=== PATIENT | male | born 1960 | race Caucasian/White ===

== ENCOUNTER 2020-10-10 08:02 | Outpatient (RCR) | payer SELFPAY | END 2020-10-10 23:59 | disposition home or self-care (01) | LOC: ANHAUDIO 08:02 | PROVIDERS: PCP Physician Assistant; Visit Provider Physician Assistant | DX: Z46.1 Encounter for fitting and adjustment of hearing aid (principal) | CPT/HCPCS: 92592 ==

== ENCOUNTER 2021-03-02 11:01 | Observation (INO) | payer MEDICARE, SELFPAY ==
--- NOTE | ~2021-03-02 | XR_ITS ---
EXAMINATION: XR chest 2V EXAM DATE: 03/02/2021 11:53 INDICATION: Chronic cough, hiccups. Torso pain. TECHNIQUE: Frontal and lateral projections of the chest obtained and reviewed. Comparison is made to prior examination from 11/29/2017. FINDINGS: Subsegmental airspace disease in the right midlung zone, right lower lung zone, segmental i n the left lower lobe most likely multifocal pneumonia. A followup chest x-ray in 3-4 weeks, and to r esolution, should be obtained to exclude possibility of underlying cancer. There is some chronic hy perinflation. No pneumothorax or pleural effusion. Cardiomediastinal silhouette is normal. There are no osseous abnormalities identified. IMPRESSION: Bilateral airspace disease most likely multifocal pneumonia. Follow-up in 2-4 weeks to ex clude cancer. If patient does not have pneumonia clinically then consider CT chest at this time. Reviewed, dictated and finalized at location A. IMPRESSION: Bilateral airspace disease most likely multifocal pneumonia. Follow -up in 2-4 weeks to exclude cancer. If patient does not have pneumonia clinical ly then consider CT chest at this time.
--- NOTE | ~2021-03-02 | XR_ITS ---
MODIFIED ESOPHAGRAM HISTORY: Ammonia. Evaluate for aspiration. TECHNIQUE: Modified barium esophagram was performed by speech pathologist under radiologist fluorosco pic guidance. This was recorded on tape. The exam was reviewed on 03/03/2021 10:26 CDT. The DAP for this procedure was 0.6-7 Gycm2. Fluoroscopy time is 0.9 minutes. FINDINGS: Lateral projection of the cervical spine demonstrates normal alignment. There is normal s wallowing function without evidence for aspiration or penetration.. IMPRESSION: 1: Normal swallowing function without aspiration or penetration. 2: Please refer to speech pathologist report for additional detail. Reviewed, dictated and finalized at location A.
--- NOTE | ~2021-03-02 | CT_ITS ---
EXAMINATION: CT abdomen pelvis w con EXAM DATE: 03/02/2021 12:24 INDICATION: Diverticulitis. TECHNIQUE: Spiral CT of the abdomen and pelvis was performed following intravenous injection of 100 m L Omnipaque 350. Axial, coronal and sagittal images of the abdomen and pelvis were reviewed. The do se-length product (DLP) for this examination was 220.06 mGy-cm. The exposure was tailored according to patient size (auto mA exposure control), and iterative reconstruction (ASIR) was used as additiona l dose reduction technique. There is no prior study for comparison. FINDINGS: Subsegmental airspace disease in the right middle lobe, lingula, right lower lobe and more segmental airspace disease in the left lower lobe, with smaller regions in other left lower lobe segm ents. Appearance most consistent with multifocal pneumonia. Cryptogenic organizing pneumonia or other chronic process also possible. Small liver cysts and splenic granulomas. The liver, spleen, adrenal glands and pancreas are otherwi se unremarkable. Gallbladder is unremarkable. No biliary obstruction. Portal and splenic veins are patent. Kidneys enhance symmetrically. There is no hydronephrosis. Bilateral renal cysts up to 2.5 cm on the right. The prostate is unremarkable. The bladder is unremarkable. There is no retroperi toneal or pelvic lymphadenopathy. There is mild scattered arteriosclerotic disease. The appendix is normal. There is mild sigmoid colonic diverticulosis. There is no adjacent inflammat ory change to suggest diverticulitis. The stomach and small bowel are unremarkable. There is expect ed amount of colonic stool. No free intraperitoneal gas. The heart is normal in size. There are no pericardial or pleural effusions. Bilateral hip chronic avascular necrosis, but with intact fem oral head contours. IMPRESSION: 1. Mild sigmoid diverticulosis. No acute findings. 2. Multifocal regions of confluent basilar airspace disease, probably pneumonia. Cryptogenic organiz ing pneumonia or other chronic process not excludable. Correlate with CT chest exam which has been or dered. Reviewed, dictated and finalized at location A. IMPRESSION: 1. Mild sigmoid diverticulosis. No acute findings. 2. Multifocal regions of confluent basilar airspace disease, probably pneumoni a. Cryptogenic organizing pneumonia or other chronic process not excludable. Co rrelate with CT chest exam which has been ordered.
--- NOTE | ~2021-03-02 | CT_ITS ---
EXAMINATION: CT diagnostic chest wo con EXAM DATE: 03/02/2021 13:02 INDICATION: Abnormal chest x-ray. TECHNIQUE: Spiral CT of the chest without contrast. Axial, coronal and sagittal images of the chest were reviewed. Coronal maximum intensity pixel images of chest reviewed. The dose-length product ( DLP) for this examination was 173.00 mGy-cm. The exposure was tailored according to patient size (au to mA exposure control), and iterative reconstruction (ASIR) was used as additional dose reduction te chnique. Comparison is made to prior examination from 06/19/2019. FINDINGS: Interval development of multifocal airspace disease in the right upper lobe anteriorly, ri ght middle lobe, right lower lobe, lingula and left lower lobe appearance most consistent with multif ocal pneumonia. Moderate hyperinflation and emphysema. There are no pleural or pericardial effusions . Tracheobronchial tree is patent. There is no mediastinal, hilar or axillary lymphadenopathy. There is no pneumothorax. Heart normal in size. There is mild to moderate coronary arterial calci fication, arterial sclerosis. Upper abdomen is unremarkable. There is moderate thoracic spondylosi s without osteoblastic or osteolytic lesions identified. IMPRESSION: 1. Multifocal airspace disease most likely pneumonia. Cryptogenic organized pneumonia or other chron ic process not excludable. Consider treatment, follow-up chest x-ray in 2-4 weeks. 2. Moderate emphysema and hyperinflation. Reviewed, dictated and finalized at location A. IMPRESSION: 1. Multifocal airspace disease most likely pneumonia. Cryptogenic organized pn eumonia or other chronic process not excludable. Consider treatment, follow-up chest x-ray in 2-4 weeks. 2. Moderate emphysema and hyperinflation.
[2021-03-02 11:17] VITALS: BP 113/65; PULSE 89; RESP 20; TEMP 37.2; O2SAT 97
[2021-03-02 11:59] LABS: Basophils Absolute Auto 0.1 K/mm3 (0.0-0.1); Basophils Percent Auto 0.5 % (0.2-1.2); Eosinophils Absolute Auto 0.3 K/mm3 (0-0.3); Eosinophils Percent Auto 2.4 % (0-4.4); Hematocrit 35.3 % (42.0-52.0); Hemoglobin 11.5 g/dL (14.0-18.0); Immature Granulocyte Absolute 0.06 K/mm3 (0.00-0.031); Immature Granulocyte Percent A 0.4 % (0-0.5); Lymphocytes Absolute Auto 1.67 K/mm3 (0.9-3.2); Mean Corpuscular HGB Conc 32.6 g/dl (32-36); Mean Corpuscular Volume 85.9 fl (80-100); Mean Platelet Volume 10.3 fl (7.4-10.4); Monocytes Percent Auto 7.2 % (2.6-8.5); Neutrophils Absolute Auto 10.8 K/mm3 (1.3-6.7); Neutrophils Percent Auto 77.5 % (45.5-73.1); Platelet Count Result 383 k/mm3 (150-375); Red Blood Count 4.11 M/mm3 (4.6-6.20); White Blood Count 13.9 K/mm3 (4.5-10.0)
[2021-03-02] MEDS: PROMETHAZINE HCL 25 MG/ML AMPUL 12.5 MG IV PUSH (12:01)
[2021-03-02] MEDS: FAMOTIDINE 20 MG/2 ML VIAL IV PUSH ×2 (12:01→20:05)
[2021-03-02] MEDS: SODIUM CHLORIDE 0.9% IV 1,000 ML 999 ML IV CONT (12:02)
[2021-03-02 12:06] LABS: Alanine Aminotransferase 13 U/L (4-50); Albumin Level 3.6 g/dL (3.5-5.1); Alkaline Phosphatase 54 U/L (38-126); Anion Gap 8 mmol/L (8-16); Aspartate Amino Transferase 20 U/L (17-59); Bilirubin,Total 0.2 mg/dL (0.2-1.3); Blood Urea Nitrogen 9 mg/dL (9-20); Calcium 9.5 mg/dL (8.4-10.2); Carbon Dioxide 25 mmol/L (22-30); Chloride 104 mmol/L (98-107); Estimated CRCL calculation 70 ml/min; Estimated Glomerular Filt Rate > 60; Glucose 103 mg/dL (75-110); Lipase 74 U/L (23-300); Potassium 4.2 mmol/L (3.4-5.0); Sodium 137 mmol/L (137-145)
[2021-03-02] MEDS: chlorproMAZINE HCL 25 MG TABLET PO (12:28)
[2021-03-02 12:47] LABS: Add Urine Microscopic? NO; Appearance Urine Clear (Clear); Bilirubin Urine Negative (Negative); Blood Urine Negative (Negative); Color Urine Straw (Yellow); Glucose Urine UA Negative (Negative); Ketones Urine Negative (Negative); Leukocyte Esterase Ur Negative LEU/UL (Negative); Nitrate Urine Negative (Negative); Protein Urine Negative (Negative); Specific Grav Ur 1.012 (1.001-1.035); Urobilinogen Urine Negative mg/dL (<2.0)
--- NOTE | 2021-03-02 14:06 | ED.GENADULT ---
HPI - General Adult General Chief complaint: Nausea/Vomiting/Diarrhea Stated complaint: hiccups Time Seen by Provider: 03/02/21 11:22 Source: patient, family and RN notes reviewed Mode of arrival: ambulatory Limitations: no limitations History of Present Illness HPI narrative: Patient is a 60-year-old male who presents with cough and nausea and vomiting over the last 5 days roughly patient with history of tobacco abuse notes that he is having trouble keeping any p.o. intake down patient notes aching of the abdomen and chest from coughing and vomiting patient on arrival does not appear distressed patient denies sick contacts patient notes that he has been vaccinated for Covid Related Data Home Medications Medication Instructions Recorded Confirmed budesonide-formoterol [Symbicort] INHALATION 03/02/21 hydrochlorothiazide 03/02/21 03/02/21 losartan 03/02/21 montelukast mg 03/02/21 omeprazole 03/02/21 pravastatin 03/02/21 Allergies Allergy/AdvReac Type Severity Reaction Status Date / Time No Known Allergies Allergy Verified 03/02/21 11:23 Review of Systems Review of Systems: All systems reviewed & are unremarkable except as noted in HPI and below PMFSH Past Medical History Medical History (Updated 03/02/21 @ 14:12 by Hair Negron PA-C) COPD (chronic obstructive pulmonary disease) Hyperlipidemia Hypertension Social History Social History (Updated 03/02/21 @ 14:10 by Hair Negron PA-C) Smoking status: Current every day smoker Gender identity (if verbalized by the patient): Male Exam Narrative: Exam Narrative: GENERAL: Well-appearing, well-nourished, and in no acute distress. HEAD: Normocephalic, atraumatic. EYES: PERRLA and EOMI. ENT: Nares clear, no rhinorrhea or epistaxis. Mucous membranes moist. Oropharynx without tonsillar hypertrophy exudate or other lesions. NECK: Supple. No adenopathy or masses. CHEST: Clear to auscultation. No respiratory distress. No wheezes rales or rhonchi HEART: Regular rate and rhythm. No murmur heard. Normal peripheral pulses. ABDOMEN: Soft, generalized tenderness of the abdomen, nondistended, normal active bowel sounds. EXTREMITIES: Normal range of motion. No edema. SKIN: Warm, dry, no rash. NEURO: No focal deficits. Alert and oriented x3. Cranial nerves II through XII grossly intact PSYCH: Normal mood and affect. Course Course Emergency Course: Patient in the room at this time aware of case findings treatment plan and diagnosis will be brought into the hospital for pneumonia has CT imaging of the chest and abdomen patient's inability to tolerate p.o. intake coupled with his pneumonia will be placed in hospital. Patient agrees with this plan hemodynamically stable Consultations Consultation #1: Discussed case with the hospitalist who is agreed to accept the patient Date: 03/02/21 Time: 14:11 Vital Signs Vital signs: Vital Signs Temperature 98.9 F 03/02/21 11:17 Pulse Rate 89 03/02/21 11:17 Respiratory Rate 20 03/02/21 11:17 Blood Pressure 113/65 03/02/21 11:17 Pulse Oximetry 97 03/02/21 11:17 Temperature 98.9 F 03/02/21 11:17 Pulse Rate 89 03/02/21 11:17 Respiratory Rate 20 03/02/21 11:17 Blood Pressure 113/65 03/02/21 11:17 Pulse Oximetry 97 03/02/21 11:17 Medical Decision Making MDM Narrative Medical decision making narrative: Patient with pneumonia nausea vomiting and will be brought into the hospital for this patient agrees with this plan hemodynamically stable Vital Signs Vital Signs: Vital Signs Temperature 98.9 F 03/02/21 11:17 Pulse Rate 89 03/02/21 11:17 Respiratory Rate 20 03/02/21 11:17 Blood Pressure 113/65 03/02/21 11:17 Pulse Oximetry 97 03/02/21 11:17 Temperature 98.9 F 03/02/21 11:17 Pulse Rate 89 03/02/21 11:17 Respiratory Rate 20 03/02/21 11:17 Blood Pressure 113/65 03/02/21 11:17 Pulse Oximetry 97 03/02/21 11:17 Lab Data Result d
[2021-03-02 14:33] VITALS: BP 132/68; PULSE 78; RESP 18; O2SAT 99
[2021-03-02 16:00] VITALS: BP 113/56; PULSE 69; RESP 16; TEMP 35.7; O2SAT 91; BMI 21.3
[2021-03-02 16:05] VITALS: BMI 21.3
--- NOTE | 2021-03-02 16:08 | PC.NURSE ---
This patient, Mark Hines, was admitted to Medical Room 257-01. Patient/family oriented to hospital policies and general routines including ID bracelet, bed and alarms, visiting hours, pain management, procedures, bathroom and other care routines, personal items, smoking policy, room service/diet, and visiting hours. Information on how to activate the Rapid Response Team has been discussed. Patient/Family are encouraged to report perceived risks to care and to ask questions if they do not understand what they are told or what they should do.
[2021-03-02 19:50] VITALS: PULSE 77; RESP 24; O2SAT 95
[2021-03-02] MEDS: IPRATROPIUM BR 0.02% INH SOLN 0.5 MG/2.5 ML VIAL INHALATION (19:50)
[2021-03-02] MEDS: ALBUTEROL SULFATE NEB 2.5 MG/0.5 ML INH 5 MG INHALATION (19:50)
[2021-03-02 19:59] VITALS: PULSE 73; RESP 20
[2021-03-02 20:00] VITALS: BP 128/50; PULSE 73; RESP 16; TEMP 36.6; O2SAT 99
[2021-03-02] MEDS: LACTATED RINGERS 1,000 ML 75 ML IV CONT (20:05)
--- NOTE | 2021-03-02 22:45 | PM.IMHP ---
H&P: HPI History of Present Illness Date/Time: 03/02/21 22:45 Chief Complaint: Nausea and vomiting. Narrative: This is a 60-year-old male smoker with COPD, hypertension, hyperlipidemia, and glaucoma who presented the emergency department earlier today via private vehicle from home for evaluation of nausea and vomiting over the last 1.5 weeks. He goes on to report issues with belching and hiccuping for nearly a year and tells me that is not unusual for him to vomit when he is belching or having a hiccupping fit. He has seen multiple specialists to include ENT, GI, and pulmonology to no avail. In any regard, his symptoms seem to have been worse over the past 1.5 weeks, to the point where he is now having discomfort in his ?torso? which he thinks is due to the vomiting and hiccuping. He has also had a dry cough. There were no acute abdominal or pelvic findings noted on CT however there were multifocal regions of airspace disease noted in the lungs. A subsequent chest CT showed multifocal pneumonia and he is being admitted in this setting. He denies symptoms of GERD and indigestion. He denies dysphagia and does not believe he has had any episodes of aspiration. He completed his COVID vaccination series a little over a month ago. No sinus congestion, rhinorrhea, otalgia, or odynophagia. He denies chest pain and pleuritic pain. He denies sick contacts and recent travel. No fever, chills, or sweats. Since receiving antiemetics he has been able to hold and dinner and is feeling pretty good at this time. Review of Systems Review of Systems: Narrative: Twelve systems were reviewed with pertinent positives and negatives as per HPI. 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 He has glaucoma in the left eye and is legally blind due to that. Seems to be somewhat hard of hearing. He is not having any significant shortness of breath. No chest pain or pleuritic pain. No palpitations. He denies diarrhea. Except as documented, all other systems were reviewed and are negative. [facility] Past Medical History Medical History (Updated 03/02/21 @ 23:55 by Shalonda Sebastian PA-C) Chronic obstructive pulmonary disease Glaucoma Legally blind. Hyperlipidemia Hypertension Surgical History Surgical History (Updated 03/02/21 @ 23:55 by Shalonda Sebastian PA-C) History of enucleation of eye Right, secondary to recurrent infection. Family History Family History Grandparent Acute myocardial infarction Mother Acute myocardial infarction Father Acute myocardial infarction Social History Social History (Updated 03/02/21 @ 23:56 by Shalonda Sebastian PA-C) Social History: Surrogate decision maker: Svitlana Hines, . Code status: Full code. Smoking packs per day: 0.5 Smoking cigarettes per day: 10.0 Years smoked: 40 Smoking pack-years: 20.00 Smoking status: Current every day smoker Tobacco type: cigarettes Alcohol intake: current Drinks per week: 4 Substance use: never Substance use type: does not use Additional living arrangements comments: The patient lives with his in [place]. 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 Gender identity (if verbalized by the patient): Male Spiritual care concerns: No Meds Home Medications and Allergies Home Medications Medication Instructions Recorded Confirmed Type albuterol sulfate 1 puff INHALATION PRN PRN 03/02/21 03/02/21 History budesonide-formoterol [Symbicort] 1 puff INHALATION BID 03/02/21 03/02/21 History hydrochlorothiazide 12.5 mg PO DAILY 03/02/21 03/02/21 History levobunolol 1 drp LEFT EYE BID 03/02/21 03/02/21 History losartan 50 mg PO DAILY 03/02/21 03/02/21 History montelukast 10 mg PO DAILY 03/02/21 03/02/21 History pravastatin 80 mg PO DAILY 03/02/21 03/02/21 History jose
[2021-03-03] VITALS (16 sets, daily range): BP systolic 114–139; BP diastolic 45–65; PULSE 72–90; RESP 16–20; TEMP 36.1–37.4; O2SAT 97–100; BMI 21.3
[2021-03-03] MEDS: IPRATROPIUM BR 0.02% INH SOLN 0.5 MG/2.5 ML VIAL INHALATION ×4 (01:39→20:28)
[2021-03-03] MEDS: ALBUTEROL SULFATE NEB 2.5 MG/0.5 ML INH 5 MG INHALATION ×4 (01:39→20:28)
[2021-03-03 05:48] LABS: Basophils Absolute Auto 0.1 K/mm3 (0.0-0.1); Basophils Percent Auto 0.6 % (0.2-1.2); Eosinophils Absolute Auto 0.4 K/mm3 (0-0.3); Eosinophils Percent Auto 2.8 % (0-4.4); Hematocrit 33.3 % (42.0-52.0); Hemoglobin 10.6 g/dL (14.0-18.0); Immature Granulocyte Absolute 0.06 K/mm3 (0.00-0.031); Immature Granulocyte Percent A 0.5 % (0-0.5); Lymphocytes Absolute Auto 1.59 K/mm3 (0.9-3.2); Lymphocytes Percent Auto 12.1 % (18.3-44.2); Mean Corpuscular HGB Conc 31.8 g/dl (32-36); Mean Corpuscular Hemoglobin 27.3 pg (26-34); Mean Corpuscular Volume 85.8 fl (80-100); Mean Platelet Volume 10.1 fl (7.4-10.4); Monocytes Absolute Auto 0.6 K/mm3 (0.1-0.6); Monocytes Percent Auto 4.3 % (2.6-8.5); Neutrophils Absolute Auto 10.5 K/mm3 (1.3-6.7); Neutrophils Percent Auto 79.7 % (45.5-73.1); Platelet Count Result 345 k/mm3 (150-375); Red Blood Count 3.88 M/mm3 (4.6-6.20); White Blood Count 13.2 K/mm3 (4.5-10.0)
[2021-03-03 06:00] LABS: Anion Gap 9 mmol/L (8-16); Blood Urea Nitrogen 9 mg/dL (9-20); CRP 7.6 mg/dL (<1.0); Calcium 9.5 mg/dL (8.4-10.2); Carbon Dioxide 28 mmol/L (22-30); Chloride 103 mmol/L (98-107); Estimated CRCL calculation 70 ml/min; Estimated Glomerular Filt Rate > 60; Glucose 105 mg/dL (75-110); Potassium 4.3 mmol/L (3.4-5.0); Sodium 140 mmol/L (137-145)
[2021-03-03 06:14] LABS: Iron 14 ug/dL (49-181)
[2021-03-03 06:24] LABS: Percent Iron Saturation 8 % (20-50)
[2021-03-03 06:31] LABS: Procalcitonin 0.1 ng/mL
[2021-03-03 07:05] LABS: Vitamin B12 > 1000.0 pg/mL (239-931)
[2021-03-03] MEDS: PRAVASTATIN SODIUM 20 MG TABLET 80 MG PO (08:10)
[2021-03-03] MEDS: hydroCHLOROthiazide 12.5 MG CAPSULE PO (08:11)
[2021-03-03] MEDS: MONTELUKAST SODIUM 10 MG TABLET PO (08:11)
[2021-03-03] MEDS: guaiFENesin 12 HR 600 MG TABCR PO ×2 (08:11→20:47)
[2021-03-03] MEDS: LOSARTAN POTASSIUM 50 MG TABLET PO (08:11)
[2021-03-03] MEDS: ENOXAPARIN 40 MG/0.4 ML SYRINGE SUB-Q (08:12)
[2021-03-03] MEDS: TIMOLOL MALEATE 0.5% OP SOLN 5 ML BOTTLE 1 DROP LEFT EYE ×2 (08:12→20:47)
--- NOTE | 2021-03-03 10:01 | PCSTNOTE ---
Please refer to the Modified Barium Swallow Evaluation in the EMR.
[2021-03-03] MEDS: IRON SUCROSE COMPLEX 100 MG in SODIUM CHLORIDE 0.9% IV 50 ML 220 MG IVPB (10:17)
--- NOTE | 2021-03-03 10:54 | PM.IMPN ---
Progress Note: A&P Assessment and Plan (1) Multifocal pneumonia: Code(s): J18.9 - Pneumonia, unspecified organism Status: Acute Assessment and Plan: He was found to have evidence of multifocal pneumonia on CT of the abdomen/pelvis and subsequent chest CT confirms such. He has mild leukocytosis. He is afebrile. He is maintaining adequate oxygenation on room air. He has been started on azithromycin and ceftriaxone per antibiotic stewardship recommendations. Mucinex and Cornet ordered to help mobilize secretions. Attempt sputum for culture. Urinary Legionella and pneumococcal antigens pending Given frequent belching/hiccups, swallow study was ordered to assess for aspiration. MBS with normal swallow function and no evidence for aspiration. (2) Normocytic anemia: Code(s): D64.9 - Anemia, unspecified Status: Acute Assessment and Plan: Iron panel reviewed and appears consistent with anemia of chronic disease. Vital signs are stable and there is no evidence of blood loss. Monitor H&H closely and transfuse as needed to stable hemoglobin Given severely decreased iron saturation, will administer IV Venofer (3) Chronic obstructive pulmonary disease: Code(s): J44.9 - Chronic obstructive pulmonary disease, unspecified Status: Acute Assessment and Plan: Faint wheezing noted by initial provider but not evident on my exam today. He has no supplemental O2 requirements. Continue scheduled nebulized breathing treatments Holding off on systemic steroids at this time given overall improvement Continue home symbicort, montelukast, and prn albuterol (4) Hypertension: Code(s): I10 - Essential (primary) hypertension Status: Chronic Assessment and Plan: Blood pressures reviewed and have been well controlled. Last BP 115/59. Continue losartan and hydrochlorothiazide Subjective Date/time seen: 03/03/21 10:54 Interval history: Date of service: 03/03/2020 Mark Hines is a 60-year-old male with a history of COPD, hyperlipidemia, and hypertension who is seen in follow-up for pneumonia. He is feeling fairly well today and overall seems to be improving. He denies shortness of breath, cough, wheezing, orthopnea, PND, or chest pain. He continues to complain of hiccuping. He was able to eat his breakfast this morning without difficulty. He did not have nausea or vomiting. He does note some soreness in his chest and abdomen that he believes is from vomiting, and notes that this is improving. He denies urinary symptoms. Last bowel movement was 2-3 days ago. Denies diarrhea. He has been able to get up and ambulate to the bathroom without difficulty and denies dizziness or lightheadedness. Review of Systems Review of Systems: All systems reviewed & are unremarkable except as noted in HPI and below Exam Narrative: Exam Narrative: Mr. Hines is a well-nourished 60-year-old male who is sitting in a chair by the bedside. He appears comfortable and is in NARD. Neuro: awake, alert and oriented x4, speech clear, no focal neuro deficits noted HEENMT: normocephalic, atraumatic, right eye surgically removed, left eye is cloudy, moist oral mucosa Neck: supple, no lymphadenopathy Respiratory: diminished breath sounds bilaterally without obvious wheezes, crackles, or rhonchi, nonlabored breathing Cardio: regular rate, regular rhythm with S1-S2 Abdomen: nondistended, normoactive bowel sounds, soft, nontender to palpation Extremities: no edema, erythema, or tenderness to palpation, DP pulses 2+ bilaterally Skin: no rashes or lesions, warm and dry Psych: pleasant and cooperative, appropriate mood and affect, judgment and insight intact Objective Data Vital Signs Vital Signs: Vital Signs - 24 hr 03/02/21 11:17 03/02/21 14:33 03/02/21 16:00 Temperature 98.9 F 96.2 F L Pulse Rate 89 78 69 Respiratory Rate 20 18 16 Blood Pressure 113/65 132/
[2021-03-03 17:02] LABS: CRP 13.1 mg/dL (<1.0)
[2021-03-03] MEDS: BRINZOLAMIDE 1% OPHTH SUSP 10 ML 1 DROP LEFT EYE (20:47)
--- NOTE | 2021-03-03 20:49 | PC.NURSE ---
Dexamethesone eye drop not available
[2021-03-04] VITALS (15 sets, daily range): BP systolic 103–123; BP diastolic 55–81; PULSE 68–94; RESP 16–20; TEMP 35.9–37.3; O2SAT 94–100
[2021-03-04] MEDS: ALBUTEROL SULFATE NEB 2.5 MG/0.5 ML INH 5 MG INHALATION ×4 (01:59→20:15)
[2021-03-04] MEDS: IPRATROPIUM BR 0.02% INH SOLN 0.5 MG/2.5 ML VIAL INHALATION ×4 (02:00→20:15)
[2021-03-04 05:45] LABS: Hematocrit 34.3 % (42.0-52.0); Hemoglobin 11.3 g/dL (14.0-18.0); Mean Corpuscular HGB Conc 32.9 g/dl (32-36); Mean Corpuscular Hemoglobin 27.8 pg (26-34); Mean Corpuscular Volume 84.5 fl (80-100); Mean Platelet Volume 9.9 fl (7.4-10.4); Platelet Count Result 366 k/mm3 (150-375); Red Blood Count 4.06 M/mm3 (4.6-6.20); Red Cell Distribution Width 13.7 % (11.5-14.5); White Blood Count 8.8 K/mm3 (4.5-10.0)
[2021-03-04 05:56] LABS: Anion Gap 8 mmol/L (8-16); Blood Urea Nitrogen 10 mg/dL (9-20); Calcium 9.8 mg/dL (8.4-10.2); Carbon Dioxide 31 mmol/L (22-30); Chloride 102 mmol/L (98-107); Estimated CRCL calculation 63 ml/min; Estimated Glomerular Filt Rate > 60; Glucose 105 mg/dL (75-110); Potassium 5.1 mmol/L (3.4-5.0); Sodium 141 mmol/L (137-145)
[2021-03-04] MEDS: TIMOLOL MALEATE 0.5% OP SOLN 5 ML BOTTLE 1 DROP LEFT EYE ×2 (08:37→20:45)
[2021-03-04] MEDS: MONTELUKAST SODIUM 10 MG TABLET PO (08:38)
[2021-03-04] MEDS: hydroCHLOROthiazide 12.5 MG CAPSULE PO (08:38)
[2021-03-04] MEDS: PRAVASTATIN SODIUM 20 MG TABLET 80 MG PO (08:38)
[2021-03-04] MEDS: LOSARTAN POTASSIUM 50 MG TABLET PO (08:38)
[2021-03-04] MEDS: guaiFENesin 12 HR 600 MG TABCR PO ×2 (08:38→20:45)
[2021-03-04] MEDS: ENOXAPARIN 40 MG/0.4 ML SYRINGE SUB-Q (08:39)
[2021-03-04] MEDS: BRINZOLAMIDE 1% OPHTH SUSP 10 ML 1 DROP LEFT EYE ×2 (08:44→20:45)
--- NOTE | 2021-03-04 15:04 | PM.IMPN ---
Progress Note: A&P Assessment and Plan (1) Multifocal pneumonia: Code(s): J18.9 - Pneumonia, unspecified organism Status: Acute Assessment and Plan: He was found to have evidence of multifocal pneumonia on CT of the abdomen/pelvis and subsequent chest CT confirms such. He has mild leukocytosis. He is afebrile. He is maintaining adequate oxygenation on room air. He has been started on azithromycin and ceftriaxone per antibiotic stewardship recommendations. Mucinex and Cornet ordered to help mobilize secretions. Attempt sputum for culture. Urinary Legionella and pneumococcal antigens pending WBC is trending down Trend labs will possibly transition to orals and send home tomorrow Given frequent belching/hiccups, swallow study was ordered to assess for aspiration. MBS with normal swallow function and no evidence for aspiration. (2) Normocytic anemia: Code(s): D64.9 - Anemia, unspecified Status: Acute Assessment and Plan: Iron panel reviewed and appears consistent with anemia of chronic disease. Vital signs are stable and there is no evidence of blood loss. Monitor H&H closely and transfuse as needed to stable hemoglobin Given severely decreased iron saturation, will administer IV Venofer H/H stable will trend Lab in the am (3) Chronic obstructive pulmonary disease: Code(s): J44.9 - Chronic obstructive pulmonary disease, unspecified Status: Acute Assessment and Plan: Faint wheezing noted by initial provider but not evident on my exam today. He has no supplemental O2 requirements. Continue scheduled nebulized breathing treatments Holding off on systemic steroids at this time given overall improvement Continue home symbicort, montelukast, and prn albuterol (4) Hypertension: Code(s): I10 - Essential (primary) hypertension Status: Chronic Assessment and Plan: Blood pressures reviewed and have been well controlled. Last BP 115/59. Continue losartan and hydrochlorothiazide (5) Hiccup: Code(s): R06.6 - Hiccough Status: Acute Assessment and Plan: Patient stated that he has had these hiccups since Apr work him up for cardiac ischemia Troponins ordered and pending Subjective Date/time seen: 03/04/21 14:35 Mark Hines is a 60-year-old male with a history of COPD, hyperlipidemia, and hypertension who is seen in follow-up for pneumonia. Patient still complains of having hiccups which he stair intermittent coming go. He also stated that he has been eating okay any did have a good bowel movement this morning. He does have a could dry cough. He also stated that before coming in here he also was having chest pain and he was afraid EKG to have nausea vomiting. Patient denies shortness of breath, nausea vomiting, abdominal pain, fevers chills, lightheadedness, dizziness, poor appetite, weakness, fatigue. Patient is very concerned about the hiccups. He has seen many providers over the last few months about these hiccups with no success. Patient denies knowing to have rhythm changes. Patient also denies palpitations. I am going to work up this patient for cardiac reasons just to be sure that this is not underlying for his hiccups. Review of Systems Review of Systems: All systems reviewed & are unremarkable except as noted in HPI and below Exam Const: General: cooperative, healthy appearing, comfortable, no acute distress, well developed, alert and awake Nutritional Appearance: well nourished Orientation/consciousness: patient oriented x3 Limitations: no limitations HENMT: Head: normal to inspection Ears: hearing grossly normal bilaterally General nose exam: Normal external nose present Mouth: Yes Normal oral and palatal mucosa present, Yes lip normal and Yes tongue normal Teeth and gingiva: abnormal tooth and associated gingiva and poor dentition Eyes: General: appearance lele
[2021-03-04 16:32] LABS: Troponin I < 0.012 ng/mL (0.000-0.034)
[2021-03-04 18:43] LABS: Troponin I < 0.012 ng/mL (0.000-0.034)
[2021-03-04 23:19] LABS: Troponin I < 0.012 ng/mL (0.000-0.034)
[2021-03-05] VITALS (11 sets, daily range): BP systolic 92–109; BP diastolic 47–57; PULSE 68–97; RESP 16–24; TEMP 35.6–36.8; O2SAT 97–99
[2021-03-05] MEDS: ALBUTEROL SULFATE NEB 2.5 MG/0.5 ML INH 5 MG INHALATION ×3 (02:02→14:43)
[2021-03-05] MEDS: IPRATROPIUM BR 0.02% INH SOLN 0.5 MG/2.5 ML VIAL INHALATION ×3 (02:02→14:43)
[2021-03-05 05:35] LABS: Basophils Absolute Auto 0.1 K/mm3 (0.0-0.1); Basophils Percent Auto 0.7 % (0.2-1.2); Eosinophils Absolute Auto 0.8 K/mm3 (0-0.3); Hemoglobin 11.5 g/dL (14.0-18.0); Immature Granulocyte Absolute 0.04 K/mm3 (0.00-0.031); Immature Granulocyte Percent A 0.4 % (0-0.5); Lymphocytes Percent Auto 21.7 % (18.3-44.2); Mean Corpuscular HGB Conc 31.9 g/dl (32-36); Mean Corpuscular Hemoglobin 27.4 pg (26-34); Mean Corpuscular Volume 85.7 fl (80-100); Mean Platelet Volume 9.9 fl (7.4-10.4); Monocytes Absolute Auto 0.5 K/mm3 (0.1-0.6); Monocytes Percent Auto 5.2 % (2.6-8.5); Neutrophils Absolute Auto 6.2 K/mm3 (1.3-6.7); Platelet Count Result 379 k/mm3 (150-375); Red Cell Distribution Width 13.7 % (11.5-14.5); White Blood Count 9.7 K/mm3 (4.5-10.0)
[2021-03-05 05:57] LABS: Alanine Aminotransferase 18 U/L (4-50); Albumin Level 3.7 g/dL (3.5-5.1); Alkaline Phosphatase 52 U/L (38-126); Anion Gap 10 mmol/L (8-16); Aspartate Amino Transferase 29 U/L (17-59); Bilirubin,Total 0.2 mg/dL (0.2-1.3); Blood Urea Nitrogen 13 mg/dL (9-20); Carbon Dioxide 29 mmol/L (22-30); Chloride 100 mmol/L (98-107); Estimated CRCL calculation 70 ml/min; Estimated Glomerular Filt Rate > 60; Glucose 103 mg/dL (75-110); Magnesium 2.2 mg/dL (1.6-2.3); Potassium 4.4 mmol/L (3.4-5.0); Sodium 139 mmol/L (137-145)
[2021-03-05] MEDS: hydroCHLOROthiazide 12.5 MG CAPSULE PO (08:20)
[2021-03-05] MEDS: guaiFENesin 12 HR 600 MG TABCR PO (08:20)
[2021-03-05] MEDS: ENOXAPARIN 40 MG/0.4 ML SYRINGE SUB-Q (08:21)
[2021-03-05] MEDS: LOSARTAN POTASSIUM 50 MG TABLET PO (08:21)
[2021-03-05] MEDS: PRAVASTATIN SODIUM 20 MG TABLET 80 MG PO (08:21)
[2021-03-05] MEDS: MONTELUKAST SODIUM 10 MG TABLET PO (08:21)
[2021-03-05] MEDS: TIMOLOL MALEATE 0.5% OP SOLN 5 ML BOTTLE 1 DROP LEFT EYE (08:22)
[2021-03-05] MEDS: BRINZOLAMIDE 1% OPHTH SUSP 10 ML 1 DROP LEFT EYE (08:22)
--- NOTE | 2021-03-05 15:12 | PM.DS ---
DS: Admitting Diagnosis Admitting Diagnosis Admitting Diagnosis: Pneumonia DS: Discharge Diagnosis Discharge Diagnosis (1) Multifocal pneumonia: Code(s): J18.9 - Pneumonia, unspecified organism Status: Acute Assessment and Plan: He was found to have evidence of multifocal pneumonia on CT of the abdomen/pelvis and subsequent chest CT confirms such. He has mild leukocytosis. He is afebrile. He is maintaining adequate oxygenation on room air. He has been started on azithromycin and ceftriaxone per antibiotic stewardship recommendations. Mucinex and Cornet ordered to help mobilize secretions. Attempt sputum for culture. Urinary Legionella and pneumococcal antigens pending WBC is trending down Trend labs will possibly transition to orals and send home tomorrow Given frequent belching/hiccups, swallow study was ordered to assess for aspiration. MBS with normal swallow function and no evidence for aspiration. Amoxicillin and azithromycin at home PO (2) Normocytic anemia: Code(s): D64.9 - Anemia, unspecified Status: Acute Assessment and Plan: Iron panel reviewed and appears consistent with anemia of chronic disease. Vital signs are stable and there is no evidence of blood loss. Monitor H&H closely and transfuse as needed to stable hemoglobin Given severely decreased iron saturation, will administer IV Venofer H/H stable will trend Lab in the am (3) Chronic obstructive pulmonary disease: Code(s): J44.9 - Chronic obstructive pulmonary disease, unspecified Status: Acute Assessment and Plan: Faint wheezing noted by initial provider but not evident on my exam today. He has no supplemental O2 requirements. Continue scheduled nebulized breathing treatments Holding off on systemic steroids at this time given overall improvement Continue home symbicort, montelukast, and prn albuterol (4) Hypertension: Code(s): I10 - Essential (primary) hypertension Status: Chronic Assessment and Plan: Blood pressures reviewed and have been well controlled. Last BP 115/59. Continue losartan and hydrochlorothiazide (5) Hiccup: Code(s): R06.6 - Hiccough Status: Acute Assessment and Plan: Patient stated that he has had these hiccups since Apr work him up for cardiac ischemia Troponins ordered and pending DS: Summary Hospital Course Hospital Course: Mark Hines is a 60-year-old male with a history of COPD, hyperlipidemia, and hypertension who is seen in follow-up for pneumonia. This patient was treated with IV antibiotics since admission. He has also been getting better and has not had as much diarrhea. He does follow with pulmonary and primary. He has been worried about the hiccups since admission and stated that they are chronic. The patient had negative trops and did not have any chest pain or palpitations that would indicate he is having a cardiac episode. Patient will need to follow up with pulmonology and primary. Will recommend a GI doctor as well to maybe help with the hiccups. Patient denies shortness of breath, nausea vomiting, abdominal pain, fevers chills, lightheadedness, dizziness, poor appetite, weakness, fatigue. Time spent discussing smoking cessation with patient: 3 to 10 minutes Status at Discharge Functional status at discharge: independent ambulation Overall status at discharge: patient is back to baseline Time Spent with Patient Time attestation: Total time spent providing and/or coordinating discharge services: Documentation, result review, lab testing, diagnostic review and care planning Time spent: Greater than 30 minutes Exam Const: General: cooperative, healthy appearing, comfortable, no acute distress, well developed, alert and awake Nutritional Appearance: well nourished Orientation/consciousness: patient oriented x3 Limitations: no limitations HENMT: Head: normal
[2021-03-05 23:36] LABS: Pneumococcal Antigen Urine Not Detected (Not Detected)
[2021-03-06 05:39] LABS: Legionella pneumophila Ag Ur Not Detected (Not Detected)
== END 2021-03-05 16:40 | disposition home or self-care (01) ==
LOC: ANHED 14:12 → ANH2MED 14:49
PROVIDERS: Emergency Medicine Emergency Medical Services; Nurse Practitioner; Physician Assistant; Admitting Provider Internal Medicine; Emergency Provider Emergency Medicine; PCP Physician Assistant; Visit Provider Internal Medicine
DX: J44.0 Chronic obstructive pulmonary disease with (acute) lower respiratory infection (principal); J18.9 Pneumonia, unspecified organism; I10 Essential (primary) hypertension; D64.9 Anemia, unspecified; E78.5 Hyperlipidemia, unspecified; H54.8 Legal blindness, as defined in USA; H40.9 Unspecified glaucoma; R06.6 Hiccough; F17.210 Nicotine dependence, cigarettes, uncomplicated; Z90.01 Acquired absence of eye; Z79.51 Long term (current) use of inhaled steroids
CPT/HCPCS: 36415; 71046; 71250; 74177; 80048; 80053; 81003; 82607; 82728; 82746; 83540; 83550; 83690; 83735; 84145; 84443; 84484; 85025; 85027; 86140; 87449; 87899; 92611; 94640; 94667; 94668; 96365; 96366; 96367; 96372; 96375; 99285; A9270; G0378; J0131; J0456; J0696; J1650; J1756; J2550; J7030; J7120; Q9967

== ENCOUNTER 2021-03-29 14:58 | Observation (INO) | payer MEDICARE, SELFPAY ==
[2021-03-29] VITALS (10 sets, daily range): BP systolic 96–155; BP diastolic 60–84; PULSE 65–85; RESP 12–98; TEMP 36.1–36.8; O2SAT 97–100; BMI 21.0
--- NOTE | ~2021-03-29 | XR_ITS ---
XR chest 1V portable 03/29/2021 16:27 Indication: Nausea and vomiting. Dyspnea. Procedure: AP portable chest Comparison: 03/02/2021 Findings: There is bilateral infiltrates of the mid and lower lung zones. Heart size normal. No pleur al effusion or pneumothorax. No acute osseous abnormality. Impression: 1: Bilateral infiltrates of the mid and lower lung zones which may represent pneumonia or edema. Reviewed, dictated and finalized at location A. Impression: 1: Bilateral infiltrates of the mid and lower lung zones which may represent pn eumonia or edema.
--- NOTE | ~2021-03-29 | CT_ITS ---
EXAMINATION:CT chest high resolution wo co DATE: 03/31/2021 03:08 INDICATION: Abnormal chest radiograph. TECHNIQUE: Computed tomography (CT) of the chest was performed without intravenous contrast. Automate d exposure control and iterative reconstruction technique were employed. The dose-length product (DLP ) was 146.70 mGy-cm. COMPARISON: Chest CT 03/02/2021, chest single view 03/29/2021 FINDINGS: There are calcified pleural plaques on the left. Calcified left lung nodules and calcified left hilar and mediastinal lymph nodes are consistent with old granulomatous disease. There are patch y airspace opacities and centrilobular nodules and tree-in-bud opacities involving all lobes with a l ower lung predominance. There is a trace left pleural effusion. The heart size is normal. There are c oronary artery calcifications. No pericardial effusion. There is a small sliding hiatal hernia. Calci fications in the spleen are consistent with old granulomatous disease. There is kyphosis of thoracic spine. There is mild chronic anterior wedging of multiple vertebral bodies. There are bridging endpla te osteophytes at multiple levels in the spine, consistent with diffuse idiopathic skeletal hyperosto sis (DISH). There is severe cervical spondylosis. IMPRESSION: 1. Multifocal pneumonia with a lower lung predominance with some areas of improvement and some areas of worsening when compared 03/02/2021. Reviewed, dictated and finalized at location A. IMPRESSION: 1. Multifocal pneumonia with a lower lung predominance with some areas of impro vement and some areas of worsening when compared 03/02/2021.
[2021-03-29 15:33] LABS: Basophils Percent Auto 0.4 % (0.2-1.2); Eosinophils Absolute Auto 0.2 K/mm3 (0-0.3); Hematocrit 33.8 % (42.0-52.0); Hemoglobin 11.4 g/dL (14.0-18.0); Immature Granulocyte Absolute 0.03 K/mm3 (0.00-0.031); Immature Granulocyte Percent A 0.3 % (0-0.5); Lymphocytes Absolute Auto 2.06 K/mm3 (0.9-3.2); Lymphocytes Percent Auto 19.6 % (18.3-44.2); Mean Corpuscular HGB Conc 33.7 g/dl (32-36); Mean Corpuscular Hemoglobin 27.7 pg (26-34); Mean Corpuscular Volume 82.2 fl (80-100); Mean Platelet Volume 10.1 fl (7.4-10.4); Monocytes Absolute Auto 0.4 K/mm3 (0.1-0.6); Monocytes Percent Auto 3.9 % (2.6-8.5); Neutrophils Absolute Auto 7.8 K/mm3 (1.3-6.7); Neutrophils Percent Auto 73.8 % (45.5-73.1); Platelet Count Result 199 k/mm3 (150-375); Red Blood Count 4.11 M/mm3 (4.6-6.20); Red Cell Distribution Width 14.6 % (11.5-14.5); White Blood Count 10.5 K/mm3 (4.5-10.0)
[2021-03-29] MEDS: SODIUM CHLORIDE 0.9% IV 1,000 ML 999 ML IV CONT (15:34)
[2021-03-29] MEDS: ONDANSETRON INJ 4 MG/2 ML VIAL IV PUSH (15:34)
[2021-03-29 15:50] LABS: Alanine Aminotransferase 13 U/L (4-50); Alkaline Phosphatase 64 U/L (38-126); Anion Gap 9 mmol/L (8-16); Aspartate Amino Transferase 24 U/L (17-59); Bilirubin,Total 0.7 mg/dL (0.2-1.3); Blood Urea Nitrogen 6 mg/dL (9-20); Calcium 8.6 mg/dL (8.4-10.2); Carbon Dioxide 23 mmol/L (22-30); Chloride 83 mmol/L (98-107); Estimated CRCL calculation 98 ml/min; Estimated Glomerular Filt Rate > 60; Glucose 99 mg/dL (75-110); Lipase 64 U/L (23-300); Potassium 3.9 mmol/L (3.4-5.0); Sodium 115 mmol/L (137-145)
--- NOTE | 2021-03-29 17:31 | ED.NAVMDI ---
HPI - Nausea/Vomiting/Diarrhea General Chief complaint: Nausea/Vomiting/Diarrhea Stated complaint: abdominal pain with vomiting. Hiccups for a year Time Seen by Provider: 03/29/21 15:06 History of Present Illness HPI Narrative: Patient is a 60-year-old male who presents ER with abdominal pain as well as vomiting and intractable hiccups. Recently admitted to the hospital for pneumonia. Patient reports normal bowel movements and passage of gas. Reports today he has developed significant upper abdominal pain related to his hiccups vomiting. No fevers or chills or sweats. No chest pain or chest pressure. He has found no alleviating factors. Patient has attempted drinking water P daily to quell his hiccups. Related Data Home Medications Medication Instructions Recorded Confirmed albuterol sulfate 1 puff INHALATION PRN PRN 03/02/21 03/29/21 budesonide-formoterol [Symbicort] 1 puff INHALATION BID 03/02/21 03/29/21 hydrochlorothiazide 12.5 mg PO DAILY 03/02/21 03/29/21 losartan 50 mg PO DAILY 03/02/21 03/29/21 montelukast 10 mg PO DAILY 03/02/21 03/29/21 pravastatin 80 mg PO DAILY 03/02/21 03/29/21 timolol maleate 1 drp LEFT EYE TID 03/02/21 03/29/21 brinzolamide [Azopt] 1 drp LEFT EYE TID 03/03/21 03/29/21 dexamethasone 1 drp EACH EYE Q12H 03/03/21 03/29/21 cholecalciferol (vitamin D3) 25 mcg PO DAILY 03/29/21 03/29/21 [Vitamin D3] cyanocobalamin (vitamin B-12) 100 mcg PO DAILY 03/29/21 03/29/21 [Senior Vitamin B-12] Allergies Allergy/AdvReac Type Severity Reaction Status Date / Time No Known Allergies Allergy Verified 03/02/21 17:19 Review of Systems Review of Systems: All systems reviewed & are unremarkable except as noted in HPI and below Constitutional: Constitutional: Denies chills, Denies fever(s) and Denies weakness ENT: Denies nasal congestion and Denies sore throat Cardiovascular: Cardiovascular: Denies chest pain and Denies radiating jaw, neck or arm pain Respiratory: Respiratory: Denies cough and Denies dyspnea Gastrointestinal: Gastrointestinal: Reports abdominal pain, Denies bloating, Denies constipation, Denies diarrhea, Reports nausea and Reports vomiting Genitourinary: Genitourinary: Denies hematuria, Denies dysuria and Reports urinary frequency PMFSH Past Medical History Medical History (Updated 03/29/21 @ 23:05 by Nelson Barrientos MD) Anemia of chronic disease Chronic obstructive pulmonary disease Glaucoma Legally blind. Hyperlipidemia Hypertension Tobacco abuse Surgical History Surgical History History of enucleation of eye Right, secondary to recurrent infection. Family History Family History Grandparent Acute myocardial infarction Mother Acute myocardial infarction Father Acute myocardial infarction Sibling Cancer Social History Social History Social History: Surrogate decision maker: Svitlana Hines, . Code status: Full code. Smoking packs per day: 1 Smoking cigarettes per day: 20.0 Years smoked: 40 Smoking pack-years: 40.00 Smoking status: Former smoker Tobacco type: cigarettes Alcohol intake: current Drinks per week: 2 Substance use: never Substance use type: does not use Additional living arrangements comments: The patient lives with his in [place]. 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 Gender identity (if verbalized by the patient): Male Spiritual care concerns: No Exam Narrative: Exam Narrative: GENERAL: Well-appearing, well-nourished, and in no acute distress. HEAD: Normocephalic, atraumatic. ENT: Mucous membranes moist. CHEST: Clear to auscultation. No respiratory distress. HEART: Regular rate and rhythm. Normal peripheral pulses. ABDOMEN: Soft, mild epigastric tend
--- NOTE | 2021-03-29 18:00 | PM.IMHP ---
H&P: HPI History of Present Illness Date/Time: 03/29/21 18:00 Chief Complaint: Nausea and vomiting. Narrative: This is a 60-year-old male smoker with COPD, hypertension, hyperlipidemia, and glaucoma who presented the emergency department earlier today via private vehicle from home for evaluation of nausea and vomiting. He is known to myself and the hospitalist service with a recent admission on 03/02/2021 in which he was treated for multifocal pneumonia. During that stay he mentioned having nearly constant hiccups since April 2020 for which he has been evaluated by multiple specialists and in fact has an upcoming endoscopy. He has not been able to find anything that has helped with his hiccups although drinking water sometimes helps, and the last several days or more he has been drinking an estimated 2 to 3 gallons of water a day. For about the same length of time he has been having quite a bit of nausea and reports several episodes of emesis. Today he began having some discomfort in his abdomen, likely due to the retching, and thus he came in for evaluation. His sodium level was 115 (139 on discharge 03/05/2021) and he is being admitted in this setting. He takes hydrochlorothiazide at home but has not had any recent change in medication dosing and he has not taken more than what is prescribed. He denies any significant alcohol use. He has not had a headache, confusion, or seizure activity. Review of Systems Review of Systems: Narrative: Twelve systems were reviewed with pertinent positives and negatives as per HPI. No fever, chills, or sweats. He denies chest pain and shortness breath. He has had some weight loss. No blood in the stool. except as documented, all other systems were reviewed and are negative. [facility] Past Medical History Medical History (Updated 03/29/21 @ 22:19 by Shalonda Sebastian PA-C) Anemia of chronic disease Chronic obstructive pulmonary disease Glaucoma Legally blind. Hyperlipidemia Hypertension Tobacco abuse Surgical History Surgical History History of enucleation of eye Right, secondary to recurrent infection. Family History Family History Grandparent Acute myocardial infarction Mother Acute myocardial infarction Father Acute myocardial infarction Sibling Cancer Social History Social History Social History: Surrogate decision maker: Svitlana Hines, . Code status: Full code. Smoking packs per day: 1 Smoking cigarettes per day: 20.0 Years smoked: 40 Smoking pack-years: 40.00 Smoking status: Former smoker Tobacco type: cigarettes Alcohol intake: current Drinks per week: 2 Substance use: never Substance use type: does not use Additional living arrangements comments: The patient lives with his in [place]. 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 Gender identity (if verbalized by the patient): Male Spiritual care concerns: No Meds Home Medications and Allergies Home Medications Medication Instructions Recorded Confirmed Type albuterol sulfate 1 puff INHALATION PRN PRN 03/02/21 03/29/21 History budesonide-formoterol [Symbicort] 1 puff INHALATION BID 03/02/21 03/29/21 History hydrochlorothiazide 12.5 mg PO DAILY 03/02/21 03/29/21 History losartan 50 mg PO DAILY 03/02/21 03/29/21 History montelukast 10 mg PO DAILY 03/02/21 03/29/21 History pravastatin 80 mg PO DAILY 03/02/21 03/29/21 History timolol maleate 1 drp LEFT EYE TID 03/02/21 03/29/21 History brinzolamide [Azopt] 1 drp LEFT EYE TID 03/03/21 03/29/21 History dexamethasone 1 drp EACH EYE Q12H 03/03/21 03/29/21 History cholecalciferol (vitamin D3) 25 mcg PO DAILY 03/29/21 03/29/21 History [Vitamin D3] cyanocobalamin (vitamin B-12) 100 mcg PO DAILY 03/29/21 07
[2021-03-29] MEDS: SODIUM CHLORIDE 0.9% IV 1,000 ML 125 ML IV CONT (18:41)
--- NOTE | 2021-03-29 19:22 | PC.NURSE ---
this rn called pharmacy to get bob for pt.
[2021-03-29] MEDS: chlorproMAZINE HCL 25 MG TABLET PO (19:30)
--- NOTE | 2021-03-29 21:41 | ADMGEN ---
This patient, Mark Hines, was admitted to IMU Room 207-01. Patient/family oriented to hospital policies and general routines including ID bracelet, bed and alarms, visiting hours, pain management, procedures, bathroom and other care routines, personal items, smoking policy, room service/diet, and visiting hours. Information on how to activate the Rapid Response Team has been discussed. Patient/Family are encouraged to report perceived risks to care and to ask questions if they do not understand what they are told or what they should do.
[2021-03-29 23:24] LABS: Anion Gap 10 mmol/L (8-16); Blood Urea Nitrogen 5 mg/dL (9-20); Carbon Dioxide 25 mmol/L (22-30); Chloride 99 mmol/L (98-107); Estimated CRCL calculation 87 ml/min; Estimated Glomerular Filt Rate > 60; Glucose 102 mg/dL (75-110); Potassium 4.1 mmol/L (3.4-5.0); Sodium 134 mmol/L (137-145)
[2021-03-29 23:32] LABS: NT Pro B Type Natriuretic Pept 431 pg/mL (5-100)
[2021-03-30] VITALS (9 sets, daily range): BP systolic 101–137; BP diastolic 55–80; PULSE 49–89; RESP 18; TEMP 36.4–37.2; O2SAT 96–98
[2021-03-30 00:16] LABS: Creatinine Urine 7.6 mg/dL
[2021-03-30] MEDS: SODIUM CHLORIDE 0.9% IV 1,000 ML 125 ML IV CONT (02:50)
--- NOTE | 2021-03-30 03:03 | PC.NURSE ---
Patient is blind and significantly [place]. He was encouraged to use the urinal at bedside for safety reasons but insists on walking to the bathroom to use the urinal. Patient has been using the call light to communicate restroom needs. Patient is alert and oriented x3.
[2021-03-30 05:16] LABS: Hematocrit 34.9 % (42.0-52.0); Hemoglobin 11.6 g/dL (14.0-18.0); Mean Corpuscular HGB Conc 33.2 g/dl (32-36); Mean Corpuscular Hemoglobin 28.2 pg (26-34); Mean Corpuscular Volume 84.9 fl (80-100); Mean Platelet Volume 10.8 fl (7.4-10.4); Platelet Count Result 198 k/mm3 (150-375); Red Blood Count 4.11 M/mm3 (4.6-6.20); Red Cell Distribution Width 14.9 % (11.5-14.5); White Blood Count 6.9 K/mm3 (4.5-10.0)
[2021-03-30 05:38] LABS: Anion Gap 9 mmol/L (8-16); Blood Urea Nitrogen 5 mg/dL (9-20); Carbon Dioxide 24 mmol/L (22-30); Chloride 104 mmol/L (98-107); Estimated CRCL calculation 84 ml/min; Estimated Glomerular Filt Rate > 60; Glucose 88 mg/dL (75-110); Magnesium 2.1 mg/dL (1.6-2.3); Potassium 4.2 mmol/L (3.4-5.0); Sodium 137 mmol/L (137-145)
[2021-03-30] MEDS: LOSARTAN POTASSIUM 50 MG TABLET PO (09:05)
[2021-03-30] MEDS: CHOLECALCIFEROL 1,000 UNITS TABLET 1000 UNITS PO (09:05)
[2021-03-30] MEDS: TIMOLOL MALEATE 0.5% OP SOLN 5 ML BOTTLE 1 DROP LEFT EYE ×3 (09:05→17:43)
[2021-03-30] MEDS: BRINZOLAMIDE 1% OPHTH SUSP 10 ML 1 DROP LEFT EYE ×3 (09:05→17:43)
[2021-03-30] MEDS: MONTELUKAST SODIUM 10 MG TABLET PO (09:06)
[2021-03-30] MEDS: PRAVASTATIN SODIUM 20 MG TABLET 80 MG PO (09:06)
--- NOTE | 2021-03-30 10:33 | PM.IMPN ---
Progress Note: A&P Assessment and Plan (1) Hyponatremia: Code(s): E87.1 - Hypo-osmolality and hyponatremia Status: Acute Assessment and Plan: acute and resolved Likely due to polydipsia (2) Abnormal chest xray: Code(s): R93.89 - Abnormal findings on diagnostic imaging of other specified body structures Status: Acute Assessment and Plan: CT chest pending (3) Chronic hiccups: Code(s): R06.6 - Hiccough Status: Acute Assessment and Plan: recent negative CT abdomen pelvis reason multifocal pneumonia chest x-ray still abnormal consider interstitial lung disease CT chest pending Consider upper GI pathology (neoplasm?) trial of scheduled prochlorperazine GI consultation (4) Anemia of chronic disease: Code(s): D63.8 - Anemia in other chronic diseases classified elsewhere Status: Acute (5) Hypertension: Code(s): I10 - Essential (primary) hypertension Status: Chronic (6) Hyperlipidemia: Code(s): E78.5 - Hyperlipidemia, unspecified Status: Chronic (7) Glaucoma: Code(s): H40.9 - Unspecified glaucoma Status: Acute (8) Chronic obstructive pulmonary disease: Code(s): J44.9 - Chronic obstructive pulmonary disease, unspecified Status: Acute (9) Tobacco abuse: Code(s): Z72.0 - Tobacco use Status: Acute Subjective Date/time seen: 03/30/21 10:33 Interval history: 03/29 admitted with n/v, weakness, hyponatremia. Had been drinking a few gallons of water per day to help his hiccups. 03/30: Still with hiccups. Mild abd discomfort with hiccups. No gi or gu changes otherwise. No cp or sob. No edema. No abnl bleeding. +WEIGHT LOSS ABOUT 20 POUNDS IN THE PAST YEAR. Quit smoking during previous hospital admission for pneumonia. Review of Systems Review of Systems: All systems reviewed & are unremarkable except as noted in HPI and below Exam Narrative: Exam Narrative: General: Chronically ill-appearing male sitting up in bed in no distress. Intermittent hiccups during exam HEENT: Bilateral hearing aids. Status post right eye enucleation. Left cornea is cloudy with irregular pupil. Left conjunctiva mildly injected. Sclerae anicteric. Oral mucosa moist. Oropharynx clear. Neck: Supple. No JVD. Respiratory: Lung sounds are a bit diminished at the bases but are otherwise clear. Cardiovascular: Regular rate and rhythm with S1-S2. Gastrointestinal: Abdomen is soft and nondistended with positive bowel sounds. He is slightly tender to palpation in the periumbilical to RUQ region. No voluntary guarding or rebound tenderness. Skin: Warm, dry, and juarez. Extremities: No cyanosis, clubbing, or edema. Radial and pedal pulses intact. Neurological: Alert. Cranial nerves 3-12 are grossly intact. No gross focal deficits to casual conversation. Psychiatric: Pleasant and cooperative with normal mood and affect. Objective Data Vital Signs Vital Signs: Vital Signs - 24 hr 03/29/21 14:59 03/29/21 16:24 03/29/21 17:45 Temperature 97.0 F L Pulse Rate 67 65 66 Respiratory Rate 18 98 H 17 Blood Pressure 155/84 H 143/73 H 142/68 H Pulse Oximetry 100 98 98 03/29/21 18:46 03/29/21 19:24 03/29/21 20:52 Temperature Pulse Rate 67 69 85 Respiratory Rate 12 20 19 Blood Pressure 147/72 H 129/80 96/81 L Pulse Oximetry 99 98 97 03/29/21 21:05 03/29/21 21:20 03/29/21 22:00 Temperature 98.2 F 98.2 F Pulse Rate 70 84 84 Respiratory Rate 18 18 Blood Pressure 109/64 127/60 127/60 Pulse Oximetry 99 97 97 03/29/21 22:02 03/30/21 00:00 03/30/21 02:00 Temperature 98.5 F Pulse Rate 77 80 66 Respiratory Rate 18 Blood Pressure 130/80 Pulse Oximetry 96 03/30/21 04:00 03/30/21 06:00 03/30/21 08:00 Temperature 98.1 F 97.6 F Pulse Rate 77 71 75 Respiratory Rate 18 18 Blood Pressure 101/61 137/63 Pulse Oximetry 97 96 03/30/21 08:33 Temperature Pulse Rate Respiratory Rat
[2021-03-30] MEDS: SODIUM CHLORIDE 0.9% IV 1,000 ML 70 ML IV CONT (12:34)
[2021-03-30] MEDS: PROCHLORPERAZINE MALEATE 5 MG TABLET 10 MG PO ×3 (12:56→20:56)
--- NOTE | 2021-03-30 20:58 | WPDGICN ---
Assessment and Plan Additional Plan GI Consultation Dr. Lloyd 30 Mar 2021 This is a60 year old male patient with a history of COPD, HTN, HLD, Glaucoma, recent pneumonia, AOCD and right eye enucleation who now presents for evaluation of nausea, vomiting and hiccups. Patient is seen at the request of the Hospitalist service to evaluate for same. The patient?s primary care provider is TRAVIS Berger. Primary GI is Dr. Mitchell. Patient states for the past year he has had episodic nausea and vomiting associated with severe hiccups. This usually is post-prandial. It can be associated with belching. Eating bread and drinking water can sometimes help. He has had a somewhat poor appetite and a 30-40 lb weight loss over the past year. Meds including acid blockers and muscle relaxants have not helped. He has seen Dr. Stokes (ENT) without success. He sucks a bit of hard candy but is not a fast eater or gum chewer. He has nausea without vomiting. Patient recently was seen in Dr. Mitchell' office. He denies abdominal pain, trouble swallowing, bloating, early satiety, heartburn, diarrhea or constipation, rectal bleeding or melena. Patient denies fever, jaundice, scleral icterus, dark urine, light stool, itching, hot or cold intolerance, chest pain, shortness of breath at rest, hematuria, dysuria, new cough or visual changes, easy bruising, tingling of the skin, bone pain or tremors. No history of endocarditis, rheumatic fever, dental prophylaxis, heart valve surgery, bleeding disorder or joint replacement. NKDA. Medications: see list. No aspirin/NSAIDS/anticoagulants. Social history: smoker, occasional alcohol. Family history: negative for GI malignancy. Last colonoscopy was greater than 10 years ago. Physical exam: No lower extremity edema, jaundice, spider angioma, palmar erythema. Skull is normocephalic atraumatic. Sclera are non-icteric. Oropharynx is clear. Neck is supple without thyromegaly. Lungs are clear. Heart is rate and rhythm regular. S1 and S2 normal. Normal active bowel sounds. Non-tender, non-rigid, non-distended without hepatosplenomegaly or masses. No guarding. Rectal is deferred. Neuro is conscious and alert ?3. Labs: 03-30-2021: Hct 35. WBC 7. MCV 85. Cr 0.7. Mg 2.1 03-29-2021: LFT's normal. TSH 2.2 03-03-2021 B12 > 1,000; folate 9. Fe 14, tibc 183, %sat 8, ferritin 300 Imagin03-03-2021 Mod barium swallow normal. 03-02-2021 CT A/P with contrast Sigmoid colon tic. Abnormal lungs. Assessment and plan: A. N/V/Hiccups - Unclear cause; consider SIBO, Lactose intolerance, motility issue - PPI BID - Consider Xifaxan, Reglan, Dairy free diet - Thorazine started - Endoscopy per primary GI B. Abnormal imaging-digestive - Diverticulosis - Observe C. Mild anemia: AOCD. Thank you very much for allowing me to share in the care of your patient. Further recommendations per [facility]. Sandeep Lloyd M.D. (c) [phone] GI Consult Note Consult date/time: 03/30/21 20:59 HPI: Mark Hines is a 60 year old male [facility] Past Medical History Medical History (Updated 03/29/21 @ 23:05 by Nelson Barrientos MD) Anemia of chronic disease Chronic obstructive pulmonary disease Glaucoma Legally blind. Hyperlipidemia Hypertension Tobacco abuse Surgical History Surgical History History of enucleation of eye Right, secondary to recurrent infection. Family History Family History Grandparent Acute myocardial infarction Mother Acute myocardial infarction Father Acute myocardial infarction Sibling Cancer Social History Social History Social History: Surrogate decision maker: Svitlana Hines, . Code status: Full code. Smoking packs per day: 1 Smoking cigarettes per day: 20.0 Years smoked: 40 Smoking
[2021-03-31] VITALS (13 sets, daily range): BP systolic 83–169; BP diastolic 38–126; PULSE 68–82; RESP 15–22; TEMP 36.3–37; O2SAT 95–100; BMI 21.7
[2021-03-31] MEDS: SODIUM CHLORIDE 0.9% IV 1,000 ML 70 ML IV CONT ×2 (02:04→21:19)
[2021-03-31 04:35] LABS: Sodium Urine Random 220 meq/L
[2021-03-31 05:13] LABS: Hematocrit 33.8 % (42.0-52.0); Immature Reticulocyte Fraction 7.4 % (3.0-15.9); Mean Corpuscular HGB Conc 32.5 g/dl (32-36); Mean Corpuscular Hemoglobin 27.8 pg (26-34); Mean Corpuscular Volume 85.4 fl (80-100); Mean Platelet Volume 10.5 fl (7.4-10.4); Platelet Count Result 212 k/mm3 (150-375); Red Blood Count 3.96 M/mm3 (4.6-6.20); Red Cell Distribution Width 15.6 % (11.5-14.5); Reticulocyte Hemoglobin Conten 30.3 pg (28.2-35.7); Reticulocyte Percent 0.96 % (0.7-4.3); Reticulocytes Absolute 0.04 B/L (32.2-175.7); White Blood Count 11.5 K/mm3 (4.5-10.0)
[2021-03-31 05:23] LABS: Anion Gap 9 mmol/L (8-16); Blood Urea Nitrogen 7 mg/dL (9-20); Calcium 9.4 mg/dL (8.4-10.2); Carbon Dioxide 25 mmol/L (22-30); Chloride 103 mmol/L (98-107); Estimated CRCL calculation 79 ml/min; Estimated Glomerular Filt Rate > 60; Glucose 104 mg/dL (75-110); Potassium 4.2 mmol/L (3.4-5.0); Sodium 137 mmol/L (137-145)
[2021-03-31 05:38] LABS: Iron < 10 ug/dL (49-181)
[2021-03-31 06:31] LABS: Folic Acid 13.7 ng/mL (2.76->20); Vitamin B12 > 1000.0 pg/mL (239-931)
[2021-03-31] MEDS: PRAVASTATIN SODIUM 20 MG TABLET 80 MG PO (08:35)
[2021-03-31] MEDS: BRINZOLAMIDE 1% OPHTH SUSP 10 ML 1 DROP LEFT EYE ×2 (08:35→17:03)
[2021-03-31] MEDS: TIMOLOL MALEATE 0.5% OP SOLN 5 ML BOTTLE 1 DROP LEFT EYE ×2 (08:35→17:04)
[2021-03-31] MEDS: LOSARTAN POTASSIUM 50 MG TABLET PO (08:36)
[2021-03-31] MEDS: CHOLECALCIFEROL 1,000 UNITS TABLET 1000 UNITS PO (08:36)
[2021-03-31] MEDS: MONTELUKAST SODIUM 10 MG TABLET PO (08:36)
[2021-03-31] MEDS: CYANOCOBALAMIN 1,000 MCG TABLET 2000 MCG PO (08:36)
[2021-03-31] MEDS: PROCHLORPERAZINE MALEATE 5 MG TABLET 10 MG PO ×3 (08:37→20:39)
[2021-03-31 10:11] LABS: Percent Iron Saturation < 5 % (20-50)
[2021-03-31] MEDS: LACTATED RINGERS 1,000 ML 150 ML IV CONT (12:21)
--- NOTE | 2021-03-31 13:10 | WPDANESEPPF ---
Anes - Initial Pre Proc Eval Procedure: Operation Date: 03/31/21 13:15 Proposed Procedures p Esophagogastroduodenoscopy - Jame Mitchell MD Date/Time: 03/31/21 13:10 Surgeon: Estuardo Trevino MD Pre Op Diagnosis: Hyponatremia, Hiccups Patient Data Age: 60 Gender: M Height: 1.73 m Weight: 64.7 kg Last Vital Signs Temp 37.0 C 03/31/21 11:54 Pulse 71 03/31/21 11:54 Resp 15 03/31/21 11:54 BP 122/56 L 03/31/21 11:54 Pulse Ox 96 03/31/21 11:54 Allergies Allergy/AdvReac Type Severity Reaction Status Date / Time No Known Allergies Allergy Verified 03/31/21 12:17 Home Medications Medication Instructions Recorded Confirmed Type albuterol sulfate 1 puff INHALATION PRN PRN 03/02/21 03/29/21 History budesonide-formoterol [Symbicort] 1 puff INHALATION BID 03/02/21 03/29/21 History hydrochlorothiazide 12.5 mg PO DAILY 03/02/21 03/29/21 History losartan 50 mg PO DAILY 03/02/21 03/29/21 History montelukast 10 mg PO DAILY 03/02/21 03/29/21 History pravastatin 80 mg PO DAILY 03/02/21 03/29/21 History timolol maleate 1 drp LEFT EYE TID 03/02/21 03/29/21 History brinzolamide [Azopt] 1 drp LEFT EYE TID 03/03/21 03/29/21 History dexamethasone 1 drp EACH EYE Q12H 03/03/21 03/29/21 History cholecalciferol (vitamin D3) 25 mcg PO DAILY 03/29/21 03/29/21 History [Vitamin D3] cyanocobalamin (vitamin B-12) 2,000 mcg PO DAILY 03/29/21 03/30/21 History [Senior Vitamin B-12] Laboratory Tests 03/31/21 03/31/21 03/31/21 03:42 04:38 04:38 WBC 11.5 K/mm3 H K/mm3 (4.5-10.0) RBC 3.96 M/mm3 L M/mm3 (4.6-6.20) Hgb 11.0 g/dL L g/dL (14.0-18.0) Hct 33.8 % L % (42.0-52.0) MCV 85.4 fl fl (80-100) MCH 27.8 pg pg (26-34) MCHC 32.5 g/dl g/dl (32-36) RDW 15.6 % H % (11.5-14.5) Plt Count 212 k/mm3 k/mm3 (150-375) MPV 10.5 fl H fl (7.4-10.4) Absolute Retic 0.04 B/L L B/L (32.2-175.7) Percent Retic 0.96 % % (0.7-4.3) Immature Retic Fraction 7.4 % % (3.0-15.9) Retic Hgb Content 30.3 pg pg (28.2-35.7) Sodium Potassium Chloride Carbon Dioxide Anion Gap BUN Creatinine Estim Creat Clear Calc Estimated GFR Glucose Calcium Iron < 10 ug/dL L ug/dL (49-181) TIBC 209 ug/dL L ug/dL (265-497) % Saturation < 5 % L % (20-50) Vitamin B12 Folate Ur Random Sodium 220 meq/L meq/L 03/31/21 04:38 WBC RBC Hgb Hct MCV MCH MCHC RDW Plt Count MPV Absolute Retic Percent Retic Immature Retic Fraction Retic Hgb Content Sodium 137 mmol/L mmol/L (137-145) Potassium 4.2 mmol/L mmol/L (3.4-5.0) Chloride 103 mmol/L mmol/L (98-107) Carbon Dioxide 25 mmol/L mmol/L (22-30) Anion Gap 9 mmol/L mmol/L (8-16) BUN 7 mg/dL L mg/dL (9-20) Creatinine 0.80 mg/dL mg/dL (0.7-1.3) Estim Creat Clear Calc 79 ml/min ml/min Estimated GFR > 60 (59 - ) Glucose 104 mg/dL mg/dL (75-110) Calcium 9.4 mg/dL mg/dL (8.4-10.2) Iron TIBC % Saturation Vitamin B12 > 1000.0 pg/mL H pg/mL (239-931) Folate 13.7 ng/mL ng/mL (2.76->20) Ur Random Sodium Patient hx anesthesia problems: none Family hx anesthesia problems: none PMFSH Past Medical History Medical History (Updated 03/29/21 @ 23:05 by Nelson Barrientos MD) Anemia of chronic disease Chronic obstructive pulmonary disease Glaucoma Legally blind. Hyperlipidemia Hypertension Tobacco abuse Surgical History Surgical History History of enucleation of eye Right, secondary to r
--- NOTE | 2021-03-31 14:28 | PM.IMPN ---
Progress Note: A&P Assessment and Plan (1) Multifocal pneumonia: Code(s): J18.9 - Pneumonia, unspecified organism Status: Acute Assessment and Plan: Patient was recently treated for pneumonia last month but had abnormal chest x-ray on presentation HRCT 03/31 IMPRESSION: 1. Multifocal pneumonia with a lower lung predominance with some areas of improvement and some areas of worsening when compared 03/02/2021. He is afebrile and has a normal WBC. he denies any fevers chills or rigors and also has pretty mild dry cough. this could be resolving pneumonia and will need to be followed up as an outpatient which I discussed with patient (2) Hyponatremia: Code(s): E87.1 - Hypo-osmolality and hyponatremia Status: Acute Assessment and Plan: ? error on initial measurement as the next measure approximately 7 hours later was close to normal range if true, could be from polydipsia on presentation it seemed to have corrected too fast but sodium has normalized now and has been in normal range for last 3 days hence I do not think any intervention is needed or warranted at this time DC hydrochlorothiazide (3) Chronic hiccups: Code(s): R06.6 - Hiccough Status: Acute Assessment and Plan: recent negative CT abdomen pelvis patient had EGD today which showed gastritis and esophagitis PPI b.i.d. and carfate on prochlorperazine. at this time he denies any hiccups but will see how he does with food (4) Anemia of chronic disease: Code(s): D63.8 - Anemia in other chronic diseases classified elsewhere Status: Acute (5) Hypertension: Code(s): I10 - Essential (primary) hypertension Status: Chronic Assessment and Plan: on p.o. losartan (6) Hyperlipidemia: Code(s): E78.5 - Hyperlipidemia, unspecified Status: Chronic Assessment and Plan: pravastatin (7) Glaucoma: Code(s): H40.9 - Unspecified glaucoma Status: Acute Assessment and Plan: continue home eyedrops (8) Chronic obstructive pulmonary disease: Code(s): J44.9 - Chronic obstructive pulmonary disease, unspecified Status: Acute Assessment and Plan: p.r.n. bronchodilator (9) Tobacco abuse: Code(s): Z72.0 - Tobacco use Status: Acute Assessment and Plan: consult to quit (10) Gastritis: Code(s): K29.70 - Gastritis, unspecified, without bleeding Status: Acute Assessment and Plan: patient had EGD today which showed gastritis and esophagitis PPI b.i.d. and carfate Additional Plan SCD Subjective Date/time seen: 03/31/21 14:28 Patient underwent EGD this morning the and at this time denies any complaints. Denies any nausea vomiting or hiccups today. No chest pain shortness of breath or fever. Review system was positive for dry cough which is chronic and also unable to see from right eye and poor vision in the left eye. Other systems were reviewed and were negative Interval history: 03/29 admitted with n/v, weakness, hyponatremia. Had been drinking a few gallons of water per day to help his hiccups. Review of Systems Review of Systems: All systems reviewed & are unremarkable except as noted in HPI and below Exam Narrative: Exam Narrative: General: Chronically ill-appearing male sitting up in bed in no distress. Intermittent hiccups during exam HEENT: Bilateral hearing aids. Status post right eye enucleation. Left cornea is cloudy with irregular pupil. Left conjunctiva mildly injected. Sclerae anicteric. Oral mucosa moist. Oropharynx clear. Neck: Supple. No JVD. Respiratory: Lung sounds are a bit diminished at the bases but are otherwise clear. Cardiovascular: Regular rate and rhythm with S1-S2. Gastrointestinal: Abdomen is soft and nondistended with positive bowel sounds. He is slightly tender to palpation in the periumbilical to RUQ region. No voluntary guarding or rebound tende
[2021-03-31] MEDS: SUCRALFATE SUSP 100 MG/ML 10 ML UDC 1000 MG PO ×2 (17:10→20:39)
--- NOTE | 2021-03-31 19:21 | PC.NURSE ---
This patient, Mark Hines, was transferred to [[id number] ] on 03/31/21 at 1730. Personal belongings sent with patient. Report given to Christine. Appropriate documentation sent with patient.
[2021-03-31] MEDS: PANTOPRAZOLE 40 MG TABLET PO (20:39)
[2021-04-01 06:00] VITALS: BP 116/75; PULSE 78; RESP 16; TEMP 35.9; O2SAT 97
[2021-04-01 06:08] LABS: Hematocrit 31.8 % (42.0-52.0); Hemoglobin 10.3 g/dL (14.0-18.0); Mean Corpuscular HGB Conc 32.4 g/dl (32-36); Mean Corpuscular Hemoglobin 27.8 pg (26-34); Mean Corpuscular Volume 85.7 fl (80-100); Mean Platelet Volume 10.2 fl (7.4-10.4); Platelet Count Result 203 k/mm3 (150-375); Red Blood Count 3.71 M/mm3 (4.6-6.20); Red Cell Distribution Width 15.6 % (11.5-14.5); White Blood Count 11.3 K/mm3 (4.5-10.0)
[2021-04-01 06:23] LABS: Anion Gap 7 mmol/L (8-16); Blood Urea Nitrogen 5 mg/dL (9-20); Calcium 8.9 mg/dL (8.4-10.2); Carbon Dioxide 26 mmol/L (22-30); Chloride 104 mmol/L (98-107); Estimated CRCL calculation 86 ml/min; Estimated Glomerular Filt Rate > 60; Glucose 107 mg/dL (75-110); Potassium 3.8 mmol/L (3.4-5.0); Sodium 137 mmol/L (137-145)
[2021-04-01] MEDS: SUCRALFATE SUSP 100 MG/ML 10 ML UDC 1000 MG PO ×3 (06:32→16:21)
[2021-04-01] MEDS: PRAVASTATIN SODIUM 20 MG TABLET 80 MG PO (08:01)
[2021-04-01] MEDS: CYANOCOBALAMIN 1,000 MCG TABLET 2000 MCG PO (08:02)
[2021-04-01] MEDS: PROCHLORPERAZINE MALEATE 5 MG TABLET 10 MG PO ×3 (08:02→16:22)
[2021-04-01] MEDS: PANTOPRAZOLE 40 MG TABLET PO (08:03)
[2021-04-01] MEDS: CHOLECALCIFEROL 1,000 UNITS TABLET 1000 UNITS PO (08:03)
[2021-04-01] MEDS: LOSARTAN POTASSIUM 50 MG TABLET PO (08:03)
[2021-04-01] MEDS: MONTELUKAST SODIUM 10 MG TABLET PO (08:03)
[2021-04-01] MEDS: BRINZOLAMIDE 1% OPHTH SUSP 10 ML 1 DROP LEFT EYE ×3 (08:09→16:22)
[2021-04-01] MEDS: TIMOLOL MALEATE 0.5% OP SOLN 5 ML BOTTLE 1 DROP LEFT EYE ×3 (08:09→16:21)
--- NOTE | 2021-04-01 08:21 | WPDANESPN ---
Anes - Prog Note Post-Op Date/Time: 04/01/21 08:21 Cardiovascular status: normal Respiratory status: normal Airway patency: baseline Mental status: baseline Post-Op hydration status: normal Vital Signs: Last Vital Signs Temp 35.9 C L 04/01/21 06:00 Pulse 78 04/01/21 06:00 Resp 16 04/01/21 06:00 BP 116/75 04/01/21 06:00 Pulse Ox 97 04/01/21 06:00 Pain Score (VAS): 0 I/O: Intake & Output 03/31/21 04/01/21 04/01/21 23:59 07:59 15:59 Intake Total 1000 340 Output Total 300 Balance 700 340 Laboratory Tests 04/01/21 05:53 04/01/21 05:53 03/31/21 04/01/21 04/01/21 04:38 05:53 05:53 WBC 11.3 H RBC 3.71 L Hgb 10.3 L Hct 31.8 L MCV 85.7 MCH 27.8 MCHC 32.4 RDW 15.6 H Plt Count 203 MPV 10.2 Sodium 137 Potassium 3.8 Chloride 104 Carbon Dioxide 26 Anion Gap 7 L BUN 5 L Creatinine 0.70 Estim Creat Clear Calc 86 Estimated GFR > 60 Glucose 107 Calcium 8.9 % Saturation < 5 L Post-procedural complaints: none Patient Feedback: Patient satisfied with anesthetic care.
[2021-04-01 10:13] LABS: IFOB Positive Control Positive; Immunochemical Fecal Occult Bl Negative (N)
[2021-04-01] MEDS: SODIUM CHLORIDE 0.9% IV 1,000 ML 70 ML IV CONT (12:01)
--- NOTE | 2021-04-01 15:38 | PM.DS ---
DS: Admitting Diagnosis Admitting Diagnosis Admitting Diagnosis: hyponatremia, nausea/vomiting DS: Discharge Diagnosis Discharge Diagnosis (1) Gastritis: Code(s): K29.70 - Gastritis, unspecified, without bleeding Status: Acute Assessment and Plan: Date of Admission 03/29/21 Date of Discharge 04/01/21 Mr. Hines is an 60yo M with history of chronic anemia, hyperlipidemia, COPD, and glaucoma who presented to the ED for evaluation of abdominal pain with nausea and vomiting. He has been having nearly constant hiccups since April 2020 for which he has been evaluated by multiple specialists. He reported sometimes drinking water helped and described he had been drinking 2 to 3 gallons of water per day. His sodium level was 115 and was admitted to the hospitalist service in this setting however repeat lab demonstrated sodium in the 130s thus this initial value may have been misreported. In any event, he was evaluated by GI and underwent EGD 03/31/[address] Staley, demonstrating erosive esophagitis and moderate gastritis without acute bleeding. He was started on protonix twice daily and carafate ACHS. Treated with supportive care to include antiemetics. Recommend follow up with GI in 3 months to repeat EGD and assess for healing. He was feeling better, nausea/vomiting resolved at present and he was hemodynamically stable for discharge 04/01/21 with instructions to follow up with PCP and with Dr Staley. He was recently treated for pneumonia last month. Chest XR and high resolution CT demonstrated multifocal pneumonia. He denies fevers/chills/worsening symptoms just a mild dry cough. Imaging findings may represent resolving pneumonia and he is not felt to need antibiotics at this time. Educated to follow up with PCP for any developing symptoms. (2) Hyponatremia: Code(s): E87.1 - Hypo-osmolality and hyponatremia Status: Acute Assessment and Plan: Initial sodium level 115 (139 on day of discharge 1 month ago); repeat lab later that shift was in 134 and this initial value appeared erroneous. If value was accurate it may have been related to excess free water consumption. On presentation it seemed to have corrected too fast but sodium level is normalized at this time at 137 x 3 days and no further intervention is needed at this time. HCTZ discontinued. (3) Multifocal pneumonia: Code(s): J18.9 - Pneumonia, unspecified organism Status: Acute Assessment and Plan: Imaging demonstrated what is felt to be resolving pneumonia. No respiratory distress. Recently treated for pneumonia. (4) Chronic hiccups: Code(s): R06.6 - Hiccough Status: Chronic Assessment and Plan: Undergone workup but multiple specialists. May be related to esophagitis/gastritis findings. PPI and carafate may help. (5) Anemia of chronic disease: Code(s): D63.8 - Anemia in other chronic diseases classified elsewhere Status: Chronic Assessment and Plan: H&H low but stable. No evidence of acute bleeding. Continue his B12 supplement. (6) Hyperlipidemia: Code(s): E78.5 - Hyperlipidemia, unspecified Status: Chronic Assessment and Plan: Continue home statin therapy. (7) Chronic obstructive pulmonary disease: Code(s): J44.9 - Chronic obstructive pulmonary disease, unspecified Status: Chronic Assessment and Plan: No acute issues. (8) Glaucoma: Code(s): H40.9 - Unspecified glaucoma Status: Chronic Assessment and Plan: Continue home eye drops. DS: Summary Hospital Course Hospital Course: See abo
--- NOTE | 2021-04-01 15:47 | WPDGIPROGNO ---
Progress Note: A&P Assessment and Plan (1) Erosive esophagitis: Code(s): K22.10 - Ulcer of esophagus without bleeding Status: Acute Assessment and Plan: mod-severe erosive esophagitis can explain symptoms he can go home with ppi twice daily egd in 3 months to assess healing of esophagitis (2) Nausea: Code(s): R11.0 - Nausea Status: Acute Assessment and Plan: better (3) Hiccups: Code(s): R06.6 - Hiccough Status: Acute (4) Acute hyponatremia: Code(s): E87.1 - Hypo-osmolality and hyponatremia Status: Acute Assessment and Plan: improving (5) Anemia of chronic disease: Code(s): D63.8 - Anemia in other chronic diseases classified elsewhere Status: Acute Assessment and Plan: stable (6) Glaucoma: Code(s): H40.9 - Unspecified glaucoma Status: Acute Subjective Date/time seen: 04/01/21 15:47 Interval history: egd showed erosive esophagitis, tolerating diet Review of Systems Review of Systems: All systems reviewed & are unremarkable except as noted in HPI and below Exam Const: General: comfortable and no acute distress HENMT: General nose exam: Normal nares present Eyes: Other: legally blind Neck: Neck: no JVD Resp: Auscultation: clear to auscultation bilaterally Cardio: Rate: regular rate Rhythm: regular rhythm GI: Inspection: non-distended GI Palp: Yes Soft to palpation Skin: General skin exam: normal color Neuro: General: gait normal Speech: normal speech Extrem: General: normal to inspection Psych: Mental Status: mental status grossly normal Objective Data Vital Signs Vital Signs: Vital Signs - 24 hr 03/31/21 17:46 03/31/21 19:38 03/31/21 19:53 Temperature 98.5 F 97.8 F Pulse Rate 77 68 82 Respiratory Rate 20 20 18 Blood Pressure 124/48 L 122/82 Pulse Oximetry 99 95 98 04/01/21 06:00 Temperature 96.7 F L Pulse Rate 78 Respiratory Rate 16 Blood Pressure 116/75 Pulse Oximetry 97 Intake/Output Intake/Output: Intake & Output 03/29/21 03/30/21 03/31/21 04/01/21 23:59 23:59 23:59 23:59 Intake Total 1000 2880 2200 1580 Output Total 1600 2325 1100 Balance -815 986 3432 1580 Meds/Results Medications: Active Medications Generic Name Dose Route Start Last Admin Trade Name Freq PRN Reason Stop Dose Admin Albuterol 1 puff 03/30/21 03:11 Albuterol Sulfate (*Sp) Aerosol 1 Puff INHALATION Q4H PRN Shortness Of Breath Brinzolamide 1 drop 03/30/21 09:00 04/01/21 12:48 Brinzolamide 1% Ophth Susp 10 Ml LEFT EYE 1 drop TID PASHA Administration Budesonide/Formoterol Fumarate 1 puff 03/30/21 08:00 04/01/21 08:00 Budesonide/Form 80-4.5 Mcg (*Sp) INHALATION 1 puff Q12HRT PASHA Administration Cyanocobalamin 2,000 mcg 03/31/21 09:00 04/01/21 08:02 Cyanocobalamin 1,000 Mcg Tablet PO 04/29/21 09:01 2,000 mcg DAILY PASHA Administration Dexamethasone 1 drop 03/30/21 09:00 04/01/21 08:00 Dexamethasone 0.1% Ophth Soln 5 Ml Btl EACH EYE 1 drop Q12HR PASHA Administration Sodium Chloride 1,000 mls @ 70 mls/hr 03/29/21 17:50 04/01/21 12:01 Normal Saline Iv IV CONT 70 mls/hr .[id number] PASHA Administration Losartan Potassium 50 mg 03/30/21 09:00 04/01/21 08:03 Losartan Potassium 50 Mg Tablet PO 50 mg DAILY PASHA Administration Montelukast Sodium 10 mg 03/30/21 09:00 04/01/21 08:03 Montelukast Sodium 10 Mg Tablet PO 10 mg DAILY PASHA Administration Morphine Sulfate 4 mg 03/29/21 17:46 Morphine Sulfate (*Crx) 4 Mg/Ml Inj IV PUSH Q2H PRN Pain Rated 7-10 Pantoprazole Sodium 40 mg 03/31/21 21:00 04/01/21 08:03 Pantoprazole 40 Mg Tablet PO 40 mg Q12HR PASHA Administration Pravastatin Sodium 80 mg 03/30/21 09:00 04/01/21 08:01 Pravastatin Sodium 20 Mg Tablet PO 80 mg DAILY PASHA Administration Prochlorperazine Maleate 10 mg 03/30/21 13:00 04/01/21 12:50 Prochlorperazine
[2021-04-01 23:45] LABS: Osmolality, Urine <50 mOsm/kg (50-1200)
== END 2021-04-01 18:45 | disposition home or self-care (01) ==
LOC: ANHED 17:54 → ANHIMU 20:13 → ANH3MED 03-31 17:13
PROVIDERS: Internal Medicine Gastroenterology; Physician Assistant; Admitting Provider Internal Medicine; Emergency Provider Emergency Medicine; PCP Physician Assistant; Visit Provider Internal Medicine
PROC: 0DJ08ZZ Inspection of Upper Intestinal Tract, Via Natural or Artificial Opening Endoscopic (ICD-10-PCS; CPT 43235; principal; 2021-03-31 13:15)
DX: K29.50 Unspecified chronic gastritis without bleeding (principal); E87.1 Hypo-osmolality and hyponatremia; J18.9 Pneumonia, unspecified organism; K22.10 Ulcer of esophagus without bleeding; K21.00 Gastro-esophageal reflux disease with esophagitis, without bleeding; R11.2 Nausea with vomiting, unspecified; R06.6 Hiccough; J44.9 Chronic obstructive pulmonary disease, unspecified; I10 Essential (primary) hypertension; E78.5 Hyperlipidemia, unspecified; H40.9 Unspecified glaucoma; D63.8 Anemia in other chronic diseases classified elsewhere; Z87.891 Personal history of nicotine dependence; Z79.51 Long term (current) use of inhaled steroids
CPT/HCPCS: 43239; 36415; 71045; 71250; 80048; 80053; 82274; 82570; 82607; 82746; 83540; 83550; 83690; 83735; 83880; 83930; 83935; 84300; 84443; 85025; 85027; 85046; 88305; 94640; 96361; 96374; 99285; A9270; G0378; J2405; J2704; J7030; J7120

== ENCOUNTER 2021-04-27 16:46 | Inpatient (IN) | payer MEDICARE, SELFPAY ==
--- NOTE | ~2021-04-27 | CT_ITS ---
EXAMINATION:CT diagnostic chest w con DATE: 05/01/2021 12:18 INDICATION: Pneumonia. Chronic obstructive pulmonary disease. TECHNIQUE: Computed tomography (CT) of the chest was performed with 75 mL Omnipaque 350 intravenous c ontrast. Automated exposure control and iterative reconstruction technique were employed. The dose-le ngth product (DLP) was 200.59 mGy-cm. COMPARISON: Chest CT 03/31/2021 FINDINGS: There are mild airspace and groundglass opacities in anterior segment right upper lobe. The re are groundglass opacities and tree-in-bud opacities in the right middle lobe and lingula. There ar e centrilobular nodules, tree-in-bud opacities, and airspace and groundglass opacities in the lower l obes with a basilar predominance. A calcified left lung nodule and calcified left hilar lymph nodes a re consistent with old granulomatous disease. There is a small left pleural effusion. The heart size is normal. There are coronary artery calcifications. No pericardial effusion. Calcifications in the s pleen are consistent with old granulomatous disease. There is a 10 mm cyst in left kidney. There is c ortical thinning of the kidneys. There is kyphosis of thoracic spine with mild chronic anterior wedgi ng of multiple vertebral bodies. There are bridging endplate osteophytes at multiple levels in the sp ine, consistent with diffuse idiopathic skeletal hyperostosis (DISH). IMPRESSION: 1. Multifocal pneumonia with a lower lung predominance with mild interval improvement. 2. Stable small left pleural effusion. Reviewed, dictated and finalized at location A. IMPRESSION: 1. Multifocal pneumonia with a lower lung predominance with mild interval impro vement. 2. Stable small left pleural effusion.
--- NOTE | ~2021-04-27 | XR_ITS ---
EXAMINATION: XR chest 1V portable DATE: 04/27/2021 20:23 INDICATION: Dizziness. TECHNIQUE: A single frontal view of the chest was obtained. COMPARISON: Chest single view 03/29/2021, chest CT 03/31/2021 FINDINGS: There are airspace opacities in the lower lung zones. No pleural effusion or pneumothorax. The heart size is normal. IMPRESSION: 1. Airspace opacities in the lower lung zones with worsening on the right, consistent with atelectasi s/scarring versus pneumonia. Reviewed, dictated and finalized at location A. IMPRESSION: 1. Airspace opacities in the lower lung zones with worsening on the right, cons istent with atelectasis/scarring versus pneumonia.
[2021-04-27 17:17] VITALS: BP 158/72; PULSE 80; RESP 16; TEMP 37.7; O2SAT 97
[2021-04-27 17:37] LABS: Basophils Percent Auto 0.3 % (0.2-1.2); Eosinophils Percent Auto 0.1 % (0-4.4); Hematocrit 34.4 % (42.0-52.0); Hemoglobin 11.8 g/dL (14.0-18.0); Immature Granulocyte Absolute 0.03 K/mm3 (0.00-0.031); Immature Granulocyte Percent A 0.3 % (0-0.5); Lymphocytes Absolute Auto 0.64 K/mm3 (0.9-3.2); Lymphocytes Percent Auto 6.2 % (18.3-44.2); Mean Corpuscular HGB Conc 34.3 g/dl (32-36); Mean Corpuscular Volume 81.5 fl (80-100); Mean Platelet Volume 10.5 fl (7.4-10.4); Monocytes Absolute Auto 0.8 K/mm3 (0.1-0.6); Monocytes Percent Auto 7.9 % (2.6-8.5); Neutrophils Absolute Auto 8.8 K/mm3 (1.3-6.7); Neutrophils Percent Auto 85.2 % (45.5-73.1); Platelet Count Result 194 k/mm3 (150-375); Red Blood Count 4.22 M/mm3 (4.6-6.20); Red Cell Distribution Width 15.4 % (11.5-14.5); White Blood Count 10.3 K/mm3 (4.5-10.0)
[2021-04-27 17:50] LABS: Alanine Aminotransferase 14 U/L (4-50); Albumin Level 4.4 g/dL (3.5-5.1); Alkaline Phosphatase 66 U/L (38-126); Anion Gap 10 mmol/L (8-16); Aspartate Amino Transferase 25 U/L (17-59); Bilirubin,Total 0.8 mg/dL (0.2-1.3); Blood Urea Nitrogen 8 mg/dL (9-20); Calcium 9.2 mg/dL (8.4-10.2); Carbon Dioxide 23 mmol/L (22-30); Chloride 88 mmol/L (98-107); Estimated CRCL calculation 70 ml/min; Estimated Glomerular Filt Rate > 60; Glucose 103 mg/dL (65-110); Lipase 46 U/L (23-300); Potassium 4.4 mmol/L (3.4-5.0); Sodium 121 mmol/L (137-145)
[2021-04-27 18:05] LABS: Add Urine Microscopic? YES; Appearance Urine Clear (Clear); Bilirubin Urine Negative (Negative); Blood Urine 1+ (Negative); Color Urine Colorless (Yellow); Glucose Urine UA Negative (Negative); Ketones Urine Trace mg/dL (Negative); Leukocyte Esterase Ur Negative LEU/UL (Negative); Nitrate Urine Negative (Negative); Protein Urine Negative (Negative); Urobilinogen Urine Negative mg/dL (<2.0)
[2021-04-27 18:09] LABS: Specific Grav Ur 1.003 (1.001-1.035)
[2021-04-27 19:52] VITALS: BP 158/75; PULSE 70; RESP 17; O2SAT 100
--- NOTE | 2021-04-27 20:01 | ED.NAVMDI ---
HPI - Nausea/Vomiting/Diarrhea General Chief complaint: Nausea/Vomiting/Diarrhea Stated complaint: hiccups for 1 week, cough Time Seen by Provider: 04/27/21 20:01 History of Present Illness HPI Narrative: 60 yo male w/ h/o htn, glaucoma, PUD presents to the ED for nausea, vomiting, weakness, hiccups. He has had nausea and vomitign for the past several days. This is combined with near constant hiccups. He has become increasingly weak. He was recently seen here for the same symptoms and found to have pneumonia. He was treated and symptoms did improve. Related Data Home Medications Medication Instructions Recorded Confirmed albuterol sulfate 1 puff INHALATION PRN PRN 03/02/21 04/27/21 budesonide-formoterol [Symbicort] 1 puff INHALATION BID 03/02/21 04/27/21 losartan 50 mg PO DAILY 03/02/21 04/27/21 montelukast 10 mg PO DAILY 03/02/21 04/27/21 pravastatin 80 mg PO DAILY 03/02/21 04/27/21 timolol maleate 1 drp LEFT EYE TID 03/02/21 04/27/21 cholecalciferol (vitamin D3) 25 mcg PO DAILY 03/29/21 04/27/21 [Vitamin D3] cyanocobalamin (vitamin B-12) 2,000 mcg PO DAILY 03/29/21 04/27/21 hydrochlorothiazide 12.5 mg PO DAILY 04/27/21 04/27/21 Allergies Allergy/AdvReac Type Severity Reaction Status Date / Time No Known Allergies Allergy Verified 03/31/21 12:17 Review of Systems Review of Systems: All systems reviewed & are unremarkable except as noted in HPI and below Constitutional: Constitutional: Reports fever(s) Eyes: Eyes: Reports no additional eye complaints Cardiovascular: Cardiovascular: Denies chest pain Respiratory: Respiratory: Reports cough and Reports dyspnea Gastrointestinal: Gastrointestinal: Reports abdominal pain, Reports nausea and Reports vomiting Genitourinary: Genitourinary: Reports no additional male genitourinary complaints Neurologic: Reports system reviewed and no additional complaints, except as documented PMFSH Past Medical History Medical History Anemia of chronic disease Chronic obstructive pulmonary disease Erosive esophagitis Glaucoma Legally blind. Hyperlipidemia Hypertension Nausea Tobacco abuse Surgical History Surgical History History of enucleation of eye Right, secondary to recurrent infection. Family History Family History Grandparent Acute myocardial infarction Mother Acute myocardial infarction Father Acute myocardial infarction Sibling Cancer Social History Social History Social History: Surrogate decision maker: Svitlana Hines, . Code status: Full code. Smoking packs per day: 1 Smoking cigarettes per day: 20.0 Years smoked: 30 Smoking pack-years: 30.00 Smoking status: Current every day smoker Tobacco type: cigarettes Alcohol intake: current Drinks per week: 1 Substance use: never Substance use type: does not use Additional living arrangements comments: The patient lives with his in [place]. 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 Gender identity (if verbalized by the patient): Male Spiritual care concerns: No Exam Const: General: alert and ill appearing HENMT: Head: normal to inspection Eyes: Other: severe visual impairment Chest: Chest palpation & inspection: normal inspection of the chest Resp: Effort & Inspection: normal respiratory effort Auscultation: crackles and wheezes Cardio: Rate: regular rate Rhythm: regular rhythm GI: GI Palp: Yes Soft to palpation and Yes Tenderness to palpation present (GI) (epigastrium) Skin: General skin exam: normal color Neuro: General: patient oriented x3 and moves all extremities Extrem: General: normal to inspection Course Vital Signs Vital signs: Vital Signs
[2021-04-27] MEDS: SODIUM CHLORIDE 0.9% IV 1,000 ML 999 ML IV CONT (20:35)
[2021-04-27] MEDS: PROCHLORPERAZINE EDISYLATE 10 MG/2 ML VIAL IV PUSH (20:35)
[2021-04-27 20:57] VITALS: BP 148/72; PULSE 73; RESP 18; O2SAT 98
--- NOTE | 2021-04-27 21:27 | PC.NURSE ---
pt still complaining of nausea at this time. notified.
[2021-04-27] MEDS: ONDANSETRON INJ 4 MG/2 ML VIAL IV PUSH (21:39)
[2021-04-27 22:00] VITALS: BP 113/54; PULSE 77; RESP 18; O2SAT 95
[2021-04-27 22:40] VITALS: BP 130/74; PULSE 70; RESP 16; O2SAT 99
[2021-04-27 22:50] VITALS: BP 122/64; PULSE 80; RESP 18; TEMP 37.4; O2SAT 96
[2021-04-27 22:53] VITALS: BMI 20.2
--- NOTE | 2021-04-27 23:20 | ADMGEN ---
This patient, Mark Hines, was admitted to [facility] Surg Room 310-01. Patient/family oriented to hospital policies and general routines including ID bracelet, bed and alarms, visiting hours, pain management, procedures, bathroom and other care routines, personal items, smoking policy, room service/diet, and visiting hours. Information on how to activate the Rapid Response Team has been discussed. Patient/Family are encouraged to report perceived risks to care and to ask questions if they do not understand what they are told or what they should do.
--- NOTE | 2021-04-27 23:22 | PM.IMHP ---
H&P: HPI History of Present Illness Date/Time: 04/27/21 23:22 Chief Complaint: Hiccups Narrative: This is a 60-year-old male with past medical history significant for tobacco dependence, chronic he coughs with workup in the past just recently in our hospital which was pretty much unrevealing. Patient had been sent home on PPI, and he actually had a swallow eval as well which showed no aspiration. Patient comes back now with intractable hiccups, weight loss, nausea and vomiting at times ,chills, cough but no sputum production, no chest pain, no leg swelling, no PND no orthopnea. Preliminary workup was significant for worsening in lung infiltrates. BMP was significant for sodium of 121 chloride of 88. Review of Systems Review of Systems: He coughs, nausea vomiting, weight loss, chills. Constitutional: Constitutional: Reports chills, Denies fatigue, Denies fever(s) and Reports weight loss Eyes: Eyes: Denies change in vision ENT: Denies dysphagia, Denies nasal congestion, Denies nasal discharge, Denies nasal obstruction and Denies odynophagia Cardiovascular: Cardiovascular: Denies irregular heart rhythm, Denies claudication, Denies radiating jaw, neck or arm pain, Denies palpitations, Denies dyspnea, Denies dyspnea on exertion and Denies orthopnea Respiratory: Respiratory: Reports cough and Denies dyspnea Gastrointestinal: Gastrointestinal: Reports nausea and Reports vomiting Genitourinary: Genitourinary: Denies dysuria Musculoskeletal: Musculoskeletal: Reports no additional musculoskeletal complaints Integumentary/Breasts: Skin/Breast: Reports system reviewed and no additional complaints, except as docu Neurologic: Reports system reviewed and no additional complaints, except as documented, Denies focal weakness and Denies Sensory deficit (Neuro) Psychiatric: Psychiatric: Reports no additional psychiatric complaints Endocrine: Endocrine: Reports no additional endocrine complaints Hematologic/Lymphatic: Hematologic/Lymphatic: Reports no additional hematologic/lymphatic complaints Allergic/Immunologic: Allergic/Immunologic: Reports no additional allergic/immunologic complaints [facility] Past Medical History Medical History Anemia of chronic disease Chronic obstructive pulmonary disease Erosive esophagitis Glaucoma Legally blind. Hyperlipidemia Hypertension Nausea Tobacco abuse Surgical History Surgical History History of enucleation of eye Right, secondary to recurrent infection. Family History Family History Grandparent Acute myocardial infarction Mother Acute myocardial infarction Father Acute myocardial infarction Sibling Cancer Social History Social History Social History: Surrogate decision maker: Svitlana Hines, . Code status: Full code. Smoking packs per day: 1 Smoking cigarettes per day: 20.0 Years smoked: 30 Smoking pack-years: 30.00 Smoking status: Current every day smoker Tobacco type: cigarettes Alcohol intake: current Drinks per week: 1 Substance use: never Substance use type: does not use Additional living arrangements comments: The patient lives with his in [place]. 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 Gender identity (if verbalized by the patient): Male Spiritual care concerns: No Meds Home Medications and Allergies Home Medications Medication Instructions Recorded Confirmed Type albuterol sulfate 1 puff INHALATION PRN PRN 03/02/21 04/27/21 History budesonide-formoterol [Symbicort] 1 puff INHALATION BID 03/02/21 04/27/21 History losartan 50 mg PO DAILY 03/02/21 04/27/21 History montelukast 10 mg PO DAILY 03/02/21 04/27/21 History pravastatin 80 mg
[2021-04-27] MEDS: SODIUM CHLORIDE 0.9% IV 1,000 ML 75 ML IV CONT (23:46)
[2021-04-28] VITALS (16 sets, daily range): BP systolic 100–129; BP diastolic 51–54; PULSE 68–97; RESP 16–20; TEMP 36.5–38.4; O2SAT 96–100
[2021-04-28] MEDS: METOCLOPRAMIDE HCL INJ 10 MG/2 ML VIAL IV PUSH ×5 (01:49→23:03)
[2021-04-28] MEDS: IPRATROPIUM BR 0.02% INH SOLN 0.5 MG/2.5 ML VIAL INHALATION ×4 (02:14→23:44)
[2021-04-28] MEDS: ALBUTEROL SULFATE NEB 2.5 MG/0.5 ML INH 5 MG INHALATION ×4 (02:14→23:44)
[2021-04-28] MEDS: BACLOFEN 10 MG TABLET PO ×3 (05:56→21:05)
[2021-04-28] MEDS: SUCRALFATE SUSP 100 MG/ML 10 ML UDC 1000 MG PO ×4 (05:57→21:05)
[2021-04-28] MEDS: MONTELUKAST SODIUM 10 MG TABLET PO (08:10)
[2021-04-28] MEDS: PANTOPRAZOLE 40 MG TABLET PO ×2 (08:10→17:06)
[2021-04-28] MEDS: LOSARTAN POTASSIUM 50 MG TABLET PO (08:10)
[2021-04-28] MEDS: CYANOCOBALAMIN 1,000 MCG TABLET 2000 MCG PO (08:10)
[2021-04-28] MEDS: TIMOLOL MALEATE 0.5% OP SOLN 5 ML BOTTLE 1 DROP LEFT EYE ×3 (08:10→17:06)
[2021-04-28] MEDS: chlorproMAZINE HCL 25 MG TABLET PO ×4 (08:10→21:05)
[2021-04-28] MEDS: CHOLECALCIFEROL 1,000 UNITS TABLET 1000 UNITS PO (08:10)
[2021-04-28] MEDS: ENOXAPARIN 40 MG/0.4 ML SYRINGE SUB-Q (09:54)
--- NOTE | 2021-04-28 14:58 | PM.IMPN ---
Progress Note: A&P Assessment and Plan (1) Multifocal pneumonia: Code(s): J18.9 - Pneumonia, unspecified organism Status: Acute Assessment and Plan: 04/28/21 14:58Patient is a 60-year-old male with history of peptic ulcer disease, hypertension and glaucoma presented emergency department with complaint of nausea or vomiting generalized weak and persistent hiccups, patient was recently seen in the hospital and was treated for pneumonia and his hiccups had improved, emergency depart patient had a chest X shows airspace opacity in the lower lung zone with worsening on the right consistent with atelectasis/scarring versus pneumonia. patient is being treated with Rocephin azithromycin, there is also concern the patient may have COVID being tested an isolated, will continue to monitor and further recommendation to follow. (2) Acute hyponatremia: Code(s): E87.1 - Hypo-osmolality and hyponatremia Status: Acute Assessment and Plan: most likely secondary dehydration poor p.o. intake will gently hydrate the patient and monitor. (3) Chronic hiccups: Code(s): R06.6 - Hiccough Status: Chronic Assessment and Plan: etiology uncertain, on last presentation after treated for pneumonia patient's symptoms resolved, will continue to monitor (4) Nausea and vomiting: Code(s): R11.2 - Nausea with vomiting, unspecified Status: Acute Assessment and Plan: if symptoms persist will consult GI for further recommendation (5) Weight loss: Code(s): R63.4 - Abnormal weight loss Status: Acute Assessment and Plan: most likely secondary to nausea or vomiting and poor p.o. intake will consult dietitian for further recommendation (6) Tobacco abuse: Code(s): Z72.0 - Tobacco use Status: Acute Assessment and Plan: patient is encouraged to stop smoking (7) Chronic obstructive pulmonary disease: Code(s): J44.9 - Chronic obstructive pulmonary disease, unspecified Status: Chronic Assessment and Plan: will continue home regimen Subjective Date/time seen: 04/28/21 14:58Patient is a 60-year-old male with history of peptic ulcer disease, hypertension and glaucoma presented emergency department with complaint of nausea or vomiting generalized weak and persistent hiccups, patient was recently seen in the hospital and was treated for pneumonia and his hiccups had improved, emergency depart patient had a chest X shows airspace opacity in the lower lung zone with worsening on the right consistent with atelectasis/scarring versus pneumonia. patient is being treated with Rocephin azithromycin, there is also concern the patient may have COVID being tested an isolated, will continue to monitor and further recommendation to follow. Review of Systems Review of Systems: All systems reviewed & are unremarkable except as noted in HPI and below Exam Narrative: patient appears chronically ill Patient is comfortable, NAD HEENT: eyes are clear and none icteric LUNGS:Normal respiratory effort ABD: not distended Lower extremities: no edema SKIN: nonjaundiced Neuro: grossly intact normal speech. Objective Data Vital Signs Vital Signs: Vital Signs - 24 hr 04/27/21 17:17 04/27/21 19:52 04/27/21 20:57 Temperature 99.8 F H Pulse Rate 80 70 73 Respiratory Rate 16 17 18 Blood Pressure 158/72 H 158/75 H 148/72 H Pulse Oximetry 97 100 98 04/27/21 22:00 04/27/21 22:40 04/27/21 22:50 Temperature 99.4 F Pulse Rate 77 70 80 Respiratory Rate 18 16 18 Blood Pressure 113/54 L 130/74 122/64 Pulse Oximetry 95 99 96 04/28/21 00:00 04/28/21 02:16 04/28/21 02:26 Temperature Pulse Rate 76 88 93 Respiratory Rate 18 20 Blood Pressure Pulse Oximetry 04/28/21 03:41 04/28/21 03:44 04/28/21 04:00 Temperature 101.2 F H 101.0 F H Pulse Rate 97 85 Respiratory Rate 18 Blood Pressure 108/54 L Pulse Oximetry 96 04/28/21
[2021-04-28 17:31] LABS: SARS-CoV-2 RNA PCR Negative
[2021-04-28] MEDS: SODIUM CHLORIDE 0.9% IV 1,000 ML 75 ML IV CONT (21:05)
--- NOTE | 2021-04-28 23:44 | PCRCNOTE ---
Window of time for administration has passed. See next scheduled administration.
[2021-04-29] VITALS (18 sets, daily range): BP systolic 113–142; BP diastolic 60–71; PULSE 62–96; RESP 18–20; TEMP 35.9–36.9; O2SAT 91–99
[2021-04-29] MEDS: IPRATROPIUM BR 0.02% INH SOLN 0.5 MG/2.5 ML VIAL INHALATION ×4 (02:03→20:16)
[2021-04-29] MEDS: ALBUTEROL SULFATE NEB 2.5 MG/0.5 ML INH 5 MG INHALATION ×4 (02:03→20:16)
[2021-04-29] MEDS: SUCRALFATE SUSP 100 MG/ML 10 ML UDC 1000 MG PO ×4 (05:39→21:14)
[2021-04-29] MEDS: BACLOFEN 10 MG TABLET PO ×3 (05:39→21:14)
[2021-04-29 06:27] LABS: Hemoglobin 11.8 g/dL (14.0-18.0); Mean Corpuscular HGB Conc 31.9 g/dl (32-36); Mean Corpuscular Hemoglobin 27.8 pg (26-34); Mean Corpuscular Volume 87.1 fl (80-100); Mean Platelet Volume 11.7 fl (7.4-10.4); Platelet Count Result 163 k/mm3 (150-375); Red Blood Count 4.25 M/mm3 (4.6-6.20); Red Cell Distribution Width 16.6 % (11.5-14.5); White Blood Count 7.6 K/mm3 (4.5-10.0)
[2021-04-29 06:49] LABS: Alanine Aminotransferase 10 U/L (4-50); Albumin Level 3.4 g/dL (3.5-5.1); Alkaline Phosphatase 56 U/L (38-126); Anion Gap 6 mmol/L (8-16); Aspartate Amino Transferase 18 U/L (17-59); Bilirubin,Total 0.2 mg/dL (0.2-1.3); Blood Urea Nitrogen 14 mg/dL (9-20); CRP 8.7 mg/dL (<1.0); Calcium 9.3 mg/dL (8.4-10.2); Carbon Dioxide 26 mmol/L (22-30); Chloride 105 mmol/L (98-107); Estimated CRCL calculation 55 ml/min; Estimated Glomerular Filt Rate > 60; Glucose 88 mg/dL (65-110); Potassium 4.7 mmol/L (3.4-5.0); Sodium 137 mmol/L (137-145)
[2021-04-29] MEDS: LOSARTAN POTASSIUM 50 MG TABLET PO (08:36)
[2021-04-29] MEDS: CHOLECALCIFEROL 1,000 UNITS TABLET 1000 UNITS PO (08:36)
[2021-04-29] MEDS: chlorproMAZINE HCL 25 MG TABLET PO ×4 (08:36→21:14)
[2021-04-29] MEDS: TIMOLOL MALEATE 0.5% OP SOLN 5 ML BOTTLE 1 DROP LEFT EYE ×3 (08:37→17:16)
[2021-04-29] MEDS: MONTELUKAST SODIUM 10 MG TABLET PO (08:37)
[2021-04-29] MEDS: CYANOCOBALAMIN 1,000 MCG TABLET 2000 MCG PO (08:37)
[2021-04-29] MEDS: PANTOPRAZOLE 40 MG TABLET PO ×2 (08:37→17:16)
[2021-04-29] MEDS: SODIUM CHLORIDE 0.9% IV 1,000 ML 75 ML IV CONT (12:02)
--- NOTE | 2021-04-29 12:50 | PM.IMPN ---
Progress Note: A&P Assessment and Plan (1) Multifocal pneumonia: Code(s): J18.9 - Pneumonia, unspecified organism Status: Acute Assessment and Plan: Started on Zithromax and Rocephin Blood culture 1/2 positive for Gram-positive bacilli likely contamination will await the identification Supportive care Review of his other chest x-rays reveal pneumonia started since March 10 which is still yet to resolve. Repeat CT chest on 03/31/2021 reveals improvement however still persistent opacities in multifocal areas of the lungs. Chest x-ray this admission reveals similar opacities no CT scan has been done this admission. I believe repeat CT chest in short interval would be advisable of his opacities and/or follow-up with Pulmonary as an outpatient basis for continued evaluation With his chronic hiccups a swallow study has been performed on 03/03/21 which showed normal swallowing function without aspiration or penetration (2) Acute hyponatremia: Code(s): E87.1 - Hypo-osmolality and hyponatremia Status: Acute Assessment and Plan: Likely secondary to GI losses NS 0.9 normal saline Repeat sodium level back to normal reported to be drinking excess amount of water at home and he has not had similar episode with severe hyponatremia with rapid correction with fluid restriction when he gets to the hospital (3) Chronic hiccups: Code(s): R06.6 - Hiccough Status: Chronic Assessment and Plan: Patient with extensive workup in our hospital Started metoclopramide Started baclofen PPI Continue promethazine Recent EGD with gastritis and esophagitis on PPI and kappa (4) Nausea and vomiting: Code(s): R11.2 - Nausea with vomiting, unspecified Status: Acute Assessment and Plan: Supportive care (5) Weight loss: Code(s): R63.4 - Abnormal weight loss Status: Acute Assessment and Plan: Likely secondary to above (6) Tobacco abuse: Code(s): Z72.0 - Tobacco use Status: Acute Assessment and Plan: Nicotine patch as needed (7) Chronic obstructive pulmonary disease: Code(s): J44.9 - Chronic obstructive pulmonary disease, unspecified Status: Chronic Assessment and Plan: Continue breathing treatments Continue home meds Subjective Date/time seen: 04/29/21 12:50 Interval history: Feeling better. No more headache up since yesterday afternoon. He has chronic hiccups for several years. Has seen GI ENT and follows with them regularly. He has cough slimy expectoration. Was found to have pneumonia COVID negative. No fever or chills reported Review of Systems Review of Systems: All systems reviewed & are unremarkable except as noted in HPI and below Exam Narrative: GENERAL: The patient is well developed, not in acute distress HEENT: Nonicteric sclerae, PERRLA, EOMI. Oropharynx clear. Moist mucous membranes. Conjunctivae appear well perfused. CHEST: Chest wall is nontender. HEART: Regular rate and rhythm without murmur, rubs, or gallops LUNGS: Coarse breath sounds bilaterally no wheezes no respiratory distress ABDOMEN: Soft, positive bowel sounds, non-tender, no organomegaly. SKIN: No rash, no excessive bruising, petechiae, or purpura. NEUROLOGIC: Cranial nerves II-XII intact, alert and oriented x 3, no gross motor deficits EXTREMITIES: no edema, cyanosis or clubbing Objective Data Vital Signs Vital Signs: Vital Signs - 24 hr 04/28/21 14:36 04/28/21 14:42 04/28/21 16:00 Temperature 98.1 F Pulse Rate 92 90 73 Respiratory Rate 18 18 20 Blood Pressure 129/51 L Pulse Oximetry 97 04/28/21 20:00 04/28/21 22:00 04/29/21 00:00 Temperature 99.2 F Pulse Rate 92 74 64 Respiratory Rate 16 Blood Pressure 102/53 L Pulse Oximetry 96 04/29/21 02:03 04/29/21 02:14 04/29/21 04:00 Temperature Pulse Rate 90 90 62 Respiratory Rate 18 18 Blood Pressure Pulse Oximetry 04/29/21 06:00 04/29/21 08:42 08
[2021-04-30] VITALS (15 sets, daily range): BP systolic 120–157; BP diastolic 42–78; PULSE 67–82; RESP 16–20; TEMP 36.3–36.4; O2SAT 97–98
[2021-04-30] MEDS: ALBUTEROL SULFATE NEB 2.5 MG/0.5 ML INH 5 MG INHALATION ×4 (02:23→20:35)
[2021-04-30] MEDS: IPRATROPIUM BR 0.02% INH SOLN 0.5 MG/2.5 ML VIAL INHALATION ×4 (02:24→20:35)
[2021-04-30] MEDS: SODIUM CHLORIDE 0.9% IV 1,000 ML 75 ML IV CONT ×2 (02:41→17:38)
[2021-04-30] MEDS: SUCRALFATE SUSP 100 MG/ML 10 ML UDC 1000 MG PO ×4 (06:06→21:13)
[2021-04-30] MEDS: BACLOFEN 10 MG TABLET PO ×3 (06:06→21:13)
[2021-04-30 06:34] LABS: Hematocrit 33.6 % (42.0-52.0); Hemoglobin 10.9 g/dL (14.0-18.0); Mean Corpuscular HGB Conc 32.4 g/dl (32-36); Mean Corpuscular Hemoglobin 27.2 pg (26-34); Mean Corpuscular Volume 83.8 fl (80-100); Mean Platelet Volume 11.4 fl (7.4-10.4); Platelet Count Result 176 k/mm3 (150-375); Red Blood Count 4.01 M/mm3 (4.6-6.20); Red Cell Distribution Width 16.3 % (11.5-14.5); White Blood Count 7.1 K/mm3 (4.5-10.0)
[2021-04-30 07:23] LABS: Alanine Aminotransferase 10 U/L (4-50); Albumin Level 3.4 g/dL (3.5-5.1); Alkaline Phosphatase 55 U/L (38-126); Anion Gap 10 mmol/L (8-16); Aspartate Amino Transferase 16 U/L (17-59); Bilirubin,Total 0.3 mg/dL (0.2-1.3); Blood Urea Nitrogen 7 mg/dL (9-20); CRP 12.9 mg/dL (<1.0); Calcium 9.1 mg/dL (8.4-10.2); Carbon Dioxide 21 mmol/L (22-30); Chloride 105 mmol/L (98-107); Estimated CRCL calculation 83 ml/min; Estimated Glomerular Filt Rate > 60; Glucose 100 mg/dL (65-110); Potassium 3.9 mmol/L (3.4-5.0); Sodium 136 mmol/L (137-145)
[2021-04-30] MEDS: MONTELUKAST SODIUM 10 MG TABLET PO (08:09)
[2021-04-30] MEDS: CHOLECALCIFEROL 1,000 UNITS TABLET 1000 UNITS PO (08:09)
[2021-04-30] MEDS: PANTOPRAZOLE 40 MG TABLET PO ×2 (08:09→17:39)
[2021-04-30] MEDS: CYANOCOBALAMIN 1,000 MCG TABLET 2000 MCG PO (08:09)
[2021-04-30] MEDS: chlorproMAZINE HCL 25 MG TABLET PO ×4 (08:09→21:13)
[2021-04-30] MEDS: LOSARTAN POTASSIUM 50 MG TABLET PO (08:09)
[2021-04-30] MEDS: TIMOLOL MALEATE 0.5% OP SOLN 5 ML BOTTLE 1 DROP LEFT EYE ×2 (12:29→17:38)
--- NOTE | 2021-04-30 13:30 | PM.IMPN ---
Progress Note: A&P Assessment and Plan (1) Multifocal pneumonia: Code(s): J18.9 - Pneumonia, unspecified organism Status: Acute Assessment and Plan: Started on Zithromax and Rocephin Blood culture 1/2 positive for Gram-positive bacilli likely contamination will await the identification Supportive care Review of his other chest x-rays reveal pneumonia started since March 10 which is still yet to resolve. Repeat CT chest on 03/31/2021 reveals improvement however still persistent opacities in multifocal areas of the lungs. Chest x-ray this admission reveals similar opacities no CT scan has been done this admission. I believe repeat CT chest in short interval would be advisable of his opacities and/or follow-up with Pulmonary as an outpatient basis for continued evaluation With his chronic hiccups a swallow study has been performed on 03/03/21 which showed normal swallowing function without aspiration or penetration cont abx therapy (2) Acute hyponatremia: Code(s): E87.1 - Hypo-osmolality and hyponatremia Status: Acute Assessment and Plan: Likely secondary to GI losses NS 0.9 normal saline Repeat sodium level back to normal reported to be drinking excess amount of water at home and he has not had similar episode with severe hyponatremia with rapid correction with fluid restriction when he gets to the hospital improved (3) Chronic hiccups: Code(s): R06.6 - Hiccough Status: Chronic Assessment and Plan: Patient with extensive workup in our hospital Started metoclopramide Started baclofen PPI Continue promethazine Recent EGD with gastritis and esophagitis on PPI and kappa normal swallowing fxn Thorazine PRN (4) Nausea and vomiting: Code(s): R11.2 - Nausea with vomiting, unspecified Status: Acute Assessment and Plan: Supportive care (5) Weight loss: Code(s): R63.4 - Abnormal weight loss Status: Acute Assessment and Plan: Likely secondary to above (6) Tobacco abuse: Code(s): Z72.0 - Tobacco use Status: Acute Assessment and Plan: Nicotine patch as needed (7) Chronic obstructive pulmonary disease: Code(s): J44.9 - Chronic obstructive pulmonary disease, unspecified Status: Chronic Assessment and Plan: Continue breathing treatments Continue home meds Subjective Date/time seen: 04/30/21 13:30 pt feeling better, chart reviewed was just admitted for similar complaints. Exam Narrative: GENERAL: well developed, not in acute distress HEENT: Nonicteric sclerae, blind, Oropharynx clear. Moist mucous membranes. Conjunctivae appear well perfused. CHEST: Chest wall is nontender. HEART: Regular rate and rhythm LUNGS: Coarse breath sounds bilaterally no wheezes no respiratory distress ABDOMEN: Soft, positive bowel sounds, non-tender, no organomegaly. SKIN: No rash, no excessive bruising, petechiae, or purpura. NEUROLOGIC: Cranial nerves II-XII intact, alert and oriented x 3, no gross motor deficits EXTREMITIES: no edema, cyanosis or clubbing Objective Data Vital Signs Vital Signs: Vital Signs - 24 hr 04/29/21 14:00 04/29/21 14:17 04/29/21 14:32 Temperature 96.7 F L Pulse Rate 73 75 78 Respiratory Rate 18 20 20 Blood Pressure 117/71 Pulse Oximetry 98 04/29/21 16:00 04/29/21 20:00 04/29/21 20:17 Temperature Pulse Rate 96 84 70 Respiratory Rate 20 Blood Pressure Pulse Oximetry 04/29/21 20:21 04/29/21 20:25 04/29/21 22:00 Temperature 98.4 F Pulse Rate 74 81 Respiratory Rate 20 18 Blood Pressure 142/60 H Pulse Oximetry 92 99 04/30/21 00:00 04/30/21 02:24 04/30/21 02:35 Temperature Pulse Rate 71 75 77 Respiratory Rate Blood Pressure Pulse Oximetry 04/30/21 04:00 04/30/21 06:00 04/30/21 08:00 Temperature 97.4 F L Pulse Rate 74 80 Respiratory Rate 18 Blood Pressure 157/78 H Pulse Oximetry 98 98 04/30/21 08:32 08
--- NOTE | 2021-04-30 14:00 | PC.NURSE ---
Missed call from patient's . Call returned and left message at [phone]
[2021-05-01] VITALS (14 sets, daily range): BP systolic 132–154; BP diastolic 64–76; PULSE 56–75; RESP 16–20; TEMP 36.7–36.9; O2SAT 96–100
[2021-05-01] MEDS: ALBUTEROL SULFATE NEB 2.5 MG/0.5 ML INH 5 MG INHALATION ×4 (01:55→21:07)
[2021-05-01] MEDS: IPRATROPIUM BR 0.02% INH SOLN 0.5 MG/2.5 ML VIAL INHALATION ×4 (01:56→21:07)
[2021-05-01] MEDS: SUCRALFATE SUSP 100 MG/ML 10 ML UDC 1000 MG PO ×4 (05:13→21:00)
[2021-05-01] MEDS: BACLOFEN 10 MG TABLET PO ×3 (05:13→20:59)
[2021-05-01 07:21] LABS: Hematocrit 35.2 % (42.0-52.0); Hemoglobin 11.2 g/dL (14.0-18.0); Mean Corpuscular HGB Conc 31.8 g/dl (32-36); Mean Corpuscular Hemoglobin 27.6 pg (26-34); Mean Corpuscular Volume 86.7 fl (80-100); Mean Platelet Volume 11.4 fl (7.4-10.4); Platelet Count Result 188 k/mm3 (150-375); Red Blood Count 4.06 M/mm3 (4.6-6.20); Red Cell Distribution Width 16.5 % (11.5-14.5); White Blood Count 6.3 K/mm3 (4.5-10.0)
[2021-05-01 07:40] LABS: Alanine Aminotransferase 11 U/L (4-50); Albumin Level 3.4 g/dL (3.5-5.1); Alkaline Phosphatase 56 U/L (38-126); Anion Gap 10 mmol/L (8-16); Aspartate Amino Transferase 18 U/L (17-59); Bilirubin,Total 0.3 mg/dL (0.2-1.3); Blood Urea Nitrogen 7 mg/dL (9-20); CRP 7.5 mg/dL (<1.0); Calcium 9.5 mg/dL (8.4-10.2); Carbon Dioxide 22 mmol/L (22-30); Chloride 106 mmol/L (98-107); Estimated CRCL calculation 83 ml/min; Estimated Glomerular Filt Rate > 60; Glucose 98 mg/dL (65-110); Potassium 4.1 mmol/L (3.4-5.0); Sodium 138 mmol/L (137-145)
[2021-05-01] MEDS: TIMOLOL MALEATE 0.5% OP SOLN 5 ML BOTTLE 1 DROP LEFT EYE ×3 (09:04→16:51)
[2021-05-01] MEDS: LOSARTAN POTASSIUM 50 MG TABLET PO (09:04)
[2021-05-01] MEDS: chlorproMAZINE HCL 25 MG TABLET PO ×4 (09:04→20:59)
[2021-05-01] MEDS: CYANOCOBALAMIN 1,000 MCG TABLET 2000 MCG PO (09:04)
[2021-05-01] MEDS: CHOLECALCIFEROL 1,000 UNITS TABLET 1000 UNITS PO (09:04)
[2021-05-01] MEDS: MONTELUKAST SODIUM 10 MG TABLET PO (09:04)
[2021-05-01] MEDS: PANTOPRAZOLE 40 MG TABLET PO ×2 (09:04→16:50)
--- NOTE | 2021-05-01 11:52 | PM.IMPN ---
Progress Note: A&P Assessment and Plan (1) Multifocal pneumonia: Code(s): J18.9 - Pneumonia, unspecified organism Status: Acute Assessment and Plan: Started on Zithromax and Rocephin Blood culture 1/2 positive for Gram-positive bacilli likely contamination will await the identification Supportive care Review of his other chest x-rays reveal pneumonia started since March 10 which is still yet to resolve. Repeat CT chest on 03/31/2021 reveals improvement however still persistent opacities in multifocal areas of the lungs. Chest x-ray this admission reveals similar opacities no CT scan has been done this admission. I believe repeat CT chest in short interval would be advisable of his opacities and/or follow-up with Pulmonary as an outpatient basis for continued evaluation With his chronic hiccups a swallow study has been performed on 03/03/21 which showed normal swallowing function without aspiration or penetration cont abx therapy 05/01/2021 CT imaging still shows ongoing multifocal pneumonia that does not appear to have improved since imaging performed on 03/31/2021. Consult to pulmonology requested. (2) Acute hyponatremia: Code(s): E87.1 - Hypo-osmolality and hyponatremia Status: Acute Assessment and Plan: Likely secondary to GI losses NS 0.9 normal saline Repeat sodium level back to normal reported to be drinking excess amount of water at home and he has not had similar episode with severe hyponatremia with rapid correction with fluid restriction when he gets to the hospital improved (3) Chronic hiccups: Code(s): R06.6 - Hiccough Status: Chronic Assessment and Plan: Patient with extensive workup in our hospital Started metoclopramide Started baclofen PPI Continue promethazine Recent EGD with gastritis and esophagitis on PPI and kappa normal swallowing fxn Thorazine PRN (4) Nausea and vomiting: Code(s): R11.2 - Nausea with vomiting, unspecified Status: Acute Assessment and Plan: Supportive care (5) Weight loss: Code(s): R63.4 - Abnormal weight loss Status: Acute Assessment and Plan: Likely secondary to above (6) Tobacco abuse: Code(s): Z72.0 - Tobacco use Status: Acute Assessment and Plan: Nicotine patch as needed (7) Chronic obstructive pulmonary disease: Code(s): J44.9 - Chronic obstructive pulmonary disease, unspecified Status: Chronic Assessment and Plan: Continue breathing treatments Continue home meds Subjective Date/time seen: 05/01/21 11:52 patient doing very well comfortable on room air denies any complaints of feeling unwell. Per review of medical record prior CT imaging showed multifocal pneumonia and short-term follow-up was recommended. Plan was to order the CT and review results prior to discharge today, however, upon review of imaging findings specialty consult requested. Exam Narrative: GENERAL: well developed, not in acute distress HEENT: Nonicteric sclerae, blind, Oropharynx clear. Moist mucous membranes. Conjunctivae appear well perfused. CHEST: Chest wall is nontender. HEART: Regular rate and rhythm LUNGS: Coarse breath sounds bilaterally no wheezes no respiratory distress on room air SKIN: No rash, no excessive bruising, petechiae, or purpura. NEUROLOGIC: Cranial nerves II-XII intact, alert and oriented x 3, no gross motor deficits EXTREMITIES: no edema, cyanosis or clubbing Objective Data Vital Signs Vital Signs: Vital Signs - 24 hr 04/30/21 16:00 04/30/21 20:35 04/30/21 20:48 Temperature Pulse Rate 67 72 75 Respiratory Rate 18 18 Blood Pressure Pulse Oximetry 04/30/21 22:00 05/01/21 01:55 05/01/21 02:04 Temperature 97.3 F L Pulse Rate 72 73 60 Respiratory Rate 20 18 18 Blood Pressure 120/42 L Pulse Oximetry 97 05/01/21 06:00 05/01/21 09:33 05/01/21 09:41 Temperature 98.5 F Pulse Rate 72 66 75 Respirator
--- NOTE | 2021-05-01 16:05 | PM.CNPUL ---
Assessment and Plan Assessment and plan (1) Multifocal pneumonia: Code(s): J18.9 - Pneumonia, unspecified organism Status: Acute Assessment and Plan: recurrent pneumonia; February, March and Apr 2021, now improved; infiltrates since February 2021; initially had RML and LLL infiltrates, worsened in March, now improved. These are migratory. He had had a swallow evaluation that is normal March 03. He has no swallowing complaints. This does not appear to be consistent with aspiration. He is on azithromycin and ceftriaxone in patient. He was on Augmentin 875 mg bid x 5 days March 05 after first pneumonia. This appears to be pneumonia, however he could have a noninfectious etiology such as cryptogenic organizing pneumonia or pulmonary vasculitis or he has not had serologic testing. He is improved compared to admission, on room air, has not had hiccups for days, and is not as short of breath. his sodium is normal, was 121 8/8, now 138. WBC normal now 8.1 ( 11.5) If he continues to have infiltrates, Dr Banks can decide if he wants to perform a bronchoscopy to make a definitive diagnosis. There is no echo in our system, and he has not submitted sputum specimens as he has not had sputum production. Has COPD and smokes, just stopped recently. Should follow up after discharge in 1-2 weeks with his outdoor education teacher. Dr Tasia Banks [address], [address] [place]; [address] please send discharge summary to him. (2) Asthma-COPD overlap syndrome: Code(s): J44.9 - Chronic obstructive pulmonary disease, unspecified Status: Acute Assessment and Plan: Treated by Dr Banks, uses Symbicort, albuterol,, and has a nebulizer wit h2 medications per patient, as well as 2 pills for his breathing, Singulair. He can go home on his usual COPD Rx with an increase in his Symbicort dose to 160/4.5 (now on 80/4.5) TWO puffs BID, albuterol inhaler, doxycycline 100 mg x 7 days for recurrent pneumonia/COPD. (3) Tobacco abuse: Code(s): Z72.0 - Tobacco use Status: Acute Assessment and Plan: Just quit at most 2 weeks ago, 40 years of tobacco History of Present Illness History of Present Illness Consult date: 05/02/21 Requesting physician: Mechelle Rojas MD Reason for consult: pneumonia Chief complaint: Pneumonia, Hyponatremia, Hiccups Narrative: Followed by outdoor education teacher Dr Tasia Banks, [facility], [address], [place]; [address]; please send discharge summary to him. NEW: Mark Hines is a 60 year old man with asthma/COPD who was admitted 04/27/21 with recurrent pneumonia with coughing, intractable hiccups which he has had a for a year, none for the last several days. This is his 3rd pneumonia in as many months, now with scant infiltrate in both bases posteriorly. He uses Symbicort and albuterol p.r.n. Says he has a nebulizer at home, has 2 medications that he uses in it. Home medicine list does not show nebulized medications. He was improving and close to discharge when he had a repeat chest CT showing basilar infiltrates, and discharge was held. He is comfortable on room air, not coughing now, no hiccups for a few days, and is not as short of breath. Mar 02- First episode of pneumonia documented was during admission for N/V, and chronic hiccups with multifocal pneumonia, anemia; sodium was normal in February. - readmitted with N/V and hiccups Na+ 115, Nausea/vomiting, endoscopy = grade III esophagitis and moderate gastritis, normal swallow evaluation, home on PPI. Apr 27 today; readmitted with coughing without sputum, intractable hiccups, weight loss, nausea and vomiting at times,chills, CT chest = worsening in lung infiltrates posterior bases on chest CT Na + 121 & chloride of 88. He is imp
[2021-05-01] MEDS: SODIUM CHLORIDE 0.9% IV 1,000 ML 75 ML IV CONT (21:06)
[2021-05-02] VITALS (11 sets, daily range): BP systolic 141–168; BP diastolic 68–91; PULSE 58–75; RESP 12–18; TEMP 36.5–36.7; O2SAT 96–97
[2021-05-02] MEDS: IPRATROPIUM BR 0.02% INH SOLN 0.5 MG/2.5 ML VIAL INHALATION ×3 (03:02→14:09)
[2021-05-02] MEDS: ALBUTEROL SULFATE NEB 2.5 MG/0.5 ML INH 5 MG INHALATION ×3 (03:02→14:09)
[2021-05-02] MEDS: SUCRALFATE SUSP 100 MG/ML 10 ML UDC 1000 MG PO ×2 (05:44→11:56)
[2021-05-02] MEDS: BACLOFEN 10 MG TABLET PO ×2 (05:44→14:57)
[2021-05-02 06:38] LABS: Hematocrit 33.9 % (42.0-52.0); Hemoglobin 11.3 g/dL (14.0-18.0); Mean Corpuscular HGB Conc 33.3 g/dl (32-36); Mean Corpuscular Hemoglobin 27.8 pg (26-34); Mean Corpuscular Volume 83.3 fl (80-100); Mean Platelet Volume 10.9 fl (7.4-10.4); Platelet Count Result 214 k/mm3 (150-375); Red Blood Count 4.07 M/mm3 (4.6-6.20); Red Cell Distribution Width 15.9 % (11.5-14.5); White Blood Count 8.1 K/mm3 (4.5-10.0)
[2021-05-02 09:43] LABS: Alanine Aminotransferase 12 U/L (4-50); Albumin Level 3.4 g/dL (3.5-5.1); Alkaline Phosphatase 61 U/L (38-126); Anion Gap 8 mmol/L (8-16); Aspartate Amino Transferase 17 U/L (17-59); Bilirubin,Total 0.3 mg/dL (0.2-1.3); Blood Urea Nitrogen 9 mg/dL (9-20); CRP 4.6 mg/dL (<1.0); Calcium 9.6 mg/dL (8.4-10.2); Carbon Dioxide 24 mmol/L (22-30); Chloride 106 mmol/L (98-107); Estimated CRCL calculation 83 ml/min; Estimated Glomerular Filt Rate > 60; Glucose 90 mg/dL (65-110); Potassium 4.2 mmol/L (3.4-5.0); Sodium 138 mmol/L (137-145)
[2021-05-02] MEDS: TIMOLOL MALEATE 0.5% OP SOLN 5 ML BOTTLE 1 DROP LEFT EYE ×2 (09:56→14:57)
[2021-05-02] MEDS: chlorproMAZINE HCL 25 MG TABLET PO ×2 (09:57→14:57)
[2021-05-02] MEDS: PANTOPRAZOLE 40 MG TABLET PO (09:57)
[2021-05-02] MEDS: MONTELUKAST SODIUM 10 MG TABLET PO (09:57)
[2021-05-02] MEDS: CYANOCOBALAMIN 1,000 MCG TABLET 2000 MCG PO (09:57)
[2021-05-02] MEDS: CHOLECALCIFEROL 1,000 UNITS TABLET 1000 UNITS PO (09:57)
[2021-05-02] MEDS: LOSARTAN POTASSIUM 50 MG TABLET PO (09:57)
[2021-05-02] MEDS: SODIUM CHLORIDE 0.9% IV 1,000 ML 75 ML IV CONT (11:55)
--- NOTE | 2021-05-02 16:36 | PM.DS ---
DS: Admitting Diagnosis Admitting Diagnosis (1) Multifocal pneumonia: Code(s): J18.9 - Pneumonia, unspecified organism Status: Acute Assessment and Plan: Started on Zithromax and Rocephin Await blood culture Supportive care (2) Acute hyponatremia: Code(s): E87.1 - Hypo-osmolality and hyponatremia Status: Acute Assessment and Plan: Likely secondary to GI losses NS 0.9 normal saline Repeat BMP in the morning (3) Chronic hiccups: Code(s): R06.6 - Hiccough Status: Chronic Assessment and Plan: Patient with extensive workup in our hospital Started metoclopramide Started baclofen PPI Continue promethazine (4) Nausea and vomiting: Code(s): R11.2 - Nausea with vomiting, unspecified Status: Acute Assessment and Plan: Supportive care (5) Weight loss: Code(s): R63.4 - Abnormal weight loss Status: Acute Assessment and Plan: Likely secondary to above (6) Tobacco abuse: Code(s): Z72.0 - Tobacco use Status: Acute Assessment and Plan: Nicotine patch as needed (7) Chronic obstructive pulmonary disease: Code(s): J44.9 - Chronic obstructive pulmonary disease, unspecified Status: Chronic Assessment and Plan: Continue breathing treatments Continue home meds DS: Discharge Diagnosis Discharge Diagnosis (1) Normocytic anemia: Code(s): D64.9 - Anemia, unspecified Status: Acute (2) Hyponatremia: Code(s): E87.1 - Hypo-osmolality and hyponatremia Status: Acute (3) Chronic hiccups: Code(s): R06.6 - Hiccough Status: Chronic (4) Asthma-COPD overlap syndrome: Code(s): J44.9 - Chronic obstructive pulmonary disease, unspecified Status: Acute (5) Weight loss: Code(s): R63.4 - Abnormal weight loss Status: Acute (6) Nausea and vomiting: Code(s): R11.2 - Nausea with vomiting, unspecified Status: Acute (7) Nausea: Code(s): R11.0 - Nausea Status: Acute (8) Gastritis: Code(s): K29.70 - Gastritis, unspecified, without bleeding Status: Acute (9) Erosive esophagitis: Code(s): K22.10 - Ulcer of esophagus without bleeding Status: Acute (10) Acute hyponatremia: Code(s): E87.1 - Hypo-osmolality and hyponatremia Status: Acute (11) Hiccups: Code(s): R06.6 - Hiccough Status: Acute (12) Anemia of chronic disease: Code(s): D63.8 - Anemia in other chronic diseases classified elsewhere Status: Chronic (13) Abnormal chest xray: Code(s): R93.89 - Abnormal findings on diagnostic imaging of other specified body structures Status: Acute (14) Multifocal pneumonia: Code(s): J18.9 - Pneumonia, unspecified organism Status: Acute (15) Hiccup: Code(s): R06.6 - Hiccough Status: Acute (16) Tobacco abuse: Code(s): Z72.0 - Tobacco use Status: Acute (17) Glaucoma: Code(s): H40.9 - Unspecified glaucoma Status: Chronic (18) Hypertension: Code(s): I10 - Essential (primary) hypertension Status: Chronic (19) Hyperlipidemia: Code(s): E78.5 - Hyperlipidemia, unspecified Status: Chronic (20) Chronic obstructive pulmonary disease: Code(s): J44.9 - Chronic obstructive pulmonary disease, unspecified Status: Chronic DS: Summary Hospital Course Reason for hospitalization: intractable hiccups and hyponatremia Hospital Course: 60-year-old male admitted to the hospital with multiple complaints including intractable hiccups, weight loss, nausea, nonproductive cough who was subsequently found to have worsening lung infiltrate on imaging and a sodium of 121. He was treated with IV antibiotics for his pneumonia and Pulmonary was consulted when follow up imaging failed to show improvement. Pulm note initially had RML and LLL infiltrates, worsened in March, now improved. These are migratory. He h
== END 2021-05-02 18:05 | disposition home or self-care (01) | DRG 194 ==
LOC: ANHED 20:07 → ANH3MEDSUR 04-28 06:45
PROVIDERS: Emergency Medicine; Family Medicine; Admitting Provider Internal Medicine; Emergency Provider Emergency Medicine; PCP Physician Assistant; Visit Provider Hospitalist
DX: J18.9 Pneumonia, unspecified organism (principal); E87.1 Hypo-osmolality and hyponatremia; J44.0 Chronic obstructive pulmonary disease with (acute) lower respiratory infection; K22.10 Ulcer of esophagus without bleeding; Z20.822 Contact with and (suspected) exposure to COVID-19; R06.6 Hiccough; D63.8 Anemia in other chronic diseases classified elsewhere; K29.70 Gastritis, unspecified, without bleeding; I10 Essential (primary) hypertension; R63.4 Abnormal weight loss; H40.9 Unspecified glaucoma; E78.5 Hyperlipidemia, unspecified; H54.8 Legal blindness, as defined in USA; Z87.891 Personal history of nicotine dependence; Z87.11 Personal history of peptic ulcer disease
CPT/HCPCS: 36415; 71045; 71260; 80053; 81001; 83690; 85025; 85027; 86140; 87040; 94640; 96361; 96365; 96366; 96367; 96372; 96375; 96376; 99285; A9270; C9803; G0378; J0131; J0456; J0696; J0780; J1650; J2405; J2765; J7030; Q9967; U0003; U0005

== ENCOUNTER 2021-07-14 02:47 | Day surgery (SDC) | payer MEDICARE, SELFPAY ==
[2021-06-25 13:47] VITALS: BMI 21.3
[2021-07-14 06:49] VITALS: BP 137/112; PULSE 79; RESP 18; TEMP 36.1; O2SAT 100; BMI 20.7
[2021-07-14] MEDS: LACTATED RINGERS 1,000 ML 150 ML IV CONT (06:52)
--- NOTE | 2021-07-14 07:34 | PM.HPGS ---
History of Present Illness History of Present Illness Consent: Risks, benefits, and alternatives have been discussed and questions answered. Patient agrees to proceed with procedure. Chief complaint: esophagitis, neoplasm screening Narrative: Mark Hines is a 60 year old male with erosive esophagitis now on ppi, less burping. Never had colonoscopy. Review of Systems Constitutional: Constitutional: Denies headache(s) and Denies weakness Eyes: Eyes: Denies blurry vision ENT: Reports Normal hearing present, Denies headache(s) and Denies neck pain Cardiovascular: Cardiovascular: Denies chest pain and Denies dyspnea Respiratory: Respiratory: Denies dyspnea Gastrointestinal: Gastrointestinal: Reports no additional gastrointestinal complaints Genitourinary: Genitourinary: Denies dysuria Musculoskeletal: Musculoskeletal: Denies neck pain Integumentary/Breasts: Skin/Breast: Denies dry skin Neurologic: Reports Normal hearing present, Denies headache(s) and Denies weakness Psychiatric: Psychiatric: Denies anxiety Endocrine: Endocrine: Denies change in body appearance Hematologic/Lymphatic: Hematologic/Lymphatic: Denies easy bleeding Allergic/Immunologic: Allergic/Immunologic: Denies urticaria PMFSH Past Medical History Medical History (Updated 05/15/21 @ 09:51 by Jame Mitchell MD) Anemia of chronic disease Chronic hiccups Chronic obstructive pulmonary disease Colon cancer screening Erosive esophagitis Glaucoma Legally blind. Hyperlipidemia Hypertension Hyponatremia Nausea Normocytic anemia Tobacco abuse Surgical History Surgical History History of enucleation of eye Right, secondary to recurrent infection. Family History Family History Grandparent Acute myocardial infarction Mother Acute myocardial infarction Father Acute myocardial infarction Sibling Cancer Social History Social History Social History: Surrogate decision maker: Svitlana Hines, . Code status: Full code. Smoking packs per day: 1 Smoking cigarettes per day: 20.0 Years smoked: 30 Smoking pack-years: 30.00 Smoking status: Current every day smoker Tobacco type: cigarettes Alcohol intake: current Drinks per week: 1 Substance use: never Substance use type: does not use Living arrangements: with family Additional living arrangements comments: The patient lives with his in [place]. 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 Gender identity (if verbalized by the patient): Male Spiritual care concerns: No Meds Home Medications and Allergies Home Medications Medication Instructions Recorded Confirmed Type albuterol sulfate 1 puff INHALATION PRN PRN 03/02/21 04/27/21 History losartan 50 mg PO DAILY 03/02/21 04/27/21 History montelukast 10 mg PO DAILY 03/02/21 04/27/21 History pravastatin 80 mg PO DAILY 03/02/21 04/27/21 History timolol maleate 1 drp LEFT EYE TID 03/02/21 04/27/21 History cholecalciferol (vitamin D3) 25 mcg PO DAILY 03/29/21 04/27/21 History [Vitamin D3] cyanocobalamin (vitamin B-12) 2,000 mcg PO DAILY 03/29/21 04/27/21 History prochlorperazine maleate 10 mg PO Q6H PRN #30 tablet 04/01/21 04/27/21 Rx [Compazine] sucralfate 1,000 mg PO ACHS 14 Days #560 ml 04/01/21 04/27/21 Rx hydrochlorothiazide 12.5 mg PO DAILY 04/27/21 04/27/21 History albuterol sulfate 1 inh INHALATION QID PRN #8.5 g 05/02/21 Rx budesonide-formoterol [Symbicort] 2 puff INHALATION Q12H #10.2 g 05/02/21 Rx chlorpromazine 25 mg PO QID PRN #20 tablet 05/02/21 Rx doxycycline hyclate 100 mg PO DAILY #14 cap 05/02/21 Rx pantoprazole 40 mg tablet,delayed 40 mg PO BID 30 Days #60 tablet 05/15/21 05/15/21 Rx release Allergies Allergy/AdvRe
[2021-07-14 07:59] VITALS: BP 108/65; PULSE 63; RESP 22; O2SAT 100
[2021-07-14 08:09] VITALS: BP 127/76; PULSE 62; RESP 20; O2SAT 100
[2021-07-14 08:19] VITALS: BP 143/101; PULSE 61; RESP 25; O2SAT 100
== END 2021-07-14 08:35 | disposition home or self-care (01) ==
PROVIDERS: PCP Physician Assistant; Visit Provider Internal Medicine Gastroenterology
PROC: 0DJ08ZZ Inspection of Upper Intestinal Tract, Via Natural or Artificial Opening Endoscopic (ICD-10-PCS; CPT 43235; principal; 2021-07-14 07:30)
DX: Z12.11 Encounter for screening for malignant neoplasm of colon (principal); D12.5 Benign neoplasm of sigmoid colon; K64.8 Other hemorrhoids; R14.2 Eructation; K20.90 Esophagitis, unspecified without bleeding; Z87.19 Personal history of other diseases of the digestive system; D64.9 Anemia, unspecified; J44.9 Chronic obstructive pulmonary disease, unspecified; E78.5 Hyperlipidemia, unspecified; I10 Essential (primary) hypertension; E87.1 Hypo-osmolality and hyponatremia; F17.210 Nicotine dependence, cigarettes, uncomplicated; Z79.51 Long term (current) use of inhaled steroids
CPT/HCPCS: 45385; 43239; 88305; 88313; J2704; J7120

== ENCOUNTER 2021-07-21 13:41 | Emergency (ER) | payer MEDICARE, SELFPAY ==
[2021-07-21] VITALS (32 sets, daily range): BP systolic 115–168; BP diastolic 62–146; PULSE 73–111; RESP 16–44; O2SAT 98–100
--- NOTE | ~2021-07-21 | XR_ITS ---
EXAMINATION: XR chest 1V portable EXAM DATE: 07/21/2021 15:00 INDICATION: Cough, emesis, hiccups, dehydration, COPD, hypertension. TECHNIQUE: Portable AP frontal chest x-ray was obtained. Comparison is made to prior examination from 04/27/2021. FINDINGS: Scattered basilar opacities with improvement, likely chronic atelectasis or scarring. No co nfluent consolidation, pneumothorax or pleural effusion suspected. Cardiomediastinal silhouette is no rmal. There are no osseous abnormalities identified. IMPRESSION: Some linear basilar atelectasis or scarring. Reviewed, dictated and finalized at location A.
--- NOTE | ~2021-07-21 | CT_ITS ---
EXAMINATION: CTA chest PE protocol DATE: 07/21/2021 18:05 INDICATION: Cough, hiccups. Elevated d-dimer. TECHNIQUE: Computed tomography angiography (CTA) of the chest was performed with 100 mL Omnipaque-350 intravenous contrast timed to evaluate the pulmonary arteries. Coronal maximum intensity projection 3D-reconstructions were created by the technologist. Automated exposure control and iterative reconst ruction technique were employed. Exam dose: 328.50 mGy-cm total exam DLP. COMPARISON: None. FINDINGS: There is considerable respiratory motion rendering the examination virtually nondiagnostic except for exclusion of main left or right pulmonary artery emboli or saddle embolus. Normal heart size. No pericardial or pleural effusion. No thoracic aortic aneurysm or dissection is detected. No hilar or mediastinal mass lesion or lymphadenopathy is detected. Mild discoid atelectasis or scarring in the lower lobes. No pulmonary consolidation. Small sliding hiatal hernia. There is some calcification of the posterior lower left pleura, with adjacent left lower lobe pulmona ry calcified granuloma. There are calcified splenic granulomas. Findings are likely due to old granul omatous disease. Severe degenerative disc disease in the lower cervical spine. Diffuse idiopathic skeletal hyperostosi s of the thoracic spine. No suspicious osteolytic or osteoblastic lesions are noted. IMPRESSION: Limited examination for pulmonary embolism due to prominent respiratory motion. No obvio us central pulmonary embolus. Reviewed, dictated and finalized at [facility]. Reviewed, dictated and finalized at location A. IMPRESSION: Limited examination for pulmonary embolism due to prominent respir atory motion. No obvious central pulmonary embolus.
--- NOTE | ~2021-07-21 | CT_ITS ---
EXAMINATION: CT abdomen pelvis w con INDICATION: Nausea and vomiting, abdominal pain TECHNIQUE: Computed tomographic images of the abdomen and pelvis were obtained after the administrati on of 100 cc of Omnipaque 350 intravenous contrast. The dose-length product (DLP) was 286.55 mGy-cm. Automated exposure control and iterative reconstruction technique were employed. COMPARISON: 03/02/2021 FINDINGS: Minimal dependent atelectasis is present in the lung bases. The heart size is normal. There is a small sliding hiatal hernia. Cysts of the liver measure up to 9 mm in the right hepatic lobe. R espiratory motion artifact limits evaluation of the upper abdomen. Punctate calcifications in an othe rwise normal spleen likely represent healed granulomatous disease. The pancreas and adrenal glands ar e normal. The gallbladder is contracted. Cysts of the kidneys measure up to 2.6 cm in the right kidne y lower pole. No pathologically enlarged abdominal or pelvic lymph nodes are identified. There is hebert cified atherosclerosis of the aorta and many of the other arteries. The appendix is normal. There is no free intraperitoneal gas or evidence of bowel obstruction. There is moderate lumbar spondylosis. IMPRESSION: 1. No CT correlate for the patient's symptoms. Reviewed, dictated and finalized at location B.
--- NOTE | 2021-07-21 14:26 | ED.GENADULT ---
HPI - General Adult General Chief complaint: Unspecified Stated complaint: Hiccups Time Seen by Provider: 07/21/21 14:23 Source: patient Mode of arrival: ambulatory Limitations: no limitations History of Present Illness HPI narrative: Patient is a 60-year-old male with a history of COPD, hypertension acid reflux, glaucoma with legal blindness, presenting for evaluation of hiccups. Patient states that he has been hiccuping over the past 4 days. Patient states that he has a history of this, for which she has seen Dr. Staley, is prescribed pantoprazole for which she has been compliant with this week. Patient states hiccups initially began on last Wednesday, resolved Wednesday and Wednesday,then have recurred today. Patient also reports he is nauseated, numerous episodes of nonbloody, nonbilious emesis today. Patient states he has been seen at this hospital for similar symptoms, had to be admitted for dehydration. Patient reports rhinorrhea, cough, congestion. He denies chest pain or shortness of breath. He reports mild upper abdominal pain. He denies dysuria or hematuria. Related Data Home Medications Medication Instructions Recorded Confirmed albuterol sulfate 1 puff INHALATION PRN PRN 03/02/21 04/27/21 losartan 50 mg PO DAILY 03/02/21 04/27/21 montelukast 10 mg PO DAILY 03/02/21 04/27/21 pravastatin 80 mg PO DAILY 03/02/21 04/27/21 timolol maleate 1 drp LEFT EYE TID 03/02/21 04/27/21 cholecalciferol (vitamin D3) 25 mcg PO DAILY 03/29/21 04/27/21 [Vitamin D3] cyanocobalamin (vitamin B-12) 2,000 mcg PO DAILY 03/29/21 04/27/21 hydrochlorothiazide 12.5 mg PO DAILY 04/27/21 04/27/21 Allergies Allergy/AdvReac Type Severity Reaction Status Date / Time No Known Allergies Allergy Verified 07/21/21 14:46 Review of Systems Review of Systems: CONSTITUTIONAL: Denies fever, chills, or sweats. EYES: Patient is legally blind ENT: Reports rhinorrhea and congestion CARDIOVASCULAR: Denies chest pain, palpitations, or edema. RESPIRATORY: Reports cough without shortness of breath, reports hiccups GASTROINTESTINAL: Reports abdominal pain, nausea, vomiting, denies diarrhea GENITOURINARY: Denies dysuria or hematuria. SKIN: Denies rash or itching. MUSCULOSKELETAL: Denies back pain, joint pain, or myalgia. NEUROLOGIC: Denies headache, numbness, or weakness. [facility]LY [facility] Past Medical History Medical History Anemia of chronic disease Chronic hiccups Chronic obstructive pulmonary disease Colon cancer screening Erosive esophagitis Glaucoma Legally blind. Hyperlipidemia Hypertension Hyponatremia Nausea Normocytic anemia Tobacco abuse Surgical History Surgical History History of enucleation of eye Right, secondary to recurrent infection. Family History Family History Grandparent Acute myocardial infarction Mother Acute myocardial infarction Father Acute myocardial infarction Sibling Cancer Social History Social History Social History: Surrogate decision maker: Svitlana Hines, . Code status: Full code. Smoking packs per day: 1 Smoking cigarettes per day: 20.0 Years smoked: 30 Smoking pack-years: 30.00 Smoking status: Current every day smoker Tobacco type: cigarettes Alcohol intake: current Drinks per week: 1 Substance use: never Substance use type: does not use Additional living arrangements comments: The patient lives with his in [place]. 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 Gender identity (if verbalized by the patient): Male Spiritual care concerns: No Exam Narrative: GENERAL: Awake, alert, conversant HEAD: Normocephalic, atraumatic. EYES: Clear, bilaterally, legally blind ENT: Nares clear, no
[2021-07-21] MEDS: LORazepam INJ (*CRX) 2 MG/ML VIAL 0.5 MG IV PUSH (14:59)
[2021-07-21] MEDS: SODIUM CHLORIDE 0.9% IV 1,000 ML 999 ML IV CONT (14:59)
[2021-07-21] MEDS: ONDANSETRON INJ 4 MG/2 ML VIAL IV PUSH (14:59)
[2021-07-21 15:21] LABS: Basophils Absolute Auto 0.1 K/mm3 (0.0-0.1); Basophils Percent Auto 0.4 % (0.2-1.2); Eosinophils Absolute Auto 0.2 K/mm3 (0-0.3); Eosinophils Percent Auto 1.4 % (0-4.4); Hematocrit 35.1 % (42.0-52.0); Hemoglobin 11.9 g/dL (14.0-18.0); Immature Granulocyte Absolute 0.04 K/mm3 (0.00-0.031); Immature Granulocyte Percent A 0.3 % (0-0.5); Lymphocytes Absolute Auto 1.49 K/mm3 (0.9-3.2); Lymphocytes Percent Auto 12.6 % (18.3-44.2); Mean Corpuscular HGB Conc 33.9 g/dl (32-36); Mean Corpuscular Hemoglobin 28.8 pg (26-34); Mean Platelet Volume 10.5 fl (7.4-10.4); Monocytes Absolute Auto 0.9 K/mm3 (0.1-0.6); Monocytes Percent Auto 7.6 % (2.6-8.5); Neutrophils Absolute Auto 9.2 K/mm3 (1.3-6.7); Neutrophils Percent Auto 77.7 % (45.5-73.1); Platelet Count Result 278 k/mm3 (150-375); Red Blood Count 4.13 M/mm3 (4.6-6.20); Red Cell Distribution Width 14.5 % (11.5-14.5); White Blood Count 11.8 K/mm3 (4.5-10.0)
[2021-07-21 15:23] LABS: Add Urine Microscopic? NO; Appearance Urine Clear (Clear); Bilirubin Urine Negative (Negative); Blood Urine Negative (Negative); Color Urine Colorless (Yellow); Glucose Urine UA Negative (Negative); Ketones Urine Negative (Negative); Leukocyte Esterase Ur Negative LEU/UL (Negative); Nitrate Urine Negative (Negative); Protein Urine Negative (Negative); Urobilinogen Urine Negative mg/dL (<2.0)
[2021-07-21 15:27] LABS: Specific Grav Ur 1.002 (1.001-1.035)
[2021-07-21 15:51] LABS: Alanine Aminotransferase 18 U/L (4-50); Albumin Level 3.7 g/dL (3.5-5.1); Alkaline Phosphatase 77 U/L (38-126); Anion Gap 12 mmol/L (8-16); Aspartate Amino Transferase 22 U/L (17-59); Bilirubin,Total 0.4 mg/dL (0.2-1.3); Blood Urea Nitrogen 6 mg/dL (9-20); Calcium 9.5 mg/dL (8.4-10.2); Carbon Dioxide 24 mmol/L (22-30); Chloride 101 mmol/L (98-107); Estimated CRCL calculation 101 ml/min; Estimated Glomerular Filt Rate > 60; Glucose 107 mg/dL (65-110); Lipase 116 U/L (23-300); Potassium 4.3 mmol/L (3.4-5.0); Sodium 137 mmol/L (137-145)
[2021-07-21 17:34] LABS: D Dimer 1.82 ug/mL (<0.48)
[2021-07-21] MEDS: diphenhydrAMINE HCl INJ 50 MG/ML VIAL 25 MG IV PUSH (17:47)
[2021-07-21] MEDS: chlorproMAZINE HCL 25 MG TABLET PO (17:47)
--- NOTE | 2021-07-31 09:01 | PC.NURSE ---
late entry from 07/21/21 1559 ns 1 liter bolus infused
== END 2021-07-21 18:43 | disposition home or self-care (01) ==
PROVIDERS: Emergency Provider Emergency Medicine; PCP Physician Assistant
DX: R06.6 Hiccough (principal); J44.9 Chronic obstructive pulmonary disease, unspecified; I10 Essential (primary) hypertension; E78.5 Hyperlipidemia, unspecified; F17.210 Nicotine dependence, cigarettes, uncomplicated; Z87.19 Personal history of other diseases of the digestive system
CPT/HCPCS: 36415; 71045; 71275; 74177; 80053; 81003; 83690; 85025; 85380; 96361; 96374; 96375; 99284; A9270; J1200; J2060; J2405; J7030; Q9967

== ENCOUNTER 2021-10-31 14:15 | Emergency (ER) | payer MEDICARE, SELFPAY ==
[2021-10-31 14:18] VITALS: BP 158/89; PULSE 80; RESP 18; TEMP 37.1; O2SAT 100
--- NOTE | 2021-10-31 15:42 | ED.GENADULT ---
HPI - General Adult General Chief complaint: Unspecified Stated complaint: hiccups Time Seen by Provider: 10/31/21 14:30 Source: patient and RN notes reviewed Limitations: no limitations History of Present Illness HPI narrative: Patient 61 years old white male presents with hiccups for the last 21-month. Patient ran out of chlorpromazine 2 days ago. Patient was seen by Dr. Staley for the same symptoms and had upper and lower endoscopy without significant finding. Patient believes that his hiccups is getting worse lately. Patient denies any fever, chills, nausea, vomiting, diarrhea, abdominal pain Related Data Home Medications Medication Instructions Recorded Confirmed albuterol sulfate 1 puff INHALATION PRN PRN 03/02/21 04/27/21 losartan 50 mg PO DAILY 03/02/21 04/27/21 montelukast 10 mg PO DAILY 03/02/21 04/27/21 pravastatin 80 mg PO DAILY 03/02/21 04/27/21 timolol maleate 1 drp LEFT EYE TID 03/02/21 04/27/21 cholecalciferol (vitamin D3) 25 mcg PO DAILY 03/29/21 04/27/21 [Vitamin D3] cyanocobalamin (vitamin B-12) 2,000 mcg PO DAILY 03/29/21 04/27/21 hydrochlorothiazide 12.5 mg PO DAILY 04/27/21 04/27/21 Allergies Allergy/AdvReac Type Severity Reaction Status Date / Time No Known Allergies Allergy Verified 07/21/21 14:46 Review of Systems Review of Systems: General appearance: Well-developed, well-nourished Skin: Normal color Head: Normocephalic, nontraumatic Eyes: Clear conjunctiva ENT: Oropharynx normal, ears normal, nose normal Neck: Supple, nontender Chest and respiratory: Airway patent, no respiratory distress, no accessory muscle use Heart: Regular rate/rhythm Abdomen: Soft, nontender, no organomegaly, quiet bowel sounds Vascular: Normal peripheral pulses, normal capillary refill. 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 Hyperlipidemia Hypertension Hyponatremia Nausea Normocytic anemia Tobacco abuse Surgical History Surgical History History of enucleation of eye Right, secondary to recurrent infection. Family History Family History Grandparent Acute myocardial infarction Mother Acute myocardial infarction Father Acute myocardial infarction Sibling Cancer Social History Social History Social History: Surrogate decision maker: Svitlana Hines, . Code status: Full code. Smoking packs per day: 1 Smoking cigarettes per day: 20.0 Years smoked: 30 Smoking pack-years: 30.00 Smoking status: Current every day smoker Tobacco type: cigarettes Alcohol intake: current Drinks per week: 1 Substance use: never Substance use type: does not use Additional living arrangements comments: The patient lives with his in [place]. 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 Gender identity (if verbalized by the patient): Male Spiritual care concerns: No Exam Narrative: General appearance: Well-developed, well-nourished Skin: Normal color Head: Normocephalic, nontraumatic Eyes: Clear conjunctiva ENT: Oropharynx normal, ears normal, nose normal Neck: Supple, nontender Chest and respiratory: Airway patent, no respiratory distres
[2021-10-31] MEDS: METOCLOPRAMIDE HCL 10 MG TABLET PO (15:47)
[2021-10-31 17:59] VITALS: BP 146/78; PULSE 78; RESP 16; TEMP 36.9; O2SAT 100
== END 2021-10-31 18:02 | disposition home or self-care (01) ==
PROVIDERS: Emergency Provider Emergency Medicine; PCP Physician Assistant
DX: R06.6 Hiccough (principal); D63.8 Anemia in other chronic diseases classified elsewhere; J44.9 Chronic obstructive pulmonary disease, unspecified; K22.10 Ulcer of esophagus without bleeding; H40.9 Unspecified glaucoma; H54.8 Legal blindness, as defined in USA; E78.5 Hyperlipidemia, unspecified; I10 Essential (primary) hypertension; F17.210 Nicotine dependence, cigarettes, uncomplicated
CPT/HCPCS: 99283; A9270

== ENCOUNTER 2024-06-28 12:10 | Inpatient (IN) | payer MEDICARE, SELFPAY ==
[2024-06-28] VITALS (20 sets, daily range): BP systolic 116–173; BP diastolic 55–89; PULSE 63–76; RESP 12–22; TEMP 36.4–37; O2SAT 96–98
--- NOTE | ~2024-06-28 | XR_ITS ---
Clinical Indication: Dizzy PA and lateral views of the chest: Comparison: 07/21/2021 Findings: The lungs are clear, without evidence of focal consolidation or pleural effusion. Cardiome diastinal silhouette is within normal limits. Bones and soft tissues are unremarkable. Impression: Normal chest. Reviewed, dictated and finalized at location . Impression: Normal chest.
--- NOTE | 2024-06-28 12:14 | ECG_ITS ---
Test Date: 2024-06-28 12:19:22 Measurements Intervals [place] Rate: 72 P: 57 ID: [id number] QRS: 45 QRSD: 90 T: 50 QT: 379 QTc: 416 Interpretive Statements SINUS RHYTHM NORMAL ELECTROCARDIOGRAM No previous ECG available for comparison Electronically Signed On 06-29-2024 07:48:09 CDT by Herman Al M.D.
[2024-06-28 12:35] LABS: Basophils Percent Auto 0.5 % (0.2-1.2); Eosinophils Absolute Auto 0.1 K/mm3 (0-0.3); Eosinophils Percent Auto 1.5 % (0-4.4); Hematocrit 35.1 % (42.0-52.0); Hemoglobin 11.7 g/dL (14.0-18.0); Immature Granulocyte Absolute 0.02 K/mm3 (0.00-0.031); Immature Granulocyte Percent A 0.3 % (0-0.5); Lymphocytes Absolute Auto 1.67 K/mm3 (0.9-3.2); Lymphocytes Percent Auto 22.6 % (18.3-44.2); Mean Corpuscular HGB Conc 33.3 g/dl (32-36); Mean Corpuscular Hemoglobin 28.8 pg (26-34); Mean Corpuscular Volume 86.5 fl (80-100); Mean Platelet Volume 11.1 fl (7.4-10.4); Monocytes Absolute Auto 0.5 K/mm3 (0.1-0.6); Monocytes Percent Auto 6.2 % (2.6-8.5); Neutrophils Absolute Auto 5.1 K/mm3 (1.3-6.7); Neutrophils Percent Auto 68.9 % (45.5-73.1); Platelet Count Result 220 k/mm3 (150-375); Red Blood Count 4.06 M/mm3 (4.6-6.20); Red Cell Distribution Width 13.1 % (11.5-14.5); White Blood Count 7.4 K/mm3 (4.5-10.0)
[2024-06-28 12:44] LABS: Alanine Aminotransferase 10 U/L (6-50); Albumin Level 4.4 g/dL (3.5-5.1); Alkaline Phosphatase 53 U/L (38-126); Anion Gap 10 mmol/L (4-12); Aspartate Amino Transferase 20 U/L (17-59); Bilirubin,Total 0.6 mg/dL (0.2-1.3); Blood Urea Nitrogen 8 mg/dL (9-20); Calcium 9.2 mg/dL (8.4-10.2); Carbon Dioxide 24 mmol/L (22-30); Chloride 88 mmol/L (98-107); Estimated CRCL calculation 88 ml/min; Estimated Glomerular Filt Rate > 60; Glucose 108 mg/dL (65-110); Potassium 4.4 mmol/L (3.4-5.0); Sodium 122 mmol/L (137-145)
--- NOTE | 2024-06-28 14:21 | ED_ITS ---
HPI - Recheck/Abnormal Lab/Rx General Chief Complaint: Recheck/Abnormal Lab/Rx Stated Complaint: low sodium Time Seen by Provider: 06/28/24 13:24 Source: patient Mode of arrival: ambulatory Limitations: no limitations History of Present Illness HPI narrative: This is a 63-year-old male, with history of COPD, hypertension and previous episodes of hyponatremia, who presents emergency department at the [facility] primary care doctor for hyponatremia. The patient states he has chronic hiccups which she has seen GI in the past. He drinks water for these. He states he drank 3 gal of water yesterday. He complains of generalized tonic headache, lightheadedness, some nausea and persistent hiccups. He has no other complaints at this time Related Data Home Medications Medication Instructions Recorded Confirmed losartan 50 mg tablet 50 mg PO DAILY 03/02/21 06/28/24 montelukast 10 mg tablet 10 mg PO DAILY 03/02/21 06/28/24 pravastatin 80 mg tablet 80 mg PO DAILY 03/02/21 06/28/24 timolol maleate 0.5 % once daily 1 drp LEFT EYE TID 03/02/21 06/28/24 eye drops cholecalciferol (vitamin D3) 25 25 mcg PO DAILY 03/29/21 06/28/24 mcg (1,000 unit) capsule (Vitamin D3) cyanocobalamin (vitamin B-12) 100 2,000 mcg PO DAILY 03/29/21 06/28/24 mcg tablet hydrochlorothiazide 12.5 mg capsule 12.5 mg PO DAILY 04/27/21 06/28/24 Allergies Allergy/AdvReac Type Severity Reaction Status Date / Time No Known Allergies Allergy Verified 06/28/24 15:55 Review of Systems Review of Systems: All systems reviewed & are unremarkable except as noted in HPI and below PMFSH Past Medical History Medical History (Updated 06/28/24 @ 20:06 by Shalonda Sebastian PA-C) Adenomatous colon polyp Anemia of chronic disease Chronic hiccups Chronic obstructive pulmonary disease Erosive esophagitis Glaucoma Legally blind. Hyperlipidemia Hypertension Hyponatremia Normocytic anemia Tobacco abuse Surgical History Surgical History History of enucleation of eye Right, secondary to recurrent infection. Family History Family History Grandparent Acute myocardial infarction Mother Acute myocardial infarction Father Acute myocardial infarction Sibling Cancer Social History Social History (Updated 06/28/24 @ 20:06 by Shalonda Sebastian PA-C) Social History: Surrogate decision maker: Svitlana Hines, . Code status: Full code. Smoking packs per day: 1 Smoking cigarettes per day: 20.0 Years smoked: 30 Smoking pack-years: 30.00 Smoking status: Former smoker Tobacco type: cigarettes Alcohol intake: current Drinks per week: 1 Substance use: never Substance use type: does not use Do You Feel Safe in your Home?: Yes Lack of Transportation: No Lack of Food: Never True Current Housing: I Have Housing Concerned About Future Housing: No Difficulty Paying Gas/Electric Bills: No Difficulty Paying for Meds: No Currently Unemployed: No Education: Don't Know Difficulty w/ Childcare or Family Care: No Living arrangements: with family Additional living arrangements comments: The patient lives with his in [place]. 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 Spiritual care concerns: No Exam Narrative: GENERAL: Well-developed, well-nourished, and in no acute distress. HEAD: Normocephalic, atraumatic. EYES: Right eye enucleated. Left EOMI ENT: Nares clear, no rhinorrhea or epistaxis. Mucous membranes moist. Oropharynx without tonsillar hypertrophy exudate or other lesions. NECK: Supple. No adenopathy or masses. No carotid bruits or JVD CHEST: Clear to auscultation. No respiratory distress. No wheezes rales or rhonchi HEART: Regular rate and rhythm. No murmur heard. Normal peripheral pulses. ABDOMEN: Soft, nontender, nondistended, normal active bowel sounds. EXTREMITIES: Normal range of motion. No edema. SKIN: Warm, dry, no rash. NEURO: Alert and oriented x3. Blind, otherwise no focal deficit. Moving all 4 limbs spontaneously PSYCH: Normal mood and affect. Course Course Emergency Course: 14:14 - CBC demonstrates chronic anemia with hemoglobin 11.7 but is otherwise unremarkable. Chemistries demonstrate hyponatremia with sodium of 122 but is otherwise unremarkable. Chest x-ray unremarkable, EKG not concerning for ischemia or arrhythmia. I suspect the patient's symptoms are due to symptomatic hyponatremia. I discussed the patient with hospitalist, RAMIREZ Sebastian who accepts admission. The patient is comfortable with the plan. Vital Signs Vital signs: Vital Signs Temperature 98 F 06/28/24 12:12 Pulse Rate 74 06/28/24 12:12 Respiratory Rate 18 06/28/24 12:12 Blood Pressure 173/78 H 06/28/24 12:12 Pulse Oximetry 97 06/28/24 12:12 Temperature 97.6 F 06/28/24 21:26 Pulse Rate 76 06/28/24 21:26 Respiratory Rate 20 06/28/24 21:26 Blood Pressure 116/55 L 06/28/24 21:26 Pulse Oximetry 96 06/28/24 21:26 Oxygen Delivery Room Air 06/28/24 20:00 MDM - Recheck/Abnormal Lab/Rx MDM Narrative Medical decision making narrative: Plan: Labs, EKG, imaging, reassess Differential Diagnosis Differential diagnosis: Likely other (Hyponatremia, hiccups, metabolic abnormality, arrhythmia, other) Lab Data 06/28/24 12:26 06/28/24 19:23 Labs: Lab Results 06/28/24 Range/Units 12:26 WBC 7.4 (4.5-10.0) K/mm3 RBC 4.06 L (4.6-6.20) M/mm3 Hgb 11.7 L (14.0-18.0) g/dL Hct 35.1 L (42.0-52.0) % MCV 86.5 (80-100) fl MCH 28.8 (26-34) pg MCHC 33.3 (32-36) g/dl RDW 13.1 (11.5-14.5) % Plt Count 220 (150-375) k/mm3 MPV 11.1 H (7.4-10.4) fl Immature Gran % (Auto) 0.3 (0-0.5) % Neut % (Auto) 68.9 (45.5-73.1) % Lymph % (Auto) 22.6 (18.3-44.2) % [place] % (Auto) 6.2 (2.6-8.5) % Eos % (Auto) 1.5 (0-4.4) % Baso % (Auto) 0.5 (0.2-1.2) % Lymph # (Auto) 1.67 (0.9-3.2) K/mm3 [place] # (Auto) 0.5 (0.1-0.6) K/mm3 Eos # (Auto) 0.1 (0-0.3) K/mm3 Baso # (Auto) 0.0 (0.0-0.1) K/mm3 Abs Immat Gran (auto) 0.02 (0.00-0.031) K/mm3 Absolute Neuts (auto) 5.1 (1.3-6.7) K/mm3 Absolute Nucleated RBC 0.000 (0.0-0.012) K/mm3 Nucleated RBC % 0.0 (0.0-0.2) % Sodium 122 L (137-145) mmol/L Potassium 4.4 (3.4-5.0) mmol/L Chloride 88 L (98-107) mmol/L Carbon Dioxide 24 (22-30) mmol/L Anion Gap 10 (4-12) mmol/L BUN 8 L (9-20) mg/dL Creatinine 0.70 (0.7-1.3) mg/dL Estim Creat Clear Calc 88 ml/min Estimated GFR > 60 (59 - ) Glucose 108 (65-110) mg/dL Calcium 9.2 (8.4-10.2) mg/dL Total Bilirubin 0.6 (0.2-1.3) mg/dL AST 20 (17-59) U/L ALT 10 (6-50) U/L Alkaline Phosphatase 53 (38-126) U/L Total Protein 8.0 (6.3-8.2) g/dL Albumin 4.4 (3.5-5.1) g/dL ECG Data EKG #1: Attestation: I personally reviewed and interpreted this ECG as follows: ECG completion date: 06/28/24 ECG completion time: 12:19 Prior ECG tracings: not available for review Interpretation: Sinus rhythm, rate 72, normal axis, no ST segment elevations or T-wave inversions concerning for ischemia, normal intervals with QTC of 416. Discharge Plan Discharge Clinical Impression: Acute hyponatremia, Nausea Acute headache Qualifiers: Headache type: unspecified Intractability: not intractable Qualified Code(s): R51.9 - Headache, unspecified Patient Disposition: Still a Patient Condition: Stable Time of Disposition: 14:14
[2024-06-28] MEDS: ACETAMINOPHEN 500 MG TABLET 1000 MG PO (15:09)
--- NOTE | 2024-06-28 15:35 | P.HP_ITS ---
H&P: HPI History of Present Illness Date/Time: 06/28/24 15:35 Chief Complaint: Low sodium. Narrative: This is a pleasant 63-year-old male with chronic obstructive pulmonary disease, hypertension, hyperlipidemia, chronic hiccups, and glaucoma who presented to the emergency department at the direction of his doctor after he was found to have low sodium on labs. The patient provides the following history. He has had intermittent issues with hiccups over the years and has had incessant hiccups for a couple of weeks. He drank 3 gallons of water yesterday and started to feel lightheaded, dizzy, and nauseated last night. Labs drawn today showed that his sodium was quite low and he was directed to the ED. He denies syncope, near syncope, confusion, loss of appetite, vomiting, diarrhea, dysuria, and muscle weakness. In the ED: Vitals have been stable since arrival. Labs were significant for sodium of 122, chloride 96, BUN 8, creatinine 0.80. No interventions were undertaken in the ED. He is being admitted in this setting for close monitoring. Review of Systems Review of Systems: 12 systems were reviewed and are negativ e except for as per HPI. [facility] Past Medical History Medical History (Updated 06/28/24 @ 20:06 by Shalonda Sebastian PA-C) Adenomatous colon polyp Anemia of chronic disease Chronic hiccups Chronic obstructive pulmonary disease Erosive esophagitis Glaucoma Legally blind. Hyperlipidemia Hypertension Hyponatremia Normocytic anemia Tobacco abuse Surgical History Surgical History History of enucleation of eye Right, secondary to recurrent infection. Family History Family History Grandparent Acute myocardial infarction Mother Acute myocardial infarction Father Acute myocardial infarction Sibling Cancer Social History Social History (Updated 06/28/24 @ 20:06 by Shalonda Sebastian PA-C) Social History: Surrogate decision maker: Svitlana Hines, . Code status: Full code. Smoking packs per day: 1 Smoking cigarettes per day: 20.0 Years smoked: 30 Smoking pack-years: 30.00 Smoking status: Former smoker Tobacco type: cigarettes Alcohol intake: current Drinks per week: 1 Substance use: never Substance use type: does not use Do You Feel Safe in your Home?: Yes Lack of Transportation: No Lack of Food: Never True Current Housing: I Have Housing Concerned About Future Housing: No Difficulty Paying Gas/Electric Bills: No Difficulty Paying for Meds: No Currently Unemployed: No Education: Don't Know Difficulty w/ Childcare or Family Care: No Living arrangements: with family Additional living arrangements comments: The patient lives with his in [place]. 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 Spiritual care concerns: No Meds Home Medications and Allergies Home Medications Medication Instructions Recorded Confirmed Type losartan 50 mg tablet 50 mg PO DAILY 03/02/21 06/28/24 History montelukast 10 mg tablet 10 mg PO DAILY 03/02/21 06/28/24 History pravastatin 80 mg tablet 80 mg PO DAILY 03/02/21 06/28/24 History timolol maleate 0.5 % once daily 1 drp LEFT EYE TID 03/02/21 06/28/24 History eye drops cholecalciferol (vitamin D3) 25 25 mcg PO DAILY 03/29/21 06/28/24 History mcg (1,000 unit) capsule (Vitamin D3) cyanocobalamin (vitamin B-12) 100 2,000 mcg PO DAILY 03/29/21 06/28/24 History mcg tablet prochlorperazine maleate 10 mg 10 mg PO Q6H PRN nausea and 04/01/21 06/28/24 Rx tablet (Compazine) vomiting #30 tabs sucralfate 100 mg/mL oral 1,000 mg (10 mL) PO ACHS 14 days 04/01/21 06/28/24 Rx suspension #560 mL hydrochlorothiazide 12.5 mg capsule 12.5 mg PO DAILY 04/27/21 06/28/24 History albuterol sulfate 90 mcg/actuation 1 inh inhalation QID PRN shortness 05/02/21 06/28/24 Rx aerosol inhaler of breath or wheezing #8.5 grams budesonide-formoterol HFA 160 2 puff inhalation Q12H #10.2 grams 05/02/21 06/28/24 Rx mcg-4.5 mcg/actuation aerosol inhaler (Symbicort) chlorpromazine 25 mg tablet 25 mg PO QID PRN Hiccups #20 tabs 05/02/21 06/28/24 Rx pantoprazole 40 mg tablet,delayed 40 mg PO BID 30 days #60 tabs 05/15/21 06/28/24 Rx release prochlorperazine maleate 5 mg 5 mg PO Q8H PRN nausea and 07/21/21 06/28/24 Rx tablet vomiting 5 days #20 tabs Allergies Allergy/AdvReac Type Severity Reaction Status Date / Time No Known Allergies Allergy Verified 06/28/24 15:55 Vital Signs Vital Signs - 24 hr 06/28/24 12:12 06/28/24 13:35 Temperature 98 F Pulse Rate 74 65 Respiratory Rate 18 20 Blood Pressure 173/78 H 169/89 H Pulse Oximetry 97 98 Exam Narrative: General: Nontoxic-appearing male sitting up in bed in no distress. Weight: 70 kg. BMI: 24.2. HEENT: Bilateral hearing aids. Status post right eye enucleation. Left cornea is cloudy with irregular pupil. Oral mucosa moist. Neck: Supple. Respiratory: Lung sounds are a bit diminished at the bases but are otherwise clear. Cardiovascular: Regular rate and rhythm with S1-S2. Gastrointestinal: Abdomen is soft, nontender, and nondistended with positive bowel sounds. Skin: Warm and dry. Extremities: No cyanosis, clubbing, or edema. Radial and pedal pulses intact. Neurological: Alert. Cranial nerves 2-12 are grossly intact. No gross focal deficits to casual conversation. Psychiatric: Pleasant and cooperative with normal mood and affect. H&P: Results Labs Labs: Short CBC 06/28/24 Range/Units 12:26 WBC 7.4 (4.5-10.0) K/mm3 Hgb 11.7 L (14.0-18.0) g/dL Hct 35.1 L (42.0-52.0) % Plt Count 220 (150-375) k/mm3 BMP 06/28/24 12:26 Sodium 122 L Potassium 4.4 Chloride 88 L Carbon Dioxide 24 BUN 8 L Creatinine 0.70 Glucose 108 Calcium 9.2 Liver Function 06/28/24 Range/Units 12:26 Total Bilirubin 0.6 (0.2-1.3) mg/dL AST 20 (17-59) U/L ALT 10 (6-50) U/L Alkaline Phosphatase 53 (38-126) U/L Albumin 4.4 (3.5-5.1) g/dL Assessment and Plan Assessment and plan (1) Acute hyponatremia: Code(s): E87.1 - Hypo-osmolality and hyponatremia Status: Acute (2) Chronic hiccups: Code(s): R06.6 - Hiccough Status: Chronic (3) Hypertension: Code(s): I10 - Essential (primary) hypertension Status: Chronic Plan The patient presented to the emergency department for evaluation after he was found have a low sodium on labs today. Labs, imaging, EKG, and all reports were personally reviewed. He drank 3 gallons of water yesterday for his hiccups and this likely cause a precipitous drop in sodium. This should correct with fluid restriction. Repeat BMP this evening to ensure it is correcting appropriately. We did discuss that drinking too much water in a short period of time could cause hyponatremia. Thorazine p.r.n. ordered for the hiccups. Vital signs were reviewed and they are stable. Hold hydrochlorothiazide. The rest of his medications will be reviewed and resumed as appropriate. Findings and treatment plan were discussed with the patient. Questions were solicited and answered to satisfaction. The patient's medical management will be taken over by the hospitalist team in a.m. Quality VTE Prophylaxis VTE prophylaxis: mechanical ordered If No VTE Prophylaxis Answer both mechanical and pharmacologic: Reason no pharmacologic proph: low risk/not indicated Hospitalist MIPS Advance Care Plan I have confirmed that the patient's Advanced Care Plan is present, code status is documented, or surrogate decision maker is listed in patient medical record.: Yes Medication Reconciliation I have utilized all available resources to obtain, update and review the patients current medications (includes all prescriptions, OTC, herbals, ca nnabis, and nutritional supplements).: Yes
--- NOTE | 2024-06-28 15:55 | ADMGEN ---
This patient, Mark Hines, was admitted to [facility] Surg Room 312-01. Patient/family oriented to hospital policies and general routines including ID bracelet, bed and alarms, visiting hours, pain management, procedures, bathroom and other care routines, personal items, smoking policy, room service/diet, and visiting hours. Information on how to activate the Rapid Response Team has been discussed. Patient/Family are encouraged to report perceived risks to care and to ask questions if they do not understand what they are told or what they should do.
[2024-06-28] MEDS: PANTOPRAZOLE 40 MG TABLET PO (19:20)
[2024-06-28] MEDS: TIMOLOL MALEATE 0.5% OP SOLN 5 ML BOTTLE 1 DROP LEFT EYE (19:20)
[2024-06-28] MEDS: chlorproMAZINE HCL 25 MG TABLET PO (19:21)
[2024-06-28 19:45] LABS: Anion Gap 7 mmol/L (4-12); Blood Urea Nitrogen 8 mg/dL (9-20); Calcium 9.4 mg/dL (8.4-10.2); Carbon Dioxide 28 mmol/L (22-30); Chloride 96 mmol/L (98-107); Estimated CRCL calculation 78 ml/min; Estimated Glomerular Filt Rate > 60; Glucose 128 mg/dL (65-110); Potassium 4.4 mmol/L (3.4-5.0); Sodium 131 mmol/L (137-145)
[2024-06-28] MEDS: SUCRALFATE SUSP 100 MG/ML 10 ML UDC 1000 MG PO (20:54)
[2024-06-29] VITALS (7 sets, daily range): BP systolic 116–139; BP diastolic 59–68; PULSE 64–88; RESP 20; TEMP 36.1–36.6; O2SAT 96–98
[2024-06-29] MEDS: chlorproMAZINE HCL 25 MG TABLET PO (00:53)
[2024-06-29] MEDS: SUCRALFATE SUSP 100 MG/ML 10 ML UDC 1000 MG PO (05:19)
[2024-06-29 06:58] LABS: Basophils Absolute Auto 0.1 K/mm3 (0.0-0.1); Basophils Percent Auto 0.7 % (0.2-1.2); Eosinophils Absolute Auto 0.1 K/mm3 (0-0.3); Eosinophils Percent Auto 1.4 % (0-4.4); Immature Granulocyte Absolute 0.02 K/mm3 (0.00-0.031); Immature Granulocyte Percent A 0.3 % (0-0.5); Lymphocytes Absolute Auto 1.22 K/mm3 (0.9-3.2); Lymphocytes Percent Auto 16.7 % (18.3-44.2); Mean Corpuscular HGB Conc 32.4 g/dl (32-36); Mean Corpuscular Hemoglobin 28.8 pg (26-34); Mean Corpuscular Volume 88.7 fl (80-100); Mean Platelet Volume 11.6 fl (7.4-10.4); Monocytes Absolute Auto 0.5 K/mm3 (0.1-0.6); Monocytes Percent Auto 6.6 % (2.6-8.5); Neutrophils Absolute Auto 5.4 K/mm3 (1.3-6.7); Neutrophils Percent Auto 74.3 % (45.5-73.1); Platelet Count Result 194 k/mm3 (150-375); Red Blood Count 4.17 M/mm3 (4.6-6.20); Red Cell Distribution Width 13.4 % (11.5-14.5); White Blood Count 7.3 K/mm3 (4.5-10.0)
[2024-06-29 07:06] LABS: Anion Gap 9 mmol/L (4-12); Blood Urea Nitrogen 8 mg/dL (9-20); Calcium 9.4 mg/dL (8.4-10.2); Carbon Dioxide 26 mmol/L (22-30); Chloride 101 mmol/L (98-107); Estimated CRCL calculation 88 ml/min; Estimated Glomerular Filt Rate > 60; Glucose 103 mg/dL (65-110); Potassium 4.3 mmol/L (3.4-5.0); Sodium 136 mmol/L (137-145)
[2024-06-29] MEDS: FLUTICASONE/SALMETEROL 115-21 MCG INHALER 1 PUFF 2 PUFF INHALATION (07:51)
[2024-06-29] MEDS: LOSARTAN POTASSIUM 50 MG TABLET PO (09:43)
[2024-06-29] MEDS: MONTELUKAST SODIUM 10 MG TABLET PO (09:43)
[2024-06-29] MEDS: PANTOPRAZOLE 40 MG TABLET PO (09:43)
[2024-06-29] MEDS: CYANOCOBALAMIN 1,000 MCG TABLET 2000 MCG PO (09:44)
[2024-06-29] MEDS: PRAVASTATIN SODIUM 20 MG TABLET 80 MG PO (09:44)
[2024-06-29] MEDS: CHOLECALCIFEROL 1,000 UNITS TABLET 1000 UNITS PO (09:44)
[2024-06-29] MEDS: TIMOLOL MALEATE 0.5% OP SOLN 5 ML BOTTLE 1 DROP LEFT EYE (09:44)
--- NOTE | 2024-06-29 10:29 | PM.IMPN ---
Progress Note: A&P Assessment and Plan (1) Acute hyponatremia: Code(s): E87.1 - Hypo-osmolality and hyponatremia Status: Acute (2) Chronic hiccups: Code(s): R06.6 - Hiccough Status: Chronic (3) Hypertension: Code(s): I10 - Essential (primary) hypertension Status: Chronic Plan The patient presented to the emergency department for evaluation after he was found have a low sodium on labs today. Labs, imaging, EKG, and all reports were personally reviewed. He drank 3 gallons of water yesterday for his hiccups and this likely cause a precipitous drop in sodium. This should correct with fluid restriction. Repeat BMP this evening to ensure it is correcting appropriately. We did discuss that drinking too much water in a short period of time could cause hyponatremia. Thorazine p.r.n. ordered for the hiccups. Vital signs were reviewed and they are stable. Hold hydrochlorothiazide. The rest of his medications will be reviewed and resumed as appropriate. Findings and treatment plan were discussed with the patient. Questions were solicited and answered to satisfaction. The patient's medical management will be taken over by the hospitalist team in a.m. Time Spent With Patient Time with patient: Greater than 35 minutes Subjective Date/time seen: 06/29/24 10:29 Interval history: Narrative retrieved from H/P: This is a pleasant 63-year-old male with chronic obstructive pulmonary disease, hypertension, hyperlipidemia, chronic hiccups, and glaucoma who presented to the emergency department at the direction of his doctor after he was found to have low sodium on labs. The patient provides the following history. He has had intermittent issues with hiccups over the years and has had incessant hiccups for a couple of weeks. He drank 3 gallons of water yesterday and started to feel lightheaded, dizzy, and nauseated last night. Labs drawn today showed that his sodium was quite low and he was directed to the ED. He denies syncope, near syncope, confusion, loss of appetite, vomiting, diarrhea, dysuria, and muscle weakness. In the ED: Vitals have been stable since arrival. Labs were significant for sodium of 122, chloride 96, BUN 8, creatinine 0.80. No interventions were undertaken in the ED. He is being admitted in this setting for close monitoring. 06/29- pt is seen and exmained Review of Systems Review of Systems: 12 systems were reviewed and are negative except for as per HPI. Exam Narrative: General: Nontoxic-appearing male sitting up in bed in no distress. Weight: 70 kg. BMI: 24.2. HEENT: Bilateral hearing aids. Status post right eye enucleation. Left cornea is cloudy with irregular pupil. Oral mucosa moist. Neck: Supple. Respiratory: Lung sounds are a bit diminished at the bases but are otherwise clear. Cardiovascular: Regular rate and rhythm with S1-S2. Gastrointestinal: Abdomen is soft, nontender, and nondistended with positive bowel sounds. Skin: Warm and dry. Extremities: No cyanosis, clubbing, or edema. Radial and pedal pulses intact. Neurological: Alert. Cranial nerves 2-12 are grossly intact. No gross focal deficits to casual conversation. Psychiatric: Pleasant and cooperative with normal mood and affect. Objective Data Vital Signs Vital Signs: Vital Signs - 24 hr 06/28/24 12:12 06/28/24 13:35 06/28/24 13:30 Temperature 98 F Pulse Rate 74 65 71 Respiratory Rate 18 20 16 Blood Pressure 173/78 H 169/89 H Pulse Oximetry 97 98 98 Oxygen Delivery 06/28/24 13:31 06/28/24 13:56 06/28/24 14:00 Temperature Pulse Rate 67 Respiratory Rate 12 Blood Pressure 169/89 H Pulse Oximetry 98 97 96 Oxygen Delivery 06/28/24 14:01 06/28/24 14:22 06/28/24 14:30 Temperature Pulse Rate Respiratory Rate Blood Pressure 162/80 H Pulse Oximetry 97 98 97 Oxygen Delivery 06/28/24 14:31 06/28/24 14:45 06/28/24 14:46 Temperature Pulse Rate Respiratory Rate Blood Pressure 164/76 H 155/75 H Pulse Oximetry 98 98 98 Oxygen Delivery 06/28/24 15:00 06/28/24 15:01 06/28/24 15:27 Temperature Pulse Rate 68 Respiratory Rate 19 Blood Pressure 172/79 H Pulse Oximetry 96 97 98 Oxygen Delivery 06/28/24 15:30 06/28/24 12:14 06/28/24 18:52 Temperature 98.6 F Pulse Rate 68 63 Respiratory Rate 22 H 18 Blood Pressure 157/74 H Pulse Oximetry 96 98 Oxygen Delivery Room Air 06/28/24 19:39 06/28/24 21:26 06/28/24 20:00 Temperature 97.6 F Pulse Rate 76 Respiratory Rate 20 Blood Pressure 118/60 116/55 L Pulse Oximetry 96 Oxygen Delivery Room Air 06/28/24 20:00 06/29/24 00:00 06/29/24 04:00 Temperature Pulse Rate 69 64 64 Respiratory Rate Blood Pressure Pulse Oximetry Oxygen Delivery 06/29/24 05:42 06/29/24 07:55 Temperature 97.8 F Pulse Rate 67 Respiratory Rate 20 Blood Pressure 116/59 L Pulse Oximetry 97 96 Oxygen Delivery Room Air Intake/Output Intake/Output: Intake & Output 06/26/24 06/27/24 06/28/24 06/29/24 23:59 23:59 23:59 23:59 Intake Total 0 240 Output Total 700 Balance -700 240 Meds/Results Medications: Active Medications Generic Name Dose Route Start Last Admin Trade Name Freq PRN Reason Stop Dose Admin Acetaminophen 650 mg 06/28/24 20:11 Acetaminophen 325 Mg Tablet PO Q6H PRN Mild Pain (1-3) or Fever Albuterol 1 puff 06/28/24 18:11 Albuterol Sulfate (*Sp) Aerosol 1 Puff INHALATION QID PRN shortness of breath or wheezing Chlorpromazine HCl 25 mg 06/28/24 18:11 06/29/24 00:53 Chlorpromazine Hcl 25 Mg Tablet PO 25 mg QID PRN Administration Hiccups Cyanocobalamin 2,000 mcg 06/29/24 09:00 06/29/24 09:44 Cyanocobalamin 1,000 Mcg Tablet PO 2,000 mcg DAILY PASHA Administration Losartan Potassium 50 mg 06/29/24 09:00 06/29/24 09:43 Losartan Potassium 50 Mg Tablet PO 50 mg DAILY PASHA Administration Montelukast Sodium 10 mg 06/29/24 09:00 06/29/24 09:43 Montelukast Sodium 10 Mg Tablet PO 10 mg DAILY PASHA Administration Pantoprazole Sodium 40 mg 06/28/24 18:35 06/29/24 09:43 Pantoprazole 40 Mg Tablet PO 40 mg BID PASHA Administration Pravastatin Sodium 80 mg 06/29/24 09:00 06/29/24 09:44 Pravastatin Sodium 20 Mg Tablet PO 80 mg DAILY PASHA Administration Fluticasone/Salmeterol 2 puff 06/28/24 20:00 06/29/24 07:51 Fluticasone/Salmeterol 115-21 Mcg Inhaler 1 Puff INHALATION 2 puff Q12HRT PASHA Administration Sucralfate 1,000 mg 06/28/24 21:00 06/29/24 05:19 Sucralfate Susp 100 Mg/Ml 10 Ml Udc PO 1,000 mg ACHS PASHA Administration Timolol Maleate 1 drop 06/28/24 18:35 06/29/24 09:44 Timolol Maleate 0.5% Op Soln 5 Ml Bottle LEFT EYE 1 drop TID PASHA Administration Vitamin D 1,000 units 06/29/24 09:00 06/29/24 09:44 Cholecalciferol 1,000 Units Tablet PO 1,000 units DAILY PASHA Administration Radiology Results: ITS Impressions Chest X-Ray 06/28/24 13:22 Impression: Normal chest. Labs Labs: Laboratory Results - last 24 hr 06/28/24 06/28/24 06/29/24 12:26 19:23 06:38 WBC 7.4 7.3 RBC 4.06 L 4.17 L Hgb 11.7 L 12.0 L Hct 35.1 L 37.0 L MCV 86.5 88.7 MCH 28.8 28.8 MCHC 33.3 32.4 RDW 13.1 13.4 Plt Count 220 194 MPV 11.1 H 11.6 H Immature Gran % (Auto) 0.3 0.3 Neut % (Auto) 68.9 74.3 H Lymph % (Auto) 22.6 16.7 L [place] % (Auto) 6.2 6.6 Eos % (Auto) 1.5 1.4 Baso % (Auto) 0.5 0.7 Lymph # (Auto) 1.67 1.22 [place] # (Auto) 0.5 0.5 Eos # (Auto) 0.1 0.1 Baso # (Auto) 0.0 0.1 Abs Immat Gran (auto) 0.02 0.02 Absolute Neuts (auto) 5.1 5.4 Absolute Nucleated RBC 0.000 0.000 Nucleated RBC % 0.0 0.0 Sodium 122 L 131 L 136 L Potassium 4.4 4.4 4.3 Chloride 88 L 96 L 101 Carbon Dioxide 24 28 26 Anion Gap 10 7 9 BUN 8 L 8 L 8 L Creatinine 0.70 0.80 0.70 Estim Creat Clear Calc 88 78 88 Estimated GFR > 60 > 60 > 60 Glucose 108 128 H 103 Calcium 9.2 9.4 9.4 Total Bilirubin 0.6 AST 20 ALT 10 Alkaline Phosphatase 53 Total Protein 8.0 Albumin 4.4 Quality VTE Prophylaxis VTE prophylaxis: mechanical ordered
--- NOTE | 2024-06-29 12:30 | PM.DS ---
DS: Admitting Diagnosis Discharge Date 06/29 Admitting Diagnosis hyponatremia DS: Discharge Diagnosis Discharge Diagnosis (1) Acute hyponatremia: Code(s): E87.1 - Hypo-osmolality and hyponatremia Status: Acute (2) Chronic hiccups: Code(s): R06.6 - Hiccough Status: Chronic (3) Hypertension: Code(s): I10 - Essential (primary) hypertension Status: Chronic Plan The patient presented to the emergency department for evaluation after he was found have a low sodium on labs today. Labs, imaging, EKG, and all reports were personally reviewed. He drank 3 gallons of water yesterday for his hiccups and this likely cause a precipitous drop in sodium. This should correct with fluid restriction. Repeat BMP this evening to ensure it is correcting appropriately. We did discuss that drinking too much water in a short period of time could cause hyponatremia. Thorazine p.r.n. ordered for the hiccups. Vital signs were reviewed and they are stable. Hold hydrochlorothiazide. DS: Summary Hospital Course Hospital Course: 63-year-old male with chronic obstructive pulmonary disease, hypertension, hyperlipidemia, chronic hiccups, and glaucoma who presented to the emergency department at the direction of his doctor after he was found to have low sodium on labs. He has had issues with hiccups over the last 4 years and has had incessant hiccups for a couple of weeks. He drank 3 gallons of water yesterday and started to feel lightheaded, dizzy, and nauseated last night. He was seen per GI here with Dr Clarke- had upper and GI- with nothing found. He is supposed to have a f/u with another GI at [facility] for further workup. Na improved on am labs- and we discussed not to drink so much water to avoid this in the future. He was stable to be discharged with a close f/u. Status at Discharge Functional status at discharge: independent ambulation Overall status at discharge: patient is back to baseline Time Spent with Patient Time attestation: Total time spent providing and/or coordinating discharge services: Time spent: Greater than 30 minutes Exam Narrative: General: Nontoxic-appearing male sitting up in bed in no distress. Weight: 70 kg. BMI: 24.2. HEENT: Bilateral hearing aids. Status post right eye enucleation. Left cornea is cloudy with irregular pupil. Oral mucosa moist. Neck: Supple. Respiratory: Lung sounds are a bit diminished at the bases but are otherwise clear. Cardiovascular: Regular rate and rhythm with S1-S2. Gastrointestinal: Abdomen is soft, nontender, and nondistended with positive bowel sounds. Skin: Warm and dry. Extremities: No cyanosis, clubbing, or edema. Radial and pedal pulses intact. Neurological: Alert. Cranial nerves 2-12 are grossly intact. No gross focal deficits to casual conversation. Psychiatric: Pleasant and cooperative with normal mood and affect. Const: General: comfortable DS: Data Data Completed and Pending Labs on day of discharge: Labs from last 24 hours 06/29/24 06/28/24 06/28/24 06:38 19:23 12:26 WBC 7.3 7.4 RBC 4.17 L 4.06 L Hgb 12.0 L 11.7 L Hct 37.0 L 35.1 L MCV 88.7 86.5 MCH 28.8 28.8 MCHC 32.4 33.3 RDW 13.4 13.1 Plt Count 194 220 MPV 11.6 H 11.1 H Immature Gran % (Auto) 0.3 0.3 Neut % (Auto) 74.3 H 68.9 Lymph % (Auto) 16.7 L 22.6 [place] % (Auto) 6.6 6.2 Eos % (Auto) 1.4 1.5 Baso % (Auto) 0.7 0.5 Lymph # (Auto) 1.22 1.67 [place] # (Auto) 0.5 0.5 Eos # (Auto) 0.1 0.1 Baso # (Auto) 0.1 0.0 Abs Immat Gran (auto) 0.02 0.02 Absolute Neuts (auto) 5.4 5.1 Absolute Nucleated RBC 0.000 0.000 Nucleated RBC % 0.0 0.0 Sodium 136 L 131 L 122 L Potassium 4.3 4.4 4.4 Chloride 101 96 L 88 L Carbon Dioxide 26 28 24 Anion Gap 9 7 10 BUN 8 L 8 L 8 L Creatinine 0.70 0.80 0.70 Estim Creat Clear Calc 88 78 88 Estimated GFR > 60 > 60 > 60 Glucose 103 128 H 108 Calcium 9.4 9.4 9.2 Total Bilirubin 0.6 AST 20 ALT 10 Alkaline Phosphatase 53 Total Protein 8.0 Albumin 4.4 Discharge Plan Discharge Discharging Clinician: Maria D Ortiz Patient Disposition: Home, Self-Care Activity: may shower Diet: as tolerated and regular Patient Instructions: Antibiotic Form Stand Alone Forms: General Discharge Information Follow-up/Referrals: Celine,TRAVIS Lawler [Primary Care Provider] - Discharge Medications: Continued pantoprazole 40 mg tablet,delayed release (DR/EC) 40 mg PO BID 30 Days Qty: 60 5RF losartan 50 mg tablet 50 mg PO DAILY pravastatin 80 mg tablet 80 mg PO DAILY chlorpromazine 25 mg Tablet 25 mg PO QID PRN (Reason: Hiccups) Qty: 20 0RF budesonide-formoterol [Symbicort] 160-4.5 mcg/actuation HFA aerosol inhaler 2 puff inhalation Q12H Qty: 10.2 2RF albuterol sulfate 90 mcg/actuation HFA aerosol inhaler 1 inh inhalation QID PRN (Reason: shortness of breath or wheezing) Qty: 8.5 0RF dorzolamide-timolol 22.3-6.8 mg/mL drops 1 drp LEFT EYE TID cyanocobalamin (vitamin B-12) 100 mcg Tablet 2,000 mcg PO DAILY cholecalciferol (vitamin D3) [Vitamin D3] 25 mcg (1,000 unit) Capsule 25 mcg PO DAILY sucralfate 100 mg/mL Suspension 1,000 mg PO ACHS 14 Days Qty: 560 0RF prochlorperazine maleate [Compazine] 10 mg tablet 10 mg PO Q6H PRN (Reason: nausea and vomiting) Qty: 30 0RF prochlorperazine maleate 5 mg tablet 5 mg PO Q8H PRN (Reason: nausea and vomiting) 5 Days Qty: 20 0RF Held hydrochlorothiazide 12.5 mg capsule 12.5 mg PO DAILY Hold Instructions: Resume on 07/27/24. hold until sodium is repeated and instructed to restart it with PCP No Action montelukast 10 mg tablet 10 mg PO DAILY Date of admission: 06/28/24 15:59 Primary Care Provider: CelineNuris Admitting Provider: Jeremías Lee Attending physician on admission: Jeremías Lee Condition: Stable Quality VTE Prophylaxis VTE prophylaxis: mechanical ordered Hospitalist MIPS Heart Failure (Exclusion) Patient has history of Heart Transplant or Left Ventricular Assistive Device?: No IF YES, STOP HERE Heart Failure (Qualifier) Patient has current or prior documentation of LVEF less than or equal to 40%, or mod/servere depressed LVSF?: No IF NO, STOP HERE
== END 2024-06-29 18:35 | disposition home or self-care (01) | DRG 641 ==
LOC: ANHED 15:24 → ANH3MEDSUR 15:27
PROVIDERS: Emergency Medicine; Physician Assistant; Admitting Provider Internal Medicine; Emergency Provider Preventive Medicine Aerospace Medicine; PCP Physician Assistant; Visit Provider Nurse Practitioner
DX: E87.1 Hypo-osmolality and hyponatremia (principal); J44.9 Chronic obstructive pulmonary disease, unspecified; I10 Essential (primary) hypertension; R06.6 Hiccough; E78.5 Hyperlipidemia, unspecified; D63.8 Anemia in other chronic diseases classified elsewhere; H40.9 Unspecified glaucoma; H54.8 Legal blindness, as defined in USA; Z86.0101 Personal history of adenomatous and serrated colon polyps; Z87.891 Personal history of nicotine dependence; Z90.01 Acquired absence of eye
CPT/HCPCS: 36415; 71046; 80048; 80053; 85025; 93005; 94640; 99285; A9270; G0378

== ENCOUNTER 2024-07-02 07:08 | Emergency (ER) | payer MEDICARE, SELFPAY ==
--- NOTE | ~2024-07-02 | XR_ITS ---
EXAMINATION: XR chest 1V portable DATE: 07/02/2024 09:21 INDICATION: Chronic hiccups. Hyponatremia. TECHNIQUE: A single frontal view of the chest was obtained. COMPARISON: Chest 2 views 06/28/2024 FINDINGS: There is mild atelectasis in left lower lung zone. No pleural effusion or pneumothorax. The heart size is normal. IMPRESSION: 1. Mild atelectasis in left lower lung zone. Reviewed, dictated and finalized at location A.
[2024-07-02 07:27] VITALS: BP 157/75; PULSE 72; RESP 16; TEMP 36.8; O2SAT 99
[2024-07-02 07:37] VITALS: RESP 17; O2SAT 97
[2024-07-02 07:51] LABS: Add Urine Microscopic? NO; Appearance Urine Clear (Clear); Bilirubin Urine Negative (Negative); Blood Urine Negative (Negative); Color Urine Yellow (Yellow); Glucose Urine UA Negative (Negative); Ketones Urine Negative (Negative); Leukocyte Esterase Ur Negative LEU/UL (Negative); Nitrate Urine Negative (Negative); Protein Urine Negative (Negative); Specific Grav Ur 1.002 (1.001-1.035); Urobilinogen Urine 0.2 mg/dL (<2.0)
[2024-07-02 07:54] LABS: Basophils Percent Auto 0.2 % (0.2-1.2); Eosinophils Absolute Auto 0.1 K/mm3 (0-0.3); Eosinophils Percent Auto 0.6 % (0-4.4); Hematocrit 34.3 % (42.0-52.0); Hemoglobin 12.5 g/dL (14.0-18.0); Immature Granulocyte Absolute 0.05 K/mm3 (0.00-0.031); Immature Granulocyte Percent A 0.4 % (0-0.5); Lymphocytes Absolute Auto 1.01 K/mm3 (0.9-3.2); Lymphocytes Percent Auto 8.3 % (18.3-44.2); Mean Corpuscular HGB Conc 36.4 g/dl (32-36); Mean Corpuscular Hemoglobin 30.3 pg (26-34); Mean Corpuscular Volume 83.3 fl (80-100); Mean Platelet Volume 11.1 fl (7.4-10.4); Monocytes Absolute Auto 0.4 K/mm3 (0.1-0.6); Monocytes Percent Auto 3.4 % (2.6-8.5); Neutrophils Absolute Auto 10.6 K/mm3 (1.3-6.7); Neutrophils Percent Auto 87.1 % (45.5-73.1); Platelet Count Result 255 k/mm3 (150-375); Red Blood Count 4.12 M/mm3 (4.6-6.20); Red Cell Distribution Width 12.6 % (11.5-14.5); White Blood Count 12.2 K/mm3 (4.5-10.0)
--- NOTE | 2024-07-02 07:57 | ED.GENADULT ---
HPI - General Adult General Chief complaint: Recheck/Abnormal Lab/Rx Stated complaint: CHENEY, lightheaded Time Seen by Provider: 07/02/24 07:36 History of Present Illness HPI narrative: 63-year-old male presents emergency department for evaluation for headaches and suspected hyponatremia. Patient does have chronic hyponatremia due to chronic hiccups. Patient states he does drink a lot of water every day. Patient does take salt tabs as well. Patient was just admitted overnight approximately a week ago for hyponatremia. Patient states that he does have some baseline dyskinesia from the medications for his hiccups. Patient's primary complaint is lightheadedness and headache. Related Data Home Medications Medication Instructions Recorded Confirmed losartan 50 mg tablet 50 mg PO DAILY 03/02/21 06/28/24 montelukast 10 mg tablet 10 mg PO DAILY 03/02/21 06/28/24 pravastatin 80 mg tablet 80 mg PO DAILY 03/02/21 06/28/24 cholecalciferol (vitamin D3) 25 25 mcg PO DAILY 03/29/21 06/28/24 mcg (1,000 unit) capsule (Vitamin D3) cyanocobalamin (vitamin B-12) 100 2,000 mcg PO DAILY 03/29/21 06/28/24 mcg tablet hydrochlorothiazide 12.5 mg capsule 12.5 mg PO DAILY 04/27/21 06/28/24 dorzolamide 22.3 mg-timolol 6.8 1 drp LEFT EYE TID 06/29/24 06/29/24 mg/mL eye drops Allergies Allergy/AdvReac Type Severity Reaction Status Date / Time No Known Allergies Allergy Verified 07/02/24 07:33 Review of Systems Review of Systems: All systems reviewed & are unremarkable except as noted in HPI and below PMFSH Past Medical History Medical History (Updated 07/02/24 @ 10:30 by Cas Leon MD) Adenomatous colon polyp Anemia of chronic disease Chronic hiccups Chronic obstructive pulmonary disease Erosive esophagitis Glaucoma Legally blind. Hyperlipidemia Hypertension Hyponatremia Normocytic anemia Tobacco abuse Surgical History Surgical History History of enucleation of eye Right, secondary to recurrent infection. Family History Family History Grandparent Acute myocardial infarction Mother Acute myocardial infarction Father Acute myocardial infarction Sibling Cancer Social History Social History (Updated 06/28/24 @ 20:06 by Shalonda Sebastian PA-C) Social History: Surrogate decision maker: Svitlana Hines, . Code status: Full code. Smoking packs per day: 1 Smoking cigarettes per day: 20.0 Years smoked: 30 Smoking pack-years: 30.00 Smoking status: Former smoker Tobacco type: cigarettes Alcohol intake: current Drinks per week: 1 Substance use: never Substance use type: does not use Do You Feel Safe in your Home?: Yes Lack of Transportation: No Lack of Food: Never True Current Housing: I Have Housing Concerned About Future Housing: No Difficulty Paying Gas/Electric Bills: No Difficulty Paying for Meds: No Currently Unemployed: No Education: Don't Know Difficulty w/ Childcare or Family Care: No Living arrangements: with family Additional living arrangements comments: The patient lives with his in [place]. 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 Spiritual care concerns: No Exam Narrative: APPEARANCE: Well appearing, no pain, no distress, well-nourished. HEAD: normocephalic, atraumatic. EYES: Patient is blind NOSE: Normal no drainage EARS:TMS clear with good light reflex. THROAT: Pharynx clear, no exudate. NECK: Supple. No adenopathy, no masses. RESPIRATORY: Airway patent, respirations nonlabored. Clear to auscultation bilaterally, no rales, rhonchi, wheezing. CARDIOVASCULAR: Regular rate and rhythm without murmurs rubs or gallops. ABDOMINAL: Soft, nontender, nondistended, normal bowel sounds MUSCULOSKELETAL: Moves all extremities. Strength/ROM intact, No edema, No calf
[2024-07-02 08:00] LABS: Alanine Aminotransferase 11 U/L (6-50); Albumin Level 4.5 g/dL (3.5-5.1); Alkaline Phosphatase 63 U/L (38-126); Anion Gap 12 mmol/L (4-12); Aspartate Amino Transferase 22 U/L (17-59); Bilirubin,Total 0.8 mg/dL (0.2-1.3); Blood Urea Nitrogen 3 mg/dL (9-20); Calcium 9.4 mg/dL (8.4-10.2); Carbon Dioxide 24 mmol/L (22-30); Chloride 85 mmol/L (98-107); Estimated CRCL calculation 101 ml/min; Estimated Glomerular Filt Rate > 60; Glucose 130 mg/dL (65-110); Lipase 63 U/L (23-300); Sodium 121 mmol/L (137-145)
[2024-07-02] MEDS: SODIUM CHLORIDE 0.9% IV 1,000 ML 999 ML IV CONT (08:58)
[2024-07-02] MEDS: KETOROLAC 15 MG/ML VIAL (*BKC) IV PUSH (08:58)
[2024-07-02 09:01] VITALS: BP 138/86; PULSE 65; RESP 20; O2SAT 100
[2024-07-02 10:23] VITALS: BP 160/70; PULSE 70; RESP 17; O2SAT 98
[2024-07-02 10:38] VITALS: BP 144/72; PULSE 70; RESP 20; TEMP 36.6; O2SAT 98
== END 2024-07-02 10:40 | disposition home or self-care (01) ==
PROVIDERS: Emergency Provider Emergency Medicine; PCP Physician Assistant
DX: E87.1 Hypo-osmolality and hyponatremia (principal); I10 Essential (primary) hypertension; E78.5 Hyperlipidemia, unspecified; J44.9 Chronic obstructive pulmonary disease, unspecified; H40.9 Unspecified glaucoma; H54.8 Legal blindness, as defined in USA; D63.8 Anemia in other chronic diseases classified elsewhere; Z86.0101 Personal history of adenomatous and serrated colon polyps; Z87.891 Personal history of nicotine dependence; Z79.899 Other long term (current) drug therapy
CPT/HCPCS: 36415; 71045; 80053; 81003; 83690; 85025; 96361; 96374; 99284; J1885; J7030

== ENCOUNTER 2024-09-08 16:29 | Emergency (ER) | payer MEDICARE, SELFPAY ==
[2024-09-08 16:32] VITALS: BP 136/75; PULSE 77; RESP 18; TEMP 36.4; O2SAT 99
[2024-09-08] MEDS: SODIUM CHLORIDE 0.9% IV 1,000 ML 999 ML IV CONT (18:14)
[2024-09-08 18:26] LABS: Basophils Absolute Auto 0.1 K/mm3 (0.0-0.1); Basophils Percent Auto 0.3 % (0.2-1.2); Eosinophils Absolute Auto 0.2 K/mm3 (0-0.3); Eosinophils Percent Auto 1.6 % (0-4.4); Hematocrit 32.8 % (42.0-52.0); Hemoglobin 11.3 g/dL (14.0-18.0); Immature Granulocyte Absolute 0.04 K/mm3 (0.00-0.031); Immature Granulocyte Percent A 0.3 % (0-0.5); Lymphocytes Absolute Auto 0.91 K/mm3 (0.9-3.2); Lymphocytes Percent Auto 5.9 % (18.3-44.2); Mean Corpuscular HGB Conc 34.5 g/dl (32-36); Mean Corpuscular Hemoglobin 29.4 pg (26-34); Mean Corpuscular Volume 85.2 fl (80-100); Mean Platelet Volume 11.7 fl (7.4-10.4); Monocytes Absolute Auto 0.7 K/mm3 (0.1-0.6); Monocytes Percent Auto 4.8 % (2.6-8.5); Neutrophils Absolute Auto 13.4 K/mm3 (1.3-6.7); Neutrophils Percent Auto 87.1 % (45.5-73.1); Platelet Count Result 197 k/mm3 (150-375); Red Blood Count 3.85 M/mm3 (4.6-6.20); Red Cell Distribution Width 12.7 % (11.5-14.5); White Blood Count 15.4 K/mm3 (4.5-10.0)
[2024-09-08 18:39] LABS: Alanine Aminotransferase 8 U/L (6-50); Albumin Level 4.1 g/dL (3.5-5.1); Alkaline Phosphatase 72 U/L (38-126); Anion Gap 7 mmol/L (4-12); Aspartate Amino Transferase 18 U/L (17-59); Bilirubin,Total 0.7 mg/dL (0.2-1.3); Blood Urea Nitrogen 6 mg/dL (9-20); Calcium 9.2 mg/dL (8.4-10.2); Carbon Dioxide 23 mmol/L (22-30); Chloride 94 mmol/L (98-107); Estimated CRCL calculation 105 ml/min; Estimated Glomerular Filt Rate > 60; Glucose 107 mg/dL (65-110); Potassium 4.2 mmol/L (3.4-5.0); Sodium 124 mmol/L (137-145)
[2024-09-08] MEDS: ACETAMINOPHEN 325 MG TABLET 650 MG PO (19:10)
--- NOTE | 2024-09-08 19:37 | ED.GENADULT ---
HPI - General Adult General Chief complaint: Recheck/Abnormal Lab/Rx Stated complaint: low sodium Time Seen by Provider: 09/08/24 17:49 History of Present Illness HPI narrative: 63-year-old male present to the emergency department for evaluation for suspected hyponatremia. Patient does have a history of low sodium. Patient does have a history of chronic hiccups for which he has had multiple follow-ups floor. Patient states in order to treat his chronic hiccups that he does drink water and patient does admit that sometimes he goes over port and drinks too much water. Related Data Home Medications ?Medication ?Instructions ?Recorded ?Confirmed ?Last Taken ?Type losartan 50 mg tablet 50 mg PO DAILY 03/02/21 06/28/24 07/13/21 History montelukast 10 mg tablet 10 mg PO DAILY 03/02/21 06/28/24 07/13/21 History pravastatin 80 mg tablet 80 mg PO DAILY 03/02/21 06/28/24 07/13/21 History cholecalciferol (vitamin D3) 25 25 mcg PO DAILY 03/29/21 06/28/24 07/13/21 History mcg (1,000 unit) capsule (Vitamin D3) cyanocobalamin (vitamin B-12) 100 2,000 mcg PO DAILY 03/29/21 06/28/24 07/13/21 History mcg tablet hydrochlorothiazide 12.5 mg capsule 12.5 mg PO DAILY 04/27/21 06/28/24 07/13/21 History dorzolamide 22.3 mg-timolol 6.8 1 drp LEFT EYE TID 06/29/24 06/29/24 06/28/24 History mg/mL eye drops Allergies Allergy/AdvReac Type Severity Reaction Status Date / Time No Known Allergies Allergy Verified 09/08/24 16:30 Review of Systems Review of Systems: All systems reviewed & are unremarkable except as noted in HPI and below PMFSH Past Medical History Medical History (Updated 09/09/24 @ 00:01 by Emerson Clark) Adenomatous colon polyp Erosive esophagitis Anemia of chronic disease Chronic hiccups Hyponatremia Tobacco abuse Normocytic anemia Glaucoma Legally blind. Chronic obstructive pulmonary disease Hyperlipidemia Hypertension Surgical History Surgical History History of enucleation of eye Right, secondary to recurrent infection. Family History Family History Grandparent Acute myocardial infarction Mother Acute myocardial infarction Father Acute myocardial infarction Sibling Cancer Social History Social History (Updated 06/28/24 @ 20:06 by Shalonda Sebastian PA-C) Social History: Surrogate decision maker: Svitlana Hines, . Code status: Full code. Smoking packs per day: 1 Smoking cigarettes per day: 20.0 Years smoked: 30 Smoking pack-years: 30.00 Smoking status: Former smoker Tobacco type: cigarettes Alcohol intake: current Drinks per week: 1 Substance use: never Substance use type: does not use Do You Feel Safe in your Home?: Yes Lack of Transportation: No Lack of Food: Never True Current Housing: I Have Housing Concerned About Future Housing: No Difficulty Paying Gas/Electric Bills: No Difficulty Paying for Meds: No Currently Unemployed: No Education: Don't Know Difficulty w/ Childcare or Family Care: No Living arrangements: with family Additional living arrangements comments: The patient lives with his in [place]. 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 Spiritual care concerns: No Exam Narrative: APPEARANCE: Uncomfortable appearing from hiccups HEAD: normocephalic, atraumatic. EYES: PERRLA/EOMI, conjunctivae clear. NOSE: Normal no drainage EARS:TMS clear with good light reflex. THROAT: Pharynx clear, no exudate. NECK: Supple. No adenopathy, no masses. RESPIRATORY: Airway patent, respirations nonlabored. Clear to auscultation bilaterally, no rales, rhonchi, wheezing. CARDIOVASCULAR: Regular rate and rhythm without murmurs rubs or gallops. ABDOMINAL: Soft, nontender, nondistended, normal bowel sounds MUSCULOSKELETAL: Moves all extremities. Strength/ROM intact, No edema, No calf tenderness. NEURO: Alert. Cranial nerves II through XII intact. Grossly intact SKIN: Warm, dry. Normal Color Course Vital Signs Vital signs: Vital Signs Temperature 97.6 F 09/08/24 16:32 Pulse Rate 77 09/08/24 16:32 Respiratory Rate 18 09/08/24 16:32 Blood Pressure 136/75 09/08/24 16:32 Pulse Oximetry 99 09/08/24 16:32 Oxygen Delivery Room Air 09/08/24 16:32 Temperature 97.6 F 09/08/24 16:32 Pulse Rate 83 09/08/24 20:14 Respiratory Rate 16 09/08/24 20:14 Blood Pressure 142/62 H 09/08/24 20:14 Pulse Oximetry 97 09/08/24 20:14 Oxygen Delivery Room Air 09/08/24 16:32 Medical Decision Making [facility] Narrative Medical decision making narrative: 61-year-old male presents to the emergency department for evaluation for suspected hyponatremia. Patient is afebrile but does have a white count of 15.4. Patient does have a sodium of 124. Patient has had sodiums 115. Patient is producing a lot of urine. Patient was treated with a L of IV fluids id patient. Patient was also treated with Tylenol to help with headache. Patient was offered admission but preferred to be discharged home. Differential Diagnosis Differential Diagnosis: Hyponatremia, hypokalemia, excess free fluid, headache Vital Signs Vital Signs: Vital Signs Temperature 97.6 F 09/08/24 16:32 Pulse Rate 77 09/08/24 16:32 Respiratory Rate 18 09/08/24 16:32 Blood Pressure 136/75 09/08/24 16:32 Pulse Oximetry 99 09/08/24 16:32 Oxygen Delivery Room Air 09/08/24 16:32 Temperature 97.6 F 09/08/24 16:32 Pulse Rate 83 09/08/24 20:14 Respiratory Rate 16 09/08/24 20:14 Blood Pressure 142/62 H 09/08/24 20:14 Pulse Oximetry 97 09/08/24 20:14 Oxygen Delivery Room Air 09/08/24 16:32 Lab Data 09/08/24 18:16 09/08/24 18:16 Labs: Lab Results 09/08/24 Range/Units 18:16 WBC 15.4 H (4.5-10.0) K/mm3 RBC 3.85 L (4.6-6.20) M/mm3 Hgb 11.3 L (14.0-18.0) g/dL Hct 32.8 L (42.0-52.0) % MCV 85.2 (80-100) fl MCH 29.4 (26-34) pg MCHC 34.5 (32-36) g/dl RDW 12.7 (11.5-14.5) % Plt Count 197 (150-375) k/mm3 MPV 11.7 H (7.4-10.4) fl Immature Gran % (Auto) 0.3 (0-0.5) % Neut % (Auto) 87.1 H (45.5-73.1) % Lymph % (Auto) 5.9 L (18.3-44.2) % [place] % (Auto) 4.8 (2.6-8.5) % Eos % (Auto) 1.6 (0-4.4) % Baso % (Auto) 0.3 (0.2-1.2) % Lymph # (Auto) 0.91 (0.9-3.2) K/mm3 [place] # (Auto) 0.7 H (0.1-0.6) K/mm3 Eos # (Auto) 0.2 (0-0.3) K/mm3 Baso # (Auto) 0.1 (0.0-0.1) K/mm3 Abs Immat Gran (auto) 0.04 H (0.00-0.031) K/mm3 Absolute Neuts (auto) 13.4 H (1.3-6.7) K/mm3 Absolute Nucleated RBC 0.000 (0.0-0.012) K/mm3 Nucleated RBC % 0.0 (0.0-0.2) % Sodium 124 L (137-145) mmol/L Potassium 4.2 (3.4-5.0) mmol/L Chloride 94 L (98-107) mmol/L Carbon Dioxide 23 (22-30) mmol/L Anion Gap 7 (4-12) mmol/L BUN 6 L (9-20) mg/dL Creatinine 0.60 L (0.7-1.3) mg/dL Estim Creat Clear Calc 105 ml/min Estimated GFR > 60 (59 - ) Glucose 107 (65-110) mg/dL Calcium 9.2 (8.4-10.2) mg/dL Total Bilirubin 0.7 (0.2-1.3) mg/dL AST 18 (17-59) U/L ALT 8 (6-50) U/L Alkaline Phosphatase 72 (38-126) U/L Total Protein 7.0 (6.3-8.2) g/dL Albumin 4.1 (3.5-5.1) g/dL Discharge Plan Discharge Clinical Impression: Chronic hyponatremia Patient Disposition: Home, Self-Care Condition: Stable Instructions: Antibiotic Form, Hyponatremia (ED) Additional Instructions: Drink less water. Continue to have close follow-up with your physicians. If you have any worsening symptoms then please call or return to the emergency department. Patient Language: Bruneian Prescriptions: No Action pantoprazole 40 mg tablet,delayed release (DR/EC) 40 mg PO BID 30 Days Qty: 60 5RF losartan 50 mg tablet 50 mg PO DAILY pravastatin 80 mg tablet 80 mg PO DAILY montelukast 10 mg tablet 10 mg PO DAILY hydrochlorothiazide 12.5 mg capsule 12.5 mg PO DAILY chlorpromazine 25 mg Tablet 25 mg PO QID PRN (Reason: Hiccups) Qty: 20 0RF budesonide-formoterol [Symbicort] 160-4.5 mcg/actuation HFA aerosol inhaler 2 puff inhalation Q12H Qty: 10.2 2RF albuterol sulfate 90 mcg/actuation HFA aerosol inhaler 1 inh inhalation QID PRN (Reason: shortness of breath or wheezing) Qty: 8.5 0RF dorzolamide-timolol 22.3-6.8 mg/mL drops 1 drp LEFT EYE TID cyanocobalamin (vitamin B-12) 100 mcg Tablet 2,000 mcg PO DAILY cholecalciferol (vitamin D3) [Vitamin D3] 25 mcg (1,000 unit) Capsule 25 mcg PO DAILY sucralfate 100 mg/mL Suspension 1,000 mg PO ACHS 14 Days Qty: 560 0RF prochlorperazine maleate [Compazine] 10 mg tablet 10 mg PO Q6H PRN (Reason: nausea and vomiting) Qty: 30 0RF prochlorperazine maleate 5 mg tablet 5 mg PO Q8H PRN (Reason: nausea and vomiting) 5 Days Qty: 20 0RF Follow-up/Referrals: Celine,TRAVIS Lawler [Primary Care Provider] -
[2024-09-08 19:55] VITALS: BP 144/65; PULSE 80; RESP 16; O2SAT 98
[2024-09-08] MEDS: FUROSEMIDE INJ 40 MG/4 ML VIAL IV PUSH (20:13)
[2024-09-08 20:14] VITALS: BP 142/62; PULSE 83; RESP 16; O2SAT 97
--- NOTE | 2024-09-08 20:15 | PC.NURSE ---
pt given 20mg, 2ml, of furosemide at 2013 per EDP, Dr. Painting verbal order
== END 2024-09-08 20:28 | disposition home or self-care (01) ==
PROVIDERS: Emergency Provider Emergency Medicine; PCP Physician Assistant
DX: E87.1 Hypo-osmolality and hyponatremia (principal); E78.5 Hyperlipidemia, unspecified; I10 Essential (primary) hypertension; J44.9 Chronic obstructive pulmonary disease, unspecified; D63.8 Anemia in other chronic diseases classified elsewhere; R06.6 Hiccough; H40.9 Unspecified glaucoma; H54.8 Legal blindness, as defined in USA; Z86.0101 Personal history of adenomatous and serrated colon polyps; Z87.891 Personal history of nicotine dependence; Z79.899 Other long term (current) drug therapy
CPT/HCPCS: 36415; 80053; 85025; 96361; 96374; 99284; A9270; J1940; J7030

== ENCOUNTER 2024-12-21 14:53 | Emergency (ER) | payer MEDICARE, SELFPAY ==
[2024-12-21] VITALS (7 sets, daily range): BP systolic 145–167; BP diastolic 67–89; PULSE 63–74; RESP 18–25; TEMP 36.6–36.9; O2SAT 98–99
--- OUTSIDE RECORDS SUMMARY | 2024-12-21 15:18 | XMS_ITS | Clinical Summary ---
Author Organization [facility] [address] [facility] Address [address] [place] [address] Care Team Providers Care Rubber Goods Inspector Name Role Phone Nuris Begrer Primary Care Provider [phone] Jonatan Stokes MD Unavailable [phone] Irma Bajwa MD Unavailable [phone] Allergies Active Allergy Reactions Criticality Noted Date Comments Chlorpromazine Other (See comments) Low 12/02/2023 Neurology consult during his 12/02/2023 hospitalization states the facial twitching is NOT consistent with Tardive Dyskinesia so ok to use Thorazine prn for the chronic intractable hiccups Medications albuterol HFA (PROVENTIL HFA,VENTOLIN HFA,PROAIR HFA) 90 mcg/actuation inhalerIndicati ons:Chronic obstructive pulmonary disease, unspecified COPD type (HCC),Uncomplic ated asthma, unspecified asthma severity, unspecified whether persistent Inhale 2 puffs every 6 (six) hours as needed for wheezing or shortness of breath 1 each 6 11/20/19 23 Active cyanocobalamin (Vitamin B-12) 100 mcg tablet Take 1 tablet (100 mcg total) by mouth daily Active dorzolamide-jose oloL (COSOPT) 22.3-6.8 mg/mL ophthalmic solution INSTILL 1 DROP IN LEFT EYE THREE TIMES DAILY Active neomycin-polymy merlene-dexAMETHaso ne (MAXITROL) 3.5mg/mL-10,000 unit/mL-0.1 % ophthalmic suspension SHAKE LIQUID AND INSTILL 1 DROP IN RIGHT EYE TWICE DAILY NEEDED 07/01/20 23 Active cholecalciferol (VITAMIN D-3) 25 mcg (1,000 unit) tablet Take 1 tablet (1,000 Units total) by mouth daily 11/24/19 24 Active aspirin 81 mg enteric coated tablet Take 1 tablet (81 mg total) by mouth daily 06/20/20 24 025 Active tobramycin-dexA METHasone (TOBRADEX) ophthalmic solution INSTILL 1 DROP LEFT EYE EVERY NIGHT AT BEDTIME 06/10/20 24 Active prednisoLONE acetate (PRED FORTE) 1 % ophthalmic suspension 04/24/20 24 Active polymyxin B-trimethoprim (POLYTRIM) ophthalmic solution INSTILL 1 DROP IN LEFT EYE FOUR TIMES DAILY 04/26/20 24 Active montelukast (SINGULAIR) 10 mg tabletIndicatio ns:Uncomplicate d asthma, unspecified asthma severity, unspecified whether persistent TAKE 1 TABLET(10 MG) BY MOUTH EVERY NIGHT 90 tablet 2 07/17/20 24 Active losartan (COZAAR) 50 mg tablet TAKE 1 TABLET(50 MG) BY MOUTH DAILY 90 tablet 1 07/17/20 24 Active budesonide-form oteroL (SYMBICORT) 80-4.5 mcg/actuation inhalerIndicati ons:Mild persistent asthma without complication,Ch ronic obstructive pulmonary disease, unspecified COPD type (HCC) INHALE 2 PUFFS BY MOUTH TWICE DAILY. RINSE MOUTH WITH WATER AFTER USE. DO NOT SWALLOW 30.6 g 1 09/18/20 24 Active gabapentin (NEURONTIN) 300 mg capsuleIndicati ons:Chronic hiccups TAKE 1 CAPSULE(300 MG) BY MOUTH THREE TIMES DAILY 300 capsule 09/23/19 25 Active pravastatin (PRAVACHOL) 80 mg tablet Take 1 tablet (80 mg total) by mouth daily 90 tablet 1 11/20/19 25 Active metoclopramide (REGLAN) 10 mg tablet Take 1 tablet (10 mg total) by mouth 4 (four) times a day 120 tablet 2 11/20/19 25 Active sodium chloride 1 gram tablet Take 1 tablet (1 g total) by mouth 3 (three) times a day 90 tablet 3 11/20/19 25 Active baclofen (LIORESAL) 10 mg tabletIndicatio ns:Low back pain, unspecified back pain laterality, unspecified chronicity, unspecified whether sciatica present TAKE 1 TABLET(10 MG) BY MOUTH TWICE DAILY 60 tablet 1 12/05/[address] (PROTONIX) 40 mg EC tablet Take 1 tablet (40 mg total) by mouth daily 90 tablet 2 12/08/19 25 Active baclofen (LIORESAL) 10 mg tabletIndicatio ns:Low back pain, unspecified back pain laterality, unspecified chronicity, unspecified whether sciatica present Take 1 tablet (10 mg total) by mouth 2 (two) times a day 60 tablet 1 09/07/20 [address] (PROTONIX) 40 mg EC tabletIndicatio ns:Treatment of Non-Bleeding Gastric Disorder Take 1 tablet (40 mg total) by mouth 2 (two) times a day Take twice a month ( for hiccup treatment) then stop or continue daily after one month 60 tablet 2 11/20/[address] (PROTONIX) 40 mg EC tablet TAKE 1 TABLET BY MOUTH TWICE DAILY. TAKE TWICE A MONTH(FOR HICCUP TREATMENT) THEN STOP OR CONTINUE DAILY AFTER 1 MONTH 200 tablet 1 12/08/19 25 025 Discontinued Active Problems Patient Care Coordination No te Formatting of this note migh t be different from the original. CAD for BIC Problem Noted Date Diagnosed Date Annual physical exam 11/19/2024 Assessment & Plan (11/19/2024 11:45 PM CARPENTER LABOR SUPERVISOR): Encouraged healthy lifestyle, good nutrition and exercise. Encouraged Calcium and Vitamin D and weight bearing exercise for bone health. Reviewed immunizations Reviewed age appropirate screenings. BMI 23.0-23.9, adult 06/20/2024 Assessment & Plan (10/30/2024 8:57 AM CARPENTER LABOR SUPERVISOR): Weight/BMI is in healthy range. Continue healthy lifestyle to maintain. Assessment & Plan (06/20/2024 7:44 AM CDT): Weight/BMI is in healthy range. Continue healthy lifestyle to maintain. Vitamin D deficiency 11/24/2023 Assessment & Plan (11/19/2024 11:45 PM CARPENTER LABOR SUPERVISOR): Supplement Assessment & Plan (05/20/2024 7:36 PM CDT): Supplement Fatigue 12/12/2022 Assessment & Plan (05/20/2024 7:37 PM CDT): Probably multifactorial. Check labs and followup to re-evaluate Assessment & Plan (11/24/2023 10:35 AM CARPENTER LABOR SUPERVISOR): Probably multifactorial. Check labs and followup to re-evaluate Assessment & Plan (12/12/2022 9:43 PM CDT): Probably multifactorial. Check labs and followup to re-evaluate Coronary artery calcification 07/09/2022 History of staph pneumonia 05/09/2022 Assessment & Plan (05/09/2022 8:21 PM CDT): Patient is feeling much better. Complete the Augmentin course. Continue with his albuterol Symbicort Mucinex and Singulair. Recommend repeat chest x-ray in 3-4 weeks. If his symptoms worsen he is to follow back up in the office immediately. Chronic hiccups 01/16/2022 Assessment & Plan (11/19/2024 11:44 PM CARPENTER LABOR SUPERVISOR): Chronic hiccups for 5+ years Has been evaluated by GI, ENT, Neuro and to the ER multiple times. Has been on Thorazine (ER give it to him for a short course) and Zofran and on/off PPI. Most recently doing Reglan, pantoprazole, baclofen and gabapentin Will have times where they hiccups are better controlled then reoccurs and can't get control -- Usually related to low sodium levels/excessive water intake where he will then go to the ER. ER recommended referral to [facility] but patient states he can't go to a specialist that far away Continue sodium supplementation, gabapentin and Reglan as needed Assessment & Plan (06/20/2024 8:25 AM CDT): Patient has chronic history of hiccups with exacerbations. Was recently in ER for exacerbation. He has been seen by multiple specialists and has trialed multiple medications. Plan to continue baclofen, gabapentin, metoclopramide, PPI, salt tablets. Assessment & Plan (05/20/2024 7:36 PM CDT): Patient has had chronic hiccups for 5 years. Has been evaluated by GI ENT neuro as well as multiple ER visits. He is currently on gabapentin Zofran alternating with Reglan and baclofen for the hiccups. Stressed importance of monitoring his water intake as he will often drink so much water trying to care of the hiccups that he becomes hypo natremia requiring an ER visit. Patient states he is feeling good today and has had less hiccups in the last few weeks Assessment & Plan (11/24/2023 10:34 AM CARPENTER LABOR SUPERVISOR): Patient has persistent chronic hiccups that come and go. He has seen multiple specialists including ENT Neurology and GI. Truly never have found something that prevents the hiccups. He will experience exacerbation increase his fluids become hyponatremic and end up in the ER. Thorazine as usually what he discharges on and it will help short-term. He states currently he is using 1 Thorazine at bedtime until they run out. He does appear to have little bit of tardive dyskinesia around his facial muscles so discussed this and advised I would be hesitant to provide long-term. Offered referral to anywhere he would like to go but he states it is in possible for him to see a specialist across the country at this point. Will continue to monitor Assessment & Plan (08/15/2023 5:01 PM CARPENTER LABOR SUPERVISOR): Chronic hiccups for years. Has tried multiple interventions along with multiple workups from specialists including Neurology pulmonology and GI. Continue current regimen. Stressed importance of limiting water intake when he has the hiccups spells as this has been leading to hyponatremia requiring hospitalization. Assessment & Plan (08/11/2023 8:45 AM CARPENTER LABOR SUPERVISOR): Patient with chronic hiccups. Have had difficulty controlling these have tried multiple medication regimens and has had multiple evaluations with Neurology, ENT, GI. He always resorts back to drinking more fluids which creates the hyponatremia. Again reviewed this pathophysiology and encouraged the not over drink fluids when the hiccups are occurring. He continues to take sodium tablets 3 times a day and still ends up hyponatremic. Will go ahead and recheck a CMP for levels. He is currently on regimen of Neurontin 200 mg in the a.m. mid day and 400 at night. Pantoprazole was increased to 40 mg b.i.d. and was started on Reglan 10 mg q.i.d.. Seems to have a little bit of movement of his head so will keep a close eye to see if this exacerbates as concern for tardive dyskinesia. Assessment & Plan (04/08/2023 8:49 PM CDT): Patient has had persistent chronic hiccups with multiple hospitalizations. He is now getting to where he is drinking so much water he is developing hyponatremia. Reviewed with him the fluid restrictions at about 1200 mL a day. He was sent home on salt tablets and he is taking those t.i.d.. He is due to repeat a CBC with diff and a BMP so these orders were provided to him. Found a device called hiccups away. Provided him with information. Advised physician created this for chronic hiccups and although I am unsure of the cost or how to order it this may be information he can look up to see if it could be helpful. Assessment & Plan (12/12/2022 9:45 PM CDT): Patient with chronic hiccups. Seems to be responding to the baclofen. Continue. Monitor sodium levels. Assessment & Plan (08/15/2022 6:45 PM CARPENTER LABOR SUPERVISOR): Patient has consulted with most multiple specialists and continues to follow-up for ER visits hiccups get out of control. Currently on gabapentin 100 t.i.d.. Wants to increase to 300 t.i.d.. New prescription written. Also use baclofen. Assessment & Plan (05/09/2022 8:19 PM CDT): Patient is currently on Haldol. He is to follow instructions from the neurologist in the hospital. Follow-up with Neurology as instructed. He confirmed he is not taking Thorazine. I will refill his gabapentin so he can take 200 mg in the morning to 100 in the middle of the day and 300 at night by utilizing 100 mg tablets. He verbalized understanding this was also provided with a written handout to take home. Assessment & Plan (01/21/2022 12:00 PM CDT): Patient is tolerating the Thorazine 25 mg t.i.d.. He thinks it is helping and denies any tremors or sedation affects. Will monitor and continue with refills. Hyponatremia 05/17/2021 Assessment & Plan (06/20/2024 8:25 AM CDT): Sodium was 125 during recent ER visit. Will plan to repeat CMP to re-check sodium levels. Continue sodium chloride tablets 1000 mg TID. Assessment & Plan (05/20/2024 7:37 PM CDT): Most recent labs have been stable. He has a hyponatremia related to excessive water use when he has the hiccups. Assessment & Plan (08/15/2023 5:02 PM CARPENTER LABOR SUPERVISOR): Chronic hiccups for years. Has tried multiple interventions along with multiple workups from specialists including Neurology pulmonology and GI. Continue current regimen. Stressed importance of limiting water intake when he has the hiccups spells as this has been leading to hyponatremia requiring hospitalization. Assessment & Plan (08/11/2023 8:46 AM CARPENTER LABOR SUPERVISOR): Hyponatremia secondary to water intake with chronic hiccups. Patient with chronic hiccups. Have had difficulty controlling these have tried multiple medication regimens and has had multiple evaluations with Neurology, ENT, GI. He always resorts back to drinking more fluids which creates the hyponatremia. Again reviewed this pathophysiology and encouraged the not over drink fluids when the hiccups are occurring. He continues to take sodium tablets 3 times a day and still ends up hyponatremic. Will go ahead and recheck a CMP for levels. He is currently on regimen of Neurontin 200 mg in the a.m. mid day and 400 at night. Pantoprazole was increased to 40 mg b.i.d. and was started on Reglan 10 mg q.i.d.. Seems to have a little bit of movement of his head so will keep a close eye to see if this exacerbates as concern for tardive dyskinesia. Assessment & Plan (12/12/2022 9:44 PM CDT): Monitor labs Assessment & Plan (05/17/2021 11:42 PM CDT): Low in hospital. Recheck labs. Gastroesophageal reflux disease with esophagitis 07/14/2019 Assessment & Plan (11/19/2024 11:44 PM CARPENTER LABOR SUPERVISOR): Continue PPI p.r.n. Assessment & Plan (05/20/2024 7:35 PM CDT): Continue pantoprazole p.r.n. Assessment & Plan (11/24/2023 10:33 AM CARPENTER LABOR SUPERVISOR): Continue pantoprazole p.r.n. Assessment & Plan (04/08/2023 8:48 PM CDT): Continue PPI p.r.n. Assessment & Plan (12/12/2022 9:43 PM CDT): Insert PPI Assessment & Plan (08/15/2022 6:45 PM CARPENTER LABOR SUPERVISOR): Continue PPI prn Assessment & Plan (02/09/2021 8:17 PM CDT): Continue PPI Assessment & Plan (07/29/2020 7:33 AM CARPENTER LABOR SUPERVISOR): Continue PPI Assessment & Plan (03/27/2020 8:01 AM CDT): Dr. Stokes changed him from omeprazole to Pantoprazole for the hiccups. Pt hasn't noted any difference in GERD sxs (still well controlled) or hiccups. Assessment & Plan (09/26/2019 7:38 AM CARPENTER LABOR SUPERVISOR): Continue PPI Assessment & Plan (07/14/2019 8:46 AM CDT): Discussed GERD at length including anatomy, behavioral changes (raise HOB, meal timings), dietary changes and medication options. Reviewed risks, benefits alternatives, side effects and proper use. Followup if sxs worsen or has hematochezia or hematemeis. Start PPI Chronic obstructive pulmonary disease 06/26/2019 Overview (06/26/2019): Noted on 06/2019 LDCT Assessment & Plan (11/19/2024 11:44 PM CARPENTER LABOR SUPERVISOR): Patient with allergies and COPD. Continue Singulair albuterol and Symbicort. Follows with Dr. Valdes. Assessment & Plan (05/20/2024 7:35 PM CDT): Continue per Dr. Valdes. Continue with his Symbicort and albuterol inhalers. Low-dose CT will be scheduled for June 16, 2024. Assessment & Plan (11/24/2023 10:33 AM CARPENTER LABOR SUPERVISOR): COPD. Continue per Dr. Hammond his animal taxonomist Continue Symbicort Singulair and albuterol p.r.n. Assessment & Plan (04/08/2023 8:48 PM CDT): Encouraged smoking cessation. Continue per Dr. Hammond pulmonology. He is on albuterol Symbicort and Singulair Assessment & Plan (12/12/2022 9:43 PM CDT): Stop smoking. Continue per Pulmonary. Continue Symbicort Singulair and albuterol. Continue monitoring low-dose CTs as instructed Assessment & Plan (08/15/2022 6:44 PM CARPENTER LABOR SUPERVISOR): Stop smoking. Continue current plan per Pulmonary Assessment & Plan (08/01/2021 9:34 PM CARPENTER LABOR SUPERVISOR): Continue per Pulmonary Dr. Valdes Assessment & Plan (02/09/2021 8:15 PM CDT): Stop smoking. Continue per Dr. Valdes Assessment & Plan (07/29/2020 7:32 AM CARPENTER LABOR SUPERVISOR): Continue per Pulm Assessment & Plan (03/27/2020 8:00 AM CDT): Stop smoking. He declines starting inhalers or referral to Pulmonary Assessment & Plan (09/26/2019 10:27 PM CARPENTER LABOR SUPERVISOR): This is a significant, separately identifiable problem that was evaluated and managed on the same day as the wellness exam STOP smoking. Continue to monitor as pt isn't interested in inhalers at this point. If notes increased SOB will start Symbicort or Bevespi Lung nodule < 6cm on CT 06/26/2019 Overview (11/24/2020): ----06/2019 LDCT Several 2-3mm nodules, probable benign LungRads 2 --- repeat 06/2020 ----08/02/2020 Repeat 6 months (due 01/2021) Assessment & Plan (02/09/2021 8:16 PM CDT): Low-dose CT is due in January. Will defer to Dr. Valdes to order. If not done by the time he comes back then I will order Assessment & Plan (07/29/2020 7:33 AM CARPENTER LABOR SUPERVISOR): Needs to repeat ---Dr. Valdes has already ordered Assessment & Plan (03/27/2020 8:00 AM CDT): 06/2019 LDCT Several 2-3mm nodules, probable benign LungRADs 2 --- repeat 06/2020 Assessment & Plan (09/26/2019 10:26 PM CARPENTER LABOR SUPERVISOR): 06/2019 LDCT Several 2-3mm nodules, probable benign LungRADs 2 --- repeat 06/2020 Hyperplastic rectal polyp 05/20/2019 Overview (05/20/2019): Colonoscopy 01/29/2012 at [facility]--->2021 Assessment & Plan (05/28/2019 7:33 PM CDT): Recvd colonoscopy and due to repeat in 2021 Hiatal hernia 05/20/2019 Mixed hyperlipidemia 05/20/2019 Assessment & Plan (11/19/2024 11:45 PM CARPENTER LABOR SUPERVISOR): Encouraged patient to follow low fat/low chol diet like the Mediterranean diet. Increase good fats in the diet. Increase exercise. Monitor labs as needed. Continue pravastatin 80 Assessment & Plan (05/20/2024 7:36 PM CDT): Encouraged patient to follow low fat/low chol diet like the Mediterranean diet. Increase good fats in the diet. Increase exercise. Monitor labs as needed. Continue pravastatin 80 Assessment & Plan (11/24/2023 10:34 AM CARPENTER LABOR SUPERVISOR): Encouraged patient to follow low fat/low chol diet like the Mediterranean diet. Increase good fats in the diet. Increase exercise. Monitor labs as needed. Continue pravastatin 80 Assessment & Plan (08/15/2023 5:03 PM CARPENTER LABOR SUPERVISOR): Encouraged patient to follow low fat/low chol diet like the Mediterranean diet. Increase good fats in the diet. Increase exercise. Monitor labs as needed. Continue pravastatin and Zetia Assessment & Plan (04/08/2023 8:47 PM CDT): Encouraged patient to follow low fat/low chol diet like the Mediterranean diet. Increase good fats in the diet. Increase exercise. Monitor labs as needed. Continue pravastatin Zetia Assessment & Plan (12/12/2022 9:42 PM CDT): Encouraged patient to follow low fat/low chol diet like the Mediterranean diet. Increase good fats in the diet. Increase exercise. Monitor labs as needed. Continue pravastatin and Zetia Assessment & Plan (05/09/2022 8:18 PM CDT): Encouraged patient to follow low fat/low chol diet like the Mediterranean diet. Increase good fats in the diet. Increase exercise. Monitor labs as needed. Continue statin Assessment & Plan (01/21/2022 12:00 PM CDT): Encouraged patient to follow low fat/low chol diet like the Mediterranean diet. Increase good fats in the diet. Increase exercise. Monitor labs as needed. Continue pravastatin and Zetia Assessment & Plan (08/01/2021 9:33 PM CARPENTER LABOR SUPERVISOR): Encouraged patient to follow fat/low chol diet like the Mediterranean diet. Increase good fats in the diet. Increase exercise. Monitor labs as needed. Continue pravastatin 80 Assessment & Plan (02/09/2021 8:17 PM CDT): Encouraged patient to follow fat/low chol diet like the Mediterranean diet. Increase good fats in the diet. Increase exercise. Monitor labs as needed. Continue statin Assessment & Plan (07/29/2020 7:34 AM CARPENTER LABOR SUPERVISOR): Encouraged patient to follow fat/low chol diet like the Mediterranean diet. Increase good fats in the diet. Increase exercise. Monitor labs as needed. Assessment & Plan (03/27/2020 8:02 AM CDT): Encouraged patient to continue low fat/low chol diet. Continue exercise. Increase good fats in the diet. Monitor labs as needed. Stable with zetia and pravastatin Assessment & Plan (09/26/2019 7:39 AM CARPENTER LABOR SUPERVISOR): Encouraged patient to continue low fat/low chol diet. Continue exercise. Increase good fats in the diet. Monitor labs as needed. Assessment & Plan (05/28/2019 7:33 PM CDT): Encouraged patient to continue low fat/low chol diet. Continue exercise. Increase good fats in the diet. Monitor labs as needed. Continue the Zetia and pravastatin. Acquired absence of eye 05/20/2019 Overview (05/20/2019): Right Assessment & Plan (03/27/2020 7:59 AM CDT): Continue per Ophthmalogy Assessment & Plan (05/28/2019 7:29 PM CDT): No change Other specified glaucoma 05/20/2019 Legally blind 05/20/2019 Assessment & Plan (05/20/2024 7:35 PM CDT): No change Assessment & Plan (08/15/2023 5:03 PM CARPENTER LABOR SUPERVISOR): Patient is legally blind. Continue with Ophthalmology Assessment & Plan (04/08/2023 8:47 PM CDT): No change Assessment & Plan (03/27/2020 8:02 AM CDT): No change Assessment & Plan (09/26/2019 7:39 AM CARPENTER LABOR SUPERVISOR): No change Assessment & Plan (05/28/2019 7:35 PM CDT): No change Cigarette smoker 05/20/2019 Assessment & Plan (08/11/2023 8:45 AM CARPENTER LABOR SUPERVISOR): Encouraged smoking cessation. Discussed 3 minutes. Reviewed options for assistance with cessation. Reviewed retirement sequela associated with smoking. Pt declines assistance at this time but may contact the office at anytime for further help as they desire. Assessment & Plan (04/08/2023 8:47 PM CDT): Encouraged smoking cessation. Discussed 3 minutes. Reviewed options for assistance with cessation. Reviewed retirement sequela associated with smoking. Pt declines assistance at this time but may contact the office at anytime for further help as they desire. Low-dose CT will be due in May. It is already scheduled Assessment & Plan (12/12/2022 9:42 PM CDT): Encouraged smoking cessation. Discussed 3 minutes. Reviewed options for assistance with cessation. Reviewed meterman sequela associated with smoking. Pt declines assistance at this time but may contact the office at anytime for further help as they desire. Assessment & Plan (08/15/2022 6:44 PM CARPENTER LABOR SUPERVISOR): Encouraged smoking cessation. Discussed 3 minutes. Reviewed options for assistance with cessation. Reviewed retirement sequela associated with smoking. Pt declines assistance at this time but may contact the office at anytime for further help as they desire. Assessment & Plan (05/09/2022 8:19 PM CDT): Encouraged smoking cessation. Discussed 3 minutes. Reviewed options for assistance with cessation. Reviewed meterman sequela associated with smoking. Pt declines assistance at this time but may contact the office at anytime for further help as they desire. Assessment & Plan (08/01/2021 9:33 PM CARPENTER LABOR SUPERVISOR): Encouraged smoking cessation. Discussed 3 minutes. Reviewed options for assistance with cessation. Reviewed meterman sequela associated with smoking. Pt declines assistance at this time but may contact the office at anytime for further help as they desire. Assessment & Plan (05/17/2021 11:41 PM CDT): Encouraged smoking cessation. Discussed 3 minutes. Reviewed options for assistance with cessation. Reviewed meterman sequela associated with smoking. Pt declines assistance at this time but may contact the office at anytime for further help as they desire. Assessment & Plan (03/12/2021 12:31 PM CDT): Encouraged smoking cessation. Discussed 3 minutes. Reviewed options for assistance with cessation. Reviewed meterman sequela associated with smoking. He is slowing down. Offered assistance. May call if decides he wants help Assessment & Plan (07/29/2020 7:34 AM CARPENTER LABOR SUPERVISOR): Encouraged smoking cessation. Discussed 3 minutes. Reviewed options for assistance with cessation. Reviewed retirement sequela associated with smoking. Pt declines assistance at this time but may contact the office at anytime for further help as they desire. Assessment & Plan (03/27/2020 8:02 AM CDT): Encouraged smoking cessation. Discussed 3 minutes. Reviewed options for assistance with cessation. Reviewed meterman sequela associated with smoking. Pt declines assistance at this time but may contact the office at anytime for further help as they desire. Assessment & Plan (09/26/2019 7:39 AM CARPENTER LABOR SUPERVISOR): Encouraged smoking cessation. Discussed 3 minutes. Reviewed options for assistance with cessation. Reviewed retirement sequela associated with smoking. Pt declines assistance at this time but may contact the office at anytime for further help as they desire. Assessment & Plan (07/14/2019 7:05 PM CDT): Encouraged smoking cessation. Discussed 3 minutes. Reviewed options for assistance with cessation. Reviewed retirement sequela associated with smoking. Pt declines assistance at this time but may contact the office at anytime for further help as they desire. Assessment & Plan (05/28/2019 7:41 PM CDT): Encouraged smoking cessation. Discussed approx 3 minutes. Discussed with patient Lung Cancer screening options with the patient. Encouraged LowDose CT Patient is between 55 - 77 yo. Is a current smoker Has a 40+year x 1/2-1ppd Is currently without any signs or symptoms of lung cancer. Is willing to consider curative lung surgery if needed. [id number] Pre-diabetes 05/20/2019 Assessment & Plan (11/19/2024 11:45 PM CARPENTER LABOR SUPERVISOR): Pre-diabetes/hyperglycemia is a precursor to Dm. Stressed importance of working on diet (decrease your simple sugars and one carbohydrate with each meal) and increase you exercise to achieve weight loss and this will help prevent you from progressing to diabetes. Assessment & Plan (05/20/2024 7:36 PM CDT): Pre-diabetes/hyperglycemia is a precursor to Dm. Stressed importance of working on diet (decrease your simple sugars and one carbohydrate with each meal) and increase you exercise to achieve weight loss and this will help prevent you from progressing to diabetes. Assessment & Plan (11/24/2023 10:34 AM CARPENTER LABOR SUPERVISOR): Pre-diabetes/hyperglycemia is a precursor to Dm. Stressed importance of working on diet (decrease your simple sugars and one carbohydrate with each meal) and increase you exercise to achieve weight loss and this will help prevent you from progressing to diabetes. Assessment & Plan (08/15/2023 5:03 PM CARPENTER LABOR SUPERVISOR): Pre-diabetes/hyperglycemia is a precursor to Dm. Stressed importance of working on diet (decrease your simple sugars and one carbohydrate with each meal) and increase you exercise to achieve weight loss and this will help prevent you from progressing to diabetes. Assessment & Plan (04/08/2023 8:47 PM CDT): Pre-diabetes/hyperglycemia is a precursor to Dm. Stressed importance of working on diet (decrease your simple sugars and one carbohydrate with each meal) and increase you exercise to achieve weight loss and this will help prevent you from progressing to diabetes. Assessment & Plan (12/12/2022 9:42 PM CDT): Pre-diabetes/hyperglycemia is a precursor to Dm. Stressed importance of working on diet (decrease your simple sugars and one carbohydrate with each meal) and increase you exercise to achieve weight loss and this will help prevent you from progressing to diabetes. Assessment & Plan (01/21/2022 11:59 AM CDT): Pre-diabetes/hyperglycemia is a precursor to Dm. Stressed importance of working on diet (decrease your simple sugars and one carbohydrate with each meal) and increase you exercise to achieve weight loss and this will help prevent you from progressing to diabetes. Assessment & Plan (08/01/2021 9:33 PM CARPENTER LABOR SUPERVISOR): Pre-diabetes/hyperglycemia is a precursor to Dm. Stressed importance of working on diet (decrease your simple sugars and one carbohydrate with each meal) and increase you exercise to achieve weight loss and this will help prevent you from progressing to diabetes. Assessment & Plan (02/09/2021 8:17 PM CDT): Pre-diabetes/hyperglycemia is a precursor to Dm. Stressed importance of working on diet (decrease your simple sugars and one carbohydrate with each meal) and increase you exercise to achieve weight loss and this will help prevent you from progressing to diabetes. Assessment & Plan (07/29/2020 7:34 AM CARPENTER LABOR SUPERVISOR): Pre-diabetes is a precursor to Dm. Stressed importance of working on diet (decrease your simple sugars and one carbohydrate with each meal) and increase you exercise to achieve weight loss and this will help prevent you from progressing to diabetes. Assessment & Plan (03/27/2020 8:02 AM CDT): Pre-diabetes is a precursor to Dm. Stressed importance of working on diet (decrease your simple sugars and one carbohydrate with each meal) and increase you exercise to achieve weight loss and this will help prevent you from progressing to diabetes. Due for labs Assessment & Plan (09/26/2019 10:27 PM CARPENTER LABOR SUPERVISOR): This is a significant, separately identifiable problem that was evaluated and managed on the same day as the wellness exam Pre-diabetes is a precursor to Dm. Stressed importance of working on diet (decrease your simple sugars and one carbohydrate with each meal) and increase you exercise to achieve weight loss and this will help prevent you from progressing to diabetes. Assessment & Plan (05/28/2019 7:35 PM CDT): Pre-diabetes is a precursor to Dm. Stressed importance of working on diet (decrease your simple sugars and one carbohydrate with each meal) and increase you exercise to achieve weight loss and this will help prevent you from progressing to diabetes. 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 However largely intact size 5 Pruett visual field with generalized decreased retinal sensitivity suggest still good vision potential persists left eye. Tyrel Velez MD 07/31/2016 9:46 AM Normocytic normochromic anemia Resolved Problems Problem Noted Date Diagnosed Date Resolved Date Need for influenza vaccination 06/20/2024 11/19/2024 Assessment & Plan (07/01/2024 6:49 PM CDT): Flu vaccine updated in the office today Medicare annual wellness visit, subsequent 05/20/2024 11/19/2024 Assessment & Plan (05/20/2024 7:37 PM CDT): Encouraged healthy lifestyle, good nutrition and exercise. Encouraged Calcium and Vitamin D and weight bearing exercise for bone health. Reviewed immunizations. Reviewed age appropirate screenings. Medicare Wellness Documentation is completed within the chart Annual physical exam 11/24/2023 Assessment & Plan (11/24/2023 10:35 AM CARPENTER LABOR SUPERVISOR): Encouraged healthy lifestyle, good nutrition and exercise. Encouraged Calcium and Vitamin D and weight bearing exercise for bone health. Reviewed immunizations Reviewed age appropirate screenings. Need for influenza vaccination 08/15/2023 11/24/2023 Assessment & Plan (08/15/2023 5:04 PM CARPENTER LABOR SUPERVISOR): Flu vaccine updated in the office today BMI 22.0-22.9, adult 07/22/2023 Assessment & Plan (08/11/2023 8:12 AM CARPENTER LABOR SUPERVISOR): Weight/BMI is in healthy range. Continue healthy lifestyle to maintain. Assessment & Plan (07/22/2023 8:14 AM CDT): Weight/BMI is in healthy range. Continue healthy lifestyle to maintain. Medicare annual wellness visit, subsequent 04/08/2023 08/15/2023 Assessment & Plan (04/08/2023 8:49 PM CDT): Encouraged healthy lifestyle, good nutrition and exercise. Encouraged Calcium and Vitamin D and weight bearing exercise for bone health. Reviewed immunizations. Reviewed age appropirate screenings. Medicare Wellness Documentation is completed within the chart BMI 23.0-23.9, adult 04/05/2023 023 Assessment & Plan (04/05/2023 9:14 AM CDT): Weight/BMI is in healthy range. Continue healthy lifestyle to maintain. Acute gastroenteritis 02/28/20232023 Annual physical exam 12/12/2022 023 Assessment & Plan (12/12/2022 9:43 PM CDT): Encouraged healthy lifestyle, good nutrition and exercise. Encouraged Calcium and Vitamin D and weight bearing exercise for bone health. Reviewed immunizations Reviewed age appropirate screenings. Prostate cancer screening 12/12/2022 Assessment & Plan (12/12/2022 9:43 PM CDT): Check labs BMI 24.0-24.9, adult 12/01/2022 023 Assessment & Plan (12/01/2022 10:04 AM CDT): Weight/BMI is in healthy range. Continue healthy lifestyle. Need for immunization against influenza 08/15/2022 04/03/2023 Assessment & Plan (08/15/2022 6:45 PM CARPENTER [employer]OR SUPERVISOR): Flu updated in the office today BMI 24.0-24.9, adult 07/23/2022 023 Assessment & Plan (12/01/2022 3:36 PM CDT): Discussed the patient's BMI. The BMI is above average. BMI management plan is completed. BMI Follow-up includes: nutrition counseling, exercise counseling and education provided. Assessment & Plan (07/23/2022 10:32 AM CDT): Weight/BMI is in healthy range. Continue healthy lifestyle to maintain. Body mass index (BMI) of 23.0-23.9 in adult 05/09/2022 07/23/2022 Assessment & Plan (05/09/2022 8:22 PM CDT): Weight/BMI is in healthy range. Continue healthy lifestyle to maintain. Other chest pain 05/02/2022 11/14/2022 Assessment & Plan (05/09/2022 8:21 PM CDT): Patient encouraged to do cardiac workup with possible stress test outpatient. Was referred to an outside information systems security manager. Encouraged to consider seeing a [facility] of cardiologists so all of his providers are in the same system. He is in agreement. Referral made to Dr. Eduardo as he has multiple risk factors. BMI 23.0-23.9, adult 01/21/2022 Assessment & Plan (01/21/2022 11:10 AM CDT): Weight/BMI is in healthy range. Continue healthy lifestyle to maintain. BMI 21.0-21.9, adult 08/01/2021 Assessment & Plan (08/01/2021 7:28 AM CARPENTER LABOR SUPERVISOR): Weight/BMI is in healthy range. Continue healthy lifestyle to maintain. Medicare annual wellness visit, subsequent 08/01/2021 08/15/2022 Assessment & Plan (08/01/2021 9:34 PM CARPENTER LABOR SUPERVISOR): Encouraged healthy lifestyle, good nutrition and exercise. Encouraged Calcium and Vitamin D and weight bearing exercise for bone health. Reviewed immunizations. Reviewed age appropirate screenings. Medicare Wellness Documentation is completed within the chart Fatigue 05/17/2021 05/02/2022 Assessment & Plan (08/01/2021 9:34 PM CARPENTER LABOR SUPERVISOR): Probably multifactorial. Check labs and followup to re-evaluate BMI 21.0-21.9, adult 05/08/2021 Assessment & Plan (05/08/2021 7:58 AM CDT): Weight/BMI is in healthy range. Continue healthy lifestyle to maintain. Pneumonia due to infectious organism 03/12/2021 03/12/2021 Assessment & Plan (03/12/2021 12:30 PM CDT): Improving. Complete the Augmentin Continue Symbicort and prn albuterol Recheck CXR in 2 weeks for resolution. Has followu with pulmonary CAP (community acquired pneumonia) 03/12/2021 08/15/2022 Assessment & Plan (05/17/2021 11:40 PM CDT): Multiple episodes of pneumonia in the last few months. Complete Doxy Continue symbicort and albuterol Stop smoking. Keep followup with Dr. Black on 05/20. Assessment & Plan (03/12/2021 12:32 PM CDT): Complete Augmentin. Continue with Symbicort and p.r.n. albuterol. Recheck chest x-ray in about 2 weeks. He is to follow-up if he has increased symptoms or difficulty breathing. He has follow-up already scheduled with Pulmonary. Stop smoking BMI 21.0-21.9, adult 01/21/2021 024 Assessment & Plan (11/24/2023 10:34 AM CARPENTER LABOR SUPERVISOR): Weight/BMI is in healthy range. Continue healthy lifestyle to maintain. Assessment & Plan (03/12/2021 11:03 AM CDT): Weight/BMI is in healthy range. Continue healthy lifestyle to maintain. Assessment & Plan (01/21/2021 8:04 AM CDT): Weight/BMI is in healthy range. Continue healthy lifestyle to maintain. Annual physical exam 11/24/2020 021 Assessment & Plan (02/09/2021 8:17 PM CDT): Encouraged healthy lifestyle, good nutrition and exercise. Encouraged Calcium and Vitamin D and weight bearing exercise for bone health. Reviewed immunizations Reviewed age appropirate screenings. Other fatigue 07/29/2020 05/02/2022 Assessment & Plan (07/29/2020 7:34 AM CARPENTER LABOR SUPERVISOR): Probably multifactorial. Check labs and followup to re-evaluate Need for immunization against influenza 07/29/2020 11/24/2020 Assessment & Plan (07/29/2020 7:34 AM CARPENTER LABOR SUPERVISOR): Updated in office today BMI 22.0-22.9, adult 03/27/2020 024 Assessment & Plan (05/20/2024 7:37 PM CDT): Weight/BMI is in healthy range. Continue healthy lifestyle to maintain. Assessment & Plan (07/29/2020 7:34 AM CARPENTER LABOR SUPERVISOR): Weight/BMI is in healthy range. Continue healthy lifestyle to maintain. Assessment & Plan (03/27/2020 8:02 AM CDT): Weight/BMI is in healthy range. Continue healthy lifestyle to maintain. Medicare annual wellness visit, subsequent 03/27/2020 07/29/2020 Assessment & Plan (03/27/2020 8:02 AM CDT): Encouraged healthy lifestyle, good nutrition and exercise. Encouraged Calcium and Vitamin D and weight bearing exercise for bone health. Reviewed immunizations. Reviewed age appropirate screenings. Medicare Wellness Documentation is completed within the chart BMI 24.0-24.9, adult 09/26/2019 020 Assessment & Plan (09/26/2019 7:39 AM CARPENTER LABOR SUPERVISOR): Weight/BMI is in healthy range. Continue healthy lifestyle to maintain. Annual physical exam 09/26/2019 020 Assessment & Plan (09/26/2019 7:40 AM CARPENTER LABOR SUPERVISOR): Encouraged healthy lifestyle, good nutrition and exercise. Encouraged Calcium and Vitamin D and weight bearing exercise for bone health. Reviewed immunizations Reviewed age appropirate screenings. Influenza vaccine refused 09/26/2019 Assessment & Plan (09/26/2019 7:40 AM CARPENTER LABOR SUPERVISOR): Encouraged vaccine. Reviewed risks/ benefits. Patient refuses and accepts risks. Esophagitis determined by endoscopy 05/20/2019 05/02/2022 Gastritis 05/20/2019 05/02/2022 Essential (primary) hypertension 05/20/2019 05/20/2024 Assessment & Plan (11/24/2023 10:34 AM CARPENTER LABOR SUPERVISOR): Bp is stable/in acceptable range for any co-morbidities. Encouraged to limit sodium intake and exercise for weight control. Continue losartan 50 Assessment & Plan (08/15/2023 5:04 PM CARPENTER LABOR SUPERVISOR): Bp is stable/in acceptable range for any co-morbidities. Encouraged to limit sodium intake and exercise for weight control. Continue per Dr. Curtis Assessment & Plan (08/11/2023 8:45 AM CARPENTER LABOR SUPERVISOR): Bp is stable/in acceptable range for any co-morbidities. Encouraged to limit sodium intake and exercise for weight control. His machine was calibrated in his reading correctly. Readings are perfect. Continue losartan 50 Assessment & Plan (04/08/2023 8:47 PM CDT): Bp is stable/in acceptable range for any co-morbidities. Encouraged to limit sodium intake and exercise for weight control. Continue losartan Assessment & Plan (12/12/2022 9:42 PM CDT): Bp is stable/in acceptable range for any co-morbidities. Encouraged to limit sodium intake and exercise for weight control. Continue losartan Assessment & Plan (08/15/2022 6:44 PM CARPENTER LABOR SUPERVISOR): Bp is stable/in acceptable range for any co-morbidities. Encouraged to limit sodium intake and exercise for weight control. Assessment & Plan (05/09/2022 8:18 PM CDT): Bp is stable/in acceptable range for any co-morbidities. Encouraged to limit sodium intake and exercise for weight control. Assessment & Plan (01/21/2022 11:59 AM CDT): Bp is stable/in acceptable range for any co-morbidities. Encouraged to limit sodium intake and exercise for weight control. Continue losartan 50 Assessment & Plan (08/01/2021 9:33 PM CARPENTER LABOR SUPERVISOR): Bp is stable/in acceptable range for any co-morbidities. Encouraged to limit sodium intake and exercise for weight control. Continue losartan 50 Assessment & Plan (05/17/2021 11:39 PM CDT): Bp is stable/in acceptable range for any co-morbidities. Encouraged to limit sodium intake and exercise for weight control. Continue losartan Assessment & Plan (03/12/2021 12:28 PM CDT): Bp is stable/in acceptable range for any co-morbidities. Encouraged to limit sodium intake and exercise for weight control. Continue losartan and HCTZ Assessment & Plan (02/09/2021 8:16 PM CDT): Bp is stable/in acceptable range for any co-morbidities. Encouraged to limit sodium intake and exercise for weight control. Continue Losartan/HCTZ Assessment & Plan (07/29/2020 7:33 AM CARPENTER LABOR SUPERVISOR): Bp is stable/in acceptable range for any co-morbidities. Encouraged to limit sodium intake and exercise for weight control. Losartan and HCTZ Assessment & Plan (03/27/2020 8:00 AM CDT): Bp is stable/in acceptable range for any co-morbidities. Encouraged to limit sodium intake and exercise for weight control. Continue losartan/HCTZ Assessment & Plan (09/26/2019 7:38 AM CARPENTER LABOR SUPERVISOR): Bp is stable/in acceptable range for any co-morbidities. Encouraged to limit sodium intake and exercise for weight control. Assessment & Plan (07/14/2019 7:05 PM CDT): Bp is stable/in acceptable range for any co-morbidities. Encouraged to limit sodium intake and exercise for weight control. Assessment & Plan (05/28/2019 7:33 PM CDT): Bp is stable/in acceptable range for any co-morbidities. Encouraged to limit sodium intake and exercise for weight control. Stable with the Losartan and HCTZ Hiccups 05/20/2019 01/21/2022 Assessment & Plan (08/01/2021 9:34 PM CARPENTER LABOR SUPERVISOR): Persistent hiccups. Has consulted with multiple providers and been to the ER. States the ER started him on a new medication but he is unsure of the name. Encouraged him to call the office so we can get his listing updated. Assessment & Plan (05/17/2021 11:41 PM CDT): Was started on chlorpromazine in the ER. Continue with GI, Dr. Staley. Assessment & Plan (03/12/2021 12:28 PM CDT): Has had extensive workup with Neuro, ENT and now back to GI. Await recommendations. Assessment & Plan (02/09/2021 8:16 PM CDT): Persistent hiccups. Continue per Dr. Stokes. He is still on omeprazole Assessment & Plan (07/29/2020 7:32 AM CARPENTER LABOR SUPERVISOR): Continue per ENT/Pulm. He is responding to BID omeprazole. Will monitor Assessment & Plan (03/27/2020 7:59 AM CDT): Dr. Stokes started him on Pantoprazole. He hasn't noted much difference. Needs to followup to complete workup. Encouraged patient to call and make appointment. Assessment & Plan (09/26/2019 10:26 PM CARPENTER LABOR SUPERVISOR): This is a significant, separately identifiable problem that was evaluated and managed on the same day as the wellness exam Less frequent than in the past. Continue the PPI and monitor Rx sent to pharmacy. Assessment & Plan (08/24/2019 9:04 AM CARPENTER LABOR SUPERVISOR): Improving with the PPI. Continue PPI and monitor Assessment & Plan (07/14/2019 7:06 PM CDT): Has had hiccups on and off since he was a teen Unsure of trigger all these years. Currently ? Reflux cause---Seems like there is a connection with solid food. Will start PPI. If no change, will consider referral to GI. Had acutely used Flexeril in the past but isn't working now. May also consider gabapentin if persists. Has just had labs and LDCT with benign findings to repeat as screening in 06/2020 Assessment & Plan (05/28/2019 7:32 PM CDT): Stable with flexeril for control of the hiccups. Influenza vaccine refused 05/20/2019 Overview (05/20/2019): 2018 Assessment & Plan (08/24/2019 9:04 AM CARPENTER LABOR SUPERVISOR): Encouraged vaccine. Reviewed risks/ benefits. Patient refuses and accepts risks. Assessment & Plan (07/14/2019 7:05 PM CDT): Encouraged vaccine. Reviewed risks/ benefits. Patient refuses and accepts risks. Assessment & Plan (05/28/2019 7:34 PM CDT): Encouraged again Hypovolemia dehydration 030 02/2024 Leukocytosis 11/24/2023 Hypercholesteremia 3 Assessment & Plan (04/08/2023 8:47 PM CDT): Encouraged patient to follow low fat/low chol diet like the Mediterranean diet. Increase good fats in the diet. Increase exercise. Monitor labs as needed. Continue pravastatin and Zetia Gastroesophageal reflux dise ase without esophagitis 04/03/2023 Encounters Date Type Department Care Team Description 12/06/2024 9:30 AM CDT Office Visit [facility] Pulmonology [address] [place] [phone] Tasia Hoffman MD Chronic obstructive pulmonary disease, unspecified COPD type (HCC) (Primary Dx); Mild persistent asthma without complication; Non-seasonal allergic rhinitis due to other allergic trigger; Nicotine dependence, cigarettes, in remission 10/30/2024 9:00 AM CARPENTER LABOR SUPERVISOR Office Visit [facility] Family Medicine [address] [place] [phone] Nuris Berger PA Annual physical exam (Primary Dx); Vitamin D deficiency; Mixed hyperlipidemia; Pre-diabetes; Chronic obstructive pulmonary disease, unspecified COPD type (HCC); Gastroesophageal reflux disease with esophagitis without hemorrhage; Chronic hiccups; BMI 23.0-23.9, adult 10/03/2024 8:56 AM CARPENTER LABOR SUPERVISOR - 10/03/2024 11:59 PM CARPENTER LABOR SUPERVISOR [facility] [address] [place] [address] Pulmonary nodules Discharge Disposition: Discharge to home or self care from Last 3 Months Immunizations Immunization Administration Dates Next Due Influenza, Quadrivalent, Spl it, Preservative Free, Intramuscular 07/22/2023,07/23/2022,08/01/2021,07/29 Influenza, Trivalent, Preser vative Free, Intramuscular 06/20/2024 Influenza, Unspecified 09/20/2024(Deferr ed: Patient Refused),10/21/2021(Deferred: Patient Refused),08/24/2019(Deferred: Patient Refused),07/14/2019(Deferred: Patient Refused),07/14/2019(Deferred: Patient Refused) Pfizer SARS-CoV-2 Monovalent Vaccination (12+ Yrs) PURPLE 02/09/2021,01/05/2021 Surgical History Surgery Date Site/Laterality Comments CATARACT EXTRACTION ENUCLEATION EYE SURGERY COLONOSCOPY ESOPHAGOGASTRODUODENOSCOPY Medical History Medical History Date Comments Hypertension Hyperlipidemia Glaucoma GERD (gastroesophageal reflux disease) Emphysema of lung (HCC) Family History Medical History Relation Name Comments Blindness Father Heart attack Father PR Heart disease Father No Known Problems Mother Relation Name Status Comments Father Mother Social History Tobacco Use Types Packs/Day Years Used Date Smoking Tobacco: Former Cigarettes 0.8 40 0 09/1981 - 09/2021 Smokeless Tobacco: Never Tobacco Cessation:Counseling Given: Not Answered Alcohol Use Standard Drinks/Week Comments Yes 0 (1 standard drink = 0.6 oz pur e alcohol) social [facility] Utilities Answer Date Recorded In the past 12 months has th e [email or web address], gas, oil, or water [employer] threatened to shut off services in your home? No 12/03/2023 Social Connection and Isolat ion Panel [NHANES] Answer Date Recorded In a typical week, how many times do you talk on the phone with family, friends, or neighbors? More than three times a week 12/03/2023 How often do you get togethe r with friends or relatives? More than three times a week 12/03/2023 How often do you attend chur ch or christianity services? Patient declined 12/03/2023 Do you belong to any clubs o r organizations such as judaism groups, unions, fraternal or athletic groups, or school groups? Patient declined 12/03/2023 How often do you attend meet ings of the clubs or organizations you belong to? Patient declined 12/03/2023 Are you , , di vorced, , never , or living with a partner? 12/03/2023 AUDIT-C Answer Date Recorded Q1: How often do you have a drink containing alc ohol? 2-3 times a week 10/30/2024 Q2: How many drinks containi ng alcohol do you have on a typical day when you are drinking? 3 or 4 10/30/2024 Q3: How often do you have si x or more drinks on one occasion? Never 10/30/2024 Overall Financial Resource Strain (CARDIA) Answe r Date Recorded How hard is it for you to pa y for the very basics like food, housing, medical care, and heating? Not hard at all 12/03/2023 PHQ-2 Answer Date Recorded PHQ-2 Total Score (If total score is 3 or more points, staff should administer the PHQ-9) 0 10/30/2024 Hunger Vital Sign Answer Date Recorded Within the past 12 months, y ou worried that your food would run out before you got the money to buy more. Never true 12/03/19 24 Within the past 12 months, t he food you bought just didn't last and you didn't have money to get more. Never true 12/03/2023 PRAPARE - Transportation Answer Date Re corded In the past 12 months, has l ack of transportation kept you from medical appointments or from getting medications? No 11/18 In the past 12 months, has l ack of transportation kept you from meetings, work, or from getting things needed for daily living? No 12/03/2023 Housing Stability Vital Sign Answer Omar e Recorded In the last 12 months, was t here a time when you were not able to pay the mortgage or rent on time? No 12/03/2023 In the last 12 months, how many places have you lived? 1 12/03/2023 In the last 12 months, was t here a time when you did not have a steady place to sleep or slept in a longterm (including now)? No 12/03/2023 Personal Safety Answer Date Recorded Have you ever been in or are you currently in a harmful physical or emotional relationship or is someone making you feel afraid or unsafe? 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 Gender Identity Not on file Sexual Orientation Not on file Occupation Industry Job Start Date Job End Date Disabled Not on file Not on file Not on file Obstetrics History Last Filed Vital Signs Vital Sign Reading Time Taken Comments Blood Pressure 138/75 12/06/2024 9:32 AM CDT Pulse 65 12/06/2024 9:32 AM CDT Temperature 37 C (98.6 F) 12/06/2024 9:32 AM CDT Respiratory Rate 18 12/06/2024 9:32 AM CDT Oxygen Saturation 96% 12/06/2024 9:32 AM CDT Inhaled Oxygen Concentration - - Weight 73.5 kg (162 lb) 12/06/2024 9:32 AM CDT Height 172.7 cm (5' 8 ) 12/06/2024 9:32 AM CDT Body Mass Index 24.63 12/06/2024 9:32 AM CDT Plan of Treatment Health Maintenance Due Date Last Done Comments DTaP/Tdap/Td Vaccine (1 - Tdap) 1972 Hepatitis B Screening 1979 Pneumococcal vaccine <65 (1 of 2 - PCV) 1980 Zoster Vaccine (1 of 2) 2011 Covid-19 Vaccine (3 - 2023-2 5 season) 2024 02/09/2021, 01/05/2021 Prostate Cancer Screening-PSA 12/16/2024 12/16/2022, 10/19/2018 Lung Cancer Screening 10/04/2025 10/03/2024 , 06/16/2024, 06/14/2023, Additional history exists Depression Screening 10/30/2025 10/30/2024, 06/20/2024, 05/09/2024, Additional history exists Regular Well Visit/Exam 18-64 10/30/2025, 05/09/2024, 11/24/2023, Additional history exists Colon Cancer Screening-Colonoscopy 07/14/2026 07/14/2021, 01/29/2012 Colon Cancer Screening-CT Colonography Discontinued 07/14/2021, 01/29/2012 Colon Cancer Screening-DNA Stool Discontinued 07/14/20, 01/29/2012 Colon Cancer Screening-FIT Discontinued 07/14/2021, Colon Cancer Screening-Sigmoidoscopy Discontinued 07/14/2021, 01/29/2012 Hepatitis C Screening Completed 05/03/2022 Influenza Vaccine Completed 06/20/2024, , 07/23/2022, Additional history exists Procedures Procedure Name Priority Date/Time Associated Diagnosis Comments TSH Routine 10/03/2024 10:42 AM CARPENTER LABOR SUPERVISOR Fatigue, unspecified type LIPID PANEL Routine 10/03/2024 10:42 AM CARPENTER LABOR SUPERVISOR Mixed hyperlipidemia HEMOGLOBIN A1C Routine 10/03/2024 10:42 AM CARPENTER LABOR SUPERVISOR Pre-diabetes COMPREHENSIVE METABOLIC PANEL Routine 10/03/2024 10:42 AM CARPENTER LABOR SUPERVISOR Hyponatremia CBC WITH AUTO DIFFERENTIAL Routine 10/03/2024 10:42 AM CARPENTER LABOR SUPERVISOR Fatigue, unspecified type CT CHEST WO CONTRAST F/U LUNG SCREEN PROTOCOL Schedule Routine, Read Routine (OP Routine) 10/03/2024 9:25 AM CARPENTER LABOR SUPERVISOR Pulmonary nodules PSA SCREEN Routine 12/16/2022 12:39 PM CDT Prostate cancer screening HEPATITIS PANEL, ACUTE Routine 05/03/2022 5:40 AM CDT HM COLONOSCOPY Routine 07/14/2021 from Last 3 Months or Most Recently Relevant to Health Maintenance Results * (ABNORMAL) CBC with auto differential (10/03/2024 10:42 AM CARPENTER LABOR SUPERVISOR) WBC 7.4 3.8 - 10.8 Thousand/u L [facility] RBC, POC 4.13(L) 4.20 - 5.80 Million/uL [facility] Hgb 12.0(L) 13.2 - 17.1 g/dL [facility] Hct 38.4(L) 38.5 - 50.0 % [facility] MCV 93.0 80.0 - 100.0 fL [facility] MCH 29.1 27.0 - 33.0 pg [facility] MCHC 31.3(L) 32.0 - 36.0 g/dL [facility] Comment: For adults, a slight decrease in the calculated MCHC value (in the range of 30 to 32 g/dL) is most likely not clinically significant; however, it should be interpreted with caution in correlation with other red cell parameters and the patient's clinical condition. Rdw 12.7 11.0 - 15.0 % [facility] Platelets 235 140 - 400 Thousand/u L [facility] MPV 12.3 7.5 - 12.5 fL [facility] Neutrophils, abs 5,069 1,500 - 7,800 cells/uL [facility] Lymphocytes, abs 1,561 850 - 3,900 cells/uL [facility] Monocyte abs 370 200 - 950 cells/uL [facility] Eosinophils, abs 340 15 - 500 cells/uL [facility] Basophils, abs 59 0 - 200 cells/uL [facility] Neutrophils 68.5 % [facility] Lymphocyte pct 21.1 % [facility] Monocytes 5.0 % [facility] Eosinophils 4.6 % [facility] Basophils 0.8 % [facility] Blood 10/03/2024 10:4 2 AM CARPENTER LABOR SUPERVISOR 10/03/2024 10:49 AM CARPENTER LABOR SUPERVISOR Narrative [facility] - 10/03/2024 11:53 PM CARPENTER LABOR SUPERVISOR FASTING:YES FASTING: YES Result Jessica ROBLES LAB BLOOD ORDERABLES Final Result Performing Organization Address [facility] de Phone Number [facility] [address] [place] [address] * TSH (10/03/2024 10:42 AM CARPENTER LABOR SUPERVISOR) Pathologist [facility] [place] TSH 1.29 0.40 - 4.50 mIU/L [facility] Blood 10/03/2024 10:4 2 AM CARPENTER LABOR SUPERVISOR 10/03/2024 10:49 AM CARPENTER LABOR SUPERVISOR Narrative [facility] - 10/03/2024 11:53 PM CARPENTER LABOR SUPERVISOR FASTING:YES FASTING: YES Result Jessica ROBLES LAB BLOOD ORDERABLES Final Result Performing Organization Address [facility] Phone Number [facility] [address] [place] [address] * (ABNORMAL) Hemoglobin A1c (10/03/2024 10:42 AM CARPENTER LABOR SUPERVISOR) Pathologist [facility] [place] Hgb A1C 5.7(H) <5.7 % of total Hgb [facility] Comment: For someone without known diabetes, a hemoglobin A1c value between 5.7% and 6.4% is consistent with prediabetes and should be confirmed with a follow-up test. For someone with known diabetes, a value <7% indicates that their diabetes is well controlled. A1c targets should be individualized based on duration of diabetes, age, comorbid conditions, and other considerations. This assay result is consistent with an increased risk of diabetes. Currently, no consensus exists regarding use of hemoglobin A1c for diagnosis of diabetes for children. Blood 10/03/2024 10:4 2 AM CARPENTER LABOR SUPERVISOR 10/03/2024 10:49 AM CARPENTER LABOR SUPERVISOR Narrative [facility] - 10/03/2024 11:53 PM CARPENTER LABOR SUPERVISOR FASTING:YES FASTING: YES Result Jessica ROBLES LAB BLOOD ORDERABLES Final Result Performing Organization Address [facility]/ZIP Co de Phone Number DMITRI [facility] [address] [place] [address] * Lipid panel (10/03/2024 10:42 AM CARPENTER LABOR SUPERVISOR) Pathologist [facility] [place] Cholesterol 152 <200 mg/dL [facility] HDL 52 > OR = 40 mg/dL [facility] Triglycerides 72 <150 mg/dL [facility] LDL 84 mg/dL (calc) [facility] Comment: Reference range: <100 Desirable range <100 mg/dL for primary prevention; <70 mg/dL for patients with CHD or diabetic patients with > or = 2 CHD risk factors. LDL-C is now calculated using the Jacob calculation, which is a validated novel method providing better accuracy than the Friedewald equation in the estimation of LDL-C. Adal BERRIOS et al. NICOLE. 2013;310(19): 9909-0054 (http://education.Abcam/faq/SIV920) Chol/HDL ratio 2.9 <5.0 (calc) D[facility]ri [facility] Non-HDL, (LDL+VLDL) 100 <130 mg/dL (calc) [facility] Comment: For patients with diabetes plus 1 major ASCVD risk factor, treating to a non-HDL-C goal of <100 mg/dL (LDL-C of <70 mg/dL) is considered a therapeutic option. Blood 10/03/2024 10:4 2 AM CARPENTER LABOR SUPERVISOR 10/03/2024 10:49 AM CARPENTER LABOR SUPERVISOR Narrative [facility] - 10/03/2024 11:53 PM CARPENTER LABOR SUPERVISOR FASTING:YES FASTING: YES Nuris ROBLES LAB BLOOD ORDERABLES Final Result Performing Organization Address City/[facility]/ZIP Co de Phone Number DMITRI [facility] [facility] [address] [place] [address] * (ABNORMAL) Comprehensive metabolic panel (10/03/2024 10:42 AM CARPENTER LABOR SUPERVISOR) Pathologist [facility] [place] Glucose 84 65 - 99 mg/dL [facility] [employer] [facility] Comment: Fasting reference interval BUN 12 7 - 25 mg/dL Dmitri [facility] [employer] [facility] Creatinine 0.94 0.70 - 1.35 mg/dL Dmitri [facility] eGFR 92 > OR = 60 mL/min/1.7 3m2 D[facility]ri [facility] BUN/creat ratio SEE NOTE: 6 - 22 (calc) Dmitri [facility] Comment: Not Reported: BUN and Creatinine are within reference range. Sodium 140 135 - 146 mmol/L [facility] Potassium, pl 5.0 3.5 - 5.3 mmol/L [facility] Chloride 103 98 - 110 mmol/L [facility] CO2 30 20 - 32 mmol/L [facility] Calcium 9.8 8.6 - 10.3 mg/dL [facility]ri [facility] Protein, sr 6.6 6.1 - 8.1 g/dL [facility]ri [facility] Albumin 4.2 3.6 - 5.1 g/dL [facility] GLOBULIN 2.4 1.9 - 3.7 g/dL (calc) Dmitri [facility] Alb/glob ratio 1.8 1.0 - 2.5 (calc) [facility] Bilirubin, total 0.4 0.2 - 1.2 mg/dL [facility] Alk phos 53 35 - 144 U/L [facility] AST 8(L) 10 - 35 U/L D[facility]ri [facility] ALT (SGPT) 6(L) 9 - 46 U/L [facility]ri [facility] Blood 10/03/2024 10:4 2 AM CARPENTER LABOR SUPERVISOR 10/03/2024 10:49 AM CARPENTER LABOR SUPERVISOR Narrative [facility] - 10/03/2024 11:53 PM CARPENTER LABOR SUPERVISOR FASTING:YES FASTING: YES us Nuris ROBLES LAB BLOOD ORDERABLES Final Result DM[facility]ano[facility] [address] [place] [address] * CT Chest WO Contrast F/U Lung Screen Protocol (10/03/2024 9:25 AM CARPENTER LABOR SUPERVISOR) Anatomical Region Laterality Modality Chest N/A Computed Tomogra phy 10/03/2024 7:11 PM CARPENTER LABOR SUPERVISOR Narrative 10/03/2024 7:17 PM CARPENTER LABOR SUPERVISOR EXAM DESCRIPTION: CT CHEST WO CONTRAST F/U LUNG SCREEN PROTOCOL REASON FOR STUDY: Screening CT of the chest in a former smoker with a 20 pack year smoking history. Additional history: None. TECHNIQUE: Low dose CT scan of the chest was performed without intravenous contrast using helical scanning technique. The exam extends from the lung apices through the lung bases. Automatic exposure control was used as a dose optimization technique. NOTE: This study was performed for the specific purposes of lung cancer screening and is not an alternative to diagnostic chest CT. RADIATION DOSE: CT dose index volume (CTDIvol) = 1.48 mGy COMPARISON: 06/16/2024 FINDINGS: SMOKING RELATED LUNG DISEASE: Mild centrilobular emphysema. LUNG NODULES: On image 64, there is a stable 3 mm noncalcified nodule in the right upper lobe. Previously identified nodules within the left lung 06/16/2024 are no longer visualized. CORONARY ARTERY CALCIFICATION: Present OTHER: Stable focal fibrosis and pleural-based calcification within the left lower lobe. Small hiatal hernia. IMPRESSION: Stable 3 mm noncalcified nodule right upper lobe compared with 06/16/2024. No new pulmonary nodules identified. Mild centrilobular emphysema. Coronary artery CALCIFICATION. Small hiatal hernia. Lung-RADS category 2: Benign appearance or behavior. Recommendation: Low dose Screening CT of chest in 12 months. THIS IS AN ELECTRONICALLY VERIFIED FINAL REPORT 10/03/2024 7:17 PM - Electronically signed by Estuardo Ortiz M.D. KT T: Report ID: [id number] Reading Location: [place] [address] us Tasia Hoffman MD IM CT PROCEDURES Final Resul t * PSA screen (12/16/2022 12:39 PM CDT) PSA-Total 0.97 <=5.40 ng/mL [facility] Comment: Interpretive Data AGE SEX REFERENCE INTERVAL 0 minutes-150 years Female None 0 minutes-49 years Male None 50-59 years Male 0-3.90 60-69 years Male 0-5.40 70-79 years Male 0-6.20 80-150 years Male 0-6.20 The Deniz PSA Total assay procedure was used. Results from different manufacturers or methods may not be comparable. Serial testing should be performed using the same method. Current interpretive data last revised 22. Blood 12/16/2022 12:3 9 PM CDT 12/16/2022 12:46 PM CDT Nuris ROBLES LAB BLOOD ORDERABLES Final Result Performing Organization Address [facility]/ZIP Co de Phone Number [address] [place] [address] * Hepatitis panel, acute (05/03/2022 5:40 AM CDT) Hep A IgM Nonreactive Nonreactive [facility] Comment: Interpretive Data: If Hep A IgM Ab is reported as Equivocal, a new sample should be drawn in two weeks for testing. Current interpretive data was last revised on 19. Hep B core IgM Nonreactive Nonreactive [facility] Comment: Interpretive Data If HepB Core IgM Ab is reported as Equivocal, a new sample should be drawn in two weeks for testing. Current interpretive data was last revised on 19. Hep C Ab Nonreactive Nonreactive [facility] Comment: Interpretive Data Nonreactive: Antibodies to HCV not detected. Does NOT exclude the possibility of recent exposure to HCV. Equivocal: Equivocal for HCV antibodies. Supplemental molecular testing will be automatically performed to determine infection status in accordance with current CDC screening recommendations. Reactive: Positive for HCV antibodies. This may represent current or past HCV infection. Supplemental molecular testing will be automatically performed to determine current infection status in accordance with current CDC screening recommendations. Interpretive data was last revised on 2019. HepBsAg Nonreactive Nonreactive [facility] Blood 05/03/2022 5:40 AM CDT 05/03/2022 6:36 AM CDT Pamela Gongora DO LAB MICROBIOLOGY - GENERAL OR DERABLES Final Result Performing Organization Address City/[facility]/ZIP Co de Phone Number [address] [place] [address] * (ABNORMAL) HM COLONOSCOPY (07/14/2021) Jame Mg MD HEALTH MAINTENANCE Edited Result - Final from Last 3 Months or Most Recently Relevant to Health Maintenance Insurance AET MEDICARE GOLD Advance Directives For more information, please contact: [phone] * Full Code (Latest Code Status on File) Date Activated Date Inactivated Comments 12/02/2023 10:06 PM 12/03/2023 10:40 PM * Full Code Date Activated Date Inactivated Comments 08/01/2023 2:34 AM 08/02/2023 8:21 PM * Full Code Date Activated Date Inactivated Comments 02/28/2023 2:09 PM 03/01/2023 10:23 PM * Full Code Date Activated Date Inactivated Comments 02/28/2023 11:36 AM 02/28/2023 2:09 PM * Full Code Date Activated Date Inactivated Comments 11/14/2022 10:34 PM 11/16/2022 9:56 PM Care Teams Rubber Goods Inspector Relationship Specialty Start Date End Date Nuris Berger PA [address] [facility] [address] [place] [address] PCP - General Internal Medicine 12/28/18 Jonatan Stokes MD [address] [place] [address] Consulting Physician Otolaryngology 03/27/20 Irma Bajwa MD [address] [place] [address] Consulting Physician Neurology 05/07/22
--- OUTSIDE RECORDS SUMMARY | 2024-12-21 15:18 | XMS_ITS | Clinical Summary ---
Author Organization [facility] Address [facility] [place] [address] Care Team Providers Care Flaker Tender Name Role Phone Nuris Berger Primary Care Provider [phone] Allergies No known active allergies Medications albuterol sulfate HFA 108 (90 Base) MCG/ACT inhaler Inhale 2 puffs into the lungs. 1 Active brimonidine (ALPHAGAN P) 0.1 % Solution Alphagan P 0.1 % eye drops Active brinzolamide 1 % ophthalmic suspension 1 % 2 (two) times daily. Active budesonide-form oterol 160-4.5 MCG/ACT inhaler Inhale 2 puffs into the lungs 2 (two) times daily. Active chlorproMAZINE 25 MG tablet TAKE 1 TABLET BY MOUTH FOUR TIMES DAILY NEEDED FOR HICCUPS 1 Active vitamin D3, cholecalciferol , 25 MCG (1000 UT) capsule 1,000 Units daily. Active Cyanocobalamin 100 MCG Tab Take 1 tablet by mouth daily. Active dexamethasone 0.1 % ophthalmic solution 1 Active dorzolamide 2 % ophthalmic solution dorzolamide 2 % eye drops Active ezetimibe (ZETIA) 10 MG tablet Zetia 10 mg tablet TAKE 1 TABLET BY MOUTH DAILY 1 Active doxycycline hyclate 100 MG capsule Take 100 mg by mouth daily. 1 Active fluticasone propionate 50 MCG/ACT nasal spray fluticasone propionate 50 mcg/actuation nasal spray,suspension Active hydroCHLOROthia zide 12.5 MG capsule 1 Active latanoprost 0.005 % ophthalmic solution latanoprost 0.005 % eye drops Active losartan 50 MG tablet Take 50 mg by mouth daily. 1 Active pantoprazole EC 40 MG tablet Take 40 mg by mouth 2 (two) times daily. 1 Active pravastatin 80 MG tablet pravastatin 80 mg tablet TAKE 1 TABLET BY MOUTH DAILY WITH SUPPER 1 Active timolol 0.5 % (DAILY) ophthalmic solution 1 Active cetirizine 10 MG tablet Take 10 mg by mouth daily. 1 Active montelukast 10 MG tablet 1 Active Immunizations Name Administration Dates Next Due Influenza (Generic) 07/29/2020 Influenza Adult (Generic) 08/01/2021,07/29/2020 Social History Tobacco Use Types Packs/Day Years Used Date Smoking Tobacco: Every Day Smokeless Tobacco: Never Tobacco Cessation:Ready to Q uit: No; Counseling Given: Yes Sex and Gender Information Value Date Recorded Sex Assigned at Not on file Legal Sex Male 8:10 PM CDT Gender Identity Not on file Sexual Orientation Not on file Last Filed Vital Signs Vital Sign Reading Time Taken Comments Blood Pressure 120/62 09/04/2021 8:52 AM HEEL SLICKER Pulse 82 09/04/2021 8:52 AM HEEL SLICKER Temperature 36.3 C (97.4 F) 09/04/2021 8:52 AM HEEL SLICKER Respiratory Rate 16 09/04/2021 8:52 AM HEEL SLICKER Oxygen Saturation 97% 09/04/2021 8:52 AM HEEL SLICKER Inhaled Oxygen Concentration - - Weight 64.4 kg (142 lb) 09/04/2021 8:52 AM HEEL SLICKER Height 172.7 cm (5' 8 ) 09/04/2021 8:52 AM HEEL SLICKER Body Mass Index 21.59 09/04/2021 8:52 AM HEEL SLICKER Plan of Treatment Health Maintenance Due Date Last Done Comments Colorectal Cancer Screening Colonoscopy (10 Years) 1961 Annual Physical 1964 Pneumococcal Vaccine: Pediatrics (0 to 5 Years) and At-Risk Patients (6 to 64 Years) (1 of 2 - PCV) 1967 Hepatitis C 1979 DTaP, Tdap and Td Vaccines ( 1 - Tdap) 1980 Zoster Vaccines (1 of 2) 2011 COVID-19 Vaccine (3 - 2023-2 5 season) 2024 02/09/2021, 01/05/2021 Influenza Adult (#1) 2024 08/01/2021, 07/29/2020, 07/29/2020 RSV Immunization or 60+ Years (1 - 1-dose 75+ series) 2036 Meningococcal B Vaccine Aged Out No l onger eligible based on patient's age to complete this topic Meningococcal Vaccine Aged Out No con brittni eligible based on patient's age to complete this topic RSV Immunizations Under 20 Months Aged Out No longer eligible b ased on patient's age to complete this topic Insurance [employer] Care Teams Flaker Tender Relationship Specialty Start Date End Date Nuris Berger PA [address] [place] [address] PCP - General PHYSICIAN NAIL ARTIST 06/09/21
--- OUTSIDE RECORDS SUMMARY | 2024-12-21 15:18 | XMS_ITS | Referral Summary ---
Author Organization [facility] [address] [facility] Address [address] [place] [address] Care Team Providers Care Loan Closer Name Role Phone Nuris Berger Primary Care Provider [phone] Jonatan Stokes MD Unavailable [phone] Irma Bajwa MD Unavailable [phone] Encounters Date Type Department Care Team Description 12/06/2024 9:30 AM CDT Office Visit [facility] Pulmonology [address] [place] [address] Tasia Hoffman MD Chronic obstructive pulmonary disease, unspecified COPD type (HCC) (Primary Dx); Mild persistent asthma without complication; Non-seasonal allergic rhinitis due to other allergic trigger; Nicotine dependence, cigarettes, in remission 10/30/2024 9:00 AM DIRECTOR EHS Office Visit [facility] Family Medicine [address] [place] [address] Nuris Berger PA Annual physical exam (Primary Dx); Vitamin D deficiency; Mixed hyperlipidemia; Pre-diabetes; Chronic obstructive pulmonary disease, unspecified COPD type (HCC); Gastroesophageal reflux disease with esophagitis without hemorrhage; Chronic hiccups; BMI 23.0-23.9, adult 10/03/2024 8:56 AM DIRECTOR EHS - 10/03/2024 11:59 PM DIRECTOR EHS Hospital Encounter [facility] [address] [place] [address] Pulmonary nodules Discharge Disposition: Discharge to home or self care from Last 3 Months Allergies Active Allergy Reactions Criticality Noted Date [...] 11/19/2024 Assessment & Plan (11/19/2024 11:45 PM DIRECTOR EHS): Encouraged healthy lifestyle, good nutrition and exercise. Encouraged Calcium and Vitamin D and weight bearing exercise for bone health. Reviewed immunizations Reviewed age appropirate screenings. BMI 23.0-23.9, adult 06/20/2024 Assessment & Plan (10/30/2024 8:57 AM DIRECTOR EHS): Weight/BMI is in healthy range. Continue healthy lifestyle to maintain. Assessment & Plan (06/20/2024 7:44 AM CDT): Weight/BMI is in healthy range. Continue healthy lifestyle to maintain. Vitamin D deficiency 11/24/2023 Assessment & Plan (11/19/2024 11:45 PM DIRECTOR EHS): Supplement Assessment & Plan (05/20/2024 7:36 PM CDT): Supplement Fatigue 12/12/2022 Assessment & Plan (05/20/2024 7:37 PM CDT): Probably multifactorial. Check labs and followup to re-evaluate Assessment & Plan (11/24/2023 10:35 AM DIRECTOR EHS): Probably multifactorial. Check labs and followup to [...] 01/16/2022 Assessment & Plan (11/19/2024 11:44 PM DIRECTOR EHS): Chronic hiccups for 5+ years Has been [...] to the ER. ER recommended referral to [facility] but patient states he can't go to [...] weeks Assessment & Plan (11/24/2023 10:34 AM DIRECTOR EHS): Patient has persistent chronic hiccups that come [...] monitor Assessment & Plan (08/15/2023 5:01 PM DIRECTOR EHS): Chronic hiccups for years. Has tried multiple interventions along with multiple workups from specialists including Neurology pulmonology and GI. Continue current regimen. Stressed importance of limiting water intake when he has the hiccups spells as this has been leading to hyponatremia requiring hospitalization. Assessment & Plan (08/11/2023 8:45 AM DIRECTOR EHS): Patient with chronic hiccups. Have had difficulty [...] levels. Assessment & Plan (08/15/2022 6:45 PM DIRECTOR EHS): Patient has consulted with most multiple specialists [...] hiccups. Assessment & Plan (08/15/2023 5:02 PM DIRECTOR EHS): Chronic hiccups for years. Has tried multiple interventions along with multiple workups from specialists including Neurology pulmonology and GI. Continue current regimen. Stressed importance of limiting water intake when he has the hiccups spells as this has been leading to hyponatremia requiring hospitalization. Assessment & Plan (08/11/2023 8:46 AM DIRECTOR EHS): Hyponatremia secondary to water intake with chronic [...] 07/14/2019 Assessment & Plan (11/19/2024 11:44 PM DIRECTOR EHS): Continue PPI p.r.n. Assessment & Plan (05/20/2024 7:35 PM CDT): Continue pantoprazole p.r.n. Assessment & Plan (11/24/2023 10:33 AM DIRECTOR EHS): Continue pantoprazole p.r.n. Assessment & Plan (04/08/2023 8:48 PM CDT): Continue PPI p.r.n. Assessment & Plan (12/12/2022 9:43 PM CDT): Insert PPI Assessment & Plan (08/15/2022 6:45 PM DIRECTOR EHS): Continue PPI prn Assessment & Plan (02/09/2021 8:17 PM CDT): Continue PPI Assessment & Plan (07/29/2020 7:33 AM DIRECTOR EHS): Continue PPI Assessment & Plan (03/27/2020 8:01 AM CDT): Dr. Stokes changed him from omeprazole to Pantoprazole for the hiccups. Pt hasn't noted any difference in GERD sxs (still well controlled) or hiccups. Assessment & Plan (09/26/2019 7:38 AM DIRECTOR EHS): Continue PPI Assessment & Plan (07/14/2019 8:46 AM CDT): Discussed GERD at length including anatomy, behavioral changes (raise HOB, meal timings), dietary changes and medication options. Reviewed risks, benefits alternatives, side effects and proper use. Followup if sxs worsen or has hematochezia or hematemeis. Start PPI Chronic obstructive pulmonary disease 06/26/2019 Overview (06/26/2019): Noted on 06/2019 LDCT Assessment & Plan (11/19/2024 11:44 PM DIRECTOR EHS): Patient with allergies and COPD. Continue Singulair albuterol and Symbicort. Follows with Dr. Valdes. Assessment & Plan (05/20/2024 7:35 PM CDT): Continue per Dr. Valdes. Continue with his Symbicort and albuterol inhalers. Low-dose CT will be scheduled for June 16, 2024. Assessment & Plan (11/24/2023 10:33 AM DIRECTOR EHS): COPD. Continue per Dr. Hammond his environmental project manager Continue Symbicort Singulair and albuterol p.r.n. Assessment & Plan (04/08/2023 8:48 PM CDT): Encouraged smoking cessation. Continue per Dr. Hammond pulmonology. He is on albuterol Symbicort and Singulair Assessment & Plan (12/12/2022 9:43 PM CDT): Stop smoking. Continue per Pulmonary. Continue Symbicort Singulair and albuterol. Continue monitoring low-dose CTs as instructed Assessment & Plan (08/15/2022 6:44 PM DIRECTOR EHS): Stop smoking. Continue current plan per Pulmonary Assessment & Plan (08/01/2021 9:34 PM DIRECTOR EHS): Continue per Pulmonary Dr. Valdes Assessment & Plan (02/09/2021 8:15 PM CDT): Stop smoking. Continue per Dr. Valdes Assessment & Plan (07/29/2020 7:32 AM DIRECTOR EHS): Continue per Pulm Assessment & Plan (03/27/2020 8:00 AM CDT): Stop smoking. He declines starting inhalers or referral to Pulmonary Assessment & Plan (09/26/2019 10:27 PM DIRECTOR EHS): This is a significant, separately identifiable problem [...] order Assessment & Plan (07/29/2020 7:33 AM DIRECTOR EHS): Needs to repeat ---Dr. Valdes has already ordered Assessment & Plan (03/27/2020 8:00 AM CDT): 06/2019 LDCT Several 2-3mm nodules, probable benign LungRADs 2 --- repeat 06/2020 Assessment & Plan (09/26/2019 10:26 PM DIRECTOR EHS): 06/2019 LDCT Several 2-3mm nodules, probable benign LungRADs 2 --- repeat 06/2020 Hyperplastic rectal polyp 05/20/2019 Overview (05/20/2019): Colonoscopy 01/29/2012 at [facility]--->2021 Assessment & Plan (05/28/2019 7:33 PM CDT): Recvd colonoscopy and due to repeat in 2021 Hiatal hernia 05/20/2019 Mixed hyperlipidemia 05/20/2019 Assessment & Plan (11/19/2024 11:45 PM DIRECTOR EHS): Encouraged patient to follow low fat/low chol [...] 80 Assessment & Plan (11/24/2023 10:34 AM DIRECTOR EHS): Encouraged patient to follow low fat/low chol diet like the Mediterranean diet. Increase good fats in the diet. Increase exercise. Monitor labs as needed. Continue pravastatin 80 Assessment & Plan (08/15/2023 5:03 PM DIRECTOR EHS): Encouraged patient to follow low fat/low chol [...] Zetia Assessment & Plan (08/01/2021 9:33 PM DIRECTOR EHS): Encouraged patient to follow fat/low chol diet [...] statin Assessment & Plan (07/29/2020 7:34 AM DIRECTOR EHS): Encouraged patient to follow fat/low chol diet like the Mediterranean diet. Increase good fats in the diet. Increase exercise. Monitor labs as needed. Assessment & Plan (03/27/2020 8:02 AM CDT): Encouraged patient to continue low fat/low chol diet. Continue exercise. Increase good fats in the diet. Monitor labs as needed. Stable with zetia and pravastatin Assessment & Plan (09/26/2019 7:39 AM DIRECTOR EHS): Encouraged patient to continue low fat/low chol [...] change Assessment & Plan (08/15/2023 5:03 PM DIRECTOR EHS): Patient is legally blind. Continue with Ophthalmology Assessment & Plan (04/08/2023 8:47 PM CDT): No change Assessment & Plan (03/27/2020 8:02 AM CDT): No change Assessment & Plan (09/26/2019 7:39 AM DIRECTOR EHS): No change Assessment & Plan (05/28/2019 7:35 PM CDT): No change Cigarette smoker 05/20/2019 Assessment & Plan (08/11/2023 8:45 AM DIRECTOR EHS): Encouraged smoking cessation. Discussed 3 minutes. Reviewed options for assistance with cessation. Reviewed half-way sequela associated with smoking. Pt declines assistance at this time but may contact the office at anytime for further help as they desire. Assessment & Plan (04/08/2023 8:47 PM CDT): Encouraged smoking cessation. Discussed 3 minutes. Reviewed options for assistance with cessation. Reviewed half-way sequela associated with smoking. Pt declines assistance at this time but may contact the office at anytime for further help as they desire. Low-dose CT will be due in May. It is already scheduled Assessment & Plan (12/12/2022 9:42 PM CDT): Encouraged smoking cessation. Discussed 3 minutes. Reviewed options for assistance with cessation. Reviewed manager multicultural sequela associated with smoking. Pt declines assistance at this time but may contact the office at anytime for further help as they desire. Assessment & Plan (08/15/2022 6:44 PM DIRECTOR EHS): Encouraged smoking cessation. Discussed 3 minutes. Reviewed options for assistance with cessation. Reviewed manager multicultural sequela associated with smoking. Pt declines assistance at this time but may contact the office at anytime for further help as they desire. Assessment & Plan (05/09/2022 8:19 PM CDT): Encouraged smoking cessation. Discussed 3 minutes. Reviewed options for assistance with cessation. Reviewed half-way sequela associated with smoking. Pt declines assistance at this time but may contact the office at anytime for further help as they desire. Assessment & Plan (08/01/2021 9:33 PM DIRECTOR EHS): Encouraged smoking cessation. Discussed 3 minutes. Reviewed options for assistance with cessation. Reviewed half-way sequela associated with smoking. Pt declines assistance at this time but may contact the office at anytime for further help as they desire. Assessment & Plan (05/17/2021 11:41 PM CDT): Encouraged smoking cessation. Discussed 3 minutes. Reviewed options for assistance with cessation. Reviewed manager multicultural sequela associated with smoking. Pt declines assistance at this time but may contact the office at anytime for further help as they desire. Assessment & Plan (03/12/2021 12:31 PM CDT): Encouraged smoking cessation. Discussed 3 minutes. Reviewed options for assistance with cessation. Reviewed manager multicultural sequela associated with smoking. He is slowing down. Offered assistance. May call if decides he wants help Assessment & Plan (07/29/2020 7:34 AM DIRECTOR EHS): Encouraged smoking cessation. Discussed 3 minutes. Reviewed options for assistance with cessation. Reviewed half-way sequela associated with smoking. Pt declines assistance at this time but may contact the office at anytime for further help as they desire. Assessment & Plan (03/27/2020 8:02 AM CDT): Encouraged smoking cessation. Discussed 3 minutes. Reviewed options for assistance with cessation. Reviewed manager multicultural sequela associated with smoking. Pt declines assistance at this time but may contact the office at anytime for further help as they desire. Assessment & Plan (09/26/2019 7:39 AM DIRECTOR EHS): Encouraged smoking cessation. Discussed 3 minutes. Reviewed options for assistance with cessation. Reviewed half-way sequela associated with smoking. Pt declines assistance at this time but may contact the office at anytime for further help as they desire. Assessment & Plan (07/14/2019 7:05 PM CDT): Encouraged smoking cessation. Discussed 3 minutes. Reviewed options for assistance with cessation. Reviewed manager multicultural sequela associated with smoking. Pt declines assistance [...] 05/20/2019 Assessment & Plan (11/19/2024 11:45 PM DIRECTOR EHS): Pre-diabetes/hyperglycemia is a precursor to Dm. Stressed [...] diabetes. Assessment & Plan (11/24/2023 10:34 AM DIRECTOR EHS): Pre-diabetes/hyperglycemia is a precursor to Dm. Stressed importance of working on diet (decrease your simple sugars and one carbohydrate with each meal) and increase you exercise to achieve weight loss and this will help prevent you from progressing to diabetes. Assessment & Plan (08/15/2023 5:03 PM DIRECTOR EHS): Pre-diabetes/hyperglycemia is a precursor to Dm. Stressed [...] diabetes. Assessment & Plan (08/01/2021 9:33 PM DIRECTOR EHS): Pre-diabetes/hyperglycemia is a precursor to Dm. Stressed [...] diabetes. Assessment & Plan (07/29/2020 7:34 AM DIRECTOR EHS): Pre-diabetes is a precursor to Dm. Stressed [...] labs Assessment & Plan (09/26/2019 10:27 PM DIRECTOR EHS): This is a significant, separately identifiable problem [...] and keratoprosthesis ultimately resulting in endophthalmitis. Tyrel Velez MD 07/31/2016 9:45 AM 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 [...] within the chart Annual physical exam 11/24/2023 024 Assessment & Plan (11/24/2023 10:35 AM DIRECTOR EHS): Encouraged healthy lifestyle, good nutrition and exercise. Encouraged Calcium and Vitamin D and weight bearing exercise for bone health. Reviewed immunizations Reviewed age appropirate screenings. Need for influenza vaccination 08/15/2023 11/24/2023 Assessment & Plan (08/15/2023 5:04 PM DIRECTOR EHS): Flu vaccine updated in the office today BMI 22.0-22.9, adult 07/22/2023 024 Assessment & Plan (08/11/2023 8:12 AM DIRECTOR EHS): Weight/BMI is in healthy range. Continue healthy [...] 04/03/2023 Assessment & Plan (08/15/2022 6:45 PM DIRECTOR EHS): Flu updated in the office today BMI [...] test outpatient. Was referred to an outside operation supervisor. Encouraged to consider seeing a [facility] Medical group of cardiologists so all of his providers are in the same system. He is in agreement. Referral made to Dr. Eduardo as he has multiple risk factors. BMI 23.0-23.9, adult 01/21/2022 022 Assessment & Plan (01/21/2022 11:10 AM CDT): Weight/BMI is in healthy range. Continue healthy lifestyle to maintain. BMI 21.0-21.9, adult 08/01/2021 022 Assessment & Plan (08/01/2021 7:28 AM DIRECTOR EHS): Weight/BMI is in healthy range. Continue healthy lifestyle to maintain. Medicare annual wellness visit, subsequent 08/01/2021 08/15/2022 Assessment & Plan (08/01/2021 9:34 PM DIRECTOR EHS): Encouraged healthy lifestyle, good nutrition and exercise. Encouraged Calcium and Vitamin D and weight bearing exercise for bone health. Reviewed immunizations. Reviewed age appropirate screenings. Medicare Wellness Documentation is completed within the chart Fatigue 05/17/2021 05/02/2022 Assessment & Plan (08/01/2021 9:34 PM DIRECTOR EHS): Probably multifactorial. Check labs and followup to re-evaluate BMI 21.0-21.9, adult 05/08/2021 021 Assessment & Plan (05/08/2021 7:58 AM CDT): [...] 024 Assessment & Plan (11/24/2023 10:34 AM DIRECTOR EHS): Weight/BMI is in healthy range. Continue healthy [...] 05/02/2022 Assessment & Plan (07/29/2020 7:34 AM DIRECTOR EHS): Probably multifactorial. Check labs and followup to re-evaluate Need for immunization against influenza 07/29/2020 11/24/2020 Assessment & Plan (07/29/2020 7:34 AM DIRECTOR EHS): Updated in office today BMI 22.0-22.9, adult 03/27/2020 024 Assessment & Plan (05/20/2024 7:37 PM CDT): Weight/BMI is in healthy range. Continue healthy lifestyle to maintain. Assessment & Plan (07/29/2020 7:34 AM DIRECTOR EHS): Weight/BMI is in healthy range. Continue healthy [...] 020 Assessment & Plan (09/26/2019 7:39 AM DIRECTOR EHS): Weight/BMI is in healthy range. Continue healthy lifestyle to maintain. Annual physical exam 09/26/2019 020 Assessment & Plan (09/26/2019 7:40 AM DIRECTOR EHS): Encouraged healthy lifestyle, good nutrition and exercise. Encouraged Calcium and Vitamin D and weight bearing exercise for bone health. Reviewed immunizations Reviewed age appropirate screenings. Influenza vaccine refused 09/26/2019 Assessment & Plan (09/26/2019 7:40 AM DIRECTOR EHS): Encouraged vaccine. Reviewed risks/ benefits. Patient refuses and accepts risks. Esophagitis determined by endoscopy 05/20/2019 05/02/2022 Gastritis 05/20/2019 05/02/2022 Essential (primary) hypertension 05/20/2019 05/20/2024 Assessment & Plan (11/24/2023 10:34 AM DIRECTOR EHS): Bp is stable/in acceptable range for any co-morbidities. Encouraged to limit sodium intake and exercise for weight control. Continue losartan 50 Assessment & Plan (08/15/2023 5:04 PM DIRECTOR EHS): Bp is stable/in acceptable range for any co-morbidities. Encouraged to limit sodium intake and exercise for weight control. Continue per Dr. Curtis Assessment & Plan (08/11/2023 8:45 AM DIRECTOR EHS): Bp is stable/in acceptable range for any [...] losartan Assessment & Plan (08/15/2022 6:44 PM DIRECTOR EHS): Bp is stable/in acceptable range for any [...] 50 Assessment & Plan (08/01/2021 9:33 PM DIRECTOR EHS): Bp is stable/in acceptable range for any [...] Losartan/HCTZ Assessment & Plan (07/29/2020 7:33 AM DIRECTOR EHS): Bp is stable/in acceptable range for any co-morbidities. Encouraged to limit sodium intake and exercise for weight control. Losartan and HCTZ Assessment & Plan (03/27/2020 8:00 AM CDT): Bp is stable/in acceptable range for any co-morbidities. Encouraged to limit sodium intake and exercise for weight control. Continue losartan/HCTZ Assessment & Plan (09/26/2019 7:38 AM DIRECTOR EHS): Bp is stable/in acceptable range for any [...] 01/21/2022 Assessment & Plan (08/01/2021 9:34 PM DIRECTOR EHS): Persistent hiccups. Has consulted with multiple providers [...] omeprazole Assessment & Plan (07/29/2020 7:32 AM DIRECTOR EHS): Continue per ENT/Pulm. He is responding to BID omeprazole. Will monitor Assessment & Plan (03/27/2020 7:59 AM CDT): Dr. Stokes started him on Pantoprazole. He hasn't noted much difference. Needs to followup to complete workup. Encouraged patient to call and make appointment. Assessment & Plan (09/26/2019 10:26 PM DIRECTOR EHS): This is a significant, separately identifiable problem that was evaluated and managed on the same day as the wellness exam Less frequent than in the past. Continue the PPI and monitor Rx sent to pharmacy. Assessment & Plan (08/24/2019 9:04 AM DIRECTOR EHS): Improving with the PPI. Continue PPI and [...] 2018 Assessment & Plan (08/24/2019 9:04 AM DIRECTOR EHS): Encouraged vaccine. Reviewed risks/ benefits. Patient refuses and accepts risks. Assessment & Plan (07/14/2019 7:05 PM CDT): Encouraged vaccine. Reviewed risks/ benefits. Patient refuses and accepts risks. Assessment & Plan (05/28/2019 7:34 PM CDT): Encouraged again Hypovolemia dehydration 02/2024 Leukocytosis 11/24/2023 Hypercholesteremia Assessment & Plan (04/08/2023 8:47 PM CDT): Encouraged patient to follow low fat/low chol diet like the Mediterranean diet. Increase good fats in the diet. Increase exercise. Monitor labs as needed. Continue pravastatin and Zetia Gastroesophageal reflux dise ase without esophagitis 04/03/2023 Immunizations Immunization Administration Dates Next Due Influenza, Quadrivalent, Spl it, Preservative Free, Intramuscular 07/22/2023,07/23/2022,08/01/2021,07/29 Influenza, Trivalent, Preser vative Free, Intramuscular 06/20/2024 Influenza, Unspecified 09/20/2024(Deferr ed: Patient Refused),10/21/2021(Deferred: Patient Refused),08/24/2019(Deferred: Patient Refused),07/14/2019(Deferred: Patient Refused),07/14/2019(Deferred: Patient Refused) Pfizer SARS-CoV-2 Monovalent Vaccination (12+ Yrs) PURPLE 02/09/2021,01/05/2021 Social History Tobacco Use Types Packs/Day Years Used Date Smoking Tobacco: Former Cigarettes 0.8 40 0 09/1981 - 09/2021 Smokeless Tobacco: Never Tobacco Cessation:Counseling Given: Not Answered Alcohol Use Standard Drinks/Week Comments Yes 0 (1 standard drink = 0.6 oz pur e alcohol) social Friendemic Utilities Answer Date Recorded In the past 12 months has [employer], gas, oil, or water [employer] threatened to shut off services in your [...] often do you attend chur ch or hinduism services? Patient declined 12/03/2023 Do you belong to any clubs o r organizations such as congregation groups, unions, fraternal or athletic groups, or [...] place to sleep or slept in a long-term (including now)? No 12/03/2023 Personal Safety Answer Date Recorded Have you ever been in or are you currently in a harmful physical or emotional relationship or is someone making you feel afraid or unsafe? Denies 08/01/2024 Sex and Gender Information Value Date Recorded Sex Assigned at Not on file Legal Sex Male 12:22 AM DIRECTOR EHS Gender Identity Not on file Sexual Orientation Not on file Occupation Industry Job Start Date Job End Date Disabled Not on file Not on file Not on file Last Filed Vital Signs [...] 12/06/2024 9:32 AM CDT Plan of Treatment Not on file Procedures Procedure Name Priority Date/Time Associated Diagnosis Comments TSH Routine 10/03/2024 10:42 AM DIRECTOR EHS Fatigue, unspecified type LIPID PANEL Routine 10/03/2024 10:42 AM DIRECTOR EHS Mixed hyperlipidemia HEMOGLOBIN A1C Routine 10/03/2024 10:42 AM DIRECTOR EHS Pre-diabetes COMPREHENSIVE METABOLIC PANEL Routine 10/03/2024 10:42 AM DIRECTOR EHS Hyponatremia CBC WITH AUTO DIFFERENTIAL Routine 10/03/2024 10:42 AM DIRECTOR EHS Fatigue, unspecified type CT CHEST WO CONTRAST F/U LUNG SCREEN PROTOCOL Schedule Routine, Read Routine (OP Routine) 10/03/2024 9:25 AM DIRECTOR EHS Pulmonary nodules PSA SCREEN Routine 12/16/2022 12:39 PM CDT Prostate cancer screening HEPATITIS PANEL, ACUTE Routine 05/03/2022 5:40 AM CDT HM COLONOSCOPY Routine 07/14/2021 from Last 3 Months or Most Recently Relevant to Health Maintenance Results * (ABNORMAL) CBC with auto differential (10/03/2024 10:42 AM DIRECTOR EHS) Pathologist [facility] WBC 7.4 3.8 - 10.8 Thousand/u L [facility] RBC, POC 4.13(L) 4.20 - 5.80 Million/uL [facility] Hgb 12.0(L) 13.2 - 17.1 g/dL [facility] Hct 38.4(L) 38.5 - 50.0 % [facility] MCV 93.0 80.0 - 100.0 fL [facility] MCH 29.1 27.0 - 33.0 pg [facility] MCHC 31.3(L) 32.0 - 36.0 g/dL [facility] [...] [facility] Lymphocyte pct 21.1 % [facility] Monocytes 5.0 % [facility] Eosinophils 4.6 % [facility] Basophils 0.8 % [facility] Blood 10/03/2024 10:4 2 AM DIRECTOR EHS 10/03/2024 10:49 AM DIRECTOR EHS Narrative [facility] - 10/03/2024 11:53 PM DIRECTOR EHS FASTING:YES FASTING: YES Nuris ROBLES LAB BLOOD ORDERABLES Final Result Performing Organization Address [facility] Co de Phone Number [facility] [address] [place] [address] * TSH (10/03/2024 10:42 AM DIRECTOR EHS) [facility] TSH 1.29 0.40 - 4.50 mIU/L [facility] Blood 10/03/2024 10:4 2 AM DIRECTOR EHS 10/03/2024 10:49 AM DIRECTOR EHS Narrative [facility] - 10/03/2024 11:53 PM DIRECTOR EHS FASTING:YES FASTING: YES Nuris ROBLES LAB BLOOD ORDERABLES Final Result Performing Organization Address [facility] de Phone Number [facility] [address] [place] [address] * (ABNORMAL) Hemoglobin A1c (10/03/2024 10:42 AM DIRECTOR EHS) Pathologist [facility] Hgb A1C 5.7(H) <5.7 % of total Hgb [facility] Comment: For someone without known diabetes, a [...] for children. Blood 10/03/2024 10:4 2 AM DIRECTOR EHS 10/03/2024 10:49 AM DIRECTOR EHS Narrative QUEST - 10/03/2024 11:53 PM DIRECTOR EHS FASTING:YES FASTING: YES Nuris ROBLES LAB BLOOD ORDERABLES Final Result Performing Organization Address [facility]/ZIP Co de Phone Number GoLive! [facility] [address] [place] [address] * Lipid panel (10/03/2024 10:42 AM DIRECTOR EHS) [facility] Cholesterol 152 <200 mg/dL [employer] [facility] HDL 52 > OR = 40 mg/dL [facility] Triglycerides 72 <150 mg/dL [facility] LDL 84 mg/dL (calc) [facility] Comment: Reference range: <100 Desirable range <100 mg/dL for primary prevention; <70 mg/dL for patients with CHD or diabetic patients with > or = 2 CHD risk factors. LDL-C is now calculated using the Jacob calculation, which is a validated novel method providing better accuracy than the Friedewald equation in the estimation of LDL-C. Adal SS et al. NICOLE. 2013;310(19): 2790-3846 (http://education.Ambarella/faq/QKN449) Chol/HDL ratio 2.9 <5.0 (calc) [facility] Non-HDL, (LDL+VLDL) 100 <130 mg/dL (calc) [facility] Comment: For patients with diabetes plus 1 major ASCVD risk factor, treating to a non-HDL-C goal of <100 mg/dL (LDL-C of <70 mg/dL) is considered a therapeutic option. Blood 10/03/2024 10:4 2 AM DIRECTOR EHS 10/03/2024 10:49 AM DIRECTOR EHS Narrative QUEST - 10/03/2024 11:53 PM DIRECTOR EHS FASTING:YES FASTING: YES Nuris ROBLES LAB BLOOD ORDERABLES Final Result Performing Organization Address [facility] Co de Phone Number [employer] LabsCit[facility] [address] [place] [address] * (ABNORMAL) Comprehensive metabolic panel (10/03/2024 10:42 AM DIRECTOR EHS) Pathologist [facility] Glucose 84 65 - 99 mg/dL Dmitri Solorzano-Porsche Gross Comment: Fasting reference interval BUN 12 7 - 25 mg/dL [facility] Gross Creatinine 0.94 0.70 - 1.35 mg/dL Dmitri Solorzano-[facility] Gross eGFR 92 > OR = 60 mL/min/1.7 3m2 Dmitri Solorzano-Porsche Gross BUN/creat ratio SEE NOTE: 6 - 22 (calc) Dmitri Solorzano-[facility] Gross Comment: Not Reported: BUN and Creatinine are within reference range. Sodium 140 135 - 146 mmol/L Dmitri Solorzano[facility] Potassium, pl 5.0 3.5 - 5.3 mmol/L Dmitri Solorzano-[facility] Chloride 103 98 - 110 mmol/L Dmitri Solorzano-Porsche Gross CO2 30 20 - 32 mmol/L Dmitri Solor[facility]ano-[facility] Calcium 9.8 8.6 - 10.3 mg/dL Dmitri Floored-Porsche Gross Protein, sr 6.6 6.1 - 8.1 g/dL Dmitri Solorzano-Porsche Gross Albumin 4.2 3.6 - 5.1 g/dL Dmitri Solorzano-Porsche Gross GLOBULIN 2.4 1.9 - 3.7 g/dL (calc) Dmitri Solorzano-Porsche Gross Alb/glob ratio 1.8 1.0 - 2.5 (calc) Dmitri Solorzano-Porsche Gross Bilirubin, total 0.4 0.2 - 1.2 mg/dL Dmitri Floored-Porsche Gross Alk phos 53 35 - 144 U/L Dmitri Floored-Porsche Gross AST 8(L) 10 - 35 U/L Dmitri Floored-Porsche Gross ALT (SGPT) 6(L) 9 - 46 U/L Dmitri Floored-Porsche Gross Blood 10/03/2024 10:4 2 AM DIRECTOR EHS 10/03/2024 10:49 AM DIRECTOR EHS Narrative QUEST - 10/03/2024 11:53 PM DIRECTOR EHS FASTING:YES FASTING: YES us Nuris ROBLES LAB BLOOD ORDERABLES Final Result [facility] FlooredSaint [facility] [address] [place] [address] * CT Chest WO Contrast F/U Lung Screen Protocol (10/03/2024 9:25 AM DIRECTOR EHS) Anatomical Region Laterality Modality Chest N/A Computed Tomogra phy 10/03/2024 7:11 PM DIRECTOR EHS Narrative 10/03/2024 7:17 PM DIRECTOR EHS EXAM DESCRIPTION: CT CHEST WO CONTRAST F/U [...] Estuardo Ortiz M.D. KT T: Report ID: [id number] Reading Location: [id number] us Tasia Hoffman MD IMG CT PROCEDURES Final Resul t * PSA [...] 9 PM CDT 12/16/2022 12:46 PM CDT us Nuris ROBLES LAB BLOOD ORDERABLES Final Result [facility] [address] [facility] Department [place] [address] * Hepatitis panel, acute (05/03/2022 5:40 AM CDT) Hep A IgM Nonreactive Nonreactive [facility] Comment: Interpretive Data: If Hep A IgM Ab is reported as Equivocal, a new sample should be drawn in two weeks for testing. Current interpretive data was last revised on 19. Hep B core IgM Nonreactive Nonreactive [facility] Comment: Interpretive Data If HepB Core IgM Ab is reported as Equivocal, a new sample should be drawn in two weeks for testing. Current interpretive data was last revised on 19. Hep C Ab Nonreactive Nonreactive [facility] Comment: Interpretive Data Nonreactive: Antibodies to HCV [...] last revised on 2019. HepBsAg Nonreactive Nonreactive [facility] Blood 05/03/2022 5:40 AM CDT 05/03/2022 6:36 AM CDT Pamela Gongora DO LAB MICROBIOLOGY - GENERAL OR DERABLES Final Result [facility] [address] [facility] Department [place] [address] * (ABNORMAL) HM COLONOSCOPY (07/14/2021) Jame Mg MD HEALTH MAINTENANCE Edited Result - Final from Last 3 Months or Most Recently Relevant to Health Maintenance Insurance T MEDICARE [facility] TNA MEDICARE GOLD [employer] MEDICARE GOLD Advance Directives For more information, please contact: [phone] * Full Code (Latest Code Status on [...] 10:34 PM 11/16/2022 9:56 PM Care Teams Loan Closer Relationship Specialty Start Date End Date Nuris Berger PA [address] [facility] [address] [place] [address] PCP - General Internal Medicine 12/28/18 Jonatan Stokes MD [address] [place] [address] Consulting Physician Otolaryngology 03/27/20 Irma Bajwa MD [address] [place] [address] Consulting Physician Neurology 05/07/22
--- OUTSIDE RECORDS SUMMARY | 2024-12-21 15:18 | XMS_ITS | Encounter Summary ---
Author Organization [facility] Healthcare Address [address] [place] [address] Care Team Providers Care Diesel Automotive Technician Name Role Phone Nuris Berger Primary Care Provider [phone] Jonatan Stokes MD Unavailable [phone] Irma Bajwa MD Unavailable [phone] Encounter Details Date Type Department Care Team (Late st Contact Info) Description 06/28/2024 Orders Only [facility] Health Information Management [address] [place] [address] Scanning, Provider Social History Tobacco Use Types Packs/Day Years Used Date Smoking Tobacco: Former Cigarettes 0.8 40 0 09/1981 - 09/2021 Smokeless Tobacco: Never Alcohol Use Standard Drinks/Week Comments Yes 0 (1 standard drink = 0.6 oz pur e alcohol) social [facility] Utilities Answer Date Recorded In the past 12 months has [employer] gas, oil, or water [employer] threatened to shut off services in your [...] week 12/03/2023 How often do you attend [facility] or nondenominational services? Patient declined 12/03/2023 Do you belong to any clubs o r organizations such as restoration groups, unions, fraternal or athletic groups, or school groups? Patient declined 12/03/2023 How often do you attend meet ings of the clubs or organizations you belong to? Patient declined 12/03/2023 Are you , , di vorced, , never , or living with a partner? 12/03/2023 AUDIT-C Answer Date Recorded Q1: How often do you have a drink containing alc ohol? 2-4 times a month 05/09/2024 Q2: How many drinks containi ng alcohol do you have on a typical day when you are drinking? 1 or 2 05/09/2024 Q3: How often do you have si x or more drinks on one occasion? Never 05/09/2024 Overall Financial Resource Strain (CARDIA) Answe r Date Recorded How hard is it for you to pa y for the very basics like food, housing, medical care, and heating? Not hard at all 12/03/2023 PHQ-2 Answer Date Recorded PHQ-2 Total Score (If total score is 3 or more points, staff should administer the PHQ-9) 0 06/20/2024 Hunger Vital Sign Answer Date Recorded Within [...] place to sleep or slept in a care home (including now)? No 12/03/2023 Personal Safety Answer Date Recorded Have you ever been in or are you currently in a harmful physical or emotional relationship or is someone making you feel afraid or unsafe? 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 Gender Identity Not on file Sexual Orientation Not on file Occupation Industry Job Start Date Job End Date Disabled Not on file Not on file Not on file documented as of this encounter Plan of Treatment Not on file documented as of this encounter Procedures Procedure Name Priority Date/Time Associated Diagnosis Comments SCAN - RADIOLOGY/IMAGING 06/28/2024 documented in this encounter Results * SCAN - RADIOLOGY/IMAGING (06/28/2024) Anatomical Region Laterality Modality Other us Provider Scanning Final Result documented in this encounter Visit Diagnoses Not on filedocumented in this encounter Care Teams Diesel Automotive Technician Relationship Specialty Start Date End Date Nuris Berger PA [address] [place] [address] PCP - General Internal Medicine 12/28/18 Jonatan Stokes MD [address] [place] [address] Consulting Physician Otolaryngology 03/27/20 Irma Bajwa MD [address] [place] [address] [place] [address] Consulting Physician Neurology 05/07/22 documented as of this encounter
--- OUTSIDE RECORDS SUMMARY | 2024-12-21 15:18 | XMS_ITS | Clinical Summary ---
Author Organization [facility] Address [address] [place] [address] Care Team Providers Care Salvage Machine Operator Name Role Phone Nuris Berger PA-C Primary Care Provider [phone] Source Comments [facility],non-owned Affiliates and Associated Physician Practices is amultiple site organization consisting of ambulatory clinics and hospital sitesin [place], [place]. This disclosure is being madepursuant to the Care Everywhere program and may not contain all information available regarding this patient. Last updated 18.[facility] Allergies Active Allergy Reactions Criticality Noted Date Comments Chlorpromazine Other Low 12/02/2023 Neurology consult during his 12/02/2023 hospitalization states the facial twitching is NOT consistent with Tardive Dyskinesia so ok to use Thorazine prn for the chronic intractable hiccups Medications * Be aware that medications may not be up to date on this document. Alwaysverify current medications with the patient. Medication Sig Dispensed Refills Start Date End Date Status cetirizine (ZYRTEC) 10 MG tablet Take 10 mg by mouth daily. 03/27/2021 Active albuterol HFA (PROVENTIL; VENTOLIN; PROAIR) 108 (90 Base) MCG/ACT inhaler Inhale 2 puffs into the lungs. 10/03/2020 Active budesonide-formot kenn (SYMBICORT) 160-4.5 MCG/ACT inhaler Inhale 2 puffs into the lungs 2 (two) times daily. Active vitamin D3 (CHOLECALCIFEROL) (25 MCG) 1000 UNIT capsule 1,000 Units daily. Active montelukast (SINGULAIR) 10 MG tablet 02/20/2022 Active pravastatin (PRAVACHOL) 80 MG tablet 01/30/2022 Active Aspirin Low Dose 81 MG tablet Take 1 (one) tablet by mouth once daily 05/31/2022 Active baclofen (Lioresal) 10 MG tablet 02/12/2023 Active cyanocobalamin 100 MCG tablet Take 1 (one) tablet by mouth once daily Active gabapentin (Neurontin) 300 MG capsule 08/03/2022 Active losartan (Cozaar) 100 MG tablet 01/17/2023 Active ondansetron (Zofran) 8 MG tablet 03/01/2023 Active sodium chloride 1 GM tablet Take 1 (one) tablet by mouth 3 times daily with meals 03/01/2023 Active Symbicort 80-4.5 MCG/ACT inhaler INHALE 2 PUFFS BY MOUTH TWICE DAILY. RINSE MOUTH WITH WATER AFTER USE. DO NOT SWALLOW 04/16/2023 Active hydroCHLOROthiazi de (Microzide) 12.5 MG capsule Take 1 (one) capsule by mouth once daily Active acetaZOLAMIDE (Diamox) 250 MG tablet Take 1 (one) tablet by mouth 4 times daily 20 tablet 06/17/2023 Active ergocalciferol (Drisdol) 1.25 MG (89762 UT) capsule Take 1 (one) capsule by mouth 08/02/2023 Active losartan (Cozaar) 50 MG tablet 07/22/2023 Active metoclopramide (Reglan) 10 MG tablet 08/02/2023 Active pantoprazole EC (Protonix) 40 MG tablet Take 1 (one) tablet by mouth 2 times daily 08/02/2023 Active chlorproMAZINE (Thorazine) 25 MG tablet 11/08/2023 Active ondansetron, disintegrating, (Zofran ODT) 4 MG tablet Take 1 (one) tablet by mouth 3 times daily as needed 11/04/2023 Active prednisoLONE acetate (Pred Forte) 1 % ophthalmic suspension Instill 1 (one) drop into left eye 3 times daily 15 mL 11 01/18/2024 Active tobramycin-dexAME THasone (Tobradex) 0.3-0.1 % ophthalmic suspension Instill 1 (one) drop into left eye at bedtime 10 mL 11 01/24/2024 Active dorzolamide-timol ol (Cosopt) 2-0.5 % ophthalmic solution Instill 1 (one) drop into left eye 3 times daily 10 mL 11 07/21/2024 Active trimethoprim-poly myxin B (Polytrim) 42582-6.1 UNIT/ML-% ophthalmic solution Instill 1 (one) drop into left eye once daily 10 mL 11 09/18/2024 Active latanoprost (Xalatan) 0.005 % ophthalmic solution 12/01/2024 Discontinued (Clinical Decision) prednisoLONE acetate (Pred Forte) 1 % ophthalmic suspension Instill 1 (one) drop into left eye every 2 hours 08/27/2023 12/01/2024 Discontinued (Clinical Decision) tobramycin-dexAME THasone (TobraDex) 0.3-0.1 % ophthalmic ointment Instill into left eye at bedtime 08/27/2023 12/01/2024 Discontinued (Clinical Decision) neomycin-polymyxi n-dexameth (Maxitrol) ophthalmic suspension Instill 1 (one) drop into right eye as directed Shake liquid and instill 1 drop in right eye twice daily as needed 5 mL 01/24/2024 12/01/2024 Discontinued (Clinical Decision) Active Problems Problem Noted Date Diagnosed Date Hyponatremia 05/17/2021 Overview (10/08/2021): Last Assessment & Plan: Low in hospital. Recheck labs. Fatigue 07/29/2020 Overview (10/08/2021): Last Assessment & Plan: Probably multifactorial. Check labs and followup to re-evaluate Last Assessment & Plan: Probably multifactorial. Check labs and followup to re-evaluate BMI 21.0-21.9, adult 03/27/2020 Overview (10/08/2021): Last Assessment & Plan: Weight/BMI is in healthy range. Continue healthy lifestyle to maintain. Last Assessment & Plan: Weight/BMI is in healthy range. Continue healthy lifestyle to maintain. Gastroesophageal reflux disease with esophagitis 07/14/2019 Overview (12/24/2020): Last Assessment & Plan: Continue PPI Lung nodule < 6cm on CT 06/26/2019 Overview (12/24/2020): ----06/2019 LDCT Several 2-3mm nodules, probable benign LungRads 2 --- repeat 06/2020 ----08/02/2020 Repeat 6 months (due 01/2021) Last Assessment & Plan: Needs to repeat ---Dr. 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 Discussed 3 minutes. Reviewed options for assistance with cessation. Reviewed retirement sequela associated with smoking. Pt declines assistance at this time but may contact the office at anytime for further help as they desire. Essential hypertension 05/20/2019 Overview (12/24/2020): Last Assessment & Plan: Bp is stable/in acceptable range for any co-morbidities. Encouraged to limit sodium intake and exercise for weight control. Losartan and HCTZ Hiccups 05/20/2019 Overview (12/24/2020): Last Assessment & Plan: Continue per ENT/Pulm. He is responding to BID omeprazole. Will monitor Hyperplastic rectal polyp 05/20/2019 Overview (12/24/2020): Colonoscopy 01/29/2012 at [facility]--->2021 Last Assessment & Plan: Recvd colonoscopy and due to repeat in 2021 Legally blind 05/20/2019 Overview (12/24/2020): Last Assessment & Plan: No change Mixed hyperlipidemia 05/20/2019 Overview (12/24/2020): Last Assessment & Plan: Encouraged patient to follow fat/low chol diet like the Mediterranean diet. Increase good fats in the diet. Increase exercise. Monitor labs as needed. Pre-diabetes 05/20/2019 Overview (12/24/2020): Last Assessment & Plan: Pre-diabetes is a precursor to Dm. Stressed importance of working on diet (decrease your simple sugars and one carbohydrate with each meal) and increase you exercise to achieve weight loss and this will help prevent you from progressing to diabetes. 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 However largely intact size 5 Pruett visual field with generalized decreased retinal sensitivity suggest still good vision potential persists left eye. 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 Corneal abrasion 02/03/2012 Aniridia 12/11/2011 Cornea replaced by transplant 12/11/2011 Lens replaced by other means 12/11/2011 Encounters Date Type Department Care Team Description 12/13/2024 9:15 AM CDT Office Visit [facility] - Ophthalmology [address] [place] [phone] Louis Hansen MD H/O cornea transplant (Primary Dx); Pseudophakia 12/13/2024 Travel 12/01/2024 8:30 AM CDT Clinical Support [facility] - Ophthalmology [address] [place] [phone] Tyrel Velez MD 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 (Primary Dx) 12/01/2024 8:25 AM CDT Clinical Support [facility] - Ophthalmology [address] [place] [phone] Tyrel Velez MD 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 (Primary Dx) 12/01/2024 8:20 AM CDT Office Visit [facility] - Ophthalmology [address] [place] [phone] Tyrel Veelz MD 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 (F LUZONE; FLULAVAL; FLUARIX; AFLURIA QUADRIVALENT; 6MO+), 0.5 ML (IIV4) 07/22/2023,07/23/2022 Family History Medical History Relation Name Comments Glaucoma Brother Glaucoma Mother Relation Name Status Comments Brother Mother Social History Tobacco Use Types Packs/Day Years Used Date Smoking Tobacco: Former Cigarettes 0.5 40 0 02/1982 - 02/2022 Smokeless Tobacco: Former Tobacco Cessation:Counseling Given: Not Answered Alcohol Use Standard Drinks/Week Comments Yes 0 (1 standard drink = 0.6 oz pur e alcohol) 1-2 beers a week AUDIT-C Answer Date Recorded Q1: How often do you have a drink containing alcohol? Never 06/16/2023 Q2: How many drinks containi ng alcohol do you have on a typical day when you are drinking? Patient does not drink Frequency of Binge Drinking Not on file 05/22 Sex and Gender Information Value Date Recorded Sex Assigned at Not on file Gender Identity Not on file Sexual Orientation Not on file Last Filed Vital Signs Vital Sign Reading Time Taken Comments Blood Pressure 128/70 08/26/2023 12:43 PM HOLLOW HANDLE BENCH WORKER Pulse 65 08/26/2023 12:43 PM HOLLOW HANDLE BENCH WORKER Temperature 35.9 C (96.7 F) 08/26/2023 12:34 PM HOLLOW HANDLE BENCH WORKER Respiratory Rate 14 08/26/2023 12:43 PM HOLLOW HANDLE BENCH WORKER Oxygen Saturation 98% 08/26/2023 12:34 PM HOLLOW HANDLE BENCH WORKER Inhaled Oxygen Concentration - - Weight 64.9 kg (143 lb) 08/26/2023 9:01 AM HOLLOW HANDLE BENCH WORKER Height 172.7 cm (5' 8 ) 08/26/2023 9:01 AM HOLLOW HANDLE BENCH WORKER Body Mass Index 21.74 08/26/2023 9:01 AM HOLLOW HANDLE BENCH WORKER Plan of Treatment Upcoming Encounters Date Type Department Care Team (Late st Contact Info) Description 04/18/2025 9:15 AM CDT Office Visit [facility] - Ophthalmology [address] [place] [phone] Louis Hansen MD [address] [facility] [place] [phone] 08/07/2025 8:40 AM HOLLOW HANDLE BENCH WORKER Office Visit [facility] - Ophthalmology [address] [place] [phone] Tyrel Velez MD [address] [place] [phone] Health Maintenance Due Date Last Done Comments COLOGUARD (AGES 45-75) - COLON CA SCREENING 1961 COLON MONITORING 1961 COLONOSCOPY - COLON CA SCREENING 1961 CT COLONOGRAPHY - COLON CA SCREENING 1961 Colorectal Cancer Screening 1961 FIT - COLON CA SCREENING 1961 FLEX SIG - COLON CA SCREENING 1961 HIV SCREENING 1976 DTAP/TDAP/TD VACCINES (1 - Tdap) 1980 PNEUMOCOCCAL VACCINE 50+ (1 of 2 - PCV) 1980 ZOSTER VACCINE (1 of 2) 2011 Respiratory Syncytial Virus (RSV) Vaccine Pt: or over 60 yrs (1 - Risk 60-74 years 1-dose series) 2021 COVID-19 VACCINE (3 - season) 2024 02/09/2021, 01/05/2021 DEPRESSION SCREENING 09/20/2024 MEDICARE AWV CALENDAR YEAR 2024 LUNG CANCER SCREENING 06/16/2025 06/16/2024 , 06/14/2023, 08/02/2020 HEPATITIS C SCREENING Completed 05/03/2022 INFLUENZA VACCINE Completed 06/20/2024, , 07/23/2022, Additional history exists HEPATITIS B VACCINE Aged Out No longe r eligible based on patient's age to complete this topic HIB VACCINE Aged Out No longer eligi ble based on patient's age to complete this topic HPV VACCINE Aged Out No longer eligi ble based on patient's age to complete this topic MENINGOCOCCAL (Group B) VACCINE SHARED DECISION-MAKING Aged Out No longer eligible based on patient's age to complete this topic MENINGOCOCCAL GROUPS A/C/Y/W VACCINE Aged Out No longer eligible based on patient's age to complete this topic Medical Devices Implanted Type Area Pond Worker Device Identifier Shelf Expiration Date Model / Serial / Lot Drain Glcm Thk.9mm Blnt Tpr med Flxb - [id number] Implanted:Qty: 1 on 05/04/2018 by Tyrel Velez MD at [facility] Left: Eye [employer] 03/15/2020 7 / [id number] / [id number] Graft Tissue Ttplst Sclr .8x.5cm Lopro - [id number] Implanted:Qty: 1 on 05/04/2018 by Tyrel Velez MD at [facility] Left: Eye [employer] 01/17/2023 [id number] / [id number] / [id number] Impl Opth 250sq Mm Brvldt Magaly 1 Qdrnt - [id number] Implanted:Qty: 1 on 06/16/2023 by Tyrel Velez MD at [facility] Left: Eye [employer] 01/09/2024 [id number] / [id number] / Graft Tissue Ttpl Ioptch Sclr .8x.5cm - [id number] Implanted:Qty: 1 on 06/16/2023 by Tyrel Velez MD at [facility] Left: Eye [employer] 09/19/2027 [id number] / [id number] / Graft Tissue Ttpl Ioptch Sclr .8x.5cm - [id number] Implanted:Qty: 1 on 06/16/2023 by Tyrel Velez MD at [facility] Left: Eye [employer] 09/19/2027 [id number] / [id number] / J Luis Cornea - [id number] Implanted:Qty: 1 on 08/26/2023 by Louis Hansen MD at [facility] Left: Eye Mid Radha Transplant 09/05/2023 [id number] / [id number] / [id number] Description:Product Numb:[id number] EXP:09-05-2023 DIN:[id number] Advance Directives * Full Code (Latest Code Status on File) Date Activated Date Inactivated Comments 05/04/2018 11:35 AM 05/04/2018 1:21 PM * Full Code Date Activated Date Inactivated Comments 05/04/2018 7:43 AM 05/04/2018 11:35 AM Care Teams Salvage Machine Operator Relationship Specialty Start Date End Date Nuris Berger PA-C PCP - General 02/13/20
[2024-12-21 15:21] LABS: Basophils Percent Auto 0.4 % (0.2-1.2); Eosinophils Absolute Auto 0.2 K/mm3 (0-0.3); Eosinophils Percent Auto 2.1 % (0-4.4); Hematocrit 35.2 % (42.0-52.0); Immature Granulocyte Absolute 0.03 K/mm3 (0.00-0.031); Immature Granulocyte Percent A 0.3 % (0-0.5); Lymphocytes Absolute Auto 1.78 K/mm3 (0.9-3.2); Lymphocytes Percent Auto 19.8 % (18.3-44.2); Mean Corpuscular HGB Conc 34.1 g/dl (32-36); Mean Corpuscular Hemoglobin 28.8 pg (26-34); Mean Corpuscular Volume 84.4 fl (80-100); Mean Platelet Volume 11.5 fl (7.4-10.4); Monocytes Absolute Auto 0.5 K/mm3 (0.1-0.6); Neutrophils Absolute Auto 6.4 K/mm3 (1.3-6.7); Neutrophils Percent Auto 71.4 % (45.5-73.1); Platelet Count Result 236 k/mm3 (150-375); Red Blood Count 4.17 M/mm3 (4.6-6.20)
[2024-12-21 15:26] LABS: Add Urine Microscopic? NO; Appearance Urine Clear (Clear); Bilirubin Urine Negative (Negative); Blood Urine Negative (Negative); Color Urine Yellow (Yellow); Glucose Urine UA Negative (Negative); Ketones Urine Negative (Negative); Leukocyte Esterase Ur Negative LEU/UL (Negative); Nitrate Urine Negative (Negative); Protein Urine Negative (Negative); Specific Grav Ur 1.002 (1.001-1.035); Urobilinogen Urine 0.2 mg/dL (<2.0)
[2024-12-21 15:32] LABS: Alanine Aminotransferase 11 U/L (6-50); Albumin Level 4.4 g/dL (3.5-5.1); Alkaline Phosphatase 68 U/L (38-126); Anion Gap 11 mmol/L (4-12); Aspartate Amino Transferase 20 U/L (17-59); Bilirubin,Total 0.4 mg/dL (0.2-1.3); Blood Urea Nitrogen 8 mg/dL (9-20); Calcium 9.2 mg/dL (8.4-10.2); Carbon Dioxide 23 mmol/L (22-30); Chloride 88 mmol/L (98-107); Estimated CRCL calculation 84 ml/min; Estimated Glomerular Filt Rate > 60; Glucose 103 mg/dL (65-110); Lipase 131 U/L (23-300); Potassium 4.3 mmol/L (3.4-5.0); Sodium 122 mmol/L (137-145)
--- OUTSIDE RECORDS SUMMARY | 2024-12-21 16:56 | XMS_ITS | Encounter Summary ---
Author Organization [facility] Healthcare Address [address] [place] [address] Care Team Providers Care Dye Feeder Name Role Phone Nuris Berger Primary Care Provider [phone] Jonatan Stokes MD Unavailable [phone] Irma Bajwa MD Unavailable [phone] Encounter Details Date Type Department Care Team (Late st Contact Info) Description 06/28/2024 Orders Only [facility] Health Information Management [address] [place] [address] Scanning, Provider Social History Tobacco Use Types Packs/Day Years Used Date Smoking Tobacco: Former Cigarettes 0.8 40 0 09/1981 - 09/2021 Smokeless Tobacco: Never Alcohol Use Standard Drinks/Week Comments Yes 0 (1 standard drink = 0.6 oz pur e alcohol) social [facility] Utilities Answer Date Recorded In the past 12 months has g4interactive, gas, oil, or water latakoo threatened to shut off services in your [...] week 12/03/2023 How often do you attend [facility] or church services? Patient declined 12/03/2023 Do you belong to any clubs o r organizations such as mormon groups, unions, fraternal or athletic groups, or [...] place to sleep or slept in a usp (including now)? No 12/03/2023 Personal Safety Answer Date Recorded Have you ever been in or are you currently in a harmful physical or emotional relationship or is someone making you feel afraid or unsafe? 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
--- OUTSIDE RECORDS SUMMARY | 2024-12-21 16:57 | XMS_ITS | Clinical Summary ---
Author Organization [facility] Address [facility] [place] [address] Care Team Providers Care Top Lift Compresser Name Role Phone Nuris Berger Primary Care Provider Allergies No known active allergies Medications albuterol [...] Comments Blood Pressure 120/62 09/04/2021 8:52 AM TEST DEVELOPMENT ENGINEER Pulse 82 09/04/2021 8:52 AM TEST DEVELOPMENT ENGINEER Temperature 36.3 C (97.4 F) 09/04/2021 8:52 AM TEST DEVELOPMENT ENGINEER Respiratory Rate 16 09/04/2021 8:52 AM TEST DEVELOPMENT ENGINEER Oxygen Saturation 97% 09/04/2021 8:52 AM TEST DEVELOPMENT ENGINEER Inhaled Oxygen Concentration - - Weight 64.4 kg (142 lb) 09/04/2021 8:52 AM TEST DEVELOPMENT ENGINEER Height 172.7 cm (5' 8 ) 09/04/2021 8:52 AM TEST DEVELOPMENT ENGINEER Body Mass Index 21.59 09/04/2021 8:52 AM TEST DEVELOPMENT ENGINEER Plan of Treatment Health Maintenance Due Date [...] complete this topic Insurance [employer] Care Teams Top Lift Compresser Relationship Specialty Start Date End Date Nuris Berger PA [address] [place] [address] PCP - General PHYSICIAN CALL MANAGER 06/09/21
--- OUTSIDE RECORDS SUMMARY | 2024-12-21 16:57 | XMS_ITS | Clinical Summary ---
Author Organization [facility] Address [address] [place] [address] Care Team Providers Care Puff Iron Operator Name Role Phone Nuris Berger PA-C Primary Care Provider [phone] Source Comments [facility],non-owned Affiliates and Associated Physician Practices is amultiple site organization consisting of ambulatory clinics and hospital sitesin [place], [place], [place] and [place]. This disclosure is being madepursuant to the Care Everywhere program and may not contain all information available regarding this patient. Last updated 18.[facility] Allergies Active Allergy Reactions Criticality Noted Date [...] tablet 06/17/2023 Active ergocalciferol (Drisdol) 1.25 MG (90170 UT) capsule Take 1 (one) capsule by [...] 11 07/21/2024 Active trimethoprim-poly myxin B (Polytrim) 61087-8.1 UNIT/ML-% ophthalmic solution Instill 1 (one) drop [...] Reviewed options for assistance with cessation. Reviewed longterm sequela associated with smoking. Pt declines assistance [...] polyp 05/20/2019 Overview (12/24/2020): Colonoscopy 01/29/2012 at [facility]--->2021 Last Assessment & Plan: Recvd colonoscopy [...] Description 12/13/2024 9:15 AM CDT Office [facility] - Ophthalmology [address] [place] [phone] Louis Hansen MD H/O cornea transplant (Primary Dx); Pseudophakia 12/13/2024 Travel 12/01/2024 8:30 AM CDT Clinical Support [facility] - Ophthalmology [address] [place] [phone] Tyrel Velez MD 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 (Primary Dx) 12/01/2024 8:25 AM CDT Clinical Support [facility] - Ophthalmology [address] [place] [phone] Tyrel Velez MD 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 (Primary Dx) 12/01/2024 8:20 AM CDT Office Visit [facility] - Ophthalmology [address] [place] [phone] Tyrel Velez MD 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 (Primary Dx); H/O cornea transplant; Central corneal opacity, left 12/01/2024 8:15 AM CDT Clinical Support [facility] - Ophthalmology [address] [place] [phone] Tyrel Velez MD 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 (Primary [...] Comments Blood Pressure 128/70 08/26/2023 12:43 PM PANTS BUSHELER Pulse 65 08/26/2023 12:43 PM PANTS BUSHELER Temperature 35.9 C (96.7 F) 08/26/2023 12:34 PM PANTS BUSHELER Respiratory Rate 14 08/26/2023 12:43 PM PANTS BUSHELER Oxygen Saturation 98% 08/26/2023 12:34 PM PANTS BUSHELER Inhaled Oxygen Concentration - - Weight 64.9 kg (143 lb) 08/26/2023 9:01 AM PANTS BUSHELER Height 172.7 cm (5' 8 ) 08/26/2023 9:01 AM PANTS BUSHELER Body Mass Index 21.74 08/26/2023 9:01 AM PANTS BUSHELER Plan of Treatment Upcoming Encounters Date Type Department Care Team (Late st Contact Info) Description 04/18/2025 9:15 AM CDT Office Visit [facility] - Ophthalmology [address] [place] [phone] Louis Hansen MD [address] [facility] [place] [phone] 08/07/2025 8:40 AM PANTS BUSHELER Office Visit [facility] - Ophthalmology [address] [place] [phone] Tyrel Velez MD [address] [place] [phone] Health Maintenance Due Date Last Done Comments [...] this topic Medical Devices Implanted Type Area Cloth Layer Device Identifier Shelf Expiration Date Model / Serial / Lot Drain Glcm Thk.9mm Blnt Tpr med Flxb - [id number] Implanted:Qty: 1 on 05/04/2018 by Tyrel Velez MD at [facility] Left: Eye [employer] 03/15/2020 7 / [id number] / [id number] Graft Tissue Ttplst Sclr .8x.5cm Lopro - [id number] Implanted:Qty: 1 on 05/04/2018 by Tyrel Velez MD at [facility] Left: Eye [employer] 01/17/2023 [id number] / [id number] / [id number] Impl Opth 250sq Mm Brvldt Magaly 1 Qdrnt - [id number] Implanted:Qty: 1 on 06/16/2023 by Tyrel Velez MD at [facility] Left: Eye [employer] 01/09/2024 [id number] / [id number] / Graft Tissue Ttpl Ioptch Sclr .8x.5cm - [id number] Implanted:Qty: 1 on 06/16/2023 by Tyrel Velez MD at [facility] Left: Eye [employer] 09/19/2027 [id number] / [id number] / Graft Tissue Ttpl Ioptch Sclr .8x.5cm - [id number] Implanted:Qty: 1 on 06/16/2023 by Tyrel Velez MD at [facility] Left: Eye [employer] 09/19/2027 [id number] / [id number] / J Luis Cornea - [id number] Implanted:Qty: 1 on 08/26/2023 by Louis Hansen MD at [facility] Left: Eye Mid [employer]ha Transplant 09/05/2023 [id number] / 00 / [id number] Description:Product Numb:[id number] EXP:09-05-2023 DIN:[id number] Advance Directives * Full Code (Latest Code Status on File) Date Activated Date Inactivated Comments 05/04/2018 11:35 AM 05/04/2018 1:21 PM * Full Code Date Activated Date Inactivated Comments 05/04/2018 7:43 AM 05/04/2018 11:35 AM Care Teams Puff Iron Operator Relationship Specialty Start Date End Date Nuris Berger PA-C PCP - General 02/13/20
--- OUTSIDE RECORDS SUMMARY | 2024-12-21 16:57 | XMS_ITS | Clinical Summary ---
Author Organization [facility] [address] [facility] Address [address] [place] [address] Care Team Providers Care Bottling Line Attendant Name Role Phone Nuris Berger Primary Care Provider [phone] Jonatan Stokes MD Unavailable [phone] Irma Bajwa MD Unavailable [phone] Allergies Active Allergy Reactions Criticality Noted Date [...] 11/19/2024 Assessment & Plan (11/19/2024 11:45 PM CHEMICAL PUMPER): Encouraged healthy lifestyle, good nutrition and exercise. Encouraged Calcium and Vitamin D and weight bearing exercise for bone health. Reviewed immunizations Reviewed age appropirate screenings. BMI 23.0-23.9, adult 06/20/2024 Assessment & Plan (10/30/2024 8:57 AM CHEMICAL PUMPER): Weight/BMI is in healthy range. Continue healthy lifestyle to maintain. Assessment & Plan (06/20/2024 7:44 AM CDT): Weight/BMI is in healthy range. Continue healthy lifestyle to maintain. Vitamin D deficiency 11/24/2023 Assessment & Plan (11/19/2024 11:45 PM CHEMICAL PUMPER): Supplement Assessment & Plan (05/20/2024 7:36 PM CDT): Supplement Fatigue 12/12/2022 Assessment & Plan (05/20/2024 7:37 PM CDT): Probably multifactorial. Check labs and followup to re-evaluate Assessment & Plan (11/24/2023 10:35 AM CHEMICAL PUMPER): Probably multifactorial. Check labs and followup to [...] 01/16/2022 Assessment & Plan (11/19/2024 11:44 PM CHEMICAL PUMPER): Chronic hiccups for 5+ years Has been [...] to the ER. ER recommended referral to [facility] but patient states he can't go to [...] weeks Assessment & Plan (11/24/2023 10:34 AM CHEMICAL PUMPER): Patient has persistent chronic hiccups that come [...] monitor Assessment & Plan (08/15/2023 5:01 PM CHEMICAL PUMPER): Chronic hiccups for years. Has tried multiple interventions along with multiple workups from specialists including Neurology pulmonology and GI. Continue current regimen. Stressed importance of limiting water intake when he has the hiccups spells as this has been leading to hyponatremia requiring hospitalization. Assessment & Plan (08/11/2023 8:45 AM CHEMICAL PUMPER): Patient with chronic hiccups. Have had difficulty [...] levels. Assessment & Plan (08/15/2022 6:45 PM CHEMICAL PUMPER): Patient has consulted with most multiple specialists [...] hiccups. Assessment & Plan (08/15/2023 5:02 PM CHEMICAL PUMPER): Chronic hiccups for years. Has tried multiple interventions along with multiple workups from specialists including Neurology pulmonology and GI. Continue current regimen. Stressed importance of limiting water intake when he has the hiccups spells as this has been leading to hyponatremia requiring hospitalization. Assessment & Plan (08/11/2023 8:46 AM CHEMICAL PUMPER): Hyponatremia secondary to water intake with chronic [...] 07/14/2019 Assessment & Plan (11/19/2024 11:44 PM CHEMICAL PUMPER): Continue PPI p.r.n. Assessment & Plan (05/20/2024 7:35 PM CDT): Continue pantoprazole p.r.n. Assessment & Plan (11/24/2023 10:33 AM CHEMICAL PUMPER): Continue pantoprazole p.r.n. Assessment & Plan (04/08/2023 8:48 PM CDT): Continue PPI p.r.n. Assessment & Plan (12/12/2022 9:43 PM CDT): Insert PPI Assessment & Plan (08/15/2022 6:45 PM CHEMICAL PUMPER): Continue PPI prn Assessment & Plan (02/09/2021 8:17 PM CDT): Continue PPI Assessment & Plan (07/29/2020 7:33 AM CHEMICAL PUMPER): Continue PPI Assessment & Plan (03/27/2020 8:01 AM CDT): Dr. Stokes changed him from omeprazole to Pantoprazole for the hiccups. Pt hasn't noted any difference in GERD sxs (still well controlled) or hiccups. Assessment & Plan (09/26/2019 7:38 AM CHEMICAL PUMPER): Continue PPI Assessment & Plan (07/14/2019 8:46 AM CDT): Discussed GERD at length including anatomy, behavioral changes (raise HOB, meal timings), dietary changes and medication options. Reviewed risks, benefits alternatives, side effects and proper use. Followup if sxs worsen or has hematochezia or hematemeis. Start PPI Chronic obstructive pulmonary disease 06/26/2019 Overview (06/26/2019): Noted on 06/2019 LDCT Assessment & Plan (11/19/2024 11:44 PM CHEMICAL PUMPER): Patient with allergies and COPD. Continue Singulair albuterol and Symbicort. Follows with Dr. Valdes. Assessment & Plan (05/20/2024 7:35 PM CDT): Continue per Dr. Valdes. Continue with his Symbicort and albuterol inhalers. Low-dose CT will be scheduled for June 16, 2024. Assessment & Plan (11/24/2023 10:33 AM CHEMICAL PUMPER): COPD. 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 Assessment & Plan (04/08/2023 8:48 PM CDT): Encouraged smoking cessation. Continue per Dr. Hammond pulmonology. He is on albuterol Symbicort and Singulair Assessment & Plan (12/12/2022 9:43 PM CDT): Stop smoking. Continue per Pulmonary. Continue Symbicort Singulair and albuterol. Continue monitoring low-dose CTs as instructed Assessment & Plan (08/15/2022 6:44 PM CHEMICAL PUMPER): Stop smoking. Continue current plan per Pulmonary Assessment & Plan (08/01/2021 9:34 PM CHEMICAL PUMPER): Continue per Pulmonary Dr. Valdes Assessment & Plan (02/09/2021 8:15 PM CDT): Stop smoking. Continue per Dr. Valdes Assessment & Plan (07/29/2020 7:32 AM CHEMICAL PUMPER): Continue per Pulm Assessment & Plan (03/27/2020 8:00 AM CDT): Stop smoking. He declines starting inhalers or referral to Pulmonary Assessment & Plan (09/26/2019 10:27 PM CHEMICAL PUMPER): This is a significant, separately identifiable problem [...] order Assessment & Plan (07/29/2020 7:33 AM CHEMICAL PUMPER): Needs to repeat ---Dr. Valdes has already ordered Assessment & Plan (03/27/2020 8:00 AM CDT): 06/2019 LDCT Several 2-3mm nodules, probable benign LungRADs 2 --- repeat 06/2020 Assessment & Plan (09/26/2019 10:26 PM CHEMICAL PUMPER): 06/2019 LDCT Several 2-3mm nodules, probable benign LungRADs 2 --- repeat 06/2020 Hyperplastic rectal polyp 05/20/2019 Overview (05/20/2019): Colonoscopy 01/29/2012 at [facility]--->2021 Assessment & Plan (05/28/2019 7:33 PM CDT): Recvd colonoscopy and due to repeat in 2021 Hiatal hernia 05/20/2019 Mixed hyperlipidemia 05/20/2019 Assessment & Plan (11/19/2024 11:45 PM CHEMICAL PUMPER): Encouraged patient to follow low fat/low chol [...] 80 Assessment & Plan (11/24/2023 10:34 AM CHEMICAL PUMPER): Encouraged patient to follow low fat/low chol diet like the Mediterranean diet. Increase good fats in the diet. Increase exercise. Monitor labs as needed. Continue pravastatin 80 Assessment & Plan (08/15/2023 5:03 PM CHEMICAL PUMPER): Encouraged patient to follow low fat/low chol [...] Zetia Assessment & Plan (08/01/2021 9:33 PM CHEMICAL PUMPER): Encouraged patient to follow fat/low chol diet [...] statin Assessment & Plan (07/29/2020 7:34 AM CHEMICAL PUMPER): Encouraged patient to follow fat/low chol diet like the Mediterranean diet. Increase good fats in the diet. Increase exercise. Monitor labs as needed. Assessment & Plan (03/27/2020 8:02 AM CDT): Encouraged patient to continue low fat/low chol diet. Continue exercise. Increase good fats in the diet. Monitor labs as needed. Stable with zetia and pravastatin Assessment & Plan (09/26/2019 7:39 AM CHEMICAL PUMPER): Encouraged patient to continue low fat/low chol [...] change Assessment & Plan (08/15/2023 5:03 PM CHEMICAL PUMPER): Patient is legally blind. Continue with Ophthalmology Assessment & Plan (04/08/2023 8:47 PM CDT): No change Assessment & Plan (03/27/2020 8:02 AM CDT): No change Assessment & Plan (09/26/2019 7:39 AM CHEMICAL PUMPER): No change Assessment & Plan (05/28/2019 7:35 PM CDT): No change Cigarette smoker 05/20/2019 Assessment & Plan (08/11/2023 8:45 AM CHEMICAL PUMPER): Encouraged smoking cessation. Discussed 3 minutes. Reviewed options for assistance with cessation. Reviewed assisted sequela associated with smoking. Pt declines assistance at this time but may contact the office at anytime for further help as they desire. Assessment & Plan (04/08/2023 8:47 PM CDT): Encouraged smoking cessation. Discussed 3 minutes. Reviewed options for assistance with cessation. Reviewed assisted sequela associated with smoking. Pt declines assistance at this time but may contact the office at anytime for further help as they desire. Low-dose CT will be due in May. It is already scheduled Assessment & Plan (12/12/2022 9:42 PM CDT): Encouraged smoking cessation. Discussed 3 minutes. Reviewed options for assistance with cessation. Reviewed termite control servicer sequela associated with smoking. Pt declines assistance at this time but may contact the office at anytime for further help as they desire. Assessment & Plan (08/15/2022 6:44 PM CHEMICAL PUMPER): Encouraged smoking cessation. Discussed 3 minutes. Reviewed options for assistance with cessation. Reviewed assisted sequela associated with smoking. Pt declines assistance at this time but may contact the office at anytime for further help as they desire. Assessment & Plan (05/09/2022 8:19 PM CDT): Encouraged smoking cessation. Discussed 3 minutes. Reviewed options for assistance with cessation. Reviewed termite control servicer sequela associated with smoking. Pt declines assistance at this time but may contact the office at anytime for further help as they desire. Assessment & Plan (08/01/2021 9:33 PM CHEMICAL PUMPER): Encouraged smoking cessation. Discussed 3 minutes. Reviewed options for assistance with cessation. Reviewed termite control servicer sequela associated with smoking. Pt declines assistance at this time but may contact the office at anytime for further help as they desire. Assessment & Plan (05/17/2021 11:41 PM CDT): Encouraged smoking cessation. Discussed 3 minutes. Reviewed options for assistance with cessation. Reviewed termite control servicer sequela associated with smoking. Pt declines assistance at this time but may contact the office at anytime for further help as they desire. Assessment & Plan (03/12/2021 12:31 PM CDT): Encouraged smoking cessation. Discussed 3 minutes. Reviewed options for assistance with cessation. Reviewed termite control servicer sequela associated with smoking. He is slowing down. Offered assistance. May call if decides he wants help Assessment & Plan (07/29/2020 7:34 AM CHEMICAL PUMPER): Encouraged smoking cessation. Discussed 3 minutes. Reviewed options for assistance with cessation. Reviewed assisted sequela associated with smoking. Pt declines assistance at this time but may contact the office at anytime for further help as they desire. Assessment & Plan (03/27/2020 8:02 AM CDT): Encouraged smoking cessation. Discussed 3 minutes. Reviewed options for assistance with cessation. Reviewed termite control servicer sequela associated with smoking. Pt declines assistance at this time but may contact the office at anytime for further help as they desire. Assessment & Plan (09/26/2019 7:39 AM CHEMICAL PUMPER): Encouraged smoking cessation. Discussed 3 minutes. Reviewed options for assistance with cessation. Reviewed assisted sequela associated with smoking. Pt declines assistance at this time but may contact the office at anytime for further help as they desire. Assessment & Plan (07/14/2019 7:05 PM CDT): Encouraged smoking cessation. Discussed 3 minutes. Reviewed options for assistance with cessation. Reviewed assisted sequela associated with smoking. Pt declines assistance [...] 05/20/2019 Assessment & Plan (11/19/2024 11:45 PM CHEMICAL PUMPER): Pre-diabetes/hyperglycemia is a precursor to Dm. Stressed [...] diabetes. Assessment & Plan (11/24/2023 10:34 AM CHEMICAL PUMPER): Pre-diabetes/hyperglycemia is a precursor to Dm. Stressed importance of working on diet (decrease your simple sugars and one carbohydrate with each meal) and increase you exercise to achieve weight loss and this will help prevent you from progressing to diabetes. Assessment & Plan (08/15/2023 5:03 PM CHEMICAL PUMPER): Pre-diabetes/hyperglycemia is a precursor to Dm. Stressed [...] diabetes. Assessment & Plan (08/01/2021 9:33 PM CHEMICAL PUMPER): Pre-diabetes/hyperglycemia is a precursor to Dm. Stressed [...] diabetes. Assessment & Plan (07/29/2020 7:34 AM CHEMICAL PUMPER): Pre-diabetes is a precursor to Dm. Stressed [...] labs Assessment & Plan (09/26/2019 10:27 PM CHEMICAL PUMPER): This is a significant, separately identifiable problem [...] 11/24/2023 Assessment & Plan (11/24/2023 10:35 AM CHEMICAL PUMPER): Encouraged healthy lifestyle, good nutrition and exercise. Encouraged Calcium and Vitamin D and weight bearing exercise for bone health. Reviewed immunizations Reviewed age appropirate screenings. Need for influenza vaccination 08/15/2023 11/24/2023 Assessment & Plan (08/15/2023 5:04 PM CHEMICAL PUMPER): Flu vaccine updated in the office today BMI 22.0-22.9, adult 07/22/2023 Assessment & Plan (08/11/2023 8:12 AM CHEMICAL PUMPER): Weight/BMI is in healthy range. Continue healthy [...] 04/03/2023 Assessment & Plan (08/15/2022 6:45 PM CHEMICAL PUMPER): Flu updated in the office today BMI [...] test outpatient. Was referred to an outside certified orthotist. Encouraged to consider seeing a [facility] group of cardiologists so all of his providers are in the same system. He is in agreement. Referral made to Dr. Eduardo as he has multiple risk factors. BMI 23.0-23.9, adult 01/21/2022 Assessment & Plan (01/21/2022 11:10 AM CDT): Weight/BMI is in healthy range. Continue healthy lifestyle to maintain. BMI 21.0-21.9, adult 08/01/2021 Assessment & Plan (08/01/2021 7:28 AM CHEMICAL PUMPER): Weight/BMI is in healthy range. Continue healthy lifestyle to maintain. Medicare annual wellness visit, subsequent 08/01/2021 08/15/2022 Assessment & Plan (08/01/2021 9:34 PM CHEMICAL PUMPER): Encouraged healthy lifestyle, good nutrition and exercise. Encouraged Calcium and Vitamin D and weight bearing exercise for bone health. Reviewed immunizations. Reviewed age appropirate screenings. Medicare Wellness Documentation is completed within the chart Fatigue 05/17/2021 05/02/2022 Assessment & Plan (08/01/2021 9:34 PM CHEMICAL PUMPER): Probably multifactorial. Check labs and followup to [...] 024 Assessment & Plan (11/24/2023 10:34 AM CHEMICAL PUMPER): Weight/BMI is in healthy range. Continue healthy [...] 05/02/2022 Assessment & Plan (07/29/2020 7:34 AM CHEMICAL PUMPER): Probably multifactorial. Check labs and followup to re-evaluate Need for immunization against influenza 07/29/2020 11/24/2020 Assessment & Plan (07/29/2020 7:34 AM CHEMICAL PUMPER): Updated in office today BMI 22.0-22.9, adult 03/27/2020 024 Assessment & Plan (05/20/2024 7:37 PM CDT): Weight/BMI is in healthy range. Continue healthy lifestyle to maintain. Assessment & Plan (07/29/2020 7:34 AM CHEMICAL PUMPER): Weight/BMI is in healthy range. Continue healthy [...] 020 Assessment & Plan (09/26/2019 7:39 AM CHEMICAL PUMPER): Weight/BMI is in healthy range. Continue healthy lifestyle to maintain. Annual physical exam 09/26/2019 020 Assessment & Plan (09/26/2019 7:40 AM CHEMICAL PUMPER): Encouraged healthy lifestyle, good nutrition and exercise. Encouraged Calcium and Vitamin D and weight bearing exercise for bone health. Reviewed immunizations Reviewed age appropirate screenings. Influenza vaccine refused 09/26/2019 Assessment & Plan (09/26/2019 7:40 AM CHEMICAL PUMPER): Encouraged vaccine. Reviewed risks/ benefits. Patient refuses and accepts risks. Esophagitis determined by endoscopy 05/20/2019 05/02/2022 Gastritis 05/20/2019 05/02/2022 Essential (primary) hypertension 05/20/2019 05/20/2024 Assessment & Plan (11/24/2023 10:34 AM CHEMICAL PUMPER): Bp is stable/in acceptable range for any co-morbidities. Encouraged to limit sodium intake and exercise for weight control. Continue losartan 50 Assessment & Plan (08/15/2023 5:04 PM CHEMICAL PUMPER): Bp is stable/in acceptable range for any co-morbidities. Encouraged to limit sodium intake and exercise for weight control. Continue per Dr. Curtis Assessment & Plan (08/11/2023 8:45 AM CHEMICAL PUMPER): Bp is stable/in acceptable range for any [...] losartan Assessment & Plan (08/15/2022 6:44 PM CHEMICAL PUMPER): Bp is stable/in acceptable range for any [...] 50 Assessment & Plan (08/01/2021 9:33 PM CHEMICAL PUMPER): Bp is stable/in acceptable range for any [...] Losartan/HCTZ Assessment & Plan (07/29/2020 7:33 AM CHEMICAL PUMPER): Bp is stable/in acceptable range for any co-morbidities. Encouraged to limit sodium intake and exercise for weight control. Losartan and HCTZ Assessment & Plan (03/27/2020 8:00 AM CDT): Bp is stable/in acceptable range for any co-morbidities. Encouraged to limit sodium intake and exercise for weight control. Continue losartan/HCTZ Assessment & Plan (09/26/2019 7:38 AM CHEMICAL PUMPER): Bp is stable/in acceptable range for any [...] 01/21/2022 Assessment & Plan (08/01/2021 9:34 PM CHEMICAL PUMPER): Persistent hiccups. Has consulted with multiple providers [...] omeprazole Assessment & Plan (07/29/2020 7:32 AM CHEMICAL PUMPER): Continue per ENT/Pulm. He is responding to BID omeprazole. Will monitor Assessment & Plan (03/27/2020 7:59 AM CDT): Dr. Stokes started him on Pantoprazole. He hasn't noted much difference. Needs to followup to complete workup. Encouraged patient to call and make appointment. Assessment & Plan (09/26/2019 10:26 PM CHEMICAL PUMPER): This is a significant, separately identifiable problem that was evaluated and managed on the same day as the wellness exam Less frequent than in the past. Continue the PPI and monitor Rx sent to pharmacy. Assessment & Plan (08/24/2019 9:04 AM CHEMICAL PUMPER): Improving with the PPI. Continue PPI and [...] 2018 Assessment & Plan (08/24/2019 9:04 AM CHEMICAL PUMPER): Encouraged vaccine. Reviewed risks/ benefits. Patient refuses [...] Description 12/06/2024 9:30 AM CDT Office Visit [facility] Pulmonology [address] [place] [phone] Tasia Hoffman MD Chronic obstructive pulmonary disease, unspecified COPD type (HCC) (Primary Dx); Mild persistent asthma without complication; Non-seasonal allergic rhinitis due to other allergic trigger; Nicotine dependence, cigarettes, in remission 10/30/2024 9:00 AM CHEMICAL PUMPER Office Visit [facility] Family Medicine [address] [place] [address] Nuris Berger PA Annual physical exam (Primary Dx); Vitamin D deficiency; Mixed hyperlipidemia; Pre-diabetes; Chronic obstructive pulmonary disease, unspecified COPD type (HCC); Gastroesophageal reflux disease with esophagitis without hemorrhage; Chronic hiccups; BMI 23.0-23.9, adult 10/03/2024 8:56 AM CHEMICAL PUMPER - 10/03/2024 11:59 PM CHEMICAL PUMPER [facility] [place] [address] [place] [address] Pulmonary nodules Discharge Disposition: Discharge to home [...] Name Comments Blindness Father Heart attack Father [place] Heart disease Father No Known Problems Mother Relation Name Status Comments Father Mother Social History Tobacco Use Types Packs/Day Years Used Date Smoking Tobacco: Former Cigarettes 0.8 40 0 09/1981 - 09/2021 Smokeless Tobacco: Never Tobacco Cessation:Counseling Given: Not Answered Alcohol Use Standard Drinks/Week Comments Yes 0 (1 standard drink = 0.6 oz pur e alcohol) social [facility] Utilities Answer Date Recorded In the past 12 months has th e [employer], gas, oil, or water [employer] threatened to shut off services in your [...] often do you attend chur ch or jewish services? Patient declined 12/03/2023 Do you belong to any clubs o r organizations such as taoism groups, unions, fraternal or athletic groups, or [...] place to sleep or slept in a detention (including now)? No 12/03/2023 Personal Safety Answer Date Recorded Have you ever been in or are you currently in a harmful physical or emotional relationship or is someone making you feel afraid or unsafe? Denies 08/01/2024 Sex and Gender Information Value Date Recorded Sex Assigned at Not on file Legal Sex Male 12:22 AM CHEMICAL PUMPER Gender Identity Not on file Sexual Orientation [...] Diagnosis Comments TSH Routine 10/03/2024 10:42 AM CHEMICAL PUMPER Fatigue, unspecified type LIPID PANEL Routine 10/03/2024 10:42 AM CHEMICAL PUMPER Mixed hyperlipidemia HEMOGLOBIN A1C Routine 10/03/2024 10:42 AM CHEMICAL PUMPER Pre-diabetes COMPREHENSIVE METABOLIC PANEL Routine 10/03/2024 10:42 AM CHEMICAL PUMPER Hyponatremia CBC WITH AUTO DIFFERENTIAL Routine 10/03/2024 10:42 AM CHEMICAL PUMPER Fatigue, unspecified type CT CHEST WO CONTRAST F/U LUNG SCREEN PROTOCOL Schedule Routine, Read Routine (OP Routine) 10/03/2024 9:25 AM CHEMICAL PUMPER Pulmonary nodules PSA SCREEN Routine 12/16/2022 12:39 PM CDT Prostate cancer screening HEPATITIS PANEL, ACUTE Routine 05/03/2022 5:40 AM CDT HM COLONOSCOPY Routine 07/14/2021 from Last 3 Months or Most Recently Relevant to Health Maintenance Results * (ABNORMAL) CBC with auto differential (10/03/2024 10:42 AM CHEMICAL PUMPER) WBC 7.4 3.8 - 10.8 Thousand/u L [...] t Renato Blood 10/03/2024 10:4 2 AM CHEMICAL PUMPER 10/03/2024 10:49 AM CHEMICAL PUMPER Narrative [facility] - 10/03/2024 11:53 PM CHEMICAL PUMPER FASTING:YES FASTING: YES Result Jessica ROBLES LAB BLOOD ORDERABLES Final Result Performing Organization Address [facility] de Phone Number [facility] [address] [place] [address] * TSH (10/03/2024 10:42 AM CHEMICAL PUMPER) Pathologist [facility] TSH 1.29 0.40 - 4.50 mIU/L [facility] Blood 10/03/2024 10:4 2 AM CHEMICAL PUMPER 10/03/2024 10:49 AM CHEMICAL PUMPER Narrative [facility] - 10/03/2024 11:53 PM CHEMICAL PUMPER FASTING:YES FASTING: YES Result Jessica ROBLES LAB BLOOD ORDERABLES Final Result Performing Organization Address [facility] Phone Number [facility] [address] [place] [address] * (ABNORMAL) Hemoglobin A1c (10/03/2024 10:42 AM CHEMICAL PUMPER) Pathologist [facility] Hgb A1C 5.7(H) <5.7 % of total Hgb [facility] Comment: For someone without known [...] for children. Blood 10/03/2024 10:4 2 AM CHEMICAL PUMPER 10/03/2024 10:49 AM CHEMICAL PUMPER Narrative [facility] - 10/03/2024 11:53 PM CHEMICAL PUMPER FASTING:YES FASTING: YES Result Jessica ROBLES LAB BLOOD ORDERABLES Final Result Performing Organization Address [facility]/ZIP Co de Phone Number DMITRI Age [address] LearningSt [place] [address] [place] [address] * Lipid panel (10/03/2024 10:42 AM CHEMICAL PUMPER) Pathologist [facility] Cholesterol 152 <200 mg/dL Dmitri [employer] AGPorsche Gross HDL 52 > OR = 40 mg/dL Dmitri [employer] AGPorsche mary Gross Triglycerides 72 <150 mg/dL Age of LearningS mary [place] LDL 84 mg/dL (calc) Age of LearningPorsche hernandez Renato Comment: Reference range: <100 Desirable range <100 mg/dL for primary prevention; <70 mg/dL for patients with CHD or diabetic patients with > or = 2 CHD risk factors. LDL-C is now calculated using the Jacob calculation, which is a validated novel method providing better accuracy than the Friedewald equation in the estimation of LDL-C. Adal BERRIOS et al. NICOLE. 2013;310(19): 3923-3462 (http://education.Formarum/faq/THZ051) Chol/HDL ratio 2.9 <5.0 (calc) Dmitri [employer] AGPorsche mary Gross Non-HDL, (LDL+VLDL) 100 <130 mg/dL (calc) Age of LearningPorsche hernandez Renato Comment: For patients with diabetes plus 1 major ASCVD risk factor, treating to a non-HDL-C goal of <100 mg/dL (LDL-C of <70 mg/dL) is considered a therapeutic option. Blood 10/03/2024 10:4 2 AM CHEMICAL PUMPER 10/03/2024 10:49 AM CHEMICAL PUMPER Narrative [facility] - 10/03/2024 11:53 PM CHEMICAL PUMPER FASTING:YES FASTING: YES Nuris ROBLES LAB BLOOD ORDERABLES Final Result Performing Organization Address City/[facility]/ZIP Co de Phone Number DMITRI [address] [place] [address] [place] [id number] * (ABNORMAL) Comprehensive metabolic panel (10/03/2024 10:42 AM CHEMICAL PUMPER) Pathologist [facility] Glucose 84 65 - 99 mg/dL Dmitri [employer] mary Gross Comment: Fasting reference interval BUN 12 7 - 25 mg/dL Dmitri [employer] Creatinine 0.94 0.70 - 1.35 mg/dL Dmitri Solorzano-oPrsche Gross eGFR 92 > OR = 60 [...] phos 53 35 - 144 U/L Dmitri SolorzanoPorsceh Gross AST 8(L) 10 - 35 U/L Dmitri Solorzano-Porsche Gross ALT (SGPT) 6(L) 9 - 46 U/L Dmitri SolorzanoPorsche Gross Blood 10/03/2024 10:4 2 AM CHEMICAL PUMPER 10/03/2024 10:49 AM CHEMICAL PUMPER Narrative [facility] - 10/03/2024 11:53 PM CHEMICAL PUMPER FASTING:YES FASTING: YES us Nuris [facility] BLOOD ORDERABLES Final Result DMITRI SolorzanoSt Gross [address] [place] [address] * CT Chest WO Contrast F/U Lung Screen Protocol (10/03/2024 9:25 AM CHEMICAL PUMPER) Anatomical Region Laterality Modality Chest N/A Computed Tomogra phy 10/03/2024 7:11 PM CHEMICAL PUMPER Narrative 10/03/2024 7:17 PM CHEMICAL PUMPER EXAM DESCRIPTION: CT CHEST WO CONTRAST F/U [...] Estuardo Ortiz M.D. KT T: Report ID: [id number] Reading Location: [place] [address] us Tasia Hoffman MD IM CT PROCEDURES [...] BLOOD ORDERABLES Final Result Performing Organization Address [facility]/ZIP Co de Phone Number [address] [place] [address] * Hepatitis panel, acute (05/03/2022 5:40 AM CDT) Hep A IgM Nonreactive Nonreactive [facility] Comment: Interpretive Data: If Hep A IgM Ab is reported as Equivocal, a new sample should be drawn in two weeks for testing. Current interpretive data was last revised on 19. Hep B core IgM Nonreactive Nonreactive [facility] Comment: Interpretive Data If HepB Core IgM Ab is reported as Equivocal, a new sample should be drawn in two weeks for testing. Current interpretive data was last revised on 19. Hep C Ab Nonreactive Nonreactive [facility] Comment: Interpretive Data Nonreactive: Antibodies [...] last revised on 2019. HepBsAg Nonreactive Nonreactive [facility] Blood 05/03/2022 5:40 AM CDT 05/03/2022 6:36 AM CDT Pamela Gongora DO LAB MICROBIOLOGY - GENERAL OR DERABLES Final Result Performing Organization Address City/[facility]/ZIP Co de Phone Number [address] [place] [address] * (ABNORMAL) HM COLONOSCOPY (07/14/2021) Jame Mg MD HEALTH MAINTENANCE Edited Result - Final from Last 3 Months or Most Recently Relevant to Health Maintenance Insurance AET MEDICARE GOLD Advance Directives For more information, please contact: [phone] * Full Code (Latest Code Status on [...] 10:34 PM 11/16/2022 9:56 PM Care Teams Bottling Line Attendant Relationship Specialty Start Date End Date Nuris Berger PA [address] [facility] [address] [place] [address] PCP - General Internal Medicine 12/28/18 Jonatan Stokes MD [address] [place] [address] Consulting Physician Otolaryngology 03/27/20 Irma Bajwa MD [address] [place] [address] Consulting Physician Neurology 05/07/22
--- OUTSIDE RECORDS SUMMARY | 2024-12-21 16:57 | XMS_ITS | Referral Summary ---
Author Organization [facility] [place] [address] [facility] Address [address] [place] [address] Care Team Providers Care Painter Spray Name Role Phone Nuris Berger Primary Care Provider [phone] Jonatan Stokes MD Unavailable [phone] Irma Bajwa MD Unavailable [phone] Encounters Date Type Department Care Team Description 12/06/2024 9:30 AM CDT Office Visit [facility] Pulmonology [address] [place] [address] Tasia Hoffman MD Chronic obstructive pulmonary disease, unspecified COPD type (HCC) (Primary Dx); Mild persistent asthma without complication; Non-seasonal allergic rhinitis due to other allergic trigger; Nicotine dependence, cigarettes, in remission 10/30/2024 9:00 AM GOVERNMENT AFFAIRS DIRECTOR Office Visit [facility] Family Medicine [address] [place] [address] Nuris Berger PA Annual physical exam (Primary Dx); Vitamin D deficiency; Mixed hyperlipidemia; Pre-diabetes; Chronic obstructive pulmonary disease, unspecified COPD type (HCC); Gastroesophageal reflux disease with esophagitis without hemorrhage; Chronic hiccups; BMI 23.0-23.9, adult 10/03/2024 8:56 AM GOVERNMENT AFFAIRS DIRECTOR - 10/03/2024 11:59 PM GOVERNMENT AFFAIRS DIRECTOR Hospital Encounter [facility] [address] [place] [address] Pulmonary nodules Discharge Disposition: Discharge to home [...] 11/19/2024 Assessment & Plan (11/19/2024 11:45 PM GOVERNMENT AFFAIRS DIRECTOR): Encouraged healthy lifestyle, good nutrition and exercise. Encouraged Calcium and Vitamin D and weight bearing exercise for bone health. Reviewed immunizations Reviewed age appropirate screenings. BMI 23.0-23.9, adult 06/20/2024 Assessment & Plan (10/30/2024 8:57 AM GOVERNMENT AFFAIRS DIRECTOR): Weight/BMI is in healthy range. Continue healthy lifestyle to maintain. Assessment & Plan (06/20/2024 7:44 AM CDT): Weight/BMI is in healthy range. Continue healthy lifestyle to maintain. Vitamin D deficiency 11/24/2023 Assessment & Plan (11/19/2024 11:45 PM GOVERNMENT AFFAIRS DIRECTOR): Supplement Assessment & Plan (05/20/2024 7:36 PM CDT): Supplement Fatigue 12/12/2022 Assessment & Plan (05/20/2024 7:37 PM CDT): Probably multifactorial. Check labs and followup to re-evaluate Assessment & Plan (11/24/2023 10:35 AM GOVERNMENT AFFAIRS DIRECTOR): Probably multifactorial. Check labs and followup to [...] 01/16/2022 Assessment & Plan (11/19/2024 11:44 PM GOVERNMENT AFFAIRS DIRECTOR): Chronic hiccups for 5+ years Has been [...] to the ER. ER recommended referral to [facility] but patient states he can't go to [...] weeks Assessment & Plan (11/24/2023 10:34 AM GOVERNMENT AFFAIRS DIRECTOR): Patient has persistent chronic hiccups that come [...] monitor Assessment & Plan (08/15/2023 5:01 PM GOVERNMENT AFFAIRS DIRECTOR): Chronic hiccups for years. Has tried multiple interventions along with multiple workups from specialists including Neurology pulmonology and GI. Continue current regimen. Stressed importance of limiting water intake when he has the hiccups spells as this has been leading to hyponatremia requiring hospitalization. Assessment & Plan (08/11/2023 8:45 AM GOVERNMENT AFFAIRS DIRECTOR): Patient with chronic hiccups. Have had difficulty [...] levels. Assessment & Plan (08/15/2022 6:45 PM GOVERNMENT AFFAIRS DIRECTOR): Patient has consulted with most multiple specialists [...] hiccups. Assessment & Plan (08/15/2023 5:02 PM GOVERNMENT AFFAIRS DIRECTOR): Chronic hiccups for years. Has tried multiple interventions along with multiple workups from specialists including Neurology pulmonology and GI. Continue current regimen. Stressed importance of limiting water intake when he has the hiccups spells as this has been leading to hyponatremia requiring hospitalization. Assessment & Plan (08/11/2023 8:46 AM GOVERNMENT AFFAIRS DIRECTOR): Hyponatremia secondary to water intake with chronic [...] 07/14/2019 Assessment & Plan (11/19/2024 11:44 PM GOVERNMENT AFFAIRS DIRECTOR): Continue PPI p.r.n. Assessment & Plan (05/20/2024 7:35 PM CDT): Continue pantoprazole p.r.n. Assessment & Plan (11/24/2023 10:33 AM GOVERNMENT AFFAIRS DIRECTOR): Continue pantoprazole p.r.n. Assessment & Plan (04/08/2023 8:48 PM CDT): Continue PPI p.r.n. Assessment & Plan (12/12/2022 9:43 PM CDT): Insert PPI Assessment & Plan (08/15/2022 6:45 PM GOVERNMENT AFFAIRS DIRECTOR): Continue PPI prn Assessment & Plan (02/09/2021 8:17 PM CDT): Continue PPI Assessment & Plan (07/29/2020 7:33 AM GOVERNMENT AFFAIRS DIRECTOR): Continue PPI Assessment & Plan (03/27/2020 8:01 AM CDT): Dr. Stokes changed him from omeprazole to Pantoprazole for the hiccups. Pt hasn't noted any difference in GERD sxs (still well controlled) or hiccups. Assessment & Plan (09/26/2019 7:38 AM GOVERNMENT AFFAIRS DIRECTOR): Continue PPI Assessment & Plan (07/14/2019 8:46 AM CDT): Discussed GERD at length including anatomy, behavioral changes (raise HOB, meal timings), dietary changes and medication options. Reviewed risks, benefits alternatives, side effects and proper use. Followup if sxs worsen or has hematochezia or hematemeis. Start PPI Chronic obstructive pulmonary disease 06/26/2019 Overview (06/26/2019): Noted on 06/2019 LDCT Assessment & Plan (11/19/2024 11:44 PM GOVERNMENT AFFAIRS DIRECTOR): Patient with allergies and COPD. Continue Singulair albuterol and Symbicort. Follows with Dr. Valdes. Assessment & Plan (05/20/2024 7:35 PM CDT): Continue per Dr. Valdes. Continue with his Symbicort and albuterol inhalers. Low-dose CT will be scheduled for June 16, 2024. Assessment & Plan (11/24/2023 10:33 AM GOVERNMENT AFFAIRS DIRECTOR): COPD. Continue per Dr. Hammond his office assistance Continue Symbicort Singulair and albuterol p.r.n. Assessment & Plan (04/08/2023 8:48 PM CDT): Encouraged smoking cessation. Continue per Dr. Hammond pulmonology. He is on albuterol Symbicort and Singulair Assessment & Plan (12/12/2022 9:43 PM CDT): Stop smoking. Continue per Pulmonary. Continue Symbicort Singulair and albuterol. Continue monitoring low-dose CTs as instructed Assessment & Plan (08/15/2022 6:44 PM GOVERNMENT AFFAIRS DIRECTOR): Stop smoking. Continue current plan per Pulmonary Assessment & Plan (08/01/2021 9:34 PM GOVERNMENT AFFAIRS DIRECTOR): Continue per Pulmonary Dr. Valdes Assessment & Plan (02/09/2021 8:15 PM CDT): Stop smoking. Continue per Dr. Valdes Assessment & Plan (07/29/2020 7:32 AM GOVERNMENT AFFAIRS DIRECTOR): Continue per Pulm Assessment & Plan (03/27/2020 8:00 AM CDT): Stop smoking. He declines starting inhalers or referral to Pulmonary Assessment & Plan (09/26/2019 10:27 PM GOVERNMENT AFFAIRS DIRECTOR): This is a significant, separately identifiable problem [...] order Assessment & Plan (07/29/2020 7:33 AM GOVERNMENT AFFAIRS DIRECTOR): Needs to repeat ---Dr. Valdes has already ordered Assessment & Plan (03/27/2020 8:00 AM CDT): 06/2019 LDCT Several 2-3mm nodules, probable benign LungRADs 2 --- repeat 06/2020 Assessment & Plan (09/26/2019 10:26 PM GOVERNMENT AFFAIRS DIRECTOR): 06/2019 LDCT Several 2-3mm nodules, probable benign LungRADs 2 --- repeat 06/2020 Hyperplastic rectal polyp 05/20/2019 Overview (05/20/2019): Colonoscopy 01/29/2012 at [facility]--->2021 Assessment & Plan (05/28/2019 7:33 PM CDT): Recvd colonoscopy and due to repeat in 2021 Hiatal hernia 05/20/2019 Mixed hyperlipidemia 05/20/2019 Assessment & Plan (11/19/2024 11:45 PM GOVERNMENT AFFAIRS DIRECTOR): Encouraged patient to follow low fat/low chol [...] 80 Assessment & Plan (11/24/2023 10:34 AM GOVERNMENT AFFAIRS DIRECTOR): Encouraged patient to follow low fat/low chol diet like the Mediterranean diet. Increase good fats in the diet. Increase exercise. Monitor labs as needed. Continue pravastatin 80 Assessment & Plan (08/15/2023 5:03 PM GOVERNMENT AFFAIRS DIRECTOR): Encouraged patient to follow low fat/low chol [...] Zetia Assessment & Plan (08/01/2021 9:33 PM GOVERNMENT AFFAIRS DIRECTOR): Encouraged patient to follow fat/low chol diet [...] statin Assessment & Plan (07/29/2020 7:34 AM GOVERNMENT AFFAIRS DIRECTOR): Encouraged patient to follow fat/low chol diet like the Mediterranean diet. Increase good fats in the diet. Increase exercise. Monitor labs as needed. Assessment & Plan (03/27/2020 8:02 AM CDT): Encouraged patient to continue low fat/low chol diet. Continue exercise. Increase good fats in the diet. Monitor labs as needed. Stable with zetia and pravastatin Assessment & Plan (09/26/2019 7:39 AM GOVERNMENT AFFAIRS DIRECTOR): Encouraged patient to continue low fat/low chol [...] change Assessment & Plan (08/15/2023 5:03 PM GOVERNMENT AFFAIRS DIRECTOR): Patient is legally blind. Continue with Ophthalmology Assessment & Plan (04/08/2023 8:47 PM CDT): No change Assessment & Plan (03/27/2020 8:02 AM CDT): No change Assessment & Plan (09/26/2019 7:39 AM GOVERNMENT AFFAIRS DIRECTOR): No change Assessment & Plan (05/28/2019 7:35 PM CDT): No change Cigarette smoker 05/20/2019 Assessment & Plan (08/11/2023 8:45 AM GOVERNMENT AFFAIRS DIRECTOR): Encouraged smoking cessation. Discussed 3 minutes. Reviewed options for assistance with cessation. Reviewed detention sequela associated with smoking. Pt declines assistance at this time but may contact the office at anytime for further help as they desire. Assessment & Plan (04/08/2023 8:47 PM CDT): Encouraged smoking cessation. Discussed 3 minutes. Reviewed options for assistance with cessation. Reviewed detention sequela associated with smoking. Pt declines assistance at this time but may contact the office at anytime for further help as they desire. Low-dose CT will be due in May. It is already scheduled Assessment & Plan (12/12/2022 9:42 PM CDT): Encouraged smoking cessation. Discussed 3 minutes. Reviewed options for assistance with cessation. Reviewed rat exterminator sequela associated with smoking. Pt declines assistance at this time but may contact the office at anytime for further help as they desire. Assessment & Plan (08/15/2022 6:44 PM GOVERNMENT AFFAIRS DIRECTOR): Encouraged smoking cessation. Discussed 3 minutes. Reviewed options for assistance with cessation. Reviewed rat exterminator sequela associated with smoking. Pt declines assistance at this time but may contact the office at anytime for further help as they desire. Assessment & Plan (05/09/2022 8:19 PM CDT): Encouraged smoking cessation. Discussed 3 minutes. Reviewed options for assistance with cessation. Reviewed detention sequela associated with smoking. Pt declines assistance at this time but may contact the office at anytime for further help as they desire. Assessment & Plan (08/01/2021 9:33 PM GOVERNMENT AFFAIRS DIRECTOR): Encouraged smoking cessation. Discussed 3 minutes. Reviewed options for assistance with cessation. Reviewed detention sequela associated with smoking. Pt declines assistance at this time but may contact the office at anytime for further help as they desire. Assessment & Plan (05/17/2021 11:41 PM CDT): Encouraged smoking cessation. Discussed 3 minutes. Reviewed options for assistance with cessation. Reviewed rat exterminator sequela associated with smoking. Pt declines assistance at this time but may contact the office at anytime for further help as they desire. Assessment & Plan (03/12/2021 12:31 PM CDT): Encouraged smoking cessation. Discussed 3 minutes. Reviewed options for assistance with cessation. Reviewed rat exterminator sequela associated with smoking. He is slowing down. Offered assistance. May call if decides he wants help Assessment & Plan (07/29/2020 7:34 AM GOVERNMENT AFFAIRS DIRECTOR): Encouraged smoking cessation. Discussed 3 minutes. Reviewed options for assistance with cessation. Reviewed detention sequela associated with smoking. Pt declines assistance at this time but may contact the office at anytime for further help as they desire. Assessment & Plan (03/27/2020 8:02 AM CDT): Encouraged smoking cessation. Discussed 3 minutes. Reviewed options for assistance with cessation. Reviewed rat exterminator sequela associated with smoking. Pt declines assistance at this time but may contact the office at anytime for further help as they desire. Assessment & Plan (09/26/2019 7:39 AM GOVERNMENT AFFAIRS DIRECTOR): Encouraged smoking cessation. Discussed 3 minutes. Reviewed options for assistance with cessation. Reviewed detention sequela associated with smoking. Pt declines assistance at this time but may contact the office at anytime for further help as they desire. Assessment & Plan (07/14/2019 7:05 PM CDT): Encouraged smoking cessation. Discussed 3 minutes. Reviewed options for assistance with cessation. Reviewed rat exterminator sequela associated with smoking. Pt declines assistance [...] 05/20/2019 Assessment & Plan (11/19/2024 11:45 PM GOVERNMENT AFFAIRS DIRECTOR): Pre-diabetes/hyperglycemia is a precursor to Dm. Stressed [...] diabetes. Assessment & Plan (11/24/2023 10:34 AM GOVERNMENT AFFAIRS DIRECTOR): Pre-diabetes/hyperglycemia is a precursor to Dm. Stressed importance of working on diet (decrease your simple sugars and one carbohydrate with each meal) and increase you exercise to achieve weight loss and this will help prevent you from progressing to diabetes. Assessment & Plan (08/15/2023 5:03 PM GOVERNMENT AFFAIRS DIRECTOR): Pre-diabetes/hyperglycemia is a precursor to Dm. Stressed [...] diabetes. Assessment & Plan (08/01/2021 9:33 PM GOVERNMENT AFFAIRS DIRECTOR): Pre-diabetes/hyperglycemia is a precursor to Dm. Stressed [...] diabetes. Assessment & Plan (07/29/2020 7:34 AM GOVERNMENT AFFAIRS DIRECTOR): Pre-diabetes is a precursor to Dm. Stressed [...] labs Assessment & Plan (09/26/2019 10:27 PM GOVERNMENT AFFAIRS DIRECTOR): This is a significant, separately identifiable problem [...] 024 Assessment & Plan (11/24/2023 10:35 AM GOVERNMENT AFFAIRS DIRECTOR): Encouraged healthy lifestyle, good nutrition and exercise. Encouraged Calcium and Vitamin D and weight bearing exercise for bone health. Reviewed immunizations Reviewed age appropirate screenings. Need for influenza vaccination 08/15/2023 11/24/2023 Assessment & Plan (08/15/2023 5:04 PM GOVERNMENT AFFAIRS DIRECTOR): Flu vaccine updated in the office today BMI 22.0-22.9, adult 07/22/2023 024 Assessment & Plan (08/11/2023 8:12 AM GOVERNMENT AFFAIRS DIRECTOR): Weight/BMI is in healthy range. Continue healthy [...] 04/03/2023 Assessment & Plan (08/15/2022 6:45 PM GOVERNMENT AFFAIRS DIRECTOR): Flu updated in the office today BMI [...] test outpatient. Was referred to an outside library serials assistant. Encouraged to consider seeing a [facility] group of cardiologists so all of his providers are in the same system. He is in agreement. Referral made to Dr. Eduardo as he has multiple risk factors. BMI 23.0-23.9, adult 01/21/2022 022 Assessment & Plan (01/21/2022 11:10 AM CDT): Weight/BMI is in healthy range. Continue healthy lifestyle to maintain. BMI 21.0-21.9, adult 08/01/2021 022 Assessment & Plan (08/01/2021 7:28 AM GOVERNMENT AFFAIRS DIRECTOR): Weight/BMI is in healthy range. Continue healthy lifestyle to maintain. Medicare annual wellness visit, subsequent 08/01/2021 08/15/2022 Assessment & Plan (08/01/2021 9:34 PM GOVERNMENT AFFAIRS DIRECTOR): Encouraged healthy lifestyle, good nutrition and exercise. Encouraged Calcium and Vitamin D and weight bearing exercise for bone health. Reviewed immunizations. Reviewed age appropirate screenings. Medicare Wellness Documentation is completed within the chart Fatigue 05/17/2021 05/02/2022 Assessment & Plan (08/01/2021 9:34 PM GOVERNMENT AFFAIRS DIRECTOR): Probably multifactorial. Check labs and followup to [...] 024 Assessment & Plan (11/24/2023 10:34 AM GOVERNMENT AFFAIRS DIRECTOR): Weight/BMI is in healthy range. Continue healthy [...] 05/02/2022 Assessment & Plan (07/29/2020 7:34 AM GOVERNMENT AFFAIRS DIRECTOR): Probably multifactorial. Check labs and followup to re-evaluate Need for immunization against influenza 07/29/2020 11/24/2020 Assessment & Plan (07/29/2020 7:34 AM GOVERNMENT AFFAIRS DIRECTOR): Updated in office today BMI 22.0-22.9, adult 03/27/2020 024 Assessment & Plan (05/20/2024 7:37 PM CDT): Weight/BMI is in healthy range. Continue healthy lifestyle to maintain. Assessment & Plan (07/29/2020 7:34 AM GOVERNMENT AFFAIRS DIRECTOR): Weight/BMI is in healthy range. Continue healthy [...] 020 Assessment & Plan (09/26/2019 7:39 AM GOVERNMENT AFFAIRS DIRECTOR): Weight/BMI is in healthy range. Continue healthy lifestyle to maintain. Annual physical exam 09/26/2019 020 Assessment & Plan (09/26/2019 7:40 AM GOVERNMENT AFFAIRS DIRECTOR): Encouraged healthy lifestyle, good nutrition and exercise. Encouraged Calcium and Vitamin D and weight bearing exercise for bone health. Reviewed immunizations Reviewed age appropirate screenings. Influenza vaccine refused 09/26/2019 Assessment & Plan (09/26/2019 7:40 AM GOVERNMENT AFFAIRS DIRECTOR): Encouraged vaccine. Reviewed risks/ benefits. Patient refuses and accepts risks. Esophagitis determined by endoscopy 05/20/2019 05/02/2022 Gastritis 05/20/2019 05/02/2022 Essential (primary) hypertension 05/20/2019 05/20/2024 Assessment & Plan (11/24/2023 10:34 AM GOVERNMENT AFFAIRS DIRECTOR): Bp is stable/in acceptable range for any co-morbidities. Encouraged to limit sodium intake and exercise for weight control. Continue losartan 50 Assessment & Plan (08/15/2023 5:04 PM GOVERNMENT AFFAIRS DIRECTOR): Bp is stable/in acceptable range for any co-morbidities. Encouraged to limit sodium intake and exercise for weight control. Continue per Dr. Curtis Assessment & Plan (08/11/2023 8:45 AM GOVERNMENT AFFAIRS DIRECTOR): Bp is stable/in acceptable range for any [...] losartan Assessment & Plan (08/15/2022 6:44 PM GOVERNMENT AFFAIRS DIRECTOR): Bp is stable/in acceptable range for any [...] 50 Assessment & Plan (08/01/2021 9:33 PM GOVERNMENT AFFAIRS DIRECTOR): Bp is stable/in acceptable range for any [...] Losartan/HCTZ Assessment & Plan (07/29/2020 7:33 AM GOVERNMENT AFFAIRS DIRECTOR): Bp is stable/in acceptable range for any co-morbidities. Encouraged to limit sodium intake and exercise for weight control. Losartan and HCTZ Assessment & Plan (03/27/2020 8:00 AM CDT): Bp is stable/in acceptable range for any co-morbidities. Encouraged to limit sodium intake and exercise for weight control. Continue losartan/HCTZ Assessment & Plan (09/26/2019 7:38 AM GOVERNMENT AFFAIRS DIRECTOR): Bp is stable/in acceptable range for any [...] 01/21/2022 Assessment & Plan (08/01/2021 9:34 PM GOVERNMENT AFFAIRS DIRECTOR): Persistent hiccups. Has consulted with multiple providers [...] omeprazole Assessment & Plan (07/29/2020 7:32 AM GOVERNMENT AFFAIRS DIRECTOR): Continue per ENT/Pulm. He is responding to BID omeprazole. Will monitor Assessment & Plan (03/27/2020 7:59 AM CDT): Dr. Stokes started him on Pantoprazole. He hasn't noted much difference. Needs to followup to complete workup. Encouraged patient to call and make appointment. Assessment & Plan (09/26/2019 10:26 PM GOVERNMENT AFFAIRS DIRECTOR): This is a significant, separately identifiable problem that was evaluated and managed on the same day as the wellness exam Less frequent than in the past. Continue the PPI and monitor Rx sent to pharmacy. Assessment & Plan (08/24/2019 9:04 AM GOVERNMENT AFFAIRS DIRECTOR): Improving with the PPI. Continue PPI and [...] 2018 Assessment & Plan (08/24/2019 9:04 AM GOVERNMENT AFFAIRS DIRECTOR): Encouraged vaccine. Reviewed risks/ benefits. Patient refuses [...] = 0.6 oz pur e alcohol) social [employer] Utilities Answer Date Recorded In the past 12 months has [employer], gas, oil, or water [employer] threatened to shut off services in your [...] often do you attend chur ch or samaritan services? Patient declined 12/03/2023 Do you belong to any clubs o r organizations such as protestant groups, unions, fraternal or athletic groups, or [...] place to sleep or slept in a group home (including now)? No 12/03/2023 Personal Safety Answer Date Recorded Have you ever been in or are you currently in a harmful physical or emotional relationship or is someone making you feel afraid or unsafe? Denies 08/01/2024 Sex and Gender Information Value Date Recorded Sex Assigned at Not on file Legal Sex Male 12:22 AM GOVERNMENT AFFAIRS DIRECTOR Gender Identity Not on file Sexual Orientation [...] Diagnosis Comments TSH Routine 10/03/2024 10:42 AM GOVERNMENT AFFAIRS DIRECTOR Fatigue, unspecified type LIPID PANEL Routine 10/03/2024 10:42 AM GOVERNMENT AFFAIRS DIRECTOR Mixed hyperlipidemia HEMOGLOBIN A1C Routine 10/03/2024 10:42 AM GOVERNMENT AFFAIRS DIRECTOR Pre-diabetes COMPREHENSIVE METABOLIC PANEL Routine 10/03/2024 10:42 AM GOVERNMENT AFFAIRS DIRECTOR Hyponatremia CBC WITH AUTO DIFFERENTIAL Routine 10/03/2024 10:42 AM GOVERNMENT AFFAIRS DIRECTOR Fatigue, unspecified type CT CHEST WO CONTRAST F/U LUNG SCREEN PROTOCOL Schedule Routine, Read Routine (OP Routine) 10/03/2024 9:25 AM GOVERNMENT AFFAIRS DIRECTOR Pulmonary nodules PSA SCREEN Routine 12/16/2022 12:39 PM CDT Prostate cancer screening HEPATITIS PANEL, ACUTE Routine 05/03/2022 5:40 AM CDT HM COLONOSCOPY Routine 07/14/2021 from Last 3 Months or Most Recently Relevant to Health Maintenance Results * (ABNORMAL) CBC with auto differential (10/03/2024 10:42 AM GOVERNMENT AFFAIRS DIRECTOR) Pathologist [facility] WBC 7.4 3.8 - 10.8 Thousand/u L [...] mary Gross Blood 10/03/2024 10:4 2 AM GOVERNMENT AFFAIRS DIRECTOR 10/03/2024 10:49 AM GOVERNMENT AFFAIRS DIRECTOR Narrative [facility] - 10/03/2024 11:53 PM GOVERNMENT AFFAIRS DIRECTOR FASTING:YES FASTING: YES Nuris ROBLES LAB BLOOD ORDERABLES Final Result Performing Organization Address [facility] [[email or web address]] Co de Phone Number DMITRI SolorzanoNor-Lea General HospitalEricka [address] [place] [address] * TSH (10/03/2024 10:42 AM GOVERNMENT AFFAIRS DIRECTOR) [facility] TSH 1.29 0.40 - 4.50 mIU/L StudyBlueNor-Lea [facility] HospitalEricka Blood 10/03/2024 10:4 2 AM GOVERNMENT AFFAIRS DIRECTOR 10/03/2024 10:49 AM GOVERNMENT AFFAIRS DIRECTOR Narrative [facility] - 10/03/2024 11:53 PM GOVERNMENT AFFAIRS DIRECTOR FASTING:YES FASTING: YES Nuris ROBLES LAB BLOOD ORDERABLES Final Result Performing Organization Address [facility] de Phone Number DMITRI SolorzanoRe[facility] [address] [place] [address] * (ABNORMAL) Hemoglobin A1c (10/03/2024 10:42 AM GOVERNMENT AFFAIRS DIRECTOR) Pathologist [facility] Hgb A1C 5.7(H) <5.7 % of total [...] for children. Blood 10/03/2024 10:4 2 AM GOVERNMENT AFFAIRS DIRECTOR 10/03/2024 10:49 AM GOVERNMENT AFFAIRS DIRECTOR Narrative [facility] - 10/03/2024 11:53 PM GOVERNMENT AFFAIRS DIRECTOR FASTING:YES FASTING: YES Nuris ROBLES LAB BLOOD ORDERABLES Final Result Performing Organization Address [facility]/ZIP Co de Phone Number [facility] [address] [place] [address] * Lipid panel (10/03/2024 10:42 AM GOVERNMENT AFFAIRS DIRECTOR) [facility] Cholesterol 152 <200 mg/dL [facility] [facility] HDL 52 > OR = 40 mg/dL [facility] mary Gross Triglycerides 72 <150 mg/dL [facility] mary Gross LDL 84 mg/dL (calc) [facility] mary Gross Comment: Reference range: <100 Desirable range <100 mg/dL for primary prevention; <70 mg/dL for patients with CHD or diabetic patients with > or = 2 CHD risk factors. LDL-C is now calculated using the Jacob calculation, which is a validated novel method providing better accuracy than the Friedewald equation in the estimation of LDL-C. Adal SS et al. NICOLE. 2013;310(19): 0169-4889 (http://education.Flare Code/faq/KIN435) Chol/HDL ratio 2.9 <5.0 (calc) [facility] mary Gross Non-HDL, (LDL+VLDL) 100 <130 mg/dL (calc) [facility] mary Gross Comment: For patients with diabetes plus 1 major ASCVD risk factor, treating to a non-HDL-C goal of <100 mg/dL (LDL-C of <70 mg/dL) is considered a therapeutic option. Blood 10/03/2024 10:4 2 AM GOVERNMENT AFFAIRS DIRECTOR 10/03/2024 10:49 AM GOVERNMENT AFFAIRS DIRECTOR Narrative QUEST - 10/03/2024 11:53 PM GOVERNMENT AFFAIRS DIRECTOR FASTING:YES FASTING: YES Nuris ROBLES LAB BLOOD ORDERABLES Final Result Performing Organization Address [facility] [[email or web address]] Co de Phone Number [facility] [address] [place] [address] * (ABNORMAL) Comprehensive metabolic panel (10/03/2024 10:42 AM GOVERNMENT AFFAIRS DIRECTOR) Pathologist [facility] Glucose 84 65 - 99 mg/dL Dmitri [...] Calcium 9.8 8.6 - 10.3 mg/dL Dmitri [employer] [facility] Protein, sr 6.6 6.1 - 8.1 g/dL Dmitri Solorzano[employer] Gross Albumin 4.2 3.6 - 5.1 g/dL Dmitri [employer] GLOBULIN 2.4 1.9 - 3.7 g/dL (calc) Dmitri [employer] Alb/glob ratio 1.8 1.0 - 2.5 (calc) Dmitri [employer] Bilirubin, total 0.4 0.2 - 1.2 mg/dL Dmitri [employer] Alk phos 53 35 - 144 U/L Dmitri [employer] AST 8(L) 10 - 35 U/L Dmitri [employer] ALT (SGPT) 6(L) 9 - 46 U/L Dmitri [employer] Blood 10/03/2024 10:4 2 AM GOVERNMENT AFFAIRS DIRECTOR 10/03/2024 10:49 AM GOVERNMENT AFFAIRS DIRECTOR Narrative QUEST - 10/03/2024 11:53 PM GOVERNMENT AFFAIRS DIRECTOR FASTING:YES FASTING: YES us Nuris ROBLES LAB BLOOD ORDERABLES Final Result [facility] Dmitri [facility] [address] [place] [address] * CT Chest WO Contrast F/U Lung Screen Protocol (10/03/2024 9:25 AM GOVERNMENT AFFAIRS DIRECTOR) Anatomical Region Laterality Modality Chest N/A Computed Tomogra phy 10/03/2024 7:11 PM GOVERNMENT AFFAIRS DIRECTOR Narrative 10/03/2024 7:17 PM GOVERNMENT AFFAIRS DIRECTOR EXAM DESCRIPTION: CT CHEST WO CONTRAST F/U [...] Estuardo Ortiz M.D. KT T: Report ID: [id number] Reading Location: [id number] us Tasia Hoffman MD IMG CT PROCEDURES [...] Nuris ROBLES LAB BLOOD ORDERABLES Final Result [facility] [address] [facility] Department [place] [address] * Hepatitis panel, acute (05/03/2022 5:40 AM CDT) Hep A IgM Nonreactive Nonreactive [facility] Comment: Interpretive Data: If Hep A IgM Ab is reported as Equivocal, a new sample should be drawn in two weeks for testing. Current interpretive data was last revised on 19. Hep B core IgM Nonreactive Nonreactive [facility] Comment: Interpretive Data If HepB Core IgM Ab is reported as Equivocal, a new sample should be drawn in two weeks for testing. Current interpretive data was last revised on 19. Hep C Ab Nonreactive Nonreactive [facility] Comment: Interpretive Data Nonreactive: Antibodies to HCV [...] last revised on 2019. HepBsAg Nonreactive Nonreactive [facility] Blood 05/03/2022 5:40 AM CDT 05/03/2022 6:36 AM CDT Pamela Gongora DO LAB MICROBIOLOGY - GENERAL OR DERABLES Final Result [facility] [address] [facility] Department [place] [address] * (ABNORMAL) HM COLONOSCOPY (07/14/2021) Jame Mg MD HEALTH MAINTENANCE Edited Result - Final from Last 3 Months or Most Recently Relevant to Health Maintenance Insurance T MEDICARE [facility] TNA MEDICARE GOLD AETNA MEDICARE GOLD Advance Directives For more information, please contact: [phone] * Full Code (Latest Code Status on [...] 10:34 PM 11/16/2022 9:56 PM Care Teams Painter Spray Relationship Specialty Start Date End Date Nuris Berger PA [address] [facility] [address] [place] [address] PCP - General Internal Medicine 12/28/18 Jonatan Stokes MD [address] [place] [address] Consulting Physician Otolaryngology 03/27/20 Irma Bajwa MD [address] [facility] [address] Consulting Physician Neurology 05/07/22
[2024-12-21] MEDS: diphenhydrAMINE HCl INJ 50 MG/ML VIAL 25 MG IV PUSH (17:25)
[2024-12-21] MEDS: METOCLOPRAMIDE HCL INJ 10 MG/2 ML VIAL IV PUSH (17:25)
[2024-12-21] MEDS: SODIUM CHLORIDE 0.9% IV 1,000 ML 999 ML IV CONT (17:25)
--- NOTE | 2024-12-21 19:20 | ED.NAVMDI ---
HPI - Nausea/Vomiting/Diarrhea General Chief complaint: Recheck/Abnormal Lab/Rx Stated complaint: Headache, dizzy, vomiting, sodium down Time Seen by Provider: 12/21/24 16:11 History of Present Illness HPI Narrative: Patient is a 64-year-old male who presents ER with multiple issues, with main is hiccups. He has chronic issues with hiccups and these restarted recently. He had gone a full week without them. When they start he has a hard time stopping them and will drink water. He reports he is not have antinausea medicine but have been taking baclofen. No fevers chills or sweats. Does have some vomiting due to the cups. Can not keep his sodium pills down. Mild headache. Related Data Home Medications ?Medication ?Instructions ?Recorded ?Confirmed ?Last Taken ?Type losartan 50 mg tablet 50 mg PO DAILY 03/02/21 06/28/24 07/13/21 History montelukast 10 mg tablet 10 mg PO DAILY 03/02/21 06/28/24 07/13/21 History pravastatin 80 mg tablet 80 mg PO DAILY 03/02/21 06/28/24 07/13/21 History cholecalciferol (vitamin D3) 25 25 mcg PO DAILY 03/29/21 06/28/24 07/13/21 History mcg (1,000 unit) capsule (Vitamin D3) cyanocobalamin (vitamin B-12) 100 2,000 mcg PO DAILY 03/29/21 06/28/24 07/13/21 History mcg tablet hydrochlorothiazide 12.5 mg capsule 12.5 mg PO DAILY 04/27/21 06/28/24 07/13/21 History dorzolamide 22.3 mg-timolol 6.8 1 drp LEFT EYE TID 06/29/24 06/29/24 06/28/24 History mg/mL eye drops Allergies Allergy/AdvReac Type Severity Reaction Status Date / Time No Known Allergies Allergy Verified 12/21/24 14:54 Review of Systems Review of Systems: All systems reviewed & are unremarkable except as noted in HPI and below Constitutional: Constitutional: Reports no additional constitutional complaints ENT: Reports system reviewed and no additional complaints, except as documented Cardiovascular: Cardiovascular: Reports no additional cardiovascular complaints Respiratory: Respiratory: Reports no additional respiratory complaints Gastrointestinal: Gastrointestinal: Reports no additional gastrointestinal complaints [facility] Past Medical History Medical History (Updated 12/21/24 @ 19:23 by Nelson Barrientos MD) Adenomatous colon polyp Erosive esophagitis Anemia of chronic disease Chronic hiccups Hyponatremia Tobacco abuse Normocytic anemia Glaucoma Legally blind. Chronic obstructive pulmonary disease Hyperlipidemia Hypertension Surgical History Surgical History History of enucleation of eye Right, secondary to recurrent infection. Family History Family History Grandparent Acute myocardial infarction Mother Acute myocardial infarction Father Acute myocardial infarction Sibling Cancer Social History Social History (Updated 06/28/24 @ 20:06 by Shalonda Sebastian PA-C) Social History: Surrogate decision maker: Svitlana Hines, . Code status: Full code. Smoking packs per day: 1 Smoking cigarettes per day: 20.0 Years smoked: 30 Smoking pack-years: 30.00 Smoking status: Former smoker Tobacco type: cigarettes Alcohol intake: current Drinks per week: 1 Substance use: never Substance use type: does not use Do You Feel Safe in your Home?: Yes Lack of Transportation: No Lack of Food: Never True Current Housing: I Have Housing Concerned About Future Housing: No Difficulty Paying Gas/Electric Bills: No Difficulty Paying for Meds: No Currently Unemployed: No Education: Don't Know Difficulty w/ Childcare or Family Care: No Living arrangements: with family Additional living arrangements comments: The patient lives with his in [place]. 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 Spiritual care concerns: No Exam Narrative: GENERAL: Chronically ill-appearing, well-nourished, and in no acute distress. HEAD: Normocephalic, atraumatic. ENT: Mucous membranes moist. CHEST: Clear to auscultation. No respiratory distress. HEART: Regular rate and rhythm. Normal peripheral pulses. ABDOMEN: Soft, nontender, nondistended. EXTREMITIES: Normal range of motion. No edema. SKIN: Warm, dry, no rash. NEURO: Alert and oriented x3. PSYCH: Normal mood and affect. Course Course Emergency Course: Feels improved after receiving metoclopramide and Benadryl as well as 1 L IV fluid. He is urinating quite dilute urine from his excess water intake at home. Specific gravity is 1.002. Vital Signs Vital signs: Vital Signs Temperature 97.9 F 12/21/24 14:56 Pulse Rate 66 12/21/24 14:56 Respiratory Rate 18 12/21/24 14:56 Blood Pressure 167/70 H 12/21/24 14:56 Pulse Oximetry 98 12/21/24 14:56 Oxygen Delivery Room Air 12/21/24 14:56 Temperature 98.5 F 12/21/24 19:08 Pulse Rate 74 12/21/24 19:14 Respiratory Rate 20 12/21/24 19:08 Blood Pressure 146/68 H 12/21/24 19:14 Pulse Oximetry 99 12/21/24 19:08 Oxygen Delivery Room Air 12/21/24 14:56 MDM - Nausea/Vomiting/Diarrhea Lab Data 12/21/24 15:07 12/21/24 15:07 Labs: Lab Results 12/21/24 Range/Units 15:07 WBC 9.0 (4.5-10.0) K/mm3 RBC 4.17 L (4.6-6.20) M/mm3 Hgb 12.0 L (14.0-18.0) g/dL Hct 35.2 L (42.0-52.0) % MCV 84.4 (80-100) fl MCH 28.8 (26-34) pg MCHC 34.1 (32-36) g/dl RDW 13.0 (11.5-14.5) % Plt Count 236 (150-375) k/mm3 MPV 11.5 H (7.4-10.4) fl Immature Gran % (Auto) 0.3 (0-0.5) % Neut % (Auto) 71.4 (45.5-73.1) % Lymph % (Auto) 19.8 (18.3-44.2) % [place] % (Auto) 6.0 (2.6-8.5) % Eos % (Auto) 2.1 (0-4.4) % Baso % (Auto) 0.4 (0.2-1.2) % Lymph # (Auto) 1.78 (0.9-3.2) K/mm3 [place] # (Auto) 0.5 (0.1-0.6) K/mm3 Eos # (Auto) 0.2 (0-0.3) K/mm3 Baso # (Auto) 0.0 (0.0-0.1) K/mm3 Abs Immat Gran (auto) 0.03 (0.00-0.031) K/mm3 Absolute Neuts (auto) 6.4 (1.3-6.7) K/mm3 Absolute Nucleated RBC 0.000 (0.0-0.012) K/mm3 Nucleated RBC % 0.0 (0.0-0.2) % Sodium 122 L (137-145) mmol/L Potassium 4.3 (3.4-5.0) mmol/L Chloride 88 L (98-107) mmol/L Carbon Dioxide 23 (22-30) mmol/L Anion Gap 11 (4-12) mmol/L BUN 8 L (9-20) mg/dL Creatinine 0.75 (0.7-1.3) mg/dL Estim Creat Clear Calc 84 ml/min Estimated GFR > 60 (59 - ) Glucose 103 (65-110) mg/dL Calcium 9.2 (8.4-10.2) mg/dL Total Bilirubin 0.4 (0.2-1.3) mg/dL AST 20 (17-59) U/L ALT 11 (6-50) U/L Alkaline Phosphatase 68 (38-126) U/L Total Protein 8.0 (6.3-8.2) g/dL Albumin 4.4 (3.5-5.1) g/dL Lipase 131 (23-300) U/L Urine Color Yellow (Yellow) Urine Appearance Clear (Clear) Urine pH 7.0 (5.0-9.0) Ur Specific [place] 1.002 (1.001-1.035) Urine Protein Negative (Negative) mg/dL Urine Glucose (UA) Negative (Negative) mg/dL Urine Ketones Negative (Negative) mg/dL Ur Blood (Man) Negative (Negative) Urine Nitrate Negative (Negative) Urine Bilirubin Negative (Negative) Urine Urobilinogen 0.2 (<2.0) mg/dL Leukocyte Esterase Rfl Negative (Negative) BENTLEY/UL Discharge Plan Discharge Clinical Impression: Dilutional hyponatremia, Chronic hiccups Patient Disposition: Home, Self-Care Condition: Stable Instructions: Hyponatremia (ED), Hiccups (ED) Additional Instructions: Your having bad hip cups you may try swelling a spoonful of honey. If you are going to drink water you should alternate with an electrolyte solution so you do not deplete your sodium. Talk to your physician about prescribing metoclopramide is that was medication might help to in the ER. Patient Language: Indian Prescriptions: New metoclopramide HCl 10 mg tablet 10 mg PO Q6H PRN (Reason: nausea and vomiting) Qty: 10 0RF No Action pantoprazole 40 mg tablet,delayed release (DR/EC) 40 mg PO BID 30 Days Qty: 60 5RF losartan 50 mg tablet 50 mg PO DAILY pravastatin 80 mg tablet 80 mg PO DAILY montelukast 10 mg tablet 10 mg PO DAILY hydrochlorothiazide 12.5 mg capsule 12.5 mg PO DAILY chlorpromazine 25 mg Tablet 25 mg PO QID PRN (Reason: Hiccups) Qty: 20 0RF budesonide-formoterol [Symbicort] 160-4.5 mcg/actuation HFA aerosol inhaler 2 puff inhalation Q12H Qty: 10.2 2RF albuterol sulfate 90 mcg/actuation HFA aerosol inhaler 1 inh inhalation QID PRN (Reason: shortness of breath or wheezing) Qty: 8.5 0RF dorzolamide-timolol 22.3-6.8 mg/mL drops 1 drp LEFT EYE TID cyanocobalamin (vitamin B-12) 100 mcg Tablet 2,000 mcg PO DAILY cholecalciferol (vitamin D3) [Vitamin D3] 25 mcg (1,000 unit) Capsule 25 mcg PO DAILY sucralfate 100 mg/mL Suspension 1,000 mg PO ACHS 14 Days Qty: 560 0RF prochlorperazine maleate [Compazine] 10 mg tablet 10 mg PO Q6H PRN (Reason: nausea and vomiting) Qty: 30 0RF prochlorperazine maleate 5 mg tablet 5 mg PO Q8H PRN (Reason: nausea and vomiting) 5 Days Qty: 20 0RF Follow-up/Referrals: Celine,TRAVIS Lawler [Primary Care Provider] - 1 Week
== END 2024-12-21 19:36 | disposition home or self-care (01) ==
PROVIDERS: Emergency Provider Emergency Medicine; PCP Physician Assistant
DX: E87.1 Hypo-osmolality and hyponatremia (principal); R06.6 Hiccough; I10 Essential (primary) hypertension; E78.5 Hyperlipidemia, unspecified; Z87.891 Personal history of nicotine dependence
CPT/HCPCS: 36415; 80053; 81003; 83690; 85025; 96361; 96374; 96375; 99284; J1200; J2765; J7030

== ENCOUNTER 2024-12-26 06:16 | Inpatient (IN) | payer MEDICARE, SELFPAY ==
[2024-12-26] VITALS (15 sets, daily range): BP systolic 136–168; BP diastolic 55–82; PULSE 60–92; RESP 20–28; TEMP 36.9–37.2; O2SAT 95–98; BMI 24.9
--- NOTE | ~2024-12-26 | US_ITS ---
Limited ABDOMINAL ULTRASOUND (Doppler ultrasound interrogation techniques used as needed for this exa m.) Ordering provider: Luzma Duckworth MD History: . based on abnormal CT imaging . Comparison: None. FINDINGS: PANCREAS: Normal echotexture and size of the partially visualized portion. PORTAL VEIN: Hepatopedal flow demonstrated. LIVER: Normal size and echotexture. No focal hepatic lesions or perihepatic fluid collections are willy ntified. Multiple cystic areas with the largest measuring 0.9 x 0.9 x 0.7 cm. BILIARY DUCTS: No intra or extrahepatic biliary dilation. Common bile duct measures 3.6 mm in diamete r which is normal for patient's age. GALLBLADDER: Hypoechoic area in the fundus of the gallbladder anterior wall measuring 1 x 1.1 x 1.1 c m. No pericholecystic fluid. Wall thickness is 1.6 mm. Negative sonographic Herrera's sign. IVC: Patent FREE FLUID: None visualized within the upper abdomen. IMPRESSION: Multiple small cysts in the liver. Gallbladder polyp versus a mass versus a noncalcified stone. Reviewed, dictated and finalized at location A.
--- NOTE | ~2024-12-26 | CT_ITS ---
EXAMINATION: CT chest abdomen pelvis w con DATE: 12/26/2024 07:53 INDICATION: Occipital and leukocytosis. Hyponatremia. Chest pain. TECHNIQUE: Computed tomography (CT) of the chest, abdomen, and pelvis was performed with 100 mL Omnip aque-350 intravenous contrast. Automated exposure control and iterative reconstruction technique were employed. The dose-length product was 446.21 mGy-cm. COMPARISON: 07/21/2021 FINDINGS: CHEST CT: Chronic calcified pleural plaques at the posterior left lower lobe. Trace left pleural effusion. New patchy airspace opacities in the left lower lobe and lingula suspicious for pneumonia. Calcified left lower lobe nodule consistent with old granulomatous disease. Right lung is clear. No pulmonary edema , pneumothorax or right-sided pleural effusion. Heart size is normal. Atherosclerotic coronary artery calcific location. No pericardial effusion. Small sliding type hiatal hernia. Small amount of fluid in the distal esophagus with mild esophageal wall thickening which can be seen with esophagitis secon amanda to reflux. Moderate thoracic spondylosis with chronic mild anterior wedging of multiple mid and lower thoracic vertebral bodies and with bridging osteophytes at multiple levels consistent with diff use idiopathic skeletal hyperostosis (DISH). ABDOMEN/PELVIS CT: A few subcentimeter hepatic cysts. Is 1.2 cm soft tissue density at the nondependent fundus of the ot herwise normal-appearing gallbladder. Multiple splenic calcific lesions consistent with old granuloma tous disease. Pancreas and bilateral adrenal glands are normal. Bilateral renal cysts the largest on the right measuring 3.2 cm there are few scattered colonic diverticula without adjacent inflammatory stranding to suggest diverticulitis. Small bowel and appendix are normal. Bladder is distended but ot herwise unremarkable. No free intraperitoneal gas or fluid. No pathologically enlarged abdominal or p elvic lymphadenopathy. Severe disc height loss at L5-S1 with mild to moderate spondylosis and more ce phalad lumbar spine. There are multiple Schmorl's nodes in the lumbar and lower thoracic spine. Osteo necrosis at the bilateral femoral heads. IMPRESSION: 1. New mild patchy airspace opacity left lower lobe and lingula suspicious for pneumonia. 2. Small sliding-type hiatal hernia with fluid and mild wall thickening in the distal esophagus sugge stive of mild reflux esophagitis. 3. 1.2 cm soft tissue density at the fundus of the gallbladder which could represent a gallbladder po lyp, malignancy, sludge or gallstone. Would recommend right upper quadrant ultrasound for further pollo luation. 4. 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 Reviewed, dictated and finalized at location A. IMPRESSION: 1. New mild patchy airspace opacity left lower lobe and lingula suspicious for pneumonia. 2. Small sliding-type hiatal hernia with fluid and mild wall thickening in the distal esophagus suggestive of mild reflux esophagitis. 3. 1.2 cm soft tissue density at the fundus of the gallbladder which could repr esent a gallbladder polyp, malignancy, sludge or gallstone. Would recommend rig ht upper quadrant ultrasound for further evaluation. 4. 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
--- NOTE | ~2024-12-26 | XR_ITS ---
EXAMINATION: XR chest 1V DATE: 12/26/2024 08:02 INDICATION: Chest pain after TECHNIQUE: frontal view of the chest was obtained. COMPARISON: Chest radiograph dated 07/02/2024 FINDINGS: Mild patchy airspace opacity left lower lung zone suspicious for pneumonia. No pleural effusion or pn eumothorax. Cardiomediastinal silhouette is normal. IMPRESSION: 1. Opacity left lower lung zone suspicious for pneumonia. Reviewed, dictated and finalized at location A.
--- OUTSIDE RECORDS SUMMARY | 2024-12-26 06:18 | XMS_ITS | Encounter Summary ---
Author Organization [facility] Healthcare Address [address] [place] [address] Care Team Providers Care Black And White Printer Operator Name Role Phone Nuris Berger Primary Care Provider [phone] Jonatan Stokes MD Unavailable [phone] Irma Bajwa MD Unavailable [phone] Encounter Details Date Type Department Care Team (Late st Contact Info) Description 06/28/2024 Orders Only [facility] Health Information Management [address] [place] [address] Scanning, Provider Social History Tobacco Use Types Packs/Day Years Used Date Smoking Tobacco: Former Cigarettes 0.8 40 0 09/1981 - 09/2021 Smokeless Tobacco: Never Alcohol Use Standard Drinks/Week Comments Yes 0 (1 standard drink = 0.6 oz pur e alcohol) social [facility] Utilities Answer Date Recorded In the past 12 months has [employer], gas, oil, or water [employer] threatened to shut off services in your [...] week 12/03/2023 How often do you attend [facility] or christianity services? Patient declined 12/03/2023 Do you belong to any clubs o r organizations such as samaritan groups, unions, fraternal or athletic groups, or [...] place to sleep or slept in a fdc (including now)? No 12/03/2023 Personal Safety Answer Date Recorded Have you ever been in or are you currently in a harmful physical or emotional relationship or is someone making you feel afraid or unsafe? 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
--- OUTSIDE RECORDS SUMMARY | 2024-12-26 06:18 | XMS_ITS | Clinical Summary ---
Author Organization [facility] Address [facility] [place] [address] Care Team Providers Care Geospatial Technician Name Role Phone Nuris Berger Primary Care Provider [phone] Allergies No known active allergies Medications albuterol [...] Comments Blood Pressure 120/62 09/04/2021 8:52 AM MA[employer] Pulse 82 09/04/2021 8:52 AM [employer] Temperature 36.3 C (97.4 F) 09/04/2021 8:52 AM [employer] Respiratory Rate 16 09/04/2021 8:52 AM [employer] [place] Oxygen Saturation 97% 09/04/2021 8:52 AM [employer] Inhaled Oxygen Concentration - - Weight 64.4 kg (142 lb) 09/04/2021 8:52 AM [employer] Height 172.7 cm (5' 8 ) 09/04/2021 8:52 AM [employer] [place] Body Mass Index 21.59 09/04/2021 8:52 AM [employer] [place] Plan of Treatment Health Maintenance Due Date [...] - 2023-2 5 season) 2024 02/09/2021, 01/05/2021 RSV Immunization or 60+ Years (1 - [...] complete this topic Insurance AETNA Care Teams Geospatial Technician Relationship Specialty Start Date End Date Nuris Berger PA [address] [place] [address] PCP - General PHYSICIAN MILL BEAM FITTER 06/09/21
--- OUTSIDE RECORDS SUMMARY | 2024-12-26 06:18 | XMS_ITS | Clinical Summary ---
Author Organization [facility] Address [address] [place] [address] Care Team Providers Care Fuel Operator Name Role Phone Nuris Berger PA-C Primary Care Provider [phone] Source Comments [facility],non-owned Affiliates and Associated Physician Practices is amultiple site organization consisting of ambulatory clinics and hospital sitesin [place], [place], [place] and [place]. This disclosure is being madepursuant to the Care Everywhere program and may not contain all information available regarding this patient. Last updated 18.[facility] Allergies Active Allergy Reactions Criticality Noted Date [...] tablet 06/17/2023 Active ergocalciferol (Drisdol) 1.25 MG (13125 UT) capsule Take 1 (one) capsule by [...] 11 07/21/2024 Active trimethoprim-poly myxin B (Polytrim) 23635-9.1 UNIT/ML-% ophthalmic solution Instill 1 (one) drop [...] Reviewed options for assistance with cessation. Reviewed skilled nursing sequela associated with smoking. Pt declines assistance [...] polyp 05/20/2019 Overview (12/24/2020): Colonoscopy 01/29/2012 at [facility]--->2021 Last Assessment & Plan: Recvd colonoscopy [...] Description 12/13/2024 9:15 AM CDT [facility] [address] [place] [phone] Louis Hansen MD H/O cornea transplant (Primary Dx); Pseudophakia 12/13/2024 Travel 12/01/2024 8:30 AM CDT Clinical Support [facility] - Ophthalmology [address] [place] [phone] Tyrel Velez MD 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 (Primary Dx) 12/01/2024 8:25 AM CDT Clinical Support [facility] - Ophthalmology [address] [place] [phone] Tyrel Velez MD 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 (Primary Dx) 12/01/2024 8:20 AM CDT Office Visit [facility] - Ophthalmology [address] [place] [phone] Tyrel Velez MD 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 (Primary Dx); H/O cornea transplant; Central corneal opacity, left 12/01/2024 8:15 AM CDT Clinical Support [facility] - Ophthalmology [address] [place] [phone] Tyrel Velez MD 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 (Primary [...] Comments Blood Pressure 128/70 08/26/2023 12:43 PM ELECTRON BEAM PHOTO MASK TECHNICIAN Pulse 65 08/26/2023 12:43 PM ELECTRON BEAM PHOTO MASK TECHNICIAN Temperature 35.9 C (96.7 F) 08/26/2023 12:34 PM ELECTRON BEAM PHOTO MASK TECHNICIAN Respiratory Rate 14 08/26/2023 12:43 PM ELECTRON BEAM PHOTO MASK TECHNICIAN Oxygen Saturation 98% 08/26/2023 12:34 PM ELECTRON BEAM PHOTO MASK TECHNICIAN Inhaled Oxygen Concentration - - Weight 64.9 kg (143 lb) 08/26/2023 9:01 AM ELECTRON BEAM PHOTO MASK TECHNICIAN Height 172.7 cm (5' 8 ) 08/26/2023 9:01 AM ELECTRON BEAM PHOTO MASK TECHNICIAN Body Mass Index 21.74 08/26/2023 9:01 AM ELECTRON BEAM PHOTO MASK TECHNICIAN Plan of Treatment Upcoming Encounters Date Type Department Care Team (Late st Contact Info) Description 04/18/2025 9:15 AM CDT Office Visit [facility] - Ophthalmology [address] [place] [phone] Louis Hansen MD [address] [facility] [place] [phone] 08/07/2025 8:40 AM ELECTRON BEAM PHOTO MASK TECHNICIAN Office Visit [facility] - Ophthalmology [address] [place] [phone] Tyrel Velez MD [address] [place] [phone] Health Maintenance Due Date Last Done Comments [...] this topic Medical Devices Implanted Type Area Dry Plasterer Helper Device Identifier Shelf Expiration Date Model / Serial / Lot Drain Glcm Thk.9mm Blnt Tpr med Flxb - [id number] Implanted:Qty: 1 on 05/04/2018 by Tyrel Velez MD at [facility] Left: Eye [employer] 03/15/2020 7 / [id number] / [id number] Graft Tissue Ttplst Sclr .8x.5cm Lopro - [id number] Implanted:Qty: 1 on 05/04/2018 by Tyrel Velez MD at [facility] Left: Eye [employer] 01/17/2023 [id number] / [id number] / [id number] Impl Opth 250sq Mm Brvldt Magaly 1 Qdrnt - [id number] Implanted:Qty: 1 on 06/16/2023 by Tyrel Velez MD at [facility] Left: Eye [employer] 01/09/2024 [id number] / [id number] / Graft Tissue Ttpl Ioptch Sclr .8x.5cm - [id number] Implanted:Qty: 1 on 06/16/2023 by Tyrel Velez MD at [facility] Left: Eye [employer] 09/19/2027 [id number] / [id number] / Graft Tissue Ttpl Ioptch Sclr .8x.5cm - [id number] Implanted:Qty: 1 on 06/16/2023 by Tyrel Velez MD at [facility] Left: Eye [employer] 09/19/2027 [id number] / [id number] / J Luis Cornea - [id number] Implanted:Qty: 1 on 08/26/2023 by Louis Hansen MD at [facility] Left: Eye [employer] [facility] 09/05/2023 [id number] / [id number] / [id number] Description:Product Numb:[id number] EXP:09-05-2023 DIN:[id number] Advance Directives * Full Code (Latest Code Status on File) Date Activated Date Inactivated Comments 05/04/2018 11:35 AM 05/04/2018 1:21 PM * Full Code Date Activated Date Inactivated Comments 05/04/2018 7:43 AM 05/04/2018 11:35 AM Care Teams Fuel Operator Relationship Specialty Start Date End Date Nuris Berger PA-C PCP - General 02/13/20
--- OUTSIDE RECORDS SUMMARY | 2024-12-26 06:18 | XMS_ITS | Clinical Summary ---
Author Organization [facility] [address] [facility] Address [address] [place] [address] Care Team Providers Care Pipe Fitter Welding Name Role Phone Nuris Berger Primary Care Provider [phone] Jonatan Stokes MD Unavailable Irma Bajwa MD Unavailable [phone] Allergies Active Allergy Reactions Criticality Noted Date [...] 11/19/2024 Assessment & Plan (11/19/2024 11:45 PM PRIVATE EQUITY ANALYST): Encouraged healthy lifestyle, good nutrition and exercise. Encouraged Calcium and Vitamin D and weight bearing exercise for bone health. Reviewed immunizations Reviewed age appropirate screenings. BMI 23.0-23.9, adult 06/20/2024 Assessment & Plan (10/30/2024 8:57 AM PRIVATE EQUITY ANALYST): Weight/BMI is in healthy range. Continue healthy lifestyle to maintain. Assessment & Plan (06/20/2024 7:44 AM CDT): Weight/BMI is in healthy range. Continue healthy lifestyle to maintain. Vitamin D deficiency 11/24/2023 Assessment & Plan (11/19/2024 11:45 PM PRIVATE EQUITY ANALYST): Supplement Assessment & Plan (05/20/2024 7:36 PM CDT): Supplement Fatigue 12/12/2022 Assessment & Plan (05/20/2024 7:37 PM CDT): Probably multifactorial. Check labs and followup to re-evaluate Assessment & Plan (11/24/2023 10:35 AM PRIVATE EQUITY ANALYST): Probably multifactorial. Check labs and followup to [...] 01/16/2022 Assessment & Plan (11/19/2024 11:44 PM PRIVATE EQUITY ANALYST): Chronic hiccups for 5+ years Has been [...] to the ER. ER recommended referral to [facility] but patient states he can't go to [...] weeks Assessment & Plan (11/24/2023 10:34 AM PRIVATE EQUITY ANALYST): Patient has persistent chronic hiccups that come [...] monitor Assessment & Plan (08/15/2023 5:01 PM PRIVATE EQUITY ANALYST): Chronic hiccups for years. Has tried multiple interventions along with multiple workups from specialists including Neurology pulmonology and GI. Continue current regimen. Stressed importance of limiting water intake when he has the hiccups spells as this has been leading to hyponatremia requiring hospitalization. Assessment & Plan (08/11/2023 8:45 AM PRIVATE EQUITY ANALYST): Patient with chronic hiccups. Have had difficulty [...] levels. Assessment & Plan (08/15/2022 6:45 PM PRIVATE EQUITY ANALYST): Patient has consulted with most multiple specialists [...] hiccups. Assessment & Plan (08/15/2023 5:02 PM PRIVATE EQUITY ANALYST): Chronic hiccups for years. Has tried multiple interventions along with multiple workups from specialists including Neurology pulmonology and GI. Continue current regimen. Stressed importance of limiting water intake when he has the hiccups spells as this has been leading to hyponatremia requiring hospitalization. Assessment & Plan (08/11/2023 8:46 AM PRIVATE EQUITY ANALYST): Hyponatremia secondary to water intake with chronic [...] 07/14/2019 Assessment & Plan (11/19/2024 11:44 PM PRIVATE EQUITY ANALYST): Continue PPI p.r.n. Assessment & Plan (05/20/2024 7:35 PM CDT): Continue pantoprazole p.r.n. Assessment & Plan (11/24/2023 10:33 AM PRIVATE EQUITY ANALYST): Continue pantoprazole p.r.n. Assessment & Plan (04/08/2023 8:48 PM CDT): Continue PPI p.r.n. Assessment & Plan (12/12/2022 9:43 PM CDT): Insert PPI Assessment & Plan (08/15/2022 6:45 PM PRIVATE EQUITY ANALYST): Continue PPI prn Assessment & Plan (02/09/2021 8:17 PM CDT): Continue PPI Assessment & Plan (07/29/2020 7:33 AM PRIVATE EQUITY ANALYST): Continue PPI Assessment & Plan (03/27/2020 8:01 AM CDT): Dr. Stokes changed him from omeprazole to Pantoprazole for the hiccups. Pt hasn't noted any difference in GERD sxs (still well controlled) or hiccups. Assessment & Plan (09/26/2019 7:38 AM PRIVATE EQUITY ANALYST): Continue PPI Assessment & Plan (07/14/2019 8:46 AM CDT): Discussed GERD at length including anatomy, behavioral changes (raise HOB, meal timings), dietary changes and medication options. Reviewed risks, benefits alternatives, side effects and proper use. Followup if sxs worsen or has hematochezia or hematemeis. Start PPI Chronic obstructive pulmonary disease 06/26/2019 Overview (06/26/2019): Noted on 06/2019 LDCT Assessment & Plan (11/19/2024 11:44 PM PRIVATE EQUITY ANALYST): Patient with allergies and COPD. Continue Singulair albuterol and Symbicort. Follows with Dr. Valdes. Assessment & Plan (05/20/2024 7:35 PM CDT): Continue per Dr. Valdes. Continue with his Symbicort and albuterol inhalers. Low-dose CT will be scheduled for June 16, 2024. Assessment & Plan (11/24/2023 10:33 AM PRIVATE EQUITY ANALYST): COPD. Continue per Dr. Hammond his housekeeping manager Continue Symbicort Singulair and albuterol p.r.n. Assessment & Plan (04/08/2023 8:48 PM CDT): Encouraged smoking cessation. Continue per Dr. Hammond pulmonology. He is on albuterol Symbicort and Singulair Assessment & Plan (12/12/2022 9:43 PM CDT): Stop smoking. Continue per Pulmonary. Continue Symbicort Singulair and albuterol. Continue monitoring low-dose CTs as instructed Assessment & Plan (08/15/2022 6:44 PM PRIVATE EQUITY ANALYST): Stop smoking. Continue current plan per Pulmonary Assessment & Plan (08/01/2021 9:34 PM PRIVATE EQUITY ANALYST): Continue per Pulmonary Dr. Valdes Assessment & Plan (02/09/2021 8:15 PM CDT): Stop smoking. Continue per Dr. Valdes Assessment & Plan (07/29/2020 7:32 AM PRIVATE EQUITY ANALYST): Continue per Pulm Assessment & Plan (03/27/2020 8:00 AM CDT): Stop smoking. He declines starting inhalers or referral to Pulmonary Assessment & Plan (09/26/2019 10:27 PM PRIVATE EQUITY ANALYST): This is a significant, separately identifiable problem [...] order Assessment & Plan (07/29/2020 7:33 AM PRIVATE EQUITY ANALYST): Needs to repeat ---Dr. Valdes has already ordered Assessment & Plan (03/27/2020 8:00 AM CDT): 06/2019 LDCT Several 2-3mm nodules, probable benign LungRADs 2 --- repeat 06/2020 Assessment & Plan (09/26/2019 10:26 PM PRIVATE EQUITY ANALYST): 06/2019 LDCT Several 2-3mm nodules, probable benign LungRADs 2 --- repeat 06/2020 Hyperplastic rectal polyp 05/20/2019 Overview (05/20/2019): Colonoscopy 01/29/2012 at [facility]--->2021 Assessment & Plan (05/28/2019 7:33 PM CDT): Recvd colonoscopy and due to repeat in 2021 Hiatal hernia 05/20/2019 Mixed hyperlipidemia 05/20/2019 Assessment & Plan (11/19/2024 11:45 PM PRIVATE EQUITY ANALYST): Encouraged patient to follow low fat/low chol [...] 80 Assessment & Plan (11/24/2023 10:34 AM PRIVATE EQUITY ANALYST): Encouraged patient to follow low fat/low chol diet like the Mediterranean diet. Increase good fats in the diet. Increase exercise. Monitor labs as needed. Continue pravastatin 80 Assessment & Plan (08/15/2023 5:03 PM PRIVATE EQUITY ANALYST): Encouraged patient to follow low fat/low chol [...] Zetia Assessment & Plan (08/01/2021 9:33 PM PRIVATE EQUITY ANALYST): Encouraged patient to follow fat/low chol diet [...] statin Assessment & Plan (07/29/2020 7:34 AM PRIVATE EQUITY ANALYST): Encouraged patient to follow fat/low chol diet like the Mediterranean diet. Increase good fats in the diet. Increase exercise. Monitor labs as needed. Assessment & Plan (03/27/2020 8:02 AM CDT): Encouraged patient to continue low fat/low chol diet. Continue exercise. Increase good fats in the diet. Monitor labs as needed. Stable with zetia and pravastatin Assessment & Plan (09/26/2019 7:39 AM PRIVATE EQUITY ANALYST): Encouraged patient to continue low fat/low chol [...] change Assessment & Plan (08/15/2023 5:03 PM PRIVATE EQUITY ANALYST): Patient is legally blind. Continue with Ophthalmology Assessment & Plan (04/08/2023 8:47 PM CDT): No change Assessment & Plan (03/27/2020 8:02 AM CDT): No change Assessment & Plan (09/26/2019 7:39 AM PRIVATE EQUITY ANALYST): No change Assessment & Plan (05/28/2019 7:35 PM CDT): No change Cigarette smoker 05/20/2019 Assessment & Plan (08/11/2023 8:45 AM PRIVATE EQUITY ANALYST): Encouraged smoking cessation. Discussed 3 minutes. Reviewed [...] Reviewed options for assistance with cessation. Reviewed terminal superintendent sequela associated with smoking. Pt declines assistance at this time but may contact the office at anytime for further help as they desire. Assessment & Plan (08/15/2022 6:44 PM PRIVATE EQUITY ANALYST): Encouraged smoking cessation. Discussed 3 minutes. Reviewed options for assistance with cessation. Reviewed assisted sequela associated with smoking. Pt declines assistance at this time but may contact the office at anytime for further help as they desire. Assessment & Plan (05/09/2022 8:19 PM CDT): Encouraged smoking cessation. Discussed 3 minutes. Reviewed options for assistance with cessation. Reviewed terminal superintendent sequela associated with smoking. Pt declines assistance at this time but may contact the office at anytime for further help as they desire. Assessment & Plan (08/01/2021 9:33 PM PRIVATE EQUITY ANALYST): Encouraged smoking cessation. Discussed 3 minutes. Reviewed options for assistance with cessation. Reviewed terminal superintendent sequela associated with smoking. Pt declines assistance at this time but may contact the office at anytime for further help as they desire. Assessment & Plan (05/17/2021 11:41 PM CDT): Encouraged smoking cessation. Discussed 3 minutes. Reviewed options for assistance with cessation. Reviewed terminal superintendent sequela associated with smoking. Pt declines assistance at this time but may contact the office at anytime for further help as they desire. Assessment & Plan (03/12/2021 12:31 PM CDT): Encouraged smoking cessation. Discussed 3 minutes. Reviewed options for assistance with cessation. Reviewed terminal superintendent sequela associated with smoking. He is slowing down. Offered assistance. May call if decides he wants help Assessment & Plan (07/29/2020 7:34 AM PRIVATE EQUITY ANALYST): Encouraged smoking cessation. Discussed 3 minutes. Reviewed options for assistance with cessation. Reviewed assisted sequela associated with smoking. Pt declines assistance at this time but may contact the office at anytime for further help as they desire. Assessment & Plan (03/27/2020 8:02 AM CDT): Encouraged smoking cessation. Discussed 3 minutes. Reviewed options for assistance with cessation. Reviewed terminal superintendent sequela associated with smoking. Pt declines assistance at this time but may contact the office at anytime for further help as they desire. Assessment & Plan (09/26/2019 7:39 AM PRIVATE EQUITY ANALYST): Encouraged smoking cessation. Discussed 3 minutes. Reviewed [...] 05/20/2019 Assessment & Plan (11/19/2024 11:45 PM PRIVATE EQUITY ANALYST): Pre-diabetes/hyperglycemia is a precursor to Dm. Stressed [...] diabetes. Assessment & Plan (11/24/2023 10:34 AM PRIVATE EQUITY ANALYST): Pre-diabetes/hyperglycemia is a precursor to Dm. Stressed importance of working on diet (decrease your simple sugars and one carbohydrate with each meal) and increase you exercise to achieve weight loss and this will help prevent you from progressing to diabetes. Assessment & Plan (08/15/2023 5:03 PM PRIVATE EQUITY ANALYST): Pre-diabetes/hyperglycemia is a precursor to Dm. Stressed [...] diabetes. Assessment & Plan (08/01/2021 9:33 PM PRIVATE EQUITY ANALYST): Pre-diabetes/hyperglycemia is a precursor to Dm. Stressed [...] diabetes. Assessment & Plan (07/29/2020 7:34 AM PRIVATE EQUITY ANALYST): Pre-diabetes is a precursor to Dm. Stressed [...] labs Assessment & Plan (09/26/2019 10:27 PM PRIVATE EQUITY ANALYST): This is a significant, separately identifiable problem [...] 11/24/2023 Assessment & Plan (11/24/2023 10:35 AM PRIVATE EQUITY ANALYST): Encouraged healthy lifestyle, good nutrition and exercise. Encouraged Calcium and Vitamin D and weight bearing exercise for bone health. Reviewed immunizations Reviewed age appropirate screenings. Need for influenza vaccination 08/15/2023 11/24/2023 Assessment & Plan (08/15/2023 5:04 PM PRIVATE EQUITY ANALYST): Flu vaccine updated in the office today BMI 22.0-22.9, adult 07/22/2023 Assessment & Plan (08/11/2023 8:12 AM PRIVATE EQUITY ANALYST): Weight/BMI is in healthy range. Continue healthy [...] 04/03/2023 Assessment & Plan (08/15/2022 6:45 PM PRIVATE EQUITY ANALYST): Flu updated in the office today BMI [...] test outpatient. Was referred to an outside hearing care practitioner. Encouraged to consider seeing a [facility] of cardiologists so all of his providers are in the same system. He is in agreement. Referral made to Dr. Eduardo as he has multiple risk factors. BMI 23.0-23.9, adult 01/21/2022 Assessment & Plan (01/21/2022 11:10 AM CDT): Weight/BMI is in healthy range. Continue healthy lifestyle to maintain. BMI 21.0-21.9, adult 08/01/2021 Assessment & Plan (08/01/2021 7:28 AM PRIVATE EQUITY ANALYST): Weight/BMI is in healthy range. Continue healthy lifestyle to maintain. Medicare annual wellness visit, subsequent 08/01/2021 08/15/2022 Assessment & Plan (08/01/2021 9:34 PM PRIVATE EQUITY ANALYST): Encouraged healthy lifestyle, good nutrition and exercise. Encouraged Calcium and Vitamin D and weight bearing exercise for bone health. Reviewed immunizations. Reviewed age appropirate screenings. Medicare Wellness Documentation is completed within the chart Fatigue 05/17/2021 05/02/2022 Assessment & Plan (08/01/2021 9:34 PM PRIVATE EQUITY ANALYST): Probably multifactorial. Check labs and followup to [...] 024 Assessment & Plan (11/24/2023 10:34 AM PRIVATE EQUITY ANALYST): Weight/BMI is in healthy range. Continue healthy [...] 05/02/2022 Assessment & Plan (07/29/2020 7:34 AM PRIVATE EQUITY ANALYST): Probably multifactorial. Check labs and followup to re-evaluate Need for immunization against influenza 07/29/2020 11/24/2020 Assessment & Plan (07/29/2020 7:34 AM PRIVATE EQUITY ANALYST): Updated in office today BMI 22.0-22.9, adult 03/27/2020 024 Assessment & Plan (05/20/2024 7:37 PM CDT): Weight/BMI is in healthy range. Continue healthy lifestyle to maintain. Assessment & Plan (07/29/2020 7:34 AM PRIVATE EQUITY ANALYST): Weight/BMI is in healthy range. Continue healthy [...] 020 Assessment & Plan (09/26/2019 7:39 AM PRIVATE EQUITY ANALYST): Weight/BMI is in healthy range. Continue healthy lifestyle to maintain. Annual physical exam 09/26/2019 020 Assessment & Plan (09/26/2019 7:40 AM PRIVATE EQUITY ANALYST): Encouraged healthy lifestyle, good nutrition and exercise. Encouraged Calcium and Vitamin D and weight bearing exercise for bone health. Reviewed immunizations Reviewed age appropirate screenings. Influenza vaccine refused 09/26/2019 Assessment & Plan (09/26/2019 7:40 AM PRIVATE EQUITY ANALYST): Encouraged vaccine. Reviewed risks/ benefits. Patient refuses and accepts risks. Esophagitis determined by endoscopy 05/20/2019 05/02/2022 Gastritis 05/20/2019 05/02/2022 Essential (primary) hypertension 05/20/2019 05/20/2024 Assessment & Plan (11/24/2023 10:34 AM PRIVATE EQUITY ANALYST): Bp is stable/in acceptable range for any co-morbidities. Encouraged to limit sodium intake and exercise for weight control. Continue losartan 50 Assessment & Plan (08/15/2023 5:04 PM PRIVATE EQUITY ANALYST): Bp is stable/in acceptable range for any co-morbidities. Encouraged to limit sodium intake and exercise for weight control. Continue per Dr. Curtis Assessment & Plan (08/11/2023 8:45 AM PRIVATE EQUITY ANALYST): Bp is stable/in acceptable range for any [...] losartan Assessment & Plan (08/15/2022 6:44 PM PRIVATE EQUITY ANALYST): Bp is stable/in acceptable range for any [...] 50 Assessment & Plan (08/01/2021 9:33 PM PRIVATE EQUITY ANALYST): Bp is stable/in acceptable range for any [...] Losartan/HCTZ Assessment & Plan (07/29/2020 7:33 AM PRIVATE EQUITY ANALYST): Bp is stable/in acceptable range for any co-morbidities. Encouraged to limit sodium intake and exercise for weight control. Losartan and HCTZ Assessment & Plan (03/27/2020 8:00 AM CDT): Bp is stable/in acceptable range for any co-morbidities. Encouraged to limit sodium intake and exercise for weight control. Continue losartan/HCTZ Assessment & Plan (09/26/2019 7:38 AM PRIVATE EQUITY ANALYST): Bp is stable/in acceptable range for any [...] 01/21/2022 Assessment & Plan (08/01/2021 9:34 PM PRIVATE EQUITY ANALYST): Persistent hiccups. Has consulted with multiple providers [...] omeprazole Assessment & Plan (07/29/2020 7:32 AM PRIVATE EQUITY ANALYST): Continue per ENT/Pulm. He is responding to BID omeprazole. Will monitor Assessment & Plan (03/27/2020 7:59 AM CDT): Dr. Stokes started him on Pantoprazole. He hasn't noted much difference. Needs to followup to complete workup. Encouraged patient to call and make appointment. Assessment & Plan (09/26/2019 10:26 PM PRIVATE EQUITY ANALYST): This is a significant, separately identifiable problem that was evaluated and managed on the same day as the wellness exam Less frequent than in the past. Continue the PPI and monitor Rx sent to pharmacy. Assessment & Plan (08/24/2019 9:04 AM PRIVATE EQUITY ANALYST): Improving with the PPI. Continue PPI and [...] 2018 Assessment & Plan (08/24/2019 9:04 AM PRIVATE EQUITY ANALYST): Encouraged vaccine. Reviewed risks/ benefits. Patient refuses [...] Description 12/06/2024 9:30 AM CDT Office Visit [facility] Pulmonology [address] [place] [phone] Tasia Hoffman MD Chronic obstructive pulmonary disease, unspecified COPD type (HCC) (Primary Dx); Mild persistent asthma without complication; Non-seasonal allergic rhinitis due to other allergic trigger; Nicotine dependence, cigarettes, in remission 10/30/2024 9:00 AM PRIVATE EQUITY ANALYST Office Visit [facility] Family Medicine [address] [place] [address] Nuris Berger PA Annual physical exam (Primary Dx); Vitamin D deficiency; Mixed hyperlipidemia; Pre-diabetes; Chronic obstructive pulmonary disease, unspecified COPD type (HCC); Gastroesophageal reflux disease with esophagitis without hemorrhage; Chronic hiccups; BMI 23.0-23.9, adult 10/03/2024 8:56 AM PRIVATE EQUITY ANALYST - 10/03/2024 11:59 PM PRIVATE EQUITY ANALYST [facility] [place] [address] [place] [address] Pulmonary nodules Discharge Disposition: Discharge to home [...] Name Comments Blindness Father Heart attack Father [place] Heart disease Father No Known Problems Mother Relation Name Status Comments Father Mother Social History Tobacco Use Types Packs/Day Years Used Date Smoking Tobacco: Former Cigarettes 0.8 40 0 09/1981 - 09/2021 Smokeless Tobacco: Never Tobacco Cessation:Counseling Given: Not Answered Alcohol Use Standard Drinks/Week Comments Yes 0 (1 standard drink = 0.6 oz pur e alcohol) social [facility] Utilities Answer Date Recorded In the past 12 months has th e Recovr, gas, oil, or water Message Missile threatened to shut off services in your [...] often do you attend chur ch or voodoo services? Patient declined 12/03/2023 Do you belong to any clubs o r organizations such as lutheran groups, unions, fraternal or athletic groups, or [...] place to sleep or slept in a halfway (including now)? No 12/03/2023 Personal Safety Answer Date Recorded Have you ever been in or are you currently in a harmful physical or emotional relationship or is someone making you feel afraid or unsafe? Denies 08/01/2024 Sex and Gender Information Value Date Recorded Sex Assigned at Not on file Legal Sex Male 12:22 AM PRIVATE EQUITY ANALYST Gender Identity Not on file Sexual Orientation [...] Diagnosis Comments TSH Routine 10/03/2024 10:42 AM PRIVATE EQUITY ANALYST Fatigue, unspecified type LIPID PANEL Routine 10/03/2024 10:42 AM PRIVATE EQUITY ANALYST Mixed hyperlipidemia HEMOGLOBIN A1C Routine 10/03/2024 10:42 AM PRIVATE EQUITY ANALYST Pre-diabetes COMPREHENSIVE METABOLIC PANEL Routine 10/03/2024 10:42 AM PRIVATE EQUITY ANALYST Hyponatremia CBC WITH AUTO DIFFERENTIAL Routine 10/03/2024 10:42 AM PRIVATE EQUITY ANALYST Fatigue, unspecified type CT CHEST WO CONTRAST F/U LUNG SCREEN PROTOCOL Schedule Routine, Read Routine (OP Routine) 10/03/2024 9:25 AM PRIVATE EQUITY ANALYST Pulmonary nodules PSA SCREEN Routine 12/16/2022 12:39 PM CDT Prostate cancer screening HEPATITIS PANEL, ACUTE Routine 05/03/2022 5:40 AM CDT HM COLONOSCOPY Routine 07/14/2021 from Last 3 Months or Most Recently Relevant to Health Maintenance Results * (ABNORMAL) CBC with auto differential (10/03/2024 10:42 AM PRIVATE EQUITY ANALYST) WBC 7.4 3.8 - 10.8 Thousand/u L [...] t Renato Blood 10/03/2024 10:4 2 AM PRIVATE EQUITY ANALYST 10/03/2024 10:49 AM PRIVATE EQUITY ANALYST Narrative [facility] - 10/03/2024 11:53 PM PRIVATE EQUITY ANALYST FASTING:YES FASTING: YES Result Jessica ROBLES LAB BLOOD ORDERABLES Final Result Performing Organization Address [facility] de Phone Number [facility] [address] [place] [address] * TSH (10/03/2024 10:42 AM PRIVATE EQUITY ANALYST) Pathologist [facility] TSH 1.29 0.40 - 4.50 mIU/L [facility] Blood 10/03/2024 10:4 2 AM PRIVATE EQUITY ANALYST 10/03/2024 10:49 AM PRIVATE EQUITY ANALYST Narrative [facility] - 10/03/2024 11:53 PM PRIVATE EQUITY ANALYST FASTING:YES FASTING: YES Result Jessica ROBLES LAB BLOOD ORDERABLES Final Result Performing Organization Address [facility] Phone Number [facility] [address] [place] [address] * (ABNORMAL) Hemoglobin A1c (10/03/2024 10:42 AM PRIVATE EQUITY ANALYST) Pathologist [facility] Hgb A1C 5.7(H) <5.7 % of total Hgb [facility] Comment: For someone without known diabetes, a [...] for children. Blood 10/03/2024 10:4 2 AM PRIVATE EQUITY ANALYST 10/03/2024 10:49 AM PRIVATE EQUITY ANALYST Narrative [facility] - 10/03/2024 11:53 PM PRIVATE EQUITY ANALYST FASTING:YES FASTING: YES Result Jessica ROBLES LAB BLOOD ORDERABLES Final Result Performing Organization Address [facility]/ZIP Co de Phone Number DMITRI [facility] [address] [place] [address] * Lipid panel (10/03/2024 10:42 AM PRIVATE EQUITY ANALYST) Pathologist [facility] Cholesterol 152 <200 mg/dL Dmitri [facility] HDL 52 > OR = 40 mg/dL Dmitri [employer] [facility] Triglycerides 72 <150 mg/dL [facility] LDL 84 mg/dL (calc) [facility] hernandez Renato Comment: Reference range: <100 Desirable range <100 mg/dL for primary prevention; <70 mg/dL for patients with CHD or diabetic patients with > or = 2 CHD risk factors. LDL-C is now calculated using the Jacob calculation, which is a validated novel method providing better accuracy than the Friedewald equation in the estimation of LDL-C. Adal BERRIOS et al. NICOLE. 2013;310(19): 9571-9438 (http://education.[employer]/faq/PUX282) Chol/HDL ratio 2.9 <5.0 (calc) Dmitri [facility] Non-HDL, (LDL+VLDL) 100 <130 mg/dL (calc) [employer] hern[facility] Renato Comment: For patients with diabetes plus 1 major ASCVD risk factor, treating to a non-HDL-C goal of <100 mg/dL (LDL-C of <70 mg/dL) is considered a therapeutic option. Blood 10/03/2024 10:4 2 AM PRIVATE EQUITY ANALYST 10/03/2024 10:49 AM PRIVATE EQUITY ANALYST Narrative [facility] - 10/03/2024 11:53 PM PRIVATE EQUITY ANALYST FASTING:YES FASTING: YES Nuris ROBLES LAB BLOOD ORDERABLES Final Result Performing Organization Address City/[facility]/ZIP Co de Phone Number DM[facility]RI [facility] [address] [place] [address] * (ABNORMAL) Comprehensive metabolic panel (10/03/2024 10:42 AM PRIVATE EQUITY ANALYST) Pathologist [facility] Glucose 84 65 - 99 mg/dL Dmitri [employer] [facility] Comment: Fasting reference interval BUN 12 7 - 25 mg/dL Dmitri [employer] [facility] Creatinine 0.94 0.70 - 1.35 [...] [facility] Blood 10/03/2024 10:4 2 AM PRIVATE EQUITY ANALYST 10/03/2024 10:49 AM PRIVATE EQUITY ANALYST Narrative [facility] - 10/03/2024 11:53 PM PRIVATE EQUITY ANALYST FASTING:YES FASTING: YES us Nuris [facility] BLOOD ORDERABLES Final Result [address] [place] [address] * CT Chest WO Contrast F/U Lung Screen Protocol (10/03/2024 9:25 AM PRIVATE EQUITY ANALYST) Anatomical Region Laterality Modality Chest N/A Computed Tomogra phy 10/03/2024 7:11 PM PRIVATE EQUITY ANALYST Narrative 10/03/2024 7:17 PM PRIVATE EQUITY ANALYST EXAM DESCRIPTION: CT CHEST WO CONTRAST F/U [...] Estuardo Ortiz M.D. KT T: Report ID: [id number] Reading Location: [place] [id number] us Tasia Hoffman MD IM CT PROCEDURES [...] BLOOD ORDERABLES Final Result Performing Organization Address [facility]/ZIP Co de Phone Number [address] [place] [address] * Hepatitis panel, acute (05/03/2022 5:40 AM CDT) Hep A IgM Nonreactive Nonreactive [facility] Comment: Interpretive Data: If Hep A IgM Ab is reported as Equivocal, a new sample should be drawn in two weeks for testing. Current interpretive data was last revised on 19. Hep B core IgM Nonreactive Nonreactive [facility] Comment: Interpretive Data If HepB Core IgM Ab is reported as Equivocal, a new sample should be drawn in two weeks for testing. Current interpretive data was last revised on 19. Hep C Ab Nonreactive Nonreactive [facility] Comment: Interpretive Data Nonreactive: Antibodies to HCV [...] last revised on 2019. HepBsAg Nonreactive Nonreactive [facility] Blood 05/03/2022 5:40 AM CDT 05/03/2022 6:36 AM CDT Pamela Gongora DO LAB MICROBIOLOGY - GENERAL OR DERABLES Final Result Performing Organization Address City/[facility]/ZIP Co de Phone Number [address] [place] [address] * (ABNORMAL) HM COLONOSCOPY (07/14/2021) Jame Mg MD HEALTH MAINTENANCE Edited Result - Final from Last 3 Months or Most Recently Relevant to Health Maintenance Insurance AET MEDICARE GOLD Advance Directives For more information, please contact: [phone] * Full Code (Latest Code Status on [...] 10:34 PM 11/16/2022 9:56 PM 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 [place] [place] [address] [place] [address] PCP - General Internal Medicine 12/28/18 Jonatan Stokes MD [address] [place] [address] Consulting Physician Otolaryngology 03/27/20 Irma Bajwa MD [address] [place] [address] Consulting Physician Neurology 05/07/22
--- OUTSIDE RECORDS SUMMARY | 2024-12-26 06:18 | XMS_ITS | Referral Summary ---
Author Organization [facility] [place] [address] [facility] Address [address] [place] [address] Care Team Providers Care Toll Gate Keeper Name Role Phone Nuris Berger Primary Care Provider [phone] Jonatan Stokes MD Unavailable [phone] Irma Bajwa MD Unavailable [phone] Encounters Date Type Department Care Team Description 12/06/2024 9:30 AM CDT Office Visit [facility] [address] [facility] [address] [place] [address] Tasia Hoffman MD Chronic obstructive pulmonary disease, unspecified COPD type (HCC) (Primary Dx); Mild persistent asthma without complication; Non-seasonal allergic rhinitis due to other allergic trigger; Nicotine dependence, cigarettes, in remission 10/30/2024 9:00 AM HOME THEATER SPECIALIST Office Visit [facility] [address] [place] [address] Nuris Berger PA Annual physical exam (Primary Dx); Vitamin D deficiency; Mixed hyperlipidemia; Pre-diabetes; Chronic obstructive pulmonary disease, unspecified COPD type (HCC); Gastroesophageal reflux disease with esophagitis without hemorrhage; Chronic hiccups; BMI 23.0-23.9, adult 10/03/2024 8:56 AM HOME THEATER SPECIALIST - 10/03/2024 11:59 PM HOME THEATER SPECIALIST Hospital Encounter [facility] [address] [place] [address] Pulmonary nodules Discharge Disposition: Discharge to home [...] 11/19/2024 Assessment & Plan (11/19/2024 11:45 PM HOME THEATER SPECIALIST): Encouraged healthy lifestyle, good nutrition and exercise. Encouraged Calcium and Vitamin D and weight bearing exercise for bone health. Reviewed immunizations Reviewed age appropirate screenings. BMI 23.0-23.9, adult 06/20/2024 Assessment & Plan (10/30/2024 8:57 AM HOME THEATER SPECIALIST): Weight/BMI is in healthy range. Continue healthy lifestyle to maintain. Assessment & Plan (06/20/2024 7:44 AM CDT): Weight/BMI is in healthy range. Continue healthy lifestyle to maintain. Vitamin D deficiency 11/24/2023 Assessment & Plan (11/19/2024 11:45 PM HOME THEATER SPECIALIST): Supplement Assessment & Plan (05/20/2024 7:36 PM CDT): Supplement Fatigue 12/12/2022 Assessment & Plan (05/20/2024 7:37 PM CDT): Probably multifactorial. Check labs and followup to re-evaluate Assessment & Plan (11/24/2023 10:35 AM HOME THEATER SPECIALIST): Probably multifactorial. Check labs and followup to [...] 01/16/2022 Assessment & Plan (11/19/2024 11:44 PM HOME THEATER SPECIALIST): Chronic hiccups for 5+ years Has been [...] to the ER. ER recommended referral to [facility] but patient states he can't go to [...] weeks Assessment & Plan (11/24/2023 10:34 AM HOME THEATER SPECIALIST): Patient has persistent chronic hiccups that come [...] monitor Assessment & Plan (08/15/2023 5:01 PM HOME THEATER SPECIALIST): Chronic hiccups for years. Has tried multiple interventions along with multiple workups from specialists including Neurology pulmonology and GI. Continue current regimen. Stressed importance of limiting water intake when he has the hiccups spells as this has been leading to hyponatremia requiring hospitalization. Assessment & Plan (08/11/2023 8:45 AM HOME THEATER SPECIALIST): Patient with chronic hiccups. Have had difficulty [...] levels. Assessment & Plan (08/15/2022 6:45 PM HOME THEATER SPECIALIST): Patient has consulted with most multiple specialists [...] hiccups. Assessment & Plan (08/15/2023 5:02 PM HOME THEATER SPECIALIST): Chronic hiccups for years. Has tried multiple interventions along with multiple workups from specialists including Neurology pulmonology and GI. Continue current regimen. Stressed importance of limiting water intake when he has the hiccups spells as this has been leading to hyponatremia requiring hospitalization. Assessment & Plan (08/11/2023 8:46 AM HOME THEATER SPECIALIST): Hyponatremia secondary to water intake with chronic [...] 07/14/2019 Assessment & Plan (11/19/2024 11:44 PM HOME THEATER SPECIALIST): Continue PPI p.r.n. Assessment & Plan (05/20/2024 7:35 PM CDT): Continue pantoprazole p.r.n. Assessment & Plan (11/24/2023 10:33 AM HOME THEATER SPECIALIST): Continue pantoprazole p.r.n. Assessment & Plan (04/08/2023 8:48 PM CDT): Continue PPI p.r.n. Assessment & Plan (12/12/2022 9:43 PM CDT): Insert PPI Assessment & Plan (08/15/2022 6:45 PM HOME THEATER SPECIALIST): Continue PPI prn Assessment & Plan (02/09/2021 8:17 PM CDT): Continue PPI Assessment & Plan (07/29/2020 7:33 AM HOME THEATER SPECIALIST): Continue PPI Assessment & Plan (03/27/2020 8:01 AM CDT): Dr. Stokes changed him from omeprazole to Pantoprazole for the hiccups. Pt hasn't noted any difference in GERD sxs (still well controlled) or hiccups. Assessment & Plan (09/26/2019 7:38 AM HOME THEATER SPECIALIST): Continue PPI Assessment & Plan (07/14/2019 8:46 AM CDT): Discussed GERD at length including anatomy, behavioral changes (raise HOB, meal timings), dietary changes and medication options. Reviewed risks, benefits alternatives, side effects and proper use. Followup if sxs worsen or has hematochezia or hematemeis. Start PPI Chronic obstructive pulmonary disease 06/26/2019 Overview (06/26/2019): Noted on 06/2019 LDCT Assessment & Plan (11/19/2024 11:44 PM HOME THEATER SPECIALIST): Patient with allergies and COPD. Continue Singulair albuterol and Symbicort. Follows with Dr. Valdes. Assessment & Plan (05/20/2024 7:35 PM CDT): Continue per Dr. Valdes. Continue with his Symbicort and albuterol inhalers. Low-dose CT will be scheduled for June 16, 2024. Assessment & Plan (11/24/2023 10:33 AM HOME THEATER SPECIALIST): COPD. Continue per Dr. Hammond his prevention rn Continue Symbicort Singulair and albuterol p.r.n. Assessment & Plan (04/08/2023 8:48 PM CDT): Encouraged smoking cessation. Continue per Dr. Hammond pulmonology. He is on albuterol Symbicort and Singulair Assessment & Plan (12/12/2022 9:43 PM CDT): Stop smoking. Continue per Pulmonary. Continue Symbicort Singulair and albuterol. Continue monitoring low-dose CTs as instructed Assessment & Plan (08/15/2022 6:44 PM HOME THEATER SPECIALIST): Stop smoking. Continue current plan per Pulmonary Assessment & Plan (08/01/2021 9:34 PM HOME THEATER SPECIALIST): Continue per Pulmonary Dr. Valdes Assessment & Plan (02/09/2021 8:15 PM CDT): Stop smoking. Continue per Dr. Valdes Assessment & Plan (07/29/2020 7:32 AM HOME THEATER SPECIALIST): Continue per Pulm Assessment & Plan (03/27/2020 8:00 AM CDT): Stop smoking. He declines starting inhalers or referral to Pulmonary Assessment & Plan (09/26/2019 10:27 PM HOME THEATER SPECIALIST): This is a significant, separately identifiable problem [...] order Assessment & Plan (07/29/2020 7:33 AM HOME THEATER SPECIALIST): Needs to repeat ---Dr. Valdes has already ordered Assessment & Plan (03/27/2020 8:00 AM CDT): 06/2019 LDCT Several 2-3mm nodules, probable benign LungRADs 2 --- repeat 06/2020 Assessment & Plan (09/26/2019 10:26 PM HOME THEATER SPECIALIST): 06/2019 LDCT Several 2-3mm nodules, probable benign LungRADs 2 --- repeat 06/2020 Hyperplastic rectal polyp 05/20/2019 Overview (05/20/2019): Colonoscopy 01/29/2012 at [facility]--->2021 Assessment & Plan (05/28/2019 7:33 PM CDT): Recvd colonoscopy and due to repeat in 2021 Hiatal hernia 05/20/2019 Mixed hyperlipidemia 05/20/2019 Assessment & Plan (11/19/2024 11:45 PM HOME THEATER SPECIALIST): Encouraged patient to follow low fat/low chol [...] 80 Assessment & Plan (11/24/2023 10:34 AM HOME THEATER SPECIALIST): Encouraged patient to follow low fat/low chol diet like the Mediterranean diet. Increase good fats in the diet. Increase exercise. Monitor labs as needed. Continue pravastatin 80 Assessment & Plan (08/15/2023 5:03 PM HOME THEATER SPECIALIST): Encouraged patient to follow low fat/low chol [...] Zetia Assessment & Plan (08/01/2021 9:33 PM HOME THEATER SPECIALIST): Encouraged patient to follow fat/low chol diet [...] statin Assessment & Plan (07/29/2020 7:34 AM HOME THEATER SPECIALIST): Encouraged patient to follow fat/low chol diet like the Mediterranean diet. Increase good fats in the diet. Increase exercise. Monitor labs as needed. Assessment & Plan (03/27/2020 8:02 AM CDT): Encouraged patient to continue low fat/low chol diet. Continue exercise. Increase good fats in the diet. Monitor labs as needed. Stable with zetia and pravastatin Assessment & Plan (09/26/2019 7:39 AM HOME THEATER SPECIALIST): Encouraged patient to continue low fat/low chol [...] change Assessment & Plan (08/15/2023 5:03 PM HOME THEATER SPECIALIST): Patient is legally blind. Continue with Ophthalmology Assessment & Plan (04/08/2023 8:47 PM CDT): No change Assessment & Plan (03/27/2020 8:02 AM CDT): No change Assessment & Plan (09/26/2019 7:39 AM HOME THEATER SPECIALIST): No change Assessment & Plan (05/28/2019 7:35 PM CDT): No change Cigarette smoker 05/20/2019 Assessment & Plan (08/11/2023 8:45 AM HOME THEATER SPECIALIST): Encouraged smoking cessation. Discussed 3 minutes. Reviewed options for assistance with cessation. Reviewed fpc sequela associated with smoking. Pt declines assistance at this time but may contact the office at anytime for further help as they desire. Assessment & Plan (04/08/2023 8:47 PM CDT): Encouraged smoking cessation. Discussed 3 minutes. Reviewed options for assistance with cessation. Reviewed fpc sequela associated with smoking. Pt declines assistance at this time but may contact the office at anytime for further help as they desire. Low-dose CT will be due in May. It is already scheduled Assessment & Plan (12/12/2022 9:42 PM CDT): Encouraged smoking cessation. Discussed 3 minutes. Reviewed options for assistance with cessation. Reviewed termite technician sequela associated with smoking. Pt declines assistance at this time but may contact the office at anytime for further help as they desire. Assessment & Plan (08/15/2022 6:44 PM HOME THEATER SPECIALIST): Encouraged smoking cessation. Discussed 3 minutes. Reviewed options for assistance with cessation. Reviewed termite technician sequela associated with smoking. Pt declines assistance at this time but may contact the office at anytime for further help as they desire. Assessment & Plan (05/09/2022 8:19 PM CDT): Encouraged smoking cessation. Discussed 3 minutes. Reviewed options for assistance with cessation. Reviewed fpc sequela associated with smoking. Pt declines assistance at this time but may contact the office at anytime for further help as they desire. Assessment & Plan (08/01/2021 9:33 PM HOME THEATER SPECIALIST): Encouraged smoking cessation. Discussed 3 minutes. Reviewed options for assistance with cessation. Reviewed fpc sequela associated with smoking. Pt declines assistance at this time but may contact the office at anytime for further help as they desire. Assessment & Plan (05/17/2021 11:41 PM CDT): Encouraged smoking cessation. Discussed 3 minutes. Reviewed options for assistance with cessation. Reviewed termite technician sequela associated with smoking. Pt declines assistance at this time but may contact the office at anytime for further help as they desire. Assessment & Plan (03/12/2021 12:31 PM CDT): Encouraged smoking cessation. Discussed 3 minutes. Reviewed options for assistance with cessation. Reviewed termite technician sequela associated with smoking. He is slowing down. Offered assistance. May call if decides he wants help Assessment & Plan (07/29/2020 7:34 AM HOME THEATER SPECIALIST): Encouraged smoking cessation. Discussed 3 minutes. Reviewed options for assistance with cessation. Reviewed fpc sequela associated with smoking. Pt declines assistance at this time but may contact the office at anytime for further help as they desire. Assessment & Plan (03/27/2020 8:02 AM CDT): Encouraged smoking cessation. Discussed 3 minutes. Reviewed options for assistance with cessation. Reviewed termite technician sequela associated with smoking. Pt declines assistance at this time but may contact the office at anytime for further help as they desire. Assessment & Plan (09/26/2019 7:39 AM HOME THEATER SPECIALIST): Encouraged smoking cessation. Discussed 3 minutes. Reviewed options for assistance with cessation. Reviewed fpc sequela associated with smoking. Pt declines assistance at this time but may contact the office at anytime for further help as they desire. Assessment & Plan (07/14/2019 7:05 PM CDT): Encouraged smoking cessation. Discussed 3 minutes. Reviewed options for assistance with cessation. Reviewed termite technician sequela associated with smoking. Pt declines assistance [...] 05/20/2019 Assessment & Plan (11/19/2024 11:45 PM HOME THEATER SPECIALIST): Pre-diabetes/hyperglycemia is a precursor to Dm. Stressed [...] diabetes. Assessment & Plan (11/24/2023 10:34 AM HOME THEATER SPECIALIST): Pre-diabetes/hyperglycemia is a precursor to Dm. Stressed importance of working on diet (decrease your simple sugars and one carbohydrate with each meal) and increase you exercise to achieve weight loss and this will help prevent you from progressing to diabetes. Assessment & Plan (08/15/2023 5:03 PM HOME THEATER SPECIALIST): Pre-diabetes/hyperglycemia is a precursor to Dm. Stressed [...] diabetes. Assessment & Plan (08/01/2021 9:33 PM HOME THEATER SPECIALIST): Pre-diabetes/hyperglycemia is a precursor to Dm. Stressed [...] diabetes. Assessment & Plan (07/29/2020 7:34 AM HOME THEATER SPECIALIST): Pre-diabetes is a precursor to Dm. Stressed [...] labs Assessment & Plan (09/26/2019 10:27 PM HOME THEATER SPECIALIST): This is a significant, separately identifiable problem [...] 024 Assessment & Plan (11/24/2023 10:35 AM HOME THEATER SPECIALIST): Encouraged healthy lifestyle, good nutrition and exercise. Encouraged Calcium and Vitamin D and weight bearing exercise for bone health. Reviewed immunizations Reviewed age appropirate screenings. Need for influenza vaccination 08/15/2023 11/24/2023 Assessment & Plan (08/15/2023 5:04 PM HOME THEATER SPECIALIST): Flu vaccine updated in the office today BMI 22.0-22.9, adult 07/22/2023 024 Assessment & Plan (08/11/2023 8:12 AM HOME THEATER SPECIALIST): Weight/BMI is in healthy range. Continue healthy [...] 04/03/2023 Assessment & Plan (08/15/2022 6:45 PM HOME THEATER SPECIALIST): Flu updated in the office today BMI [...] test outpatient. Was referred to an outside dj instructor. Encouraged to consider seeing a [facility] group of cardiologists so all of his providers are in the same system. He is in agreement. Referral made to Dr. Eduardo as he has multiple risk factors. BMI 23.0-23.9, adult 01/21/2022 022 Assessment & Plan (01/21/2022 11:10 AM CDT): Weight/BMI is in healthy range. Continue healthy lifestyle to maintain. BMI 21.0-21.9, adult 08/01/2021 022 Assessment & Plan (08/01/2021 7:28 AM HOME THEATER SPECIALIST): Weight/BMI is in healthy range. Continue healthy lifestyle to maintain. Medicare annual wellness visit, subsequent 08/01/2021 08/15/2022 Assessment & Plan (08/01/2021 9:34 PM HOME THEATER SPECIALIST): Encouraged healthy lifestyle, good nutrition and exercise. Encouraged Calcium and Vitamin D and weight bearing exercise for bone health. Reviewed immunizations. Reviewed age appropirate screenings. Medicare Wellness Documentation is completed within the chart Fatigue 05/17/2021 05/02/2022 Assessment & Plan (08/01/2021 9:34 PM HOME THEATER SPECIALIST): Probably multifactorial. Check labs and followup to [...] 024 Assessment & Plan (11/24/2023 10:34 AM HOME THEATER SPECIALIST): Weight/BMI is in healthy range. Continue healthy [...] 05/02/2022 Assessment & Plan (07/29/2020 7:34 AM HOME THEATER SPECIALIST): Probably multifactorial. Check labs and followup to re-evaluate Need for immunization against influenza 07/29/2020 11/24/2020 Assessment & Plan (07/29/2020 7:34 AM HOME THEATER SPECIALIST): Updated in office today BMI 22.0-22.9, adult 03/27/2020 024 Assessment & Plan (05/20/2024 7:37 PM CDT): Weight/BMI is in healthy range. Continue healthy lifestyle to maintain. Assessment & Plan (07/29/2020 7:34 AM HOME THEATER SPECIALIST): Weight/BMI is in healthy range. Continue healthy [...] 020 Assessment & Plan (09/26/2019 7:39 AM HOME THEATER SPECIALIST): Weight/BMI is in healthy range. Continue healthy lifestyle to maintain. Annual physical exam 09/26/2019 020 Assessment & Plan (09/26/2019 7:40 AM HOME THEATER SPECIALIST): Encouraged healthy lifestyle, good nutrition and exercise. Encouraged Calcium and Vitamin D and weight bearing exercise for bone health. Reviewed immunizations Reviewed age appropirate screenings. Influenza vaccine refused 09/26/2019 Assessment & Plan (09/26/2019 7:40 AM HOME THEATER SPECIALIST): Encouraged vaccine. Reviewed risks/ benefits. Patient refuses and accepts risks. Esophagitis determined by endoscopy 05/20/2019 05/02/2022 Gastritis 05/20/2019 05/02/2022 Essential (primary) hypertension 05/20/2019 05/20/2024 Assessment & Plan (11/24/2023 10:34 AM HOME THEATER SPECIALIST): Bp is stable/in acceptable range for any co-morbidities. Encouraged to limit sodium intake and exercise for weight control. Continue losartan 50 Assessment & Plan (08/15/2023 5:04 PM HOME THEATER SPECIALIST): Bp is stable/in acceptable range for any co-morbidities. Encouraged to limit sodium intake and exercise for weight control. Continue per Dr. Curtis Assessment & Plan (08/11/2023 8:45 AM HOME THEATER SPECIALIST): Bp is stable/in acceptable range for any [...] losartan Assessment & Plan (08/15/2022 6:44 PM HOME THEATER SPECIALIST): Bp is stable/in acceptable range for any [...] 50 Assessment & Plan (08/01/2021 9:33 PM HOME THEATER SPECIALIST): Bp is stable/in acceptable range for any [...] Losartan/HCTZ Assessment & Plan (07/29/2020 7:33 AM HOME THEATER SPECIALIST): Bp is stable/in acceptable range for any co-morbidities. Encouraged to limit sodium intake and exercise for weight control. Losartan and HCTZ Assessment & Plan (03/27/2020 8:00 AM CDT): Bp is stable/in acceptable range for any co-morbidities. Encouraged to limit sodium intake and exercise for weight control. Continue losartan/HCTZ Assessment & Plan (09/26/2019 7:38 AM HOME THEATER SPECIALIST): Bp is stable/in acceptable range for any [...] 01/21/2022 Assessment & Plan (08/01/2021 9:34 PM HOME THEATER SPECIALIST): Persistent hiccups. Has consulted with multiple providers [...] omeprazole Assessment & Plan (07/29/2020 7:32 AM HOME THEATER SPECIALIST): Continue per ENT/Pulm. He is responding to BID omeprazole. Will monitor Assessment & Plan (03/27/2020 7:59 AM CDT): Dr. Stokes started him on Pantoprazole. He hasn't noted much difference. Needs to followup to complete workup. Encouraged patient to call and make appointment. Assessment & Plan (09/26/2019 10:26 PM HOME THEATER SPECIALIST): This is a significant, separately identifiable problem that was evaluated and managed on the same day as the wellness exam Less frequent than in the past. Continue the PPI and monitor Rx sent to pharmacy. Assessment & Plan (08/24/2019 9:04 AM HOME THEATER SPECIALIST): Improving with the PPI. Continue PPI and [...] 2018 Assessment & Plan (08/24/2019 9:04 AM HOME THEATER SPECIALIST): Encouraged vaccine. Reviewed risks/ benefits. Patient refuses [...] = 0.6 oz pur e alcohol) social [employer] Util[employer] Answer Date Recorded In the past 12 months has [email or web address], gas, oil, or water [employer] threatened to shut off services in your [...] often do you attend chur ch or rastafari services? Patient declined 12/03/2023 Do you belong to any clubs o r organizations such as buddhism groups, unions, fraternal or athletic groups, or [...] place to sleep or slept in a chcf (including now)? No 12/03/2023 Personal Safety Answer Date Recorded Have you ever been in or are you currently in a harmful physical or emotional relationship or is someone making you feel afraid or unsafe? Denies 08/01/2024 Sex and Gender Information Value Date Recorded Sex Assigned at Not on file Legal Sex Male 12:22 AM HOME THEATER SPECIALIST Gender Identity Not on file Sexual Orientation [...] Diagnosis Comments TSH Routine 10/03/2024 10:42 AM HOME THEATER SPECIALIST Fatigue, unspecified type LIPID PANEL Routine 10/03/2024 10:42 AM HOME THEATER SPECIALIST Mixed hyperlipidemia HEMOGLOBIN A1C Routine 10/03/2024 10:42 AM HOME THEATER SPECIALIST Pre-diabetes COMPREHENSIVE METABOLIC PANEL Routine 10/03/2024 10:42 AM HOME THEATER SPECIALIST Hyponatremia CBC WITH AUTO DIFFERENTIAL Routine 10/03/2024 10:42 AM HOME THEATER SPECIALIST Fatigue, unspecified type CT CHEST WO CONTRAST F/U LUNG SCREEN PROTOCOL Schedule Routine, Read Routine (OP Routine) 10/03/2024 9:25 AM HOME THEATER SPECIALIST Pulmonary nodules PSA SCREEN Routine 12/16/2022 12:39 PM CDT Prostate cancer screening HEPATITIS PANEL, ACUTE Routine 05/03/2022 5:40 AM CDT HM COLONOSCOPY Routine 07/14/2021 from Last 3 Months or Most Recently Relevant to Health Maintenance Results * (ABNORMAL) CBC with auto differential (10/03/2024 10:42 AM HOME THEATER SPECIALIST) Pathologist [facility] WBC 7.4 3.8 - 10.8 Thousand/u L [...] mary Gross Blood 10/03/2024 10:4 2 AM HOME THEATER SPECIALIST 10/03/2024 10:49 AM HOME THEATER SPECIALIST Narrative [facility] - 10/03/2024 11:53 PM HOME THEATER SPECIALIST FASTING:YES FASTING: YES Nuris ROBLES LAB BLOOD ORDERABLES Final Result Performing Organization Address [facility] Co de Phone Number DMITRI SolorzanoDr. Dan C. Trigg Memorial HospitalEricka [address] [place] [address] * TSH (10/03/2024 10:42 AM HOME THEATER SPECIALIST) [facility] TSH 1.29 0.40 - 4.50 mIU/L Josey Ellis Commercial Real Estate InvestmentsDr. Dan C. Trigg Memorial HospitalEricka Blood 10/03/2024 10:4 2 AM HOME THEATER SPECIALIST 10/03/2024 10:49 AM HOME THEATER SPECIALIST Narrative [facility] - 10/03/2024 11:53 PM HOME THEATER SPECIALIST FASTING:YES FASTING: YES Nuris ROBLES LAB BLOOD ORDERABLES Final Result Performing Organization Address [facility] de Phone Number DMITRI SolorzanoResearch [facility] [address] [place] [address] * (ABNORMAL) Hemoglobin A1c (10/03/2024 10:42 AM HOME THEATER SPECIALIST) Pathologist [facility] Hgb A1C 5.7(H) <5.7 % of total [...] for children. Blood 10/03/2024 10:4 2 AM HOME THEATER SPECIALIST 10/03/2024 10:49 AM HOME THEATER SPECIALIST Narrative [facility] - 10/03/2024 11:53 PM HOME THEATER SPECIALIST FASTING:YES FASTING: YES Nuris ROBLES LAB BLOOD ORDERABLES Final Result Performing Organization Address [facility]/ZIP Co de Phone Number [employer] Enc[employer] TechnologiesResearch [facility] [address] [place] [address] * Lipid panel (10/03/2024 10:42 AM HOME THEATER SPECIALIST) [facility] Cholesterol 152 <200 mg/dL [employer] Renato HDL 52 > OR = 40 mg/dL [employer] mary Gross Triglycerides 72 <150 mg/dL [employer] mary Gross LDL 84 mg/dL (calc) [employer] mary Gross Comment: Reference range: <100 Desirable range <100 mg/dL for primary prevention; <70 mg/dL for patients with CHD or diabetic patients with > or = 2 CHD risk factors. LDL-C is now calculated using the Jacob calculation, which is a validated novel method providing better accuracy than the Friedewald equation in the estimation of LDL-C. Adal SS et al. NICOLE. 2013;310(19): 3572-0888 (http://education.RegBinder/faq/QYK108) Chol/HDL ratio 2.9 <5.0 (calc) [employer] mary Gross Non-HDL, (LDL+VLDL) 100 <130 mg/dL (calc) [employer] mary Gross Comment: For patients with diabetes plus 1 major ASCVD risk factor, treating to a non-HDL-C goal of <100 mg/dL (LDL-C of <70 mg/dL) is considered a therapeutic option. Blood 10/03/2024 10:4 2 AM HOME THEATER SPECIALIST 10/03/2024 10:49 AM HOME THEATER SPECIALIST Narrative [facility] - 10/03/2024 11:53 PM HOME THEATER SPECIALIST FASTING:YES FASTING: YES Nuris ROBLES LAB BLOOD ORDERABLES Final Result Performing Organization Address [facility] Co de Phone Number [facility] [address] [place] [address] * (ABNORMAL) Comprehensive metabolic panel (10/03/2024 10:42 AM HOME THEATER SPECIALIST) Pathologist [facility] Glucose 84 65 - 99 mg/dL Dmitri [...] Calcium 9.8 8.6 - 10.3 mg/dL Dmitri [employer] Protein, sr 6.6 6.1 - 8.1 g/dL Dmitri [employer] Albumin 4.2 3.6 - 5.1 g/dL Dmitri [employer] GLOBULIN 2.4 1.9 - 3.7 g/dL (calc) Dmitri [employer] Alb/glob ratio 1.8 1.0 - 2.5 (calc) Dmitri [employer] Bilirubin, total 0.4 0.2 - 1.2 mg/dL Dmitri [employer] Alk phos 53 35 - 144 U/L Dmitri [employer] AST 8(L) 10 - 35 U/L Dmitri [employer] ALT (SGPT) 6(L) 9 - 46 U/L Dmitri [employer] Blood 10/03/2024 10:4 2 AM HOME THEATER SPECIALIST 10/03/2024 10:49 AM HOME THEATER SPECIALIST Narrative [facility] - 10/03/2024 11:53 PM HOME THEATER SPECIALIST FASTING:YES FASTING: YES us Nuris ROBLES LAB BLOOD ORDERABLES Final Result [facility]mitri [facility] [address] [place] [address] * CT Chest WO Contrast F/U Lung Screen Protocol (10/03/2024 9:25 AM HOME THEATER SPECIALIST) Anatomical Region Laterality Modality Chest N/A Computed Tomogra phy 10/03/2024 7:11 PM HOME THEATER SPECIALIST Narrative 10/03/2024 7:17 PM HOME THEATER SPECIALIST EXAM DESCRIPTION: CT CHEST WO CONTRAST F/U [...] Estuardo Ortiz M.D. KT T: Report ID: [id number] Reading Location: [id number] us Tasia Hoffman MD IMG CT PROCEDURES [...] Nuris ROBLES LAB BLOOD ORDERABLES Final Result [facility] [address] [facility] [place] [address] * Hepatitis panel, acute (05/03/2022 5:40 AM CDT) Hep A IgM Nonreactive Nonreactive [facility] Comment: Interpretive Data: If Hep A IgM Ab is reported as Equivocal, a new sample should be drawn in two weeks for testing. Current interpretive data was last revised on 19. Hep B core IgM Nonreactive Nonreactive [facility] Comment: Interpretive Data If HepB Core IgM Ab is reported as Equivocal, a new sample should be drawn in two weeks for testing. Current interpretive data was last revised on 19. Hep C Ab Nonreactive Nonreactive [facility] Comment: Interpretive Data Nonreactive: Antibodies to [...] last revised on 2019. HepBsAg Nonreactive Nonreactive [facility] Blood 05/03/2022 5:40 AM CDT 05/03/2022 6:36 AM CDT Pamela Gongora DO LAB MICROBIOLOGY - GENERAL OR DERABLES Final Result [facility] [address] [facility] Department [place] [address] * (ABNORMAL) HM COLONOSCOPY (07/14/2021) Jame Mg MD HEALTH MAINTENANCE Edited Result - Final from Last 3 Months or Most Recently Relevant to Health Maintenance Insurance T MEDICARE [facility] TNA MEDICARE GOLD AETNA MEDICARE GOLD Advance Directives For more information, please contact: [phone] * Full Code (Latest Code Status on [...] 10:34 PM 11/16/2022 9:56 PM Care Teams Toll Gate Keeper Relationship Specialty Start Date End Date Nuris Berger PA [address] [facility] [address] [place] [address] PCP - General Internal Medicine 12/28/18 Jonatan Stokes MD [address] [place] [address] Consulting Physician Otolaryngology 03/27/20 Irma Bajwa MD [address] [place] [address] Consulting Physician Neurology 05/07/22
--- NOTE | 2024-12-26 06:22 | ECG_ITS ---
Test Date: 2024-12-26 06:32:08 Measurements Intervals [place] Rate: 70 P: 28 TN: 146 QRS: 13 QRSD: 93 T: 17 QT: 382 QTc: 414 Interpretive Statements SINUS RHYTHM MINIMAL Q WAVES- HIGH LAT/LAT LEADS BASELINE ARTIFACT- I, II, III, AVR, AVL, AVF, V1-V6 BORDERLINE ECG Compared to ECG 06/28/2024 12:19:22 No significant changes Electronically Signed On 12-26-2024 06:33:34 CDT by Mika Lopez D.O.
--- NOTE | 2024-12-26 06:30 | PC.NURSE ---
Pt Svitlana in contacts, asked to be notified when the decision is made on if pt is going to be discharged or admitted.
[2024-12-26 06:45] LABS: Hematocrit 33.6 % (42.0-52.0); Hemoglobin 11.6 g/dL (14.0-18.0); Mean Corpuscular HGB Conc 34.5 g/dl (32-36); Mean Corpuscular Hemoglobin 29.1 pg (26-34); Mean Corpuscular Volume 84.4 fl (80-100); Mean Platelet Volume 11.1 fl (7.4-10.4); Platelet Count Result 246 k/mm3 (150-375); Red Blood Count 3.98 M/mm3 (4.6-6.20); Red Cell Distribution Width 12.7 % (11.5-14.5); White Blood Count 15.3 K/mm3 (4.5-10.0)
[2024-12-26 06:56] LABS: Alanine Aminotransferase 13 U/L (6-50); Albumin Level 4.3 g/dL (3.5-5.1); Alkaline Phosphatase 65 U/L (38-126); Anion Gap 11 mmol/L (4-12); Aspartate Amino Transferase 23 U/L (17-59); Bilirubin,Total 0.5 mg/dL (0.2-1.3); Calcium 8.9 mg/dL (8.4-10.2); Carbon Dioxide 24 mmol/L (22-30); Chloride 84 mmol/L (98-107); Estimated Glomerular Filt Rate > 60; Glucose 118 mg/dL (65-110); Sodium 119 mmol/L (137-145)
--- NOTE | 2024-12-26 07:02 | ED_ITS ---
HPI - Recheck/Abnormal Lab/Rx General Chief Complaint: Recheck/Abnormal Lab/Rx Stated Complaint: low sodium Time Seen by Provider: 12/26/24 07:01 Source: patient Mode of arrival: ambulatory Limitations: other (blind/partial blindness) History of Present Illness HPI narrative: Patient presents with concern for hyponatremia. He states he has been feeling lightheaded and feels like he might pass out. He was seen for the same on and prescribed sodium chloride tablets. He states he has been taking them and ran out yesterday. He has not slept in 2 days. Patient states he has had hiccups for the past 4 years but denies being on Thorazine. His hiccups are causing him to have chest pain. Denies any abdominal pain. 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 Denies any seizures. He does not know what medications he takes but he does not think he is on any thiazide medications. He states he has been drinking Gatorade in orange juice and only a little water. Has not appreciated any edema. Related Data Home Medications ?Medication ?Instructions ?Recorded ?Confirmed ?Last Taken ?Type losartan 50 mg tablet 50 mg PO DAILY 03/02/21 12/26/24 12/25/24 08:00 History 50 mg montelukast 10 mg tablet 10 mg PO DAILY 03/02/21 12/26/24 12/25/24 08:00 History 10 mg pravastatin 80 mg tablet 80 mg PO DAILY 03/02/21 12/26/24 12/25/24 08:00 History cholecalciferol (vitamin D3) 25 25 mcg PO DAILY 03/29/21 12/26/24 12/25/24 08:00 History mcg (1,000 unit) capsule (Vitamin 25 mcg D3) cyanocobalamin (vitamin B-12) 100 2,000 mcg PO DAILY 03/29/21 12/26/24 12/25/24 08:00 History mcg tablet 2,000 mcg dorzolamide 22.3 mg-timolol 6.8 1 drp LEFT EYE TID 06/29/24 12/26/24 12/26/24 08:00 History mg/mL eye drops 1 drp budesonide-formoterol HFA 80 2 puff inhalation Q12H 12/26/24 12/26/24 12/26/24 08:00 History mcg-4.5 mcg/actuation aerosol 2 puff inhaler gabapentin 300 mg capsule 300 mg PO DAILY 12/26/24 12/26/24 12/25/24 08:00 History 300 mg prednisolone acetate 1 % eye 1 drp LEFT EYE TID 12/26/24 12/26/24 12/26/24 08:00 History drops,suspension 1 drp sodium chloride 1,000 mg soluble 1,000 mg PO TID 12/26/24 12/26/24 12/25/24 20:00 History tablet 1,000 mg Allergies Allergy/AdvReac Type Severity Reaction Status Date / Time No Known Allergies Allergy Verified 12/21/24 14:54 [facility] Past Medical History Medical History Adenomatous colon polyp Erosive esophagitis Anemia of chronic disease Chronic hiccups Hyponatremia Tobacco abuse Normocytic anemia Glaucoma Legally blind. Chronic obstructive pulmonary disease Hyperlipidemia Hypertension Surgical History Surgical History History of enucleation of eye Right, secondary to recurrent infection. Family History Family History Grandparent Acute myocardial infarction Mother Acute myocardial infarction Skin cancer Father Acute myocardial infarction Sibling Cancer Social History Social History Social History: Surrogate decision maker: Svitlana Hines, . Code status: Full code. Smoking packs per day: 1 Smoking cigarettes per day: 20.0 Years smoked: 30 Smoking pack-years: 30.00 Smoking status: Former smoker Tobacco type: cigarettes Smoking end date: 11/03/20 Alcohol intake: current Drinks per week: 3 Substance use: never Substance use type: does not use Do You Feel Safe in your Home?: Yes Lack of Transportation: No Lack of Food: Never True Current Housing: I Have Housing Concerned About Future Housing: No Difficulty Paying Gas/Electric Bills: No Difficulty Paying for Meds: No Currently Unemployed: No Education: High School Diploma/GED Difficulty w/ Childcare or Family Care: No Living arrangements: with family Additional living arrangements comments: The patient lives with his in [place]. 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 Spiritual care concerns: No Exam 2 Narrative: GENERAL: Well-nourished, and in no acute distress. Hiccuping throughout exam HEAD: Normocephalic, atraumatic. EYES: Enucleation of the right eye. Left eye cloudy. ENT: Nares clear, no rhinorrhea or epistaxis. Tacky mucous membranes NECK: Supple. CHEST: Speaking in full sentences. No respiratory distress. HEART: Regular rate and rhythm. . ABDOMEN: Soft, nondistended. EXTREMITIES: Normal range of motion. No bilateral lower extremity edema. SKIN: Warm, dry, no rash. NEURO: No focal deficits. Alert and oriented x3. PSYCH: Normal mood and affect. Course Vital Signs Vital signs: Vital Signs Pulse Rate 71 12/26/24 06:31 Respiratory Rate 22 H 12/26/24 06:31 Blood Pressure 158/74 H 12/26/24 06:31 Pulse Oximetry 97 12/26/24 06:31 Temperature 98.5 F 12/27/24 03:55 Pulse Rate 67 12/27/24 08:17 Respiratory Rate 20 12/27/24 08:17 Blood Pressure 147/61 H 12/27/24 03:55 Pulse Oximetry 95 12/27/24 08:16 Oxygen Delivery Room Air 12/27/24 08:16 MDM - Recheck/Abnormal Lab/Rx MDM Narrative Medical decision making narrative: In the emergency department he is afebrile with vital signs notable for hypertension and mild tachypnea. Patient has hyponatremia with sodium level of 119. Patient has a history of chronic hyponatremia ranging from 122-136 over the past 6 months. When seen earlier for this issue in the week, he was 122. Differential Diagnosis of Hypotonic Hyponatremia (by Volume Status) Hypovolemic: Renal Causes - Thiazide diuretic use, Na-wasting nephropathy (RTA, CKD), Osmotic diuresis (glucose, urea), Aldosterone deficiency Extra-renal Causes - GI loss, 3rd space loss, Sam, Pancreatitis, Peritonitis Hypervolemic: Urinary Na >20 - Renal failure Urinary Na <20 - Nephrotic syndrome, Cirrhosis, CHF Euvolemic: SIADH (urine sodium is greater than 20-40 mEq/L), Pain/stress/nausea, Psychogenic polydipsia; Hypothyroidism; Drugs such as NSAIDs, sulfonylurea, bupropion; H20 intoxication; Glucocorticoid deficiency Pseudohyponatremia: Hyperglycemia; Displaced sodium in lab specimen; Hyperlipidemia; Hyperproteinemia Of note, Patient states he has had hiccups for the past 4 years but denies being on Thorazine that he knows of which otherwise could have been a contributor to his hyponatremia.. Urinalysis unremarkable. Urine electrolytes and creatinine ordered. He has leukocytosis and normocytic anemia. The anemia stable from previous but the leukocytosis of greater than 15 is new compared to his WBC of 9 earlier in the week. Will order CT chest abd pelvis. Informed by lab the urine is too dilute to run all of the urine labs. It is possible patient might be drinking more water than initially conveys given the degree of dilution. BNP is borderline elevated for the reference range of the assay for patient's age. Chest x-ray concerning for pneumonia. Ceftriaxone and azithromycin ordered. Patient discussed with on-call hospitalist. Will admit. RUQ US ordered due to findings on CT. Lab Data Attestation: I reviewed the patient's lab results. Lab results narrative: Normal renal function 12/27/24 05:13 12/27/24 05:13 Labs: Lab Results 12/26/24 12/26/24 12/26/24 Range/Units 06:38 06:38 06:38 WBC 15.3 H (4.5-10.0) K/mm3 RBC 3.98 L (4.6-6.20) M/mm3 Hgb 11.6 L (14.0-18.0) g/dL Hct 33.6 L (42.0-52.0) % MCV 84.4 (80-100) fl MCH 29.1 (26-34) pg MCHC 34.5 (32-36) g/dl RDW 12.7 (11.5-14.5) % Plt Count 246 (150-375) k/mm3 MPV 11.1 H (7.4-10.4) fl Immature Gran % (Auto) Not Reportable Neut % (Auto) Not Reportable Lymph % (Auto) Not Reportable [place] % (Auto) Not Reportable Eos % (Auto) Not Reportable Baso % (Auto) Not Reportable Lymph # (Auto) Not Reportable [place] # (Auto) Not Reportable Eos # (Auto) Not Reportable Baso # (Auto) Not Reportable Abs Immat Gran (auto) Not Reportable Absolute Neuts (auto) Not Reportable Absolute Nucleated RBC Not Reportable Neutrophils % (Manual) 77 H (46-73) % Band Neutrophils % Not Reportable Lymphocytes % (Manual) 8 L (18-44) % Monocytes % (Manual) 14 H (3-9) % Basophils % (Manual) 1 (0-1) % Nucleated RBC % Not Reportable Abs Lymphs (Manual) 1.22 (1.1-4.5) K/mm3 Abs Monocytes (Manual) 2.14 H (0.1-0.90) K/mm3 Abs Basophils (Manual) 0.15 H (0.0-0.1) K/mm3 Platelet Estimate Adequate (Adequate) Schistocytes None seen PT 13.4 (11.1-14.7) Seconds INR 1.0 APTT 31.6 (22.3-36.8) Seconds Sodium 119 L* (137-145) mmol/L Potassium 4.0 (3.4-5.0) mmol/L Chloride 84 L (98-107) mmol/L Carbon Dioxide 24 (22-30) mmol/L Anion Gap 11 (4-12) mmol/L BUN < 2 L (9-20) mg/dL Creatinine 0.60 L (0.7-1.3) mg/dL Estim Creat Clear Calc Not Reportable Estimated GFR > 60 (59 - ) Glucose 118 H (65-110) mg/dL Serum Osmolality Uric Acid 2.7 L (3.5-8.5) mg/dL Calcium 8.9 (8.4-10.2) mg/dL Phosphorus Cancelled 3.0 Magnesium Cancelled 1.6 Total Bilirubin 0.5 (0.2-1.3) mg/dL AST 23 (17-59) U/L ALT 13 (6-50) U/L Alkaline Phosphatase 65 (38-126) U/L Troponin I < 0.012 (0.000-0.034) ng/mL NT-Pro-B Natriuret Pep 861 H (19.9-100) pg/mL Total Protein 7.0 (6.3-8.2) g/dL Albumin 4.3 (3.5-5.1) g/dL Saxqf-5-Faulxdehj Fhfts-6-Hndpyeime Aiuk-3-Hmpgwbyi Nysm-5-Kbntkrcm Gamma Globulins Abnorm Protein Band 1 PEP Interpretation Triglycerides 44 (<150) mg/dL Cholesterol 132 (0-200) mg/dL LDL Cholesterol Direct 47 mg/dL HDL Direct 60 mg/dL Lipase 87 (23-300) U/L TSH (Reflex) 2.160 (0.465-4.68) uIU/mL Random Cortisol 24.00 ug/dL Urine Color Yellow (Yellow) Urine Appearance Clear (Clear) Urine pH 6.5 (5.0-9.0) Ur Specific [place] 1.002 (1.001-1.035) Urine Protein Negative (Negative) mg/dL Urine Glucose (UA) Negative (Negative) mg/dL Urine Ketones Negative (Negative) mg/dL Ur Blood (Man) Negative (Negative) Urine Nitrate Negative (Negative) Urine Bilirubin Negative (Negative) Urine Urobilinogen 0.2 (<2.0) mg/dL Leukocyte Esterase Rfl Negative (Negative) BENTLEY/UL Urine Osmolality U Random Total Protein mg/dL Ur Random Sodium Ur Random Urea MG/DL Urine Total Volume mL Urine Creatinine mg/dL Protein/Creat Ratio 2 (0-0.20) mg/mg [place]/Lambda Ratio Free [place] Light Chains Free Lambda Light Chain Influenza A (RT-PCR) (Negative) Influenza B (RT-PCR) (Negative) Ur L.pneumophila Ag RSV (RT-PCR) (Negative) SARS-CoV-2 RNA (RT-PCR) (Negative) Urine Pneumococcal Ag 12/26/24 12/26/24 12/26/24 Range/Units 07:14 07:39 08:08 WBC (4.5-10.0) K/mm3 RBC (4.6-6.20) M/mm3 Hgb (14.0-18.0) g/dL Hct (42.0-52.0) % MCV (80-100) fl MCH (26-34) pg MCHC (32-36) g/dl RDW (11.5-14.5) % Plt Count (150-375) k/mm3 MPV (7.4-10.4) fl Immature Gran % (Auto) Neut % (Auto) Lymph % (Auto) [place] % (Auto) Eos % (Auto) Baso % (Auto) Lymph # (Auto) [place] # (Auto) Eos # (Auto) Baso # (Auto) Abs Immat Gran (auto) Absolute Neuts (auto) Absolute Nucleated RBC Neutrophils % (Manual) (46-73) % Band Neutrophils % Lymphocytes % (Manual) (18-44) % Monocytes % (Manual) (3-9) % Basophils % (Manual) (0-1) % Nucleated RBC % Abs Lymphs (Manual) (1.1-4.5) K/mm3 Abs Monocytes (Manual) (0.1-0.90) K/mm3 Abs Basophils (Manual) (0.0-0.1) K/mm3 Platelet Estimate (Adequate) Schistocytes PT (11.1-14.7) Seconds INR APTT (22.3-36.8) Seconds Sodium (137-145) mmol/L Potassium (3.4-5.0) mmol/L Chloride (98-107) mmol/L Carbon Dioxide (22-30) mmol/L Anion Gap (4-12) mmol/L BUN (9-20) mg/dL Creatinine (0.7-1.3) mg/dL Estim Creat Clear Calc Estimated GFR (59 - ) Glucose (65-110) mg/dL Serum Osmolality Uric Acid (3.5-8.5) mg/dL Calcium (8.4-10.2) mg/dL Phosphorus Magnesium Total Bilirubin (0.2-1.3) mg/dL AST (17-59) U/L ALT (6-50) U/L Alkaline Phosphatase (38-126) U/L Troponin I (0.000-0.034) ng/mL NT-Pro-B Natriuret Pep (19.9-100) pg/mL Total Protein (6.3-8.2) g/dL Albumin (3.5-5.1) g/dL Jwody-7-Wpscmamly Maiou-7-Ecohrgvzj Lveu-1-Wlwxsltn Cveb-1-Swtloeuh Gamma Globulins Abnorm Protein Band 1 PEP Interpretation Triglycerides (<150) mg/dL Cholesterol (0-200) mg/dL LDL Cholesterol Direct mg/dL HDL Direct mg/dL Lipase (23-300) U/L TSH (Reflex) (0.465-4.68) uIU/mL Random Cortisol ug/dL Urine Color (Yellow) Urine Appearance (Clear) Urine pH (5.0-9.0) Ur Specific [place] (1.001-1.035) Urine Protein (Negative) mg/dL Urine Glucose (UA) (Negative) mg/dL Urine Ketones (Negative) mg/dL Ur Blood (Man) (Negative) Urine Nitrate (Negative) Urine Bilirubin (Negative) Urine Urobilinogen (<2.0) mg/dL Leukocyte Esterase Rfl (Negative) BENTLEY/UL Urine Osmolality Pending U Random Total Protein mg/dL Ur Random Sodium TNP Ur Random Urea MG/DL Urine Total Volume mL Urine Creatinine < 3.2 mg/dL Protein/Creat Ratio 2 (0-0.20) mg/mg [place]/Lambda Ratio Free [place] Light Chains Free Lambda Light Chain Influenza A (RT-PCR) Negative (Negative) Influenza B (RT-PCR) Negative (Negative) Ur L.pneumophila Ag RSV (RT-PCR) Negative (Negative) SARS-CoV-2 RNA (RT-PCR) Negative (Negative) Urine Pneumococcal Ag 12/26/24 12/26/24 12/26/24 Range/Units 10:01 10:15 10:15 WBC (4.5-10.0) K/mm3 RBC (4.6-6.20) M/mm3 Hgb (14.0-18.0) g/dL Hct (42.0-52.0) % MCV (80-100) fl MCH (26-34) pg MCHC (32-36) g/dl RDW (11.5-14.5) % Plt Count (150-375) k/mm3 MPV (7.4-10.4) fl Immature Gran % (Auto) Neut % (Auto) Lymph % (Auto) [place] % (Auto) Eos % (Auto) Baso % (Auto) Lymph # (Auto) [place] # (Auto) Eos # (Auto) Baso # (Auto) Abs Immat Gran (auto) Absolute Neuts (auto) Absolute Nucleated RBC Neutrophils % (Manual) (46-73) % Band Neutrophils % Lymphocytes % (Manual) (18-44) % Monocytes % (Manual) (3-9) % Basophils % (Manual) (0-1) % Nucleated RBC % Abs Lymphs (Manual) (1.1-4.5) K/mm3 Abs Monocytes (Manual) (0.1-0.90) K/mm3 Abs Basophils (Manual) (0.0-0.1) K/mm3 Platelet Estimate (Adequate) Schistocytes PT (11.1-14.7) Seconds INR APTT (22.3-36.8) Seconds Sodium 127 L (137-145) mmol/L Potassium (3.4-5.0) mmol/L Chloride (98-107) mmol/L Carbon Dioxide (22-30) mmol/L Anion Gap (4-12) mmol/L BUN (9-20) mg/dL Creatinine (0.7-1.3) mg/dL Estim Creat Clear Calc Estimated GFR (59 - ) Glucose (65-110) mg/dL Serum Osmolality Pending Uric Acid (3.5-8.5) mg/dL Calcium (8.4-10.2) mg/dL Phosphorus Magnesium Total Bilirubin (0.2-1.3) mg/dL AST (17-59) U/L ALT (6-50) U/L Alkaline Phosphatase (38-126) U/L Troponin I (0.000-0.034) ng/mL NT-Pro-B Natriuret Pep (19.9-100) pg/mL Total Protein 6.7 (6.3-8.2) g/dL Albumin Pending (3.5-5.1) g/dL Exgty-4-Ylpsmhlps Pending Jrhoe-9-Fbdwvwacj Pending Yqgq-2-Fbltqdyq Pending Mpqf-2-Ysbhcdln Pending Gamma Globulins Pending Abnorm Protein Band 1 Pending PEP Interpretation Pending Triglycerides (<150) mg/dL Cholesterol (0-200) mg/dL LDL Cholesterol Direct mg/dL HDL Direct mg/dL Lipase (23-300) U/L TSH (Reflex) (0.465-4.68) uIU/mL Random Cortisol ug/dL Urine Color (Yellow) Urine Appearance (Clear) Urine pH (5.0-9.0) Ur Specific [place] (1.001-1.035) Urine Protein (Negative) mg/dL Urine Glucose (UA) (Negative) mg/dL Urine Ketones (Negative) mg/dL Ur Blood (Man) (Negative) Urine Nitrate (Negative) Urine Bilirubin (Negative) Urine Urobilinogen (<2.0) mg/dL Leukocyte Esterase Rfl (Negative) BENTLEY/UL Urine Osmolality U Random Total Protein 15 15 mg/dL Ur Random Sodium Ur Random Urea < 67 MG/DL Urine Total Volume 180 mL Urine Creatinine 6.4 mg/dL Protein/Creat Ratio 2 2.34 H (0-0.20) mg/mg [place]/Lambda Ratio Pending Free [place] Light Chains Pending Free Lambda Light Chain Pending Influenza A (RT-PCR) (Negative) Influenza B (RT-PCR) (Negative) Ur L.pneumophila Ag Pending RSV (RT-PCR) (Negative) SARS-CoV-2 RNA (RT-PCR) (Negative) Urine Pneumococcal Ag Pending Imaging Data Radiologist's impression: Impressions Chest X-Ray 12/26/24 08:04 IMPRESSION: 1. Opacity left lower lung zone suspicious for pneumonia. Chest/Abdomen/Pelvis CT 12/26/24 08:05 IMPRESSION: 1. New mild patchy airspace opacity left lower lobe and lingula suspicious for pneumonia. 2. Small sliding-type hiatal hernia with fluid and mild wall thickening in the distal esophagus suggestive of mild reflux esophagitis. 3. 1.2 cm soft tissue density at the fundus of the gallbladder which could represent a gallbladder polyp, malignancy, sludge or gallstone. Would recommend right upper quadrant ultrasound for further evaluation. 4. 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 ECG Data EKG #1: Attestation: I personally reviewed and interpreted this ECG as follows: ECG completion date: 12/26/24 ECG completion time: 06:32 Interpretation: Normal sinus rhythm at a rate of 70 beats per minute. DE interval 146. QRS 93. QT/QTC 382/414. Bili progression across the precordial leads. No T-wave inversions. Questionable U waves in II, V3. Discharge Plan Discharge Clinical Impression: Hyponatremia, Chest pain, Chronic hiccups, Left lower lobe pneumonia, Hiatal hernia, Esophagitis, Other osteonecrosis, left femur, Other osteonecrosis, right femur Patient Disposition: Still a Patient Condition: Stable
[2024-12-26 07:03] LABS: Blood Urea Nitrogen < 2 mg/dL (9-20)
[2024-12-26 07:05] LABS: Add Urine Microscopic? NO; Appearance Urine Clear (Clear); Bilirubin Urine Negative (Negative); Blood Urine Negative (Negative); Color Urine Yellow (Yellow); Glucose Urine UA Negative (Negative); Ketones Urine Negative (Negative); Leukocyte Esterase Ur Negative LEU/UL (Negative); Nitrate Urine Negative (Negative); Protein Urine Negative (Negative); Specific Grav Ur 1.002 (1.001-1.035); Urobilinogen Urine 0.2 mg/dL (<2.0); pH Urine 6.5 (5.0-9.0)
[2024-12-26 07:09] LABS: Prothrombin Time 13.4 Seconds (11.1-14.7)
[2024-12-26 07:10] LABS: Partial Thromboplastin Time 31.6 Seconds (22.3-36.8)
--- OUTSIDE RECORDS SUMMARY | 2024-12-26 07:32 | XMS_ITS | Clinical Summary ---
Author Organization [facility] [address] [facility] Address [address] [place] [address] Care Team Providers Care Car Restorer Name Role Phone Nuris Berger Primary Care Provider [phone] Jonatan Stokes MD Unavailable [phone] Irma Bajwa MD Unavailable Allergies Active Allergy Reactions Criticality Noted Date [...] 11/19/2024 Assessment & Plan (11/19/2024 11:45 PM POULTRY FARM SUPERVISOR): Encouraged healthy lifestyle, good nutrition and exercise. Encouraged Calcium and Vitamin D and weight bearing exercise for bone health. Reviewed immunizations Reviewed age appropirate screenings. BMI 23.0-23.9, adult 06/20/2024 Assessment & Plan (10/30/2024 8:57 AM POULTRY FARM SUPERVISOR): Weight/BMI is in healthy range. Continue healthy lifestyle to maintain. Assessment & Plan (06/20/2024 7:44 AM CDT): Weight/BMI is in healthy range. Continue healthy lifestyle to maintain. Vitamin D deficiency 11/24/2023 Assessment & Plan (11/19/2024 11:45 PM POULTRY FARM SUPERVISOR): Supplement Assessment & Plan (05/20/2024 7:36 PM CDT): Supplement Fatigue 12/12/2022 Assessment & Plan (05/20/2024 7:37 PM CDT): Probably multifactorial. Check labs and followup to re-evaluate Assessment & Plan (11/24/2023 10:35 AM POULTRY FARM SUPERVISOR): Probably multifactorial. Check labs and followup [...] 01/16/2022 Assessment & Plan (11/19/2024 11:44 PM POULTRY FARM SUPERVISOR): Chronic hiccups for 5+ years Has [...] to the ER. ER recommended referral to [facility] but patient states he can't go to [...] weeks Assessment & Plan (11/24/2023 10:34 AM POULTRY FARM SUPERVISOR): Patient has persistent chronic hiccups that [...] monitor Assessment & Plan (08/15/2023 5:01 PM POULTRY FARM SUPERVISOR): Chronic hiccups for years. Has tried multiple interventions along with multiple workups from specialists including Neurology pulmonology and GI. Continue current regimen. Stressed importance of limiting water intake when he has the hiccups spells as this has been leading to hyponatremia requiring hospitalization. Assessment & Plan (08/11/2023 8:45 AM POULTRY FARM SUPERVISOR): Patient with chronic hiccups. Have had [...] levels. Assessment & Plan (08/15/2022 6:45 PM POULTRY FARM SUPERVISOR): Patient has consulted with most multiple [...] hiccups. Assessment & Plan (08/15/2023 5:02 PM POULTRY FARM SUPERVISOR): Chronic hiccups for years. Has tried multiple interventions along with multiple workups from specialists including Neurology pulmonology and GI. Continue current regimen. Stressed importance of limiting water intake when he has the hiccups spells as this has been leading to hyponatremia requiring hospitalization. Assessment & Plan (08/11/2023 8:46 AM POULTRY FARM SUPERVISOR): Hyponatremia secondary to water intake with [...] 07/14/2019 Assessment & Plan (11/19/2024 11:44 PM POULTRY FARM SUPERVISOR): Continue PPI p.r.n. Assessment & Plan (05/20/2024 7:35 PM CDT): Continue pantoprazole p.r.n. Assessment & Plan (11/24/2023 10:33 AM POULTRY FARM SUPERVISOR): Continue pantoprazole p.r.n. Assessment & Plan (04/08/2023 8:48 PM CDT): Continue PPI p.r.n. Assessment & Plan (12/12/2022 9:43 PM CDT): Insert PPI Assessment & Plan (08/15/2022 6:45 PM POULTRY FARM SUPERVISOR): Continue PPI prn Assessment & Plan (02/09/2021 8:17 PM CDT): Continue PPI Assessment & Plan (07/29/2020 7:33 AM POULTRY FARM SUPERVISOR): Continue PPI Assessment & Plan (03/27/2020 8:01 AM CDT): Dr. Stokes changed him from omeprazole to Pantoprazole for the hiccups. Pt hasn't noted any difference in GERD sxs (still well controlled) or hiccups. Assessment & Plan (09/26/2019 7:38 AM POULTRY FARM SUPERVISOR): Continue PPI Assessment & Plan (07/14/2019 [...] LDCT Assessment & Plan (11/19/2024 11:44 PM POULTRY FARM SUPERVISOR): Patient with allergies and COPD. Continue Singulair albuterol and Symbicort. Follows with Dr. Valdes. Assessment & Plan (05/20/2024 7:35 PM CDT): Continue per Dr. Valdes. Continue with his Symbicort and albuterol inhalers. Low-dose CT will be scheduled for June 16, 2024. Assessment & Plan (11/24/2023 10:33 AM POULTRY FARM SUPERVISOR): COPD. Continue per Dr. Hammond his alteration tailor Continue Symbicort Singulair and albuterol p.r.n. Assessment & Plan (04/08/2023 8:48 PM CDT): Encouraged smoking cessation. Continue per Dr. Hammond pulmonology. He is on albuterol Symbicort and Singulair Assessment & Plan (12/12/2022 9:43 PM CDT): Stop smoking. Continue per Pulmonary. Continue Symbicort Singulair and albuterol. Continue monitoring low-dose CTs as instructed Assessment & Plan (08/15/2022 6:44 PM POULTRY FARM SUPERVISOR): Stop smoking. Continue current plan per Pulmonary Assessment & Plan (08/01/2021 9:34 PM POULTRY FARM SUPERVISOR): Continue per Pulmonary Dr. Valdes Assessment & Plan (02/09/2021 8:15 PM CDT): Stop smoking. Continue per Dr. Valdes Assessment & Plan (07/29/2020 7:32 AM POULTRY FARM SUPERVISOR): Continue per Pulm Assessment & Plan (03/27/2020 8:00 AM CDT): Stop smoking. He declines starting inhalers or referral to Pulmonary Assessment & Plan (09/26/2019 10:27 PM POULTRY FARM SUPERVISOR): This is a significant, separately identifiable [...] order Assessment & Plan (07/29/2020 7:33 AM POULTRY FARM SUPERVISOR): Needs to repeat ---Dr. Valdes has already ordered Assessment & Plan (03/27/2020 8:00 AM CDT): 06/2019 LDCT Several 2-3mm nodules, probable benign LungRADs 2 --- repeat 06/2020 Assessment & Plan (09/26/2019 10:26 PM POULTRY FARM SUPERVISOR): 06/2019 LDCT Several 2-3mm nodules, probable benign LungRADs 2 --- repeat 06/2020 Hyperplastic rectal polyp 05/20/2019 Overview (05/20/2019): Colonoscopy 01/29/2012 at [facility]--->2021 Assessment & Plan (05/28/2019 7:33 PM CDT): Recvd colonoscopy and due to repeat in 2021 Hiatal hernia 05/20/2019 Mixed hyperlipidemia 05/20/2019 Assessment & Plan (11/19/2024 11:45 PM POULTRY FARM SUPERVISOR): Encouraged patient to follow low fat/low [...] 80 Assessment & Plan (11/24/2023 10:34 AM POULTRY FARM SUPERVISOR): Encouraged patient to follow low fat/low chol diet like the Mediterranean diet. Increase good fats in the diet. Increase exercise. Monitor labs as needed. Continue pravastatin 80 Assessment & Plan (08/15/2023 5:03 PM POULTRY FARM SUPERVISOR): Encouraged patient to follow low fat/low [...] Zetia Assessment & Plan (08/01/2021 9:33 PM POULTRY FARM SUPERVISOR): Encouraged patient to follow fat/low chol [...] statin Assessment & Plan (07/29/2020 7:34 AM POULTRY FARM SUPERVISOR): Encouraged patient to follow fat/low chol diet like the Mediterranean diet. Increase good fats in the diet. Increase exercise. Monitor labs as needed. Assessment & Plan (03/27/2020 8:02 AM CDT): Encouraged patient to continue low fat/low chol diet. Continue exercise. Increase good fats in the diet. Monitor labs as needed. Stable with zetia and pravastatin Assessment & Plan (09/26/2019 7:39 AM POULTRY FARM SUPERVISOR): Encouraged patient to continue low fat/low [...] change Assessment & Plan (08/15/2023 5:03 PM POULTRY FARM SUPERVISOR): Patient is legally blind. Continue with Ophthalmology Assessment & Plan (04/08/2023 8:47 PM CDT): No change Assessment & Plan (03/27/2020 8:02 AM CDT): No change Assessment & Plan (09/26/2019 7:39 AM POULTRY FARM SUPERVISOR): No change Assessment & Plan (05/28/2019 7:35 PM CDT): No change Cigarette smoker 05/20/2019 Assessment & Plan (08/11/2023 8:45 AM POULTRY FARM SUPERVISOR): Encouraged smoking cessation. Discussed 3 minutes. Reviewed options for assistance with cessation. Reviewed long-term sequela associated with smoking. Pt declines assistance at this time but may contact the office at anytime for further help as they desire. Assessment & Plan (04/08/2023 8:47 PM CDT): Encouraged smoking cessation. Discussed 3 minutes. Reviewed options for assistance with cessation. Reviewed long-term sequela associated with smoking. Pt declines assistance at this time but may contact the office at anytime for further help as they desire. Low-dose CT will be due in May. It is already scheduled Assessment & Plan (12/12/2022 9:42 PM CDT): Encouraged smoking cessation. Discussed 3 minutes. Reviewed options for assistance with cessation. Reviewed tank terminal gauger sequela associated with smoking. Pt declines assistance at this time but may contact the office at anytime for further help as they desire. Assessment & Plan (08/15/2022 6:44 PM POULTRY FARM SUPERVISOR): Encouraged smoking cessation. Discussed 3 minutes. Reviewed options for assistance with cessation. Reviewed long-term sequela associated with smoking. Pt declines assistance at this time but may contact the office at anytime for further help as they desire. Assessment & Plan (05/09/2022 8:19 PM CDT): Encouraged smoking cessation. Discussed 3 minutes. Reviewed options for assistance with cessation. Reviewed tank terminal gauger sequela associated with smoking. Pt declines assistance at this time but may contact the office at anytime for further help as they desire. Assessment & Plan (08/01/2021 9:33 PM POULTRY FARM SUPERVISOR): Encouraged smoking cessation. Discussed 3 minutes. Reviewed options for assistance with cessation. Reviewed tank terminal gauger sequela associated with smoking. Pt declines assistance at this time but may contact the office at anytime for further help as they desire. Assessment & Plan (05/17/2021 11:41 PM CDT): Encouraged smoking cessation. Discussed 3 minutes. Reviewed options for assistance with cessation. Reviewed tank terminal gauger sequela associated with smoking. Pt declines assistance at this time but may contact the office at anytime for further help as they desire. Assessment & Plan (03/12/2021 12:31 PM CDT): Encouraged smoking cessation. Discussed 3 minutes. Reviewed options for assistance with cessation. Reviewed tank terminal gauger sequela associated with smoking. He is slowing down. Offered assistance. May call if decides he wants help Assessment & Plan (07/29/2020 7:34 AM POULTRY FARM SUPERVISOR): Encouraged smoking cessation. Discussed 3 minutes. Reviewed options for assistance with cessation. Reviewed long-term sequela associated with smoking. Pt declines assistance at this time but may contact the office at anytime for further help as they desire. Assessment & Plan (03/27/2020 8:02 AM CDT): Encouraged smoking cessation. Discussed 3 minutes. Reviewed options for assistance with cessation. Reviewed tank terminal gauger sequela associated with smoking. Pt declines assistance at this time but may contact the office at anytime for further help as they desire. Assessment & Plan (09/26/2019 7:39 AM POULTRY FARM SUPERVISOR): Encouraged smoking cessation. Discussed 3 minutes. Reviewed options for assistance with cessation. Reviewed long-term sequela associated with smoking. Pt declines assistance at this time but may contact the office at anytime for further help as they desire. Assessment & Plan (07/14/2019 7:05 PM CDT): Encouraged smoking cessation. Discussed 3 minutes. Reviewed options for assistance with cessation. Reviewed long-term sequela associated with smoking. Pt declines assistance [...] 05/20/2019 Assessment & Plan (11/19/2024 11:45 PM POULTRY FARM SUPERVISOR): Pre-diabetes/hyperglycemia is a precursor to Dm. [...] diabetes. Assessment & Plan (11/24/2023 10:34 AM POULTRY FARM SUPERVISOR): Pre-diabetes/hyperglycemia is a precursor to Dm. Stressed importance of working on diet (decrease your simple sugars and one carbohydrate with each meal) and increase you exercise to achieve weight loss and this will help prevent you from progressing to diabetes. Assessment & Plan (08/15/2023 5:03 PM POULTRY FARM SUPERVISOR): Pre-diabetes/hyperglycemia is a precursor to Dm. [...] diabetes. Assessment & Plan (08/01/2021 9:33 PM POULTRY FARM SUPERVISOR): Pre-diabetes/hyperglycemia is a precursor to Dm. [...] diabetes. Assessment & Plan (07/29/2020 7:34 AM POULTRY FARM SUPERVISOR): Pre-diabetes is a precursor to Dm. [...] labs Assessment & Plan (09/26/2019 10:27 PM POULTRY FARM SUPERVISOR): This is a significant, separately identifiable [...] 11/24/2023 Assessment & Plan (11/24/2023 10:35 AM POULTRY FARM SUPERVISOR): Encouraged healthy lifestyle, good nutrition and exercise. Encouraged Calcium and Vitamin D and weight bearing exercise for bone health. Reviewed immunizations Reviewed age appropirate screenings. Need for influenza vaccination 08/15/2023 11/24/2023 Assessment & Plan (08/15/2023 5:04 PM POULTRY FARM SUPERVISOR): Flu vaccine updated in the office today BMI 22.0-22.9, adult 07/22/2023 Assessment & Plan (08/11/2023 8:12 AM POULTRY FARM SUPERVISOR): Weight/BMI is in healthy range. Continue [...] 04/03/2023 Assessment & Plan (08/15/2022 6:45 PM POULTRY FARM SUPERVISOR): Flu updated in the office today [...] test outpatient. Was referred to an outside supervisor laboratory animal facility. Encouraged to consider seeing a [facility] group of cardiologists so all of his providers are in the same system. He is in agreement. Referral made to Dr. Eduardo as he has multiple risk factors. BMI 23.0-23.9, adult 01/21/2022 Assessment & Plan (01/21/2022 11:10 AM CDT): Weight/BMI is in healthy range. Continue healthy lifestyle to maintain. BMI 21.0-21.9, adult 08/01/2021 Assessment & Plan (08/01/2021 7:28 AM POULTRY FARM SUPERVISOR): Weight/BMI is in healthy range. Continue healthy lifestyle to maintain. Medicare annual wellness visit, subsequent 08/01/2021 08/15/2022 Assessment & Plan (08/01/2021 9:34 PM POULTRY FARM SUPERVISOR): Encouraged healthy lifestyle, good nutrition and exercise. Encouraged Calcium and Vitamin D and weight bearing exercise for bone health. Reviewed immunizations. Reviewed age appropirate screenings. Medicare Wellness Documentation is completed within the chart Fatigue 05/17/2021 05/02/2022 Assessment & Plan (08/01/2021 9:34 PM POULTRY FARM SUPERVISOR): Probably multifactorial. Check labs and followup [...] 024 Assessment & Plan (11/24/2023 10:34 AM POULTRY FARM SUPERVISOR): Weight/BMI is in healthy range. Continue [...] 05/02/2022 Assessment & Plan (07/29/2020 7:34 AM POULTRY FARM SUPERVISOR): Probably multifactorial. Check labs and followup to re-evaluate Need for immunization against influenza 07/29/2020 11/24/2020 Assessment & Plan (07/29/2020 7:34 AM POULTRY FARM SUPERVISOR): Updated in office today BMI 22.0-22.9, adult 03/27/2020 024 Assessment & Plan (05/20/2024 7:37 PM CDT): Weight/BMI is in healthy range. Continue healthy lifestyle to maintain. Assessment & Plan (07/29/2020 7:34 AM POULTRY FARM SUPERVISOR): Weight/BMI is in healthy range. Continue [...] 020 Assessment & Plan (09/26/2019 7:39 AM POULTRY FARM SUPERVISOR): Weight/BMI is in healthy range. Continue healthy lifestyle to maintain. Annual physical exam 09/26/2019 020 Assessment & Plan (09/26/2019 7:40 AM POULTRY FARM SUPERVISOR): Encouraged healthy lifestyle, good nutrition and exercise. Encouraged Calcium and Vitamin D and weight bearing exercise for bone health. Reviewed immunizations Reviewed age appropirate screenings. Influenza vaccine refused 09/26/2019 Assessment & Plan (09/26/2019 7:40 AM POULTRY FARM SUPERVISOR): Encouraged vaccine. Reviewed risks/ benefits. Patient refuses and accepts risks. Esophagitis determined by endoscopy 05/20/2019 05/02/2022 Gastritis 05/20/2019 05/02/2022 Essential (primary) hypertension 05/20/2019 05/20/2024 Assessment & Plan (11/24/2023 10:34 AM POULTRY FARM SUPERVISOR): Bp is stable/in acceptable range for any co-morbidities. Encouraged to limit sodium intake and exercise for weight control. Continue losartan 50 Assessment & Plan (08/15/2023 5:04 PM POULTRY FARM SUPERVISOR): Bp is stable/in acceptable range for any co-morbidities. Encouraged to limit sodium intake and exercise for weight control. Continue per Dr. Curtis Assessment & Plan (08/11/2023 8:45 AM POULTRY FARM SUPERVISOR): Bp is stable/in acceptable range for [...] losartan Assessment & Plan (08/15/2022 6:44 PM POULTRY FARM SUPERVISOR): Bp is stable/in acceptable range for [...] 50 Assessment & Plan (08/01/2021 9:33 PM POULTRY FARM SUPERVISOR): Bp is stable/in acceptable range for [...] Losartan/HCTZ Assessment & Plan (07/29/2020 7:33 AM POULTRY FARM SUPERVISOR): Bp is stable/in acceptable range for any co-morbidities. Encouraged to limit sodium intake and exercise for weight control. Losartan and HCTZ Assessment & Plan (03/27/2020 8:00 AM CDT): Bp is stable/in acceptable range for any co-morbidities. Encouraged to limit sodium intake and exercise for weight control. Continue losartan/HCTZ Assessment & Plan (09/26/2019 7:38 AM POULTRY FARM SUPERVISOR): Bp is stable/in acceptable range for [...] 01/21/2022 Assessment & Plan (08/01/2021 9:34 PM POULTRY FARM SUPERVISOR): Persistent hiccups. Has consulted with multiple [...] omeprazole Assessment & Plan (07/29/2020 7:32 AM POULTRY FARM SUPERVISOR): Continue per ENT/Pulm. He is responding to BID omeprazole. Will monitor Assessment & Plan (03/27/2020 7:59 AM CDT): Dr. Stokes started him on Pantoprazole. He hasn't noted much difference. Needs to followup to complete workup. Encouraged patient to call and make appointment. Assessment & Plan (09/26/2019 10:26 PM POULTRY FARM SUPERVISOR): This is a significant, separately identifiable problem that was evaluated and managed on the same day as the wellness exam Less frequent than in the past. Continue the PPI and monitor Rx sent to pharmacy. Assessment & Plan (08/24/2019 9:04 AM POULTRY FARM SUPERVISOR): Improving with the PPI. Continue PPI [...] 2018 Assessment & Plan (08/24/2019 9:04 AM POULTRY FARM SUPERVISOR): Encouraged vaccine. Reviewed risks/ benefits. Patient refuses and accepts risks. Assessment & Plan (07/14/2019 7:05 PM CDT): Encouraged vaccine. Reviewed risks/ benefits. Patient refuses and accepts risks. Assessment & Plan (05/28/2019 7:34 PM CDT): Encouraged again Hypovolemia dehydration 03/0 02/2024 Leukocytosis 11/24/2023 Hypercholesteremia 3 Assessment & Plan (04/08/2023 8:47 PM CDT): Encouraged patient to follow low fat/low chol diet like the Mediterranean diet. Increase good fats in the diet. Increase exercise. Monitor labs as needed. Continue pravastatin and Zetia Gastroesophageal reflux dise ase without esophagitis 04/03/2023 Encounters Date Type Department Care Team Description 12/26/2024 Telephone [facility] [address] [place] [address] Nuris Berger PA 12/06/2024 9:30 AM CDT Office Visit [facility] [address] [place] [address] Tasia Hoffman MD Chronic obstructive pulmonary disease, unspecified COPD type (HCC) (Primary Dx); Mild persistent asthma without complication; Non-seasonal allergic rhinitis due to other allergic trigger; Nicotine dependence, cigarettes, in remission 10/30/2024 9:00 AM POULTRY FARM SUPERVISOR Office Visit [facility] [address] [place] [address] Nuris Berger PA Annual physical exam (Primary Dx); Vitamin D deficiency; Mixed hyperlipidemia; Pre-diabetes; Chronic obstructive pulmonary disease, unspecified COPD type (HCC); Gastroesophageal reflux disease with esophagitis without hemorrhage; Chronic hiccups; BMI 23.0-23.9, adult 10/03/2024 8:56 AM POULTRY FARM SUPERVISOR - 10/03/2024 11:59 PM POULTRY FARM SUPERVISOR Hospital Encounter [facility] [address] [place] [address] Pulmonary nodules Discharge Disposition: Discharge to home [...] Name Comments Blindness Father Heart attack Father DC Heart disease Father No Known Problems Mother Relation Name Status Comments Father Mother Social History Tobacco Use Types Packs/Day Years Used Date Smoking Tobacco: Former Cigarettes 0.8 40 0 09/1981 - 09/2021 Smokeless Tobacco: Never Tobacco Cessation:Counseling Given: Not Answered Alcohol Use Standard Drinks/Week Comments Yes 0 (1 standard drink = 0.6 oz pur e alcohol) social C Utilities Answer Date Recorded In the past 12 months has th e electric, gas, oil, or water company threatened to shut off services in your [...] often do you attend chur ch or restorationist services? Patient declined 12/03/2023 Do you belong [...] place to sleep or slept in a mcfp (including now)? No 12/03/2023 Personal Safety Answer Date Recorded Have you ever been in or are you currently in a harmful physical or emotional relationship or is someone making you feel afraid or unsafe? Denies 08/01/2024 Sex and Gender Information Value Date Recorded Sex Assigned at Not on file Legal Sex Male 12:22 AM POULTRY FARM SUPERVISOR Gender Identity Not on file Sexual [...] (1 of 2) 2011 Covid-19 Vaccine (3 2023-2 5 season) 2024 02/09/2021, 01/05/2021 Prostate [...] Diagnosis Comments TSH Routine 10/03/2024 10:42 AM POULTRY FARM SUPERVISOR Fatigue, unspecified type LIPID PANEL Routine 10/03/2024 10:42 AM POULTRY FARM SUPERVISOR Mixed hyperlipidemia HEMOGLOBIN A1C Routine 10/03/2024 10:42 AM POULTRY FARM SUPERVISOR Pre-diabetes COMPREHENSIVE METABOLIC PANEL Routine 10/03/2024 10:42 AM POULTRY FARM SUPERVISOR Hyponatremia CBC WITH AUTO DIFFERENTIAL Routine 10/03/2024 10:42 AM POULTRY FARM SUPERVISOR Fatigue, unspecified type CT CHEST WO CONTRAST F/U LUNG SCREEN PROTOCOL Schedule Routine, Read Routine (OP Routine) 10/03/2024 9:25 AM POULTRY FARM SUPERVISOR Pulmonary nodules PSA SCREEN Routine 12/16/2022 12:39 PM CDT Prostate cancer screening HEPATITIS PANEL, ACUTE Routine 05/03/2022 5:40 AM CDT HM COLONOSCOPY Routine 07/14/2021 from Last 3 Months or Most Recently Relevant to Health Maintenance Results * (ABNORMAL) CBC with auto differential (10/03/2024 10:42 AM POULTRY FARM SUPERVISOR) Pathologist [facility] WBC 7.4 3.8 - 10.8 [...] t [facility] Eosinophils 4.6 % [facility] Basophils 0.8 % [facility] Blood 10/03/2024 10:4 2 AM POULTRY FARM SUPERVISOR 10/03/2024 10:49 AM POULTRY FARM SUPERVISOR Narrative [facility] - 10/03/2024 11:53 PM POULTRY FARM SUPERVISOR FASTING:YES FASTING: YES Nuris ROBLES LAB BLOOD ORDERABLES Final Result Performing Organization Address [facility] Co de Phone Number [facility] [address] [place] [address] * TSH (10/03/2024 10:42 AM POULTRY FARM SUPERVISOR) Pathologist [facility] TSH 1.29 0.40 - 4.50 mIU/L Dmitri Gorss Blood 10/03/2024 10:4 2 AM POULTRY FARM SUPERVISOR 10/03/2024 10:49 AM POULTRY FARM SUPERVISOR Narrative [facility] - 10/03/2024 11:53 PM POULTRY FARM SUPERVISOR FASTING:YES FASTING: YES Nuris ROBLES LAB BLOOD ORDERABLES Final Result Performing Organization Address [facility] de Phone Number [facility] [address] [place] [address] * (ABNORMAL) Hemoglobin A1c (10/03/2024 10:42 AM POULTRY FARM SUPERVISOR) Hgb A1C 5.7(H) <5.7 % of total Hgb [facility]ri [facility] Comment: For someone without known diabetes, [...] for children. Blood 10/03/2024 10:4 2 AM POULTRY FARM SUPERVISOR 10/03/2024 10:49 AM POULTRY FARM SUPERVISOR Narrative [facility] - 10/03/2024 11:53 PM POULTRY FARM SUPERVISOR FASTING:YES FASTING: YES Nuris ROBLES LAB BLOOD ORDERABLES Final Result Performing Organization Address [facility] Co de Phone Number [facility] [address] [place] [address] * Lipid panel (10/03/2024 10:42 AM POULTRY FARM SUPERVISOR) [facility] Cholesterol 152 <200 mg/dL [facility] HDL 52 > OR = 40 mg/dL [facility] Triglycerides 72 <150 mg/dL [facility] LDL 84 mg/dL (calc) [facility] Comment: Reference range: <100 Desirable range <100 mg/dL for primary prevention; <70 mg/dL for patients with CHD or diabetic patients with > or = 2 CHD risk factors. LDL-C is now calculated using the Jacob calculation, which is a validated novel method providing better accuracy than the Friedewald equation in the estimation of LDL-C. Adal BERRIOS et al. NICOLE. 2013;310(19): 7547-7704 (http://education.HDB Newco/faq/DAL413) Chol/HDL ratio 2.9 <5.0 (calc) LetsmakeP[facility] Gross Non-HDL, (LDL+VLDL) 100 <130 mg/dL (calc) LetsmakeS mary Gross Comment: For patients with diabetes plus 1 major ASCVD risk factor, treating to a non-HDL-C goal of <100 mg/dL (LDL-C of <70 mg/dL) is considered a therapeutic option. 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 Sodium 140 135 - 146 mmol/L Dmitri SolorzanoPorsche Gross Potassium, pl 5.0 3.5 - 5.3 mmol/L Dmitri SolorzanoPorsche Gross Chloride 103 98 - 110 mmol/L Dmitri Solorzano-Porsche Gross CO2 30 20 - 32 mmol/L Dmitri Solorzano-Porsche Gross Calcium 9.8 8.6 - 10.3 mg/dL Dmitri Gross Protein, sr 6.6 6.1 - 8.1 g/dL Dmitri SolorzanoPorsche Gross Albumin 4.2 3.6 - 5.1 g/dL Dmitri SolorzanoPorsche Gross GLOBULIN 2.4 1.9 - 3.7 g/dL (calc) Dmitri Gross Alb/glob ratio 1.8 1.0 - 2.5 (calc) Dmitri Gross Bilirubin, total 0.4 0.2 - 1.2 mg/dL Dmitri SolorzanoPorsche Gross Alk phos 53 35 - 144 U/L Dmitri SolorzanoPorsche Gross AST 8(L) 10 - 35 U/L Dmitri SolorzanoAntuitPorsche Gross ALT (SGPT) 6(L) 9 - 46 U/L Dmitri SolorzanoPorsche Gross Blood 10/03/2024 10:4 2 AM POULTRY FARM SUPERVISOR 10/03/2024 10:49 AM POULTRY FARM SUPERVISOR Narrative QUEST - 10/03/2024 11:53 PM POULTRY FARM SUPERVISOR FASTING:YES FASTING: YES us Nuris ROBLES LAB BLOOD ORDERABLES Final Result DMITRI SolorzanoSt Gross [address] [place] [address] * CT Chest WO Contrast F/U Lung Screen Protocol (10/03/2024 9:25 AM POULTRY FARM SUPERVISOR) Anatomical Region Laterality Modality Chest N/A Computed Tomogra phy 10/03/2024 7:11 PM POULTRY FARM SUPERVISOR Narrative 10/03/2024 7:17 PM POULTRY FARM SUPERVISOR EXAM DESCRIPTION: CT CHEST WO CONTRAST [...] Estuardo Ortiz M.D. KT T: Report ID: [id number] Reading Location: [place] [address] us Tasia Hoffman MD [facility] [place] CT PROCEDURES Final Resul t * PSA [...] Nuris ROBLES LAB BLOOD ORDERABLES Final Result [facility] [address] [facility] [place] [address] * Hepatitis panel, acute (05/03/2022 5:40 AM CDT) Hep A IgM Nonreactive Nonreactive [facility] Comment: Interpretive Data: If Hep A IgM Ab is reported as Equivocal, a new sample should be drawn in two weeks for testing. Current interpretive data was last revised on 19. Hep B core IgM Nonreactive Nonreactive [facility] Comment: Interpretive Data If HepB Core IgM Ab is reported as Equivocal, a new sample should be drawn in two weeks for testing. Current interpretive data was last revised on 19. Hep C Ab Nonreactive Nonreactive [facility] Comment: Interpretive Data Nonreactive: Antibodies to [...] revised on 2019. HepBsAg Nonreactive Nonreactive [facility] Blood 05/03/2022 5:40 AM CDT 05/03/2022 6:36 AM CDT Pamela Gongora DO LAB MICROBIOLOGY - GENERAL OR DERABLES Final Result [facility] [address] [facility] Department of Laboratories [place], [place] [id number] * (ABNORMAL) HM COLONOSCOPY (07/14/2021) Jame Mg MD HEALTH MAINTENANCE Edited Result - Final from Last 3 Months or Most Recently Relevant to Health Maintenance Insurance T MEDICARE [facility] AET[employer] MEDICARE GOLD Advance Directives For more information, please contact: [phone] * Full Code (Latest Code Status on [...] 10:34 PM 11/16/2022 9:56 PM Care Teams Car Restorer Relationship Specialty Start Date End Date Nuris Berger PA [address] [place] [address] PCP - General Internal Medicine 12/28/18 Jonatan Stokes MD [address] [place] [address] Consulting Physician Otolaryngology 03/27/20 Irma Bajwa MD [address] [place] [address] Consulting Physician Neurology 05/07/22
--- OUTSIDE RECORDS SUMMARY | 2024-12-26 07:32 | XMS_ITS | Encounter Summary ---
Author Organization [facility] Healthcare Address [address] [place] [address] Care Team Providers Care Chief Guard Name Role Phone Nuris Berger Primary Care Provider [phone] Jonatan Stokes MD Unavailable [phone] Irma Bajwa MD Unavailable [phone] Encounter Details Date Type Department Care Team (Late st Contact Info) Description 12/26/2024 Telephone [facility] Family Medicine [address] [place] [address] Nuris Berger PA [address] [place] [address] Social History Tobacco Use Types Packs/Day Years Used Date Smoking Tobacco: Former Cigarettes 0.8 40 0 09/1981 - 09/2021 Smokeless Tobacco: Never Alcohol Use Standard Drinks/Week Comments Yes 0 (1 standard drink = 0.6 oz pur e alcohol) social C Utilities Answer Date Recorded In the past 12 months has [employer], gas, oil, or water company threatened [...] often do you attend chur ch or judaism services? Patient declined 12/03/2023 Do you belong [...] place to sleep or slept in a custodial (including now)? No 12/03/2023 Personal Safety Answer Date Recorded Have you ever been in or are you currently in a harmful physical or emotional relationship or is someone making you feel afraid or unsafe? 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 Gender Identity Not on file Sexual Orientation Not on file Occupation Industry Job Start Date Job End Date Disabled Not on file Not on file Not on file documented as of this encounter Miscellaneous Notes * Telephone Encounter - Janet Etienne - 12/26/2024 7:09 AM CDT Pt was seen at [facility] on 12/21/24 for: Hiccups and hyponatremia Discharged with order for metoclopramide PRN for nausea See Attached Notes Staff will f/u with pt documented in this encounter Plan of Treatment Not on file documented as of this encounter Visit Diagnoses Not on filedocumented in this encounter Care Teams Chief Guard Relationship Specialty Start Date End Date Nuris Berger PA [address] [facility] [place] [address] PCP - General Internal Medicine 12/28/18 Jonatan Stokes MD [address] [place] [address] Consulting Physician Otolaryngology 03/27/20 Irma Bajwa MD [address] [facility] [place] [address] Consulting Physician Neurology 05/07/22 documented as of this encounter
--- OUTSIDE RECORDS SUMMARY | 2024-12-26 07:32 | XMS_ITS | Encounter Summary ---
Author Organization [facility] Healthcare Address [address] [place] [address] Care Team Providers Care Director Revenue Name Role Phone Nuris Berger Primary Care Provider [phone] Jonatan Stokes MD Unavailable Irma Bajwa MD Unavailable [phone] Encounter Details Date Type Department Care Team (Late st Contact Info) Description 06/28/2024 Orders Only [facility] Health Information Management [address] [place] [address] Scanning, Provider Social History Tobacco Use Types Packs/Day Years Used Date Smoking Tobacco: Former Cigarettes 0.8 40 0 09/1981 - 09/2021 Smokeless Tobacco: Never Alcohol Use Standard Drinks/Week Comments Yes 0 (1 standard drink = 0.6 oz pur e alcohol) social [facility] Utilities Answer Date Recorded In the past 12 months has [employer], gas, oil, or water [employer] threatened to shut off services in your [...] week 12/03/2023 How often do you attend [facility] or bahai services? Patient declined 12/03/2023 Do you belong to any clubs o r organizations such as gnosticist groups, unions, fraternal or athletic groups, or [...] place to sleep or slept in a mcc (including now)? No 12/03/2023 Personal Safety Answer Date Recorded Have you ever been in or are you currently in a harmful physical or emotional relationship or is someone making you feel afraid or unsafe? 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
--- OUTSIDE RECORDS SUMMARY | 2024-12-26 07:33 | XMS_ITS | Referral Summary ---
Author Organization [facility] [address] [facility] Address [address] [place] [address] Care Team Providers Care [employer] Director Name Role Phone Nuris Berger Primary Care Provider [phone] Jonatan Stokes MD Unavailable [phone] Irma Bajwa MD Unavailable [phone] Encounters Date Type Department Care Team Description 12/26/[address] [place] [phone] Nuris Berger PA 12/06/2024 9:30 AM CDT Office Visit [facility] Pulmonology [address] [place] [phone] Tasia Hoffman MD Chronic obstructive pulmonary disease, unspecified COPD type (HCC) (Primary Dx); Mild persistent asthma without complication; Non-seasonal allergic rhinitis due to other allergic trigger; Nicotine dependence, cigarettes, in remission 10/30/2024 9:00 AM DRYING FRAME OPERATOR Office Visit [address] [place] [phone] Nuris Berger PA Annual physical exam (Primary Dx); Vitamin D deficiency; Mixed hyperlipidemia; Pre-diabetes; Chronic obstructive pulmonary disease, unspecified COPD type (HCC); Gastroesophageal reflux disease with esophagitis without hemorrhage; Chronic hiccups; BMI 23.0-23.9, adult 10/03/2024 8:56 AM DRYING FRAME OPERATOR - 10/03/2024 11:59 PM DRYING FRAME OPERATOR Hospital Encounter [facility] [address] [place] [address] Pulmonary nodules Discharge Disposition: Discharge to home [...] ronic obstructive pulmonary disease, unspecified COPD type ([facility]) INHALE 2 PUFFS BY MOUTH TWICE DAILY. [...] 11/19/2024 Assessment & Plan (11/19/2024 11:45 PM DRYING FRAME OPERATOR): Encouraged healthy lifestyle, good nutrition and exercise. Encouraged Calcium and Vitamin D and weight bearing exercise for bone health. Reviewed immunizations Reviewed age appropirate screenings. BMI 23.0-23.9, adult 06/20/2024 Assessment & Plan (10/30/2024 8:57 AM DRYING FRAME OPERATOR): Weight/BMI is in healthy range. Continue healthy lifestyle to maintain. Assessment & Plan (06/20/2024 7:44 AM CDT): Weight/BMI is in healthy range. Continue healthy lifestyle to maintain. Vitamin D deficiency 11/24/2023 Assessment & Plan (11/19/2024 11:45 PM DRYING FRAME OPERATOR): Supplement Assessment & Plan (05/20/2024 7:36 PM CDT): Supplement Fatigue 12/12/2022 Assessment & Plan (05/20/2024 7:37 PM CDT): Probably multifactorial. Check labs and followup to re-evaluate Assessment & Plan (11/24/2023 10:35 AM DRYING FRAME OPERATOR): Probably multifactorial. Check labs and followup to [...] 01/16/2022 Assessment & Plan (11/19/2024 11:44 PM DRYING FRAME OPERATOR): Chronic hiccups for 5+ years Has been [...] to the ER. ER recommended referral to [facility] but patient states he can't go to [...] weeks Assessment & Plan (11/24/2023 10:34 AM DRYING FRAME OPERATOR): Patient has persistent chronic hiccups that come [...] monitor Assessment & Plan (08/15/2023 5:01 PM DRYING FRAME OPERATOR): Chronic hiccups for years. Has tried multiple interventions along with multiple workups from specialists including Neurology pulmonology and GI. Continue current regimen. Stressed importance of limiting water intake when he has the hiccups spells as this has been leading to hyponatremia requiring hospitalization. Assessment & Plan (08/11/2023 8:45 AM DRYING FRAME OPERATOR): Patient with chronic hiccups. Have had difficulty [...] levels. Assessment & Plan (08/15/2022 6:45 PM DRYING FRAME OPERATOR): Patient has consulted with most multiple specialists [...] hiccups. Assessment & Plan (08/15/2023 5:02 PM DRYING FRAME OPERATOR): Chronic hiccups for years. Has tried multiple interventions along with multiple workups from specialists including Neurology pulmonology and GI. Continue current regimen. Stressed importance of limiting water intake when he has the hiccups spells as this has been leading to hyponatremia requiring hospitalization. Assessment & Plan (08/11/2023 8:46 AM DRYING FRAME OPERATOR): Hyponatremia secondary to water intake with chronic [...] 07/14/2019 Assessment & Plan (11/19/2024 11:44 PM DRYING FRAME OPERATOR): Continue PPI p.r.n. Assessment & Plan (05/20/2024 7:35 PM CDT): Continue pantoprazole p.r.n. Assessment & Plan (11/24/2023 10:33 AM DRYING FRAME OPERATOR): Continue pantoprazole p.r.n. Assessment & Plan (04/08/2023 8:48 PM CDT): Continue PPI p.r.n. Assessment & Plan (12/12/2022 9:43 PM CDT): Insert PPI Assessment & Plan (08/15/2022 6:45 PM DRYING FRAME OPERATOR): Continue PPI prn Assessment & Plan (02/09/2021 8:17 PM CDT): Continue PPI Assessment & Plan (07/29/2020 7:33 AM DRYING FRAME OPERATOR): Continue PPI Assessment & Plan (03/27/2020 8:01 AM CDT): Dr. Stokes changed him from omeprazole to Pantoprazole for the hiccups. Pt hasn't noted any difference in GERD sxs (still well controlled) or hiccups. Assessment & Plan (09/26/2019 7:38 AM DRYING FRAME OPERATOR): Continue PPI Assessment & Plan (07/14/2019 8:46 AM CDT): Discussed GERD at length including anatomy, behavioral changes (raise HOB, meal timings), dietary changes and medication options. Reviewed risks, benefits alternatives, side effects and proper use. Followup if sxs worsen or has hematochezia or hematemeis. Start PPI Chronic obstructive pulmonary disease 06/26/2019 Overview (06/26/2019): Noted on 06/2019 LDCT Assessment & Plan (11/19/2024 11:44 PM DRYING FRAME OPERATOR): Patient with allergies and COPD. Continue Singulair albuterol and Symbicort. Follows with Dr. Valdes. Assessment & Plan (05/20/2024 7:35 PM CDT): Continue per Dr. Valdes. Continue with his Symbicort and albuterol inhalers. Low-dose CT will be scheduled for June 16, 2024. Assessment & Plan (11/24/2023 10:33 AM DRYING FRAME OPERATOR): COPD. Continue per Dr. Hammond his court liaison Continue Symbicort Singulair and albuterol p.r.n. Assessment & Plan (04/08/2023 8:48 PM CDT): Encouraged smoking cessation. Continue per Dr. Hammond pulmonology. He is on albuterol Symbicort and Singulair Assessment & Plan (12/12/2022 9:43 PM CDT): Stop smoking. Continue per Pulmonary. Continue Symbicort Singulair and albuterol. Continue monitoring low-dose CTs as instructed Assessment & Plan (08/15/2022 6:44 PM DRYING FRAME OPERATOR): Stop smoking. Continue current plan per Pulmonary Assessment & Plan (08/01/2021 9:34 PM DRYING FRAME OPERATOR): Continue per Pulmonary Dr. Valdes Assessment & Plan (02/09/2021 8:15 PM CDT): Stop smoking. Continue per Dr. Valdes Assessment & Plan (07/29/2020 7:32 AM DRYING FRAME OPERATOR): Continue per Pulm Assessment & Plan (03/27/2020 8:00 AM CDT): Stop smoking. He declines starting inhalers or referral to Pulmonary Assessment & Plan (09/26/2019 10:27 PM DRYING FRAME OPERATOR): This is a significant, separately identifiable problem [...] order Assessment & Plan (07/29/2020 7:33 AM DRYING FRAME OPERATOR): Needs to repeat ---Dr. Valdes has already ordered Assessment & Plan (03/27/2020 8:00 AM CDT): 06/2019 LDCT Several 2-3mm nodules, probable benign LungRADs 2 --- repeat 06/2020 Assessment & Plan (09/26/2019 10:26 PM DRYING FRAME OPERATOR): 06/2019 LDCT Several 2-3mm nodules, probable benign LungRADs 2 --- repeat 06/2020 Hyperplastic rectal polyp 05/20/2019 Overview (05/20/2019): Colonoscopy 01/29/2012 at [facility]--->2021 Assessment & Plan (05/28/2019 7:33 PM CDT): Recvd colonoscopy and due to repeat in 2021 Hiatal hernia 05/20/2019 Mixed hyperlipidemia 05/20/2019 Assessment & Plan (11/19/2024 11:45 PM DRYING FRAME OPERATOR): Encouraged patient to follow low fat/low chol [...] 80 Assessment & Plan (11/24/2023 10:34 AM DRYING FRAME OPERATOR): Encouraged patient to follow low fat/low chol diet like the Mediterranean diet. Increase good fats in the diet. Increase exercise. Monitor labs as needed. Continue pravastatin 80 Assessment & Plan (08/15/2023 5:03 PM DRYING FRAME OPERATOR): Encouraged patient to follow low fat/low chol [...] Zetia Assessment & Plan (08/01/2021 9:33 PM DRYING FRAME OPERATOR): Encouraged patient to follow fat/low chol diet [...] statin Assessment & Plan (07/29/2020 7:34 AM DRYING FRAME OPERATOR): Encouraged patient to follow fat/low chol diet like the Mediterranean diet. Increase good fats in the diet. Increase exercise. Monitor labs as needed. Assessment & Plan (03/27/2020 8:02 AM CDT): Encouraged patient to continue low fat/low chol diet. Continue exercise. Increase good fats in the diet. Monitor labs as needed. Stable with zetia and pravastatin Assessment & Plan (09/26/2019 7:39 AM DRYING FRAME OPERATOR): Encouraged patient to continue low fat/low chol [...] change Assessment & Plan (08/15/2023 5:03 PM DRYING FRAME OPERATOR): Patient is legally blind. Continue with Ophthalmology Assessment & Plan (04/08/2023 8:47 PM CDT): No change Assessment & Plan (03/27/2020 8:02 AM CDT): No change Assessment & Plan (09/26/2019 7:39 AM DRYING FRAME OPERATOR): No change Assessment & Plan (05/28/2019 7:35 PM CDT): No change Cigarette smoker 05/20/2019 Assessment & Plan (08/11/2023 8:45 AM DRYING FRAME OPERATOR): Encouraged smoking cessation. Discussed 3 minutes. Reviewed options for assistance with cessation. Reviewed usp sequela associated with smoking. Pt declines assistance at this time but may contact the office at anytime for further help as they desire. Assessment & Plan (04/08/2023 8:47 PM CDT): Encouraged smoking cessation. Discussed 3 minutes. Reviewed options for assistance with cessation. Reviewed usp sequela associated with smoking. Pt declines assistance at this time but may contact the office at anytime for further help as they desire. Low-dose CT will be due in May. It is already scheduled Assessment & Plan (12/12/2022 9:42 PM CDT): Encouraged smoking cessation. Discussed 3 minutes. Reviewed options for assistance with cessation. Reviewed usp sequela associated with smoking. Pt declines assistance at this time but may contact the office at anytime for further help as they desire. Assessment & Plan (08/15/2022 6:44 PM DRYING FRAME OPERATOR): Encouraged smoking cessation. Discussed 3 minutes. Reviewed options for assistance with cessation. Reviewed usp sequela associated with smoking. Pt declines assistance at this time but may contact the office at anytime for further help as they desire. Assessment & Plan (05/09/2022 8:19 PM CDT): Encouraged smoking cessation. Discussed 3 minutes. Reviewed options for assistance with cessation. Reviewed usp sequela associated with smoking. Pt declines assistance at this time but may contact the office at anytime for further help as they desire. Assessment & Plan (08/01/2021 9:33 PM DRYING FRAME OPERATOR): Encouraged smoking cessation. Discussed 3 minutes. Reviewed options for assistance with cessation. Reviewed usp sequela associated with smoking. Pt declines assistance at this time but may contact the office at anytime for further help as they desire. Assessment & Plan (05/17/2021 11:41 PM CDT): Encouraged smoking cessation. Discussed 3 minutes. Reviewed options for assistance with cessation. Reviewed ad terminal makeup operator sequela associated with smoking. Pt declines assistance at this time but may contact the office at anytime for further help as they desire. Assessment & Plan (03/12/2021 12:31 PM CDT): Encouraged smoking cessation. Discussed 3 minutes. Reviewed options for assistance with cessation. Reviewed ad terminal makeup operator sequela associated with smoking. He is slowing down. Offered assistance. May call if decides he wants help Assessment & Plan (07/29/2020 7:34 AM DRYING FRAME OPERATOR): Encouraged smoking cessation. Discussed 3 minutes. Reviewed options for assistance with cessation. Reviewed ad terminal makeup operator sequela associated with smoking. Pt declines assistance at this time but may contact the office at anytime for further help as they desire. Assessment & Plan (03/27/2020 8:02 AM CDT): Encouraged smoking cessation. Discussed 3 minutes. Reviewed options for assistance with cessation. Reviewed usp sequela associated with smoking. Pt declines assistance at this time but may contact the office at anytime for further help as they desire. Assessment & Plan (09/26/2019 7:39 AM DRYING FRAME OPERATOR): Encouraged smoking cessation. Discussed 3 minutes. Reviewed options for assistance with cessation. Reviewed ad terminal makeup operator sequela associated with smoking. Pt declines assistance at this time but may contact the office at anytime for further help as they desire. Assessment & Plan (07/14/2019 7:05 PM CDT): Encouraged smoking cessation. Discussed 3 minutes. Reviewed options for assistance with cessation. Reviewed ad terminal makeup operator sequela associated with smoking. Pt declines assistance [...] 05/20/2019 Assessment & Plan (11/19/2024 11:45 PM DRYING FRAME OPERATOR): Pre-diabetes/hyperglycemia is a precursor to Dm. Stressed [...] diabetes. Assessment & Plan (11/24/2023 10:34 AM DRYING FRAME OPERATOR): Pre-diabetes/hyperglycemia is a precursor to Dm. Stressed importance of working on diet (decrease your simple sugars and one carbohydrate with each meal) and increase you exercise to achieve weight loss and this will help prevent you from progressing to diabetes. Assessment & Plan (08/15/2023 5:03 PM DRYING FRAME OPERATOR): Pre-diabetes/hyperglycemia is a precursor to Dm. Stressed [...] diabetes. Assessment & Plan (08/01/2021 9:33 PM DRYING FRAME OPERATOR): Pre-diabetes/hyperglycemia is a precursor to Dm. Stressed [...] diabetes. Assessment & Plan (07/29/2020 7:34 AM DRYING FRAME OPERATOR): Pre-diabetes is a precursor to Dm. Stressed [...] labs Assessment & Plan (09/26/2019 10:27 PM DRYING FRAME OPERATOR): This is a significant, separately identifiable problem [...] 024 Assessment & Plan (11/24/2023 10:35 AM DRYING FRAME OPERATOR): Encouraged healthy lifestyle, good nutrition and exercise. Encouraged Calcium and Vitamin D and weight bearing exercise for bone health. Reviewed immunizations Reviewed age appropirate screenings. Need for influenza vaccination 08/15/2023 11/24/2023 Assessment & Plan (08/15/2023 5:04 PM DRYING FRAME OPERATOR): Flu vaccine updated in the office today BMI 22.0-22.9, adult 07/22/2023 024 Assessment & Plan (08/11/2023 8:12 AM DRYING FRAME OPERATOR): Weight/BMI is in healthy range. Continue healthy [...] 04/03/2023 Assessment & Plan (08/15/2022 6:45 PM DRYING FRAME OPERATOR): Flu updated in the office today BMI [...] test outpatient. Was referred to an outside credit processor. Encouraged to consider seeing a [facility] group of cardiologists so all of his providers are in the same system. He is in agreement. Referral made to Dr. Eduardo as he has multiple risk factors. BMI 23.0-23.9, adult 01/21/2022 Assessment & Plan (01/21/2022 11:10 AM CDT): Weight/BMI is in healthy range. Continue healthy lifestyle to maintain. BMI 21.0-21.9, adult 08/01/2021 Assessment & Plan (08/01/2021 7:28 AM DRYING FRAME OPERATOR): Weight/BMI is in healthy range. Continue healthy lifestyle to maintain. Medicare annual wellness visit, subsequent 08/01/2021 08/15/2022 Assessment & Plan (08/01/2021 9:34 PM DRYING FRAME OPERATOR): Encouraged healthy lifestyle, good nutrition and exercise. Encouraged Calcium and Vitamin D and weight bearing exercise for bone health. Reviewed immunizations. Reviewed age appropirate screenings. Medicare Wellness Documentation is completed within the chart Fatigue 05/17/2021 05/02/2022 Assessment & Plan (08/01/2021 9:34 PM DRYING FRAME OPERATOR): Probably multifactorial. Check labs and followup to [...] 024 Assessment & Plan (11/24/2023 10:34 AM DRYING FRAME OPERATOR): Weight/BMI is in healthy range. Continue healthy [...] 05/02/2022 Assessment & Plan (07/29/2020 7:34 AM DRYING FRAME OPERATOR): Probably multifactorial. Check labs and followup to re-evaluate Need for immunization against influenza 07/29/2020 11/24/2020 Assessment & Plan (07/29/2020 7:34 AM DRYING FRAME OPERATOR): Updated in office today BMI 22.0-22.9, adult 03/27/2020 024 Assessment & Plan (05/20/2024 7:37 PM CDT): Weight/BMI is in healthy range. Continue healthy lifestyle to maintain. Assessment & Plan (07/29/2020 7:34 AM DRYING FRAME OPERATOR): Weight/BMI is in healthy range. Continue healthy [...] 020 Assessment & Plan (09/26/2019 7:39 AM DRYING FRAME OPERATOR): Weight/BMI is in healthy range. Continue healthy lifestyle to maintain. Annual physical exam 09/26/2019 020 Assessment & Plan (09/26/2019 7:40 AM DRYING FRAME OPERATOR): Encouraged healthy lifestyle, good nutrition and exercise. Encouraged Calcium and Vitamin D and weight bearing exercise for bone health. Reviewed immunizations Reviewed age appropirate screenings. Influenza vaccine refused 09/26/2019 Assessment & Plan (09/26/2019 7:40 AM DRYING FRAME OPERATOR): Encouraged vaccine. Reviewed risks/ benefits. Patient refuses and accepts risks. Esophagitis determined by endoscopy 05/20/2019 05/02/2022 Gastritis 05/20/2019 05/02/2022 Essential (primary) hypertension 05/20/2019 05/20/2024 Assessment & Plan (11/24/2023 10:34 AM DRYING FRAME OPERATOR): Bp is stable/in acceptable range for any co-morbidities. Encouraged to limit sodium intake and exercise for weight control. Continue losartan 50 Assessment & Plan (08/15/2023 5:04 PM DRYING FRAME OPERATOR): Bp is stable/in acceptable range for any co-morbidities. Encouraged to limit sodium intake and exercise for weight control. Continue per Dr. Curtis Assessment & Plan (08/11/2023 8:45 AM DRYING FRAME OPERATOR): Bp is stable/in acceptable range for any [...] losartan Assessment & Plan (08/15/2022 6:44 PM DRYING FRAME OPERATOR): Bp is stable/in acceptable range for any [...] 50 Assessment & Plan (08/01/2021 9:33 PM DRYING FRAME OPERATOR): Bp is stable/in acceptable range for any [...] Losartan/HCTZ Assessment & Plan (07/29/2020 7:33 AM DRYING FRAME OPERATOR): Bp is stable/in acceptable range for any co-morbidities. Encouraged to limit sodium intake and exercise for weight control. Losartan and HCTZ Assessment & Plan (03/27/2020 8:00 AM CDT): Bp is stable/in acceptable range for any co-morbidities. Encouraged to limit sodium intake and exercise for weight control. Continue losartan/HCTZ Assessment & Plan (09/26/2019 7:38 AM DRYING FRAME OPERATOR): Bp is stable/in acceptable range for any [...] 01/21/2022 Assessment & Plan (08/01/2021 9:34 PM DRYING FRAME OPERATOR): Persistent hiccups. Has consulted with multiple providers and been to the ER. States the ER started him on a new medication but he is unsure of the name. Encouraged him to call the office so we can get his listing updated. Assessment & Plan (05/17/2021 11:41 PM CDT): Was started on chlorpromazine in the ER. Continue with GID[facility]. Staley. Assessment & Plan (03/12/2021 12:28 PM CDT): Has had extensive workup with Neuro, ENT and now back to GI. Await recommendations. Assessment & Plan (02/09/2021 8:16 PM CDT): Persistent hiccups. Continue per Dr. Stokes. He is still on omeprazole Assessment & Plan (07/29/2020 7:32 AM DRYING FRAME OPERATOR): Continue per ENT/Pulm. He is responding to BID omeprazole. Will monitor Assessment & Plan (03/27/2020 7:59 AM CDT): Dr. Stokes started him on Pantoprazole. He hasn't noted much difference. Needs to followup to complete workup. Encouraged patient to call and make appointment. Assessment & Plan (09/26/2019 10:26 PM DRYING FRAME OPERATOR): This is a significant, separately identifiable problem that was evaluated and managed on the same day as the wellness exam Less frequent than in the past. Continue the PPI and monitor Rx sent to pharmacy. Assessment & Plan (08/24/2019 9:04 AM DRYING FRAME OPERATOR): Improving with the PPI. Continue PPI and [...] 2018 Assessment & Plan (08/24/2019 9:04 AM DRYING FRAME OPERATOR): Encouraged vaccine. Reviewed risks/ benefits. Patient refuses [...] = 0.6 oz pur e alcohol) social [employer] Utilities Answer Date Recorded In the past 12 months has [employer], gas, oil, or water [employer] threatened to shut off services in your [...] often do you attend chur ch or advent services? Patient declined 12/03/2023 Do you belong to any clubs o r organizations such as jain groups, unions, fraternal or athletic groups, or [...] No 12/03/2023 Housing Stability Vital Sign Answer Oamr e Recorded In the last 12 months, [...] place to sleep or slept in a assisted (including now)? No 12/03/2023 Personal Safety Answer Date Recorded Have you ever been in or are you currently in a harmful physical or emotional relationship or is someone making you feel afraid or unsafe? Denies 08/01/2024 Sex and Gender Information Value Date Recorded Sex Assigned at Not on file Legal Sex Male 12:22 AM DRYING FRAME OPERATOR Gender Identity Not on file Sexual Orientation [...] Diagnosis Comments TSH Routine 10/03/2024 10:42 AM DRYING FRAME OPERATOR Fatigue, unspecified type LIPID PANEL Routine 10/03/2024 10:42 AM DRYING FRAME OPERATOR Mixed hyperlipidemia HEMOGLOBIN A1C Routine 10/03/2024 10:42 AM DRYING FRAME OPERATOR Pre-diabetes COMPREHENSIVE METABOLIC PANEL Routine 10/03/2024 10:42 AM DRYING FRAME OPERATOR Hyponatremia CBC WITH AUTO DIFFERENTIAL Routine 10/03/2024 10:42 AM DRYING FRAME OPERATOR Fatigue, unspecified type CT CHEST WO CONTRAST F/U LUNG SCREEN PROTOCOL Schedule Routine, Read Routine (OP Routine) 10/03/2024 9:25 AM DRYING FRAME OPERATOR Pulmonary nodules PSA SCREEN Routine 12/16/2022 12:39 PM CDT Prostate cancer screening HEPATITIS PANEL, ACUTE Routine 05/03/2022 5:40 AM CDT HM COLONOSCOPY Routine 07/14/2021 from Last 3 Months or Most Recently Relevant to Health Maintenance Results * (ABNORMAL) CBC with auto differential (10/03/2024 10:42 AM DRYING FRAME OPERATOR) WBC 7.4 3.8 - 10.8 Thousand/u L [...] 32.0 - 36.0 g/dL [facility] Comment: For adults, a slight decrease in [...] abs 340 15 - 500 cells/uL [facility] Basophils, abs 59 0 - 200 cells/uL [facility] Neutrophils 68.5 % [facility] Lymphocyte pct 21.1 % [facility] Monocytes 5.0 % [facility] Eosinophils 4.6 % [facility] Basophils 0.8 % [facility] Blood 10/03/2024 10:4 2 AM DRYING FRAME OPERATOR 10/03/2024 10:49 AM DRYING FRAME OPERATOR Narrative [facility] - 10/03/2024 11:53 PM DRYING FRAME OPERATOR FASTING:YES FASTING: YES Nuris ROBLES LAB BLOOD ORDERABLES Final Result Performing Organization Address City/[facility] Co de Phone Number [facility] [address] [place] [address] * TSH (10/03/2024 10:42 AM DRYING FRAME OPERATOR) Pathologist [facility] TSH 1.29 0.40 - 4.50 mIU/L [facility] Blood 10/03/2024 10:4 2 AM DRYING FRAME OPERATOR 10/03/2024 10:49 AM DRYING FRAME OPERATOR Narrative [facility] - 10/03/2024 11:53 PM DRYING FRAME OPERATOR FASTING:YES FASTING: YES Nuris ROBLES LAB BLOOD ORDERABLES Final Result Performing Organization Address [facility] Co de Phone Number [facility] [address] [place] [address] * (ABNORMAL) Hemoglobin A1c (10/03/2024 10:42 AM DRYING FRAME OPERATOR) Hgb A1C 5.7(H) <5.7 % of total Hgb [facility] Comment: For someone without known diabetes, [...] for children. Blood 10/03/2024 10:4 2 AM DRYING FRAME OPERATOR 10/03/2024 10:49 AM DRYING FRAME OPERATOR Narrative [facility] - 10/03/2024 11:53 PM DRYING FRAME OPERATOR FASTING:YES FASTING: YES us Nuris ROBLES LAB BLOOD ORDERABLES Final Result [facility] [address] [place] [address] * Lipid panel (10/03/2024 10:42 AM DRYING FRAME OPERATOR) [facility] Cholesterol 152 <200 mg/dL [facility] HDL 52 > OR = 40 mg/dL [facility] Triglycerides 72 <150 mg/dL [facility] LDL 84 mg/dL (calc) [facility] Comment: Reference range: <100 Desirable range <100 mg/dL for primary prevention; <70 mg/dL for patients with CHD or diabetic patients with > or = 2 CHD risk factors. LDL-C is now calculated using the Adal-Christian calculation, which is a validated novel method providing better accuracy than the Friedewald equation in the estimation of LDL-C. Adal SS et al. NICOLE. 2013;310(19): 1679-8978 (http://education.CDP/faq/XDG595) Chol/HDL ratio 2.9 <5.0 (calc) [facility] mary Gross Non-HDL, (LDL+VLDL) 100 <130 mg/dL (calc) [facility] mary Gross Comment: For patients with diabetes plus 1 major ASCVD risk factor, treating to a non-HDL-C goal of <100 mg/dL (LDL-C of <70 mg/dL) is considered a therapeutic option. Blood 10/03/2024 10:4 2 AM DRYING FRAME OPERATOR 10/03/2024 10:49 AM DRYING FRAME OPERATOR Narrative QUEST - 10/03/2024 11:53 PM DRYING FRAME OPERATOR FASTING:YES FASTING: YES us Nuris ROBLES LAB BLOOD ORDERABLES Final Result DMITRI Gross [address] [place] [address] * (ABNORMAL) Comprehensive metabolic panel (10/03/2024 10:42 AM DRYING FRAME OPERATOR) Pathologist [facility] Glucose 84 65 - 99 mg/dL D[facility]ri [place] [facility] Gross Comment: Fasting reference interval BUN 12 7 - 25 mg/dL Dmitri Gross Creatinine 0.94 0.70 - 1.35 mg/dL Dmitri Solorzano-Porsche Gross eGFR 92 > OR = 60 mL/min/1.7 3m2 Dmitri [facility]Porsche Gross BUN/creat ratio SEE NOTE: 6 - 22 (calc) Dmitri [facility] Gross Comment: Not Reported: BUN and Creatinine are within reference range. Sodium 140 135 - 146 mmol/L Dmitri [facility] Gross Potassium, pl 5.0 3.5 - 5.3 mmol/L Dmitri [facility] Gross Chloride 103 98 - 110 mmol/L Dmitri [facility]S mary Gross CO2 30 20 - 32 mmol/L Dmitri Solorzano-S mary Gross Calcium 9.8 8.6 - 10.3 mg/dL Dmitri [facility] Gross Protein, sr 6.6 6.1 - 8.1 g/dL Dmitri Solorzano-Porsche Gross Albumin 4.2 3.6 - 5.1 g/dL Dmitri Solorzano-S mary Gross GLOBULIN 2.4 1.9 - 3.7 g/dL (calc) Dmitri [facility] mary Gross Alb/glob ratio 1.8 1.0 - 2.5 (calc) Dmitri [facility] mary Gross Bilirubin, total 0.4 0.2 - 1.2 mg/dL Dmitri [facility] mary Gross Alk phos 53 35 - 144 U/L [facility] mary Gross AST 8(L) 10 - 35 U/L Dmitri [facility]Porsche Gross ALT (SGPT) 6(L) 9 - 46 U/L [facility] Gross Blood 10/03/2024 10:4 2 AM DRYING FRAME OPERATOR 10/03/2024 10:49 AM DRYING FRAME OPERATOR Narrative QUEST - 10/03/2024 11:53 PM DRYING FRAME OPERATOR FASTING:YES FASTING: YES Nuris ROBLES LAB BLOOD ORDERABLES Final Result [facility] [address] [place] [address] * CT Chest WO Contrast F/U Lung Screen Protocol (10/03/2024 9:25 AM DRYING FRAME OPERATOR) Anatomical Region Laterality Modality Chest N/A Computed Tomogra phy 10/03/2024 7:11 PM DRYING FRAME OPERATOR Narrative 10/03/2024 7:17 PM DRYING FRAME OPERATOR EXAM DESCRIPTION: CT CHEST WO CONTRAST F/U [...] Estuardo Ortiz M.D. KT T: Report ID: [id number] Reading Location: [place] [address] Tasia Hoffman MD IMG CT PROCEDURES Final [...] BLOOD ORDERABLES Final Result Performing Organization Address City/State/[facility] Co de Phone Number ANABELA [address] [facility] Department [place] [address] * Hepatitis panel, acute (05/03/2022 5:40 AM CDT) Pathologist [facility] Hep A IgM Nonreactive Nonreactive ANABELA Comment: Interpretive Data: If Hep A IgM Ab is reported as Equivocal, a new sample should be drawn in two weeks for testing. Current interpretive data was last revised on 19. Hep B core IgM Nonreactive Nonreactive ANABELA Comment: Interpretive Data If HepB Core IgM Ab is reported as Equivocal, a new sample should be drawn in two weeks for testing. Current interpretive data was last revised on 19. Hep C Ab Nonreactive Nonreactive ANABELA Comment: Interpretive Data Nonreactive: Antibodies to HCV [...] last revised on 2019. HepBsAg Nonreactive Nonreactive ANABELA SOLIS Blood 05/03/2022 5:40 AM CDT 05/03/2022 6:36 AM CDT Pamela Gongora DO LAB MICROBIOLOGY - GENERAL OR DERABLES Final Result ANABELA SOLIS [address] [facility] Department [place] [address] * (ABNORMAL) COLONOSCOPY (07/14/2021) Jame Mg MD HEALTH MAINTENANCE Edited Result - Final from Last 3 Months or Most Recently Relevant to Health Maintenance Insurance AET MEDICARE GOLD AETNA MEDICARE [employer] AET MEDICARE GOLD Advance Directives For more information, please contact: [phone] * Full Code (Latest Code Status on [...] 10:34 PM 11/16/2022 9:56 PM Care Teams High School Band Director Relationship Specialty Start Date End Date Nuris Berger PA [address] [address] PCP - General Internal Medicine 12/28/18 Jonatan Stokes MD [address] [place] [address] Consulting Physician Otolaryngology 03/27/20 Irma Bajwa MD [address] [place] [address] Consulting Physician Neurology 05/07/22
--- OUTSIDE RECORDS SUMMARY | 2024-12-26 07:33 | XMS_ITS | Clinical Summary ---
Author Organization [facility] Address [address] [address] Care Team Providers Care Auction Clerk Name Role Phone Nuris Berger PA-C Primary Care Provider [phone] [facility],non-owned Affiliates and Associated Physician Practices is amultiple site organization consisting of ambulatory clinics and hospital sitesin [place], [place], [place] and [place]. This disclosure is being madepursuant to the Care Everywhere program and may not contain all information available regarding this patient. Last updated 18.[facility] [employer] Allergies Active Allergy Reactions Criticality Noted Date [...] tablet 06/17/2023 Active ergocalciferol (Drisdol) 1.25 MG (23251 UT) capsule Take 1 (one) capsule by [...] 11 07/21/2024 Active trimethoprim-poly myxin B (Polytrim) 77059-3.1 UNIT/ML-% ophthalmic solution Instill 1 (one) drop [...] Reviewed options for assistance with cessation. Reviewed penitentiary sequela associated with smoking. Pt declines assistance [...] polyp 05/20/2019 Overview (12/24/2020): Colonoscopy 01/29/[address] [facility]--->2021 Last Assessment & Plan: Recvd colonoscopy and [...] Description 12/13/2024 9:15 AM CDT Office [facility] Ophthalmology [address] [place] [phone] Louis Hansen MD H/O cornea transplant (Primary Dx); Pseudophakia 12/13/2024 Travel 12/01/2024 8:30 AM CDT Clinical Support [facility] - Ophthalmology [address] [place] [phone] Tyrel Velez MD 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 (Primary Dx) 12/01/2024 8:25 AM CDT Clinical Support [facility] - Ophthalmology [address] [place] [phone] Tyrel Velez MD 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 (Primary Dx) 12/01/2024 8:20 AM CDT Office Visit [facility] - Ophthalmology [address] [place] [phone] Tyrel Velez MD 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 (Primary Dx); H/O cornea transplant; Central corneal opacity, left 12/01/2024 8:15 AM CDT Clinical Support [facility] - Ophthalmology [address] [place] [phone] Tyrel Velez MD 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 (Primary [...] Comments Blood Pressure 128/70 08/26/2023 12:43 PM CORPORATE TRAVEL CONSULTANT Pulse 65 08/26/2023 12:43 PM CORPORATE TRAVEL CONSULTANT Temperature 35.9 C (96.7 F) 08/26/2023 12:34 PM CORPORATE TRAVEL CONSULTANT Respiratory Rate 14 08/26/2023 12:43 PM CORPORATE TRAVEL CONSULTANT Oxygen Saturation 98% 08/26/2023 12:34 PM CORPORATE TRAVEL CONSULTANT Inhaled Oxygen Concentration - - Weight 64.9 kg (143 lb) 08/26/2023 9:01 AM CORPORATE TRAVEL CONSULTANT Height 172.7 cm (5' 8 ) 08/26/2023 9:01 AM CORPORATE TRAVEL CONSULTANT Body Mass Index 21.74 08/26/2023 9:01 AM CORPORATE TRAVEL CONSULTANT Plan of Treatment Upcoming Encounters Date Type Department Care Team (Late st Contact Info) Description 04/18/2025 9:15 AM CDT Office Visit [facility] - Ophthalmology [address] [place] [phone] Louis Hansen MD [address] [facility] DEPT [place] [phone] 08/07/2025 8:40 AM CORPORATE TRAVEL CONSULTANT Office Visit [facility] - Ophthalmology [address] [place] [phone] Tyrel Velez MD [address] [place] [phone] Health Maintenance Due Date Last Done Comments [...] this topic Medical Devices Implanted Type Area Director Of Revenue Cycle Management Device Identifier Shelf Expiration Date Model / Serial / Lot Drain Glcm Thk.9mm Blnt Tpr med Flxb - [id number] Implanted:Qty: 1 on 05/04/2018 by Tyrel Velez MD at [facility] Left: Eye [employer] 03/15/2020 7 / [id number] / [id number] Graft Tissue Ttplst Sclr .8x.5cm Lopro - [id number] Implanted:Qty: 1 on 05/04/2018 by Tyrel Velez MD at [facility] Left: Eye [employer] 01/17/2023 [id number] / [id number] / [id number] Impl Opth 250sq Mm Brvldt Magaly 1 Qdrnt - [id number] Implanted:Qty: 1 on 06/16/2023 by Tyrel Velez MD at [facility] Left: Eye [employer] 01/09/2024 [id number] / [id number] / Graft Tissue Ttpl Ioptch Sclr .8x.5cm - [id number] Implanted:Qty: 1 on 06/16/2023 by Tyrel Velez MD at [facility] Left: Eye [employer] 09/19/2027 [id number] / [id number] / Graft Tissue Ttpl Ioptch Sclr .8x.5cm - [id number] Implanted:Qty: 1 on 06/16/2023 by Tyrel Velez MD at [facility] Left: Eye [employer] 09/19/2027 [id number] / [id number] / J Luis Cornea - [id number] Implanted:Qty: 1 on 08/26/2023 by Louis Hansen MD at [facility] Left: Eye [employer] 09/05/2023 [id number] / [id number] / [id number] Description:Product Numb:[id number] EXP:09-05-2023 DIN:[id number] Advance Directives * Full Code (Latest Code Status on File) Date Activated Date Inactivated Comments 05/04/2018 11:35 AM 05/04/2018 1:21 PM * Full Code Date Activated Date Inactivated Comments 05/04/2018 7:43 AM 05/04/2018 11:35 AM Care Teams Auction Clerk Relationship Specialty Start Date End Date Nuris Berger PA-C PCP - General 02/13/20
--- OUTSIDE RECORDS SUMMARY | 2024-12-26 07:33 | XMS_ITS | Clinical Summary ---
Author Organization [facility] Address Replaced by [facility] [place] [address] Care Team Providers Care Stone Unloader Name Role Phone Nuris Berger Primary Care Provider [phone] Allergies No known active allergies Medications albuterol [...] Comments Blood Pressure 120/62 09/04/2021 8:52 AM PSYCHOLOGY INSTRUCTOR Pulse 82 09/04/2021 8:52 AM PSYCHOLOGY INSTRUCTOR Temperature 36.3 C (97.4 F) 09/04/2021 8:52 AM PSYCHOLOGY INSTRUCTOR Respiratory Rate 16 09/04/2021 8:52 AM PSYCHOLOGY INSTRUCTOR Oxygen Saturation 97% 09/04/2021 8:52 AM PSYCHOLOGY INSTRUCTOR Inhaled Oxygen Concentration - - Weight 64.4 kg (142 lb) 09/04/2021 8:52 AM PSYCHOLOGY INSTRUCTOR Height 172.7 cm (5' 8 ) 09/04/2021 8:52 AM PSYCHOLOGY INSTRUCTOR Body Mass Index 21.59 09/04/2021 8:52 AM PSYCHOLOGY INSTRUCTOR Plan of Treatment Health Maintenance Due Date [...] complete this topic Insurance AETNA Care Teams Stone Unloader Relationship Specialty Start Date End Date Nuris Berger PA [address] [place] [address] PCP - General PHYSICIAN SWEEP PRESS OPERATOR 06/09/21
[2024-12-26 07:34] LABS: Basophils Absolute Manual 0.15 K/mm3 (0.0-0.1); Basophils Percent Manual 1 % (0-1); Lymphocytes Absolute Manual 1.22 K/mm3 (1.1-4.5); Lymphocytes Percent Manual 8 % (18-44); Monocytes Absolute Manual 2.14 K/mm3 (0.1-0.90); Monocytes Percent Manual 14 % (3-9); Neutrophils Percent Manual 77 % (46-73); Platelet Estimate Adequate (Adequate); Schistocytes None Seen
[2024-12-26 07:43] LABS: Cholesterol 132 mg/dL (0-200); HDL Direct 60 mg/dL; Lipase 87 U/L (23-300); Magnesium 1.6 mg/dL (1.6-2.3); Triglycerides 44 mg/dL (<150)
[2024-12-26 07:54] LABS: LDL Cholesterol Direct 47 mg/dL
[2024-12-26 07:55] LABS: Troponin I < 0.012 ng/mL (0.000-0.034)
[2024-12-26 08:00] LABS: NT Pro B Type Natriuretic Pept 861 pg/mL (19.9-100); Uric Acid 2.7 mg/dL (3.5-8.5)
[2024-12-26] MEDS: AZITHROMYCIN 250 MG TABLET 500 MG PO (08:17)
[2024-12-26 08:29] LABS: Influenza A QL RT-PCR Negative (Negative); Influenza B QL RT-PCR Negative (Negative); RSV RNA, RT-PCR Negative (Negative); SARS-CoV-2 RNA PCR Negative (Negative)
--- NOTE | 2024-12-26 09:41 | PC.NURSE ---
Patient received from Er. Telemetry applied. Admission completed.
[2024-12-26 09:55] LABS: Creatinine Urine < 3.2 mg/dL
[2024-12-26 10:18] LABS: Sodium 127 mmol/L (137-145)
[2024-12-26 10:59] LABS: Creatinine Urine 6.4 mg/dL; Total Protein Urine Random 15 mg/dL; Ur Ttl Prot Creatinine Ratio 2.34 mg/mg (0-0.20)
[2024-12-26 11:05] LABS: Total Protein Urine Random 15 mg/dL
[2024-12-26 11:54] LABS: Total Volume Urine, Random 180 mL
[2024-12-26 11:55] LABS: Urea Random Urine < 67 MG/DL
--- NOTE | 2024-12-26 12:30 | P.HP_ITS ---
H&P: HPI History of Present Illness Date/Time: 12/26/24 12:30 Chief Complaint: Concerns for low sodium. Narrative: This is a pleasant 64-year-old male with chronic obstructive pulmonary disease, hypertension, hyperlipidemia, chronic hiccups, and glaucoma who presented to the emergency department with concerns for low sodium. The patient has had issues with intermittent hyponatremia over the years and it has been more chronic over the last 6 months with sodiums ranging from 122 to 131. He takes sodium chloride tablets 3 times a day which are prescribed by his primary care provider. His chronic hiccups have been worse over the past week and are now pretty constant. Last night he admits to did consuming a large amount of fluid to try to help his hiccups and he estimates that he drank ?a good couple of gallons of water? in addition to two large bottles of Gatorade and 10 cans of orange soda. Not long thereafter he began to feel weak, lightheaded, and dizzy and he came in for evaluation. Later on in the evening he developed nausea and reports having numerous episodes of emesis and he did not sleep well at all last night. He has been coughing a bit since that time though it is not productive. He denies syncope, headache, confusion, shortness of breath, chest pain, abdominal pain, hematemesis, diarrhea, dysuria, and edema. Apparently he complained of some chest discomfort in the ED but denied that to me. In the ED: Vital signs were stable on arrival with blood pressures being a bit high. Labs were significant for WBC count of 15.3, hemoglobin 11.6, sodium 119, chloride 84, BUN less than 2, creatinine 0.60, proBNP a 61. Urine specimen was dilute and the lab was unable to run a urine sodium CT of the chest, abdomen, and pelvis showed mild patchy airspace opacity in the left lower lobe and lingula suspicious for pneumonia, small sliding type hiatal hernia with fluid in mild wall thickening in the distal esophagus, and 1.2 cm soft tissue density at the fundus of the gallbladder. Abdominal ultrasound showed multiple small cysts in the liver and the gallbladder polyp versus mass versus noncalcified stone measuring 1 x 1.1 x 1.1 cm. He is being admitted in this setting for close monitoring and nephrology consultation given the hyponatremia. Review of Systems Review of Systems: 12 systems were reviewed and are negativ e except for as per HPI. [facility] Past Medical History Medical History Adenomatous colon polyp Erosive esophagitis Anemia of chronic disease Chronic hiccups Hyponatremia Tobacco abuse Normocytic anemia Glaucoma Legally blind. Chronic obstructive pulmonary disease Hyperlipidemia Hypertension Surgical History Surgical History History of enucleation of eye Right, secondary to recurrent infection. Family History Family History Grandparent Acute myocardial infarction Mother Acute myocardial infarction Skin cancer Father Acute myocardial infarction Sibling Cancer Social History Social History Social History: Surrogate decision maker: Svitlana Hines, . Code status: Full code. Smoking packs per day: 1 Smoking cigarettes per day: 20.0 Years smoked: 30 Smoking pack-years: 30.00 Smoking status: Former smoker Tobacco type: cigarettes Smoking end date: 11/03/20 Alcohol intake: current Drinks per week: 3 Substance use: never Substance use type: does not use Do You Feel Safe in your Home?: Yes Lack of Transportation: No Lack of Food: Never True Current Housing: I Have Housing Concerned About Future Housing: No Difficulty Paying Gas/Electric Bills: No Difficulty Paying for Meds: No Currently Unemployed: No Education: High School Diploma/GED Difficulty w/ Childcare or Family Care: No Living arrangements: with family Additional living arrangements comments: The patient lives with his in [place]. 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 Spiritual care concerns: No Meds Home Medications and Allergies Home Medications ?Medication ?Instructions ?Recorded ?Confirmed ?Type losartan 50 mg tablet 50 mg PO DAILY 03/02/21 12/26/24 History montelukast 10 mg tablet 10 mg PO DAILY 03/02/21 12/26/24 History pravastatin 80 mg tablet 80 mg PO DAILY 03/02/21 12/26/24 History cholecalciferol (vitamin D3) 25 25 mcg PO DAILY 03/29/21 12/26/24 History mcg (1,000 unit) capsule (Vitamin D3) cyanocobalamin (vitamin B-12) 100 2,000 mcg PO DAILY 03/29/21 12/26/24 History mcg tablet albuterol sulfate 90 mcg/actuation 1 inh inhalation QID PRN shortness 05/02/21 12/26/24 Rx aerosol inhaler of breath or wheezing #8.5 grams pantoprazole 40 mg tablet,delayed 40 mg PO BID 30 days #60 tabs 05/15/21 12/26/24 Rx release dorzolamide 22.3 mg-timolol 6.8 1 drp LEFT EYE TID 06/29/24 12/26/24 History mg/mL eye drops metoclopramide HCl 10 mg tablet 10 mg PO Q6H PRN nausea and 12/21/24 12/26/24 Rx vomiting #10 tabs budesonide-formoterol HFA 80 2 puff inhalation Q12H 12/26/24 12/26/24 History mcg-4.5 mcg/actuation aerosol inhaler gabapentin 300 mg capsule 300 mg PO DAILY 12/26/24 12/26/24 History prednisolone acetate 1 % eye 1 drp LEFT EYE TID 12/26/24 12/26/24 History drops,suspension sodium chloride 1,000 mg soluble 1,000 mg PO TID 12/26/24 12/26/24 History tablet Allergies Allergy/AdvReac Type Severity Reaction Status Date / Time No Known Allergies Allergy Verified 12/21/24 14:54 Vital Signs Vital Signs - 24 hr 12/26/24 06:31 12/26/24 06:47 12/26/24 07:15 Temperature Pulse Rate 71 74 67 Respiratory Rate 22 H 22 H 28 H Blood Pressure 158/74 H 167/82 H Pulse Oximetry 97 97 97 Oxygen Delivery 12/26/24 07:17 12/26/24 08:23 12/26/24 09:15 Temperature 99 F 98.6 F Pulse Rate 72 71 60 Respiratory Rate 22 H 25 H 20 Blood Pressure 168/79 H 158/69 H 154/70 H Pulse Oximetry 98 97 97 Oxygen Delivery 12/26/24 09:31 12/26/24 10:00 12/26/24 11:57 Temperature 98.6 F Pulse Rate 67 67 Respiratory Rate 22 H Blood Pressure 150/61 H Pulse Oximetry 97 98 Oxygen Delivery Room Air Exam Narrative: General: Nontoxic-appearing male sitting up in bed in no distress. Weight: 74.4 kg. BMI: 24.9. HEENT: Bilateral hearing aids. Status post right eye enucleation. Left cornea is cloudy with irregular pupil. Oral mucosa moist. Neck: Supple. Respiratory: Lung sounds are coarse on the left. Cardiovascular: Regular rate and rhythm with S1-S2. Gastrointestinal: Abdomen is soft, nontender, and nondistended with positive bowel sounds. Skin: Warm and dry. Extremities: No cyanosis, clubbing, or edema. Radial and pedal pulses intact. Neurological: Alert and oriented. Cranial nerves 2-12 are grossly intact. No gross focal deficits to casual conversation. Psychiatric: Pleasant and cooperative with normal mood and affect. H&P: Results Labs Labs: Short CBC 12/26/24 Range/Units 06:38 WBC 15.3 H (4.5-10.0) K/mm3 Hgb 11.6 L (14.0-18.0) g/dL Hct 33.6 L (42.0-52.0) % Plt Count 246 (150-375) k/mm3 BMP 12/26/24 12/26/24 06:38 10:01 Sodium 119 L* 127 L Potassium 4.0 Chloride 84 L Carbon Dioxide 24 BUN < 2 L Creatinine 0.60 L Glucose 118 H Calcium 8.9 Cardiac Enzymes 12/26/24 Range/Units 06:38 Troponin I < 0.012 (0.000-0.034) ng/mL Liver Function 12/26/24 Range/Units 06:38 Total Bilirubin 0.5 (0.2-1.3) mg/dL AST 23 (17-59) U/L ALT 13 (6-50) U/L Alkaline Phosphatase 65 (38-126) U/L Albumin 4.3 (3.5-5.1) g/dL Urine 12/26/24 Range/Units 06:38 Urine Color Yellow (Yellow) Urine Appearance Clear (Clear) Urine pH 6.5 (5.0-9.0) Ur Specific [place] 1.002 (1.001-1.035) Urine Protein Negative (Negative) mg/dL Urine Glucose (UA) Negative (Negative) mg/dL Impressions Chest X-Ray 12/26/24 08:04 IMPRESSION: 1. Opacity left lower lung zone suspicious for pneumonia. Chest/Abdomen/Pelvis CT 12/26/24 08:05 IMPRESSION: 1. New mild patchy airspace opacity left lower lobe and lingula suspicious for pneumonia. 2. Small sliding-type hiatal hernia with fluid and mild wall thickening in the distal esophagus suggestive of mild reflux esophagitis. 3. 1.2 cm soft tissue density at the fundus of the gallbladder which could represent a gallbladder polyp, malignancy, sludge or gallstone. Would recommend right upper quadrant ultrasound for further evaluation. 4. 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 Abdomen Ultrasound 12/26/24 09:13 IMPRESSION: Multiple small cysts in the liver. Gallbladder polyp versus a mass versus a noncalcified stone. Assessment and Plan Assessment and plan (1) Hyponatremia: Code(s): E87.1 - Hypo-osmolality and hyponatremia Status: Acute (2) Pneumonia: Code(s): J18.9 - Pneumonia, unspecified organism Status: Acute (3) Gallbladder polyp: Code(s): K82.4 - Cholesterolosis of gallbladder Status: Acute (4) Chronic hiccups: Code(s): R06.6 - Hiccough Status: Chronic (5) Chronic obstructive pulmonary disease: Code(s): J44.9 - Chronic obstructive pulmonary disease, unspecified Status: Chronic (6) Hypertension: Code(s): I10 - Essential (primary) hypertension Status: Chronic Plan The patient presented to the emergency department for evaluation of lightheadedness and dizziness after consuming a large amount of fluid last evening in an attempt to control his hiccups as detailed in HPI. Labs, imaging, EKG, and all reports were personally reviewed. Over the last 6 months he has had chronic hyponatremia for which he is prescribed sodium chloride tablets. He seems to understand that consuming status large amounts of fluid can cause his sodium to lower and it does not sound as though he is always forthcoming with the amount he consumes. Last night he tells me he drink at least 2 gal of water, 10 cans of orange soda, and two large Gatorades. This volume certainly could have acutely dropped his sodium though it was only 3 points lower this morning that was compared to labs drawn a couple of days ago. He did not receive any IV fluids in the ED and a repeat sodium less than 4 hours later was 127. The question is whether the initial sodium level was truly accurate or may have been erroneous however the rest of his labs and electrolytes looks normal. He has put out a lot of very dilute urine since arrival though I am not sure his body could have corrected that quickly. In any event, nephrology has been consulted for their opinion and recommendations as his case is complicated. Blood pressures have been running a bit high and will be monitored. He will need to follow-up closely as an outpatient regarding the gallbladder polyp as it is 1 cm if not a bit bigger and may very well need to come out. No acute issues with regards to COPD. Imaging shows findings of left lower lobe pneumonia and he has been started on azithromycin and ceftriaxone. His home medications will be reviewed and resumed as appropriate. Findings and treatment plan were discussed with the patient. Questions were solicited and answered to satisfaction. The patient's medical management will be taken over by the hospitalist team in a.m. Quality VTE Prophylaxis VTE prophylaxis: pharmacologic ordered Hospitalist [facility] Advance Care Plan I have confirmed that the patient's Advanced Care Plan is present, code status is documented, or surrogate decision maker is listed in patient medical record.: Yes Medication Reconciliation I have utilized all available resources to obtain, update and review the patients current medications (includes all prescriptions, OTC, herbals, cannabis, and nutritional supplements).: Yes
--- NOTE | 2024-12-26 14:30 | P.CONNP_ITS ---
Assessment and Plan Assessment and plan (1) Hyponatremia: Code(s): E87.1 - Hypo-osmolality and hyponatremia Status: Acute Assessment and Plan: * noted history that dates back ~ 4 years ago * sodium levels on previous ER visits noted * suspect admission sodium was lab error * without any specific intervention, sodium improved to 127mmol/L in less than 4 hours * subsequent sodium at 2:00PM is 128mmol/L * however, history does suggest significant free water consumption prior to ER presentation coupled with dilute urine findings * was on salt tablets as an outpatient * reportedly on thorazine and HCTZ on admission which maybe a contributing factor * his possible pneumonia may also partly to blame * at this point, would hold off on any intervention at this time * probably okay to resume his outpatient salt tablets I will continue to follow the patient with you while he remains hospitalized and make further recommendations as deemed necessary. Thank you for allowing me to participate in the care of this patient. L History of Present Illness Reason for Consult Consult date: 12/26/24 Reason for consult: hyponatremia Chief Complaint Chief complaint: Acute on Chronic Hyponatremia History of Present Illness Narrative: The patient is a 64-year-old male with a past medical history as outlined below who presented to [facility] Emergency Room earlier today due to concerns of a low sodium level. The patient has had issues and problems with hyponatremia over last 4 years but apparently has worsened in the last few months as evidence by his ER visits here at [facility] with low sodium levels. His sodium seems to be fluctuating where from 122-131 in that time frame. Given this issue, his primary care physician prescribed him salt tablets to take 3 times a day. The issue of his low sodium level has been complicated by his chronic issue with hiccups that have been going on for last week and an effort to combat this issue, he admits to drinking large quantities of water, Gatorade, and orange soda in an effort to try and subside this symptom. He noted more recently that he feels a bit more weak and lightheaded in association with dizziness which eventually led to his presentation particularly given his ongoing issues and problems with low sodium level as previously diagnosed. He gave no other history with regard to headaches, confusion, shortness of breath, chest pain, abdominal pain, diarrhea, dysuria, or swelling /edema. Workup and evaluation emergency room demonstrated the patient be hemodynamically stable although his blood pressure was a bit elevated. Routine blood test demonstrated a CBC with white cell count of 15.3, hemoglobin 11.6, and a normal platelet count and his chemistry was significant for sodium of 119, chloride of 84, normal renal function, and a proBNP of 61. His urinalysis was significant for a very dilute sample which was difficult to get urine electrolytes from due to this finding. A CT scan of his chest abdomen pelvis was done given the concern that his low sodium level might represent some underlying malignancy but was only telemarketing representative of a mild patchy airspace opacity in the left lower lobe and lingula suspicious for pneumonia along with a small sliding type hiatal hernia and a 1.2 cm soft tissue density at the fundus of the gallbladder. Subsequent right upper quadrant ultrasound demonstrated multiple small cysts in the liver and gallbladder as well. Given his significant hyponatremia and the concern for possible pneumonia, he was admitted to the hospital for further evaluation therapy. Since admission, his repeat sodium level less than 4 hours after the initial blood draw in the ER has increased to 127 millimoles per L and a subsequent sodium level 4 hours later at 2:00 p.m. of showed a sodium level 128 millimoles per L. it is suspected that his initial sodium level of 119 millimoles per L was probably a lab error or a spurious finding. Renal consultation was requested due to his acute on chronic hyponatremia. From my discussion with the patient, he was told about his low sodium level approximately 4 years ago during a previous hospitalization. He cannot tell me specifically how low his sodium level was or what they thought because of his low sodium was at that time. However he reports that he thinks it was his hiccups that led to his low sodium level but cannot clarify or explain much more than that. As already mentioned, he has had issues with low sodium level over the last 6 months from review of his ER visit here to [facility] and was recently initiated on salt tablets by his primary care physician due to the chronicity of this issue. His significant free water intake to 24 hours prior to his presentation to the ER likely explains or as a contributing factor his to her lead to his low sodium level and likely explains a very dilute urine sample although evidence today would argue that his sodium level of 119 on admission was probably incorrect given the rapid improvement in his sodium level and less than 4 hours without any specific or direct interventions. Currently, at the time my evaluation, he appears to be in no acute distress. Review of Systems 2 Review of Systems: As per HPI. [facility] Past Medical History Medical History Adenomatous colon polyp Erosive esophagitis Anemia of chronic disease Chronic hiccups Hyponatremia Tobacco abuse Normocytic anemia Glaucoma Legally blind. Chronic obstructive pulmonary disease Hyperlipidemia Hypertension Surgical History Surgical History History of enucleation of eye Right, secondary to recurrent infection. Family History Family History Grandparent Acute myocardial infarction Mother Acute myocardial infarction Skin cancer Father Acute myocardial infarction Sibling Cancer Social History Social History Social History: Surrogate decision maker: Svitlana Hines, . Code status: Full code. Smoking packs per day: 1 Smoking cigarettes per day: 20.0 Years smoked: 30 Smoking pack-years: 30.00 Smoking status: Former smoker Tobacco type: cigarettes Smoking end date: 11/03/20 Alcohol intake: current Drinks per week: 3 Substance use: never Substance use type: does not use Do You Feel Safe in your Home?: Yes Lack of Transportation: No Lack of Food: Never True Current Housing: I Have Housing Concerned About Future Housing: No Difficulty Paying Gas/Electric Bills: No Difficulty Paying for Meds: No Currently Unemployed: No Education: High School Diploma/GED Difficulty w/ Childcare or Family Care: No Living arrangements: with family Additional living arrangements comments: The patient lives with his in [place]. 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 Spiritual care concerns: No Meds Home Medications and Allergies Home Medications ?Medication ?Instructions ?Recorded ?Confirmed ?Type losartan 50 mg tablet 50 mg PO DAILY 03/02/21 12/26/24 History montelukast 10 mg tablet 10 mg PO DAILY 03/02/21 12/26/24 History pravastatin 80 mg tablet 80 mg PO DAILY 03/02/21 12/26/24 History cholecalciferol (vitamin D3) 25 25 mcg PO DAILY 03/29/21 12/26/24 History mcg (1,000 unit) capsule (Vitamin D3) cyanocobalamin (vitamin B-12) 100 2,000 mcg PO DAILY 03/29/21 12/26/24 History mcg tablet albuterol sulfate 90 mcg/actuation 1 inh inhalation QID PRN shortness 05/02/21 12/26/24 Rx aerosol inhaler of breath or wheezing #8.5 grams dorzolamide 22.3 mg-timolol 6.8 1 drp LEFT EYE TID 06/29/24 12/26/24 History mg/mL eye drops budesonide-formoterol HFA 80 2 puff inhalation Q12H 12/26/24 12/26/24 History mcg-4.5 mcg/actuation aerosol inhaler gabapentin 300 mg capsule 300 mg PO DAILY 12/26/24 12/26/24 History prednisolone acetate 1 % eye 1 drp LEFT EYE TID 12/26/24 12/26/24 History drops,suspension sodium chloride 1,000 mg soluble 1,000 mg PO TID 12/26/24 12/26/24 History tablet amoxicillin 875 mg-potassium 1 tablet PO Q12H #8 tabs 12/27/24 Rx clavulanate 125 mg tablet azithromycin 250 mg tablet 250 mg PO DAILY #4 tabs 12/27/24 Rx (Zithromax) chlorpromazine 25 mg tablet 25 mg PO Q6H PRN Hiccups #30 tabs 12/27/24 Rx metoclopramide HCl 10 mg tablet 10 mg PO Q6H PRN nausea and 12/27/24 Rx vomiting #30 tabs pantoprazole 40 mg tablet,delayed 40 mg PO BID 30 days #60 tabs 12/27/24 Rx release Allergies Allergy/AdvReac Type Severity Reaction Status Date / Time No Known Allergies Allergy Verified 12/21/24 14:54 Vital Signs Vital Signs Temp Pulse Resp BP Pulse Ox O2 Del Method 12/26/24 14:00 76 12/26/24 12:00 71 12/26/24 11:57 98.6 F 67 22 H 150/61 H 98 12/26/24 10:00 67 12/26/24 09:31 97 Room Air 12/26/24 09:15 98.6 F 60 20 154/70 H 97 12/26/24 08:23 71 25 H 158/69 H 97 12/26/24 07:17 99 F 72 22 H 168/79 H 98 12/26/24 07:15 67 28 H 97 12/26/24 06:47 74 22 H 167/82 H 97 12/26/24 06:31 71 22 H 158/74 H 97 Exam 2 Narrative: GENERAL APPEARANCE: well developed well nourished male in no acute distress HEENT: normocephalic, atraumatic, noted right eye enucleation with cloudy left cornea; nares patient NECK: no lymphadenopathy, thyromegaly, or JVD MOUTH: normal lips, teeth, and gums CARDIOVASCULAR: RRR, normal S1 and S2, no rub detected RESPIRATORY: coarse breath sounds - L>R ABDOMEN: soft, nontender, nondistended, positive bowel sounds present EXTREMITIES: no evidence of cyanosis, clubbing, or edema NEUROLOGICAL: alert and oriented x 3; CN II - XII intact bilaterally; no focal deficits noted Results Lab Results 12/27/24 05:13 12/27/24 05:13 Lab results: Most recent lab results Calcium 8.9 mg/dL (8.4-10.2) 12/26/24 06:38 Phosphorus 3.0 mg/dL (2.5-4.5) 12/26/24 06:38 Phosphorus Cancelled 12/26/24 06:38 Magnesium 1.6 mg/dL (1.6-2.3) 12/26/24 06:38 Magnesium Cancelled 12/26/24 06:38 Urine Creatinine 6.4 mg/dL 12/26/24 10:15
[2024-12-26 14:44] LABS: Sodium 128 mmol/L (137-145)
--- NOTE | 2024-12-26 21:15 | PC.NURSE ---
This patient, Mark Hines, was transferred to [ 300] on 12/26/24 at 2115. Personal belongings sent with patient. Report given to [ Cassi SHEN]. Appropriate documentation sent with patient.
[2024-12-27 03:55] VITALS: BP 147/61; PULSE 81; RESP 20; TEMP 36.9; O2SAT 96
[2024-12-27 06:53] LABS: Basophils Percent Auto 0.2 % (0.2-1.2); Eosinophils Percent Auto 0.3 % (0-4.4); Hematocrit 36.4 % (42.0-52.0); Immature Granulocyte Absolute 0.06 K/mm3 (0.00-0.031); Immature Granulocyte Percent A 0.5 % (0-0.5); Lymphocytes Absolute Auto 0.94 K/mm3 (0.9-3.2); Lymphocytes Percent Auto 8.1 % (18.3-44.2); Mean Corpuscular Volume 87.9 fl (80-100); Mean Platelet Volume 11.9 fl (7.4-10.4); Monocytes Absolute Auto 0.6 K/mm3 (0.1-0.6); Monocytes Percent Auto 4.7 % (2.6-8.5); Neutrophils Percent Auto 86.2 % (45.5-73.1); Platelet Count Result 252 k/mm3 (150-375); Red Blood Count 4.14 M/mm3 (4.6-6.20); Red Cell Distribution Width 13.4 % (11.5-14.5); White Blood Count 11.6 K/mm3 (4.5-10.0)
[2024-12-27 06:58] LABS: Albumin Level 4.1 g/dL (3.5-5.1); Anion Gap 10 mmol/L (4-12); Blood Urea Nitrogen 7 mg/dL (9-20); Calcium 9.3 mg/dL (8.4-10.2); Carbon Dioxide 27 mmol/L (22-30); Chloride 96 mmol/L (98-107); Estimated CRCL calculation 86 ml/min; Estimated Glomerular Filt Rate > 60; Glucose 116 mg/dL (65-110); Phosphorus 3.5 mg/dL (2.5-4.5); Potassium 4.1 mmol/L (3.4-5.0); Sodium 133 mmol/L (137-145)
[2024-12-27] MEDS: MONTELUKAST SODIUM 10 MG TABLET PO (08:05)
[2024-12-27] MEDS: GABAPENTIN 300 MG CAPSULE PO (08:05)
[2024-12-27] MEDS: LOSARTAN POTASSIUM 50 MG TABLET PO (08:05)
[2024-12-27] MEDS: CYANOCOBALAMIN 1,000 MCG TABLET 2000 MCG PO (08:05)
[2024-12-27] MEDS: CHOLECALCIFEROL 1,000 UNITS TABLET 1000 UNITS PO (08:05)
[2024-12-27] MEDS: AZITHROMYCIN 250 MG TABLET PO (08:05)
[2024-12-27] MEDS: SODIUM CHLORIDE 1 GM TABLET PO ×3 (08:06→17:23)
[2024-12-27] MEDS: PRAVASTATIN SODIUM 20 MG TABLET 80 MG PO (08:06)
[2024-12-27] MEDS: PANTOPRAZOLE 40 MG TABLET PO (08:06)
[2024-12-27] MEDS: ENOXAPARIN 40 MG/0.4 ML SYRINGE SUB-Q (08:06)
[2024-12-27] MEDS: FLUTICASONE/SALMETEROL 45-21 MCG INHALER 1 PUFF 2 PUFF INHALATION (08:14)
[2024-12-27 08:16] VITALS: O2SAT 95
[2024-12-27 08:17] VITALS: PULSE 67; RESP 20
[2024-12-27] MEDS: DORZOLAMIDE/TIMOLOL OPHTH SOL 10 ML BOTTLE 1 DROP LEFT EYE ×2 (08:42→12:10)
[2024-12-27] MEDS: prednisoLONE ACETATE 1% OPHTH 5 ML 1 DROP LEFT EYE ×2 (08:42→12:10)
[2024-12-27 08:52] LABS: Protein, Total 6.7 g/dL (6.1-8.1)
[2024-12-27] MEDS: chlorproMAZINE HCL 25 MG TABLET PO (10:57)
[2024-12-27] MEDS: HALOPERIDOL 1 MG TABLET 2 MG PO (12:21)
[2024-12-27 14:00] VITALS: BP 105/62; PULSE 85; RESP 20; TEMP 36.9; O2SAT 97
[2024-12-27 15:04] LABS: Kappa\\Lambda Light Chains 1.09 (0.26-1.65); Lambda Light Chain 31.7 mg/L (5.7-26.3)
--- NOTE | 2024-12-27 15:10 | P.DS_ITS ---
DS: Admitting Diagnosis Discharge Date 12/27/2024 Admitting Diagnosis Hyponatremia/intractable hiccups DS: Discharge Diagnosis Discharge Diagnosis (1) Hyponatremia: Code(s): E87.1 - Hypo-osmolality and hyponatremia Status: Acute (2) Pneumonia: Code(s): J18.9 - Pneumonia, unspecified organism Status: Acute (3) Gallbladder polyp: Code(s): K82.4 - Cholesterolosis of gallbladder Status: Acute (4) Chronic hiccups: Code(s): R06.6 - Hiccough Status: Chronic (5) Chronic obstructive pulmonary disease: Code(s): J44.9 - Chronic obstructive pulmonary disease, unspecified Status: Chronic (6) Hypertension: Code(s): I10 - Essential (primary) hypertension Status: Chronic DS: Summary Hospital Course Reason for hospitalization: Hyponatremia/intractable hiccups Hospital Course: In the ED: Vital signs were stable on arrival with blood pressures being a bit high. Labs were significant for WBC count of 15.3, hemoglobin 11.6, sodium 119, chloride 84, BUN less than 2, creatinine 0.60, proBNP a 61. Urine specimen was dilute and the lab was unable to run a urine sodium CT of the chest, abdomen, and pelvis showed mild patchy airspace opacity in the left lower lobe and lingula suspicious for pneumonia, small sliding type hiatal hernia with fluid in mild wall thickening in the distal esophagus, and 1.2 cm soft tissue density at the fundus of the gallbladder. Abdominal ultrasound showed multiple small cysts in the liver and the gallbladder polyp versus mass versus noncalcified stone measuring 1 x 1.1 x 1.1 cm. He is being admitted in this setting for close monitoring and nephrology consultation given the hyponatremia. Admission: Patient was a pleasant 64-year-old male with chronic obstructive pulmonary disease, hypertension, hyperlipidemia, chronic hiccups, and glaucoma who presented to the emergency department with concerns for low sodium. The patient has had issues with intermittent hyponatremia over the years and it has been more chronic over the last 6 months with sodiums ranging from 122 to 131. He takes sodium chloride tablets 3 times a day which are prescribed by his primary care provider. His chronic hiccups have been worse over the past week and are now pretty constant. Last night he admits to did consuming a large amount of fluid to try to help his hiccups and he estimates that he drank ?a good couple o f gallons of water? in addition to two large bottles of Gatorade and 10 cans of orange soda. Not long thereafter he began to feel weak, lightheaded, and dizzy and he came in for evaluation. Later on in the evening he developed nausea and reports having numerous episodes of emesis and he did not sleep well at all last night. He has been coughing a bit since that time though it is not productive. He denies syncope, headache, confusion, shortness of breath, chest pain, abdominal pain, hematemesis, diarrhea, dysuria, and edema. Hospital Course: Patient with history hyponatremia resumed his sodium tablets placed on fluid restriction with overall improvement to his hyponatremia to 133 will also seen by Nephrology. Patient continued chronic hiccups which he attributes to his severe consumption oral hydration likely leading to his hyponatremia. Patient had not been taking his Thorazine outpatient resumed and provided prescription at discharge has okay if 1 dose Haldol with improvement to his hiccups. Patient status IV ceftriaxone for possible pneumonia he remained on room air no need for supplemental oxygen afebrile and return 11.6. A temp of discharge patient was seen reported in no acute distress and no new complaints he was discharged back home on oral antibiotic coverage for CAP. Also refilled his Thorazine and recommended follow-up with GI outpatient he also need continued serial studies for close monitoring of small cysts in the liver and the gallbladder polyp versus mass versus noncalcified stone measuring 1 x 1.1 x 1.1 cm. Patient acknowledged agreed discharge plan was discharged to home. Status at Discharge Functional status at discharge: independent ambulation Overall status at discharge: patient is progressing back to baseline Time Spent with Patient Time attestation: Total time spent providing and/or coordinating discharge services: Time spent: Greater than 30 minutes DS: Data Data Completed and Pending Labs on day of discharge: Labs from last 24 hours 12/27/24 12/26/24 12/26/24 05:13 10:15 10:01 WBC 11.6 H RBC 4.14 L Hgb 12.0 L Hct 36.4 L MCV 87.9 MCH 29.0 MCHC 33.0 RDW 13.4 Plt Count 252 MPV 11.9 H Immature Gran % (Auto) 0.5 Neut % (Auto) 86.2 H Lymph % (Auto) 8.1 L [place] % (Auto) 4.7 Eos % (Auto) 0.3 Baso % (Auto) 0.2 Lymph # (Auto) 0.94 [place] # (Auto) 0.6 Eos # (Auto) 0.0 Baso # (Auto) 0.0 Abs Immat Gran (auto) 0.06 H Absolute Neuts (auto) 10.0 H Absolute Nucleated RBC 0.000 Nucleated RBC % 0.0 Sodium 133 L Potassium 4.1 Chloride 96 L Carbon Dioxide 27 Anion Gap 10 BUN 7 L D Creatinine 0.74 Estim Creat Clear Calc 86 Estimated GFR > 60 Glucose 116 H Serum Osmolality 271 L Calcium 9.3 Phosphorus 3.5 Total Protein 6.7 Albumin 4.1 [place]/Lambda Ratio 1.09 Free [place] Light Chains 34.6 H Free Lambda Light Chain 31.7 H Ur L.pneumophila Ag Pending Mycoplasma pneumon IgM Pending Urine Pneumococcal Ag Pending Discharge Plan Discharge Attending physician on discharge: Jeremías Lee Consulting providers: Marla Lopez; Mika Lopez; Shalonda Sebastian; David Claros; Ishaan Flowers Discharging Clinician: Barb Eaton Anticipated Discharge Date/Time: 12/27/24 14:59 Patient Disposition: Home Activity: may shower and as tolerated Diet: low fat Discharge Instructions: Hyponatremia * Resume taking your sodium bicarb tablets as prescribed * Recommend fluid restriction 2000ML of fluids per day * Follow-up with primary care for close monitoring of sodium levels outpatient Intractable hiccups * I have prescribed Thorazine take up to 4 times daily as needed Pneumonia * Prescribed oral antibiotic please take as prescribed An Abdominal ultrasound showed multiple small cysts in the liver and the gallbladder polyp versus mass versus noncalcified stone measuring 1 x 1.1 x 1.1 cm. Please have primary continue to follow-up outpatient with serial imaging. How can you care for yourself at home? ? Keep track of any new symptoms or changes in your symptoms. ? Rest until you feel better. ? Be safe with medicines. Take your medicines exactly as prescribed. Call your doctor if you think you are having a problem with your medicine. ? Do not drive after taking a prescription pain medicine. ? Ensure to follow-up with primary care physician as indicated and provide updated medication list provided to you at discharge. When should you call for help? Call 911 anytime you think you may need emergency care. For example, call if: ? You passed out (lost consciousness). Call your doctor now or seek immediate medical care if: ? You have new symptoms like fever, difficulty breathing, Chest pain, vomiting, or rash. ? You have new or different pain. ? You are confused and are having trouble thinking clearly. ? Your symptoms are getting worse. Watch closely for changes in your health, and be sure to contact your doctor if: ? You do not get better as expected. Patient Instructions: Antibiotic Form, Hyponatremia (DC), Hiccups (DC), Community Acquired Pneumonia (DC) Patient Language: Thai Stand Alone Forms: General Discharge Information Follow-up/Referrals: Celine,TRAVIS Lawler [Primary Care Provider] - 2 Weeks Discharge Medications: New azithromycin [Zithromax] 250 mg Tablet 250 mg PO DAILY Qty: 4 0RF chlorpromazine 25 mg Tablet 25 mg PO Q6H PRN (Reason: Hiccups) Qty: 30 0RF amoxicillin-pot clavulanate 875-125 mg tablet 1 tablet PO Q12H Qty: 8 0RF Continued losartan 50 mg tablet 50 mg PO DAILY pravastatin 80 mg tablet 80 mg PO DAILY montelukast 10 mg tablet 10 mg PO DAILY albuterol sulfate 90 mcg/actuation HFA aerosol inhaler 1 inh inhalation QID PRN (Reason: shortness of breath or wheezing) Qty: 8.5 0RF dorzolamide-timolol 22.3-6.8 mg/mL drops 1 drp LEFT EYE TID gabapentin 300 mg capsule 300 mg PO DAILY sodium chloride 1,000 mg tablet,soluble 1,000 mg PO TID prednisolone acetate 1 % drops,suspension 1 drp LEFT EYE TID budesonide-formoterol 80-4.5 mcg/actuation HFA aerosol inhaler 2 puff INHALATION Q12H pantoprazole 40 mg tablet,delayed release (DR/EC) 40 mg PO BID 30 Days Qty: 60 5RF metoclopramide HCl 10 mg tablet 10 mg PO Q6H PRN (Reason: nausea and vomiting) Qty: 30 0RF cyanocobalamin (vitamin B-12) 100 mcg Tablet 2,000 mcg PO DAILY cholecalciferol (vitamin D3) [Vitamin D3] 25 mcg (1,000 unit) Capsule 25 mcg PO DAILY Date of admission: 12/26/24 13:28 Primary Care Provider: Celine,Nuris Admitting Provider: Jaxon Vega Attending physician on admission: Barb Eaton Condition: Stable Quality VTE Prophylaxis VTE prophylaxis: pharmacologic ordered -Patient's previous records reviewed on admission -ER notes reviewed in detail on admission -discussed all findings and current treatment plan with patient/Family/POA -Consultations reviewed for recommendations -Patient's disposition for safe discharge discussed with window caser Dictation performed by [employer] direct speech recognition software, therefore machine fitter variants and typographical errors may occur. Hospitalist MIPS Heart Failure (Exclusion) Patient has history of Heart Transplant or Left Ventricular Assistive Device?: No IF YES, STOP HERE Heart Failure (Qualifier) Patient has current or prior documentation of LVEF less than or equal to 40%, or mod/servere depressed LVSF?: No IF NO, STOP HERE
[2024-12-27 21:04] LABS: Albumin 3.6 g/dL (3.8-4.8); Alpha 1 Globulin 0.4 g/dL (0.2-0.3); Alpha 2 Globulin 1.1 g/dL (0.5-0.9); Beta 1 Globulin 0.4 g/dL (0.4-0.6); Gamma Globulin 0.8 g/dL (0.8-1.7)
[2024-12-28 10:03] LABS: Osmolality, Urine <50 mOsm/kg (50-1200)
[2024-12-29 15:02] LABS: Pneumococcal Antigen Urine NOT DETECTED
[2024-12-29 16:39] LABS: Mycoplasma IgM Antibody Titer 437 U/mL
[2024-12-29 19:29] LABS: Legionella pneumophila Ag Ur NOT DETECTED
== END 2024-12-27 17:30 | disposition home or self-care (01) | DRG 194 ==
LOC: ANHED 08:25 → ANHIMU 08:47 → ANH3MEDSUR 21:08
PROVIDERS: Internal Medicine Nephrology; Physician Assistant; Preventive Medicine Aerospace Medicine; Admitting Provider General Practice; Emergency Provider Student in an Organized Health Care Education/Training Program; PCP Physician Assistant; Visit Provider Nurse Practitioner Family
DX: J18.9 Pneumonia, unspecified organism (principal); E87.1 Hypo-osmolality and hyponatremia; J44.0 Chronic obstructive pulmonary disease with (acute) lower respiratory infection; E78.5 Hyperlipidemia, unspecified; H40.9 Unspecified glaucoma; I10 Essential (primary) hypertension; K44.9 Diaphragmatic hernia without obstruction or gangrene; K82.4 Cholesterolosis of gallbladder; R06.6 Hiccough; Z87.891 Personal history of nicotine dependence; Z20.822 Contact with and (suspected) exposure to COVID-19
CPT/HCPCS: 36415; 71045; 71260; 74177; 76705; 80053; 80061; 80069; 81003; 81050; 82533; 82570; 83690; 83735; 83880; 83883; 83930; 83935; 84100; 84155; 84156; 84165; 84295; 84300; 84443; 84484; 84540; 84550; 85025; 85610; 85730; 86738; 87449; 87637; 87899; 93005; 94640; 96365; 96375; 99285; A9270; G0378; J0696; J1650; Q9967

== ENCOUNTER 2025-01-10 18:20 | Observation (INO) | payer MEDICARE, SELFPAY ==
[2025-01-10] VITALS (7 sets, daily range): BP systolic 144–176; BP diastolic 61–79; PULSE 83–92; RESP 19–20; TEMP 36.6–36.8; O2SAT 96–99; BMI 23.8
--- OUTSIDE RECORDS SUMMARY | 2025-01-10 18:22 | XMS_ITS | Clinical Summary ---
Author Organization [facility] Address [facility] [place] [address] Care Team Providers Care Traffic Control Operator Name Role Phone Nuris Berger Primary Care Provider [phone] Allergies No known active allergies Medications albuterol [...] montelukast 10 MG tablet 1 Active Immunizations Immunization Administration Dates Next Due Influenza (Generic) 07/29/2020 [...] Comments Blood Pressure 120/62 09/04/2021 8:52 AM HISTOLOGY TECHNICIAN Pulse 82 09/04/2021 8:52 AM HISTOLOGY TECHNICIAN Temperature 36.3 C (97.4 F) 09/04/2021 8:52 AM HISTOLOGY TECHNICIAN Respiratory Rate 16 09/04/2021 8:52 AM HISTOLOGY TECHNICIAN Oxygen Saturation 97% 09/04/2021 8:52 AM HISTOLOGY TECHNICIAN Inhaled Oxygen Concentration - - Weight 64.4 kg (142 lb) 09/04/2021 8:52 AM HISTOLOGY TECHNICIAN Height 172.7 cm (5' 8 ) 09/04/2021 8:52 AM HISTOLOGY TECHNICIAN Body Mass Index 21.59 09/04/2021 8:52 AM HISTOLOGY TECHNICIAN Plan of Treatment Health Maintenance Due Date Last Done Comments Colorectal Cancer Screening Colonoscopy (10 Years) 1961 Annual Physical 1964 Hepatitis C 1979 DTaP, Tdap and Td Vaccines ( 1 - Tdap) 1980 Pneumococcal Vaccine: 50+ Years (1 of 2 - PCV) 1980 Zoster Vaccines (1 of 2) 2011 [...] complete this topic Insurance AETNA Care Teams Traffic Control Operator Relationship Specialty Start Date End Date Nuris Berger PA [address] [place], [place] [id number] PCP - General PHYSICIAN SUPERVISOR [employer] 06/09/21
--- OUTSIDE RECORDS SUMMARY | 2025-01-10 18:22 | XMS_ITS | Clinical Summary ---
Author Organization [facility] [employer] Address [address] [place] [address] Care Team Providers Care Window Shade Installer Name Role Phone Nuris Berger PA-C Primary Care Provider [phone] Source Comments [facility] [employer],non-owned Affiliates and Associated Physician Practices is amultiple site organization consisting of ambulatory clinics and hospital sitesin [place], [place], [place] and [place]. This disclosure is being madepursuant to the Care Everywhere program and may not contain all information available regarding this patient. Last updated 18.[facility] [employer] Allergies Active Allergy Reactions Criticality Noted Date Comments Chlorpromazine Other Low 12/02/2023 Neurology consult during his 12/02/2023 hospitalization states the facial twitching is NOT consistent with Tardive Dyskinesia so ok to use Thorazine prn for the chronic intractable hiccups Medications * Be aware that medications may not be up to date on this document. Alwaysverify current medications with the patient. cetirizine (ZYRTEC) 10 MG tablet Take 10 mg by mouth daily. 03/27/2021 Active albuterol HFA (PROVENTIL; VENTOLIN; PROAIR) 108 (90 Base) MCG/ACT inhaler Inhale 2 puffs into the lungs. 10/03/2020 Active budesonide-form oterol (SYMBICORT) 160-4.5 MCG/ACT inhaler Inhale 2 puffs into the lungs 2 (two) times daily. Active vitamin D3 (CHOLECALCIFERO L) (25 MCG) 1000 UNIT capsule 1,000 Units [...] AFTER USE. DO NOT SWALLOW 04/16/2023 Active hydroCHLOROthia zide (Microzide) 12.5 MG capsule Take 1 (one) capsule by mouth once daily Active acetaZOLAMIDE (Diamox) 250 MG tablet Take 1 (one) tablet by mouth 4 times daily 20 tablet 06/17/2023 Active ergocalciferol (Drisdol) 1.25 MG (63871 UT) capsule Take 1 (one) capsule by [...] times daily 15 mL 11 01/18/2024 Active tobramycin-dexA METHasone (Tobradex) 0.3-0.1 % ophthalmic suspension Instill 1 (one) drop into left eye at bedtime 10 mL 11 01/24/2024 Active dorzolamide-jose olol (Cosopt) 2-0.5 % ophthalmic solution Instill 1 (one) drop into left eye 3 times daily 10 mL 11 07/21/2024 Active trimethoprim-po lymyxin B (Polytrim) 62814-6.1 UNIT/ML-% ophthalmic solution Instill 1 (one) drop into left eye once daily 10 mL 11 09/18/2024 Active Active Problems Problem Noted Date Diagnosed Date [...] Reviewed options for assistance with cessation. Reviewed silk brusher sequela associated with smoking. Pt declines assistance [...] polyp 05/20/2019 Overview (12/24/2020): Colonoscopy 01/29/2012 at [facility]--->2021 Last Assessment & Plan: Recvd [...] Description 12/13/2024 9:15 AM CDT Office Visit [facility] - Ophthalmology [address] [place] [phone] Louis Hansen MD H/O cornea transplant (Primary Dx); Pseudophakia 12/13/2024 Travel 12/01/2024 8:30 AM CDT Clinical Support [facility] - Ophthalmology [address] [place] [phone] Tyrel Velez MD 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 (Primary Dx) 12/01/2024 8:25 AM CDT Clinical Support [facility] - Ophthalmology [address] [place] [phone] Tyrel Velez MD 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 (Primary Dx) 12/01/2024 8:20 AM CDT Office Visit [facility] - Ophthalmology [address] [place] [phone] Tyrel Velez MD 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 (Primary Dx); H/O cornea transplant; Central corneal opacity, left 12/01/2024 8:15 AM CDT Clinical Support [facility] - Ophthalmology [address] [place] [phone] Tyrel Velez MD 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 (Primary Dx) 12/01/2024 Travel from Last 3 Months Immunizations Immunization Administration Dates Next Due ChoozOn (d.b.a. Blue Kangaroo) primary monoval ent 12+ yr 0.3mL Purple [...] at Not on file Legal Sex Male 5:54 PM CDT Gender Identity Not on file Sexual Orientation Not on file Last Filed Vital Signs Vital Sign Reading Time Taken Comments Blood Pressure 128/70 08/26/2023 12:43 PM WOOD MACHINIST Pulse 65 08/26/2023 12:43 PM WOOD MACHINIST Temperature 35.9 C (96.7 F) 08/26/2023 12:34 PM WOOD MACHINIST Respiratory Rate 14 08/26/2023 12:43 PM WOOD MACHINIST Oxygen Saturation 98% 08/26/2023 12:34 PM WOOD MACHINIST Inhaled Oxygen Concentration - - Weight 64.9 kg (143 lb) 08/26/2023 9:01 AM WOOD MACHINIST Height 172.7 cm (5' 8 ) 08/26/2023 9:01 AM WOOD MACHINIST Body Mass Index 21.74 08/26/2023 9:01 AM WOOD MACHINIST Plan of Treatment Upcoming Encounters Date Type Department Care Team (Late st Contact Info) Description 04/18/2025 9:15 AM CDT Office Visit [facility] - Ophthalmology [address] [place] [phone] Louis Hansen MD [address] [place] [address] [place] [phone] 08/07/2025 8:40 AM WOOD MACHINIST Office Visit [facility] - Ophthalmology [address] [place] [phone] Tyrel Velez MD [address] [place] [phone] Health Maintenance Due Date Last Done Comments [...] 1-dose series) 2021 COVID-19 VACCINE (3 - 2023- season) 2024 02/09/2021, 01/05/2021 DEPRESSION SCREENING 09/20/2024 [...] this topic Medical Devices Implanted Type Area Manifest/Order Organizer Print Orders Device Identifier Shelf Expiration Date Model / Serial / Lot Drain Glcm Thk.9mm Blnt Tpr [facility] Flxb - [id number] Implanted:Qty: 1 on 05/04/2018 by Tyrel Velez MD at [facility] Left: Eye [facility] 03/15/2020 7 / [id number] / [id number] Graft Tissue Ttplst Sclr .8x.5cm Lopro - [id number] Implanted:Qty: 1 on 05/04/2018 by Tyrel Velez MD at [facility] Left: Eye [employer] 01/17/2023 [id number] / [id number] / [id number] Impl Opth 250sq Mm Brvldt Magaly 1 Qdrnt - [id number] Implanted:Qty: 1 on 06/16/2023 by Tyrel Velez MD at [facility] Left: Eye [employer] 01/09/2024 [id number] / [id number] / Graft Tissue Ttpl Ioptch Sclr .8x.5cm - [id number] Implanted:Qty: 1 on 06/16/2023 by Tyrel Velez MD at [facility] Left: Eye [employer] 09/19/2027 [id number] / [id number] / Graft Tissue Ttpl Ioptch Sclr .8x.5cm - [id number] Implanted:Qty: 1 on 06/16/2023 by Tyrel Velez MD at [facility] Left: Eye [employer] 09/19/2027 [id number] / [id number] / J Luis Cornea - [id number] Implanted:Qty: 1 on 08/26/2023 by Louis Hansen MD at [facility] Left: Eye [employer] [facility] 09/05/2023 [id number] / [id number] / [id number] Description:Product Numb:[id number] EXP:09-05-2023 DIN:[id number] Insurance AETNA MEDICARE ADV AETNA Advance Directives * Full Code (Latest Code Status on File) Date Activated Date Inactivated Comments 05/04/2018 11:35 AM 05/04/2018 1:21 PM * Full Code Date Activated Date Inactivated Comments 05/04/2018 7:43 AM 05/04/2018 11:35 AM Care Teams Window Shade Installer Relationship Specialty Start Date End Date Nuris Berger PA-C PCP - General 02/13/20
--- OUTSIDE RECORDS SUMMARY | 2025-01-10 18:22 | XMS_ITS | Encounter Summary ---
Author Organization [facility] Healthcare Address [address] [place] [address] Care Team Providers Care Music Cataloguer Name Role Phone Nuris Berger Primary Care Provider [phone] Jonatan Stokes MD Unavailable [phone] Irma Bajwa MD Unavailable [phone] Encounter Details Date Type Department Care Team (Late st Contact Info) Description 06/28/2024 Orders Only [facility] Information Management [address] [place] [address] Scanning, Provider Social History Tobacco Use Types Packs/Day Years Used Date Smoking Tobacco: Former Cigarettes 0.8 40 0 09/1981 - 09/2021 Smokeless Tobacco: Never Alcohol Use Standard Drinks/Week Comments Yes 0 (1 standard drink = 0.6 oz pur e alcohol) social [facility] Utilities Answer Date Recorded In the past 12 months has [employer], gas, oil, or water [employer] threatened to shut off services in [...] week 12/03/2023 How often do you attend [facility] or worship services? Patient declined 12/03/2023 Do you belong to any clubs o r organizations such as islam groups, unions, fraternal or athletic groups, or [...] place to sleep or slept in a residential (including now)? No 12/03/2023 Personal Safety Answer Date Recorded Have you ever been in or are you currently in a harmful physical or emotional relationship or is someone making you feel afraid or unsafe? Denies 01/17/2024 Sex and Gender Information Value Date Recorded Sex Assigned at Not on file Legal Sex Male 12:22 AM SALES ORDER PROCESSOR Gender Identity Not on file Sexual Orientation [...] on filedocumented in this encounter Care Teams Music Cataloguer Relationship Specialty Start Date End Date Nuris Berger PA [address] [place] [address] PCP - General Internal Medicine 12/28/18 Jonatan Stokes MD [address] [place] [address] Consulting Physician Otolaryngology 03/27/20 Irma Bajwa MD [address] [place] [address] [place] [address] Consulting Physician Neurology 05/07/22 documented as of this encounter
--- OUTSIDE RECORDS SUMMARY | 2025-01-10 18:22 | XMS_ITS | Referral Summary ---
Author Organization [facility] [address] [facility] Address [address] [place] [address] Care Team Providers Care Check Embosser Name Role Phone Nuris Berger Primary Care Provider [phone] Jonatan Stokes MD Unavailable [phone] Irma Bajwa MD Unavailable [phone] Encounters Date Type Department Care Team Description 12/29/2024 DEBBIE IP Outreach [facility] Accountable Care Organization [address] [place] [id number] Anahi Phipps MA 12/27/[address] [place] [phone] Nuris Berger PA 12/26/[address] [place] [phone] Nuris Berger PA 12/06/2024 9:30 AM CDT Office Visit [facility] Pulmonology [address] [place] [address] [place] [phone] Tasia Hoffman MD Chronic obstructive pulmonary disease, unspecified COPD type (HCC) (Primary Dx); Mild persistent asthma without complication; Non-seasonal allergic rhinitis due to other allergic trigger; Nicotine dependence, cigarettes, in remission 10/30/2024 9:00 AM FACILITY EXAMINER Office Visit [facility] [address] [facility] [address] [place] [address] Nuris Berger PA Annual physical exam (Primary Dx); Vitamin D deficiency; Mixed hyperlipidemia; Pre-diabetes; Chronic obstructive pulmonary disease, unspecified COPD type (HCC); Gastroesophageal reflux disease with esophagitis without hemorrhage; Chronic hiccups; BMI 23.0-23.9, adult from Last 3 Months Allergies Active Allergy Reactions Criticality Noted Date Comments Chlorpromazine Other (See comments) Low 12/02/2023 Neurology consult during his 12/02/2023 hospitalization states the facial twitching is NOT consistent with Tardive Dyskinesia so ok to use Thorazine prn for the chronic intractable hiccups Medications albuterol HFA (PROVENTIL HFA,VENTOLIN HFA,PROAIR HFA) 90 mcg/actuation inhalerIndicatio ns:Chronic obstructive pulmonary disease, unspecified COPD type (HCC),Uncomplica johnny asthma, unspecified asthma severity, unspecified whether persistent Inhale 2 puffs every 6 (six) hours as needed for wheezing or shortness of breath 1 each 6 3 Active cyanocobalamin (Vitamin B-12) 100 mcg tablet Take 1 tablet (100 mcg total) by mouth daily Active dorzolamide-jamey loL (COSOPT) 22.3-6.8 mg/mL ophthalmic solution INSTILL 1 DROP IN LEFT EYE THREE TIMES DAILY Active neomycin-polymyx in-dexAMETHasone (MAXITROL) 3.5mg/mL-10,000 unit/mL-0.1 % ophthalmic suspension SHAKE LIQUID AND INSTILL 1 DROP IN RIGHT EYE TWICE DAILY NEEDED 3 Active cholecalciferol (VITAMIN D-3) 25 mcg (1,000 unit) tablet Take 1 tablet (1,000 Units total) by mouth daily 4 Active aspirin 81 mg enteric coated tablet Take 1 tablet (81 mg total) by mouth daily 4 06/20/20 25 Active tobramycin-dexAM ETHasone (TOBRADEX) ophthalmic solution INSTILL 1 DROP LEFT EYE EVERY NIGHT AT BEDTIME 4 Active prednisoLONE acetate (PRED FORTE) 1 % ophthalmic suspension 4 Active polymyxin B-trimethoprim (POLYTRIM) ophthalmic solution INSTILL 1 DROP IN LEFT EYE FOUR TIMES DAILY 4 Active montelukast (SINGULAIR) 10 mg tabletIndication s:Uncomplicated asthma, unspecified asthma severity, unspecified whether persistent TAKE 1 TABLET(10 MG) BY MOUTH EVERY NIGHT 90 tablet 2 4 Active losartan (COZAAR) 50 mg tablet TAKE 1 TABLET(50 MG) BY MOUTH DAILY 90 tablet 1 4 Active budesonide-formo teroL (SYMBICORT) 80-4.5 mcg/actuation inhalerIndicatio ns:Mild persistent asthma without complication,Chr onic obstructive pulmonary disease, unspecified COPD type (HCC) INHALE 2 PUFFS BY MOUTH TWICE DAILY. RINSE MOUTH WITH WATER AFTER USE. DO NOT SWALLOW 30.6 g 1 4 Active gabapentin (NEURONTIN) 300 mg capsuleIndicatio ns:Chronic hiccups TAKE 1 CAPSULE(300 MG) BY MOUTH THREE TIMES DAILY 300 capsule 5 Active pravastatin (PRAVACHOL) 80 mg tablet Take 1 tablet (80 mg total) by mouth daily 90 tablet 1 5 Active metoclopramide (REGLAN) 10 mg tablet Take 1 tablet (10 mg total) by mouth 4 (four) times a day 120 tablet 2 5 Active sodium chloride 1 gram tablet Take 1 tablet (1 g total) by mouth 3 (three) times a day 90 tablet 3 5 Active baclofen (LIORESAL) 10 mg tabletIndication s:Low back pain, unspecified back pain laterality, unspecified chronicity, unspecified whether sciatica present TAKE 1 TABLET(10 MG) BY MOUTH TWICE DAILY 60 tablet [address] (PROTONIX) 40 mg EC tablet Take 1 tablet (40 mg total) by mouth daily 90 tablet 2 5 Active Active Problems Patient Care Coordination No te Formatting of this note migh t be different from the original. CAD for BIC Problem Noted Date Diagnosed Date Annual physical exam 11/19/2024 Assessment & Plan (11/19/2024 11:45 PM FACILITY EXAMINER): Encouraged healthy lifestyle, good nutrition and exercise. Encouraged Calcium and Vitamin D and weight bearing exercise for bone health. Reviewed immunizations Reviewed age appropirate screenings. BMI 23.0-23.9, adult 06/20/2024 Assessment & Plan (10/30/2024 8:57 AM FACILITY EXAMINER): Weight/BMI is in healthy range. Continue healthy lifestyle to maintain. Assessment & Plan (06/20/2024 7:44 AM CDT): Weight/BMI is in healthy range. Continue healthy lifestyle to maintain. Vitamin D deficiency 11/24/2023 Assessment & Plan (11/19/2024 11:45 PM FACILITY EXAMINER): Supplement Assessment & Plan (05/20/2024 7:36 PM CDT): Supplement Fatigue 12/12/2022 Assessment & Plan (05/20/2024 7:37 PM CDT): Probably multifactorial. Check labs and followup to re-evaluate Assessment & Plan (11/24/2023 10:35 AM FACILITY EXAMINER): Probably multifactorial. Check labs and followup to [...] 01/16/2022 Assessment & Plan (11/19/2024 11:44 PM FACILITY EXAMINER): Chronic hiccups for 5+ years Has been [...] to the ER. ER recommended referral to [facility] but patient states he can't go to [...] weeks Assessment & Plan (11/24/2023 10:34 AM FACILITY EXAMINER): Patient has persistent chronic hiccups that come [...] monitor Assessment & Plan (08/15/2023 5:01 PM FACILITY EXAMINER): Chronic hiccups for years. Has tried multiple interventions along with multiple workups from specialists including Neurology pulmonology and GI. Continue current regimen. Stressed importance of limiting water intake when he has the hiccups spells as this has been leading to hyponatremia requiring hospitalization. Assessment & Plan (08/11/2023 8:45 AM FACILITY EXAMINER): Patient with chronic hiccups. Have had difficulty [...] levels. Assessment & Plan (08/15/2022 6:45 PM FACILITY EXAMINER): Patient has consulted with most multiple specialists [...] hiccups. Assessment & Plan (08/15/2023 5:02 PM FACILITY EXAMINER): Chronic hiccups for years. Has tried multiple interventions along with multiple workups from specialists including Neurology pulmonology and GI. Continue current regimen. Stressed importance of limiting water intake when he has the hiccups spells as this has been leading to hyponatremia requiring hospitalization. Assessment & Plan (08/11/2023 8:46 AM FACILITY EXAMINER): Hyponatremia secondary to water intake with chronic [...] 07/14/2019 Assessment & Plan (11/19/2024 11:44 PM FACILITY EXAMINER): Continue PPI p.r.n. Assessment & Plan (05/20/2024 7:35 PM CDT): Continue pantoprazole p.r.n. Assessment & Plan (11/24/2023 10:33 AM FACILITY EXAMINER): Continue pantoprazole p.r.n. Assessment & Plan (04/08/2023 8:48 PM CDT): Continue PPI p.r.n. Assessment & Plan (12/12/2022 9:43 PM CDT): Insert PPI Assessment & Plan (08/15/2022 6:45 PM FACILITY EXAMINER): Continue PPI prn Assessment & Plan (02/09/2021 8:17 PM CDT): Continue PPI Assessment & Plan (07/29/2020 7:33 AM FACILITY EXAMINER): Continue PPI Assessment & Plan (03/27/2020 8:01 AM CDT): Dr. Stokes changed him from omeprazole to Pantoprazole for the hiccups. Pt hasn't noted any difference in GERD sxs (still well controlled) or hiccups. Assessment & Plan (09/26/2019 7:38 AM FACILITY EXAMINER): Continue PPI Assessment & Plan (07/14/2019 8:46 AM CDT): Discussed GERD at length including anatomy, behavioral changes (raise HOB, meal timings), dietary changes and medication options. Reviewed risks, benefits alternatives, side effects and proper use. Followup if sxs worsen or has hematochezia or hematemeis. Start PPI Chronic obstructive pulmonary disease 06/26/2019 Overview (06/26/2019): Noted on 06/2019 LDCT Assessment & Plan (11/19/2024 11:44 PM FACILITY EXAMINER): Patient with allergies and COPD. Continue Singulair albuterol and Symbicort. Follows with Dr. Valdes. Assessment & Plan (05/20/2024 7:35 PM CDT): Continue per Dr. Valdes. Continue with his Symbicort and albuterol inhalers. Low-dose CT will be scheduled for June 16, 2024. Assessment & Plan (11/24/2023 10:33 AM FACILITY EXAMINER): COPD. Continue per Dr. Hammond his telecommunications operator Continue Symbicort Singulair and albuterol p.r.n. Assessment & Plan (04/08/2023 8:48 PM CDT): Encouraged smoking cessation. Continue per Dr. Hammond pulmonology. He is on albuterol Symbicort and Singulair Assessment & Plan (12/12/2022 9:43 PM CDT): Stop smoking. Continue per Pulmonary. Continue Symbicort Singulair and albuterol. Continue monitoring low-dose CTs as instructed Assessment & Plan (08/15/2022 6:44 PM FACILITY EXAMINER): Stop smoking. Continue current plan per Pulmonary Assessment & Plan (08/01/2021 9:34 PM FACILITY EXAMINER): Continue per Pulmonary Dr. Valdes Assessment & Plan (02/09/2021 8:15 PM CDT): Stop smoking. Continue per Dr. Valdes Assessment & Plan (07/29/2020 7:32 AM FACILITY EXAMINER): Continue per Pulm Assessment & Plan (03/27/2020 8:00 AM CDT): Stop smoking. He declines starting inhalers or referral to Pulmonary Assessment & Plan (09/26/2019 10:27 PM FACILITY EXAMINER): This is a significant, separately identifiable problem [...] order Assessment & Plan (07/29/2020 7:33 AM FACILITY EXAMINER): Needs to repeat ---Dr. Valdes has already ordered Assessment & Plan (03/27/2020 8:00 AM CDT): 06/2019 LDCT Several 2-3mm nodules, probable benign LungRADs 2 --- repeat 06/2020 Assessment & Plan (09/26/2019 10:26 PM FACILITY EXAMINER): 06/2019 LDCT Several 2-3mm nodules, probable benign LungRADs 2 --- repeat 06/2020 Hyperplastic rectal polyp 05/20/2019 Overview (05/20/2019): Colonoscopy 01/29/2012 at [facility]--->2021 Assessment & Plan (05/28/2019 7:33 PM CDT): Recvd colonoscopy and due to repeat in 2021 Hiatal hernia 05/20/2019 Mixed hyperlipidemia 05/20/2019 Assessment & Plan (11/19/2024 11:45 PM FACILITY EXAMINER): Encouraged patient to follow low fat/low chol [...] 80 Assessment & Plan (11/24/2023 10:34 AM FACILITY EXAMINER): Encouraged patient to follow low fat/low chol diet like the Mediterranean diet. Increase good fats in the diet. Increase exercise. Monitor labs as needed. Continue pravastatin 80 Assessment & Plan (08/15/2023 5:03 PM FACILITY EXAMINER): Encouraged patient to follow low fat/low chol [...] Zetia Assessment & Plan (08/01/2021 9:33 PM FACILITY EXAMINER): Encouraged patient to follow fat/low chol diet [...] statin Assessment & Plan (07/29/2020 7:34 AM FACILITY EXAMINER): Encouraged patient to follow fat/low chol diet like the Mediterranean diet. Increase good fats in the diet. Increase exercise. Monitor labs as needed. Assessment & Plan (03/27/2020 8:02 AM CDT): Encouraged patient to continue low fat/low chol diet. Continue exercise. Increase good fats in the diet. Monitor labs as needed. Stable with zetia and pravastatin Assessment & Plan (09/26/2019 7:39 AM FACILITY EXAMINER): Encouraged patient to continue low fat/low chol [...] change Assessment & Plan (08/15/2023 5:03 PM FACILITY EXAMINER): Patient is legally blind. Continue with Ophthalmology Assessment & Plan (04/08/2023 8:47 PM CDT): No change Assessment & Plan (03/27/2020 8:02 AM CDT): No change Assessment & Plan (09/26/2019 7:39 AM FACILITY EXAMINER): No change Assessment & Plan (05/28/2019 7:35 PM CDT): No change Cigarette smoker 05/20/2019 Assessment & Plan (08/11/2023 8:45 AM FACILITY EXAMINER): Encouraged smoking cessation. Discussed 3 minutes. Reviewed options for assistance with cessation. Reviewed long term care pharmacist sequela associated with smoking. Pt declines assistance at this time but may contact the office at anytime for further help as they desire. Assessment & Plan (04/08/2023 8:47 PM CDT): Encouraged smoking cessation. Discussed 3 minutes. Reviewed options for assistance with cessation. Reviewed long term care pharmacist sequela associated with smoking. Pt declines assistance at this time but may contact the office at anytime for further help as they desire. Low-dose CT will be due in May. It is already scheduled Assessment & Plan (12/12/2022 9:42 PM CDT): Encouraged smoking cessation. Discussed 3 minutes. Reviewed options for assistance with cessation. Reviewed long term care pharmacist sequela associated with smoking. Pt declines assistance at this time but may contact the office at anytime for further help as they desire. Assessment & Plan (08/15/2022 6:44 PM FACILITY EXAMINER): Encouraged smoking cessation. Discussed 3 minutes. Reviewed options for assistance with cessation. Reviewed chcf sequela associated with smoking. Pt declines assistance at this time but may contact the office at anytime for further help as they desire. Assessment & Plan (05/09/2022 8:19 PM CDT): Encouraged smoking cessation. Discussed 3 minutes. Reviewed options for assistance with cessation. Reviewed long term care pharmacist sequela associated with smoking. Pt declines assistance at this time but may contact the office at anytime for further help as they desire. Assessment & Plan (08/01/2021 9:33 PM FACILITY EXAMINER): Encouraged smoking cessation. Discussed 3 minutes. Reviewed options for assistance with cessation. Reviewed long term care pharmacist sequela associated with smoking. Pt declines assistance at this time but may contact the office at anytime for further help as they desire. Assessment & Plan (05/17/2021 11:41 PM CDT): Encouraged smoking cessation. Discussed 3 minutes. Reviewed options for assistance with cessation. Reviewed long term care pharmacist sequela associated with smoking. Pt declines assistance at this time but may contact the office at anytime for further help as they desire. Assessment & Plan (03/12/2021 12:31 PM CDT): Encouraged smoking cessation. Discussed 3 minutes. Reviewed options for assistance with cessation. Reviewed chcf sequela associated with smoking. He is slowing down. Offered assistance. May call if decides he wants help Assessment & Plan (07/29/2020 7:34 AM FACILITY EXAMINER): Encouraged smoking cessation. Discussed 3 minutes. Reviewed options for assistance with cessation. Reviewed long term care pharmacist sequela associated with smoking. Pt declines assistance at this time but may contact the office at anytime for further help as they desire. Assessment & Plan (03/27/2020 8:02 AM CDT): Encouraged smoking cessation. Discussed 3 minutes. Reviewed options for assistance with cessation. Reviewed long term care pharmacist sequela associated with smoking. Pt declines assistance at this time but may contact the office at anytime for further help as they desire. Assessment & Plan (09/26/2019 7:39 AM FACILITY EXAMINER): Encouraged smoking cessation. Discussed 3 minutes. Reviewed options for assistance with cessation. Reviewed chcf sequela associated with smoking. Pt declines assistance at this time but may contact the office at anytime for further help as they desire. Assessment & Plan (07/14/2019 7:05 PM CDT): Encouraged smoking cessation. Discussed 3 minutes. Reviewed options for assistance with cessation. Reviewed long term care pharmacist sequela associated with smoking. Pt declines assistance [...] 05/20/2019 Assessment & Plan (11/19/2024 11:45 PM FACILITY EXAMINER): Pre-diabetes/hyperglycemia is a precursor to Dm. Stressed [...] diabetes. Assessment & Plan (11/24/2023 10:34 AM FACILITY EXAMINER): Pre-diabetes/hyperglycemia is a precursor to Dm. Stressed importance of working on diet (decrease your simple sugars and one carbohydrate with each meal) and increase you exercise to achieve weight loss and this will help prevent you from progressing to diabetes. Assessment & Plan (08/15/2023 5:03 PM FACILITY EXAMINER): Pre-diabetes/hyperglycemia is a precursor to Dm. Stressed [...] diabetes. Assessment & Plan (08/01/2021 9:33 PM FACILITY EXAMINER): Pre-diabetes/hyperglycemia is a precursor to Dm. Stressed [...] diabetes. Assessment & Plan (07/29/2020 7:34 AM FACILITY EXAMINER): Pre-diabetes is a precursor to Dm. Stressed [...] labs Assessment & Plan (09/26/2019 10:27 PM FACILITY EXAMINER): This is a significant, separately identifiable problem [...] 11/24/2023 Assessment & Plan (11/24/2023 10:35 AM FACILITY EXAMINER): Encouraged healthy lifestyle, good nutrition and exercise. Encouraged Calcium and Vitamin D and weight bearing exercise for bone health. Reviewed immunizations Reviewed age appropirate screenings. Need for influenza vaccination 08/15/2023 11/24/2023 Assessment & Plan (08/15/2023 5:04 PM FACILITY EXAMINER): Flu vaccine updated in the office today BMI 22.0-22.9, adult 07/22/2023 Assessment & Plan (08/11/2023 8:12 AM FACILITY EXAMINER): Weight/BMI is in healthy range. Continue healthy [...] 04/03/2023 Assessment & Plan (08/15/2022 6:45 PM FACILITY EXAMINER): Flu updated in the office today BMI [...] test outpatient. Was referred to an outside seismograph shooter. Encouraged to consider seeing a [facility] Medical group of cardiologists so all of his providers are in the same system. He is in agreement. Referral made to Dr. Eduardo as he has multiple risk factors. BMI 23.0-23.9, adult 01/21/2022 022 Assessment & Plan (01/21/2022 11:10 AM CDT): Weight/BMI is in healthy range. Continue healthy lifestyle to maintain. BMI 21.0-21.9, adult 08/01/2021 022 Assessment & Plan (08/01/2021 7:28 AM FACILITY EXAMINER): Weight/BMI is in healthy range. Continue healthy lifestyle to maintain. Medicare annual wellness visit, subsequent 08/01/2021 08/15/2022 Assessment & Plan (08/01/2021 9:34 PM FACILITY EXAMINER): Encouraged healthy lifestyle, good nutrition and exercise. Encouraged Calcium and Vitamin D and weight bearing exercise for bone health. Reviewed immunizations. Reviewed age appropirate screenings. Medicare Wellness Documentation is completed within the chart Fatigue 05/17/2021 05/02/2022 Assessment & Plan (08/01/2021 9:34 PM FACILITY EXAMINER): Probably multifactorial. Check labs and followup to [...] 024 Assessment & Plan (11/24/2023 10:34 AM FACILITY EXAMINER): Weight/BMI is in healthy range. Continue healthy [...] 05/02/2022 Assessment & Plan (07/29/2020 7:34 AM FACILITY EXAMINER): Probably multifactorial. Check labs and followup to re-evaluate Need for immunization against influenza 07/29/2020 11/24/2020 Assessment & Plan (07/29/2020 7:34 AM FACILITY EXAMINER): Updated in office today BMI 22.0-22.9, adult 03/27/2020 024 Assessment & Plan (05/20/2024 7:37 PM CDT): Weight/BMI is in healthy range. Continue healthy lifestyle to maintain. Assessment & Plan (07/29/2020 7:34 AM FACILITY EXAMINER): Weight/BMI is in healthy range. Continue healthy [...] 020 Assessment & Plan (09/26/2019 7:39 AM FACILITY EXAMINER): Weight/BMI is in healthy range. Continue healthy lifestyle to maintain. Annual physical exam 09/26/2019 020 Assessment & Plan (09/26/2019 7:40 AM FACILITY EXAMINER): Encouraged healthy lifestyle, good nutrition and exercise. Encouraged Calcium and Vitamin D and weight bearing exercise for bone health. Reviewed immunizations Reviewed age appropirate screenings. Influenza vaccine refused 09/26/2019 Assessment & Plan (09/26/2019 7:40 AM FACILITY EXAMINER): Encouraged vaccine. Reviewed risks/ benefits. Patient refuses and accepts risks. Esophagitis determined by endoscopy 05/20/2019 05/02/2022 Gastritis 05/20/2019 05/02/2022 Essential (primary) hypertension 05/20/2019 05/20/2024 Assessment & Plan (11/24/2023 10:34 AM FACILITY EXAMINER): Bp is stable/in acceptable range for any co-morbidities. Encouraged to limit sodium intake and exercise for weight control. Continue losartan 50 Assessment & Plan (08/15/2023 5:04 PM FACILITY EXAMINER): Bp is stable/in acceptable range for any co-morbidities. Encouraged to limit sodium intake and exercise for weight control. Continue per Dr. Curtis Assessment & Plan (08/11/2023 8:45 AM FACILITY EXAMINER): Bp is stable/in acceptable range for any [...] losartan Assessment & Plan (08/15/2022 6:44 PM FACILITY EXAMINER): Bp is stable/in acceptable range for any [...] 50 Assessment & Plan (08/01/2021 9:33 PM FACILITY EXAMINER): Bp is stable/in acceptable range for any [...] Losartan/HCTZ Assessment & Plan (07/29/2020 7:33 AM FACILITY EXAMINER): Bp is stable/in acceptable range for any co-morbidities. Encouraged to limit sodium intake and exercise for weight control. Losartan and HCTZ Assessment & Plan (03/27/2020 8:00 AM CDT): Bp is stable/in acceptable range for any co-morbidities. Encouraged to limit sodium intake and exercise for weight control. Continue losartan/HCTZ Assessment & Plan (09/26/2019 7:38 AM FACILITY EXAMINER): Bp is stable/in acceptable range for any [...] 01/21/2022 Assessment & Plan (08/01/2021 9:34 PM FACILITY EXAMINER): Persistent hiccups. Has consulted with multiple providers [...] omeprazole Assessment & Plan (07/29/2020 7:32 AM FACILITY EXAMINER): Continue per ENT/Pulm. He is responding to BID omeprazole. Will monitor Assessment & Plan (03/27/2020 7:59 AM CDT): Dr. Stokes started him on Pantoprazole. He hasn't noted much difference. Needs to followup to complete workup. Encouraged patient to call and make appointment. Assessment & Plan (09/26/2019 10:26 PM FACILITY EXAMINER): This is a significant, separately identifiable problem that was evaluated and managed on the same day as the wellness exam Less frequent than in the past. Continue the PPI and monitor Rx sent to pharmacy. Assessment & Plan (08/24/2019 9:04 AM FACILITY EXAMINER): Improving with the PPI. Continue PPI and [...] 2018 Assessment & Plan (08/24/2019 9:04 AM FACILITY EXAMINER): Encouraged vaccine. Reviewed risks/ benefits. Patient refuses [...] = 0.6 oz pur e alcohol) social [employer] Answer Date Recorded In the past 12 months has [employer], [employer], oil, or water [employer] threatened to shut off services in your [...] often do you attend chur ch or oriental orthodox services? Patient declined 12/03/2023 Do you belong to any clubs o r organizations such as presybeterian groups, unions, fraternal or athletic groups, or [...] place to sleep or slept in a long term (including now)? No 12/03/2023 Personal Safety Answer Date Recorded Have you ever been in or are you currently in a harmful physical or emotional relationship or is someone making you feel afraid or unsafe? Denies 08/01/2024 Sex and Gender Information Value Date Recorded Sex Assigned at Not on file Legal Sex Male 12:22 AM FACILITY EXAMINER Gender Identity Not on file Sexual Orientation [...] Procedure Name Priority Date/Time Associated Diagnosis Comments CT CHEST WO CONTRAST F/U LUNG SCREEN PROTOCOL Schedule Routine, Read Routine (OP Routine) 10/03/2024 9:25 AM FACILITY EXAMINER Pulmonary nodules PSA SCREEN Routine 12/16/2022 12:39 PM CDT Prostate cancer screening HEPATITIS PANEL, ACUTE Routine 05/03/2022 5:40 AM CDT HM COLONOSCOPY Routine 07/14/2021 from Last 3 Months or Most Recently Relevant to Health Maintenance Results * CT Chest WO Contrast F/U Lung Screen Protocol (10/03/2024 9:25 AM FACILITY EXAMINER) Anatomical Region Laterality Modality Chest N/A Computed Tomogra phy 10/03/2024 7:11 PM FACILITY EXAMINER Narrative 10/03/2024 7:17 PM FACILITY EXAMINER EXAM DESCRIPTION: CT CHEST WO CONTRAST F/U [...] Estuardo Ortiz M.D. KT T: Report ID: [id number] Reading Location: [place] [address] us Tasia Hoffman MD IMG CT PROCEDURES [...] Nuris ROBLES LAB BLOOD ORDERABLES Final Result [facility] [address] [facility] Department [place] [address] * Hepatitis panel, acute (05/03/2022 5:40 AM CDT) Hep [facility] IgM Nonreactive [facility] Comment: Interpretive Data: If Hep A IgM Ab is reported as Equivocal, a new sample should be drawn in two weeks for testing. Current interpretive data was last revised on 19. Hep B core IgM Nonreactive Nonreactive [facility] Comment: Interpretive Data If HepB Core IgM Ab is reported as Equivocal, a new sample should be drawn in two weeks for testing. Current interpretive data was last revised on 19. Hep C Ab Nonreactive Nonreactive [facility] Comment: Interpretive Data Nonreactive: Antibodies to [...] last revised on 2019. HepBsAg Nonreactive Nonreactive [facility] Blood 05/03/2022 5:40 AM CDT 05/03/2022 6:36 AM CDT Pamela Gongora DO LAB MICROBIOLOGY - GENERAL OR DERABLES Final Result Performing Organization Address [facility]/State/ZIP Co de Phone Number [facility] [address] [facility] [place] [address] * (ABNORMAL) COLONOSCOPY (07/14/2021) Jame Mg MD HEALTH MAINTENANCE Edited Result - Final from Last 3 Months or Most Recently Relevant to Health Maintenance Insurance AET MEDICARE GOLD AET MEDICARE [facility] AETNA MEDICARE [facility] Advance Directives For more information, please contact: [phone] * Full Code (Latest Code Status on [...] 10:34 PM 11/16/2022 9:56 PM Care Teams Check Embosser Relationship Specialty Start Date End Date Nuris Berger PA [address] [facility] [address] [place] [address] PCP - General Internal Medicine 12/28/18 Jonatan Stokes MD [address] [place] [address] Consulting Physician Otolaryngology 03/27/20 Irma Bajwa MD [address] [facility] [place] [address] Consulting Physician Neurology 05/07/22
--- OUTSIDE RECORDS SUMMARY | 2025-01-10 18:22 | XMS_ITS | Clinical Summary ---
Author Organization [facility] [place] [address] [facility] Address [address] [place] [address] Care Team Providers Care Application Specialist Name Role Phone Nuris Berger Primary Care Provider [phone] Jonatan Stokes MD Unavailable [phone] Irma Bajwa MD Unavailable [phone] Allergies Active Allergy Reactions Criticality Noted Date [...] 11/19/2024 Assessment & Plan (11/19/2024 11:45 PM DOCUMENT REVIEW ATTORNEY): Encouraged healthy lifestyle, good nutrition and exercise. Encouraged Calcium and Vitamin D and weight bearing exercise for bone health. Reviewed immunizations Reviewed age appropirate screenings. BMI 23.0-23.9, adult 06/20/2024 Assessment & Plan (10/30/2024 8:57 AM DOCUMENT REVIEW ATTORNEY): Weight/BMI is in healthy range. Continue healthy lifestyle to maintain. Assessment & Plan (06/20/2024 7:44 AM CDT): Weight/BMI is in healthy range. Continue healthy lifestyle to maintain. Vitamin D deficiency 11/24/2023 Assessment & Plan (11/19/2024 11:45 PM DOCUMENT REVIEW ATTORNEY): Supplement Assessment & Plan (05/20/2024 7:36 PM CDT): Supplement Fatigue 12/12/2022 Assessment & Plan (05/20/2024 7:37 PM CDT): Probably multifactorial. Check labs and followup to re-evaluate Assessment & Plan (11/24/2023 10:35 AM DOCUMENT REVIEW ATTORNEY): Probably multifactorial. Check labs and followup to [...] 01/16/2022 Assessment & Plan (11/19/2024 11:44 PM DOCUMENT REVIEW ATTORNEY): Chronic hiccups for 5+ years Has been [...] to the ER. ER recommended referral to [facility] but patient states he can't go to [...] weeks Assessment & Plan (11/24/2023 10:34 AM DOCUMENT REVIEW ATTORNEY): Patient has persistent chronic hiccups that come [...] monitor Assessment & Plan (08/15/2023 5:01 PM DOCUMENT REVIEW ATTORNEY): Chronic hiccups for years. Has tried multiple interventions along with multiple workups from specialists including Neurology pulmonology and GI. Continue current regimen. Stressed importance of limiting water intake when he has the hiccups spells as this has been leading to hyponatremia requiring hospitalization. Assessment & Plan (08/11/2023 8:45 AM DOCUMENT REVIEW ATTORNEY): Patient with chronic hiccups. Have had difficulty [...] levels. Assessment & Plan (08/15/2022 6:45 PM DOCUMENT REVIEW ATTORNEY): Patient has consulted with most multiple specialists [...] hiccups. Assessment & Plan (08/15/2023 5:02 PM DOCUMENT REVIEW ATTORNEY): Chronic hiccups for years. Has tried multiple interventions along with multiple workups from specialists including Neurology pulmonology and GI. Continue current regimen. Stressed importance of limiting water intake when he has the hiccups spells as this has been leading to hyponatremia requiring hospitalization. Assessment & Plan (08/11/2023 8:46 AM DOCUMENT REVIEW ATTORNEY): Hyponatremia secondary to water intake with chronic [...] 07/14/2019 Assessment & Plan (11/19/2024 11:44 PM DOCUMENT REVIEW ATTORNEY): Continue PPI p.r.n. Assessment & Plan (05/20/2024 7:35 PM CDT): Continue pantoprazole p.r.n. Assessment & Plan (11/24/2023 10:33 AM DOCUMENT REVIEW ATTORNEY): Continue pantoprazole p.r.n. Assessment & Plan (04/08/2023 8:48 PM CDT): Continue PPI p.r.n. Assessment & Plan (12/12/2022 9:43 PM CDT): Insert PPI Assessment & Plan (08/15/2022 6:45 PM DOCUMENT REVIEW ATTORNEY): Continue PPI prn Assessment & Plan (02/09/2021 8:17 PM CDT): Continue PPI Assessment & Plan (07/29/2020 7:33 AM DOCUMENT REVIEW ATTORNEY): Continue PPI Assessment & Plan (03/27/2020 8:01 AM CDT): Dr. Stokes changed him from omeprazole to Pantoprazole for the hiccups. Pt hasn't noted any difference in GERD sxs (still well controlled) or hiccups. Assessment & Plan (09/26/2019 7:38 AM DOCUMENT REVIEW ATTORNEY): Continue PPI Assessment & Plan (07/14/2019 8:46 AM CDT): Discussed GERD at length including anatomy, behavioral changes (raise HOB, meal timings), dietary changes and medication options. Reviewed risks, benefits alternatives, side effects and proper use. Followup if sxs worsen or has hematochezia or hematemeis. Start PPI Chronic obstructive pulmonary disease 06/26/2019 Overview (06/26/2019): Noted on 06/2019 LDCT Assessment & Plan (11/19/2024 11:44 PM DOCUMENT REVIEW ATTORNEY): Patient with allergies and COPD. Continue Singulair albuterol and Symbicort. Follows with Dr. Valdes. Assessment & Plan (05/20/2024 7:35 PM CDT): Continue per Dr. Valdes. Continue with his Symbicort and albuterol inhalers. Low-dose CT will be scheduled for June 16, 2024. Assessment & Plan (11/24/2023 10:33 AM DOCUMENT REVIEW ATTORNEY): COPD. Continue per Dr. Hammond his rn chronic Continue Symbicort Singulair and albuterol p.r.n. Assessment & Plan (04/08/2023 8:48 PM CDT): Encouraged smoking cessation. Continue per Dr. Hammond pulmonology. He is on albuterol Symbicort and Singulair Assessment & Plan (12/12/2022 9:43 PM CDT): Stop smoking. Continue per Pulmonary. Continue Symbicort Singulair and albuterol. Continue monitoring low-dose CTs as instructed Assessment & Plan (08/15/2022 6:44 PM DOCUMENT REVIEW ATTORNEY): Stop smoking. Continue current plan per Pulmonary Assessment & Plan (08/01/2021 9:34 PM DOCUMENT REVIEW ATTORNEY): Continue per Pulmonary Dr. Valdes Assessment & Plan (02/09/2021 8:15 PM CDT): Stop smoking. Continue per Dr. Valdes Assessment & Plan (07/29/2020 7:32 AM DOCUMENT REVIEW ATTORNEY): Continue per Pulm Assessment & Plan (03/27/2020 8:00 AM CDT): Stop smoking. He declines starting inhalers or referral to Pulmonary Assessment & Plan (09/26/2019 10:27 PM DOCUMENT REVIEW ATTORNEY): This is a significant, separately identifiable problem [...] order Assessment & Plan (07/29/2020 7:33 AM DOCUMENT REVIEW ATTORNEY): Needs to repeat ---Dr. Valdes has already ordered Assessment & Plan (03/27/2020 8:00 AM CDT): 06/2019 LDCT Several 2-3mm nodules, probable benign LungRADs 2 --- repeat 06/2020 Assessment & Plan (09/26/2019 10:26 PM DOCUMENT REVIEW ATTORNEY): 06/2019 LDCT Several 2-3mm nodules, probable benign LungRADs 2 --- repeat 06/2020 Hyperplastic rectal polyp 05/20/2019 Overview (05/20/2019): Colonoscopy 01/29/2012 at [facility]--->2021 Assessment & Plan (05/28/2019 7:33 PM CDT): Recvd colonoscopy and due to repeat in 2021 Hiatal hernia 05/20/2019 Mixed hyperlipidemia 05/20/2019 Assessment & Plan (11/19/2024 11:45 PM DOCUMENT REVIEW ATTORNEY): Encouraged patient to follow low fat/low chol [...] 80 Assessment & Plan (11/24/2023 10:34 AM DOCUMENT REVIEW ATTORNEY): Encouraged patient to follow low fat/low chol diet like the Mediterranean diet. Increase good fats in the diet. Increase exercise. Monitor labs as needed. Continue pravastatin 80 Assessment & Plan (08/15/2023 5:03 PM DOCUMENT REVIEW ATTORNEY): Encouraged patient to follow low fat/low chol [...] Zetia Assessment & Plan (08/01/2021 9:33 PM DOCUMENT REVIEW ATTORNEY): Encouraged patient to follow fat/low chol diet [...] statin Assessment & Plan (07/29/2020 7:34 AM DOCUMENT REVIEW ATTORNEY): Encouraged patient to follow fat/low chol diet like the Mediterranean diet. Increase good fats in the diet. Increase exercise. Monitor labs as needed. Assessment & Plan (03/27/2020 8:02 AM CDT): Encouraged patient to continue low fat/low chol diet. Continue exercise. Increase good fats in the diet. Monitor labs as needed. Stable with zetia and pravastatin Assessment & Plan (09/26/2019 7:39 AM DOCUMENT REVIEW ATTORNEY): Encouraged patient to continue low fat/low chol [...] change Assessment & Plan (08/15/2023 5:03 PM DOCUMENT REVIEW ATTORNEY): Patient is legally blind. Continue with Ophthalmology Assessment & Plan (04/08/2023 8:47 PM CDT): No change Assessment & Plan (03/27/2020 8:02 AM CDT): No change Assessment & Plan (09/26/2019 7:39 AM DOCUMENT REVIEW ATTORNEY): No change Assessment & Plan (05/28/2019 7:35 PM CDT): No change Cigarette smoker 05/20/2019 Assessment & Plan (08/11/2023 8:45 AM DOCUMENT REVIEW ATTORNEY): Encouraged smoking cessation. Discussed 3 minutes. Reviewed options for assistance with cessation. Reviewed group home sequela associated with smoking. Pt declines assistance at this time but may contact the office at anytime for further help as they desire. Assessment & Plan (04/08/2023 8:47 PM CDT): Encouraged smoking cessation. Discussed 3 minutes. Reviewed options for assistance with cessation. Reviewed director long term care sequela associated with smoking. Pt declines assistance at this time but may contact the office at anytime for further help as they desire. Low-dose CT will be due in May. It is already scheduled Assessment & Plan (12/12/2022 9:42 PM CDT): Encouraged smoking cessation. Discussed 3 minutes. Reviewed options for assistance with cessation. Reviewed group home sequela associated with smoking. Pt declines assistance at this time but may contact the office at anytime for further help as they desire. Assessment & Plan (08/15/2022 6:44 PM DOCUMENT REVIEW ATTORNEY): Encouraged smoking cessation. Discussed 3 minutes. Reviewed options for assistance with cessation. Reviewed director long term care sequela associated with smoking. Pt declines assistance at this time but may contact the office at anytime for further help as they desire. Assessment & Plan (05/09/2022 8:19 PM CDT): Encouraged smoking cessation. Discussed 3 minutes. Reviewed options for assistance with cessation. Reviewed group home sequela associated with smoking. Pt declines assistance at this time but may contact the office at anytime for further help as they desire. Assessment & Plan (08/01/2021 9:33 PM DOCUMENT REVIEW ATTORNEY): Encouraged smoking cessation. Discussed 3 minutes. Reviewed options for assistance with cessation. Reviewed group home sequela associated with smoking. Pt declines assistance at this time but may contact the office at anytime for further help as they desire. Assessment & Plan (05/17/2021 11:41 PM CDT): Encouraged smoking cessation. Discussed 3 minutes. Reviewed options for assistance with cessation. Reviewed group home sequela associated with smoking. Pt declines assistance at this time but may contact the office at anytime for further help as they desire. Assessment & Plan (03/12/2021 12:31 PM CDT): Encouraged smoking cessation. Discussed 3 minutes. Reviewed options for assistance with cessation. Reviewed group home sequela associated with smoking. He is slowing down. Offered assistance. May call if decides he wants help Assessment & Plan (07/29/2020 7:34 AM DOCUMENT REVIEW ATTORNEY): Encouraged smoking cessation. Discussed 3 minutes. Reviewed options for assistance with cessation. Reviewed director long term care sequela associated with smoking. Pt declines assistance at this time but may contact the office at anytime for further help as they desire. Assessment & Plan (03/27/2020 8:02 AM CDT): Encouraged smoking cessation. Discussed 3 minutes. Reviewed options for assistance with cessation. Reviewed director long term care sequela associated with smoking. Pt declines assistance at this time but may contact the office at anytime for further help as they desire. Assessment & Plan (09/26/2019 7:39 AM DOCUMENT REVIEW ATTORNEY): Encouraged smoking cessation. Discussed 3 minutes. Reviewed options for assistance with cessation. Reviewed group home sequela associated with smoking. Pt declines assistance at this time but may contact the office at anytime for further help as they desire. Assessment & Plan (07/14/2019 7:05 PM CDT): Encouraged smoking cessation. Discussed 3 minutes. Reviewed options for assistance with cessation. Reviewed group home sequela associated with smoking. Pt declines assistance [...] 05/20/2019 Assessment & Plan (11/19/2024 11:45 PM DOCUMENT REVIEW ATTORNEY): Pre-diabetes/hyperglycemia is a precursor to Dm. Stressed [...] diabetes. Assessment & Plan (11/24/2023 10:34 AM DOCUMENT REVIEW ATTORNEY): Pre-diabetes/hyperglycemia is a precursor to Dm. Stressed importance of working on diet (decrease your simple sugars and one carbohydrate with each meal) and increase you exercise to achieve weight loss and this will help prevent you from progressing to diabetes. Assessment & Plan (08/15/2023 5:03 PM DOCUMENT REVIEW ATTORNEY): Pre-diabetes/hyperglycemia is a precursor to Dm. Stressed [...] diabetes. Assessment & Plan (08/01/2021 9:33 PM DOCUMENT REVIEW ATTORNEY): Pre-diabetes/hyperglycemia is a precursor to Dm. Stressed [...] diabetes. Assessment & Plan (07/29/2020 7:34 AM DOCUMENT REVIEW ATTORNEY): Pre-diabetes is a precursor to Dm. Stressed [...] labs Assessment & Plan (09/26/2019 10:27 PM DOCUMENT REVIEW ATTORNEY): This is a significant, separately identifiable problem [...] 024 Assessment & Plan (11/24/2023 10:35 AM DOCUMENT REVIEW ATTORNEY): Encouraged healthy lifestyle, good nutrition and exercise. Encouraged Calcium and Vitamin D and weight bearing exercise for bone health. Reviewed immunizations Reviewed age appropirate screenings. Need for influenza vaccination 08/15/2023 11/24/2023 Assessment & Plan (08/15/2023 5:04 PM DOCUMENT REVIEW ATTORNEY): Flu vaccine updated in the office today BMI 22.0-22.9, adult 07/22/2023 024 Assessment & Plan (08/11/2023 8:12 AM DOCUMENT REVIEW ATTORNEY): Weight/BMI is in healthy range. Continue healthy [...] 04/03/2023 Assessment & Plan (08/15/2022 6:45 PM DOCUMENT REVIEW ATTORNEY): Flu updated in the office today BMI [...] test outpatient. Was referred to an outside lead case manager. Encouraged to consider seeing a [facility] Medical group of cardiologists so all of his providers are in the same system. He is in agreement. Referral made to Dr. Eduardo as he has multiple risk factors. BMI 23.0-23.9, adult 01/21/2022 022 Assessment & Plan (01/21/2022 11:10 AM CDT): Weight/BMI is in healthy range. Continue healthy lifestyle to maintain. BMI 21.0-21.9, adult 08/01/2021 022 Assessment & Plan (08/01/2021 7:28 AM DOCUMENT REVIEW ATTORNEY): Weight/BMI is in healthy range. Continue healthy lifestyle to maintain. Medicare annual wellness visit, subsequent 08/01/2021 08/15/2022 Assessment & Plan (08/01/2021 9:34 PM DOCUMENT REVIEW ATTORNEY): Encouraged healthy lifestyle, good nutrition and exercise. Encouraged Calcium and Vitamin D and weight bearing exercise for bone health. Reviewed immunizations. Reviewed age appropirate screenings. Medicare Wellness Documentation is completed within the chart Fatigue 05/17/2021 05/02/2022 Assessment & Plan (08/01/2021 9:34 PM DOCUMENT REVIEW ATTORNEY): Probably multifactorial. Check labs and followup to [...] Pulmonary. Stop smoking BMI 21.0-21.9, adult 01/21/2021 Assessment & Plan (11/24/2023 10:34 AM DOCUMENT REVIEW ATTORNEY): Weight/BMI is in healthy range. Continue healthy lifestyle to maintain. Assessment & Plan (03/12/2021 11:03 AM CDT): Weight/BMI is in healthy range. Continue healthy lifestyle to maintain. Assessment & Plan (01/21/2021 8:04 AM CDT): Weight/BMI is in healthy range. Continue healthy lifestyle to maintain. Annual physical exam 11/24/2020 Assessment & Plan (02/09/2021 8:17 PM CDT): Encouraged healthy lifestyle, good nutrition and exercise. Encouraged Calcium and Vitamin D and weight bearing exercise for bone health. Reviewed immunizations Reviewed age appropirate screenings. Other fatigue 07/29/2020 05/02/2022 Assessment & Plan (07/29/2020 7:34 AM DOCUMENT REVIEW ATTORNEY): Probably multifactorial. Check labs and followup to re-evaluate Need for immunization against influenza 07/29/2020 11/24/2020 Assessment & Plan (07/29/2020 7:34 AM DOCUMENT REVIEW ATTORNEY): Updated in office today BMI 22.0-22.9, adult 03/27/2020 024 Assessment & Plan (05/20/2024 7:37 PM CDT): Weight/BMI is in healthy range. Continue healthy lifestyle to maintain. Assessment & Plan (07/29/2020 7:34 AM DOCUMENT REVIEW ATTORNEY): Weight/BMI is in healthy range. Continue healthy [...] 020 Assessment & Plan (09/26/2019 7:39 AM DOCUMENT REVIEW ATTORNEY): Weight/BMI is in healthy range. Continue healthy lifestyle to maintain. Annual physical exam 09/26/2019 020 Assessment & Plan (09/26/2019 7:40 AM DOCUMENT REVIEW ATTORNEY): Encouraged healthy lifestyle, good nutrition and exercise. Encouraged Calcium and Vitamin D and weight bearing exercise for bone health. Reviewed immunizations Reviewed age appropirate screenings. Influenza vaccine refused 09/26/2019 Assessment & Plan (09/26/2019 7:40 AM DOCUMENT REVIEW ATTORNEY): Encouraged vaccine. Reviewed risks/ benefits. Patient refuses and accepts risks. Esophagitis determined by endoscopy 05/20/2019 05/02/2022 Gastritis 05/20/2019 05/02/2022 Essential (primary) hypertension 05/20/2019 05/20/2024 Assessment & Plan (11/24/2023 10:34 AM DOCUMENT REVIEW ATTORNEY): Bp is stable/in acceptable range for any co-morbidities. Encouraged to limit sodium intake and exercise for weight control. Continue losartan 50 Assessment & Plan (08/15/2023 5:04 PM DOCUMENT REVIEW ATTORNEY): Bp is stable/in acceptable range for any co-morbidities. Encouraged to limit sodium intake and exercise for weight control. Continue per Dr. Curtis Assessment & Plan (08/11/2023 8:45 AM DOCUMENT REVIEW ATTORNEY): Bp is stable/in acceptable range for any [...] losartan Assessment & Plan (08/15/2022 6:44 PM DOCUMENT REVIEW ATTORNEY): Bp is stable/in acceptable range for any [...] 50 Assessment & Plan (08/01/2021 9:33 PM DOCUMENT REVIEW ATTORNEY): Bp is stable/in acceptable range for any [...] Losartan/HCTZ Assessment & Plan (07/29/2020 7:33 AM DOCUMENT REVIEW ATTORNEY): Bp is stable/in acceptable range for any co-morbidities. Encouraged to limit sodium intake and exercise for weight control. Losartan and HCTZ Assessment & Plan (03/27/2020 8:00 AM CDT): Bp is stable/in acceptable range for any co-morbidities. Encouraged to limit sodium intake and exercise for weight control. Continue losartan/HCTZ Assessment & Plan (09/26/2019 7:38 AM DOCUMENT REVIEW ATTORNEY): Bp is stable/in acceptable range for any [...] 01/21/2022 Assessment & Plan (08/01/2021 9:34 PM DOCUMENT REVIEW ATTORNEY): Persistent hiccups. Has consulted with multiple providers and been to the ER. States the ER started him on a new medication but he is unsure of the name. Encouraged him to call the office so we can get his listing updated. Assessment & Plan (05/17/2021 11:41 PM CDT): Was started on chlorpromazine in the ER. Continue with [facility]MK[facility], Dr. Staley. Assessment & Plan (03/12/2021 12:28 PM CDT): Has had extensive workup with Neuro, ENT and now back to GI. Await recommendations. Assessment & Plan (02/09/2021 8:16 PM CDT): Persistent hiccups. Continue per Dr. Stokes. He is still on omeprazole Assessment & Plan (07/29/2020 7:32 AM DOCUMENT REVIEW ATTORNEY): Continue per ENT/Pulm. He is responding to BID omeprazole. Will monitor Assessment & Plan (03/27/2020 7:59 AM CDT): Dr. Stokes started him on Pantoprazole. He hasn't noted much difference. Needs to followup to complete workup. Encouraged patient to call and make appointment. Assessment & Plan (09/26/2019 10:26 PM DOCUMENT REVIEW ATTORNEY): This is a significant, separately identifiable problem that was evaluated and managed on the same day as the wellness exam Less frequent than in the past. Continue the PPI and monitor Rx sent to pharmacy. Assessment & Plan (08/24/2019 9:04 AM DOCUMENT REVIEW ATTORNEY): Improving with the PPI. Continue PPI and [...] 2018 Assessment & Plan (08/24/2019 9:04 AM DOCUMENT REVIEW ATTORNEY): Encouraged vaccine. Reviewed risks/ benefits. Patient refuses [...] Care Team Description 12/29/2024 DEBBIE IP Outreach [facility] Accountable Care Organization [address] [place] [id number] Anahi Phipps [place] 12/27/[address] [place] [phone] Nuris Berger PA 12/26/[address] [place] [phone] Nuris Berger PA 12/06/2024 9:30 AM CDT Office Visit [facility] Pulmon[facility] [address] [facility] [address] [place] [phone] Tasia Hoffman MD Chronic obstructive pulmonary disease, unspecified COPD type (HCC) (Primary Dx); Mild persistent asthma without complication; Non-seasonal allergic rhinitis due to other allergic trigger; Nicotine dependence, cigarettes, in remission 10/30/2024 9:00 AM DOCUMENT REVIEW ATTORNEY Office Visit [facility] [address] [place] [address] [address] [place] [address] Nuris Berger PA Annual physical exam (Primary Dx); Vitamin D deficiency; Mixed hyperlipidemia; Pre-diabetes; Chronic obstructive pulmonary disease, unspecified COPD type (HCC); Gastroesophageal reflux disease with esophagitis without hemorrhage; Chronic hiccups; BMI 23.0-23.9, adult from Last 3 Months Immunizations Immunization Administration [...] Name Comments Blindness Father Heart attack Father [place] Heart disease Father No Known Problems Mother Relation Name Status Comments Father Mother Social History Tobacco Use Types Packs/Day Years Used Date Smoking Tobacco: Former Cigarettes 0.8 40 0 09/1981 - 09/2021 Smokeless Tobacco: Never Tobacco Cessation:Counseling Given: Not Answered Alcohol Use Standard Drinks/Week Comments Yes 0 (1 standard drink = 0.6 oz pur e alcohol) social Personal Utilities Answer Date Recorded In the past 12 months has [employer], oil, or water [employer] threatened to shut off services in your [...] week 12/03/2023 How often do you attend [facility] or [employer] services? Patient declined 12/03/2023 Do you belong to any clubs o r organizations such as temple groups, unions, fraternal or athletic groups, or [...] place to sleep or slept in a [place] [facility] [place] (including now)? No 12/03/2023 Personal Safety Answer Date Recorded Have you ever been in or are you currently in a harmful physical or emotional relationship or is someone making you feel afraid or unsafe? Denies 08/01/2024 Sex and Gender Information Value Date Recorded Sex Assigned at Not on file Legal Sex Male 12:22 AM DOCUMENT REVIEW ATTORNEY Gender Identity Not on file Sexual Orientation [...] 07/14/2021, 01/29/2012 Colon Cancer Screening-DNA Stool Discontinued 07/14/20 21, 01/29/2012 Colon Cancer Screening-FIT Discontinued 07/14/2021, Colon Cancer Screening-Sigmoidoscopy Discontinued 07/14/2021, 01/29/2012 Hepatitis C Screening Completed 05/03/2022 Influenza Vaccine Completed 06/20/2024, , 07/23/2022, Additional history exists Procedures Procedure Name Priority Date/Time Associated Diagnosis Comments CT CHEST WO CONTRAST F/U LUNG SCREEN PROTOCOL Schedule Routine, Read Routine (OP Routine) 10/03/2024 9:25 AM DOCUMENT REVIEW ATTORNEY Pulmonary nodules PSA SCREEN Routine 12/16/2022 12:39 PM CDT Prostate cancer screening HEPATITIS PANEL, ACUTE Routine 05/03/2022 5:40 AM CDT HM COLONOSCOPY Routine 07/14/2021 from Last 3 Months or Most Recently Relevant to Health Maintenance Results * CT Chest WO Contrast F/U Lung Screen Protocol (10/03/2024 9:25 AM DOCUMENT REVIEW ATTORNEY) Anatomical Region Laterality Modality Chest N/A Computed Tomogra phy 10/03/2024 7:11 PM DOCUMENT REVIEW ATTORNEY Narrative 10/03/2024 7:17 PM DOCUMENT REVIEW ATTORNEY EXAM DESCRIPTION: CT CHEST WO CONTRAST F/U [...] Estuardo Ortiz M.D. KT T: Report ID: [id number] Reading Location: [id number] Tasia Hoffman MD IMG CT PROCEDURES Final [...] ROBLES LAB BLOOD ORDERABLES Final Result [facility] [address] [facility] Department [place] [address] * Hepatitis panel, acute (05/03/2022 5:40 AM CDT) Hep A IgM Nonreactive Nonreactive ANABELA SOLIS Comment: Interpretive Data: If Hep A IgM [...] revised on 2019. HepBsAg Nonreactive Nonreactive ANABELA Blood 05/03/2022 5:40 AM CDT 05/03/2022 6:36 AM CDT Pamela Gongora DO LAB MICROBIOLOGY - GENERAL OR DERABLES Final Result [facility] [address] [facility] Department [place] [address] * (ABNORMAL) HM COLONOSCOPY (07/14/2021) Jame Mg MD HEALTH MAINTENANCE Edited Result - Final from Last 3 Months or Most Recently Relevant to Health Maintenance Insurance A[employer] MEDICARE GOLD AETNA MEDICARE GOLD AETNA MEDICARE GOLD Advance Directives For more information, please contact: [phone] * Full Code (Latest Code Status on [...] 10:34 PM 11/16/2022 9:56 PM Care Teams Application Specialist Relationship Specialty Start Date End Date Nuris Berger PA [address] [place] [address] PCP - General Internal Medicine 12/28/18 Jonatan Stokes MD [address] [place] [address] Consulting Physician Otolaryngology 03/27/20 Irma Bajwa MD [address] [place] [address] Consulting Physician Neurology 05/07/22
--- OUTSIDE RECORDS SUMMARY | 2025-01-10 19:45 | XMS_ITS | Encounter Summary ---
Author Organization [facility] Healthcare Address [address] [place] [address] Care Team Providers Care Jacquard Twine Polisher Operator Name Role Phone Nuris Berger Primary Care Provider [phone] Jonatan Stokes MD Unavailable [phone] Irma Bajwa MD Unavailable [phone] Encounter Details Date Type Department Care Team (Late st Contact Info) Description 06/28/2024 Orders Only [facility] [place] [facility] Information Management [address] [place] [address] Scanning, Provider Social History Tobacco Use Types Packs/Day Years Used Date Smoking Tobacco: Former Cigarettes 0.8 40 0 09/1981 - 09/2021 Smokeless Tobacco: Never Alcohol Use Standard Drinks/Week Comments Yes 0 (1 standard drink = 0.6 oz pur e alcohol) social [facility] Utilities Answer Date Recorded In the past 12 months has [employer], gas, oil, or water [employer] threatened to shut off services in your [...] week 12/03/2023 How often do you attend [facility] or restorationist services? Patient declined 12/03/2023 Do you belong to any clubs o r organizations such as buddhist groups, unions, fraternal or athletic groups, or [...] place to sleep or slept in a alf (including now)? No 12/03/2023 Personal Safety Answer Date Recorded Have you ever been in or are you currently in a harmful physical or emotional relationship or is someone making you feel afraid or unsafe? 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
--- OUTSIDE RECORDS SUMMARY | 2025-01-10 19:46 | XMS_ITS | Clinical Summary ---
Author Organization [facility] [address] [facility] Address [address] [place] [address] Care Team Providers Care Electronic Development Technician Name Role Phone Nuris Berger Primary Care Provider [phone] Jonatan Stokes MD Unavailable [phone] Irma Bajwa MD Unavailable [phone] Allergies Active Allergy Reactions Criticality Noted Date [...] 11/19/2024 Assessment & Plan (11/19/2024 11:45 PM FISHER TERRAPIN): Encouraged healthy lifestyle, good nutrition and exercise. Encouraged Calcium and Vitamin D and weight bearing exercise for bone health. Reviewed immunizations Reviewed age appropirate screenings. BMI 23.0-23.9, adult 06/20/2024 Assessment & Plan (10/30/2024 8:57 AM FISHER TERRAPIN): Weight/BMI is in healthy range. Continue healthy lifestyle to maintain. Assessment & Plan (06/20/2024 7:44 AM CDT): Weight/BMI is in healthy range. Continue healthy lifestyle to maintain. Vitamin D deficiency 11/24/2023 Assessment & Plan (11/19/2024 11:45 PM FISHER TERRAPIN): Supplement Assessment & Plan (05/20/2024 7:36 PM CDT): Supplement Fatigue 12/12/2022 Assessment & Plan (05/20/2024 7:37 PM CDT): Probably multifactorial. Check labs and followup to re-evaluate Assessment & Plan (11/24/2023 10:35 AM FISHER TERRAPIN): Probably multifactorial. Check labs and followup to [...] 01/16/2022 Assessment & Plan (11/19/2024 11:44 PM FISHER TERRAPIN): Chronic hiccups for 5+ years Has been [...] to the ER. ER recommended referral to [facility] but patient states he can't go to [...] weeks Assessment & Plan (11/24/2023 10:34 AM FISHER TERRAPIN): Patient has persistent chronic hiccups that come [...] monitor Assessment & Plan (08/15/2023 5:01 PM FISHER TERRAPIN): Chronic hiccups for years. Has tried multiple interventions along with multiple workups from specialists including Neurology pulmonology and GI. Continue current regimen. Stressed importance of limiting water intake when he has the hiccups spells as this has been leading to hyponatremia requiring hospitalization. Assessment & Plan (08/11/2023 8:45 AM FISHER TERRAPIN): Patient with chronic hiccups. Have had difficulty [...] levels. Assessment & Plan (08/15/2022 6:45 PM FISHER TERRAPIN): Patient has consulted with most multiple specialists [...] hiccups. Assessment & Plan (08/15/2023 5:02 PM FISHER TERRAPIN): Chronic hiccups for years. Has tried multiple interventions along with multiple workups from specialists including Neurology pulmonology and GI. Continue current regimen. Stressed importance of limiting water intake when he has the hiccups spells as this has been leading to hyponatremia requiring hospitalization. Assessment & Plan (08/11/2023 8:46 AM FISHER TERRAPIN): Hyponatremia secondary to water intake with chronic [...] 07/14/2019 Assessment & Plan (11/19/2024 11:44 PM FISHER TERRAPIN): Continue PPI p.r.n. Assessment & Plan (05/20/2024 7:35 PM CDT): Continue pantoprazole p.r.n. Assessment & Plan (11/24/2023 10:33 AM FISHER TERRAPIN): Continue pantoprazole p.r.n. Assessment & Plan (04/08/2023 8:48 PM CDT): Continue PPI p.r.n. Assessment & Plan (12/12/2022 9:43 PM CDT): Insert PPI Assessment & Plan (08/15/2022 6:45 PM FISHER TERRAPIN): Continue PPI prn Assessment & Plan (02/09/2021 8:17 PM CDT): Continue PPI Assessment & Plan (07/29/2020 7:33 AM FISHER TERRAPIN): Continue PPI Assessment & Plan (03/27/2020 8:01 AM CDT): Dr. Stokes changed him from omeprazole to Pantoprazole for the hiccups. Pt hasn't noted any difference in GERD sxs (still well controlled) or hiccups. Assessment & Plan (09/26/2019 7:38 AM FISHER TERRAPIN): Continue PPI Assessment & Plan (07/14/2019 8:46 AM CDT): Discussed GERD at length including anatomy, behavioral changes (raise HOB, meal timings), dietary changes and medication options. Reviewed risks, benefits alternatives, side effects and proper use. Followup if sxs worsen or has hematochezia or hematemeis. Start PPI Chronic obstructive pulmonary disease 06/26/2019 Overview (06/26/2019): Noted on 06/2019 LDCT Assessment & Plan (11/19/2024 11:44 PM FISHER TERRAPIN): Patient with allergies and COPD. Continue Singulair albuterol and Symbicort. Follows with Dr. Valdes. Assessment & Plan (05/20/2024 7:35 PM CDT): Continue per Dr. Valdes. Continue with his Symbicort and albuterol inhalers. Low-dose CT will be scheduled for June 16, 2024. Assessment & Plan (11/24/2023 10:33 AM FISHER TERRAPIN): COPD. Continue per Dr. Hammond his chief cruiser Continue Symbicort Singulair and albuterol p.r.n. Assessment & Plan (04/08/2023 8:48 PM CDT): Encouraged smoking cessation. Continue per Dr. Hammond pulmonology. He is on albuterol Symbicort and Singulair Assessment & Plan (12/12/2022 9:43 PM CDT): Stop smoking. Continue per Pulmonary. Continue Symbicort Singulair and albuterol. Continue monitoring low-dose CTs as instructed Assessment & Plan (08/15/2022 6:44 PM FISHER TERRAPIN): Stop smoking. Continue current plan per Pulmonary Assessment & Plan (08/01/2021 9:34 PM FISHER TERRAPIN): Continue per Pulmonary Dr. Valdes Assessment & Plan (02/09/2021 8:15 PM CDT): Stop smoking. Continue per Dr. Valdes Assessment & Plan (07/29/2020 7:32 AM FISHER TERRAPIN): Continue per Pulm Assessment & Plan (03/27/2020 8:00 AM CDT): Stop smoking. He declines starting inhalers or referral to Pulmonary Assessment & Plan (09/26/2019 10:27 PM FISHER TERRAPIN): This is a significant, separately identifiable problem [...] order Assessment & Plan (07/29/2020 7:33 AM FISHER TERRAPIN): Needs to repeat ---Dr. Valdes has already ordered Assessment & Plan (03/27/2020 8:00 AM CDT): 06/2019 LDCT Several 2-3mm nodules, probable benign LungRADs 2 --- repeat 06/2020 Assessment & Plan (09/26/2019 10:26 PM FISHER TERRAPIN): 06/2019 LDCT Several 2-3mm nodules, probable benign LungRADs 2 --- repeat 06/2020 Hyperplastic rectal polyp 05/20/2019 Overview (05/20/2019): Colonoscopy 01/29/2012 at [facility]--->2021 Assessment & Plan (05/28/2019 7:33 PM CDT): Recvd colonoscopy and due to repeat in 2021 Hiatal hernia 05/20/2019 Mixed hyperlipidemia 05/20/2019 Assessment & Plan (11/19/2024 11:45 PM FISHER TERRAPIN): Encouraged patient to follow low fat/low chol [...] 80 Assessment & Plan (11/24/2023 10:34 AM FISHER TERRAPIN): Encouraged patient to follow low fat/low chol diet like the Mediterranean diet. Increase good fats in the diet. Increase exercise. Monitor labs as needed. Continue pravastatin 80 Assessment & Plan (08/15/2023 5:03 PM FISHER TERRAPIN): Encouraged patient to follow low fat/low chol [...] Zetia Assessment & Plan (08/01/2021 9:33 PM FISHER TERRAPIN): Encouraged patient to follow fat/low chol diet [...] statin Assessment & Plan (07/29/2020 7:34 AM FISHER TERRAPIN): Encouraged patient to follow fat/low chol diet like the Mediterranean diet. Increase good fats in the diet. Increase exercise. Monitor labs as needed. Assessment & Plan (03/27/2020 8:02 AM CDT): Encouraged patient to continue low fat/low chol diet. Continue exercise. Increase good fats in the diet. Monitor labs as needed. Stable with zetia and pravastatin Assessment & Plan (09/26/2019 7:39 AM FISHER TERRAPIN): Encouraged patient to continue low fat/low chol [...] change Assessment & Plan (08/15/2023 5:03 PM FISHER TERRAPIN): Patient is legally blind. Continue with Ophthalmology Assessment & Plan (04/08/2023 8:47 PM CDT): No change Assessment & Plan (03/27/2020 8:02 AM CDT): No change Assessment & Plan (09/26/2019 7:39 AM FISHER TERRAPIN): No change Assessment & Plan (05/28/2019 7:35 PM CDT): No change Cigarette smoker 05/20/2019 Assessment & Plan (08/11/2023 8:45 AM FISHER TERRAPIN): Encouraged smoking cessation. Discussed 3 minutes. Reviewed options for assistance with cessation. Reviewed mcfp sequela associated with smoking. Pt declines assistance at this time but may contact the office at anytime for further help as they desire. Assessment & Plan (04/08/2023 8:47 PM CDT): Encouraged smoking cessation. Discussed 3 minutes. Reviewed options for assistance with cessation. Reviewed parts counterman sequela associated with smoking. Pt declines assistance at this time but may contact the office at anytime for further help as they desire. Low-dose CT will be due in May. It is already scheduled Assessment & Plan (12/12/2022 9:42 PM CDT): Encouraged smoking cessation. Discussed 3 minutes. Reviewed options for assistance with cessation. Reviewed mcfp sequela associated with smoking. Pt declines assistance at this time but may contact the office at anytime for further help as they desire. Assessment & Plan (08/15/2022 6:44 PM FISHER TERRAPIN): Encouraged smoking cessation. Discussed 3 minutes. Reviewed options for assistance with cessation. Reviewed parts counterman sequela associated with smoking. Pt declines assistance at this time but may contact the office at anytime for further help as they desire. Assessment & Plan (05/09/2022 8:19 PM CDT): Encouraged smoking cessation. Discussed 3 minutes. Reviewed options for assistance with cessation. Reviewed mcfp sequela associated with smoking. Pt declines assistance at this time but may contact the office at anytime for further help as they desire. Assessment & Plan (08/01/2021 9:33 PM FISHER TERRAPIN): Encouraged smoking cessation. Discussed 3 minutes. Reviewed options for assistance with cessation. Reviewed mcfp sequela associated with smoking. Pt declines assistance at this time but may contact the office at anytime for further help as they desire. Assessment & Plan (05/17/2021 11:41 PM CDT): Encouraged smoking cessation. Discussed 3 minutes. Reviewed options for assistance with cessation. Reviewed mcfp sequela associated with smoking. Pt declines assistance at this time but may contact the office at anytime for further help as they desire. Assessment & Plan (03/12/2021 12:31 PM CDT): Encouraged smoking cessation. Discussed 3 minutes. Reviewed options for assistance with cessation. Reviewed mcfp sequela associated with smoking. He is slowing down. Offered assistance. May call if decides he wants help Assessment & Plan (07/29/2020 7:34 AM FISHER TERRAPIN): Encouraged smoking cessation. Discussed 3 minutes. Reviewed options for assistance with cessation. Reviewed parts counterman sequela associated with smoking. Pt declines assistance at this time but may contact the office at anytime for further help as they desire. Assessment & Plan (03/27/2020 8:02 AM CDT): Encouraged smoking cessation. Discussed 3 minutes. Reviewed options for assistance with cessation. Reviewed parts counterman sequela associated with smoking. Pt declines assistance at this time but may contact the office at anytime for further help as they desire. Assessment & Plan (09/26/2019 7:39 AM FISHER TERRAPIN): Encouraged smoking cessation. Discussed 3 minutes. Reviewed options for assistance with cessation. Reviewed mcfp sequela associated with smoking. Pt declines assistance at this time but may contact the office at anytime for further help as they desire. Assessment & Plan (07/14/2019 7:05 PM CDT): Encouraged smoking cessation. Discussed 3 minutes. Reviewed options for assistance with cessation. Reviewed mcfp sequela associated with smoking. Pt declines assistance [...] 05/20/2019 Assessment & Plan (11/19/2024 11:45 PM FISHER TERRAPIN): Pre-diabetes/hyperglycemia is a precursor to Dm. Stressed [...] diabetes. Assessment & Plan (11/24/2023 10:34 AM FISHER TERRAPIN): Pre-diabetes/hyperglycemia is a precursor to Dm. Stressed importance of working on diet (decrease your simple sugars and one carbohydrate with each meal) and increase you exercise to achieve weight loss and this will help prevent you from progressing to diabetes. Assessment & Plan (08/15/2023 5:03 PM FISHER TERRAPIN): Pre-diabetes/hyperglycemia is a precursor to Dm. Stressed [...] diabetes. Assessment & Plan (08/01/2021 9:33 PM FISHER TERRAPIN): Pre-diabetes/hyperglycemia is a precursor to Dm. Stressed [...] diabetes. Assessment & Plan (07/29/2020 7:34 AM FISHER TERRAPIN): Pre-diabetes is a precursor to Dm. Stressed [...] labs Assessment & Plan (09/26/2019 10:27 PM FISHER TERRAPIN): This is a significant, separately identifiable problem [...] 024 Assessment & Plan (11/24/2023 10:35 AM FISHER TERRAPIN): Encouraged healthy lifestyle, good nutrition and exercise. Encouraged Calcium and Vitamin D and weight bearing exercise for bone health. Reviewed immunizations Reviewed age appropirate screenings. Need for influenza vaccination 08/15/2023 11/24/2023 Assessment & Plan (08/15/2023 5:04 PM FISHER TERRAPIN): Flu vaccine updated in the office today BMI 22.0-22.9, adult 07/22/2023 024 Assessment & Plan (08/11/2023 8:12 AM FISHER TERRAPIN): Weight/BMI is in healthy range. Continue healthy [...] 04/03/2023 Assessment & Plan (08/15/2022 6:45 PM FISHER TERRAPIN): Flu updated in the office today BMI [...] test outpatient. Was referred to an outside marina porter. Encouraged to consider seeing a [facility] Medical group of cardiologists so [...] 022 Assessment & Plan (08/01/2021 7:28 AM FISHER TERRAPIN): Weight/BMI is in healthy range. Continue healthy lifestyle to maintain. Medicare annual wellness visit, subsequent 08/01/2021 08/15/2022 Assessment & Plan (08/01/2021 9:34 PM FISHER TERRAPIN): Encouraged healthy lifestyle, good nutrition and exercise. Encouraged Calcium and Vitamin D and weight bearing exercise for bone health. Reviewed immunizations. Reviewed age appropirate screenings. Medicare Wellness Documentation is completed within the chart Fatigue 05/17/2021 05/02/2022 Assessment & Plan (08/01/2021 9:34 PM FISHER TERRAPIN): Probably multifactorial. Check labs and followup to [...] 01/21/2021 Assessment & Plan (11/24/2023 10:34 AM FISHER TERRAPIN): Weight/BMI is in healthy range. Continue healthy [...] 05/02/2022 Assessment & Plan (07/29/2020 7:34 AM FISHER TERRAPIN): Probably multifactorial. Check labs and followup to re-evaluate Need for immunization against influenza 07/29/2020 11/24/2020 Assessment & Plan (07/29/2020 7:34 AM FISHER TERRAPIN): Updated in office today BMI 22.0-22.9, adult 03/27/2020 024 Assessment & Plan (05/20/2024 7:37 PM CDT): Weight/BMI is in healthy range. Continue healthy lifestyle to maintain. Assessment & Plan (07/29/2020 7:34 AM FISHER TERRAPIN): Weight/BMI is in healthy range. Continue healthy [...] 020 Assessment & Plan (09/26/2019 7:39 AM FISHER TERRAPIN): Weight/BMI is in healthy range. Continue healthy lifestyle to maintain. Annual physical exam 09/26/2019 020 Assessment & Plan (09/26/2019 7:40 AM FISHER TERRAPIN): Encouraged healthy lifestyle, good nutrition and exercise. Encouraged Calcium and Vitamin D and weight bearing exercise for bone health. Reviewed immunizations Reviewed age appropirate screenings. Influenza vaccine refused 09/26/2019 Assessment & Plan (09/26/2019 7:40 AM FISHER TERRAPIN): Encouraged vaccine. Reviewed risks/ benefits. Patient refuses and accepts risks. Esophagitis determined by endoscopy 05/20/2019 05/02/2022 Gastritis 05/20/2019 05/02/2022 Essential (primary) hypertension 05/20/2019 05/20/2024 Assessment & Plan (11/24/2023 10:34 AM FISHER TERRAPIN): Bp is stable/in acceptable range for any co-morbidities. Encouraged to limit sodium intake and exercise for weight control. Continue losartan 50 Assessment & Plan (08/15/2023 5:04 PM FISHER TERRAPIN): Bp is stable/in acceptable range for any co-morbidities. Encouraged to limit sodium intake and exercise for weight control. Continue per Dr. Curtis Assessment & Plan (08/11/2023 8:45 AM FISHER TERRAPIN): Bp is stable/in acceptable range for any [...] losartan Assessment & Plan (08/15/2022 6:44 PM FISHER TERRAPIN): Bp is stable/in acceptable range for any [...] 50 Assessment & Plan (08/01/2021 9:33 PM FISHER TERRAPIN): Bp is stable/in acceptable range for any [...] Losartan/HCTZ Assessment & Plan (07/29/2020 7:33 AM FISHER TERRAPIN): Bp is stable/in acceptable range for any co-morbidities. Encouraged to limit sodium intake and exercise for weight control. Losartan and HCTZ Assessment & Plan (03/27/2020 8:00 AM CDT): Bp is stable/in acceptable range for any co-morbidities. Encouraged to limit sodium intake and exercise for weight control. Continue losartan/HCTZ Assessment & Plan (09/26/2019 7:38 AM FISHER TERRAPIN): Bp is stable/in acceptable range for any [...] 01/21/2022 Assessment & Plan (08/01/2021 9:34 PM FISHER TERRAPIN): Persistent hiccups. Has consulted with multiple providers [...] omeprazole Assessment & Plan (07/29/2020 7:32 AM FISHER TERRAPIN): Continue per ENT/Pulm. He is responding to BID omeprazole. Will monitor Assessment & Plan (03/27/2020 7:59 AM CDT): Dr. Stokes started him on Pantoprazole. He hasn't noted much difference. Needs to followup to complete workup. Encouraged patient to call and make appointment. Assessment & Plan (09/26/2019 10:26 PM FISHER TERRAPIN): This is a significant, separately identifiable problem that was evaluated and managed on the same day as the wellness exam Less frequent than in the past. Continue the PPI and monitor Rx sent to pharmacy. Assessment & Plan (08/24/2019 9:04 AM FISHER TERRAPIN): Improving with the PPI. Continue PPI and [...] 2018 Assessment & Plan (08/24/2019 9:04 AM FISHER TERRAPIN): Encouraged vaccine. Reviewed risks/ benefits. Patient refuses [...] Care Team Description 12/29/2024 DEBBIE IP Outreach [facility] Accountable Care Organization [address] [place] [address] [place] 12/27/[address] [place] [phone] Nuris Berger PA 12/26/[address] [place] [phone] Nuris Berger PA 12/06/2024 9:30 AM CDT Office Visit [facility] Pulmonology [address] [facility] [address] [place] [phone] Tasia Hoffman MD Chronic obstructive pulmonary disease, unspecified COPD type (HCC) (Primary Dx); Mild persistent asthma without complication; Non-seasonal allergic rhinitis due to other allergic trigger; Nicotine dependence, cigarettes, in remission 10/30/2024 9:00 AM FISHER TERRAPIN Office Visit [facility] [address] [place] [address] [address] [place] [address] Nuris Berger PA Annual physical [...] Name Comments Blindness Father Heart attack Father [place] Heart disease Father No Known Problems Mother Relation Name Status Comments Father Mother Social History Tobacco Use Types Packs/Day Years Used Date Smoking Tobacco: Former Cigarettes 0.8 40 0 09/1981 - 09/2021 Smokeless Tobacco: Never Tobacco Cessation:Counseling Given: Not Answered Alcohol Use Standard Drinks/Week Comments Yes 0 (1 standard drink = 0.6 oz pur e alcohol) social [employer] Utilities Answer Date Recorded In the past 12 months has [employer], oil, or water [employer] threatened to shut off services in your [...] week 12/03/2023 How often do you attend [facility] or episcopalian services? Patient declined 12/03/2023 Do you belong to any clubs o r organizations such as bahai groups, unions, fraternal or athletic groups, or [...] on file Legal Sex Male 12:22 AM FISHER TERRAPIN Gender Identity Not on file Sexual Orientation [...] Read Routine (OP Routine) 10/03/2024 9:25 AM FISHER TERRAPIN Pulmonary nodules PSA SCREEN Routine 12/16/2022 12:39 PM CDT Prostate cancer screening HEPATITIS PANEL, ACUTE Routine 05/03/2022 5:40 AM CDT HM COLONOSCOPY Routine 07/14/2021 from Last 3 Months or Most Recently Relevant to Health Maintenance Results * CT Chest WO Contrast F/U Lung Screen Protocol (10/03/2024 9:25 AM FISHER TERRAPIN) Anatomical Region Laterality Modality Chest N/A Computed Tomogra phy 10/03/2024 7:11 PM FISHER TERRAPIN Narrative 10/03/2024 7:17 PM FISHER TERRAPIN EXAM DESCRIPTION: CT CHEST WO CONTRAST F/U [...] Estuardo Ortiz M.D. KT T: Report ID: [id number] Reading Location: [id number] Tasia Hoffman MD IMG CT PROCEDURES Final [...] LAB BLOOD ORDERABLES Final Result ANABELA SOLIS [address] [facility] Department [place] [address] * Hepatitis panel, acute (05/03/2022 [...] - GENERAL OR DERABLES Final Result ANABELA [address] [facility] Department [place] [address] * (ABNORMAL) HM COLONOSCOPY (07/14/2021) Jame Mg MD HEALTH MAINTENANCE Edited Result - Final from Last 3 Months or Most Recently Relevant to Health Maintenance Insurance [employer] MEDICARE GOLD AETNA MEDICARE GOLD AETNA MEDICARE GOLD Advance Directives For more information, please contact: [phone] * Full Code (Latest Code Status on [...] 10:34 PM 11/16/2022 9:56 PM Care Teams Electronic Development Technician Relationship Specialty Start Date End Date Nuris Berger PA [address] [place] [address] PCP - General Internal Medicine 12/28/18 Jonatan Stokes MD [address] [place] [address] Consulting Physician Otolaryngology 03/27/20 Irma Bajwa MD [address] [facility] [place] [address] Consulting Physician Neurology 05/07/22
--- OUTSIDE RECORDS SUMMARY | 2025-01-10 19:46 | XMS_ITS | Clinical Summary ---
Author Organization [facility] Address [address] [place] [address] Care Team Providers Care Shipper Name Role Phone Nuris Berger PA-C Primary Care Provider [phone] Source Comments [facility],non-owned Affiliates and Associated Physician Practices is amultiple site organization consisting of ambulatory clinics and hospital sitesin [place], [place], [place] and [place]. This disclosure is being madepursuant to the Care Everywhere program and may not contain all information available regarding this patient. Last updated 18.[facility] Allergies Active Allergy Reactions Criticality Noted Date [...] tablet 06/17/2023 Active ergocalciferol (Drisdol) 1.25 MG (61534 UT) capsule Take 1 (one) capsule by [...] 11 07/21/2024 Active trimethoprim-po lymyxin B (Polytrim) 73819-9.1 UNIT/ML-% ophthalmic solution Instill 1 (one) drop [...] Reviewed options for assistance with cessation. Reviewed joint terminal attack controller sequela associated with smoking. Pt declines assistance [...] polyp 05/20/2019 Overview (12/24/2020): Colonoscopy 01/29/2012 at [facility]--->2021 Last Assessment & Plan: Recvd [...] Description 12/13/2024 9:15 AM CDT Office Visit [facility] - Ophthalmology [address] [place] [phone] Louis Hansen MD H/O cornea transplant (Primary Dx); Pseudophakia 12/13/2024 Travel 12/01/2024 8:30 AM CDT Clinical Support [facility] - Ophthalmology [address] [place] [phone] Tyrel Velez MD 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 (Primary Dx) 12/01/2024 8:25 AM CDT Clinical Support [facility] - Ophthalmology [address] [place] [phone] Tyrel Velez MD 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 (Primary Dx) 12/01/2024 8:20 AM CDT Office Visit [facility] - Ophthalmology [address] [place] [phone] Tyrel Velez MD 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 (Primary Dx); H/O cornea transplant; Central corneal opacity, left 12/01/2024 8:15 AM CDT Clinical Support [facility] - Ophthalmology [address] [place] [phone] Tyrel Velez MD 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 (Primary Dx) 12/01/2024 Travel from Last 3 Months Immunizations Immunization Administration Dates Next Due MedDay primary monoval ent 12+ yr 0.3mL Purple [...] Comments Blood Pressure 128/70 08/26/2023 12:43 PM BIOINFORMATICS ENGINEER Pulse 65 08/26/2023 12:43 PM BIOINFORMATICS ENGINEER Temperature 35.9 C (96.7 F) 08/26/2023 12:34 PM BIOINFORMATICS ENGINEER Respiratory Rate 14 08/26/2023 12:43 PM BIOINFORMATICS ENGINEER Oxygen Saturation 98% 08/26/2023 12:34 PM BIOINFORMATICS ENGINEER Inhaled Oxygen Concentration - - Weight 64.9 kg (143 lb) 08/26/2023 9:01 AM BIOINFORMATICS ENGINEER Height 172.7 cm (5' 8 ) 08/26/2023 9:01 AM BIOINFORMATICS ENGINEER Body Mass Index 21.74 08/26/2023 9:01 AM BIOINFORMATICS ENGINEER Plan of Treatment Upcoming Encounters Date Type Department Care Team (Late st Contact Info) Description 04/18/2025 9:15 AM CDT Office Visit [facility] - Ophthalmology [address] [place] [phone] Louis Hansen MD [address] [place] [address] [place] [phone] 08/07/2025 8:40 AM BIOINFORMATICS ENGINEER Office Visit [facility] - Ophthalmology [address] [place] [phone] Tyrel Velez MD [address] [place] [phone] Health Maintenance Due Date Last Done Comments [...] this topic Medical Devices Implanted Type Area Guitar Repairer Device Identifier Shelf Expiration Date Model / Serial / Lot Drain Glcm Thk.9mm Blnt Tpr [facility] Flxb - [id number] Implanted:Qty: 1 on 05/04/2018 by Tyrel Velez MD at [facility] Left: Eye [facility] [place] 03/15/2020 7 / [id number] / [id number] Graft Tissue Ttplst Sclr .8x.5cm Lopro - [id number] Implanted:Qty: 1 on 05/04/2018 by Tyrel Velez MD at [facility] Left: Eye [employer] 01/17/2023 [id number] / [id number] / [id number] Impl Opth 250sq Mm Brvldt Magaly 1 Qdrnt - [id number] Implanted:Qty: 1 on 06/16/2023 by Tyrel Velez MD at [facility] Left: Eye [employer] 01/09/2024 [id number] / [id number] / Graft Tissue Ttpl Ioptch Sclr .8x.5cm - [id number] Implanted:Qty: 1 on 06/16/2023 by Tyrel Velez MD at [facility] Left: Eye [employer] 09/19/2027 [id number] / [id number] / Graft Tissue Ttpl Ioptch Sclr .8x.5cm - [id number] Implanted:Qty: 1 on 06/16/2023 by Tyrel Velez MD at [facility] Left: Eye [employer] 09/19/2027 [id number] / [id number] / J Luis Cornea - [id number] Implanted:Qty: 1 on 08/26/2023 by Louis Hansen MD at [facility] Left: Eye [employer] [facility] 09/05/2023 [id number] / [id number] / [id number] Description:Product Numb:[id number] EXP:09-05-2023 DIN:[id number] Insurance [employer] MEDICARE ADV A[employer] Advance Directives * Full Code (Latest Code Status on File) Date Activated Date Inactivated Comments 05/04/2018 11:35 AM 05/04/2018 1:21 PM * Full Code Date Activated Date Inactivated Comments 05/04/2018 7:43 AM 05/04/2018 11:35 AM Care Teams Shipper Relationship Specialty Start Date End Date Nuris Berger PA-C PCP - General 02/13/20
--- OUTSIDE RECORDS SUMMARY | 2025-01-10 19:46 | XMS_ITS | Referral Summary ---
Author Organization [facility] [facility] Address [address] [place] [address] Care Team Providers Care Leather Piece Inspector Name Role Phone Nuris Berger Primary Care Provider [phone] Jonatan Stokes MD Unavailable [phone] Irma Bajwa MD Unavailable [phone] Encounters Date Type Department Care Team Description 12/29/[address] [facility] Accountable Care Organization [address] [place] [address] Anahi Phipps MA 12/27/[address] [place] [phone] Nuris Berger PA 12/26/[address] [place] [phone] Nuris Berger PA 12/06/2024 9:30 AM CDT Office Visit [facility] Pulmonology [address] [place] [address] [place] [phone] Tasia Hoffman MD Chronic obstructive pulmonary disease, unspecified COPD type (HCC) (Primary Dx); Mild persistent asthma without complication; Non-seasonal allergic rhinitis due to other allergic trigger; Nicotine dependence, cigarettes, in remission 10/30/2024 9:00 AM FIELD CONTACT TECHNICIAN Office Visit [facility] Family Medicine [address] [facility] [address] [place] [address] Nuris Berger PA Annual physical [...] 11/19/2024 Assessment & Plan (11/19/2024 11:45 PM FIELD CONTACT TECHNICIAN): Encouraged healthy lifestyle, good nutrition and exercise. Encouraged Calcium and Vitamin D and weight bearing exercise for bone health. Reviewed immunizations Reviewed age appropirate screenings. BMI 23.0-23.9, adult 06/20/2024 Assessment & Plan (10/30/2024 8:57 AM FIELD CONTACT TECHNICIAN): Weight/BMI is in healthy range. Continue healthy lifestyle to maintain. Assessment & Plan (06/20/2024 7:44 AM CDT): Weight/BMI is in healthy range. Continue healthy lifestyle to maintain. Vitamin D deficiency 11/24/2023 Assessment & Plan (11/19/2024 11:45 PM FIELD CONTACT TECHNICIAN): Supplement Assessment & Plan (05/20/2024 7:36 PM CDT): Supplement Fatigue 12/12/2022 Assessment & Plan (05/20/2024 7:37 PM CDT): Probably multifactorial. Check labs and followup to re-evaluate Assessment & Plan (11/24/2023 10:35 AM FIELD CONTACT TECHNICIAN): Probably multifactorial. Check labs and followup to [...] 01/16/2022 Assessment & Plan (11/19/2024 11:44 PM FIELD CONTACT TECHNICIAN): Chronic hiccups for 5+ years Has been [...] to the ER. ER recommended referral to [facility] but patient states he can't go to [...] weeks Assessment & Plan (11/24/2023 10:34 AM FIELD CONTACT TECHNICIAN): Patient has persistent chronic hiccups that come [...] monitor Assessment & Plan (08/15/2023 5:01 PM FIELD CONTACT TECHNICIAN): Chronic hiccups for years. Has tried multiple interventions along with multiple workups from specialists including Neurology pulmonology and GI. Continue current regimen. Stressed importance of limiting water intake when he has the hiccups spells as this has been leading to hyponatremia requiring hospitalization. Assessment & Plan (08/11/2023 8:45 AM FIELD CONTACT TECHNICIAN): Patient with chronic hiccups. Have had difficulty [...] levels. Assessment & Plan (08/15/2022 6:45 PM FIELD CONTACT TECHNICIAN): Patient has consulted with most multiple specialists [...] hiccups. Assessment & Plan (08/15/2023 5:02 PM FIELD CONTACT TECHNICIAN): Chronic hiccups for years. Has tried multiple interventions along with multiple workups from specialists including Neurology pulmonology and GI. Continue current regimen. Stressed importance of limiting water intake when he has the hiccups spells as this has been leading to hyponatremia requiring hospitalization. Assessment & Plan (08/11/2023 8:46 AM FIELD CONTACT TECHNICIAN): Hyponatremia secondary to water intake with chronic [...] 07/14/2019 Assessment & Plan (11/19/2024 11:44 PM FIELD CONTACT TECHNICIAN): Continue PPI p.r.n. Assessment & Plan (05/20/2024 7:35 PM CDT): Continue pantoprazole p.r.n. Assessment & Plan (11/24/2023 10:33 AM FIELD CONTACT TECHNICIAN): Continue pantoprazole p.r.n. Assessment & Plan (04/08/2023 8:48 PM CDT): Continue PPI p.r.n. Assessment & Plan (12/12/2022 9:43 PM CDT): Insert PPI Assessment & Plan (08/15/2022 6:45 PM FIELD CONTACT TECHNICIAN): Continue PPI prn Assessment & Plan (02/09/2021 8:17 PM CDT): Continue PPI Assessment & Plan (07/29/2020 7:33 AM FIELD CONTACT TECHNICIAN): Continue PPI Assessment & Plan (03/27/2020 8:01 AM CDT): Dr. Stokes changed him from omeprazole to Pantoprazole for the hiccups. Pt hasn't noted any difference in GERD sxs (still well controlled) or hiccups. Assessment & Plan (09/26/2019 7:38 AM FIELD CONTACT TECHNICIAN): Continue PPI Assessment & Plan (07/14/2019 8:46 AM CDT): Discussed GERD at length including anatomy, behavioral changes (raise HOB, meal timings), dietary changes and medication options. Reviewed risks, benefits alternatives, side effects and proper use. Followup if sxs worsen or has hematochezia or hematemeis. Start PPI Chronic obstructive pulmonary disease 06/26/2019 Overview (06/26/2019): Noted on 06/2019 LDCT Assessment & Plan (11/19/2024 11:44 PM FIELD CONTACT TECHNICIAN): Patient with allergies and COPD. Continue Singulair albuterol and Symbicort. Follows with Dr. Valdes. Assessment & Plan (05/20/2024 7:35 PM CDT): Continue per Dr. Valdes. Continue with his Symbicort and albuterol inhalers. Low-dose CT will be scheduled for June 16, 2024. Assessment & Plan (11/24/2023 10:33 AM FIELD CONTACT TECHNICIAN): COPD. Continue per Dr. Hammond his value analysis coordinator Continue Symbicort Singulair and albuterol p.r.n. Assessment & Plan (04/08/2023 8:48 PM CDT): Encouraged smoking cessation. Continue per Dr. Hammond pulmonology. He is on albuterol Symbicort and Singulair Assessment & Plan (12/12/2022 9:43 PM CDT): Stop smoking. Continue per Pulmonary. Continue Symbicort Singulair and albuterol. Continue monitoring low-dose CTs as instructed Assessment & Plan (08/15/2022 6:44 PM FIELD CONTACT TECHNICIAN): Stop smoking. Continue current plan per Pulmonary Assessment & Plan (08/01/2021 9:34 PM FIELD CONTACT TECHNICIAN): Continue per Pulmonary Dr. Valdes Assessment & Plan (02/09/2021 8:15 PM CDT): Stop smoking. Continue per Dr. Valdes Assessment & Plan (07/29/2020 7:32 AM FIELD CONTACT TECHNICIAN): Continue per Pulm Assessment & Plan (03/27/2020 8:00 AM CDT): Stop smoking. He declines starting inhalers or referral to Pulmonary Assessment & Plan (09/26/2019 10:27 PM FIELD CONTACT TECHNICIAN): This is a significant, separately identifiable problem [...] order Assessment & Plan (07/29/2020 7:33 AM FIELD CONTACT TECHNICIAN): Needs to repeat ---Dr. Valdes has already ordered Assessment & Plan (03/27/2020 8:00 AM CDT): 06/2019 LDCT Several 2-3mm nodules, probable benign LungRADs 2 --- repeat 06/2020 Assessment & Plan (09/26/2019 10:26 PM FIELD CONTACT TECHNICIAN): 06/2019 LDCT Several 2-3mm nodules, probable benign LungRADs 2 --- repeat 06/2020 Hyperplastic rectal polyp 05/20/2019 Overview (05/20/2019): Colonoscopy 01/29/2012 at [facility]--->2021 Assessment & Plan (05/28/2019 7:33 PM CDT): Recvd colonoscopy and due to repeat in 2021 Hiatal hernia 05/20/2019 Mixed hyperlipidemia 05/20/2019 Assessment & Plan (11/19/2024 11:45 PM FIELD CONTACT TECHNICIAN): Encouraged patient to follow low fat/low chol [...] 80 Assessment & Plan (11/24/2023 10:34 AM FIELD CONTACT TECHNICIAN): Encouraged patient to follow low fat/low chol diet like the Mediterranean diet. Increase good fats in the diet. Increase exercise. Monitor labs as needed. Continue pravastatin 80 Assessment & Plan (08/15/2023 5:03 PM FIELD CONTACT TECHNICIAN): Encouraged patient to follow low fat/low chol [...] Zetia Assessment & Plan (08/01/2021 9:33 PM FIELD CONTACT TECHNICIAN): Encouraged patient to follow fat/low chol diet [...] statin Assessment & Plan (07/29/2020 7:34 AM FIELD CONTACT TECHNICIAN): Encouraged patient to follow fat/low chol diet like the Mediterranean diet. Increase good fats in the diet. Increase exercise. Monitor labs as needed. Assessment & Plan (03/27/2020 8:02 AM CDT): Encouraged patient to continue low fat/low chol diet. Continue exercise. Increase good fats in the diet. Monitor labs as needed. Stable with zetia and pravastatin Assessment & Plan (09/26/2019 7:39 AM FIELD CONTACT TECHNICIAN): Encouraged patient to continue low fat/low chol [...] change Assessment & Plan (08/15/2023 5:03 PM FIELD CONTACT TECHNICIAN): Patient is legally blind. Continue with Ophthalmology Assessment & Plan (04/08/2023 8:47 PM CDT): No change Assessment & Plan (03/27/2020 8:02 AM CDT): No change Assessment & Plan (09/26/2019 7:39 AM FIELD CONTACT TECHNICIAN): No change Assessment & Plan (05/28/2019 7:35 PM CDT): No change Cigarette smoker 05/20/2019 Assessment & Plan (08/11/2023 8:45 AM FIELD CONTACT TECHNICIAN): Encouraged smoking cessation. Discussed 3 minutes. Reviewed options for assistance with cessation. Reviewed long winder tender sequela associated with smoking. Pt declines assistance at this time but may contact the office at anytime for further help as they desire. Assessment & Plan (04/08/2023 8:47 PM CDT): Encouraged smoking cessation. Discussed 3 minutes. Reviewed options for assistance with cessation. Reviewed long winder tender sequela associated with smoking. Pt declines assistance at this time but may contact the office at anytime for further help as they desire. Low-dose CT will be due in May. It is already scheduled Assessment & Plan (12/12/2022 9:42 PM CDT): Encouraged smoking cessation. Discussed 3 minutes. Reviewed options for assistance with cessation. Reviewed long winder tender sequela associated with smoking. Pt declines assistance at this time but may contact the office at anytime for further help as they desire. Assessment & Plan (08/15/2022 6:44 PM FIELD CONTACT TECHNICIAN): Encouraged smoking cessation. Discussed 3 minutes. Reviewed options for assistance with cessation. Reviewed retirement sequela associated with smoking. Pt declines assistance at this time but may contact the office at anytime for further help as they desire. Assessment & Plan (05/09/2022 8:19 PM CDT): Encouraged smoking cessation. Discussed 3 minutes. Reviewed options for assistance with cessation. Reviewed long winder tender sequela associated with smoking. Pt declines assistance at this time but may contact the office at anytime for further help as they desire. Assessment & Plan (08/01/2021 9:33 PM FIELD CONTACT TECHNICIAN): Encouraged smoking cessation. Discussed 3 minutes. Reviewed options for assistance with cessation. Reviewed long winder tender sequela associated with smoking. Pt declines assistance at this time but may contact the office at anytime for further help as they desire. Assessment & Plan (05/17/2021 11:41 PM CDT): Encouraged smoking cessation. Discussed 3 minutes. Reviewed options for assistance with cessation. Reviewed long winder tender sequela associated with smoking. Pt declines assistance at this time but may contact the office at anytime for further help as they desire. Assessment & Plan (03/12/2021 12:31 PM CDT): Encouraged smoking cessation. Discussed 3 minutes. Reviewed options for assistance with cessation. Reviewed retirement sequela associated with smoking. He is slowing down. Offered assistance. May call if decides he wants help Assessment & Plan (07/29/2020 7:34 AM FIELD CONTACT TECHNICIAN): Encouraged smoking cessation. Discussed 3 minutes. Reviewed options for assistance with cessation. Reviewed long winder tender sequela associated with smoking. Pt declines assistance at this time but may contact the office at anytime for further help as they desire. Assessment & Plan (03/27/2020 8:02 AM CDT): Encouraged smoking cessation. Discussed 3 minutes. Reviewed options for assistance with cessation. Reviewed long winder tender sequela associated with smoking. Pt declines assistance at this time but may contact the office at anytime for further help as they desire. Assessment & Plan (09/26/2019 7:39 AM FIELD CONTACT TECHNICIAN): Encouraged smoking cessation. Discussed 3 minutes. Reviewed options for assistance with cessation. Reviewed retirement sequela associated with smoking. Pt declines assistance at this time but may contact the office at anytime for further help as they desire. Assessment & Plan (07/14/2019 7:05 PM CDT): Encouraged smoking cessation. Discussed 3 minutes. Reviewed options for assistance with cessation. Reviewed long winder tender sequela associated with smoking. Pt declines assistance [...] 05/20/2019 Assessment & Plan (11/19/2024 11:45 PM FIELD CONTACT TECHNICIAN): Pre-diabetes/hyperglycemia is a precursor to Dm. Stressed [...] diabetes. Assessment & Plan (11/24/2023 10:34 AM FIELD CONTACT TECHNICIAN): Pre-diabetes/hyperglycemia is a precursor to Dm. Stressed importance of working on diet (decrease your simple sugars and one carbohydrate with each meal) and increase you exercise to achieve weight loss and this will help prevent you from progressing to diabetes. Assessment & Plan (08/15/2023 5:03 PM FIELD CONTACT TECHNICIAN): Pre-diabetes/hyperglycemia is a precursor to Dm. Stressed [...] diabetes. Assessment & Plan (08/01/2021 9:33 PM FIELD CONTACT TECHNICIAN): Pre-diabetes/hyperglycemia is a precursor to Dm. Stressed [...] diabetes. Assessment & Plan (07/29/2020 7:34 AM FIELD CONTACT TECHNICIAN): Pre-diabetes is a precursor to Dm. Stressed [...] labs Assessment & Plan (09/26/2019 10:27 PM FIELD CONTACT TECHNICIAN): This is a significant, separately identifiable problem [...] 11/24/2023 Assessment & Plan (11/24/2023 10:35 AM FIELD CONTACT TECHNICIAN): Encouraged healthy lifestyle, good nutrition and exercise. Encouraged Calcium and Vitamin D and weight bearing exercise for bone health. Reviewed immunizations Reviewed age appropirate screenings. Need for influenza vaccination 08/15/2023 11/24/2023 Assessment & Plan (08/15/2023 5:04 PM FIELD CONTACT TECHNICIAN): Flu vaccine updated in the office today BMI 22.0-22.9, adult 07/22/2023 Assessment & Plan (08/11/2023 8:12 AM FIELD CONTACT TECHNICIAN): Weight/BMI is in healthy range. Continue healthy [...] 04/03/2023 Assessment & Plan (08/15/2022 6:45 PM FIELD CONTACT TECHNICIAN): Flu updated in the office today BMI [...] test outpatient. Was referred to an outside fire technician. Encouraged to consider seeing a [facility] Medical group of cardiologists so all of his providers are in the same system. He is in agreement. Referral made to Dr. Eduardo as he has multiple risk factors. BMI 23.0-23.9, adult 01/21/2022 022 Assessment & Plan (01/21/2022 11:10 AM CDT): Weight/BMI is in healthy range. Continue healthy lifestyle to maintain. BMI 21.0-21.9, adult 08/01/2021 022 Assessment & Plan (08/01/2021 7:28 AM FIELD CONTACT TECHNICIAN): Weight/BMI is in healthy range. Continue healthy lifestyle to maintain. Medicare annual wellness visit, subsequent 08/01/2021 08/15/2022 Assessment & Plan (08/01/2021 9:34 PM FIELD CONTACT TECHNICIAN): Encouraged healthy lifestyle, good nutrition and exercise. Encouraged Calcium and Vitamin D and weight bearing exercise for bone health. Reviewed immunizations. Reviewed age appropirate screenings. Medicare Wellness Documentation is completed within the chart Fatigue 05/17/2021 05/02/2022 Assessment & Plan (08/01/2021 9:34 PM FIELD CONTACT TECHNICIAN): Probably multifactorial. Check labs and followup to [...] 024 Assessment & Plan (11/24/2023 10:34 AM FIELD CONTACT TECHNICIAN): Weight/BMI is in healthy range. Continue healthy [...] 05/02/2022 Assessment & Plan (07/29/2020 7:34 AM FIELD CONTACT TECHNICIAN): Probably multifactorial. Check labs and followup to re-evaluate Need for immunization against influenza 07/29/2020 11/24/2020 Assessment & Plan (07/29/2020 7:34 AM FIELD CONTACT TECHNICIAN): Updated in office today BMI 22.0-22.9, adult 03/27/2020 024 Assessment & Plan (05/20/2024 7:37 PM CDT): Weight/BMI is in healthy range. Continue healthy lifestyle to maintain. Assessment & Plan (07/29/2020 7:34 AM FIELD CONTACT TECHNICIAN): Weight/BMI is in healthy range. Continue healthy [...] 020 Assessment & Plan (09/26/2019 7:39 AM FIELD CONTACT TECHNICIAN): Weight/BMI is in healthy range. Continue healthy lifestyle to maintain. Annual physical exam 09/26/2019 020 Assessment & Plan (09/26/2019 7:40 AM FIELD CONTACT TECHNICIAN): Encouraged healthy lifestyle, good nutrition and exercise. Encouraged Calcium and Vitamin D and weight bearing exercise for bone health. Reviewed immunizations Reviewed age appropirate screenings. Influenza vaccine refused 09/26/2019 Assessment & Plan (09/26/2019 7:40 AM FIELD CONTACT TECHNICIAN): Encouraged vaccine. Reviewed risks/ benefits. Patient refuses and accepts risks. Esophagitis determined by endoscopy 05/20/2019 05/02/2022 Gastritis 05/20/2019 05/02/2022 Essential (primary) hypertension 05/20/2019 05/20/2024 Assessment & Plan (11/24/2023 10:34 AM FIELD CONTACT TECHNICIAN): Bp is stable/in acceptable range for any co-morbidities. Encouraged to limit sodium intake and exercise for weight control. Continue losartan 50 Assessment & Plan (08/15/2023 5:04 PM FIELD CONTACT TECHNICIAN): Bp is stable/in acceptable range for any co-morbidities. Encouraged to limit sodium intake and exercise for weight control. Continue per Dr. Curtis Assessment & Plan (08/11/2023 8:45 AM FIELD CONTACT TECHNICIAN): Bp is stable/in acceptable range for any [...] losartan Assessment & Plan (08/15/2022 6:44 PM FIELD CONTACT TECHNICIAN): Bp is stable/in acceptable range for any [...] 50 Assessment & Plan (08/01/2021 9:33 PM FIELD CONTACT TECHNICIAN): Bp is stable/in acceptable range for any [...] Losartan/HCTZ Assessment & Plan (07/29/2020 7:33 AM FIELD CONTACT TECHNICIAN): Bp is stable/in acceptable range for any co-morbidities. Encouraged to limit sodium intake and exercise for weight control. Losartan and HCTZ Assessment & Plan (03/27/2020 8:00 AM CDT): Bp is stable/in acceptable range for any co-morbidities. Encouraged to limit sodium intake and exercise for weight control. Continue losartan/HCTZ Assessment & Plan (09/26/2019 7:38 AM FIELD CONTACT TECHNICIAN): Bp is stable/in acceptable range for any [...] 01/21/2022 Assessment & Plan (08/01/2021 9:34 PM FIELD CONTACT TECHNICIAN): Persistent hiccups. Has consulted with multiple providers [...] omeprazole Assessment & Plan (07/29/2020 7:32 AM FIELD CONTACT TECHNICIAN): Continue per ENT/Pulm. He is responding to BID omeprazole. Will monitor Assessment & Plan (03/27/2020 7:59 AM CDT): Dr. Stokes started him on Pantoprazole. He hasn't noted much difference. Needs to followup to complete workup. Encouraged patient to call and make appointment. Assessment & Plan (09/26/2019 10:26 PM FIELD CONTACT TECHNICIAN): This is a significant, separately identifiable problem that was evaluated and managed on the same day as the wellness exam Less frequent than in the past. Continue the PPI and monitor Rx sent to pharmacy. Assessment & Plan (08/24/2019 9:04 AM FIELD CONTACT TECHNICIAN): Improving with the PPI. Continue PPI and [...] 2018 Assessment & Plan (08/24/2019 9:04 AM FIELD CONTACT TECHNICIAN): Encouraged vaccine. Reviewed risks/ benefits. Patient refuses [...] = 0.6 oz pur e alcohol) social [employer] Answer Date Recorded In the past 12 months has [employer], [employer], oil, or water [employer] threatened to shut off services in your [...] often do you attend chur ch or roman catholic services? Patient declined 12/03/2023 Do you belong to any clubs o r organizations such as yarsanism groups, unions, fraternal or athletic groups, or [...] place to sleep or slept in a senior care (including now)? No 12/03/2023 Personal Safety Answer Date Recorded Have you ever been in or are you currently in a harmful physical or emotional relationship or is someone making you feel afraid or unsafe? Denies 08/01/2024 Sex and Gender Information Value Date Recorded Sex Assigned at Not on file Legal Sex Male 12:22 AM FIELD CONTACT TECHNICIAN Gender Identity Not on file Sexual Orientation [...] Read Routine (OP Routine) 10/03/2024 9:25 AM FIELD CONTACT TECHNICIAN Pulmonary nodules PSA SCREEN Routine 12/16/2022 12:39 PM CDT Prostate cancer screening HEPATITIS PANEL, ACUTE Routine 05/03/2022 5:40 AM CDT HM COLONOSCOPY Routine 07/14/2021 from Last 3 Months or Most Recently Relevant to Health Maintenance Results * CT Chest WO Contrast F/U Lung Screen Protocol (10/03/2024 9:25 AM FIELD CONTACT TECHNICIAN) Anatomical Region Laterality Modality Chest N/A Computed Tomogra phy 10/03/2024 7:11 PM FIELD CONTACT TECHNICIAN Narrative 10/03/2024 7:17 PM FIELD CONTACT TECHNICIAN EXAM DESCRIPTION: CT CHEST WO CONTRAST F/U [...] Estuardo Ortiz M.D. KT T: Report ID: [id number] Reading Location: [place] [address] us Tasia Hoffman MD IMG CT PROCEDURES [...] LAB BLOOD ORDERABLES Final Result [facility] [address] [facility] Department [place] [address] * Hepatitis panel, acute (05/03/2022 5:40 AM CDT) Hep A IgM Nonreactive Nonreactive [facility] Comment: Interpretive Data: If Hep A IgM Ab is reported as Equivocal, a new sample should be drawn in two weeks for testing. Current interpretive data was last revised on 19. Hep B core IgM Nonreactive Nonreactive [facility] Comment: Interpretive Data If HepB Core IgM Ab is reported as Equivocal, a new sample should be drawn in two weeks for testing. Current interpretive data was last revised on 19. Hep C Ab Nonreactive Nonreactive [facility] Comment: Interpretive Data Nonreactive: Antibodies to HCV [...] last revised on 2019. HepBsAg Nonreactive Nonreactive [facility] Blood 05/03/2022 5:40 AM CDT 05/03/2022 6:36 AM CDT Pamela Gongora DO LAB MICROBIOLOGY - GENERAL OR DERABLES Final Result Performing Organization Address [facility]/State/ZIP Co de Phone Number [facility] [address] [facility] [place] [address] * (ABNORMAL) COLONOSCOPY (07/14/2021) Jame Mg MD HEALTH MAINTENANCE Edited Result - Final from Last 3 Months or Most Recently Relevant to Health Maintenance Insurance AET MEDICARE [employer]OLD AET MEDICARE [facility] AETNA MEDICARE [facility] Advance Directives For more information, please contact: [phone] * Full Code (Latest Code Status on [...] 10:34 PM 11/16/2022 9:56 PM Care Teams Leather Piece Inspector Relationship Specialty Start Date End Date Nuris Berger PA [address] [facility] [address] [place] [address] PCP - General Internal Medicine 12/28/18 Jonatan Stokes MD [address] [place] [address] Consulting Physician Otolaryngology 03/27/20 Irma Bajwa MD [address] [place] [address] Consulting Physician Neurology 05/07/22
--- OUTSIDE RECORDS SUMMARY | 2025-01-10 19:46 | XMS_ITS | Clinical Summary ---
Author Organization [facility] Address [facility] [place] [address] Care Team Providers Care Curriculum And Instruction Specialist Name Role Phone Nuris Berger Primary Care Provider [phone] Allergies No known active allergies Medications albuterol [...] Comments Blood Pressure 120/62 09/04/2021 8:52 AM CHILD AND ADOLESCENT PSYCHOLOGIST Pulse 82 09/04/2021 8:52 AM CHILD AND ADOLESCENT PSYCHOLOGIST Temperature 36.3 C (97.4 F) 09/04/2021 8:52 AM CHILD AND ADOLESCENT PSYCHOLOGIST Respiratory Rate 16 09/04/2021 8:52 AM CHILD AND ADOLESCENT PSYCHOLOGIST Oxygen Saturation 97% 09/04/2021 8:52 AM CHILD AND ADOLESCENT PSYCHOLOGIST Inhaled Oxygen Concentration - - Weight 64.4 kg (142 lb) 09/04/2021 8:52 AM CHILD AND ADOLESCENT PSYCHOLOGIST Height 172.7 cm (5' 8 ) 09/04/2021 8:52 AM CHILD AND ADOLESCENT PSYCHOLOGIST Body Mass Index 21.59 09/04/2021 8:52 AM CHILD AND ADOLESCENT PSYCHOLOGIST Plan of Treatment Health Maintenance Due Date [...] complete this topic Insurance [employer] Care Teams Curriculum And Instruction Specialist Relationship Specialty Start Date End Date Nuris Berger PA [address] [place], [place] [id number] PCP - General PHYSICIAN COMMISSIONED FIRE OFFICER 06/09/21
[2025-01-10 20:07] LABS: Basophils Percent Auto 0.4 % (0.2-1.2); Eosinophils Absolute Auto 0.2 K/mm3 (0-0.3); Eosinophils Percent Auto 1.8 % (0-4.4); Hematocrit 30.5 % (42.0-52.0); Hemoglobin 10.4 g/dL (14.0-18.0); Immature Granulocyte Absolute 0.03 K/mm3 (0.00-0.031); Immature Granulocyte Percent A 0.3 % (0-0.5); Lymphocytes Percent Auto 11.9 % (18.3-44.2); Mean Corpuscular HGB Conc 34.1 g/dl (32-36); Mean Corpuscular Hemoglobin 29.3 pg (26-34); Mean Corpuscular Volume 85.9 fl (80-100); Mean Platelet Volume 11.9 fl (7.4-10.4); Monocytes Absolute Auto 0.5 K/mm3 (0.1-0.6); Monocytes Percent Auto 4.2 % (2.6-8.5); Neutrophils Absolute Auto 8.9 K/mm3 (1.3-6.7); Neutrophils Percent Auto 81.4 % (45.5-73.1); Platelet Count Result 230 k/mm3 (150-375); Red Blood Count 3.55 M/mm3 (4.6-6.20); Red Cell Distribution Width 12.6 % (11.5-14.5); White Blood Count 10.9 K/mm3 (4.5-10.0)
[2025-01-10 20:08] LABS: Add Urine Microscopic? NO; Appearance Urine Clear (Clear); Bilirubin Urine Negative (Negative); Blood Urine Negative (Negative); Color Urine Yellow (Yellow); Glucose Urine UA Negative (Negative); Ketones Urine Negative (Negative); Leukocyte Esterase Ur Negative LEU/UL (Negative); Nitrate Urine Negative (Negative); Protein Urine Negative (Negative); Specific Grav Ur 1.002 (1.001-1.035); Urobilinogen Urine 0.2 mg/dL (<2.0)
[2025-01-10 20:21] LABS: Alanine Aminotransferase 12 U/L (6-50); Albumin Level 4.1 g/dL (3.5-5.1); Alkaline Phosphatase 62 U/L (38-126); Anion Gap 11 mmol/L (4-12); Aspartate Amino Transferase 20 U/L (17-59); Bilirubin,Total 0.7 mg/dL (0.2-1.3); Blood Urea Nitrogen 10 mg/dL (9-20); Calcium 8.9 mg/dL (8.4-10.2); Carbon Dioxide 22 mmol/L (22-30); Chloride 86 mmol/L (98-107); Estimated CRCL calculation 81 ml/min; Estimated Glomerular Filt Rate > 60; Glucose 96 mg/dL (65-110); Lipase 76 U/L (23-300); Potassium 4.1 mmol/L (3.4-5.0); Sodium 119 mmol/L (137-145)
--- NOTE | 2025-01-10 21:23 | ED.GENADULT ---
HPI - General Adult General Chief complaint: Nausea/Vomiting/Diarrhea Stated complaint: hiccups, N/V Time Seen by Provider: 01/10/25 19:11 History of Present Illness HPI narrative: This is a 64-year-old male with a history of chronic hiccups and hyponatremia presenting for lightheadedness. Patient was admitted to our hospital 2 weeks ago for hyponatremia and chronic hiccups. Hyponatremia was determined to be due to polydipsia as the patient will frequently drink several gal of water to try to stop his hiccups. His sodium was corrected and he was discharged on Thorazine. Patient said that his hiccups recurred and he drink at least a gal of water and he says at least that much soda. He did have an episode of nausea and vomiting earlier although he is denying current nausea and vomiting. He is currently complaining of lightheadedness. No headaches. No fevers chills chest pain breathing abdominal pain symptoms. He has been compliant with his Thorazine. He has not been compliant with his water restriction. Related Data Home Medications ?Medication ?Instructions ?Recorded ?Confirmed ?Last Taken ?Type losartan 50 mg tablet 50 mg PO DAILY 03/02/21 12/26/24 12/25/24 08:00 History 50 mg montelukast 10 mg tablet 10 mg PO DAILY 03/02/21 12/26/24 12/25/24 08:00 History 10 mg pravastatin 80 mg tablet 80 mg PO DAILY 03/02/21 12/26/24 12/25/24 08:00 History cholecalciferol (vitamin D3) 25 25 mcg PO DAILY 03/29/21 12/26/24 12/25/24 08:00 History mcg (1,000 unit) capsule (Vitamin 25 mcg D3) cyanocobalamin (vitamin B-12) 100 2,000 mcg PO DAILY 03/29/21 12/26/24 12/25/24 08:00 History mcg tablet 2,000 mcg dorzolamide 22.3 mg-timolol 6.8 1 drp LEFT EYE TID 06/29/24 12/26/24 12/26/24 08:00 History mg/mL eye drops 1 drp budesonide-formoterol HFA 80 2 puff inhalation Q12H 12/26/24 12/26/24 12/26/24 08:00 History mcg-4.5 mcg/actuation aerosol 2 puff inhaler gabapentin 300 mg capsule 300 mg PO DAILY 12/26/24 12/26/24 12/25/24 08:00 History 300 mg prednisolone acetate 1 % eye 1 drp LEFT EYE TID 12/26/24 12/26/24 12/26/24 08:00 History drops,suspension 1 drp sodium chloride 1,000 mg soluble 1,000 mg PO TID 12/26/24 12/26/24 12/25/24 20:00 History tablet 1,000 mg Allergies Allergy/AdvReac Type Severity Reaction Status Date / Time No Known Allergies Allergy Verified 01/10/25 18:20 [facility] Past Medical History Medical History Adenomatous colon polyp Erosive esophagitis Anemia of chronic disease Chronic hiccups Hyponatremia Tobacco abuse Normocytic anemia Glaucoma Legally blind. Chronic obstructive pulmonary disease Hyperlipidemia Hypertension Surgical History Surgical History History of enucleation of eye Right, secondary to recurrent infection. Family History Family History Grandparent Acute myocardial infarction Mother Acute myocardial infarction Skin cancer Father Acute myocardial infarction Sibling Cancer Social History Social History Social History: Surrogate decision maker: Svitlana Hines, . Code status: Full code. Smoking packs per day: 1 Smoking cigarettes per day: 20.0 Years smoked: 30 Smoking pack-years: 30.00 Smoking status: Former smoker Tobacco type: cigarettes Smoking end date: 11/03/20 Alcohol intake: current Drinks per week: 3 Substance use: never Substance use type: does not use Do You Feel Safe in your Home?: Yes Lack of Transportation: No Lack of Food: Never True Current Housing: I Have Housing Concerned About Future Housing: No Difficulty Paying Gas/Electric Bills: No Difficulty Paying for Meds: No Currently Unemployed: No Education: High School Diploma/GED Difficulty w/ Childcare or Family Care: No Living arrangements: with family Additional living arrangements comments: The patient lives with his in [place]. 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 Spiritual care concerns: No Exam Narrative: APPEARANCE: No apparent distress. Patient is sitting in bed with 3 full urinals next to the bed filled with clear urine. Head: atraumatic. EYES: Blind NOSE: Atraumatic NECK: Trachea midline RESPIRATORY: No increased rate of breathing CTAB CARDIOVASCULAR: RRR, no peripheral edema ABDOMINAL: Non-distended soft nontender MUSCULOSKELETAl: No obvious deformities NEURO: Alert. Moving 4/4 extremities SKIN:: Warm, dry. Normal color PSYCHIATRIC: Normal affect Course Vital Signs Vital signs: Vital Signs Pulse Rate 85 01/10/25 18:27 Respiratory Rate 20 01/10/25 18:27 Blood Pressure 176/79 H 01/10/25 18:27 Pulse Oximetry 97 01/10/25 18:27 Temperature 98.2 F 01/10/25 19:56 Pulse Rate 88 01/10/25 19:56 Respiratory Rate 19 01/10/25 19:56 Blood Pressure 153/66 H 01/10/25 19:56 Pulse Oximetry 97 01/10/25 19:56 Oxygen Delivery Room Air 01/10/25 18:30 Medical Decision Making MDM Narrative Medical decision making narrative: -Course: 64-year-old male history chronic hyponatremia/hiccus presenting for lightheadedness. Patient is hyponatremic at 119. He is euvolemic. This is likely due to his polydipsia. Symptoms are mild. He had an episode of nausea vomiting earlier although he is not acutely nauseous now. Unclear if that was due to the hyponatremia versus over distension of the stomach. Sodium deficit/goals were calculated was started on normal saline 115 cc/hour. Urine electrolytes have been ordered. Patient put on water restriction. Patient given Thorazine for hiccups. Patient be admitted hospital for hyponatremia. -DDX includes but is not limited to: Hypernatremia, polydipsia Vital Signs Vital Signs: Vital Signs Pulse Rate 85 01/10/25 18:27 Respiratory Rate 20 01/10/25 18:27 Blood Pressure 176/79 H 01/10/25 18:27 Pulse Oximetry 97 01/10/25 18:27 Temperature 98.2 F 01/10/25 19:56 Pulse Rate 88 01/10/25 19:56 Respiratory Rate 19 01/10/25 19:56 Blood Pressure 153/66 H 01/10/25 19:56 Pulse Oximetry 97 01/10/25 19:56 Oxygen Delivery Room Air 01/10/25 18:30 Lab Data 01/10/25 20:02 01/10/25 20:02 Labs: Lab Results 01/10/25 Range/Units 20:02 WBC 10.9 H (4.5-10.0) K/mm3 RBC 3.55 L (4.6-6.20) M/mm3 Hgb 10.4 L (14.0-18.0) g/dL Hct 30.5 L (42.0-52.0) % MCV 85.9 (80-100) fl MCH 29.3 (26-34) pg MCHC 34.1 (32-36) g/dl RDW 12.6 (11.5-14.5) % Plt Count 230 (150-375) k/mm3 MPV 11.9 H (7.4-10.4) fl Immature Gran % (Auto) 0.3 (0-0.5) % Neut % (Auto) 81.4 H (45.5-73.1) % Lymph % (Auto) 11.9 L (18.3-44.2) % Morton % (Auto) 4.2 (2.6-8.5) % Eos % (Auto) 1.8 (0-4.4) % Baso % (Auto) 0.4 (0.2-1.2) % Lymph # (Auto) 1.30 (0.9-3.2) K/mm3 Morton # (Auto) 0.5 (0.1-0.6) K/mm3 Eos # (Auto) 0.2 (0-0.3) K/mm3 Baso # (Auto) 0.0 (0.0-0.1) K/mm3 Abs Immat Gran (auto) 0.03 (0.00-0.031) K/mm3 Absolute Neuts (auto) 8.9 H (1.3-6.7) K/mm3 Absolute Nucleated RBC 0.000 (0.0-0.012) K/mm3 Nucleated RBC % 0.0 (0.0-0.2) % Sodium 119 L* (137-145) mmol/L Potassium 4.1 (3.4-5.0) mmol/L Chloride 86 L (98-107) mmol/L Carbon Dioxide 22 (22-30) mmol/L Anion Gap 11 (4-12) mmol/L BUN 10 (9-20) mg/dL Creatinine 0.78 (0.7-1.3) mg/dL Estim Creat Clear Calc 81 ml/min Estimated GFR > 60 (59 - ) Glucose 96 (65-110) mg/dL Calcium 8.9 (8.4-10.2) mg/dL Total Bilirubin 0.7 (0.2-1.3) mg/dL AST 20 (17-59) U/L ALT 12 (6-50) U/L Alkaline Phosphatase 62 (38-126) U/L Total Protein 7.0 (6.3-8.2) g/dL Albumin 4.1 (3.5-5.1) g/dL Lipase 76 (23-300) U/L Urine Color Yellow (Yellow) Urine Appearance Clear (Clear) Urine pH 7.0 (5.0-9.0) Ur Specific [place] 1.002 (1.001-1.035) Urine Protein Negative (Negative) mg/dL Urine Glucose (UA) Negative (Negative) mg/dL Urine Ketones Negative (Negative) mg/dL Ur Blood (Man) Negative (Negative) Urine Nitrate Negative (Negative) Urine Bilirubin Negative (Negative) Urine Urobilinogen 0.2 (<2.0) mg/dL Leukocyte Esterase Rfl Negative (Negative) BENTLEY/UL Discharge Plan Discharge Clinical Impression: Hyponatremia, Hiccup, Polydipsia Patient Disposition: Still a Patient Condition: Stable Patient Language: [place] Prescriptions: No Action losartan 50 mg tablet 50 mg PO DAILY pravastatin 80 mg tablet 80 mg PO DAILY montelukast 10 mg tablet 10 mg PO DAILY albuterol sulfate 90 mcg/actuation HFA aerosol inhaler 1 inh inhalation QID PRN (Reason: shortness of breath or wheezing) Qty: 8.5 0RF dorzolamide-timolol 22.3-6.8 mg/mL drops 1 drp LEFT EYE TID gabapentin 300 mg capsule 300 mg PO DAILY sodium chloride 1,000 mg tablet,soluble 1,000 mg PO TID prednisolone acetate 1 % drops,suspension 1 drp LEFT EYE TID budesonide-formoterol 80-4.5 mcg/actuation HFA aerosol inhaler 2 puff INHALATION Q12H azithromycin [Zithromax] 250 mg Tablet 250 mg PO DAILY Qty: 4 0RF chlorpromazine 25 mg Tablet 25 mg PO Q6H PRN (Reason: Hiccups) Qty: 30 0RF amoxicillin-pot clavulanate 875-125 mg tablet 1 tablet PO Q12H Qty: 8 0RF pantoprazole 40 mg tablet,delayed release (DR/EC) 40 mg PO BID 30 Days Qty: 60 5RF metoclopramide HCl 10 mg tablet 10 mg PO Q6H PRN (Reason: nausea and vomiting) Qty: 30 0RF cyanocobalamin (vitamin B-12) 100 mcg Tablet 2,000 mcg PO DAILY cholecalciferol (vitamin D3) [Vitamin D3] 25 mcg (1,000 unit) Capsule 25 mcg PO DAILY Follow-up/Referrals: Celine,TRAVIS Lawler [Primary Care Provider] -
[2025-01-10] MEDS: SODIUM CHLORIDE 0.9% IV 1,000 ML 116 ML IV CONT (22:17)
[2025-01-10] MEDS: chlorproMAZINE HCL INJ 50 MG/2 ML AMP 25 MG IM (22:21)
--- NOTE | 2025-01-10 22:38 | PM.IMHP ---
H&P: HPI History of Present Illness Date/Time: 01/10/25 22:38 Chief Complaint: Hiccups, dizziness Narrative: 64-year-old male with a history of chronic hiccups, chronic hyponatremia presenting with lightheadedness. Patient was recently admitted to [facility] 2 weeks prior for hyponatremia and chronic hiccups. 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 However after further questioning he reports it does not actually help. He was discharged on Thorazine but did not take it because he was afraid of the side effects. He had 1 episode of nausea and vomiting. Denies any abdominal pain, fever, chest pain, shortness of breath, syncope, headache, seizures, tremor. He has not been compliant with water restriction either. He lives with his . Sodium found to be 119 and on last admission was 133 on discharge at 12/27/2024. In the ER is given chlorpromazine 25 mg IM x1 and sodium chloride started at 116 cc/hour. Patient reported feeling better. Review of Systems Review of Systems: All systems reviewed & are unremarkable except as noted in HPI and below (HPI) [facility]LY [facility] Past Medical History Medical History Adenomatous colon polyp Erosive esophagitis Anemia of chronic disease Chronic hiccups Hyponatremia Tobacco abuse Normocytic anemia Glaucoma Legally blind. Chronic obstructive pulmonary disease Hyperlipidemia Hypertension Surgical History Surgical History History of enucleation of eye Right, secondary to recurrent infection. Family History Family History Grandparent Acute myocardial infarction Mother Acute myocardial infarction Skin cancer Father Acute myocardial infarction Sibling Cancer Social History Social History Social History: Surrogate decision maker: Svitlana Hines, . Code status: Full code. Smoking packs per day: 1 Smoking cigarettes per day: 20.0 Years smoked: 30 Smoking pack-years: 30.00 Smoking status: Former smoker Tobacco type: cigarettes Smoking end date: 11/03/20 Alcohol intake: current Drinks per week: 3 Substance use: never Substance use type: does not use Do You Feel Safe in your Home?: Yes Lack of Transportation: No Lack of Food: Never True Current Housing: I Have Housing Concerned About Future Housing: No Difficulty Paying Gas/Electric Bills: No Difficulty Paying for Meds: No Currently Unemployed: No Education: High School Diploma/GED Difficulty w/ Childcare or Family Care: No Living arrangements: with family Additional living arrangements comments: The patient lives with his in [place]. 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 Spiritual care concerns: No Meds Home Medications and Allergies Home Medications ?Medication ?Instructions ?Recorded ?Confirmed ?Type losartan 50 mg tablet 50 mg PO DAILY 03/02/21 12/26/24 History montelukast 10 mg tablet 10 mg PO DAILY 03/02/21 12/26/24 History pravastatin 80 mg tablet 80 mg PO DAILY 03/02/21 12/26/24 History cholecalciferol (vitamin D3) 25 25 mcg PO DAILY 03/29/21 12/26/24 History mcg (1,000 unit) capsule (Vitamin D3) cyanocobalamin (vitamin B-12) 100 2,000 mcg PO DAILY 03/29/21 12/26/24 History mcg tablet albuterol sulfate 90 mcg/actuation 1 inh inhalation QID PRN shortness 05/02/21 12/26/24 Rx aerosol inhaler of breath or wheezing #8.5 grams dorzolamide 22.3 mg-timolol 6.8 1 drp LEFT EYE TID 06/29/24 12/26/24 History mg/mL eye drops budesonide-formoterol HFA 80 2 puff inhalation Q12H 12/26/24 12/26/24 History mcg-4.5 mcg/actuation aerosol inhaler gabapentin 300 mg capsule 300 mg PO DAILY 12/26/24 12/26/24 History prednisolone acetate 1 % eye 1 drp LEFT EYE TID 12/26/24 12/26/24 History drops,suspension sodium chloride 1,000 mg soluble 1,000 mg PO TID 12/26/24 12/26/24 History tablet amoxicillin 875 mg-potassium 1 tablet PO Q12H #8 tabs 12/27/24 Rx clavulanate 125 mg tablet azithromycin 250 mg tablet 250 mg PO DAILY #4 tabs 12/27/24 Rx (Zithromax) chlorpromazine 25 mg tablet 25 mg PO Q6H PRN Hiccups #30 tabs 12/27/24 Rx metoclopramide HCl 10 mg tablet 10 mg PO Q6H PRN nausea and 12/27/24 Rx vomiting #30 tabs pantoprazole 40 mg tablet,delayed 40 mg PO BID 30 days #60 tabs 12/27/24 Rx release Allergies Allergy/AdvReac Type Severity Reaction Status Date / Time No Known Allergies Allergy Verified 01/10/25 18:20 Vital Signs Vital Signs - 24 hr 01/10/25 18:27 01/10/25 18:30 01/10/25 19:56 Temperature 98.2 F Pulse Rate 85 83 88 Respiratory Rate 20 20 19 Blood Pressure 176/79 H 170/79 H 153/66 H Pulse Oximetry 97 99 97 Oxygen Delivery Room Air 01/10/25 22:27 Temperature Pulse Rate 92 Respiratory Rate 20 Blood Pressure 146/68 H Pulse Oximetry 98 Oxygen Delivery Exam Const: General: comfortable and no acute distress Neck: Neck: supple Resp: Effort & Inspection: normal respiratory effort Auscultation: clear to auscultation bilaterally Cardio: Rate: regular rate Rhythm: regular rhythm GI: GI Palp: Yes Soft to palpation and No Tenderness to palpation present (GI) Extrem: General: no edema H&P: Results Labs Labs: Short CBC 01/10/25 Range/Units 20:02 WBC 10.9 H (4.5-10.0) K/mm3 Hgb 10.4 L (14.0-18.0) g/dL Hct 30.5 L (42.0-52.0) % Plt Count 230 (150-375) k/mm3 [facility] 01/10/25 20:02 Sodium 119 L* Potassium 4.1 Chloride 86 L Carbon Dioxide 22 BUN 10 Creatinine 0.78 Glucose 96 Calcium 8.9 Liver Function 01/10/25 Range/Units 20:02 Total Bilirubin 0.7 (0.2-1.3) mg/dL AST 20 (17-59) U/L ALT 12 (6-50) U/L Alkaline Phosphatase 62 (38-126) U/L Albumin 4.1 (3.5-5.1) g/dL Urine 01/10/25 Range/Units 20:02 Urine Color Yellow (Yellow) Urine Appearance Clear (Clear) Urine pH 7.0 (5.0-9.0) Ur Specific [place] 1.002 (1.001-1.035) Urine Protein Negative (Negative) mg/dL Urine Glucose (UA) Negative (Negative) mg/dL Assessment and Plan Assessment and plan (1) Hyponatremia: Code(s): E87.1 - Hypo-osmolality and hyponatremia Status: Acute (2) Polydipsia: Code(s): R63.1 - Polydipsia Status: Acute (3) Chronic hiccups: Code(s): R06.6 - Hiccough Status: Chronic Plan 64-year-old male with a history of chronic hiccups, chronic hyponatremia presenting with lightheadedness. Patient was recently admitted to [facility] 2 weeks prior for hyponatremia and chronic hiccups. 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 However after further questioning he reports it does not actually help. He was discharged on Thorazine but did not take it because he was afraid of the side effects. He had 1 episode of nausea and vomiting. Denies any abdominal pain, fever, chest pain, shortness of breath, syncope, headache, seizures, tremor. He has not been compliant with water restriction either. He lives with his . Sodium found to be 119 and on last admission was 133 on discharge at 12/27/2024. In the ER is given chlorpromazine 25 mg IM x1 and sodium chloride started at 116 cc/hour. Patient reported feeling better. ----- Continue normal saline. Check BMP at midnight and then q.4 hours thereafter. Educated about avoiding excessive water intake. ----- Full code. Fluid restriction 1 L per 24 hours Hospitalist MIPS Advance Care Plan I have confirmed that the patient's Advanced Care Plan is present, code status is documented, or surrogate decision maker is listed in patient medical record.: Yes Medication Reconciliation I have utilized all available resources to obtain, update and review the patients current medications (includes all prescriptions, OTC, herbals, cannabis, and nutritional supplements).: Yes
--- NOTE | 2025-01-10 22:55 | PC.NURSE ---
2nd urine specimen sent down per labs request with generic label.
[2025-01-11] VITALS (11 sets, daily range): BP systolic 112–136; BP diastolic 53–59; PULSE 63–94; RESP 20; TEMP 36.6–36.9; O2SAT 96–98
[2025-01-11 00:15] LABS: Anion Gap 12 mmol/L (4-12); Blood Urea Nitrogen 8 mg/dL (9-20); Calcium 9.3 mg/dL (8.4-10.2); Carbon Dioxide 22 mmol/L (22-30); Chloride 96 mmol/L (98-107); Estimated CRCL calculation 90 ml/min; Estimated Glomerular Filt Rate > 60; Glucose 108 mg/dL (65-110); Potassium 4.2 mmol/L (3.4-5.0); Sodium 130 mmol/L (137-145)
[2025-01-11] MEDS: DEXTROSE 5%/0.45% SOD CHL 1,000 ML 100 ML IV CONT (02:14)
[2025-01-11 05:13] LABS: Basophils Percent Auto 0.3 % (0.2-1.2); Eosinophils Absolute Auto 0.1 K/mm3 (0-0.3); Eosinophils Percent Auto 1.9 % (0-4.4); Hematocrit 33.3 % (42.0-52.0); Hemoglobin 11.1 g/dL (14.0-18.0); Immature Granulocyte Absolute 0.01 K/mm3 (0.00-0.031); Immature Granulocyte Percent A 0.2 % (0-0.5); Lymphocytes Absolute Auto 1.05 K/mm3 (0.9-3.2); Lymphocytes Percent Auto 17.7 % (18.3-44.2); Mean Corpuscular HGB Conc 33.3 g/dl (32-36); Mean Corpuscular Hemoglobin 28.6 pg (26-34); Mean Corpuscular Volume 85.8 fl (80-100); Mean Platelet Volume 11.1 fl (7.4-10.4); Monocytes Absolute Auto 0.3 K/mm3 (0.1-0.6); Monocytes Percent Auto 5.2 % (2.6-8.5); Neutrophils Absolute Auto 4.4 K/mm3 (1.3-6.7); Neutrophils Percent Auto 74.7 % (45.5-73.1); Platelet Count Result 200 k/mm3 (150-375); Red Blood Count 3.88 M/mm3 (4.6-6.20); White Blood Count 5.9 K/mm3 (4.5-10.0)
[2025-01-11 05:23] LABS: Alanine Aminotransferase 13 U/L (6-50); Albumin Level 4.1 g/dL (3.5-5.1); Alkaline Phosphatase 59 U/L (38-126); Anion Gap 9 mmol/L (4-12); Aspartate Amino Transferase 20 U/L (17-59); Bilirubin,Total 0.4 mg/dL (0.2-1.3); Blood Urea Nitrogen 8 mg/dL (9-20); Calcium 9.4 mg/dL (8.4-10.2); Carbon Dioxide 27 mmol/L (22-30); Chloride 100 mmol/L (98-107); Estimated CRCL calculation 72 ml/min; Estimated Glomerular Filt Rate > 60; Glucose 108 mg/dL (65-110); Magnesium 2.3 mg/dL (1.6-2.3); Potassium 4.4 mmol/L (3.4-5.0); Sodium 136 mmol/L (137-145)
[2025-01-11] MEDS: DEXTROSE 5% 1,000 ML 1,000 ML 150 ML IV CONT (05:52)
[2025-01-11] MEDS: FLUTICASONE/SALMETEROL 45-21 MCG INHALER 1 PUFF 2 PUFF INHALATION ×2 (07:40→20:31)
[2025-01-11] MEDS: GABAPENTIN 300 MG CAPSULE PO (08:59)
[2025-01-11] MEDS: LOSARTAN POTASSIUM 50 MG TABLET PO (08:59)
[2025-01-11] MEDS: CHOLECALCIFEROL 1,000 UNITS TABLET 1000 UNITS PO (08:59)
[2025-01-11] MEDS: MONTELUKAST SODIUM 10 MG TABLET PO (08:59)
[2025-01-11] MEDS: PRAVASTATIN SODIUM 20 MG TABLET 80 MG PO (08:59)
[2025-01-11] MEDS: PANTOPRAZOLE 40 MG TABLET PO ×2 (08:59→19:58)
[2025-01-11] MEDS: CYANOCOBALAMIN 1,000 MCG TABLET 2000 MCG PO (08:59)
[2025-01-11] MEDS: chlorproMAZINE HCL 25 MG TABLET PO ×2 (09:00→19:58)
[2025-01-11 09:20] LABS: Anion Gap 16 mmol/L (4-12); Blood Urea Nitrogen 8 mg/dL (9-20); Calcium 9.6 mg/dL (8.4-10.2); Carbon Dioxide 20 mmol/L (22-30); Chloride 101 mmol/L (98-107); Estimated CRCL calculation 86 ml/min; Estimated Glomerular Filt Rate > 60; Glucose 134 mg/dL (65-110); Potassium 4.7 mmol/L (3.4-5.0); Sodium 137 mmol/L (137-145)
--- NOTE | 2025-01-11 13:00 | P.DS_ITS ---
DS: Admitting Diagnosis Discharge Date Admitting Diagnosis Hyponatremia/intractable hiccups DS: Discharge Diagnosis Discharge Diagnosis (1) Hyponatremia: Code(s): E87.1 - Hypo-osmolality and hyponatremia Status: Acute (2) Gallbladder polyp: Code(s): K82.4 - Cholesterolosis of gallbladder Status: Acute (3) Chronic hiccups: Code(s): R06.6 - Hiccough Status: Chronic (4) Chronic obstructive pulmonary disease: Code(s): J44.9 - Chronic obstructive pulmonary disease, unspecified Status: Chronic (5) Hypertension: Code(s): I10 - Essential (primary) hypertension Status: Chronic Plan Disposition: Discharged to home DS: Summary Hospital Course Reason for hospitalization: Hyponatremia/intractable hiccups Hospital Course: Admission: Patient was a 64-year-old male with a history of chronic hiccups, chronic hyponatremia presenting with lightheadedness. Patient was recently admitted to [facility] 2 weeks prior for hyponatremia and chronic hiccups. 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 However after further questioning he reports it does not actually help. He was discharged on Thorazine but did not take it because he was afraid of the side effects. He had 1 episode of nausea and vomiting. Denies any abdominal pain, fever, chest pain, shortness of breath, syncope, headache, seizures, tremor. He has not been compliant with water restriction either. He reported he began to have mild dizziness when ambulating and thought his sodium was low again. Sodium found to be 119 and on last admission was 133 on discharge at 12/27/2024. In the ER is given chlorpromazine 25 mg IM x1 and sodium chloride started at 116 cc/hour. Patient reported feeling better. Hospital Course: Patient with history of chronic hyponatremia due to increased fluid intake in attempts to stop his hiccups. He was resumed on his sodium tablets placed on fluid restriction with overall improvement to his hyponatremia to 136. Patient continued chronic hiccups which he attributes to his severe consumption oral hydration likely leading to his hyponatremia. Patient had not been taking his Thorazine outpatient he received 2 doses of Thorazine inpatient with resolution of hiccups. I educated on medication compliance as well as the need for fluid restriction. He was alert and oriented and reported feeling back to his baseline. Patient acknowledged agreed discharge plan was discharged to home. Status at Discharge Functional status at discharge: independent ambulation Overall status at discharge: patient is progressing back to baseline Time Spent with Patient Time attestation: Total time spent providing and/or coordinating discharge services: Time spent: Greater than 30 minutes Exam Const: General: comfortable and no acute distress HENMT: Face/Nose/Sinus: Normal nares present Mouth: Yes moist mucous membranes Eyes: General: appearance normal, both eyes and all related structures Sclera: sclerae normal Pupils: Equal, round and reactive pupils present EOM: EOMs intact bilaterally Neck: Neck: supple and no JVD Resp: Effort & Inspection: normal respiratory effort Auscultation: clear to auscultation bilaterally Cardio: Rate: regular rate Rhythm: regular rhythm GI: GI Palp: Yes Soft to palpation Auscultation: normal bowel sounds Skin: General skin exam: normal color and no rashes or lesions noted Wounds: no wounds Neuro: General: gait normal Motor exam (neuro): 5/5 motor strength present throughout and Motor abnormalites present Sensory Exam: normal sensation Extrem: General: normal to inspection Psych: Mental Status: mental status grossly normal Affect: normal affect DS: Data Data Completed and Pending Labs on day of discharge: Labs from last 24 hours 01/11/25 01/11/25 01/10/25 08:58 04:49 23:53 WBC 5.9 RBC 3.88 L Hgb 11.1 L Hct 33.3 L MCV 85.8 MCH 28.6 MCHC 33.3 RDW 13.0 Plt Count 200 MPV 11.1 H Immature Gran % (Auto) 0.2 Neut % (Auto) 74.7 H Lymph % (Auto) 17.7 L Thurston % (Auto) 5.2 Eos % (Auto) 1.9 Baso % (Auto) 0.3 Lymph # (Auto) 1.05 Thurston # (Auto) 0.3 Eos # (Auto) 0.1 Baso # (Auto) 0.0 Abs Immat Gran (auto) 0.01 Absolute Neuts (auto) 4.4 Absolute Nucleated RBC 0.000 Nucleated RBC % 0.0 Sodium 137 136 L 130 L Potassium 4.7 4.4 4.2 Chloride 101 100 96 L Carbon Dioxide 20 L 27 22 Anion Gap 16 H 9 12 BUN 8 L 8 L 8 L Creatinine 0.74 0.89 0.70 Estim Creat Clear Calc 86 72 90 Estimated GFR > 60 > 60 > 60 Glucose 134 H 108 108 Calcium 9.6 9.4 9.3 Magnesium 2.3 Total Bilirubin 0.4 AST 20 ALT 13 Alkaline Phosphatase 59 Total Protein 7.0 Albumin 4.1 Lipase Urine Color Urine Appearance Urine pH Ur Specific Commerce Urine Protein Urine Glucose (UA) Urine Ketones Ur Blood (Man) Urine Nitrate Urine Bilirubin Urine Urobilinogen Leukocyte Esterase Rfl Urine Osmolality Ur Random Sodium Ur Random Urea Urine Creatinine 01/10/25 20:02 WBC 10.9 H RBC 3.55 L Hgb 10.4 L Hct 30.5 L MCV 85.9 MCH 29.3 MCHC 34.1 RDW 12.6 Plt Count 230 MPV 11.9 H Immature Gran % (Auto) 0.3 Neut % (Auto) 81.4 H Lymph % (Auto) 11.9 L Thurston % (Auto) 4.2 Eos % (Auto) 1.8 Baso % (Auto) 0.4 Lymph # (Auto) 1.30 Thurston # (Auto) 0.5 Eos # (Auto) 0.2 Baso # (Auto) 0.0 Abs Immat Gran (auto) 0.03 Absolute Neuts (auto) 8.9 H Absolute Nucleated RBC 0.000 Nucleated RBC % 0.0 Sodium 119 L* Potassium 4.1 Chloride 86 L Carbon Dioxide 22 Anion Gap 11 BUN 10 Creatinine 0.78 Estim Creat Clear Calc 81 Estimated GFR > 60 Glucose 96 Calcium 8.9 Magnesium Total Bilirubin 0.7 AST 20 ALT 12 Alkaline Phosphatase 62 Total Protein 7.0 Albumin 4.1 Lipase 76 Urine Color Yellow Urine Appearance Clear Urine pH 7.0 Ur Specific Commerce 1.002 Urine Protein Negative Urine Glucose (UA) Negative Urine Ketones Negative Ur Blood (Man) Negative Urine Nitrate Negative Urine Bilirubin Negative Urine Urobilinogen 0.2 Leukocyte Esterase Rfl Negative Urine Osmolality Pending Ur Random Sodium Pending Ur Random Urea Pending Urine Creatinine Pending Discharge Plan Discharge Attending physician on discharge: Ruma Priest Consulting providers: Barb Eaton Discharging Clinician: Barb Eaton Anticipated Discharge Date/Time: 01/11/25 12:56 Patient Disposition: Home Activity: may shower and as tolerated Diet: as tolerated and other - see discharge instructions Discharge Instructions: Hyponatremia * Resume taking your sodium bicarb tablets as prescribed * Recommend fluid restriction 2000ML of fluids per day * Follow-up with primary care for close monitoring of sodium levels outpatient Intractable hiccups * I have prescribed Thorazine take up to 4 times daily as needed How can you care for yourself at home? ? Keep track of any new symptoms or changes in your symptoms. ? Rest until you feel better. ? Be safe with medicines. Take your medicines exactly as prescribed. Call your doctor if you think you are having a problem with your medicine. ? Do not drive after taking a prescription pain medicine. ? Ensure to follow-up with primary care physician as indicated and provide updated medication list provided to you at discharge. When should you call for help? Call 911 anytime you think you may need emergency care. For example, call if: ? You passed out (lost consciousness). Call your doctor now or seek immediate medical care if: ? You have new symptoms like fever, difficulty breathing, Chest pain, vomiting, or rash. ? You have new or different pain. ? You are confused and are having trouble thinking clearly. ? Your symptoms are getting worse. Watch closely for changes in your health, and be sure to contact your doctor if: ? You do not get better as expected. Patient Instructions: Antibiotic Form, Hyponatremia (DC), Hiccups (DC) Patient Language: Vietnamese Stand Alone Forms: General Discharge Information Follow-up/Referrals: Celine,TRAVIS Lawler [Primary Care Provider] - Keep Reg. Scheduled Appt. Discharge Medications: Continued losartan 50 mg tablet 50 mg PO DAILY pravastatin 80 mg tablet 80 mg PO DAILY montelukast 10 mg tablet 10 mg PO DAILY albuterol sulfate 90 mcg/actuation HFA aerosol inhaler 1 inh inhalation QID PRN (Reason: shortness of breath or wheezing) Qty: 8.5 0RF dorzolamide-timolol 22.3-6.8 mg/mL drops 1 drp LEFT EYE TID gabapentin 300 mg capsule 300 mg PO DAILY prednisolone acetate 1 % drops,suspension 1 drp LEFT EYE TID budesonide-formoterol 80-4.5 mcg/actuation HFA aerosol inhaler 2 puff INHALATION Q12H pantoprazole 40 mg tablet,delayed release (DR/EC) 40 mg PO BID 30 Days Qty: 60 5RF metoclopramide HCl 10 mg tablet 10 mg PO Q6H PRN (Reason: nausea and vomiting) Qty: 30 0RF cyanocobalamin (vitamin B-12) 100 mcg Tablet 2,000 mcg PO DAILY cholecalciferol (vitamin D3) [Vitamin D3] 25 mcg (1,000 unit) Capsule 25 mcg PO DAILY chlorpromazine 25 mg Tablet 25 mg PO Q6H PRN (Reason: Hiccups) Qty: 30 0RF sodium chloride 1,000 mg tablet,soluble 1,000 mg PO TID Qty: 90 0RF Date of admission: 01/10/25 21:35 Primary Care Provider: CelineNuris Admitting Provider: Geno Ravi Attending physician on admission: Geno Ravi Condition: Stable Quality VTE Prophylaxis VTE prophylaxis: pharmacologic ordered -Patient's previous records reviewed on admission -ER notes reviewed in detail on admission -discussed all findings and current treatment plan with patient/Family/POA -Consultations reviewed for recommendations -Patient's disposition for safe discharge discussed with director of casework services Dictation performed by [employer] direct speech recognition software, therefore paper box cutter variants and typographical errors may occur. Hospitalist MIPS Heart Failure (Exclusion) Patient has history of Heart Transplant or Left Ventricular Assistive Device?: No IF YES, STOP HERE Heart Failure (Qualifier) Patient has current or prior documentation of LVEF less than or equal to 40%, or mod/servere depressed LVSF?: No IF NO, STOP HERE
--- NOTE | 2025-01-11 14:39 | PC.NURSE ---
Patient discharged, waiting for ride in room.
[2025-01-15 13:50] LABS: Osmolality, Urine 57 mOsm/kg (50-1200)
== END 2025-01-11 20:53 | disposition home or self-care (01) ==
LOC: ANHED 21:34 → ANHIMU 01-11 08:33
PROVIDERS: Admitting Provider General Practice; Emergency Provider Emergency Medicine; PCP Physician Assistant; Visit Provider Hospitalist
DX: E87.1 Hypo-osmolality and hyponatremia (principal); K82.4 Cholesterolosis of gallbladder; R06.6 Hiccough; J44.9 Chronic obstructive pulmonary disease, unspecified; I10 Essential (primary) hypertension; R63.1 Polydipsia; H40.9 Unspecified glaucoma; E78.5 Hyperlipidemia, unspecified; Z87.891 Personal history of nicotine dependence; Z91.198 Patient's noncompliance with other medical treatment and regimen for other reason; Z79.51 Long term (current) use of inhaled steroids; Z79.899 Other long term (current) drug therapy
CPT/HCPCS: 36415; 80048; 80053; 81003; 82570; 83690; 83735; 83935; 84300; 84540; 85025; 94640; 96360; 96361; 96372; 99285; A9270; G0378; J3230; J7030; J7070

== ENCOUNTER 2025-02-02 19:59 | Emergency (ER) | payer MEDICARE, SELFPAY ==
--- NOTE | ~2025-02-02 | XR_ITS ---
XR chest 2V Ordering provider: Shawn Mary MD History: 64 years Male with . dizziness . Comparison: December 26, 2024 FINDINGS: MEDIASTINUM: The cardiac silhouette is not enlarged. LUNGS: No infiltrates, effusions or pneumothorax. Slightly prominent markings in the left lower lobe. OTHER: No free air under the diaphragm. Degenerative changes of the spine. IMPRESSION: No acute cardiopulmonary pathology. Reviewed, dictated and finalized at location A.
--- OUTSIDE RECORDS SUMMARY | 2025-02-02 20:02 | XMS_ITS | Encounter Summary ---
Author Organization [facility] Healthcare Address [address] [place] [address] Care Team Providers Care Inspector Structural Bonding Name Role Phone Nuris Berger Primary Care Provider [phone] Jonatan Stokes MD Unavailable [phone] Irma Bajwa MD Unavailable [phone] Encounter Details Date Type Department Care Team (Late st Contact Info) Description 12/26/2024 Orders Only [facility] [place] [address] [place] [address] Scanning, Provider Social History Tobacco Use Types Packs/Day Years Used Date Smoking Tobacco: Former Cigarettes 0.8 40 0 09/1981 - 09/2021 Smokeless Tobacco: Never Alcohol Use Standard Drinks/Week Comments Yes 0 (1 standard drink = 0.6 oz pur e alcohol) social [facility] Utilities Answer Date Recorded In the past 12 months has [email or web address], gas, oil, or water [employer] threatened to shut off services in your [...] week 12/03/2023 How often do you attend [facility] or shinto services? Patient declined 12/03/2023 Do you belong to any clubs o r organizations such as orthodoxy groups, unions, fraternal or athletic groups, or [...] place to sleep or slept in a intermediate (including now)? No 12/03/2023 Personal Safety Answer Date Recorded Have you ever been in or are you currently in a harmful physical or emotional relationship or is someone making you feel afraid or unsafe? 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 Gender Identity Not on file Sexual Orientation Not on file Occupation Industry Job Start Date Job End Date Disabled Not on file Not on file Not on file documented as of this encounter Plan of Treatment Not on file documented as of this encounter Procedures Procedure Name Priority Date/Time Associated Diagnosis Comments SCAN - RADIOLOGY/IMAGING 12/26/2024 documented in this encounter Results * SCAN - RADIOLOGY/IMAGING (12/26/2024) Anatomical Region Laterality Modality Other us Provider Scanning Edited Result - Final documented in this encounter Visit Diagnoses Not on filedocumented in this encounter Care Teams Inspector Structural Bonding Relationship Specialty Start Date End Date Nuris Berger PA [address] [place] [address] PCP - General Internal Medicine 12/28/18 Jonatan Stokes MD [address] [place] [address] Consulting Physician Otolaryngology 03/27/20 Irma Bajwa MD [address] [facility] [place] [address] Consulting Physician Neurology 05/07/22 documented as of this encounter
--- OUTSIDE RECORDS SUMMARY | 2025-02-02 20:02 | XMS_ITS | Encounter Summary ---
Author Organization [facility] Healthcare Address [address] [place] [address] Care Team Providers Care Director Medicare Sales Name Role Phone Nuris Berger Primary Care Provider [phone] Jonatan Stokes MD Unavailable [phone] Irma Bajwa MD Unavailable [phone] Reason for Visit * Reason Onset Date Comments Medical Question/Miscellaneous 01/31/2025 Encounter Details Date Type Department Care Team (Late st Contact Info) Description 01/31/2025 Telephone [facility] Medical Group Family Medicine [address] [place] [address] Nuris Berger PA [address] [place] [address] Medical Question/Miscellaneous Social History Tobacco Use Types Packs/Day Years Used Date Smoking Tobacco: Former Cigarettes 0.8 40 0 09/1981 - 09/2021 Smokeless Tobacco: Never Alcohol Use Standard Drinks/Week Comments Yes 0 (1 standard drink = 0.6 oz pur e alcohol) social C Utilities Answer Date Recorded In the past 12 months has e electric, gas, oil, or water company [...] often do you attend chur ch or evangelical services? Patient declined 12/03/2023 Do you belong [...] containing alc ohol? 2-4 times a month 01/31/2025 Q2: How many drinks containi ng alcohol do you have on a typical day when you are drinking? 3 or 4 01/31/2025 Q3: How often do you have si x or more drinks on one occasion? Never 01/31/2025 Overall Financial Resource Strain (CARDIA) Answe r Date Recorded How hard is it for you to pa y for the very basics like food, housing, medical care, and heating? Not hard at all 12/03/2023 PHQ-2 Answer Date Recorded PHQ-2 Total Score (If total score is 3 or more points, staff should administer the PHQ-9) 0 01/31/2025 Hunger Vital Sign Answer Date Recorded Within [...] to sleep or slept in a senior living (including now)? No 12/03/2023 Personal Safety Answer Date Recorded Have you ever been in or are you currently in a harmful physical or emotional relationship or is someone making you feel afraid or unsafe? 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 2-4 times a month 01/31/2025 8:24 AM CDT Mali Fernandes M A Q2: How many drinks containing alcohol do you have on a typical day when you are drinking? 3 or 4 01/31/2025 8:24 AM CDT Mali Fernandes MA Q3: How often do you have six or more drinks on one occasion? Never 01/31/2025 8:24 AM CHAUT Mali Fernandes M A documented as of this encounter Miscellaneous Notes * Telephone Encounter - Temi Pink LPN - 01/31/2025 12:04 PM CDT Called pharmacy and they stated that the pt last picked up Metoclopramide on 01/22 with a total of 120 tabs. Pt cannot fill again until 02/14. Called and spoke to patient and and informed them of what pharmacy stated. Informed them that they could pay the dockery cost with goodrx and pay aroun $5 for 30 pills. asked what the medication would cost without [email or web address] coupon and I informed her Iwas unsure and to contact the pharmacy. voiced understanding. * Telephone Encounter - CarloZahra sosa - 01/31/2025 10:59 AM CDT Medication Question/Clarification Medication Name(s)/Dose: Metoclopramide What is the question or clarification needed? Pharmacy informed patient too soon to refill, but patient is out of medication. Patient states it was last processed on 12/27/24 If needed, Pharmacy(s) medication(s) should be sent to: [facility] [address] on file Additional Comments: none Does message need to be routed? Yes-Action Needed documented in this encounter Plan of Treatment Not on file documented as of this encounter Visit Diagnoses Not on filedocumented in this encounter Care Teams Director Medicare Sales Relationship Specialty Start Date End Date Nuris Berger PA [address] [address] PCP - General Internal Medicine 12/28/18 Jonatan Stokes MD [address] [place] [address] Consulting Physician Otolaryngology 03/27/20 Irma Bajwa MD [address] [facility] [place] [address] Consulting Physician Neurology 05/07/22 documented as of this encounter
--- OUTSIDE RECORDS SUMMARY | 2025-02-02 20:02 | XMS_ITS | Encounter Summary ---
Author Organization [facility] Healthcare Address [address] [place] [address] Care Team Providers Care Ct Scan Technologist Name Role Phone Nuris Berger Primary Care Provider [phone] Jonatan Stokes MD Unavailable [phone] Irma Bajwa MD Unavailable [phone] Encounter Details Date Type Department Care Team (Late st Contact Info) Description 06/28/2024 Orders Only [facility] [place] [facility] [place] [facility] [address] [place] [address] Scanning, Provider Social History Tobacco Use Types Packs/Day Years Used Date Smoking Tobacco: Former Cigarettes 0.8 40 0 09/1981 - 09/2021 Smokeless Tobacco: Never Alcohol Use Standard Drinks/Week Comments Yes 0 (1 standard drink = 0.6 oz pur e alcohol) social [facility] Utilities Answer Date Recorded In the past 12 months has [employer], gas, oil, or water [employer] threatened to shut off services in your [...] week 12/03/2023 How often do you attend [facility] or judaism services? 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
--- OUTSIDE RECORDS SUMMARY | 2025-02-02 20:02 | XMS_ITS | Encounter Summary ---
Author Organization [facility] Healthcare Address [address] [place] [address] Care Team Providers Care Aquatic Habitat Biologist Name Role Phone Nuris Berger Primary Care Provider [phone] Jonatan Stokes MD Unavailable [phone] Irma Bajwa MD Unavailable [phone] Reason for Visit * Reason Onset Date Comments Test Results 01/31/2025 Encounter Details Date Type Department Care Team (Late st Contact Info) Description 01/31/2025 Results Follow-Up [facility] Medical Group Family Medicine [address] [place] [address] Nuris Berger PA [address] [place] [address] Social History Tobacco Use Types Packs/Day Years Used Date Smoking Tobacco: Former Cigarettes 0.8 40 0 09/1981 - 09/2021 Smokeless Tobacco: Never Alcohol Use Standard Drinks/Week Comments Yes 0 (1 standard drink = 0.6 oz pur e alcohol) social C Utilities Answer Date Recorded In the past 12 months has [employer], gas, oil, or water company threatened to [...] often do you attend chur ch or latter day services? Patient declined 12/03/2023 Do you belong to any clubs o r organizations such as jehovah's witness groups, unions, fraternal or athletic groups, or [...] place to sleep or slept in a prison (including now)? No 12/03/2023 Personal Safety Answer Date Recorded Have you ever been in or are you currently in a harmful physical or emotional relationship or is someone making you feel afraid or unsafe? 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 Never 01/31/2025 8:24 AM CDT Mali Fernandes M A documented as of this encounter Miscellaneous Notes * Telephone Encounter - Rubin Quiroga - 02/01/2025 1:54 PM CDT Call Back Callerâ€™s Concern: Patient returned missed call regarding results. Advised per chart notes. Patient stated understanding and had no questions. Does message need to be routed? Yes-Action Needed documented in this encounter Plan of Treatment Not on file documented as of this encounter Visit Diagnoses Not on filedocumented in this encounter Care Teams Aquatic Habitat Biologist Relationship Specialty Start Date End Date Nuris Berger PA [address] [facility] [address] [place] [address] PCP - General Internal Medicine 12/28/18 Jonatan Stokes MD [address] [place] [address] Consulting Physician Otolaryngology 03/27/20 Irma Bajwa MD [address] [facility] [place] [address] Consulting Physician Neurology 05/07/22 documented as of this encounter
--- OUTSIDE RECORDS SUMMARY | 2025-02-02 20:02 | XMS_ITS | Clinical Summary ---
Author Organization [facility] [address] [facility] Address [address] [place] [address] Care Team Providers Care Senior Asset Manager Name Role Phone Nuris Berger Primary Care Provider [phone] Jonatan Stokes MD Unavailable Irma Bajwa MD Unavailable [phone] Allergies Active Allergy Reactions Criticality Noted Date [...] NIGHT 90 tablet 2 07/17/20 24 Active budesonide-form oteroL (SYMBICORT) 80-4.5 mcg/actuation inhalerIndicati ons:Mild persistent asthma without complication,Ch ronic obstructive pulmonary disease, unspecified COPD type ([facility]) INHALE 2 PUFFS BY MOUTH TWICE DAILY. RINSE MOUTH WITH WATER AFTER USE. DO NOT SWALLOW 30.6 g 1 09/18/20 24 Active pravastatin (PRAVACHOL) 80 mg tablet Take 1 tablet (80 mg total) by mouth daily 90 tablet 1 11/20/19 25 Active sodium chloride 1 gram [...] daily 90 tablet 2 12/08/19 25 Active gabapentin (NEURONTIN) 300 mg capsuleIndicati ons:Chronic hiccups TAKE 1 CAPSULE(300 MG) BY MOUTH THREE TIMES DAILY 300 capsule 01/23/20 25 Active losartan (COZAAR) 50 mg tablet TAKE 1 TABLET(50 MG) BY MOUTH DAILY 90 tablet 1 01/23/20 25 Active chlorproMAZINE (THORAZINE) 25 mg tablet Take 1 tablet (25 mg total) by mouth 4 (four) times a day as needed (hiccups) 30 tablet 02/01/20 25 Active metoclopramide (REGLAN) 10 mg tablet Take 1 tablet (10 mg total) by mouth 4 (four) times a day as needed (hiccups) 30 tablet 02/01/20 25 Active losartan (COZAAR) 50 mg tablet TAKE 1 TABLET(50 MG) BY MOUTH DAILY 90 tablet 1 07/17/20 24 025 Discontinued gabapentin (NEURONTIN) 300 mg capsuleIndicati ons:Chronic hiccups TAKE 1 CAPSULE(300 MG) BY MOUTH THREE TIMES DAILY 300 capsule 09/23/19 25 025 Discontinued metoclopramide (REGLAN) 10 mg tablet Take 1 tablet (10 mg total) by mouth 4 (four) times a day 120 tablet 2 11/20/19 25 025 Discontinued metoclopramide (REGLAN) 10 mg tablet TAKE 1 TABLET(10 MG) BY MOUTH FOUR TIMES DAILY 120 tablet 2 01/23/20 25 025 Discontinued(Re order) chlorproMAZINE (THORAZINE) 25 mg tablet TAKE 1 TABLET BY MOUTH EVERY 6 HOURS NEEDED FOR HICCUPS 01/13/20 25 025 Discontinued(Re order) Active Problems Patient Care Coordination No te Formatting of this note migh t be different from the original. CAD for BIC Problem Noted Date Diagnosed Date BMI 25.0-25.9,adult 01/31/2025 Assessment & Plan (01/31/2025 8:25 AM CDT): Weight/BMI is in healthy range. Continue healthy lifestyle to maintain. Annual physical exam 11/19/2024 Assessment & Plan (11/19/2024 11:45 PM DIRECTOR OF GRADUATE MEDICAL EDUCATION): Encouraged healthy lifestyle, good nutrition and exercise. Encouraged Calcium and Vitamin D and weight bearing exercise for bone health. Reviewed immunizations Reviewed age appropirate screenings. BMI 23.0-23.9, adult 06/20/2024 Assessment & Plan (10/30/2024 8:57 AM DIRECTOR OF GRADUATE MEDICAL EDUCATION): Weight/BMI is in healthy range. Continue healthy lifestyle to maintain. Assessment & Plan (06/20/2024 7:44 AM CDT): Weight/BMI is in healthy range. Continue healthy lifestyle to maintain. Vitamin D deficiency 11/24/2023 Assessment & Plan (11/19/2024 11:45 PM DIRECTOR OF GRADUATE MEDICAL EDUCATION): Supplement Assessment & Plan (05/20/2024 7:36 PM CDT): Supplement Fatigue 12/12/2022 Assessment & Plan (05/20/2024 7:37 PM CDT): Probably multifactorial. Check labs and followup to re-evaluate Assessment & Plan (11/24/2023 10:35 AM DIRECTOR OF GRADUATE MEDICAL EDUCATION): Probably multifactorial. Check labs and followup to [...] Assessment & Plan (11/19/2024 11:44 PM DIRECTOR OF GRADUATE MEDICAL EDUCATION): Chronic hiccups for 5+ years Has been [...] to the ER. ER recommended referral to [facility] but patient states he can't go to [...] Assessment & Plan (11/24/2023 10:34 AM DIRECTOR OF GRADUATE MEDICAL EDUCATION): Patient has persistent chronic hiccups that come [...] Assessment & Plan (08/15/2023 5:01 PM DIRECTOR OF GRADUATE MEDICAL EDUCATION): Chronic hiccups for years. Has tried multiple interventions along with multiple workups from specialists including Neurology pulmonology and GI. Continue current regimen. Stressed importance of limiting water intake when he has the hiccups spells as this has been leading to hyponatremia requiring hospitalization. Assessment & Plan (08/11/2023 8:45 AM DIRECTOR OF GRADUATE MEDICAL EDUCATION): Patient with chronic hiccups. Have had difficulty [...] Assessment & Plan (08/15/2022 6:45 PM DIRECTOR OF GRADUATE MEDICAL EDUCATION): Patient has consulted with most multiple specialists [...] Assessment & Plan (08/15/2023 5:02 PM DIRECTOR OF GRADUATE MEDICAL EDUCATION): Chronic hiccups for years. Has tried multiple interventions along with multiple workups from specialists including Neurology pulmonology and GI. Continue current regimen. Stressed importance of limiting water intake when he has the hiccups spells as this has been leading to hyponatremia requiring hospitalization. Assessment & Plan (08/11/2023 8:46 AM DIRECTOR OF GRADUATE MEDICAL EDUCATION): Hyponatremia secondary to water intake with chronic [...] Assessment & Plan (11/19/2024 11:44 PM DIRECTOR OF GRADUATE MEDICAL EDUCATION): Continue PPI p.r.n. Assessment & Plan (05/20/2024 7:35 PM CDT): Continue pantoprazole p.r.n. Assessment & Plan (11/24/2023 10:33 AM DIRECTOR OF GRADUATE MEDICAL EDUCATION): Continue pantoprazole p.r.n. Assessment & Plan (04/08/2023 8:48 PM CDT): Continue PPI p.r.n. Assessment & Plan (12/12/2022 9:43 PM CDT): Insert PPI Assessment & Plan (08/15/2022 6:45 PM DIRECTOR OF GRADUATE MEDICAL EDUCATION): Continue PPI prn Assessment & Plan (02/09/2021 8:17 PM CDT): Continue PPI Assessment & Plan (07/29/2020 7:33 AM DIRECTOR OF GRADUATE MEDICAL EDUCATION): Continue PPI Assessment & Plan (03/27/2020 8:01 AM CDT): Dr. Stokes changed him from omeprazole to Pantoprazole for the hiccups. Pt hasn't noted any difference in GERD sxs (still well controlled) or hiccups. Assessment & Plan (09/26/2019 7:38 AM DIRECTOR OF GRADUATE MEDICAL EDUCATION): Continue PPI Assessment & Plan (07/14/2019 8:46 [...] Assessment & Plan (11/19/2024 11:44 PM DIRECTOR OF GRADUATE MEDICAL EDUCATION): Patient with allergies and COPD. Continue Singulair albuterol and Symbicort. Follows with Dr. Valdes. Assessment & Plan (05/20/2024 7:35 PM CDT): Continue per Dr. Valdes. Continue with his Symbicort and albuterol inhalers. Low-dose CT will be scheduled for June 16, 2024. Assessment & Plan (11/24/2023 10:33 AM DIRECTOR OF GRADUATE MEDICAL EDUCATION): COPD. Continue per Dr. Hammond his senior technical recruiter Continue Symbicort Singulair and albuterol p.r.n. Assessment & Plan (04/08/2023 8:48 PM CDT): Encouraged smoking cessation. Continue per Dr. Hammond pulmonology. He is on albuterol Symbicort and Singulair Assessment & Plan (12/12/2022 9:43 PM CDT): Stop smoking. Continue per Pulmonary. Continue Symbicort Singulair and albuterol. Continue monitoring low-dose CTs as instructed Assessment & Plan (08/15/2022 6:44 PM DIRECTOR OF GRADUATE MEDICAL EDUCATION): Stop smoking. Continue current plan per Pulmonary Assessment & Plan (08/01/2021 9:34 PM DIRECTOR OF GRADUATE MEDICAL EDUCATION): Continue per Pulmonary Dr. Valdes Assessment & Plan (02/09/2021 8:15 PM CDT): Stop smoking. Continue per Dr. Valdes Assessment & Plan (07/29/2020 7:32 AM DIRECTOR OF GRADUATE MEDICAL EDUCATION): Continue per Pulm Assessment & Plan (03/27/2020 8:00 AM CDT): Stop smoking. He declines starting inhalers or referral to Pulmonary Assessment & Plan (09/26/2019 10:27 PM DIRECTOR OF GRADUATE MEDICAL EDUCATION): This is a significant, separately identifiable problem [...] Assessment & Plan (07/29/2020 7:33 AM DIRECTOR OF GRADUATE MEDICAL EDUCATION): Needs to repeat ---Dr. Valdes has already ordered Assessment & Plan (03/27/2020 8:00 AM CDT): 06/2019 LDCT Several 2-3mm nodules, probable benign LungRADs 2 --- repeat 06/2020 Assessment & Plan (09/26/2019 10:26 PM DIRECTOR OF GRADUATE MEDICAL EDUCATION): 06/2019 LDCT Several 2-3mm nodules, probable benign LungRADs 2 --- repeat 06/2020 Hyperplastic rectal polyp 05/20/2019 Overview (05/20/2019): Colonoscopy 01/29/2012 at [facility]--->2021 Assessment & Plan (05/28/2019 7:33 PM CDT): Recvd colonoscopy and due to repeat in 2021 Hiatal hernia 05/20/2019 Mixed hyperlipidemia 05/20/2019 Assessment & Plan (11/19/2024 11:45 PM DIRECTOR OF GRADUATE MEDICAL EDUCATION): Encouraged patient to follow low fat/low chol [...] Assessment & Plan (11/24/2023 10:34 AM DIRECTOR OF GRADUATE MEDICAL EDUCATION): Encouraged patient to follow low fat/low chol diet like the Mediterranean diet. Increase good fats in the diet. Increase exercise. Monitor labs as needed. Continue pravastatin 80 Assessment & Plan (08/15/2023 5:03 PM DIRECTOR OF GRADUATE MEDICAL EDUCATION): Encouraged patient to follow low fat/low chol [...] Assessment & Plan (08/01/2021 9:33 PM DIRECTOR OF GRADUATE MEDICAL EDUCATION): Encouraged patient to follow fat/low chol diet [...] Assessment & Plan (07/29/2020 7:34 AM DIRECTOR OF GRADUATE MEDICAL EDUCATION): Encouraged patient to follow fat/low chol diet like the Mediterranean diet. Increase good fats in the diet. Increase exercise. Monitor labs as needed. Assessment & Plan (03/27/2020 8:02 AM CDT): Encouraged patient to continue low fat/low chol diet. Continue exercise. Increase good fats in the diet. Monitor labs as needed. Stable with zetia and pravastatin Assessment & Plan (09/26/2019 7:39 AM DIRECTOR OF GRADUATE MEDICAL EDUCATION): Encouraged patient to continue low fat/low chol [...] Assessment & Plan (08/15/2023 5:03 PM DIRECTOR OF GRADUATE MEDICAL EDUCATION): Patient is legally blind. Continue with Ophthalmology Assessment & Plan (04/08/2023 8:47 PM CDT): No change Assessment & Plan (03/27/2020 8:02 AM CDT): No change Assessment & Plan (09/26/2019 7:39 AM DIRECTOR OF GRADUATE MEDICAL EDUCATION): No change Assessment & Plan (05/28/2019 7:35 PM CDT): No change Cigarette smoker 05/20/2019 Assessment & Plan (08/11/2023 8:45 AM DIRECTOR OF GRADUATE MEDICAL EDUCATION): Encouraged smoking cessation. Discussed 3 minutes. Reviewed [...] Reviewed options for assistance with cessation. Reviewed termination clerk sequela associated with smoking. Pt declines assistance at this time but may contact the office at anytime for further help as they desire. Assessment & Plan (08/15/2022 6:44 PM DIRECTOR OF GRADUATE MEDICAL EDUCATION): Encouraged smoking cessation. Discussed 3 minutes. Reviewed options for assistance with cessation. Reviewed skilled nursing sequela associated with smoking. Pt declines assistance at this time but may contact the office at anytime for further help as they desire. Assessment & Plan (05/09/2022 8:19 PM CDT): Encouraged smoking cessation. Discussed 3 minutes. Reviewed options for assistance with cessation. Reviewed termination clerk sequela associated with smoking. Pt declines assistance at this time but may contact the office at anytime for further help as they desire. Assessment & Plan (08/01/2021 9:33 PM DIRECTOR OF GRADUATE MEDICAL EDUCATION): Encouraged smoking cessation. Discussed 3 minutes. Reviewed options for assistance with cessation. Reviewed skilled nursing sequela associated with smoking. Pt declines assistance at this time but may contact the office at anytime for further help as they desire. Assessment & Plan (05/17/2021 11:41 PM CDT): Encouraged smoking cessation. Discussed 3 minutes. Reviewed options for assistance with cessation. Reviewed termination clerk sequela associated with smoking. Pt declines assistance at this time but may contact the office at anytime for further help as they desire. Assessment & Plan (03/12/2021 12:31 PM CDT): Encouraged smoking cessation. Discussed 3 minutes. Reviewed options for assistance with cessation. Reviewed skilled nursing sequela associated with smoking. He is slowing down. Offered assistance. May call if decides he wants help Assessment & Plan (07/29/2020 7:34 AM DIRECTOR OF GRADUATE MEDICAL EDUCATION): Encouraged smoking cessation. Discussed 3 minutes. Reviewed options for assistance with cessation. Reviewed termination clerk sequela associated with smoking. Pt declines assistance at this time but may contact the office at anytime for further help as they desire. Assessment & Plan (03/27/2020 8:02 AM CDT): Encouraged smoking cessation. Discussed 3 minutes. Reviewed options for assistance with cessation. Reviewed termination clerk sequela associated with smoking. Pt declines assistance at this time but may contact the office at anytime for further help as they desire. Assessment & Plan (09/26/2019 7:39 AM DIRECTOR OF GRADUATE MEDICAL EDUCATION): Encouraged smoking cessation. Discussed 3 minutes. Reviewed [...] Assessment & Plan (11/19/2024 11:45 PM DIRECTOR OF GRADUATE MEDICAL EDUCATION): Pre-diabetes/hyperglycemia is a precursor to Dm. Stressed [...] Assessment & Plan (11/24/2023 10:34 AM DIRECTOR OF GRADUATE MEDICAL EDUCATION): Pre-diabetes/hyperglycemia is a precursor to Dm. Stressed importance of working on diet (decrease your simple sugars and one carbohydrate with each meal) and increase you exercise to achieve weight loss and this will help prevent you from progressing to diabetes. Assessment & Plan (08/15/2023 5:03 PM DIRECTOR OF GRADUATE MEDICAL EDUCATION): Pre-diabetes/hyperglycemia is a precursor to Dm. Stressed [...] Assessment & Plan (08/01/2021 9:33 PM DIRECTOR OF GRADUATE MEDICAL EDUCATION): Pre-diabetes/hyperglycemia is a precursor to Dm. Stressed [...] Assessment & Plan (07/29/2020 7:34 AM DIRECTOR OF GRADUATE MEDICAL EDUCATION): Pre-diabetes is a precursor to Dm. Stressed [...] Assessment & Plan (09/26/2019 10:27 PM DIRECTOR OF GRADUATE MEDICAL EDUCATION): This is a significant, separately identifiable problem [...] 11/24/2023 Assessment & Plan (11/24/2023 10:35 AM DIRECTOR OF GRADUATE MEDICAL EDUCATION): Encouraged healthy lifestyle, good nutrition and exercise. Encouraged Calcium and Vitamin D and weight bearing exercise for bone health. Reviewed immunizations Reviewed age appropirate screenings. Need for influenza vaccination 08/15/2023 11/24/2023 Assessment & Plan (08/15/2023 5:04 PM DIRECTOR OF GRADUATE MEDICAL EDUCATION): Flu vaccine updated in the office today BMI 22.0-22.9, adult 07/22/2023 024 Assessment & Plan (08/11/2023 8:12 AM DIRECTOR OF GRADUATE MEDICAL EDUCATION): Weight/BMI is in healthy range. Continue healthy [...] Assessment & Plan (08/15/2022 6:45 PM DIRECTOR OF GRADUATE MEDICAL EDUCATION): Flu updated in the office today BMI [...] test outpatient. Was referred to an outside jailkeeper. Encouraged to consider seeing a [facility] Medical group of cardiologists so all of his providers are in the same system. He is in agreement. Referral made to Dr. Eduardo as he has multiple risk factors. BMI 23.0-23.9, adult 01/21/2022 Assessment & Plan (01/21/2022 11:10 AM CDT): Weight/BMI is in healthy range. Continue healthy lifestyle to maintain. BMI 21.0-21.9, adult 08/01/2021 022 Assessment & Plan (08/01/2021 7:28 AM DIRECTOR OF GRADUATE MEDICAL EDUCATION): Weight/BMI is in healthy range. Continue healthy lifestyle to maintain. Medicare annual wellness visit, subsequent 08/01/2021 08/15/2022 Assessment & Plan (08/01/2021 9:34 PM DIRECTOR OF GRADUATE MEDICAL EDUCATION): Encouraged healthy lifestyle, good nutrition and exercise. Encouraged Calcium and Vitamin D and weight bearing exercise for bone health. Reviewed immunizations. Reviewed age appropirate screenings. Medicare Wellness Documentation is completed within the chart Fatigue 05/17/2021 05/02/2022 Assessment & Plan (08/01/2021 9:34 PM DIRECTOR OF GRADUATE MEDICAL EDUCATION): Probably multifactorial. Check labs and followup to re-evaluate BMI 21.0-21.9, adult 05/08/2021 021 Assessment & Plan (05/08/2021 7:58 AM CDT): Weight/BMI is in healthy range. Continue healthy lifestyle to maintain. Pneumonia due to infectious orga [id number]|2025-02-02 20:02:00|2025-02-02 20:01:00|XMS_ITS|SOURAV ONEAL|External Medical Summaries|[id number]|" Referral Summary Created on: February 02, 2025 Mark Hines Justo : 1960 Sex: Male Author Organization [facility] [address] [facility] Address [address] [place] [id number] Care Team Providers Care Senior Asset Manager Name Role Phone Nuris Berger Primary Care Provider [phone] Jonatan Stokes MD Unavailable [phone] Irma Bajwa MD Unavailable [phone] Encounters Date Type Department Care Team Description 01/31/2025 Results Follow-Up [facility] Family Medicine [address] [place] [address] [address] [place] [address] Nuris Berger PA 01/31/[address] [place] [address] Nuris Berger PA Medical Question/Miscellane ous 01/31/2025 8:30 AM CDT Office Visit [address] [place] [address] Nuris Berger PA BMI 25.0-25.9,adult (Primary Dx); Hyponatremia 12/29/2024 DEBBIE IP Outreach [facility] Accountable Care Organization [address] [place] [address] Anahi Phipps MA 12/27/[address] [place] [phone] Nuris Berger PA 12/26/2024 Orders Only [facility] Health Information Management [address] [place] [id number] Scanning, Provider 12/26/[address] [place] [phone] Nuris Berger PA 12/21/2024 Orders Only [facility] Health Information Management [address] [place] [phone] Scanning, Provider 12/06/2024 9:30 AM CDT Office Visit [facility] Pulmonology [address] [place] [phone] Tasia Hoffman MD Chronic obstructive pulmonary disease, unspecified COPD type (HCC) (Primary Dx); Mild persistent asthma without complication; Non-seasonal allergic rhinitis due to other allergic trigger; Nicotine dependence, cigarettes, in remission from Last 3 Months Allergies Active Allergy [...] NIGHT 90 tablet 2 07/17/20 24 Active budesonide-form oteroL (SYMBICORT) 80-4.5 mcg/actuation inhalerIndicati ons:Mild persistent asthma without complication,Ch ronic obstructive pulmonary disease, unspecified COPD type (HCC) INHALE 2 PUFFS BY MOUTH TWICE DAILY. RINSE MOUTH WITH WATER AFTER USE. DO NOT SWALLOW 30.6 g 1 09/18/20 24 Active pravastatin (PRAVACHOL) 80 mg tablet Take 1 tablet (80 mg total) by mouth daily 90 tablet 1 11/20/19 25 Active sodium chloride 1 gram [...] daily 90 tablet 2 12/08/19 25 Active gabapentin (NEURONTIN) 300 mg capsuleIndicati ons:Chronic hiccups TAKE 1 CAPSULE(300 MG) BY MOUTH THREE TIMES DAILY 300 capsule 01/23/20 25 Active losartan (COZAAR) 50 mg tablet TAKE 1 TABLET(50 MG) BY MOUTH DAILY 90 tablet 1 01/23/20 25 Active chlorproMAZINE (THORAZINE) 25 mg tablet Take 1 tablet (25 mg total) by mouth 4 (four) times a day as needed (hiccups) 30 tablet 02/01/20 25 Active metoclopramide (REGLAN) 10 mg tablet Take 1 tablet (10 mg total) by mouth 4 (four) times a day as needed (hiccups) 30 tablet 02/01/20 25 Active losartan (COZAAR) 50 mg tablet TAKE 1 TABLET(50 MG) BY MOUTH DAILY 90 tablet 1 07/17/20 24 025 Discontinued gabapentin (NEURONTIN) 300 mg capsuleIndicati ons:Chronic hiccups TAKE 1 CAPSULE(300 MG) BY MOUTH THREE TIMES DAILY 300 capsule 09/23/19 25 025 Discontinued metoclopramide (REGLAN) 10 mg tablet Take 1 tablet (10 mg total) by mouth 4 (four) times a day 120 tablet 2 11/20/19 25 025 Discontinued metoclopramide (REGLAN) 10 mg tablet TAKE 1 TABLET(10 MG) BY MOUTH FOUR TIMES DAILY 120 tablet 2 01/23/20 25 025 Discontinued(Re order) chlorproMAZINE (THORAZINE) 25 mg tablet TAKE 1 TABLET BY MOUTH EVERY 6 HOURS NEEDED FOR HICCUPS 04/ 025 Discontinued(Re order) Active Problems Patient Care Coordination No te Formatting of this note migh t be different from the original. CAD for BIC Problem Noted Date Diagnosed Date BMI 25.0-25.9,adult 01/31/2025 Assessment & Plan (01/31/2025 8:25 AM CDT): Weight/BMI is in healthy range. Continue healthy lifestyle to maintain. Annual physical exam 11/19/2024 Assessment & Plan (11/19/2024 11:45 PM DIRECTOR OF GRADUATE MEDICAL EDUCATION): Encouraged healthy lifestyle, good nutrition and exercise. Encouraged Calcium and Vitamin D and weight bearing exercise for bone health. Reviewed immunizations Reviewed age appropirate screenings. BMI 23.0-23.9, adult 06/20/2024 Assessment & Plan (10/30/2024 8:57 AM DIRECTOR OF GRADUATE MEDICAL EDUCATION): Weight/BMI is in healthy range. Continue healthy lifestyle to maintain. Assessment & Plan (06/20/2024 7:44 AM CDT): Weight/BMI is in healthy range. Continue healthy lifestyle to maintain. Vitamin D deficiency 11/24/2023 Assessment & Plan (11/19/2024 11:45 PM DIRECTOR OF GRADUATE MEDICAL EDUCATION): Supplement Assessment & Plan (05/20/2024 7:36 PM CDT): Supplement Fatigue 12/12/2022 Assessment & Plan (05/20/2024 7:37 PM CDT): Probably multifactorial. Check labs and followup to re-evaluate Assessment & Plan (11/24/2023 10:35 AM DIRECTOR OF GRADUATE MEDICAL EDUCATION): Probably multifactorial. Check labs and followup to [...] Assessment & Plan (11/19/2024 11:44 PM DIRECTOR OF GRADUATE MEDICAL EDUCATION): Chronic hiccups for 5+ years Has been [...] to the ER. ER recommended referral to [facility] but patient states he can't go to [...] Assessment & Plan (11/24/2023 10:34 AM DIRECTOR OF GRADUATE MEDICAL EDUCATION): Patient has persistent chronic hiccups that come [...] Assessment & Plan (08/15/2023 5:01 PM DIRECTOR OF GRADUATE MEDICAL EDUCATION): Chronic hiccups for years. Has tried multiple interventions along with multiple workups from specialists including Neurology pulmonology and GI. Continue current regimen. Stressed importance of limiting water intake when he has the hiccups spells as this has been leading to hyponatremia requiring hospitalization. Assessment & Plan (08/11/2023 8:45 AM DIRECTOR OF GRADUATE MEDICAL EDUCATION): Patient with chronic hiccups. Have had difficulty [...] Assessment & Plan (08/15/2022 6:45 PM DIRECTOR OF GRADUATE MEDICAL EDUCATION): Patient has consulted with most multiple specialists [...] Assessment & Plan (08/15/2023 5:02 PM DIRECTOR OF GRADUATE MEDICAL EDUCATION): Chronic hiccups for years. Has tried multiple interventions along with multiple workups from specialists including Neurology pulmonology and GI. Continue current regimen. Stressed importance of limiting water intake when he has the hiccups spells as this has been leading to hyponatremia requiring hospitalization. Assessment & Plan (08/11/2023 8:46 AM DIRECTOR OF GRADUATE MEDICAL EDUCATION): Hyponatremia secondary to water intake with chronic [...] Assessment & Plan (11/19/2024 11:44 PM DIRECTOR OF GRADUATE MEDICAL EDUCATION): Continue PPI p.r.n. Assessment & Plan (05/20/2024 7:35 PM CDT): Continue pantoprazole p.r.n. Assessment & Plan (11/24/2023 10:33 AM DIRECTOR OF GRADUATE MEDICAL EDUCATION): Continue pantoprazole p.r.n. Assessment & Plan (04/08/2023 8:48 PM CDT): Continue PPI p.r.n. Assessment & Plan (12/12/2022 9:43 PM CDT): Insert PPI Assessment & Plan (08/15/2022 6:45 PM DIRECTOR OF GRADUATE MEDICAL EDUCATION): Continue PPI prn Assessment & Plan (02/09/2021 8:17 PM CDT): Continue PPI Assessment & Plan (07/29/2020 7:33 AM DIRECTOR OF GRADUATE MEDICAL EDUCATION): Continue PPI Assessment & Plan (03/27/2020 8:01 AM CDT): Dr. Stokes changed him from omeprazole to Pantoprazole for the hiccups. Pt hasn't noted any difference in GERD sxs (still well controlled) or hiccups. Assessment & Plan (09/26/2019 7:38 AM DIRECTOR OF GRADUATE MEDICAL EDUCATION): Continue PPI Assessment & Plan (07/14/2019 8:46 [...] Assessment & Plan (11/19/2024 11:44 PM DIRECTOR OF GRADUATE MEDICAL EDUCATION): Patient with allergies and COPD. Continue Singulair albuterol and Symbicort. Follows with Dr. Valdes. Assessment & Plan (05/20/2024 7:35 PM CDT): Continue per Dr. Valdes. Continue with his Symbicort and albuterol inhalers. Low-dose CT will be scheduled for June 16, 2024. Assessment & Plan (11/24/2023 10:33 AM DIRECTOR OF GRADUATE MEDICAL EDUCATION): COPD. Continue per Dr. Hammond his senior technical recruiter Continue Symbicort Singulair and albuterol p.r.n. Assessment & Plan (04/08/2023 8:48 PM CDT): Encouraged smoking cessation. Continue per Dr. Hammond pulmonology. He is on albuterol Symbicort and Singulair Assessment & Plan (12/12/2022 9:43 PM CDT): Stop smoking. Continue per Pulmonary. Continue Symbicort Singulair and albuterol. Continue monitoring low-dose CTs as instructed Assessment & Plan (08/15/2022 6:44 PM DIRECTOR OF GRADUATE MEDICAL EDUCATION): Stop smoking. Continue current plan per Pulmonary Assessment & Plan (08/01/2021 9:34 PM DIRECTOR OF GRADUATE MEDICAL EDUCATION): Continue per Pulmonary Dr. Valdes Assessment & Plan (02/09/2021 8:15 PM CDT): Stop smoking. Continue per Dr. Valdes Assessment & Plan (07/29/2020 7:32 AM DIRECTOR OF GRADUATE MEDICAL EDUCATION): Continue per Pulm Assessment & Plan (03/27/2020 8:00 AM CDT): Stop smoking. He declines starting inhalers or referral to Pulmonary Assessment & Plan (09/26/2019 10:27 PM DIRECTOR OF GRADUATE MEDICAL EDUCATION): This is a significant, separately identifiable problem [...] Assessment & Plan (07/29/2020 7:33 AM DIRECTOR OF GRADUATE MEDICAL EDUCATION): Needs to repeat ---Dr. Valdes has already ordered Assessment & Plan (03/27/2020 8:00 AM CDT): 06/2019 LDCT Several 2-3mm nodules, probable benign LungRADs 2 --- repeat 06/2020 Assessment & Plan (09/26/2019 10:26 PM DIRECTOR OF GRADUATE MEDICAL EDUCATION): 06/2019 LDCT Several 2-3mm nodules, probable benign LungRADs 2 --- repeat 06/2020 Hyperplastic rectal polyp 05/20/2019 Overview (05/20/2019): Colonoscopy 01/29/2012 at [facility]--->2021 Assessment & Plan (05/28/2019 7:33 PM CDT): Recvd colonoscopy and due to repeat in 2021 Hiatal hernia 05/20/2019 Mixed hyperlipidemia 05/20/2019 Assessment & Plan (11/19/2024 11:45 PM DIRECTOR OF GRADUATE MEDICAL EDUCATION): Encouraged patient to follow low fat/low chol [...] Assessment & Plan (11/24/2023 10:34 AM DIRECTOR OF GRADUATE MEDICAL EDUCATION): Encouraged patient to follow low fat/low chol diet like the Mediterranean diet. Increase good fats in the diet. Increase exercise. Monitor labs as needed. Continue pravastatin 80 Assessment & Plan (08/15/2023 5:03 PM DIRECTOR OF GRADUATE MEDICAL EDUCATION): Encouraged patient to follow low fat/low chol [...] Assessment & Plan (08/01/2021 9:33 PM DIRECTOR OF GRADUATE MEDICAL EDUCATION): Encouraged patient to follow fat/low chol diet [...] Assessment & Plan (07/29/2020 7:34 AM DIRECTOR OF GRADUATE MEDICAL EDUCATION): Encouraged patient to follow fat/low chol diet like the Mediterranean diet. Increase good fats in the diet. Increase exercise. Monitor labs as needed. Assessment & Plan (03/27/2020 8:02 AM CDT): Encouraged patient to continue low fat/low chol diet. Continue exercise. Increase good fats in the diet. Monitor labs as needed. Stable with zetia and pravastatin Assessment & Plan (09/26/2019 7:39 AM DIRECTOR OF GRADUATE MEDICAL EDUCATION): Encouraged patient to continue low fat/low chol [...] Assessment & Plan (08/15/2023 5:03 PM DIRECTOR OF GRADUATE MEDICAL EDUCATION): Patient is legally blind. Continue with Ophthalmology Assessment & Plan (04/08/2023 8:47 PM CDT): No change Assessment & Plan (03/27/2020 8:02 AM CDT): No change Assessment & Plan (09/26/2019 7:39 AM DIRECTOR OF GRADUATE MEDICAL EDUCATION): No change Assessment & Plan (05/28/2019 7:35 PM CDT): No change Cigarette smoker 05/20/2019 Assessment & Plan (08/11/2023 8:45 AM DIRECTOR OF GRADUATE MEDICAL EDUCATION): Encouraged smoking cessation. Discussed 3 minutes. Reviewed options for assistance with cessation. Reviewed skilled nursing sequela associated with smoking. Pt declines assistance at this time but may contact the office at anytime for further help as they desire. Assessment & Plan (04/08/2023 8:47 PM CDT): Encouraged smoking cessation. Discussed 3 minutes. Reviewed options for assistance with cessation. Reviewed termination clerk sequela associated with smoking. Pt declines assistance at this time but may contact the office at anytime for further help as they desire. Low-dose CT will be due in May. It is already scheduled Assessment & Plan (12/12/2022 9:42 PM CDT): Encouraged smoking cessation. Discussed 3 minutes. Reviewed options for assistance with cessation. Reviewed termination clerk sequela associated with smoking. Pt declines assistance at this time but may contact the office at anytime for further help as they desire. Assessment & Plan (08/15/2022 6:44 PM DIRECTOR OF GRADUATE MEDICAL EDUCATION): Encouraged smoking cessation. Discussed 3 minutes. Reviewed options for assistance with cessation. Reviewed skilled nursing sequela associated with smoking. Pt declines assistance at this time but may contact the office at anytime for further help as they desire. Assessment & Plan (05/09/2022 8:19 PM CDT): Encouraged smoking cessation. Discussed 3 minutes. Reviewed options for assistance with cessation. Reviewed termination clerk sequela associated with smoking. Pt declines assistance at this time but may contact the office at anytime for further help as they desire. Assessment & Plan (08/01/2021 9:33 PM DIRECTOR OF GRADUATE MEDICAL EDUCATION): Encouraged smoking cessation. Discussed 3 minutes. Reviewed options for assistance with cessation. Reviewed termination clerk sequela associated with smoking. Pt declines assistance at this time but may contact the office at anytime for further help as they desire. Assessment & Plan (05/17/2021 11:41 PM CDT): Encouraged smoking cessation. Discussed 3 minutes. Reviewed options for assistance with cessation. Reviewed termination clerk sequela associated with smoking. Pt declines assistance at this time but may contact the office at anytime for further help as they desire. Assessment & Plan (03/12/2021 12:31 PM CDT): Encouraged smoking cessation. Discussed 3 minutes. Reviewed options for assistance with cessation. Reviewed skilled nursing sequela associated with smoking. He is slowing down. Offered assistance. May call if decides he wants help Assessment & Plan (07/29/2020 7:34 AM DIRECTOR OF GRADUATE MEDICAL EDUCATION): Encouraged smoking cessation. Discussed 3 minutes. Reviewed options for assistance with cessation. Reviewed skilled nursing sequela associated with smoking. Pt declines assistance at this time but may contact the office at anytime for further help as they desire. Assessment & Plan (03/27/2020 8:02 AM CDT): Encouraged smoking cessation. Discussed 3 minutes. Reviewed options for assistance with cessation. Reviewed termination clerk sequela associated with smoking. Pt declines assistance at this time but may contact the office at anytime for further help as they desire. Assessment & Plan (09/26/2019 7:39 AM DIRECTOR OF GRADUATE MEDICAL EDUCATION): Encouraged smoking cessation. Discussed 3 minutes. Reviewed options for assistance with cessation. Reviewed termination clerk sequela associated with smoking. Pt declines assistance [...] Assessment & Plan (11/19/2024 11:45 PM DIRECTOR OF GRADUATE MEDICAL EDUCATION): Pre-diabetes/hyperglycemia is a precursor to Dm. Stressed [...] Assessment & Plan (11/24/2023 10:34 AM DIRECTOR OF GRADUATE MEDICAL EDUCATION): Pre-diabetes/hyperglycemia is a precursor to Dm. Stressed importance of working on diet (decrease your simple sugars and one carbohydrate with each meal) and increase you exercise to achieve weight loss and this will help prevent you from progressing to diabetes. Assessment & Plan (08/15/2023 5:03 PM DIRECTOR OF GRADUATE MEDICAL EDUCATION): Pre-diabetes/hyperglycemia is a precursor to Dm. Stressed [...] Assessment & Plan (08/01/2021 9:33 PM DIRECTOR OF GRADUATE MEDICAL EDUCATION): Pre-diabetes/hyperglycemia is a precursor to Dm. Stressed [...] Assessment & Plan (07/29/2020 7:34 AM DIRECTOR OF GRADUATE MEDICAL EDUCATION): Pre-diabetes is a precursor to Dm. Stressed [...] Assessment & Plan (09/26/2019 10:27 PM DIRECTOR OF GRADUATE MEDICAL EDUCATION): This is a significant, separately identifiable problem [...] Assessment & Plan (11/24/2023 10:35 AM DIRECTOR OF GRADUATE MEDICAL EDUCATION): Encouraged healthy lifestyle, good nutrition and exercise. Encouraged Calcium and Vitamin D and weight bearing exercise for bone health. Reviewed immunizations Reviewed age appropirate screenings. Need for influenza vaccination 08/15/2023 11/24/2023 Assessment & Plan (08/15/2023 5:04 PM DIRECTOR OF GRADUATE MEDICAL EDUCATION): Flu vaccine updated in the office today BMI 22.0-22.9, adult 07/22/2023 024 Assessment & Plan (08/11/2023 8:12 AM DIRECTOR OF GRADUATE MEDICAL EDUCATION): Weight/BMI is in healthy range. Continue healthy [...] Assessment & Plan (08/15/2022 6:45 PM DIRECTOR OF GRADUATE MEDICAL EDUCATION): Flu updated in the office today BMI 24.0-24.9, adult 07/23/2022 023 Assessment & Plan (0
--- OUTSIDE RECORDS SUMMARY | 2025-02-02 20:02 | XMS_ITS | Encounter Summary ---
Author Organization [facility] Healthcare Address [address] [place] [address] Care Team Providers Care Corporate Paralegal Name Role Phone Nuris Berger Primary Care Provider [phone] Jonatan Stokes MD Unavailable [phone] Irma Bajwa MD Unavailable [phone] Encounter Details Date Type Department Care Team (Late st Contact Info) Description 12/21/2024 Orders Only [facility] [place] [address] [place] [address] Scanning, Provider Social History Tobacco Use Types Packs/Day Years Used Date Smoking Tobacco: Former Cigarettes 0.8 40 0 09/1981 - 09/2021 Smokeless Tobacco: Never Alcohol Use Standard Drinks/Week Comments Yes 0 (1 standard drink = 0.6 oz pur e alcohol) social [facility] Utilities Answer Date Recorded In the past 12 months has [employer], gas, oil, or water [employer] threatened to shut off services in your [...] do you attend [facility] or baptism services? 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 Gender Identity Not on file Sexual Orientation Not on file Occupation Industry Job Start Date Job End Date Disabled Not on file Not on file Not on file documented as of this encounter Plan of Treatment Not on file documented as of this encounter Procedures Procedure Name Priority Date/Time Associated Diagnosis Comments SCAN - LABS 12/21/2024 documented in this encounter Results * SCAN - LABS (12/21/2024) us Provider Scanning Final Result documented in this encounter Visit Diagnoses Not on filedocumented in this encounter Care Teams Corporate Paralegal Relationship Specialty Start Date End Date Nuris Berger PA [address] [place] [address] PCP - General Internal Medicine 12/28/18 Jonatan Stokes MD [address] [place] [address] Consulting Physician Otolaryngology 03/27/20 Irma Bajwa MD [facility] [place] [address] Consulting Physician Neurology 05/07/22 documented as of this encounter
--- OUTSIDE RECORDS SUMMARY | 2025-02-02 20:02 | XMS_ITS | Clinical Summary ---
Author Organization [facility] Address [address] [place] [address] Care Team Providers Care Plate Mounter Name Role Phone Nuris Berger PA-C Primary Care Provider [phone] Source Comments [facility],non-owned Affiliates and Associated Physician Practices is amultiple site organization consisting of ambulatory clinics and hospital sitesin [place], [place], [place] and [place]. This disclosure is being madepursuant to the Care Everywhere program and may not contain all information available regarding this patient. Last updated 18.[facility] Allergies Active Allergy Reactions Criticality Noted Date [...] tablet 06/17/2023 Active ergocalciferol (Drisdol) 1.25 MG (13659 UT) capsule Take 1 (one) capsule by [...] 11 07/21/2024 Active trimethoprim-po lymyxin B (Polytrim) 04762-7.1 UNIT/ML-% ophthalmic solution Instill 1 (one) drop [...] Reviewed options for assistance with cessation. Reviewed nursing home sequela associated with smoking. Pt declines [...] polyp 05/20/2019 Overview (12/24/2020): Colonoscopy 01/29/2012 at [facility]--->2021 Last Assessment & Plan: Recvd colonoscopy and [...] Description 12/13/2024 9:15 AM CDT Office Visit [facility] - Ophthalmology [address] [place] [phone] Louis Hansen MD H/O cornea transplant (Primary Dx); Pseudophakia 12/13/2024 Travel 12/01/2024 8:30 AM CDT Clinical Support [facility] - Ophthalmology [address] [place] [phone] Tyrel Velez MD 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 (Primary Dx) 12/01/2024 8:25 AM CDT Clinical Support [facility] - Ophthalmology [address] [place] [phone] Tyrel Velez MD 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 (Primary Dx) 12/01/2024 8:20 AM CDT Office Visit [facility] - Ophthalmology [address] [place] [phone] Tyrel Velez MD 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 (Primary Dx); H/O cornea transplant; Central corneal opacity, left 12/01/2024 8:15 AM CDT Clinical Support [facility] - Ophthalmology [address] [place] [phone] Tyrel Velez MD 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 (Primary Dx) 12/01/2024 Travel from Last 3 Months Immunizations Immunization Administration Dates Next Due SnapSense primary monoval ent 12+ yr 0.3mL Purple [...] Comments Blood Pressure 128/70 08/26/2023 12:43 PM SOFTWARE ENGINEER BACKEND Pulse 65 08/26/2023 12:43 PM SOFTWARE ENGINEER BACKEND Temperature 35.9 C (96.7 F) 08/26/2023 12:34 PM SOFTWARE ENGINEER BACKEND Respiratory Rate 14 08/26/2023 12:43 PM SOFTWARE ENGINEER BACKEND Oxygen Saturation 98% 08/26/2023 12:34 PM SOFTWARE ENGINEER BACKEND Inhaled Oxygen Concentration - - Weight 64.9 kg (143 lb) 08/26/2023 9:01 AM SOFTWARE ENGINEER BACKEND Height 172.7 cm (5' 8 ) 08/26/2023 9:01 AM SOFTWARE ENGINEER BACKEND Body Mass Index 21.74 08/26/2023 9:01 AM SOFTWARE ENGINEER BACKEND Plan of Treatment Upcoming Encounters Date Type Department Care Team (Late st Contact Info) Description 04/18/2025 9:15 AM CDT Office Visit [facility] - Ophthalmology [address] [place] [phone] Louis Hansen MD [address] [place] [address] [place] [phone] 08/07/2025 8:40 AM SOFTWARE ENGINEER BACKEND Office Visit [facility] - Ophthalmology [address] [place] [phone] Tyrel Velez MD [address] [place] [phone] Health Maintenance Due Date Last Done Comments [...] this topic Medical Devices Implanted Type Area Audio Visual Secretary Device Identifier Shelf Expiration Date Model / Serial / Lot Drain Glcm Thk.9mm Blnt Tpr [facility] Flxb - [id number] Implanted:Qty: 1 on 05/04/2018 by Tyrel Velez MD at [facility] Left: Eye [facility] [place] 03/15/2020 7 / [id number] / [id number] Graft Tissue Ttplst Sclr .8x.5cm Lopro - [id number] Implanted:Qty: 1 on 05/04/2018 by Tyrel Velez MD at [facility] Left: Eye [employer] 01/17/2023 [id number] / [id number] / [id number] Impl Opth 250sq Mm Brvldt Magaly 1 Qdrnt - [id number] Implanted:Qty: 1 on 06/16/2023 by Tyrel Velez MD at [facility] Left: Eye [employer] 01/09/2024 [id number] / [id number] / Graft Tissue Ttpl Ioptch Sclr .8x.5cm - [id number] Implanted:Qty: 1 on 06/16/2023 by Tyrel Velez MD at [facility] Left: Eye [employer] 09/19/2027 [id number] / [id number] / Graft Tissue Ttpl Ioptch Sclr .8x.5cm - [id number] Implanted:Qty: 1 on 06/16/2023 by Tyrel Velez MD at [facility] Left: Eye [employer] 09/19/2027 [id number] / [id number] / J Luis Cornea - [id number] Implanted:Qty: 1 on 08/26/2023 by Louis Hansen MD at [facility] Left: Eye [employer] [facility] 09/05/2023 [id number] / [id number] / [id number] Description:Product Numb:[id number] EXP:09-05-2023 DIN:[id number] Insurance AETNA MEDICARE ADV AETNA Advance Directives * Full Code (Latest Code Status on File) Date Activated Date Inactivated Comments 05/04/2018 11:35 AM 05/04/2018 1:21 PM * Full Code Date Activated Date Inactivated Comments 05/04/2018 7:43 AM 05/04/2018 11:35 AM Care Teams Plate Mounter Relationship Specialty Start Date End Date Nuris Berger PA-C PCP - General 02/13/20
--- OUTSIDE RECORDS SUMMARY | 2025-02-02 20:02 | XMS_ITS | Clinical Summary ---
Author Organization [facility] Address [facility] [place] [address] Care Team Providers Care Alcoholic Counselor Name Role Phone Nuris Berger Primary Care Provider [phone] Allergies No known active allergies Medications albuterol [...] Comments Blood Pressure 120/62 09/04/2021 8:52 AM TEACHER EARLY CHILDHOOD DEVELOPMENT Pulse 82 09/04/2021 8:52 AM TEACHER EARLY CHILDHOOD DEVELOPMENT Temperature 36.3 C (97.4 F) 09/04/2021 8:52 AM TEACHER EARLY CHILDHOOD DEVELOPMENT Respiratory Rate 16 09/04/2021 8:52 AM TEACHER EARLY CHILDHOOD DEVELOPMENT Oxygen Saturation 97% 09/04/2021 8:52 AM TEACHER EARLY CHILDHOOD DEVELOPMENT Inhaled Oxygen Concentration - - Weight 64.4 kg (142 lb) 09/04/2021 8:52 AM TEACHER EARLY CHILDHOOD DEVELOPMENT Height 172.7 cm (5' 8 ) 09/04/2021 8:52 AM TEACHER EARLY CHILDHOOD DEVELOPMENT Body Mass Index 21.59 09/04/2021 8:52 AM TEACHER EARLY CHILDHOOD DEVELOPMENT Plan of Treatment Health Maintenance Due Date [...] complete this topic Insurance AETNA Care Teams Alcoholic Counselor Relationship Specialty Start Date End Date Nuris Berger PA [address] [place], [place] [id number] PCP - General PHYSICIAN CITY TREASURER 06/09/21
[2025-02-02 20:14] VITALS: BP 148/67; PULSE 87; RESP 20; TEMP 37.1; O2SAT 100
[2025-02-02 20:17] VITALS: BP 144/71; PULSE 93
--- NOTE | 2025-02-02 20:17 | ECG_ITS ---
Test Date: 2025-02-02 22:58:10 Measurements Intervals [place] Rate: 75 P: 37 AL: 133 QRS: 42 QRSD: 84 T: 51 QT: 383 QTc: 429 Interpretive Statements SINUS RHYTHM NORMAL ECG Compared to ECG 12/26/2024 06:32:08 No significant changes Electronically Signed On 02-03-2025 08:08:54 CDT by Farshad Giang M.D.
[2025-02-02 22:42] VITALS: BP 122/62; PULSE 81; RESP 18; TEMP 36.7; O2SAT 98
[2025-02-02 23:17] LABS: Basophils Absolute Auto 0.1 K/mm3 (0.0-0.1); Basophils Percent Auto 0.4 % (0.2-1.2); Eosinophils Absolute Auto 0.2 K/mm3 (0-0.3); Hematocrit 34.1 % (42.0-52.0); Hemoglobin 11.1 g/dL (14.0-18.0); Immature Granulocyte Absolute 0.06 K/mm3 (0.00-0.031); Immature Granulocyte Percent A 0.4 % (0-0.5); Lymphocytes Absolute Auto 0.58 K/mm3 (0.9-3.2); Lymphocytes Percent Auto 3.7 % (18.3-44.2); Mean Corpuscular HGB Conc 32.6 g/dl (32-36); Mean Corpuscular Hemoglobin 28.8 pg (26-34); Mean Corpuscular Volume 88.3 fl (80-100); Monocytes Absolute Auto 0.4 K/mm3 (0.1-0.6); Monocytes Percent Auto 2.4 % (2.6-8.5); Neutrophils Absolute Auto 14.5 K/mm3 (1.3-6.7); Neutrophils Percent Auto 92.1 % (45.5-73.1); Platelet Count Result 199 k/mm3 (150-375); Red Blood Count 3.86 M/mm3 (4.6-6.20); Red Cell Distribution Width 13.6 % (11.5-14.5); White Blood Count 15.7 K/mm3 (4.5-10.0)
[2025-02-02 23:32] LABS: Alanine Aminotransferase 13 U/L (6-50); Albumin Level 4.1 g/dL (3.5-5.1); Alkaline Phosphatase 54 U/L (38-126); Anion Gap 11 mmol/L (4-12); Aspartate Amino Transferase 22 U/L (17-59); Bilirubin,Total 0.5 mg/dL (0.2-1.3); Blood Urea Nitrogen 12 mg/dL (9-20); Calcium 9.4 mg/dL (8.4-10.2); Carbon Dioxide 22 mmol/L (22-30); Chloride 93 mmol/L (98-107); Estimated CRCL calculation 84 ml/min; Estimated Glomerular Filt Rate > 60; Glucose 130 mg/dL (65-110); Potassium 4.1 mmol/L (3.4-5.0); Sodium 126 mmol/L (137-145)
[2025-02-03 02:39] VITALS: BP 145/75; PULSE 84
[2025-02-03 02:42] VITALS: BP 146/63; PULSE 80
[2025-02-03 02:56] VITALS: BP 144/71; PULSE 84; RESP 20; O2SAT 99
[2025-02-03 03:14] LABS: Anion Gap 9 mmol/L (4-12); Blood Urea Nitrogen 11 mg/dL (9-20); Calcium 9.6 mg/dL (8.4-10.2); Carbon Dioxide 26 mmol/L (22-30); Chloride 94 mmol/L (98-107); Estimated CRCL calculation 81 ml/min; Estimated Glomerular Filt Rate > 60; Glucose 131 mg/dL (65-110); Potassium 4.9 mmol/L (3.4-5.0); Sodium 129 mmol/L (137-145)
[2025-02-03 03:15] LABS: Add Urine Microscopic? NO; Appearance Urine Clear (Clear); Bilirubin Urine Negative (Negative); Blood Urine Negative (Negative); Color Urine Yellow (Yellow); Glucose Urine UA Negative (Negative); Ketones Urine Negative (Negative); Leukocyte Esterase Ur Negative LEU/UL (Negative); Nitrate Urine Negative (Negative); Protein Urine Negative (Negative); Specific Grav Ur 1.004 (1.001-1.035); Urobilinogen Urine 0.2 mg/dL (<2.0); pH Urine 6.5 (5.0-9.0)
--- OUTSIDE RECORDS SUMMARY | 2025-02-03 03:23 | XMS_ITS | Encounter Summary ---
Author Organization [facility] Healthcare Address [address] [place] [address] Care Team Providers Care Barn Hand Name Role Phone Nuris Berger Primary Care Provider [phone] Jonatan Stokes MD Unavailable [phone] Irma Bajwa MD Unavailable [phone] Encounter Details Date Type Department Care Team (Late st Contact Info) Description 12/26/2024 Orders Only [facility] Health Information Management [address] [place] [address] Scanning, Provider Social History Tobacco Use Types Packs/Day Years Used Date Smoking Tobacco: Former Cigarettes 0.8 40 0 09/1981 - 09/2021 Smokeless Tobacco: Never Alcohol Use Standard Drinks/Week Comments Yes 0 (1 standard drink = 0.6 oz pur e alcohol) social [facility] Utilities Answer Date Recorded In the past 12 months has [employer], gas, oil, or water [employer] threatened to shut off services in your [...] week 12/03/2023 How often do you attend [facility] or religion services? 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
--- OUTSIDE RECORDS SUMMARY | 2025-02-03 03:23 | XMS_ITS | Clinical Summary ---
Author Organization [facility] Address [facility] [place] [address] Care Team Providers Care Calibration Engineer Name Role Phone Nuris Berger Primary Care Provider [phone] Allergies No known active allergies Medications albuterol [...] Comments Blood Pressure 120/62 09/04/2021 8:52 AM LIABILITY CLAIMS EXAMINER Pulse 82 09/04/2021 8:52 AM LIABILITY CLAIMS EXAMINER Temperature 36.3 C (97.4 F) 09/04/2021 8:52 AM LIABILITY CLAIMS EXAMINER Respiratory Rate 16 09/04/2021 8:52 AM LIABILITY CLAIMS EXAMINER Oxygen Saturation 97% 09/04/2021 8:52 AM LIABILITY CLAIMS EXAMINER Inhaled Oxygen Concentration - - Weight 64.4 kg (142 lb) 09/04/2021 8:52 AM LIABILITY CLAIMS EXAMINER Height 172.7 cm (5' 8 ) 09/04/2021 8:52 AM LIABILITY CLAIMS EXAMINER Body Mass Index 21.59 09/04/2021 8:52 AM LIABILITY CLAIMS EXAMINER Plan of Treatment Health Maintenance Due Date [...] complete this topic Insurance AETNA Care Teams Calibration Engineer Relationship Specialty Start Date End Date Nuris Berger PA [address] [place], [place] [phone] PCP - General PHYSICIAN FLATWORK WASHER 06/09/21
--- OUTSIDE RECORDS SUMMARY | 2025-02-03 03:23 | XMS_ITS | Encounter Summary ---
Author Organization [facility] Healthcare Address [address] [place] [address] Care Team Providers Care Terrazzo Finisher Name Role Phone Nuris Berger Primary Care Provider [phone] Jonatan Stokes MD Unavailable [phone] Irma Bajwa MD Unavailable [phone] Reason for Visit * Reason Onset Date Comments Test Results 01/31/2025 Encounter Details Date Type Department Care Team (Late st Contact Info) Description 01/31/2025 Results Follow-Up [facility] Family Medicine [address] [place] [address] Nuirs Berger PA [address] [place] [address] Social History Tobacco Use Types Packs/Day Years Used Date Smoking Tobacco: Former Cigarettes 0.8 40 0 09/1981 - 09/2021 Smokeless Tobacco: Never Alcohol Use Standard Drinks/Week Comments Yes 0 (1 standard drink = 0.6 oz pur e alcohol) social C Utilities Answer Date Recorded In the past 12 months has [employer], gas, oil, or water company threatened to [...] often do you attend chur ch or yazidism services? 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
--- OUTSIDE RECORDS SUMMARY | 2025-02-03 03:23 | XMS_ITS | Encounter Summary ---
Author Organization [facility] Address [address] [place] [address] Care Team Providers Care Bartender Helper Name Role Phone Nuris Berger Primary Care Provider [phone] Jonatan Stokes MD Unavailable [phone] Irma Bajwa MD Unavailable [phone] Encounter Details Date Type Department Care Team (Late st Contact Info) Description 12/21/2024 Orders Only [facility] [place] Health Information Management [address] [place] [address] Scanning, Provider Social History Tobacco Use Types Packs/Day Years Used Date Smoking Tobacco: Former Cigarettes 0.8 40 0 09/1981 - 09/2021 Smokeless Tobacco: Never Alcohol Use Standard Drinks/Week Comments Yes 0 (1 standard drink = 0.6 oz pur e alcohol) social [facility] Utilities Answer Date Recorded In the past 12 months has [employer], gas, oil, or water [employer] threatened to shut off services in your [...] 12/03/2023 How often do you attend [facility] or anabaptist services? 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
--- OUTSIDE RECORDS SUMMARY | 2025-02-03 03:23 | XMS_ITS | Clinical Summary ---
Author Organization [facility] [address] [facility] Address [address] [place] [address] Care Team Providers Care Car Racer Name Role Phone Nuris Berger Primary Care Provider [phone] Jonatan Stokes MD Unavailable Irma Bajwa MD Unavailable [phone] Allergies Active Allergy Reactions Criticality Noted Date [...] pulmonary disease, unspecified COPD type ([facility]) INHALE 2 PUFFS BY MOUTH TWICE [...] 11/19/2024 Assessment & Plan (11/19/2024 11:45 PM SUPERVISOR WORD PROCESSING): Encouraged healthy lifestyle, good nutrition and exercise. Encouraged Calcium and Vitamin D and weight bearing exercise for bone health. Reviewed immunizations Reviewed age appropirate screenings. BMI 23.0-23.9, adult 06/20/2024 Assessment & Plan (10/30/2024 8:57 AM SUPERVISOR WORD PROCESSING): Weight/BMI is in healthy range. Continue healthy lifestyle to maintain. Assessment & Plan (06/20/2024 7:44 AM CDT): Weight/BMI is in healthy range. Continue healthy lifestyle to maintain. Vitamin D deficiency 11/24/2023 Assessment & Plan (11/19/2024 11:45 PM SUPERVISOR WORD PROCESSING): Supplement Assessment & Plan (05/20/2024 7:36 PM CDT): Supplement Fatigue 12/12/2022 Assessment & Plan (05/20/2024 7:37 PM CDT): Probably multifactorial. Check labs and followup to re-evaluate Assessment & Plan (11/24/2023 10:35 AM SUPERVISOR WORD PROCESSING): Probably multifactorial. Check labs and followup to [...] 01/16/2022 Assessment & Plan (11/19/2024 11:44 PM SUPERVISOR WORD PROCESSING): Chronic hiccups for 5+ years Has been [...] to the ER. ER recommended referral to [facility] but patient states he can't go to [...] weeks Assessment & Plan (11/24/2023 10:34 AM SUPERVISOR WORD PROCESSING): Patient has persistent chronic hiccups that come [...] monitor Assessment & Plan (08/15/2023 5:01 PM SUPERVISOR WORD PROCESSING): Chronic hiccups for years. Has tried multiple interventions along with multiple workups from specialists including Neurology pulmonology and GI. Continue current regimen. Stressed importance of limiting water intake when he has the hiccups spells as this has been leading to hyponatremia requiring hospitalization. Assessment & Plan (08/11/2023 8:45 AM SUPERVISOR WORD PROCESSING): Patient with chronic hiccups. Have had difficulty [...] levels. Assessment & Plan (08/15/2022 6:45 PM SUPERVISOR WORD PROCESSING): Patient has consulted with most multiple specialists [...] hiccups. Assessment & Plan (08/15/2023 5:02 PM SUPERVISOR WORD PROCESSING): Chronic hiccups for years. Has tried multiple interventions along with multiple workups from specialists including Neurology pulmonology and GI. Continue current regimen. Stressed importance of limiting water intake when he has the hiccups spells as this has been leading to hyponatremia requiring hospitalization. Assessment & Plan (08/11/2023 8:46 AM SUPERVISOR WORD PROCESSING): Hyponatremia secondary to water intake with chronic [...] 07/14/2019 Assessment & Plan (11/19/2024 11:44 PM SUPERVISOR WORD PROCESSING): Continue PPI p.r.n. Assessment & Plan (05/20/2024 7:35 PM CDT): Continue pantoprazole p.r.n. Assessment & Plan (11/24/2023 10:33 AM SUPERVISOR WORD PROCESSING): Continue pantoprazole p.r.n. Assessment & Plan (04/08/2023 8:48 PM CDT): Continue PPI p.r.n. Assessment & Plan (12/12/2022 9:43 PM CDT): Insert PPI Assessment & Plan (08/15/2022 6:45 PM SUPERVISOR WORD PROCESSING): Continue PPI prn Assessment & Plan (02/09/2021 8:17 PM CDT): Continue PPI Assessment & Plan (07/29/2020 7:33 AM SUPERVISOR WORD PROCESSING): Continue PPI Assessment & Plan (03/27/2020 8:01 AM CDT): Dr. Stokes changed him from omeprazole to Pantoprazole for the hiccups. Pt hasn't noted any difference in GERD sxs (still well controlled) or hiccups. Assessment & Plan (09/26/2019 7:38 AM SUPERVISOR WORD PROCESSING): Continue PPI Assessment & Plan (07/14/2019 8:46 AM CDT): Discussed GERD at length including anatomy, behavioral changes (raise HOB, meal timings), dietary changes and medication options. Reviewed risks, benefits alternatives, side effects and proper use. Followup if sxs worsen or has hematochezia or hematemeis. Start PPI Chronic obstructive pulmonary disease 06/26/2019 Overview (06/26/2019): Noted on 06/2019 LDCT Assessment & Plan (11/19/2024 11:44 PM SUPERVISOR WORD PROCESSING): Patient with allergies and COPD. Continue Singulair albuterol and Symbicort. Follows with Dr. Valdes. Assessment & Plan (05/20/2024 7:35 PM CDT): Continue per Dr. Valdes. Continue with his Symbicort and albuterol inhalers. Low-dose CT will be scheduled for June 16, 2024. Assessment & Plan (11/24/2023 10:33 AM SUPERVISOR WORD PROCESSING): COPD. Continue per Dr. Hammond his software test technician Continue Symbicort Singulair and albuterol p.r.n. Assessment & Plan (04/08/2023 8:48 PM CDT): Encouraged smoking cessation. Continue per Dr. Hammond pulmonology. He is on albuterol Symbicort and Singulair Assessment & Plan (12/12/2022 9:43 PM CDT): Stop smoking. Continue per Pulmonary. Continue Symbicort Singulair and albuterol. Continue monitoring low-dose CTs as instructed Assessment & Plan (08/15/2022 6:44 PM SUPERVISOR WORD PROCESSING): Stop smoking. Continue current plan per Pulmonary Assessment & Plan (08/01/2021 9:34 PM SUPERVISOR WORD PROCESSING): Continue per Pulmonary Dr. Valdes Assessment & Plan (02/09/2021 8:15 PM CDT): Stop smoking. Continue per Dr. Valdes Assessment & Plan (07/29/2020 7:32 AM SUPERVISOR WORD PROCESSING): Continue per Pulm Assessment & Plan (03/27/2020 8:00 AM CDT): Stop smoking. He declines starting inhalers or referral to Pulmonary Assessment & Plan (09/26/2019 10:27 PM SUPERVISOR WORD PROCESSING): This is a significant, separately identifiable problem [...] order Assessment & Plan (07/29/2020 7:33 AM SUPERVISOR WORD PROCESSING): Needs to repeat ---Dr. Valdes has already ordered Assessment & Plan (03/27/2020 8:00 AM CDT): 06/2019 LDCT Several 2-3mm nodules, probable benign LungRADs 2 --- repeat 06/2020 Assessment & Plan (09/26/2019 10:26 PM SUPERVISOR WORD PROCESSING): 06/2019 LDCT Several 2-3mm nodules, probable benign LungRADs 2 --- repeat 06/2020 Hyperplastic rectal polyp 05/20/2019 Overview (05/20/2019): Colonoscopy 01/29/2012 at [facility]--->2021 Assessment & Plan (05/28/2019 7:33 PM CDT): Recvd colonoscopy and due to repeat in 2021 Hiatal hernia 05/20/2019 Mixed hyperlipidemia 05/20/2019 Assessment & Plan (11/19/2024 11:45 PM SUPERVISOR WORD PROCESSING): Encouraged patient to follow low fat/low chol [...] 80 Assessment & Plan (11/24/2023 10:34 AM SUPERVISOR WORD PROCESSING): Encouraged patient to follow low fat/low chol diet like the Mediterranean diet. Increase good fats in the diet. Increase exercise. Monitor labs as needed. Continue pravastatin 80 Assessment & Plan (08/15/2023 5:03 PM SUPERVISOR WORD PROCESSING): Encouraged patient to follow low fat/low chol [...] Zetia Assessment & Plan (08/01/2021 9:33 PM SUPERVISOR WORD PROCESSING): Encouraged patient to follow fat/low chol diet [...] statin Assessment & Plan (07/29/2020 7:34 AM SUPERVISOR WORD PROCESSING): Encouraged patient to follow fat/low chol diet like the Mediterranean diet. Increase good fats in the diet. Increase exercise. Monitor labs as needed. Assessment & Plan (03/27/2020 8:02 AM CDT): Encouraged patient to continue low fat/low chol diet. Continue exercise. Increase good fats in the diet. Monitor labs as needed. Stable with zetia and pravastatin Assessment & Plan (09/26/2019 7:39 AM SUPERVISOR WORD PROCESSING): Encouraged patient to continue low fat/low chol [...] change Assessment & Plan (08/15/2023 5:03 PM SUPERVISOR WORD PROCESSING): Patient is legally blind. Continue with Ophthalmology Assessment & Plan (04/08/2023 8:47 PM CDT): No change Assessment & Plan (03/27/2020 8:02 AM CDT): No change Assessment & Plan (09/26/2019 7:39 AM SUPERVISOR WORD PROCESSING): No change Assessment & Plan (05/28/2019 7:35 PM CDT): No change Cigarette smoker 05/20/2019 Assessment & Plan (08/11/2023 8:45 AM SUPERVISOR WORD PROCESSING): Encouraged smoking cessation. Discussed 3 minutes. Reviewed [...] Reviewed options for assistance with cessation. Reviewed professional shopper sequela associated with smoking. Pt declines assistance at this time but may contact the office at anytime for further help as they desire. Assessment & Plan (08/15/2022 6:44 PM SUPERVISOR WORD PROCESSING): Encouraged smoking cessation. Discussed 3 minutes. Reviewed options for assistance with cessation. Reviewed detention sequela associated with smoking. Pt declines assistance at this time but may contact the office at anytime for further help as they desire. Assessment & Plan (05/09/2022 8:19 PM CDT): Encouraged smoking cessation. Discussed 3 minutes. Reviewed options for assistance with cessation. Reviewed professional shopper sequela associated with smoking. Pt declines assistance at this time but may contact the office at anytime for further help as they desire. Assessment & Plan (08/01/2021 9:33 PM SUPERVISOR WORD PROCESSING): Encouraged smoking cessation. Discussed 3 minutes. Reviewed options for assistance with cessation. Reviewed detention sequela associated with smoking. Pt declines assistance at this time but may contact the office at anytime for further help as they desire. Assessment & Plan (05/17/2021 11:41 PM CDT): Encouraged smoking cessation. Discussed 3 minutes. Reviewed options for assistance with cessation. Reviewed professional shopper sequela associated with smoking. Pt declines assistance at this time but may contact the office at anytime for further help as they desire. Assessment & Plan (03/12/2021 12:31 PM CDT): Encouraged smoking cessation. Discussed 3 minutes. Reviewed options for assistance with cessation. Reviewed detention sequela associated with smoking. He is slowing down. Offered assistance. May call if decides he wants help Assessment & Plan (07/29/2020 7:34 AM SUPERVISOR WORD PROCESSING): Encouraged smoking cessation. Discussed 3 minutes. Reviewed options for assistance with cessation. Reviewed professional shopper sequela associated with smoking. Pt declines assistance at this time but may contact the office at anytime for further help as they desire. Assessment & Plan (03/27/2020 8:02 AM CDT): Encouraged smoking cessation. Discussed 3 minutes. Reviewed options for assistance with cessation. Reviewed professional shopper sequela associated with smoking. Pt declines assistance at this time but may contact the office at anytime for further help as they desire. Assessment & Plan (09/26/2019 7:39 AM SUPERVISOR WORD PROCESSING): Encouraged smoking cessation. Discussed 3 minutes. Reviewed [...] 05/20/2019 Assessment & Plan (11/19/2024 11:45 PM SUPERVISOR WORD PROCESSING): Pre-diabetes/hyperglycemia is a precursor to Dm. Stressed [...] diabetes. Assessment & Plan (11/24/2023 10:34 AM SUPERVISOR WORD PROCESSING): Pre-diabetes/hyperglycemia is a precursor to Dm. Stressed importance of working on diet (decrease your simple sugars and one carbohydrate with each meal) and increase you exercise to achieve weight loss and this will help prevent you from progressing to diabetes. Assessment & Plan (08/15/2023 5:03 PM SUPERVISOR WORD PROCESSING): Pre-diabetes/hyperglycemia is a precursor to Dm. Stressed [...] diabetes. Assessment & Plan (08/01/2021 9:33 PM SUPERVISOR WORD PROCESSING): Pre-diabetes/hyperglycemia is a precursor to Dm. Stressed [...] diabetes. Assessment & Plan (07/29/2020 7:34 AM SUPERVISOR WORD PROCESSING): Pre-diabetes is a precursor to Dm. Stressed [...] labs Assessment & Plan (09/26/2019 10:27 PM SUPERVISOR WORD PROCESSING): This is a significant, separately identifiable problem [...] 11/24/2023 Assessment & Plan (11/24/2023 10:35 AM SUPERVISOR WORD PROCESSING): Encouraged healthy lifestyle, good nutrition and exercise. Encouraged Calcium and Vitamin D and weight bearing exercise for bone health. Reviewed immunizations Reviewed age appropirate screenings. Need for influenza vaccination 08/15/2023 11/24/2023 Assessment & Plan (08/15/2023 5:04 PM SUPERVISOR WORD PROCESSING): Flu vaccine updated in the office today BMI 22.0-22.9, adult 07/22/2023 024 Assessment & Plan (08/11/2023 8:12 AM SUPERVISOR WORD PROCESSING): Weight/BMI is in healthy range. Continue healthy [...] 04/03/2023 Assessment & Plan (08/15/2022 6:45 PM SUPERVISOR WORD PROCESSING): Flu updated in the office today BMI [...] test outpatient. Was referred to an outside under ground miner. Encouraged to consider seeing a [facility] Medical group of cardiologists so all of his providers are in the same system. He is in agreement. Referral made to Dr. Eduardo as he has multiple risk factors. BMI 23.0-23.9, adult 01/21/2022 Assessment & Plan (01/21/2022 11:10 AM CDT): Weight/BMI is in healthy range. Continue healthy lifestyle to maintain. BMI 21.0-21.9, adult 08/01/2021 022 Assessment & Plan (08/01/2021 7:28 AM SUPERVISOR WORD PROCESSING): Weight/BMI is in healthy range. Continue healthy lifestyle to maintain. Medicare annual wellness visit, subsequent 08/01/2021 08/15/2022 Assessment & Plan (08/01/2021 9:34 PM SUPERVISOR WORD PROCESSING): Encouraged healthy lifestyle, good nutrition and exercise. Encouraged Calcium and Vitamin D and weight bearing exercise for bone health. Reviewed immunizations. Reviewed age appropirate screenings. Medicare Wellness Documentation is completed within the chart Fatigue 05/17/2021 05/02/2022 Assessment & Plan (08/01/2021 9:34 PM SUPERVISOR WORD PROCESSING): Probably multifactorial. Check labs and followup to re-evaluate BMI 21.0-21.9, adult 05/08/2021 021 Assessment & Plan (05/08/2021 7:58 AM CDT): Weight/BMI is in healthy range. Continue healthy lifestyle to maintain. Pneumonia due to infectious orga [id number]|2025-02-03 03:23:00|2025-02-03 03:22:00|XMS_ITS|SOURAV ONEAL|External Medical Summaries|[id number]|" Referral Summary Created on: February 03, 2025 Mark Hines Justo : 1960 Sex: Male Author Organization [facility] [address] [facility] Address [address] [place] [id number] Care Team Providers Care Car Racer Name Role Phone Nuris Berger Primary Care Provider [phone] Jonatan Stokes MD Unavailable Irma Bajwa MD Unavailable [phone] Encounters Date Type Department Care Team Description 01/31/2025 Results Follow-Up [facility] Family Medicine [address] [place] [address] [address] [place] [address] Nuris Berger PA 01/31/[address] [place] [address] Nuris Berger PA Medical Question/Miscellane ous 01/31/2025 8:30 AM CDT Office Visit [address] [place] [address] Nuris Berger PA BMI 25.0-25.9,adult (Primary Dx); Hyponatremia 12/29/2024 DEBBIE IP Outreach [facility] Accountable Care Organization [address] [place] [address] Anahi Phipps MA 12/27/[address] [place] [phone] Nuris Berger PA 12/26/2024 Orders Only [facility] Health Information Management [address] [place] [address] Scanning, Provider 12/26/[address] [place] [phone] Nuris Berger PA 12/21/2024 Orders Only [facility] Information Management [address] [place] [address] Scanning, Provider 12/06/2024 9:30 AM CDT Office Visit [facility] Pulmonology [address] [facility] [address] [place] [phone] Tasia Hoffman MD Chronic obstructive pulmonary disease, [...] 11/19/2024 Assessment & Plan (11/19/2024 11:45 PM SUPERVISOR WORD PROCESSING): Encouraged healthy lifestyle, good nutrition and exercise. Encouraged Calcium and Vitamin D and weight bearing exercise for bone health. Reviewed immunizations Reviewed age appropirate screenings. BMI 23.0-23.9, adult 06/20/2024 Assessment & Plan (10/30/2024 8:57 AM SUPERVISOR WORD PROCESSING): Weight/BMI is in healthy range. Continue healthy lifestyle to maintain. Assessment & Plan (06/20/2024 7:44 AM CDT): Weight/BMI is in healthy range. Continue healthy lifestyle to maintain. Vitamin D deficiency 11/24/2023 Assessment & Plan (11/19/2024 11:45 PM SUPERVISOR WORD PROCESSING): Supplement Assessment & Plan (05/20/2024 7:36 PM CDT): Supplement Fatigue 12/12/2022 Assessment & Plan (05/20/2024 7:37 PM CDT): Probably multifactorial. Check labs and followup to re-evaluate Assessment & Plan (11/24/2023 10:35 AM SUPERVISOR WORD PROCESSING): Probably multifactorial. Check labs and followup to [...] 01/16/2022 Assessment & Plan (11/19/2024 11:44 PM SUPERVISOR WORD PROCESSING): Chronic hiccups for 5+ years Has been [...] to the ER. ER recommended referral to [facility] but patient states he can't go to [...] weeks Assessment & Plan (11/24/2023 10:34 AM SUPERVISOR WORD PROCESSING): Patient has persistent chronic hiccups that come [...] monitor Assessment & Plan (08/15/2023 5:01 PM SUPERVISOR WORD PROCESSING): Chronic hiccups for years. Has tried multiple interventions along with multiple workups from specialists including Neurology pulmonology and GI. Continue current regimen. Stressed importance of limiting water intake when he has the hiccups spells as this has been leading to hyponatremia requiring hospitalization. Assessment & Plan (08/11/2023 8:45 AM SUPERVISOR WORD PROCESSING): Patient with chronic hiccups. Have had difficulty [...] levels. Assessment & Plan (08/15/2022 6:45 PM SUPERVISOR WORD PROCESSING): Patient has consulted with most multiple specialists [...] hiccups. Assessment & Plan (08/15/2023 5:02 PM SUPERVISOR WORD PROCESSING): Chronic hiccups for years. Has tried multiple interventions along with multiple workups from specialists including Neurology pulmonology and GI. Continue current regimen. Stressed importance of limiting water intake when he has the hiccups spells as this has been leading to hyponatremia requiring hospitalization. Assessment & Plan (08/11/2023 8:46 AM SUPERVISOR WORD PROCESSING): Hyponatremia secondary to water intake with chronic [...] 07/14/2019 Assessment & Plan (11/19/2024 11:44 PM SUPERVISOR WORD PROCESSING): Continue PPI p.r.n. Assessment & Plan (05/20/2024 7:35 PM CDT): Continue pantoprazole p.r.n. Assessment & Plan (11/24/2023 10:33 AM SUPERVISOR WORD PROCESSING): Continue pantoprazole p.r.n. Assessment & Plan (04/08/2023 8:48 PM CDT): Continue PPI p.r.n. Assessment & Plan (12/12/2022 9:43 PM CDT): Insert PPI Assessment & Plan (08/15/2022 6:45 PM SUPERVISOR WORD PROCESSING): Continue PPI prn Assessment & Plan (02/09/2021 8:17 PM CDT): Continue PPI Assessment & Plan (07/29/2020 7:33 AM SUPERVISOR WORD PROCESSING): Continue PPI Assessment & Plan (03/27/2020 8:01 AM CDT): Dr. Stokes changed him from omeprazole to Pantoprazole for the hiccups. Pt hasn't noted any difference in GERD sxs (still well controlled) or hiccups. Assessment & Plan (09/26/2019 7:38 AM SUPERVISOR WORD PROCESSING): Continue PPI Assessment & Plan (07/14/2019 8:46 AM CDT): Discussed GERD at length including anatomy, behavioral changes (raise HOB, meal timings), dietary changes and medication options. Reviewed risks, benefits alternatives, side effects and proper use. Followup if sxs worsen or has hematochezia or hematemeis. Start PPI Chronic obstructive pulmonary disease 06/26/2019 Overview (06/26/2019): Noted on 06/2019 LDCT Assessment & Plan (11/19/2024 11:44 PM SUPERVISOR WORD PROCESSING): Patient with allergies and COPD. Continue Singulair albuterol and Symbicort. Follows with Dr. Valdes. Assessment & Plan (05/20/2024 7:35 PM CDT): Continue per Dr. Valdes. Continue with his Symbicort and albuterol inhalers. Low-dose CT will be scheduled for June 16, 2024. Assessment & Plan (11/24/2023 10:33 AM SUPERVISOR WORD PROCESSING): COPD. Continue per Dr. Hammond his software test technician Continue Symbicort Singulair and albuterol p.r.n. Assessment & Plan (04/08/2023 8:48 PM CDT): Encouraged smoking cessation. Continue per Dr. Hammond pulmonology. He is on albuterol Symbicort and Singulair Assessment & Plan (12/12/2022 9:43 PM CDT): Stop smoking. Continue per Pulmonary. Continue Symbicort Singulair and albuterol. Continue monitoring low-dose CTs as instructed Assessment & Plan (08/15/2022 6:44 PM SUPERVISOR WORD PROCESSING): Stop smoking. Continue current plan per Pulmonary Assessment & Plan (08/01/2021 9:34 PM SUPERVISOR WORD PROCESSING): Continue per Pulmonary Dr. Valdes Assessment & Plan (02/09/2021 8:15 PM CDT): Stop smoking. Continue per Dr. Valdes Assessment & Plan (07/29/2020 7:32 AM SUPERVISOR WORD PROCESSING): Continue per Pulm Assessment & Plan (03/27/2020 8:00 AM CDT): Stop smoking. He declines starting inhalers or referral to Pulmonary Assessment & Plan (09/26/2019 10:27 PM SUPERVISOR WORD PROCESSING): This is a significant, separately identifiable problem [...] order Assessment & Plan (07/29/2020 7:33 AM SUPERVISOR WORD PROCESSING): Needs to repeat ---Dr. Valdes has already ordered Assessment & Plan (03/27/2020 8:00 AM CDT): 06/2019 LDCT Several 2-3mm nodules, probable benign LungRADs 2 --- repeat 06/2020 Assessment & Plan (09/26/2019 10:26 PM SUPERVISOR WORD PROCESSING): 06/2019 LDCT Several 2-3mm nodules, probable benign LungRADs 2 --- repeat 06/2020 Hyperplastic rectal polyp 05/20/2019 Overview (05/20/2019): Colonoscopy 01/29/2012 at [facility]--->2021 Assessment & Plan (05/28/2019 7:33 PM CDT): Recvd colonoscopy and due to repeat in 2021 Hiatal hernia 05/20/2019 Mixed hyperlipidemia 05/20/2019 Assessment & Plan (11/19/2024 11:45 PM SUPERVISOR WORD PROCESSING): Encouraged patient to follow low fat/low chol [...] 80 Assessment & Plan (11/24/2023 10:34 AM SUPERVISOR WORD PROCESSING): Encouraged patient to follow low fat/low chol diet like the Mediterranean diet. Increase good fats in the diet. Increase exercise. Monitor labs as needed. Continue pravastatin 80 Assessment & Plan (08/15/2023 5:03 PM SUPERVISOR WORD PROCESSING): Encouraged patient to follow low fat/low chol [...] Zetia Assessment & Plan (08/01/2021 9:33 PM SUPERVISOR WORD PROCESSING): Encouraged patient to follow fat/low chol diet [...] statin Assessment & Plan (07/29/2020 7:34 AM SUPERVISOR WORD PROCESSING): Encouraged patient to follow fat/low chol diet like the Mediterranean diet. Increase good fats in the diet. Increase exercise. Monitor labs as needed. Assessment & Plan (03/27/2020 8:02 AM CDT): Encouraged patient to continue low fat/low chol diet. Continue exercise. Increase good fats in the diet. Monitor labs as needed. Stable with zetia and pravastatin Assessment & Plan (09/26/2019 7:39 AM SUPERVISOR WORD PROCESSING): Encouraged patient to continue low fat/low chol [...] change Assessment & Plan (08/15/2023 5:03 PM SUPERVISOR WORD PROCESSING): Patient is legally blind. Continue with Ophthalmology Assessment & Plan (04/08/2023 8:47 PM CDT): No change Assessment & Plan (03/27/2020 8:02 AM CDT): No change Assessment & Plan (09/26/2019 7:39 AM SUPERVISOR WORD PROCESSING): No change Assessment & Plan (05/28/2019 7:35 PM CDT): No change Cigarette smoker 05/20/2019 Assessment & Plan (08/11/2023 8:45 AM SUPERVISOR WORD PROCESSING): Encouraged smoking cessation. Discussed 3 minutes. Reviewed options for assistance with cessation. Reviewed detention sequela associated with smoking. Pt declines assistance at this time but may contact the office at anytime for further help as they desire. Assessment & Plan (04/08/2023 8:47 PM CDT): Encouraged smoking cessation. Discussed 3 minutes. Reviewed options for assistance with cessation. Reviewed professional shopper sequela associated with smoking. Pt declines assistance at this time but may contact the office at anytime for further help as they desire. Low-dose CT will be due in May. It is already scheduled Assessment & Plan (12/12/2022 9:42 PM CDT): Encouraged smoking cessation. Discussed 3 minutes. Reviewed options for assistance with cessation. Reviewed professional shopper sequela associated with smoking. Pt declines assistance at this time but may contact the office at anytime for further help as they desire. Assessment & Plan (08/15/2022 6:44 PM SUPERVISOR WORD PROCESSING): Encouraged smoking cessation. Discussed 3 minutes. Reviewed options for assistance with cessation. Reviewed detention sequela associated with smoking. Pt declines assistance at this time but may contact the office at anytime for further help as they desire. Assessment & Plan (05/09/2022 8:19 PM CDT): Encouraged smoking cessation. Discussed 3 minutes. Reviewed options for assistance with cessation. Reviewed professional shopper sequela associated with smoking. Pt declines assistance at this time but may contact the office at anytime for further help as they desire. Assessment & Plan (08/01/2021 9:33 PM SUPERVISOR WORD PROCESSING): Encouraged smoking cessation. Discussed 3 minutes. Reviewed options for assistance with cessation. Reviewed professional shopper sequela associated with smoking. Pt declines assistance at this time but may contact the office at anytime for further help as they desire. Assessment & Plan (05/17/2021 11:41 PM CDT): Encouraged smoking cessation. Discussed 3 minutes. Reviewed options for assistance with cessation. Reviewed professional shopper sequela associated with smoking. Pt declines assistance at this time but may contact the office at anytime for further help as they desire. Assessment & Plan (03/12/2021 12:31 PM CDT): Encouraged smoking cessation. Discussed 3 minutes. Reviewed options for assistance with cessation. Reviewed detention sequela associated with smoking. He is slowing down. Offered assistance. May call if decides he wants help Assessment & Plan (07/29/2020 7:34 AM SUPERVISOR WORD PROCESSING): Encouraged smoking cessation. Discussed 3 minutes. Reviewed options for assistance with cessation. Reviewed detention sequela associated with smoking. Pt declines assistance at this time but may contact the office at anytime for further help as they desire. Assessment & Plan (03/27/2020 8:02 AM CDT): Encouraged smoking cessation. Discussed 3 minutes. Reviewed options for assistance with cessation. Reviewed professional shopper sequela associated with smoking. Pt declines assistance at this time but may contact the office at anytime for further help as they desire. Assessment & Plan (09/26/2019 7:39 AM SUPERVISOR WORD PROCESSING): Encouraged smoking cessation. Discussed 3 minutes. Reviewed options for assistance with cessation. Reviewed professional shopper sequela associated with smoking. Pt declines assistance [...] 05/20/2019 Assessment & Plan (11/19/2024 11:45 PM SUPERVISOR WORD PROCESSING): Pre-diabetes/hyperglycemia is a precursor to Dm. Stressed [...] diabetes. Assessment & Plan (11/24/2023 10:34 AM SUPERVISOR WORD PROCESSING): Pre-diabetes/hyperglycemia is a precursor to Dm. Stressed importance of working on diet (decrease your simple sugars and one carbohydrate with each meal) and increase you exercise to achieve weight loss and this will help prevent you from progressing to diabetes. Assessment & Plan (08/15/2023 5:03 PM SUPERVISOR WORD PROCESSING): Pre-diabetes/hyperglycemia is a precursor to Dm. Stressed [...] diabetes. Assessment & Plan (08/01/2021 9:33 PM SUPERVISOR WORD PROCESSING): Pre-diabetes/hyperglycemia is a precursor to Dm. Stressed [...] diabetes. Assessment & Plan (07/29/2020 7:34 AM SUPERVISOR WORD PROCESSING): Pre-diabetes is a precursor to Dm. Stressed [...] labs Assessment & Plan (09/26/2019 10:27 PM SUPERVISOR WORD PROCESSING): This is a significant, separately identifiable problem [...] 024 Assessment & Plan (11/24/2023 10:35 AM SUPERVISOR WORD PROCESSING): Encouraged healthy lifestyle, good nutrition and exercise. Encouraged Calcium and Vitamin D and weight bearing exercise for bone health. Reviewed immunizations Reviewed age appropirate screenings. Need for influenza vaccination 08/15/2023 11/24/2023 Assessment & Plan (08/15/2023 5:04 PM SUPERVISOR WORD PROCESSING): Flu vaccine updated in the office today BMI 22.0-22.9, adult 07/22/2023 024 Assessment & Plan (08/11/2023 8:12 AM SUPERVISOR WORD PROCESSING): Weight/BMI is in healthy range. Continue healthy [...] 04/03/2023 Assessment & Plan (08/15/2022 6:45 PM SUPERVISOR WORD PROCESSING): Flu updated in the office today BMI 24.0-24.9, adult 07/23/2022 023 Assessment & Plan (0
--- OUTSIDE RECORDS SUMMARY | 2025-02-03 03:23 | XMS_ITS | Encounter Summary ---
Author Organization [facility] Healthcare Address [address] [place] [address] Care Team Providers Care Printer Helper Name Role Phone Nuris Berger Primary Care Provider [phone] Jonatan Stokes MD Unavailable [phone] Irma Bajwa MD Unavailable [phone] Reason for Visit * Reason Onset Date Comments Medical Question/Miscellaneous 01/31/2025 Encounter Details Date Type Department Care Team (Late st Contact Info) Description 01/31/2025 Telephone [facility] Family Medicine [address] [place] [address] Nuris Berger PA [address] [place] [address] Medical Question/Miscellaneous Social History Tobacco [...] often do you attend chur ch or religion services? Patient declined 12/03/2023 Do you belong to any clubs o r organizations such as sikh groups, unions, fraternal or athletic groups, or [...] place to sleep or slept in a half-way (including now)? No 12/03/2023 Personal Safety Answer Date Recorded Have you ever been in or are you currently in a harmful physical or emotional relationship or is someone making you feel afraid or unsafe? 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
--- OUTSIDE RECORDS SUMMARY | 2025-02-03 03:23 | XMS_ITS | Clinical Summary ---
Author Organization [facility] Address [address] [place] [address] Care Team Providers Care Electrical Control Assembler Name Role Phone Nuris Berger PA-C Primary Care Provider [phone] Source Comments [facility],non-owned Affiliates and Associated Physician Practices is amultiple site organization consisting of ambulatory clinics and hospital sitesin [place], [place], [place] and [place]. This disclosure is being madepursuant to the Care Everywhere program and may not contain all information available regarding this patient. Last updated 18.[facility] Allergies Active Allergy Reactions Criticality Noted Date [...] tablet 06/17/2023 Active ergocalciferol (Drisdol) 1.25 MG (78937 UT) capsule Take 1 (one) capsule by [...] 11 07/21/2024 Active trimethoprim-po lymyxin B (Polytrim) 44936-4.1 UNIT/ML-% ophthalmic solution Instill 1 (one) drop [...] Reviewed options for assistance with cessation. Reviewed custodial sequela associated with smoking. Pt declines assistance [...] polyp 05/20/2019 Overview (12/24/2020): Colonoscopy 01/29/2012 at [facility]--->2021 Last Assessment & Plan: Recvd [...] Description 12/13/2024 9:15 AM CDT Office Visit [facility] - Ophthalmology [address] [place] [phone] Louis Hansen MD H/O cornea transplant (Primary Dx); Pseudophakia 12/13/2024 Travel 12/01/2024 8:30 AM CDT Clinical Support [facility] - Ophthalmology [address] [place] [phone] Tyrel Velez MD 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 (Primary Dx) 12/01/2024 8:25 AM CDT Clinical Support [facility] - Ophthalmology [address] [place] [phone] Tyrel Velez MD 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 (Primary Dx) 12/01/2024 8:20 AM CDT Office Visit [facility] - Ophthalmology [address] [place] [phone] Tyrel Velez MD 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 (Primary Dx); H/O cornea transplant; Central corneal opacity, left 12/01/2024 8:15 AM CDT Clinical Support [facility] - Ophthalmology [address] [place] [phone] Tyrel Velez MD 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 (Primary Dx) 12/01/2024 Travel from Last 3 Months Immunizations Immunization Administration Dates Next Due [employer] primary monoval ent 12+ yr 0.3mL Purple [...] Comments Blood Pressure 128/70 08/26/2023 12:43 PM BODY PRESS OPERATOR Pulse 65 08/26/2023 12:43 PM BODY PRESS OPERATOR Temperature 35.9 C (96.7 F) 08/26/2023 12:34 PM BODY PRESS OPERATOR Respiratory Rate 14 08/26/2023 12:43 PM BODY PRESS OPERATOR Oxygen Saturation 98% 08/26/2023 12:34 PM BODY PRESS OPERATOR Inhaled Oxygen Concentration - - Weight 64.9 kg (143 lb) 08/26/2023 9:01 AM BODY PRESS OPERATOR Height 172.7 cm (5' 8 ) 08/26/2023 9:01 AM BODY PRESS OPERATOR Body Mass Index 21.74 08/26/2023 9:01 AM BODY PRESS OPERATOR Plan of Treatment Upcoming Encounters Date Type Department Care Team (Late st Contact Info) Description 04/18/2025 9:15 AM CDT Office Visit [facility] - Ophthalmology [address] [place] [phone] Louis Hansen MD [address] [place] [address] [place] [phone] 08/07/2025 8:40 AM BODY PRESS OPERATOR Office Visit [facility] - Ophthalmology [address] [place] [phone] Tyrel Velez MD [address] [place] [phone] Health Maintenance Due Date Last Done Comments [...] this topic Medical Devices Implanted Type Area Road Engineer Freight Device Identifier Shelf Expiration Date Model / Serial / Lot Drain Glcm Thk.9mm Blnt Tpr [facility] Flxb - [id number] Implanted:Qty: 1 on 05/04/2018 by Tyrel Velez MD at [facility] Left: Eye [facility] 03/15/2020 7 / [id number] / [id number] Graft Tissue Ttplst Sclr .8x.5cm Lopro - [id number] Implanted:Qty: 1 on 05/04/2018 by Tyrel Velez MD at [facility] Left: Eye [employer] 01/17/2023 [id number] / [id number] / [id number] Impl Opth 250sq Mm Brvldt Magaly 1 Qdrnt - [id number] Implanted:Qty: 1 on 06/16/2023 by Tyrel Velez MD at [facility] Left: Eye [employer] 01/09/2024 [id number] / [id number] / Graft Tissue Ttpl Ioptch Sclr .8x.5cm - [id number] Implanted:Qty: 1 on 06/16/2023 by Tyrel Velez MD at [facility] Left: Eye [employer] 09/19/2027 [id number] / [id number] / Graft Tissue Ttpl Ioptch Sclr .8x.5cm - [id number] Implanted:Qty: 1 on 06/16/2023 by Tyrel Velez MD at [facility] Left: Eye [employer] 09/19/2027 [id number] / [id number] / J Luis Cornea - [id number] Implanted:Qty: 1 on 08/26/2023 by Louis Hansen MD at [facility] Left: Eye [facility] 09/05/2023 [id number] / [id number] / [id number] Description:Product Numb:[id number] EXP:09-05-2023 DIN:[id number] Insurance AETNA MEDICARE ADV AETNA Advance Directives * Full Code (Latest Code Status on File) Date Activated Date Inactivated Comments 05/04/2018 11:35 AM 05/04/2018 1:21 PM * Full Code Date Activated Date Inactivated Comments 05/04/2018 7:43 AM 05/04/2018 11:35 AM Care Teams Electrical Control Assembler Relationship Specialty Start Date End Date Nuris Berger PA-C PCP - General 02/13/20
--- OUTSIDE RECORDS SUMMARY | 2025-02-03 03:23 | XMS_ITS | Encounter Summary ---
Author Organization [facility] Healthcare Address [address] [place] [address] Care Team Providers Care Clerk Entry Level Name Role Phone Nuris Berger Primary Care Provider [phone] Jonatan Stokes MD Unavailable [phone] Irma Bajwa MD Unavailable [phone] Encounter Details Date Type Department Care Team (Late st Contact Info) Description 06/28/2024 Orders Only [facility] Information Management [address] [place] [address] Scanning, Provider Social History Tobacco Use Types Packs/Day Years Used Date Smoking Tobacco: Former Cigarettes 0.8 40 0 09/1981 - 09/2021 Smokeless Tobacco: Never Alcohol Use Standard Drinks/Week Comments Yes 0 (1 standard drink = 0.6 oz pur e alcohol) social [facility] Utilities Answer Date Recorded In the past 12 months has [employer], gas, oil, or water [employer] threatened to shut off services in your [...] week 12/03/2023 How often do you attend [facility] or cheondoism services? 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
--- NOTE | 2025-02-03 04:01 | ED.RECABL ---
HPI - Recheck/Abnormal Lab/Rx General Chief Complaint: Dizziness Stated Complaint: Light headed, Nausea sodium way down Time Seen by Provider: 02/03/25 02:23 History of Present Illness HPI narrative: 64-year-old male with a history of chronic hiccups and chronic hyponatremia presenting to the emergency department for concerns of low sodium. Patient states that he frequently gets low sodium after drinking copious amounts of water. He states he drinks several gal of water a day in addition to soda pop. This happens to him frequently and he drinks daily. Patient is a well-known patient of this facility and has been admitted previously for hyponatremia and hiccups. Patient has chronic hiccups and takes Thorazine daily for this. He also takes baclofen as a supplemental medication. He has not been compliant with his water restriction diet. He frequently presents with low sodium after drinking copious amounts water. He has no neurological deficits or complaints at this time he is as baseline mentation and denies any nauseousness, vomiting, weakness. Related Data Home Medications Medication Instructions Recorded Confirmed Last Taken Type losartan 50 mg tablet 50 mg PO DAILY 03/02/21 01/10/25 01/10/25 08:00 History 50 mg montelukast 10 mg tablet 10 mg PO DAILY 03/02/21 01/11/25 01/10/25 08:00 History 10 mg pravastatin 80 mg tablet 80 mg PO DAILY 03/02/21 01/11/25 01/09/25 19:00 History 80 mg cholecalciferol (vitamin D3) 25 25 mcg PO DAILY 03/29/21 01/10/25 01/10/25 08:00 History mcg (1,000 unit) capsule (Vitamin 25 mcg D3) cyanocobalamin (vitamin B-12) 100 2,000 mcg PO DAILY 03/29/21 01/10/25 01/10/25 08:00 History mcg tablet 2,000 mcg dorzolamide 22.3 mg-timolol 6.8 1 drp LEFT EYE TID 06/29/24 01/10/25 01/10/25 12:00 History mg/mL eye drops 1 drp budesonide-formoterol HFA 80 2 puff inhalation Q12H 12/26/24 01/10/25 12/26/24 08:00 History mcg-4.5 mcg/actuation aerosol 2 puff inhaler gabapentin 300 mg capsule 300 mg PO DAILY 12/26/24 01/10/25 01/10/25 08:00 History 300 mg prednisolone acetate 1 % eye 1 drp LEFT EYE TID 12/26/24 01/11/25 01/10/25 12:00 History drops,suspension 1 drp Allergies Allergy/AdvReac Type Severity Reaction Status Date / Time No Known Allergies Allergy Verified 02/02/25 20:00 Review of Systems Review of Systems: As reviewed above [facility] Past Medical History Medical History Adenomatous colon polyp Erosive esophagitis Anemia of chronic disease Chronic hiccups Hyponatremia Tobacco abuse Normocytic anemia Glaucoma Legally blind. Chronic obstructive pulmonary disease Hyperlipidemia Hypertension Surgical History Surgical History History of enucleation of eye Right, secondary to recurrent infection. Family History Family History Grandparent Acute myocardial infarction Mother Acute myocardial infarction Skin cancer Father Acute myocardial infarction Sibling Cancer Social History Social History Social History: Surrogate decision maker: Svitlana Hines, . Code status: Full code. Smoking packs per day: 1 Smoking cigarettes per day: 20.0 Years smoked: 30 Smoking pack-years: 30.00 Smoking status: Former smoker Tobacco type: cigarettes Smoking end date: 11/03/20 Alcohol intake: current Drinks per week: 3 Substance use: never Substance use type: does not use Do You Feel Safe in your Home?: Yes Lack of Transportation: No Lack of Food: Never True Current Housing: I Have Housing Concerned About Future Housing: No Difficulty Paying Gas/Electric Bills: No Difficulty Paying for Meds: No Currently Unemployed: No Education: High School Diploma/GED Difficulty w/ Childcare or Family Care: No Living arrangements: with family Additional living arrangements comments: The patient lives with his in [place]. 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 Spiritual care concerns: No Exam Narrative: GENERAL: Hiccuping in bed but denies any complaints otherwise. HEAD: [Normocephalic, atraumatic.] EYES: Blind ENT: Nares clear, no rhinorrhea or epistaxis. Mucous membranes moist. NECK: Supple. CHEST: [Clear to auscultation. No respiratory distress.] HEART: [Regular rate and rhythm]. No murmur heard. [Normal peripheral pulses.] ABDOMEN: [Soft, nondistended], [nontender], [No rigidity or guarding] EXTREMITIES: Normal range of motion. [No edema.] SKIN: Warm, dry, no rash. NEURO: [No focal deficits]. Alert and oriented [x3.] PSYCH: [Normal mood and affect.] Course Vital Signs Vital signs: Vital Signs Temperature 37.1 C 02/02/25 20:14 Pulse Rate 87 02/02/25 20:14 Respiratory Rate 20 02/02/25 20:14 Blood Pressure 148/67 H 02/02/25 20:14 Pulse Oximetry 100 02/02/25 20:14 Oxygen Delivery Room Air 02/02/25 20:14 Temperature 36.7 C 02/02/25 22:42 Pulse Rate 85 02/03/25 04:25 Respiratory Rate 16 02/03/25 04:25 Blood Pressure 137/68 02/03/25 04:25 Pulse Oximetry 100 02/03/25 04:25 Oxygen Delivery Room Air 02/02/25 20:14 MDM - Recheck/Abnormal Lab/Rx MDM Narrative Medical decision making narrative: 64-year-old male with history of chronic hyponatremia from polydipsia. He has chronic hiccups and takes Thorazine for this as well as baclofen. He presents with concerns that his sodium is low. He has no symptoms at this time. He is hemodynamically stable and neurologically stable. He has no findings on examination. He is hiccuping chronically and this is not new for him. He has been to multiple specialists that are not able to solve this problem. He is on chronic Thorazine and baclofen. He is not compliant with his fluid restriction and states that he is drinking several gal of water daily. Patient was evaluated in triage and had laboratory studies drawn and has not had anything to eat or drink since then and brought back to room for evaluation. Patient's laboratory studies showed leukocytosis of 15.7 but no infectious symptoms. Hemoglobin 11.1 which is baseline. Normal platelet count. Patient's electrolytes show sodium 126 which is better than his previous low sodium levels but decreased from December. Normal creatinine and BUN. Normal glucose and LFTs. Urinalysis with no signs of infection. Chest x-ray shows no acute pathology. EKG shows sinus rhythm, normal rate rhythm and axis. Patient was on fluid restriction for several hours here in the emergency department and repeat BMP was drawn which shows improvement with a sodium 129. He has normal renal function at this time. Patient needs to comply with his water restriction and I discussed this with him and his family member thoroughly at bedside. There is nothing that needs to be done otherwise and he needs to get his sodium checked with his primary care provider on outpatient basis after compliant with a sodium. Patient was discussed with the hospitalist regarding his laboratory studies and agreeable that he does not require admission to the hospital and needs to comply with his regimen on outpatient basis. Patient discharged at this time with return precautions and follow-up instructions. Medical Records Attestation: I reviewed the patient's medical records. Lab Data Attestation: I reviewed the patient's lab results. 02/02/25 23:08 02/03/25 02:56 Labs: Lab Results 02/02/25 02/03/25 02/03/25 Range/Units 23:08 02:50 02:56 WBC 15.7 H (4.5-10.0) K/mm3 RBC 3.86 L (4.6-6.20) M/mm3 Hgb 11.1 L (14.0-18.0) g/dL Hct 34.1 L (42.0-52.0) % MCV 88.3 (80-100) fl MCH 28.8 (26-34) pg MCHC 32.6 (32-36) g/dl RDW 13.6 (11.5-14.5) % Plt Count 199 (150-375) k/mm3 MPV 11.0 H (7.4-10.4) fl Immature Gran % (Auto) 0.4 (0-0.5) % Neut % (Auto) 92.1 H (45.5-73.1) % Lymph % (Auto) 3.7 L (18.3-44.2) % [place] % (Auto) 2.4 L (2.6-8.5) % Eos % (Auto) 1.0 (0-4.4) % Baso % (Auto) 0.4 (0.2-1.2) % Lymph # (Auto) 0.58 L (0.9-3.2) K/mm3 [place] # (Auto) 0.4 (0.1-0.6) K/mm3 Eos # (Auto) 0.2 (0-0.3) K/mm3 Baso # (Auto) 0.1 (0.0-0.1) K/mm3 Abs Immat Gran (auto) 0.06 H (0.00-0.031) K/mm3 Absolute Neuts (auto) 14.5 H (1.3-6.7) K/mm3 Absolute Nucleated RBC 0.000 (0.0-0.012) K/mm3 Nucleated RBC % 0.0 (0.0-0.2) % Sodium 126 L 129 L (137-145) mmol/L Potassium 4.1 4.9 (3.4-5.0) mmol/L Chloride 93 L 94 L (98-107) mmol/L Carbon Dioxide 22 26 (22-30) mmol/L Anion Gap 11 9 (4-12) mmol/L BUN 12 11 (9-20) mg/dL Creatinine 0.75 0.78 (0.7-1.3) mg/dL Estim Creat Clear Calc 84 81 ml/min Estimated GFR > 60 > 60 (59 - ) Glucose 130 H 131 H (65-110) mg/dL Calcium 9.4 9.6 (8.4-10.2) mg/dL Total Bilirubin 0.5 (0.2-1.3) mg/dL AST 22 (17-59) U/L ALT 13 (6-50) U/L Alkaline Phosphatase 54 (38-126) U/L Total Protein 7.0 (6.3-8.2) g/dL Albumin 4.1 (3.5-5.1) g/dL Urine Color Yellow (Yellow) Urine Appearance Clear (Clear) Urine pH 6.5 (5.0-9.0) Ur Specific [place] 1.004 (1.001-1.035) Urine Protein Negative (Negative) mg/dL Urine Glucose (UA) Negative (Negative) mg/dL Urine Ketones Negative (Negative) mg/dL Ur Blood (Man) Negative (Negative) Urine Nitrate Negative (Negative) Urine Bilirubin Negative (Negative) Urine Urobilinogen 0.2 (<2.0) mg/dL Leukocyte Esterase Rfl Negative (Negative) BENTLEY/UL Imaging Data Attestation: I personally reviewed and interpreted this imaging study as follows: My impression: Impressions Chest X-Ray 02/02/25 22:01 IMPRESSION: No acute cardiopulmonary pathology. Discharge Plan Discharge Clinical Impression: Chronic hyponatremia, Chronic hiccups Patient Disposition: Home Condition: Stable Instructions: Antibiotic Form, Hyponatremia (ED), Fluid Restriction (DC) Additional Instructions: Your sodium is 129 which is improved from previous labs today after having fluid restriction in the ED. You are causing your own sodium to drop when you drink too much water and this is not going to help solve your hiccups and can only cause problems down the road. No emergent concerns today however. You need to restrict your fluid intake to no more than 2 L of fluid daily (0.5 gallons/day) and talk to your primary doctor for monitoring of your sodium levels outpatient. Continue taking your Thorazine and baclofen and get referrals to specialists from her primary care provider as we have no other options for your chronic intractable hiccups and your iatrogenic hyponatremia. Return with any emergent concerns otherwise. Patient Language: Kenyan Prescriptions: No Action losartan 50 mg tablet 50 mg PO DAILY pravastatin 80 mg tablet 80 mg PO DAILY montelukast 10 mg tablet 10 mg PO DAILY albuterol sulfate 90 mcg/actuation HFA aerosol inhaler 1 inh inhalation QID PRN (Reason: shortness of breath or wheezing) Qty: 8.5 0RF dorzolamide-timolol 22.3-6.8 mg/mL drops 1 drp LEFT EYE TID gabapentin 300 mg capsule 300 mg PO DAILY prednisolone acetate 1 % drops,suspension 1 drp LEFT EYE TID budesonide-formoterol 80-4.5 mcg/actuation HFA aerosol inhaler 2 puff INHALATION Q12H pantoprazole 40 mg tablet,delayed release (DR/EC) 40 mg PO BID 30 Days Qty: 60 5RF metoclopramide HCl 10 mg tablet 10 mg PO Q6H PRN (Reason: nausea and vomiting) Qty: 30 0RF cyanocobalamin (vitamin B-12) 100 mcg Tablet 2,000 mcg PO DAILY cholecalciferol (vitamin D3) [Vitamin D3] 25 mcg (1,000 unit) Capsule 25 mcg PO DAILY chlorpromazine 25 mg Tablet 25 mg PO Q6H PRN (Reason: Hiccups) Qty: 30 0RF sodium chloride 1,000 mg tablet,soluble 1,000 mg PO TID Qty: 90 0RF Follow-up/Referrals: Celine,TRAVIS Lawler [Primary Care Provider] - Time of Disposition: 04:08
[2025-02-03] MEDS: METOCLOPRAMIDE HCL INJ 10 MG/2 ML VIAL IV PUSH (04:05)
[2025-02-03 04:25] VITALS: BP 137/68; PULSE 85; RESP 16; O2SAT 100
== END 2025-02-03 04:25 | disposition home or self-care (01) ==
PROVIDERS: Emergency Provider Student in an Organized Health Care Education/Training Program; PCP Physician Assistant
DX: E87.1 Hypo-osmolality and hyponatremia (principal); R06.6 Hiccough; Z87.891 Personal history of nicotine dependence
CPT/HCPCS: 36415; 71046; 80048; 80053; 81003; 85025; 93005; 96374; 99284; J2765

== ENCOUNTER 2025-03-24 16:30 | Inpatient (IN) | payer MEDICARE, SELFPAY ==
--- NOTE | ~2025-03-24 | CT_ITS ---
EXAMINATION: CT brain wo con DATE: 03/24/2025 20:42 INDICATION: AMS, hyponatremia . TECHNIQUE: Computed tomography (CT) of the head was performed without intravenous contrast. The mA wa s adjusted according to patient size. Iterative reconstruction technique was employed. The dose-lengt h product was 681.00 mGy-cm. COMPARISON: None. FINDINGS: No acute intracranial hemorrhage or extra-axial fluid collection. No hydrocephalus, mass, or herniation. No acute ischemic infarct. Unremarkable dural venous sinus attenuation. No acute osseous abnormality. Left maxillary mucosal thickening, the remaining aerated spaces are clear. Post surgical change in the left orbit. Right globe prosthesis versus silicon injection. IMPRESSION: No acute intracranial process. Reviewed, dictated and finalized at location K.
--- NOTE | ~2025-03-24 | US_ITS ---
Limited ABDOMINAL ULTRASOUND (Doppler ultrasound interrogation techniques used as needed for this exa m.) Ordering provider: Lupis Ortiz APRN History: . Evaluate gallbladder mass noted on US in December . Comparison: December 26, 2024 FINDINGS: PANCREAS: Normal echotexture and size visualized portions. The tail is not well demonstrated. PORTAL VEIN: Hepatopedal flow demonstrated. LIVER: Cystic area is seen in the left lobe measuring 0.5 x 0.5 x 0.6.. Cystic area also seen in the right lobe with echogenic foci measuring 1.1 x 0.8 x 1 cm. Normal size and echotexture. No focal hepa tic lesions or perihepatic fluid collections are identified. BILIARY DUCTS: No intra or extrahepatic biliary dilation. Common bile duct measures 3 mm in diameter which is normal for patient's age. GALLBLADDER: Normal. Previously seen mass is not demonstrated in this study. No stones, sludge, gallb ladder wall thickening or pericholecystic fluid. Wall thicknesses 3 mm. Negative sonographic Herrera's sign. FREE FLUID: None visualized within the upper abdomen. IMPRESSION: Previously seen mass is not demonstrated on this study. Small cystic areas in the right and left lobe s of the liver. Otherwise, normal limited abdominal ultrasound. Reviewed, dictated and finalized at location A. IMPRESSION: Previously seen mass is not demonstrated on this study. Small cystic areas in t he right and left lobes of the liver. Otherwise, normal limited abdominal ultra sound.
--- NOTE | ~2025-03-24 | XR_ITS ---
CHEST RADIOGRAPH, PA AND LATERAL CLINICAL HISTORY: follow up plaques on prior imaging . COMPARISON: 02/02/2025 TECHNIQUE: PA and lateral views of the chest. FINDINGS Calcified lymph nodes within the mediastinum suggesting prior granulomatous disease, for which no fur ther follow-up is needed. The remainder of the cardiomediastinal silhouette is otherwise unremarkable. The lungs are clear. No plaques are detected on prior chest radiograph or on the current examination. The 2 mm calcifications that were detected on prior CT examination of the chest are beyond the resolu tion of plain radiographs. Irrespective of the resolution, punctate calcifications within the pleura are often the result of pre vious inflammation or injury for which no further follow-up is needed. IMPRESSION: No focal infiltrate or effusion. Reviewed, dictated and finalized at location A.
--- OUTSIDE RECORDS SUMMARY | 2025-03-24 16:32 | XMS_ITS | Clinical Summary ---
Author Organization [facility] Address [facility] [place] [address] Care Team Providers Care Tile Molder Name Role Phone Nuris Berger Primary Care Provider [phone] Allergies No known active allergies Medications albuterol [...] Comments Blood Pressure 120/62 09/04/2021 8:52 AM PAINT PREPPER Pulse 82 09/04/2021 8:52 AM PAINT PREPPER Temperature 36.3 C (97.4 F) 09/04/2021 8:52 AM PAINT PREPPER Respiratory Rate 16 09/04/2021 8:52 AM PAINT PREPPER Oxygen Saturation 97% 09/04/2021 8:52 AM PAINT PREPPER Inhaled Oxygen Concentration - - Weight 64.4 kg (142 lb) 09/04/2021 8:52 AM PAINT PREPPER Height 172.7 cm (5' 8) 09/04/2021 8:52 AM PAINT PREPPER Body Mass Index 21.59 09/04/2021 8:52 AM PAINT PREPPER Plan of Treatment Health Maintenance Due Date [...] complete this topic Insurance [employer] Care Teams Tile Molder Relationship Specialty Start Date End Date Nuris Berger PA [address] [place], [place] [phone] PCP - General PHYSICIAN METEOROLOGICAL TECHNICIAN 06/09/21
[2025-03-24 16:58] VITALS: BP 158/63; PULSE 78; RESP 18; TEMP 36.7; O2SAT 98
[2025-03-24 17:13] LABS: Hematocrit 29.3 % (42.0-52.0); Hemoglobin 10.1 g/dL (14.0-18.0); Immature Granulocyte Percent A 0.5 % (0-0.5); Lymphocytes Absolute Auto 1.13 K/mm3 (0.9-3.2); Mean Corpuscular HGB Conc 34.5 g/dl (32-36); Mean Corpuscular Hemoglobin 28.2 pg (26-34); Mean Corpuscular Volume 81.8 fl (80-100); Nucleated Red Blood Cells Absolute Auto 0.000 K/mm3 (0.0-0.012); Nucleated Red Blood Cells Perc 0.0 % (0.0-0.2); Platelet Count Result 239 k/mm3 (150-375); Red Blood Count 3.58 M/mm3 (4.6-6.20); White Blood Count 8.7 K/mm3 (4.5-10.0)
[2025-03-24 17:33] LABS: Alanine Aminotransferase 11 U/L (6-50); Albumin Level 4.2 g/dL (3.5-5.1); Alkaline Phosphatase 56 U/L (38-126); Anion Gap 12 mmol/L (4-12); Aspartate Amino Transferase 24 U/L (17-59); Bilirubin,Total 0.9 mg/dL (0.2-1.3); Blood Urea Nitrogen 7 mg/dL (9-20); Calcium 9.0 mg/dL (8.4-10.2); Carbon Dioxide 19 mmol/L (22-30); Chloride 83 mmol/L (98-107); Estimated CRCL calculation 78 ml/min; Estimated Glomerular Filt Rate > 60; Glucose 99 mg/dL (65-110); Lipase 75 U/L (23-300); Potassium 4.3 mmol/L (3.4-5.0); Sodium 114 mmol/L (137-145); Total Protein 7.2 g/dL (6.3-8.2)
[2025-03-24 18:35] VITALS: BP 159/68; PULSE 75; RESP 24; O2SAT 100
[2025-03-24 18:46] VITALS: BP 152/72; PULSE 75; RESP 22; O2SAT 99
[2025-03-24 19:38] VITALS: BP 152/72; O2SAT 97
[2025-03-24 19:43] LABS: Add Urine Microscopic? NO; Appearance Urine Clear (Clear); Glucose Urine UA Negative (Negative); Leukocyte Esterase Ur Negative LEU/UL (Negative); Nitrate Urine Negative (Negative); Specific Grav Ur 1.002 (1.001-1.035)
--- OUTSIDE RECORDS SUMMARY | 2025-03-24 19:50 | XMS_ITS | Clinical Summary ---
Author Organization [facility] Address [facility] [place] [address] Care Team Providers Care Gis Technician Name Role Phone Nuris Berger Primary Care Provider [phone] Allergies No known active allergies Medications albuterol [...] Comments Blood Pressure 120/62 09/04/2021 8:52 AM CHEMICAL APPLICATOR Pulse 82 09/04/2021 8:52 AM CHEMICAL APPLICATOR Temperature 36.3 C (97.4 F) 09/04/2021 8:52 AM CHEMICAL APPLICATOR Respiratory Rate 16 09/04/2021 8:52 AM CHEMICAL APPLICATOR Oxygen Saturation 97% 09/04/2021 8:52 AM CHEMICAL APPLICATOR Inhaled Oxygen Concentration - - Weight 64.4 kg (142 lb) 09/04/2021 8:52 AM CHEMICAL APPLICATOR Height 172.7 cm (5' 8) 09/04/2021 8:52 AM CHEMICAL APPLICATOR Body Mass Index 21.59 09/04/2021 8:52 AM CHEMICAL APPLICATOR Plan of Treatment Health Maintenance Due Date [...] complete this topic Insurance [employer] Care Teams Gis Technician Relationship Specialty Start Date End Date Nursi Berger PA [address] [place], [place] [phone] PCP - General PHYSICIAN LEAN MANUFACTURING ENGINEER 06/09/21
[2025-03-24 19:52] LABS: Anion Gap 11 mmol/L (4-12); Blood Urea Nitrogen 6 mg/dL (9-20); Calcium 9.2 mg/dL (8.4-10.2); Carbon Dioxide 21 mmol/L (22-30); Chloride 88 mmol/L (98-107); Estimated CRCL calculation 84 ml/min; Estimated Glomerular Filt Rate > 60; Glucose 94 mg/dL (65-110); Potassium 4.5 mmol/L (3.4-5.0); Sodium 120 mmol/L (137-145)
[2025-03-24 20:01] VITALS: BP 168/74; RESP 14; O2SAT 98
--- NOTE | 2025-03-24 20:08 | ED_ITS ---
HPI - Nausea/Vomiting/Diarrhea General Chief complaint: Nausea/Vomiting/Diarrhea Stated complaint: nauseated Time Seen by Provider: 03/24/25 19:05 History of Present Illness HPI Narrative: 64-year-old male with history of chronic hiccups and chronic hyponatremia secondary to polydipsia. Patient's stain C during several gal of water per day but he is supposed to be on a fluid restriction less than 0.5 gal per day. He states that he drinks the water copiously throughout the day to try and control sake ups but this does not work. He is seen frequently in this emergency department and been admitted before for hyponatremia secondary to polydipsia. Patient's family states that he has been more confused lately, nauseous, vomiting and having diarrhea as well as forgetting where he is. Worsening than previously. Patient takes Thorazine daily for hiccups without any relief of symptoms. Patient noncompliant with water restriction diet. No falls or injury reported by family member. Patient is awake and pleasant and hiccuping frequently. No present nauseousness or vomiting. Ambulatory with a steady gait without any ataxia. Related Data Home Medications ?Medication ?Instructions ?Recorded ?Confirmed ?Last Taken ?Type losartan 50 mg tablet 50 mg PO DAILY 03/02/21 03/25/25 01/10/25 08:00 History 50 mg montelukast 10 mg tablet 10 mg PO HS 03/02/21 03/25/25 01/10/25 08:00 History 10 mg pravastatin 80 mg tablet 80 mg PO DAILY 03/02/21 03/25/25 01/09/25 19:00 History 80 mg cholecalciferol (vitamin D3) 25 25 mcg PO DAILY 03/29/21 03/25/25 01/10/25 08:00 History mcg (1,000 unit) capsule (Vitamin 25 mcg D3) cyanocobalamin (vitamin B-12) 100 2,000 mcg PO DAILY 03/29/21 03/25/25 01/10/25 08:00 History mcg tablet 2,000 mcg dorzolamide 22.3 mg-timolol 6.8 1 drp LEFT EYE TID 06/29/24 03/25/25 01/10/25 12:00 History mg/mL eye drops 1 drp budesonide-formoterol HFA 80 2 puff inhalation Q12H 12/26/24 03/25/2525 08:00 History mcg-4.5 mcg/actuation aerosol 2 puff inhaler gabapentin 300 mg capsule 300 mg PO DAILY 12/26/24 03/25/25 01/10/25 08:00 History 300 mg aspirin 81 mg tablet,delayed 81 mg PO DAILY 03/25/25 03/25/25 Unknown History release (Adult Aspirin Regimen) ibuprofen 200 mg tablet (Advil) 600 mg PO BID 03/25/25 03/25/25 Unknown History Allergies Allergy/AdvReac Type Severity Reaction Status Date / Time No Known Allergies Allergy Verified 03/25/25 00:42 Review of Systems 2 Review of Systems: As reviewed above in [facility] Past Medical History Medical History Asthma-COPD overlap syndrome Adenomatous colon polyp Hiatal hernia Other osteonecrosis, left femur Other osteonecrosis, right femur Psychogenic polydipsia Erosive esophagitis Anemia of chronic disease Chronic hiccups Hyponatremia Tobacco abuse Normocytic anemia Glaucoma Legally blind. Hyperlipidemia Hypertension Surgical History Surgical History History of enucleation of eye Right, secondary to recurrent infection. Family History Family History Grandparent Acute myocardial infarction Mother Acute myocardial infarction Skin cancer Father Acute myocardial infarction Sibling Cancer Social History Social History (Updated 03/25/25 @ 02:44 by Esthela Juan DO) Social History: Surrogate decision maker: Svitlana Hines, . Code status: Full code. Smoking packs per day: 1 Smoking cigarettes per day: 20.0 Years smoked: 30 Smoking pack-years: 30.00 Smoking status: Former smoker Tobacco type: cigarettes Smoking end date: 04/01/21 Alcohol intake: current Drinks per week: 3 Substance use: never Substance use type: does not use Do You Feel Safe in your Home?: Yes Lack of Transportation: No Lack of Food: Never True Current Housing: I Have Housing Concerned About Future Housing: No Difficulty Paying Gas/Electric Bills: No Difficulty Paying for Meds: No Currently Unemployed: No Education: High School Diploma/GED Difficulty w/ Childcare or Family Care: No Living arrangements: with family Additional living arrangements comments: The patient lives with his of 43 years in [place]. He and his had 4 children 1 of which at . His remaining children are healthy. 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 Spiritual care concerns: Yes Exam 2 Narrative: GENERAL: Hiccuping constantly throughout the examination but not any acute distress, awake alert oriented HEAD: [Normocephalic, atraumatic.] EYES: Blind in both eyes ENT: Nares clear, no rhinorrhea or epistaxis. Mucous membranes moist. NECK: Supple. CHEST: [Clear to auscultation. No respiratory distress.] HEART: [Regular rate and rhythm]. No murmur heard. [Normal peripheral pulses.] ABDOMEN: [Soft, nondistended], [nontender], [No rigidity or guarding] EXTREMITIES: Normal range of motion. [No edema.] SKIN: Warm, dry, no rash. NEURO: [No focal deficits]. Alert and oriented [x3.] No ataxia in the arms or legs, no truncal ataxia PSYCH: [Normal mood and affect.] Course Vital Signs Vital signs: Vital Signs Temperature 36.7 C 03/24/25 16:58 Pulse Rate 78 03/24/25 16:58 Respiratory Rate 18 03/24/25 16:58 Blood Pressure 158/63 H 03/24/25 16:58 Pulse Oximetry 98 03/24/25 16:58 Oxygen Delivery Room Air 03/24/25 16:58 Temperature 36.7 C 03/25/25 00:37 Pulse Rate 72 03/25/25 00:37 Respiratory Rate 18 03/25/25 00:37 Blood Pressure 153/59 H 03/25/25 00:37 Pulse Oximetry 99 03/25/25 00:37 Oxygen Delivery Room Air 03/24/25 16:58 MDM - Nausea/Vomiting/Diarrhea MDM Narrative Medical decision making narrative: 64-year-old male with history of chronic hiccups and chronic hyponatremia secondary to polydipsia. Patient's stain C during several gal of water per day but he is supposed to be on a fluid restriction less than 0.5 gal per day. He states that he drinks the water copiously throughout the day to try and control sake ups but this does not work. He is seen frequently in this emergency department and been admitted before for hyponatremia secondary to polydipsia. Patient's family states that he has been more confused lately, nauseous, vomiting and having diarrhea as well as forgetting where he is. Worsening than previously. Patient takes Thorazine daily for hiccups without any relief of symptoms. Patient noncompliant with water restriction diet. No falls or injury reported by family member. Patient is awake and pleasant and hiccuping frequently. No present nauseousness. Ambulatory with a steady gait without any ataxia. Suspect patient's condition likely secondary to acute on chronic hyponatremia or other potential causes such as dehydration, electrolyte abnormalities otherwise, closed head injury or intracranial pathology less likely given lack of falls but patient has reported altered mental status makes him high risk. CT of the head was ordered, basic laboratory studies obtained. Placed on voice network administrator and EKG ordered. Patient had elevations in his sodium after fluid restriction here and repeat labs. He will be admitted to the hospital for continued evaluation of his sodiums with frequent q.[address] scans are unremarkable. Remaining laboratory studies show severe hyponatremia at 114, chloride of 83, normal creatinine, normal glucose, normal LFTs, normal albumin lipase. Urinalysis studies ordered and urine osmolality and electrolytes obtained. I discussed the case with Dr. Juan the hospitalist for admission to a telemetry monitored bed at this time. Patient was accepted to the hospital for frequent sodium checks and re-evaluations. He was placed on a 1.5 L fluid restriction. Admitted successfully at this time. Medical Records Attestation: I reviewed the patient's medical records. Lab Data Attestation: I reviewed the patient's lab results. 03/24/25 17:07 03/25/25 00:19 Labs: Lab Results 03/24/25 03/24/25 03/24/25 Range/Units 17:07 19:29 19:30 WBC 8.7 (4.5-10.0) K/mm3 RBC 3.58 L (4.6-6.20) M/mm3 Hgb 10.1 L (14.0-18.0) g/dL Hct 29.3 L (42.0-52.0) % MCV 81.8 (80-100) fl MCH 28.2 (26-34) pg MCHC 34.5 (32-36) g/dl RDW 13.4 (11.5-14.5) % Plt Count 239 (150-375) k/mm3 MPV 10.2 (7.4-10.4) fl Immature Gran % (Auto) 0.5 (0-0.5) % Neut % (Auto) 79.6 H (45.5-73.1) % Lymph % (Auto) 13.0 L (18.3-44.2) % [place] % (Auto) 6.0 (2.6-8.5) % Eos % (Auto) 0.6 (0-4.4) % Baso % (Auto) 0.3 (0.2-1.2) % Lymph # (Auto) 1.13 (0.9-3.2) K/mm3 [place] # (Auto) 0.5 (0.1-0.6) K/mm3 Eos # (Auto) 0.1 (0-0.3) K/mm3 Baso # (Auto) 0.0 (0.0-0.1) K/mm3 Abs Immat Gran (auto) 0.04 H (0.00-0.031) K/mm3 Absolute Neuts (auto) 6.9 H (1.3-6.7) K/mm3 Absolute Nucleated RBC 0.000 (0.0-0.012) K/mm3 Nucleated RBC % 0.0 (0.0-0.2) % Sodium 114 L* 120 L (137-145) mmol/L Potassium 4.3 4.5 (3.4-5.0) mmol/L Chloride 83 L 88 L (98-107) mmol/L Carbon Dioxide 19 L 21 L (22-30) mmol/L Anion Gap 12 11 (4-12) mmol/L BUN 7 L 6 L (9-20) mg/dL Creatinine 0.79 0.73 (0.7-1.3) mg/dL Estim Creat Clear Calc 78 84 ml/min Estimated GFR > 60 > 60 (59 - ) Glucose 99 94 (65-110) mg/dL Serum Osmolality Pending Calcium 9.0 9.2 (8.4-10.2) mg/dL Total Bilirubin 0.9 (0.2-1.3) mg/dL AST 24 (17-59) U/L ALT 11 (6-50) U/L Alkaline Phosphatase 56 (38-126) U/L Total Protein 7.2 (6.3-8.2) g/dL Albumin 4.2 (3.5-5.1) g/dL Lipase 75 (23-300) U/L Urine Color Yellow (Yellow) Urine Appearance Clear (Clear) Urine pH 7.0 (5.0-9.0) Ur Specific [place] 1.002 (1.001-1.035) Urine Protein Negative (Negative) mg/dL Urine Glucose (UA) Negative (Negative) mg/dL Urine Ketones Trace H (Negative) mg/dL Ur Blood (Man) Negative (Negative) Urine Nitrate Negative (Negative) Urine Bilirubin Negative (Negative) Urine Urobilinogen 0.2 (<2.0) mg/dL Leukocyte Esterase Rfl Negative (Negative) BENTLEY/UL Urine Osmolality Pending Ur Random Sodium < 5 meq/L Ur Random Potassium < 25.0 meq/L Urine Creatinine 6.9 mg/dL Imaging Data Attestation: I personally reviewed and interpreted this imaging study as follows: My impression: Impressions Head CT 03/24/25 20:53 IMPRESSION: No acute intracranial process. Critical Care Time Critical Care Time Critical Care Time: Yes Total Critical Care Time: 35 Discharge Plan Discharge Clinical Impression: Acute hyponatremia, Hypertension, Chronic hiccups, Psychogenic polydipsia Patient Disposition: Still a Patient Condition: Stable Time of Disposition: 05:48
[2025-03-24 21:00] VITALS: PULSE 77; RESP 19
--- NOTE | 2025-03-24 22:57 | P.HP_ITS ---
H&P: HPI History of Present Illness Date/Time: 03/25/25 01:30 Chief Complaint: Nausea, vomiting, more forgetful Narrative: 64-year-old male with a past medical history of psychogenic polydipsia with recurrent hyponatremia, COPD, essential hypertension, hyperlipidemia, chronic cups and blindness due to glaucoma who presented to the ER because the family was concerned the patient was more confused. Family reports the patient has been having nausea vomiting and loose stools. They noticed that he was becoming more forgetful. Patient's symptoms had acutely worsened today so they brought him in for evaluation. The patient routinely drinks several gal of water a day despite being told multiple times previously to drink less than half a gal a day. The ER provider had evaluated the patient multiple times in the past and reports the patient is actually at his baseline mentation. The patient had initial sodium in the ER of 114. 2 hours later without any acute intervention the patient's sodium was 120 on repeat labs. The patient has already had 1.1 L of urine output documented by ER nursing staff. Initial urinalysis demonstrated trace ketones and low urine specific gravity is 1.002. Patient's prior sodium levels during recent hospitalization was 129 with his baseline running between 122-129. He is post be on sodium chloride tablets 3 times a day. The patient reports that he was sodium was getting low because he was getting shaky at home. He reports that he feels like he is back at his baseline currently. He has not had anything date eat or drink since 15:00 on the . He reports resolution of his nausea. He is still having chronic it cups which he states is why he is been drinking so much water. He reports lower cystic up get the more he drinks water. He denies any diarrhea or abdominal pain. Patient was alert oriented x4 at the time my evaluation but he does have significant hearing loss which made history process difficult. Review of Systems 2 Review of Systems: 12 systems were reviewed with pertinent positives and negatives per HPI. Except as documented in the HPI, all other systems were reviewed and are negative. FOR[facility]LY [facility] Past Medical History Medical History Asthma-COPD overlap syndrome Adenomatous colon polyp Hiatal hernia Other osteonecrosis, left femur Other osteonecrosis, right femur Psychogenic polydipsia Erosive esophagitis Anemia of chronic disease Chronic hiccups Hyponatremia Tobacco abuse Normocytic anemia Glaucoma Legally blind. Hyperlipidemia Hypertension Surgical History Surgical History History of enucleation of eye Right, secondary to recurrent infection. Family History Family History Grandparent Acute myocardial infarction Mother Acute myocardial infarction Skin cancer Father Acute myocardial infarction Sibling Cancer Social History Social History (Updated 03/25/25 @ 02:44 by Esthela Juan DO) Social History: Surrogate decision maker: Svitlana Hines, . Code status: Full code. Smoking packs per day: 1 Smoking cigarettes per day: 20.0 Years smoked: 30 Smoking pack-years: 30.00 Smoking status: Former smoker Tobacco type: cigarettes Smoking end date: 04/01/21 Alcohol intake: current Drinks per week: 3 Substance use: never Substance use type: does not use Do You Feel Safe in your Home?: Yes Lack of Transportation: No Lack of Food: Never True Current Housing: I Have Housing Concerned About Future Housing: No Difficulty Paying Gas/Electric Bills: No Difficulty Paying for Meds: No Currently Unemployed: No Education: High School Diploma/GED Difficulty w/ Childcare or Family Care: No Living arrangements: with family Additional living arrangements comments: The patient lives with his of 43 years in [place]. He and his had 4 children 1 of which at . His remaining children are healthy. 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 Spiritual care concerns: Yes Meds Home Medications and Allergies Home Medications ?Medication ?Instructions ?Recorded ?Confirmed ?Type losartan 50 mg tablet 50 mg PO DAILY 03/02/21 03/25/25 History montelukast 10 mg tablet 10 mg PO HS 03/02/21 03/25/25 History pravastatin 80 mg tablet 80 mg PO DAILY 03/02/21 03/25/25 History cholecalciferol (vitamin D3) 25 25 mcg PO DAILY 03/29/21 03/25/25 History mcg (1,000 unit) capsule (Vitamin D3) cyanocobalamin (vitamin B-12) 100 2,000 mcg PO DAILY 03/29/21 03/25/25 History mcg tablet albuterol sulfate 90 mcg/actuation 1 inh inhalation QID PRN shortness 05/02/21 03/25/25 Rx aerosol inhaler of breath or wheezing #8.5 grams dorzolamide 22.3 mg-timolol 6.8 1 drp LEFT EYE TID 06/29/24 03/25/25 History mg/mL eye drops budesonide-formoterol HFA 80 2 puff inhalation Q12H 12/26/24 03/25/25 History mcg-4.5 mcg/actuation aerosol inhaler gabapentin 300 mg capsule 300 mg PO DAILY 12/26/24 03/25/25 History metoclopramide HCl 10 mg tablet 10 mg PO Q6H PRN nausea and 12/27/24 03/25/25 Rx vomiting #30 tabs pantoprazole 40 mg tablet,delayed 40 mg PO BID 30 days #60 tabs 12/27/24 03/25/25 Rx release chlorpromazine 25 mg tablet 25 mg PO Q6H PRN Hiccups #30 tabs 01/11/25 03/25/25 Rx sodium chloride 1,000 mg soluble 1,000 mg PO TID #90 tabs 01/11/25 03/25/25 Rx tablet aspirin 81 mg tablet,delayed 81 mg PO DAILY 03/25/25 03/25/25 History release (Adult Aspirin Regimen) ibuprofen 200 mg tablet (Advil) 600 mg PO BID 03/25/25 03/25/25 History Allergies Allergy/AdvReac Type Severity Reaction Status Date / Time No Known Allergies Allergy Verified 03/25/25 00:42 Vital Signs Vital Signs - 24 hr 03/24/25 16:58 03/24/25 18:35 03/24/25 18:46 Temperature 98.1 F Pulse Rate 78 75 75 Respiratory Rate 18 24 H 22 H Blood Pressure 158/63 H 159/68 H 152/72 H Pulse Oximetry 98 100 99 Oxygen Delivery Room Air 03/24/25 19:38 03/24/25 20:01 03/24/25 21:00 Temperature Pulse Rate 77 Respiratory Rate 14 19 Blood Pressure 152/72 H 168/74 H Pulse Oximetry 97 98 Oxygen Delivery Exam 2 Narrative: Weight 70 kg BMI 24.2 Const: Other: Thin body habitus, chronically ill-appearing, appears older than stated age HENMT: Other: * Mucous membranes are tacky, no oral pharyngeal erythema, several teeth are missing in upper and lower jaw but remaining dentition are fair Eyes: Other: He knew chelation of the right eye, chronic scarring of the left eye with chronic conjunctival erythema Neck: Other: No JVD, no lymphadenopathy Resp: Other: Decreased breath sounds bilaterally, no increased work of breathing Cardio: Other: Regular rate, regular rhythm, 2+ bilateral radial and pedal pulses GI: Other: Soft, nontender, nondistended, positive bowel sounds Skin: Other: No jaundice, no pallor Neuro: Other: Alert oriented x4, speech is clear, no facial asymmetry, chronic vision loss, at least moderate hearing loss, no acute localizing neurologic deficits noted during the course of conversation Extrem: Other: No clubbing, cyanosis or edema, moves all extremities equally Psych: Other: Pleasant and cooperative, fair judgment, poor insight H&P: Results Labs Labs: Laboratory Tests 03/24/25 17:07 03/24/25 19:29 03/24/25 03/24/25 03/24/25 17:07 19:29 19:30 WBC 8.7 RBC 3.58 L Hgb 10.1 L Hct 29.3 L MCV 81.8 MCH 28.2 MCHC 34.5 RDW 13.4 Plt Count 239 MPV 10.2 Immature Gran % (Auto) 0.5 Neut % (Auto) 79.6 H Lymph % (Auto) 13.0 L [place] % (Auto) 6.0 Eos % (Auto) 0.6 Baso % (Auto) 0.3 Lymph # (Auto) 1.13 [place] # (Auto) 0.5 Eos # (Auto) 0.1 Baso # (Auto) 0.0 Abs Immat Gran (auto) 0.04 H Absolute Neuts (auto) 6.9 H Absolute Nucleated RBC 0.000 Nucleated RBC % 0.0 Sodium 114 L* 120 L Potassium 4.3 4.5 Chloride 83 L 88 L Carbon Dioxide 19 L 21 L Anion Gap 12 11 BUN 7 L 6 L Creatinine 0.79 0.73 Estim Creat Clear Calc 78 84 Estimated GFR > 60 > 60 Glucose 99 94 Serum Osmolality Pending Calcium 9.0 9.2 Total Bilirubin 0.9 AST 24 ALT 11 Alkaline Phosphatase 56 Total Protein 7.2 Albumin 4.2 Lipase 75 Urine Color Yellow Urine Appearance Clear Urine pH 7.0 Ur Specific Vest[place] 1.002 Urine Protein Negative Urine Glucose (UA) Negative Urine Ketones Trace H Ur Blood (Man) Negative Urine Nitrate Negative Urine Bilirubin Negative Urine Urobilinogen 0.2 Leukocyte Esterase Rfl Negative Urine Osmolality Pending Ur Random Sodium < 5 Ur Random Potassium < 25.0 Urine Creatinine 6.[address] 03/24/25 20:53 IMPRESSION: No acute intracranial process. Assessment and Plan Assessment and plan (1) Psychogenic polydipsia: Code(s): R63.1 - Polydipsia; F54 - Psychological and behavioral factors associated with disorders or diseases classified elsewhere Status: Acute (2) Hyponatremia: Code(s): E87.1 - Hypo-osmolality and hyponatremia Status: Acute (3) Esophagitis: Code(s): K20.90 - Esophagitis, unspecified without bleeding Status: Acute (4) Hiatal hernia: Code(s): K44.9 - Diaphragmatic hernia without obstruction or gangrene Status: Acute (5) Nausea and vomiting: Qualifiers: Vomiting type: unspecified Qualified Code(s): R11.2 - Nausea with vomiting, unspecified Code(s): R11.2 - Nausea with vomiting, unspecified Status: Acute Plan Patient has recurrent acute on chronic hyponatremia due to psychogenic polydipsia. Patient was reportedly symptomatic on arrival to the ER but only after 2 hours of fluid restriction patient's mentation at the time of the ER providers evaluation was back to baseline. Patient's initial sodium was reportedly 114 although repeat level up to 120 after only 2 hours of fluid restriction seems extreme and I am wondering if the initial BMP was not lab error. Repeat electrolyte panels have been ordered for every 4 hours. The patient's 3rd BMP demonstrated marked elevation of his sodium from admission value of 114. He was up to 129. The patient had not had anything to eat or drink since 15:00 on the afternoon of the . Have liberalized the patient's fluid restriction for the short term and have ordered 1 L bolus D5 W. will repeat in 4 hours and re-evaluate. If sodium is not decreased to a more acceptable correction value for the patient's time frame we may need to institute DDAVP. Will hold the patient's home sodium tablets for the short term given his rapid correction of hyponatremia with fluid restriction. Given report of recent nausea vomiting will place patient on Protonix 40 mg q.12 hours given prior history of erosive esophagitis and hiatal hernia. Will continue patient's medications for chronic hiccups. Otherwise will resume patient's home medications as appropriate and monitor sodiums and neuro status closely. MEDICAL DECISION MAKING NARRATIVE -Spoke with the ED provider in detail regarding patient's evaluation, workup and management -Patient seen and examined at bedside -Collaborated with patient's nurse at the bedside in detail and addressed all concerns -Labs, electrolytes, radiology, investigations and test results reviewed -ED/Consult/Nursing/Ancilliary notes on the chart reviewed and appreciated -Spoke with patient/family at the bedside and all questions answered. Quality VTE Prophylaxis VTE prophylaxis: pharmacologic ordered (Lovenox 40 mg subQ daily.) Hospitalist [facility] Advance Care Plan I have confirmed that the patient's Advanced Care Plan is present, code status is documented, or surrogate decision maker is listed in patient medical record.: Yes Medication Reconciliation I have utilized all available resources to obtain, update and review the patients current medications (includes all prescriptions, OTC, herbals, cannabis, and nutritional supplements).: Yes
[2025-03-25] VITALS (10 sets, daily range): BP systolic 106–153; BP diastolic 48–96; PULSE 70–87; RESP 16–18; TEMP 36.5–36.8; O2SAT 91–100; BMI 25.2; BMI 24.1
--- NOTE | 2025-03-25 00:23 | ADMGEN ---
This patient, Mark Hines, was admitted to 2 Medical Room 242-01. Patient/family oriented to hospital policies and general routines including ID bracelet, bed and alarms, visiting hours, pain management, procedures, bathroom and other care routines, personal items, smoking policy, room service/diet, and visiting hours. Information on how to activate the Rapid Response Team has been discussed. Patient/Family are encouraged to report perceived risks to care and to ask questions if they do not understand what they are told or what they should do.
[2025-03-25 00:41] LABS: Anion Gap 13 mmol/L (4-12); Blood Urea Nitrogen 6 mg/dL (9-20); Calcium 9.6 mg/dL (8.4-10.2); Carbon Dioxide 21 mmol/L (22-30); Chloride 95 mmol/L (98-107); Estimated CRCL calculation 81 ml/min; Estimated Glomerular Filt Rate > 60; Glucose 95 mg/dL (65-110); Potassium 4.4 mmol/L (3.4-5.0); Sodium 129 mmol/L (137-145)
[2025-03-25] MEDS: DEXTROSE 5% 1,000 ML 1,000 ML 250 ML IV CONT (02:07)
[2025-03-25 06:16] LABS: Anion Gap 11 mmol/L (4-12); Blood Urea Nitrogen 6 mg/dL (9-20); Calcium 9.8 mg/dL (8.4-10.2); Carbon Dioxide 25 mmol/L (22-30); Chloride 96 mmol/L (98-107); Estimated CRCL calculation 74 ml/min; Estimated Glomerular Filt Rate > 60; Glucose 138 mg/dL (65-110); Potassium 4.7 mmol/L (3.4-5.0); Sodium 132 mmol/L (137-145)
[2025-03-25] MEDS: DORZOLAMIDE/TIMOLOL OPHTH SOL 10 ML BOTTLE 1 DROP LEFT EYE ×3 (06:27→21:00)
[2025-03-25] MEDS: DESMOPRESSIN ACETATE 4 MCG/ML AMP 2 MCG IV PUSH (07:30)
[2025-03-25] MEDS: ASPIRIN 81 MG ENTERIC TABLET PO (08:51)
[2025-03-25] MEDS: CYANOCOBALAMIN 1,000 MCG TABLET 2000 MCG PO (08:51)
[2025-03-25] MEDS: PANTOPRAZOLE 40 MG TABLET PO ×2 (08:51→20:58)
[2025-03-25] MEDS: GABAPENTIN 300 MG CAPSULE PO (08:51)
[2025-03-25] MEDS: PRAVASTATIN SODIUM 20 MG TABLET 80 MG PO (08:51)
[2025-03-25] MEDS: CHOLECALCIFEROL (VITAMIN D3) 25 MCG (1,000 UNITS) TABLET PO (08:52)
[2025-03-25] MEDS: LOSARTAN POTASSIUM 50 MG TABLET PO (08:52)
--- OUTSIDE RECORDS SUMMARY | 2025-03-25 08:59 | XMS_ITS | Clinical Summary ---
Author Organization [facility] Address On license of [facility] [place] [address] Care Team Providers Care Supervisor Assembly Room Name Role Phone Nuris Berger Primary Care Provider [phone] Allergies No known active allergies Medications albuterol [...] Comments Blood Pressure 120/62 09/04/2021 8:52 AM [employer] Pulse 82 09/04/2021 8:52 AM [employer] Temperature 36.3 C (97.4 F) 09/04/2021 8:52 AM [employer] Respiratory Rate 16 09/04/2021 8:52 AM [employer] Oxygen Saturation 97% 09/04/2021 8:52 AM [employer] Inhaled Oxygen Concentration - - Weight 64.4 kg (142 lb) 09/04/2021 8:52 AM [employer] Height 172.7 cm (5' 8) 09/04/2021 8:52 AM [employer] Body Mass Index 21.59 09/04/2021 8:52 AM [employer] Plan of Treatment Health Maintenance Due Date [...] complete this topic Insurance [employer] Care Teams Supervisor Assembly Room Relationship Specialty Start Date End Date Nuris Berger PA [address] [place], [place] [id number] PCP - General 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
[2025-03-25] MEDS: ENOXAPARIN 40 MG/0.4 ML SYRINGE SUB-Q (09:02)
[2025-03-25] MEDS: FLUTICASONE/SALMETEROL 45-21 MCG INHALER 1 PUFF 2 PUFF INHALATION ×2 (09:32→19:56)
--- NOTE | 2025-03-25 11:41 | P.CONNP_ITS ---
Assessment and Plan Assessment and plan (1) Hyponatremia: Code(s): E87.1 - Hypo-osmolality and hyponatremia Status: Acute Assessment and Plan: * acute on chronic * baseline sodum runs around 121 - 131mmol/L * noted history that dates back ~ 4 years ago * sodium levels on previous ER visits noted * suspect admission sodium was lab error * without any specific intervention, sodium improved to 120mmol/L in less than 2 hours * chronic hyponatremia due to: * excessive free water intake (primary reason) * intermittent thorazine use * underlying lung disease(?) * however, evidence of overcorrection is noted by his AM lab of 132mmol/L * will continue to use DDAVP and D5W IVFs * ease up on fluid restriction * goal of therapy is to try get his sodium level to 128mmol/L by 7:30pm today * continue to follow serial sodium levels... I will continue to follow the patient with you while he remains hospitalized and make further recommendations as deemed necessary. Thank you for allowing me to participate in the care of this patient. L History of Present Illness Reason for Consult Consult date: 03/26/25 Reason for consult: hyponatremia Chief Complaint Chief complaint: Acute on chronic hyponatremia History of Present Illness Narrative: The patient is a 64-year-old male with a past medical history as outlined below who presented to [facility] Emergency Room due to acute confusion. The patient's family was concerned as he seemed he has been getting more confused and forgetful for the past day or so and this seemed to acute worsen on the day of admission. His family also reported the patient has been having nausea, vomiting, and loose stools as well. Due to the acute worsening on his mental status And the fact that the symptoms sometime seem to correlate with his issues with worsening hyponatremia, his family brought him to the ER for further assessment.Upon further questioning, the patient admits to drinking several gal of water a day despite being told by multiple times by his physician as well as family that he should drink no more than half a gallon a day. Workup and evaluation emergency room demonstrated the patient be hemodynamically stable and in no acute distress. Routine blood tests were done which demonstrated normal renal function but with a sodium of 114 millimoles per L. Interestingly, 2 hours later without any specific intervention, his sodium level had increased to 120 millimoles per L with the assumption that the 114 laboratory value may have been an error. While he was in the ER, he had almost a L urine output as well. Despite the concerns of acute confusion by his family, by the time of his arrival to the ER, the patient states that he feels that he is at his baseline neurological status. He also states that his nausea and vomits seem to have resolved as well. He gave no other history with regard to diarrhea or abdominal pain. Given the issue of his hyponatremia, he was admitted to the hospital for further evaluation therapy. Since his admission to the hospital, his sodium is actually overcorrected and has required the use of IV DDAVP as well as D5W IV fluids in effort to prevent this from happening. In spite of his fluctuating sodium levels, his mental status remains relatively stable. Renal consultation was requested due to his acute on chronic hyponatremia. The patient is somewhat familiar to me as I have taking care of him before during a previous hospitalization at [facility] for this same issue. The patient was first told about his low sodium levels approximately 4 years ago during a previous hospitalization. He cannot tell me specifically how low his sodium level was or what they thought the cause of his low sodium was at that time. However he reports that he thinks it was his hiccups that led to his low sodium level but cannot clarify or explain much more than that. I first met the patient during his December 2024 admission with regard to his chronic hyponatremia. Interestingly, during that brief hospital stay, his sodiums level seem to auto correct at a reasonable pace without any specific interventions to speak of. He was subsequently discharged and continued on his outpatient sodium tablets with presumed stability in his sodium level following that hospital stay. He has had several other ER visits due to concerns of hyponatremia and his sodium level seems to always improved with just fluid restriction while he is in the ER in general. He is well-known to drink excessive amounts of free water secondary to thinking this helps alleviate his chronic hiccups. This is further complicated by fact that he uses thorazine at times an effort to try to control his hiccups which is well known to precipitate low sodium levels as well. As noted on this admission, his sodium level was 114 millimoles per L but then quickly improved to 120 millimoles per L in just 2 hours with the assumption that the value of 114 may have been incorrect. With just fluid restriction his sodium level then improved to 129 millimoles per L and then subsequently up to 132 millimoles per L by a.m. labs. He was subsequently instituted on D5W IV fluids and given DDAVP in effort to prevent over-correction and his free water fluid restriction was eased up on as well. Currently, at the time my evaluation, he appears to be in no acute distress. Review of Systems 2 Review of Systems: As per HPI. [facility] Past Medical History Medical History Asthma-COPD overlap syndrome Adenomatous colon polyp Hiatal hernia Other osteonecrosis, left femur Other osteonecrosis, right femur Psychogenic polydipsia Erosive esophagitis Anemia of chronic disease Chronic hiccups Hyponatremia Tobacco abuse Normocytic anemia Glaucoma Legally blind. Hyperlipidemia Hypertension Surgical History Surgical History History of enucleation of eye Right, secondary to recurrent infection. Family History Family History Grandparent Acute myocardial infarction Mother Acute myocardial infarction Skin cancer Father Acute myocardial infarction Sibling Cancer Social History Social History (Updated 03/25/25 @ 02:44 by Esthela Juan DO) Social History: Surrogate decision maker: Svitlana Hines, . Code status: Full code. Smoking packs per day: 1 Smoking cigarettes per day: 20.0 Years smoked: 30 Smoking pack-years: 30.00 Smoking status: Former smoker Tobacco type: cigarettes Smoking end date: 04/01/21 Alcohol intake: current Drinks per week: 3 Substance use: never Substance use type: does not use Do You Feel Safe in your Home?: Yes Lack of Transportation: No Lack of Food: Never True Current Housing: I Have Housing Concerned About Future Housing: No Difficulty Paying Gas/Electric Bills: No Difficulty Paying for Meds: No Currently Unemployed: No Education: High School Diploma/GED Difficulty w/ Childcare or Family Care: No Living arrangements: with family Additional living arrangements comments: The patient lives with his of 43 years in [place]. He and his had 4 children 1 of which at . His remaining children are healthy. 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 Spiritual care concerns: Yes Meds Home Medications and Allergies Home Medications ?Medication ?Instructions ?Recorded ?Confirmed ?Type losartan 50 mg tablet 50 mg PO DAILY 03/02/21 03/25/25 History montelukast 10 mg tablet 10 mg PO HS 03/02/21 03/25/25 History pravastatin 80 mg tablet 80 mg PO DAILY 03/02/21 03/25/25 History cholecalciferol (vitamin D3) 25 25 mcg PO DAILY 03/29/21 03/25/25 History mcg (1,000 unit) capsule (Vitamin D3) cyanocobalamin (vitamin B-12) 100 2,000 mcg PO DAILY 03/29/21 03/25/25 History mcg tablet albuterol sulfate 90 mcg/actuation 1 inh inhalation QID PRN shortness 05/02/21 03/25/25 Rx aerosol inhaler of breath or wheezing #8.5 grams dorzolamide 22.3 mg-timolol 6.8 1 drp LEFT EYE TID 06/29/24 03/25/25 History mg/mL eye drops budesonide-formoterol HFA 80 2 puff inhalation Q12H 12/26/24 03/25/25 History mcg-4.5 mcg/actuation aerosol inhaler gabapentin 300 mg capsule 300 mg PO DAILY 12/26/24 03/25/25 History metoclopramide HCl 10 mg tablet 10 mg PO Q6H PRN nausea and 12/27/24 03/25/25 Rx vomiting #30 tabs pantoprazole 40 mg tablet,delayed 40 mg PO BID 30 days #60 tabs 12/27/24 03/25/25 Rx release chlorpromazine 25 mg tablet 25 mg PO Q6H PRN Hiccups #30 tabs 01/11/25 03/25/25 Rx sodium chloride 1,000 mg soluble 1,000 mg PO TID #90 tabs 01/11/25 03/25/25 Rx tablet aspirin 81 mg tablet,delayed 81 mg PO DAILY 03/25/25 03/25/25 History release (Adult Aspirin Regimen) ibuprofen 200 mg tablet (Advil) 600 mg PO BID 03/25/25 03/25/25 History Allergies Allergy/AdvReac Type Severity Reaction Status Date / Time No Known Allergies Allergy Verified 03/25/25 00:42 Vital Signs Vital Signs Temp Pulse Resp BP Pulse Ox O2 Del Method 03/25/25 06:00 97.8 F 71 18 121/96 H 100 03/25/25 04:00 76 03/25/25 00:37 98.1 F 72 18 153/59 H 99 03/24/25 21:00 77 19 03/24/25 20:01 14 168/74 H 98 03/24/25 19:38 152/72 H 97 03/24/25 18:46 75 22 H 152/72 H 99 03/24/25 18:35 75 24 H 159/68 H 100 03/24/25 16:58 98.1 F 78 18 158/63 H 98 Room Air Exam 2 Narrative: GENERAL APPEARANCE: well developed well nourished male in no acute distress HEENT: normocephalic, atraumatic, noted right eye enucleation with cloudy left cornea; nares patient NECK: no lymphadenopathy, thyromegaly, or JVD MOUTH: normal lips, teeth, and gums CARDIOVASCULAR: RRR, normal S1 and S2, no rub detected RESPIRATORY: coarse breath sounds ABDOMEN: soft, nontender, nondistended, positive bowel sounds present EXTREMITIES: no evidence of cyanosis, clubbing, or edema NEUROLOGICAL: alert and oriented x 3; CN II - XII intact bilaterally; no focal deficits noted Results Lab Results 03/26/25 04:16 03/26/25 04:16 Lab results: Most recent lab results Calcium 9.8 mg/dL (8.4-10.2) 03/25/25 05:49 Urine Creatinine 6.9 mg/dL 03/24/25 19:30
--- NOTE | 2025-03-25 11:48 | P.PNIM_ITS ---
Progress Note: A&P Assessment and Plan (1) Psychogenic polydipsia: Code(s): R63.1 - Polydipsia; F54 - Psychological and behavioral factors associated with disorders or diseases classified elsewhere Status: Chronic Assessment and Plan: * Chronic in nature. * Psychogenic - drinks several gallons of water daily. * Continue fluid restriction of 2L as the increased water intake is the cause of his Hyponatremia. (2) Acute hyponatremia: Code(s): E87.1 - Hypo-osmolality and hyponatremia Status: Acute Assessment and Plan: * Sodium has increased from 114-->132. * Suspect initial Sodium level was not accurate. * Awaiting serum osmolality. * Awaiting Nephrology consult. * Continue to hold salt tab dosing pending Nephrology evaluation. * Trend sodium levels with daily labs. (3) Nausea and vomiting: Qualifiers: Vomiting type: unspecified Qualified Code(s): R11.2 - Nausea with vomiting, unspecified Code(s): R11.2 - Nausea with vomiting, unspecified Status: Resolved Assessment and Plan: * Pt is no longer vomiting and is tolerating a heart healthy diet. * No s/s of esophagitis that he has a hx of. (4) Chronic hiccups: Code(s): R06.6 - Hiccough Status: Chronic Assessment and Plan: * Continue Thorazine 25 mg po Q6 hrs prn for symptom control. Time Spent With Patient Time with patient: 15 - 25 minutes Subjective Date/time seen: 03/25/25 11:48 Interval history: This pt is examined at the bedside in interval assessment. He is comfortable without acute complaints and does not have any acute needs at this time. Sodium has increased to 132, which is concerning given the rate of increase from his presenting 114. We are awaiting consult recommendations by Nephrology. We are continuing to hold Sodium Tablets pending Dr. Lopez's recs. Review of Systems Review of Systems: All systems reviewed & are unremarkable except as noted in HPI and below Exam Narrative: GENERAL: well developed, not in acute distress HEENT: Nonicteric sclerae, blind, MMM, atraumatic and normocephalic. HEART: RRR, S1 and S2 present and no m,r,g,h, displacement of PMI. LUNGS: Diminished bases with prolonged expiratory phase. SKIN: pink, dry, without lesion and good turgor. 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 No focal deficits. EXTREMITIES: no edema, FROM of all extremities without deficit. Objective Data Vital Signs Vital Signs: Vital Signs - 24 hr 03/24/25 16:58 03/24/25 18:35 03/24/25 18:46 Temperature 98.1 F Pulse Rate 78 75 75 Respiratory Rate 18 24 H 22 H Blood Pressure 158/63 H 159/68 H 152/72 H Pulse Oximetry 98 100 99 Oxygen Delivery Room Air 03/24/25 19:38 03/24/25 20:01 03/24/25 21:00 Temperature Pulse Rate 77 Respiratory Rate 14 19 Blood Pressure 152/72 H 168/74 H Pulse Oximetry 97 98 Oxygen Delivery 03/25/25 00:37 03/25/25 04:00 03/25/25 06:00 Temperature 98.1 F 97.8 F Pulse Rate 72 76 71 Respiratory Rate 18 18 Blood Pressure 153/59 H 121/96 H Pulse Oximetry 99 100 Oxygen Delivery 03/25/25 08:50 Temperature Pulse Rate Respiratory Rate Blood Pressure Pulse Oximetry Oxygen Delivery Room Air Intake/Output Intake/Output: Intake & Output 03/22/25 03/23/25 03/24/25 03/25/25 23:59 23:59 23:59 23:59 Output Total 2400 Balance -2400 Meds/Results Medications: Active Medications Generic Name Dose Route Start Last Admin Trade Name Freq PRN Reason Stop Dose Admin Acetaminophen 650 mg 03/24/25 22:27 Acetaminophen 325 Mg Tablet PO Q4H PRN Mild Pain (1-3) or Fever Albuterol 1 puff 03/25/25 01:55 Albuterol Sulfate (*Sp) Aerosol 1 Puff INHALATION Q6HRT PRN shortness of breath or wheezing Aspirin 81 mg 03/25/25 09:00 03/25/25 08:51 Aspirin 81 Mg Enteric Tablet PO 81 mg DAILY PASHA Administration Chlorpromazine HCl 25 mg 03/25/25 01:55 03/25/25 06:27 Chlorpromazine Hcl 25 Mg Tablet PO 25 mg Q6H PRN Administration Hiccups Cyanocobalamin 2,000 mcg 03/25/25 09:00 03/25/25 08:51 Cyanocobalamin 1,000 Mcg Tablet PO 2,000 mcg QAM PASHA Administration Dorzolamide/Timolol 1 drop 03/25/25 06:00 03/25/25 06:27 Dorzolamide/Timolol Ophth Shannon 10 Ml Bottle LEFT EYE 1 drop Q8HR PASHA Administration Enoxaparin Sodium 40 mg 03/25/25 09:00 03/25/25 09:02 Enoxaparin 40 Mg/0.4 Ml Syringe SUB-Q 40 mg DAILY PASHA Administration Gabapentin 300 mg 03/25/25 09:00 03/25/25 08:51 Gabapentin 300 Mg Capsule PO 300 mg DAILY PASHA Administration Losartan Potassium 50 mg 03/25/25 09:00 03/25/25 08:52 Losartan Potassium 50 Mg Tablet PO 50 mg DAILY PASHA Administration Metoclopramide HCl 10 mg 03/25/25 01:55 Metoclopramide Hcl 10 Mg Tablet PO Q6H PRN nausea and vomiting Montelukast Sodium 10 mg 03/25/25 21:00 Montelukast Sodium 10 Mg Tablet PO HS [facility] Ondansetron HCl 4 mg 03/24/25 22:27 Ondansetron Inj 4 Mg/2 Ml Vial IV PUSH Q4H PRN Nausea Pantoprazole Sodium 40 mg 03/25/25 09:00 03/25/25 08:51 Pantoprazole 40 Mg Tablet PO 40 mg Q12HR PASHA Administration Pravastatin Sodium 80 mg 03/25/25 09:00 03/25/25 08:51 Pravastatin Sodium 20 Mg Tablet PO 80 mg DAILY PASHA Administration Fluticasone/Salmeterol 2 puff 03/25/25 08:00 03/25/25 09:32 Fluticasone/Salmeterol 45-21 Mcg Inhaler 1 Puff INHALATION 2 puff Q12HRT PASHA Administration Sodium Chloride 1 gm 03/25/25 09:00 Sodium Chloride 1 Gm Tablet PO TID PASHA Vitamin D 25 mcg 03/25/25 09:00 03/25/25 08:52 Cholecalciferol (Vitamin D3) 25 Mcg (1,000 Units) Tablet PO 25 mcg DAILY PASHA Administration Radiology Results: ITS Impressions Head CT 03/24/25 20:53 IMPRESSION: No acute intracranial process. Labs Labs: Laboratory Results - last 24 hr 03/24/25 03/24/25 03/24/25 17:07 19:29 19:30 WBC 8.7 RBC 3.58 L Hgb 10.1 L Hct 29.3 L MCV 81.8 MCH 28.2 MCHC 34.5 RDW 13.4 Plt Count 239 MPV 10.2 Immature Gran % (Auto) 0.5 Neut % (Auto) 79.6 H Lymph % (Auto) 13.0 L Allen % (Auto) 6.0 Eos % (Auto) 0.6 Baso % (Auto) 0.3 Lymph # (Auto) 1.13 Allen # (Auto) 0.5 Eos # (Auto) 0.1 Baso # (Auto) 0.0 Abs Immat Gran (auto) 0.04 H Absolute Neuts (auto) 6.9 H Absolute Nucleated RBC 0.000 Nucleated RBC % 0.0 Sodium 114 L* 120 L Potassium 4.3 4.5 Chloride 83 L 88 L Carbon Dioxide 19 L 21 L Anion Gap 12 11 BUN 7 L 6 L Creatinine 0.79 0.73 Estim Creat Clear Calc 78 84 Estimated GFR > 60 > 60 Glucose 99 94 Calcium 9.0 9.2 Total Bilirubin 0.9 AST 24 ALT 11 Alkaline Phosphatase 56 Total Protein 7.2 Albumin 4.2 Lipase 75 Urine Color Yellow Urine Appearance Clear Urine pH 7.0 Ur Specific [place] 1.002 Urine Protein Negative Urine Glucose (UA) Negative Urine Ketones Trace H Ur Blood (Man) Negative Urine Nitrate Negative Urine Bilirubin Negative Urine Urobilinogen 0.2 Leukocyte Esterase Rfl Negative Ur Random Sodium < 5 Ur Random Potassium < 25.0 Urine Creatinine 6.9 03/25/25 03/25/25 00:19 05:49 WBC RBC Hgb Hct MCV MCH MCHC RDW Plt Count MPV Immature Gran % (Auto) Neut % (Auto) Lymph % (Auto) [place] % (Auto) Eos % (Auto) Baso % (Auto) Lymph # (Auto) [place] # (Auto) Eos # (Auto) Baso # (Auto) Abs Immat Gran (auto) Absolute Neuts (auto) Absolute Nucleated RBC Nucleated RBC % Sodium 129 L 132 L Potassium 4.4 4.7 Chloride 95 L 96 L Carbon Dioxide 21 L 25 Anion Gap 13 H 11 BUN 6 L 6 L Creatinine 0.76 0.84 Estim Creat Clear Calc 81 74 Estimated GFR > 60 > 60 Glucose 95 138 H Calcium 9.6 9.8 Total Bilirubin AST ALT Alkaline Phosphatase Total Protein Albumin Lipase Urine Color Urine Appearance Urine pH Ur Specific [place] Urine Protein Urine Glucose (UA) Urine Ketones Ur Blood (Man) Urine Nitrate Urine Bilirubin Urine Urobilinogen Leukocyte Esterase Rfl Ur Random Sodium Ur Random Potassium Urine Creatinine Quality VTE Prophylaxis VTE prophylaxis: pharmacologic ordered
[2025-03-25 11:54] LABS: Anion Gap 10 mmol/L (4-12); Blood Urea Nitrogen 10 mg/dL (9-20); Calcium 9.8 mg/dL (8.4-10.2); Carbon Dioxide 25 mmol/L (22-30); Chloride 98 mmol/L (98-107); Estimated CRCL calculation 48 ml/min; Estimated Glomerular Filt Rate 55; Glucose 128 mg/dL (65-110); Potassium 4.5 mmol/L (3.4-5.0); Sodium 133 mmol/L (137-145)
[2025-03-25] MEDS: DEXTROSE 5% IN WATER 500 ML 250 ML IV CONT ×2 (13:05→17:22)
[2025-03-25] MEDS: DESMOPRESSIN ACETATE 4 MCG/ML AMP 1 MCG SUB-Q (13:20)
[2025-03-25 16:16] LABS: Hematocrit 34.9 % (42.0-52.0); Hemoglobin 11.5 g/dL (14.0-18.0); Immature Granulocyte Percent A 0.3 % (0-0.5); Lymphocytes Absolute Auto 1.11 K/mm3 (0.9-3.2); Mean Corpuscular HGB Conc 33.0 g/dl (32-36); Mean Corpuscular Hemoglobin 28.4 pg (26-34); Mean Corpuscular Volume 86.2 fl (80-100); Nucleated Red Blood Cells Absolute Auto 0.000 K/mm3 (0.0-0.012); Nucleated Red Blood Cells Perc 0.0 % (0.0-0.2); Platelet Count Result 264 k/mm3 (150-375); Red Blood Count 4.05 M/mm3 (4.6-6.20); White Blood Count 10.6 K/mm3 (4.5-10.0)
[2025-03-25 16:31] LABS: Anion Gap 10 mmol/L (4-12); Blood Urea Nitrogen 15 mg/dL (9-20); Calcium 9.8 mg/dL (8.4-10.2); Carbon Dioxide 24 mmol/L (22-30); Chloride 98 mmol/L (98-107); Estimated CRCL calculation 40 ml/min; Estimated Glomerular Filt Rate 45; Glucose 72 mg/dL (65-110); Potassium 4.7 mmol/L (3.4-5.0); Sodium 132 mmol/L (137-145)
[2025-03-25] MEDS: DESMOPRESSIN ACETATE 4 MCG/ML AMP 2 MCG SUB-Q (17:22)
[2025-03-25 20:38] LABS: Anion Gap 11 mmol/L (4-12); Blood Urea Nitrogen 17 mg/dL (9-20); Calcium 9.3 mg/dL (8.4-10.2); Carbon Dioxide 22 mmol/L (22-30); Chloride 94 mmol/L (98-107); Estimated CRCL calculation 51 ml/min; Estimated Glomerular Filt Rate 59; Glucose 121 mg/dL (65-110); Potassium 4.3 mmol/L (3.4-5.0); Sodium 127 mmol/L (137-145)
[2025-03-25] MEDS: MONTELUKAST SODIUM 10 MG TABLET PO (20:57)
[2025-03-26] VITALS (14 sets, daily range): BP systolic 94–141; BP diastolic 45–56; PULSE 62–75; RESP 16–18; TEMP 36.1–36.8; O2SAT 98–99
[2025-03-26] MEDS: DORZOLAMIDE/TIMOLOL OPHTH SOL 10 ML BOTTLE 1 DROP LEFT EYE ×3 (04:48→21:57)
[2025-03-26 04:54] LABS: Hematocrit 34.8 % (42.0-52.0); Hemoglobin 11.3 g/dL (14.0-18.0); Mean Corpuscular HGB Conc 32.5 g/dl (32-36); Mean Corpuscular Hemoglobin 28.0 pg (26-34); Mean Corpuscular Volume 86.4 fl (80-100); Platelet Count Result 265 k/mm3 (150-375); Red Blood Count 4.03 M/mm3 (4.6-6.20); White Blood Count 14.3 K/mm3 (4.5-10.0)
[2025-03-26 05:12] LABS: Alanine Aminotransferase 12 U/L (6-50); Albumin Level 4.2 g/dL (3.5-5.1); Alkaline Phosphatase 56 U/L (38-126); Anion Gap 12 mmol/L (4-12); Aspartate Amino Transferase 19 U/L (17-59); Bilirubin,Total 0.5 mg/dL (0.2-1.3); Blood Urea Nitrogen 14 mg/dL (9-20); Calcium 9.6 mg/dL (8.4-10.2); Carbon Dioxide 21 mmol/L (22-30); Chloride 94 mmol/L (98-107); Estimated CRCL calculation 64 ml/min; Estimated Glomerular Filt Rate > 60; Glucose 118 mg/dL (65-110); Potassium 4.3 mmol/L (3.4-5.0); Sodium 127 mmol/L (137-145); Total Protein 7.3 g/dL (6.3-8.2)
--- NOTE | 2025-03-26 07:14 | P.PNIM_ITS ---
Progress Note: A&P Assessment and Plan (1) Acute hyponatremia: Code(s): E87.1 - Hypo-osmolality and hyponatremia Status: Acute Assessment and Plan: * Sodium has increased from 114-->132>127. * Suspect initial Sodium level was not accurate. * Awaiting serum osmolality. * Nephrology consult. * Trend sodium levels with daily labs. * Strict I&O (2) Nausea and vomiting: Qualifiers: Vomiting type: unspecified Qualified Code(s): R11.2 - Nausea with vomiting, unspecified Code(s): R11.2 - Nausea with vomiting, unspecified Status: Resolved Assessment and Plan: * Pt is no longer vomiting and is tolerating a heart healthy diet. * No s/s of esophagitis that he has a hx of. 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 * Psychogenic - drinks several gallons of water daily. * Continue fluid restriction of 2L as the increased water intake is the cause of his Hyponatremia. (5) Chronic hiccups: Code(s): R06.6 - Hiccough Status: Chronic Assessment and Plan: * Continue Thorazine 25 mg po Q6 hrs prn for symptom control. Time Spent With Patient Time: 46 minutes Subjective Date/time seen: 03/26/25 07:14 Interval history: VSS. Sodium 132>127 but stable overnight. WBC elevated to 14.3 Intake 1720ml (720 po, 1L IV) No Recent N/V loose stools Review of Systems Review of Systems: 12 systems were reviewed with pertinent positives and negatives per HPI. Except as documented in the HPI, all other systems were reviewed and are negative. All systems reviewed & are unremarkable except as noted in HPI and below Exam Narrative: GENERAL: well developed, not in acute distress HEENT: Nonicteric sclerae, blind, MMM, atraumatic and normocephalic. HEART: RRR, S1 and S2 present and no m,r,g,h, displacement of PMI. LUNGS: Diminished bases with prolonged expiratory phase. SKIN: pink, dry, without lesion and good turgor. 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 No focal deficits. EXTREMITIES: no edema, FROM of all extremities without deficit. Objective Data Vital Signs Vital Signs: Vital Signs - 24 hr 03/25/25 08:00 03/25/25 08:50 03/25/25 12:00 Temperature Pulse Rate 79 87 Respiratory Rate Blood Pressure Pulse Oximetry Oxygen Delivery Room Air 03/25/25 14:00 03/25/25 16:00 03/25/25 19:56 Temperature 97.7 F Pulse Rate 76 71 70 Respiratory Rate 16 16 Blood Pressure 106/48 L Pulse Oximetry 97 Oxygen Delivery 03/25/25 20:00 03/25/25 22:00 03/26/25 00:00 Temperature 98.2 F Pulse Rate 73 71 69 Respiratory Rate 18 Blood Pressure 111/55 L Pulse Oximetry 91 Oxygen Delivery 03/26/25 04:00 03/26/25 06:00 Temperature 98.2 F Pulse Rate 75 74 Respiratory Rate 18 Blood Pressure 94/45 L Pulse Oximetry 98 Oxygen Delivery Intake/Output Intake/Output: Intake & Output 03/23/25 03/24/25 03/25/25 03/26/25 23:59 23:59 23:59 23:59 Intake Total 1720 Output Total 2400 Balance -2400 1720 Meds/Results Medications: Active Medications Generic Name Dose Route Start Last Admin Trade Name Freq PRN Reason Stop Dose Admin Acetaminophen 650 mg 03/24/25 22:27 Acetaminophen 325 Mg Tablet PO Q4H PRN Mild Pain (1-3) or Fever Albuterol 1 puff 03/25/25 01:55 Albuterol Sulfate (*Sp) Aerosol 1 Puff INHALATION Q6HRT PRN shortness of breath or wheezing Aspirin 81 mg 03/25/25 09:00 03/25/25 08:51 Aspirin 81 Mg Enteric Tablet PO 81 mg DAILY PASHA Administration Chlorpromazine HCl 25 mg 03/25/25 01:55 03/26/25 04:47 Chlorpromazine Hcl 25 Mg Tablet PO 25 mg Q6H PRN Administration Hiccups Cyanocobalamin 2,000 mcg 03/25/25 09:00 03/25/25 08:51 Cyanocobalamin 1,000 Mcg Tablet PO 2,000 mcg QAM PASHA Administration Dorzolamide/Timolol 1 drop 03/25/25 06:00 03/26/25 04:48 Dorzolamide/Timolol Ophth Shannon 10 Ml Bottle LEFT EYE 1 drop Q8HR PASHA Administration Enoxaparin Sodium 40 mg 03/25/25 09:00 03/25/25 09:02 Enoxaparin 40 Mg/0.4 Ml Syringe SUB-Q 40 mg DAILY PASHA Administration Gabapentin 300 mg 03/25/25 09:00 03/25/25 08:51 Gabapentin 300 Mg Capsule PO 300 mg DAILY PASHA Administration Losartan Potassium 50 mg 03/25/25 09:00 03/25/25 08:52 Losartan Potassium 50 Mg Tablet PO 50 mg DAILY PASHA Administration Metoclopramide HCl 10 mg 03/25/25 01:55 Metoclopramide Hcl 10 Mg Tablet PO Q6H PRN nausea and vomiting Montelukast Sodium 10 mg 03/25/25 21:00 03/25/25 20:57 Montelukast Sodium 10 Mg Tablet PO 10 mg HS PASHA Administration Ondansetron HCl 4 mg 03/24/25 22:27 Ondansetron Inj 4 Mg/2 Ml Vial IV PUSH Q4H PRN Nausea Pantoprazole Sodium 40 mg 03/25/25 09:00 03/25/25 20:58 Pantoprazole 40 Mg Tablet PO 40 mg Q12HR PASHA Administration Pravastatin Sodium 80 mg 03/25/25 09:00 03/25/25 08:51 Pravastatin Sodium 20 Mg Tablet PO 80 mg DAILY PASHA Administration Fluticasone/Salmeterol 2 puff 03/25/25 08:00 03/25/25 19:56 Fluticasone/Salmeterol 45-21 Mcg Inhaler 1 Puff INHALATION 2 puff Q12HRT PASHA Administration Sodium Chloride 1 gm 03/25/25 09:00 Sodium Chloride 1 Gm Tablet PO TID PASHA Vitamin D 25 mcg 03/25/25 09:00 03/25/25 08:52 Cholecalciferol (Vitamin D3) 25 Mcg (1,000 Units) Tablet PO 25 mcg DAILY PASHA Administration Radiology Results: ITS Impressions Head CT 03/24/25 20:53 IMPRESSION: No acute intracranial process. Labs Labs: Laboratory Results - last 24 hr 03/25/25 03/25/25 03/25/25 11:35 16:10 20:09 WBC 10.6 H RBC 4.05 L Hgb 11.5 L Hct 34.9 L MCV 86.2 D MCH 28.4 MCHC 33.0 RDW 14.5 Plt Count 264 MPV 10.6 H Immature Gran % (Auto) 0.3 Neut % (Auto) 79.9 H Lymph % (Auto) 10.5 L [place] % (Auto) 8.1 Eos % (Auto) 0.6 Baso % (Auto) 0.6 Lymph # (Auto) 1.11 [place] # (Auto) 0.9 H Eos # (Auto) 0.1 Baso # (Auto) 0.1 Abs Immat Gran (auto) 0.03 Absolute Neuts (auto) 8.5 H Absolute Nucleated RBC 0.000 Nucleated RBC % 0.0 Sodium 133 L 132 L 127 L Potassium 4.5 4.7 4.3 Chloride 98 98 94 L Carbon Dioxide 25 24 22 Anion Gap 10 10 11 BUN 10 15 D 17 Creatinine 1.32 H 1.58 H 1.24 Estim Creat Clear Calc 48 40 51 Estimated GFR 55 L 45 L 59 Glucose 128 H 72 121 H Calcium 9.8 9.8 9.3 Total Bilirubin AST ALT Alkaline Phosphatase Total Protein Albumin 03/26/25 04:16 WBC 14.3 H RBC 4.03 L Hgb 11.3 L Hct 34.8 L MCV 86.4 MCH 28.0 MCHC 32.5 RDW 14.4 Plt Count 265 MPV 11.2 H Immature Gran % (Auto) Neut % (Auto) Lymph % (Auto) [place] % (Auto) Eos % (Auto) Baso % (Auto) Lymph # (Auto) [place] # (Auto) Eos # (Auto) Baso # (Auto) Abs Immat Gran (auto) Absolute Neuts (auto) Absolute Nucleated RBC Nucleated RBC % Sodium 127 L Potassium 4.3 Chloride 94 L Carbon Dioxide 21 L Anion Gap 12 BUN 14 Creatinine 0.98 Estim Creat Clear Calc 64 Estimated GFR > 60 Glucose 118 H Calcium 9.6 Total Bilirubin 0.5 AST 19 ALT 12 Alkaline Phosphatase 56 Total Protein 7.3 Albumin 4.2 Quality VTE Prophylaxis VTE prophylaxis: pharmacologic ordered Hospitalist [facility] Advance Care Plan I have confirmed that the patient's Advanced Care Plan is present, code status is documented, or surrogate decision maker is listed in patient medical record.: Yes Medication Reconciliation I have utilized all available resources to obtain, update and review the patients current medications (includes all prescriptions, OTC, herbals, c annabis, and nutritional supplements).: Yes
[2025-03-26] MEDS: CHOLECALCIFEROL (VITAMIN D3) 25 MCG (1,000 UNITS) TABLET PO (08:40)
[2025-03-26] MEDS: ASPIRIN 81 MG ENTERIC TABLET PO (08:40)
[2025-03-26] MEDS: CYANOCOBALAMIN 1,000 MCG TABLET 2000 MCG PO (08:40)
[2025-03-26] MEDS: PANTOPRAZOLE 40 MG TABLET PO ×2 (08:41→20:37)
[2025-03-26] MEDS: PRAVASTATIN SODIUM 20 MG TABLET 80 MG PO (08:41)
[2025-03-26] MEDS: GABAPENTIN 300 MG CAPSULE PO (08:41)
[2025-03-26] MEDS: ENOXAPARIN 40 MG/0.4 ML SYRINGE SUB-Q (08:41)
[2025-03-26] MEDS: LOSARTAN POTASSIUM 50 MG TABLET PO (08:41)
[2025-03-26] MEDS: FLUTICASONE/SALMETEROL 45-21 MCG INHALER 1 PUFF 2 PUFF INHALATION ×2 (08:51→20:10)
--- NOTE | 2025-03-26 10:32 | P.PNNP_ITS ---
Progress Note: A&P Assessment and Plan (1) Hyponatremia: Code(s): E87.1 - Hypo-osmolality and hyponatremia Status: Acute Assessment and Plan: * resolving * acute on chronic * baseline sodium runs around 121 - 131mmol/L * noted history that dates back ~ 4 years ago * sodium levels on previous ER visits noted * suspect admission sodium (of 114) was lab error * without any specific intervention, sodium improved to 120mmol/L in less than 2 hours * chronic hyponatremia due to: * excessive free water intake (primary reason) * intermittent thorazine use * underlying lung disease(?) * evidence of overcorrection is noted on admission * this was stabilized with the use multiple dose of DDAVP and D5W IVFs along with easing up on his fluid restriction * goal of therapy was achieved yesterday * restart/resume fluid restriction Would be opposed to discharge later today if not tomorrow if his sodium level remains stable Will continue to follow. L Subjective Date/time seen: 03/26/25 10:32 Interval history: Follow-up for acute on chronic hyponatremia. Overcorrection of sodium prevented in the last 24 hours with a combination of DDAVP, liberation of fluid restriction, and D5W IVFs; however, despite the rapid rise in his sodium level, he was otherwise asymptomatic and without any acute complaints; no apparent distress noted at the time of my visit; anxious to go home. Exam 2 Narrative: General: WD/WN male in NAD Heart: normal S1 and S2; no rub Lungs: decreased at bases Abdomen: soft, nontender, nondistended, positive bowel sounds Extremities: no cyanosis or clubbing; no edema Skin: warm and dry Objective Data Vital Signs Vital Signs: Vital Signs Temp Pulse Resp BP Pulse Ox O2 Del Method FiO2 03/26/25 09:30 98 Room Air 21 03/26/25 08:45 Room Air 03/26/25 08:39 70 119/54 L 99 03/26/25 08:00 62 03/26/25 06:00 98.2 F 74 18 94/45 L 98 03/26/25 04:00 75 03/26/25 00:00 69 03/25/25 22:00 98.2 F 71 18 111/55 L 91 03/25/25 20:00 73 03/25/25 19:56 70 16 03/25/25 16:00 71 Intake/Output Intake/Output: Intake & Output 03/23/25 03/24/25 03/25/25 03/26/25 23:59 23:59 23:59 23:59 Intake Total 1720 360 Output Total 2400 Balance -2400 1720 360 Meds/Results Medications: Active Medications Generic Name Dose Route Start Last Admin Trade Name Freq PRN Reason Stop Dose Admin Acetaminophen 650 mg 03/24/25 22:27 Acetaminophen 325 Mg Tablet PO Q4H PRN Mild Pain (1-3) or Fever Albuterol 1 puff 03/25/25 01:55 Albuterol Sulfate (*Sp) Aerosol 1 Puff INHALATION Q6HRT PRN shortness of breath or wheezing Aspirin 81 mg 03/25/25 09:00 03/26/25 08:40 Aspirin 81 Mg Enteric Tablet PO 81 mg DAILY PASHA Administration Chlorpromazine HCl 25 mg 03/25/25 01:55 03/26/25 11:44 Chlorpromazine Hcl 25 Mg Tablet PO 25 mg Q6H PRN Administration Hiccups Cyanocobalamin 2,000 mcg 03/25/25 09:00 03/26/25 08:40 Cyanocobalamin 1,000 Mcg Tablet PO 2,000 mcg QAM PASHA Administration Dorzolamide/Timolol 1 drop 03/25/25 06:00 03/26/25 13:16 Dorzolamide/Timolol Ophth Shannon 10 Ml Bottle LEFT EYE 1 drop Q8HR PASHA Administration Enoxaparin Sodium 40 mg 03/25/25 09:00 03/26/25 08:41 Enoxaparin 40 Mg/0.4 Ml Syringe SUB-Q 40 mg DAILY PASHA Administration Gabapentin 300 mg 03/25/25 09:00 03/26/25 08:41 Gabapentin 300 Mg Capsule PO 300 mg DAILY PASHA Administration Losartan Potassium 50 mg 03/25/25 09:00 03/26/25 08:41 Losartan Potassium 50 Mg Tablet PO 50 mg DAILY PASHA Administration Metoclopramide HCl 10 mg 03/25/25 01:55 Metoclopramide Hcl 10 Mg Tablet PO Q6H PRN nausea and vomiting Montelukast Sodium 10 mg 03/25/25 21:00 03/25/25 20:57 Montelukast Sodium 10 Mg Tablet PO 10 mg HS PASHA Administration Ondansetron HCl 4 mg 03/24/25 22:27 Ondansetron Inj 4 Mg/2 Ml Vial IV PUSH Q4H PRN Nausea Pantoprazole Sodium 40 mg 03/25/25 09:00 03/26/25 08:41 Pantoprazole 40 Mg Tablet PO 40 mg Q12HR PASHA Administration Pravastatin Sodium 80 mg 03/25/25 09:00 03/26/25 08:41 Pravastatin Sodium 20 Mg Tablet PO 80 mg DAILY PASHA Administration Fluticasone/Salmeterol 2 puff 03/25/25 08:00 03/26/25 08:51 Fluticasone/Salmeterol 45-21 Mcg Inhaler 1 Puff INHALATION 2 puff Q12HRT PASHA Administration Sodium Chloride 1 gm 03/25/25 09:00 Sodium Chloride 1 Gm Tablet PO TID PASHA Vitamin D 25 mcg 03/25/25 09:00 03/26/25 08:40 Cholecalciferol (Vitamin D3) 25 Mcg (1,000 Units) Tablet PO 25 mcg DAILY PASHA Administration Radiology Results: ITS Impressions Head CT 03/24/25 20:53 IMPRESSION: No acute intracranial process. Labs Labs: Laboratory Tests 03/26/25 04:16 03/26/25 04:16 Calcium 9.6 Total Bilirubin 0.5 AST 19 ALT 12 Alkaline Phosphatase 56 Total Protein 7.3 Albumin 4.2
[2025-03-26] MEDS: MONTELUKAST SODIUM 10 MG TABLET PO (20:37)
[2025-03-27] VITALS (10 sets, daily range): BP systolic 98–130; BP diastolic 46–56; PULSE 64–81; RESP 16–20; TEMP 36.2–36.3; O2SAT 95–99
[2025-03-27 05:28] LABS: Hematocrit 32.5 % (42.0-52.0); Hemoglobin 10.7 g/dL (14.0-18.0); Immature Granulocyte Percent A 0.1 % (0-0.5); Lymphocytes Absolute Auto 1.28 K/mm3 (0.9-3.2); Mean Corpuscular HGB Conc 32.9 g/dl (32-36); Mean Corpuscular Hemoglobin 28.6 pg (26-34); Mean Corpuscular Volume 86.9 fl (80-100); Nucleated Red Blood Cells Absolute Auto 0.000 K/mm3 (0.0-0.012); Nucleated Red Blood Cells Perc 0.0 % (0.0-0.2); Platelet Count Result 211 k/mm3 (150-375); Red Blood Count 3.74 M/mm3 (4.6-6.20); White Blood Count 6.8 K/mm3 (4.5-10.0)
[2025-03-27] MEDS: DORZOLAMIDE/TIMOLOL OPHTH SOL 10 ML BOTTLE 1 DROP LEFT EYE ×3 (05:30→20:52)
[2025-03-27 05:43] LABS: Anion Gap 9 mmol/L (4-12); Blood Urea Nitrogen 12 mg/dL (9-20); Calcium 9.6 mg/dL (8.4-10.2); Carbon Dioxide 24 mmol/L (22-30); Chloride 96 mmol/L (98-107); Estimated CRCL calculation 74 ml/min; Estimated Glomerular Filt Rate > 60; Glucose 107 mg/dL (65-110); Potassium 4.1 mmol/L (3.4-5.0); Sodium 129 mmol/L (137-145)
--- NOTE | 2025-03-27 07:25 | P.PNIM_ITS ---
Progress Note: A&P Assessment and Plan (1) Acute hyponatremia: Code(s): E87.1 - Hypo-osmolality and hyponatremia Status: Acute Assessment and Plan: Chronically low. Head CT was normal. TSH previously normal. * Sodium has increased from 114-->132>127<129. * Suspect initial Sodium level was not accurate. * Awaiting serum osmolality. * Nephrology consulted, appreciate recommendations. * Trend sodium levels with daily labs. * Strict I&O (2) Nausea and vomiting: Qualifiers: Vomiting type: unspecified Qualified Code(s): R11.2 - Nausea with vomiting, unspecified Code(s): R11.2 - Nausea with vomiting, unspecified Status: Resolved Assessment and Plan: * Pt is no longer vomiting and is tolerating a heart healthy diet. * No s/s of esophagitis that he has a hx of. 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 * Psychogenic - drinks several gallons of water daily. * Continue fluid restriction of 2L as the increased water intake is the cause of his Hyponatremia. * Chest x-ray to follow up pneumonia and screen for small cell lung cancer with SIADH (5) Chronic hiccups: Code(s): R06.6 - Hiccough Status: Chronic Assessment and Plan: Unclear cause. Patient reports chronic for over a year. Diaphragmatic irritation vs central cause Previously AM cortisol and TSH normal Repeating Gallbladder US to rule out malignancy * Continue Thorazine 25 mg po Q6 hrs prn for symptom control. Time Spent With Patient Time: 56 minutes Subjective Date/time seen: 03/27/25 07:25 Interval history: VSS. Sodium 132>127<129 improving Intake 1720ml (720 po, 1L IV) WBC normalized Patient not aware of gallbladder mass seen previously. Reimaging Review of Systems Review of Systems: 12 systems were reviewed with pertinent positives and negatives per HPI. Except as documented in the HPI, all other systems were reviewed and are negative. All systems reviewed & are unremarkable except as noted in HPI and below Exam Narrative: GENERAL: well developed, not in acute distress HEENT: Nonicteric sclerae, blind, MMM, atraumatic and normocephalic. HEART: RRR, S1 and S2 present and no m,r,g,h, displacement of PMI. LUNGS: Diminished bases with prolonged expiratory phase. SKIN: pink, dry, without lesion and good turgor. NEUROLOGIC: Alert and oriented, blind, No focal weakness EXTREMITIES: no edema, FROM of all extremities without deficit. Objective Data Vital Signs Vital Signs: Vital Signs - 24 hr 03/26/25 08:00 03/26/25 08:39 03/26/25 08:45 Temperature Pulse Rate 62 70 Respiratory Rate Blood Pressure 119/54 L Pulse Oximetry 99 Oxygen Delivery Room Air Fraction of Inspired Oxygen 03/26/25 09:30 03/26/25 12:00 03/26/25 14:10 Temperature 97.0 F L Pulse Rate 68 66 Respiratory Rate 16 Blood Pressure 110/56 L Pulse Oximetry 98 99 Oxygen Delivery Room Air Fraction of Inspired Oxygen 21 03/26/25 16:00 03/26/25 19:53 03/26/25 20:00 Temperature 97.5 F L Pulse Rate 70 74 74 Respiratory Rate 16 Blood Pressure 141/53 H Pulse Oximetry 99 Oxygen Delivery Fraction of Inspired Oxygen 03/26/25 20:10 03/26/25 20:30 03/26/25 23:02 Temperature Pulse Rate 72 74 Respiratory Rate 16 16 Blood Pressure Pulse Oximetry 99 99 Oxygen Delivery Room Air Room Air Fraction of Inspired Oxygen 21 21 03/27/25 00:00 03/27/25 04:00 03/27/25 04:55 Temperature 97.1 F L Pulse Rate 74 64 68 Respiratory Rate 16 Blood Pressure 128/54 L Pulse Oximetry 98 Oxygen Delivery Fraction of Inspired Oxygen Intake/Output Intake/Output: Intake & Output 03/24/25 03/25/25 03/26/25 03/27/25 23:59 23:59 23:59 23:59 Intake Total 1720 840 Output Total 2400 1000 700 Balance -2400 1720 -160 -700 Meds/Results Medications: Active Medications Generic Name Dose Route Start Last Admin Trade Name Freq PRN Reason Stop Dose Admin Acetaminophen 650 mg 03/24/25 22:27 Acetaminophen 325 Mg Tablet PO Q4H PRN Mild Pain (1-3) or Fever Albuterol 1 puff 03/25/25 01:55 Albuterol Sulfate (*Sp) Aerosol 1 Puff INHALATION Q6HRT PRN shortness of breath or wheezing Aspirin 81 mg 03/25/25 09:00 03/26/25 08:40 Aspirin 81 Mg Enteric Tablet PO 81 mg DAILY PASHA Administration Chlorpromazine HCl 25 mg 03/25/25 01:55 03/27/25 00:31 Chlorpromazine Hcl 25 Mg Tablet PO 25 mg Q6H PRN Administration Hiccups Cyanocobalamin 2,000 mcg 03/25/25 09:00 03/26/25 08:40 Cyanocobalamin 1,000 Mcg Tablet PO 2,000 mcg QAM PASHA Administration Dorzolamide/Timolol 1 drop 03/25/25 06:00 03/27/25 05:30 Dorzolamide/Timolol Ophth Shannon 10 Ml Bottle LEFT EYE 1 drop Q8HR PASHA Administration Enoxaparin Sodium 40 mg 03/25/25 09:00 03/26/25 08:41 Enoxaparin 40 Mg/0.4 Ml Syringe SUB-Q 40 mg DAILY PASHA Administration Gabapentin 300 mg 03/25/25 09:00 03/26/25 08:41 Gabapentin 300 Mg Capsule PO 300 mg DAILY PASHA Administration Losartan Potassium 50 mg 03/25/25 09:00 03/26/25 08:41 Losartan Potassium 50 Mg Tablet PO 50 mg DAILY PASHA Administration Metoclopramide HCl 10 mg 03/25/25 01:55 Metoclopramide Hcl 10 Mg Tablet PO Q6H PRN nausea and vomiting Montelukast Sodium 10 mg 03/25/25 21:00 03/26/25 20:37 Montelukast Sodium 10 Mg Tablet PO 10 mg HS PASHA Administration Ondansetron HCl 4 mg 03/24/25 22:27 Ondansetron Inj 4 Mg/2 Ml Vial IV PUSH Q4H PRN Nausea Pantoprazole Sodium 40 mg 03/25/25 09:00 03/26/25 20:37 Pantoprazole 40 Mg Tablet PO 40 mg Q12HR PASHA Administration Pravastatin Sodium 80 mg 03/25/25 09:00 03/26/25 08:41 Pravastatin Sodium 20 Mg Tablet PO 80 mg DAILY PASHA Administration Fluticasone/Salmeterol 2 puff 03/25/25 08:00 03/26/25 20:10 Fluticasone/Salmeterol 45-21 Mcg Inhaler 1 Puff INHALATION 2 puff Q12HRT PASHA Administration Sodium Chloride 1 gm 03/25/25 09:00 Sodium Chloride 1 Gm Tablet PO TID PASHA Vitamin D 25 mcg 03/25/25 09:00 03/26/25 08:40 Cholecalciferol (Vitamin D3) 25 Mcg (1,000 Units) Tablet PO 25 mcg DAILY PASHA Administration Radiology Results: ITS Impressions Head CT 03/24/25 20:53 IMPRESSION: No acute intracranial process. Labs Labs: Laboratory Results - last 24 hr 03/27/25 04:33 WBC 6.8 RBC 3.74 L Hgb 10.7 L Hct 32.5 L MCV 86.9 MCH 28.6 MCHC 32.9 RDW 14.5 Plt Count 211 MPV 11.6 H Immature Gran % (Auto) 0.1 Neut % (Auto) 72.4 Lymph % (Auto) 18.8 Day % (Auto) 6.6 Eos % (Auto) 1.5 Baso % (Auto) 0.6 Lymph # (Auto) 1.28 Day # (Auto) 0.5 Eos # (Auto) 0.1 Baso # (Auto) 0.0 Abs Immat Gran (auto) 0.01 Absolute Neuts (auto) 4.9 Absolute Nucleated RBC 0.000 Nucleated RBC % 0.0 Sodium 129 L Potassium 4.1 Chloride 96 L Carbon Dioxide 24 Anion Gap 9 BUN 12 Creatinine 0.84 Estim Creat Clear Calc 74 Estimated GFR > 60 Glucose 107 Calcium 9.6 Quality VTE Prophylaxis VTE prophylaxis: pharmacologic ordered Hospitalist [facility] Advance Care Plan I have confirmed that the patient's Advanced Care Plan is present, code status is documented, or surrogate decision maker is listed in patient medical record.: Yes Medication Reconciliation I have utilized all available resources to obtain, update and review the patients current medications (includes all prescriptions, OTC, herbals, cannabis, and nutritional supplements).: Yes
[2025-03-27] MEDS: ASPIRIN 81 MG ENTERIC TABLET PO (08:45)
[2025-03-27] MEDS: CYANOCOBALAMIN 1,000 MCG TABLET 2000 MCG PO (08:45)
[2025-03-27] MEDS: LOSARTAN POTASSIUM 50 MG TABLET PO (08:46)
[2025-03-27] MEDS: PRAVASTATIN SODIUM 20 MG TABLET 80 MG PO (08:46)
[2025-03-27] MEDS: ENOXAPARIN 40 MG/0.4 ML SYRINGE SUB-Q (08:46)
[2025-03-27] MEDS: CHOLECALCIFEROL (VITAMIN D3) 25 MCG (1,000 UNITS) TABLET PO (08:46)
[2025-03-27] MEDS: GABAPENTIN 300 MG CAPSULE PO (08:46)
[2025-03-27] MEDS: PANTOPRAZOLE 40 MG TABLET PO ×2 (08:46→20:54)
[2025-03-27] MEDS: FLUTICASONE/SALMETEROL 45-21 MCG INHALER 1 PUFF 2 PUFF INHALATION ×2 (09:22→20:01)
--- NOTE | 2025-03-27 09:50 | P.PNNP_ITS ---
Progress Note: A&P Assessment and Plan (1) Hyponatremia: Code(s): E87.1 - Hypo-osmolality and hyponatremia Status: Acute Assessment and Plan: * resolving if not stabilizing * acute on chronic * baseline sodium runs around 121 - 131mmol/L * noted history that dates back ~ 4 years ago * sodium levels on previous ER visits noted * suspect admission sodium (of 114) was lab error * without any specific intervention, sodium improved to 120mmol/L in less than 2 hours * chronic hyponatremia due to: * excessive free water intake (primary reason) * intermittent thorazine use * underlying lung disease(?) * evidence of overcorrection is noted on admission * this was stabilized with the use multiple dose of DDAVP and D5W IVFs along with easing up on his fluid restriction * goal of therapy was achieved on 03/25 - 03/26 * on fluid restriction Would be opposed to discharge today if otherwise medically stable -- recommend ongoing fluid restriction of 1500cc/day but as evidenced by his history, I suspect he will not follow this after discharge. Will continue to follow. L Subjective Date/time seen: 03/27/25 09:50 Interval history: Follow-up for acute on chronic hyponatremia. Sodium level remains stable if not improve with current intervention of fluid restriction; no other acute issues or complaints voiced at this time; no events overnight or earlier this morning to report. Exam 2 Narrative: General: WD/WN male in NAD Heart: normal S1 and S2; no rub Lungs: decreased at bases Abdomen: soft, nontender, nondistended, positive bowel sounds Extremities: no cyanosis or clubbing; no edema Skin: warm and intact Objective Data Vital Signs Vital Signs: Vital Signs Temp Pulse Resp BP Pulse Ox O2 Del Method FiO2 03/27/25 08:00 Room Air 03/27/25 04:55 97.1 F L 68 16 128/54 L 98 03/27/25 04:00 64 03/27/25 00:00 74 03/26/25 23:02 99 Room Air 21 03/26/25 20:30 74 16 99 Room Air 21 03/26/25 20:10 72 16 03/26/25 20:00 74 03/26/25 19:53 97.5 F L 74 16 141/53 H 99 Intake/Output Intake/Output: Intake & Output 07/0503/25/25 03/26/25 03/27/25 23:59 23:59 23:59 23:59 Intake Total 1720 840 240 Output Total 2400 1000 700 Balance -2400 1720 160 -683 Meds/Results Medications: Active Medications Generic Name Dose Route Start Last Admin Trade Name Freq PRN Reason Stop Dose Admin Acetaminophen 650 mg 03/24/25 22:27 Acetaminophen 325 Mg Tablet PO Q4H PRN Mild Pain (1-3) or Fever Albuterol 1 puff 03/25/25 01:55 Albuterol Sulfate (*Sp) Aerosol 1 Puff INHALATION Q6HRT PRN shortness of breath or wheezing Aspirin 81 mg 03/25/25 09:00 03/27/25 08:45 Aspirin 81 Mg Enteric Tablet PO 81 mg DAILY PASHA Administration Chlorpromazine HCl 25 mg 03/25/25 01:55 03/27/25 10:22 Chlorpromazine Hcl 25 Mg Tablet PO 25 mg Q6H PRN Administration Hiccups Cyanocobalamin 2,000 mcg 03/25/25 09:00 03/27/25 08:45 Cyanocobalamin 1,000 Mcg Tablet PO 2,000 mcg QAM PASHA Administration Dorzolamide/Timolol 1 drop 03/25/25 06:00 03/27/25 13:25 Dorzolamide/Timolol Ophth Shannon 10 Ml Bottle LEFT EYE 1 drop Q8HR PASHA Administration Enoxaparin Sodium 40 mg 03/25/25 09:00 03/27/25 08:46 Enoxaparin 40 Mg/0.4 Ml Syringe SUB-Q 40 mg DAILY PASHA Administration Gabapentin 300 mg 03/25/25 09:00 03/27/25 08:46 Gabapentin 300 Mg Capsule PO 300 mg DAILY PASHA Administration Losartan Potassium 50 mg 03/25/25 09:00 03/27/25 08:46 Losartan Potassium 50 Mg Tablet PO 50 mg DAILY PASHA Administration Metoclopramide HCl 10 mg 03/25/25 01:55 Metoclopramide Hcl 10 Mg Tablet PO Q6H PRN nausea and vomiting Montelukast Sodium 10 mg 03/25/25 21:00 03/26/25 20:37 Montelukast Sodium 10 Mg Tablet PO 10 mg HS PASHA Administration Ondansetron HCl 4 mg 03/24/25 22:27 Ondansetron Inj 4 Mg/2 Ml Vial IV PUSH Q4H PRN Nausea Pantoprazole Sodium 40 mg 03/25/25 09:00 03/27/25 08:46 Pantoprazole 40 Mg Tablet PO 40 mg Q12HR PASHA Administration Pravastatin Sodium 80 mg 03/25/25 09:00 03/27/25 08:46 Pravastatin Sodium 20 Mg Tablet PO 80 mg DAILY PASHA Administration Fluticasone/Salmeterol 2 puff 03/25/25 08:00 03/27/25 09:22 Fluticasone/Salmeterol 45-21 Mcg Inhaler 1 Puff INHALATION 2 puff Q12HRT PASHA Administration Sodium Chloride 1 gm 03/25/25 09:00 Sodium Chloride 1 Gm Tablet PO TID PASHA Vitamin D 25 mcg 03/25/25 09:00 03/27/25 08:46 Cholecalciferol (Vitamin D3) 25 Mcg (1,000 Units) Tablet PO 25 mcg DAILY PASHA Administration Radiology Results: ITS Impressions Head CT 03/24/25 20:53 IMPRESSION: No acute intracranial process. Abdomen Ultrasound 03/27/25 15:01 IMPRESSION: Previously seen mass is not demonstrated on this study. Small cystic areas in the right and left lobes of the liver. Otherwise, normal limited abdominal ultrasound. Labs Labs: Laboratory Tests 03/27/25 04:33 03/27/25 04:33 Calcium 9.6
[2025-03-27 16:14] LABS: Osmolality, Urine. <50 mOsm/kg (50-1200)
[2025-03-27] MEDS: MONTELUKAST SODIUM 10 MG TABLET PO (20:54)
[2025-03-28] VITALS (8 sets, daily range): BP systolic 103–118; BP diastolic 57–58; PULSE 78–88; RESP 16–20; TEMP 36.5–36.9; O2SAT 96–99
[2025-03-28] MEDS: DORZOLAMIDE/TIMOLOL OPHTH SOL 10 ML BOTTLE 1 DROP LEFT EYE ×2 (06:51→12:53)
[2025-03-28 08:26] LABS: Hematocrit 33.0 % (42.0-52.0); Hemoglobin 10.8 g/dL (14.0-18.0); Immature Granulocyte Percent A 0.3 % (0-0.5); Lymphocytes Absolute Auto 1.10 K/mm3 (0.9-3.2); Mean Corpuscular HGB Conc 32.7 g/dl (32-36); Mean Corpuscular Hemoglobin 28.6 pg (26-34); Mean Corpuscular Volume 87.5 fl (80-100); Nucleated Red Blood Cells Absolute Auto 0.000 K/mm3 (0.0-0.012); Nucleated Red Blood Cells Perc 0.0 % (0.0-0.2); Platelet Count Result 250 k/mm3 (150-375); Red Blood Count 3.77 M/mm3 (4.6-6.20); White Blood Count 6.9 K/mm3 (4.5-10.0)
[2025-03-28] MEDS: FLUTICASONE/SALMETEROL 45-21 MCG INHALER 1 PUFF 2 PUFF INHALATION (08:28)
[2025-03-28 08:46] LABS: Alanine Aminotransferase 9 U/L (6-50); Albumin Level 3.8 g/dL (3.5-5.1); Alkaline Phosphatase 47 U/L (38-126); Anion Gap 10 mmol/L (4-12); Aspartate Amino Transferase 16 U/L (17-59); Bilirubin,Total 0.3 mg/dL (0.2-1.3); Blood Urea Nitrogen 16 mg/dL (9-20); Calcium 9.8 mg/dL (8.4-10.2); Carbon Dioxide 22 mmol/L (22-30); Chloride 103 mmol/L (98-107); Estimated CRCL calculation 53 ml/min; Estimated Glomerular Filt Rate > 60; Glucose 109 mg/dL (65-110); Potassium 4.6 mmol/L (3.4-5.0); Sodium 135 mmol/L (137-145); Total Protein 7.0 g/dL (6.3-8.2)
[2025-03-28] MEDS: ASPIRIN 81 MG ENTERIC TABLET PO (09:05)
[2025-03-28] MEDS: LOSARTAN POTASSIUM 50 MG TABLET PO (09:05)
[2025-03-28] MEDS: ENOXAPARIN 40 MG/0.4 ML SYRINGE SUB-Q (09:05)
[2025-03-28] MEDS: GABAPENTIN 300 MG CAPSULE PO (09:05)
[2025-03-28] MEDS: PANTOPRAZOLE 40 MG TABLET PO (09:05)
[2025-03-28] MEDS: CYANOCOBALAMIN 1,000 MCG TABLET 2000 MCG PO (09:05)
[2025-03-28] MEDS: CHOLECALCIFEROL (VITAMIN D3) 25 MCG (1,000 UNITS) TABLET PO (09:05)
[2025-03-28] MEDS: PRAVASTATIN SODIUM 20 MG TABLET 80 MG PO (09:05)
--- NOTE | 2025-03-28 16:06 | P.DS_ITS ---
DS: Admitting Diagnosis Discharge Date 03/28/2025 Admitting Diagnosis Acute hyponatremia DS: Discharge Diagnosis Discharge Diagnosis (1) Hyponatremia: Code(s): E87.1 - Hypo-osmolality and hyponatremia Status: Acute (2) Chronic hiccups: Code(s): R06.6 - Hiccough Status: Chronic DS: Summary Hospital Course Reason for hospitalization: The patient was admitted for evaluation and management of acute hyponatremia, nausea and vomiting, gastritis, psychogenic polydipsia, and chronic hiccups. Copied from [facility] 03/24: 64-year-old male with a past medical history of psychogenic polydipsia with recurrent hyponatremia, COPD, essential hypertension, hyperlipidemia, chronic cups and blindness due to glaucoma who presented to the ER because the family was concerned the patient was more confused. Family reports the patient has been having nausea vomiting and loose stools. They noticed that he was becoming more forgetful. Patient's symptoms had acutely worsened today so they brought him in for evaluation. The patient routinely drinks several gal of water a day despite being told multiple times previously to drink less than half a gal a day. The ER provider had evaluated the patient multiple times in the past and reports the patient is actually at his baseline mentation. The patient had initial sodium in the ER of 114. 2 hours later without any acute intervention the patient's sodium was 120 on repeat labs. The patient has already had 1.1 L of urine output documented by ER nursing staff. Initial urinalysis demonstrated trace ketones and low urine specific gravity is 1.002. Patient's prior sodium levels during recent hospitalization was 129 with his baseline running between 122-129. He is post be on sodium chloride tablets 3 times a day. The patient reports that he was sodium was getting low because he was getting shaky at home. He reports that he feels like he is back at his baseline currently. He has not had anything date eat or drink since 15:00 on the . He reports resolution of his nausea. He is still having chronic it cups which he states is why he is been drinking so much water. He reports lower cystic up get the more he drinks water. He denies any diarrhea or abdominal pain. Patient was alert oriented x4 at the time my evaluation but he does have significant hearing loss which made history process difficult. Hospital Course: During the hospital stay, the patient's vital signs remained stable. Sodium levels showed improvement with a fluid restriction. White blood cell count normalized. The patient was not previously aware of a gallbladder mass seen on imaging, so repeated an US to follow up Hyponatremia: The patient presented with low sodium levels, initially recorded at 114, which increased to 132, then fluctuated between 127 and [address] A head CT was performed and was normal. Previous thyroid-stimulating hormone levels were normal. The initial sodium level was suspected to be inaccurate. Serum osmolality results are pending. Nephrology was consulted, and their recommendations were appreciated. Sodium levels were trended with daily labs, and strict intake and output monitoring was implemented. Nausea and Vomiting: The patient experienced nausea and vomiting, which have since resolved. Tolerating a heart-healthy diet prior to discharge Gastritis: The patient has a history of erosive esophagitis and was treated for acute gastritis during the hospital stay. Psychogenic Polydipsia: The patient has a chronic condition characterized by excessive water intake, drinking several gallons daily. This behavior is contributing to the hyponatremia. A fluid restriction of 2 liters per day was continued. A chest X- ray was performed to follow up on pneumonia and to screen for small cell lung cancer with SIADH.Chronic Hiccups: The patient has been experiencing chronic hiccups for over a year. The cause remains unclear, with possibilities including diaphragmatic irritation or a central cause. Previous tests, including AM cortisol and TSH, were normal. A gallbladder ultrasound repeated to rule out malignancy. Thorazine 25 mg was prescribed as needed for symptom control. 03/27 Gallbladder US: Previously seen mass is not demonstrated on this study. Small cystic areas in the right and left lobes of the liver. Otherwise, normal limited abdominal ultrasound. Discharge Plan: The patient is discharged with instructions to continue the prescribed fluid restriction and medication regimen. Follow-up appointments with nephrology and gastroenterology are recommended to monitor and manage ongoing conditions. The patient should also follow up with imaging studies as scheduled. Status at Discharge Cognitive/behavioral status at discharge: A&Ox2 Time Spent with Patient Time attestation: Total time spent providing and/or coordinating discharge services:52 minutes Exam Narrative: GENERAL: well developed, not in acute distress HEENT: Nonicteric sclerae, blind, MMM, atraumatic and normocephalic. HEART: RRR, S1 and S2 present and no m,r,g,h, displacement of PMI. LUNGS: Diminished bases with prolonged expiratory phase. SKIN: pink, dry, without lesion and good turgor. NEUROLOGIC: Alert and oriented, blind, No focal weakness EXTREMITIES: no edema, FROM of all extremities without deficit. DS: Data Data Completed and Pending Labs on day of discharge: Labs from last 24 hours 03/28/25 03/24/25 08:12 19:30 WBC 6.9 RBC 3.77 L Hgb 10.8 L Hct 33.0 L MCV 87.5 MCH 28.6 MCHC 32.7 RDW 14.6 H Plt Count 250 MPV 11.0 H Immature Gran % (Auto) 0.3 Neut % (Auto) 75.8 H Lymph % (Auto) 16.0 L [place] % (Auto) 5.8 Eos % (Auto) 1.5 Baso % (Auto) 0.6 Lymph # (Auto) 1.10 [place] # (Auto) 0.4 Eos # (Auto) 0.1 Baso # (Auto) 0.0 Abs Immat Gran (auto) 0.02 Absolute Neuts (auto) 5.2 Absolute Nucleated RBC 0.000 Nucleated RBC % 0.0 Sodium 135 L Potassium 4.6 Chloride 103 Carbon Dioxide 22 Anion Gap 10 BUN 16 Creatinine 1.19 Estim Creat Clear Calc 53 Estimated GFR > 60 Glucose 109 Calcium 9.8 Total Bilirubin 0.3 AST 16 L ALT 9 Alkaline Phosphatase 47 Total Protein 7.0 Albumin 3.8 Urine Osmolality <50 L Discharge Plan Discharge Attending physician on discharge: Lupis Ortiz Consulting providers: Justine Acosta; Marla Lopez; Lupis Ortiz; Benitez Huerta; Kristie,Ishaan Hand; Tabitha Burden Discharging Clinician: Lupis Ortiz Anticipated Discharge Date/Time: 03/28/25 18:30 Patient Disposition: Home Activity: may shower Diet: heart healthy Discharge Instructions: Limit fluid intake to 1.5 Liters a day per nephrology recommendations Patient Instructions: Antibiotic Form Patient Language: Sinhala Stand Alone Forms: General Discharge Information Follow-up/Referrals: Jame Mitchell MD [Physician] - 2 Weeks (Follow up gallbladder mass) Discharge Medications: Continued losartan 50 mg tablet 50 mg PO DAILY pravastatin 80 mg tablet 80 mg PO DAILY montelukast 10 mg tablet 10 mg PO HS albuterol sulfate 90 mcg/actuation HFA aerosol inhaler 1 inh inhalation QID PRN (Reason: shortness of breath or wheezing) Qty: 8.5 0RF dorzolamide-timolol 22.3-6.8 mg/mL drops 1 drp LEFT EYE TID gabapentin 300 mg capsule 300 mg PO DAILY budesonide-formoterol 80-4.5 mcg/actuation HFA aerosol inhaler 2 puff INHALATION Q12H pantoprazole 40 mg tablet,delayed release (DR/EC) 40 mg PO BID 30 Days Qty: 60 5RF metoclopramide HCl 10 mg tablet 10 mg PO Q6H PRN (Reason: nausea and vomiting) Qty: 30 0RF cyanocobalamin (vitamin B-12) 100 mcg Tablet 2,000 mcg PO DAILY cholecalciferol (vitamin D3) [Vitamin D3] 25 mcg (1,000 unit) Capsule 25 mcg PO DAILY chlorpromazine 25 mg Tablet 25 mg PO Q6H PRN (Reason: Hiccups) Qty: 30 0RF aspirin [Adult Aspirin Regimen] 81 mg tablet,delayed release (DR/EC) 81 mg PO DAILY ibuprofen [Advil] 200 mg tablet 600 mg PO BID Discontinued sodium chloride 1,000 mg tablet,soluble 1,000 mg PO TID Qty: 90 0RF Other Ambulatory Orders: Basic Metabolic Panel (Routine) Timeframe: 1 Week Location: Determined by Patient Ordered By: Lupis Ortiz Date of admission: 03/26/25 10:03 Primary Care Provider: Celine,Nuris Admitting Provider: Esthela Juan Attending physician on admission: Lupis Ortiz Condition: Stable Quality VTE Prophylaxis VTE prophylaxis: pharmacologic ordered Hospitalist MIPS Heart Failure (Exclusion) Patient has history of Heart Transplant or Left Ventricular Assistive Device?: No IF YES, STOP HERE Heart Failure (Qualifier) Patient has current or prior documentation of LVEF less than or equal to 40%, or mod/servere depressed LVSF?: No IF NO, STOP HERE
== END 2025-03-28 16:44 | disposition home or self-care (01) | DRG 641 ==
LOC: ANHED 19:49 → ANH2MED 03-25 05:46
PROVIDERS: Emergency Medicine; Internal Medicine Nephrology; Nurse Practitioner Adult Health; Admitting Provider Internal Medicine; Emergency Provider Student in an Organized Health Care Education/Training Program; PCP Physician Assistant; Visit Provider Nurse Practitioner Acute Care
DX: E87.1 Hypo-osmolality and hyponatremia (principal); M87.852 Other osteonecrosis, left femur; M87.851 Other osteonecrosis, right femur; R63.1 Polydipsia; Z91.198 Patient's noncompliance with other medical treatment and regimen for other reason; F54 Psychological and behavioral factors associated with disorders or diseases classified elsewhere; R06.6 Hiccough; K20.90 Esophagitis, unspecified without bleeding; I10 Essential (primary) hypertension; E78.5 Hyperlipidemia, unspecified; K44.9 Diaphragmatic hernia without obstruction or gangrene; H40.9 Unspecified glaucoma; H54.8 Legal blindness, as defined in USA; D63.8 Anemia in other chronic diseases classified elsewhere; Z87.891 Personal history of nicotine dependence
CPT/HCPCS: 36415; 70450; 71046; 76705; 80048; 80053; 81003; 82570; 83690; 83930; 83935; 84133; 84300; 85025; 85027; 94640; 96365; 96366; 96372; 96375; 96376; 99285; A9270; G0378; J1650; J2597; J7060; J7070

== ENCOUNTER 2025-05-26 12:00 | Inpatient (IN) | payer MEDICARE, SELFPAY ==
--- NOTE | ~2025-05-26 | XR_ITS ---
Examination: XR chest 1V portable Clinical History: coughing on chicken Comparison: 3 days prior Technique: Portable AP Findings: Heart size normal. Improving but persistent left basilar interstitial markings. Lungs otherwise clear. No acute bony abnormality. IMPRESSION: 1. Improving but persistent left basilar atelectasis and/or pneumonitis. Reviewed, dictated and finalized at location R.
--- NOTE | ~2025-05-26 | XR_ITS ---
EXAMINATION: XR chest 2V DATE: 05/26/2025 14:35 INDICATION: Weakness and dizziness TECHNIQUE: frontal and lateral views of the chest were obtained. COMPARISON: Chest radiograph dated 03/27/2025 FINDINGS: Mild indistinct interstitial opacities in the left mid to lower lung zone. Right lung remains clear. No pleural effusion or pneumothorax. The cardiomediastinal silhouette is normal. Thoracic kyphosis with mild anterior wedging of a few mid and lower thoracic vertebral bodies. There are also bridging osteophytes at multiple levels consistent with diffuse idiopathic skeletal hyperostosis (DISH). IMPRESSION: 1. Mild increased initial pattern in the left mid to lower lung zone which could represent asymmetric mild pulmonary edema or pneumonia. Reviewed, dictated and finalized at location A. IMPRESSION: 1. Mild increased initial pattern in the left mid to lower lung zone which coul d represent asymmetric mild pulmonary edema or pneumonia.
--- OUTSIDE RECORDS SUMMARY | 2025-05-26 12:02 | XMS_ITS | Encounter Summary ---
Author Organization [facility] Healthcare Address [address] [place] [address] Care Team Providers Care Email Administrator Name Role Phone Nuris Berger Primary Care Provider [phone] Jonatan Stokes MD Unavailable [phone] Irma Bajwa MD Unavailable [phone] Ayla Dugan LPN Unavailable [phone] Encounter Details Date Type Department Care Team (Late st Contact Info) Description 12/21/2024 Orders Only [facility] Health Information Management [address] [place] [id number] Scanning, Provider Social History Tobacco Use Types Packs/Day Years Used Date Smoking Tobacco: Former Cigarettes 0.8 40 0 09/1981 - 09/2021 Smokeless Tobacco: Never Alcohol Use Standard Drinks/Week Comments Yes 0 (1 standard drink = 0.6 oz pur e alcohol) social [facility] Utilities Answer Date Recorded In the past 12 months has [employer] electric, gas, oil, or water company threatened to shut off services in your home? No 12/03/2023 Social Connection and Isolation Panel Answer Date Recorded In a typical week, how many times do you talk on the phone with family, friends, or neighbors? More than three times a week 12/03/2023 How often do you get togethe r with friends or relatives? More than three times a week 12/03/2023 How often do you attend [facility] or synagogue services? 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 Gender Identity Not on file Sexual [...] on filedocumented in this encounter Care Teams Email Administrator Relationship Specialty Start Date End Date Nuris Berger PA [address] [facility] [address] [place] [address] PCP - General Internal Medicine 12/28/18 Jonatan Stokes MD [address] [place] [address] Consulting Physician Otolaryngology 03/27/20 Irma Bajwa MD [address] [facility] [place] [address] Consulting Physician Neurology 05/07/22 Ayla Dugan, TREMAYNE [address] [place] [address] [address] [place] [address] [employer] 03/30/25 03/30/25 documented as of this encounter
--- OUTSIDE RECORDS SUMMARY | 2025-05-26 12:02 | XMS_ITS | Encounter Summary ---
Author Organization [facility] Healthcare Address [address] [place] [address] Care Team Providers Care Load Dispatcher Name Role Phone Nuris Berger Primary Care Provider [phone] Jonatan Stokes MD Unavailable [phone] Irma Bajwa MD Unavailable [phone] Ayla Dugan LPN Unavailable [phone] Encounter Details Date Type Department Care Team (Late st Contact Info) Description 06/28/2024 Orders Only [facility] Health Information Management [address] [place] [id number] Scanning, Provider Social History Tobacco Use Types Packs/Day Years Used Date Smoking Tobacco: Former Cigarettes 0.8 40 0 09/1981 - 09/2021 Smokeless Tobacco: Never Alcohol Use Standard Drinks/Week Comments Yes 0 (1 standard drink = 0.6 oz pur e alcohol) social [facility] Utilities Answer Date Recorded In the past 12 months has [employer] electric, gas, oil, or water company threatened [...] often do you attend [facility] or mosque services? 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 Gender Identity Not on file Sexual Orientation [...] on filedocumented in this encounter Care Teams Load Dispatcher Relationship Specialty Start Date End Date Nuris Berger PA [address] [facility] [address] [place] [address] PCP - General Internal Medicine 12/28/18 Jonatan Stokes MD [address] [place] [address] Consulting Physician Otolaryngology 03/27/20 Irma Bajwa MD [address] [facility] [place] [address] Consulting Physician Neurology 05/07/22 Ayla Dugan LPN [address] [place] [address] [address] [place] [address] Wound Care Rn 03/30/25 03/30/25 documented as of this encounter
--- OUTSIDE RECORDS SUMMARY | 2025-05-26 12:02 | XMS_ITS | Clinical Summary ---
Author Organization [facility] – [place] [address] [facility] Address [address] [place] [address] Care Team Providers Care Stylist Apprentice Name Role Phone Nuris Berger Primary Care Provider [phone] Jonatan Stokes MD Unavailable [phone] Irma Bajwa MD Unavailable [phone] Allergies Active Allergy Reactions Criticality Noted Date Comments Chlorpromazine Other (See comments) Low 12/02/2023 Neurology consult during his 12/02/2023 hospitalization states the facial twitching is NOT consistent with Tardive Dyskinesia so ok to use Thorazine prn for the chronic intractable hiccups Medications albuterol HFA (PROVENTIL HFA,VENTOLIN HFA,PROAIR HFA) 90 mcg/actuation inhalerIndicat ions:Chronic obstructive pulmonary disease, unspecified COPD type (HCC),Uncompli cated asthma, unspecified asthma severity, unspecified whether persistent Inhale 2 puffs every 6 (six) hours as needed for wheezing or shortness of breath 1 each 6 11/20/19 23 Active cyanocobalamin (Vitamin B-12) 100 mcg tablet Take 1 tablet (100 mcg total) by mouth daily Active dorzolamide-ti moloL (COSOPT) 22.3-6.8 mg/mL ophthalmic solution INSTILL 1 DROP IN LEFT EYE THREE TIMES DAILY Active neomycin-polym yxin-dexAMETHa sone (MAXITROL) 3.5mg/mL-10,00 0 unit/mL-0.1 % ophthalmic suspension SHAKE LIQUID AND INSTILL 1 DROP IN RIGHT EYE TWICE DAILY NEEDED 07/01/20 23 Active cholecalcifero l (VITAMIN D-3) 25 mcg (1,000 unit) tablet Take 1 tablet (1,000 Units total) by mouth daily 11/24/19 24 Active aspirin 81 mg enteric coated tablet Take 1 tablet (81 mg total) by mouth daily 06/20/20 24 025 Active tobramycin-dex AMETHasone (TOBRADEX) ophthalmic solution INSTILL 1 DROP LEFT EYE EVERY NIGHT AT BEDTIME 06/10/20 24 Active prednisoLONE acetate (PRED FORTE) 1 % ophthalmic suspension 04/24/20 24 Active polymyxin B-trimethoprim (POLYTRIM) ophthalmic solution INSTILL 1 DROP IN LEFT EYE FOUR TIMES DAILY 04/26/20 24 Active budesonide-for moteroL (SYMBICORT) 80-4.5 mcg/actuation inhalerIndicat ions:Mild persistent asthma without complication,C hronic obstructive pulmonary disease, unspecified COPD type (HCC) [...] day 90 tablet 3 11/20/19 25 Active Additional Information Patient not taking.Reported on 05/01/[address] (PROTONIX) 40 mg EC tablet Take 1 tablet (40 mg total) by mouth daily 90 tablet 2 12/08/19 25 Active losartan (COZAAR) 50 mg tablet TAKE 1 TABLET(50 MG) BY MOUTH DAILY 90 tablet 1 01/23/20 25 Active metoclopramide (REGLAN) 10 mg tablet Take 1 tablet (10 mg total) by mouth 4 (four) times a day as needed (hiccups) 30 tablet 02/01/20 25 Active baclofen (LIORESAL) 10 mg tabletIndicati ons:Low back pain, unspecified back pain laterality, unspecified chronicity, unspecified whether sciatica present TAKE 1 TABLET(10 MG) BY MOUTH TWICE DAILY 60 tablet 1 04/16/20 25 Active chlorproMAZINE (THORAZINE) 25 mg tablet Take 1 tablet (25 mg total) by mouth 4 (four) times a day 120 tablet 1 05/01/20 25 Active montelukast (SINGULAIR) 10 mg tabletIndicati ons:Uncomplica johnny asthma, unspecified asthma severity, unspecified whether persistent TAKE 1 TABLET(10 MG) BY MOUTH EVERY NIGHT 90 tablet 2 05/11/20 25 Active gabapentin (NEURONTIN) 300 mg capsuleIndicat ions:Chronic hiccups TAKE 1 CAPSULE(300 MG) BY MOUTH THREE TIMES DAILY 300 capsule 05/23/20 25 Active montelukast (SINGULAIR) 10 mg tabletIndicati ons:Uncomplica johnny asthma, unspecified asthma severity, unspecified whether persistent TAKE 1 TABLET(10 MG) BY MOUTH EVERY NIGHT 90 tablet 2 07/17/20 24 025 Discontinued gabapentin (NEURONTIN) 300 mg capsuleIndicat ions:Chronic hiccups TAKE 1 CAPSULE(300 MG) BY MOUTH THREE TIMES DAILY 300 capsule 01/23/20 25 025 Discontinued chlorproMAZINE (THORAZINE) 25 mg tablet TAKE 1 TABLET(25 MG) BY MOUTH FOUR TIMES DAILY NEEDED FOR HICCUPS 30 tablet 04/09/20 25 025 Discontinued(R eorder) Active Problems Patient Care Coordination No te Formatting of this note migh t be different from the original. CAD for BIC Problem Noted Date Diagnosed Date Primary hypertension 05/13/2025 Seasonal allergic rhinitis due to pollen 025 BMI 24.0-24.9, adult 05/01/2025 Assessment & Plan (05/01/2025 9:07 AM CDT): Weight/BMI is in healthy range. Continue healthy lifestyle to maintain. Vitamin D deficiency 11/24/2023 Assessment & Plan (11/19/2024 11:45 PM WILLOWER): Supplement Assessment & Plan (05/20/2024 7:36 PM CDT): Supplement Fatigue 12/12/2022 Assessment & Plan (05/20/2024 7:37 PM CDT): Probably multifactorial. Check labs and followup to re-evaluate Assessment & Plan (11/24/2023 10:35 AM WILLOWER): Probably multifactorial. Check labs and followup to [...] 01/16/2022 Assessment & Plan (11/19/2024 11:44 PM WILLOWER): Chronic hiccups for 5+ years Has been [...] to the ER. ER recommended referral to [facility] but patient states he can't go to [...] weeks Assessment & Plan (11/24/2023 10:34 AM WILLOWER): Patient has persistent chronic hiccups that come [...] monitor Assessment & Plan (08/15/2023 5:01 PM WILLOWER): Chronic hiccups for years. Has tried multiple interventions along with multiple workups from specialists including Neurology pulmonology and GI. Continue current regimen. Stressed importance of limiting water intake when he has the hiccups spells as this has been leading to hyponatremia requiring hospitalization. Assessment & Plan (08/11/2023 8:45 AM WILLOWER): Patient with chronic hiccups. Have had difficulty [...] levels. Assessment & Plan (08/15/2022 6:45 PM WILLOWER): Patient has consulted with most multiple specialists [...] hiccups. Assessment & Plan (08/15/2023 5:02 PM WILLOWER): Chronic hiccups for years. Has tried multiple interventions along with multiple workups from specialists including Neurology pulmonology and GI. Continue current regimen. Stressed importance of limiting water intake when he has the hiccups spells as this has been leading to hyponatremia requiring hospitalization. Assessment & Plan (08/11/2023 8:46 AM WILLOWER): Hyponatremia secondary to water intake with chronic [...] 07/14/2019 Assessment & Plan (11/19/2024 11:44 PM WILLOWER): Continue PPI p.r.n. Assessment & Plan (05/20/2024 7:35 PM CDT): Continue pantoprazole p.r.n. Assessment & Plan (11/24/2023 10:33 AM WILLOWER): Continue pantoprazole p.r.n. Assessment & Plan (04/08/2023 8:48 PM CDT): Continue PPI p.r.n. Assessment & Plan (12/12/2022 9:43 PM CDT): Insert PPI Assessment & Plan (08/15/2022 6:45 PM WILLOWER): Continue PPI prn Assessment & Plan (02/09/2021 8:17 PM CDT): Continue PPI Assessment & Plan (07/29/2020 7:33 AM WILLOWER): Continue PPI Assessment & Plan (03/27/2020 8:01 AM CDT): Dr. Stokes changed him from omeprazole to Pantoprazole for the hiccups. Pt hasn't noted any difference in GERD sxs (still well controlled) or hiccups. Assessment & Plan (09/26/2019 7:38 AM WILLOWER): Continue PPI Assessment & Plan (07/14/2019 8:46 AM CDT): Discussed GERD at length including anatomy, behavioral changes (raise HOB, meal timings), dietary changes and medication options. Reviewed risks, benefits alternatives, side effects and proper use. Followup if sxs worsen or has hematochezia or hematemeis. Start PPI Chronic obstructive pulmonary disease 06/26/2019 Overview (06/26/2019): Noted on 06/2019 LDCT Assessment & Plan (11/19/2024 11:44 PM WILLOWER): Patient with allergies and COPD. Continue Singulair albuterol and Symbicort. Follows with Dr. Valdes. Assessment & Plan (05/20/2024 7:35 PM CDT): Continue per Dr. Valdes. Continue with his Symbicort and albuterol inhalers. Low-dose CT will be scheduled for June 16, 2024. Assessment & Plan (11/24/2023 10:33 AM WILLOWER): COPD. Continue per Dr. Hammond his client evaluator Continue Symbicort Singulair and albuterol p.r.n. Assessment & Plan (04/08/2023 8:48 PM CDT): Encouraged smoking cessation. Continue per Dr. Hammond pulmonology. He is on albuterol Symbicort and Singulair Assessment & Plan (12/12/2022 9:43 PM CDT): Stop smoking. Continue per Pulmonary. Continue Symbicort Singulair and albuterol. Continue monitoring low-dose CTs as instructed Assessment & Plan (08/15/2022 6:44 PM WILLOWER): Stop smoking. Continue current plan per Pulmonary Assessment & Plan (08/01/2021 9:34 PM WILLOWER): Continue per Pulmonary Dr. Valdes Assessment & Plan (02/09/2021 8:15 PM CDT): Stop smoking. Continue per Dr. Valdes Assessment & Plan (07/29/2020 7:32 AM WILLOWER): Continue per Pulm Assessment & Plan (03/27/2020 8:00 AM CDT): Stop smoking. He declines starting inhalers or referral to Pulmonary Assessment & Plan (09/26/2019 10:27 PM WILLOWER): This is a significant, separately identifiable problem [...] order Assessment & Plan (07/29/2020 7:33 AM WILLOWER): Needs to repeat ---Dr. Valdes has already ordered Assessment & Plan (03/27/2020 8:00 AM CDT): 06/2019 LDCT Several 2-3mm nodules, probable benign LungRADs 2 --- repeat 06/2020 Assessment & Plan (09/26/2019 10:26 PM WILLOWER): 06/2019 LDCT Several 2-3mm nodules, probable benign LungRADs 2 --- repeat 06/2020 Hyperplastic rectal polyp 05/20/2019 Overview (05/20/2019): Colonoscopy 01/29/2012 at [facility]--->2021 Assessment & Plan (05/28/2019 7:33 PM CDT): Recvd colonoscopy and due to repeat in 2021 Hiatal hernia 05/20/2019 Mixed hyperlipidemia 05/20/2019 Assessment & Plan (11/19/2024 11:45 PM WILLOWER): Encouraged patient to follow low fat/low chol [...] 80 Assessment & Plan (11/24/2023 10:34 AM WILLOWER): Encouraged patient to follow low fat/low chol diet like the Mediterranean diet. Increase good fats in the diet. Increase exercise. Monitor labs as needed. Continue pravastatin 80 Assessment & Plan (08/15/2023 5:03 PM WILLOWER): Encouraged patient to follow low fat/low chol [...] Zetia Assessment & Plan (08/01/2021 9:33 PM WILLOWER): Encouraged patient to follow fat/low chol diet [...] statin Assessment & Plan (07/29/2020 7:34 AM WILLOWER): Encouraged patient to follow fat/low chol diet like the Mediterranean diet. Increase good fats in the diet. Increase exercise. Monitor labs as needed. Assessment & Plan (03/27/2020 8:02 AM CDT): Encouraged patient to continue low fat/low chol diet. Continue exercise. Increase good fats in the diet. Monitor labs as needed. Stable with zetia and pravastatin Assessment & Plan (09/26/2019 7:39 AM WILLOWER): Encouraged patient to continue low fat/low chol [...] change Assessment & Plan (08/15/2023 5:03 PM WILLOWER): Patient is legally blind. Continue with Ophthalmology Assessment & Plan (04/08/2023 8:47 PM CDT): No change Assessment & Plan (03/27/2020 8:02 AM CDT): No change Assessment & Plan (09/26/2019 7:39 AM WILLOWER): No change Assessment & Plan (05/28/2019 7:35 PM CDT): No change Cigarette smoker 05/20/2019 Assessment & Plan (08/11/2023 8:45 AM WILLOWER): Encouraged smoking cessation. Discussed 3 minutes. Reviewed options for assistance with cessation. Reviewed intermodal customer service sequela associated with smoking. Pt declines assistance at this time but may contact the office at anytime for further help as they desire. Assessment & Plan (04/08/2023 8:47 PM CDT): Encouraged smoking cessation. Discussed 3 minutes. Reviewed options for assistance with cessation. Reviewed intermodal customer service sequela associated with smoking. Pt declines assistance at this time but may contact the office at anytime for further help as they desire. Low-dose CT will be due in May. It is already scheduled Assessment & Plan (12/12/2022 9:42 PM CDT): Encouraged smoking cessation. Discussed 3 minutes. Reviewed options for assistance with cessation. Reviewed residential sequela associated with smoking. Pt declines assistance at this time but may contact the office at anytime for further help as they desire. Assessment & Plan (08/15/2022 6:44 PM WILLOWER): Encouraged smoking cessation. Discussed 3 minutes. Reviewed options for assistance with cessation. Reviewed residential sequela associated with smoking. Pt declines assistance at this time but may contact the office at anytime for further help as they desire. Assessment & Plan (05/09/2022 8:19 PM CDT): Encouraged smoking cessation. Discussed 3 minutes. Reviewed options for assistance with cessation. Reviewed residential sequela associated with smoking. Pt declines assistance at this time but may contact the office at anytime for further help as they desire. Assessment & Plan (08/01/2021 9:33 PM WILLOWER): Encouraged smoking cessation. Discussed 3 minutes. Reviewed options for assistance with cessation. Reviewed residential sequela associated with smoking. Pt declines assistance at this time but may contact the office at anytime for further help as they desire. Assessment & Plan (05/17/2021 11:41 PM CDT): Encouraged smoking cessation. Discussed 3 minutes. Reviewed options for assistance with cessation. Reviewed intermodal customer service sequela associated with smoking. Pt declines assistance at this time but may contact the office at anytime for further help as they desire. Assessment & Plan (03/12/2021 12:31 PM CDT): Encouraged smoking cessation. Discussed 3 minutes. Reviewed options for assistance with cessation. Reviewed intermodal customer service sequela associated with smoking. He is slowing down. Offered assistance. May call if decides he wants help Assessment & Plan (07/29/2020 7:34 AM WILLOWER): Encouraged smoking cessation. Discussed 3 minutes. Reviewed options for assistance with cessation. Reviewed residential sequela associated with smoking. Pt declines assistance at this time but may contact the office at anytime for further help as they desire. Assessment & Plan (03/27/2020 8:02 AM CDT): Encouraged smoking cessation. Discussed 3 minutes. Reviewed options for assistance with cessation. Reviewed intermodal customer service sequela associated with smoking. Pt declines assistance at this time but may contact the office at anytime for further help as they desire. Assessment & Plan (09/26/2019 7:39 AM WILLOWER): Encouraged smoking cessation. Discussed 3 minutes. Reviewed options for assistance with cessation. Reviewed intermodal customer service sequela associated with smoking. Pt declines assistance at this time but may contact the office at anytime for further help as they desire. Assessment & Plan (07/14/2019 7:05 PM CDT): Encouraged smoking cessation. Discussed 3 minutes. Reviewed options for assistance with cessation. Reviewed intermodal customer service sequela associated with smoking. Pt declines assistance [...] 05/20/2019 Assessment & Plan (11/19/2024 11:45 PM WILLOWER): Pre-diabetes/hyperglycemia is a precursor to Dm. Stressed [...] diabetes. Assessment & Plan (11/24/2023 10:34 AM WILLOWER): Pre-diabetes/hyperglycemia is a precursor to Dm. Stressed importance of working on diet (decrease your simple sugars and one carbohydrate with each meal) and increase you exercise to achieve weight loss and this will help prevent you from progressing to diabetes. Assessment & Plan (08/15/2023 5:03 PM WILLOWER): Pre-diabetes/hyperglycemia is a precursor to Dm. Stressed [...] diabetes. Assessment & Plan (08/01/2021 9:33 PM WILLOWER): Pre-diabetes/hyperglycemia is a precursor to Dm. Stressed [...] diabetes. Assessment & Plan (07/29/2020 7:34 AM WILLOWER): Pre-diabetes is a precursor to Dm. Stressed [...] labs Assessment & Plan (09/26/2019 10:27 PM WILLOWER): This is a significant, separately identifiable problem [...] Problem Noted Date Diagnosed Date Resolved Date BMI 25.0-25.9,adult 01/31/2025 05/01/20 25 Assessment & Plan (01/31/2025 8:25 AM CDT): Weight/BMI is in healthy range. Continue healthy lifestyle to maintain. Annual physical exam 11/19/2024 025 Assessment & Plan (11/19/2024 11:45 PM WILLOWER): Encouraged healthy lifestyle, good nutrition and exercise. Encouraged Calcium and Vitamin D and weight bearing exercise for bone health. Reviewed immunizations Reviewed age appropirate screenings. BMI 23.0-23.9, adult 06/20/2024 025 Assessment & Plan (10/30/2024 8:57 AM WILLOWER): Weight/BMI is in healthy range. Continue healthy lifestyle to maintain. Assessment & Plan (06/20/2024 7:44 AM CDT): Weight/BMI is in healthy range. Continue healthy lifestyle to maintain. Need for influenza vaccination 06/20/2024 11/19/2024 Assessment [...] 024 Assessment & Plan (11/24/2023 10:35 AM WILLOWER): Encouraged healthy lifestyle, good nutrition and exercise. Encouraged Calcium and Vitamin D and weight bearing exercise for bone health. Reviewed immunizations Reviewed age appropirate screenings. Need for influenza vaccination 08/15/2023 11/24/2023 Assessment & Plan (08/15/2023 5:04 PM WILLOWER): Flu vaccine updated in the office today BMI 22.0-22.9, adult 07/22/2023 024 Assessment & Plan (08/11/2023 8:12 AM WILLOWER): Weight/BMI is in healthy range. Continue healthy [...] 04/03/2023 Assessment & Plan (08/15/2022 6:45 PM WILLOWER): Flu updated in the office today BMI [...] test outpatient. Was referred to an outside building analyst/supervisor. Encouraged to consider seeing a [facility] group of cardiologists so all of his providers are in the same system. He is in agreement. Referral made to Dr. Eduardo as he has multiple risk factors. BMI 23.0-23.9, adult 01/21/2022 022 Assessment & Plan (01/21/2022 11:10 AM CDT): Weight/BMI is in healthy range. Continue healthy lifestyle to maintain. BMI 21.0-21.9, adult 08/01/2021 022 Assessment & Plan (08/01/2021 7:28 AM WILLOWER): Weight/BMI is in healthy range. Continue healthy lifestyle to maintain. Medicare annual wellness visit, subsequent 08/01/2021 08/15/2022 Assessment & Plan (08/01/2021 9:34 PM WILLOWER): Encouraged healthy lifestyle, good nutrition and exercise. Encouraged Calcium and Vitamin D and weight bearing exercise for bone health. Reviewed immunizations. Reviewed age appropirate screenings. Medicare Wellness Documentation is completed within the chart Fatigue 05/17/2021 05/02/2022 Assessment & Plan (08/01/2021 9:34 PM WILLOWER): Probably multifactorial. Check labs and followup to [...] 024 Assessment & Plan (11/24/2023 10:34 AM WILLOWER): Weight/BMI is in healthy range. Continue healthy [...] 05/02/2022 Assessment & Plan (07/29/2020 7:34 AM WILLOWER): Probably multifactorial. Check labs and followup to re-evaluate Need for immunization against influenza 07/29/2020 11/24/2020 Assessment & Plan (07/29/2020 7:34 AM WILLOWER): Updated in office today BMI 22.0-22.9, adult 03/27/2020 024 Assessment & Plan (05/20/2024 7:37 PM CDT): Weight/BMI is in healthy range. Continue healthy lifestyle to maintain. Assessment & Plan (07/29/2020 7:34 AM WILLOWER): Weight/BMI is in healthy range. Continue healthy [...] within the chart BMI 24.0-24.9, adult 09/26/2019 Assessment & Plan (09/26/2019 7:39 AM WILLOWER): Weight/BMI is in healthy range. Continue healthy lifestyle to maintain. Annual physical exam 09/26/2019 020 Assessment & Plan (09/26/2019 7:40 AM WILLOWER): Encouraged healthy lifestyle, good nutrition and exercise. Encouraged Calcium and Vitamin D and weight bearing exercise for bone health. Reviewed immunizations Reviewed age appropirate screenings. Influenza vaccine refused 09/26/2019 Assessment & Plan (09/26/2019 7:40 AM WILLOWER): Encouraged vaccine. Reviewed risks/ benefits. Patient refuses and accepts risks. Esophagitis determined by endoscopy 05/20/2019 05/02/2022 Gastritis 05/20/2019 05/02/2022 Essential (primary) hypertension 05/20/2019 05/20/2024 Assessment & Plan (11/24/2023 10:34 AM WILLOWER): Bp is stable/in acceptable range for any co-morbidities. Encouraged to limit sodium intake and exercise for weight control. Continue losartan 50 Assessment & Plan (08/15/2023 5:04 PM WILLOWER): Bp is stable/in acceptable range for any co-morbidities. Encouraged to limit sodium intake and exercise for weight control. Continue per Dr. Curtis Assessment & Plan (08/11/2023 8:45 AM WILLOWER): Bp is stable/in acceptable range for any [...] losartan Assessment & Plan (08/15/2022 6:44 PM WILLOWER): Bp is stable/in acceptable range for any [...] 50 Assessment & Plan (08/01/2021 9:33 PM WILLOWER): Bp is stable/in acceptable range for any [...] Losartan/HCTZ Assessment & Plan (07/29/2020 7:33 AM WILLOWER): Bp is stable/in acceptable range for any co-morbidities. Encouraged to limit sodium intake and exercise for weight control. Losartan and HCTZ Assessment & Plan (03/27/2020 8:00 AM CDT): Bp is stable/in acceptable range for any co-morbidities. Encouraged to limit sodium intake and exercise for weight control. Continue losartan/HCTZ Assessment & Plan (09/26/2019 7:38 AM WILLOWER): Bp is stable/in acceptable range for any [...] 01/21/2022 Assessment & Plan (08/01/2021 9:34 PM WILLOWER): Persistent hiccups. Has consulted with multiple providers [...] omeprazole Assessment & Plan (07/29/2020 7:32 AM WILLOWER): Continue per ENT/Pulm. He is responding to BID omeprazole. Will monitor Assessment & Plan (03/27/2020 7:59 AM CDT): Dr. Stokes started him on Pantoprazole. He hasn't noted much difference. Needs to followup to complete workup. Encouraged patient to call and make appointment. Assessment & Plan (09/26/2019 10:26 PM WILLOWER): This is a significant, separately identifiable problem that was evaluated and managed on the same day as the wellness exam Less frequent than in the past. Continue the PPI and monitor Rx sent to pharmacy. Assessment & Plan (08/24/2019 9:04 AM WILLOWER): Improving with the PPI. Continue PPI and [...] 2018 Assessment & Plan (08/24/2019 9:04 AM WILLOWER): Encouraged vaccine. Reviewed risks/ benefits. Patient refuses [...] Encounters Date Type Department Care Team Description 05/02/2025 Results Follow-Up [address] [phone] Nuris Berger PA Comprehensive metabolic panel, CBC with auto differential, TSH, Additional followed-up results: 2 05/01/2025 9:00 AM CDT Office Visit [address] [phone] Nuris Berger PA Medicare annual wellness visit, subsequent (Primary Dx); Chronic hiccups; Hyponatremia; Legally blind; Primary hypertension; Chronic obstructive pulmonary disease, unspecified COPD type (HCC); Seasonal allergic rhinitis due to pollen; Gastroesophageal reflux disease with esophagitis without hemorrhage; Mixed hyperlipidemia; Fatigue, unspecified type; Prostate cancer screening; BMI 24.0-24.9, adult 04/20/2025 Orders Only [facility] [address] [place] [phone] Britta Valdez NP 04/20/[address] [phone] Nuris Berger PA After Hours 03/30/2025 [facility] IP Outreach [facility] Accountable Care Organization [address] [place] [id number] Ayla Dugan LPN 03/26/2025 Orders Only [facility] – [place] [place] Health Information Management [address] [place] [id number] Scanning, Provider from Last 3 Months Immunizations Immunization Administration [...] GERD (gastroesophageal reflux disease) Emphysema of lung Family History Medical History Relation Name Comments Blindness Father Heart attack Father [place] Heart disease Father No Known Problems Mother Relation Name Status Comments Father Mother Social History Tobacco Use Types Packs/Day Years Used Date Smoking Tobacco: Former Cigarettes 0.8 40 0 09/1981 - 09/2021 Smokeless Tobacco: Never Tobacco Cessation:Counseling Given: Not Answered Alcohol Use Standard Drinks/Week Comments Yes 2 (1 standard drink = 0.6 oz pur e alcohol) social [employer] Utilities Answer Date Recorded In the past 12 months has [employer] electric, gas, oil, or water [employer] threatened to shut off services in your [...] 12/03/2023 How often do you attend chur or holiness services? Patient declined 12/03/2023 Do you belong to any clubs o r organizations such as congregational groups, unions, fraternal or athletic groups, or school groups? Patient declined 12/03/2023 How often do you attend meet ings of the clubs or organizations you belong to? Patient declined 12/03/2023 Are you , , di vorced, , never , or living with a partner? 12/03/2023 Overall Financial Resource Strain (CARDIA) Answe r Date Recorded How hard is it for you to pa y for the very basics like food, housing, medical care, and heating? Not hard at all 12/03/2023 PHQ-2 Answer Date Recorded PHQ-2 Total Score (If total score is 3 or more points, staff should administer the PHQ-9) 0 05/01/2025 Hunger Vital Sign Answer Date Recorded Within [...] place to sleep or slept in a skilled nursing (including now)? No 12/03/2023 AUDIT-C Answer Date Recorded Q1: How often do you have a drink containing alc ohol? 2-3 times a week 05/01/2025 Q2: How many drinks containi ng alcohol do you have on a typical day when you are drinking? 1 or 2 05/01/2025 Q3: How often do you have si x or more drinks on one occasion? Less than monthly 05/01/2025 Personal Safety Answer Date Recorded Have you ever been in or are you currently in a harmful physical or emotional relationship or is someone making you feel afraid or unsafe? Denies 08/01/2024 Sex and Gender Information Value Date Recorded Sex Assigned at Not on file Legal Sex Male 12:22 AM WILLOWER Gender Identity Not on file Sexual Orientation Not on file Occupation Industry Job Start Date Job End Date Disabled Not on file Not on file Not on file Obstetrics History Last Filed Vital Signs Vital Sign Reading Time Taken Comments Blood Pressure 124/62 05/01/2025 9:03 AM CDT Pulse 92 05/01/2025 9:03 AM CDT Temperature 37.3 C (99.2 F) 05/01/2025 9:03 AM CDT Respiratory Rate 18 12/06/2024 9:32 AM CDT Oxygen Saturation 96% 05/01/2025 9:03 AM CDT Inhaled Oxygen Concentration - - Weight 71.8 kg (158 lb 4.8 oz) 05/01/2025 9:03 A M CDT Height 172.7 cm (5' 8) 05/01/2025 9:03 AM CDT Body Mass Index 24.07 05/01/2025 9:03 AM CDT Plan of Treatment Health Maintenance Due Date Last Done Comments DTaP/Tdap/Td Vaccine (1 - Tdap) 1972 Hepatitis B Screening 1979 Pneumococcal vaccine <65 (1 of 2 - PCV) 1980 Zoster Vaccine (1 of 2) 2011 Covid-19 Vaccine (3 - 2024-2 6 season) 2025 02/09/2021, 01/05/2021 Influenza Vaccine (#1) 2025 , 07/22/2023, 07/23/2022, Additional history exists Lung Cancer Screening 10/04/2025 10/03/2024 , 06/16/2024, 06/14/2023, Additional history exists Depression Screening 05/01/2026 05/01/2025, 01/31/2025, 10/30/2024, Additional history exists Regular Well Visit/Exam 18-64 05/01/2026, 10/30/2024, 05/09/2024, Additional history exists Colon Cancer Screening-Colonoscopy 07/14/2026 07/14/2021, 01/29/2012 Prostate Cancer Screening-PSA 05/01/2027, 12/16/2022, 10/19/2018 Colon Cancer Screening-CT Colonography Discontinued 07/14/2021, 01/29/2012 Colon Cancer Screening-DNA Stool Discontinued 07/14/20 21, 01/29/2012 Colon Cancer Screening-FIT Discontinued 07/14/2021, Colon Cancer Screening-Sigmoidoscopy Discontinued 07/14/2021, 01/29/2012 Hepatitis C Screening Completed 05/03/2022 Procedures Procedure Name Priority Date/Time Associated Diagnosis Comments PSA SCREEN Routine 05/01/2025 10:18 AM CDT Prostate cancer screening VITAMIN B12 Routine 05/01/2025 10:18 AM CDT Fatigue, unspecified type TSH Routine 05/01/2025 10:18 AM CDT Fatigue, unspecified type CBC WITH AUTO DIFFERENTIAL Routine 05/01/2025 10:18 AM CDT Fatigue, unspecified type COMPREHENSIVE METABOLIC PANEL Routine 05/01/2025 10:18 AM CDT Hyponatremia SCAN - RADIOLOGY/IMAGING 03/26/2025 CT CHEST WO CONTRAST F/U LUNG SCREEN PROTOCOL Schedule Routine, Read Routine (OP Routine) 10/03/2024 9:25 AM WILLOWER Pulmonary nodules HEPATITIS PANEL, ACUTE Routine 05/03/2022 5:40 AM CDT HM COLONOSCOPY Routine 07/14/2021 from Last 3 Months or Most Recently Relevant to Health Maintenance Results * PSA screen (05/01/2025 10:18 AM CDT) PSA 1.33 < OR = 4.00 ng/mL [facility] Comment: The total PSA value from this assay system is standardized against the WHO standard. The test result will be approximately 20% lower when compared to the equimolar-standardized total PSA (Maged [place]). Comparison of serial PSA results should be interpreted with this fact in mind. This test was performed using the Siemens chemiluminescent method. Values obtained from different assay methods cannot be used interchangeably. PSA levels, regardless of value, should not be interpreted as absolute evidence of the presence or absence of disease. Blood 05/01/2025 10:1 8 AM CDT 05/01/2025 10:19 AM CDT Narrative [facility] - 05/02/2025 6:21 AM CDT FASTING:YES FASTING: YES Nuris ROBLES LAB BLOOD ORDERABLES Final Result [facility] [address] [address] * (ABNORMAL) CBC with auto differential (05/01/2025 10:18 AM CDT) Pathologist [facility] WBC 10.8 3.8 - 10.8 Thousand/u L [facility] RBC, POC 3.66(L) 4.20 - 5.80 Million/uL [facility] Hgb 10.6(L) 13.2 - 17.1 g/dL [facility] Hct 32.9(L) 38.5 - 50.0 % [facility] MCV 89.9 80.0 - 100.0 fL [facility] MCH 29.0 27.0 - 33.0 pg [facility] MCHC 32.2 32.0 - 36.0 g/dL [facility] Comment: For adults, a slight decrease in the calculated MCHC value (in the range of 30 to 32 g/dL) is most likely not clinically significant; however, it should be interpreted with caution in correlation with other red cell parameters and the patient's clinical condition. Rdw 13.5 11.0 - 15.0 % [facility] Platelets 296 140 - 400 Thousand/u L [facility] MPV 11.1 7.5 - 12.5 fL [facility] Neutrophils, abs 8,748(H) 1,500 - 7,800 cells/uL [facility] Lymphocytes, abs 1,264 850 - 3,900 cells/uL [facility] Monocyte abs 475 200 - 950 cells/uL [facility] Eosinophils, abs 270 15 - 500 cells/uL [facility] Basophils, abs 43 0 - 200 cells/uL [facility] Neutrophils 81 % [facility] Lymphocyte pct 11.7 % [facility] Monocytes 4.4 % [facility] Eosinophils 2.5 % [facility] Basophils 0.4 % [facility] Blood 05/01/2025 10:1 8 AM CDT 05/01/2025 10:19 AM CDT Narrative [facility] - 05/02/2025 6:21 AM CDT FASTING:YES FASTING: YES Nuris ROBLES LAB BLOOD ORDERABLES Final Result Performing Organization Address [facility]/ZIP Co de Phone Number [facility] [address] [place] [address] * TSH (05/01/2025 10:18 AM CDT) TSH 1.22 0.40 - 4.50 mIU/L [facility] Blood 05/01/2025 10:1 8 AM CDT 05/01/2025 10:19 AM CDT Narrative [facility] - 05/02/2025 6:21 AM CDT FASTING:YES FASTING: YES Nuris ROBLES LAB BLOOD ORDERABLES Final Result Performing Organization Address [facility] de Phone Number [facility] [address] [place] [address] * Vitamin B12 (05/01/2025 10:18 AM CDT) Vitamin B12 1,067 200 - 1,100 pg/mL [facility] Blood 05/01/2025 10:1 8 AM CDT 05/01/2025 10:19 AM CDT Narrative [facility] - 05/02/2025 6:21 AM CDT FASTING:YES FASTING: YES Nuris ROBLES LAB BLOOD ORDERABLES Final Result Performing Organization Address City/[facility] Co de Phone Number [facility] [address] [facility] [address] * (ABNORMAL) Comprehensive metabolic panel (05/01/2025 10:18 AM CDT) Pathologist [facility] Glucose 86 65 - 99 mg/dL Dmit[facility] SolorzanoAirw[facility] Solutions[facility] Comment: Fasting reference interval BUN 19 7 - 25 mg/dL [facility] Creatinine 0.80 0.70 - 1.35 mg/dL Dmitri [facility] eGFR 99 > OR = 60 mL/min/1.7 3m2 Dmitri Gross BUN/creat ratio SEE NOTE: 6 - 22 (calc) Dmitri Sol[facility] Comment: Not Reported: BUN and Creatinine are within reference range. Sodium 136 135 - 146 mmol/L Dmitri SolorzanoPorsche Gross Potassium, pl 5.1 3.5 - 5.3 mmol/L Dmitri Solor[facility]ano-[facility] Chloride 102 98 - 110 mmol/L Dmitri Solor[facility]ano-[facility] CO2 26 20 - 32 mmol/L Dmitri Sol[facility] Calcium 9.4 8.6 - 10.3 mg/dL Dmitri Sol[facility]ano-[facility] Protein, sr 6.8 6.1 - 8.1 g/dL Dmitri Solor[facility]ano-[facility] Albumin 3.9 3.6 - 5.1 g/dL Dmitri [facility] GLOBULIN 2.9 1.9 - 3.7 g/dL (calc) Dmitri [facility] Alb/glob ratio 1.3 1.0 - 2.5 (calc) Dmitri [facility] Bilirubin, total 0.2 0.2 - 1.2 mg/dL Dmitri Sol[facility] Alk phos 48 35 - 144 U/L Dmitri [facility] AST 9(L) 10 - 35 U/L Dmitri Solorzano-Porsche Gross ALT (SGPT) 7(L) 9 - 46 U/L Dmitri [employer] Blood 05/01/2025 10:1 8 AM CDT 05/01/2025 10:19 AM CDT Narrative [facility] - 05/02/2025 6:21 AM CDT FASTING:YES FASTING: YES us Nuris ROBLES LAB BLOOD ORDERABLES Final Result [facility]Advanced [facility] MexicoEricka [address] [place] [address] * SCAN - RADIOLOGY/IMAGING (03/26/2025) Anatomical Region Laterality Modality Other us Provider Scanning Edited Result - Final * CT Chest WO Contrast F/U Lung Screen Protocol (10/03/2024 9:25 AM WILLOWER) Anatomical Region Laterality Modality Chest N/A Computed Tomogra phy 10/03/2024 7:11 PM WILLOWER Narrative 10/03/2024 7:17 PM WILLOWER EXAM DESCRIPTION: CT CHEST WO CONTRAST F/U [...] Estuardo Ortiz M.D. KT T: Report ID: [id number] Reading Location: [place] [address] Tasia Hoffman MD IMG CT PROCEDURES Final Resul t * Hepatitis panel, acute (05/03/2022 5:40 AM CDT) Hep A IgM Nonreactive Nonreactive [facility] Comment: Interpretive Data: If Hep A IgM Ab is reported as Equivocal, a new sample should be drawn in two weeks for testing. Current interpretive data was last revised on 19. Hep B core IgM Nonreactive Nonreactive [facility] Comment: Interpretive Data If HepB Core IgM Ab is reported as Equivocal, a new sample should be drawn in two weeks for testing. Current interpretive data was last revised on 19. Hep C Ab Nonreactive Nonreactive [facility] Comment: Interpretive Data Nonreactive: Antibodies to [...] last revised on 2019. HepBsAg Nonreactive Nonreactive [facility] Blood 05/03/2022 5:40 AM CDT 05/03/2022 6:36 AM CDT Pamela Gongora DO LAB MICROBIOLOGY - GENERAL OR DERABLES Final Result Performing Organization Address [facility]/State/ZIP Co de Phone Number ANABELA [address] [facility] [place] [address] * (ABNORMAL) COLONOSCOPY (07/14/2021) Jame Mg MD HEALTH MAINTENANCE Edited Result - Final from Last 3 Months or Most Recently Relevant to Health Maintenance Insurance AETNA MEDICARE GOLD AETNA MEDICARE GOLD AETNA MEDICARE GOLD Advance Directives For more information, please contact: [phone] * Full Code (Latest Code Status on [...] 10:34 PM 11/16/2022 9:56 PM Care Teams Stylist Apprentice Relationship Specialty Start Date End Date Nuris Berger PA [address] [facility] [address] [place] [address] PCP - General Internal Medicine 12/28/18 Jonatan Stokes MD [address] [place] [address] Consulting Physician Otolaryngology 03/27/20 Irma Bajwa MD [address] [place] [address] Consulting Physician Neurology 05/07/22
--- OUTSIDE RECORDS SUMMARY | 2025-05-26 12:02 | XMS_ITS | Encounter Summary ---
Author Organization [facility] Healthcare Address [address] [place] [address] Care Team Providers Care Firepot Operator And Tender Name Role Phone Nuris Berger Primary Care Provider [phone] Jonatan Stokes MD Unavailable [phone] Irma Bajwa MD Unavailable [phone] Encounter Details Date Type Department Care Team (Latest Contact Info) Description 05/02/2025 Results Follow-Up [facility] Medical [facility] Family Medicine [address] [place] [address] Nuris Berger PA [address] [place] [address] Comprehensive metabolic panel, CBC with auto differential, TSH, Additional followed-up results: 2 Social History Tobacco Use Types Packs/Day Years Used Date Smoking Tobacco: Former Cigarettes 0.8 40 0 09/1981 - 09/2021 Smokeless Tobacco: Never Alcohol Use Standard Drinks/Week Comments Yes 2 (1 standard drink = 0.6 oz pur e alcohol) social [facility] Utilities Answer Date Recorded In the past 12 months has [employer] electric, gas, oil, or water company threatened [...] often do you attend chur ch or church services? Patient declined 12/03/2023 Do [...] health care facility (including now)? 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 [place] [address] PCP - General Internal Medicine 12/28/18 Jonatan Stokes MD [address] [place] [address] Consulting Physician Otolaryngology 03/27/20 Irma Bajwa MD [address] [facility] [place] [address] Consulting Physician Neurology 05/07/22 documented as of this encounter
--- OUTSIDE RECORDS SUMMARY | 2025-05-26 12:02 | XMS_ITS | Encounter Summary ---
Author Organization [facility] Healthcare Address [address] [place] [address] Care Team Providers Care Daycare Teacher Name Role Phone Nuris Berger Primary Care Provider [phone] Jonatan Stokes MD Unavailable [phone] Irma Bajwa MD Unavailable [phone] Ayla Dugan LPN Unavailable [phone] Encounter Details Date Type Department Care Team (Late st Contact Info) Description 12/26/2024 Orders Only [facility] Health Information Management [address] [place] [address] Scanning, Provider Social History Tobacco Use Types Packs/Day Years Used Date Smoking Tobacco: Former Cigarettes 0.8 40 0 09/1981 - 09/2021 Smokeless Tobacco: Never Alcohol Use Standard Drinks/Week Comments Yes 0 (1 standard drink = 0.6 oz pur e alcohol) social [facility] Utilities Answer Date Recorded In the past 12 months has [employer] electric, gas, oil, or water company threatened [...] week 12/03/2023 How often do you attend [facility] or baptism services? 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 Gender Identity Not on file Sexual Orientation [...] on filedocumented in this encounter Care Teams Daycare Teacher Relationship Specialty Start Date End Date Nuris Berger PA [address] [facility] [address] [place] [address] PCP - General Internal Medicine 12/28/18 Jonatan Stokes MD [address] [place] [address] Consulting Physician Otolaryngology 03/27/20 Irma Bajwa MD [address] [facility] [place] [address] Consulting Physician Neurology 05/07/22 Ayla Dugan LPN [address] [place] [address] Ram Press Operator 03/30/25 03/30/25 documented as of this encounter
--- OUTSIDE RECORDS SUMMARY | 2025-05-26 12:02 | XMS_ITS | Clinical Summary ---
Author Organization [facility] Address [address] [place] [address] Care Team Providers Care Exhibits Curator Name Role Phone Nuris Berger PA-C Primary Care Provider [phone] Source Comments [facility],non-owned Affiliates and Associated Physician Practices is amultiple site organization consisting of ambulatory clinics and hospital sitesin [place], [place], [place] and [place]. This disclosure is being madepursuant to the Care Everywhere program and may not contain all information available regarding this patient. Last updated 18.[facility] Allergies Active Allergy Reactions Criticality Noted Date [...] 10 mg by mouth daily. 1 Active albuterol HFA (PROVENTIL; VENTOLIN; PROAIR) 108 (90 Base) MCG/ACT inhaler Inhale 2 puffs into the lungs. 1 Active budesonide-form oterol (SYMBICORT) 160-4.5 MCG/ACT inhaler Inhale 2 puffs into the lungs 2 (two) times daily. Active vitamin D3 (CHOLECALCIFERO L) (25 MCG) 1000 UNIT capsule 1,000 Units daily. Active montelukast (SINGULAIR) 10 MG tablet 2 Active pravastatin (PRAVACHOL) 80 MG tablet 2 Active Aspirin Low Dose 81 MG tablet Take 1 (one) tablet by mouth once daily 2 Active baclofen (Lioresal) 10 MG tablet 3 Active cyanocobalamin 100 MCG tablet Take 1 (one) tablet by mouth once daily Active gabapentin (Neurontin) 300 MG capsule 2 Active losartan (Cozaar) 100 MG tablet 3 Active ondansetron (Zofran) 8 MG tablet 3 Active sodium chloride 1 GM tablet Take 1 (one) tablet by mouth 3 times daily with meals 3 Active Symbicort 80-4.5 MCG/ACT inhaler INHALE 2 PUFFS BY MOUTH TWICE DAILY. RINSE MOUTH WITH WATER AFTER USE. DO NOT SWALLOW 3 Active hydroCHLOROthia zide (Microzide) 12.5 MG capsule Take 1 (one) capsule by mouth once daily Active acetaZOLAMIDE (Diamox) 250 MG tablet Take 1 (one) tablet by mouth 4 times daily 20 tablet 3 Active ergocalciferol (Drisdol) 1.25 MG (30724 UT) capsule Take 1 (one) capsule by mouth 3 Active losartan (Cozaar) 50 MG tablet 3 Active metoclopramide (Reglan) 10 MG tablet 3 Active pantoprazole EC (Protonix) 40 MG tablet Take 1 (one) tablet by mouth 2 times daily 3 Active chlorproMAZINE (Thorazine) 25 MG tablet 4 Active ondansetron, disintegrating, (Zofran ODT) 4 MG tablet Take 1 (one) tablet by mouth 3 times daily as needed 4 Active dorzolamide-jose olol (Cosopt) 2-0.5 % ophthalmic solution Instill 1 (one) drop into left eye 3 times daily 10 mL 11 4 Active trimethoprim-po lymyxin B (Polytrim) 94146-0.1 UNIT/ML-% ophthalmic solution Instill 1 (one) drop into left eye once daily 10 mL 11 4 Active prednisoLONE acetate (Pred Forte) 1 % ophthalmic suspension Instill 1 (one) drop into left eye 3 times daily 15 mL 11 5 Active tobramycin-dexA METHasone (Tobradex) 0.3-0.1 % ophthalmic suspension Instill 1 (one) drop into left eye at bedtime 10 mL 11 5 Active tobramycin-dexA METHasone (Tobradex) 0.3-0.1 % ophthalmic suspension Instill 1 (one) drop into left eye at bedtime 10 mL 11 4 05/18/20 25 Discontinu ed(Reorder ) Active Problems Problem Noted Date Diagnosed Date [...] polyp 05/20/2019 Overview (12/24/2020): Colonoscopy 01/29/2012 at [facility]--->2021 Last Assessment & Plan: Recvd colonoscopy and [...] Encounters Date Type Department Care Team Description 05/18/2025 Refill [facility] - Ophthalmology [address] [place] [phone] Louis Hansen MD MEDICATION REFILL 04/18/2025 9:00 AM CDT Office Visit [facility] - Ophthalmology [address] [place] [phone] Louis Hansen MD H/O cornea transplant (Primary Dx); Aniridia 04/18/2025 Travel 04/03/2025 Refill [facility] - Ophthalmology [address] [place] [phone] Louis Hansen MD MEDICATION REFILL from Last 3 Months Immunizations Immunization Administration Dates Next Due Sentiment primary monoval ent 12+ yr 0.3mL Purple [...] Comments Blood Pressure 128/70 08/26/2023 12:43 PM ADMINISTRATIVE HEARING OFFICER Pulse 65 08/26/2023 12:43 PM ADMINISTRATIVE HEARING OFFICER Temperature 35.9 C (96.7 F) 08/26/2023 12:34 PM ADMINISTRATIVE HEARING OFFICER Respiratory Rate 14 08/26/2023 12:43 PM ADMINISTRATIVE HEARING OFFICER Oxygen Saturation 98% 08/26/2023 12:34 PM ADMINISTRATIVE HEARING OFFICER Inhaled Oxygen Concentration - - Weight 64.9 kg (143 lb) 08/26/2023 9:01 AM ADMINISTRATIVE HEARING OFFICER Height 172.7 cm (5' 8) 08/26/2023 9:01 AM ADMINISTRATIVE HEARING OFFICER Body Mass Index 21.74 08/26/2023 9:01 AM ADMINISTRATIVE HEARING OFFICER Plan of Treatment Upcoming Encounters Date Type Department Care Team (Late st Contact Info) Description 08/07/2025 8:40 AM ADMINISTRATIVE HEARING OFFICER [facility] [address] [place] [phone] Tyrel Velez MD [address] [place] [phone] 10/17/2025 9:00 AM ADMINISTRATIVE HEARING OFFICER [facility] [address] [place] [phone] Louis Hansen MD [address] [place] [address] [place] [phone] Health Maintenance Due Date Last Done Comments [...] - Risk 60-74 years 1-dose series) 2021 DEPRESSION SCREENING 09/20/2024 MEDICARE AWV CALENDAR YEAR 2024 COVID-19 VACCINE (3 - 2024- season) 2025 02/09/2021, 01/05/2021 INFLUENZA VACCINE (#1) 2025 , 07/22/2023, 07/23/2022, Additional history exists LUNG CANCER SCREENING 06/16/2025 06/16/2024 , 06/14/2023, 06/14/2023, Additional history exists HEPATITIS C SCREENING Completed 05/03/2022 HEPATITIS B VACCINE Aged Out No longe [...] this topic Medical Devices Implanted Type Area Campaign Assistant Device Identifier Shelf Expiration Date Model / Serial / Lot Drain Glcm Thk.9mm Blnt Tpr [facility] Flxb - [id number] Implanted:Qty: 1 on 05/04/2018 by Tyrel Velez MD at [facility] Left: Eye [employer] 03/15/2020 7 / [id number] / [id number] Graft Tissue Ttplst Sclr .8x.5cm Lopro - [id number] Implanted:Qty: 1 on 05/04/2018 by Tyrel Velez MD at [facility] Left: Eye [employer] 01/17/2023 [id number] / [id number] / [id number] Impl Opth 250sq Mm Brvldt Magaly 1 Qdrnt - [id number] Implanted:Qty: 1 on 06/16/2023 by Tyrel Velez MD at [facility] Left: Eye [employer] 01/09/2024 [id number] / [id number] / Graft Tissue Ttpl Ioptch Sclr .8x.5cm - [id number] Implanted:Qty: 1 on 06/16/2023 by Tyrel Velez MD at [facility] Left: Eye [employer] 09/19/2027 [id number] / [id number] / Graft Tissue Ttpl Ioptch Sclr .8x.5cm - [id number] Implanted:Qty: 1 on 06/16/2023 by Tyrel Velez MD at [facility] Left: Eye [employer] 09/19/2027 [id number] / [id number] / J Luis Cornea - [id number] Implanted:Qty: 1 on 08/26/2023 by Louis Hansen MD at [facility] Left: Eye [employer] 09/05/2023 [id number] / [id number] / [id number] Description:Product Numb:[id number] EXP:09-05-2023 DIN:[id number] Insurance AETNA MEDICARE ADV AETNA Advance Directives * Full Code (Latest Code Status on File) Date Activated Date Inactivated Comments 05/04/2018 11:35 AM 05/04/2018 1:21 PM * Full Code Date Activated Date Inactivated Comments 05/04/2018 7:43 AM 05/04/2018 11:35 AM Care Teams Exhibits Curator Relationship Specialty Start Date End Date Nuris Berger PA-C PCP - General 02/13/20
--- OUTSIDE RECORDS SUMMARY | 2025-05-26 12:02 | XMS_ITS | Encounter Summary ---
Author Organization [facility] Healthcare Address [address] [place] [address] Care Team Providers Care Salvager Name Role Phone Nuris Berger Primary Care Provider [phone] Jonatan Stokes MD Unavailable [phone] Irma Bajwa MD Unavailable [phone] Ayla Dugan LPN Unavailable [phone] Encounter Details Date Type Department Care Team (Late st Contact Info) Description 03/26/2025 Orders Only [facility] [place] [address] [place] [id number] Scanning, Provider Social History Tobacco Use Types Packs/Day Years Used Date Smoking Tobacco: Former Cigarettes 0.8 40 0 09/1981 - 09/2021 Smokeless Tobacco: Never Alcohol Use Standard Drinks/Week Comments Yes 0 (1 standard drink = 0.6 oz pur e alcohol) social [facility] Utilities Answer Date Recorded In the past 12 months has [employer] electric, gas, oil, or water company threatened [...] week 12/03/2023 How often do you attend [facility] or anabaptism services? Patient declined 12/03/2023 Do you belong to any clubs o r organizations such as shinto groups, unions, fraternal or athletic groups, or [...] a skilled nursing (including now)? No 12/03/2023 Personal Safety Answer Date Recorded Have you ever been in or are you currently in a harmful physical or emotional relationship or is someone making you feel afraid or unsafe? 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 Gender Identity Not on file Sexual Orientation Not on file Occupation Industry Job Start Date Job End Date Disabled Not on file Not on file Not on file documented as of this encounter Plan of Treatment Not on file documented as of this encounter Procedures Procedure Name Priority Date/Time Associated Diagnosis Comments SCAN - RADIOLOGY/IMAGING 03/26/2025 documented in this encounter Results * SCAN - RADIOLOGY/IMAGING (03/26/2025) Anatomical Region Laterality Modality Other us Provider Scanning Edited Result - Final documented in this encounter Visit Diagnoses Not on filedocumented in this encounter Care Teams Salvager Relationship Specialty Start Date End Date Nuris Berger PA [address] [facility] [address] [place] [address] PCP - General Internal Medicine 12/28/18 Jonatan Stokes MD [address] DEPT [place] [address] Consulting Physician Otolaryngology 03/27/20 Irma Bajwa MD [address] [facility] [place] [address] Consulting Physician Neurology 05/07/22 Ayla Dugan LPN [address] [place] [address] Welder Fitter Apprentice 03/30/25 03/30/25 documented as of this encounter
[2025-05-26 12:14] VITALS: BP 145/75; PULSE 90; RESP 16; TEMP 37.1; O2SAT 97
--- NOTE | 2025-05-26 14:07 | ECG_ITS ---
Test Date: 2025-05-26 14:12:[address] [place] Rate: 83 P: 37 RI: 144 QRS: 18 QRSD: 90 T: 36 QT: 372 QTc: 439 Interpretive Statements SINUS RHYTHM Compared to ECG 02/02/2025 22:58:10 No significant changes Electronically Signed On 05-27-2025 15:46:56 CDT by Heron Moreno M.D.
[2025-05-26 14:21] LABS: Hematocrit 27.5 % (42.0-52.0); Hemoglobin 9.5 g/dL (14.0-18.0); Immature Granulocyte Percent A 0.5 % (0-0.5); Lymphocytes Absolute Auto 1.06 K/mm3 (0.9-3.2); Mean Corpuscular HGB Conc 34.5 g/dl (32-36); Mean Corpuscular Hemoglobin 28.5 pg (26-34); Mean Corpuscular Volume 82.6 fl (80-100); Nucleated Red Blood Cells Absolute Auto 0.000 K/mm3 (0.0-0.012); Nucleated Red Blood Cells Perc 0.0 % (0.0-0.2); Platelet Count Result 214 k/mm3 (150-375); Red Blood Count 3.33 M/mm3 (4.6-6.20); White Blood Count 17.5 K/mm3 (4.5-10.0)
[2025-05-26 14:34] LABS: Alanine Aminotransferase 10 U/L (6-50); Albumin Level 4.0 g/dL (3.5-5.1); Alkaline Phosphatase 68 U/L (38-126); Anion Gap 10 mmol/L (4-12); Aspartate Amino Transferase 20 U/L (17-59); Bilirubin,Total 0.6 mg/dL (0.2-1.3); Blood Urea Nitrogen 6 mg/dL (9-20); Calcium 9.1 mg/dL (8.4-10.2); Carbon Dioxide 22 mmol/L (22-30); Chloride 84 mmol/L (98-107); Estimated CRCL calculation 84 ml/min; Estimated Glomerular Filt Rate > 60; Glucose 105 mg/dL (65-110); Potassium 4.2 mmol/L (3.4-5.0); Sodium 116 mmol/L (137-145); Total Protein 7.1 g/dL (6.3-8.2)
[2025-05-26 14:43] LABS: Add Urine Microscopic? YES; Appearance Urine Cloudy (Clear); Glucose Urine UA Negative (Negative); Leukocyte Esterase Ur Negative LEU/UL (Negative); Need Manual Microscopic Reviewed; Nitrate Urine Negative (Negative); Non Pathogenic Casts 0-2; Specific Grav Ur 1.002 (1.001-1.035)
--- NOTE | 2025-05-26 14:45 | ED.WEAKNESS ---
HPI - Weakness General Chief complaint: Weakness <Anna Guillen PA-C - Last Filed: 05/26/25 16:55> Stated complaint: nausea, weakness <Anna Guillen PA-C - Last Filed: 05/26/25 16:55> Time Seen by Provider: 05/26/25 14:07 <Anna Guillen PA-C - Last Filed: 05/26/25 16:55> Source: patient <GONZALO Meeks Last Filed: 05/26/25 16:55> Mode of arrival: ambulatory <Anna Guillen PA-C - Last Filed: 05/26/25 16:55> Limitations: no limitations <Anna Guillen PA-C - Last Filed: 05/26/25 16:55> History of Present Illness HPI Narrative: This is a 64-year-old male that presents to the emergency department for generalized weakness. Reports lightheadedness, headaches. Patient with history of chronic hiccups, he has been drinking a lot of water the last couple of days to try to get rid of them. No other localizing symptoms. <Anna Guillen PA-C - Last Filed: 05/26/25 16:55> Related Data Home medications: Home Medications ?Medication ?Instructions ?Recorded ?Confirmed ?Last Taken ?Type losartan 50 mg tablet 50 mg PO DAILY 03/02/21 05/26/25 01/10/25 08:00 History 50 mg montelukast 10 mg tablet 10 mg PO HS 03/02/21 05/26/25 01/10/25 08:00 History 10 mg pravastatin 80 mg tablet 80 mg PO DAILY 03/02/21 05/26/25 01/09/25 19:00 History 80 mg cholecalciferol (vitamin D3) 25 25 mcg PO DAILY 03/29/21 05/26/25 01/10/25 08:00 History mcg (1,000 unit) capsule (Vitamin 25 mcg D3) cyanocobalamin (vitamin B-12) 100 2,000 mcg PO DAILY 03/29/21 05/26/25 01/10/25 08:00 History mcg tablet 2,000 mcg dorzolamide 22.3 mg-timolol 6.8 1 drp LEFT EYE TID 06/29/24 05/26/25 01/10/25 12:00 History mg/mL eye drops 1 drp budesonide-formoterol HFA 80 2 puff inhalation Q12H 12/26/24 05/26/25 12/26/24 08:00 History mcg-4.5 mcg/actuation aerosol 2 puff inhaler gabapentin 300 mg capsule 300 mg PO DAILY 12/26/24 05/26/25 01/10/25 08:00 History 300 mg aspirin 81 mg tablet,delayed 81 mg PO DAILY 03/25/25 05/26/25 Unknown History release (Adult Aspirin Regimen) ibuprofen 200 mg tablet (Advil) 600 mg PO BID 03/25/25 05/26/25 Unknown History baclofen 5 mg tablet 5 mg PO BID 04/24/25 05/26/25 Unknown History <Anna Guillen PA-C - Last Filed: 05/26/25 16:55> Allergies/Adverse reactions: Allergies Allergy/AdvReac Type Severity Reaction Status Date / Time No Known Allergies Allergy Verified 05/26/25 16:14 <Anna Guillen PA-C - Last Filed: 05/26/25 16:55> Review of Systems Review of Systems: All systems reviewed & are unremarkable except as noted in HPI and below <Anna Guillen PA-C - Last Filed: 05/26/25 16:55> [facility] Past Medical History Medical History: Medical History Psychogenic polydipsia Other osteonecrosis, right femur Other osteonecrosis, left femur Hiatal hernia Adenomatous colon polyp Asthma-COPD overlap syndrome Erosive esophagitis Anemia of chronic disease Chronic hiccups Hyponatremia Tobacco abuse Normocytic anemia Glaucoma Legally blind. Hyperlipidemia Hypertension <Anna Guillen PA-C - Last Filed: 05/26/25 16:55> Surgical History Surgical History: Surgical History History of enucleation of eye Right, secondary to recurrent infection. <Anna Guillen PA-C - Last Filed: 05/26/25 16:55> Family History Family History: Family History Grandparent Acute myocardial infarction Mother Acute myocardial infarction Skin cancer Father Acute myocardial infarction Sibling Cancer <Anna Guillen PA-C - Last Filed: 05/26/25 16:55> Social History Social History: Social History Social History: Surrogate decision maker: Svitlana Hines, . Code status: Full code. Smoking packs per day: 1.5 Smoking cigarettes per day: 30.0 Years smoked: 50 Smoking pack-years: 75.00 Smoking status: Former smoker Tobacco type: cigarettes Smoking end date: 09/20/19 Alcohol intake: current Drinks per week: 3 Substance use: never Substance use type: does not use Do You Feel Safe in your Home?: Yes Lack of Transportation: No Lack of Food: Never True Current Housing: I Have Housing Concerned About Future Housing: No Difficulty Paying Gas/Electric Bills: No Difficulty Paying for Meds: No Currently Unemployed: No Education: Decline to Answer Difficulty w/ Childcare or Family Care: No Living arrangements: with family Additional living arrangements comments: The patient lives with his of 43 years in [place]. He and his had 4 children 1 of which at . His remaining children are healthy. 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 Spiritual care concerns: No <Anna Guillen PA-C - Last Filed: 05/26/25 16:55> Exam Narrative: GENERAL: Well-appearing, well-nourished, and in no acute distress. HEAD: Normocephalic, atraumatic. ENT: Nares clear, no rhinorrhea or epistaxis. Mucous membranes moist. Oropharynx without tonsillar hypertrophy exudate or other lesions. NECK: Supple. No adenopathy or masses. CHEST: Clear to auscultation. No respiratory distress. No wheezes rales or rhonchi HEART: Regular rate and rhythm. No murmur heard. Normal peripheral pulses. ABDOMEN: Soft, nontender, nondistended, normal active bowel sounds. EXTREMITIES: Normal range of motion. No edema. SKIN: Warm, dry, no rash. NEURO: No focal deficits. Alert and oriented x3. PSYCH: Normal mood and affect <Anna Guillen PA-C - Last Filed: 05/26/25 16:55> Course Course Emergency Course: patient updated on his workup and recommendation for admission <Anna Guillen PA-C - Last Filed: 05/26/25 16:55> FELT CEMENTER/PA Physician Supervision PA and I discussed this patient whom I am familiar with from previous ED visit for similar presentation. I was therefore available for consultation while patient was in the ED and aware he is being admitted but did not personally evaluate him. <Luzma Duckworth MD - Last Filed: 05/27/25 15:08> Consultations Consultation #1: Spoke with hospitalist about patient and workup who accepts admission <Anna Guillen PA-C - Last Filed: 05/26/25 16:55> Date: 05/26/25 <Anna Guillen PA-C - Last Filed: 05/26/25 16:55> Vital Signs Vital signs: Vital Signs Temperature 98.7 F 05/26/25 12:14 Pulse Rate 90 05/26/25 12:14 Respiratory Rate 16 05/26/25 12:14 Blood Pressure 145/75 H 05/26/25 12:14 Pulse Oximetry 97 05/26/25 12:14 Oxygen Delivery Room Air 05/26/25 12:14 Temperature 97.3 F L 05/27/25 12:00 Pulse Rate 77 05/27/25 12:00 Respiratory Rate 18 05/27/25 12:00 Blood Pressure 108/56 L 05/27/25 12:00 Pulse Oximetry 97 05/27/25 12:00 Oxygen Delivery Room Air 05/27/25 08:00 <Anna Guillen PA-C - Last Filed: 05/26/25 16:55> Vital Signs Temperature 98.7 F 05/26/25 12:14 Pulse Rate 90 05/26/25 12:14 Respiratory Rate 16 05/26/25 12:14 Blood Pressure 145/75 H 05/26/25 12:14 Pulse Oximetry 97 05/26/25 12:14 Oxygen Delivery Room Air 05/26/25 12:14 Temperature 97.3 F L 05/27/25 12:00 Pulse Rate 77 05/27/25 12:00 Respiratory Rate 18 05/27/25 12:00 Blood Pressure 108/56 L 05/27/25 12:00 Pulse Oximetry 97 05/27/25 12:00 Oxygen Delivery Room Air 05/27/25 08:00 <Luzma Duckworth MD - Last Filed: 05/27/25 15:08> MDM - Weakness MDM Narrative Medical decision making narrative: Patient presents the emergency department for generalized weakness, lightheadedness. He is afebrile and nontoxic appearing. His vitals are stable. CBC with leukocytosis to 17.5. Metabolic panel with hyponatremia with sodium of 116. This was repeated and was 123 without intervention. Patient reports his hiccups have been bad the last couple of days and he has been drinking a lot a water. Urine without evidence of infection. Chest x-ray showing possible pneumonia. Blood cultures obtained, patient started on IV antibiotics. Patient updated on his workup and recommendation for admission. Spoke with hospitalist about patient and workup who accepts admission <Anna Guillen PA-C - Last Filed: 05/26/25 16:55> Differential Diagnosis Differential diagnosis: Likely sepsis, dehydration and other (Electrolyte derangement, pneumonia) <Anna Guillen PA-C - Last Filed: 05/26/25 16:55> Lab Data Attestation: I reviewed the patient's lab results. <Anna Guillen PA-C - Last Filed: 05/26/25 16:55> Result diagrams: 05/26/25 14:14 05/27/25 12:50 <Anna Guillen PA-C - Last Filed: 05/26/25 16:55> Labs: Lab Results 05/26/25 05/26/25 05/27/25 Range/Units 14:14 16:15 04:52 WBC 17.5 H (4.5-10.0) K/mm3 RBC 3.33 L (4.6-6.20) M/mm3 Hgb 9.5 L (14.0-18.0) g/dL Hct 27.5 L (42.0-52.0) % MCV 82.6 (80-100) fl MCH 28.5 (26-34) pg MCHC 34.5 (32-36) g/dl RDW 14.0 (11.5-14.5) % Plt Count 214 (150-375) k/mm3 MPV 11.7 H (7.4-10.4) fl Immature Gran % (Auto) 0.5 (0-0.5) % Neut % (Auto) 90.6 H (45.5-73.1) % Lymph % (Auto) 6.0 L (18.3-44.2) % [place] % (Auto) 2.5 L (2.6-8.5) % Eos % (Auto) 0.2 (0-4.4) % Baso % (Auto) 0.2 (0.2-1.2) % Lymph # (Auto) 1.06 (0.9-3.2) K/mm3 [place] # (Auto) 0.4 (0.1-0.6) K/mm3 Eos # (Auto) 0.0 (0-0.3) K/mm3 Baso # (Auto) 0.0 (0.0-0.1) K/mm3 Abs Immat Gran (auto) 0.09 H (0.00-0.031) K/mm3 Absolute Neuts (auto) 15.9 H (1.3-6.7) K/mm3 Absolute Nucleated RBC 0.000 (0.0-0.012) K/mm3 Nucleated RBC % 0.0 (0.0-0.2) % Sodium 116 L* 123 L 133 L (137-145) mmol/L Potassium 4.2 4.3 (3.4-5.0) mmol/L Chloride 84 L 99 (98-107) mmol/L Carbon Dioxide 22 26 (22-30) mmol/L Anion Gap 10 8 (4-12) mmol/L BUN 6 L D 8 L (9-20) mg/dL Creatinine 0.73 0.95 (0.7-1.3) mg/dL Estim Creat Clear Calc 84 66 ml/min Estimated GFR > 60 > 60 (59 - ) Glucose 105 98 (65-110) mg/dL Calcium 9.1 9.7 (8.4-10.2) mg/dL Total Bilirubin 0.6 (0.2-1.3) mg/dL AST 20 (17-59) U/L ALT 10 (6-50) U/L Alkaline Phosphatase 68 (38-126) U/L Total Protein 7.1 (6.3-8.2) g/dL Albumin 4.0 (3.5-5.1) g/dL Urine Color Yellow (Yellow) Urine Appearance Cloudy H (Clear) Urine pH 7.0 (5.0-9.0) Ur Specific [place] 1.002 (1.001-1.035) Urine Protein Negative (Negative) mg/dL Urine Glucose (UA) Negative (Negative) mg/dL Urine Ketones Negative (Negative) mg/dL Ur Blood (Man) Negative (Negative) Urine Nitrate Negative (Negative) Urine Bilirubin Negative (Negative) Urine Urobilinogen 0.2 (<2.0) mg/dL Add Ur Microanalysis Reviewed Leukocyte Esterase Rfl Negative (Negative) BENTLEY/UL Urine RBC 0-2 (0-2) /hpf Urine WBC 0-5 (0-3) /hpf Ur Squamous Epith Cells None seen (Few) /hpf Urine Bacteria None seen /hpf Urine Casts 0-2 <Anna Guillen PA-C - Last Filed: 05/26/25 16:55> Lab Results 05/26/25 05/26/25 05/27/25 Range/Units 14:14 16:15 04:52 WBC 17.5 H (4.5-10.0) K/mm3 RBC 3.33 L (4.6-6.20) M/mm3 Hgb 9.5 L (14.0-18.0) g/dL Hct 27.5 L (42.0-52.0) % MCV 82.6 (80-100) fl MCH 28.5 (26-34) pg MCHC 34.5 (32-36) g/dl RDW 14.0 (11.5-14.5) % Plt Count 214 (150-375) k/mm3 MPV 11.7 H (7.4-10.4) fl Immature Gran % (Auto) 0.5 (0-0.5) % Neut % (Auto) 90.6 H (45.5-73.1) % Lymph % (Auto) 6.0 L (18.3-44.2) % [place] % (Auto) 2.5 L (2.6-8.5) % Eos % (Auto) 0.2 (0-4.4) % Baso % (Auto) 0.2 (0.2-1.2) % Lymph # (Auto) 1.06 (0.9-3.2) K/mm3 [place] # (Auto) 0.4 (0.1-0.6) K/mm3 Eos # (Auto) 0.0 (0-0.3) K/mm3 Baso # (Auto) 0.0 (0.0-0.1) K/mm3 Abs Immat Gran (auto) 0.09 H (0.00-0.031) K/mm3 Absolute Neuts (auto) 15.9 H (1.3-6.7) K/mm3 Absolute Nucleated RBC 0.000 (0.0-0.012) K/mm3 Nucleated RBC % 0.0 (0.0-0.2) % Sodium 116 L* 123 L 133 L (137-145) mmol/L Potassium 4.2 4.3 (3.4-5.0) mmol/L Chloride 84 L 99 (98-107) mmol/L Carbon Dioxide 22 26 (22-30) mmol/L Anion Gap 10 8 (4-12) mmol/L BUN 6 L D 8 L (9-20) mg/dL Creatinine 0.73 0.95 (0.7-1.3) mg/dL Estim Creat Clear Calc 84 66 ml/min Estimated GFR > 60 > 60 (59 - ) Glucose 105 98 (65-110) mg/dL Calcium 9.1 9.7 (8.4-10.2) mg/dL Total Bilirubin 0.6 (0.2-1.3) mg/dL AST 20 (17-59) U/L ALT 10 (6-50) U/L Alkaline Phosphatase 68 (38-126) U/L Total Protein 7.1 (6.3-8.2) g/dL Albumin 4.0 (3.5-5.1) g/dL Urine Color Yellow (Yellow) Urine Appearance Cloudy H (Clear) Urine pH 7.0 (5.0-9.0) Ur Specific [place] 1.002 (1.001-1.035) Urine Protein Negative (Negative) mg/dL Urine Glucose (UA) Negative (Negative) mg/dL Urine Ketones Negative (Negative) mg/dL Ur Blood (Man) Negative (Negative) Urine Nitrate Negative (Negative) Urine Bilirubin Negative (Negative) Urine Urobilinogen 0.2 (<2.0) mg/dL Add Ur Microanalysis Reviewed Leukocyte Esterase Rfl Negative (Negative) BENTLEY/UL Urine RBC 0-2 (0-2) /hpf Urine WBC 0-5 (0-3) /hpf Ur Squamous Epith Cells None seen (Few) /hpf Urine Bacteria None seen /hpf Urine Casts 0-2 <Luzma Duckworth MD - Last Filed: 05/27/25 15:08> Imaging Data Radiologist's impression: ITS Impressions Chest X-Ray 05/26/25 15:10 IMPRESSION: 1. Mild increased initial pattern in the left mid to lower lung zone which could represent asymmetric mild pulmonary edema or pneumonia. <Anna Guillen PA-C - Last Filed: 05/26/25 16:55> ECG Data EKG #1: ECG completion date: 05/26/25 <Anna Guillen PA-C - Last Filed: 05/26/25 16:55> EKG Interpretation: normal rate, sinus rhythm, no ST changes and normal QT <Anna Guillen PA-C - Last Filed: 05/26/25 16:55> Critical Care Time Critical Care Time Critical Care Time: No <Anna Guillen PA-C - Last Filed: 05/26/25 16:55> Discharge Plan Discharge Clinical Impression: Hyponatremia Pneumonia Qualifiers: Pneumonia type: due to unspecified organism Laterality: left Lung location: lower lobe of lung Qualified Code(s): J18.9 - Pneumonia, unspecified organism <Anna Guillen PA-C - Last Filed: 05/26/25 16:55> Patient Disposition: Still a Patient <Anna Guillen PA-C - Last Filed: 05/26/25 16:55> Condition: Stable <GONZALO Meeks Last Filed: 05/26/25 16:55>
[2025-05-26 16:13] VITALS: BP 160/80; PULSE 85; RESP 14; O2SAT 97
[2025-05-26] MEDS: cefTRIAXone 1 GM in SODIUM CHLORIDE 0.9% IV 50 ML 100 ML IVPB (16:14)
[2025-05-26 16:26] LABS: Sodium 123 mmol/L (137-145)
[2025-05-26] MEDS: AZITHROMYCIN IV 500 MG in SODIUM CHLORIDE 0.9% IV 250 ML IVPB (16:55)
[2025-05-26 17:50] VITALS: BMI 24.3
--- NOTE | 2025-05-26 18:03 | P.HP_ITS ---
H&P: HPI History of Present Illness Date/Time: 05/26/25 18:03 Chief Complaint: Weakness Narrative: 64-year-old male with chronic hiccups, hyponatremia, COPD hypertension lipidemia presents the hospital with weakness. Patient states that he chronically drinks a lot a water trying to get rid of his hiccups. Patient is hard of hearing and blind. Patient having continuous hiccups during assessment making it hard for him to talk. Patient denies fevers chills nausea or vomiting, shortness of breath. His only complaint is the hiccups. Lab work shows leukocytosis at 17.5, hemoglobin of 9.5, sodium of 116 with recheck being 123, chloride of 89, BUN of 6 UA is cloudy negative for infection. Chest x-ray shows mild increase initial pattern in the low of left middle lower lung which could be pulmonary edema or pneumonia. EKG shows sinus rhythm. Review of Systems Review of Systems: 12 systems were reviewed and are negativ e except for as per HPI. [facility]LY [facility] Past Medical History Medical History (Updated 05/26/25 @ 18:24 by Geraldine Hamm, SOCIAL STAFF WORKER) Adenomatous colon polyp Asthma-COPD overlap syndrome Hiatal hernia Other osteonecrosis, left femur Other osteonecrosis, right femur Psychogenic polydipsia Erosive esophagitis Anemia of chronic disease Chronic hiccups Hyponatremia Tobacco abuse Normocytic anemia Glaucoma Legally blind. Hyperlipidemia Hypertension Surgical History Surgical History History of enucleation of eye Right, secondary to recurrent infection. Family History Family History Grandparent Acute myocardial infarction Mother Acute myocardial infarction Skin cancer Father Acute myocardial infarction Sibling Cancer Social History Social History Social History: Surrogate decision maker: Svitlana Hines, . Code status: Full code. Smoking packs per day: 1.5 Smoking cigarettes per day: 30.0 Years smoked: 50 Smoking pack-years: 75.00 Smoking status: Former smoker Tobacco type: cigarettes Smoking end date: 09/20/19 Alcohol intake: current Drinks per week: 3 Substance use: never Substance use type: does not use Do You Feel Safe in your Home?: Yes Lack of Transportation: No Lack of Food: Never True Current Housing: I Have Housing Concerned About Future Housing: No Difficulty Paying Gas/Electric Bills: No Difficulty Paying for Meds: No Currently Unemployed: No Education: Decline to Answer Difficulty w/ Childcare or Family Care: No Living arrangements: with family Additional living arrangements comments: The patient lives with his of 43 years in [place]. He and his had 4 children 1 of which at . His remaining children are healthy. 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 Spiritual care concerns: No Meds Home Medications and Allergies Home Medications ?Medication ?Instructions ?Recorded ?Confirmed ?Type losartan 50 mg tablet 50 mg PO DAILY 03/02/2103/14 History montelukast 10 mg tablet 10 mg PO HS 03/02/21 5 History pravastatin 80 mg tablet 80 mg PO DAILY 03/02/2103/14 History cholecalciferol (vitamin D3) 25 25 mcg PO DAILY 05/26/25 History mcg (1,000 unit) capsule (Vitamin D3) cyanocobalamin (vitamin B-12) 100 2,000 mcg PO DAILY 0 03/29/21 05/26/25 History mcg tablet albuterol sulfate 90 mcg/actuation 1 inh inhalation QI D PRN shortness 05/02/21 05/26/25 Rx aerosol inhaler of breath or wheezing #8.5 g jason dorzolamide 22.3 mg-timolol 6.8 1 drp LEFT EYE TID 07/1305/26/25 History mg/mL eye drops budesonide-formoterol HFA 80 2 puff inhalation Q12H 05/26/25 History mcg-4.5 mcg/actuation aerosol inhaler gabapentin 300 mg capsule 300 mg PO DAILY 12/26/2403/14 History pantoprazole 40 mg tablet,delayed 40 mg PO BID 30 days #60 tabs 12/27/24 05/26/25 Rx release chlorpromazine 25 mg tablet 25 mg PO Q6H PRN Hiccups # 30 tabs 01/11/25 05/26/25 Rx aspirin 81 mg tablet,delayed 81 mg PO DAILY 03/25/25 0 05/26/25 History release (Adult Aspirin Regimen) ibuprofen 200 mg tablet (Advil) 600 mg PO BID 03/25/25 05/26/25 History baclofen 5 mg tablet 5 mg PO BID 04/24/25 5 History Allergies Allergy/AdvReac Type Severity Reaction Status Date / Time No Known Allergies Allergy Verified 05/26/25 16:14 Vital Signs Vital Signs - 24 hr 05/26/25 12:14 05/26/25 16:13 Temperature 98.7 F Pulse Rate 90 85 Respiratory Rate 16 14 Blood Pressure 145/75 H 160/80 H Pulse Oximetry 97 97 Oxygen Delivery Room Air Exam Narrative: General: Continuous hiccups, malnourished HEENT: normocephalic, atraumatic. Mucous membranes moist. Blind. Neck supple without JVD, lymphadenopathy, or bruit. Respiratory: Course Cardiovascular: Regular rate and rhythm, normal S1-S2 upon ascultation. No murmurs, rubs, or clicks. PMI is nondisplaced, capillary refill less than 3 second. Abdomen: Soft, round, no pulsatile masses, nondistended and nontender. No rebound, no guarding. No CVA tenderness, no hepatosplenomegaly. Bowel sounds present to all four quadrants. No high pitch or tinkling sounds, resonant to percussion. Extremities: No cyanosis, clubbing, or edema present. Pulses are palpable 2/2. Active ROM to all four extremities. Neuro: Alert and orientated x 4. Blind Cranial nerves 2-12 intact without focal deficit. Skin: Warm, dry, and intact, without rash, erythema, or lesion. Psych: pleasant, cooperative, normal speech, normal affect, no hallucinations, no dysarthia H&P: Results Labs Labs: Short CBC 05/26/25 Range/Units 14:14 WBC 17.5 H (4.5-10.0) K/mm3 Hgb 9.5 L (14.0-18.0) g/dL Hct 27.5 L (42.0-52.0) % Plt Count 214 (150-375) k/mm3 [facility] 05/26/25 05/26/25 14:14 16:15 Sodium 116 L* 123 L Potassium 4.2 Chloride 84 L Carbon Dioxide 22 BUN 6 L D Creatinine 0.73 Glucose 105 Calcium 9.1 Liver Function 05/26/25 Range/Units 14:14 Total Bilirubin 0.6 (0.2-1.3) mg/dL AST 20 (17-59) U/L ALT 10 (6-50) U/L Alkaline Phosphatase 68 (38-126) U/L Albumin 4.0 (3.5-5.1) g/dL Urine 05/26/25 Range/Units 14:14 Urine Color Yellow (Yellow) Urine Appearance Cloudy H (Clear) Urine pH 7.0 (5.0-9.0) Ur Specific Neville 1.002 (1.001-1.035) Urine Protein Negative (Negative) mg/dL Urine Glucose (UA) Negative (Negative) mg/dL Assessment and Plan Assessment and plan (1) Chronic hiccups: Code(s): R06.6 - Hiccough Status: Chronic Assessment and Plan: Increased baclofen Increased gabapentin Scheduled Thorazine (2) Psychogenic polydipsia: Code(s): R63.1 - Polydipsia; F54 - Psychological and behavioral factors associated with disorders or diseases classified elsewhere Status: Chronic Assessment and Plan: Patient drinks copious amounts of water could see states that helps with his hiccups Free water Fluid restriction 1500 mL Okay for Gatorade Consult nephrology (3) Acute hyponatremia: Code(s): E87.1 - Hypo-osmolality and hyponatremia Status: Acute Assessment and Plan: See plan above BMP in the morning (4) Pneumonia: Qualifiers: Laterality: left Lung location: lower lobe of lung Pneumonia type: due to unspecified organism Qualified Code(s): J18.9 - Pneumonia, unspecified organism Code(s): J18.9 - Pneumonia, unspecified organism Status: Acute Assessment and Plan: Chest x-ray shows left lower lobe edema or pneumonia Will start antibiotics due to leukocytosis IV Rocephin and azithromycin Azithromycin changed to doxy due to interaction with medications (5) Hypertension: Code(s): I10 - Essential (primary) hypertension Status: Chronic Assessment and Plan: Continue Cozaar (6) Hyperlipidemia: Code(s): E78.5 - Hyperlipidemia, unspecified Status: Chronic Assessment and Plan: Continue pravastatin (7) Weakness: Code(s): R53.1 - Weakness Status: Acute Assessment and Plan: Supplement shakes PT OT Quality VTE Prophylaxis VTE prophylaxis: mechanical ordered and pharmacologic ordered Hospitalist MIPS Advance Care Plan I have confirmed that the patient's Advanced Care Plan is present, code status is documented, or surrogate decision maker is listed in patient medical record.: Yes Medication Reconciliation I have utilized all available resources to obtain, update and review the patients current medications (includes all prescriptions, OTC, herbals, cannabis, and nutritional supplements).: Yes
--- NOTE | 2025-05-26 18:03 | ADMGEN ---
This patient, Mark Hines, was admitted to 3 [facility] Surg Room 303-01. Patient/family oriented to hospital policies and general routines including ID bracelet, bed and alarms, visiting hours, pain management, procedures, bathroom and other care routines, personal items, smoking policy, room service/diet, and visiting hours. Information on how to activate the Rapid Response Team has been discussed. Patient/Family are encouraged to report perceived risks to care and to ask questions if they do not understand what they are told or what they should do. Got report from Donya SHEN in the ED
[2025-05-26 20:00] VITALS: BP 155/62; PULSE 85; RESP 20; TEMP 36.5; O2SAT 99
[2025-05-26] MEDS: BACLOFEN 5 MG TABLET PO (21:37)
[2025-05-26 23:52] VITALS: BP 102/57; PULSE 91; RESP 16; TEMP 36.5; O2SAT 96
[2025-05-27 04:00] VITALS: BP 124/72; PULSE 89; RESP 16; TEMP 36.7; O2SAT 98
[2025-05-27] MEDS: BACLOFEN 5 MG TABLET PO ×3 (05:13→21:23)
[2025-05-27 05:38] LABS: Anion Gap 8 mmol/L (4-12); Blood Urea Nitrogen 8 mg/dL (9-20); Calcium 9.7 mg/dL (8.4-10.2); Carbon Dioxide 26 mmol/L (22-30); Chloride 99 mmol/L (98-107); Estimated CRCL calculation 66 ml/min; Estimated Glomerular Filt Rate > 60; Glucose 98 mg/dL (65-110); Potassium 4.3 mmol/L (3.4-5.0); Sodium 133 mmol/L (137-145)
[2025-05-27] MEDS: FLUTICASONE/SALMETEROL 45-21 MCG INHALER 1 PUFF 2 PUFF INHALATION ×2 (07:58→19:59)
--- NOTE | 2025-05-27 08:30 | PM.CNNEP ---
Assessment and Plan Assessment and plan (1) Hyponatremia: Code(s): E87.1 - Hypo-osmolality and hyponatremia Status: Acute Assessment and Plan: the patient has low sodium. He does drink some fluid when he is at home. By his history it does not sound like it is a whole lot of and even if it is up to 3 or 4L I would think his normal kidney function should be able to handle that. Test to look for issues that would decrease free water excretory ability have all been negative in the past. There is no history of cancer. No MANAGER ROOM disorders noted on CT brain or by exam no pulmonary issues except that he does have possible pneumonia but this has not been the case every time he has had hyponatremia. TSH and cortisol are okay. Serum protein electrophoresis is okay. He does not take narcotics, SSRIs, or diuretics. He is on pantoprazole which is the only thing I can see that might be an issue. Will change pantoprazole to Pepcid. The patient has overcorrected. I am going to give him DDAVP schedule and loosen his fluid restriction some. I will also give him some D5W he measure the sodium level soon after the D5W is in. (2) Pneumonia: Qualifiers: Laterality: left Lung location: lower lobe of lung Pneumonia type: due to unspecified organism Qualified Code(s): J18.9 - Pneumonia, unspecified organism Code(s): J18.9 - Pneumonia, unspecified organism Status: Acute Assessment and Plan: the patient is on antibiotics (3) Chronic hiccups: Code(s): R06.6 - Hiccough Status: Acute Assessment and Plan: the patient is getting chlorpromazine (4) Hyperlipidemia: Code(s): E78.5 - Hyperlipidemia, unspecified Status: Chronic Assessment and Plan: the patient is on pravastatin (5) Hypertension: Code(s): I10 - Essential (primary) hypertension Status: Chronic Assessment and Plan: blood pressure looks well controlled History of Present Illness Reason for Consult Consult date: 05/27/25 Chief Complaint Chief complaint: hyponatremia History of Present Illness Narrative: Mark is a very pleasant 64-year-old gentleman who has multiple problems including chronic singultus, asthma/COPD, anemia, tobacco use, hyperlipidemia, hypertension, glaucoma with legal blindness, and hyponatremia. The patient says that lately he has been having a flare of hiccups which he treats with drinking water. He has had low sodium in the past and so was told to drink about 3 of his hospital jars per day. He has been trying to stick to that but sometimes it is hard not to drink more. He began to develop weakness over the last few days and came into the hospital. Here his sodium was found to be very low. He was placed on a fluid restriction and labs were rechecked in the sodium level brad from 116-123 and now 133. He was in the hospital before and his sodium level did the same thing rising from 114-133. He received DDAVP plus D5W and the sodium dropped some. Evaluation in the past showed a very low urine osmolality and a calculated and measured serum osmolality which were fairly close considering how quickly sodiums were changing at the time. SPEP showed no M spike. TSH and cortisol were okay. CT brain was okay, and chest x-ray plus CT chest showed pneumonia at the time they were done. He denies use of narcotics, diuretics, antidepressants, but does take pantoprazole. Review of Systems Constitutional: Constitutional: Reports no additional constitutional complaints Eyes: Eyes: Reports no additional eye complaints ENT: Reports system reviewed and no additional complaints, except as documented Cardiovascular: Cardiovascular: Reports no additional cardiovascular complaints Respiratory: Respiratory: Reports no additional respiratory complaints Gastrointestinal: Gastrointestinal: Reports no additional gastrointestinal complaints Genitourinary: Genitourinary: Reports no additional male genitourinary complaints Musculoskeletal: Musculoskeletal: Reports no additional musculoskeletal complaints Integumentary/Breasts: Skin/Breast: Reports system reviewed and no additional complaints, except as docu Neurologic: Reports system reviewed and no additional complaints, except as documented Psychiatric: Psychiatric: Reports no additional psychiatric complaints Endocrine: Endocrine: Reports no additional endocrine complaints [facility] Past Medical History Medical History Psychogenic polydipsia Other osteonecrosis, right femur Other osteonecrosis, left femur Hiatal hernia Adenomatous colon polyp Asthma-COPD overlap syndrome Erosive esophagitis Anemia of chronic disease Chronic hiccups Hyponatremia Tobacco abuse Normocytic anemia Glaucoma Legally blind. Hyperlipidemia Hypertension Surgical History Surgical History History of enucleation of eye Right, secondary to recurrent infection. Family History Family History Grandparent Acute myocardial infarction Mother Acute myocardial infarction Skin cancer Father Acute myocardial infarction Sibling Cancer Social History Social History Social History: Surrogate decision maker: Svitlana Hines, . Code status: Full code. Smoking packs per day: 1.5 Smoking cigarettes per day: 30.0 Years smoked: 50 Smoking pack-years: 75.00 Smoking status: Former smoker Tobacco type: cigarettes Smoking end date: 09/20/19 Alcohol intake: current Drinks per week: 3 Substance use: never Substance use type: does not use Do You Feel Safe in your Home?: Yes Lack of Transportation: No Lack of Food: Never True Current Housing: I Have Housing Concerned About Future Housing: No Difficulty Paying Gas/Electric Bills: No Difficulty Paying for Meds: No Currently Unemployed: No Education: Decline to Answer Difficulty w/ Childcare or Family Care: No Living arrangements: with family Additional living arrangements comments: The patient lives with his of 43 years in [place]. He and his had 4 children 1 of which at . His remaining children are healthy. 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 Spiritual care concerns: No Meds Home Medications and Allergies Home Medications ?Medication ?Instructions ?Recorded ?Confirmed ?Type losartan 50 mg tablet 50 mg PO DAILY 03/02/21 05/26/25 History montelukast 10 mg tablet 10 mg PO HS 03/02/21 05/26/25 History pravastatin 80 mg tablet 80 mg PO DAILY 03/02/21 05/26/25 History cholecalciferol (vitamin D3) 25 25 mcg PO DAILY 03/29/21 05/26/25 History mcg (1,000 unit) capsule (Vitamin D3) cyanocobalamin (vitamin B-12) 100 2,000 mcg PO DAILY 03/29/21 05/26/25 History mcg tablet albuterol sulfate 90 mcg/actuation 1 inh inhalation QID PRN shortness 05/02/21 05/26/25 Rx aerosol inhaler of breath or wheezing #8.5 grams dorzolamide 22.3 mg-timolol 6.8 1 drp LEFT EYE TID 06/29/24 05/26/25 History mg/mL eye drops budesonide-formoterol HFA 80 2 puff inhalation Q12H 12/26/24 05/26/25 History mcg-4.5 mcg/actuation aerosol inhaler gabapentin 300 mg capsule 300 mg PO DAILY 12/26/24 05/26/25 History pantoprazole 40 mg tablet,delayed 40 mg PO BID 30 days #60 tabs 12/27/24 05/26/25 Rx release chlorpromazine 25 mg tablet 25 mg PO Q6H PRN Hiccups #30 tabs 01/11/25 05/26/25 Rx aspirin 81 mg tablet,delayed 81 mg PO DAILY 03/25/25 05/26/25 History release (Adult Aspirin Regimen) ibuprofen 200 mg tablet (Advil) 600 mg PO BID 03/25/25 05/26/25 History baclofen 5 mg tablet 5 mg PO BID 04/24/25 05/26/25 History Allergies Allergy/AdvReac Type Severity Reaction Status Date / Time No Known Allergies Allergy Verified 05/26/25 16:14 Vital Signs Vital Signs - 24 hr 05/26/25 12:14 05/26/25 16:13 05/26/25 18:21 Temperature 98.7 F Pulse Rate 90 85 Respiratory Rate 16 14 Blood Pressure 145/75 H 160/80 H Pulse Oximetry 97 97 Oxygen Delivery Room Air Room Air 05/26/25 20:00 05/26/25 20:00 05/26/25 23:52 Temperature 97.7 F 97.7 F Pulse Rate 85 91 Respiratory Rate 20 16 Blood Pressure 155/62 H 102/57 L Pulse Oximetry 99 96 Oxygen Delivery Room Air 05/27/25 04:00 Temperature 98.0 F Pulse Rate 89 Respiratory Rate 16 Blood Pressure 124/72 Pulse Oximetry 98 Oxygen Delivery Exam Narrative: Exam Narrative: Well developed well-nourished Male in no acute distress Skin is warm and dry without rash Head normocephalic atraumatic Eyes normal sclerae and conjunctivae Mouth normal lips teeth and gums Neck no nodes no thyromegaly no carotid bruits Axillae no nodes Back no CVA tenderness Lungs symmetric and clear to auscultation and percussion Heart regular rate and rhythm without rub or gallop Abdomen bowel sounds positive soft nontender, no HSM, masses, or bruits. Extremities no cyanosis, clubbing, or edema Pulses 2+ equal in radial arteries Psychological not anxious or depressed Neuro alert and oriented x3 motor 5/5 cranial nerves 2-12 intact reflexes 2+ and equal in the biceps and patellar tendons cerebellar normal rapid alternating movements Results Lab Results 05/26/25 14:14 05/27/25 04:52 Lab results: Most recent lab results Calcium 9.7 mg/dL (8.4-10.2) 05/27/25 04:52
[2025-05-27] MEDS: CHOLECALCIFEROL (VITAMIN D3) 25 MCG (1,000 UNITS) TABLET PO (08:58)
[2025-05-27] MEDS: LOSARTAN POTASSIUM 50 MG TABLET PO (08:58)
[2025-05-27] MEDS: PRAVASTATIN SODIUM 20 MG TABLET 80 MG PO (08:58)
[2025-05-27] MEDS: GABAPENTIN 300 MG CAPSULE PO ×3 (08:58→17:13)
[2025-05-27] MEDS: DOXYCYCLINE HYCLATE 100 MG TABLET PO ×2 (08:58→20:24)
[2025-05-27] MEDS: CYANOCOBALAMIN 1,000 MCG TABLET 2000 MCG PO (08:58)
[2025-05-27] MEDS: ASPIRIN 81 MG ENTERIC TABLET PO (08:58)
[2025-05-27] MEDS: FAMOTIDINE 20 MG TABLET PO ×2 (08:59→20:24)
[2025-05-27] MEDS: ENOXAPARIN 40 MG/0.4 ML SYRINGE SUB-Q (08:59)
[2025-05-27] MEDS: DEXTROSE 5% IN WATER 500 ML 210 ML IV CONT ×4 (09:00→21:53)
[2025-05-27] MEDS: DESMOPRESSIN ACETATE 4 MCG/ML AMP 2 MCG IV PUSH ×3 (09:05→20:35)
[2025-05-27] MEDS: ACETAMINOPHEN 325 MG TABLET 650 MG PO ×2 (09:31→18:07)
[2025-05-27 12:00] VITALS: BP 108/56; PULSE 77; RESP 18; TEMP 36.3; O2SAT 97
--- NOTE | 2025-05-27 12:08 | P.PNIM_ITS ---
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 - Psychological and behavioral factors associated with disorders or diseases classified elsewhere Status: Chronic Assessment and Plan: Patient drinks copious amounts of water could see states that helps with his hiccups on fluid restriction (3) Acute hyponatremia: Code(s): E87.1 - Hypo-osmolality and hyponatremia Status: Acute Assessment and Plan: Na 133 Now on Desmopressin and D5w per Nephrology Nephrology following,continue care plan per Nephrology (4) Pneumonia: Qualifiers: Laterality: left Lung location: lower lobe of lung Pneumonia type: due to unspecified organism Qualified Code(s): J18.9 - Pneumonia, unspecified organism Code(s): J18.9 - Pneumonia, unspecified organism Status: Acute Assessment and Plan: Chest x-ray shows left lower lobe edema or pneumonia Will start antibiotics due to leukocytosis IV Rocephin and azithromycin Monitor blood culture (5) Hypertension: Code(s): I10 - Essential (primary) hypertension Status: Chronic Assessment and Plan: Continue Cozaar (6) Hyperlipidemia: Code(s): E78.5 - Hyperlipidemia, unspecified Status: Chronic Assessment and Plan: Continue pravastatin (7) Weakness: Code(s): R53.1 - Weakness Status: Acute Assessment and Plan: Supplement shakes PT OT Plan DVT prophylaxis on Sq Lovenox Subjective Date/time seen: 05/27/25 12:08 Interval history: Comfortable at bedside noted headache and nausea has resolved Review of Systems Review of Systems: 12 systems were reviewed and are negativ e except for as per HPI. Exam Narrative: General: Continuous hiccups, malnourished HEENT: normocephalic, atraumatic. Mucous membranes moist. Blind. Neck supple without JVD, lymphadenopathy, or bruit. Respiratory: Course Cardiovascular: Regular rate and rhythm, normal S1-S2 upon ascultation. No murmurs, rubs, or clicks. PMI is nondisplaced, capillary refill less than 3 second. Abdomen: Soft, round, no pulsatile masses, nondistended and nontender. No rebound, no guarding. No CVA tenderness, no hepatosplenomegaly. Bowel sounds present to all four quadrants. No high pitch or tinkling sounds, resonant to percussion. Extremities: No cyanosis, clubbing, or edema present. Pulses are palpable 2/2. Active ROM to all four extremities. Neuro: Alert and orientated x 4. Blind Cranial nerves 2-12 intact without focal deficit. Skin: Warm, dry, and intact, without rash, erythema, or lesion. Psych: pleasant, cooperative, normal speech, normal affect, no hallucinations, no dysarthia Objective Data Vital Signs Vital Signs: Vital Signs - 24 hr 05/26/25 12:14 05/26/25 16:13 05/26/25 18:21 Temperature 98.7 F Pulse Rate 90 85 Respiratory Rate 16 14 Blood Pressure 145/75 H 160/80 H Pulse Oximetry 97 97 Oxygen Delivery Room Air Room Air 05/26/25 20:00 05/26/25 20:00 05/26/25 23:52 Temperature 97.7 F 97.7 F Pulse Rate 85 91 Respiratory Rate 20 16 Blood Pressure 155/62 H 102/57 L Pulse Oximetry 99 96 Oxygen Delivery Room Air 05/27/25 04:00 05/27/25 08:00 Temperature 98.0 F Pulse Rate 89 Respiratory Rate 16 Blood Pressure 124/72 Pulse Oximetry 98 Oxygen Delivery Room Air Intake/Output Intake/Output: Intake & Output 05/24/25 05/25/25 05/26/25 05/27/25 23:59 23:59 23:59 23:59 Intake Total 170 400 Balance 170 400 Meds/Results Medications: Active Medications Generic Name Dose Route Start Last Admin Trade Name Freq PRN Reason Stop Dose Admin Acetaminophen 650 mg 05/27/25 09:12 05/27/25 09:31 Acetaminophen 325 Mg Tablet PO 650 mg Q6H PRN Administration Mild Pain (1-3) or Fever Albuterol 1 puff 05/26/25 21:03 Albuterol Sulfate (*Sp) Aerosol 1 Puff INHALATION QIDRT PRN Shortness Of Breath Or Wheezing Aspirin 81 mg 05/27/25 09:00 05/27/25 08:58 Aspirin 81 Mg Enteric Tablet PO 81 mg DAILY PASHA Administration Baclofen 5 mg 05/26/25 22:00 05/27/25 05:13 Baclofen 5 Mg Tablet PO 5 mg Q8HR PASHA Administration Chlorpromazine HCl 25 mg 05/26/25 21:05 05/27/25 05:13 Chlorpromazine Hcl 25 Mg Tablet PO 25 mg Q6HR PASHA Administration Cyanocobalamin 2,000 mcg 05/27/25 09:00 05/27/25 08:58 Cyanocobalamin 1,000 Mcg Tablet PO 2,000 mcg DAILY PASHA Administration Desmopressin Acetate 2 mcg 05/27/25 09:00 05/27/25 09:05 Desmopressin Acetate 4 Mcg/Ml Amp IV PUSH 2 mcg Q6H PASHA Administration Dorzolamide/Timolol 1 drop 05/27/25 09:00 05/27/25 09:09 Dorzolamide/Timolol Ophth Shannon 10 Ml Bottle LEFT EYE Not Given TID PASHA Doxycycline Hyclate 100 mg 05/27/25 09:00 05/27/25 08:58 Doxycycline Hyclate 100 Mg Tablet PO 100 mg Q12HR PASHA Administration Enoxaparin Sodium 40 mg 05/27/25 09:00 05/27/25 08:59 Enoxaparin 40 Mg/0.4 Ml Syringe SUB-Q 40 mg DAILY PASHA Administration Famotidine 20 mg 05/27/25 09:00 05/27/25 08:59 Famotidine 20 Mg Tablet PO 20 mg Q12HR PASHA Administration Gabapentin 300 mg 05/27/25 09:00 05/27/25 08:58 Gabapentin 300 Mg Capsule PO 300 mg TID PASHA Administration Ceftriaxone Sodium 1 gm/ 50 mls @ 100 mls/hr 05/27/25 16:00 Sodium Chloride IVPB Q24H PASHA Losartan Potassium 50 mg 05/27/25 09:00 05/27/25 08:58 Losartan Potassium 50 Mg Tablet PO 50 mg DAILY PASHA Administration Montelukast Sodium 10 mg 05/27/25 21:00 Montelukast Sodium 10 Mg Tablet PO HS PASHA Pravastatin Sodium 80 mg 05/27/25 09:00 05/27/25 08:58 Pravastatin Sodium 20 Mg Tablet PO 80 mg DAILY PASHA Administration Fluticasone/Salmeterol 2 puff 05/27/25 08:00 05/27/25 07:58 Fluticasone/Salmeterol 45-21 Mcg Inhaler 1 Puff INHALATION 2 puff Q12HRT PASHA Administration Vitamin D 25 mcg 05/27/25 09:00 05/27/25 08:58 Cholecalciferol (Vitamin D3) 25 Mcg (1,000 Units) Tablet PO 25 mcg DAILY PASHA Administration Radiology Results: ITS Impressions Chest X-Ray 05/26/25 15:10 IMPRESSION: 1. Mild increased initial pattern in the left mid to lower lung zone which could represent asymmetric mild pulmonary edema or pneumonia. Labs Labs: Laboratory Results - last 24 hr 05/26/25 05/26/25 05/27/25 14:14 16:15 04:52 WBC 17.5 H RBC 3.33 L Hgb 9.5 L Hct 27.5 L MCV 82.6 MCH 28.5 MCHC 34.5 RDW 14.0 Plt Count 214 MPV 11.7 H Immature Gran % (Auto) 0.5 Neut % (Auto) 90.6 H Lymph % (Auto) 6.0 L [place] % (Auto) 2.5 L Eos % (Auto) 0.2 Baso % (Auto) 0.2 Lymph # (Auto) 1.06 [place] # (Auto) 0.4 Eos # (Auto) 0.0 Baso # (Auto) 0.0 Abs Immat Gran (auto) 0.09 H Absolute Neuts (auto) 15.9 H Absolute Nucleated RBC 0.000 Nucleated RBC % 0.0 Sodium 116 L* 123 L 133 L Potassium 4.2 4.3 Chloride 84 L 99 Carbon Dioxide 22 26 Anion Gap 10 8 BUN 6 L D 8 L Creatinine 0.73 0.95 Estim Creat Clear Calc 84 66 Estimated GFR > 60 > 60 Glucose 105 98 Calcium 9.1 9.7 Total Bilirubin 0.6 AST 20 ALT 10 Alkaline Phosphatase 68 Total Protein 7.1 Albumin 4.0 Urine Color Yellow Urine Appearance Cloudy H Urine pH 7.0 Ur Specific [place] 1.002 Urine Protein Negative Urine Glucose (UA) Negative Urine Ketones Negative Ur Blood (Man) Negative Urine Nitrate Negative Urine Bilirubin Negative Urine Urobilinogen 0.2 Add Ur Microanalysis Reviewed Leukocyte Esterase Rfl Negative Urine RBC 0-2 Urine WBC 0-5 Ur Squamous Epith Cells None seen Urine Bacteria None seen Urine Casts 0-2 Quality VTE Prophylaxis VTE prophylaxis: mechanical ordered and pharmacologic ordered
[2025-05-27 13:05] LABS: Sodium 132 mmol/L (137-145)
[2025-05-27 16:00] VITALS: BP 105/62; PULSE 75; RESP 18; TEMP 36.3; O2SAT 97
[2025-05-27 16:49] LABS: Sodium 130 mmol/L (137-145)
[2025-05-27] MEDS: cefTRIAXone 1 GM in SODIUM CHLORIDE 0.9% IV 50 ML 100 ML IVPB (17:16)
[2025-05-27 20:00] VITALS: PULSE 65; RESP 18; O2SAT 100
[2025-05-27] MEDS: MONTELUKAST SODIUM 10 MG TABLET PO (20:24)
[2025-05-27 20:26] VITALS: BP 142/50; PULSE 65; RESP 18; TEMP 36.2; O2SAT 100
[2025-05-27 20:59] LABS: Sodium 129 mmol/L (137-145)
[2025-05-28 00:34] LABS: Sodium 125 mmol/L (137-145)
[2025-05-28] MEDS: DEXTROSE 5% IN WATER 500 ML 210 ML IV CONT (00:46)
--- NOTE | 2025-05-28 00:51 | PC.NURSE ---
Called Dr. Montoya at 2129 with Na results of 129. New orders received for D5W then repeat Na, if Na still above 124 administer another 500 ml of D5W then recheck Na in AM.
[2025-05-28] MEDS: DESMOPRESSIN ACETATE 4 MCG/ML AMP 2 MCG IV PUSH ×4 (03:15→20:23)
[2025-05-28 05:02] VITALS: BP 134/52; PULSE 79; RESP 20; TEMP 36.6; O2SAT 100
[2025-05-28] MEDS: BACLOFEN 5 MG TABLET PO ×3 (05:18→20:22)
[2025-05-28 05:47] LABS: Hematocrit 26.0 % (42.0-52.0); Hemoglobin 8.6 g/dL (14.0-18.0); Immature Granulocyte Percent A 0.5 % (0-0.5); Lymphocytes Absolute Auto 0.80 K/mm3 (0.9-3.2); Mean Corpuscular HGB Conc 33.1 g/dl (32-36); Mean Corpuscular Hemoglobin 28.3 pg (26-34); Mean Corpuscular Volume 85.5 fl (80-100); Nucleated Red Blood Cells Absolute Auto 0.000 K/mm3 (0.0-0.012); Nucleated Red Blood Cells Perc 0.0 % (0.0-0.2); Platelet Count Result 172 k/mm3 (150-375); Red Blood Count 3.04 M/mm3 (4.6-6.20); White Blood Count 12.1 K/mm3 (4.5-10.0)
[2025-05-28 06:04] LABS: Alanine Aminotransferase 8 U/L (6-50); Albumin Level 3.4 g/dL (3.5-5.1); Alkaline Phosphatase 62 U/L (38-126); Anion Gap 8 mmol/L (4-12); Aspartate Amino Transferase 16 U/L (17-59); Bilirubin,Total 0.2 mg/dL (0.2-1.3); Blood Urea Nitrogen 11 mg/dL (9-20); Calcium 9.1 mg/dL (8.4-10.2); Carbon Dioxide 22 mmol/L (22-30); Chloride 95 mmol/L (98-107); Estimated CRCL calculation 74 ml/min; Estimated Glomerular Filt Rate > 60; Glucose 115 mg/dL (65-110); Magnesium 1.8 mg/dL (1.6-2.3); Potassium 3.8 mmol/L (3.4-5.0); Sodium 125 mmol/L (137-145); Total Protein 6.1 g/dL (6.3-8.2)
[2025-05-28 06:06] LABS: Iron 18 ug/dL (49-181)
[2025-05-28 06:15] LABS: Percent Iron Saturation 9 % (20-50)
[2025-05-28 06:47] LABS: Ferritin 248.00 ng/mL (11.1-264)
[2025-05-28] MEDS: FLUTICASONE/SALMETEROL 45-21 MCG INHALER 1 PUFF 2 PUFF INHALATION (07:17)
[2025-05-28] MEDS: CHOLECALCIFEROL (VITAMIN D3) 25 MCG (1,000 UNITS) TABLET PO (07:55)
[2025-05-28] MEDS: ASPIRIN 81 MG ENTERIC TABLET PO (07:55)
[2025-05-28] MEDS: ENOXAPARIN 40 MG/0.4 ML SYRINGE SUB-Q (07:56)
[2025-05-28] MEDS: PRAVASTATIN SODIUM 20 MG TABLET 80 MG PO (07:56)
[2025-05-28] MEDS: LOSARTAN POTASSIUM 50 MG TABLET PO (07:56)
[2025-05-28] MEDS: FAMOTIDINE 20 MG TABLET PO ×2 (07:56→20:22)
[2025-05-28] MEDS: CYANOCOBALAMIN 1,000 MCG TABLET 2000 MCG PO (07:56)
[2025-05-28] MEDS: GABAPENTIN 300 MG CAPSULE PO ×3 (07:56→17:28)
[2025-05-28] MEDS: DOXYCYCLINE HYCLATE 100 MG TABLET PO ×2 (07:56→20:22)
[2025-05-28] MEDS: ACETAMINOPHEN 325 MG TABLET 650 MG PO (07:57)
[2025-05-28] MEDS: DORZOLAMIDE/TIMOLOL OPHTH SOL 10 ML BOTTLE 1 DROP LEFT EYE ×3 (07:58→17:28)
[2025-05-28 08:00] VITALS: BP 130/58; PULSE 81; RESP 18; TEMP 36.6; O2SAT 100
[2025-05-28] MEDS: IRON SUCROSE COMPLEX 400 MG, IRON SUCROSE COMPLEX 100 MG in SODIUM CHLORIDE 0.9% IV 250 ML 78.57 MG IVPB (10:15)
--- NOTE | 2025-05-28 11:00 | P.PNNP_ITS ---
Progress Note: A&P Assessment and Plan (1) Hyponatremia: Code(s): E87.1 - Hypo-osmolality and hyponatremia Status: Acute Assessment and Plan: * resolving if not stabilizing * acute on chronic * baseline sodium runs around 121 - 131mmol/L * noted history that dates back ~ 4 years ago * sodium levels on previous ER visits noted * acute drop due to: * further increase in free water intake in an attempt to treat hiccups * pneumonia * chronic hyponatremia due to: * excessive free water intake (primary reason) * intermittent thorazine use * underlying lung disease(?) * evidence of overcorrection is noted on admission * this was stabilized with the use multiple dose of DDAVP and D5W IVFs along with easing up on his fluid restriction * on fluid restriction -- change to 2L/day * follow trend of repeat sodiums (2) Pneumonia: Qualifiers: Laterality: left Lung location: lower lobe of lung Pneumonia type: due to unspecified organism Qualified Code(s): J18.9 - Pneumonia, unspecified organism Code(s): J18.9 - Pneumonia, unspecified organism Status: Acute Assessment and Plan: * as suggested by admission CXR * no evidence of hypoxia * follow cultures * on antibiotics (3) Anemia: Code(s): D64.9 - Anemia, unspecified Status: Acute Assessment and Plan: * low H/H noted * anemia studies demonstrate iron deficiency * IV venofer while hospitalized * follow trend of H/H (4) Hypertension: Code(s): I10 - Essential (primary) hypertension Status: Chronic Assessment and Plan: * reasonable control * follow trend of hemodynamics (5) Chronic hiccups: Code(s): R06.6 - Hiccough Status: Chronic Assessment and Plan: * chronic issue * on scheduled thorazine as well as baclofen and gabapentin * continue supportive therapy (6) Weakness: Code(s): R53.1 - Weakness Status: Acute Assessment and Plan: * due to low sodium (?) and pneumonia * PT/OT as tolerated Will continue to follow. L Subjective Date/time seen: 05/28/25 11:00 Interval history: Follow-up for acute on chronic hyponatremia. Chart reviewed -- assuming care from Dr. Montoya; given D5W IVFs and DDAVP due to overcorrection yesterday with sodium back down to 125mmol/L by last check; no apparent distress noted at the time of my visit; no issues/events overnight or earlier this morning. Exam 2 Narrative: General: WD/WN male in NAD Heart: normal S1 and S2; no rub Lungs: clear anteriorly Abdomen: soft, nontender, nondistended, positive bowel sounds Extremities: no cyanosis or clubbing; no edema Skin: warm and dry Objective Data Vital Signs Vital Signs: Vital Signs Temp Pulse Resp BP Pulse Ox O2 Del Method 05/28/25 08:00 97.9 F 81 18 130/58 L 100 05/28/25 08:00 100 Room Air 05/28/25 05:02 97.9 F 79 20 134/52 L 100 05/27/25 20:26 97.1 F L 65 18 142/50 H 100 05/27/25 20:00 65 18 100 Room Air 05/27/25 16:00 97.3 F L 75 18 105/62 97 Intake/Output Intake/Output: Intake & Output 05/25/25 05/26/25 05/27/25 05/28/25 23:59 23:59 23:59 23:59 Intake Total 196 442 0137 Balance 931 963 4890 Meds/Results Medications: Active Medications Generic Name Dose Route Start Last Admin Trade Name Freq PRN Reason Stop Dose Admin Acetaminophen 650 mg 05/27/25 09:12 05/28/25 07:57 Acetaminophen 325 Mg Tablet PO 650 mg Q6H PRN Administration Mild Pain (1-3) or Fever Albuterol 1 puff 05/26/25 21:03 Albuterol Sulfate (*Sp) Aerosol 1 Puff INHALATION QIDRT PRN Shortness Of Breath Or Wheezing Aspirin 81 mg 05/27/25 09:00 05/28/25 07:55 Aspirin 81 Mg Enteric Tablet PO 81 mg DAILY PASHA Administration Baclofen 5 mg 05/26/25 22:00 05/28/25 13:50 Baclofen 5 Mg Tablet PO 5 mg Q8HR PASHA Administration Chlorpromazine HCl 25 mg 05/26/25 21:05 05/28/25 13:50 Chlorpromazine Hcl 25 Mg Tablet PO 25 mg Q6HR PASHA Administration Cyanocobalamin 2,000 mcg 05/27/25 09:00 05/28/25 07:56 Cyanocobalamin 1,000 Mcg Tablet PO 2,000 mcg DAILY PASHA Administration Desmopressin Acetate 2 mcg 05/27/25 09:00 05/28/25 09:20 Desmopressin Acetate 4 Mcg/Ml Amp IV PUSH 2 mcg Q6H PASHA Administration Dorzolamide/Timolol 1 drop 05/27/25 09:00 05/28/25 13:51 Dorzolamide/Timolol Ophth Shannon 10 Ml Bottle LEFT EYE 1 drop TID PASHA Administration Doxycycline Hyclate 100 mg 05/27/25 09:00 05/28/25 07:56 Doxycycline Hyclate 100 Mg Tablet PO 100 mg Q12HR PASHA Administration Enoxaparin Sodium 40 mg 05/27/25 09:00 05/28/25 07:56 Enoxaparin 40 Mg/0.4 Ml Syringe SUB-Q 40 mg DAILY PASHA Administration Famotidine 20 mg 05/27/25 09:00 05/28/25 07:56 Famotidine 20 Mg Tablet PO 20 mg Q12HR PASHA Administration Gabapentin 300 mg 05/27/25 09:00 05/28/25 13:50 Gabapentin 300 Mg Capsule PO 300 mg TID PASHA Administration Ceftriaxone Sodium 1 gm/ 50 mls @ 100 mls/hr 05/27/25 16:00 05/27/25 17:16 Sodium Chloride IVPB 100 mls/hr Q24H PASHA Administration Losartan Potassium 50 mg 05/27/25 09:00 05/28/25 07:56 Losartan Potassium 50 Mg Tablet PO 50 mg DAILY PASHA Administration Montelukast Sodium 10 mg 05/27/25 21:00 05/27/25 20:24 Montelukast Sodium 10 Mg Tablet PO 10 mg HS PASHA Administration Pravastatin Sodium 80 mg 05/27/25 09:00 05/28/25 07:56 Pravastatin Sodium 20 Mg Tablet PO 80 mg DAILY PASHA Administration Fluticasone/Salmeterol 2 puff 05/27/25 08:00 05/28/25 07:17 Fluticasone/Salmeterol 45-21 Mcg Inhaler 1 Puff INHALATION 2 puff Q12HRT PASHA Administration Vitamin D 25 mcg 05/27/25 09:00 05/28/25 07:55 Cholecalciferol (Vitamin D3) 25 Mcg (1,000 Units) Tablet PO 25 mcg DAILY PASHA Administration Radiology Results: ITS Impressions Chest X-Ray 05/26/25 15:10 IMPRESSION: 1. Mild increased initial pattern in the left mid to lower lung zone which could represent asymmetric mild pulmonary edema or pneumonia. Labs Labs: Laboratory Tests 05/28/25 05:17 05/28/25 05:17 Calcium 9.1 Magnesium 1.8 Iron 18 L TIBC 210 L % Saturation 9 L Ferritin 248.00 Total Bilirubin 0.2 AST 16 L ALT 8 Alkaline Phosphatase 62 Total Protein 6.1 L Albumin 3.4 L
[2025-05-28 12:00] VITALS: BP 123/65; PULSE 72; RESP 18; TEMP 36.6; O2SAT 100
--- NOTE | 2025-05-28 12:37 | P.PNIM_ITS ---
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 - Psychological and behavioral factors associated with disorders or diseases classified elsewhere Status: Chronic Assessment and Plan: Patient drinks copious amounts of water could see states that helps with his hiccups on fluid restriction (3) Acute hyponatremia: Code(s): E87.1 - Hypo-osmolality and hyponatremia Status: Acute Assessment and Plan: Na 125 Now on Desmopressin and D5w per Nephrology Nephrology following,continue care plan per Nephrology (4) Pneumonia: Qualifiers: Laterality: left Lung location: lower lobe of lung Pneumonia type: due to unspecified organism Qualified Code(s): J18.9 - Pneumonia, unspecified organism Code(s): J18.9 - Pneumonia, unspecified organism Status: Acute Assessment and Plan: Chest x-ray shows left lower lobe edema or pneumonia Will start antibiotics due to leukocytosis Continue IV Rocephin and azithromycin Monitor blood culture (5) Hypertension: Code(s): I10 - Essential (primary) hypertension Status: Chronic Assessment and Plan: Continue Cozaar (6) Hyperlipidemia: Code(s): E78.5 - Hyperlipidemia, unspecified Status: Chronic Assessment and Plan: Continue pravastatin (7) Weakness: Code(s): R53.1 - Weakness Status: Acute Assessment and Plan: Supplement shakes PT OT Plan Iron deficiency Anemia hb 8.6 with Isat 16 Venofer 500/1000mg monitor H and h DVT prophylaxis on Sq Lovenox Subjective Date/time seen: 05/28/25 12:37 Interval history: Comfortable at bedside Review of Systems Review of Systems: 12 systems were reviewed and are negativ e except for as per HPI. Exam Narrative: General: Continuous hiccups, malnourished HEENT: normocephalic, atraumatic. Mucous membranes moist. Blind. Neck supple without JVD, lymphadenopathy, or bruit. Respiratory: Course Cardiovascular: Regular rate and rhythm, normal S1-S2 upon ascultation. No murmurs, rubs, or clicks. PMI is nondisplaced, capillary refill less than 3 second. Abdomen: Soft, round, no pulsatile masses, nondistended and nontender. No rebound, no guarding. No CVA tenderness, no hepatosplenomegaly. Bowel sounds present to all four quadrants. No high pitch or tinkling sounds, resonant to percussion. Extremities: No cyanosis, clubbing, or edema present. Pulses are palpable 2/2. Active ROM to all four extremities. Neuro: Alert and orientated x 4. Blind Cranial nerves 2-12 intact without focal deficit. Skin: Warm, dry, and intact, without rash, erythema, or lesion. Psych: pleasant, cooperative, normal speech, normal affect, no hallucinations, no dysarthia Objective Data Vital Signs Vital Signs: Vital Signs - 24 hr 05/27/25 16:00 05/27/25 20:00 05/27/25 20:26 Temperature 97.3 F L 97.1 F L Pulse Rate 75 65 65 Respiratory Rate 18 18 18 Blood Pressure 105/62 142/50 H Pulse Oximetry 97 100 100 Oxygen Delivery Room Air 05/28/25 05:02 05/28/25 08:00 Temperature 97.9 F Pulse Rate 79 Respiratory Rate 20 Blood Pressure 134/52 L Pulse Oximetry 100 100 Oxygen Delivery Room Air Intake/Output Intake/Output: Intake & Output 05/25/25 05/26/25 05/27/25 05/28/25 23:59 23:59 23:59 23:59 Intake Total 947 823 6680 Balance 888 510 9336 Meds/Results Medications: Active Medications Generic Name Dose Route Start Last Admin Trade Name Freq PRN Reason Stop Dose Admin Acetaminophen 650 mg 05/27/25 09:12 05/28/25 07:57 Acetaminophen 325 Mg Tablet PO 650 mg Q6H PRN Administration Mild Pain (1-3) or Fever Albuterol 1 puff 05/26/25 21:03 Albuterol Sulfate (*Sp) Aerosol 1 Puff INHALATION QIDRT PRN Shortness Of Breath Or Wheezing Aspirin 81 mg 05/27/25 09:00 05/28/25 07:55 Aspirin 81 Mg Enteric Tablet PO 81 mg DAILY PASHA Administration Baclofen 5 mg 05/26/25 22:00 05/28/25 05:18 Baclofen 5 Mg Tablet PO 5 mg Q8HR PASHA Administration Chlorpromazine HCl 25 mg 05/26/25 21:05 05/28/25 05:18 Chlorpromazine Hcl 25 Mg Tablet PO 25 mg Q6HR PASHA Administration Cyanocobalamin 2,000 mcg 05/27/25 09:00 05/28/25 07:56 Cyanocobalamin 1,000 Mcg Tablet PO 2,000 mcg DAILY PASHA Administration Desmopressin Acetate 2 mcg 05/27/25 09:00 05/28/25 09:20 Desmopressin Acetate 4 Mcg/Ml Amp IV PUSH 2 mcg Q6H PASHA Administration Dorzolamide/Timolol 1 drop 05/27/25 09:00 05/28/25 07:58 Dorzolamide/Timolol Ophth [place] 10 Ml Bottle LEFT EYE 1 drop TID PASHA Administration Doxycycline Hyclate 100 mg 05/27/25 09:00 05/28/25 07:56 Doxycycline Hyclate 100 Mg Tablet PO 100 mg Q12HR PASHA Administration Enoxaparin Sodium 40 mg 05/27/25 09:00 05/28/25 07:56 Enoxaparin 40 Mg/0.4 Ml Syringe SUB-Q 40 mg DAILY PASHA Administration Famotidine 20 mg 05/27/25 09:00 05/28/25 07:56 Famotidine 20 Mg Tablet PO 20 mg Q12HR PASHA Administration Gabapentin 300 mg 05/27/25 09:00 05/28/25 07:56 Gabapentin 300 Mg Capsule PO 300 mg TID PASHA Administration Ceftriaxone Sodium 1 gm/ 50 mls @ 100 mls/hr 05/27/25 16:00 05/27/25 17:16 Sodium Chloride IVPB 100 mls/hr Q24H PASHA Administration Iron Sucrose 400 mg/ Iron 275 mls @ 78.571 mls/hr 05/28/25 10:00 05/28/25 10:15 Sucrose 100 mg/ Sodium IVPB 05/28/25 13:29 78.57 mls/hr Chloride ONCE ONE Administration Losartan Potassium 50 mg 05/27/25 09:00 05/28/25 07:56 Losartan Potassium 50 Mg Tablet PO 50 mg DAILY PASHA Administration Montelukast Sodium 10 mg 05/27/25 21:00 05/27/25 20:24 Montelukast Sodium 10 Mg Tablet PO 10 mg HS PASHA Administration Pravastatin Sodium 80 mg 05/27/25 09:00 05/28/25 07:56 Pravastatin Sodium 20 Mg Tablet PO 80 mg DAILY PASHA Administration Fluticasone/Salmeterol 2 puff 05/27/25 08:00 05/28/25 07:17 Fluticasone/Salmeterol 45-21 Mcg Inhaler 1 Puff INHALATION 2 puff Q12HRT PASHA Administration Vitamin D 25 mcg 05/27/25 09:00 05/28/25 07:55 Cholecalciferol (Vitamin D3) 25 Mcg (1,000 Units) Tablet PO 25 mcg DAILY PASHA Administration Radiology Results: ITS Impressions Chest X-Ray 05/26/25 15:10 IMPRESSION: 1. Mild increased initial pattern in the left mid to lower lung zone which could represent asymmetric mild pulmonary edema or pneumonia. Labs Labs: Laboratory Results - last 24 hr 05/27/25 05/27/25 05/27/25 12:50 16:36 20:43 WBC RBC Hgb Hct MCV MCH MCHC RDW Plt Count MPV Immature Gran % (Auto) Neut % (Auto) Lymph % (Auto) [place] % (Auto) Eos % (Auto) Baso % (Auto) Lymph # (Auto) [place] # (Auto) Eos # (Auto) Baso # (Auto) Abs Immat Gran (auto) Absolute Neuts (auto) Absolute Nucleated RBC Nucleated RBC % Sodium 132 L 130 L 129 L Potassium Chloride Carbon Dioxide Anion Gap BUN Creatinine Estim Creat Clear Calc Estimated GFR Glucose Calcium Magnesium Iron TIBC % Saturation Ferritin Total Bilirubin AST ALT Alkaline Phosphatase Total Protein Albumin 05/28/25 05/28/25 00:19 05:17 WBC 12.1 H RBC 3.04 L Hgb 8.6 L Hct 26.0 L MCV 85.5 MCH 28.3 MCHC 33.1 RDW 14.9 H Plt Count 172 MPV 11.4 H Immature Gran % (Auto) 0.5 Neut % (Auto) 84.4 H Lymph % (Auto) 6.6 L [place] % (Auto) 7.3 Eos % (Auto) 0.9 Baso % (Auto) 0.3 Lymph # (Auto) 0.80 L [place] # (Auto) 0.9 H Eos # (Auto) 0.1 Baso # (Auto) 0.0 Abs Immat Gran (auto) 0.06 H Absolute Neuts (auto) 10.2 H Absolute Nucleated RBC 0.000 Nucleated RBC % 0.0 Sodium 125 L 125 L Potassium 3.8 Chloride 95 L Carbon Dioxide 22 Anion Gap 8 BUN 11 Creatinine 0.83 Estim Creat Clear Calc 74 Estimated GFR > 60 Glucose 115 H Calcium 9.1 Magnesium 1.8 Iron 18 L TIBC 210 L % Saturation 9 L Ferritin 248.00 Total Bilirubin 0.2 AST 16 L ALT 8 Alkaline Phosphatase 62 Total Protein 6.1 L Albumin 3.4 L Quality VTE Prophylaxis VTE prophylaxis: mechanical ordered and pharmacologic ordered
[2025-05-28 14:59] LABS: Sodium 125 mmol/L (137-145)
[2025-05-28] MEDS: cefTRIAXone 1 GM in SODIUM CHLORIDE 0.9% IV 50 ML 100 ML IVPB (15:54)
[2025-05-28 16:00] VITALS: BP 119/59; PULSE 77; RESP 18; TEMP 36.6; O2SAT 99
[2025-05-28] MEDS: MONTELUKAST SODIUM 10 MG TABLET PO (20:22)
[2025-05-28 20:25] VITALS: BP 116/62; PULSE 69; RESP 16; TEMP 36.2; O2SAT 96
[2025-05-28 23:41] VITALS: BP 138/62; PULSE 73; RESP 18; TEMP 37.4; O2SAT 99
[2025-05-29] MEDS: DESMOPRESSIN ACETATE 4 MCG/ML AMP 2 MCG IV PUSH (04:15)
[2025-05-29 04:28] VITALS: BP 134/61; PULSE 86; RESP 16; TEMP 36.4; O2SAT 99
[2025-05-29] MEDS: BACLOFEN 5 MG TABLET PO ×3 (05:27→19:42)
[2025-05-29 06:06] LABS: Hematocrit 26.6 % (42.0-52.0); Hemoglobin 8.6 g/dL (14.0-18.0); Immature Granulocyte Percent A 0.7 % (0-0.5); Lymphocytes Absolute Auto 1.02 K/mm3 (0.9-3.2); Mean Corpuscular HGB Conc 32.3 g/dl (32-36); Mean Corpuscular Hemoglobin 28.2 pg (26-34); Mean Corpuscular Volume 87.2 fl (80-100); Nucleated Red Blood Cells Absolute Auto 0.000 K/mm3 (0.0-0.012); Nucleated Red Blood Cells Perc 0.0 % (0.0-0.2); Platelet Count Result 180 k/mm3 (150-375); Red Blood Count 3.05 M/mm3 (4.6-6.20); White Blood Count 9.2 K/mm3 (4.5-10.0)
[2025-05-29 06:26] LABS: Alanine Aminotransferase 9 U/L (6-50); Albumin Level 3.6 g/dL (3.5-5.1); Alkaline Phosphatase 53 U/L (38-126); Anion Gap 7 mmol/L (4-12); Aspartate Amino Transferase 21 U/L (17-59); Bilirubin,Total 0.5 mg/dL (0.2-1.3); Blood Urea Nitrogen 10 mg/dL (9-20); Calcium 9.2 mg/dL (8.4-10.2); Carbon Dioxide 24 mmol/L (22-30); Chloride 92 mmol/L (98-107); Estimated CRCL calculation 84 ml/min; Estimated Glomerular Filt Rate > 60; Glucose 98 mg/dL (65-110); Magnesium 1.6 mg/dL (1.6-2.3); Potassium 4.4 mmol/L (3.4-5.0); Sodium 123 mmol/L (137-145); Total Protein 6.5 g/dL (6.3-8.2)
[2025-05-29] MEDS: FLUTICASONE/SALMETEROL 45-21 MCG INHALER 1 PUFF 2 PUFF INHALATION ×2 (07:47→19:12)
[2025-05-29 08:00] VITALS: BP 118/77; PULSE 83; RESP 16; TEMP 36.6; O2SAT 99
[2025-05-29] MEDS: ASPIRIN 81 MG ENTERIC TABLET PO (08:04)
[2025-05-29] MEDS: CYANOCOBALAMIN 1,000 MCG TABLET 2000 MCG PO (08:04)
[2025-05-29] MEDS: GABAPENTIN 300 MG CAPSULE PO ×2 (08:04→13:51)
[2025-05-29] MEDS: LOSARTAN POTASSIUM 50 MG TABLET PO (08:04)
[2025-05-29] MEDS: CHOLECALCIFEROL (VITAMIN D3) 25 MCG (1,000 UNITS) TABLET PO (08:04)
[2025-05-29] MEDS: PRAVASTATIN SODIUM 20 MG TABLET 80 MG PO (08:04)
[2025-05-29] MEDS: FAMOTIDINE 20 MG TABLET PO ×2 (08:04→19:42)
[2025-05-29] MEDS: ENOXAPARIN 40 MG/0.4 ML SYRINGE SUB-Q (08:04)
[2025-05-29] MEDS: DOXYCYCLINE HYCLATE 100 MG TABLET PO ×2 (08:04→19:42)
[2025-05-29] MEDS: DORZOLAMIDE/TIMOLOL OPHTH SOL 10 ML BOTTLE 1 DROP LEFT EYE ×3 (08:05→17:38)
--- NOTE | 2025-05-29 10:50 | P.PNNP_ITS ---
Progress Note: A&P Assessment and Plan (1) Hyponatremia: Code(s): E87.1 - Hypo-osmolality and hyponatremia Status: Acute Assessment and Plan: * resolving if not stabilizing * acute on chronic * baseline sodium runs around 121 - 131mmol/L * noted history that dates back ~ 4 years ago * sodium levels on previous ER visits noted * acute drop due to: * further increase in free water intake in an attempt to treat hiccups * pneumonia * chronic hyponatremia due to: * excessive free water intake (primary reason) * intermittent thorazine use * underlying lung disease(?) * evidence of overcorrection is noted on admission * this was stabilized with the use several doses of DDAVP and D5W IVFs along with easing up on his fluid restriction * on fluid restriction * follow trend of repeat sodiums (2) Pneumonia: Qualifiers: Laterality: left Lung location: lower lobe of lung Pneumonia type: due to unspecified organism Qualified Code(s): J18.9 - Pneumonia, unspecified organism Code(s): J18.9 - Pneumonia, unspecified organism Status: Acute Assessment and Plan: * as suggested by admission CXR * no evidence of hypoxia * follow cultures * on antibiotics (3) Anemia: Code(s): D64.9 - Anemia, unspecified Status: Acute Assessment and Plan: * low H/H noted * anemia studies demonstrate iron deficiency * s/p IV venofer * follow trend of H/H (4) Hypertension: Code(s): I10 - Essential (primary) hypertension Status: Chronic Assessment and Plan: * reasonable control * follow trend of hemodynamics (5) Chronic hiccups: Code(s): R06.6 - Hiccough Status: Chronic Assessment and Plan: * chronic issue * on scheduled thorazine as well as baclofen and gabapentin * continue supportive therapy (6) Weakness: Code(s): R53.1 - Weakness Status: Acute Assessment and Plan: * due to low sodium (?) and pneumonia * PT/OT as tolerated Will continue to follow. L Subjective Date/time seen: 05/29/25 10:50 Interval history: Follow-up for acute on chronic hyponatremia. No apparent distress noted at this time; reported had choking spell with eating yesterday but this has not recurred; no other issues/events overnight or earlier this morning; sodium slowly improving at this time. Exam 2 Narrative: General: WD/WN male in NAD Heart: normal S1 and S2; no rub Lungs: clear anteriorly Abdomen: soft, nontender, nondistended, positive bowel sounds Extremities: no cyanosis or clubbing; no edema Skin: warm and dry Objective Data Vital Signs Vital Signs: Vital Signs Temp Pulse Resp BP Pulse Ox O2 Del Method 05/29/25 09:36 Room Air 05/29/25 08:00 97.8 F 83 16 118/77 99 05/29/25 08:00 99 Room Air 05/29/25 04:28 97.6 F 86 16 134/61 99 05/28/25 23:41 99.3 F 73 18 138/62 99 05/28/25 20:25 97.2 F L 69 16 116/62 96 05/28/25 20:23 Room Air 05/28/25 16:00 97.9 F 77 18 119/59 L 99 Intake/Output Intake/Output: Intake & Output 05/26/25 05/27/25 05/28/25 05/29/25 23:59 23:59 23:59 23:59 Intake Total 297 573 2595 910 Balance 079 270 2407 910 Meds/Results Medications: Active Medications Generic Name Dose Route Start Last Admin Trade Name Freq PRN Reason Stop Dose Admin Acetaminophen 650 mg 05/27/25 09:12 05/28/25 07:57 Acetaminophen 325 Mg Tablet PO 650 mg Q6H PRN Administration Mild Pain (1-3) or Fever Albuterol 1 puff 05/26/25 21:03 Albuterol Sulfate (*Sp) Aerosol 1 Puff INHALATION QIDRT PRN Shortness Of Breath Or Wheezing Aspirin 81 mg 05/27/25 09:00 05/29/25 08:04 Aspirin 81 Mg Enteric Tablet PO 81 mg DAILY PASHA Administration Baclofen 5 mg 05/26/25 22:00 05/29/25 13:51 Baclofen 5 Mg Tablet PO 5 mg Q8HR PASHA Administration Chlorpromazine HCl 25 mg 05/26/25 21:05 05/29/25 11:18 Chlorpromazine Hcl 25 Mg Tablet PO 25 mg Q6HR PASHA Administration Cyanocobalamin 2,000 mcg 05/27/25 09:00 05/29/25 08:04 Cyanocobalamin 1,000 Mcg Tablet PO 2,000 mcg DAILY PASHA Administration Dorzolamide/Timolol 1 drop 05/27/25 09:00 05/29/25 13:51 Dorzolamide/Timolol Ophth [place] 10 Ml Bottle LEFT EYE 1 drop TID PASHA Administration Doxycycline Hyclate 100 mg 05/27/25 09:00 05/29/25 08:04 Doxycycline Hyclate 100 Mg Tablet PO 100 mg Q12HR PASHA Administration Enoxaparin Sodium 40 mg 05/27/25 09:00 05/29/25 08:04 Enoxaparin 40 Mg/0.4 Ml Syringe SUB-Q 40 mg DAILY PASHA Administration Famotidine 20 mg 05/27/25 09:00 05/29/25 08:04 Famotidine 20 Mg Tablet PO 20 mg Q12HR PASHA Administration Gabapentin 300 mg 05/27/25 09:00 05/29/25 13:51 Gabapentin 300 Mg Capsule PO 300 mg TID PASHA Administration Ceftriaxone Sodium 1 gm/ 50 mls @ 100 mls/hr 05/27/25 16:00 05/28/25 15:54 Sodium Chloride IVPB 100 mls/hr Q24H PASHA Administration Losartan Potassium 50 mg 05/27/25 09:00 05/29/25 08:04 Losartan Potassium 50 Mg Tablet PO 50 mg DAILY PASHA Administration Montelukast Sodium 10 mg 05/27/25 21:00 05/28/25 20:22 Montelukast Sodium 10 Mg Tablet PO 10 mg HS PASHA Administration Pravastatin Sodium 80 mg 05/27/25 09:00 05/29/25 08:04 Pravastatin Sodium 20 Mg Tablet PO 80 mg DAILY PASHA Administration Fluticasone/Salmeterol 2 puff 05/27/25 08:00 05/29/25 07:47 Fluticasone/Salmeterol 45-21 Mcg Inhaler 1 Puff INHALATION 2 puff Q12HRT PASHA Administration Vitamin D 25 mcg 05/27/25 09:00 05/29/25 08:04 Cholecalciferol (Vitamin D3) 25 Mcg (1,000 Units) Tablet PO 25 mcg DAILY PASHA Administration Radiology Results: ITS Impressions Chest X-Ray 05/26/25 15:10 IMPRESSION: 1. Mild increased initial pattern in the left mid to lower lung zone which could represent asymmetric mild pulmonary edema or pneumonia. Labs Labs: Laboratory Tests 05/29/25 05:26 05/29/25 05:26 Calcium 9.2 Magnesium 1.6 Total Bilirubin 0.5 AST 21 ALT 9 Alkaline Phosphatase 53 Total Protein 6.5 Albumin 3.6 Microbiology 05/26/25 16:15 Blood Blood Culture - Preliminary 05/26/25 16:15 Blood Blood Culture - Preliminary
--- NOTE | 2025-05-29 11:11 | ECG_ITS ---
Test Date: 2025-05-29 13:20:40 Measurements Intervals [place] Rate: 79 P: 48 [place]: 145 QRS: 24 QRSD: 84 T: 41 QT: 357 QTc: 411 Interpretive Statements SINUS RHYTHM NORMAL LIMITS Compared to ECG 05/26/2025 14:12:44 No significant changes Electronically Signed On 05-30-2025 15:48:12 CDT by Herman Al M.D.
[2025-05-29 12:00] VITALS: BP 144/63; PULSE 73; RESP 16; TEMP 36.6; O2SAT 99
[2025-05-29] MEDS: cefTRIAXone 1 GM in SODIUM CHLORIDE 0.9% IV 50 ML 100 ML IVPB (15:41)
--- NOTE | 2025-05-29 16:45 | PM.IMPN ---
Progress Note: A&P Assessment and Plan (1) Hyponatremia: Code(s): E87.1 - Hypo-osmolality and hyponatremia Status: Acute (2) Chronic hiccups: Code(s): R06.6 - Hiccough Status: Chronic (3) Psychogenic polydipsia: Code(s): R63.1 - Polydipsia; F54 - Psychological and behavioral factors associated with disorders or diseases classified elsewhere Status: Chronic Plan Denies shortness of breath. Continue ceftriaxone and doxycycline. He is also on chlorpromazine. Repeat EKG QTC 411, acceptable. Monitor leukocytosis. Follow-up blood culture. Try capsaicin cream q.8 hours to see if any improvement of his hiccups. Baclofen and gabapentin were increased but no improvement in the hiccups. Sodium slightly downtrend. Repeat BMP, Nephrology to manage. Patient wishes to be full code. Fluid restriction. Enoxaparin 40 mg subQ q.day. PT/OT. Dietary supplements. Subjective Date/time seen: 05/29/25 16:45 Interval history: No major acute overnight events. Patient denies shortness of breath, pain. Endorses persistent hiccups. Review of Systems Review of Systems: All systems reviewed & are unremarkable except as noted in HPI and below (Subjective) Exam Const: General: comfortable and no acute distress HENMT: Mouth: Yes moist mucous membranes Eyes: Pupils: Equal, round and reactive pupils present Neck: Neck: supple Resp: Effort & Inspection: normal respiratory effort Auscultation: clear to auscultation bilaterally Cardio: Rate: regular rate Rhythm: regular rhythm GI: Inspection: non-distended GI Palp: Yes Soft to palpation Extrem: General: no edema Objective Data Vital Signs Vital Signs: Vital Signs - 24 hr 05/28/25 20:23 05/28/25 20:25 05/28/25 23:41 Temperature 97.2 F L 99.3 F Pulse Rate 69 73 Respiratory Rate 16 18 Blood Pressure 116/62 138/62 Pulse Oximetry 96 99 Oxygen Delivery Room Air 05/29/25 04:28 05/29/25 08:00 05/29/25 08:00 Temperature 97.6 F 97.8 F Pulse Rate 86 83 Respiratory Rate 16 16 Blood Pressure 134/61 118/77 Pulse Oximetry 99 99 99 Oxygen Delivery Room Air 05/29/25 09:36 05/29/25 12:00 Temperature 97.9 F Pulse Rate 73 Respiratory Rate 16 Blood Pressure 144/63 H Pulse Oximetry 99 Oxygen Delivery Room Air Intake/Output Intake/Output: Intake & Output 05/26/25 05/27/25 05/28/25 05/29/25 23:59 23:59 23:59 23:59 Intake Total 497 160 3998 910 Balance 550 794 6805 910 Meds/Results Medications: Active Medications Generic Name Dose Route Start Last Admin Trade Name Freq PRN Reason Stop Dose Admin Acetaminophen 650 mg 05/27/25 09:12 05/28/25 07:57 Acetaminophen 325 Mg Tablet PO 650 mg Q6H PRN Administration Mild Pain (1-3) or Fever Albuterol 1 puff 05/26/25 21:03 Albuterol Sulfate (*Sp) Aerosol 1 Puff INHALATION QIDRT PRN Shortness Of Breath Or Wheezing Aspirin 81 mg 05/27/25 09:00 05/29/25 08:04 Aspirin 81 Mg Enteric Tablet PO 81 mg DAILY PASHA Administration Baclofen 5 mg 05/26/25 22:00 05/29/25 13:51 Baclofen 5 Mg Tablet PO 5 mg Q8HR PASHA Administration Chlorpromazine HCl 25 mg 05/26/25 21:05 05/29/25 11:18 Chlorpromazine Hcl 25 Mg Tablet PO 25 mg Q6HR PASHA Administration Cyanocobalamin 2,000 mcg 05/27/25 09:00 05/29/25 08:04 Cyanocobalamin 1,000 Mcg Tablet PO 2,000 mcg DAILY PASHA Administration Dorzolamide/Timolol 1 drop 05/27/25 09:00 05/29/25 13:51 Dorzolamide/Timolol Ophth [place] 10 Ml Bottle LEFT EYE 1 drop TID PASHA Administration Doxycycline Hyclate 100 mg 05/27/25 09:00 05/29/25 08:04 Doxycycline Hyclate 100 Mg Tablet PO 100 mg Q12HR PASHA Administration Enoxaparin Sodium 40 mg 05/27/25 09:00 05/29/25 08:04 Enoxaparin 40 Mg/0.4 Ml Syringe SUB-Q 40 mg DAILY PASHA Administration Famotidine 20 mg 05/27/25 09:00 05/29/25 08:04 Famotidine 20 Mg Tablet PO 20 mg Q12HR PASHA Administration Gabapentin 300 mg 05/27/25 09:00 05/29/25 13:51 Gabapentin 300 Mg Capsule PO 300 mg TID PASHA Administration Ceftriaxone Sodium 1 gm/ 50 mls @ 100 mls/hr 05/27/25 16:00 05/29/25 15:41 Sodium Chloride IVPB 100 mls/hr Q24H PASHA Administration Losartan Potassium 50 mg 05/27/25 09:00 05/29/25 08:04 Losartan Potassium 50 Mg Tablet PO 50 mg DAILY PASHA Administration Montelukast Sodium 10 mg 05/27/25 21:00 05/28/25 20:22 Montelukast Sodium 10 Mg Tablet PO 10 mg HS PASHA Administration Pravastatin Sodium 80 mg 05/27/25 09:00 05/29/25 08:04 Pravastatin Sodium 20 Mg Tablet PO 80 mg DAILY PASHA Administration Fluticasone/Salmeterol 2 puff 05/27/25 08:00 05/29/25 07:47 Fluticasone/Salmeterol 45-21 Mcg Inhaler 1 Puff INHALATION 2 puff Q12HRT PASHA Administration Vitamin D 25 mcg 05/27/25 09:00 05/29/25 08:04 Cholecalciferol (Vitamin D3) 25 Mcg (1,000 Units) Tablet PO 25 mcg DAILY PASHA Administration Radiology Results: ITS Impressions Chest X-Ray 05/26/25 15:10 IMPRESSION: 1. Mild increased initial pattern in the left mid to lower lung zone which could represent asymmetric mild pulmonary edema or pneumonia. Labs Labs: Laboratory Results - last 24 hr 05/29/25 05:26 WBC 9.2 RBC 3.05 L Hgb 8.6 L Hct 26.6 L MCV 87.2 MCH 28.2 MCHC 32.3 RDW 14.9 H Plt Count 180 MPV 11.4 H Immature Gran % (Auto) 0.7 H Neut % (Auto) 81.0 H Lymph % (Auto) 11.1 L [place] % (Auto) 5.1 Eos % (Auto) 1.6 Baso % (Auto) 0.5 Lymph # (Auto) 1.02 [place] # (Auto) 0.5 Eos # (Auto) 0.2 Baso # (Auto) 0.1 Abs Immat Gran (auto) 0.06 H Absolute Neuts (auto) 7.5 H Absolute Nucleated RBC 0.000 Nucleated RBC % 0.0 Sodium 123 L Potassium 4.4 Chloride 92 L Carbon Dioxide 24 Anion Gap 7 BUN 10 Creatinine 0.73 Estim Creat Clear Calc 84 Estimated GFR > 60 Glucose 98 Calcium 9.2 Magnesium 1.6 Total Bilirubin 0.5 AST 21 ALT 9 Alkaline Phosphatase 53 Total Protein 6.5 Albumin 3.6
--- NOTE | 2025-05-29 17:48 | PC.NURSE ---
Patient started coughing while eating chicken then puked it up. Dr Ravi notified. Chest xray ordered
[2025-05-29] MEDS: metroNIDAZOLE 500 MG/ISO 100ML 500 MG/100 ML BAG 100 MG IVPB (18:09)
[2025-05-29 18:52] LABS: Anion Gap 9 mmol/L (4-12); Blood Urea Nitrogen 11 mg/dL (9-20); Calcium 9.5 mg/dL (8.4-10.2); Carbon Dioxide 23 mmol/L (22-30); Chloride 89 mmol/L (98-107); Estimated CRCL calculation 75 ml/min; Estimated Glomerular Filt Rate > 60; Glucose 117 mg/dL (65-110); Potassium 4.6 mmol/L (3.4-5.0); Sodium 121 mmol/L (137-145)
[2025-05-29 19:14] VITALS: PULSE 75; RESP 20
[2025-05-29] MEDS: MONTELUKAST SODIUM 10 MG TABLET PO (19:42)
[2025-05-29] MEDS: CAPSAICIN 0.025% CREAM 60 GM TUBE 1 APPLIC TOPICAL (19:43)
[2025-05-29 20:04] VITALS: BP 148/66; PULSE 69; RESP 16; TEMP 36.4; O2SAT 99
[2025-05-29] MEDS: SODIUM CHLORIDE 1 GM TABLET PO (22:58)
[2025-05-30] VITALS (9 sets, daily range): BP systolic 100–149; BP diastolic 54–90; PULSE 65–100; RESP 18–20; TEMP 36.4–37; O2SAT 91–100
[2025-05-30] MEDS: metroNIDAZOLE 500 MG/ISO 100ML 500 MG/100 ML BAG 100 MG IVPB ×3 (01:14→17:17)
[2025-05-30] MEDS: BACLOFEN 5 MG TABLET PO ×3 (06:15→21:00)
[2025-05-30] MEDS: CAPSAICIN 0.025% CREAM 60 GM TUBE 1 APPLIC TOPICAL ×3 (06:16→23:39)
[2025-05-30 06:53] LABS: Hematocrit 27.5 % (42.0-52.0); Hemoglobin 9.2 g/dL (14.0-18.0); Immature Granulocyte Percent A 0.3 % (0-0.5); Lymphocytes Absolute Auto 0.57 K/mm3 (0.9-3.2); Mean Corpuscular HGB Conc 33.5 g/dl (32-36); Mean Corpuscular Hemoglobin 28.2 pg (26-34); Mean Corpuscular Volume 84.4 fl (80-100); Nucleated Red Blood Cells Absolute Auto 0.000 K/mm3 (0.0-0.012); Nucleated Red Blood Cells Perc 0.0 % (0.0-0.2); Platelet Count Result 200 k/mm3 (150-375); Red Blood Count 3.26 M/mm3 (4.6-6.20); White Blood Count 11.4 K/mm3 (4.5-10.0)
[2025-05-30 07:08] LABS: Anion Gap 9 mmol/L (4-12); Blood Urea Nitrogen 9 mg/dL (9-20); Calcium 9.2 mg/dL (8.4-10.2); Carbon Dioxide 22 mmol/L (22-30); Chloride 93 mmol/L (98-107); Estimated CRCL calculation 89 ml/min; Estimated Glomerular Filt Rate > 60; Glucose 105 mg/dL (65-110); Potassium 4.1 mmol/L (3.4-5.0); Sodium 124 mmol/L (137-145)
[2025-05-30] MEDS: FLUTICASONE/SALMETEROL 45-21 MCG INHALER 1 PUFF 2 PUFF INHALATION ×2 (08:39→20:19)
[2025-05-30] MEDS: LOSARTAN POTASSIUM 50 MG TABLET PO (09:32)
[2025-05-30] MEDS: FAMOTIDINE 20 MG TABLET PO ×2 (09:32→20:59)
[2025-05-30] MEDS: DOXYCYCLINE HYCLATE 100 MG TABLET PO ×2 (09:32→20:59)
[2025-05-30] MEDS: CYANOCOBALAMIN 1,000 MCG TABLET 2000 MCG PO (09:33)
[2025-05-30] MEDS: ASPIRIN 81 MG ENTERIC TABLET PO (09:33)
[2025-05-30] MEDS: GABAPENTIN 300 MG CAPSULE PO ×3 (09:33→16:38)
[2025-05-30] MEDS: CHOLECALCIFEROL (VITAMIN D3) 25 MCG (1,000 UNITS) TABLET PO (09:33)
[2025-05-30] MEDS: PRAVASTATIN SODIUM 20 MG TABLET 80 MG PO (09:33)
[2025-05-30] MEDS: SODIUM CHLORIDE 1 GM TABLET PO (09:33)
[2025-05-30] MEDS: ENOXAPARIN 40 MG/0.4 ML SYRINGE SUB-Q (09:33)
[2025-05-30] MEDS: DORZOLAMIDE/TIMOLOL OPHTH SOL 10 ML BOTTLE 1 DROP LEFT EYE ×3 (09:41→16:38)
[2025-05-30] MEDS: ACETAMINOPHEN 325 MG TABLET 650 MG PO (11:19)
--- NOTE | 2025-05-30 12:28 | P.PNNP_ITS ---
Progress Note: A&P Assessment and Plan (1) Hyponatremia: Code(s): E87.1 - Hypo-osmolality and hyponatremia Status: Acute Assessment and Plan: * resolving if not stabilizing * acute on chronic * baseline sodium runs around 121 - 131mmol/L * noted history that dates back ~ 4 years ago * sodium levels on previous ER visits noted * acute drop due to: * further increase in free water intake in an attempt to treat hiccups * pneumonia * chronic hyponatremia due to: * excessive free water intake (primary reason) * intermittent thorazine use * underlying lung disease(?) * evidence of overcorrection is noted on admission * this was stabilized with the use several doses of DDAVP and D5W IVFs along with easing up on his fluid restriction * on fluid restriction -- will ease up to avoid further over-correction * follow trend of repeat sodiums (2) Pneumonia: Qualifiers: Laterality: left Lung location: lower lobe of lung Pneumonia type: due to unspecified organism Qualified Code(s): J18.9 - Pneumonia, unspecified organism Code(s): J18.9 - Pneumonia, unspecified organism Status: Acute Assessment and Plan: * as suggested by admission CXR * no evidence of hypoxia * follow cultures * on antibiotics (3) Anemia: Code(s): D64.9 - Anemia, unspecified Status: Acute Assessment and Plan: * low H/H noted * anemia studies demonstrate iron deficiency * s/p IV venofer * follow trend of H/H (4) Hypertension: Code(s): I10 - Essential (primary) hypertension Status: Chronic Assessment and Plan: * reasonable control * follow trend of hemodynamics (5) Chronic hiccups: Code(s): R06.6 - Hiccough Status: Chronic Assessment and Plan: * chronic issue * on scheduled thorazine as well as baclofen and gabapentin * continue supportive therapy (6) Weakness: Code(s): R53.1 - Weakness Status: Acute Assessment and Plan: * due to low sodium (?) and pneumonia * PT/OT as tolerated Not opposed to discharge from renal perspective is sodium remains stable and is otherwise medically stable. Will continue to follow. L Subjective Date/time seen: 05/30/25 12:28 Interval history: Follow-up for acute on chronic hyponatremia. No new issues or problems to report at this time; feels reasonably well and has no acute complaints; no apparent distress noted; no other issues/events overnight or earlier this morning; sodium continues to slowly improve with current interventions. Exam 2 Narrative: General: WD/WN male in NAD Heart: normal S1 and S2; no rub Lungs: clear anteriorly Abdomen: soft, nontender, nondistended, positive bowel sounds Extremities: no cyanosis or clubbing; no edema Skin: warm and intact Objective Data Vital Signs Vital Signs: Vital Signs Temp Pulse Resp BP Pulse Ox O2 Del Method 05/30/25 12:00 98.1 F 90 18 116/60 98 05/30/25 08:42 73 20 05/30/25 08:00 Room Air 05/30/25 08:00 98.1 F 88 18 128/64 99 05/30/25 05:10 98.6 F 90 18 122/90 91 05/30/25 00:43 97.5 F L 80 18 149/54 H 100 05/29/25 20:04 97.6 F 69 16 148/66 H 99 05/29/25 20:00 Room Air 05/29/25 19:14 75 20 Intake/Output Intake/Output: Intake & Output 05/27/25 05/28/25 05/29/25 05/30/25 23:59 23:59 23:59 23:59 Intake Total 930 2270 1300 850 Balance 930 2270 1300 850 Meds/Results Medications: Active Medications Generic Name Dose Route Start Last Admin Trade Name Freq PRN Reason Stop Dose Admin Acetaminophen 650 mg 05/27/25 09:12 05/30/25 11:19 Acetaminophen 325 Mg Tablet PO 650 mg Q6H PRN Administration Mild Pain (1-3) or Fever Albuterol 1 puff 05/26/25 21:03 Albuterol Sulfate (*Sp) Aerosol 1 Puff INHALATION QIDRT PRN Shortness Of Breath Or Wheezing Aspirin 81 mg 05/27/25 09:00 05/30/25 09:33 Aspirin 81 Mg Enteric Tablet PO 81 mg DAILY PASHA Administration Baclofen 5 mg 05/26/25 22:00 05/30/25 14:16 Baclofen 5 Mg Tablet PO 5 mg Q8HR PASHA Administration Capsaicin 1 applic 05/29/25 22:00 05/30/25 14:16 Capsaicin 0.025% Cream 60 Gm Tube TOPICAL 1 applic Q8HR PASHA Administration Chlorpromazine HCl 25 mg 05/26/25 21:05 05/30/25 17:17 Chlorpromazine Hcl 25 Mg Tablet PO 25 mg Q6HR PASHA Administration Cyanocobalamin 2,000 mcg 05/27/25 09:00 05/30/25 09:33 Cyanocobalamin 1,000 Mcg Tablet PO 2,000 mcg DAILY PASHA Administration Dorzolamide/Timolol 1 drop 05/27/25 09:00 05/30/25 16:38 Dorzolamide/Timolol Ophth [place] 10 Ml Bottle LEFT EYE 1 drop TID PASHA Administration Doxycycline Hyclate 100 mg 05/27/25 09:00 05/30/25 09:32 Doxycycline Hyclate 100 Mg Tablet PO 05/30/25 21:01 100 mg Q12HR PASHA Administration Enoxaparin Sodium 40 mg 05/27/25 09:00 05/30/25 09:33 Enoxaparin 40 Mg/0.4 Ml Syringe SUB-Q 40 mg DAILY PASHA Administration Famotidine 20 mg 05/27/25 09:00 05/30/25 09:32 Famotidine 20 Mg Tablet PO 20 mg Q12HR PASHA Administration Gabapentin 300 mg 05/27/25 09:00 05/30/25 16:38 Gabapentin 300 Mg Capsule PO 300 mg TID PASHA Administration Ceftriaxone Sodium 1 gm/ 50 mls @ 100 mls/hr 05/27/25 16:00 05/30/25 17:17 Sodium Chloride IVPB Infused Q24H PASHA Infusion Metronidazole 500 mg in 100 mls @ 100 mls/hr 05/29/25 18:00 05/30/25 17:17 Flagyl 500 Mg/Iso Soln 100 Ml IVPB 100 mls/hr Q8H PASHA Administration Losartan Potassium 50 mg 05/27/25 09:00 05/30/25 09:32 Losartan Potassium 50 Mg Tablet PO 50 mg DAILY PASHA Administration Montelukast Sodium 10 mg 05/27/25 21:00 05/29/25 19:42 Montelukast Sodium 10 Mg Tablet PO 10 mg HS PASHA Administration Pravastatin Sodium 80 mg 05/27/25 09:00 05/30/25 09:33 Pravastatin Sodium 20 Mg Tablet PO 80 mg DAILY PASHA Administration Fluticasone/Salmeterol 2 puff 05/27/25 08:00 05/30/25 08:39 Fluticasone/Salmeterol 45-21 Mcg Inhaler 1 Puff INHALATION 2 puff Q12HRT PASHA Administration Vitamin D 25 mcg 05/27/25 09:00 05/30/25 09:33 Cholecalciferol (Vitamin D3) 25 Mcg (1,000 Units) Tablet PO 25 mcg DAILY PASHA Administration Radiology Results: ITS Impressions Chest X-Ray 05/29/25 18:02 IMPRESSION: 1. Improving but persistent left basilar atelectasis and/or pneumonitis. Labs Labs: Laboratory Tests 05/30/25 06:09 05/30/25 12:21 05/29/25 05/30/25 18:34 06:09 Sodium 121 L 124 L Potassium 4.6 4.1 Chloride 89 L 93 L Carbon Dioxide 23 22 Anion Gap 9 9 BUN 11 9 Creatinine 0.82 0.68 L Estim Creat Clear Calc 75 89 Estimated GFR > 60 > 60 Glucose 117 H 105 Calcium 9.5 9.2 Microbiology 05/26/25 16:15 Blood Blood Culture - Preliminary 05/26/25 16:15 Blood Blood Culture - Preliminary
[2025-05-30 13:07] LABS: Sodium 129 mmol/L (137-145)
[2025-05-30] MEDS: cefTRIAXone 1 GM in SODIUM CHLORIDE 0.9% IV 50 ML 100 ML IVPB (16:38)
--- NOTE | 2025-05-30 17:07 | P.PNIM_ITS ---
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 Chest x-ray shortly after did not reveal abnormalities. Denies shortness of breath, cough, fever, chest pain. Continue ceftriaxone and doxycycline. Metronidazole has been added. Leukocytosis note today at 11.4 K WBC. Continue to trend, check procalcitonin as well. Follow-up blood culture. He is also on chlorpromazine. Repeat EKG QTC 411, acceptable. Started capsaicin cream q.8 hours on his epigastrium on 05/29/2025, since this may have helped his hiccups a little bit. Baclofen and gabapentin were increased this admission as well. Sodium stable. Continue to trend BMP. Nephrology following . Patient wishes to be full code. Fluid restriction. Enoxaparin 40 mg subQ q.day. PT/OT. Dietary supplements. Subjective Date/time seen: 05/30/25 17:07 Interval history: Yesterday evening the patient choked on his food. He was okay after, he reports he has not had any more choking, trouble swallowing, shortness of breath, cough, chest pain, fever. Review of Systems Review of Systems: All systems reviewed & are unremarkable except as noted in HPI and below (Subjective) Exam Const: General: comfortable and no acute distress HENMT: Mouth: Yes moist mucous membranes Eyes: Pupils: Equal, round and reactive pupils present Neck: Neck: supple Resp: Effort & Inspection: normal respiratory effort Auscultation: clear to auscultation bilaterally Cardio: Rate: regular rate Rhythm: regular rhythm GI: Inspection: non-distended GI Palp: Yes Soft to palpation Extrem: General: no edema Objective Data Vital Signs Vital Signs: Vital Signs - 24 hr 05/29/25 19:14 05/29/25 20:00 05/29/25 20:04 Temperature 97.6 F Pulse Rate 75 69 Respiratory Rate 20 16 Blood Pressure 148/66 H Pulse Oximetry 99 Oxygen Delivery Room Air 05/30/25 00:43 05/30/25 05:10 05/30/25 08:00 Temperature 97.5 F L 98.6 F 98.1 F Pulse Rate 80 90 88 Respiratory Rate 18 18 18 Blood Pressure 149/54 H 122/90 128/64 Pulse Oximetry 100 91 99 Oxygen Delivery 05/30/25 08:00 05/30/25 08:42 05/30/25 12:00 Temperature 98.1 F Pulse Rate 73 90 Respiratory Rate 20 18 Blood Pressure 116/60 Pulse Oximetry 98 Oxygen Delivery Room Air Intake/Output Intake/Output: Intake & Output 05/27/25 05/28/25 05/29/25 05/30/25 23:59 23:59 23:59 23:59 Intake Total 930 2270 1300 800 Balance 930 2270 1300 800 Meds/Results Medications: Active Medications Generic Name Dose Route Start Last Admin Trade Name Freq PRN Reason Stop Dose Admin Acetaminophen 650 mg 05/27/25 09:12 05/30/25 11:19 Acetaminophen 325 Mg Tablet PO 650 mg Q6H PRN Administration Mild Pain (1-3) or Fever Albuterol 1 puff 05/26/25 21:03 Albuterol Sulfate (*Sp) Aerosol 1 Puff INHALATION QIDRT PRN Shortness Of Breath Or Wheezing Aspirin 81 mg 05/27/25 09:00 05/30/25 09:33 Aspirin 81 Mg Enteric Tablet PO 81 mg DAILY PASHA Administration Baclofen 5 mg 05/26/25 22:00 05/30/25 14:16 Baclofen 5 Mg Tablet PO 5 mg Q8HR PASHA Administration Capsaicin 1 applic 05/29/25 22:00 05/30/25 14:16 Capsaicin 0.025% Cream 60 Gm Tube TOPICAL 1 applic Q8HR PASHA Administration Chlorpromazine HCl 25 mg 05/26/25 21:05 05/30/25 11:21 Chlorpromazine Hcl 25 Mg Tablet PO 25 mg Q6HR PASHA Administration Cyanocobalamin 2,000 mcg 05/27/25 09:00 05/30/25 09:33 Cyanocobalamin 1,000 Mcg Tablet PO 2,000 mcg DAILY PASHA Administration Dorzolamide/Timolol 1 drop 05/27/25 09:00 05/30/25 16:38 Dorzolamide/Timolol Ophth Shannon 10 Ml Bottle LEFT EYE 1 drop TID PASHA Administration Doxycycline Hyclate 100 mg 05/27/25 09:00 05/30/25 09:32 Doxycycline Hyclate 100 Mg Tablet PO 05/30/25 21:01 100 mg Q12HR PASHA Administration Enoxaparin Sodium 40 mg 05/27/25 09:00 05/30/25 09:33 Enoxaparin 40 Mg/0.4 Ml Syringe SUB-Q 40 mg DAILY PASHA Administration Famotidine 20 mg 05/27/25 09:00 05/30/25 09:32 Famotidine 20 Mg Tablet PO 20 mg Q12HR PASHA Administration Gabapentin 300 mg 05/27/25 09:00 05/30/25 16:38 Gabapentin 300 Mg Capsule PO 300 mg TID PASHA Administration Ceftriaxone Sodium 1 gm/ 50 mls @ 100 mls/hr 05/27/25 16:00 05/30/25 16:38 Sodium Chloride IVPB 100 mls/hr Q24H PASHA Administration Metronidazole 500 mg in 100 mls @ 100 mls/hr 05/29/25 18:00 05/30/25 10:35 Flagyl 500 Mg/Iso Soln 100 Ml IVPB Infused Q8H PASHA Infusion Losartan Potassium 50 mg 05/27/25 09:00 05/30/25 09:32 Losartan Potassium 50 Mg Tablet PO 50 mg DAILY PASHA Administration Montelukast Sodium 10 mg 05/27/25 21:00 05/29/25 19:42 Montelukast Sodium 10 Mg Tablet PO 10 mg HS PASHA Administration Pravastatin Sodium 80 mg 05/27/25 09:00 05/30/25 09:33 Pravastatin Sodium 20 Mg Tablet PO 80 mg DAILY PASHA Administration Fluticasone/Salmeterol 2 puff 05/27/25 08:00 05/30/25 08:39 Fluticasone/Salmeterol 45-21 Mcg Inhaler 1 Puff INHALATION 2 puff Q12HRT PASHA Administration Vitamin D 25 mcg 05/27/25 09:00 05/30/25 09:33 Cholecalciferol (Vitamin D3) 25 Mcg (1,000 Units) Tablet PO 25 mcg DAILY PASHA Administration Radiology Results: ITS Impressions Chest X-Ray 05/29/25 18:02 IMPRESSION: 1. Improving but persistent left basilar atelectasis and/or pneumonitis. Labs Labs: Laboratory Results - last 24 hr 05/29/25 05/30/25 05/30/25 18:34 06:09 12:41 WBC 11.4 H RBC 3.26 L Hgb 9.2 L Hct 27.5 L MCV 84.4 MCH 28.2 MCHC 33.5 RDW 14.5 Plt Count 200 MPV 11.2 H Immature Gran % (Auto) 0.3 Neut % (Auto) 88.9 H Lymph % (Auto) 5.0 L Bartholomew % (Auto) 4.4 Eos % (Auto) 1.1 Baso % (Auto) 0.3 Lymph # (Auto) 0.57 L Bartholomew # (Auto) 0.5 Eos # (Auto) 0.1 Baso # (Auto) 0.0 Abs Immat Gran (auto) 0.04 H Absolute Neuts (auto) 10.2 H Absolute Nucleated RBC 0.000 Nucleated RBC % 0.0 Sodium 121 L 124 L 129 L Potassium 4.6 4.1 Chloride 89 L 93 L Carbon Dioxide 23 22 Anion Gap 9 9 BUN 11 9 Creatinine 0.82 0.68 L Estim Creat Clear Calc 75 89 Estimated GFR > 60 > 60 Glucose 117 H 105 Calcium 9.5 9.2
[2025-05-30 20:43] LABS: Sodium 131 mmol/L (137-145)
[2025-05-30] MEDS: MONTELUKAST SODIUM 10 MG TABLET PO (20:59)
[2025-05-30] MEDS: DEXTROSE 5% IN WATER 500 ML 250 ML IV CONT (23:41)
[2025-05-31] VITALS: BP 107/60; PULSE 76; RESP 18; TEMP 36.7; O2SAT 98
[2025-05-31] MEDS: metroNIDAZOLE 500 MG/ISO 100ML 500 MG/100 ML BAG 100 MG IVPB ×2 (02:13→08:54)
[2025-05-31 04:00] VITALS: BP 102/54; PULSE 75; RESP 20; TEMP 36.6; O2SAT 97
[2025-05-31] MEDS: BACLOFEN 5 MG TABLET PO (05:17)
[2025-05-31] MEDS: CAPSAICIN 0.025% CREAM 60 GM TUBE 1 APPLIC TOPICAL (05:17)
[2025-05-31 06:16] LABS: Hematocrit 28.8 % (42.0-52.0); Hemoglobin 9.3 g/dL (14.0-18.0); Immature Granulocyte Percent A 0.5 % (0-0.5); Lymphocytes Absolute Auto 1.26 K/mm3 (0.9-3.2); Mean Corpuscular HGB Conc 32.3 g/dl (32-36); Mean Corpuscular Hemoglobin 28.2 pg (26-34); Mean Corpuscular Volume 87.3 fl (80-100); Nucleated Red Blood Cells Absolute Auto 0.000 K/mm3 (0.0-0.012); Nucleated Red Blood Cells Perc 0.0 % (0.0-0.2); Platelet Count Result 223 k/mm3 (150-375); Red Blood Count 3.30 M/mm3 (4.6-6.20); White Blood Count 7.9 K/mm3 (4.5-10.0)
[2025-05-31 06:41] LABS: Anion Gap 9 mmol/L (4-12); Blood Urea Nitrogen 20 mg/dL (9-20); Calcium 9.4 mg/dL (8.4-10.2); Carbon Dioxide 23 mmol/L (22-30); Chloride 98 mmol/L (98-107); Estimated CRCL calculation 53 ml/min; Estimated Glomerular Filt Rate > 60; Glucose 87 mg/dL (65-110); Magnesium 2.1 mg/dL (1.6-2.3); Potassium 4.2 mmol/L (3.4-5.0); Sodium 130 mmol/L (137-145)
[2025-05-31 06:53] LABS: Procalcitonin 0.1 ng/mL
[2025-05-31 07:32] VITALS: PULSE 75; RESP 18
[2025-05-31] MEDS: FLUTICASONE/SALMETEROL 45-21 MCG INHALER 1 PUFF 2 PUFF INHALATION (07:32)
[2025-05-31 07:35] VITALS: PULSE 65; RESP 18; O2SAT 90
[2025-05-31 08:00] VITALS: BP 116/54; PULSE 80; RESP 20; TEMP 36.7; O2SAT 95
[2025-05-31] MEDS: ENOXAPARIN 40 MG/0.4 ML SYRINGE SUB-Q (08:19)
[2025-05-31] MEDS: GABAPENTIN 300 MG CAPSULE PO ×2 (08:20→12:12)
[2025-05-31] MEDS: CYANOCOBALAMIN 1,000 MCG TABLET 2000 MCG PO (08:20)
[2025-05-31] MEDS: ASPIRIN 81 MG ENTERIC TABLET PO (08:20)
[2025-05-31] MEDS: LOSARTAN POTASSIUM 50 MG TABLET PO (08:20)
[2025-05-31] MEDS: FAMOTIDINE 20 MG TABLET PO (08:20)
[2025-05-31] MEDS: PRAVASTATIN SODIUM 20 MG TABLET 80 MG PO (08:20)
[2025-05-31] MEDS: CHOLECALCIFEROL (VITAMIN D3) 25 MCG (1,000 UNITS) TABLET PO (08:20)
[2025-05-31] MEDS: DORZOLAMIDE/TIMOLOL OPHTH SOL 10 ML BOTTLE 1 DROP LEFT EYE ×2 (08:20→12:13)
[2025-05-31] MEDS: ACETAMINOPHEN 325 MG TABLET 650 MG PO (08:54)
--- NOTE | 2025-05-31 09:33 | PM.DS ---
DS: Admitting Diagnosis Discharge Date 05/31/2025 Admitting Diagnosis Weakness DS: Discharge Diagnosis Discharge Diagnosis (1) Acute hyponatremia: Code(s): E87.1 - Hypo-osmolality and hyponatremia Status: Acute (2) Chronic hiccups: Code(s): R06.6 - Hiccough Status: Chronic (3) Weakness: Code(s): R53.1 - Weakness Status: Acute (4) Aspiration pneumonia: Code(s): J69.0 - Pneumonitis due to inhalation of food and vomit Status: Acute DS: Summary Hospital Course Hospital Course: 64-year-old male history of prior tobacco abuse, esophagitis, chronic hiccups, hyponatremia, hyperlipidemia, hypertension, psychogenic polydipsia presents to [facility] on 05/26/2025 with a complaint of weakness. He has been drinking a lot of water trying to get rid of his hiccups which he does chronically in his mental multiple times to take caution with that. He denied any other symptoms. He had leukocytosis. Sodium 116. Chest x-ray suggested pneumonia left side. He was seen by therapy and discharge, weakness improved. He was seen by Nephrology. He was given DDAVP and D5 water and fluid restriction which corrected his acute hyponatremia. Patient has been counseled about the excessive intake of water. He had pneumonia and he is being treated with ceftriaxone and azithromycin. On 05/29/2025 the patient had a choking episode in afterwards had a elevated white count. He will be discharged with metronidazole and Augmentin to complete a total of a 5 day course. Leukocytosis have resolved and he has no more coughing or shortness of breath. His chlorpromazine, baclofen, gabapentin were all increased to try to alleviate his hiccups. He was given capsaicin cream. He reports none of that helped. Will not discharged on increased dose due to futility. All of his questions and concerns were answered to satisfaction. The patient was full code during the admission. Advised follow with PCP. Time Spent with Patient Time attestation: Total time spent providing and/or coordinating discharge services: Time spent: Greater than 30 minutes Exam Const: General: comfortable and no acute distress HENMT: Mouth: Yes moist mucous membranes Neck: Neck: supple Resp: Effort & Inspection: normal respiratory effort Auscultation: clear to auscultation bilaterally Cardio: Rate: regular rate Rhythm: regular rhythm GI: Inspection: non-distended GI Palp: Yes Soft to palpation Neuro: Motor exam (neuro): 5/5 motor strength present throughout Extrem: General: no edema DS: Data Data Completed and Pending Labs on day of discharge: Labs from last 24 hours 05/31/25 05/30/25 05/30/25 05:09 20:18 12:41 WBC 7.9 RBC 3.30 L Hgb 9.3 L Hct 28.8 L MCV 87.3 MCH 28.2 MCHC 32.3 RDW 15.1 H Plt Count 223 MPV 11.4 H Immature Gran % (Auto) 0.5 Neut % (Auto) 74.2 H Lymph % (Auto) 15.9 L Glascock % (Auto) 6.8 Eos % (Auto) 2.1 Baso % (Auto) 0.5 Lymph # (Auto) 1.26 Glascock # (Auto) 0.5 Eos # (Auto) 0.2 Baso # (Auto) 0.0 Abs Immat Gran (auto) 0.04 H Absolute Neuts (auto) 5.9 Absolute Nucleated RBC 0.000 Nucleated RBC % 0.0 Sodium 130 L 131 L 129 L Potassium 4.2 Chloride 98 Carbon Dioxide 23 Anion Gap 9 BUN 20 D Creatinine 1.18 Estim Creat Clear Calc 53 Estimated GFR > 60 Glucose 87 Calcium 9.4 Magnesium 2.1 Procalcitonin 0.1 Preliminary micro results at discharge 05/26/25 16:15 Blood Culture - Preliminary Blood 05/26/25 16:15 Blood Culture - Preliminary Blood Discharge Plan Discharge Attending physician on discharge: Geno Ravi Consulting providers: Donald Montoya; Michael Wells Discharging Clinician: Geno Ravi Patient Disposition: Home Activity: january shower Diet: as tolerated Patient Instructions: Antibiotic Form Patient Language: Guyanese Stand Alone Forms: General Discharge Information Follow-up/Referrals: Celine,TRAVIS Lawler [Primary Care Provider, Unknown] Discharge Medications: Continued baclofen 5 mg tablet 5 mg PO BID losartan 50 mg tablet 50 mg PO DAILY pravastatin 80 mg tablet 80 mg PO DAILY montelukast 10 mg tablet 10 mg PO HS albuterol sulfate 90 mcg/actuation HFA aerosol inhaler 1 inh inhalation QID PRN (Reason: shortness of breath or wheezing) Qty: 8.5 0RF dorzolamide-timolol 22.3-6.8 mg/mL drops 1 drp LEFT EYE TID gabapentin 300 mg capsule 300 mg PO DAILY budesonide-formoterol 80-4.5 mcg/actuation HFA aerosol inhaler 2 puff INHALATION Q12H pantoprazole 40 mg tablet,delayed release (DR/EC) 40 mg PO BID 30 Days Qty: 60 5RF cyanocobalamin (vitamin B-12) 100 mcg Tablet 2,000 mcg PO DAILY cholecalciferol (vitamin D3) [Vitamin D3] 25 mcg (1,000 unit) Capsule 25 mcg PO DAILY chlorpromazine 25 mg Tablet 25 mg PO Q6H PRN (Reason: Hiccups) Qty: 30 0RF aspirin [Adult Aspirin Regimen] 81 mg tablet,delayed release (DR/EC) 81 mg PO DAILY Discontinued ibuprofen [Advil] 200 mg tablet 600 mg PO BID Date of admission: 05/27/25 09:17 Primary Care Provider: Celine,Nuris Admitting Provider: Michael Wells Attending physician on admission: Michael Wells Condition: Stable Hospitalist MIPS Heart Failure (Exclusion) Patient has history of Heart Transplant or Left Ventricular Assistive Device?: No IF YES, STOP HERE Heart Failure (Qualifier) Patient has current or prior documentation of LVEF less than or equal to 40%, or mod/servere depressed LVSF?: No IF NO, STOP HERE
== END 2025-05-31 14:10 | disposition home or self-care (01) | DRG 194 ==
LOC: ANHED 16:54 → ANH3MEDSUR 17:34
PROVIDERS: Emergency Medicine; Internal Medicine Nephrology; Admitting Provider Internal Medicine; Emergency Provider Physician Assistant; PCP Physician Assistant; Visit Provider General Practice
DX: J18.9 Pneumonia, unspecified organism (principal); E46 Unspecified protein-calorie malnutrition; E87.1 Hypo-osmolality and hyponatremia; M87.851 Other osteonecrosis, right femur; M87.852 Other osteonecrosis, left femur; R06.6 Hiccough; R63.1 Polydipsia; I10 Essential (primary) hypertension; F10.90 Alcohol use, unspecified, uncomplicated; W44.F3XA Food entering into or through a natural orifice, initial encounter; T17.920A Food in respiratory tract, part unspecified causing asphyxiation, initial encounter; J44.89 Other specified chronic obstructive pulmonary disease; E78.5 Hyperlipidemia, unspecified; H40.9 Unspecified glaucoma; D50.9 Iron deficiency anemia, unspecified; H54.8 Legal blindness, as defined in USA; Z68.24 Body mass index [BMI] 24.0-24.9, adult; Z86.0101 Personal history of adenomatous and serrated colon polyps; Z87.19 Personal history of other diseases of the digestive system; Z87.891 Personal history of nicotine dependence
CPT/HCPCS: 36415; 71045; 71046; 80048; 80053; 81001; 82728; 83540; 83550; 83735; 84145; 84295; 85025; 87040; 93005; 94640; 96365; 96366; 96367; 97161; 97165; 99285; A9270; G0378; J0456; J0696; J1650; J1756; J1836; J2597; J7050; J7060

== ENCOUNTER 2025-06-14 17:16 | Inpatient (IN) | payer MEDICARE, SELFPAY ==
--- NOTE | ~2025-06-14 | XR_ITS ---
XR chest 2V 06/14/2025 20:03 Indication: Weakness. Recent pneumonia. Procedure: AP and lateral views of the chest Comparison: 05/29/2025 Findings: Subtle left basilar infiltrates. Heart size normal. Right lung clear. No pleural effusion, edema or pneumothorax. Impression: 1: Persistent left basilar infiltrates which may represent atelectasis/scarring or atypical pneumonia. Reviewed, dictated and finalized at location O. Impression: 1: Persistent left basilar infiltrates which may represent atelectasis/scarring or atypical pneumonia.
[2025-06-14 17:42] VITALS: BP 139/58; PULSE 81; RESP 21; TEMP 36.8; O2SAT 97
--- OUTSIDE RECORDS SUMMARY | 2025-06-14 17:47 | XMS_ITS | Encounter Summary ---
Author Organization [facility] Healthcare Address [address] [place] [address] Care Team Providers Care Flame Annealing Machine Setter Name Role Phone Nuris Berger Primary Care Provider [phone] Jonatan Stokes MD Unavailable [phone] Irma Bajwa MD Unavailable [phone] Ayla Dugan LPN Unavailable [phone] Encounter Details Date Type Department Care Team (Late st Contact Info) Description 03/26/2025 Orders Only [facility] [place] Health Information Management [address] [place] [id number] Scanning, Provider Social History Tobacco Use Types Packs/Day Years Used Date Smoking Tobacco: Former Cigarettes 0.8 40 0 09/1981 - 09/2021 Smokeless Tobacco: Never Alcohol Use Standard Drinks/Week Comments Yes 0 (1 standard drink = 0.6 oz pur e alcohol) social [facility] Utilities Answer Date Recorded In the past 12 months has [employer] electric, gas, oil, or water company threatened [...] week 12/03/2023 How often do you attend [facility] or [facility] services? Patient declined 12/03/2023 Do you belong [...] on file Legal Sex Male 12:22 AM FAMILY PRACTICE DOCTOR Gender Identity Not on file Sexual Orientation [...] on filedocumented in this encounter Care Teams Flame Annealing Machine Setter Relationship Specialty Start Date End Date Nuris Berger PA [address] [facility] [address] [place] [address] PCP - General Internal Medicine 12/28/18 Jonatan Stokes MD [address] [place] [address] Consulting Physician Otolaryngology 03/27/20 Irma Bajwa MD [address] [facility] [place] [address] Consulting Physician Neurology 05/07/22 Ayla Dugan LPN [address] [place] [address] Ventilation Equipment Tender 03/30/25 03/30/25 documented as of this encounter
--- OUTSIDE RECORDS SUMMARY | 2025-06-14 17:47 | XMS_ITS | Clinical Summary ---
Author Organization [facility] Address [address] [place] [address] Care Team Providers Care Material Distributor Name Role Phone Nuris Berger PA-C Primary Care Provider [phone] Source Comments [facility],non-owned Affiliates and Associated Physician Practices is amultiple site organization consisting of ambulatory clinics and hospital sitesin [place], [place], [place] and [place]. This disclosure is being madepursuant to the Care Everywhere program and may not contain all information available regarding this patient. Last updated 18.[facility] Allergies Active Allergy Reactions Criticality Noted Date [...] tablet 3 Active ergocalciferol (Drisdol) 1.25 MG (60506 UT) capsule Take 1 (one) capsule by [...] 11 4 Active trimethoprim-po lymyxin B (Polytrim) 38565-7.1 UNIT/ML-% ophthalmic solution Instill 1 (one) drop [...] Reviewed options for assistance with cessation. Reviewed medical terminologist sequela associated with smoking. Pt declines assistance [...] polyp 05/20/2019 Overview (12/24/2020): [facility]--->2021 Last Assessment & Plan: Recvd colonoscopy and [...] 05/18/2025 Refill [facility] - Ophthalmology [address] [place] [phone] Louis Hansen MD MEDICATION REFILL 04/18/2025 9:00 AM CDT Office Visit [facility] - Ophthalmology [address] [place] [phone] Louis Hansen MD H/O cornea transplant (Primary Dx); Aniridia 04/18/2025 Travel 04/03/2025 Refill [facility] - Ophthalmology [address] [place] [phone] Louis Hansen MD MEDICATION REFILL from Last 3 Months Immunizations Immunization Administration Dates Next Due [place] primary monoval ent 12+ yr 0.3mL Purple [...] Comments Blood Pressure 128/70 08/26/2023 12:43 PM CORRESPONDENCE REVIEW CLERK Pulse 65 08/26/2023 12:43 PM CORRESPONDENCE REVIEW CLERK Temperature 35.9 C (96.7 F) 08/26/2023 12:34 PM CORRESPONDENCE REVIEW CLERK Respiratory Rate 14 08/26/2023 12:43 PM CORRESPONDENCE REVIEW CLERK Oxygen Saturation 98% 08/26/2023 12:34 PM CORRESPONDENCE REVIEW CLERK Inhaled Oxygen Concentration - - Weight 64.9 kg (143 lb) 08/26/2023 9:01 AM CORRESPONDENCE REVIEW CLERK Height 172.7 cm (5' 8) 08/26/2023 9:01 AM CORRESPONDENCE REVIEW CLERK Body Mass Index 21.74 08/26/2023 9:01 AM CORRESPONDENCE REVIEW CLERK Plan of Treatment Upcoming Encounters Date Type Department Care Team (Late st Contact Info) Description 08/07/2025 8:40 AM CORRESPONDENCE REVIEW CLERK [facility] [address] [place] [phone] Tyrel Velez MD [address] [place] [phone] 10/17/2025 9:00 AM CORRESPONDENCE REVIEW CLERK [facility] [address] [place] [phone] Louis Hansen MD [address] [place] [address] [place] [phone] Health Maintenance Due Date Last Done Comments [...] this topic Medical Devices Implanted Type Area Tailman Device Identifier Shelf Expiration Date Model / Serial / Lot Drain Glcm Thk.9mm Blnt Tpr [facility] Flxb - [id number] Implanted:Qty: 1 on 05/04/2018 by Tyrel Velez MD at [facility] Left: Eye [facility] 03/15/2020 7 / [id number] / [id number] Graft Tissue Ttplst Sclr .8x.5cm Lopro - [id number] Implanted:Qty: 1 on 05/04/2018 by Tyrel Velez MD at [facility] Left: Eye [employer] 01/17/2023 [id number] / [id number] / [id number] Impl Opth 250sq Mm Brvldt Magaly 1 Qdrnt - [id number] Implanted:Qty: 1 on 06/16/2023 by Tyrel Velez MD at [facility] Left: Eye [employer] 01/09/2024 [id number] / [id number] / Graft Tissue Ttpl Ioptch Sclr .8x.5cm - [id number] Implanted:Qty: 1 on 06/16/2023 by Tyrel Velez MD at [facility] Left: Eye [employer] 09/19/2027 [id number] / [id number] / Graft Tissue Ttpl Ioptch Sclr .8x.5cm - [id number] Implanted:Qty: 1 on 06/16/2023 by Tyrel Velez MD at [facility] Left: Eye [employer] 09/19/2027 [id number] / [id number] / J Luis Cornea - [id number] Implanted:Qty: 1 on 08/26/2023 by Louis Hansen MD at [facility] Left: Eye [employer] [facility] 09/05/2023 [id number] / [id number] / [id number] Description:Product Numb:[id number] EXP:09-05-2023 DIN:[id number] Insurance AETNA MEDICARE ADV AETNA Advance Directives * Full Code (Latest Code Status on File) Date Activated Date Inactivated Comments 05/04/2018 11:35 AM 05/04/2018 1:21 PM * Full Code Date Activated Date Inactivated Comments 05/04/2018 7:43 AM 05/04/2018 11:35 AM Care Teams Material Distributor Relationship Specialty Start Date End Date Nuris Berger PA-C PCP - General 02/13/20
--- OUTSIDE RECORDS SUMMARY | 2025-06-14 17:47 | XMS_ITS | Clinical Summary ---
Author Organization [facility] Address [facility] [place] [address] Care Team Providers Care Manager Resource Name Role Phone Nuris Berger Primary Care Provider [phone] Allergies No known active allergies Medications albuterol [...] Comments Blood Pressure 120/62 09/04/2021 8:52 AM CLAM DIGGER Pulse 82 09/04/2021 8:52 AM CLAM DIGGER Temperature 36.3 C (97.4 F) 09/04/2021 8:52 AM CLAM DIGGER Respiratory Rate 16 09/04/2021 8:52 AM CLAM DIGGER Oxygen Saturation 97% 09/04/2021 8:52 AM CLAM DIGGER Inhaled Oxygen Concentration - - Weight 64.4 kg (142 lb) 09/04/2021 8:52 AM CLAM DIGGER Height 172.7 cm (5' 8) 09/04/2021 8:52 AM CLAM DIGGER Body Mass Index 21.59 09/04/2021 8:52 AM CLAM DIGGER Plan of Treatment Health Maintenance Due Date Last Done Comments Colorectal Cancer Screening Colonoscopy (10 Years) 1961 Annual Physical 1964 Hepatitis C 1979 DTaP, Tdap and Td Vaccines ( 1 - Tdap) 1980 Pneumococcal Vaccine: 50+ Years (1 of 2 - PCV) 1980 Zoster Vaccines (1 of 2) 2011 COVID-19 Vaccine (3 - 2024-2 6 season) 2025 02/09/2021, 01/05/2021 RSV Immunization or 60+ Years [...] complete this topic Insurance AETNA Care Teams Manager Resource Relationship Specialty Start Date End Date Nuris Berger PA [address] [place], [place] [id number] PCP - General PHYSICIAN COMMERCIAL OR INSTITUTIONAL CLEANER 06/09/21
--- OUTSIDE RECORDS SUMMARY | 2025-06-14 17:47 | XMS_ITS | Data Portability ---
Author Organization JUSTIN TEJINDERKathy Hernandez Address [address] [place] [address] Assessment No assessment recorded. Plan of Treatment Reminders Order Date Submit Date Provider Last Modified By Organization Details Last Modified Time Details Appointments None recorded. Lab PSA, serum or plasma 2016 017 [facility], [address] [place] [address], [address], [place], [address], 7 11:13:39 vitamin D, 25-hydroxy , total, serum 2016 017 [facility], [address] [place] [address], [address], [place], [address], 7 11:13:41 lipid panel, serum 2016 017 [facility], [address] [place] [address], [address], [place], [address], 7 11:13:39 CMP, serum or plasma 2016 017 [facility], [address] [place] [address], [address], [place], [address], 7 11:13:38 CK (creatine kinase), total, serum 2016 017 [facility], [address] [place], [place] [address], [address], [place], [address], 7 11:13:41 HbA1c (hemoglobi n A1c), blood 2016 017 [facility], [address] [facility], [address], [place], [address], 7 11:13:40 Referral ophthalmol ogist referral - please contact patient to schedule kelechi hernandez, thank you 2016 017 [email or web address] Not available 11:35:22 Procedures None recorded. Surgeries None recorded. Imaging None recorded. Medication Orders nicotine 14 mg/24 hr daily transderma l patch 2016 017 [id number], [address] [facility], [place], [place], [id number], 7 10:19:15 losartan 100 mg tablet 2016 017 [facility] #89466, [address] [place], [place], [id number], 7 10:22:24 pravastati n 80 mg tablet 2016 017 [facility] #22794, [address] [place], [place], [id number], 7 10:21:48 Zetia 10 mg tablet 2016 017 [facility] #[id number], [address] [facility], [place], [place], [id number], 7 10:21:48 Patient TargetsNo targets recorded. Patient InstructionsNo instructions recorded. Reason for Referral Veterans' Coordinator Referral for Glaucoma please continue to treat glaucoma. thank you please contact patient to schedule appointment, thank you Referring Physician: Tereso Mathias, [facility] Medicine, Encounter Date: 02/24/2017 Results Created Date Observation Date Name Description Value Unit Range Abnormal Flag Note LastModifiedBy Organization Detail LastModifiedTime 12/04/19 17 12/04/2016 CMP, serum or plasm a glucose, serum 89 mg/dL 65-99 Not Available [facility] ([facility]) [address] [place], [address], 12/04/2016 11:13:38 12/04/19 17 12/04/2016 CMP, serum or plasm a BUN 14 mg/dL 6-24 Not Available [facility] ([facility]) [address] [facility] [place], [address], 12/04/2016 11:13:38 12/04/19 17 12/04/2016 CMP, serum or plasm a creatinine, serum 0.97 mg/dL 0.76-1 .27 Not Available [facility] ([facility]) [address] [facility] [place], [address], 12/04/2016 11:13:38 12/04/19 17 12/04/2016 CMP, serum or plasm a eGFR if nonafricn AM 88 mL/mi n/1.7 3 >59 Not Available [facility] ([facility]) [address] [place], [address], 12/04/2016 11:13:38 12/04/19 17 12/04/2016 CMP, serum or plasm a eGFR if africn AM 101 mL/mi n/1.7 3 >59 Not Available [facility] ([facility]) [address] [place], [address], 12/04/2016 11:13:38 12/04/19 17 12/04/2016 CMP, serum or plasm a BUN/creatini ne ratio 14 9-20 Not Available [facility] ([facility]) [address] [place], [address], 12/04/2016 11:13:38 12/04/19 17 12/04/2016 CMP, serum or plasm a sodium, serum 144 mmol/ L 134-14 4 Not Available [facility] ([facility]) [address] [place], [address], 12/04/2016 11:13:38 12/04/19 17 12/04/2016 CMP, serum or plasm a potassium, serum 4.7 mmol/ L 3.5-5. 2 Not Available [facility] ([facility]) [address] [place], [address], 12/04/2016 11:13:38 12/04/19 17 12/04/2016 CMP, serum or plasm a chloride, serum 103 mmol/ L 96-106 Not Available [facility] ([facility]) [address] [place], [address], 12/04/2016 11:13:38 12/04/19 17 12/04/2016 CMP, serum or plasm a carbon dioxide, total 24 mmol/ L 18-29 Not Available [facility] ([facility]) [address] [place], [address], 12/04/2016 11:13:38 12/04/19 17 12/04/2016 CMP, serum or plasm a calcium, serum 9.2 mg/dL 8.7-10 .2 Not Available [facility] ([facility]) [address] [place], [address], 12/04/2016 11:13:38 12/04/19 17 12/04/2016 CMP, serum or plasm a protein, total, serum 6.7 g/dL 6.0-8. 5 Not Available [facility] ([facility]) [address] [place], [address], 12/04/2016 11:13:38 12/04/19 17 12/04/2016 CMP, serum or plasm a albumin, serum 3.6 g/dL 3.5-5. 5 Not Available [facility] ([facility]) [address] [place], [address], 12/04/2016 11:13:38 12/04/19 17 12/04/2016 CMP, serum or plasm a globulin, total 3.1 g/dL 1.5-4. 5 Not Available [facility] ([facility]) [address] [place], [address], 12/04/2016 11:13:38 12/04/19 17 12/04/2016 CMP, serum or plasm a A/G ratio 1.2 1.2-2. 2 PLE ASE NOTE REFER ENCE INTER MANUEL DAMON E Not Available [facility] ([facility]) [address] [facility] [place], [address], 12/04/2016 11:13:38 12/04/19 17 12/04/2016 CMP, serum or plasm a bilirubin, total 0.3 mg/dL 0.0-1. 2 Not Available [facility] ([facility]) [address] [facility] [place], [address], 12/04/2016 11:13:38 12/04/19 17 12/04/2016 CMP, serum or plasm a alkaline phosphatase, S 53 IU/L 39-117 Not Available [facility] ([facility]) [address] [facility], [place], [address], 12/04/2016 11:13:38 12/04/19 17 12/04/2016 CMP, serum or plasm a AST (SGOT) 6 IU/L 0-40 Not Available [facility] ([facility]) [address] [facility], [place], [address], 12/04/2016 11:13:38 12/04/19 17 12/04/2016 CMP, serum or plasm a ALT (SGPT) 7 IU/L 0-44 Not Available [facility] ([facility]) [address] [facility] [place], [address], 12/04/2016 11:13:38 12/04/19 17 12/04/2016 lipid panel , serum cholesterol, total 103 mg/dL 100-19 9 Not Available [facility] ([facility]) [address] [facility] [place], [address], 12/04/2016 11:13:39 12/04/19 12/04/2016 lipid panel , serum triglyceride s 92 mg/dL 0-149 Not Available [facility] ([facility]) [address] [place], [address], 12/04/2016 11:13:39 12/04/19 17 12/04/2016 lipid panel , serum HDL cholesterol 25 mg/dL >39 below low normal Not Available [facility] ([facility]) [address] [place], [address], 12/04/2016 11:13:39 12/04/19 17 12/04/2016 lipid panel , serum VLDL cholesterol anselmo 18 mg/dL 5-40 Not Available [facility] ([facility]) [address] [place], [address], 12/04/2016 11:13:39 12/04/19 17 12/04/2016 lipid panel , serum LDL cholesterol calc 60 mg/dL 0-99 Not Available [facility] ([facility]) [address] [place], [address], 12/04/2016 11:13:39 12/04/1912/04/2016 lipid panel , serum comment: VACUUM METALIZER 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 6 LDL/H DL RATIO MEN WOMEN 1/2 AVG.R ISK 1.0 1.5 AVG.R ISK 3.6 3.2 2X AVG.R ISK 6.2 5.0 3X AVG.R ISK 8.0 6.1 Not Available [facility] ([facility]) [address] [place], [address], 12/04/2016 11:13:39 12/04/19 17 12/04/2016 PSA, serum or plasm a prostate specific Ag, serum 1.6 NG/mL 0.0-4. 0 OTTO ECLIA METHO DOLOG Y. ACCOR DING TO THE [employer] CAN [facility] [employer] I[facility] N, SERUM PSA SHOUL D DECRE ASE AND REMAI N AT UNDET ECTAB LE LEVEL S AFTER RADIC AL PROST ATECT BOB. THE AUA DEFIN ES BIOCH EMICA L RECUR RENCE AN INITI AL PSA VALUE 0.2 NG/ML OR GREAT ER FOLLO WED BY A SUBSE QUENT CONFI RMATO RY PSA VALUE 0.2 NG/ML OR GREAT ER. VALUE S OBTAI SOWMYA WITH DIFFE RENT ASSAY METHO DS OR KITS CANNO T BE USED INTER DAMON EABLY . RESUL TS CANNO T BE INTER PRETE D ABSOL MAURO EVIDE NCE OF THE PRESE NCE OR ABSEN CE OF LA CAMPO SE. Not Available [facility] ([facility]) [address] [facility], [place], [address], 12/04/2016 11:13:39 12/04/19 17 12/04/2016 HbA1c (hemo globi n A1c), blood hemoglobin A1C 6.3 % 4.8-5. 6 above high normal PRE-D IABET ES: 5.7 - 6.4 DIABE MARIA DEL CARMEN: >6.4 GLYCE JUVENTINO CONTR OL FOR ADULT S WITH DIABE MARIA DEL CARMEN: <7.0 Not Available [facility] ([facility]) [address] [facility], [place], [address], 12/04/2016 11:13:40 12/04/1912/04/2016 vitam in D, 25-hy droxy , total , serum vitamin D, 25-hydroxy 34.4 NG/mL 30.0-1 00.0 VITAM IN D DEFIC IENCY HAS BEEN DEFIN ED BY THE INSTI TUTE OF MEDIC INE AND AN ENDOC RINE SOCIE TY PRACT ICE GUIDE LINE A LEVEL OF SERUM 25-OH VITAM IN D LESS THAN 20 NG/ML (1,2) . THE ENDOC RINE SOCIE TY WENT ON TO FURTH ER DEFIN E VITAM IN D INSUF FICIE NCY A LEVEL BETWE EN 21 AND 29 NG/ML (2). 1. IOM (INST ITUTE OF MEDIC INE). 2010. DIETA RY REFER ENCE INTAK ES FOR CALCI UM AND D. RANCHO TUTTLE DC: [facility] . 2. HEIDE Salazar MF, ALYSSA RAHMAN NC, DAVE OFF-F ERRAR I [place], ET AL. EVALU ATION , TREAT MENT, AND PREVE NTION OF VITAM IN D DEFIC IENCY : AN ENDOC RINE SOCIE TY CLINI ANSELMO PRACT ICE GUIDE LINE. JCEM. 2010; 96(7) :1911 -30. Not Available [facility] ([facility]) [address] [facility], [place], [address], 12/04/2016 11:13:41 12/04/19 17 12/04/2016 CK (crea chuy kinas e), total , serum creatine kinase,total ,serum 62 U/L 24-204 Not Available [facility] ([facility]) [address] [facility], [place], [address], 12/04/2016 11:13:41 09/26/19 16 09/26/2015 imagi ng/di agnos tic resul t No observ ation record ed. [email or web address] Not Available 09/2015 16:44:32 Result Notes None recorded. Problems Name Problem SNOMED Code Status Onset Date Resolution Date Notes Provider Name and Address Organization Details Recorded Time Essential hypertension 70227656 Active Tereso Mathias PA-C Attn: Areli g,[address] [facility], [place], [address], [facility] 6 14:58:12 Hyperlipidemia 91162469 Active Tereso Mathias PA-C Attn: Accountin g,[address] [facility], [place], [address], [facility] 6 14:58:12 Tobacco user 820925460 Active Tereso Mathias PA-C Attn: Areli g,[address] [facility], [place], [address], 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 Active Tereso Mathias PA-C Attn: Areli g,[address], [place], [address], [place] [facility] 6 14:58:12 Glaucoma 39282590 Active Tereso Mathias PA-C Attn: Accountmaryana g,[address], [place], [address], [place] [facility] 6 14:58:12 Screening for malignant neoplasm of prostate Active 2016 Tereso Mathias PA-C Attn: Areli g,[address], [place], [address], [place] [facility] 7 10:01:18 Family history of diabetes mellitus 428612657 Active 2016 Tereso Mathias PA-C Attn: Areli magallon,[address], [place], [address], [place] [facility] 7 10:02:18 Hearing loss 05706191 Active 2016 Tereso Mathias PA-C Attn: Areli magallon,[address], [place], [address], [place] [facility] 7 14:00:42 Problem Notes None recorded. Procedures Surgical History Date Name Laterality Status Provider Name and Address Organization Details Recorded Time 6 Control Implant Replacement completed Tereso Mathias PA-C Attn: Accounting,[address], [place], [address], [place] [facility] 11/19/2015 17:16:51 5 Eye Surgery completed Araceli Miller MA MD - [facility] 07/15/2015 16:13:26 Imaging Results None recorded. Procedure Notes None recorded. Medical Equipment None Reported. Allergies No known drug allergies Medications Name Sig Start Date Stop Date Status Note LastModified by Organization Details LastModified Time amoxicillin 500 mg capsule active Not Available Not Available Not Available latanoprost 0.005 % eye drops active Not Available Not Available Not Available nicotine 14 mg/24 hr daily transdermal patch Apply 1 patch every day by transdermal route for 30 days. 2016 active Not Available Not Available Not Avai lable azithromycin 250 mg tablet active Not Available Not Available Not Available TobraDex 0.3 %-0.1 % eye ointment active Not Available Not Available Not Available pravastatin 80 mg tablet TAKE 1 TABLET BY MOUTH DAILY WITH SUPPER active Not Available Not Available Not Available prednisolone acetate 1 % eye drops,suspen rani active Not Available Not Available Not Available baclofen 10 mg tablet active Not Available Not Available No t Available neomycin-ras ymyxin-dexam eth 3.5 mg/mL-10,000 unit/mL-0.1% eye drops active Not Available Not Available No t Available polymyxin B sulfate 10,000 unit-trimeth oprim 1 mg/mL eye drops active Not Available Not Available Not Available brimonidine 0.2 % eye drops active Not Available Not Available Not Available hydrochlorot hiazide 12.5 mg capsule Take one capsule by mouth daily active Not Available Not Available Not Available montelukast 10 mg tablet active Not Available Not Available Not Available ibuprofen 600 mg tablet active Not Available Not Available Not Available timolol maleate 0.5 % eye drops active Not Available Not Available Not Available losartan 100 mg tablet TAKE 1 TABLET BY MOUTH DAILY active Not Available Not Available Not Available fluticasone propionate 50 mcg/actuatio n nasal spray,suspen rani active Not Available Not Available Not Available Lotemax 0.5 % eye drops,suspen rani active Not Available Not Available Not Available dorzolamide 2 % eye drops active Not Available Not Available Not Available ezetimibe 10 mg tablet TAKE 1 TABLET BY MOUTH DAILY active Not Available Not Available Not Available Vigamox 0.5 % eye drops active Not Available Not Available Not Available Alphagan P 0.1 % eye drops active Not Available Not Available Not Available Vitals Date Recorded Body temperature Body mass index (BMI) Oxygen saturation Oxygen saturation in Arterial blood by Pulse oximetry Body weight Heart rate Body height Systolic And Diastolic Provider Name and Address Organization Details Last Updated DateTime 6 98.1 [degF] 27.1 kg/m2 97 % 97 % 42994.0 50908 g 83 /min 170.18 cm 126/80 mm[Hg] Araceli Miller MA [facility] 6 16:32:52 Date Recorded Body height Body weight Body mass index (BMI) Oxygen saturation Oxygen saturation in Arterial blood by Pulse oximetry Heart rate Body temperature Systolic And Diastolic Provider Name and Address Organization Details Last Updated DateTime 7 170.18 cm 04818.9 1 g 26.5 kg/m2 99 % 99 % 65 /min 98.3 [degF] 110/72 mm[Hg] Araceli Miller MA [facility] 7 09:34:57 Date Recorded Body height Body weight Body mass index (BMI) Oxygen saturation Oxygen saturation in Arterial blood by Pulse oximetry Heart rate Body temperature Systolic And Diastolic Provider Name and Address Organization Details Last Updated DateTime 7 170.18 cm 44580.8 g 24.7 kg/m2 98 % 98 % 65 /min 97.8 [degF] 120/66 mm[Hg] Araceliaj Miller MA [facility] 7 09:45:04 Date Recorded Body height Body mass index (BMI) Body temperature Heart rate Body weight Oxygen saturation Oxygen saturation in Arterial blood by Pulse oximetry Systolic And Diastolic Provider Name and Address Organization Details Last Updated DateTime 6 170.18 cm 26.5 kg/m2 98.5 [degF] 73 /min 65809.9 26434 g 98.5 % 98.5 % 122/62 mm[Hg] Araceli Miller MA [facility] 6 14:25:34 Date Recorded Body weight Oxygen saturation Oxygen saturation in Arterial blood by Pulse oximetry Body height Body mass index (BMI) Heart rate Body temperature Systolic And Diastolic Provider Name and Address Organization Details Last Updated DateTime 5 20780.2 15441 g 98 % 98 % 170.18 cm 27.8 kg/m2 73 /min 98.1 [degF] 120/70 mm[Hg] Araceli Miller [facility] 5 16:18:29 Social History Question Answer Notes LastModified by Organizat ion Details LastModified Time Tobacco Smoking Status Current Every Day Smoker 8 cigarettes per day Tereso Mathias PA-C Attn: Accounting,[address] , [place], [address], [facility] 11/19/2015 16:46:10 How Many Years Have You Smoked Tobacco? 16 [email or web address] Information not available 11/19/2015 Sex: Unknown Functional Status None recorded. Mental Status None recorded. Family History Relationship Description Onset Age of this Age Resolved Age Notes LastModified by Organization Details LastModified Time Father Myocardial infarction [email or web address] Not available 07/15 16:14:56 Paternal Grandmother Myocardial infarction [email or web address] Not available 07/15 16:14:56 Medical History Condition Response Coronary Artery Disease N Other N High Blood Pressure N Atrial Fibrillation N Kidney or Bladder Problems N Thyroid Problems N GI Problems N Depression N COPD N Blood Clots N Skin Problems N Anemia N Heart Attack ([place]) N Anxiety Disorder N Diabetes N Muscle, Joint, or Bone Problems N Seizures/Epilepsy N Acid Reflux (GERD) N Cancer N Stroke N Asthma N Allergies Y High Cholesterol N Hepatitis N Liver Disease N Headaches N Heart Failure N Osteoporosis N Past Encounters Encounter ID Performer Location Encounter Start Date Encounter Closed Date Diagnosis/Indication Diagnosis SNOMED-CT Code Diagnosis ICD10 Code Diagnosis IMO Codes Diagnosis Note [id number] MD Dominique Horne (Adult Med) [address] [place] [phone] 07/15/2015 16:01:26 07/18/2015 11:52:23 Essential hypertension 22846832 I10 Hyperlipidemia 65924050 E78.5 Tobacco user 534002942 Z 72.0 Vitamin D deficiency 347 91566 E55.9 [id number] GONZALO Vega (Adult Med) [address] [place] [phone] 11/19/2015 15:59:03 11/19/2015 17:39:42 Essential hypertension 73875000 I10 Hyperlipidemia 25062019 E78.5 Tobacco user 384344953 Z 72.0 Vitamin D deficiency 347 68886 E55.9 Blind right eye 37923195 0 H54.41 removed October 07, 2015 Glaucoma 80451141 H40.9 left eye : on 4 types of eye drops. pressure is 13 [id number] MD Dominique Horne (Adult Med) [address] [place] [phone] 04/14/2016 13:43:20 04/14/2016 18:05:17 Blind right eye 445808412 H54.41 removed October 07, 2015 Essential hypertension 59211540 I10 Glaucoma 58031552 H40.9 left eye : on 4 types of eye drops. pressure is 13 Hyperlipidemia 38797005 E78.5 Tobacco user 534033347 Z 72.0 Vitamin D deficiency 347 33654 E55.9 [id number] MD Dominique Horne (Adult Med) [address] [place] [phone] 11/18/2016 09:02:57 11/18/2016 17:59:18 Essential hypertension 99765170 I10 Hyperlipidemia 32028666 E78.5 Vitamin D deficiency 347 [address] E55.9 Blind right eye 14662708 0 H54.41 removed October 07, 2015 Glaucoma 59766614 H40.9 left eye : on 4 types of eye drops. pressure is 13 Tobacco user 313840204 Z 72.0 Screening for malignant neoplasm of prostate 799996450 Z12.5 Family his tory of diabetes mellitus 612029284 Z83.3 [id number] GONZALO Vega (Adult Med) [address] [place] [phone] 02/24/2017 09:11:33 02/24/2017 17:54:57 Tobacco user 166880491 Z72.0 cannot tolerate Chantix Vitamin D deficiency 347 33600 E55.9 Hyperlipidemia 85431943 E78.5 Essential hypertension 41067541 I10 Glaucoma 96410686 H40.9 left eye : on 4 types of eye drops. pressure is 13 Health Concerns Section Related Observation LastModified by Organization Detai ls LastModified Time None Recorded Concern Status LastModified by Organization Details LastModified Time None Recorded Advance Directives Directive None Recorded Payers Insurance Date Sequence Insurance Name Policy Number Policy Guzman Covered Member ID Guzman Member ID Guarantor Name 02/21/2017 1 [facility] (MEDICARE REPLACEMENT/A DVANTAGE - HMO) [id number] Mark Hines [id number] Mark Hines Notes Date Note Type Note Provider Name and Address Organization Details Recorded Time 11/18/2016 text/html ROS as noted in the HPI no changes Tereso Mathias PA-C Attn: Accounting,[address] [facility], [place], [address], [facility] 11/18/2016 14:01:21 02/24/2017 text/html ROS as noted in the HPI no changes , needs another referral to [facility] , for glaucoma treatment Tereso Mathias PA-C Attn: Accounting,[address] [facility], [place], [address], [facility] 02/24/2017 12:42:21
--- OUTSIDE RECORDS SUMMARY | 2025-06-14 17:47 | XMS_ITS | Encounter Summary ---
Author Organization [facility] Healthcare Address [address] [place] [address] Care Team Providers Care Ophthalmic Technologist Name Role Phone Nuris Berger Primary Care Provider [phone] Jonatan Stokes MD Unavailable [phone] Irma Bajwa MD Unavailable [phone] Ayla Dugan LPN Unavailable [phone] Encounter Details Date Type Department Care Team (Late st Contact Info) Description 06/28/2024 Orders Only [facility] Health Information Management [address] [place] [address] Scanning, Provider Social History Tobacco Use Types Packs/Day Years Used Date Smoking Tobacco: Former Cigarettes 0.8 40 0 09/1981 - 09/2021 Smokeless Tobacco: Never Alcohol Use Standard Drinks/Week Comments Yes 0 (1 standard drink = 0.6 oz pur e alcohol) social [facility] Utilities Answer Date Recorded In the past 12 months has [employer], gas, oil, or water company threatened [...] week 12/03/2023 How often do you attend [facility] or catholic services? 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 Gender Identity Not on file Sexual Orientation [...] on filedocumented in this encounter Care Teams Ophthalmic Technologist Relationship Specialty Start Date End Date Nuris Berger PA [address] [facility] [address] [place] [address] PCP - General Internal Medicine 12/28/18 Jonatan Stokes MD [address] [place] [address] Consulting Physician Otolaryngology 03/27/20 Irma Bajwa MD [address] [facility] [address] Consulting Physician Neurology 05/07/22 Ayla Dugan LPN [address] [place] [address] [address] [place] [address] Financial Planning Advisor 03/30/25 03/30/25 documented as of this encounter
--- OUTSIDE RECORDS SUMMARY | 2025-06-14 17:47 | XMS_ITS | Clinical Summary ---
Author Organization [facility] [facility] Address [address] [place] [address] Care Team Providers Care Scrap Drop Operator Name Role Phone Nuris Berger Primary Care Provider [phone] Jonatan Stokes MD Unavailable [phone] Irma Bajwa MD Unavailable [phone] Allergies Active Allergy Reactions Criticality Noted Date [...] EYE FOUR TIMES DAILY 04/26/20 24 Active budesonide-form oteroL (SYMBICORT) 80-4.5 mcg/actuation inhalerIndicati ons:Mild persistent asthma without complication,Ch ronic obstructive pulmonary disease, unspecified COPD type ([facility]) INHALE 2 PUFFS BY MOUTH TWICE DAILY. [...] 02/01/20 25 Active baclofen (LIORESAL) 10 mg tabletIndicatio ns:Low back pain, unspecified back pain laterality, unspecified chronicity, unspecified whether sciatica present TAKE 1 TABLET(10 MG) BY MOUTH TWICE DAILY 60 tablet 1 04/16/20 25 Active chlorproMAZINE (THORAZINE) 25 mg tablet Take 1 tablet (25 mg total) by mouth 4 (four) times a day 120 tablet 1 05/01/20 25 Active montelukast (SINGULAIR) 10 mg tabletIndicatio ns:Uncomplicate d asthma, unspecified asthma severity, unspecified whether persistent TAKE 1 TABLET(10 MG) BY MOUTH EVERY NIGHT 90 tablet 2 05/11/20 25 Active gabapentin (NEURONTIN) 300 mg capsuleIndicati ons:Chronic hiccups TAKE 1 CAPSULE(300 MG) BY MOUTH THREE TIMES DAILY 300 capsule 05/23/20 25 Active gabapentin (NEURONTIN) 300 mg capsuleIndicati ons:Chronic hiccups TAKE 1 CAPSULE(300 MG) BY MOUTH THREE TIMES DAILY 300 capsule 01/23/20 25 025 Discontinued Active Problems Patient Care [...] 11/24/2023 Assessment & Plan (11/19/2024 11:45 PM [employer]W [employer]USER [employer]): Supplement Assessment & Plan (05/20/2024 7:36 PM CDT): Supplement Fatigue 12/12/2022 Assessment & Plan (05/20/2024 7:37 PM CDT): Probably multifactorial. Check labs and followup to re-evaluate Assessment & Plan (11/24/2023 10:35 AM [employer]USER [employer]): Probably multifactorial. Check labs and followup to [...] 01/16/2022 Assessment & Plan (11/19/2024 11:44 PM [employer]USER [employer]): Chronic hiccups for 5+ years Has been [...] to the ER. ER recommended referral to [facility] but patient states he can't go to [...] weeks Assessment & Plan (11/24/2023 10:34 AM [employer]USER [employer]CULAR): Patient has persistent chronic hiccups that come [...] monitor Assessment & Plan (08/15/2023 5:01 PM [employer]): Chronic hiccups for years. Has tried multiple interventions along with multiple workups from specialists including Neurology pulmonology and GI. Continue current regimen. Stressed importance of limiting water intake when he has the hiccups spells as this has been leading to hyponatremia requiring hospitalization. Assessment & Plan (08/11/2023 8:45 AM [employer]USER [employer]): Patient with chronic hiccups. Have had difficulty [...] levels. Assessment & Plan (08/15/2022 6:45 PM [employer]USER [employer]CULAR): Patient has consulted with most multiple specialists [...] hiccups. Assessment & Plan (08/15/2023 5:02 PM [employer]USER [employer]CULAR): Chronic hiccups for years. Has tried multiple interventions along with multiple workups from specialists including Neurology pulmonology and GI. Continue current regimen. Stressed importance of limiting water intake when he has the hiccups spells as this has been leading to hyponatremia requiring hospitalization. Assessment & Plan (08/11/2023 8:46 AM [employer]USER [employer]): Hyponatremia secondary to water intake with chronic [...] 07/14/2019 Assessment & Plan (11/19/2024 11:44 PM [employer]USER [employer]CULAR): Continue PPI p.r.n. Assessment & Plan (05/20/2024 7:35 PM CDT): Continue pantoprazole p.r.n. Assessment & Plan (11/24/2023 10:33 AM [employer]): Continue pantoprazole p.r.n. Assessment & Plan (04/08/2023 8:48 PM CDT): Continue PPI p.r.n. Assessment & Plan (12/12/2022 9:43 PM CDT): Insert PPI Assessment & Plan (08/15/2022 6:45 PM [employer]): Continue PPI prn Assessment & Plan (02/09/2021 8:17 PM CDT): Continue PPI Assessment & Plan (07/29/2020 7:33 AM [employer]): Continue PPI Assessment & Plan (03/27/2020 8:01 AM CDT): Dr. Stokes changed him from omeprazole to Pantoprazole for the hiccups. Pt hasn't noted any difference in GERD sxs (still well controlled) or hiccups. Assessment & Plan (09/26/2019 7:38 AM [employer]): Continue PPI Assessment & Plan (07/14/2019 8:46 AM CDT): Discussed GERD at length including anatomy, behavioral changes (raise HOB, meal timings), dietary changes and medication options. Reviewed risks, benefits alternatives, side effects and proper use. Followup if sxs worsen or has hematochezia or hematemeis. Start PPI Chronic obstructive pulmonary disease 06/26/2019 Overview (06/26/2019): Noted on 06/2019 LDCT Assessment & Plan (11/19/2024 11:44 PM [employer]USER [employer]CULAR): Patient with allergies and COPD. Continue Singulair albuterol and Symbicort. Follows with Dr. Valdes. Assessment & Plan (05/20/2024 7:35 PM CDT): Continue per Dr. Valdes. Continue with his Symbicort and albuterol inhalers. Low-dose CT will be scheduled for June 16, 2024. Assessment & Plan (11/24/2023 10:33 AM SAW EDGE FUSER CIRCULAR): COPD. Continue per Dr. 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 Assessment & Plan (04/08/2023 8:48 PM CDT): Encouraged smoking cessation. Continue per Dr. Hammond pulmonology. He is on albuterol Symbicort and Singulair Assessment & Plan (12/12/2022 9:43 PM CDT): Stop smoking. Continue per Pulmonary. Continue Symbicort Singulair and albuterol. Continue monitoring low-dose CTs as instructed Assessment & Plan (08/15/2022 6:44 PM [employer]USER [employer]CULAR): Stop smoking. Continue current plan per Pulmonary Assessment & Plan (08/01/2021 9:34 PM [employer]USER [employer]CULAR): Continue per Pulmonary Dr. Valdes Assessment & Plan (02/09/2021 8:15 PM CDT): Stop smoking. Continue per Dr. Valdes Assessment & Plan (07/29/2020 7:32 AM [employer]USER [employer]CULAR): Continue per Pulm Assessment & Plan (03/27/2020 8:00 AM CDT): Stop smoking. He declines starting inhalers or referral to Pulmonary Assessment & Plan (09/26/2019 10:27 PM SA[employer]USER [employer]CULAR): This is a significant, separately identifiable problem [...] order Assessment & Plan (07/29/2020 7:33 AM SA[employer]USER [employer]): Needs to repeat ---Dr. Valdes has already ordered Assessment & Plan (03/27/2020 8:00 AM CDT): 06/2019 LDCT Several 2-3mm nodules, probable benign LungRADs 2 --- repeat 06/2020 Assessment & Plan (09/26/2019 10:26 PM SAW [employer]USER [employer]CULAR): 06/2019 LDCT Several 2-3mm nodules, probable benign LungRADs 2 --- repeat 06/2020 Hyperplastic rectal polyp 05/20/2019 Overview (05/20/2019): Colonoscopy 01/29/2012 at [facility]--->2021 Assessment & Plan (05/28/2019 7:33 PM CDT): Recvd colonoscopy and due to repeat in 2021 Hiatal hernia 05/20/2019 Mixed hyperlipidemia 05/20/2019 Assessment & Plan (11/19/2024 11:45 PM [employer]W [employer]USER [employer]CULAR): Encouraged patient to follow low fat/low chol [...] 80 Assessment & Plan (11/24/2023 10:34 AM SAW [employer] FUSER [employer]CULAR): Encouraged patient to follow low fat/low chol diet like the Mediterranean diet. Increase good fats in the diet. Increase exercise. Monitor labs as needed. Continue pravastatin 80 Assessment & Plan (08/15/2023 5:03 PM SAW [employer] FUSER [employer]CULAR): Encouraged patient to follow low fat/low chol [...] Zetia Assessment & Plan (08/01/2021 9:33 PM SAW EDGE FUSER CIRCULAR): Encouraged patient to follow fat/low chol diet [...] statin Assessment & Plan (07/29/2020 7:34 AM SAW [employer] FUSER [employer]CULAR): Encouraged patient to follow fat/low chol diet like the Mediterranean diet. Increase good fats in the diet. Increase exercise. Monitor labs as needed. Assessment & Plan (03/27/2020 8:02 AM CDT): Encouraged patient to continue low fat/low chol diet. Continue exercise. Increase good fats in the diet. Monitor labs as needed. Stable with zetia and pravastatin Assessment & Plan (09/26/2019 7:39 AM SA[employer]USER [employer]CULAR): Encouraged patient to continue low fat/low chol [...] change Assessment & Plan (08/15/2023 5:03 PM [employer]W [employer]USER [employer]): Patient is legally blind. Continue with Ophthalmology Assessment & Plan (04/08/2023 8:47 PM CDT): No change Assessment & Plan (03/27/2020 8:02 AM CDT): No change Assessment & Plan (09/26/2019 7:39 AM [employer]USER [employer]CULAR): No change Assessment & Plan (05/28/2019 7:35 PM CDT): No change Cigarette smoker 05/20/2019 Assessment & Plan (08/11/2023 8:45 AM [employer]USER [employer]CULAR): Encouraged smoking cessation. Discussed 3 minutes. Reviewed options for assistance with cessation. Reviewed shelter sequela associated with smoking. Pt declines assistance at this time but may contact the office at anytime for further help as they desire. Assessment & Plan (04/08/2023 8:47 PM CDT): Encouraged smoking cessation. Discussed 3 minutes. Reviewed options for assistance with cessation. Reviewed shelter sequela associated with smoking. Pt declines assistance at this time but may contact the office at anytime for further help as they desire. Low-dose CT will be due in May. It is already scheduled Assessment & Plan (12/12/2022 9:42 PM CDT): Encouraged smoking cessation. Discussed 3 minutes. Reviewed options for assistance with cessation. Reviewed shelter sequela associated with smoking. Pt declines assistance at this time but may contact the office at anytime for further help as they desire. Assessment & Plan (08/15/2022 6:44 PM SAW [employer] FUSER CIRCULAR): Encouraged smoking cessation. Discussed 3 minutes. Reviewed options for assistance with cessation. Reviewed shelter sequela associated with smoking. Pt declines assistance [...] desire. Assessment & Plan (08/01/2021 9:33 PM [employer] FUSER [employer]CULAR): Encouraged smoking cessation. Discussed 3 minutes. Reviewed options for assistance with cessation. Reviewed shelter sequela associated with smoking. Pt declines assistance [...] Reviewed options for assistance with cessation. Reviewed shelter sequela associated with smoking. He is slowing down. Offered assistance. May call if decides he wants help Assessment & Plan (07/29/2020 7:34 AM [employer]USER [employer]CULAR): Encouraged smoking cessation. Discussed 3 minutes. Reviewed options for assistance with cessation. Reviewed shelter sequela associated with smoking. Pt declines assistance at this time but may contact the office at anytime for further help as they desire. Assessment & Plan (03/27/2020 8:02 AM CDT): Encouraged smoking cessation. Discussed 3 minutes. Reviewed options for assistance with cessation. Reviewed shelter sequela associated with smoking. Pt declines assistance at this time but may contact the office at anytime for further help as they desire. Assessment & Plan (09/26/2019 7:39 AM [employer]USER [employer]CULAR): Encouraged smoking cessation. Discussed 3 minutes. Reviewed options for assistance with cessation. Reviewed shelter sequela associated with smoking. Pt declines assistance at this time but may contact the office at anytime for further help as they desire. Assessment & Plan (07/14/2019 7:05 PM CDT): Encouraged smoking cessation. Discussed 3 minutes. Reviewed options for assistance with cessation. Reviewed shelter sequela associated with smoking. Pt declines assistance [...] 05/20/2019 Assessment & Plan (11/19/2024 11:45 PM [employer]USER [employer]): Pre-diabetes/hyperglycemia is a precursor to Dm. Stressed [...] diabetes. Assessment & Plan (11/24/2023 10:34 AM [employer]USER [employer]): Pre-diabetes/hyperglycemia is a precursor to Dm. Stressed importance of working on diet (decrease your simple sugars and one carbohydrate with each meal) and increase you exercise to achieve weight loss and this will help prevent you from progressing to diabetes. Assessment & Plan (08/15/2023 5:03 PM [employer]USER [employer]CULAR): Pre-diabetes/hyperglycemia is a precursor to Dm. Stressed [...] diabetes. Assessment & Plan (08/01/2021 9:33 PM [employer] FUSER [employer]CULAR): Pre-diabetes/hyperglycemia is a precursor to Dm. Stressed [...] diabetes. Assessment & Plan (07/29/2020 7:34 AM [employer] FUSER [employer]CULAR): Pre-diabetes is a precursor to Dm. Stressed [...] labs Assessment & Plan (09/26/2019 10:27 PM SAW [employer]GE FUSER [employer]CULAR): This is a significant, separately identifiable problem [...] 025 Assessment & Plan (11/19/2024 11:45 PM [employer]USER [employer]): Encouraged healthy lifestyle, good nutrition and exercise. Encouraged Calcium and Vitamin D and weight bearing exercise for bone health. Reviewed immunizations Reviewed age appropirate screenings. BMI 23.0-23.9, adult 06/20/2024 025 Assessment & Plan (10/30/2024 8:57 AM SA[employer]USER [employer]): Weight/BMI is in healthy range. Continue healthy [...] 024 Assessment & Plan (11/24/2023 10:35 AM [employer]USER [employer]CULAR): Encouraged healthy lifestyle, good nutrition and exercise. Encouraged Calcium and Vitamin D and weight bearing exercise for bone health. Reviewed immunizations Reviewed age appropirate screenings. Need for influenza vaccination 08/15/2023 11/24/2023 Assessment & Plan (08/15/2023 5:04 PM SAW [employer]USER [employer]CULAR): Flu vaccine updated in the office today BMI 22.0-22.9, adult 07/22/2023 024 Assessment & Plan (08/11/2023 8:12 AM SAW [employer] FUSER [employer]CULAR): Weight/BMI is in healthy range. Continue healthy [...] 04/03/2023 Assessment & Plan (08/15/2022 6:45 PM SAW [employer]USER [employer]CULAR): Flu updated in the office today BMI [...] test outpatient. Was referred to an outside soaker helper. Encouraged to consider seeing a [facility] group of cardiologists so all of his providers are in the same system. He is in agreement. Referral made to Dr. Eduardo as he has multiple risk factors. BMI 23.0-23.9, adult 01/21/2022 Assessment & Plan (01/21/2022 11:10 AM CDT): Weight/BMI is in healthy range. Continue healthy lifestyle to maintain. BMI 21.0-21.9, adult 08/01/2021 Assessment & Plan (08/01/2021 7:28 AM [employer]USER [employer]CULAR): Weight/BMI is in healthy range. Continue healthy lifestyle to maintain. Medicare annual wellness visit, subsequent 08/01/2021 08/15/2022 Assessment & Plan (08/01/2021 9:34 PM SAW [employer] FUSER [employer]CULAR): Encouraged healthy lifestyle, good nutrition and exercise. Encouraged Calcium and Vitamin D and weight bearing exercise for bone health. Reviewed immunizations. Reviewed age appropirate screenings. Medicare Wellness Documentation is completed within the chart Fatigue 05/17/2021 05/02/2022 Assessment & Plan (08/01/2021 9:34 PM SAW [employer]USER [employer]CULAR): Probably multifactorial. Check labs and followup to [...] 024 Assessment & Plan (11/24/2023 10:34 AM SA[employer]USER [employer]CULAR): Weight/BMI is in healthy range. Continue healthy [...] 05/02/2022 Assessment & Plan (07/29/2020 7:34 AM SAW [employer]GE FUSER CIRCULAR): Probably multifactorial. Check labs and followup to re-evaluate Need for immunization against influenza 07/29/2020 11/24/2020 Assessment & Plan (07/29/2020 7:34 AM SAW EDGE FUSER CIRCULAR): Updated in office today BMI 22.0-22.9, adult 03/27/2020 024 Assessment & Plan (05/20/2024 7:37 PM CDT): Weight/BMI is in healthy range. Continue healthy lifestyle to maintain. Assessment & Plan (07/29/2020 7:34 AM SAW [employer] FUSER [employer]CULAR): Weight/BMI is in healthy range. Continue healthy [...] 020 Assessment & Plan (09/26/2019 7:39 AM [employer]USER [employer]CULAR): Weight/BMI is in healthy range. Continue healthy lifestyle to maintain. Annual physical exam 09/26/2019 020 Assessment & Plan (09/26/2019 7:40 AM [employer]USER [employer]CULAR): Encouraged healthy lifestyle, good nutrition and exercise. Encouraged Calcium and Vitamin D and weight bearing exercise for bone health. Reviewed immunizations Reviewed age appropirate screenings. Influenza vaccine refused 09/26/2019 Assessment & Plan (09/26/2019 7:40 AM SAW [employer] FUSER [employer]CULAR): Encouraged vaccine. Reviewed risks/ benefits. Patient refuses and accepts risks. Esophagitis determined by endoscopy 05/20/2019 05/02/2022 Gastritis 05/20/2019 05/02/2022 Essential (primary) hypertension 05/20/2019 05/20/2024 Assessment & Plan (11/24/2023 10:34 AM SA[employer]USER [employer]CULAR): Bp is stable/in acceptable range for any co-morbidities. Encouraged to limit sodium intake and exercise for weight control. Continue losartan 50 Assessment & Plan (08/15/2023 5:04 PM SA[employer]USER [employer]CULAR): Bp is stable/in acceptable range for any co-morbidities. Encouraged to limit sodium intake and exercise for weight control. Continue per Dr. Curtis Assessment & Plan (08/11/2023 8:45 AM SA[employer] FUSER [employer]CULAR): Bp is stable/in acceptable range for any [...] losartan Assessment & Plan (08/15/2022 6:44 PM SAW [employer] FUSER [employer]CULAR): Bp is stable/in acceptable range for any [...] 50 Assessment & Plan (08/01/2021 9:33 PM SA[employer] FUSER [employer]CULAR): Bp is stable/in acceptable range for any [...] Losartan/HCTZ Assessment & Plan (07/29/2020 7:33 AM SA[employer]USER [employer]): Bp is stable/in acceptable range for any co-morbidities. Encouraged to limit sodium intake and exercise for weight control. Losartan and HCTZ Assessment & Plan (03/27/2020 8:00 AM CDT): Bp is stable/in acceptable range for any co-morbidities. Encouraged to limit sodium intake and exercise for weight control. Continue losartan/HCTZ Assessment & Plan (09/26/2019 7:38 AM SA[employer] FUSER [employer]CULAR): Bp is stable/in acceptable range for any [...] 01/21/2022 Assessment & Plan (08/01/2021 9:34 PM SA[employer] FUSER [employer]CULAR): Persistent hiccups. Has consulted with multiple providers [...] omeprazole Assessment & Plan (07/29/2020 7:32 AM SAW [employer] FUSER [employer]CULAR): Continue per ENT/Pulm. He is responding to BID omeprazole. Will monitor Assessment & Plan (03/27/2020 7:59 AM CDT): Dr. Stokes started him on Pantoprazole. He hasn't noted much difference. Needs to followup to complete workup. Encouraged patient to call and make appointment. Assessment & Plan (09/26/2019 10:26 PM SA[employer] FUSER [employer]CULAR): This is a significant, separately identifiable problem that was evaluated and managed on the same day as the wellness exam Less frequent than in the past. Continue the PPI and monitor Rx sent to pharmacy. Assessment & Plan (08/24/2019 9:04 AM SAW [employer]GE FUSER CIRCULAR): Improving with the PPI. Continue PPI and [...] 2018 Assessment & Plan (08/24/2019 9:04 AM SAW [employer] FUSER [employer]CULAR): Encouraged vaccine. Reviewed risks/ benefits. Patient refuses [...] Encounters Date Type Department Care Team Description 06/01/2025 Telephone [facility] [address] [phone] Nuris Berger PA 05/30/2025 [facility] [address] [address] Hilton James LPN 05/02/2025 Results Follow-Up [address] [place] [phone] Nuris Berger PA Comprehensive metabolic panel, CBC with auto differential, TSH, Additional followed-up results: 2 05/01/2025 9:00 AM CDT Office Visit [address] [place] [phone] Nuris Berger PA Medicare annual wellness visit, subsequent (Primary Dx); Chronic hiccups; Hyponatremia; Legally blind; Primary hypertension; Chronic obstructive pulmonary disease, unspecified COPD type (HCC); Seasonal allergic rhinitis due to pollen; Gastroesophageal reflux disease with esophagitis without hemorrhage; Mixed hyperlipidemia; Fatigue, unspecified type; Prostate cancer screening; BMI 24.0-24.9, adult 04/20/2025 Orders Only [facility] [address] [place] [phone] Britta Valdez NP 04/20/[address] [phone] Nuris Berger PA After Hours 03/30/2025 [facility] [address] [address] Ayla Dugan LPN 03/26/2025 Orders Only [facility] [address] [place] [phone] Scanning, Provider from Last 3 Months Immunizations [...] Name Comments Blindness Father Heart attack Father [place] Heart disease Father No Known Problems Mother Relation Name Status Comments Father Mother Social History Tobacco Use Types Packs/Day Years Used Date Smoking Tobacco: Former Cigarettes 0.8 40 0 09/1981 - 09/2021 Smokeless Tobacco: Never Tobacco Cessation:Counseling Given: Not Answered Alcohol Use Standard Drinks/Week Comments Yes 2 (1 standard drink = 0.6 oz pur e alcohol) social [employer] Util[employer] Answer Date Recorded In the past 12 months has [employer] electric, gas, oil, or water [employer] threatened to shut off services in your [...] How often do you attend chur or mandaen services? Patient declined 12/03/2023 Do you belong [...] place to sleep or slept in a snf (including now)? No 12/03/2023 AUDIT-C Answer Date [...] on file Legal Sex Male 12:22 AM [employer] Gender Identity Not on file Sexual Orientation [...] Read Routine (OP Routine) 10/03/2024 9:25 AM [employer]USER [employer]CULAR Pulmonary nodules HEPATITIS PANEL, ACUTE Routine 05/03/2022 [...] compared to the equimolar-standardized total PSA ([facility] [place]). Comparison of serial PSA results should be [...] LAB BLOOD ORDERABLES Final Result [facility] [address] [phone] * (ABNORMAL) CBC with auto differential (05/01/2025 10:18 AM CDT) Pathologist [facility] WBC 10.8 3.8 - 10.8 Thousand/u L [...] BLOOD ORDERABLES Final Result Performing Organization Address City/[facility]/ZIP Co de Phone Number [facility] [address] [place] [address] * TSH (05/01/2025 10:18 AM CDT) TSH 1.22 0.40 - 4.50 mIU/L [facility] Blood 05/01/2025 10:1 8 AM CDT 05/01/2025 10:19 AM CDT Narrative [facility] - 05/02/2025 6:21 AM CDT FASTING:YES FASTING: YES Nuris ROBLES LAB BLOOD ORDERABLES Final Result Performing Organization Address [facility] Co de Phone Number [facility] [address] [place] [address] * Vitamin B12 (05/01/2025 10:18 AM CDT) Pathologist [facility] Vitamin B12 1,067 200 - 1,100 pg/mL [facility] Blood 05/01/2025 10:1 8 AM CDT 05/01/2025 10:19 AM CDT Narrative [facility] - 05/02/2025 6:21 AM CDT FASTING:YES FASTING: YES Nuris ROBLES LAB BLOOD ORDERABLES Final Result Performing Organization Address City/[facility] Co de Phone Number [facility] [address] [place] [address] * (ABNORMAL) Comprehensive metabolic panel (05/01/2025 10:18 AM CDT) Pathologist [facility] Glucose 86 65 - 99 mg/dL [facility] Comment: Fasting reference interval BUN 19 7 - 25 mg/dL [facility] Creatinine 0.80 0.70 - 1.35 mg/dL [facility] eGFR 99 > OR = 60 mL/min/1.7 3m2 [facility] BUN/creat ratio SEE NOTE: 6 - 22 (calc) [facility] Comment: Not Reported: BUN and Creatinine are within reference range. Sodium 136 135 - 146 mmol/L [facility] Potassium, pl 5.1 3.5 - 5.3 mmol/L [facility] Chloride 102 98 - 110 mmol/L [facility] CO2 26 20 - 32 mmol/L [facility] Calcium 9.4 8.6 - 10.3 mg/dL [facility] Protein, sr 6.8 6.1 - 8.1 g/dL [facility] Albumin 3.9 3.6 - 5.1 g/dL [facility] GLOBULIN 2.9 1.9 - 3.7 g/dL (calc) [facility]ri [facility] Alb/glob ratio 1.3 1.0 - 2.5 (calc) [facility] Bilirubin, total 0.2 0.2 - 1.2 mg/dL [facility] Alk phos 48 35 - 144 U/L [facility] AST 9(L) 10 - 35 U/L [facility] ALT (SGPT) 7(L) 9 - 46 U/L [facility] Blood 05/01/2025 10:1 8 AM CDT 05/01/2025 10:19 AM CDT Narrative [facility] - 05/02/2025 6:21 AM CDT FASTING:YES FASTING: YES Result [facility] Nuris ROBLES LAB BLOOD ORDERABLES Final Result [facility] [address] [place] [phone] * SCAN - RADIOLOGY/IMAGING (03/26/2025) Anatomical Region Laterality Modality Other Provider Scanning Edited Result - Final * CT Chest WO Contrast F/U Lung Screen Protocol (10/03/2024 9:25 AM SAW EDGE FUSER [employer]CULAR) Anatomical Region Laterality Modality Chest N/A Computed Tomogra phy 10/03/2024 7:11 PM [facility] FUSER CIRCULAR Narrative 10/03/2024 7:17 PM [facility] FUSER CIRCULAR EXAM DESCRIPTION: CT CHEST WO CONTRAST F/U [...] Estuardo Ortiz M.D. KT T: Report ID: [id number] Reading Location: [id number] Tasia Hoffman MD IMG CT PROCEDURES Final Resul t * Hepatitis panel, acute (05/03/2022 5:40 AM CDT) Hep A IgM Nonreactive Nonreactive [facility] Comment: Interpretive Data: If Hep A IgM Ab is reported as Equivocal, a new sample should be drawn in two weeks for testing. Current interpretive data was last revised on 19. Hep B core IgM Nonreactive Nonreactive [facility] Comment: Interpretive Data If HepB Core IgM Ab is reported as Equivocal, a new sample should be drawn in two weeks for testing. Current interpretive data was last revised on 19. Hep C Ab Nonreactive Nonreactive [facility] Comment: Interpretive Data Nonreactive: [...] last revised on 2019. HepBsAg Nonreactive Nonreactive [facility] Blood 05/03/2022 5:40 AM CDT 05/03/2022 6:36 AM CDT Pamela Gongora DO LAB MICROBIOLOGY - GENERAL OR DERABLES Final Result [facility] [address] [place] [address] * (ABNORMAL) HM COLONOSCOPY (07/14/2021) Jame Mg MD HEALTH MAINTENANCE Edited Result - Final from Last 3 Months or Most Recently Relevant to Health Maintenance Insurance AETNA MEDICARE GOLD AETNA MEDICARE [facility] Advance Directives For more information, please contact: [phone] * Full Code (Latest Code Status on [...] 10:34 PM 11/16/2022 9:56 PM Care Teams Scrap Drop Operator Relationship Specialty Start Date End Date Nuris Berger PA [address] [facility] [address] [place] [address] PCP - General Internal Medicine 12/28/18 Jonatan Stokes MD [address] [place] [address] Consulting Physician Otolaryngology 03/27/20 Irma Bajwa MD [address] [facility] [place] [address] Consulting Physician Neurology 05/07/22
--- OUTSIDE RECORDS SUMMARY | 2025-06-14 17:47 | XMS_ITS | Encounter Summary ---
Author Organization [facility] Healthcare Address [address] [place] [address] Care Team Providers Care Collector Name Role Phone Nuris Berger Primary Care Provider [phone] Jonatan Stokes MD Unavailable [phone] Irma Bajwa MD Unavailable [phone] Encounter Details Date Type Department Care Team (Latest Contact Info) Description 05/02/2025 Results Follow-Up [facility] Family Medicine [address] [place] [address] Nuris Berger PA [address] [facility] [address] [place] [address] Comprehensive metabolic panel, CBC with auto differential, TSH, Additional followed-up results: 2 Social History Tobacco Use Types Packs/Day Years Used Date Smoking Tobacco: Former Cigarettes 0.8 40 0 09/1981 - 09/2021 Smokeless Tobacco: Never Alcohol Use Standard Drinks/Week Comments Yes 2 (1 standard drink = 0.6 oz pur e alcohol) social [facility] Utilities Answer Date Recorded In the past 12 months has [employer] electric, gas, oil, or water company threatened [...] often do you attend chur ch or buddhism services? Patient declined 12/03/2023 Do you belong [...] in a assisted (including now)? 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 Gender Identity Not on file Sexual Orientation Not on file Occupation Industry Job Start Date Job End Date Disabled Not on file Not on file Not on file documented as of this encounter Plan of Treatment Not on file documented as of this encounter Visit Diagnoses Not on filedocumented in this encounter Care Teams Collector Relationship Specialty Start Date End Date Nuris Berger PA [address] [facility] [address] [place] [address] PCP - General Internal Medicine 12/28/18 Jonatan Stokes MD [address] [place] [address] Consulting Physician Otolaryngology 03/27/20 Irma Bajwa MD [address] [facility] [place] [address] Consulting Physician Neurology 05/07/22 documented as of this encounter
--- OUTSIDE RECORDS SUMMARY | 2025-06-14 17:48 | XMS_ITS | Encounter Summary ---
Author Organization [facility] Healthcare Address [address] [place] [address] Care Team Providers Care Wetlands Technician Name Role Phone Nuris Berger Primary Care Provider [phone] Jonatan Stokes MD Unavailable [phone] Irma Bajwa MD Unavailable [phone] Ayla Dugan LPN Unavailable [phone] Encounter Details Date Type Department Care Team (Late st Contact Info) Description 12/26/2024 Orders Only [facility] [address] [place] [id number] Scanning, Provider Social History Tobacco Use Types Packs/Day Years Used Date Smoking Tobacco: Former Cigarettes 0.8 40 0 09/1981 - 09/2021 Smokeless Tobacco: Never Alcohol Use Standard Drinks/Week Comments Yes 0 (1 standard drink = 0.6 oz pur e alcohol) social [facility] Utilities Answer Date Recorded In the past 12 months has [employer] electric, gas, oil, or water company threatened [...] week 12/03/2023 How often do you attend [facility] or hoahaoism services? 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 Gender Identity Not on file Sexual Orientation [...] on filedocumented in this encounter Care Teams Wetlands Technician Relationship Specialty Start Date End Date Nuris Berger PA [address] [facility] [address] [place] [address] PCP - General Internal Medicine 12/28/18 Jonatan Stokes MD [address] [place] [address] Consulting Physician Otolaryngology 03/27/20 Irma Bajwa MD [address] [place] [address] Consulting Physician Neurology 05/07/22 Ayla Dugan LPN [address] [place] [address] Master Fisher 03/30/25 03/30/25 documented as of this encounter
--- OUTSIDE RECORDS SUMMARY | 2025-06-14 17:48 | XMS_ITS | Encounter Summary ---
Author Organization [facility] Healthcare Address [address] [place] [address] Care Team Providers Care Product Safety And Standards Engineer Name Role Phone Nuris Berger Primary Care Provider [phone] Jonatan Stokes MD Unavailable [phone] Irma Bajwa MD Unavailable [phone] Ayla Dugan LPN Unavailable [phone] Encounter Details Date Type Department Care Team (Late st Contact Info) Description 12/21/2024 Orders Only [facility] Health Information Management [address] [place] [id number] Scanning, Provider Social History Tobacco Use Types Packs/Day Years Used Date Smoking Tobacco: Former Cigarettes 0.8 40 0 09/1981 - 09/2021 Smokeless Tobacco: Never Alcohol Use Standard Drinks/Week Comments Yes 0 (1 standard drink = 0.6 oz pur e alcohol) social [facility] Utilities Answer Date Recorded In the past 12 months has [employer] electric, gas, oil, or water company threatened [...] do you attend [facility] or taoism services? 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 Gender Identity Not on file Sexual Orientation [...] on filedocumented in this encounter Care Teams Product Safety And Standards Engineer Relationship Specialty Start Date End Date Nuris Berger PA [address] [facility] [address] [place] [address] PCP - General Internal Medicine 12/28/18 Jonatan Stokes MD [address] [place] [address] Consulting Physician Otolaryngology 03/27/20 Irma Bajwa MD [address] [facility] [place] [address] Consulting Physician Neurology 05/07/22 Ayla Dugan, TREMAYNE [address] [place] [address] [address] [place] [address] Thermocouple Tester 03/30/25 03/30/25 documented as of this encounter
[2025-06-14 18:41] VITALS: BP 155/74; PULSE 75; RESP 20; TEMP 36.6; O2SAT 99
--- NOTE | 2025-06-14 19:09 | ECG_ITS ---
Test Date: 2025-06-14 19:18:57 Measurements Intervals [place] Rate: 78 P: 35 NC: 148 QRS: 14 QRSD: 85 T: 29 QT: 376 QTc: 429 Interpretive Statements SUBOPTIMAL QUALITY WITH BASELINE MOTION ARTIFACT SINUS RHYTHM WITHIN NORMAL LIMITS Compared to ECG 05/29/2025 13:20:40 No significant changes Electronically Signed On 06-15-2025 07:36:38 CDT by Herman Al M.D.
--- NOTE | 2025-06-14 19:42 | ED.DIZZY ---
HPI - Dizziness General Chief Complaint: Dizziness Stated Complaint: LIGHTHEADEDNESS,N/V X1D Time Seen by Provider: 06/14/25 19:02 History of Present Illness HPI Narrative: 64-year-old male with a history of psychogenic polydipsia, chronic hiccups, frequent hyponatremia. Patient presents with complaints of lightheadedness, nausea vomiting. patient has been presented to the emergency department multiple times for similar complaints and found to be hyponatremic. Patient endorses drinking more water than his normal fluid restriction diet that he was started on. He states he drinks this walker to stop sec up. Denies any chest pain, abdominal pain, fever, chills but was recently treated with pneumonia and complete his course of outpatient antibiotics after his hospital stay 2 weeks ago. Family denies any changes to his medications otherwise. Patient states this feels like his usual symptoms after hyponatremia and he endorses feeling dizzy, lightheaded and nauseous. Related Data Home Medications ?Medication ?Instructions ?Recorded ?Confirmed ?Last Taken ?Type losartan 50 mg tablet 50 mg PO DAILY 03/02/21 06/15/25 01/10/25 08:00 History 50 mg montelukast 10 mg tablet 10 mg PO HS 03/02/21 06/15/25 01/10/25 08:00 History 10 mg pravastatin 80 mg tablet 80 mg PO DAILY 03/02/21 06/15/25 01/09/25 19:00 History 80 mg cholecalciferol (vitamin D3) 25 25 mcg PO DAILY 03/29/21 06/15/25 01/10/25 08:00 History mcg (1,000 unit) capsule (Vitamin 25 mcg D3) cyanocobalamin (vitamin B-12) 100 2,000 mcg PO DAILY 03/29/21 06/15/25 01/10/25 08:00 History mcg tablet 2,000 mcg dorzolamide 22.3 mg-timolol 6.8 1 drp LEFT EYE TID 06/29/24 06/15/25 01/10/25 12:00 History mg/mL eye drops 1 drp budesonide-formoterol HFA 80 2 puff inhalation Q12H 12/26/24 06/15/25 12/26/24 08:00 History mcg-4.5 mcg/actuation aerosol 2 puff inhaler gabapentin 300 mg capsule 300 mg PO DAILY 12/26/24 06/15/25 01/10/25 08:00 History 300 mg aspirin 81 mg tablet,delayed 81 mg PO DAILY 03/25/25 06/15/25 Unknown History release (Adult Aspirin Regimen) baclofen 5 mg tablet 5 mg PO BID 04/24/25 06/15/25 Unknown History Allergies Allergy/AdvReac Type Severity Reaction Status Date / Time No Known Allergies Allergy Verified 06/14/25 18:54 Review of Systems Review of Systems: As reviewed above in HPI All systems reviewed & are unremarkable except as noted in HPI and below PMFSH Past Medical History Medical History (Updated 06/15/25 @ 06:25 by Shawn Mary MD) Wears hearing aid in both ears Adenomatous colon polyp Asthma-COPD overlap syndrome Hiatal hernia Other osteonecrosis, left femur Other osteonecrosis, right femur Psychogenic polydipsia Erosive esophagitis Anemia of chronic disease Chronic hiccups Hyponatremia Tobacco abuse Normocytic anemia Glaucoma Legally blind. Hyperlipidemia Hypertension Surgical History Surgical History History of enucleation of eye Right, secondary to recurrent infection. Family History Family History Grandparent Acute myocardial infarction Mother Acute myocardial infarction Skin cancer Father Acute myocardial infarction Sibling Cancer Social History Social History Social History: Surrogate decision maker: Svitlana Hines, . Code status: Full code. Smoking packs per day: 1.5 Smoking cigarettes per day: 30.0 Years smoked: 50 Smoking pack-years: 75.00 Smoking status: Former smoker Tobacco type: cigarettes Second hand tobacco smoke exposure: No Smoking end date: 05/21/20 Alcohol intake: current Drinks per week: 3 Substance use: never Substance use type: does not use Do You Feel Safe in your Home?: Yes Lack of Transportation: No Lack of Food: Never True Current Housing: I Have Housing Concerned About Future Housing: No Difficulty Paying Gas/Electric Bills: No Difficulty Paying for Meds: No Currently Unemployed: No Education: High School Diploma/GED Difficulty w/ Childcare or Family Care: No Living arrangements: with family Additional living arrangements comments: The patient lives with his of 43 years in [place]. He and his had 4 children 1 of which at . His remaining children are healthy. 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 Spiritual care concerns: No Exam Narrative: GENERAL: Hiccuping in bed, endorses feeling lightheaded and nauseous but awake and answering questions appropriately. HEAD: [Normocephalic, atraumatic.] EYES: Blind ENT: Nares clear, no rhinorrhea or epistaxis. Mucous membranes moist. NECK: Supple. CHEST: [Clear to auscultation. No respiratory distress.] HEART: [Regular rate and rhythm]. No murmur heard. [Normal peripheral pulses.] ABDOMEN: [Soft, nondistended], [nontender], [No rigidity or guarding] EXTREMITIES: Normal range of motion. [No edema.] SKIN: Warm, dry, no rash. NEURO: [No focal deficits]. Alert and oriented [x3.] PSYCH: [Normal mood and affect.] Course Vital Signs Vital signs: Vital Signs Temperature 36.8 C 06/14/25 17:42 Pulse Rate 81 06/14/25 17:42 Respiratory Rate 21 H 06/14/25 17:42 Blood Pressure 139/58 L 06/14/25 17:42 Pulse Oximetry 97 06/14/25 17:42 Oxygen Delivery Room Air 06/14/25 17:42 Temperature 36.9 C 06/15/25 01:26 Pulse Rate 88 06/15/25 04:00 Respiratory Rate 16 06/15/25 01:26 Blood Pressure 135/71 06/15/25 01:26 Pulse Oximetry 97 06/15/25 01:26 Oxygen Delivery Room Air 06/14/25 18:41 MDM - Dizziness MDM Narrative Medical decision making narrative: 64-year-old male with a history of psychogenic polydipsia, chronic hiccups, frequent hyponatremia. Patient presents with complaints of lightheadedness, nausea vomiting. patient has been presented to the emergency department multiple times for similar complaints and found to be hyponatremic. Patient endorses drinking more water than his normal fluid restriction diet that he was started on. He states he drinks this walker to stop sec up. Denies any chest pain, abdominal pain, fever, chills but was recently treated with pneumonia and complete his course of outpatient antibiotics after his hospital stay 2 weeks ago. Family denies any changes to his medications otherwise. Patient states this feels like his usual symptoms after hyponatremia and he endorses feeling dizzy, lightheaded and nauseous. patient is not any acute physical distress. Frequently he coping during examination. Vital signs are stable without any significant tachycardia, fever, hypoxia or blood pressure concerns. He has moist mucous membranes. Given patient's chronic issues and past medical history likely he has acute hyponatremia from polydipsia versus other underlying process such as recurrent pneumonia or new infection. Just completed a course of antibiotics. Will re-evaluate with a chest x-ray and basic laboratory studies. Urine electrolyte panel sent off as well. EKG and chest x-ray with troponin given EKG shows NH depressions. Patient has no fever or chest discomfort presently. Patient found to be hyponatremic 125, not as severe his is previous symptomatic episodes. Remaining workup shows chronic anemia. Negative troponin. Normal LFTs. Normal kidney function. Chest x-ray shows persistent infiltrates suspicious for atypical pneumonia. Started on appropriate antibiotics. Discussed the case with the hospitalist who accepted the patient to a telemetry monitored bed at this time. Medical Records Attestation: I reviewed the patient's medical records. Lab Data Attestation: I reviewed the patient's lab results. 06/14/25 21:45 06/15/25 02:50 Labs: Lab Results 06/14/25 06/14/25 06/14/25 Range/Units 19:21 19:22 21:45 WBC 8.0 (4.5-10.0) K/mm3 RBC 3.48 L (4.6-6.20) M/mm3 Hgb 9.9 L (14.0-18.0) g/dL Hct 29.3 L (42.0-52.0) % MCV 84.2 (80-100) fl MCH 28.4 (26-34) pg MCHC 33.8 (32-36) g/dl RDW 14.9 H (11.5-14.5) % Plt Count 206 (150-375) k/mm3 MPV 11.3 H (7.4-10.4) fl Immature Gran % (Auto) 0.2 (0-0.5) % Neut % (Auto) 76.8 H (45.5-73.1) % Lymph % (Auto) 14.6 L (18.3-44.2) % Kerr % (Auto) 4.6 (2.6-8.5) % Eos % (Auto) 3.4 (0-4.4) % Baso % (Auto) 0.4 (0.2-1.2) % Lymph # (Auto) 1.17 (0.9-3.2) K/mm3 Kerr # (Auto) 0.4 (0.1-0.6) K/mm3 Eos # (Auto) 0.3 (0-0.3) K/mm3 Baso # (Auto) 0.0 (0.0-0.1) K/mm3 Abs Immat Gran (auto) 0.02 (0.00-0.031) K/mm3 Absolute Neuts (auto) 6.2 (1.3-6.7) K/mm3 Absolute Nucleated RBC 0.000 (0.0-0.012) K/mm3 Nucleated RBC % 0.0 (0.0-0.2) % Sodium 125 L (137-145) mmol/L Potassium 4.2 (3.4-5.0) mmol/L Chloride 93 L (98-107) mmol/L Carbon Dioxide 24 (22-30) mmol/L Anion Gap 8 (4-12) mmol/L BUN 5 L D (9-20) mg/dL Creatinine 0.74 (0.7-1.3) mg/dL Estim Creat Clear Calc 83 ml/min Estimated GFR > 60 (59 - ) Glucose 105 (65-110) mg/dL Calcium 9.7 (8.4-10.2) mg/dL Total Bilirubin 0.5 (0.2-1.3) mg/dL AST 19 (17-59) U/L ALT 11 (6-50) U/L Alkaline Phosphatase 68 (38-126) U/L Troponin I < 0.012 (0.000-0.034) ng/mL Total Protein 7.4 (6.3-8.2) g/dL Albumin 4.1 (3.5-5.1) g/dL Urine Color Yellow (Yellow) Urine Appearance Clear (Clear) Urine pH 7.0 (5.0-9.0) Ur Specific [place] 1.002 (1.001-1.035) Urine Protein Negative (Negative) mg/dL Urine Glucose (UA) Negative (Negative) mg/dL Urine Ketones Negative (Negative) mg/dL Ur Blood (Man) Negative (Negative) Urine Nitrate Negative (Negative) Urine Bilirubin Negative (Negative) Urine Urobilinogen 0.2 (<2.0) mg/dL Leukocyte Esterase Rfl Negative (Negative) BENTLEY/UL Urine RBC 0-2 (0-2) /hpf Urine WBC 0-5 (0-3) /hpf Ur Squamous Epith Cells None seen (Few) /hpf Urine Bacteria None seen /hpf Urine Casts 0-2 Urine Osmolality Pending Ur Random Creatinine Pending Ur Random Sodium meq/L Ur Random Potassium < 20.0 meq/L Urine Chloride Pending Influenza A (RT-PCR) Negative (Negative) Influenza B (RT-PCR) Negative (Negative) SARS-CoV-2 RNA (RT-PCR) Negative (Negative) Imaging Data Attestation: I personally reviewed and interpreted this imaging study as follows: My impression: Impressions Chest X-Ray 06/14/25 20:08 Impression: 1: Persistent left basilar infiltrates which may represent atelectasis/scarring or atypical pneumonia. Critical Care Time Critical Care Time Critical Care Time: Yes Total Critical Care Time: 35 Discharge Plan Discharge Clinical Impression: Hyponatremia, Chronic hiccups, Psychogenic polydipsia, Pneumonia Clinical Impression: (Ruled Out): Hiccup Patient Disposition: Still a Patient Condition: Stable
[2025-06-14 20:02] LABS: Non Pathogenic Casts 0-2
[2025-06-14 20:08] LABS: Add Urine Microscopic? NO; Appearance Urine Clear (Clear); Glucose Urine UA Negative (Negative); Leukocyte Esterase Ur Negative LEU/UL (Negative); Nitrate Urine Negative (Negative); Specific Grav Ur 1.002 (1.001-1.035)
[2025-06-14 20:13] VITALS: BP 152/73; PULSE 77; RESP 19; O2SAT 96
[2025-06-14 20:26] LABS: Influenza A QL RT-PCR Negative (Negative); Influenza B QL RT-PCR Negative (Negative); SARS-CoV-2 RNA PCR Negative (Negative)
[2025-06-14 21:57] LABS: Hematocrit 29.3 % (42.0-52.0); Hemoglobin 9.9 g/dL (14.0-18.0); Immature Granulocyte Percent A 0.2 % (0-0.5); Lymphocytes Absolute Auto 1.17 K/mm3 (0.9-3.2); Mean Corpuscular HGB Conc 33.8 g/dl (32-36); Mean Corpuscular Hemoglobin 28.4 pg (26-34); Mean Corpuscular Volume 84.2 fl (80-100); Nucleated Red Blood Cells Absolute Auto 0.000 K/mm3 (0.0-0.012); Nucleated Red Blood Cells Perc 0.0 % (0.0-0.2); Platelet Count Result 206 k/mm3 (150-375); Red Blood Count 3.48 M/mm3 (4.6-6.20); White Blood Count 8.0 K/mm3 (4.5-10.0)
[2025-06-14 22:04] LABS: Alanine Aminotransferase 11 U/L (6-50); Albumin Level 4.1 g/dL (3.5-5.1); Alkaline Phosphatase 68 U/L (38-126); Anion Gap 8 mmol/L (4-12); Aspartate Amino Transferase 19 U/L (17-59); Bilirubin,Total 0.5 mg/dL (0.2-1.3); Blood Urea Nitrogen 5 mg/dL (9-20); Calcium 9.7 mg/dL (8.4-10.2); Carbon Dioxide 24 mmol/L (22-30); Chloride 93 mmol/L (98-107); Estimated CRCL calculation 83 ml/min; Estimated Glomerular Filt Rate > 60; Glucose 105 mg/dL (65-110); Potassium 4.2 mmol/L (3.4-5.0); Sodium 125 mmol/L (137-145); Total Protein 7.4 g/dL (6.3-8.2)
[2025-06-14 22:16] LABS: Troponin I < 0.012 ng/mL (0.000-0.034)
--- NOTE | 2025-06-14 22:56 | PC.NURSE ---
Patient ambulated without difficulty. no dizziness noted.
[2025-06-14 22:58] VITALS: BP 162/82; PULSE 81; RESP 20; O2SAT 100
[2025-06-14] MEDS: cefTRIAXone 1 GM in SODIUM CHLORIDE 0.9% IV 50 ML 100 ML IVPB (23:05)
[2025-06-14] MEDS: AZITHROMYCIN IV 500 MG in SODIUM CHLORIDE 0.9% IV 250 ML IVPB (23:43)
[2025-06-14] MEDS: SODIUM CHLORIDE 500 MG TABLET 1000 MG PO (23:54)
[2025-06-15 00:33] VITALS: BMI 25.0
--- NOTE | 2025-06-15 00:41 | ADMGEN ---
This patient, Mark Hines, was admitted to Medical Room 343-01. Patient/family oriented to hospital policies and general routines including ID bracelet, bed and alarms, visiting hours, pain management, procedures, bathroom and other care routines, personal items, smoking policy, room service/diet, and visiting hours. Information on how to activate the Rapid Response Team has been discussed. Patient/Family are encouraged to report perceived risks to care and to ask questions if they do not understand what they are told or what they should do.
--- NOTE | 2025-06-15 01:18 | PM.IMHP ---
H&P: HPI History of Present Illness Date/Time: 06/15/25 01:18 Chief Complaint: Dizziness, nausea, vomiting Narrative: 64-year-old male, well known to me from prior hospitalizations, with a past medical history of psychogenic polydipsia with recurrent hyponatremia, COPD, essential hypertension, hyperlipidemia, 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 The patient reports that these are his usual symptoms whenever he becomes hyponatremic. He reports that he drinks a bunch of water and then cannot keep it down due to the hiccups and starts vomiting. He then becomes dizzy. He has had intractable hiccups for 5 years and is failed multiple medication adjustments for the symptoms. The last time he was in the hospital staff tried to increased patient's gabapentin and baclofen without improvement in symptoms. Patient was subsequently discharged back home on the same medications. During his prior hospitalization his Protonix was also switched to Pepcid which did not seem does change the significance of the patient's hyponatremia. On each of the patient's recent prior admissions patient had rapid correction of sodium with only fluid restriction attempts and required DDAVP and free water administration. And initially planned to the os patient to have relatively normal access to water and give the patient a dose of sodium chloride. However the patient again that has not had anything to eat or drink since presentation to the ER but 8 hours ago. Repeat BMP was being drawn as I arrived to the patient's bedside and was not yet available for review. But he reports that his symptoms have completely resolved and he is back to baseline. I did have difficulty obtaining information from the patient this hospitalization as both of his hearing aid to and he is extremely hard of hearing. Review of Systems Review of Systems: Review of systems limited due to the patient's hearing loss. The patient's hearing aids had just prior to my evaluation [facility] Past Medical History Medical History (Updated 06/15/25 @ 03:47 by Esthela Juan DO) Wears hearing aid in both ears Adenomatous colon polyp Asthma-COPD overlap syndrome Hiatal hernia Other osteonecrosis, left femur Other osteonecrosis, right femur Psychogenic polydipsia Erosive esophagitis Anemia of chronic disease Chronic hiccups Hyponatremia Tobacco abuse Normocytic anemia Glaucoma Legally blind. Hyperlipidemia Hypertension Surgical History Surgical History History of enucleation of eye Right, secondary to recurrent infection. Family History Family History Grandparent Acute myocardial infarction Mother Acute myocardial infarction Skin cancer Father Acute myocardial infarction Sibling Cancer Social History Social History Social History: Surrogate decision maker: Svitlana Hines, . Code status: Full code. Smoking packs per day: 1.5 Smoking cigarettes per day: 30.0 Years smoked: 50 Smoking pack-years: 75.00 Smoking status: Former smoker Tobacco type: cigarettes Second hand tobacco smoke exposure: No Smoking end date: 05/21/20 Alcohol intake: current Drinks per week: 3 Substance use: never Substance use type: does not use Do You Feel Safe in your Home?: Yes Lack of Transportation: No Lack of Food: Never True Current Housing: I Have Housing Concerned About Future Housing: No Difficulty Paying Gas/Electric Bills: No Difficulty Paying for Meds: No Currently Unemployed: No Education: High School Diploma/GED Difficulty w/ Childcare or Family Care: No Living arrangements: with family Additional living arrangements comments: The patient lives with his of 43 years in [place]. He and his had 4 children 1 of which at . His remaining children are healthy. 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 Spiritual care concerns: No Meds Home Medications and Allergies Home Medications ?Medication ?Instructions ?Recorded ?Confirmed ?Type losartan 50 mg tablet 50 mg PO DAILY 03/02/21 06/15/25 History montelukast 10 mg tablet 10 mg PO HS 03/02/21 06/15/25 History pravastatin 80 mg tablet 80 mg PO DAILY 03/02/21 06/15/25 History cholecalciferol (vitamin D3) 25 25 mcg PO DAILY 03/29/21 06/15/25 History mcg (1,000 unit) capsule (Vitamin D3) cyanocobalamin (vitamin B-12) 100 2,000 mcg PO DAILY 03/29/21 06/15/25 History mcg tablet albuterol sulfate 90 mcg/actuation 1 inh inhalation QID PRN shortness 05/02/21 06/15/25 Rx aerosol inhaler of breath or wheezing #8.5 grams dorzolamide 22.3 mg-timolol 6.8 1 drp LEFT EYE TID 06/29/24 06/15/25 History mg/mL eye drops budesonide-formoterol HFA 80 2 puff inhalation Q12H 12/26/24 06/15/25 History mcg-4.5 mcg/actuation aerosol inhaler gabapentin 300 mg capsule 300 mg PO DAILY 12/26/24 06/15/25 History pantoprazole 40 mg tablet,delayed 40 mg PO BID 30 days #60 tabs 12/27/24 06/15/25 Rx release chlorpromazine 25 mg tablet 25 mg PO Q6H PRN Hiccups #30 tabs 01/11/25 06/15/25 Rx aspirin 81 mg tablet,delayed 81 mg PO DAILY 03/25/25 06/15/25 History release (Adult Aspirin Regimen) baclofen 5 mg tablet 5 mg PO BID 04/24/25 06/15/25 History Allergies Allergy/AdvReac Type Severity Reaction Status Date / Time No Known Allergies Allergy Verified 06/14/25 18:54 Vital Signs Vital Signs - 24 hr 06/14/25 17:42 06/14/25 18:41 06/14/25 20:13 Temperature 98.2 F 97.9 F Pulse Rate 81 75 77 Respiratory Rate 21 H 20 19 Blood Pressure 139/58 L 155/74 H 152/73 H Pulse Oximetry 97 99 96 Oxygen Delivery Room Air Room Air 06/14/25 22:58 Temperature Pulse Rate 81 Respiratory Rate 20 Blood Pressure 162/82 H Pulse Oximetry 100 Oxygen Delivery Exam Narrative: Weight 72.5 kg BMI 25.1 Const: Other: Thin body habitus, appears older than stated age, no acute distress HENMT: Other: Mucous membranes are moist, no oral pharyngeal erythema, poor dentition Eyes: Other: Right eye a is enucleated, chronic scarring to the left eye Neck: Other: No JVD, no lymphadenopathy Resp: Other: Decreased breath sounds bilaterally, no increased work of breathing Cardio: Other: Regular rate, regular rhythm, 2+ bilateral radial pedal pulses, no JVD GI: Other: Soft, nontender, nondistended, positive bowel sounds Skin: Other: Tanned, loss of subcutaneous fat, sunken cheeks Neuro: Other: Alert oriented x4, speech is clear but slow, moves all extremities equally, significant bilateral hearing loss, blind with only sensation of light in the left eye Extrem: Other: Mild muscle wasting, no clubbing, cyanosis or edema, moves all extremities equally Psych: Other: Flat affect, cooperative H&P: Results Labs Labs: Laboratory Tests 06/14/25 21:45 06/14/25 06/14/25 06/14/25 19:21 19:22 21:45 WBC 8.0 RBC 3.48 L Hgb 9.9 L Hct 29.3 L MCV 84.2 MCH 28.4 MCHC 33.8 RDW 14.9 H Plt Count 206 MPV 11.3 H Immature Gran % (Auto) 0.2 Neut % (Auto) 76.8 H Lymph % (Auto) 14.6 L [place] % (Auto) 4.6 Eos % (Auto) 3.4 Baso % (Auto) 0.4 Lymph # (Auto) 1.17 [place] # (Auto) 0.4 Eos # (Auto) 0.3 Baso # (Auto) 0.0 Abs Immat Gran (auto) 0.02 Absolute Neuts (auto) 6.2 Absolute Nucleated RBC 0.000 Nucleated RBC % 0.0 Sodium 125 L Potassium 4.2 Chloride 93 L Carbon Dioxide 24 Anion Gap 8 BUN 5 L D Creatinine 0.74 Estim Creat Clear Calc 83 Estimated GFR > 60 Glucose 105 Calcium 9.7 Total Bilirubin 0.5 AST 19 ALT 11 Alkaline Phosphatase 68 Troponin I < 0.012 Total Protein 7.4 Albumin 4.1 Urine Color Yellow Urine Appearance Clear Urine pH 7.0 Ur Specific [place] 1.002 Urine Protein Negative Urine Glucose (UA) Negative Urine Ketones Negative Ur Blood (Man) Negative Urine Nitrate Negative Urine Bilirubin Negative Urine Urobilinogen 0.2 Leukocyte Esterase Rfl Negative Urine RBC 0-2 Urine WBC 0-5 Ur Squamous Epith Cells None seen Urine Bacteria None seen Urine Casts 0-2 Urine Osmolality Pending Ur Random Creatinine Pending Ur Random Sodium Ur Random Potassium < 20.0 Urine Chloride Pending Influenza A (RT-PCR) Negative Influenza B (RT-PCR) Negative SARS-CoV-2 RNA (RT-PCR) Negative 06/15/25 01:08 WBC RBC Hgb Hct MCV MCH MCHC RDW Plt Count MPV Immature Gran % (Auto) Neut % (Auto) Lymph % (Auto) [place] % (Auto) Eos % (Auto) Baso % (Auto) Lymph # (Auto) [place] # (Auto) Eos # (Auto) Baso # (Auto) Abs Immat Gran (auto) Absolute Neuts (auto) Absolute Nucleated RBC Nucleated RBC % Sodium Pending Potassium Pending Chloride Pending Carbon Dioxide Pending Anion Gap Pending BUN Pending Creatinine Pending Estim Creat Clear Calc Pending Estimated GFR Pending Glucose Pending Calcium Pending Total Bilirubin AST ALT Alkaline Phosphatase Troponin I Total Protein Albumin Urine Color Urine Appearance Urine pH Ur Specific [place] Urine Protein Urine Glucose (UA) Urine Ketones Ur Blood (Man) Urine Nitrate Urine Bilirubin Urine Urobilinogen Leukocyte Esterase Rfl Urine RBC Urine WBC Ur Squamous Epith Cells Urine Bacteria Urine Casts Urine Osmolality Ur Random Creatinine Ur Random Sodium Ur Random Potassium Urine Chloride Influenza A (RT-PCR) Influenza B (RT-PCR) SARS-CoV-2 RNA (RT-PCR) Impressions Chest X-Ray 06/14/25 20:08 Impression: 1: Persistent left basilar infiltrates which may represent atelectasis/scarring or atypical pneumonia. Assessment and Plan Assessment and plan (1) Psychogenic polydipsia: Code(s): R63.1 - Polydipsia; F54 - Psychological and behavioral factors associated with disorders or diseases classified elsewhere Status: Chronic (2) Acute hyponatremia: Code(s): E87.1 - Hypo-osmolality and hyponatremia Status: Acute (3) Chronic hiccups: Code(s): R06.6 - Hiccough Status: Acute Plan The patient presents with recurrent symptomatic hyponatremia due to psychogenic polydipsia in the setting of chronic intractable hiccups. Other causes for the patient's polydipsia been ruled out including hypothyroidism, malignancy, chronic pain insignificant medication effect. The patient is admitted to drinking at least 3 L of water a day in addition to choose soda and other beverages. This is his 5th admission for the same problem since December and is 2nd admission this month. Patient was admitted in this setting and placed on a 2 L fluid restriction. When I arrived to the patient's room he has still had not received a water pitcher at bedside. He had not had anything noted uterus drink for about 8 hours. Lab was drawing his repeat BMP at the time of my evaluation. Patient reported resolution of his prior symptoms already. He had received 1 dose of sodium chloride tablet about an hour prior. Repeat sodium level came back 2 hours after had been ordered and had increased from 125 up to 136. And I ordered a dose DDAVP and started the patient on D5W and eliminated the patient's fluid restriction. Will consult Nephrology. Requested nursing staff to be time the next BMP until 4 hours after D5W has been started. During his last hospitalization the patient Protonix been discontinued and switched to Pepcid the patient is back to taking Protonix at this time. Per the home med rec. Will switch back to Pepcid. Remainder the patient's home medications have been reviewed and resumed as appropriate. MEDICAL DECISION MAKING NARRATIVE -Spoke with the ED provider in detail regarding patient's evaluation, workup and management -Patient seen and examined at bedside -Collaborated with patient's nurse at the bedside in detail and addressed all concerns -Labs, electrolytes, radiology, investigations and test results personally reviewed and interpreted unless otherwise specified -ED/Consult/Nursing/Ancilliary notes on the chart reviewed and appreciated -Spoke with patient at bedside and diagnosis and plan of care was discussed. All questions answered. Quality VTE Prophylaxis VTE prophylaxis: pharmacologic ordered (Lovenox 40 mg subQ daily.) Hospitalist [facility] Advance Care Plan I have confirmed that the patient's Advanced Care Plan is present, code status is documented, or surrogate decision maker is listed in patient medical record.: Yes Medication Reconciliation I have utilized all available resources to obtain, update and review the patients current medications (includes all prescriptions, OTC, herbals, cannabis, and nutritional supplements).: Yes
[2025-06-15 01:26] VITALS: BP 135/71; PULSE 86; RESP 16; TEMP 36.9; O2SAT 97
[2025-06-15 03:05] LABS: Anion Gap 8 mmol/L (4-12); Blood Urea Nitrogen 5 mg/dL (9-20); Calcium 9.8 mg/dL (8.4-10.2); Carbon Dioxide 27 mmol/L (22-30); Chloride 101 mmol/L (98-107); Estimated CRCL calculation 79 ml/min; Estimated Glomerular Filt Rate > 60; Glucose 110 mg/dL (65-110); Potassium 4.4 mmol/L (3.4-5.0); Sodium 136 mmol/L (137-145)
[2025-06-15] MEDS: DESMOPRESSIN ACETATE 4 MCG/ML AMP 2 MCG IV PUSH (03:49)
[2025-06-15] MEDS: DEXTROSE 5% IN WATER 250 ML 125 ML IV CONT (03:49)
[2025-06-15 04:00] VITALS: PULSE 88
[2025-06-15] MEDS: DORZOLAMIDE/TIMOLOL OPHTH SOL 10 ML BOTTLE 1 DROP LEFT EYE ×2 (05:04→13:50)
[2025-06-15 06:00] VITALS: BP 122/68; PULSE 84; RESP 16; TEMP 36.6; O2SAT 97
[2025-06-15] MEDS: FLUTICASONE/SALMETEROL 45-21 MCG INHALER 1 PUFF 2 PUFF INHALATION (07:07)
[2025-06-15 07:08] VITALS: PULSE 80; RESP 16
[2025-06-15 07:22] LABS: Anion Gap 7 mmol/L (4-12); Blood Urea Nitrogen 6 mg/dL (9-20); Calcium 9.1 mg/dL (8.4-10.2); Carbon Dioxide 24 mmol/L (22-30); Chloride 101 mmol/L (98-107); Estimated CRCL calculation 80 ml/min; Estimated Glomerular Filt Rate > 60; Glucose 105 mg/dL (65-110); Potassium 4.3 mmol/L (3.4-5.0); Sodium 132 mmol/L (137-145)
[2025-06-15 08:00] VITALS: PULSE 80
[2025-06-15] MEDS: FAMOTIDINE 20 MG TABLET PO (08:46)
[2025-06-15] MEDS: BACLOFEN 5 MG TABLET PO (08:46)
[2025-06-15] MEDS: ASPIRIN 81 MG ENTERIC TABLET PO (08:46)
[2025-06-15] MEDS: GABAPENTIN 300 MG CAPSULE PO (08:46)
[2025-06-15] MEDS: PRAVASTATIN SODIUM 20 MG TABLET 80 MG PO (08:46)
[2025-06-15] MEDS: LOSARTAN POTASSIUM 50 MG TABLET PO (08:46)
[2025-06-15] MEDS: CHOLECALCIFEROL (VITAMIN D3) 25 MCG (1,000 UNITS) TABLET PO (08:46)
[2025-06-15] MEDS: CYANOCOBALAMIN 1,000 MCG TABLET 2000 MCG PO (08:47)
[2025-06-15] MEDS: ENOXAPARIN 40 MG/0.4 ML SYRINGE SUB-Q (08:47)
[2025-06-15 11:30] LABS: Anion Gap 8 mmol/L (4-12); Blood Urea Nitrogen 8 mg/dL (9-20); Calcium 9.6 mg/dL (8.4-10.2); Carbon Dioxide 26 mmol/L (22-30); Chloride 98 mmol/L (98-107); Estimated CRCL calculation 74 ml/min; Estimated Glomerular Filt Rate > 60; Glucose 106 mg/dL (65-110); Potassium 4.7 mmol/L (3.4-5.0); Sodium 132 mmol/L (137-145)
[2025-06-15 12:00] VITALS: PULSE 80
--- NOTE | 2025-06-15 14:33 | P.DS_ITS ---
DS: Admitting Diagnosis Discharge Date 06/15/25 Admitting Diagnosis Dizziness, nausea, vomiting DS: Discharge Diagnosis Discharge Diagnosis (1) Psychogenic polydipsia: Code(s): R63.1 - Polydipsia; F54 - Psychological and behavioral factors associated with disorders or diseases classified elsewhere Status: Chronic (2) Acute hyponatremia: Code(s): E87.1 - Hypo-osmolality and hyponatremia Status: Acute (3) Chronic hiccups: Code(s): R06.6 - Hiccough Status: Acute DS: Summary Hospital Course Reason for hospitalization: 64yo male with psychogenic polydipsia with recurrent hyponatremia, COPD, essential hypertension, hyperlipidemia, 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 Please see H&P for details. Hospital Course: The patient presents with recurrent symptomatic hyponatremia due to psychogenic polydipsia in the setting of chronic intractable hiccups. Other causes for the patient's polydipsia been ruled out including hypothyroidism, malignancy, chron ic pain insignificant medication effect. The patient admits to drinking at least 3 L of water a day in addition to choose soda and other beverages. This is his 5th admission for the same problem since December and is 2nd admission this month. Sodium was 125 on admission. Patient was admitted in this setting and placed on a 2 L fluid restriction. Repeat sodium level had increased to 136. A dose of DDAVP ordered and patient placed on D5W. Repeat sodium trended to 132. Discussed with nephrology who felt this was okay. He is eating normally here without issue. CXR showing a persistent left basilar infiltrate c/e atelectasis or atypical PNA. Patient denies any increased SOB cough or congestion. WBC normal. [place] these imaging findings are residual from his recent pneumonia. The ER provider given the patient 1 dose of Rocephin and azithromycin but abx were not continued after admission. He will see his PCP in about 10 days. Would consider repeat imaging to ensure clearance but defer to his PCP. He feels ready for discharge. He overall did well and was able to be discharged home on 06/15/25. Long discussion with him about the benefit to minimize water intake. He overall did well and was able to be discharged home on 06/15/2025. Status at Discharge Cognitive/behavioral status at discharge: stable Time Spent with Patient Time attestation: Total time spent providing and/or coordinating discharge services: 34 minutes Time spent: Greater than 30 minutes Exam Narrative: AF 98.0 122/68 80 16 97% ra Gen - NARD Chest - bibasilar crackles. nml RR CV - RRR S1/S2. Tele showing no significant dysrhythmias Abd - Soft, NT/ND, Positive BS Ext - No pedal edema Psych - Nml mood and affect Skin - Warm and dry DS: Data Data Completed and Pending Labs on day of discharge: Labs from last 24 hours 06/15/25 06/15/25 06/15/25 11:02 06:50 02:50 WBC RBC Hgb Hct MCV MCH MCHC RDW Plt Count MPV Immature Gran % (Auto) Neut % (Auto) Lymph % (Auto) [place] % (Auto) Eos % (Auto) Baso % (Auto) Lymph # (Auto) [place] # (Auto) Eos # (Auto) Baso # (Auto) Abs Immat Gran (auto) Absolute Neuts (auto) Absolute Nucleated RBC Nucleated RBC % Sodium 132 L 132 L 136 L Potassium 4.7 4.3 4.4 Chloride 98 101 101 Carbon Dioxide 26 24 27 Anion Gap 8 7 8 BUN 8 L 6 L 5 L Creatinine 0.84 0.77 0.78 Estim Creat Clear Calc 74 80 79 Estimated GFR > 60 > 60 > 60 Glucose 106 105 110 Calcium 9.6 9.1 9.8 Total Bilirubin AST ALT Alkaline Phosphatase Troponin I Total Protein Albumin Urine Color Urine Appearance Urine pH Ur Specific [place] Urine Protein Urine Glucose (UA) Urine Ketones Ur Blood (Man) Urine Nitrate Urine Bilirubin Urine Urobilinogen Leukocyte Esterase Rfl Urine RBC Urine WBC Ur Squamous Epith Cells Urine Bacteria Urine Casts Urine Osmolality Ur Random Creatinine Ur Random Sodium Ur Random Potassium Urine Chloride Influenza A (RT-PCR) Influenza B (RT-PCR) SARS-CoV-2 RNA (RT-PCR) 06/14/25 06/14/25 06/14/25 21:45 19:22 19:21 WBC 8.0 RBC 3.48 L Hgb 9.9 L Hct 29.3 L MCV 84.2 MCH 28.4 MCHC 33.8 RDW 14.9 H Plt Count 206 MPV 11.3 H Immature Gran % (Auto) 0.2 Neut % (Auto) 76.8 H Lymph % (Auto) 14.6 L [place] % (Auto) 4.6 Eos % (Auto) 3.4 Baso % (Auto) 0.4 Lymph # (Auto) 1.17 [place] # (Auto) 0.4 Eos # (Auto) 0.3 Baso # (Auto) 0.0 Abs Immat Gran (auto) 0.02 Absolute Neuts (auto) 6.2 Absolute Nucleated RBC 0.000 Nucleated RBC % 0.0 Sodium 125 L Potassium 4.2 Chloride 93 L Carbon Dioxide 24 Anion Gap 8 BUN 5 L D Creatinine 0.74 Estim Creat Clear Calc 83 Estimated GFR > 60 Glucose 105 Calcium 9.7 Total Bilirubin 0.5 AST 19 ALT 11 Alkaline Phosphatase 68 Troponin I < 0.012 Total Protein 7.4 Albumin 4.1 Urine Color Yellow Urine Appearance Clear Urine pH 7.0 Ur Specific [place] 1.002 Urine Protein Negative Urine Glucose (UA) Negative Urine Ketones Negative Ur Blood (Man) Negative Urine Nitrate Negative Urine Bilirubin Negative Urine Urobilinogen 0.2 Leukocyte Esterase Rfl Negative Urine RBC 0-2 Urine WBC 0-5 Ur Squamous Epith Cells None seen Urine Bacteria None seen Urine Casts 0-2 Urine Osmolality Pending Ur Random Creatinine Pending Ur Random Sodium Ur Random Potassium < 20.0 Urine Chloride Pending Influenza A (RT-PCR) Negative Influenza B (RT-PCR) Negative SARS-CoV-2 RNA (RT-PCR) Negative Discharge Plan Discharge Attending physician on discharge: Jeremías Lee Consulting providers: Marla Lopez Discharging Clinician: Jeremías Lee Anticipated Discharge Date/Time: 06/15/25 14:47 Patient Disposition: Home Activity: as tolerated Diet: regular Discharge Instructions: Limit water intake to less than 1.5Liters per day. Take precautions to avoid falls. Rise slowly from a lying or sitting position. Pause before standing or walking. Contact your doctor or call 911 and come to the Emergency Room if you have fevers, lightheadedness with standing or other worrisome symptoms. Avoid NSAIDs (ibuprofen, naproxen, Aleve). Tylenol is safe to take. Follow-up with your primary care provider in 1-2 weeks. Please call for appointment. Talk with your doctor about repeating imaging of your chest to make sure the pneumonia has gone away as we spoke about Thank you for using [facility] for your health care needs. Patient Instructions: Antibiotic Form Patient Language: Guyanese Stand Alone Forms: General Discharge Information Follow-up/Referrals: Arlette,TRAVIS Lawler [Primary Care Provider, Unknown] - Call for Appointment Referral Note: Patient will need followup imaging to ensure clearance of his pneumonia Discharge Medications: New famotidine 20 mg Tablet 20 mg PO Q12HR Qty: 60 0RF Continued baclofen 5 mg tablet 5 mg PO BID losartan 50 mg tablet 50 mg PO DAILY pravastatin 80 mg tablet 80 mg PO DAILY montelukast 10 mg tablet 10 mg PO HS albuterol sulfate 90 mcg/actuation HFA aerosol inhaler 1 inh inhalation QID PRN (Reason: shortness of breath or wheezing) Qty: 8.5 0RF dorzolamide-timolol 22.3-6.8 mg/mL drops 1 drp LEFT EYE TID gabapentin 300 mg capsule 300 mg PO DAILY budesonide-formoterol 80-4.5 mcg/actuation HFA aerosol inhaler 2 puff INHALATION Q12H cyanocobalamin (vitamin B-12) 100 mcg Tablet 2,000 mcg PO DAILY cholecalciferol (vitamin D3) [Vitamin D3] 25 mcg (1,000 unit) Capsule 25 mcg PO DAILY chlorpromazine 25 mg Tablet 25 mg PO Q6H PRN (Reason: Hiccups) Qty: 30 0RF aspirin [Adult Aspirin Regimen] 81 mg tablet,delayed release (DR/EC) 81 mg PO DAILY Discontinued pantoprazole 40 mg tablet,delayed release (DR/EC) 40 mg PO BID 30 Days Qty: 60 5RF Date of admission: 06/14/25 23:07 Primary Care Provider: CelineNuris Admitting Provider: Esthela Juan Attending physician on admission: Esthela Juan Condition: Stable Hospitalist MIPS Heart Failure (Exclusion) Patient has history of Heart Transplant or Left Ventricular Assistive Device?: No IF YES, STOP HERE Heart Failure (Qualifier) Patient has current or prior documentation of LVEF less than or equal to 40%, or mod/servere depressed LVSF?: No IF NO, STOP HERE
[2025-06-16 11:08] LABS: Chloride, Urine <20 mmol/L (Not Estab.)
[2025-06-22 01:07] LABS: Osmolality, Urine 50 mOsmol/kg (.)
== END 2025-06-15 15:05 | disposition home or self-care (01) | DRG 641 ==
LOC: ANHED 19:35 → ANH3MED 23:40
PROVIDERS: Admitting Provider Internal Medicine; Emergency Provider Student in an Organized Health Care Education/Training Program; PCP Physician Assistant; Visit Provider Internal Medicine
DX: E87.1 Hypo-osmolality and hyponatremia (principal); I10 Essential (primary) hypertension; J44.9 Chronic obstructive pulmonary disease, unspecified; D63.8 Anemia in other chronic diseases classified elsewhere; E78.5 Hyperlipidemia, unspecified; K44.9 Diaphragmatic hernia without obstruction or gangrene; R63.1 Polydipsia; R06.6 Hiccough; H54.8 Legal blindness, as defined in USA; Z20.822 Contact with and (suspected) exposure to COVID-19; Z79.82 Long term (current) use of aspirin; Z90.01 Acquired absence of eye
CPT/HCPCS: 36415; 71046; 80048; 80053; 81003; 82436; 82570; 83935; 84133; 84300; 84484; 85025; 87636; 93005; 94640; 99285; A9270; J0456; J0696; J1650; J2597; J7050; J7060

== ENCOUNTER 2025-06-19 18:03 | Inpatient (IN) | payer MEDICARE, SELFPAY ==
--- NOTE | ~2025-06-19 | CT_ITS ---
CT HEAD NON-CONTRAST Clinical History: altered mental status Comparison: 03/24/2025 Technique: Unenhanced axial images skull base to vertex Coronal, sagittal reformats CT images acquired with automatic exposure control for dose reduction DLP: 757 mGy-cm Findings: Sulci, ventricles: Unremarkable. No intracerebral hemorrhage. No evidence acute territorial infarct. No mass effect, midline shift. Bony calvarium intact. Visualized paranasal sinuses: Clear. Mastoid air cells: Clear. Right globe prosthesis IMPRESSION: 1. No acute intracranial findings. Reviewed, dictated and finalized at location R.
--- NOTE | ~2025-06-19 | XR_ITS ---
EXAMINATION: XR chest 1V DATE: 06/19/2025 18:38 INDICATION: Altered mental status TECHNIQUE: frontal view of the chest was obtained. COMPARISON: Chest radiograph dated 06/14/2025 FINDINGS: The lungs are clear with no focal airspace opacities, pulmonary edema, pleural effusion or pneumothorax. The cardiomediastinal silhouette is normal. Calcified left hilar and mediastinal lymph nodes consistent with old granulomatous disease. IMPRESSION: 1. No acute cardiopulmonary disease. Reviewed, dictated and finalized at location A.
--- OUTSIDE RECORDS SUMMARY | 2025-06-19 18:05 | XMS_ITS | Encounter Summary ---
Author Organization [facility] Healthcare Address [address] [place] [address] Care Team Providers Care Retail Commission Sales Associate Name Role Phone Nuris Berger Primary Care Provider [phone] Jonatan Stokes MD Unavailable [phone] Irma Bajwa MD Unavailable [phone] Brooke Plaza MA Unavailable Unavailable Reason for Visit * Reason Comments Chart Review Faxed records reques t to [facility] at [phone] Encounter Details Date Type Department Care Team (Late st Contact Info) Description 06/18/2025 DEBBIE IP Outreach [facility] Accountable Care Organization [address] [place] [id number] Brooke Plaza MA [address] [place] [address] [address] Social History Tobacco Use Types Packs/Day Years Used Date Smoking Tobacco: Former Cigarettes 0.8 40 0 09/1981 - 09/2021 Smokeless Tobacco: Never Alcohol Use Standard Drinks/Week Comments Yes 2 (1 standard drink = 0.6 oz pur e alcohol) social C Utilities Answer Date Recorded In the past 12 months has [employer] electric, gas, oil, or water company threatened [...] on file 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 Gender Identity Not on file Sexual Orientation Not on file Occupation Industry Job Start Date Job End Date Disabled Not on file Not on file Not on file documented as of this encounter Plan of Treatment Not on file documented as of this encounter Visit Diagnoses Not on filedocumented in this encounter Care Teams Retail Commission Sales Associate Relationship Specialty Start Date End Date Nuris Berger PA [address] [place] [address] PCP - General Internal Medicine 12/28/18 Jonatan Stokes MD [address] [place] [address] Consulting Physician Otolaryngology 03/27/20 Irma Bajwa MD [address] [place] [address] Consulting Physician Neurology 05/07/22 Brooke Plaza MA [address] [place] [address] ACO Care Editor Producer 06/18/25 documented as of this encounter
--- OUTSIDE RECORDS SUMMARY | 2025-06-19 18:05 | XMS_ITS | Encounter Summary ---
Author Organization [facility] Healthcare Address [address] [place] [address] Care Team Providers Care Travel Pta Name Role Phone Nuris Berger Primary Care Provider [phone]- [phone] Jonatan Stokes MD Unavailable [phone] Irma Bajwa MD Unavailable [phone] Brooke Plaza MA Unavailable Unavailable Encounter Details Date Type Department Care Team (Late st Contact Info) Description 05/29/2025 Orders Only [facility] Health Information Management [address] [place] [address] Scanning, Provider Social History Tobacco Use Types Packs/Day Years Used Date Smoking Tobacco: Former Cigarettes 0.8 40 0 09/1981 - 09/2021 Smokeless Tobacco: Never Alcohol Use Standard Drinks/Week Comments Yes 2 (1 standard drink = 0.6 oz pur e alcohol) social [facility] Utilities Answer Date Recorded In the past 12 months has [employer], gas, oil, or water [employer] threatened to shut off services in your [...] week 12/03/2023 How often do you attend [facility] or restorationist services? 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 Gender Identity Not on file Sexual Orientation Not on file Occupation Industry Job Start Date Job End Date Disabled Not on file Not on file Not on file documented as of this encounter Plan of Treatment Not on file documented as of this encounter Procedures Procedure Name Priority Date/Time Associated Diagnosis Comments SCAN - RADIOLOGY/IMAGING 05/29/2025 documented in this encounter Results * SCAN - RADIOLOGY/IMAGING (05/29/2025) Anatomical Region Laterality Modality Other us Provider Scanning Final Result documented in this encounter Visit Diagnoses Not on filedocumented in this encounter Care Teams Travel Pta Relationship Specialty Start Date End Date Nuris Berger PA [address] [facility] [address] [place] [address] PCP - General Internal Medicine 12/28/18 Jonatan Stokes MD [address] [place] [address] Consulting Physician Otolaryngology 03/27/20 Irma Bajwa MD [address] [facility] [place] [address] Consulting Physician Neurology 05/07/22 Brooke Plaza MA [address] [address] [address] [place] [address] ACO Care Bushing And Broach Operator 06/18/25 documented as of this encounter
--- OUTSIDE RECORDS SUMMARY | 2025-06-19 18:05 | XMS_ITS | Encounter Summary ---
Author Organization [facility] Healthcare Address [address] [place] [address] Care Team Providers Care Keymodule Assembly Machine Tender Name Role Phone Nuris Berger Primary Care Provider [phone] Jonatan Stokes MD Unavailable [phone] Irma Bajwa MD Unavailable [phone] Brooke Plaza MA Unavailable Unavailable Reason for Visit * Reason Comments Unsuccessful Phone Call 1 Encounter Details Date Type Department Care Team (Late st Contact Info) Description 06/19/2025 DEBBIE IP Outreach [facility] Accountable Care Organization [address] [place] [address] Brooke Plaza MA [address] [place] [address] [facility] [address] [place] [address] Social History Tobacco Use Types Packs/Day Years Used Date Smoking Tobacco: Former Cigarettes 0.8 40 0 09/1981 - 09/2021 Smokeless Tobacco: Never Alcohol Use Standard Drinks/Week Comments Yes 2 (1 standard drink = 0.6 oz pur e alcohol) social [facility] Utilities Answer Date Recorded In the past 12 months has [employer], gas, oil, or water company threatened [...] often do you attend chur ch or congregation services? Patient declined 12/03/2023 Do you belong to any clubs o r organizations such as amish groups, unions, fraternal or athletic groups, or [...] in a mcc (including now)? 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 Gender Identity Not on file Sexual Orientation Not on file Occupation Industry Job Start Date Job End Date Disabled Not on file Not on file Not on file documented as of this encounter Plan of Treatment Not on file documented as of this encounter Visit Diagnoses Not on filedocumented in this encounter Care Teams Keymodule Assembly Machine Tender Relationship Specialty Start Date End Date Nuris Berger PA [address] [facility] 500 [place] [address] PCP - General Internal Medicine 12/28/18 Jonatan Stokes MD [address] [place] [address] Consulting Physician Otolaryngology 03/27/20 Irma Bajwa MD [address] [place] [address] Consulting Physician Neurology 05/07/22 Brooke Plaza MA [address] [facility] [address] [place] [address] ACO Care Casting Supervisor 06/18/25 documented as of this encounter
--- OUTSIDE RECORDS SUMMARY | 2025-06-19 18:06 | XMS_ITS | Encounter Summary ---
Author Organization [facility] Healthcare Address [address] [place] [address] Care Team Providers Care Part Maker Name Role Phone Nuris Berger Primary Care Provider [phone]- [phone] Jonatan Stokes MD Unavailable [phone] Irma Bajwa MD Unavailable [phone] Ayla Dugan LPN Unavailable [phone] Brooke Plaza MA Unavailable Unavailable Encounter Details Date Type Department Care Team (Late st Contact Info) Description 12/26/2024 Orders Only [facility] Health Information Management [address] [place] [address] Scanning, Provider Social History Tobacco Use Types Packs/Day Years Used Date Smoking Tobacco: Former Cigarettes 0.8 40 0 09/1981 - 09/2021 Smokeless Tobacco: Never Alcohol Use Standard Drinks/Week Comments Yes 0 (1 standard drink = 0.6 oz pur e alcohol) social [facility] Utilities Answer Date Recorded In the past 12 months has [employer], gas, oil, or water company threatened [...] week 12/03/2023 How often do you attend [facility] or hoahaoism services? Patient declined 12/03/2023 Do you belong to any clubs o r organizations such as cheondoism groups, unions, fraternal or athletic groups, or [...] place to sleep or slept in a retirement (including now)? No 12/03/2023 Personal Safety Answer Date Recorded Have you ever been in or are you currently in a harmful physical or emotional relationship or is someone making you feel afraid or unsafe? 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 Gender Identity Not on file Sexual Orientation [...] on filedocumented in this encounter Care Teams Part Maker Relationship Specialty Start Date End Date Nuris Berger PA [address] [address] [place] [address] PCP - General Internal Medicine 12/28/18 Jonatan Stokes MD [address] [place] [address] Consulting Physician Otolaryngology 03/27/20 Irma Bajwa MD [address] [facility] [place] [address] Consulting Physician Neurology 05/07/22 Ayla Dugan LPN [address] [place] [address] [address] [place] [address] Financial Institution Manager 03/30/25 03/30/25 Brooke Plaza MA [address] [place] [address] ACO Care General Cargo Clerk 06/18/25 documented as of this encounter
--- OUTSIDE RECORDS SUMMARY | 2025-06-19 18:06 | XMS_ITS | Clinical Summary ---
Author Organization [facility] Address [facility] [place] [address] Care Team Providers Care Chief Clerk Name Role Phone Nuris Berger Primary Care Provider [phone] Allergies No known active allergies Medications albuterol [...] Comments Blood Pressure 120/62 09/04/2021 8:52 AM EKG/ECG TECHNICIAN Pulse 82 09/04/2021 8:52 AM EKG/ECG TECHNICIAN Temperature 36.3 C (97.4 F) 09/04/2021 8:52 AM EKG/ECG TECHNICIAN Respiratory Rate 16 09/04/2021 8:52 AM EKG/ECG TECHNICIAN Oxygen Saturation 97% 09/04/2021 8:52 AM EKG/ECG TECHNICIAN Inhaled Oxygen Concentration - - Weight 64.4 kg (142 lb) 09/04/2021 8:52 AM EKG/ECG TECHNICIAN Height 172.7 cm (5' 8) 09/04/2021 8:52 AM EKG/ECG TECHNICIAN Body Mass Index 21.59 09/04/2021 8:52 AM EKG/ECG TECHNICIAN Plan of Treatment Health Maintenance Due [...] age to complete this topic Insurance [employer] MEDICARE Care Teams Chief Clerk Relationship Specialty Start Date End Date Nuris Berger PA [address] [place] [address] PCP - General PHYSICIAN PATHOLOGY LABORATORY TECHNOLOGIST 06/09/21
--- OUTSIDE RECORDS SUMMARY | 2025-06-19 18:06 | XMS_ITS | Encounter Summary ---
Author Organization [facility] Healthcare Address [address] [place] [address] Care Team Providers Care World Renowned Chef And Restaurant Owner Name Role Phone Nuris Berger Primary Care Provider [phone] Jonatan Stokes MD Unavailable [phone] Irma Bajwa MD Unavailable [phone] Ayla Dugan LPN Unavailable [phone] Brooke Plaza MA Unavailable Unavailable Encounter Details Date Type Department Care Team (Late st Contact Info) Description 03/26/2025 Orders Only [facility] [place] Health Information Management [address] [place] [address] Scanning, Provider Social History Tobacco Use Types Packs/Day Years Used Date Smoking Tobacco: Former Cigarettes 0.8 40 0 09/1981 - 09/2021 Smokeless Tobacco: Never Alcohol Use Standard Drinks/Week Comments Yes 0 (1 standard drink = 0.6 oz pur e alcohol) social [facility] Utilities Answer Date Recorded In the past 12 months has [employer], gas, oil, or water company threatened [...] 12/03/2023 How often do you attend [facility] or scientologist services? 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 Gender Identity Not on file Sexual [...] on filedocumented in this encounter Care Teams World Renowned Chef And Restaurant Owner Relationship Specialty Start Date End Date Nuris Berger PA [address] [facility] [address] [place] [address] PCP - General Internal Medicine 12/28/18 Jonatan Stokes MD [address] [place] [address] Consulting Physician Otolaryngology 03/27/20 Irma Bajwa MD [address] [facility] [place] [address] Consulting Physician Neurology 05/07/22 Ayla Dugan LPN [address] [place] [address] [address] [place] [address] Construction Supervisor/Carpenter 03/30/25 03/30/25 Brooke Plaza MA [address] [facility] [place] [address] ACO Care Assistant Community Manager 06/18/25 documented as of this encounter
--- OUTSIDE RECORDS SUMMARY | 2025-06-19 18:06 | XMS_ITS | Encounter Summary ---
Author Organization [facility] Healthcare Address [address] [place] [address] Care Team Providers Care Community Health Agent Name Role Phone Nuris Berger Primary Care Provider [phone] Jonatan Stokes MD Unavailable [phone] Irma Bajwa MD Unavailable [phone] Ayla Dugan LPN Unavailable [phone] Brooke Plaza MA Unavailable Unavailable Encounter Details Date Type Department Care Team (Late st Contact Info) Description 06/28/[address] [facility] Health Information Management [address] [place] [address] Scanning, Provider Social History Tobacco Use Types Packs/Day Years Used Date Smoking Tobacco: Former Cigarettes 0.8 40 0 09/1981 - 09/2021 Smokeless Tobacco: Never Alcohol Use Standard Drinks/Week Comments Yes 0 (1 standard drink = 0.6 oz pur e alcohol) social [facility] Utilities Answer Date Recorded In the past 12 months has [employer] electric, gas, oil, or water company threatened [...] week 12/03/2023 How often do you attend [facility] or restoration services? Patient declined 12/03/2023 Do you belong to any clubs o r organizations such as yazidism groups, unions, fraternal or athletic groups, or [...] place to sleep or slept in a fci (including now)? No 12/03/2023 Personal Safety Answer Date Recorded Have you ever been in or are you currently in a harmful physical or emotional relationship or is someone making you feel afraid or unsafe? 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 Gender Identity Not on file Sexual [...] on filedocumented in this encounter Care Teams Community Health Agent Relationship Specialty Start Date End Date Nuris Berger PA [address] [place] [address] PCP - General Internal Medicine 12/28/18 Jonatan Stokes MD [address] [place] [address] Consulting Physician Otolaryngology 03/27/20 Irma Bajwa MD [address] [facility] [place] [address] Consulting Physician Neurology 05/07/22 Ayla Dugan LPN [address] [place] [address] [address] [place] [address] Incinerator Plant General Supervisor 03/30/25 03/30/25 Brooke Plaza MA [address] [facility] [address] [place] [address] ACO Care House Admin 06/18/25 documented as of this encounter
--- OUTSIDE RECORDS SUMMARY | 2025-06-19 18:06 | XMS_ITS | Encounter Summary ---
Author Organization [facility] Healthcare Address [address] [place] [address] Care Team Providers Care Legal Operations Manager Name Role Phone Nuris Berger Primary Care Provider + [phone] Jonatan Stokes MD Unavailable [phone] Irma Bajwa MD Unavailable [phone] Brooke [address] MA Unavailable Unavailable Encounter Details Date Type Department Care Team (Latest Contact Info) Description 05/02/2025 Results Follow-Up [facility] Family Medicine [address] [place] [address] Nuris Berger PA [address] [address] [place] [address] Comprehensive metabolic panel, CBC with auto differential, TSH, Additional followed-up results: 2 Social History Tobacco Use Types Packs/Day Years Used Date Smoking Tobacco: Former Cigarettes 0.8 40 0 09/1981 - 09/2021 Smokeless Tobacco: Never Alcohol Use Standard Drinks/Week Comments Yes 2 (1 standard drink = 0.6 oz pur e alcohol) social [facility] Utilities Answer Date Recorded In the past [...] often do you attend chur ch or uatsdin services? Patient declined 12/03/2023 Do you belong [...] a senior care (including now)? 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 Gender Identity Not on file Sexual Orientation Not on file Occupation Industry Job Start Date Job End Date Disabled Not on file Not on file Not on file documented as of this encounter Plan of Treatment Not on file documented as of this encounter Visit Diagnoses Not on filedocumented in this encounter Care Teams Legal Operations Manager Relationship Specialty Start Date End Date Nuris Berger PA [address] [facility] [address] [place] [address] PCP - General Internal Medicine 12/28/18 Jonatan Stokes MD [address] [place] [address] Consulting Physician Otolaryngology 03/27/20 Irma Bajwa MD [facility] [place] [address] Consulting Physician Neurology 05/07/22 Brooke Plaza MA [address] [facility] [address] [facility] [address] [place] [address] ACO Care Plant Guide 06/18/25 documented as of this encounter
--- OUTSIDE RECORDS SUMMARY | 2025-06-19 18:06 | XMS_ITS | Clinical Summary ---
Author Organization [facility] [address] [facility] Address [address] [place] [address] Care Team Providers Care Road Engineer Name Role Phone Nuris Berger Primary Care Provider [phone] Jonatan Stokes MD Unavailable [phone] Irma Bajwa MD Unavailable [phone] Bro[address] MA Unavailable Unavailable Allergies Active Allergy Reactions Criticality Noted [...] 11/24/2023 Assessment & Plan (11/19/2024 11:45 PM CASE FILLER): Supplement Assessment & Plan (05/20/2024 7:36 PM CDT): Supplement Fatigue 12/12/2022 Assessment & Plan (05/20/2024 7:37 PM CDT): Probably multifactorial. Check labs and followup to re-evaluate Assessment & Plan (11/24/2023 10:35 AM CASE FILLER): Probably multifactorial. Check labs and followup to [...] 01/16/2022 Assessment & Plan (11/19/2024 11:44 PM CASE FILLER): Chronic hiccups for 5+ years Has been [...] to the ER. ER recommended referral to [facility] but patient states he can't go to [...] weeks Assessment & Plan (11/24/2023 10:34 AM CASE FILLER): Patient has persistent chronic hiccups that come [...] monitor Assessment & Plan (08/15/2023 5:01 PM CASE FILLER): Chronic hiccups for years. Has tried multiple interventions along with multiple workups from specialists including Neurology pulmonology and GI. Continue current regimen. Stressed importance of limiting water intake when he has the hiccups spells as this has been leading to hyponatremia requiring hospitalization. Assessment & Plan (08/11/2023 8:45 AM CASE FILLER): Patient with chronic hiccups. Have had difficulty [...] levels. Assessment & Plan (08/15/2022 6:45 PM CASE FILLER): Patient has consulted with most multiple specialists [...] hiccups. Assessment & Plan (08/15/2023 5:02 PM CASE FILLER): Chronic hiccups for years. Has tried multiple interventions along with multiple workups from specialists including Neurology pulmonology and GI. Continue current regimen. Stressed importance of limiting water intake when he has the hiccups spells as this has been leading to hyponatremia requiring hospitalization. Assessment & Plan (08/11/2023 8:46 AM CASE FILLER): Hyponatremia secondary to water intake with chronic [...] 07/14/2019 Assessment & Plan (11/19/2024 11:44 PM CASE FILLER): Continue PPI p.r.n. Assessment & Plan (05/20/2024 7:35 PM CDT): Continue pantoprazole p.r.n. Assessment & Plan (11/24/2023 10:33 AM CASE FILLER): Continue pantoprazole p.r.n. Assessment & Plan (04/08/2023 8:48 PM CDT): Continue PPI p.r.n. Assessment & Plan (12/12/2022 9:43 PM CDT): Insert PPI Assessment & Plan (08/15/2022 6:45 PM CASE FILLER): Continue PPI prn Assessment & Plan (02/09/2021 8:17 PM CDT): Continue PPI Assessment & Plan (07/29/2020 7:33 AM CASE FILLER): Continue PPI Assessment & Plan (03/27/2020 8:01 AM CDT): Dr. Stokes changed him from omeprazole to Pantoprazole for the hiccups. Pt hasn't noted any difference in GERD sxs (still well controlled) or hiccups. Assessment & Plan (09/26/2019 7:38 AM CASE FILLER): Continue PPI Assessment & Plan (07/14/2019 8:46 AM CDT): Discussed GERD at length including anatomy, behavioral changes (raise HOB, meal timings), dietary changes and medication options. Reviewed risks, benefits alternatives, side effects and proper use. Followup if sxs worsen or has hematochezia or hematemeis. Start PPI Chronic obstructive pulmonary disease 06/26/2019 Overview (06/26/2019): Noted on 06/2019 LDCT Assessment & Plan (11/19/2024 11:44 PM CASE FILLER): Patient with allergies and COPD. Continue Singulair albuterol and Symbicort. Follows with Dr. Valdes. Assessment & Plan (05/20/2024 7:35 PM CDT): Continue per Dr. Valdes. Continue with his Symbicort and albuterol inhalers. Low-dose CT will be scheduled for June 16, 2024. Assessment & Plan (11/24/2023 10:33 AM CASE FILLER): COPD. Continue per Dr. 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 Assessment & Plan (04/08/2023 8:48 PM CDT): Encouraged smoking cessation. Continue per Dr. Hammond pulmonology. He is on albuterol Symbicort and Singulair Assessment & Plan (12/12/2022 9:43 PM CDT): Stop smoking. Continue per Pulmonary. Continue Symbicort Singulair and albuterol. Continue monitoring low-dose CTs as instructed Assessment & Plan (08/15/2022 6:44 PM CASE FILLER): Stop smoking. Continue current plan per Pulmonary Assessment & Plan (08/01/2021 9:34 PM CASE FILLER): Continue per Pulmonary Dr. Valdes Assessment & Plan (02/09/2021 8:15 PM CDT): Stop smoking. Continue per Dr. Valdes Assessment & Plan (07/29/2020 7:32 AM CASE FILLER): Continue per Pulm Assessment & Plan (03/27/2020 8:00 AM CDT): Stop smoking. He declines starting inhalers or referral to Pulmonary Assessment & Plan (09/26/2019 10:27 PM CASE FILLER): This is a significant, separately identifiable problem [...] order Assessment & Plan (07/29/2020 7:33 AM CASE FILLER): Needs to repeat ---Dr. Valdes has already ordered Assessment & Plan (03/27/2020 8:00 AM CDT): 06/2019 LDCT Several 2-3mm nodules, probable benign LungRADs 2 --- repeat 06/2020 Assessment & Plan (09/26/2019 10:26 PM CASE FILLER): 06/2019 LDCT Several 2-3mm nodules, probable benign LungRADs 2 --- repeat 06/2020 Hyperplastic rectal polyp 05/20/2019 Overview (05/20/2019): Colonoscopy 01/29/2012 at [facility]--->2021 Assessment & Plan (05/28/2019 7:33 PM CDT): Recvd colonoscopy and due to repeat in 2021 Hiatal hernia 05/20/2019 Mixed hyperlipidemia 05/20/2019 Assessment & Plan (11/19/2024 11:45 PM CASE FILLER): Encouraged patient to follow low fat/low chol [...] 80 Assessment & Plan (11/24/2023 10:34 AM CASE FILLER): Encouraged patient to follow low fat/low chol diet like the Mediterranean diet. Increase good fats in the diet. Increase exercise. Monitor labs as needed. Continue pravastatin 80 Assessment & Plan (08/15/2023 5:03 PM CASE FILLER): Encouraged patient to follow low fat/low chol [...] Zetia Assessment & Plan (08/01/2021 9:33 PM CASE FILLER): Encouraged patient to follow fat/low chol diet [...] statin Assessment & Plan (07/29/2020 7:34 AM CASE FILLER): Encouraged patient to follow fat/low chol diet like the Mediterranean diet. Increase good fats in the diet. Increase exercise. Monitor labs as needed. Assessment & Plan (03/27/2020 8:02 AM CDT): Encouraged patient to continue low fat/low chol diet. Continue exercise. Increase good fats in the diet. Monitor labs as needed. Stable with zetia and pravastatin Assessment & Plan (09/26/2019 7:39 AM CASE FILLER): Encouraged patient to continue low fat/low chol [...] change Assessment & Plan (08/15/2023 5:03 PM CASE FILLER): Patient is legally blind. Continue with Ophthalmology Assessment & Plan (04/08/2023 8:47 PM CDT): No change Assessment & Plan (03/27/2020 8:02 AM CDT): No change Assessment & Plan (09/26/2019 7:39 AM CASE FILLER): No change Assessment & Plan (05/28/2019 7:35 PM CDT): No change Cigarette smoker 05/20/2019 Assessment & Plan (08/11/2023 8:45 AM CASE FILLER): Encouraged smoking cessation. Discussed 3 minutes. Reviewed options for assistance with cessation. Reviewed residential sequela associated with smoking. Pt declines assistance at this time but may contact the office at anytime for further help as they desire. Assessment & Plan (04/08/2023 8:47 PM CDT): Encouraged smoking cessation. Discussed 3 minutes. Reviewed options for assistance with cessation. Reviewed oysterman sequela associated with smoking. Pt declines assistance at this time but may contact the office at anytime for further help as they desire. Low-dose CT will be due in May. It is already scheduled Assessment & Plan (12/12/2022 9:42 PM CDT): Encouraged smoking cessation. Discussed 3 minutes. Reviewed options for assistance with cessation. Reviewed oysterman sequela associated with smoking. Pt declines assistance at this time but may contact the office at anytime for further help as they desire. Assessment & Plan (08/15/2022 6:44 PM CASE FILLER): Encouraged smoking cessation. Discussed 3 minutes. Reviewed options for assistance with cessation. Reviewed oysterman sequela associated with smoking. Pt declines assistance at this time but may contact the office at anytime for further help as they desire. Assessment & Plan (05/09/2022 8:19 PM CDT): Encouraged smoking cessation. Discussed 3 minutes. Reviewed options for assistance with cessation. Reviewed oysterman sequela associated with smoking. Pt declines assistance at this time but may contact the office at anytime for further help as they desire. Assessment & Plan (08/01/2021 9:33 PM CASE FILLER): Encouraged smoking cessation. Discussed 3 minutes. Reviewed options for assistance with cessation. Reviewed residential sequela associated with smoking. Pt declines assistance at this time but may contact the office at anytime for further help as they desire. Assessment & Plan (05/17/2021 11:41 PM CDT): Encouraged smoking cessation. Discussed 3 minutes. Reviewed options for assistance with cessation. Reviewed oysterman sequela associated with smoking. Pt declines assistance at this time but may contact the office at anytime for further help as they desire. Assessment & Plan (03/12/2021 12:31 PM CDT): Encouraged smoking cessation. Discussed 3 minutes. Reviewed options for assistance with cessation. Reviewed oysterman sequela associated with smoking. He is slowing down. Offered assistance. May call if decides he wants help Assessment & Plan (07/29/2020 7:34 AM CASE FILLER): Encouraged smoking cessation. Discussed 3 minutes. Reviewed options for assistance with cessation. Reviewed oysterman sequela associated with smoking. Pt declines assistance [...] desire. Assessment & Plan (09/26/2019 7:39 AM CASE FILLER): Encouraged smoking cessation. Discussed 3 minutes. Reviewed [...] 05/20/2019 Assessment & Plan (11/19/2024 11:45 PM CASE FILLER): Pre-diabetes/hyperglycemia is a precursor to Dm. Stressed [...] diabetes. Assessment & Plan (11/24/2023 10:34 AM CASE FILLER): Pre-diabetes/hyperglycemia is a precursor to Dm. Stressed importance of working on diet (decrease your simple sugars and one carbohydrate with each meal) and increase you exercise to achieve weight loss and this will help prevent you from progressing to diabetes. Assessment & Plan (08/15/2023 5:03 PM CASE FILLER): Pre-diabetes/hyperglycemia is a precursor to Dm. Stressed [...] diabetes. Assessment & Plan (08/01/2021 9:33 PM CASE FILLER): Pre-diabetes/hyperglycemia is a precursor to Dm. Stressed [...] diabetes. Assessment & Plan (07/29/2020 7:34 AM CASE FILLER): Pre-diabetes is a precursor to Dm. Stressed [...] labs Assessment & Plan (09/26/2019 10:27 PM CASE FILLER): This is a significant, separately identifiable problem [...] healthy lifestyle to maintain. Annual physical exam 11/19/202405/13/ 025 Assessment & Plan (11/19/2024 11:45 PM CASE FILLER): Encouraged healthy lifestyle, good nutrition and exercise. Encouraged Calcium and Vitamin D and weight bearing exercise for bone health. Reviewed immunizations Reviewed age appropirate screenings. BMI 23.0-23.9, adult 06/20/2024 025 Assessment & Plan (10/30/2024 8:57 AM CASE FILLER): Weight/BMI is in healthy range. Continue healthy [...] 11/24/2023 Assessment & Plan (11/24/2023 10:35 AM CASE FILLER): Encouraged healthy lifestyle, good nutrition and exercise. Encouraged Calcium and Vitamin D and weight bearing exercise for bone health. Reviewed immunizations Reviewed age appropirate screenings. Need for influenza vaccination 08/15/2023 11/24/2023 Assessment & Plan (08/15/2023 5:04 PM CASE FILLER): Flu vaccine updated in the office today BMI 22.0-22.9, adult 07/22/2023 024 Assessment & Plan (08/11/2023 8:12 AM CASE FILLER): Weight/BMI is in healthy range. Continue healthy [...] 04/03/2023 Assessment & Plan (08/15/2022 6:45 PM CASE FILLER): Flu updated in the office today BMI [...] test outpatient. Was referred to an outside braze operator. Encouraged to consider seeing a [facility] group of cardiologists so all of his providers are in the same system. He is in agreement. Referral made to Dr. Eduardo as he has multiple risk factors. BMI 23.0-23.9, adult 01/21/2022 Assessment & Plan (01/21/2022 11:10 AM CDT): Weight/BMI is in healthy range. Continue healthy lifestyle to maintain. BMI 21.0-21.9, adult 08/01/2021 Assessment & Plan (08/01/2021 7:28 AM CASE FILLER): Weight/BMI is in healthy range. Continue healthy lifestyle to maintain. Medicare annual wellness visit, subsequent 08/01/2021 08/15/2022 Assessment & Plan (08/01/2021 9:34 PM CASE FILLER): Encouraged healthy lifestyle, good nutrition and exercise. Encouraged Calcium and Vitamin D and weight bearing exercise for bone health. Reviewed immunizations. Reviewed age appropirate screenings. Medicare Wellness Documentation is completed within the chart Fatigue 05/17/2021 05/02/2022 Assessment & Plan (08/01/2021 9:34 PM CASE FILLER): Probably multifactorial. Check labs and followup to [...] 024 Assessment & Plan (11/24/2023 10:34 AM CASE FILLER): Weight/BMI is in healthy range. Continue healthy [...] 05/02/2022 Assessment & Plan (07/29/2020 7:34 AM CASE FILLER): Probably multifactorial. Check labs and followup to re-evaluate Need for immunization against influenza 07/29/2020 11/24/2020 Assessment & Plan (07/29/2020 7:34 AM CASE FILLER): Updated in office today BMI 22.0-22.9, adult 03/27/2020 024 Assessment & Plan (05/20/2024 7:37 PM CDT): Weight/BMI is in healthy range. Continue healthy lifestyle to maintain. Assessment & Plan (07/29/2020 7:34 AM CASE FILLER): Weight/BMI is in healthy range. Continue healthy [...] 020 Assessment & Plan (09/26/2019 7:39 AM CASE FILLER): Weight/BMI is in healthy range. Continue healthy lifestyle to maintain. Annual physical exam 09/26/2019 020 Assessment & Plan (09/26/2019 7:40 AM CASE FILLER): Encouraged healthy lifestyle, good nutrition and exercise. Encouraged Calcium and Vitamin D and weight bearing exercise for bone health. Reviewed immunizations Reviewed age appropirate screenings. Influenza vaccine refused 09/26/2019 Assessment & Plan (09/26/2019 7:40 AM CASE FILLER): Encouraged vaccine. Reviewed risks/ benefits. Patient refuses and accepts risks. Esophagitis determined by endoscopy 05/20/2019 05/02/2022 Gastritis 05/20/2019 05/02/2022 Essential (primary) hypertension 05/20/2019 05/20/2024 Assessment & Plan (11/24/2023 10:34 AM CASE FILLER): Bp is stable/in acceptable range for any co-morbidities. Encouraged to limit sodium intake and exercise for weight control. Continue losartan 50 Assessment & Plan (08/15/2023 5:04 PM CASE FILLER): Bp is stable/in acceptable range for any co-morbidities. Encouraged to limit sodium intake and exercise for weight control. Continue per Dr. Curtis Assessment & Plan (08/11/2023 8:45 AM CASE FILLER): Bp is stable/in acceptable range for any [...] losartan Assessment & Plan (08/15/2022 6:44 PM CASE FILLER): Bp is stable/in acceptable range for any [...] 50 Assessment & Plan (08/01/2021 9:33 PM CASE FILLER): Bp is stable/in acceptable range for any [...] Losartan/HCTZ Assessment & Plan (07/29/2020 7:33 AM CASE FILLER): Bp is stable/in acceptable range for any co-morbidities. Encouraged to limit sodium intake and exercise for weight control. Losartan and HCTZ Assessment & Plan (03/27/2020 8:00 AM CDT): Bp is stable/in acceptable range for any co-morbidities. Encouraged to limit sodium intake and exercise for weight control. Continue losartan/HCTZ Assessment & Plan (09/26/2019 7:38 AM CASE FILLER): Bp is stable/in acceptable range for any [...] 01/21/2022 Assessment & Plan (08/01/2021 9:34 PM CASE FILLER): Persistent hiccups. Has consulted with multiple providers [...] omeprazole Assessment & Plan (07/29/2020 7:32 AM CASE FILLER): Continue per ENT/Pulm. He is responding to BID omeprazole. Will monitor Assessment & Plan (03/27/2020 7:59 AM CDT): Dr. Stokes started him on Pantoprazole. He hasn't noted much difference. Needs to followup to complete workup. Encouraged patient to call and make appointment. Assessment & Plan (09/26/2019 10:26 PM CASE FILLER): This is a significant, separately identifiable problem that was evaluated and managed on the same day as the wellness exam Less frequent than in the past. Continue the PPI and monitor Rx sent to pharmacy. Assessment & Plan (08/24/2019 9:04 AM CASE FILLER): Improving with the PPI. Continue PPI and [...] 2018 Assessment & Plan (08/24/2019 9:04 AM CASE FILLER): Encouraged vaccine. Reviewed risks/ benefits. Patient refuses [...] Encounters Date Type Department Care Team Description 06/19/2025 [facility] IP Outreach [facility] Organization [address] [place] [phone] Brooke [address] [place] 06/18/2025 [facility] IP Outreach [address] [address] Brooke Plaza [place] 06/01/[address] [place] [phone] Nuris Berger PA 05/30/2025 [facility] IP Outreach [address] [address] Hilton James LPN 05/29/2025 Orders Only [facility] [address] [place] [id number] Scanning, Provider 05/02/2025 Results Follow-Up [address] [place] [phone] Nuris Berger PA Comprehensive metabolic panel, CBC with auto differential, TSH, Additional followed-up results: 2 05/01/2025 9:00 AM CDT Office Visit [address] [place] [phone] Nuris Berger PA Medicare annual wellness visit, subsequent (Primary Dx); Chronic hiccups; Hyponatremia; Legally blind; Primary hypertension; Chronic obstructive pulmonary disease, unspecified COPD type (HCC); Seasonal allergic rhinitis due to pollen; Gastroesophageal reflux disease with esophagitis without hemorrhage; Mixed hyperlipidemia; Fatigue, unspecified type; Prostate cancer screening; BMI 24.0-24.9, adult 04/20/2025 Orders Only [facility] [address] [place] [phone] Britta Valdez NP 04/20/[address] [place] [phone] uNris Berger PA After Hours 03/30/2025 [facility] IP Outreach [address] [place] [address] Ayla Dugan LPN 03/26/2025 Orders Only [facility] [address] [place] [address] Scanning, Provider from Last 3 Months Immunizations [...] Name Comments Blindness Father Heart attack Father OR Heart disease Father No Known Problems Mother Relation Name Status Comments Father Mother Social History Tobacco Use Types Packs/Day Years Used Date Smoking Tobacco: Former Cigarettes 0.8 40 0 09/1981 - 09/2021 Smokeless Tobacco: Never Tobacco Cessation:Counseling Given: Not Answered Alcohol Use Standard Drinks/Week Comments Yes 2 (1 standard drink = 0.6 oz pur e alcohol) social [facility] Utilities Answer Date Recorded In the past 12 months has [employer], gas, oil, or water [employer] threatened to shut off services in your [...] How often do you attend [facility] or congregation services? Patient declined 12/03/2023 Do you belong to any clubs o r organizations such as religious groups, unions, fraternal or athletic groups, or [...] on file Legal Sex Male 12:22 AM CASE FILLER Gender Identity Not on file Sexual Orientation [...] Associated Diagnosis Comments SCAN - RADIOLOGY/IMAGING 05/29/2025 PSA SCREEN Routine 05/01/2025 10:18 AM CDT [...] Read Routine (OP Routine) 10/03/2024 9:25 AM CASE FILLER Pulmonary nodules HEPATITIS PANEL, ACUTE Routine 05/03/2022 5:40 AM CDT HM COLONOSCOPY Routine 07/14/2021 from Last 3 Months or Most Recently Relevant to Health Maintenance Results * SCAN - RADIOLOGY/IMAGING (05/29/2025) Anatomical Region Laterality Modality Other us Provider Scanning Final Result * PSA screen (05/01/2025 10:18 AM CDT) Pathologist [facility] PSA 1.33 < OR = 4.00 ng/mL [facility] Comment: The total PSA value from this assay system is standardized against the WHO standard. The test result will be approximately 20% lower when compared to the equimolar-standardized total PSA (Maged Kartik). Comparison of serial PSA results should be interpreted with this fact in mind. This test was performed using the Siemens chemiluminescent method. Values obtained from different assay methods cannot be used interchangeably. PSA levels, regardless of value, should not be interpreted as absolute evidence of the presence or absence of disease. Blood 05/01/2025 10:1 8 AM CDT 05/01/2025 10:19 AM CDT [facility] 05/02/2025 6:21 AM CDT FASTING:YES FASTING: YES Nuris ROBLES LAB BLOOD ORDERABLES Final Result Performing Organization Address City/State/[facility] Co de Phone Number DMITRI Nickerson [facility] [address] [place] [address] * (ABNORMAL) CBC with auto differential (05/01/2025 10:18 AM CDT) [facility] WBC 10.8 3.8 - 10.8 Thousand/u L [facility] [place] RBC, POC 3.66(L) 4.20 - 5.80 Million/uL [facility] Hgb 10.6(L) 13.2 - 17.1 g/dL [facility] Hct 32.9(L) 38.5 - 50.0 % [...] BLOOD ORDERABLES Final Result Performing Organization Address City/[facility] de Phone Number [place] [address] [place] [address] * TSH (05/01/2025 10:18 AM CDT) [facility] TSH 1.22 0.40 - 4.50 mIU/L [facility] Blood 05/01/2025 10:1 8 AM CDT 05/01/2025 10:19 AM CDT Narrative [facility] - 05/02/2025 6:21 AM CDT FASTING:YES FASTING: YES Nuris ROBLES LAB BLOOD ORDERABLES Final Result Performing Organization Address City/[facility]/ZIP Co de Phone Number [facility] [address] [place] [address] * Vitamin B12 (05/01/2025 10:18 AM CDT) [facility] Vitamin B12 1,067 200 - 1,100 pg/mL [facility] girish Blood 05/01/2025 10:1 8 AM CDT 05/01/2025 10:19 AM CDT Narrative [facility] - 05/02/2025 6:21 AM CDT FASTING:YES FASTING: YES Nuris ROBLES LAB BLOOD ORDERABLES Final Result DMITRI Nickerson [place] [address] [facility] [place] [phone] * (ABNORMAL) Comprehensive metabolic panel (05/01/2025 10:18 AM CDT) [facility] Glucose 86 65 - 99 mg/dL [facility] [employer] mary Gross Comment: Fasting reference interval BUN 19 7 - 25 mg/dL [facility] [place] Creatinine 0.80 0.70 - 1.35 mg/dL [facility] [employer] [place] eGFR 99 > OR = 60 mL/min/1.7 3m2 [facility] [employer] [place] BUN/creat ratio SEE NOTE: 6 - 22 (calc) [facility] [employer] [place] Comment: Not Reported: BUN and Creatinine are within reference range. Sodium 136 135 - 146 mmol/L [facility] [place] Potassium, pl 5.1 3.5 - 5.3 mmol/L [facility] [place] Chloride 102 98 - 110 mmol/L [facility] [place] CO2 26 20 - 32 mmol/L [facility] [place] Calcium 9.4 8.6 - 10.3 mg/dL [facility] [place] Protein, sr 6.8 6.1 - 8.1 g/dL [facility] [place] Albumin 3.9 3.6 - 5.1 g/dL [facility] [place] GLOBULIN 2.9 1.9 - 3.7 g/dL (calc) [facility] [place] Alb/glob ratio 1.3 1.0 - 2.5 (calc) [facility] PF [employer] [place] Bilirubin, total 0.2 0.2 - 1.2 mg/dL [facility] [place] Alk phos 48 35 - 144 U/L [facility] [facility] Renato AST 9(L) 10 - 35 U/L [facility] ALT (SGPT) 7(L) 9 - 46 U/L [facility] Blood 05/01/2025 10:1 8 AM CDT 05/01/2025 10:19 AM CDT Narrative [facility] - 05/02/2025 6:21 AM CDT FASTING:YES FASTING: YES Nuris ROBLES LAB BLOOD ORDERABLES Final Result [facility] [address] [place] [address] * SCAN - RADIOLOGY/IMAGING (03/26/2025) Anatomical Region Laterality Modality Other Provider Scanning Edited Result - Final * CT Chest WO Contrast F/U Lung Screen Protocol (10/03/2024 9:25 AM CASE FILLER) Anatomical Region Laterality Modality Chest N/A Computed Tomogra phy 10/03/2024 7:11 PM CASE FILLER Narrative 10/03/2024 7:17 PM CASE FILLER EXAM DESCRIPTION: CT CHEST WO CONTRAST F/U [...] Estuardo Ortiz M.D. KT T: Report ID: [id number] Reading Location: [place] [address] us Tasia Hoffman MD IMG CT PROCEDURES Final Resul t * Hepatitis panel, acute (05/03/2022 5:40 AM CDT) Hep A IgM Nonreactive Nonreactive ANABELA Comment: [...] 5:40 AM CDT 05/03/2022 6:36 AM CDT us Pamela Gongora DO LAB MICROBIOLOGY - GENERAL OR DERABLES Final Result ANABELA [address] [facility] [place] [address] * (ABNORMAL) HM COLONOSCOPY (07/14/2021) Jame Mg MD HEALTH MAINTENANCE Edited Result - Final from Last 3 Months or Most Recently Relevant to Health Maintenance Insurance T MEDICARE GOLD T MEDICARE GOLD AETNA MEDICARE GOLD Advance Directives For more information, please contact: [phone] * Full Code (Latest Code Status on [...] 10:34 PM 11/16/2022 9:[address] Engineer Relationship Specialty Start Date End Date Nuris Berger PA [address] [facility] [place] [address] [place] [address] PCP - General Internal Medicine 12/28/18 Jonatan Stokes MD [address] [place] [address] Consulting Physician Otolaryngology 03/27/20 Irma Bajwa MD [facility] [facility] [place] [address] Consulting Physician Neurology 05/07/22 Brooke Plaza MA [address] [place] [address] ACO Care Open Hearth Furnace Operator 06/18/25
--- OUTSIDE RECORDS SUMMARY | 2025-06-19 18:06 | XMS_ITS | Encounter Summary ---
Author Organization [facility] Healthcare Address [address] [place] [address] Care Team Providers Care Pouring Crane Operator Name Role Phone Nuris Berger Primary Care Provider [phone] Jonatan Stokes MD Unavailable [phone] Irma Bajwa MD Unavailable [phone] Ayla Dugan LPN Unavailable [phone] Brooke Plaza MA Unavailable Unavailable Encounter Details Date Type Department Care Team (Late st Contact Info) Description 12/21/2024 Orders Only [facility] Health Information Management [address] [place] [id number] Scanning, Provider Social History Tobacco Use Types Packs/Day Years Used Date Smoking Tobacco: Former Cigarettes 0.8 40 0 09/1981 - 09/2021 Smokeless Tobacco: Never Alcohol Use Standard Drinks/Week Comments Yes 0 (1 standard drink = 0.6 oz pur e alcohol) social [facility] Utilities Answer Date Recorded In the past 12 months has [employer] electric, gas, oil, or water company threatened [...] you attend [facility] or alevism services? Patient declined 12/03/2023 Do you belong to any clubs o r organizations such as pentecostal groups, unions, fraternal or athletic groups, or [...] place to sleep or slept in a fpc (including now)? No 12/03/2023 Personal Safety Answer Date Recorded Have you ever been in or are you currently in a harmful physical or emotional relationship or is someone making you feel afraid or unsafe? 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 Gender Identity Not on file Sexual Orientation [...] on filedocumented in this encounter Care Teams Pouring Crane Operator Relationship Specialty Start Date End Date Nuris Berger PA [address] [facility] [address] [place] [address] PCP - General Internal Medicine 12/28/18 Jonatan Stokes MD [address] DEPT [place] [address] Consulting Physician Otolaryngology 03/27/20 Irma Bajwa MD [facility] [place] [address] Consulting Physician Neurology 05/07/22 Ayla Dugan LPN [address] [place] [address] [address] [place] [address] Secret Service Agent 03/30/25 03/30/25 Brooke Plaza MA [address] [facility] [address] [place] [address] ACO Care Controller Repairer And Tester 06/18/25 documented as of this encounter
--- OUTSIDE RECORDS SUMMARY | 2025-06-19 18:06 | XMS_ITS | Clinical Summary ---
Author Organization [facility] Address [address] [place] [address] Care Team Providers Care Farm Crew Member Name Role Phone Nuris Berger PA-C Primary Care Provider [phone] Source Comments [facility]non-owned Affiliates and Associated Physician Practices is amultiple site organization consisting of ambulatory clinics and hospital sitesin [place], [place], [place]. This disclosure is being madepursuant to the Care Everywhere program and may not contain all information available regarding this patient. Last updated 18.[facility] Allergies Active Allergy Reactions Criticality Noted Date [...] tablet 06/17/2023 Active ergocalciferol (Drisdol) 1.25 MG (77272 UT) capsule Take 1 (one) capsule by [...] 3 times daily as needed 11/04/2023 Active dorzolamide-jose olol (Cosopt) 2-0.5 % ophthalmic solution Instill 1 (one) drop into left eye 3 times daily 10 mL 11 07/21/2024 Active trimethoprim-po lymyxin B (Polytrim) 33488-4.1 UNIT/ML-% ophthalmic solution Instill 1 (one) drop into left eye once daily 10 mL 11 09/18/2024 Active prednisoLONE acetate (Pred Forte) 1 % ophthalmic suspension Instill 1 (one) drop into left eye 3 times daily 15 mL 11 04/03/2025 Active tobramycin-dexA METHasone (Tobradex) 0.3-0.1 % ophthalmic suspension Instill 1 (one) drop into left eye at bedtime 10 mL 11 05/18/2025 Active Active Problems Problem Noted Date Diagnosed [...] Reviewed options for assistance with cessation. Reviewed intermediate sequela associated with smoking. Pt declines assistance [...] polyp 05/20/2019 Overview (12/24/2020): Colonoscopy 01/29/2012 at [facility]--->2021 Last Assessment & Plan: Recvd colonoscopy and [...] Type Department Care Team Description 05/18/2025 Refill [facility] - Ophthalmology [address] [place] [phone] Louis Hansen MD MEDICATION REFILL 04/18/2025 9:00 AM CDT Office Visit [facility] - Ophthalmology [address] [place] [phone] Louis Hansen MD H/O cornea transplant (Primary Dx); Aniridia 04/18/2025 Travel 04/03/2025 Refill [facility] - Ophthalmology [address] [place] [phone] Louis Hansen MD MEDICATION REFILL from Last 3 Months Immunizations Immunization Administration Dates Next Due Covid Sonico primary monoval ent 12+ yr 0.3mL Purple [...] Comments Blood Pressure 128/70 08/26/2023 12:43 PM TRACER CLERK Pulse 65 08/26/2023 12:43 PM TRACER CLERK Temperature 35.9 C (96.7 F) 08/26/2023 12:34 PM TRACER CLERK Respiratory Rate 14 08/26/2023 12:43 PM TRACER CLERK Oxygen Saturation 98% 08/26/2023 12:34 PM TRACER CLERK Inhaled Oxygen Concentration - - Weight 64.9 kg (143 lb) 08/26/2023 9:01 AM TRACER CLERK Height 172.7 cm (5' 8) 08/26/2023 9:01 AM TRACER CLERK Body Mass Index 21.74 08/26/2023 9:01 AM TRACER CLERK Plan of Treatment Upcoming Encounters Date Type Department Care Team (Late st Contact Info) Description 08/07/2025 8:40 AM TRACER CLERK Office Visit [facility] - Ophthalmology [address] [place] [phone] Tyrel Velez MD [address] [place] [phone] 10/17/2025 9:00 AM TRACER CLERK Office Visit [facility] - Ophthalmology [address] [place] [phone] Louis Hansen MD [address] [place] [address] [place] [phone] Health Maintenance Due Date Last Done Comments [...] MEDICARE AWV CALENDAR YEAR 2024 COVID-19 VACCINE ( season) 2025 02/09/2021, 01/05/2021 INFLUENZA VACCINE (#1) [...] this topic Medical Devices Implanted Type Area Database Programmer Device Identifier Shelf Expiration Date Model / Serial / Lot Drain Glcm Thk.9mm Blnt Tpr [facility] Flxb - [id number] Implanted:Qty: 1 on 05/04/2018 by Tyrel Velez MD at [facility] Left: Eye [employer] 03/15/2020 FP7 / [id number] / [id number] Graft Tissue Ttplst Sclr .8x.5cm Lopro - [id number] Implanted:Qty: 1 on 05/04/2018 by Tyrel Velez MD at [facility] Left: Eye [employer] 01/17/2023 [id number] / [id number] / [id number] Impl Opth 250sq Mm Brvldt Magaly 1 Qdrnt - [id number] Implanted:Qty: 1 on 06/16/2023 by Tyrel Velez MD at [facility] Left: Eye [employer] 01/09/2024 [id number] / [id number] / Graft Tissue Ttpl Ioptch Sclr .8x.5cm - [id number] Implanted:Qty: 1 on 06/16/2023 by Tyrel Velez MD at [facility] Left: Eye [employer] 09/19/2027 11818 / [id number] / Graft Tissue Ttpl Ioptch Sclr .8x.5cm - [id number] Implanted:Qty: 1 on 06/16/2023 by Tyrel Velez MD at [facility] Left: Eye [employer] 09/19/2027 [id number] / [id number] / J Luis Cornea - [id number] Implanted:Qty: 1 on 08/26/2023 by Louis Hansen MD at [facility] Left: Eye [employer] 09/05/2023 [id number] / [id number] / [id number] Description:Product Numb:[id number] EXP:09-05-2023 DIN:[id number] Insurance AETNA MEDICARE ADV AETNA Advance Directives * Full Code (Latest Code Status on File) Date Activated Date Inactivated Comments 05/04/2018 11:35 AM 05/04/2018 1:21 PM * Full Code Date Activated Date Inactivated Comments 05/04/2018 7:43 AM 05/04/2018 11:35 AM Care Teams Farm Crew Member Relationship Specialty Start Date End Date Nuris Berger PA-C PCP - General 02/13/20
--- OUTSIDE RECORDS SUMMARY | 2025-06-19 18:06 | XMS_ITS | Data Portability ---
Author Organization JUSTIN TEJINDERKathy Hernandez Address [address] [place] [address] Assessment No assessment recorded. Plan of Treatment Reminders Order Date Submit Date Provider Last Modified By Organization Details Last Modified Time Details Appointments None recorded. Lab PSA, serum or plasma 2016 017 [facility], [address] [place] [address], [address], [place], [address], 7 11:13:39 vitamin D, 25-hydroxy , total, serum 2016 017 [facility], [address] [place] [address], [address], [place], [address], 7 11:13:41 lipid panel, serum 2016 017 [facility], [address] [place] [address], [address], [place], [address], 7 11:13:39 CMP, serum or plasma 2016 017 [facility], [address] [place] [address], [address], [place], [address], 7 11:13:38 CK (creatine kinase), total, serum 2016 017 [facility], [address] [place], [place] [address], [address], [place], [address], 7 11:13:41 HbA1c (hemoglobi n A1c), blood 2016 017 [facility], [address] [facility], [address], [place], [address], 7 11:13:40 Referral ophthalmol ogist referral - please contact patient to schedule kelechi hernandez, thank you 2016 017 [email or web address] Not available 11:35:22 Procedures None recorded. Surgeries None recorded. Imaging None recorded. Medication Orders nicotine 14 mg/24 hr daily transderma l patch 2016 017 [facility][id number], [address] [facility], [place], [place], [id number], 7 10:19:15 losartan 100 mg tablet 2016 017 [facility] #[id number], [address] [place], [place], [id number], 7 10:22:24 pravastati n 80 mg tablet 2016 017 [facility] #[id number], [address] [place], [place], [id number], 7 10:21:48 Zetia 10 mg tablet 2016 017 [facility] #[id number], [address] [facility], [place], [place], [id number], 7 10:21:48 Patient TargetsNo targets recorded. Patient InstructionsNo instructions recorded. Reason for Referral Manager Of Patient Referral for Glaucoma please continue to treat glaucoma. thank you please contact patient to schedule appointment, thank you Referring Physician: Tereso Mathias, [facility] Medicine, Encounter Date: 02/24/2017 Results Created Date Observation Date Name Description Value Unit Range Abnormal Flag Note LastModifiedBy Organization Detail LastModifiedTime 12/04/19 17 12/04/2016 CMP, serum or plasm a glucose, serum 89 mg/dL 65-99 Not Available [facility] ([facility]) [address] [place], [address], 12/04/2016 11:13:38 12/04/19 17 12/04/2016 CMP, serum or plasm a BUN 14 mg/dL 6-24 Not Available [facility] ([facility]) [address] [place], [address], 12/04/2016 11:13:38 12/04/19 17 12/04/2016 CMP, serum or plasm a creatinine, serum 0.97 mg/dL 0.76-1 .27 Not Available [facility] ([facility]) [address] [place], [address], 12/04/2016 11:13:38 12/04/19 17 12/04/2016 CMP, serum or plasm a eGFR if nonafricn AM 88 mL/mi n/1.7 3 >59 Not Available [facility] ([facility]) [address] [place], [address], 12/04/2016 11:13:38 12/04/19 17 12/04/2016 CMP, serum or plasm a eGFR if africn AM 101 mL/mi n/1.7 3 >59 Not Available [facility] ([facility]) [address] [place], [address], 12/04/2016 11:13:38 12/04/19 17 12/04/2016 CMP, serum or plasm a BUN/creatini ne ratio 14 9-20 Not Available [facility] ([facility]) [address] [place], [address], 12/04/2016 11:13:38 12/04/19 17 12/04/2016 CMP, serum or plasm a sodium, serum 144 mmol/ L 134-14 4 Not Available [facility] ([facility]) [address] [place], [address], 12/04/2016 11:13:38 12/04/19 17 12/04/2016 CMP, serum or plasm a potassium, serum 4.7 mmol/ L 3.5-5. 2 Not Available [facility] ([facility]) [address] [place], [address], 12/04/2016 11:13:38 12/04/19 17 12/04/2016 CMP, serum or plasm a chloride, serum 103 mmol/ L 96-106 Not Available [facility] ([facility]) [address] [place], [address], 12/04/2016 11:13:38 12/04/19 17 12/04/2016 CMP, serum or plasm a carbon dioxide, total 24 mmol/ L 18-29 Not Available [facility] ([facility]) [address] [place], [address], 12/04/2016 11:13:38 12/04/19 17 12/04/2016 CMP, serum or plasm a calcium, serum 9.2 mg/dL 8.7-10 .2 Not Available [facility] ([facility]) [address] [place], [address], 12/04/2016 11:13:38 12/04/19 17 12/04/2016 CMP, serum or plasm a protein, total, serum 6.7 g/dL 6.0-8. 5 Not Available [facility] ([facility]) [address] [place], [address], 12/04/2016 11:13:38 12/04/19 17 12/04/2016 CMP, serum or plasm a albumin, serum 3.6 g/dL 3.5-5. 5 Not Available [facility] ([facility]) [address] [place], [address], 12/04/2016 11:13:38 12/04/19 17 12/04/2016 CMP, serum or plasm a globulin, total 3.1 g/dL 1.5-4. 5 Not Available [facility] ([facility]) [address] [place], [address], 12/04/2016 11:13:38 12/04/19 17 12/04/2016 CMP, serum or plasm a A/G ratio 1.2 1.2-2. 2 PLE ASE NOTE REFER ENCE INTER MANUEL DAMON E Not Available [facility] ([facility]) [address] [place], [address], 12/04/2016 11:13:38 12/04/19 17 12/04/2016 CMP, serum or plasm a bilirubin, total 0.3 mg/dL 0.0-1. 2 Not Available [facility] ([facility]) [address] [place], [address], 12/04/2016 11:13:38 12/04/19 17 12/04/2016 CMP, serum or plasm a alkaline phosphatase, S 53 IU/L 39-117 Not Available [facility] ([facility]) [address] [facility], [place], [address], 12/04/2016 11:13:38 12/04/19 17 12/04/2016 CMP, serum or plasm a AST (SGOT) 6 IU/L 0-40 Not Available [facility] ([facility]) [address] [facility], [place], [address], 12/04/2016 11:13:38 12/04/19 17 12/04/2016 CMP, serum or plasm a ALT (SGPT) 7 IU/L 0-44 Not Available [facility] ([facility]) [address] [place], [address], 12/04/2016 11:13:38 12/04/19 17 12/04/2016 lipid panel , serum cholesterol, total 103 mg/dL 100-19 9 Not Available [facility] ([facility]) [address] [place], [address], 12/04/2016 11:13:39 12/04/19 12/04/2016 lipid panel , serum triglyceride s 92 mg/dL 0-149 Not Available [facility] ([facility]) [address] [place], [address], 12/04/2016 11:13:39 12/04/19 17 12/04/2016 lipid panel , serum HDL cholesterol 25 mg/dL >39 below low normal Not Available [facility] ([facility]) [address] [place], [address], 12/04/2016 11:13:39 12/04/19 17 12/04/2016 lipid panel , serum VLDL cholesterol anselmo 18 mg/dL 5-40 Not Available [facility] ([facility]) [address] [place], [address], 12/04/2016 11:13:39 12/04/19 17 12/04/2016 lipid panel , serum LDL cholesterol calc 60 mg/dL 0-99 Not Available [facility] ([facility]) [address] [place], [address], 12/04/2016 11:13:39 12/04/1912/04/2016 lipid panel , serum comment: ZIPPER REPAIRER Not Available [facility] ([facility]) [address] [place], [address], 12/04/2016 11:13:39 12/04/1912/04/2016 lipid panel , serum LDL/HDL ratio 2.4 ratio _unit s 0.0-3. 6 LDL/H DL RATIO MEN WOMEN 1/2 AVG.R ISK 1.0 1.5 AVG.R ISK 3.6 3.2 2X AVG.R ISK 6.2 5.0 3X AVG.R ISK 8.0 6.1 Not Available [facility] ([facility]) [address] [place], [address], 12/04/2016 11:13:39 12/04/19 17 12/04/2016 PSA, serum [...] OF [place] Not Available [facility] ([facility]) [address] [facility], [place], [address], 12/04/2016 11:13:39 12/04/19 17 12/04/2016 HbA1c (hemo globi n A1c), blood hemoglobin A1C 6.3 % 4.8-5. 6 above high normal PRE-D IABET ES: 5.7 - 6.4 DIABE MARIA DEL CARMEN: >6.4 GLYCE JUVENTINO CONTR OL FOR ADULT S WITH DIABE MARIA DEL CARMEN: <7.0 Not Available [facility] ([facility]) [address] [facility], [place], [address], 12/04/2016 11:13:40 12/04/1912/04/2016 vitam in D, 25-hy [...] [facility] DC: [facility] . 2. HEIDE Salazar MF, ALYSSA RAHMAN NC, DAVE OFF-F ERRAR I CHENEY, ET AL. EVALU ATION , TREAT MENT, AND PREVE NTION OF VITAM IN D DEFIC IENCY : AN ENDOC RINE SOCIE TY CLINI ANSELMO PRACT ICE GUIDE LINE. JCEM. 2010; 96(7) :1911 -30. Not Available [facility] ([facility]) [address] [facility], [place], [address], 12/04/2016 11:13:41 12/04/19 17 12/04/2016 CK (crea chuy kinas e), total , serum creatine kinase,total ,serum 62 U/L 24-204 Not Available [facility] ([facility]) [address] [facility], [place], [address], 12/04/2016 11:13:41 09/26/19 16 09/26/2015 imagi ng/di agnos tic resul t No observ ation record ed. [email or web address] Not Available 09/2015 16:44:32 Result Notes None recorded. Problems Name Problem SNOMED Code Status Onset Date Resolution Date Notes Provider Name and Address Organization Details Recorded Time Essential hypertension 61955556 Active Tereso Mathias PA-C Attn: Areli g,[address] [facility], [place], [address], [facility] 6 14:58:12 Hyperlipidemia 23942746 Active Tereso Mathias PA-C Attn: Accountin g,[address] [facility], [place], [address], [facility] - [facility] 6 14:58:12 Tobacco user 890864790 Active Tereso Mathias PA-C Attn: Areli g,[address] [facility], [place], [address], [facility] - [facility] 6 14:58:12 Vitamin D deficiency 30014945 Active Tereso Mathias PA-C Attn: Areli magallon,[address], [place], [address], [place] [facility] 6 14:58:12 Blind right eye 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 Active Tereso Mathias PA-C Attn: Areli g,[address], [place], [address], [place] [facility] 6 14:58:12 Glaucoma 31261190 Active Tereso Mathias PA-C Attn: Accountmaryana g,[address], [place], [address], [place] [facility] 6 14:58:12 Screening for malignant neoplasm of prostate Active 2016 Tereso Mathias PA-C Attn: Areli g,[address], [place], [address], [place] [facility] 7 10:01:18 Family history of diabetes mellitus 852809219 Active 2016 Tereso Mathias PA-C Attn: Areli magallon,[address], [place], [address], [place] [facility] 7 10:02:18 Hearing loss 93174147 Active 2016 Tereso Mathias PA-C Attn: Areli magallon,[address], [place], [address], [place] [facility] 7 14:00:42 Problem Notes None recorded. Procedures Surgical History Date Name Laterality Status Provider Name and Address Organization Details Recorded Time 6 Control Implant Replacement completed Tereso Mathias PA-C Attn: Accounting,[address], [place], [address], [place] [facility] 11/19/2015 17:16:51 5 Eye Surgery completed Araceli Miller [place] - [facility] 07/15/2015 16:13:26 Imaging Results None [...] [degF] 27.1 kg/m2 97 % 97 % 92907.0 99547 g 83 /min 170.18 cm 126/80 mm[Hg] Araceli Miller MA [facility] 6 16:32:52 Date Recorded Body height Body weight Body mass index (BMI) Oxygen saturation Oxygen saturation in Arterial blood by Pulse oximetry Heart rate Body temperature Systolic And Diastolic Provider Name and Address Organization Details Last Updated DateTime 7 170.18 cm 90882.9 1 g 26.5 kg/m2 99 % 99 % 65 /min 98.3 [degF] 110/72 mm[Hg] Araceli Miller MA [facility] 7 09:34:57 Date Recorded Body height Body weight Body mass index (BMI) Oxygen saturation Oxygen saturation in Arterial blood by Pulse oximetry Heart rate Body temperature Systolic And Diastolic Provider Name and Address Organization Details Last Updated DateTime 7 170.18 cm 75641.8 g 24.7 kg/m2 98 % 98 % 65 /min 97.8 [degF] 120/66 mm[Hg] Araceliaj Miller MA [facility] 7 09:45:04 Date Recorded Body height Body mass index (BMI) Body temperature Heart rate Body weight Oxygen saturation Oxygen saturation in Arterial blood by Pulse oximetry Systolic And Diastolic Provider Name and Address Organization Details Last Updated DateTime 6 170.18 cm 26.5 kg/m2 98.5 [degF] 73 /min 88933.9 55836 g 98.5 % 98.5 % 122/62 mm[Hg] Araceli Miller MA [facility] 6 14:25:34 Date Recorded Body weight Oxygen saturation Oxygen saturation in Arterial blood by Pulse oximetry Body height Body mass index (BMI) Heart rate Body temperature Systolic And Diastolic Provider Name and Address Organization Details Last Updated DateTime 5 65311.2 18376 g 98 % 98 % 170.18 cm 27.8 kg/m2 73 /min 98.1 [degF] 120/70 mm[Hg] Araceli Miller [facility] 5 16:18:29 Social History Question Answer Notes LastModified by Organizat ion Details LastModified Time Tobacco Smoking Status Current Every Day Smoker 8 cigarettes per day Tereso Mathias PA-C Attn: Accounting,[address] , [place], [address], [facility] - [facility] 11/19/2015 16:46:10 How Many Years Have You Smoked Tobacco? 16 Information not available 11/19/2015 Sex: Unknown Functional [...] Skin Problems N Anemia N Heart Attack ([place]) N Anxiety Disorder N Diabetes N Muscle, [...] ICD10 Code Diagnosis IMO Codes Diagnosis Note [id number] MD Dominique Horne (Adult Med) [address] [place] [address] 07/15/2015 16:01:26 07/18/2015 11:52:23 Essential hypertension 48513085 I10 Hyperlipidemia 48828315 E78.5 Tobacco user 556556502 Z 72.0 Vitamin D deficiency 347 40339 E55.9 [id number] GONZALO Vega (Adult Med) [address] [place] [address] 11/19/2015 15:59:03 11/19/2015 17:39:42 Essential hypertension 76170091 I10 Hyperlipidemia 74122637 E78.5 Tobacco user 842526989 Z 72.0 Vitamin D deficiency 347 82873 E55.9 Blind right eye 81570533 0 H54.41 removed October 07, 2015 Glaucoma 29506504 H40.9 left eye : on 4 types of eye drops. pressure is 13 [id number] MD Dominique Horne (Adult Med) [address] [place] [address] 04/14/2016 13:43:20 04/14/2016 18:05:17 Blind right eye 122630801 H54.41 removed October 07, 2015 Essential hypertension 80376403 I10 Glaucoma 42566647 H40.9 left eye : on 4 types of eye drops. pressure is 13 Hyperlipidemia 67860914 E78.5 Tobacco user 539432869 Z 72.0 Vitamin D deficiency 347 74765 E55.9 [id number] MD Dominique Horne (Adult Med) [address] [place] [address] 11/18/2016 09:02:57 11/18/2016 17:59:18 Essential hypertension 46634533 I10 Hyperlipidemia 74822048 E78.5 Vitamin D deficiency 347 [address]80 E55.9 Blind right eye 36796498 0 H54.41 removed October 07, 2015 Glaucoma 01942480 H40.9 left eye : on 4 types of eye drops. pressure is 13 Tobacco user 208781001 Z 72.0 Screening for malignant neoplasm of prostate 335085480 Z12.5 Family his tory of diabetes mellitus 797083066 Z83.3 [id number] GONZALO Vega (Adult Med) [address] [place] [address] 02/24/2017 09:11:33 02/24/2017 17:54:57 Tobacco user 694778683 Z72.0 cannot tolerate Chantix Vitamin D deficiency 347 25997 E55.9 Hyperlipidemia 26773825 E78.5 Essential hypertension 92436574 I10 Glaucoma 47455204 H40.9 left eye : on 4 types of eye drops. pressure is 13 Health Concerns Section Related Observation LastModified by Organization Detai ls LastModified Time None Recorded Concern Status LastModified by Organization Details LastModified Time None Recorded Advance Directives Directive None Recorded Payers Insurance Date Sequence Insurance Name Policy Number Policy Guzman Covered Member ID Guzman Member ID Guarantor Name 02/21/2017 1 [facility] (MEDICARE REPLACEMENT/A DVANTAGE - HMO) [id number] Mark Hines [id number] Mark Hines Notes Date Note Type Note Provider Name and Address Organization Details Recorded Time 11/18/2016 text/html ROS as noted in the HPI no changes Tereso Mathias PA-C Attn: Accounting,[address] [facility], [place], [address], [facility] 11/18/2016 14:01:21 02/24/2017 text/html ROS as noted in the HPI no changes , needs another referral to eye doctor at [facility] , for glaucoma treatment Tereso Mathias PA-C Attn: Accounting,[address] [facility], [place], [address], [facility] 02/24/2017 12:42:21
[2025-06-19 18:15] VITALS: BP 150/54; PULSE 83; RESP 18; TEMP 37.4; O2SAT 99
--- NOTE | 2025-06-19 18:19 | ECG_ITS ---
Test Date: 2025-06-19 21:54:58 Measurements Intervals [place] Rate: 84 P: 49 ME: 140 QRS: 49 QRSD: 92 T: 49 QT: 361 QTc: 428 Interpretive Statements SINUS RHYTHM WITH OCCASIONAL SUPRAVENTRICULAR PREMATURE COMPLEXES ST ELEVATION IN ANTEROLATERAL LEADS, PROBABLY EARLY REPOLARIZATION BASELINE ARTIFACT- I, II, III, AVR, AVL, AVF, V1-V6 BORDERLINE ECG Compared to ECG 06/14/2025 19:18:57 NO SIGNIFICANT CHANGE Electronically Signed On 06-20-2025 06:13:38 CDT by Mika Lopez D.O.
--- NOTE | 2025-06-19 18:20 | ED.AMS ---
HPI - Altered Mental Status General Chief Complaint: Altered Mental Status <Madison Meza OVEN OPERATOR AUTOMATIC - Last Filed: 06/19/25 18:22> Stated Complaint: disoriented <Madison Meza APRN - Last Filed: 06/19/25 18:22> Time Seen by Provider: 06/19/25 18:20 <Madison Meza OVEN OPERATOR AUTOMATIC - Last Filed: 06/19/25 18:22> Focused HPI: Patient is a 64 year old male who presents to the ER with altered mental status. His family reports his last known well was Wednesday evening. Patient's reports patient was here 2 weeks ago and treated for pneumonia. She reports he was discharged, admitted again, and discharged for the last time on Wednesday, 3 days ago. Patient's reports he has a history of low sodium, blindness, high blood pressure, and COPD. GENERAL: Well-appearing, well-nourished, and in no acute distress. HEAD: Normocephalic, atraumatic. CHEST: Clear to auscultation. ?No respiratory distress. HEART: Regular rate and rhythm.? NEURO: Alert and oriented x1 Patient screened in triage and initial orders placed.? ?Additional care and disposition to be based upon?diagnostic testing and treatment. <Madison Meza APRN - Last Filed: 06/19/25 18:22> Related Data Home Medications: Home Medications ?Medication ?Instructions ?Recorded ?Confirmed ?Last Taken ?Type losartan 50 mg tablet 50 mg PO DAILY 03/02/21 06/20/25 06/19/25 History montelukast 10 mg tablet 10 mg PO HS 03/02/21 06/20/25 01/10/25 08:00 History 10 mg pravastatin 80 mg tablet 80 mg PO DAILY 03/02/21 06/20/25 06/19/25 History cholecalciferol (vitamin D3) 25 25 mcg PO DAILY 03/29/21 06/20/25 06/19/25 History mcg (1,000 unit) capsule (Vitamin D3) cyanocobalamin (vitamin B-12) 100 2,000 mcg PO DAILY 03/29/21 06/20/25 06/19/25 History mcg tablet dorzolamide 22.3 mg-timolol 6.8 1 drp LEFT EYE TID 06/29/24 06/20/25 06/19/25 History mg/mL eye drops budesonide-formoterol HFA 80 2 puff inhalation Q12H 12/26/24 06/20/25 12/26/24 08:00 History mcg-4.5 mcg/actuation aerosol 2 puff inhaler gabapentin 300 mg capsule 300 mg PO DAILY 12/26/24 06/20/25 06/19/25 History aspirin 81 mg tablet,delayed 81 mg PO DAILY 03/25/25 06/20/25 06/19/25 History release (Adult Aspirin Regimen) baclofen 5 mg tablet 5 mg PO BID 04/24/25 06/20/25 06/19/25 History <Madison Meza APRN - Last Filed: 06/19/25 18:22> Allergies/Adverse Reactions: Allergies Allergy/AdvReac Type Severity Reaction Status Date / Time No Known Allergies Allergy Verified 06/20/25 00:38 <Madison Meza APRN - Last Filed: 06/19/25 18:22> Review of Systems Review of Systems: All systems reviewed & are unremarkable except as noted in HPI and below <Anna Guillen PA-C - Last Filed: 06/20/25 00:28> [facility] Past Medical History Medical History: Medical History Wears hearing aid in both ears Adenomatous colon polyp Asthma-COPD overlap syndrome Hiatal hernia Other osteonecrosis, left femur Other osteonecrosis, right femur Psychogenic polydipsia Erosive esophagitis Anemia of chronic disease Chronic hiccups Hyponatremia Tobacco abuse Normocytic anemia Glaucoma Legally blind. Hyperlipidemia Hypertension <Madison Meza APRN - Last Filed: 06/19/25 18:22> Surgical History Surgical History: Surgical History History of enucleation of eye Right, secondary to recurrent infection. <Madison Meza APRN - Last Filed: 06/19/25 18:22> Family History Family History: Family History Grandparent Acute myocardial infarction Mother Acute myocardial infarction Skin cancer Father Acute myocardial infarction Sibling Cancer <Madison Meza APRN - Last Filed: 06/19/25 18:22> Social History Social History: Social History Social History: Surrogate decision maker: Svitlana Hines, . Code status: Full code. Smoking packs per day: 1.5 Smoking cigarettes per day: 30.0 Years smoked: 50 Smoking pack-years: 75.00 Smoking status: Former smoker Tobacco type: cigarettes Second hand tobacco smoke exposure: No Smoking end date: 05/21/20 Alcohol intake: never Drinks per week: 3 Substance use: never Substance use type: does not use Do You Feel Safe in your Home?: Yes Lack of Transportation: No Lack of Food: Never True Current Housing: I Have Housing Concerned About Future Housing: No Difficulty Paying Gas/Electric Bills: No Difficulty Paying for Meds: No Currently Unemployed: No Education: High School Diploma/GED Difficulty w/ Childcare or Family Care: No Living arrangements: with family Additional living arrangements comments: The patient lives with his of 43 years in [place]. He and his had 4 children 1 of which at . His remaining children are healthy. 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 Spiritual care concerns: No <Madison Meza, OVEN OPERATOR [employer]OMATIC - Last Filed: 06/19/25 18:22> Exam Narrative: GENERAL: Elderly, well-nourished, and in no acute distress. HEAD: Normocephalic, atraumatic. ENT: Nares clear, no rhinorrhea or epistaxis. Mucous membranes moist. Oropharynx without tonsillar hypertrophy exudate or other lesions. Bilateral TMs pearly young non-bulging NECK: Supple. No adenopathy or masses. CHEST: Clear to auscultation. No respiratory distress. No wheezes rales or rhonchi HEART: Regular rate and rhythm. No murmur heard. Normal peripheral pulses. EXTREMITIES: Normal range of motion. No edema. SKIN: Warm, dry, no rash. NEURO: No focal deficits. Alert and oriented x3. PSYCH: Normal mood and affect <Anna Guillen PA-C - Last Filed: 06/20/25 00:28> Course GUMMED T[employer] PRESS OPERATOR/PA Physician Supervision This visit was performed by both a physician and an APC. I performed all aspects of the MDM as documented. <Shawn Mary MD - Last Filed: 06/20/25 07:23> Consultations Consultation #1: spoke with hospitalist about patient and workup who accepts admission <Anna Guillen PA-C - Last Filed: 06/20/25 00:28> Date: 06/19/25 <Anna Guillen PA-C - Last Filed: 06/20/25 00:28> Vital Signs Vital signs: Vital Signs Temperature 37.4 C 06/19/25 18:15 Pulse Rate 83 06/19/25 18:15 Respiratory Rate 18 06/19/25 18:15 Blood Pressure 150/54 H 06/19/25 18:15 Pulse Oximetry 99 06/19/25 18:15 Oxygen Delivery Room Air 06/19/25 18:15 Temperature 36.7 C 06/20/25 05:11 Pulse Rate 84 06/20/25 05:11 Respiratory Rate 18 06/20/25 05:11 Blood Pressure 146/61 H 06/20/25 05:11 Pulse Oximetry 100 06/20/25 05:11 Oxygen Delivery Room Air 06/20/25 00:40 <Madison Meza APRN - Last Filed: 06/19/25 18:22> Vital Signs Temperature 37.4 C 06/19/25 18:15 Pulse Rate 83 06/19/25 18:15 Respiratory Rate 18 06/19/25 18:15 Blood Pressure 150/54 H 06/19/25 18:15 Pulse Oximetry 99 06/19/25 18:15 Oxygen Delivery Room Air 06/19/25 18:15 Temperature 36.7 C 06/20/25 05:11 Pulse Rate 84 06/20/25 05:11 Respiratory Rate 18 06/20/25 05:11 Blood Pressure 146/61 H 06/20/25 05:11 Pulse Oximetry 100 06/20/25 05:11 Oxygen Delivery Room Air 06/20/25 00:40 <Anna Guillen PA-C - Last Filed: 06/20/25 00:28> Vital Signs Temperature 37.4 C 06/19/25 18:15 Pulse Rate 83 06/19/25 18:15 Respiratory Rate 18 06/19/25 18:15 Blood Pressure 150/54 H 06/19/25 18:15 Pulse Oximetry 99 06/19/25 18:15 Oxygen Delivery Room Air 06/19/25 18:15 Temperature 36.7 C 06/20/25 05:11 Pulse Rate 84 06/20/25 05:11 Respiratory Rate 18 06/20/25 05:11 Blood Pressure 146/61 H 06/20/25 05:11 Pulse Oximetry 100 06/20/25 05:11 Oxygen Delivery Room Air 06/20/25 00:40 <Shawn Mary MD - Last Filed: 06/20/25 07:23> MDM - Altered Mental Status MDM Narrative Medical decision making narrative: Patient presents to the ER for confusion. Patient is afebrile nontoxic appearing. His vitals are stable. CBC with leukocytosis to 13. Metabolic panel with evidence of hyponatremia. This has become a recurrent problem for patient as he has psychogenic polydipsia due to chronic hiccups. Urine without evidence of infection. Drug screen negative. Influenza and COVID screens are negative. CT brain without acute findings. Patient usually responds to fluid restriction, will be admitted for further management of hyponatremia <Anna Guillen PA-C - Last Filed: 06/20/25 00:28> Differential Diagnosis Differential diagnosis: Likely altered mental status, delirium, dementia, hypoglycemia, hyponatremia and subarachnoid hemorrhage <Anna Guillen PA-C - Last Filed: 06/20/25 00:28> Lab Data Attestation: I reviewed the patient's lab results. <Anna Guillen PA-C - Last Filed: 06/20/25 00:28> Result diagrams: 06/19/25 19:23 06/20/25 04:54 <Madison Meza APRN - Last Filed: 06/19/25 18:22> Labs: Lab Results 06/19/25 06/19/25 Range/Units 19:23 20:24 WBC 13.0 H (4.5-10.0) K/mm3 RBC 3.73 L (4.6-6.20) M/mm3 Hgb 10.5 L (14.0-18.0) g/dL Hct 31.6 L (42.0-52.0) % MCV 84.7 (80-100) fl MCH 28.2 (26-34) pg MCHC 33.2 (32-36) g/dl RDW 15.0 H (11.5-14.5) % Plt Count 302 (150-375) k/mm3 MPV 10.6 H (7.4-10.4) fl Immature Gran % (Auto) 0.5 (0-0.5) % Neut % (Auto) 87.9 H (45.5-73.1) % Lymph % (Auto) 6.5 L (18.3-44.2) % [place] % (Auto) 4.8 (2.6-8.5) % Eos % (Auto) 0.1 (0-4.4) % Baso % (Auto) 0.2 (0.2-1.2) % Lymph # (Auto) 0.85 L (0.9-3.2) K/mm3 [place] # (Auto) 0.6 (0.1-0.6) K/mm3 Eos # (Auto) 0.0 (0-0.3) K/mm3 Baso # (Auto) 0.0 (0.0-0.1) K/mm3 Abs Immat Gran (auto) 0.06 H (0.00-0.031) K/mm3 Absolute Neuts (auto) 11.4 H (1.3-6.7) K/mm3 Absolute Nucleated RBC 0.000 (0.0-0.012) K/mm3 Nucleated RBC % 0.0 (0.0-0.2) % Sodium 123 L (137-145) mmol/L Potassium 4.9 (3.4-5.0) mmol/L Chloride 87 L (98-107) mmol/L Carbon Dioxide 22 (22-30) mmol/L Anion Gap 14 H (4-12) mmol/L BUN 10 (9-20) mg/dL Creatinine 1.11 (0.7-1.3) mg/dL Estim Creat Clear Calc 43 ml/min Estimated GFR > 60 (59 - ) Glucose 118 H (65-110) mg/dL Calcium 10.1 (8.4-10.2) mg/dL Total Bilirubin 0.6 (0.2-1.3) mg/dL AST 38 (17-59) U/L ALT 14 (6-50) U/L Alkaline Phosphatase 70 (38-126) U/L Ammonia < 9 L (9-30) umol/L Total Protein 8.3 H (6.3-8.2) g/dL Albumin 4.7 (3.5-5.1) g/dL TSH 1.280 (0.465-4.680) uIU/mL Urine Color Yellow (Yellow) Urine Appearance Clear (Clear) Urine pH 6.5 (5.0-9.0) Ur Specific Shannon 1.006 (1.001-1.035) Urine Protein 1+ H (Negative) mg/dL Urine Glucose (UA) Negative (Negative) mg/dL Urine Ketones 1+ H (Negative) mg/dL Ur Blood (Man) Trace (Negative) Urine Nitrate Negative (Negative) Urine Bilirubin Negative (Negative) Urine Urobilinogen 0.2 (<2.0) mg/dL Leukocyte Esterase Rfl Negative (Negative) BENTLEY/UL Urine RBC 0-2 (0-2) /hpf Urine WBC 0-5 (0-3) /hpf Ur Squamous Epith Cells None seen (Few) /hpf Urine Bacteria None seen /hpf Urine Casts 0-2 Urine Opiates Screen Negative (Negative) Urine Methadone Screen Negative (Negative) Ur Barbiturates Screen Negative (Negative) Ur Phencyclidine Scrn Negative (Negative) Ur Amphetamine Screen Negative (Negative) U Benzodiazepines Scrn Negative (Negative) Urine Cocaine Screen Negative (Negative) U Cannabinoids Screen Negative (Negative) Influenza A (RT-PCR) Negative (Negative) Influenza B (RT-PCR) Negative (Negative) RSV (RT-PCR) Negative (Negative) SARS-CoV-2 RNA (RT-PCR) Negative (Negative) <Madison Meza, OVEN OPERATOR AUTOMATIC - Last Filed: 06/19/25 18:22> Lab Results 06/19/25 06/19/25 Range/Units 19:23 20:24 WBC 13.0 H (4.5-10.0) K/mm3 RBC 3.73 L (4.6-6.20) M/mm3 Hgb 10.5 L (14.0-18.0) g/dL Hct 31.6 L (42.0-52.0) % MCV 84.7 (80-100) fl MCH 28.2 (26-34) pg MCHC 33.2 (32-36) g/dl RDW 15.0 H (11.5-14.5) % Plt Count 302 (150-375) k/mm3 MPV 10.6 H (7.4-10.4) fl Immature Gran % (Auto) 0.5 (0-0.5) % Neut % (Auto) 87.9 H (45.5-73.1) % Lymph % (Auto) 6.5 L (18.3-44.2) % [place] % (Auto) 4.8 (2.6-8.5) % Eos % (Auto) 0.1 (0-4.4) % Baso % (Auto) 0.2 (0.2-1.2) % Lymph # (Auto) 0.85 L (0.9-3.2) K/mm3 [place] # (Auto) 0.6 (0.1-0.6) K/mm3 Eos # (Auto) 0.0 (0-0.3) K/mm3 Baso # (Auto) 0.0 (0.0-0.1) K/mm3 Abs Immat Gran (auto) 0.06 H (0.00-0.031) K/mm3 Absolute Neuts (auto) 11.4 H (1.3-6.7) K/mm3 Absolute Nucleated RBC 0.000 (0.0-0.012) K/mm3 Nucleated RBC % 0.0 (0.0-0.2) % Sodium 123 L (137-145) mmol/L Potassium 4.9 (3.4-5.0) mmol/L Chloride 87 L (98-107) mmol/L Carbon Dioxide 22 (22-30) mmol/L Anion Gap 14 H (4-12) mmol/L BUN 10 (9-20) mg/dL Creatinine 1.11 (0.7-1.3) mg/dL Estim Creat Clear Calc 43 ml/min Estimated GFR > 60 (59 - ) Glucose 118 H (65-110) mg/dL Calcium 10.1 (8.4-10.2) mg/dL Total Bilirubin 0.6 (0.2-1.3) mg/dL AST 38 (17-59) U/L ALT 14 (6-50) U/L Alkaline Phosphatase 70 (38-126) U/L Ammonia < 9 L (9-30) umol/L Total Protein 8.3 H (6.3-8.2) g/dL Albumin 4.7 (3.5-5.1) g/dL TSH 1.280 (0.465-4.680) uIU/mL Urine Color Yellow (Yellow) Urine Appearance Clear (Clear) Urine pH 6.5 (5.0-9.0) Ur Specific Shannon 1.006 (1.001-1.035) Urine Protein 1+ H (Negative) mg/dL Urine Glucose (UA) Negative (Negative) mg/dL Urine Ketones 1+ H (Negative) mg/dL Ur Blood (Man) Trace (Negative) Urine Nitrate Negative (Negative) Urine Bilirubin Negative (Negative) Urine Urobilinogen 0.2 (<2.0) mg/dL Leukocyte Esterase Rfl Negative (Negative) BENTLEY/UL Urine RBC 0-2 (0-2) /hpf Urine WBC 0-5 (0-3) /hpf Ur Squamous Epith Cells None seen (Few) /hpf Urine Bacteria None seen /hpf Urine Casts 0-2 Urine Opiates Screen Negative (Negative) Urine Methadone Screen Negative (Negative) Ur Barbiturates Screen Negative (Negative) Ur Phencyclidine Scrn Negative (Negative) Ur Amphetamine Screen Negative (Negative) U Benzodiazepines Scrn Negative (Negative) Urine Cocaine Screen Negative (Negative) U Cannabinoids Screen Negative (Negative) Influenza A (RT-PCR) Negative (Negative) Influenza B (RT-PCR) Negative (Negative) RSV (RT-PCR) Negative (Negative) SARS-CoV-2 RNA (RT-PCR) Negative (Negative) <Anna Guillen PA-C - Last Filed: 06/20/25 00:28> Lab Results 06/19/25 06/19/25 Range/Units 19:23 20:24 WBC 13.0 H (4.5-10.0) K/mm3 RBC 3.73 L (4.6-6.20) M/mm3 Hgb 10.5 L (14.0-18.0) g/dL Hct 31.6 L (42.0-52.0) % MCV 84.7 (80-100) fl MCH 28.2 (26-34) pg MCHC 33.2 (32-36) g/dl RDW 15.0 H (11.5-14.5) % Plt Count 302 (150-375) k/mm3 MPV 10.6 H (7.4-10.4) fl Immature Gran % (Auto) 0.5 (0-0.5) % Neut % (Auto) 87.9 H (45.5-73.1) % Lymph % (Auto) 6.5 L (18.3-44.2) % [place] % (Auto) 4.8 (2.6-8.5) % Eos % (Auto) 0.1 (0-4.4) % Baso % (Auto) 0.2 (0.2-1.2) % Lymph # (Auto) 0.85 L (0.9-3.2) K/mm3 [place] # (Auto) 0.6 (0.1-0.6) K/mm3 Eos # (Auto) 0.0 (0-0.3) K/mm3 Baso # (Auto) 0.0 (0.0-0.1) K/mm3 Abs Immat Gran (auto) 0.06 H (0.00-0.031) K/mm3 Absolute Neuts (auto) 11.4 H (1.3-6.7) K/mm3 Absolute Nucleated RBC 0.000 (0.0-0.012) K/mm3 Nucleated RBC % 0.0 (0.0-0.2) % Sodium 123 L (137-145) mmol/L Potassium 4.9 (3.4-5.0) mmol/L Chloride 87 L (98-107) mmol/L Carbon Dioxide 22 (22-30) mmol/L Anion Gap 14 H (4-12) mmol/L BUN 10 (9-20) mg/dL Creatinine 1.11 (0.7-1.3) mg/dL Estim Creat Clear Calc 43 ml/min Estimated GFR > 60 (59 - ) Glucose 118 H (65-110) mg/dL Calcium 10.1 (8.4-10.2) mg/dL Total Bilirubin 0.6 (0.2-1.3) mg/dL AST 38 (17-59) U/L ALT 14 (6-50) U/L Alkaline Phosphatase 70 (38-126) U/L Ammonia < 9 L (9-30) umol/L Total Protein 8.3 H (6.3-8.2) g/dL Albumin 4.7 (3.5-5.1) g/dL TSH 1.280 (0.465-4.680) uIU/mL Urine Color Yellow (Yellow) Urine Appearance Clear (Clear) Urine pH 6.5 (5.0-9.0) Ur Specific Shannon 1.006 (1.001-1.035) Urine Protein 1+ H (Negative) mg/dL Urine Glucose (UA) Negative (Negative) mg/dL Urine Ketones 1+ H (Negative) mg/dL Ur Blood (Man) Trace (Negative) Urine Nitrate Negative (Negative) Urine Bilirubin Negative (Negative) Urine Urobilinogen 0.2 (<2.0) mg/dL Leukocyte Esterase Rfl Negative (Negative) BENTLEY/UL Urine RBC 0-2 (0-2) /hpf Urine WBC 0-5 (0-3) /hpf Ur Squamous Epith Cells None seen (Few) /hpf Urine Bacteria None seen /hpf Urine Casts 0-2 Urine Opiates Screen Negative (Negative) Urine Methadone Screen Negative (Negative) Ur Barbiturates Screen Negative (Negative) Ur Phencyclidine Scrn Negative (Negative) Ur Amphetamine Screen Negative (Negative) U Benzodiazepines Scrn Negative (Negative) Urine Cocaine Screen Negative (Negative) U Cannabinoids Screen Negative (Negative) Influenza A (RT-PCR) Negative (Negative) Influenza B (RT-PCR) Negative (Negative) RSV (RT-PCR) Negative (Negative) SARS-CoV-2 RNA (RT-PCR) Negative (Negative) <Shawn Mary MD - Last Filed: 06/20/25 07:23> Imaging Data Radiologist's impression: ITS Impressions Head CT 06/19/25 18:39 IMPRESSION: 1. No acute intracranial findings. Chest X-Ray 06/19/25 18:48 IMPRESSION: 1. No acute cardiopulmonary disease. <Anna Guillen PA-C - Last Filed: 06/20/25 00:28> Critical Care Time Critical Care Time Critical Care Time: No <Anna Guillen PA-C - Last Filed: 06/20/25 00:28> Discharge Plan Discharge Clinical Impression: Hyponatremia, Acute metabolic encephalopathy <Madison Meza APRN - Last Filed: 06/19/25 18:22> Patient Disposition: Still a Patient <Madison Meza APRN - Last Filed: 06/19/25 18:22> Condition: Stable <Madison Meza APRN - Last Filed: 06/19/25 18:22>
[2025-06-19 19:31] LABS: Hematocrit 31.6 % (42.0-52.0); Hemoglobin 10.5 g/dL (14.0-18.0); Immature Granulocyte Percent A 0.5 % (0-0.5); Lymphocytes Absolute Auto 0.85 K/mm3 (0.9-3.2); Mean Corpuscular HGB Conc 33.2 g/dl (32-36); Mean Corpuscular Hemoglobin 28.2 pg (26-34); Mean Corpuscular Volume 84.7 fl (80-100); Nucleated Red Blood Cells Absolute Auto 0.000 K/mm3 (0.0-0.012); Nucleated Red Blood Cells Perc 0.0 % (0.0-0.2); Platelet Count Result 302 k/mm3 (150-375); Red Blood Count 3.73 M/mm3 (4.6-6.20); White Blood Count 13.0 K/mm3 (4.5-10.0)
[2025-06-19 19:41] LABS: Ammonia < 9 umol/L (9-30)
[2025-06-19 19:42] LABS: Alanine Aminotransferase 14 U/L (6-50); Albumin Level 4.7 g/dL (3.5-5.1); Alkaline Phosphatase 70 U/L (38-126); Anion Gap 14 mmol/L (4-12); Aspartate Amino Transferase 38 U/L (17-59); Bilirubin,Total 0.6 mg/dL (0.2-1.3); Blood Urea Nitrogen 10 mg/dL (9-20); Calcium 10.1 mg/dL (8.4-10.2); Carbon Dioxide 22 mmol/L (22-30); Chloride 87 mmol/L (98-107); Estimated CRCL calculation 43 ml/min; Estimated Glomerular Filt Rate > 60; Glucose 118 mg/dL (65-110); Potassium 4.9 mmol/L (3.4-5.0); Sodium 123 mmol/L (137-145); Total Protein 8.3 g/dL (6.3-8.2)
[2025-06-19 20:07] LABS: Influenza A QL RT-PCR Negative (Negative); Influenza B QL RT-PCR Negative (Negative); RSV RNA, RT-PCR Negative (Negative); SARS-CoV-2 RNA PCR Negative (Negative)
[2025-06-19 20:14] LABS: Thyroid Stimulating Hormone 1.280 uIU/mL (0.465-4.680)
[2025-06-19 20:37] LABS: Add Urine Microscopic? YES; Appearance Urine Clear (Clear); Glucose Urine UA Negative (Negative); Leukocyte Esterase Ur Negative LEU/UL (Negative); Nitrate Urine Negative (Negative); Non Pathogenic Casts 0-2; Specific Grav Ur 1.006 (1.001-1.035)
[2025-06-19 20:47] LABS: Cannabinoid Screen Urine Negative (Negative)
[2025-06-19 21:33] VITALS: BP 159/73; PULSE 83; RESP 18; TEMP 36.6; O2SAT 100
--- NOTE | 2025-06-19 23:45 | PC.NURSE ---
Family member called and updated that the patient is being admitted to [facility]. No other questions asked.
[2025-06-19 23:55] VITALS: BP 129/74; PULSE 67; RESP 18; O2SAT 99
[2025-06-20] VITALS (11 sets, daily range): BP systolic 100–155; BP diastolic 53–62; PULSE 67–90; RESP 16–18; TEMP 36.7–36.8; O2SAT 99–100; BMI 22.9
--- NOTE | 2025-06-20 00:13 | ADMGEN ---
This patient, Mark Hines, was admitted to Medical Room 251-01. Patient/family oriented to hospital policies and general routines including ID bracelet, bed and alarms, visiting hours, pain management, procedures, bathroom and other care routines, personal items, smoking policy, room service/diet, and visiting hours. Information on how to activate the Rapid Response Team has been discussed. Patient/Family are encouraged to report perceived risks to care and to ask questions if they do not understand what they are told or what they should do.
--- NOTE | 2025-06-20 04:32 | PM.IMHP ---
H&P: HPI History of Present Illness Date/Time: 06/20/25 04:32 Chief Complaint: Altered mental status Narrative: This is a 64-year-old male patient who came to the emergency room with altered mental status. He has a history of chronic hiccups, hard of hearing and blind. The patient recently was treated for pneumonia 2 weeks ago. The patient's stated that his last normal was 2 days ago. His white count was noted to be 13.0 his H&H 10.5 and 31.6. He is known to have chronic anemia and his H&H is at baseline. His sodium was noted to be 123 with this last known sodium of 132. He has a known history of hyponatremia due to water intoxication. The patient drinks an excessive amount of water due to his hiccups. His chest x-ray was read as no acute cardiopulmonary disease. Head CT was read as no acute intracranial findings. Blood pressure 152/62. Patient is afebrile heart rates 84 respirations 16 pulse oximeter is 100%. EKG sinus rhythm with occasional supraventricular premature complexes. The patient is being admitted to observation status on 06/20/2025. Review of Systems Review of Systems: ROS unobtainable: Yes unobtainable due to mental status PMFSH Past Medical History Medical History Wears hearing aid in both ears Adenomatous colon polyp Asthma-COPD overlap syndrome Hiatal hernia Other osteonecrosis, left femur Other osteonecrosis, right femur Psychogenic polydipsia Erosive esophagitis Anemia of chronic disease Chronic hiccups Hyponatremia Tobacco abuse Normocytic anemia Glaucoma Legally blind. Hyperlipidemia Hypertension Surgical History Surgical History History of enucleation of eye Right, secondary to recurrent infection. Family History Family History Grandparent Acute myocardial infarction Mother Acute myocardial infarction Skin cancer Father Acute myocardial infarction Sibling Cancer Social History Social History Social History: Surrogate decision maker: Svitlana Hines, . Code status: Full code. Smoking packs per day: 1.5 Smoking cigarettes per day: 30.0 Years smoked: 50 Smoking pack-years: 75.00 Smoking status: Former smoker Tobacco type: cigarettes Second hand tobacco smoke exposure: No Smoking end date: 05/21/20 Alcohol intake: never Drinks per week: 3 Substance use: never Substance use type: does not use Do You Feel Safe in your Home?: Yes Lack of Transportation: No Lack of Food: Never True Current Housing: I Have Housing Concerned About Future Housing: No Difficulty Paying Gas/Electric Bills: No Difficulty Paying for Meds: No Currently Unemployed: No Education: High School Diploma/GED Difficulty w/ Childcare or Family Care: No Living arrangements: with family Additional living arrangements comments: The patient lives with his of 43 years in [place]. He and his had 4 children 1 of which at . His remaining children are healthy. 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 Spiritual care concerns: No Meds Home Medications and Allergies Home Medications ?Medication ?Instructions ?Recorded ?Confirmed ?Type losartan 50 mg tablet 50 mg PO DAILY 03/02/21 06/20/25 History montelukast 10 mg tablet 10 mg PO HS 03/02/21 06/20/25 History pravastatin 80 mg tablet 80 mg PO DAILY 03/02/21 06/20/25 History cholecalciferol (vitamin D3) 25 25 mcg PO DAILY 03/29/21 06/20/25 History mcg (1,000 unit) capsule (Vitamin D3) cyanocobalamin (vitamin B-12) 100 2,000 mcg PO DAILY 03/29/21 06/20/25 History mcg tablet albuterol sulfate 90 mcg/actuation 1 inh inhalation QID PRN shortness 05/02/21 06/20/25 Rx aerosol inhaler of breath or wheezing #8.5 grams dorzolamide 22.3 mg-timolol 6.8 1 drp LEFT EYE TID 06/29/24 06/20/25 History mg/mL eye drops budesonide-formoterol HFA 80 2 puff inhalation Q12H 12/26/24 06/20/25 History mcg-4.5 mcg/actuation aerosol inhaler gabapentin 300 mg capsule 300 mg PO DAILY 12/26/24 06/20/25 History chlorpromazine 25 mg tablet 25 mg PO Q6H PRN Hiccups #30 tabs 01/11/25 06/20/25 Rx aspirin 81 mg tablet,delayed 81 mg PO DAILY 03/25/25 06/20/25 History release (Adult Aspirin Regimen) baclofen 5 mg tablet 5 mg PO BID 04/24/25 06/20/25 History famotidine 20 mg tablet 20 mg PO Q12HR #60 tabs 06/15/25 06/20/25 Rx Allergies Allergy/AdvReac Type Severity Reaction Status Date / Time No Known Allergies Allergy Verified 06/20/25 00:38 Vital Signs Vital Signs - 24 hr 06/19/25 18:15 06/19/25 21:33 06/19/25 23:55 Temperature 99.4 F 97.9 F Pulse Rate 83 83 67 Respiratory Rate 18 18 18 Blood Pressure 150/54 H 159/73 H 129/74 Pulse Oximetry 99 100 99 Oxygen Delivery Room Air 06/20/25 00:00 06/20/25 00:20 06/20/25 00:40 Temperature 98.3 F Pulse Rate 83 84 Respiratory Rate 16 Blood Pressure 155/62 H Pulse Oximetry 100 Oxygen Delivery Room Air 06/20/25 04:00 Temperature Pulse Rate 87 Respiratory Rate Blood Pressure Pulse Oximetry Oxygen Delivery Exam Const: General: cooperative, comfortable, no acute distress, awake, Physically active, average body habitus and well nourished Nutritional Appearance: average body habitus and well nourished Orientation/consciousness: oriented to person HENMT: Head: normal to inspection, No palpable skull fracture present and normocephalic Other: He is hard of hearing bilaterally Eyes: Eyelids: eyelids normal Other: Film over bilateral eyes. The patient is clinically blind. Neck: Neck: full ROM Chest: Other: Constant hiccups Resp: Effort & Inspection: normal respiratory effort Auscultation: clear to auscultation bilaterally Cardio: Palpation: normal PMI Rate: regular rate Rhythm: regular rhythm Heart sounds: S1 normal heart sound present and S2 normal heart sound present Peripheral pulses: Peripheral pulses 2+ throughout GI: Inspection: normal to inspection Rectal Exam: deferred Back/Spine/Pelvis: Cervical Spine: cervical ROM normal Skin: General skin exam: normal color Lesions: no lesions Rashes: no rashes Trauma: no lacerations or abrasions Wounds: no wounds Hair: normal Nails: normal Neuro: General: oriented to person Cranial nerves: Yes Equal, round and reactive pupils present Motor exam (neuro): 5/5 motor strength present throughout Sensory Exam: normal sensation Extrem: General: normal to inspection Right upper extremity: normal to inspection and shoulder/upper arm Left upper extremity: normal to inspection and shoulder/upper arm Right lower extremity: normal to inspection Left lower extremity: normal to inspection H&P: Results Labs Labs: Short CBC 06/19/25 Range/Units 19:23 WBC 13.0 H (4.5-10.0) K/mm3 Hgb 10.5 L (14.0-18.0) g/dL Hct 31.6 L (42.0-52.0) % Plt Count 302 (150-375) k/mm3 BMP 06/19/25 19:23 Sodium 123 L Potassium 4.9 Chloride 87 L Carbon Dioxide 22 BUN 10 Creatinine 1.11 Glucose 118 H Calcium 10.1 Liver Function 06/19/25 Range/Units 19:23 Total Bilirubin 0.6 (0.2-1.3) mg/dL AST 38 (17-59) U/L ALT 14 (6-50) U/L Alkaline Phosphatase 70 (38-126) U/L Albumin 4.7 (3.5-5.1) g/dL Urine 06/19/25 Range/Units 20:24 Urine Color Yellow (Yellow) Urine Appearance Clear (Clear) Urine pH 6.5 (5.0-9.0) Ur Specific [place] 1.006 (1.001-1.035) Urine Protein 1+ H (Negative) mg/dL Urine Glucose (UA) Negative (Negative) mg/dL Imaging Chest x-ray: Radiologist's impression: Impressions Head CT 06/19/25 18:39 IMPRESSION: 1. No acute intracranial findings. Chest X-Ray 06/19/25 18:48 IMPRESSION: 1. No acute cardiopulmonary disease. Assessment and Plan Assessment and plan (1) Hyponatremia: Code(s): E87.1 - Hypo-osmolality and hyponatremia Status: Acute Assessment and Plan: -most likely secondary to his psychogenic polydipsia. -continue with fluid restriction -hold any medications that may decreased sodium. (2) Altered mental status: Code(s): R41.82 - Altered mental status, unspecified Status: Acute Assessment and Plan: -could be secondary to his hyponatremia. -head CT and chest x-ray were negative. -I am holding baclofen at this time. (3) Hypertension: Code(s): I10 - Essential (primary) hypertension Status: Chronic Assessment and Plan: -continue with losartan if blood pressure allows. -current blood pressure 155/62. (4) Hyperlipidemia: Code(s): E78.5 - Hyperlipidemia, unspecified Status: Chronic Assessment and Plan: -. Continue with pravastatin and monitor liver functions. (5) Glaucoma: Code(s): H40.9 - Unspecified glaucoma Status: Chronic Assessment and Plan: -patient is clinically blind bilaterally. -continue with home eye drops. (6) Esophagitis: Code(s): K20.90 - Esophagitis, unspecified without bleeding Status: Acute Assessment and Plan: -IV Pepcid. (7) Psychogenic polydipsia: Code(s): R63.1 - Polydipsia; F54 - Psychological and behavioral factors associated with disorders or diseases classified elsewhere Status: Chronic Assessment and Plan: -continue with fluid restrictions -monitor sodium levels. -the patient has chronic low sodium levels. -patient's sodium level was 123 his last known sodium was 132. However it has gotten down as low as 124 in the past. (8) Chronic hiccups: Code(s): R06.6 - Hiccough Status: Acute Assessment and Plan: -p.r.nJanene Thorazine Quality VTE Prophylaxis VTE prophylaxis: mechanical ordered
[2025-06-20 05:31] LABS: Anion Gap 9 mmol/L (4-12); Blood Urea Nitrogen 8 mg/dL (9-20); Calcium 10.1 mg/dL (8.4-10.2); Carbon Dioxide 25 mmol/L (22-30); Chloride 93 mmol/L (98-107); Estimated CRCL calculation 70 ml/min; Estimated Glomerular Filt Rate > 60; Glucose 98 mg/dL (65-110); Potassium 4.7 mmol/L (3.4-5.0); Sodium 127 mmol/L (137-145)
--- NOTE | 2025-06-20 08:11 | PM.IMPN ---
Progress Note: A&P Assessment and Plan (1) Altered mental status: Code(s): R41.82 - Altered mental status, unspecified Status: Acute Assessment and Plan: - possibly secondary to his hyponatremia. - head ct: no acute intracranial findings - chest xr: negative - holding baclofen at this time. Currently AOx3. Denies any confusion. (2) Hyponatremia: Code(s): E87.1 - Hypo-osmolality and hyponatremia Status: Acute Assessment and Plan: - known history of hyponatremia 2/2 psychogenic polydipsia - previously 132 on 06/15, however 123 on admission. Repeat Na improving, currently 127. - continue fluid restriction - add urine osmolality, serum osmolality, and urine sodium - patient appears euvolemic rule out SIDAH 2/2 SCLC with chest xr: negative adrenal insufficiency: cortisol and TSH ordered Likely secondary to polydipsia as patient notes he has not been following his fluid restriction well at home given increased hiccups. (3) Chronic hiccups: Code(s): R06.6 - Hiccough Status: Acute Assessment and Plan: -p.r.n. Thorazine (4) Psychogenic polydipsia: Code(s): R63.1 - Polydipsia; F54 - Psychological and behavioral factors associated with disorders or diseases classified elsewhere Status: Chronic Assessment and Plan: - secondary to chronic hiccups - continue with fluid restrictions (5) Hypertension: Code(s): I10 - Essential (primary) hypertension Status: Chronic Assessment and Plan: -Chronic, continue losartan 50 mg daily - blood pressures remain stable, continue to monitor (6) Hyperlipidemia: Code(s): E78.5 - Hyperlipidemia, unspecified Status: Chronic Assessment and Plan: -Continue with pravastatin (7) Glaucoma: Code(s): H40.9 - Unspecified glaucoma Status: Chronic Assessment and Plan: -patient is clinically blind bilaterally. -continue with home eye drops. (8) Esophagitis: Code(s): K20.90 - Esophagitis, unspecified without bleeding Status: Acute Assessment and Plan: -IV Pepcid. Time Spent With Patient Time with patient: 25 - 35 minutes Subjective Date/time seen: 06/20/25 08:11 Interval history: 64-year-old male with a past medical history of psychogenic polydipsia with recurrent hyponatremia, COPD, essential hypertension, hyperlipidemia, 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 Patient is pleasant sitting up comfortably in bed. He is alert oriented x3 at time of assessment. Patient has no complaints denying chest pain, shortness a breath, palpitations, nausea/vomiting, and abdominal pain. Patient states that his hiccups have recently gotten worse he was not following his fluid restriction is closely at home as he typically does. He denies any increased confusion/tingling/numbness, dizziness. Review of Systems Review of Systems: All systems reviewed & are unremarkable except as noted in HPI and below Exam Narrative: AF HR 76 RR 16 SpO2 99 BP 108/62 General: male in no acute respiratory distress who is nontoxic appearing, sitting up in bed. HEENT: Normocephalic. Atraumatic. Bilateral blindness. No facial asymmetry. Chest: Lungs are clear to auscultation bilaterally. No wheezes or crackles. CV: Heart was regular rate and rhythm. Abd: Abdomen was soft. Nontender. Nondistended. Positive bowel sounds. Ext: No clubbing, cyanosis, or edema. DP pulses bilaterally. Neuro: Patient is alert and oriented x3. Speech is clear. Objective Data Vital Signs Vital Signs: Vital Signs - 24 hr 06/19/25 18:15 06/19/25 21:33 06/19/25 23:55 Temperature 99.4 F 97.9 F Pulse Rate 83 83 67 Respiratory Rate 18 18 18 Blood Pressure 150/54 H 159/73 H 129/74 Pulse Oximetry 99 100 99 Oxygen Delivery Room Air 06/20/25 00:00 06/20/25 00:20 06/20/25 00:40 Temperature 98.3 F Pulse Rate 83 84 Respiratory Rate 16 Blood Pressure 155/62 H Pulse Oximetry 100 Oxygen Delivery Room Air 06/20/25 04:00 06/20/25 05:11 Temperature 98.0 F Pulse Rate 87 84 Respiratory Rate 18 Blood Pressure 146/61 H Pulse Oximetry 100 Oxygen Delivery Intake/Output Intake/Output: Intake & Output 06/17/25 06/18/25 06/19/25 06/20/25 23:59 23:59 23:59 23:59 Intake Total 0 Output Total 900 Balance -900 Meds/Results Medications: Active Medications Generic Name Dose Route Start Last Admin Trade Name Freq PRN Reason Stop Dose Admin Albuterol 2 puff 06/20/25 04:46 Albuterol Sulfate (*Sp) Aerosol 1 Puff INHALATION QID PRN Shortness Of Breath Or Wheezing Aspirin 81 mg 06/20/25 09:00 Aspirin 81 Mg Enteric Tablet PO DAILY [facility] Chlorpromazine HCl 25 mg 06/20/25 04:29 06/20/25 05:57 Chlorpromazine Hcl 25 Mg Tablet PO 25 mg Q6H PRN Administration Hiccups Cyanocobalamin 2,000 mcg 06/20/25 09:00 Cyanocobalamin 1,000 Mcg Tablet PO QAM [facility] Dorzolamide/Timolol 1 drop 06/20/25 09:00 Dorzolamide/Timolol Ophth Shannon 10 Ml Bottle LEFT EYE TID [facility] Famotidine 20 mg 06/20/25 09:00 Famotidine 20 Mg/2 Ml Vial IV PUSH Q12HR [facility] Gabapentin 300 mg 06/20/25 09:00 Gabapentin 300 Mg Capsule PO DAILY [facility] Losartan Potassium 50 mg 06/20/25 09:00 Losartan Potassium 50 Mg Tablet PO DAILY [facility] Montelukast Sodium 10 mg 06/20/25 21:00 Montelukast Sodium 10 Mg Tablet PO HS [facility] Pravastatin Sodium 80 mg 06/20/25 09:00 Pravastatin Sodium 20 Mg Tablet PO DAILY [facility] Fluticasone/Salmeterol 2 puff 06/20/25 08:00 Fluticasone/Salmeterol 45-21 Mcg Inhaler 1 Puff INHALATION Q12HRT [facility] Vitamin D 25 mcg 06/20/25 09:00 Cholecalciferol (Vitamin D3) 25 Mcg (1,000 Units) Tablet PO DAILY [facility] Radiology Results: ITS Impressions Head CT 06/19/25 18:39 IMPRESSION: 1. No acute intracranial findings. Chest X-Ray 06/19/25 18:48 IMPRESSION: 1. No acute cardiopulmonary disease. Labs Labs: Laboratory Results - last 24 hr 06/19/25 06/19/25 06/20/25 19:23 20:24 04:54 WBC 13.0 H RBC 3.73 L Hgb 10.5 L Hct 31.6 L MCV 84.7 MCH 28.2 MCHC 33.2 RDW 15.0 H Plt Count 302 MPV 10.6 H Immature Gran % (Auto) 0.5 Neut % (Auto) 87.9 H Lymph % (Auto) 6.5 L [place] % (Auto) 4.8 Eos % (Auto) 0.1 Baso % (Auto) 0.2 Lymph # (Auto) 0.85 L [place] # (Auto) 0.6 Eos # (Auto) 0.0 Baso # (Auto) 0.0 Abs Immat Gran (auto) 0.06 H Absolute Neuts (auto) 11.4 H Absolute Nucleated RBC 0.000 Nucleated RBC % 0.0 Sodium 123 L 127 L Potassium 4.9 4.7 Chloride 87 L 93 L Carbon Dioxide 22 25 Anion Gap 14 H 9 BUN 10 8 L Creatinine 1.11 0.88 Estim Creat Clear Calc 43 70 Estimated GFR > 60 > 60 Glucose 118 H 98 Calcium 10.1 10.1 Total Bilirubin 0.6 AST 38 ALT 14 Alkaline Phosphatase 70 Ammonia < 9 L Total Protein 8.3 H Albumin 4.7 TSH 1.280 Urine Color Yellow Urine Appearance Clear Urine pH 6.5 Ur Specific [place] 1.006 Urine Protein 1+ H Urine Glucose (UA) Negative Urine Ketones 1+ H Ur Blood (Man) Trace Urine Nitrate Negative Urine Bilirubin Negative Urine Urobilinogen 0.2 Leukocyte Esterase Rfl Negative Urine RBC 0-2 Urine WBC 0-5 Ur Squamous Epith Cells None seen Urine Bacteria None seen Urine Casts 0-2 Urine Opiates Screen Negative Urine Methadone Screen Negative Ur Barbiturates Screen Negative Ur Phencyclidine Scrn Negative Ur Amphetamine Screen Negative U Benzodiazepines Scrn Negative Urine Cocaine Screen Negative U Cannabinoids Screen Negative Influenza A (RT-PCR) Negative Influenza B (RT-PCR) Negative RSV (RT-PCR) Negative SARS-CoV-2 RNA (RT-PCR) Negative Quality VTE Prophylaxis VTE prophylaxis: mechanical ordered
[2025-06-20] MEDS: PRAVASTATIN SODIUM 20 MG TABLET 80 MG PO (08:31)
[2025-06-20] MEDS: ASPIRIN 81 MG ENTERIC TABLET PO (08:31)
[2025-06-20] MEDS: CYANOCOBALAMIN 1,000 MCG TABLET 2000 MCG PO (08:31)
[2025-06-20] MEDS: LOSARTAN POTASSIUM 50 MG TABLET PO (08:31)
[2025-06-20] MEDS: GABAPENTIN 300 MG CAPSULE PO (08:31)
[2025-06-20] MEDS: CHOLECALCIFEROL (VITAMIN D3) 25 MCG (1,000 UNITS) TABLET PO (08:31)
[2025-06-20] MEDS: DORZOLAMIDE/TIMOLOL OPHTH SOL 10 ML BOTTLE 1 DROP LEFT EYE ×3 (08:32→17:10)
[2025-06-20] MEDS: FAMOTIDINE 20 MG/2 ML VIAL IV PUSH ×2 (08:32→20:16)
[2025-06-20 09:03] LABS: Thyroid Stimulating Hormone Reflex 0.940 uIU/mL (0.465-4.68)
[2025-06-20] MEDS: FLUTICASONE/SALMETEROL 45-21 MCG INHALER 1 PUFF 2 PUFF INHALATION ×2 (09:24→20:23)
[2025-06-20] MEDS: ACETAMINOPHEN 325 MG TABLET 650 MG PO (10:42)
[2025-06-20] MEDS: MONTELUKAST SODIUM 10 MG TABLET PO (20:16)
[2025-06-21] VITALS (7 sets, daily range): BP systolic 110–122; BP diastolic 51–62; PULSE 76–87; RESP 18; TEMP 36.3–36.6; O2SAT 97–99
[2025-06-21 05:18] LABS: Hematocrit 31.1 % (42.0-52.0); Hemoglobin 10.1 g/dL (14.0-18.0); Immature Granulocyte Percent A 0.7 % (0-0.5); Lymphocytes Absolute Auto 1.55 K/mm3 (0.9-3.2); Mean Corpuscular HGB Conc 32.5 g/dl (32-36); Mean Corpuscular Hemoglobin 28.5 pg (26-34); Mean Corpuscular Volume 87.9 fl (80-100); Nucleated Red Blood Cells Absolute Auto 0.000 K/mm3 (0.0-0.012); Nucleated Red Blood Cells Perc 0.0 % (0.0-0.2); Platelet Count Result 252 k/mm3 (150-375); Red Blood Count 3.54 M/mm3 (4.6-6.20); White Blood Count 12.2 K/mm3 (4.5-10.0)
[2025-06-21 05:34] LABS: Anion Gap 10 mmol/L (4-12); Blood Urea Nitrogen 22 mg/dL (9-20); Calcium 9.5 mg/dL (8.4-10.2); Carbon Dioxide 23 mmol/L (22-30); Chloride 97 mmol/L (98-107); Estimated CRCL calculation 50 ml/min; Estimated Glomerular Filt Rate 58; Glucose 106 mg/dL (65-110); Potassium 4.4 mmol/L (3.4-5.0); Sodium 130 mmol/L (137-145)
[2025-06-21] MEDS: CHOLECALCIFEROL (VITAMIN D3) 25 MCG (1,000 UNITS) TABLET PO (08:19)
[2025-06-21] MEDS: CYANOCOBALAMIN 1,000 MCG TABLET 2000 MCG PO (08:19)
[2025-06-21] MEDS: FAMOTIDINE 20 MG/2 ML VIAL IV PUSH (08:19)
[2025-06-21] MEDS: ASPIRIN 81 MG ENTERIC TABLET PO (08:19)
[2025-06-21] MEDS: FLUTICASONE/SALMETEROL 45-21 MCG INHALER 1 PUFF 2 PUFF INHALATION (08:19)
[2025-06-21] MEDS: PRAVASTATIN SODIUM 20 MG TABLET 80 MG PO (08:20)
[2025-06-21] MEDS: GABAPENTIN 300 MG CAPSULE PO (08:20)
[2025-06-21] MEDS: LOSARTAN POTASSIUM 50 MG TABLET PO (08:20)
[2025-06-21] MEDS: DORZOLAMIDE/TIMOLOL OPHTH SOL 10 ML BOTTLE 1 DROP LEFT EYE ×3 (08:20→17:07)
--- NOTE | 2025-06-21 09:05 | WPDCDIQUERY2 ---
CDI Query Clarification Request Please clarify the underlying possible/probable/suspected cause for the altered mental status in the progress notes: ? Encephalopathy (metabolic, COVID, hepatic, hypoxic, uremic, [place]ern[place], other) ? Neurologic condition (CVA/TIA/NPH/seizure) ? Electrolyte/metabolic imbalance/dehydration ? Infectious process (i.e. meningitis/encephalitis) ? Psychiatric condition ? Respiratory condition ? Dementia ? Other, please specify ? Unknown/unable to determine ER documented: Clinical Impression: Hyponatremia, Acute metabolic encephalopathy Hospitalist documented: Assessment and Plan (1) Altered mental status: Code(s): R41.82 - Altered mental status, unspecified Status: Acute Assessment and Plan: - possibly secondary to his hyponatremia. - head ct: no acute intracranial findings - chest xr: negative - holding baclofen at this time. Currently AOx3. Denies any confusion. (2) Hyponatremia: Code(s): E87.1 - Hypo-osmolality and hyponatremia Status: Acute Assessment and Plan: - known history of hyponatremia 2/2 psychogenic polydipsia - previously 132 on 06/15, however 123 on admission. Repeat Na improving, currently 127. - continue fluid restriction - add urine osmolality, serum osmolality, and urine sodium - patient appears euvolemic rule out SIDAH 2/2 SCLC with chest xr: negative adrenal insufficiency: cortisol and TSH ordered Likely secondary to polydipsia as patient notes he has not been following his fluid restriction well at home given increased hiccups. (3) Chronic hiccups: Code(s): R06.6 - Hiccough Status: Acute Assessment and Plan: -p.r.n. Thorazine (4) Psychogenic polydipsia: Code(s): R63.1 - Polydipsia; F54 - Psychological and behavioral factors associated with disorders or diseases classified elsewhere Status: Chronic Assessment and Plan: - secondary to chronic hiccups - continue with fluid restrictions (5) Hypertension: Code(s): I10 - Essential (primary) hypertension Status: Chronic Assessment and Plan: -Chronic, continue losartan 50 mg daily - blood pressures remain stable, continue to monitor (6) Hyperlipidemia: Code(s): E78.5 - Hyperlipidemia, unspecified Status: Chronic Assessment and Plan: -Continue with pravastatin (7) Glaucoma: Code(s): H40.9 - Unspecified glaucoma Status: Chronic Assessment and Plan: -patient is clinically blind bilaterally. -continue with home eye drops. (8) Esophagitis: Code(s): K20.90 - Esophagitis, unspecified without bleeding Status: Acute Assessment and Plan: -IV Pepcid. <Mali Hussein RN - Last Filed: 06/21/25 09:11> Please clarify the underlying possible/probable/suspected cause for the altered mental status in the progress notes: ? Encephalopathy metabolic ? ER documented: Clinical Impression: Hyponatremia, Acute metabolic encephalopathy Hospitalist documented: Assessment and Plan (1) Altered mental status: Code(s): R41.82 - Altered mental status, unspecified Status: Acute Assessment and Plan: - possibly secondary to his hyponatremia. - head ct: no acute intracranial findings - chest xr: negative - holding baclofen at this time. Currently AOx3. Denies any confusion. (2) Hyponatremia: Code(s): E87.1 - Hypo-osmolality and hyponatremia Status: Acute Assessment and Plan: - known history of hyponatremia 2/2 psychogenic polydipsia - previously 132 on 06/15, however 123 on admission. Repeat Na improving, currently 127. - continue fluid restriction - add urine osmolality, serum osmolality, and urine sodium - patient appears euvolemic rule out SIDAH 2/2 SCLC with chest xr: negative adrenal insufficiency: cortisol and TSH ordered Likely secondary to polydipsia as patient notes he has not been following his fluid restriction well at home given increased hiccups. (3) Chronic hiccups: Code(s): R06.6 - Hiccough Status: Acute Assessment and Plan: -p.r.n. Thorazine (4) Psychogenic polydipsia: Code(s): R63.1 - Polydipsia; F54 - Psychological and behavioral factors associated with disorders or diseases classified elsewhere Status: Chronic Assessment and Plan: - secondary to chronic hiccups - continue with fluid restrictions (5) Hypertension: Code(s): I10 - Essential (primary) hypertension Status: Chronic Assessment and Plan: -Chronic, continue losartan 50 mg daily - blood pressures remain stable, continue to monitor (6) Hyperlipidemia: Code(s): E78.5 - Hyperlipidemia, unspecified Status: Chronic Assessment and Plan: -Continue with pravastatin (7) Glaucoma: Code(s): H40.9 - Unspecified glaucoma Status: Chronic Assessment and Plan: -patient is clinically blind bilaterally. -continue with home eye drops. (8) Esophagitis: Code(s): K20.90 - Esophagitis, unspecified without bleeding Status: Acute Assessment and Plan: -IV Pepcid. <Starr Yap PA-C - Last Filed: 06/21/25 14:07>
[2025-06-21] MEDS: ACETAMINOPHEN 325 MG TABLET 650 MG PO (10:27)
--- NOTE | 2025-06-21 12:38 | P.DS_ITS ---
DS: Admitting Diagnosis Discharge Date 06/21/2025 Admitting Diagnosis AMS Hyponatremia Chronic hiccups HTN HLD Esophagitis DS: Discharge Diagnosis Discharge Diagnosis (1) Hyponatremia: Code(s): E87.1 - Hypo-osmolality and hyponatremia Status: Acute (2) Altered mental status: Code(s): R41.82 - Altered mental status, unspecified Status: Acute (3) Hypertension: Code(s): I10 - Essential (primary) hypertension Status: Chronic (4) Hyperlipidemia: Code(s): E78.5 - Hyperlipidemia, unspecified Status: Chronic (5) Glaucoma: Code(s): H40.9 - Unspecified glaucoma Status: Chronic (6) Esophagitis: Code(s): K20.90 - Esophagitis, unspecified without bleeding Status: Acute (7) Psychogenic polydipsia: Code(s): R63.1 - Polydipsia; F54 - Psychological and behavioral factors associated with disorders or diseases classified elsewhere Status: Chronic (8) Chronic hiccups: Code(s): R06.6 - Hiccough Status: Acute DS: Summary Hospital Course Reason for hospitalization: AMS Hyponatremia Chronic hiccups HTN HLD Esophagitis Hospital Course: 64-year-old male with a past medical history of psychogenic polydipsia with recurrent hyponatremia, COPD, essential hypertension, hyperlipidemia, 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 Patient remained alert oriented x3 throughout hospitalization. UA nonconcerning for infection. Patient had a head ct and chest xr performed which were unremarkable. Patient noted to be hyponatremic on admission to [facility]. He has a known history of hyponatremia 2/2 psychogenic polydipsia. Patient stated that his hiccups had recently gotten worse and he had not been following his fluid restriction prior to admission. Patient placed on fluid restriction and sodium returned to around patients baseline of 130. Prior discharge discussed patient's case with Nephrology who is in agreement that sodium is stable for discharge. Had a lengthy discussion with patient that he needs to continue his medications for the hiccups as prescribed and follow the fluid restriction. Patient states understanding. Patient had no complaints at time of discharge denying chest pain, palpitations, shortness of breath, nausea/vomiting and abdominal pain. He states he feels back to his baseline and is ready for discharge. Patient notes he has a PCP appointment on 06/26. Patient is to obtain a BMP in 5 days to reassess sodium level, lab to be CC to PCP. Patient discharged home in a stable condition. He is to follow up with PCP as scheduled. Status at Discharge Functional status at discharge: uses cane/walker Time Spent with Patient Time attestation: Total time spent providing and/or coordinating discharge services: Time spent: Greater than 30 minutes Exam Narrative: AF HR 78 RR 18 SpO2 99 BP 122/62 General: male in no acute respiratory distress who is nontoxic appearing, sitting up in bed. HEENT: Normocephalic. Atraumatic. Bilateral blindness. No facial asymmetry. Chest: Lungs are clear to auscultation bilaterally. No wheezes or crackles. CV: Heart was regular rate and rhythm. Abd: Abdomen was soft. Nontender. Nondistended. Positive bowel sounds. Ext: No clubbing, cyanosis, or edema. DP pulses bilaterally. Neuro: Patient is alert and oriented x3. Speech is clear. DS: Data Data Completed and Pending Completed studies during hospitalization: Chest XR Head CT Labs on day of discharge: Labs from last 24 hours 06/21/25 06/20/25 04:59 15:51 WBC 12.2 H RBC 3.54 L Hgb 10.1 L Hct 31.1 L MCV 87.9 MCH 28.5 MCHC 32.5 RDW 15.7 H Plt Count 252 MPV 11.0 H Immature Gran % (Auto) 0.7 H Neut % (Auto) 79.0 H Lymph % (Auto) 12.7 L Cole % (Auto) 6.5 Eos % (Auto) 0.7 Baso % (Auto) 0.4 Lymph # (Auto) 1.55 [place] # (Auto) 0.8 H Eos # (Auto) 0.1 Baso # (Auto) 0.1 Abs Immat Gran (auto) 0.09 H Absolute Neuts (auto) 9.6 H Absolute Nucleated RBC 0.000 Nucleated RBC % 0.0 Sodium 130 L Potassium 4.4 Chloride 97 L Carbon Dioxide 23 Anion Gap 10 BUN 22 H D Creatinine 1.26 Estim Creat Clear Calc 50 Estimated GFR 58 L Glucose 106 Calcium 9.5 Urine Osmolality Pending Ur Random Sodium 11 Discharge Plan Discharge Attending physician on discharge: Michael Wells Consulting providers: Starr Yaparging Clinician: Starr Yap Anticipated Discharge Date/Time: 06/21/25 12:26 Patient Disposition: Home Activity: as tolerated Diet: as tolerated Discharge Instructions: Discharge disposition: Patient admitted to the hospital for hyponatremia likely secondary to polydipsia related to chronic hiccups Patient is to continue strict fluid restriction of 2000 ml/day Continue chlorpromazine and famotidine as prescribed Obtain a BMP to reassess sodium level in 5 days Monitor blood pressures Take caution while standing, rising, or moving Change positions slowly taking a break between each position change If you standing feel dizzy sit back down and take a break Encouraged to continue with yearly vaccinations Return to the emergency department if he developed sudden shortness of breath, chest pain, nausea, vomiting, upset stomach or intractable diarrhea Return to the emergency department if you develop fever greater than 100.5 Follow-up with the primary care physician within 1-2 weeks Thank you for choosing [facility] for your healthcare needs Patient Instructions: Hyponatremia (DC), Hiccups (DC) Patient Language: Uzbek Stand Alone Forms: General Discharge Information Follow-up/Referrals: Celine,TRAVIS Lawler [Primary Care Provider, Unknown] - 1 Week Discharge Medications: Continued baclofen 5 mg tablet 5 mg PO BID losartan 50 mg tablet 50 mg PO DAILY pravastatin 80 mg tablet 80 mg PO DAILY montelukast 10 mg tablet 10 mg PO HS albuterol sulfate 90 mcg/actuation HFA aerosol inhaler 1 inh inhalation QID PRN (Reason: shortness of breath or wheezing) Qty: 8.5 0RF dorzolamide-timolol 22.3-6.8 mg/mL drops 1 drp LEFT EYE TID gabapentin 300 mg capsule 300 mg PO DAILY budesonide-formoterol 80-4.5 mcg/actuation HFA aerosol inhaler 2 puff INHALATION Q12H famotidine 20 mg Tablet 20 mg PO Q12HR Qty: 60 0RF cyanocobalamin (vitamin B-12) 100 mcg Tablet 2,000 mcg PO DAILY cholecalciferol (vitamin D3) [Vitamin D3] 25 mcg (1,000 unit) Capsule 25 mcg PO DAILY chlorpromazine 25 mg Tablet 25 mg PO Q6H PRN (Reason: Hiccups) Qty: 30 0RF aspirin [Adult Aspirin Regimen] 81 mg tablet,delayed release (DR/EC) 81 mg PO DAILY Other Ambulatory Orders: Basic Metabolic Panel (Routine) Timeframe: 5 Days Location: Determined by Patient Ordered By: Starr Yap Date of admission: 06/20/25 07:54 Primary Care Provider: CelineNuris Admitting Provider: Michael Wells Attending physician on admission: Michael Wells Condition: Stable Hospitalist MIPS Heart Failure (Exclusion) Patient has history of Heart Transplant or Left Ventricular Assistive Device?: No IF YES, STOP HERE Heart Failure (Qualifier) Patient has current or prior documentation of LVEF less than or equal to 40%, or mod/servere depressed LVSF?: No IF NO, STOP HERE
[2025-06-25 06:07] LABS: Osmolality, Urine 192 mOsmol/kg (.)
[2025-06-26 05:08] LABS: Osmolality, Serum 262 mOsmol/kg (280-301)
== END 2025-06-21 18:35 | disposition home or self-care (01) | DRG 640 ==
LOC: ANHED 22:41 → ANH2MED 23:44
PROVIDERS: Nurse Practitioner; Registered Nurse; Student in an Organized Health Care Education/Training Program; Admitting Provider Internal Medicine; Emergency Provider Physician Assistant; PCP Physician Assistant; Visit Provider Internal Medicine
DX: E87.1 Hypo-osmolality and hyponatremia (principal); G93.41 Metabolic encephalopathy; M87.852 Other osteonecrosis, left femur; M87.851 Other osteonecrosis, right femur; R63.1 Polydipsia; R06.6 Hiccough; I10 Essential (primary) hypertension; J44.9 Chronic obstructive pulmonary disease, unspecified; D64.89 Other specified anemias; E78.5 Hyperlipidemia, unspecified; K20.80 Other esophagitis without bleeding; H54.8 Legal blindness, as defined in USA; H40.9 Unspecified glaucoma; F54 Psychological and behavioral factors associated with disorders or diseases classified elsewhere; Z20.822 Contact with and (suspected) exposure to COVID-19; Z87.891 Personal history of nicotine dependence; Z97.4 Presence of external hearing-aid; Z86.0101 Personal history of adenomatous and serrated colon polyps; Z79.82 Long term (current) use of aspirin
CPT/HCPCS: 36415; 70450; 71045; 80048; 80053; 80307; 81001; 82140; 82533; 83930; 83935; 84300; 84443; 85025; 87637; 93005; 94640; 99285; A9270; G0378

== ENCOUNTER 2025-07-26 11:08 | Inpatient (IN) | payer MEDICARE, SELFPAY ==
[2025-07-26] VITALS (12 sets, daily range): BP systolic 100–153; BP diastolic 49–72; PULSE 77–96; RESP 16–22; TEMP 36.7; O2SAT 98–100; BMI 24.0
--- NOTE | 2025-07-26 12:39 | ED.NAVMDI ---
HPI - Nausea/Vomiting/Diarrhea General Chief complaint: Nausea/Vomiting/Diarrhea <Anna Guillen PA-C - Last Filed: 07/28/25 14:10> Stated complaint: lightheaded, n/v <Anna Guillen PA-C - Last Filed: 07/28/25 14:10> Time Seen by Provider: 07/26/25 12:39 <Anna Guillen PA-C - Last Filed: 07/28/25 14:10> Focused HPI: This is a 64 year old male that presents to the ER for nausea and vomiting. Reports lightheadedness. Reports he believes his sodium is low. GENERAL: Chronically ill-appearing, well-nourished, and in no acute distress. HEAD: Normocephalic, atraumatic. CHEST: Clear to auscultation. ?No respiratory distress. HEART: Regular rate and rhythm.? NEURO: ?Alert and oriented x3. Patient screened in triage and initial orders placed.? ?Additional care and disposition to be based upon?diagnostic testing and treatment. <Anna Guillen PA-C - Last Filed: 07/28/25 14:10> History of Present Illness HPI Narrative: Agree with HPI except for the following: Patient does not report nausea and vomiting at this time he does report a pickups which he normally gets when his sodium is low. Denies any other symptoms at this time. <Edward Cherry DO - Last Filed: 07/26/25 21:52> Related Data Home medications: Home Medications ?Medication ?Instructions ?Recorded ?Confirmed ?Last Taken ?Type losartan 50 mg tablet 50 mg PO DAILY 03/02/21 07/26/25 07/26/25 History montelukast 10 mg tablet 10 mg PO HS 03/02/21 07/26/25 07/25/25 History pravastatin 80 mg tablet 80 mg PO DAILY 03/02/21 07/26/25 07/26/25 History cholecalciferol (vitamin D3) 25 25 mcg PO DAILY 03/29/21 07/26/25 07/26/25 History mcg (1,000 unit) capsule (Vitamin D3) cyanocobalamin (vitamin B-12) 100 2,000 mcg PO DAILY 03/29/21 07/26/25 07/26/25 History mcg tablet dorzolamide 22.3 mg-timolol 6.8 1 drp LEFT EYE TID 06/29/24 07/26/25 07/26/25 History mg/mL eye drops budesonide-formoterol HFA 80 2 puff inhalation Q12H 12/26/24 07/26/25 07/25/25 History mcg-4.5 mcg/actuation aerosol inhaler gabapentin 300 mg capsule 300 mg PO DAILY 12/26/24 07/26/25 07/26/25 History aspirin 81 mg tablet,delayed 81 mg PO DAILY 03/25/25 07/26/25 07/26/25 History release (Adult Aspirin Regimen) baclofen 5 mg tablet 5 mg PO BID 04/24/25 07/26/25 06/19/25 History <Anna Guillen PA-C - Last Filed: 07/28/25 14:10> Allergies/Adverse reactions: Allergies Allergy/AdvReac Type Severity Reaction Status Date / Time No Known Allergies Allergy Verified 07/26/25 16:56 <Anna Guillen PA-C - Last Filed: 07/28/25 14:10> Review of Systems Review of Systems: Gen.: Denies fevers or chills Eyes: Denies eye pain or visual change ENT: Denies congestion Respiratory: Denies shortness of breath or cough CV: Denies chest pain or palpitations GI: Denies abdominal pain nausea, emesis or diarrhea denies burning, urgency, frequency or hematuria Musculoskeletal: Denies back pain or muscle pain Neuro: Denies numbness, tingling, weakness or focal weakness Skin: Denies rash Except as documented, all other systems reviewed and negative <Edward Cherry DO - Last Filed: 07/26/25 21:52> [facility] Past Medical History Medical History: Medical History (Updated 07/27/25 @ 00:20 by Salud Ramey APRN) Asthma-COPD overlap syndrome Wears hearing aid in both ears Adenomatous colon polyp Hiatal hernia Other osteonecrosis, left femur Other osteonecrosis, right femur Psychogenic polydipsia Erosive esophagitis Anemia of chronic disease Chronic hiccups Hyponatremia Tobacco abuse Normocytic anemia Glaucoma Legally blind. Hyperlipidemia Hypertension <Anna Guillen PA-C - Last Filed: 07/28/25 14:10> Surgical History Surgical History: Surgical History History of enucleation of eye Right, secondary to recurrent infection. <Anna Guillen PA-C - Last Filed: 07/28/25 14:10> Family History Family History: Family History Grandparent Acute myocardial infarction Mother Acute myocardial infarction Skin cancer Father Acute myocardial infarction Sibling Cancer <Anna Guillen PA-C - Last Filed: 07/28/25 14:10> Social History Social History: Social History Social History: Surrogate decision maker: Svitlana Hines, . Code status: Full code. Smoking packs per day: 1.5 Smoking cigarettes per day: 30.0 Years smoked: 50 Smoking pack-years: 75.00 Smoking status: Former smoker Tobacco type: cigarettes Second hand tobacco smoke exposure: No Smoking end date: 05/21/20 Alcohol intake: former Substance use: never Substance use type: does not use Do You Feel Safe in your Home?: Yes Lack of Transportation: No Lack of Food: Never True Current Housing: I Have Housing Concerned About Future Housing: No Difficulty Paying Gas/Electric Bills: No Difficulty Paying for Meds: No Currently Unemployed: No Education: High School Diploma/GED Difficulty w/ Childcare or Family Care: No Living arrangements: with family Additional living arrangements comments: The patient lives with his of 43 years in [place]. He and his had 4 children 1 of which at . His remaining children are healthy. 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 Spiritual care concerns: No <Anna Guillen PA-C - Last Filed: 07/28/25 14:10> Exam Narrative: APPEARANCE: Having active hiccups. No acute distress, nontoxic, resting in bed EYES: Bilateral blindness HEENT: Normocephalic, atraumatic, OMM RESPIRATORY: No respiratory distress Clear to auscultation bilaterally with no rhonchi wheezing or rales. CARDIOVASCULAR: Regular rate and rhythm without murmurs rubs or gallops. ABDOMINAL: Soft, nontender, nondistended, no rebound or guarding MUSCULOSKELETAl: Moves all extremities. No clubbing, cyanosis or edema. NEURO: Awake and alert. Following commands, speech normal, no focal deficits SKIN:: Warm, dry. No rashes lesions or abrasions PSYCHIATRIC: Normal affect/mood, <Edward Cherry DO - Last Filed: 07/26/25 21:52> Course Vital Signs Vital signs: Vital Signs Temperature 98.1 F 07/26/25 11:13 Pulse Rate 82 07/26/25 11:13 Respiratory Rate 16 07/26/25 11:13 Blood Pressure 128/55 L 07/26/25 11:13 Pulse Oximetry 99 07/26/25 11:13 Oxygen Delivery Room Air 07/26/25 11:13 Temperature 98.1 F 07/27/25 08:00 Pulse Rate 80 07/27/25 16:00 Respiratory Rate 16 07/27/25 08:00 Blood Pressure 113/61 07/27/25 08:00 Pulse Oximetry 96 07/27/25 08:03 Oxygen Delivery Room Air 07/27/25 08:40 <Anna Guillen PA-C - Last Filed: 07/28/25 14:10> Vital Signs Temperature 98.1 F 07/26/25 11:13 Pulse Rate 82 07/26/25 11:13 Respiratory Rate 16 07/26/25 11:13 Blood Pressure 128/55 L 07/26/25 11:13 Pulse Oximetry 99 07/26/25 11:13 Oxygen Delivery Room Air 07/26/25 11:13 Temperature 98.1 F 07/27/25 08:00 Pulse Rate 80 07/27/25 16:00 Respiratory Rate 16 07/27/25 08:00 Blood Pressure 113/61 07/27/25 08:00 Pulse Oximetry 96 07/27/25 08:03 Oxygen Delivery Room Air 07/27/25 08:40 <Edward Cherry DO - Last Filed: 07/26/25 21:52> MDM - Nausea/Vomiting/Diarrhea MDM Narrative Medical decision making narrative: 64-year-old male Presenting for hiccups and concerns for hyponatremia. On initial evaluation patient was in no acute distress afebrile, hemodynamic stable. Differentials include but are not limited to: Electrolyte abnormality, mass, arrhythmia, diarrhea, gastroenteritis, gastritis, dehydration Notable exam findings: Diaphragmatic spasms noted, no abdominal tenderness to palpation Notable lab findings: Hyponatremic to 121. Mild leukocytosis 11.7. UA clear. EKG without concerning findings. Patient will require admission for severe hyponatremia. He was given 30 cc/kg normal saline. He was also given Thorazine for his hiccups. I discussed case with hospitalist who will admit the patient. <Edward Cherry DO - Last Filed: 07/26/25 21:52> Medical Records Attestation: I reviewed the patient's medical records. <Edward Cherry DO - Last Filed: 07/26/25 21:52> Lab Data Attestation: I reviewed the patient's lab results. <Edward Cherry DO - Last Filed: 07/26/25 21:52> Result diagrams: 07/27/25 04:50 07/27/25 04:50 <Anna Guillen PA-C - Last Filed: 07/28/25 14:10> Labs: Lab Results 07/26/25 07/26/25 Range/Units 12:56 13:41 WBC 11.7 H (4.5-10.0) K/mm3 RBC 3.25 L (4.6-6.20) M/mm3 Hgb 9.6 L (14.0-18.0) g/dL Hct 28.4 L (42.0-52.0) % MCV 87.4 (80-100) fl MCH 29.5 (26-34) pg MCHC 33.8 (32-36) g/dl RDW 14.5 (11.5-14.5) % Plt Count 198 (150-375) k/mm3 MPV 10.7 H (7.4-10.4) fl Immature Gran % (Auto) 0.3 (0-0.5) % Neut % (Auto) 85.4 H (45.5-73.1) % Lymph % (Auto) 8.8 L (18.3-44.2) % [place] % (Auto) 5.0 (2.6-8.5) % Eos % (Auto) 0.3 (0-4.4) % Baso % (Auto) 0.2 (0.2-1.2) % Lymph # (Auto) 1.03 (0.9-3.2) K/mm3 [place] # (Auto) 0.6 (0.1-0.6) K/mm3 Eos # (Auto) 0.0 (0-0.3) K/mm3 Baso # (Auto) 0.0 (0.0-0.1) K/mm3 Abs Immat Gran (auto) 0.03 (0.00-0.031) K/mm3 Absolute Neuts (auto) 10.0 H (1.3-6.7) K/mm3 Absolute Nucleated RBC 0.000 (0.0-0.012) K/mm3 Nucleated RBC % 0.0 (0.0-0.2) % Sodium 121 L (137-145) mmol/L Potassium 4.7 (3.4-5.0) mmol/L Chloride 88 L (98-107) mmol/L Carbon Dioxide 23 (22-30) mmol/L Anion Gap 10 (4-12) mmol/L BUN 7 L D (9-20) mg/dL Creatinine 0.68 L (0.7-1.3) mg/dL Estim Creat Clear Calc 89 ml/min Estimated GFR > 60 (59 - ) Glucose 98 (65-110) mg/dL Calcium 9.3 (8.4-10.2) mg/dL Total Bilirubin 0.7 (0.2-1.3) mg/dL AST 40 (17-59) U/L ALT 12 (6-50) U/L Alkaline Phosphatase 53 (38-126) U/L Total Protein 7.6 (6.3-8.2) g/dL Albumin 4.4 (3.5-5.1) g/dL Lipase 66 (23-300) U/L Urine Color Yellow (Yellow) Urine Appearance Clear (Clear) Urine pH 6.5 (5.0-9.0) Ur Specific [place] 1.003 (1.001-1.035) Urine Protein Negative (Negative) mg/dL Urine Glucose (UA) Negative (Negative) mg/dL Urine Ketones 1+ H (Negative) mg/dL Ur Blood (Man) Trace (Negative) Urine Nitrate Negative (Negative) Urine Bilirubin Negative (Negative) Urine Urobilinogen 0.2 (<2.0) mg/dL Add Ur Microanalysis Reviewed Leukocyte Esterase Rfl Negative (Negative) BENTLEY/UL Urine RBC 0-2 (0-2) /hpf Urine WBC 0-5 (0-3) /hpf Ur Squamous Epith Cells None seen (Few) /hpf Urine Bacteria None seen /hpf Urine Casts 0-2 <Anna Guillen PA-C - Last Filed: 07/28/25 14:10> Lab Results 07/26/25 07/26/25 Range/Units 12:56 13:41 WBC 11.7 H (4.5-10.0) K/mm3 RBC 3.25 L (4.6-6.20) M/mm3 Hgb 9.6 L (14.0-18.0) g/dL Hct 28.4 L (42.0-52.0) % MCV 87.4 (80-100) fl MCH 29.5 (26-34) pg MCHC 33.8 (32-36) g/dl RDW 14.5 (11.5-14.5) % Plt Count 198 (150-375) k/mm3 MPV 10.7 H (7.4-10.4) fl Immature Gran % (Auto) 0.3 (0-0.5) % Neut % (Auto) 85.4 H (45.5-73.1) % Lymph % (Auto) 8.8 L (18.3-44.2) % [place] % (Auto) 5.0 (2.6-8.5) % Eos % (Auto) 0.3 (0-4.4) % Baso % (Auto) 0.2 (0.2-1.2) % Lymph # (Auto) 1.03 (0.9-3.2) K/mm3 [place] # (Auto) 0.6 (0.1-0.6) K/mm3 Eos # (Auto) 0.0 (0-0.3) K/mm3 Baso # (Auto) 0.0 (0.0-0.1) K/mm3 Abs Immat Gran (auto) 0.03 (0.00-0.031) K/mm3 Absolute Neuts (auto) 10.0 H (1.3-6.7) K/mm3 Absolute Nucleated RBC 0.000 (0.0-0.012) K/mm3 Nucleated RBC % 0.0 (0.0-0.2) % Sodium 121 L (137-145) mmol/L Potassium 4.7 (3.4-5.0) mmol/L Chloride 88 L (98-107) mmol/L Carbon Dioxide 23 (22-30) mmol/L Anion Gap 10 (4-12) mmol/L BUN 7 L D (9-20) mg/dL Creatinine 0.68 L (0.7-1.3) mg/dL Estim Creat Clear Calc 89 ml/min Estimated GFR > 60 (59 - ) Glucose 98 (65-110) mg/dL Calcium 9.3 (8.4-10.2) mg/dL Total Bilirubin 0.7 (0.2-1.3) mg/dL AST 40 (17-59) U/L ALT 12 (6-50) U/L Alkaline Phosphatase 53 (38-126) U/L Total Protein 7.6 (6.3-8.2) g/dL Albumin 4.4 (3.5-5.1) g/dL Lipase 66 (23-300) U/L Urine Color Yellow (Yellow) Urine Appearance Clear (Clear) Urine pH 6.5 (5.0-9.0) Ur Specific [place] 1.003 (1.001-1.035) Urine Protein Negative (Negative) mg/dL Urine Glucose (UA) Negative (Negative) mg/dL Urine Ketones 1+ H (Negative) mg/dL Ur Blood (Man) Trace (Negative) Urine Nitrate Negative (Negative) Urine Bilirubin Negative (Negative) Urine Urobilinogen 0.2 (<2.0) mg/dL Add Ur Microanalysis Reviewed Leukocyte Esterase Rfl Negative (Negative) BENTLEY/UL Urine RBC 0-2 (0-2) /hpf Urine WBC 0-5 (0-3) /hpf Ur Squamous Epith Cells None seen (Few) /hpf Urine Bacteria None seen /hpf Urine Casts 0-2 <Edward Cherry DO - Last Filed: 07/26/25 21:52> Discharge Plan Discharge Clinical Impression: Hiccup, Hyponatremia <Anna Guillen PA-C - Last Filed: 07/28/25 14:10> Patient Disposition: Still a Patient <GONZALO Meeks Last Filed: 07/28/25 14:10> Condition: Stable <Anna Guillen PA-C - Last Filed: 07/28/25 14:10>
[2025-07-26 13:04] LABS: Hematocrit 28.4 % (42.0-52.0); Hemoglobin 9.6 g/dL (14.0-18.0); Immature Granulocyte Percent A 0.3 % (0-0.5); Lymphocytes Absolute Auto 1.03 K/mm3 (0.9-3.2); Mean Corpuscular HGB Conc 33.8 g/dl (32-36); Mean Corpuscular Hemoglobin 29.5 pg (26-34); Mean Corpuscular Volume 87.4 fl (80-100); Nucleated Red Blood Cells Absolute Auto 0.000 K/mm3 (0.0-0.012); Nucleated Red Blood Cells Perc 0.0 % (0.0-0.2); Platelet Count Result 198 k/mm3 (150-375); Red Blood Count 3.25 M/mm3 (4.6-6.20); White Blood Count 11.7 K/mm3 (4.5-10.0)
[2025-07-26 13:25] LABS: Alanine Aminotransferase 12 U/L (6-50); Albumin Level 4.4 g/dL (3.5-5.1); Alkaline Phosphatase 53 U/L (38-126); Anion Gap 10 mmol/L (4-12); Aspartate Amino Transferase 40 U/L (17-59); Bilirubin,Total 0.7 mg/dL (0.2-1.3); Blood Urea Nitrogen 7 mg/dL (9-20); Calcium 9.3 mg/dL (8.4-10.2); Carbon Dioxide 23 mmol/L (22-30); Chloride 88 mmol/L (98-107); Estimated CRCL calculation 89 ml/min; Estimated Glomerular Filt Rate > 60; Glucose 98 mg/dL (65-110); Lipase 66 U/L (23-300); Potassium 4.7 mmol/L (3.4-5.0); Sodium 121 mmol/L (137-145); Total Protein 7.6 g/dL (6.3-8.2)
--- NOTE | 2025-07-26 14:12 | ECG_ITS ---
Test Date: 2025-07-26 15:19:14 Measurements Intervals [place] Rate: 82 P: 63 TN: 135 QRS: 33 QRSD: 90 T: 39 QT: 377 QTc: 441 Interpretive Statements SINUS RHYTHM Electronically Signed On 07-26-2025 17:59:31 MUSICAL PERFORMER by Pastor Cruz D.O
[2025-07-26 14:24] LABS: Add Urine Microscopic? YES; Appearance Urine Clear (Clear); Glucose Urine UA Negative (Negative); Leukocyte Esterase Ur Negative LEU/UL (Negative); Need Manual Microscopic Reviewed; Nitrate Urine Negative (Negative); Non Pathogenic Casts 0-2; Specific Grav Ur 1.003 (1.001-1.035)
[2025-07-26] MEDS: SODIUM CHLORIDE 0.9% IV 1,000 ML 999 ML IV CONT ×2 (14:36)
[2025-07-26] MEDS: SODIUM CHLORIDE 0.9% IV 100 ML 999 ML IV CONT (15:08)
--- NOTE | 2025-07-26 16:40 | ADMGEN ---
This patient, Mark Hines, was admitted to Medical Room 250-01. Patient/family oriented to hospital policies and general routines including ID bracelet, bed and alarms, visiting hours, pain management, procedures, bathroom and other care routines, personal items, smoking policy, room service/diet, and visiting hours. Information on how to activate the Rapid Response Team has been discussed. Patient/Family are encouraged to report perceived risks to care and to ask questions if they do not understand what they are told or what they should do.
--- NOTE | 2025-07-26 17:38 | PM.IMHP ---
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 The patient has had chronic hiccups for the past 5 years. He attempts to remedy his hiccups by drinking water to the point he eventually becomes lightheaded and presents to the ED hyponatremic. Patient has been educated multiple times to caution water intake when attempting to get rid of hiccups. Patient further admits his attempts to keep him from drinking so much water as well. Initial vital signs 128/55, HR 82, respirations 16, afebrile and 99% on room air. Lab significant for WBC 11.7, normocytic anemia. Sodium 121, chloride 88, BUN 7, creatinine 0.68. UA negative for signs of infection. ECG with sinus rhythm. QTC 441 Review of Systems Review of Systems: All systems reviewed & are unremarkable except as noted in HPI and below PMFSH Past Medical History Medical History (Updated 07/27/25 @ 00:20 by Salud Ramey APRN) Asthma-COPD overlap syndrome Wears hearing aid in both ears Adenomatous colon polyp Hiatal hernia Other osteonecrosis, left femur Other osteonecrosis, right femur Psychogenic polydipsia Erosive esophagitis Anemia of chronic disease Chronic hiccups Hyponatremia Tobacco abuse Normocytic anemia Glaucoma Legally blind. Hyperlipidemia Hypertension Surgical History Surgical History History of enucleation of eye Right, secondary to recurrent infection. Family History Family History Grandparent Acute myocardial infarction Mother Acute myocardial infarction Skin cancer Father Acute myocardial infarction Sibling Cancer Social History Social History Social History: Surrogate decision maker: Svitlana Hines, . Code status: Full code. Smoking packs per day: 1.5 Smoking cigarettes per day: 30.0 Years smoked: 50 Smoking pack-years: 75.00 Smoking status: Former smoker Tobacco type: cigarettes Second hand tobacco smoke exposure: No Smoking end date: 05/21/20 Alcohol intake: former Substance use: never Substance use type: does not use Do You Feel Safe in your Home?: Yes Lack of Transportation: No Lack of Food: Never True Current Housing: I Have Housing Concerned About Future Housing: No Difficulty Paying Gas/Electric Bills: No Difficulty Paying for Meds: No Currently Unemployed: No Education: High School Diploma/GED Difficulty w/ Childcare or Family Care: No Living arrangements: with family Additional living arrangements comments: The patient lives with his of 43 years in [place]. He and his had 4 children 1 of which at . His remaining children are healthy. 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 Spiritual care concerns: No Meds Home Medications and Allergies Home Medications ?Medication ?Instructions ?Recorded ?Confirmed ?Type losartan 50 mg tablet 50 mg PO DAILY 03/02/21 07/26/25 History montelukast 10 mg tablet 10 mg PO HS 03/02/21 07/26/25 History pravastatin 80 mg tablet 80 mg PO DAILY 03/02/21 07/26/25 History cholecalciferol (vitamin D3) 25 25 mcg PO DAILY 03/29/21 07/26/25 History mcg (1,000 unit) capsule (Vitamin D3) cyanocobalamin (vitamin B-12) 100 2,000 mcg PO DAILY 03/29/21 07/26/25 History mcg tablet albuterol sulfate 90 mcg/actuation 1 inh inhalation QID PRN shortness 05/02/21 07/26/25 Rx aerosol inhaler of breath or wheezing #8.5 grams dorzolamide 22.3 mg-timolol 6.8 1 drp LEFT EYE TID 06/29/24 07/26/25 History mg/mL eye drops budesonide-formoterol HFA 80 2 puff inhalation Q12H 12/26/24 07/26/25 History mcg-4.5 mcg/actuation aerosol inhaler gabapentin 300 mg capsule 300 mg PO DAILY 12/26/24 07/26/25 History chlorpromazine 25 mg tablet 25 mg PO Q6H PRN Hiccups #30 tabs 01/11/25 07/26/25 Rx aspirin 81 mg tablet,delayed 81 mg PO DAILY 03/25/25 07/26/25 History release (Adult Aspirin Regimen) baclofen 5 mg tablet 5 mg PO BID 04/24/25 07/26/25 History Held on 07/26/25. Instructions: Patient no longer taking famotidine 20 mg tablet 20 mg PO Q12HR #60 tabs 06/15/25 07/26/25 Rx Allergies Allergy/AdvReac Type Severity Reaction Status Date / Time No Known Allergies Allergy Verified 07/26/25 16:56 Vital Signs Vital Signs - 24 hr 07/26/25 11:13 07/26/25 13:12 07/26/25 13:39 Temperature 98.1 F Pulse Rate 82 78 77 Respiratory Rate 16 16 Blood Pressure 128/55 L 134/66 135/60 Pulse Oximetry 99 100 Oxygen Delivery Room Air 07/26/25 13:42 07/26/25 13:44 07/26/25 15:09 Temperature Pulse Rate 77 79 79 Respiratory Rate 18 Blood Pressure 142/65 H 125/55 L 148/72 H Pulse Oximetry 100 Oxygen Delivery 07/26/25 15:16 07/26/25 15:46 07/26/25 16:02 Temperature Pulse Rate 81 96 91 Respiratory Rate 22 H 21 H 22 H Blood Pressure 153/64 H 139/66 131/54 L Pulse Oximetry 100 100 Oxygen Delivery Exam Narrative: GENERAL: non-toxic appearing, in no acute distress. HEAD: Normocephalic, atraumatic. EYES: Bilateral glaucoma resulting in blindness EARS: Bilateral hearing aids intact; hard of hearing NOSE: Normal no drainage. THROAT: Pharynx clear, no exudate. NECK: Trachea midline. No adenopathy, no masses. RESPIRATORY: Airway patent, respirations nonlabored. CTA. CARDIOVASCULAR: Regular rate and rhythm GASTROINTESTINAL: Abdomen is soft and nontender. No organomegaly. Bowel sounds normal in all quadrants. GENITOURINARY: Defer MUSCULOSKELETAL: Moves all extremities. No gross deformities. SKIN: Warm, dry, normal color. NEURO: A&O X4. Speech clear. Hiccups during exam PSYCHIATRIC: Normal interaction H&P: Results Labs Labs: Short CBC 07/26/25 Range/Units 12:56 WBC 11.7 H (4.5-10.0) K/mm3 Hgb 9.6 L (14.0-18.0) g/dL Hct 28.4 L (42.0-52.0) % Plt Count 198 (150-375) k/mm3 BMP 07/26/25 12:56 Sodium 121 L Potassium 4.7 Chloride 88 L Carbon Dioxide 23 BUN 7 L D Creatinine 0.68 L Glucose 98 Calcium 9.3 Liver Function 07/26/25 Range/Units 12:56 Total Bilirubin 0.7 (0.2-1.3) mg/dL AST 40 (17-59) U/L ALT 12 (6-50) U/L Alkaline Phosphatase 53 (38-126) U/L Albumin 4.4 (3.5-5.1) g/dL Urine 07/26/25 Range/Units 13:41 Urine Color Yellow (Yellow) Urine Appearance Clear (Clear) Urine pH 6.5 (5.0-9.0) Ur Specific [place] 1.003 (1.001-1.035) Urine Protein Negative (Negative) mg/dL Urine Glucose (UA) Negative (Negative) mg/dL Assessment and Plan Assessment and plan (1) Hyponatremia: Code(s): E87.1 - Hypo-osmolality and hyponatremia Status: Acute Assessment and Plan: Patient has had chronic hiccups for the past 5 years. He attempts to remedy his hiccups by drinking water to the point he eventually becomes lightheaded and presents to the ED hyponatremic despite multiple attempts at education and fluid restrictions. Sodium 121 on admit. Was as low as 116 in May. Patient states medications do not really help him anymore. -3 L NS bolus in ED--> sodium improved to 129 -trend BMP, using caution not to over correct -1500 mL fluid restriction -continue to educate patient on dangers of polydipsia -Thorazine 25 q.6 p.r.n. for hiccups (2) Hiccup: Code(s): R06.6 - Hiccough Status: Chronic Assessment and Plan: Patient has had ongoing hiccups for the past 5 years. -continue Thorazine p.r.n. -continue gabapentin 300 (3) Hypertension: Qualifiers: Hypertension type: primary hypertension Qualified Code(s): I10 - Essential (primary) hypertension Code(s): I10 - Essential (primary) hypertension Status: Chronic Assessment and Plan: Hemodynamically stable -continue Cozaar (4) Hyperlipidemia: Qualifiers: Hyperlipidemia type: unspecified Qualified Code(s): E78.5 - Hyperlipidemia, unspecified Code(s): E78.5 - Hyperlipidemia, unspecified Status: Chronic Assessment and Plan: Continue pravastatin 80 mg daily (5) Asthma-COPD overlap syndrome: Code(s): J44.9 - Chronic obstructive pulmonary disease, unspecified Status: Acute Assessment and Plan: Not in acute exacerbation. Patient denies dyspnea -continue singular,budesonide-formoterol Plan Diet: Regular GI prophylaxis: NA DVT prophylaxis: SCDs lines/drains: PIV Fluids: 3 L NS bolus Code status: Full Quality VTE Prophylaxis VTE prophylaxis: mechanical ordered Hospitalist MIPS Advance Care Plan I have confirmed that the patient's Advanced Care Plan is present, code status is documented, or surrogate decision maker is listed in patient medical record.: Yes Medication Reconciliation I have utilized all available resources to obtain, update and review the patients current medications (includes all prescriptions, OTC, herbals, cannabis, and nutritional supplements).: Yes
[2025-07-26 18:50] LABS: Anion Gap 10 mmol/L (4-12); Blood Urea Nitrogen 7 mg/dL (9-20); Calcium 9.0 mg/dL (8.4-10.2); Carbon Dioxide 19 mmol/L (22-30); Chloride 100 mmol/L (98-107); Estimated CRCL calculation 89 ml/min; Estimated Glomerular Filt Rate > 60; Glucose 155 mg/dL (65-110); Potassium 4.4 mmol/L (3.4-5.0); Sodium 129 mmol/L (137-145)
--- OUTSIDE RECORDS SUMMARY | 2025-07-26 19:01 | XMS_ITS | Encounter Summary ---
Author Organization [facility] Healthcare Address [address] [place] [address] Care Team Providers Care Oracle Brm Developer Name Role Phone Nuris Berger Primary Care Provider [phone] Jonatan Stokes MD Unavailable [phone] Irma Bajwa MD Unavailable [phone] Ayla Dugan LPN Unavailable [phone] Brooke Plaza MA Unavailable Unavailable Encounter Details Date Type Department Care Team (Late st Contact Info) Description 03/26/2025 Orders Only [facility] Information Management [address] [place] [id number] Scanning, Provider Social History Tobacco Use Types Packs/Day Years Used Date Smoking Tobacco: Former Cigarettes 0.8 40 0 09/1981 - 09/2021 Smokeless Tobacco: Never Alcohol Use Standard Drinks/Week Comments Yes 0 (1 standard drink = 0.6 oz pur e alcohol) social [facility] Utilities Answer Date Recorded In the past 12 months has [employer] electric, gas, oil, or water company threatened [...] week 12/03/2023 How often do you attend [facility] or buddhism services? 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 Gender Identity Not on file Sexual Orientation [...] on filedocumented in this encounter Care Teams Oracle Brm Developer Relationship Specialty Start Date End Date Nuris Berger PA [address] [place] [address] PCP - General Internal Medicine 12/28/18 Jonatan Stokes MD [address] [place] [address] Consulting Physician Otolaryngology 03/27/20 Irma Bajwa MD [address] [facility] [place] [address] Consulting Physician Neurology 05/07/22 Ayla Dugan LPN [address] [place] [address] [address] [place] [address] Wool Hat Hydraulicker 03/30/25 03/30/25 Brooke Plaza MA [address] [place] [address] [employer] Care Cable Maker 06/18/25 06/19/25 documented as of this encounter
--- OUTSIDE RECORDS SUMMARY | 2025-07-26 19:01 | XMS_ITS | Clinical Summary ---
Author Organization [facility] Address [facility]ly [facility] [place] [address] Care Team Providers Care Healthcare Associate Name Role Phone Nuris Berger Primary [...] Comments Blood Pressure 120/62 09/04/2021 8:52 AM CLERK TO JUSTICE Pulse 82 09/04/2021 8:52 AM CLERK TO JUSTICE Temperature 36.3 C (97.4 F) 09/04/2021 8:52 AM CLERK TO JUSTICE Respiratory Rate 16 09/04/2021 8:52 AM CLERK TO JUSTICE Oxygen Saturation 97% 09/04/2021 8:52 AM CLERK TO JUSTICE Inhaled Oxygen Concentration - - Weight 64.4 kg (142 lb) 09/04/2021 8:52 AM CLERK TO JUSTICE Height 172.7 cm (5' 8) 09/04/2021 8:52 AM CLERK TO JUSTICE Body Mass Index 21.59 09/04/2021 8:52 AM CLERK TO JUSTICE Plan of Treatment Health Maintenance Due Date Last Done Comments Colorectal Cancer Screening Colonoscopy (10 Years) 1961 Annual Physical 1964 Hepatitis C 1979 DTaP, Tdap and Td Vaccines ( 1 - Tdap) 1980 Pneumococcal Vaccine: 50+ Years (1 of 2 - PCV) 1980 Zoster Vaccines (1 of 2) 2011 COVID-19 Vaccine (3 - 2024-2 6 season) 2025 02/09/2021, 01/05/2021 Influenza Adult (#1) 2025 08/01/2021, 07/29/2020, 07/29/2020 RSV Immunization or 60+ Years (1 - 1-dose 75+ series) 2036 Hepatitis A Vaccines Aged Out No long er eligible based on patient's age to complete this topic Meningococcal B Vaccine Aged Out No l onger eligible based on patient's age to complete this topic Meningococcal Vaccine Aged Out No con brittni eligible based on patient's age to complete this topic RSV Immunizations Under 20 Months Aged Out No longer eligible b ased on patient's age to complete this topic Insurance [employer]ETNA MEDICARE Care Teams Healthcare Associate Relationship Specialty Start Date End Date Nuris Berger PA [address] [place] [address] PCP - General PHYSICIAN METAL LEAF LAYER 06/09/21
--- OUTSIDE RECORDS SUMMARY | 2025-07-26 19:01 | XMS_ITS | Clinical Summary ---
Author Organization [facility] [address] [facility] Address [address] [place] [address] Care Team Providers Care Cell Plasterer Name Role Phone Nuris Berger Primary Care Provider [phone] Jonatan Stokes MD Unavailable [phone] Irma Bajwa MD Unavailable [phone] Allergies Active Allergy Reactions Criticality Noted Date [...] mg total) by mouth daily 06/20/20 24 Active tobramycin-dexA METHasone (TOBRADEX) ophthalmic solution INSTILL [...] obstructive pulmonary disease, unspecified COPD type ([facility]) INHALE 2 PUFFS BY MOUTH TWICE DAILY. RINSE MOUTH WITH WATER AFTER USE. DO NOT SWALLOW 30.6 g 1 09/18/20 24 Active pravastatin (PRAVACHOL) 80 mg tablet Take 1 tablet (80 mg total) by mouth daily 90 tablet 1 11/20/19 25 Active chlorproMAZINE (THORAZINE) 25 mg tablet [...] TIMES DAILY 300 capsule 05/23/20 25 Active metoclopramide (REGLAN) 10 mg tablet TAKE 1 TABLET BY MOUTH FOUR TIMES DAILY 120 tablet 1 06/22/20 25 Active famotidine (PEPCID) 20 mg tablet Take 1 tablet (20 mg total) by mouth every 12 (twelve) hours 06/16/20 25 Active baclofen (LIORESAL) 10 mg tabletIndicatio ns:Low back pain, unspecified back pain laterality, unspecified chronicity, unspecified whether sciatica present TAKE 1 TABLET(10 MG) BY MOUTH TWICE DAILY 60 tablet 1 06/27/20 Active losartan (COZAAR) 50 mg tablet Take 1 tablet (50 mg total) by mouth daily 07/08/20 Active sodium chloride 1 gram tablet Take 1 tablet (1 g total) by mouth 3 (three) times a day 90 tablet 3 11/20/19 25 025 Discontinued losartan (COZAAR) 50 mg tablet TAKE 1 TABLET(50 MG) BY MOUTH DAILY 90 tablet 1 01/23/20 25 025 Discontinued(Re order) baclofen (LIORESAL) 10 mg tabletIndicatio ns:Low back pain, unspecified back pain laterality, unspecified chronicity, unspecified whether sciatica present TAKE 1 TABLET(10 MG) BY MOUTH TWICE DAILY 60 tablet 1 04/16/20 025 Discontinued Active Problems Patient Care Coordination No te Formatting of this note migh t be different from the original. 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 Continue healthy lifestyle to maintain. Primary hypertension 05/13/2025 Seasonal allergic rhinitis due to pollen 025 Vitamin D deficiency 11/24/2023 Assessment & Plan (11/19/2024 11:45 PM PLASTERER HELPER): Supplement Assessment & Plan (05/20/2024 7:36 PM CDT): Supplement Fatigue 12/12/2022 Assessment & Plan (05/20/2024 7:37 PM CDT): Probably multifactorial. Check labs and followup to re-evaluate Assessment & Plan (11/24/2023 10:35 AM PLASTERER HELPER): Probably multifactorial. Check labs and followup to [...] 01/16/2022 Assessment & Plan (11/19/2024 11:44 PM PLASTERER HELPER): Chronic hiccups for 5+ years Has been [...] to the ER. ER recommended referral to [facility] but patient states he can't go to [...] weeks Assessment & Plan (11/24/2023 10:34 AM PLASTERER HELPER): Patient has persistent chronic hiccups that come [...] monitor Assessment & Plan (08/15/2023 5:01 PM PLASTERER HELPER): Chronic hiccups for years. Has tried multiple interventions along with multiple workups from specialists including Neurology pulmonology and GI. Continue current regimen. Stressed importance of limiting water intake when he has the hiccups spells as this has been leading to hyponatremia requiring hospitalization. Assessment & Plan (08/11/2023 8:45 AM PLASTERER HELPER): Patient with chronic hiccups. Have had difficulty [...] levels. Assessment & Plan (08/15/2022 6:45 PM PLASTERER HELPER): Patient has consulted with most multiple specialists [...] hiccups. Assessment & Plan (08/15/2023 5:02 PM PLASTERER HELPER): Chronic hiccups for years. Has tried multiple interventions along with multiple workups from specialists including Neurology pulmonology and GI. Continue current regimen. Stressed importance of limiting water intake when he has the hiccups spells as this has been leading to hyponatremia requiring hospitalization. Assessment & Plan (08/11/2023 8:46 AM PLASTERER HELPER): Hyponatremia secondary to water intake with chronic [...] 07/14/2019 Assessment & Plan (11/19/2024 11:44 PM PLASTERER HELPER): Continue PPI p.r.n. Assessment & Plan (05/20/2024 7:35 PM CDT): Continue pantoprazole p.r.n. Assessment & Plan (11/24/2023 10:33 AM PLASTERER HELPER): Continue pantoprazole p.r.n. Assessment & Plan (04/08/2023 8:48 PM CDT): Continue PPI p.r.n. Assessment & Plan (12/12/2022 9:43 PM CDT): Insert PPI Assessment & Plan (08/15/2022 6:45 PM PLASTERER HELPER): Continue PPI prn Assessment & Plan (02/09/2021 8:17 PM CDT): Continue PPI Assessment & Plan (07/29/2020 7:33 AM PLASTERER HELPER): Continue PPI Assessment & Plan (03/27/2020 8:01 AM CDT): Dr. Stokes changed him from omeprazole to Pantoprazole for the hiccups. Pt hasn't noted any difference in GERD sxs (still well controlled) or hiccups. Assessment & Plan (09/26/2019 7:38 AM PLASTERER HELPER): Continue PPI Assessment & Plan (07/14/2019 8:46 AM CDT): Discussed GERD at length including anatomy, behavioral changes (raise HOB, meal timings), dietary changes and medication options. Reviewed risks, benefits alternatives, side effects and proper use. Followup if sxs worsen or has hematochezia or hematemeis. Start PPI Chronic obstructive pulmonary disease 06/26/2019 Overview (06/26/2019): Noted on 06/2019 LDCT Assessment & Plan (11/19/2024 11:44 PM PLASTERER HELPER): Patient with allergies and COPD. Continue Singulair albuterol and Symbicort. Follows with Dr. Valdes. Assessment & Plan (05/20/2024 7:35 PM CDT): Continue per Dr. Valdes. Continue with his Symbicort and albuterol inhalers. Low-dose CT will be scheduled for June 16, 2024. Assessment & Plan (11/24/2023 10:33 AM PLASTERER HELPER): COPD. Continue per Dr. Hammond his senior principal process engineer Continue Symbicort Singulair and albuterol p.r.n. Assessment & Plan (04/08/2023 8:48 PM CDT): Encouraged smoking cessation. Continue per Dr. Hammond pulmonology. He is on albuterol Symbicort and Singulair Assessment & Plan (12/12/2022 9:43 PM CDT): Stop smoking. Continue per Pulmonary. Continue Symbicort Singulair and albuterol. Continue monitoring low-dose CTs as instructed Assessment & Plan (08/15/2022 6:44 PM PLASTERER HELPER): Stop smoking. Continue current plan per Pulmonary Assessment & Plan (08/01/2021 9:34 PM PLASTERER HELPER): Continue per Pulmonary Dr. Valdes Assessment & Plan (02/09/2021 8:15 PM CDT): Stop smoking. Continue per Dr. Valdes Assessment & Plan (07/29/2020 7:32 AM PLASTERER HELPER): Continue per Pulm Assessment & Plan (03/27/2020 8:00 AM CDT): Stop smoking. He declines starting inhalers or referral to Pulmonary Assessment & Plan (09/26/2019 10:27 PM PLASTERER HELPER): This is a significant, separately identifiable problem [...] order Assessment & Plan (07/29/2020 7:33 AM PLASTERER HELPER): Needs to repeat ---Dr. Valdes has already ordered Assessment & Plan (03/27/2020 8:00 AM CDT): 06/2019 LDCT Several 2-3mm nodules, probable benign LungRADs 2 --- repeat 06/2020 Assessment & Plan (09/26/2019 10:26 PM PLASTERER HELPER): 06/2019 LDCT Several 2-3mm nodules, probable benign LungRADs 2 --- repeat 06/2020 Hyperplastic rectal polyp 05/20/2019 Overview (05/20/2019): Colonoscopy 01/29/2012 at [facility]--->2021 Assessment & Plan (05/28/2019 7:33 PM CDT): Recvd colonoscopy and due to repeat in 2021 Hiatal hernia 05/20/2019 Mixed hyperlipidemia 05/20/2019 Assessment & Plan (11/19/2024 11:45 PM PLASTERER HELPER): Encouraged patient to follow low fat/low chol [...] 80 Assessment & Plan (11/24/2023 10:34 AM PLASTERER HELPER): Encouraged patient to follow low fat/low chol diet like the Mediterranean diet. Increase good fats in the diet. Increase exercise. Monitor labs as needed. Continue pravastatin 80 Assessment & Plan (08/15/2023 5:03 PM PLASTERER HELPER): Encouraged patient to follow low fat/low chol [...] Zetia Assessment & Plan (08/01/2021 9:33 PM PLASTERER HELPER): Encouraged patient to follow fat/low chol diet [...] statin Assessment & Plan (07/29/2020 7:34 AM PLASTERER HELPER): Encouraged patient to follow fat/low chol diet like the Mediterranean diet. Increase good fats in the diet. Increase exercise. Monitor labs as needed. Assessment & Plan (03/27/2020 8:02 AM CDT): Encouraged patient to continue low fat/low chol diet. Continue exercise. Increase good fats in the diet. Monitor labs as needed. Stable with zetia and pravastatin Assessment & Plan (09/26/2019 7:39 AM PLASTERER HELPER): Encouraged patient to continue low fat/low chol [...] change Assessment & Plan (08/15/2023 5:03 PM PLASTERER HELPER): Patient is legally blind. Continue with Ophthalmology Assessment & Plan (04/08/2023 8:47 PM CDT): No change Assessment & Plan (03/27/2020 8:02 AM CDT): No change Assessment & Plan (09/26/2019 7:39 AM PLASTERER HELPER): No change Assessment & Plan (05/28/2019 7:35 PM CDT): No change Cigarette smoker 05/20/2019 Assessment & Plan (08/11/2023 8:45 AM PLASTERER HELPER): Encouraged smoking cessation. Discussed 3 minutes. Reviewed options for assistance with cessation. Reviewed terminal operations supervisor sequela associated with smoking. Pt declines assistance at this time but may contact the office at anytime for further help as they desire. Assessment & Plan (04/08/2023 8:47 PM CDT): Encouraged smoking cessation. Discussed 3 minutes. Reviewed options for assistance with cessation. Reviewed halfway sequela associated with smoking. Pt declines assistance at this time but may contact the office at anytime for further help as they desire. Low-dose CT will be due in May. It is already scheduled Assessment & Plan (12/12/2022 9:42 PM CDT): Encouraged smoking cessation. Discussed 3 minutes. Reviewed options for assistance with cessation. Reviewed terminal operations supervisor sequela associated with smoking. Pt declines assistance at this time but may contact the office at anytime for further help as they desire. Assessment & Plan (08/15/2022 6:44 PM PLASTERER HELPER): Encouraged smoking cessation. Discussed 3 minutes. Reviewed options for assistance with cessation. Reviewed terminal operations supervisor sequela associated with smoking. Pt declines assistance at this time but may contact the office at anytime for further help as they desire. Assessment & Plan (05/09/2022 8:19 PM CDT): Encouraged smoking cessation. Discussed 3 minutes. Reviewed options for assistance with cessation. Reviewed terminal operations supervisor sequela associated with smoking. Pt declines assistance at this time but may contact the office at anytime for further help as they desire. Assessment & Plan (08/01/2021 9:33 PM PLASTERER HELPER): Encouraged smoking cessation. Discussed 3 minutes. Reviewed options for assistance with cessation. Reviewed terminal operations supervisor sequela associated with smoking. Pt declines assistance at this time but may contact the office at anytime for further help as they desire. Assessment & Plan (05/17/2021 11:41 PM CDT): Encouraged smoking cessation. Discussed 3 minutes. Reviewed options for assistance with cessation. Reviewed terminal operations supervisor sequela associated with smoking. Pt declines assistance at this time but may contact the office at anytime for further help as they desire. Assessment & Plan (03/12/2021 12:31 PM CDT): Encouraged smoking cessation. Discussed 3 minutes. Reviewed options for assistance with cessation. Reviewed halfway sequela associated with smoking. He is slowing down. Offered assistance. May call if decides he wants help Assessment & Plan (07/29/2020 7:34 AM PLASTERER HELPER): Encouraged smoking cessation. Discussed 3 minutes. Reviewed options for assistance with cessation. Reviewed halfway sequela associated with smoking. Pt declines assistance at this time but may contact the office at anytime for further help as they desire. Assessment & Plan (03/27/2020 8:02 AM CDT): Encouraged smoking cessation. Discussed 3 minutes. Reviewed options for assistance with cessation. Reviewed terminal operations supervisor sequela associated with smoking. Pt declines assistance at this time but may contact the office at anytime for further help as they desire. Assessment & Plan (09/26/2019 7:39 AM PLASTERER HELPER): Encouraged smoking cessation. Discussed 3 minutes. Reviewed options for assistance with cessation. Reviewed terminal operations supervisor sequela associated with smoking. Pt declines assistance at this time but may contact the office at anytime for further help as they desire. Assessment & Plan (07/14/2019 7:05 PM CDT): Encouraged smoking cessation. Discussed 3 minutes. Reviewed options for assistance with cessation. Reviewed terminal operations supervisor sequela associated with smoking. Pt declines assistance [...] 05/20/2019 Assessment & Plan (11/19/2024 11:45 PM PLASTERER HELPER): Pre-diabetes/hyperglycemia is a precursor to Dm. Stressed [...] diabetes. Assessment & Plan (11/24/2023 10:34 AM PLASTERER HELPER): Pre-diabetes/hyperglycemia is a precursor to Dm. Stressed importance of working on diet (decrease your simple sugars and one carbohydrate with each meal) and increase you exercise to achieve weight loss and this will help prevent you from progressing to diabetes. Assessment & Plan (08/15/2023 5:03 PM PLASTERER HELPER): Pre-diabetes/hyperglycemia is a precursor to Dm. Stressed [...] diabetes. Assessment & Plan (08/01/2021 9:33 PM PLASTERER HELPER): Pre-diabetes/hyperglycemia is a precursor to Dm. Stressed [...] diabetes. Assessment & Plan (07/29/2020 7:34 AM PLASTERER HELPER): Pre-diabetes is a precursor to Dm. Stressed [...] labs Assessment & Plan (09/26/2019 10:27 PM PLASTERER HELPER): This is a significant, separately identifiable problem [...] Noted Date Diagnosed Date Resolved Date BMI 24.0-24.9, adult 05/01/2025 025 Assessment & Plan (05/01/2025 9:07 AM CDT): Weight/BMI is in healthy range. Continue healthy lifestyle to maintain. BMI 25.0-25.9,adult 01/31/2025 05/01/20 25 Assessment & Plan (01/31/2025 8:25 AM CDT): Weight/BMI is in healthy range. Continue healthy lifestyle to maintain. Annual physical exam 11/19/2024 025 Assessment & Plan (11/19/2024 11:45 PM PLASTERER HELPER): Encouraged healthy lifestyle, good nutrition and exercise. Encouraged Calcium and Vitamin D and weight bearing exercise for bone health. Reviewed immunizations Reviewed age appropirate screenings. BMI 23.0-23.9, adult 06/20/2024 025 Assessment & Plan (10/30/2024 8:57 AM PLASTERER HELPER): Weight/BMI is in healthy range. Continue healthy [...] 024 Assessment & Plan (11/24/2023 10:35 AM PLASTERER HELPER): Encouraged healthy lifestyle, good nutrition and exercise. Encouraged Calcium and Vitamin D and weight bearing exercise for bone health. Reviewed immunizations Reviewed age appropirate screenings. Need for influenza vaccination 08/15/2023 11/24/2023 Assessment & Plan (08/15/2023 5:04 PM PLASTERER HELPER): Flu vaccine updated in the office today BMI 22.0-22.9, adult 07/22/2023 024 Assessment & Plan (08/11/2023 8:12 AM PLASTERER HELPER): Weight/BMI is in healthy range. Continue healthy [...] 04/03/2023 Assessment & Plan (08/15/2022 6:45 PM PLASTERER HELPER): Flu updated in the office today BMI [...] test outpatient. Was referred to an outside electronic scale assembler and tester. Encouraged to consider seeing a [facility] Medical group of cardiologists so [...] 022 Assessment & Plan (08/01/2021 7:28 AM PLASTERER HELPER): Weight/BMI is in healthy range. Continue healthy lifestyle to maintain. Medicare annual wellness visit, subsequent 08/01/2021 08/15/2022 Assessment & Plan (08/01/2021 9:34 PM PLASTERER HELPER): Encouraged healthy lifestyle, good nutrition and exercise. Encouraged Calcium and Vitamin D and weight bearing exercise for bone health. Reviewed immunizations. Reviewed age appropirate screenings. Medicare Wellness Documentation is completed within the chart Fatigue 05/17/2021 05/02/2022 Assessment & Plan (08/01/2021 9:34 PM PLASTERER HELPER): Probably multifactorial. Check labs and followup to [...] 024 Assessment & Plan (11/24/2023 10:34 AM PLASTERER HELPER): Weight/BMI is in healthy range. Continue healthy [...] 05/02/2022 Assessment & Plan (07/29/2020 7:34 AM PLASTERER HELPER): Probably multifactorial. Check labs and followup to re-evaluate Need for immunization against influenza 07/29/2020 11/24/2020 Assessment & Plan (07/29/2020 7:34 AM PLASTERER HELPER): Updated in office today BMI 22.0-22.9, adult 03/27/2020 024 Assessment & Plan (05/20/2024 7:37 PM CDT): Weight/BMI is in healthy range. Continue healthy lifestyle to maintain. Assessment & Plan (07/29/2020 7:34 AM PLASTERER HELPER): Weight/BMI is in healthy range. Continue healthy [...] 09/26/2019 Assessment & Plan (09/26/2019 7:39 AM PLASTERER HELPER): Weight/BMI is in healthy range. Continue healthy lifestyle to maintain. Annual physical exam 09/26/2019 Assessment & Plan (09/26/2019 7:40 AM PLASTERER HELPER): Encouraged healthy lifestyle, good nutrition and exercise. Encouraged Calcium and Vitamin D and weight bearing exercise for bone health. Reviewed immunizations Reviewed age appropirate screenings. Influenza vaccine refused 09/26/2019 Assessment & Plan (09/26/2019 7:40 AM PLASTERER HELPER): Encouraged vaccine. Reviewed risks/ benefits. Patient refuses and accepts risks. Esophagitis determined by endoscopy 05/20/2019 05/02/2022 Gastritis 05/20/2019 05/02/2022 Essential (primary) hypertension 05/20/2019 05/20/2024 Assessment & Plan (11/24/2023 10:34 AM PLASTERER HELPER): Bp is stable/in acceptable range for any co-morbidities. Encouraged to limit sodium intake and exercise for weight control. Continue losartan 50 Assessment & Plan (08/15/2023 5:04 PM PLASTERER HELPER): Bp is stable/in acceptable range for any co-morbidities. Encouraged to limit sodium intake and exercise for weight control. Continue per Dr. Curtis Assessment & Plan (08/11/2023 8:45 AM PLASTERER HELPER): Bp is stable/in acceptable range for any [...] losartan Assessment & Plan (08/15/2022 6:44 PM PLASTERER HELPER): Bp is stable/in acceptable range for any [...] 50 Assessment & Plan (08/01/2021 9:33 PM PLASTERER HELPER): Bp is stable/in acceptable range for any [...] Losartan/HCTZ Assessment & Plan (07/29/2020 7:33 AM PLASTERER HELPER): Bp is stable/in acceptable range for any co-morbidities. Encouraged to limit sodium intake and exercise for weight control. Losartan and HCTZ Assessment & Plan (03/27/2020 8:00 AM CDT): Bp is stable/in acceptable range for any co-morbidities. Encouraged to limit sodium intake and exercise for weight control. Continue losartan/HCTZ Assessment & Plan (09/26/2019 7:38 AM PLASTERER HELPER): Bp is stable/in acceptable range for any [...] 01/21/2022 Assessment & Plan (08/01/2021 9:34 PM PLASTERER HELPER): Persistent hiccups. Has consulted with multiple providers [...] omeprazole Assessment & Plan (07/29/2020 7:32 AM PLASTERER HELPER): Continue per ENT/Pulm. He is responding to BID omeprazole. Will monitor Assessment & Plan (03/27/2020 7:59 AM CDT): Dr. Stokes started him on Pantoprazole. He hasn't noted much difference. Needs to followup to complete workup. Encouraged patient to call and make appointment. Assessment & Plan (09/26/2019 10:26 PM PLASTERER HELPER): This is a significant, separately identifiable problem that was evaluated and managed on the same day as the wellness exam Less frequent than in the past. Continue the PPI and monitor Rx sent to pharmacy. Assessment & Plan (08/24/2019 9:04 AM PLASTERER HELPER): Improving with the PPI. Continue PPI and [...] 2018 Assessment & Plan (08/24/2019 9:04 AM PLASTERER HELPER): Encouraged vaccine. Reviewed risks/ benefits. Patient refuses [...] Encounters Date Type Department Care Team Description 06/26/2025 9:30 AM CDT Office Visit [address] [place] [phone] Nuris Berger PA Hyponatremia (Primary Dx); Psychogenic polydipsia; Chronic hiccups; BMI 23.0-23.9, adult; Generalized body aches; Legally blind; Flu vaccine need 06/21/[address] [address] Nuris Berger PA 06/20/2025 [facility] [address] [address] [place] 06/19/2025 [facility] [address] [address] [place] 06/18/2025 [facility] [address] [address] [place] 06/01/[address] [phone] Nuris Berger PA 05/30/2025 [facility] [address] [address] Hilton James LPN 05/29/2025 Orders Only [facility] Health Information Management [address] [place] [id number] Scanning, Provider 05/02/2025 Results Follow-Up [address] [phone] Nuris Berger PA Comprehensive metabolic panel, CBC with auto differential, TSH, Additional followed-up results: 2 05/01/2025 9:00 AM CDT Office Visit [facility] [address] [facility] [address] [place] [address] Nuris Berger PA Medicare annual wellness visit, subsequent (Primary Dx); Chronic hiccups; Hyponatremia; Legally blind; Primary hypertension; Chronic obstructive pulmonary disease, unspecified COPD type (HCC); Seasonal allergic rhinitis due to pollen; Gastroesophageal reflux disease with esophagitis without hemorrhage; Mixed hyperlipidemia; Fatigue, unspecified type; Prostate cancer screening; BMI 24.0-24.9, adult from Last 3 Months Immunizations Immunization Administration Dates Next Due Influenza, Quadrivalent, Spl it, Preservative Free, Intramuscular 07/22/2023,07/23/2022,08/01/2021,07/29 Influenza, Trivalent, Preser vative Free, Intramuscular 06/26/2025,06/20/2024 Influenza, Unspecified 09/20/2024(Deferr ed: Patient Refused),10/21/2021(Deferred: Patient Refused),08/24/2019(Deferred: Patient Refused),07/14/2019(Deferred: Patient Refused),07/14/2019(Deferred: Patient Refused) Pfizer SARS-CoV-2 Monovalent Vaccination (12+ Yrs) PURPLE 02/09/2021,01/05/2021 Surgical History Surgery Date Site/Laterality Comments CATARACT EXTRACTION ENUCLEATION EYE SURGERY COLONOSCOPY ESOPHAGOGASTRODUODENOSCOPY Medical History Medical History Date Comments Hypertension Hyperlipidemia Glaucoma GERD (gastroesophageal reflux disease) Emphysema of lung Family History Medical History Relation Name Comments Blindness Father Heart attack Father [place] Heart disease Father No Known Problems Mother Relation Name Status Comments Father Mother Social History Tobacco Use Types Packs/Day Years Used Date Smoking Tobacco: Former Cigarettes 0.8 40 0 09/1981 - 09/2021 Smokeless Tobacco: Never Tobacco Cessation:Counseling Given: Not Answered Alcohol Use Standard Drinks/Week Comments Yes 2 (1 standard drink = 0.6 oz pur e alcohol) social [facility] Utilities Answer Date Recorded In the past 12 months has th e electric, gas, oil, or water [facility] threatened to shut off services in your [...] points, staff should administer the PHQ-9) 0 06/26/2025 Hunger Vital Sign Answer Date Recorded Within [...] in a half-way (including now)? No 12/03/2023 AUDIT-C Answer Date [...] on file Legal Sex Male 12:22 AM PLASTERER HELPER Gender Identity Not on file Sexual Orientation Not on file Occupation Industry Job Start Date Job End Date Disabled Not on file Not on file Not on file Last Filed Vital Signs Vital Sign Reading Time Taken Comments Blood Pressure 118/60 06/26/2025 9:39 AM CDT Pulse 98 06/26/2025 9:39 AM CDT Temperature 37.3 C (99.1 F) 06/26/2025 9:39 AM CDT Respiratory Rate 18 12/06/2024 9:32 AM CDT Oxygen Saturation 98% 06/26/2025 9:39 AM CDT Inhaled Oxygen Concentration - - Weight 69.2 kg (152 lb 8 oz) 06/26/2025 9:39 AM CDT Height 172.7 cm (5' 8) 06/26/2025 9:39 AM CDT Body Mass Index 23.19 06/26/2025 9:39 AM CDT Plan of Treatment Health Maintenance Due Date Last Done Comments DTaP/Tdap/Td Vaccine (1 - Tdap) 1972 Hepatitis B Screening 1979 Pneumococcal vaccine <65 (1 of 2 - PCV) 1980 Zoster Vaccine (1 of 2) 2011 Covid-19 Vaccine (3 - 2024-2 6 season) 2025 02/09/2021, 01/05/2021 Lung Cancer Screening 10/04/2025 10/03/2024 , 06/16/2024, 06/14/2023, Additional history exists Regular Well Visit/Exam 18-64 05/01/2026, 10/30/2024, 05/09/2024, Additional history exists Depression Screening 06/26/2026 06/26/2025, 05/01/2025, 01/31/2025, Additional history exists Colon Cancer Screening-Colonoscopy 07/14/2026 07/14/2021, 01/29/2012 Prostate Cancer Screening-PSA 05/01/2027, 12/16/2022, 10/19/2018 Colon Cancer Screening-CT Colonography Discontinued 07/14/2021, 01/29/2012 Colon Cancer Screening-DNA Stool Discontinued 07/14/20, 01/29/2012 Colon Cancer Screening-FIT Discontinued 07/14/2021, Colon Cancer Screening-Sigmoidoscopy Discontinued 07/14/2021, 01/29/2012 Hepatitis C Screening Completed 05/03/2022 Influenza Vaccine Completed 06/26/2025, , 07/22/2023, Additional history exists Procedures Procedure Name Priority [...] PANEL Routine 05/01/2025 10:[address]T [address] CHEST WO CONTRAST F/U LUNG SCREEN PROTOCOL Schedule Routine, Read Routine (OP Routine) 10/03/2024 9:25 AM PLASTERER HELPER Pulmonary nodules HEPATITIS PANEL, ACUTE Routine 05/03/2022 5:40 AM CDT COLONOSCOPY Routine 07/14/2021 from Last 3 Months or Most Recently Relevant to Health Maintenance Results * SCAN - RADIOLOGY/IMAGING (05/29/2025) Anatomical Region Laterality Modality Other Provider Scanning Final Result * PSA screen [...] LAB BLOOD ORDERABLES Final Result [facility] [address] [place] [address] * (ABNORMAL) CBC with auto differential (05/01/2025 10:18 AM CDT) WBC 10.8 3.8 - 10.8 Thousand/u L [...] AM CDT 05/01/2025 10:19 AM CDT Narrative DM[facility] - 05/02/2025 6:21 AM CDT FASTING:YES FASTING: YES Nuris ROBLES LAB BLOOD ORDERABLES Final Result [facility] [address] [place] [address] * TSH (05/01/2025 10:18 AM CDT) TSH 1.22 0.40 - 4.50 mIU/L Dmitri [facility] Blood 05/01/2025 10:1 8 AM CDT 05/01/2025 10:19 AM CDT Narrative DMITRI - 05/02/2025 6:21 AM CDT FASTING:YES FASTING: YES Nuris ROBLES LAB BLOOD ORDERABLES Final Result [facility] [address] [place] [address] * Vitamin B12 (05/01/2025 10:18 AM CDT) Vitamin B12 1,067 200 - 1,100 pg/mL [facility] Blood 05/01/2025 10:1 8 AM CDT 05/01/2025 10:19 AM CDT Narrative [facility] - 05/02/2025 6:21 AM CDT FASTING:YES FASTING: YES Nuris ROBLES LAB BLOOD ORDERABLES Final Result Performing Organization Address City/[facility]/ZIP Co de Phone Number [facility] [address] [place] [address] * (ABNORMAL) Comprehensive metabolic panel (05/01/2025 10:18 AM CDT) Glucose 86 65 - 99 mg/dL [employer] mary Gross Comment: Fasting reference interval BUN 19 7 - 25 mg/dL [facility] Creatinine 0.80 0.70 - 1.35 mg/dL [facility] eGFR 99 > OR = 60 mL/min/1.7 3m2 [facility] BUN/creat ratio SEE NOTE: 6 - 22 (calc) [facility] Comment: Not Reported: BUN and Creatinine are within reference range. Sodium 136 135 - 146 mmol/L [facility] Potassium, pl 5.1 3.5 - 5.3 mmol/L [facility] Chloride 102 98 - 110 mmol/L [facility] CO2 26 20 - 32 mmol/L [facility] Calcium 9.4 8.6 - 10.3 mg/dL [facility] Protein, sr 6.8 6.1 - 8.1 g/dL [facility] Albumin 3.9 3.6 - 5.1 g/dL [facility] GLOBULIN 2.9 1.9 - 3.7 g/dL (calc) D[facility]ri [facility] Alb/glob ratio 1.3 1.0 - 2.5 (calc) D[facility] Gross Bilirubin, total 0.2 0.2 - 1.2 mg/dL D[facility] Alk phos 48 35 - 144 U/L Dmitri Gross AST 9(L) 10 - 35 U/L Dmitri [facility] ALT (SGPT) 7(L) 9 - 46 U/L D[facility] Gross Blood 05/01/2025 10:1 8 AM CDT 05/01/2025 10:19 AM CDT Narrative [facility] - 05/02/2025 6:21 AM CDT FASTING:YES FASTING: YES Nuris ROBLES LAB BLOOD ORDERABLES Final Result [facility] [address] [place] [address] * CT Chest WO Contrast F/U Lung Screen Protocol (10/03/2024 9:25 AM PLASTERER HELPER) Anatomical Region Laterality Modality Chest N/A Computed Tomogra phy 10/03/2024 7:11 PM PLASTERER HELPER Narrative 10/03/2024 7:17 PM PLASTERER HELPER EXAM DESCRIPTION: CT CHEST WO CONTRAST F/U [...] Estuardo Ortiz M.D. KT T: Report ID: [id number] Reading Location: [place] [address] Tasia Hoffman MD IMG CT PROCEDURES Final [...] - GENERAL OR DERABLES Final Result [facility] [address] [facility] Department [place] [address] * (ABNORMAL) HM COLONOSCOPY (07/14/2021) Jame Mg MD HEALTH MAINTENANCE Edited Result - Final from Last 3 Months or Most Recently Relevant to Health Maintenance Insurance T MEDICARE [facility] [employer] MEDICARE GOLD Advance Directives For more information, please contact: [phone] * Full Code (Latest Code Status on [...] 10:34 PM 11/16/2022 9:56 PM Care Teams Cell Plasterer Relationship Specialty Start Date End Date Nuris Berger PA [address] [facility] [address] [place] [address] PCP - General Internal Medicine 12/28/18 Jonatan Stokes MD [address] [place] [address] Consulting Physician Otolaryngology 03/27/20 Irma Bajwa MD [address] [facility] [place] [address] Consulting Physician Neurology 05/07/22
--- OUTSIDE RECORDS SUMMARY | 2025-07-26 19:01 | XMS_ITS | Encounter Summary ---
Author Organization [facility] Healthcare Address [address] [place] [address] Care Team Providers Care Supervisor Shuttle Preparation Name Role Phone Nuris Berger Primary Care Provider [phone] Jonatan Stokes MD Unavailable [phone] Irma Bajwa MD Unavailable [phone] Bro[address] [place] Unavailable Unavailable Encounter Details Date Type Department Care Team (Late st Contact Info) Description 05/29/2025 [place] Only [facility] [place] Information Management [address] [place] [address] Scanning, Provider Social History Tobacco Use Types Packs/Day Years Used Date Smoking Tobacco: Former Cigarettes 0.8 40 0 09/1981 - 09/2021 Smokeless Tobacco: Never Alcohol Use Standard Drinks/Week Comments Yes 2 (1 standard drink = 0.6 oz pur e alcohol) social [facility] Utilities Answer Date Recorded In the past 12 months has [employer], gas, oil, or water [employer] threatened to shut off services in your [...] week 12/03/2023 How often do you attend [facility] or synagogue services? 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 Gender Identity Not on file Sexual [...] on filedocumented in this encounter Care Teams Supervisor Shuttle Preparation Relationship Specialty Start Date End Date Nuris Berger PA [address] [facility] [address] [place] [address] PCP - General Internal Medicine 12/28/18 Jonatan Stokes MD [address] [place] [address] Consulting Physician Otolaryngology 03/27/20 Irma Bajwa MD [address] [facility] [place] [address] Consulting Physician Neurology 05/07/22 Brooke Plaza MA [address] [facility] [address] [address] [place] [address] ACO Care Forming Process Worker 06/18/25 06/19/25 documented as of this encounter
--- OUTSIDE RECORDS SUMMARY | 2025-07-26 19:02 | XMS_ITS | Encounter Summary ---
Author Organization [facility] Healthcare Address [address] [place] [address] Care Team Providers Care Wound Care Technician Name Role Phone Nuris Berger Primary Care Provider [phone] Jonatan Stokes MD Unavailable [phone] Irma Bajwa MD Unavailable [phone] Ayla Dugan LPN Unavailable [phone] [address] [place] Unavailable Unavailable Encounter Details Date Type Department Care Team (Late st Contact Info) Description 12/21/2024 Orders Only [facility] [place] Health Information Management [address] [place] [address] Scanning, Provider Social History Tobacco Use Types Packs/Day Years Used Date Smoking Tobacco: Former Cigarettes 0.8 40 0 09/1981 - 09/2021 Smokeless Tobacco: Never Alcohol Use Standard Drinks/Week Comments Yes 0 (1 standard drink = 0.6 oz pur e alcohol) social [facility] Utilities Answer Date Recorded In the past 12 months has [employer], gas, oil, or water company threatened [...] week 12/03/2023 How often do you attend [facility] or hinduism services? 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 Gender Identity Not on file Sexual Orientation [...] on filedocumented in this encounter Care Teams Wound Care Technician Relationship Specialty Start Date End Date Nuris Berger PA [address] [facility] [address] [place] [address] PCP - General Internal Medicine 12/28/18 Jonatan Stokes MD [address] [place] [address] Consulting Physician Otolaryngology 03/27/20 Irma Bajwa MD [facility] [place] [address] Consulting Physician Neurology 05/07/22 Ayla Dugan LPN [address] [place] [address] [address] [place] [address] Cribbing Setter 03/30/25 03/30/25 Brooke Plaza MA [address] [facility] [address] [place] [address] ACO Care Contractor Field Hauling 06/18/25 06/19/25 documented as of this encounter
--- OUTSIDE RECORDS SUMMARY | 2025-07-26 19:02 | XMS_ITS | Data Portability ---
Author Organization JUSTIN TEJINDERKathy Hernandez Address [address] [place] [address] Assessment No assessment recorded. Plan of Treatment Reminders Order Date Submit Date Provider Last Modified By Organization Details Last Modified Time Details Appointments None recorded. Lab PSA, serum or plasma 2016 017 [facility], [address] [place] [address], [address], [place], [address], 7 11:13:39 vitamin D, 25-hydroxy , total, serum 2016 017 [facility], [address] [place] [address], [address], [place], [address], 7 11:13:41 lipid panel, serum 2016 017 [facility], [address] [place] [address], [address], [place], [address], 7 11:13:39 CMP, serum or plasma 2016 017 [facility], [address] [place] [address], [address], [place], [address], 7 11:13:38 CK (creatine kinase), total, serum 2016 017 [facility], [address] [place], [place] [email or web address] [address], [address], [place], [address], 7 11:13:41 HbA1c (hemoglobi n A1c), blood 2016 017 [facility], [address] [facility], [address], [place], [address], 7 11:13:40 Referral ophthalmol ogist referral - please contact patient to schedule kelechi hernandez, thank you 2016 017 [email or web address] Not available 11:35:22 Procedures None recorded. Surgeries None recorded. Imaging None recorded. Medication Orders nicotine 14 mg/24 hr daily transderma l patch 2016 017 [id number], [address], [place], [place], [id number], 7 10:19:15 losartan 100 mg tablet 2016 017 [id number], [address] [place], [place], [id number], 7 10:22:24 pravastati n 80 mg tablet 2016 017 [facility]85, [address] [place], [place], [id number], 7 10:21:48 Zetia 10 mg tablet 2016 017 [id number], [address], [place], [place], [id number], 7 10:21:48 Patient TargetsNo targets recorded. Patient InstructionsNo instructions recorded. Reason for Referral Acid Correction Hand Referral for Glaucoma please continue to treat glaucoma. thank you please contact patient to schedule appointment, thank you Referring Physician: Tereso Mathias, [facility], Encounter Date: 02/24/2017 Results Created Date Observation Date Name Description Value Unit Range Abnormal Flag Note LastModifiedBy Organization Detail LastModifiedTime 12/04/19 17 12/04/2016 CMP, serum or plasm a glucose, serum 89 mg/dL 65-99 Not Available [facility]) [address] [place], [address], 12/04/2016 11:13:38 12/04/19 17 12/04/2016 CMP, serum or plasm a BUN 14 mg/dL 6-24 Not Available [facility] ([facility]) [address] [facility] [place], [address], 12/04/2016 11:13:38 12/04/19 17 12/04/2016 CMP, serum or plasm a creatinine, serum 0.97 mg/dL 0.76-1 .27 Not Available [facility] ([facility]) [address] [facility] [place], [address], 12/04/2016 11:13:38 12/04/19 17 12/04/2016 CMP, serum or plasm a eGFR if nonafricn AM 88 mL/mi n/1.7 3 >59 Not Available [facility] ([facility]) [address] [place], [address], 12/04/2016 11:13:38 12/04/19 17 12/04/2016 CMP, serum or plasm a eGFR if africn AM 101 mL/mi n/1.7 3 >59 Not Available [facility] ([facility]) [address] [place], [address], 12/04/2016 11:13:38 12/04/19 17 12/04/2016 CMP, serum or plasm a BUN/creatini ne ratio 14 9-20 Not Available [facility] ([facility]) [address] [place], [address], 12/04/2016 11:13:38 12/04/19 17 12/04/2016 CMP, serum or plasm a sodium, serum 144 mmol/ L 134-14 4 Not Available [facility] ([facility]) [address] [place], [address], 12/04/2016 11:13:38 12/04/19 17 12/04/2016 CMP, serum or plasm a potassium, serum 4.7 mmol/ L 3.5-5. 2 Not Available [facility] ([facility]) [address] [place], [address], 12/04/2016 11:13:38 12/04/19 17 12/04/2016 CMP, serum or plasm a chloride, serum 103 mmol/ L 96-106 Not Available [facility] ([facility]) [address] [place], [address], 12/04/2016 11:13:38 12/04/19 17 12/04/2016 CMP, serum or plasm a carbon dioxide, total 24 mmol/ L 18-29 Not Available [facility] ([facility]) [address] [place], [address], 12/04/2016 11:13:38 12/04/19 17 12/04/2016 CMP, serum or plasm a calcium, serum 9.2 mg/dL 8.7-10 .2 Not Available [facility] ([facility]) [address] [place], [address], 12/04/2016 11:13:38 12/04/19 17 12/04/2016 CMP, serum or plasm a protein, total, serum 6.7 g/dL 6.0-8. 5 Not Available [facility] ([facility]) [address] [place], [address], 12/04/2016 11:13:38 12/04/19 17 12/04/2016 CMP, serum or plasm a albumin, serum 3.6 g/dL 3.5-5. 5 Not Available [facility] ([facility]) [address] [place], [address], 12/04/2016 11:13:38 12/04/19 17 12/04/2016 CMP, serum or plasm a globulin, total 3.1 g/dL 1.5-4. 5 Not Available [facility] ([facility]) [address] [place], [address], 12/04/2016 11:13:38 12/04/19 17 12/04/2016 CMP, serum or plasm a A/G ratio 1.2 1.2-2. 2 PLE ASE NOTE REFER ENCE INTER MANUEL DAMON E Not Available [facility] ([facility]) [address] [facility] [place], [address], 12/04/2016 11:13:38 12/04/19 17 12/04/2016 CMP, serum or plasm a bilirubin, total 0.3 mg/dL 0.0-1. 2 Not Available [facility] ([facility]) [address] [facility] [place], [address], 12/04/2016 11:13:38 12/04/19 17 12/04/2016 CMP, serum or plasm a alkaline phosphatase, S 53 IU/L 39-117 Not Available [facility]) [address] [facility], [place], [address], 12/04/2016 11:13:38 12/04/19 17 12/04/2016 CMP, serum or plasm a AST (SGOT) 6 IU/L 0-40 Not Available [facility] ([facility]) [address] [facility], [place], [address], 12/04/2016 11:13:38 12/04/19 17 12/04/2016 CMP, serum or plasm a ALT (SGPT) 7 IU/L 0-44 Not Available [facility] ([facility]) [address] [facility] [place], [address], 12/04/2016 11:13:38 12/04/19 17 12/04/2016 lipid panel , serum cholesterol, total 103 mg/dL 100-19 9 Not Available [facility] ([facility]) [address] [facility] [place], [address], 12/04/2016 11:13:39 12/04/19 12/04/2016 lipid panel , serum triglyceride s 92 mg/dL 0-149 Not Available [facility]) [address] [place], [address], 12/04/2016 11:13:39 12/04/19 17 12/04/2016 lipid panel , serum HDL cholesterol 25 mg/dL >39 below low normal Not Available [facility] ([facility]) [address] [place], [address], 12/04/2016 11:13:39 12/04/19 17 12/04/2016 lipid panel , serum VLDL cholesterol anselmo 18 mg/dL 5-40 Not Available [facility]) [address] [place], [address], 12/04/2016 11:13:39 12/04/19 17 12/04/2016 lipid panel , serum LDL cholesterol calc 60 mg/dL 0-99 Not Available [facility]) [address] [place], [address], 12/04/2016 11:13:39 12/04/1912/04/2016 lipid panel , serum comment: WOOD FENCE ERECTOR Not Available [facility] ([facility]) [address] [place], [address], 12/04/2016 11:13:39 12/04/1912/04/2016 lipid panel , serum LDL/HDL ratio 2.4 ratio _unit s 0.0-3. 6 LDL/H DL RATIO MEN WOMEN 1/2 AVG.R ISK 1.0 1.5 AVG.R ISK 3.6 3.2 2X AVG.R ISK 6.2 5.0 3X AVG.R ISK 8.0 6.1 Not Available [facility] ([facility]) [address] [place], [address], 12/04/2016 11:13:39 12/04/19 17 12/04/2016 PSA, serum [...] CANNO T BE INTER PRETE D ABSOL NEZ PERCE EVIDE NCE OF THE PRESE NCE OR ABSEN CE OF LA CAMPO SE. Not Available [facility] ([facility]) [address] [facility], [place], [address], 12/04/2016 11:13:39 12/04/19 17 12/04/2016 HbA1c (hemo globi n A1c), blood hemoglobin A1C 6.3 % 4.8-5. 6 above high normal PRE-D IABET ES: 5.7 - 6.4 DIABE MARIA DEL CARMEN: >6.4 GLYCE JUVENTINO CONTR OL FOR ADULT S WITH DIABE MARIA DEL CARMEN: <7.0 Not Available [facility] ([facility]) [address] [facility], [place], [address], 12/04/2016 11:13:40 12/04/1912/04/2016 vitam in D, 25-hy [...] [facility] DC: [facility] . 2. HEIDE Salazar MF, ALYSSA RAHMAN NC, DAVE OFF-F ERRAR I CHENEY, ET AL. EVALU ATION , TREAT MENT, AND PREVE NTION OF VITAM IN D DEFIC IENCY : AN ENDOC RINE SOCIE TY CLINI ANSELMO PRACT ICE GUIDE LINE. JCEM. 2010; 96(7) :1911 -30. Not Available [facility] ([facility]) [address] [facility], [place], [address], 12/04/2016 11:13:41 12/04/19 17 12/04/2016 CK (crea chuy kinas e), total , serum creatine kinase,total ,serum 62 U/L 24-204 Not Available [facility] ([facility]) [address] [facility], [place], [address], 12/04/2016 11:13:41 09/26/19 16 09/26/2015 imagi ng/di agnos tic resul t No observ ation record ed. [email or web address] Not Available 09/2015 16:44:32 Result Notes None recorded. Problems Name Problem SNOMED Code Status Onset Date Resolution Date Notes Provider Name and Address Organization Details Recorded Time Essential hypertension 41802913 Active Tereso Mathias PA-C Attn: Areli g,[address] [facility], [place], [address], [facility] 6 14:58:12 Hyperlipidemia 57999772 Active Tereso Mathias PA-C Attn: Accountin g,[address] [facility], [place], [address], [facility] 6 14:58:12 Tobacco user 863406938 Active Tereso Mathias PA-C Attn: Areli g,[address] [facility], [place], [address], [facility] 6 14:58:12 Vitamin D deficiency 76376321 Active Tereso Mathias PA-C Attn: Areli magallon,[address], [place], [address], [place] [facility] 6 14:58:12 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 Tereso Mathias PA-C Attn: Areli g,[address], [place], [address], [place] [facility] 6 14:58:12 Glaucoma 14142395 Active Tereso Mathias PA-C Attn: Accountmaryana g,[address], [place], [address], [place] [facility] 6 14:58:12 Screening for malignant neoplasm of prostate Active 2016 Tereso Mathias PA-C Attn: Areli g,[address], [place], [address], [place] [facility] 7 10:01:18 Family history of diabetes mellitus 499041995 Active 2016 Tereso Mathias PA-C Attn: Areli magallon,[address], [place], [address], [place] [facility] 7 10:02:18 Hearing loss 99485957 Active 2016 Tereso Mathias PA-C Attn: Areli magallon,[address], [place], [address], [place] [facility] 7 14:00:42 Problem Notes None recorded. Procedures Surgical History Date Name Laterality Status Provider Name and Address Organization Details Recorded Time 6 Control Implant Replacement completed Tereso Mathias PA-C Attn: Accounting,[address], [place], [address], [place] [facility] 11/19/2015 17:16:51 5 Eye Surgery completed Araceli Miller [place] [facility] 07/15/2015 16:13:26 Imaging Results None [...] [degF] 27.1 kg/m2 97 % 97 % 84841.0 85243 g 83 /min 170.18 cm 126/80 mm[Hg] Araceli Miller MA [facility] 6 16:32:52 Date Recorded Body height Body weight Body mass index (BMI) Oxygen saturation Oxygen saturation in Arterial blood by Pulse oximetry Heart rate Body temperature Systolic And Diastolic Provider Name and Address Organization Details Last Updated DateTime 7 170.18 cm 03960.9 1 g 26.5 kg/m2 99 % 99 % 65 /min 98.3 [degF] 110/72 mm[Hg] Araceli Miller MA [facility] 7 09:34:57 Date Recorded Body height Body weight Body mass index (BMI) Oxygen saturation Oxygen saturation in Arterial blood by Pulse oximetry Heart rate Body temperature Systolic And Diastolic Provider Name and Address Organization Details Last Updated DateTime 7 170.18 cm 07851.8 g 24.7 kg/m2 98 % 98 % 65 /min 97.8 [degF] 120/66 mm[Hg] Araceliaj Miller MA [facility] 7 09:45:04 Date Recorded Body height Body mass index (BMI) Body temperature Heart rate Body weight Oxygen saturation Oxygen saturation in Arterial blood by Pulse oximetry Systolic And Diastolic Provider Name and Address Organization Details Last Updated DateTime 6 170.18 cm 26.5 kg/m2 98.5 [degF] 73 /min 91180.9 23924 g 98.5 % 98.5 % 122/62 mm[Hg] Araceli Miller MA [facility] 6 14:25:34 Date Recorded Body weight Oxygen saturation Oxygen saturation in Arterial blood by Pulse oximetry Body height Body mass index (BMI) Heart rate Body temperature Systolic And Diastolic Provider Name and Address Organization Details Last Updated DateTime 5 31346.2 10526 g 98 % 98 % 170.18 cm 27.8 kg/m2 73 /min 98.1 [degF] 120/70 mm[Hg] Aarceli Miller [facility] 5 16:18:29 Social History Question Answer Notes LastModified by Organizat ion Details LastModified Time Tobacco Smoking Status Current Every Day Smoker 8 cigarettes per day Tereso Mathias PA-C Attn: Accounting,[address] , [place], [address], [facility] 11/19/2015 16:46:10 How Many Years Have You Smoked Tobacco? 16 [email or web address] Information not available 11/19/2015 Sex: Unknown Functional [...] Skin Problems N Anemia N Heart Attack ([place]) N Anxiety Disorder N Diabetes N Muscle, [...] ICD10 Code Diagnosis IMO Codes Diagnosis Note [id number] MD Dominique Horne (Adult Med) [address] [place] [address] 07/15/2015 16:01:26 07/18/2015 11:52:23 Essential hypertension 87070866 I10 Hyperlipidemia 04372257 E78.5 Tobacco user 510944956 Z 72.0 Vitamin D deficiency 347 85392 E55.9 [id number] GONZALO Vega (Adult Med) [address] [place] [address] 11/19/2015 15:59:03 11/19/2015 17:39:42 Essential hypertension 44282484 I10 Hyperlipidemia 71365740 E78.5 Tobacco user 127010810 Z 72.0 Vitamin D deficiency 347 68140 E55.9 Blind right eye 60752227 0 H54.41 removed October 07, 2015 Glaucoma 22498903 H40.9 left eye : on 4 types of eye drops. pressure is 13 [id number] MD Dominique Horne (Adult Med) [address] [place] [address] 04/14/2016 13:43:20 04/14/2016 18:05:17 Blind right eye 677161968 H54.41 removed October 07, 2015 Essential hypertension 93946930 I10 Glaucoma 65753460 H40.9 left eye : on 4 types of eye drops. pressure is 13 Hyperlipidemia 71655185 E78.5 Tobacco user 316790866 Z 72.0 Vitamin D deficiency 347 16027 E55.9 [id number] MD Dominique Horne (Adult Med) [address] [place] [address] 11/18/2016 09:02:57 11/18/2016 17:59:18 Essential hypertension 66167846 I10 Hyperlipidemia 83412760 E78.5 Vitamin D deficiency 347 39915 E55.9 Blind right eye 43945144 0 H54.41 removed October 07, 2015 Glaucoma 61664945 H40.9 left eye : on 4 types of eye drops. pressure is 13 Tobacco user 864799126 Z 72.0 Screening for malignant neoplasm of prostate 199541057 Z12.5 Family his tory of diabetes mellitus 219783952 Z83.3 [id number] GONZALO Vega (Adult Med) [address] [place] [address] 02/24/2017 09:11:33 02/24/2017 17:54:57 Tobacco user 075979878 Z72.0 cannot tolerate Chantix Vitamin D deficiency 347 76155 E55.9 Hyperlipidemia 63097495 E78.5 Essential hypertension 52039737 I10 Glaucoma 66317819 H40.9 left eye : on 4 types of eye drops. pressure is 13 Health Concerns Section Related Observation LastModified by Organization Detai ls LastModified Time None Recorded Concern Status LastModified by Organization Details LastModified Time None Recorded Advance Directives Directive None Recorded Payers Insurance Date Sequence Insurance Name Policy Number Policy Guzman Covered Member ID Guzman Member ID Guarantor Name 02/21/2017 1 [facility] (MEDICARE REPLACEMENT/A DVANTAGE - HMO) [id number] Mark Hines [id number] Mark Hines Notes Date Note Type Note Provider Name and Address Organization Details Recorded Time 11/18/2016 text/html ROS as noted in the HPI no changes Tereso Mathias PA-C Attn: Accounting,[address] [facility], [place], [address], [facility] 11/18/2016 14:01:21 02/24/2017 text/html ROS as noted in the HPI no changes , needs another referral to eye doctor at [facility] , for glaucoma treatment Tereso Mathias PA-C Attn: Accounting,[address] [facility], [place], [address], [facility] 02/24/2017 12:42:21
--- OUTSIDE RECORDS SUMMARY | 2025-07-26 19:02 | XMS_ITS | Encounter Summary ---
Author Organization [facility] Healthcare Address [address] [place] [address] Care Team Providers Care Furnace Loader Name Role Phone Nuris Berger Primary Care Provider [phone] Jonatan Stokes MD Unavailable [phone] Irma Bajwa MD Unavailable [phone] Ayla Dugan LPN Unavailable [phone] Brooke Plaza MA Unavailable Unavailable Encounter Details Date Type Department Care Team (Late st Contact Info) Description 12/26/2024 Orders Only [facility] Health Information Management [address] [place] [address] Scanning, Provider Social History Tobacco Use Types Packs/Day Years Used Date Smoking Tobacco: Former Cigarettes 0.8 40 0 09/1981 - 09/2021 Smokeless Tobacco: Never Alcohol Use Standard Drinks/Week Comments Yes 0 (1 standard drink = 0.6 oz pur e alcohol) social [facility] Utilities Answer Date Recorded In the past 12 months has [employer] electric, gas, oil, or water company threatened [...] week 12/03/2023 How often do you attend [facility] or [facility] services? 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 Gender Identity Not on file Sexual [...] on filedocumented in this encounter Care Teams Furnace Loader Relationship Specialty Start Date End Date Nuris Berger PA [address] [place] [address] PCP - General Internal Medicine 12/28/18 Jonatan Stokes MD [address] [place] [address] Consulting Physician Otolaryngology 03/27/20 Irma Bajwa MD [address] [facility] [place] [address] Consulting Physician Neurology 05/07/22 Ayla Dugan LPN [address] [place] [address] [address] [place] [address] Drag Seiner 03/30/25 03/30/25 Brooke Plaza MA [address] [facility] [address] [place] [address] ACO Care Media Technician 06/18/25 06/19/25 documented as of this encounter
--- OUTSIDE RECORDS SUMMARY | 2025-07-26 19:02 | XMS_ITS | Clinical Summary ---
Author Organization [facility] Address [address] [place] [address] Care Team Providers Care Insurance Defense Paralegal Name Role Phone Nuris Berger PA-C Primary Care Provider [phone] Source Comments [facility],non-owned Affiliates and Associated Physician Practices is amultiple site organization consisting of ambulatory clinics and hospital sitesin [place], [place], [place] and [place]. This disclosure is being madepursuant to the Care Everywhere program and may not contain all information available regarding this patient. Last updated 18.[facility] Allergies Active Allergy Reactions Criticality Noted Date [...] tablet 06/17/2023 Active ergocalciferol (Drisdol) 1.25 MG (89552 UT) capsule Take 1 (one) capsule by [...] 11 07/21/2024 Active trimethoprim-po lymyxin B (Polytrim) 39209-1.1 UNIT/ML-% ophthalmic solution Instill 1 (one) drop [...] Reviewed options for assistance with cessation. 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 Pt declines assistance [...] polyp 05/20/2019 Overview (12/24/2020): Colonoscopy 01/29/2012 at [facility]--->2021 Last Assessment & Plan: Recvd colonoscopy and [...] 05/18/2025 Refill [facility] [address] [place] [address] Louis Hansen MD MEDICATION REFILL from Last 3 Months Immunizations Immunization Administration Dates Next Due Covid Pfizer primary [...] Comments Blood Pressure 128/70 08/26/2023 12:43 PM NURSE ESTHETICIAN Pulse 65 08/26/2023 12:43 PM NURSE ESTHETICIAN Temperature 35.9 C (96.7 F) 08/26/2023 12:34 PM NURSE ESTHETICIAN Respiratory Rate 14 08/26/2023 12:43 PM NURSE ESTHETICIAN Oxygen Saturation 98% 08/26/2023 12:34 PM NURSE ESTHETICIAN Inhaled Oxygen Concentration - - Weight 64.9 kg (143 lb) 08/26/2023 9:01 AM NURSE ESTHETICIAN Height 172.7 cm (5' 8) 08/26/2023 9:01 AM NURSE ESTHETICIAN Body Mass Index 21.74 08/26/2023 9:01 AM NURSE ESTHETICIAN Plan of Treatment Upcoming Encounters Date Type Department Care Team (Late st Contact Info) Description 08/07/2025 8:40 AM NURSE ESTHETICIAN Office Visit [facility] [address] [place] [address] Tyrel Velez MD [address] [place] [address] 10/17/2025 9:00 AM NURSE ESTHETICIAN Office Visit [facility] [address] [place] [phone] Louis Hansen MD [employer] [place] [address] Health Maintenance Due Date Last Done Comments COLOGUARD (AGES 45-75) - COLON CA SCREENING 1961 COLON MONITORING 1961 COLONOSCOPY - COLON CA SCREENING 1961 CT COLONOGRAPHY - COLON CA SCREENING 1961 Colorectal Cancer Screening 1961 FIT - COLON CA SCREENING 1961 FLEX SIG - COLON CA SCREENING 1961 HIV SCREENING 1976 HEPATITIS C SCREENING 10/16/1979 DTAP/TDAP/TD VACCINES (1 - Tdap) 1980 PNEUMOCOCCAL [...] SCREENING 06/16/2025 06/16/2024 , 06/14/2023, 08/02/2020 HEPATITIS B VACCINE Aged Out No longe [...] this topic Medical Devices Implanted Type Area Costume Shop Coordinator Device Identifier Shelf Expiration Date Model / Serial / Lot Drain Glcm Thk.9mm Blnt Tpr [facility] Flxb - [id number] Implanted:Qty: 1 on 05/04/2018 by Tyrel Velez MD at [facility] Left: Eye [facility] 03/15/2020 FP7 / [id number] / [id number] Graft Tissue Ttplst Sclr .8x.5cm Lopro - [id number] Implanted:Qty: 1 on 05/04/2018 by Tyrel Velez MD at [facility] Left: Eye [employer] 01/17/2023 [id number] / [id number] / [id number] Impl Opth 250sq Mm Brvldt Magaly 1 Qdrnt - [id number] Implanted:Qty: 1 on 06/16/2023 by Tyrel Velez MD at [facility] Left: Eye [employer] 01/09/2024 [id number] / [id number] / Graft Tissue Ttpl Ioptch Sclr .8x.5cm - [id number] Implanted:Qty: 1 on 06/16/2023 by Tyrel Velez MD at [facility] Left: Eye [employer] 09/19/2027 [id number] / [id number] / Graft Tissue Ttpl Ioptch Sclr .8x.5cm - [id number] Implanted:Qty: 1 on 06/16/2023 by Tyrel Velez MD at [facility] Left: Eye [employer] 09/19/2027 [id number] / [id number] / J Luis Cornea - [id number] Implanted:Qty: 1 on 08/26/2023 by Louis Hansen MD at [facility] Left: Eye [employer] 09/05/2023 [id number] / [id number] / [id number] Description:Product Numb:[id number] EXP:09-05-2023 DIN:[id number] Insurance A[employer]NA MEDICARE ADV AETNA Advance Directives * Full Code (Latest Code Status on File) Date Activated Date Inactivated Comments 05/04/2018 11:35 AM 05/04/2018 1:21 PM * Full Code Date Activated Date Inactivated Comments 05/04/2018 7:43 AM 05/04/2018 11:35 AM Care Teams Insurance Defense Paralegal Relationship Specialty Start Date End Date Nuris Berger PA-C PCP - General 02/13/20
[2025-07-26] MEDS: FAMOTIDINE 20 MG TABLET PO (20:15)
[2025-07-26] MEDS: MONTELUKAST SODIUM 10 MG TABLET PO (20:15)
--- OUTSIDE RECORDS SUMMARY | 2025-07-26 20:22 | XMS_ITS | Encounter Summary ---
Author Organization [facility] Healthcare Address [address] [place] [address] Care Team Providers Care Landscape Designer Name Role Phone Nuris Berger Primary Care Provider [phone] Jonatan Stokes MD Unavailable Irma Bajwa MD Unavailable [phone] Bro[address] [place] Unavailable Unavailable Encounter Details Date Type Department Care Team (Late st Contact Info) Description 05/29/2025 Orders Only [facility] Health Information Management [address] [place] [id number] Scanning, Provider Social History Tobacco Use Types Packs/Day Years Used Date Smoking Tobacco: Former Cigarettes 0.8 40 0 09/1981 - 09/2021 Smokeless Tobacco: Never Alcohol Use Standard Drinks/Week Comments Yes 2 (1 standard drink = 0.6 oz pur e alcohol) social [facility] Utilities Answer Date Recorded In the past 12 months has [employer], gas, oil, or water [employer] threatened to shut off services in your [...] 12/03/2023 How often do you attend [facility]? Patient declined 12/03/2023 Do you belong to any clubs o r organizations such as advent groups, unions, fraternal or athletic groups, or [...] in a prison (including now)? 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 [place] [address] ACO Care Waxer 06/18/25 06/19/25 documented as of this encounter
--- OUTSIDE RECORDS SUMMARY | 2025-07-26 20:23 | XMS_ITS | Clinical Summary ---
Author Organization [facility] Address [address] [place] [address] Care Team Providers Care Wall Washer Name Role Phone Nuris Berger PA-C Primary Care Provider [phone] Source Comments [facility],non-owned Affiliates and Associated Physician Practices is amultiple site organization consisting of ambulatory clinics and hospital sitesin [place], [place], [place] and [place]. This disclosure is being madepursuant to the Care Everywhere program and may not contain all information available regarding this patient. Last updated 18.[facility] Allergies Active Allergy Reactions Criticality Noted Date [...] tablet 06/17/2023 Active ergocalciferol (Drisdol) 1.25 MG (15784 UT) capsule Take 1 (one) capsule by [...] 11 07/21/2024 Active trimethoprim-po lymyxin B (Polytrim) 89923-7.1 UNIT/ML-% ophthalmic solution Instill 1 (one) drop [...] Reviewed options for assistance with cessation. Reviewed game advisor sequela associated with smoking. Pt declines assistance [...] polyp 05/20/2019 Overview (12/24/2020): Colonoscopy 01/29/2012 at [facility]--->2021 Last Assessment & Plan: Recvd colonoscopy [...] Refill [facility] [address] [place] [address] Louis Hansen MD MEDICATION REFILL from Last [...] Comments Blood Pressure 128/70 08/26/2023 12:43 PM INTERNET SALES REPRESENTATIVE Pulse 65 08/26/2023 12:43 PM INTERNET SALES REPRESENTATIVE Temperature 35.9 C (96.7 F) 08/26/2023 12:34 PM INTERNET SALES REPRESENTATIVE Respiratory Rate 14 08/26/2023 12:43 PM INTERNET SALES REPRESENTATIVE Oxygen Saturation 98% 08/26/2023 12:34 PM INTERNET SALES REPRESENTATIVE Inhaled Oxygen Concentration - - Weight 64.9 kg (143 lb) 08/26/2023 9:01 AM INTERNET SALES REPRESENTATIVE Height 172.7 cm (5' 8) 08/26/2023 9:01 AM INTERNET SALES REPRESENTATIVE Body Mass Index 21.74 08/26/2023 9:01 AM INTERNET SALES REPRESENTATIVE Plan of Treatment Upcoming Encounters Date Type Department Care Team (Late st Contact Info) Description 08/07/2025 8:40 AM INTERNET SALES REPRESENTATIVE Office Visit [facility] [address] [place] [phone] Tyrel Velez MD [address] [place] [address] 10/17/2025 9:00 AM INTERNET SALES REPRESENTATIVE Office Visit [facility] [address] [place] [phone] Louis Hansen MD [facility] [facility] [place] [address] Health Maintenance Due Date Last [...] this topic Medical Devices Implanted Type Area Environmental Protection Inspector Device Identifier Shelf Expiration Date Model / Serial / Lot Drain Glcm Thk.9mm Blnt Tpr [facility] Flxb - [id number] Implanted:Qty: 1 on 05/04/2018 by Tyrel Velez MD at [facility] Left: Eye [facility] 03/15/2020 FP7 / [id number] / [id number] Graft Tissue Ttplst Sclr .8x.5cm Lopro - [id number] Implanted:Qty: 1 on 05/04/2018 by Tyrel Velez MD at [facility] Left: Eye [employer] 01/17/2023 [id number] / [id number] / [id number] Impl Opth 250sq Mm Brvldt Magaly 1 Qdrnt - [id number] Implanted:Qty: 1 on 06/16/2023 by Tyrel Velez MD at [facility] Left: Eye [employer] 01/09/2024 [id number] / [id number] / Graft Tissue Ttpl Ioptch Sclr .8x.5cm - [id number] Implanted:Qty: 1 on 06/16/2023 by Tyrel Velez MD at [facility] Left: Eye [employer] 09/19/2027 [id number] / [id number] / Graft Tissue Ttpl Ioptch Sclr .8x.5cm - [id number] Implanted:Qty: 1 on 06/16/2023 by Tyrel Velez MD at [facility] Left: Eye [employer] 09/19/2027 [id number] / [id number] / J Luis Cornea - [id number] Implanted:Qty: 1 on 08/26/2023 by Louis Hansen MD at [facility] Left: Eye [employer] 09/05/2023 [id number] / [id number] / [id number] Description:Product Numb:[id number] EXP:09-05-2023 DIN:[id number] Insurance [employer] MEDICARE ADV AET[employer] Advance Directives * Full Code (Latest Code Status on File) Date Activated Date Inactivated Comments 05/04/2018 11:35 AM 05/04/2018 1:21 PM * Full Code Date Activated Date Inactivated Comments 05/04/2018 7:43 AM 05/04/2018 11:35 AM Care Teams Wall Washer Relationship Specialty Start Date End Date Nuris Berger PA-C PCP - General 02/13/20
--- OUTSIDE RECORDS SUMMARY | 2025-07-26 20:23 | XMS_ITS | Clinical Summary ---
Author Organization [facility] [address] [facility] Address [address] [place] [address] Care Team Providers Care Dishwasher Preparer Name Role Phone Nuris Berger Primary Care Provider [phone] Jonatan Stokes MD Unavailable [phone] Irma Bajwa MD Unavailable [phone] Allergies Active Allergy Reactions Criticality Noted Date [...] ronic obstructive pulmonary disease, unspecified COPD type ([facility]) INHALE 2 PUFFS BY MOUTH TWICE [...] 11/24/2023 Assessment & Plan (11/19/2024 11:45 PM BRIDGE TOLL COLLECTOR): Supplement Assessment & Plan (05/20/2024 7:36 PM CDT): Supplement Fatigue 12/12/2022 Assessment & Plan (05/20/2024 7:37 PM CDT): Probably multifactorial. Check labs and followup to re-evaluate Assessment & Plan (11/24/2023 10:35 AM BRIDGE TOLL COLLECTOR): Probably multifactorial. Check labs and followup to [...] 01/16/2022 Assessment & Plan (11/19/2024 11:44 PM BRIDGE TOLL COLLECTOR): Chronic hiccups for 5+ years Has been [...] to the ER. ER recommended referral to [facility] but patient states he can't go to [...] weeks Assessment & Plan (11/24/2023 10:34 AM BRIDGE TOLL COLLECTOR): Patient has persistent chronic hiccups that come [...] monitor Assessment & Plan (08/15/2023 5:01 PM BRIDGE TOLL COLLECTOR): Chronic hiccups for years. Has tried multiple interventions along with multiple workups from specialists including Neurology pulmonology and GI. Continue current regimen. Stressed importance of limiting water intake when he has the hiccups spells as this has been leading to hyponatremia requiring hospitalization. Assessment & Plan (08/11/2023 8:45 AM BRIDGE TOLL COLLECTOR): Patient with chronic hiccups. Have had difficulty [...] levels. Assessment & Plan (08/15/2022 6:45 PM BRIDGE TOLL COLLECTOR): Patient has consulted with most multiple specialists [...] hiccups. Assessment & Plan (08/15/2023 5:02 PM BRIDGE TOLL COLLECTOR): Chronic hiccups for years. Has tried multiple interventions along with multiple workups from specialists including Neurology pulmonology and GI. Continue current regimen. Stressed importance of limiting water intake when he has the hiccups spells as this has been leading to hyponatremia requiring hospitalization. Assessment & Plan (08/11/2023 8:46 AM BRIDGE TOLL COLLECTOR): Hyponatremia secondary to water intake with chronic [...] 07/14/2019 Assessment & Plan (11/19/2024 11:44 PM BRIDGE TOLL COLLECTOR): Continue PPI p.r.n. Assessment & Plan (05/20/2024 7:35 PM CDT): Continue pantoprazole p.r.n. Assessment & Plan (11/24/2023 10:33 AM BRIDGE TOLL COLLECTOR): Continue pantoprazole p.r.n. Assessment & Plan (04/08/2023 8:48 PM CDT): Continue PPI p.r.n. Assessment & Plan (12/12/2022 9:43 PM CDT): Insert PPI Assessment & Plan (08/15/2022 6:45 PM BRIDGE TOLL COLLECTOR): Continue PPI prn Assessment & Plan (02/09/2021 8:17 PM CDT): Continue PPI Assessment & Plan (07/29/2020 7:33 AM BRIDGE TOLL COLLECTOR): Continue PPI Assessment & Plan (03/27/2020 8:01 AM CDT): Dr. Stokes changed him from omeprazole to Pantoprazole for the hiccups. Pt hasn't noted any difference in GERD sxs (still well controlled) or hiccups. Assessment & Plan (09/26/2019 7:38 AM BRIDGE TOLL COLLECTOR): Continue PPI Assessment & Plan (07/14/2019 8:46 AM CDT): Discussed GERD at length including anatomy, behavioral changes (raise HOB, meal timings), dietary changes and medication options. Reviewed risks, benefits alternatives, side effects and proper use. Followup if sxs worsen or has hematochezia or hematemeis. Start PPI Chronic obstructive pulmonary disease 06/26/2019 Overview (06/26/2019): Noted on 06/2019 LDCT Assessment & Plan (11/19/2024 11:44 PM BRIDGE TOLL COLLECTOR): Patient with allergies and COPD. Continue Singulair albuterol and Symbicort. Follows with Dr. Valdes. Assessment & Plan (05/20/2024 7:35 PM CDT): Continue per Dr. Valdes. Continue with his Symbicort and albuterol inhalers. Low-dose CT will be scheduled for June 16, 2024. Assessment & Plan (11/24/2023 10:33 AM BRIDGE TOLL COLLECTOR): COPD. Continue per Dr. Hammond his body art technician Continue Symbicort Singulair and albuterol p.r.n. Assessment & Plan (04/08/2023 8:48 PM CDT): Encouraged smoking cessation. Continue per Dr. Hammond pulmonology. He is on albuterol Symbicort and Singulair Assessment & Plan (12/12/2022 9:43 PM CDT): Stop smoking. Continue per Pulmonary. Continue Symbicort Singulair and albuterol. Continue monitoring low-dose CTs as instructed Assessment & Plan (08/15/2022 6:44 PM BRIDGE TOLL COLLECTOR): Stop smoking. Continue current plan per Pulmonary Assessment & Plan (08/01/2021 9:34 PM BRIDGE TOLL COLLECTOR): Continue per Pulmonary Dr. Valdes Assessment & Plan (02/09/2021 8:15 PM CDT): Stop smoking. Continue per Dr. Valdes Assessment & Plan (07/29/2020 7:32 AM BRIDGE TOLL COLLECTOR): Continue per Pulm Assessment & Plan (03/27/2020 8:00 AM CDT): Stop smoking. He declines starting inhalers or referral to Pulmonary Assessment & Plan (09/26/2019 10:27 PM BRIDGE TOLL COLLECTOR): This is a significant, separately identifiable problem [...] order Assessment & Plan (07/29/2020 7:33 AM BRIDGE TOLL COLLECTOR): Needs to repeat ---Dr. Valdes has already ordered Assessment & Plan (03/27/2020 8:00 AM CDT): 06/2019 LDCT Several 2-3mm nodules, probable benign LungRADs 2 --- repeat 06/2020 Assessment & Plan (09/26/2019 10:26 PM BRIDGE TOLL COLLECTOR): 06/2019 LDCT Several 2-3mm nodules, probable benign LungRADs 2 --- repeat 06/2020 Hyperplastic rectal polyp 05/20/2019 Overview (05/20/2019): Colonoscopy 01/29/2012 at [facility]--->2021 Assessment & Plan (05/28/2019 7:33 PM CDT): Recvd colonoscopy and due to repeat in 2021 Hiatal hernia 05/20/2019 Mixed hyperlipidemia 05/20/2019 Assessment & Plan (11/19/2024 11:45 PM BRIDGE TOLL COLLECTOR): Encouraged patient to follow low fat/low chol [...] 80 Assessment & Plan (11/24/2023 10:34 AM BRIDGE TOLL COLLECTOR): Encouraged patient to follow low fat/low chol diet like the Mediterranean diet. Increase good fats in the diet. Increase exercise. Monitor labs as needed. Continue pravastatin 80 Assessment & Plan (08/15/2023 5:03 PM BRIDGE TOLL COLLECTOR): Encouraged patient to follow low fat/low chol [...] Zetia Assessment & Plan (08/01/2021 9:33 PM BRIDGE TOLL COLLECTOR): Encouraged patient to follow fat/low chol diet [...] statin Assessment & Plan (07/29/2020 7:34 AM BRIDGE TOLL COLLECTOR): Encouraged patient to follow fat/low chol diet like the Mediterranean diet. Increase good fats in the diet. Increase exercise. Monitor labs as needed. Assessment & Plan (03/27/2020 8:02 AM CDT): Encouraged patient to continue low fat/low chol diet. Continue exercise. Increase good fats in the diet. Monitor labs as needed. Stable with zetia and pravastatin Assessment & Plan (09/26/2019 7:39 AM BRIDGE TOLL COLLECTOR): Encouraged patient to continue low fat/low chol [...] change Assessment & Plan (08/15/2023 5:03 PM BRIDGE TOLL COLLECTOR): Patient is legally blind. Continue with Ophthalmology Assessment & Plan (04/08/2023 8:47 PM CDT): No change Assessment & Plan (03/27/2020 8:02 AM CDT): No change Assessment & Plan (09/26/2019 7:39 AM BRIDGE TOLL COLLECTOR): No change Assessment & Plan (05/28/2019 7:35 PM CDT): No change Cigarette smoker 05/20/2019 Assessment & Plan (08/11/2023 8:45 AM BRIDGE TOLL COLLECTOR): Encouraged smoking cessation. Discussed 3 minutes. Reviewed options for assistance with cessation. Reviewed intermediate teacher sequela associated with smoking. Pt declines assistance at this time but may contact the office at anytime for further help as they desire. Assessment & Plan (04/08/2023 8:47 PM CDT): Encouraged smoking cessation. Discussed 3 minutes. Reviewed options for assistance with cessation. Reviewed correction sequela associated with smoking. Pt declines assistance at this time but may contact the office at anytime for further help as they desire. Low-dose CT will be due in May. It is already scheduled Assessment & Plan (12/12/2022 9:42 PM CDT): Encouraged smoking cessation. Discussed 3 minutes. Reviewed options for assistance with cessation. Reviewed intermediate teacher sequela associated with smoking. Pt declines assistance at this time but may contact the office at anytime for further help as they desire. Assessment & Plan (08/15/2022 6:44 PM BRIDGE TOLL COLLECTOR): Encouraged smoking cessation. Discussed 3 minutes. Reviewed options for assistance with cessation. Reviewed intermediate teacher sequela associated with smoking. Pt declines assistance at this time but may contact the office at anytime for further help as they desire. Assessment & Plan (05/09/2022 8:19 PM CDT): Encouraged smoking cessation. Discussed 3 minutes. Reviewed options for assistance with cessation. Reviewed intermediate teacher sequela associated with smoking. Pt declines assistance at this time but may contact the office at anytime for further help as they desire. Assessment & Plan (08/01/2021 9:33 PM BRIDGE TOLL COLLECTOR): Encouraged smoking cessation. Discussed 3 minutes. Reviewed options for assistance with cessation. Reviewed intermediate teacher sequela associated with smoking. Pt declines assistance at this time but may contact the office at anytime for further help as they desire. Assessment & Plan (05/17/2021 11:41 PM CDT): Encouraged smoking cessation. Discussed 3 minutes. Reviewed options for assistance with cessation. Reviewed intermediate teacher sequela associated with smoking. Pt declines assistance at this time but may contact the office at anytime for further help as they desire. Assessment & Plan (03/12/2021 12:31 PM CDT): Encouraged smoking cessation. Discussed 3 minutes. Reviewed options for assistance with cessation. Reviewed correction sequela associated with smoking. He is slowing down. Offered assistance. May call if decides he wants help Assessment & Plan (07/29/2020 7:34 AM BRIDGE TOLL COLLECTOR): Encouraged smoking cessation. Discussed 3 minutes. Reviewed options for assistance with cessation. Reviewed correction sequela associated with smoking. Pt declines assistance at this time but may contact the office at anytime for further help as they desire. Assessment & Plan (03/27/2020 8:02 AM CDT): Encouraged smoking cessation. Discussed 3 minutes. Reviewed options for assistance with cessation. Reviewed intermediate teacher sequela associated with smoking. Pt declines assistance at this time but may contact the office at anytime for further help as they desire. Assessment & Plan (09/26/2019 7:39 AM BRIDGE TOLL COLLECTOR): Encouraged smoking cessation. Discussed 3 minutes. Reviewed options for assistance with cessation. Reviewed intermediate teacher sequela associated with smoking. Pt declines assistance at this time but may contact the office at anytime for further help as they desire. Assessment & Plan (07/14/2019 7:05 PM CDT): Encouraged smoking cessation. Discussed 3 minutes. Reviewed options for assistance with cessation. Reviewed intermediate teacher sequela associated with smoking. Pt declines assistance [...] 05/20/2019 Assessment & Plan (11/19/2024 11:45 PM BRIDGE TOLL COLLECTOR): Pre-diabetes/hyperglycemia is a precursor to Dm. Stressed [...] diabetes. Assessment & Plan (11/24/2023 10:34 AM BRIDGE TOLL COLLECTOR): Pre-diabetes/hyperglycemia is a precursor to Dm. Stressed importance of working on diet (decrease your simple sugars and one carbohydrate with each meal) and increase you exercise to achieve weight loss and this will help prevent you from progressing to diabetes. Assessment & Plan (08/15/2023 5:03 PM BRIDGE TOLL COLLECTOR): Pre-diabetes/hyperglycemia is a precursor to Dm. Stressed [...] diabetes. Assessment & Plan (08/01/2021 9:33 PM BRIDGE TOLL COLLECTOR): Pre-diabetes/hyperglycemia is a precursor to Dm. Stressed [...] diabetes. Assessment & Plan (07/29/2020 7:34 AM BRIDGE TOLL COLLECTOR): Pre-diabetes is a precursor to Dm. Stressed [...] labs Assessment & Plan (09/26/2019 10:27 PM BRIDGE TOLL COLLECTOR): This is a significant, separately identifiable problem [...] 025 Assessment & Plan (11/19/2024 11:45 PM BRIDGE TOLL COLLECTOR): Encouraged healthy lifestyle, good nutrition and exercise. Encouraged Calcium and Vitamin D and weight bearing exercise for bone health. Reviewed immunizations Reviewed age appropirate screenings. BMI 23.0-23.9, adult 06/20/2024 025 Assessment & Plan (10/30/2024 8:57 AM BRIDGE TOLL COLLECTOR): Weight/BMI is in healthy range. Continue healthy [...] 024 Assessment & Plan (11/24/2023 10:35 AM BRIDGE TOLL COLLECTOR): Encouraged healthy lifestyle, good nutrition and exercise. Encouraged Calcium and Vitamin D and weight bearing exercise for bone health. Reviewed immunizations Reviewed age appropirate screenings. Need for influenza vaccination 08/15/2023 11/24/2023 Assessment & Plan (08/15/2023 5:04 PM BRIDGE TOLL COLLECTOR): Flu vaccine updated in the office today BMI 22.0-22.9, adult 07/22/2023 024 Assessment & Plan (08/11/2023 8:12 AM BRIDGE TOLL COLLECTOR): Weight/BMI is in healthy range. Continue healthy [...] 04/03/2023 Assessment & Plan (08/15/2022 6:45 PM BRIDGE TOLL COLLECTOR): Flu updated in the office today BMI [...] test outpatient. Was referred to an outside treater helper. Encouraged to consider seeing a [facility] Medical group of cardiologists so all of his providers are in the same system. He is in agreement. Referral made to Dr. Eduardo as he has multiple risk factors. BMI 23.0-23.9, adult 01/21/2022 022 Assessment & Plan (01/21/2022 11:10 AM CDT): Weight/BMI is in healthy range. Continue healthy lifestyle to maintain. BMI 21.0-21.9, adult 08/01/2021 022 Assessment & Plan (08/01/2021 7:28 AM BRIDGE TOLL COLLECTOR): Weight/BMI is in healthy range. Continue healthy lifestyle to maintain. Medicare annual wellness visit, subsequent 08/01/2021 08/15/2022 Assessment & Plan (08/01/2021 9:34 PM BRIDGE TOLL COLLECTOR): Encouraged healthy lifestyle, good nutrition and exercise. Encouraged Calcium and Vitamin D and weight bearing exercise for bone health. Reviewed immunizations. Reviewed age appropirate screenings. Medicare Wellness Documentation is completed within the chart Fatigue 05/17/2021 05/02/2022 Assessment & Plan (08/01/2021 9:34 PM BRIDGE TOLL COLLECTOR): Probably multifactorial. Check labs and followup to [...] 024 Assessment & Plan (11/24/2023 10:34 AM BRIDGE TOLL COLLECTOR): Weight/BMI is in healthy range. Continue healthy [...] 05/02/2022 Assessment & Plan (07/29/2020 7:34 AM BRIDGE TOLL COLLECTOR): Probably multifactorial. Check labs and followup to re-evaluate Need for immunization against influenza 07/29/2020 11/24/2020 Assessment & Plan (07/29/2020 7:34 AM BRIDGE TOLL COLLECTOR): Updated in office today BMI 22.0-22.9, adult 03/27/2020 024 Assessment & Plan (05/20/2024 7:37 PM CDT): Weight/BMI is in healthy range. Continue healthy lifestyle to maintain. Assessment & Plan (07/29/2020 7:34 AM BRIDGE TOLL COLLECTOR): Weight/BMI is in healthy range. Continue healthy [...] 09/26/2019 Assessment & Plan (09/26/2019 7:39 AM BRIDGE TOLL COLLECTOR): Weight/BMI is in healthy range. Continue healthy lifestyle to maintain. Annual physical exam 09/26/2019 Assessment & Plan (09/26/2019 7:40 AM BRIDGE TOLL COLLECTOR): Encouraged healthy lifestyle, good nutrition and exercise. Encouraged Calcium and Vitamin D and weight bearing exercise for bone health. Reviewed immunizations Reviewed age appropirate screenings. Influenza vaccine refused 09/26/2019 Assessment & Plan (09/26/2019 7:40 AM BRIDGE TOLL COLLECTOR): Encouraged vaccine. Reviewed risks/ benefits. Patient refuses and accepts risks. Esophagitis determined by endoscopy 05/20/2019 05/02/2022 Gastritis 05/20/2019 05/02/2022 Essential (primary) hypertension 05/20/2019 05/20/2024 Assessment & Plan (11/24/2023 10:34 AM BRIDGE TOLL COLLECTOR): Bp is stable/in acceptable range for any co-morbidities. Encouraged to limit sodium intake and exercise for weight control. Continue losartan 50 Assessment & Plan (08/15/2023 5:04 PM BRIDGE TOLL COLLECTOR): Bp is stable/in acceptable range for any co-morbidities. Encouraged to limit sodium intake and exercise for weight control. Continue per Dr. Curtis Assessment & Plan (08/11/2023 8:45 AM BRIDGE TOLL COLLECTOR): Bp is stable/in acceptable range for any [...] losartan Assessment & Plan (08/15/2022 6:44 PM BRIDGE TOLL COLLECTOR): Bp is stable/in acceptable range for any [...] 50 Assessment & Plan (08/01/2021 9:33 PM BRIDGE TOLL COLLECTOR): Bp is stable/in acceptable range for any [...] Losartan/HCTZ Assessment & Plan (07/29/2020 7:33 AM BRIDGE TOLL COLLECTOR): Bp is stable/in acceptable range for any co-morbidities. Encouraged to limit sodium intake and exercise for weight control. Losartan and HCTZ Assessment & Plan (03/27/2020 8:00 AM CDT): Bp is stable/in acceptable range for any co-morbidities. Encouraged to limit sodium intake and exercise for weight control. Continue losartan/HCTZ Assessment & Plan (09/26/2019 7:38 AM BRIDGE TOLL COLLECTOR): Bp is stable/in acceptable range for any [...] 01/21/2022 Assessment & Plan (08/01/2021 9:34 PM BRIDGE TOLL COLLECTOR): Persistent hiccups. Has consulted with multiple providers [...] omeprazole Assessment & Plan (07/29/2020 7:32 AM BRIDGE TOLL COLLECTOR): Continue per ENT/Pulm. He is responding to BID omeprazole. Will monitor Assessment & Plan (03/27/2020 7:59 AM CDT): Dr. Stokes started him on Pantoprazole. He hasn't noted much difference. Needs to followup to complete workup. Encouraged patient to call and make appointment. Assessment & Plan (09/26/2019 10:26 PM BRIDGE TOLL COLLECTOR): This is a significant, separately identifiable problem that was evaluated and managed on the same day as the wellness exam Less frequent than in the past. Continue the PPI and monitor Rx sent to pharmacy. Assessment & Plan (08/24/2019 9:04 AM BRIDGE TOLL COLLECTOR): Improving with the PPI. Continue PPI and [...] 2018 Assessment & Plan (08/24/2019 9:04 AM BRIDGE TOLL COLLECTOR): Encouraged vaccine. Reviewed risks/ benefits. Patient refuses [...] Description 06/26/2025 9:30 AM CDT Office Visit [address] [place] [address] Nuris Berger PA Hyponatremia (Primary Dx); Psychogenic polydipsia; Chronic hiccups; BMI 23.0-23.9, adult; Generalized body aches; Legally blind; Flu vaccine need 06/21/[address] [address] Nuris Berger PA 06/20/2025 [facility] [address] [address] [place] 06/19/2025 [facility] [address] [address] [place] 06/18/2025 [facility] [address] [address] [place] 06/01/[address] [phone] Nuris Berger PA 05/30/2025 [facility] [address] [address] Hilton James LPN 05/29/2025 Orders Only [facility] Health Information Management [address] [place] [id number] Scanning, Provider 05/02/2025 Results Follow-Up [address] [address] Nuris Berger PA Comprehensive metabolic panel, CBC with auto differential, TSH, Additional followed-up results: 2 05/01/2025 9:00 AM CDT Office Visit [facility] [address] [address] [place] [address] Nuris Berger PA Medicare annual [...] Name Comments Blindness Father Heart attack Father AR Heart disease Father No Known Problems Mother Relation Name Status Comments Father Mother Social History Tobacco Use Types Packs/Day Years Used Date Smoking Tobacco: Former Cigarettes 0.8 40 0 09/1981 - 09/2021 Smokeless Tobacco: Never Tobacco Cessation:Counseling Given: Not Answered Alcohol Use Standard Drinks/Week Comments Yes 2 (1 standard drink = 0.6 oz pur e alcohol) social [facility] Utilities Answer Date Recorded In the past 12 months has th e electric, gas, oil, or water [employer] [place] threatened to shut off services in your [...] often do you attend chur ch or latter-day services? Patient declined 12/03/2023 Do you belong [...] in a custodial (including now)? No 12/03/2023 AUDIT-C Answer Date [...] on file Legal Sex Male 12:22 AM BRIDGE TOLL COLLECTOR Gender Identity Not on file Sexual Orientation [...] Read Routine (OP Routine) 10/03/2024 9:25 AM BRIDGE TOLL COLLECTOR Pulmonary nodules HEPATITIS PANEL, ACUTE Routine 05/03/2022 [...] LAB BLOOD ORDERABLES Final Result [facility] [address] [place] [address] * (ABNORMAL) CBC with auto differential (05/01/2025 [...] BLOOD ORDERABLES Final Result [facility] [address] [place] [address] * TSH (05/01/2025 10:18 AM CDT) TSH 1.22 0.40 - 4.50 mIU/L [facility] Blood 05/01/2025 10:1 8 AM CDT 05/01/2025 10:19 AM CDT Narrative [facility] - 05/02/2025 6:21 AM CDT FASTING:YES FASTING: YES Nuris ROBLES LAB BLOOD ORDERABLES Final Result [facility] [facility] [address] [place] [address] * Vitamin B12 (05/01/2025 10:18 AM CDT) Vitamin B12 1,067 200 - 1,100 pg/mL [facility] Blood 05/01/2025 10:1 8 AM CDT 05/01/2025 10:19 AM CDT Narrative [facility] - 05/02/2025 6:21 AM CDT FASTING:YES FASTING: YES Nuris ROBLES LAB BLOOD ORDERABLES Final Result Performing Organization Address City/[facility]/ZIP Co de Phone Number [employer] [facility] [address] [place] [address] * (ABNORMAL) Comprehensive metabolic panel (05/01/2025 10:18 AM CDT) Glucose 86 65 - 99 mg/dL [employer] [facility] Comment: Fasting reference interval BUN 19 7 - 25 mg/dL [facility] Creatinine 0.80 0.70 - 1.35 mg/dL [email or web address] eGFR 99 > OR = 60 mL/min/1.7 3m2 [facility] BUN/creat ratio SEE NOTE: 6 - 22 (calc) [facility] Comment: Not Reported: BUN and Creatinine are within reference range. Sodium 136 135 - 146 mmol/L [facility] Potassium, pl 5.1 3.5 - 5.3 mmol/L [email or web address] Chloride 102 98 - 110 mmol/L [email or web address] CO2 26 20 - 32 mmol/L [email or web address] Calcium 9.4 8.6 - 10.3 mg/dL [email or web address] Protein, sr 6.8 6.1 - 8.1 g/dL [email or web address] Albumin 3.9 3.6 - 5.1 g/dL [email or web address] GLOBULIN 2.9 1.9 - 3.7 [...] BLOOD ORDERABLES Final Result [facility] [address] [place] [address] * CT Chest WO Contrast F/U Lung Screen Protocol (10/03/2024 9:25 AM BRIDGE TOLL COLLECTOR) Anatomical Region Laterality Modality Chest N/A Computed Tomogra phy 10/03/2024 7:11 PM BRIDGE TOLL COLLECTOR Narrative 10/03/2024 7:17 PM BRIDGE TOLL COLLECTOR EXAM DESCRIPTION: CT CHEST WO CONTRAST F/U [...] Estuardo Ortiz M.D. KT T: Report ID: [id number] [place] Location: [place] [address] Tasia Hoffman MD IMG CT PROCEDURES Final Resul t * Hepatitis panel, acute (05/03/2022 5:40 AM CDT) Hep A IgM Nonreactive Nonreactive [facility] Comment: Interpretive Data: If Hep A IgM Ab is reported as Equivocal, a new sample should be drawn in two weeks for testing. Current interpretive data was last revised on 19. Hep B core IgM Nonreactive Nonreactive [facility] Comment: Interpretive Data If HepB Core IgM Ab is reported as Equivocal, a new sample should be drawn in two weeks for testing. Current interpretive data was last revised on 19. Hep C Ab Nonreactive Nonreactive [facility] Comment: Interpretive Data Nonreactive: Antibodies to [...] - GENERAL OR DERABLES Final Result [facility] [address] [facility] Department [place] [address] * (ABNORMAL) HM COLONOSCOPY (07/14/2021) Jame Mg MD HEALTH MAINTENANCE Edited Result - Final from Last 3 Months or Most Recently Relevant to Health Maintenance Insurance T MEDICARE [facility] [employer] MEDICARE GOLD Advance Directives For more information, please contact: [phone] * Full Code (Latest Code Status on [...] 10:34 PM 11/16/2022 9:56 PM Care Teams Dishwasher Preparer Relationship Specialty Start Date End Date Nuris Berger PA [address] [facility] [address] [place] [address] PCP - General Internal Medicine 12/28/18 Jonatan Stokes MD [address] [place] [address] Consulting Physician Otolaryngology 03/27/20 Irma Bajwa MD [address] [place] [address] Consulting Physician Neurology 05/07/22
--- OUTSIDE RECORDS SUMMARY | 2025-07-26 20:23 | XMS_ITS | Encounter Summary ---
Author Organization [facility] Healthcare Address [address] [place] [address] Care Team Providers Care Hand Collator Name Role Phone Nuris Berger Primary Care Provider [phone] Jonatan Stokes MD Unavailable [phone] Irma Bajwa MD Unavailable [phone] Ayla Dugan LPN Unavailable [phone] Brooke Plaza MA Unavailable Unavailable Encounter Details Date Type Department Care Team (Late st Contact Info) Description 12/26/2024 Orders Only [facility] Health Information Management [address] [place] [address] Scanning, Provider Social History Tobacco Use Types Packs/Day Years Used Date Smoking Tobacco: Former Cigarettes 0.8 40 0 09/1981 - 09/2021 Smokeless Tobacco: Never Alcohol Use Standard Drinks/Week Comments Yes 0 (1 standard drink = 0.6 oz pur e alcohol) social [facility] Utilities Answer Date Recorded In the past 12 months has [employer], gas, oil, or water company threatened [...] 12/03/2023 How often do you attend [facility] or denominational services? 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 Gender Identity Not on file Sexual Orientation [...] on filedocumented in this encounter Care Teams Hand Collator Relationship Specialty Start Date End Date Nuris Berger PA [address] [facility] [address] [place] [address] PCP - General Internal Medicine 12/28/18 Jonatan Stokes MD [address] [place] [address] Consulting Physician Otolaryngology 03/27/20 Irma Bajwa MD [address] [facility] [place] [address] Consulting Physician Neurology 05/07/22 Ayla Dugan LPN [address] [place] [address] [address] [place] [address] Biomedical Analytical Scientist 03/30/25 03/30/25 Brooke Plaza MA [address] [facility] [address] [place] [address] ACO Care Order Management Specialist 06/18/25 06/19/25 documented as of this encounter
--- OUTSIDE RECORDS SUMMARY | 2025-07-26 20:23 | XMS_ITS | Encounter Summary ---
Author Organization [facility] Healthcare Address [address] [place] [address] Care Team Providers Care Film Process Operator Name Role Phone Nuris Berger Primary Care Provider [phone] Jonatan Stokes MD Unavailable [phone] Irma Bajwa MD Unavailable [phone] Ayla Dugan LPN Unavailable [phone] Brooke Plaza MA Unavailable Unavailable Encounter Details Date Type Department Care Team (Late st Contact Info) Description 12/21/2024 Orders Only [facility] Health Information Management [address] [place] [address] Scanning, Provider Social History Tobacco Use Types Packs/Day Years Used Date Smoking Tobacco: Former Cigarettes 0.8 40 0 09/1981 - 09/2021 Smokeless Tobacco: Never Alcohol Use Standard Drinks/Week Comments Yes 0 (1 standard drink = 0.6 oz pur e alcohol) social [facility] Utilities Answer Date Recorded In the past 12 months has [employer] electric, gas, oil, or water company threatened [...] How often do you attend [facility] or holiness services? Patient declined 12/03/2023 Do you belong to any clubs o r organizations such as adventism groups, unions, fraternal or athletic groups, or [...] on file Legal Sex Male 12:22 AM BRYOLOGIST Gender Identity Not on file Sexual Orientation [...] on filedocumented in this encounter Care Teams Film Process Operator Relationship Specialty Start Date End Date Nuris Berger PA [address] [facility] [address] [place] [address] PCP - General Internal Medicine 12/28/18 Jonatan Stokes MD [address] [place] [address] Consulting Physician Otolaryngology 03/27/20 Irma Bajwa MD [facility] [address] Consulting Physician Neurology 05/07/22 Ayla Dugan LPN [address] [place] [address] [address] [place] [address] Fell Cutter 03/30/25 03/30/25 Brooke Plaza MA [address] [facility] [address] [place] [address] ACO Care Slag Expander 06/18/25 06/19/25 documented as of this encounter
--- OUTSIDE RECORDS SUMMARY | 2025-07-26 20:23 | XMS_ITS | Encounter Summary ---
Author Organization [facility] Healthcare Address [address] [place] [address] Care Team Providers Care Well Puller Head Name Role Phone Nuris Berger Primary Care Provider [phone] Jonatan Stokes MD Unavailable [phone] Irma Bajwa MD Unavailable [phone] Ayla Dugan LPN Unavailable [phone] Brooke Plaza MA Unavailable Unavailable Encounter Details Date Type Department Care Team (Late st Contact Info) Description 03/26/2025 Orders Only [facility] Health Information Management [address] [place] [address] Scanning, Provider Social History Tobacco Use Types Packs/Day Years Used Date Smoking Tobacco: Former Cigarettes 0.8 40 0 09/1981 - 09/2021 Smokeless Tobacco: Never Alcohol Use Standard Drinks/Week Comments Yes 0 (1 standard drink = 0.6 oz pur e alcohol) social [facility] Utilities Answer Date Recorded In the past 12 months has [employer], gas, oil, or water company threatened [...] week 12/03/2023 How often do you attend [facility] or mormonism services? 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 Gender Identity Not on file Sexual Orientation [...] on filedocumented in this encounter Care Teams Well Puller Head Relationship Specialty Start Date End Date Nuris Berger PA [address] [facility] [address] [place] [address] PCP - General Internal Medicine 12/28/18 Jonatan Stokes MD [address] [place] [address] Consulting Physician Otolaryngology 03/27/20 Irma Bajwa MD [address] [facility] [place] [address] Consulting Physician Neurology 05/07/22 Ayla Dugan LPN [address] [place] [address] [address] [place] [address] Cash Accountant 03/30/25 03/30/25 Brooke Plaza MA [address] [facility] [address] [place] [address] ACO Care Supervisor Sound Technician 06/18/25 06/19/25 documented as of this encounter
--- OUTSIDE RECORDS SUMMARY | 2025-07-26 20:23 | XMS_ITS | Clinical Summary ---
Author Organization [facility] Address [facility] [place] [address] Care Team Providers Care Content Development Specialist Name Role Phone Nuris Berger Primary Care Provider [phone] Allergies No known active allergies Medications albuterol [...] Comments Blood Pressure 120/62 09/04/2021 8:52 AM CIGARETTE AND FILTER CHIEF INSPECTOR Pulse 82 09/04/2021 8:52 AM CIGARETTE AND FILTER CHIEF INSPECTOR Temperature 36.3 C (97.4 F) 09/04/2021 8:52 AM CIGARETTE AND FILTER CHIEF INSPECTOR Respiratory Rate 16 09/04/2021 8:52 AM CIGARETTE AND FILTER CHIEF INSPECTOR Oxygen Saturation 97% 09/04/2021 8:52 AM CIGARETTE AND FILTER CHIEF INSPECTOR Inhaled Oxygen Concentration - - Weight 64.4 kg (142 lb) 09/04/2021 8:52 AM CIGARETTE AND FILTER CHIEF INSPECTOR Height 172.7 cm (5' 8) 09/04/2021 8:52 AM CIGARETTE AND FILTER CHIEF INSPECTOR Body Mass Index 21.59 09/04/2021 8:52 AM CIGARETTE AND FILTER CHIEF INSPECTOR Plan of Treatment Health Maintenance Due Date [...] this topic Insurance [employer] MEDICARE Care Teams Content Development Specialist Relationship Specialty Start Date End Date Nuris Berger PA [address] [place] [address] PCP - General PHYSICIAN TOOLS DEVELOPER 06/09/21
[2025-07-27] VITALS: BP 106/48; PULSE 90; PULSE 95; RESP 18; TEMP 36.9; O2SAT 98
[2025-07-27 04:00] VITALS: BP 121/69; PULSE 82; PULSE 92; RESP 18; TEMP 36.6; O2SAT 98
[2025-07-27 05:21] LABS: Hematocrit 29.0 % (42.0-52.0); Hemoglobin 9.6 g/dL (14.0-18.0); Immature Granulocyte Percent A 0.4 % (0-0.5); Lymphocytes Absolute Auto 0.86 K/mm3 (0.9-3.2); Mean Corpuscular HGB Conc 33.1 g/dl (32-36); Mean Corpuscular Hemoglobin 29.0 pg (26-34); Mean Corpuscular Volume 87.6 fl (80-100); Nucleated Red Blood Cells Absolute Auto 0.000 K/mm3 (0.0-0.012); Nucleated Red Blood Cells Perc 0.0 % (0.0-0.2); Platelet Count Result 212 k/mm3 (150-375); Red Blood Count 3.31 M/mm3 (4.6-6.20); White Blood Count 8.2 K/mm3 (4.5-10.0)
[2025-07-27 05:43] LABS: Anion Gap 9 mmol/L (4-12); Blood Urea Nitrogen 10 mg/dL (9-20); Calcium 9.3 mg/dL (8.4-10.2); Carbon Dioxide 24 mmol/L (22-30); Chloride 101 mmol/L (98-107); Estimated CRCL calculation 82 ml/min; Estimated Glomerular Filt Rate > 60; Glucose 104 mg/dL (65-110); Potassium 4.3 mmol/L (3.4-5.0); Sodium 134 mmol/L (137-145)
[2025-07-27 08:00] VITALS: BP 113/61; PULSE 100; PULSE 85; RESP 16; TEMP 36.7; O2SAT 98
[2025-07-27] MEDS: FLUTICASONE/SALMETEROL 45-21 MCG INHALER 1 PUFF 2 PUFF INHALATION (08:02)
[2025-07-27 08:03] VITALS: O2SAT 96
[2025-07-27] MEDS: CYANOCOBALAMIN 1,000 MCG TABLET 2000 MCG PO (08:38)
[2025-07-27] MEDS: GABAPENTIN 300 MG CAPSULE PO (08:38)
[2025-07-27] MEDS: CHOLECALCIFEROL (VITAMIN D3) 25 MCG (1,000 UNITS) TABLET PO (08:38)
[2025-07-27] MEDS: ASPIRIN 81 MG ENTERIC TABLET PO (08:38)
[2025-07-27] MEDS: PRAVASTATIN SODIUM 20 MG TABLET 80 MG PO (08:38)
[2025-07-27] MEDS: LOSARTAN POTASSIUM 50 MG TABLET PO (08:38)
[2025-07-27] MEDS: FAMOTIDINE 20 MG TABLET PO (08:38)
[2025-07-27] MEDS: DORZOLAMIDE/TIMOLOL OPHTH SOL 10 ML BOTTLE 1 DROP LEFT EYE ×3 (08:39→16:54)
--- NOTE | 2025-07-27 10:22 | P.DS_ITS ---
DS: Admitting Diagnosis Discharge Date 07/27/2025 Admitting Diagnosis hyponatremia/ acute on chronic hiccups DS: Discharge Diagnosis Discharge Diagnosis (1) Hyponatremia: Code(s): E87.1 - Hypo-osmolality and hyponatremia Status: Acute (2) Hiccup: Code(s): R06.6 - Hiccough Status: Chronic (3) Hypertension: Qualifiers: Hypertension type: primary hypertension Qualified Code(s): I10 - Essential (primary) hypertension Code(s): I10 - Essential (primary) hypertension Status: Chronic (4) Hyperlipidemia: Qualifiers: Hyperlipidemia type: unspecified Qualified Code(s): E78.5 - Hyperlipidemia, unspecified Code(s): E78.5 - Hyperlipidemia, unspecified Status: Chronic (5) Asthma-COPD overlap syndrome: Code(s): J44.9 - Chronic obstructive pulmonary disease, unspecified Status: Acute DS: Summary Hospital Course Reason for hospitalization: hyponatremia Hospital Course: Admission: Patient is a 64-year-old male who past medical history of COPD, normocytic anemia, glaucoma now legally blind, hyperlipidemia, HTN, 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 The patient has had chronic hiccups for the past 5 years. He attempts to remedy his hiccups by drinking water to the point he eventually becomes lightheaded and presents to the ED hyponatremic. Patient has been educated multiple times to caution water intake when attempting to get rid of hiccups. Patient further admits his attempts to keep him from drinking so much water as well. In the ED: Lab significant for WBC 11.7, normocytic anemia. Sodium 121, chloride 88, BUN 7, creatinine 0.68. UA negative for signs of infection. ECG with sinus rhythm. QTC 441 Hospital Course: Patient with history of chronic hyponatremia due to increased fluid intake in attempts to stop his hiccups. Patient's initial sodium level was 129 on admission placed on fluid restriction inserted on Thorazine for his chronic hiccups admitted to the medical unit for observation. Patient reports he had not been taking his Thorazine outpatient he received 2 doses of Thorazine inpatient with resolution of hiccups. I educated on medication compliance as well as the need for fluid restriction. Patient no longer with hiccups during assessment at bedside and sodium back to 134. Patient denied any further dizziness and feeling back to his baseline Patient acknowledged agreed discharge plan was discharged to home. Once again educated a 1.5 L fluid restriction and to take his oral Thorazine when he has exacerbation of hiccups. Status at Discharge Functional status at discharge: independent ambulation Overall status at discharge: patient is back to baseline Time Spent with Patient Time attestation: Total time spent providing and/or coordinating discharge services: Time spent: Greater than 30 minutes Exam Narrative: GENERAL: non-toxic appearing, in no acute distress. HEAD: Normocephalic, atraumatic. EYES: Bilateral glaucoma resulting in blindness EARS: Bilateral hearing aids intact; hard of hearing NOSE: Normal no drainage. THROAT: Pharynx clear, no exudate. NECK: Trachea midline. No adenopathy, no masses. RESPIRATORY: Airway patent, respirations nonlabored. CTA. CARDIOVASCULAR: Regular rate and rhythm GASTROINTESTINAL: Abdomen is soft and nontender. No organomegaly. Bowel sounds normal in all quadrants. GENITOURINARY: Defer MUSCULOSKELETAL: Moves all extremities. No gross deformities. SKIN: Warm, dry, normal color. NEURO: A&O X4. Speech clear. Hiccups during exam PSYCHIATRIC: Normal interaction DS: Data Data Completed and Pending Labs on day of discharge: Labs from last 24 hours 07/27/25 07/26/25 07/26/25 04:50 18:35 13:41 WBC 8.2 RBC 3.31 L Hgb 9.6 L Hct 29.0 L MCV 87.6 MCH 29.0 MCHC 33.1 RDW 15.0 H Plt Count 212 MPV 11.1 H Immature Gran % (Auto) 0.4 Neut % (Auto) 81.2 H Lymph % (Auto) 10.5 L Kinney % (Auto) 7.3 Eos % (Auto) 0.5 Baso % (Auto) 0.1 L Lymph # (Auto) 0.86 L Kinney # (Auto) 0.6 Eos # (Auto) 0.0 Baso # (Auto) 0.0 Abs Immat Gran (auto) 0.03 Absolute Neuts (auto) 6.6 Absolute Nucleated RBC 0.000 Nucleated RBC % 0.0 Sodium 134 L 129 L Potassium 4.3 4.4 Chloride 101 100 Carbon Dioxide 24 19 L Anion Gap 9 10 BUN 10 7 L Creatinine 0.75 0.68 L Estim Creat Clear Calc 82 89 Estimated GFR > 60 > 60 Glucose 104 155 H Calcium 9.3 9.0 Total Bilirubin AST ALT Alkaline Phosphatase Total Protein Albumin Lipase Urine Color Yellow Urine Appearance Clear Urine pH 6.5 Ur Specific Zimmerman 1.003 Urine Protein Negative Urine Glucose (UA) Negative Urine Ketones 1+ H Ur Blood (Man) Trace Urine Nitrate Negative Urine Bilirubin Negative Urine Urobilinogen 0.2 Add Ur Microanalysis Reviewed Leukocyte Esterase Rfl Negative Urine RBC 0-2 Urine WBC 0-5 Ur Squamous Epith Cells None seen Urine Bacteria None seen Urine Casts 0-2 07/26/25 12:56 WBC 11.7 H RBC 3.25 L Hgb 9.6 L Hct 28.4 L MCV 87.4 MCH 29.5 MCHC 33.8 RDW 14.5 Plt Count 198 MPV 10.7 H Immature Gran % (Auto) 0.3 Neut % (Auto) 85.4 H Lymph % (Auto) 8.8 L Kinney % (Auto) 5.0 Eos % (Auto) 0.3 Baso % (Auto) 0.2 Lymph # (Auto) 1.03 Kinney # (Auto) 0.6 Eos # (Auto) 0.0 Baso # (Auto) 0.0 Abs Immat Gran (auto) 0.03 Absolute Neuts (auto) 10.0 H Absolute Nucleated RBC 0.000 Nucleated RBC % 0.0 Sodium 121 L Potassium 4.7 Chloride 88 L Carbon Dioxide 23 Anion Gap 10 BUN 7 L D Creatinine 0.68 L Estim Creat Clear Calc 89 Estimated GFR > 60 Glucose 98 Calcium 9.3 Total Bilirubin 0.7 AST 40 ALT 12 Alkaline Phosphatase 53 Total Protein 7.6 Albumin 4.4 Lipase 66 Urine Color Urine Appearance Urine pH Ur Specific Zimmerman Urine Protein Urine Glucose (UA) Urine Ketones Ur Blood (Man) Urine Nitrate Urine Bilirubin Urine Urobilinogen Add Ur Microanalysis Leukocyte Esterase Rfl Urine RBC Urine WBC Ur Squamous Epith Cells Urine Bacteria Urine Casts Discharge Plan Discharge Attending physician on discharge: Swapnil Briones Oca Consulting providers: Barb Eaton Discharging Clinician: Barb Eaton Anticipated Discharge Date/Time: 07/27/25 10:24 Patient Disposition: Home Activity: may shower and as tolerated Diet: heart healthy Discharge Instructions: 1). Hyponatremia * Recommend fluid restriction 1.5ML of fluids per day * Follow-up with primary care for close monitoring of sodium levels outpatient 2). Intractable hiccups * I have prescribed Thorazine take up to 4 times daily as needed How can you care for yourself at home? ? Keep track of any new symptoms or changes in your symptoms. ? Rest until you feel better. ? Be safe with medicines. Take your medicines exactly as prescribed. Call your doctor if you think you are having a problem with your medicine. ? Do not drive after taking a prescription pain medicine. ? Ensure to follow-up with primary care physician as indicated and provide updated medication list provided to you at discharge. When should you call for help? Call 911 anytime you think you may need emergency care. For example, call if: ? You passed out (lost consciousness). Call your doctor now or seek immediate medical care if: ? You have new symptoms like fever, difficulty breathing, Chest pain, vomiting, or rash. ? You have new or different pain. ? You are confused and are having trouble thinking clearly. ? Your symptoms are getting worse. Watch closely for changes in your health, and be sure to contact your doctor if: ? You do not get better as expected. Patient Instructions: Antibiotic Form, Hyponatremia (DC), Hiccups (DC) Patient Language: Lao Stand Alone Forms: General Discharge Information Follow-up/Referrals: Celine,TRAVIS Lawler [Primary Care Provider, Unknown] - 2 Weeks Discharge Medications: New chlorpromazine 25 mg Tablet 25 mg PO Q6H PRN (Reason: Hiccups) Qty: 60 0RF Continued baclofen 5 mg tablet 5 mg PO BID losartan 50 mg tablet 50 mg PO DAILY pravastatin 80 mg tablet 80 mg PO DAILY montelukast 10 mg tablet 10 mg PO HS albuterol sulfate 90 mcg/actuation HFA aerosol inhaler 1 inh inhalation QID PRN (Reason: shortness of breath or wheezing) Qty: 8.5 0RF dorzolamide-timolol 22.3-6.8 mg/mL drops 1 drp LEFT EYE TID gabapentin 300 mg capsule 300 mg PO DAILY budesonide-formoterol 80-4.5 mcg/actuation HFA aerosol inhaler 2 puff INHALATION Q12H famotidine 20 mg Tablet 20 mg PO Q12HR Qty: 60 0RF cyanocobalamin (vitamin B-12) 100 mcg Tablet 2,000 mcg PO DAILY cholecalciferol (vitamin D3) [Vitamin D3] 25 mcg (1,000 unit) Capsule 25 mcg PO DAILY chlorpromazine 25 mg Tablet 25 mg PO Q6H PRN (Reason: Hiccups) Qty: 30 0RF aspirin [Adult Aspirin Regimen] 81 mg tablet,delayed release (DR/EC) 81 mg PO DAILY Date of admission: 07/26/25 15:02 Primary Care Provider: Celine,Nuris Admitting Provider: Cecelia Rojas Attending physician on admission: Cecelia Rojas Condition: Stable Quality VTE Prophylaxis VTE prophylaxis: mechanical ordered -Patient's previous records reviewed on admission -ER notes reviewed in detail on admission -discussed all findings and current treatment plan with patient/Family/POA -Consultations reviewed for recommendations -Patient's disposition for safe discharge discussed with correctional case records supervisor -radiology imaging, EKG and test results I have personally reviewed and interpreted unless otherwise specified Dictation performed by [employer] direct speech recognition software, therefore starchmaker variants and typographical errors may occur. Hospitalist MIPS Heart Failure (Exclusion) Patient has history of Heart Transplant or Left Ventricular Assistive Device?: No IF YES, STOP HERE Heart Failure (Qualifier) Patient has current or prior documentation of LVEF less than or equal to 40%, or mod/servere depressed LVSF?: No IF NO, STOP HERE
[2025-07-27 12:00] VITALS: PULSE 94
[2025-07-27 16:00] VITALS: PULSE 80
== END 2025-07-27 17:27 | disposition home or self-care (01) | DRG 641 ==
LOC: ANHED 14:02 → ANH2MED 16:15
PROVIDERS: Nurse Practitioner Adult Health; Physician Assistant; Admitting Provider Family Medicine; Emergency Provider Student in an Organized Health Care Education/Training Program; PCP Physician Assistant; Visit Provider Nurse Practitioner Family
DX: E87.1 Hypo-osmolality and hyponatremia (principal); R06.6 Hiccough; I10 Essential (primary) hypertension; E78.5 Hyperlipidemia, unspecified; J44.9 Chronic obstructive pulmonary disease, unspecified; H40.9 Unspecified glaucoma; H54.8 Legal blindness, as defined in USA; R63.1 Polydipsia; K44.9 Diaphragmatic hernia without obstruction or gangrene; D63.8 Anemia in other chronic diseases classified elsewhere; Z87.891 Personal history of nicotine dependence
CPT/HCPCS: 36415; 80048; 80053; 81001; 83690; 85025; 93005; 94640; 96360; 99285; A9270; J7030

== ENCOUNTER 2025-08-10 05:53 | Inpatient (IN) | payer MEDICARE, SELFPAY ==
[2025-08-10] VITALS (16 sets, daily range): BP systolic 100–163; BP diastolic 60–77; PULSE 79–96; RESP 18–26; TEMP 36.3–37.2; O2SAT 96–100; BMI 24.1
--- NOTE | ~2025-08-10 | XR_ITS ---
Examination: XR chest 1V portable Clinical History: cough Comparison: 06/19/2025 Technique: Portable AP Findings: Heart size normal. Minimal linear left basilar atelectasis. Lungs otherwise clear. No acute bony abnormality. IMPRESSION: 1. No acute cardiopulmonary findings given portable technique. Reviewed, dictated and finalized at location R. ANALYST
--- NOTE | 2025-08-10 05:56 | PC.NURSE ---
states that she has to go to work and will not be available via cell phone. States no one else will be available to pick him up if he is discharged and she will be unavailable until around 1700 today. States that she can be reached at the [facility] in [place] if needed.
--- OUTSIDE RECORDS SUMMARY | 2025-08-10 05:56 | XMS_ITS | Encounter Summary ---
Author Organization [facility] Healthcare Address [address] [place] [address] Care Team Providers Care Code Enforcement Officer Name Role Phone Nuris Berger Primary Care Provider [phone] Jonatan Stokes MD Unavailable [phone] Irma Bajwa MD Unavailable [phone] Brooke Plaza MA Unavailable Unavailable Roxana Fernandez MA Unavailable [phone] Encounter Details Date Type Department Care Team (Late st Contact Info) Description 05/29/2025 Orders Only [facility] Health Information Management [address] [place] [address] Scanning, Provider Social History Tobacco Use Types Packs/Day Years Used Date Smoking Tobacco: Former Cigarettes 0.8 40 0 09/1981 - 09/2021 Smokeless Tobacco: Never Alcohol Use Standard Drinks/Week Comments Yes 2 (1 standard drink = 0.6 oz pur e alcohol) social [facility] Utilities Answer Date Recorded In the past 12 months has [employer], gas, oil, or water company threatened [...] do you attend [facility] or mandaen services? Patient declined 12/03/2023 Do [...] on file Legal Sex Male 12:22 AM CSO Gender Identity Not on file Sexual Orientation [...] on filedocumented in this encounter Care Teams Code Enforcement Officer Relationship Specialty Start Date End Date Nuris Berger PA [address] [facility] [address] [place] [address] PCP - General Internal Medicine 12/28/18 Jonatan Stokes MD [address] [place] [address] Consulting Physician Otolaryngology 03/27/20 Irma Bajwa MD [address] [facility] [place] [address] Consulting Physician Neurology 05/07/22 Brooke Plaza MA [address] [facility] [address] [place] [address] ACO Care Pest Control Pilot 06/18/25 06/19/25 Roxana Fernandez MA [address] [place] [address] ACO Care Pest Control Pilot 07/31/25 07/31/25 documented as of this encounter
--- OUTSIDE RECORDS SUMMARY | 2025-08-10 05:56 | XMS_ITS | Clinical Summary ---
Author Organization [facility] [address] [facility] Address [address] [place] [address] Care Team Providers Care Stock Blender Name Role Phone Nuris Berger Primary Care Provider [phone] Jonatan Stokes MD Unavailable [phone] Irma Bajwa MD Unavailable Allergies Active Allergy [...] (81 mg total) by mouth daily 4 Active tobramycin-dexA METHasone (TOBRADEX) ophthalmic solution INSTILL 1 DROP LEFT EYE EVERY NIGHT AT BEDTIME 4 Active prednisoLONE acetate (PRED FORTE) 1 % ophthalmic suspension 4 Active polymyxin B-trimethoprim (POLYTRIM) ophthalmic solution INSTILL 1 DROP IN LEFT EYE FOUR TIMES DAILY 4 Active budesonide-form oteroL (SYMBICORT) 80-4.5 mcg/actuation inhalerIndicati ons:Mild persistent asthma without complication,Ch ronic obstructive pulmonary disease, unspecified COPD type ([facility]) INHALE 2 PUFFS BY MOUTH TWICE DAILY. RINSE MOUTH WITH WATER AFTER USE. DO NOT SWALLOW 30.6 g 1 4 Active pravastatin (PRAVACHOL) 80 mg tablet Take 1 tablet (80 mg total) by mouth daily 90 tablet 1 5 Active chlorproMAZINE (THORAZINE) 25 mg tablet Take 1 tablet (25 mg total) by mouth 4 (four) times a day 120 tablet 1 5 Active montelukast (SINGULAIR) 10 mg tabletIndicatio ns:Uncomplicate d asthma, unspecified asthma severity, unspecified whether persistent TAKE 1 TABLET(10 MG) BY MOUTH EVERY NIGHT 90 tablet 2 5 Active gabapentin (NEURONTIN) 300 mg capsuleIndicati ons:Chronic hiccups TAKE 1 CAPSULE(300 MG) BY MOUTH THREE TIMES DAILY 300 capsule 5 Active metoclopramide (REGLAN) 10 mg tablet TAKE 1 TABLET BY MOUTH FOUR TIMES DAILY 120 tablet 1 5 Active baclofen (LIORESAL) 10 mg tabletIndicatio ns:Low back pain, unspecified back pain laterality, unspecified chronicity, unspecified whether sciatica present TAKE 1 TABLET(10 MG) BY MOUTH TWICE DAILY 60 tablet 1 Active losartan (COZAAR) 50 mg tablet Take 1 tablet (50 mg total) by mouth daily Active famotidine (PEPCID) 20 mg tabletIndicatio ns:gastroesopha geal reflux disease Take 1 tablet (20 mg total) by mouth every 12 (twelve) hours 180 tablet 1 Active famotidine (PEPCID) 20 mg tablet Take 1 tablet (20 mg total) by mouth every 12 (twelve) hours 07/31/20 Discontinu ed(Reorder ) Active Problems Patient Care Coordination No te [...] 11/24/2023 Assessment & Plan (11/19/2024 11:45 PM TAVERN OPERATOR): Supplement Assessment & Plan (05/20/2024 7:36 PM CDT): Supplement Fatigue 12/12/2022 Assessment & Plan (05/20/2024 7:37 PM CDT): Probably multifactorial. Check labs and followup to re-evaluate Assessment & Plan (11/24/2023 10:35 AM TAVERN OPERATOR): Probably multifactorial. Check labs and followup [...] 01/16/2022 Assessment & Plan (11/19/2024 11:44 PM TAVERN OPERATOR): Chronic hiccups for 5+ years Has [...] to the ER. ER recommended referral to [place] but patient states he can't go to [...] weeks Assessment & Plan (11/24/2023 10:34 AM TAVERN OPERATOR): Patient has persistent chronic hiccups that [...] monitor Assessment & Plan (08/15/2023 5:01 PM TAVERN OPERATOR): Chronic hiccups for years. Has tried multiple interventions along with multiple workups from specialists including Neurology pulmonology and GI. Continue current regimen. Stressed importance of limiting water intake when he has the hiccups spells as this has been leading to hyponatremia requiring hospitalization. Assessment & Plan (08/11/2023 8:45 AM TAVERN OPERATOR): Patient with chronic hiccups. Have had [...] levels. Assessment & Plan (08/15/2022 6:45 PM TAVERN OPERATOR): Patient has consulted with most multiple [...] hiccups. Assessment & Plan (08/15/2023 5:02 PM TAVERN OPERATOR): Chronic hiccups for years. Has tried multiple interventions along with multiple workups from specialists including Neurology pulmonology and GI. Continue current regimen. Stressed importance of limiting water intake when he has the hiccups spells as this has been leading to hyponatremia requiring hospitalization. Assessment & Plan (08/11/2023 8:46 AM TAVERN OPERATOR): Hyponatremia secondary to water intake with [...] 07/14/2019 Assessment & Plan (11/19/2024 11:44 PM TAVERN OPERATOR): Continue PPI p.r.n. Assessment & Plan (05/20/2024 7:35 PM CDT): Continue pantoprazole p.r.n. Assessment & Plan (11/24/2023 10:33 AM TAVERN OPERATOR): Continue pantoprazole p.r.n. Assessment & Plan (04/08/2023 8:48 PM CDT): Continue PPI p.r.n. Assessment & Plan (12/12/2022 9:43 PM CDT): Insert PPI Assessment & Plan (08/15/2022 6:45 PM TAVERN OPERATOR): Continue PPI prn Assessment & Plan (02/09/2021 8:17 PM CDT): Continue PPI Assessment & Plan (07/29/2020 7:33 AM TAVERN OPERATOR): Continue PPI Assessment & Plan (03/27/2020 8:01 AM CDT): Dr. Stokes changed him from omeprazole to Pantoprazole for the hiccups. Pt hasn't noted any difference in GERD sxs (still well controlled) or hiccups. Assessment & Plan (09/26/2019 7:38 AM TAVERN OPERATOR): Continue PPI Assessment & Plan (07/14/2019 [...] LDCT Assessment & Plan (11/19/2024 11:44 PM TAVERN OPERATOR): Patient with allergies and COPD. Continue Singulair albuterol and Symbicort. Follows with Dr. Valdes. Assessment & Plan (05/20/2024 7:35 PM CDT): Continue per Dr. Valdes. Continue with his Symbicort and albuterol inhalers. Low-dose CT will be scheduled for June 16, 2024. Assessment & Plan (11/24/2023 10:33 AM TAVERN OPERATOR): COPD. Continue per Dr. Hammond his billboard poster Continue Symbicort Singulair and albuterol p.r.n. Assessment & Plan (04/08/2023 8:48 PM CDT): Encouraged smoking cessation. Continue per Dr. Hammond pulmonology. He is on albuterol Symbicort and Singulair Assessment & Plan (12/12/2022 9:43 PM CDT): Stop smoking. Continue per Pulmonary. Continue Symbicort Singulair and albuterol. Continue monitoring low-dose CTs as instructed Assessment & Plan (08/15/2022 6:44 PM TAVERN OPERATOR): Stop smoking. Continue current plan per Pulmonary Assessment & Plan (08/01/2021 9:34 PM TAVERN OPERATOR): Continue per Pulmonary Dr. Valdes Assessment & Plan (02/09/2021 8:15 PM CDT): Stop smoking. Continue per Dr. Valdes Assessment & Plan (07/29/2020 7:32 AM TAVERN OPERATOR): Continue per Pulm Assessment & Plan (03/27/2020 8:00 AM CDT): Stop smoking. He declines starting inhalers or referral to Pulmonary Assessment & Plan (09/26/2019 10:27 PM TAVERN OPERATOR): This is a significant, separately identifiable [...] order Assessment & Plan (07/29/2020 7:33 AM TAVERN OPERATOR): Needs to repeat ---Dr. Valdes has already ordered Assessment & Plan (03/27/2020 8:00 AM CDT): 06/2019 LDCT Several 2-3mm nodules, probable benign LungRADs 2 --- repeat 06/2020 Assessment & Plan (09/26/2019 10:26 PM TAVERN OPERATOR): 06/2019 LDCT Several 2-3mm nodules, probable benign LungRADs 2 --- repeat 06/2020 Hyperplastic rectal polyp 05/20/2019 Overview (05/20/2019): Colonoscopy 01/29/2012 at [facility]--->2021 Assessment & Plan (05/28/2019 7:33 PM CDT): Recvd colonoscopy and due to repeat in 2021 Hiatal hernia 05/20/2019 Mixed hyperlipidemia 05/20/2019 Assessment & Plan (11/19/2024 11:45 PM TAVERN OPERATOR): Encouraged patient to follow low fat/low [...] 80 Assessment & Plan (11/24/2023 10:34 AM TAVERN OPERATOR): Encouraged patient to follow low fat/low chol diet like the Mediterranean diet. Increase good fats in the diet. Increase exercise. Monitor labs as needed. Continue pravastatin 80 Assessment & Plan (08/15/2023 5:03 PM TAVERN OPERATOR): Encouraged patient to follow low fat/low [...] Zetia Assessment & Plan (08/01/2021 9:33 PM TAVERN OPERATOR): Encouraged patient to follow fat/low chol [...] statin Assessment & Plan (07/29/2020 7:34 AM TAVERN OPERATOR): Encouraged patient to follow fat/low chol diet like the Mediterranean diet. Increase good fats in the diet. Increase exercise. Monitor labs as needed. Assessment & Plan (03/27/2020 8:02 AM CDT): Encouraged patient to continue low fat/low chol diet. Continue exercise. Increase good fats in the diet. Monitor labs as needed. Stable with zetia and pravastatin Assessment & Plan (09/26/2019 7:39 AM TAVERN OPERATOR): Encouraged patient to continue low fat/low [...] change Assessment & Plan (08/15/2023 5:03 PM TAVERN OPERATOR): Patient is legally blind. Continue with Ophthalmology Assessment & Plan (04/08/2023 8:47 PM CDT): No change Assessment & Plan (03/27/2020 8:02 AM CDT): No change Assessment & Plan (09/26/2019 7:39 AM TAVERN OPERATOR): No change Assessment & Plan (05/28/2019 7:35 PM CDT): No change Cigarette smoker 05/20/2019 Assessment & Plan (08/11/2023 8:45 AM TAVERN OPERATOR): Encouraged smoking cessation. Discussed 3 minutes. Reviewed options for assistance with cessation. Reviewed watermaster sequela associated with smoking. Pt declines assistance [...] desire. Assessment & Plan (08/15/2022 6:44 PM TAVERN OPERATOR): Encouraged smoking cessation. Discussed 3 minutes. [...] desire. Assessment & Plan (08/01/2021 9:33 PM TAVERN OPERATOR): Encouraged smoking cessation. Discussed 3 minutes. [...] cessation. Reviewed half-way sequela associated with smoking. He is slowing down. Offered assistance. May call if decides he wants help Assessment & Plan (07/29/2020 7:34 AM TAVERN OPERATOR): Encouraged smoking cessation. Discussed 3 minutes. Reviewed options for assistance with cessation. Reviewed watermaster sequela associated with smoking. Pt declines assistance [...] desire. Assessment & Plan (09/26/2019 7:39 AM TAVERN OPERATOR): Encouraged smoking cessation. Discussed 3 minutes. Reviewed options for assistance with cessation. Reviewed half-way sequela associated with smoking. Pt declines assistance at this time but may contact the office at anytime for further help as they desire. Assessment & Plan (07/14/2019 7:05 PM CDT): Encouraged smoking cessation. Discussed 3 minutes. Reviewed options for assistance with cessation. Reviewed watermaster sequela associated with smoking. Pt declines assistance [...] 05/20/2019 Assessment & Plan (11/19/2024 11:45 PM TAVERN OPERATOR): Pre-diabetes/hyperglycemia is a precursor to Dm. [...] diabetes. Assessment & Plan (11/24/2023 10:34 AM TAVERN OPERATOR): Pre-diabetes/hyperglycemia is a precursor to Dm. Stressed importance of working on diet (decrease your simple sugars and one carbohydrate with each meal) and increase you exercise to achieve weight loss and this will help prevent you from progressing to diabetes. Assessment & Plan (08/15/2023 5:03 PM TAVERN OPERATOR): Pre-diabetes/hyperglycemia is a precursor to Dm. [...] diabetes. Assessment & Plan (08/01/2021 9:33 PM TAVERN OPERATOR): Pre-diabetes/hyperglycemia is a precursor to Dm. [...] diabetes. Assessment & Plan (07/29/2020 7:34 AM TAVERN OPERATOR): Pre-diabetes is a precursor to Dm. [...] labs Assessment & Plan (09/26/2019 10:27 PM TAVERN OPERATOR): This is a significant, separately identifiable [...] 025 Assessment & Plan (11/19/2024 11:45 PM TAVERN OPERATOR): Encouraged healthy lifestyle, good nutrition and exercise. Encouraged Calcium and Vitamin D and weight bearing exercise for bone health. Reviewed immunizations Reviewed age appropirate screenings. BMI 23.0-23.9, adult 06/20/2024 025 Assessment & Plan (10/30/2024 8:57 AM TAVERN OPERATOR): Weight/BMI is in healthy range. Continue [...] 024 Assessment & Plan (11/24/2023 10:35 AM TAVERN OPERATOR): Encouraged healthy lifestyle, good nutrition and exercise. Encouraged Calcium and Vitamin D and weight bearing exercise for bone health. Reviewed immunizations Reviewed age appropirate screenings. Need for influenza vaccination 08/15/2023 11/24/2023 Assessment & Plan (08/15/2023 5:04 PM TAVERN OPERATOR): Flu vaccine updated in the office today BMI 22.0-22.9, adult 07/22/2023 024 Assessment & Plan (08/11/2023 8:12 AM TAVERN OPERATOR): Weight/BMI is in healthy range. Continue [...] 04/03/2023 Assessment & Plan (08/15/2022 6:45 PM TAVERN OPERATOR): Flu updated in the office today [...] test outpatient. Was referred to an outside incinerator operator. Encouraged to consider seeing a [facility] group of cardiologists so all of his providers are in the same system. He is in agreement. Referral made to Dr. Eduardo as he has multiple risk factors. BMI 23.0-23.9, adult 01/21/2022 Assessment & Plan (01/21/2022 11:10 AM CDT): Weight/BMI is in healthy range. Continue healthy lifestyle to maintain. BMI 21.0-21.9, adult 08/01/2021 022 Assessment & Plan (08/01/2021 7:28 AM TAVERN OPERATOR): Weight/BMI is in healthy range. Continue healthy lifestyle to maintain. Medicare annual wellness visit, subsequent 08/01/2021 08/15/2022 Assessment & Plan (08/01/2021 9:34 PM TAVERN OPERATOR): Encouraged healthy lifestyle, good nutrition and exercise. Encouraged Calcium and Vitamin D and weight bearing exercise for bone health. Reviewed immunizations. Reviewed age appropirate screenings. Medicare Wellness Documentation is completed within the chart Fatigue 05/17/2021 05/02/2022 Assessment & Plan (08/01/2021 9:34 PM TAVERN OPERATOR): Probably multifactorial. Check labs and followup [...] 024 Assessment & Plan (11/24/2023 10:34 AM TAVERN OPERATOR): Weight/BMI is in healthy range. Continue [...] 05/02/2022 Assessment & Plan (07/29/2020 7:34 AM TAVERN OPERATOR): Probably multifactorial. Check labs and followup to re-evaluate Need for immunization against influenza 07/29/2020 11/24/2020 Assessment & Plan (07/29/2020 7:34 AM TAVERN OPERATOR): Updated in office today BMI 22.0-22.9, adult 03/27/2020 024 Assessment & Plan (05/20/2024 7:37 PM CDT): Weight/BMI is in healthy range. Continue healthy lifestyle to maintain. Assessment & Plan (07/29/2020 7:34 AM TAVERN OPERATOR): Weight/BMI is in healthy range. Continue [...] 020 Assessment & Plan (09/26/2019 7:39 AM TAVERN OPERATOR): Weight/BMI is in healthy range. Continue healthy lifestyle to maintain. Annual physical exam 09/26/2019 020 Assessment & Plan (09/26/2019 7:40 AM TAVERN OPERATOR): Encouraged healthy lifestyle, good nutrition and exercise. Encouraged Calcium and Vitamin D and weight bearing exercise for bone health. Reviewed immunizations Reviewed age appropirate screenings. Influenza vaccine refused 09/26/2019 Assessment & Plan (09/26/2019 7:40 AM TAVERN OPERATOR): Encouraged vaccine. Reviewed risks/ benefits. Patient refuses and accepts risks. Esophagitis determined by endoscopy 05/20/2019 05/02/2022 Gastritis 05/20/2019 05/02/2022 Essential (primary) hypertension 05/20/2019 05/20/2024 Assessment & Plan (11/24/2023 10:34 AM TAVERN OPERATOR): Bp is stable/in acceptable range for any co-morbidities. Encouraged to limit sodium intake and exercise for weight control. Continue losartan 50 Assessment & Plan (08/15/2023 5:04 PM TAVERN OPERATOR): Bp is stable/in acceptable range for any co-morbidities. Encouraged to limit sodium intake and exercise for weight control. Continue per Dr. Curtis Assessment & Plan (08/11/2023 8:45 AM TAVERN OPERATOR): Bp is stable/in acceptable range for [...] losartan Assessment & Plan (08/15/2022 6:44 PM TAVERN OPERATOR): Bp is stable/in acceptable range for [...] 50 Assessment & Plan (08/01/2021 9:33 PM TAVERN OPERATOR): Bp is stable/in acceptable range for [...] Losartan/HCTZ Assessment & Plan (07/29/2020 7:33 AM TAVERN OPERATOR): Bp is stable/in acceptable range for any co-morbidities. Encouraged to limit sodium intake and exercise for weight control. Losartan and HCTZ Assessment & Plan (03/27/2020 8:00 AM CDT): Bp is stable/in acceptable range for any co-morbidities. Encouraged to limit sodium intake and exercise for weight control. Continue losartan/HCTZ Assessment & Plan (09/26/2019 7:38 AM TAVERN OPERATOR): Bp is stable/in acceptable range for [...] 01/21/2022 Assessment & Plan (08/01/2021 9:34 PM TAVERN OPERATOR): Persistent hiccups. Has consulted with multiple [...] omeprazole Assessment & Plan (07/29/2020 7:32 AM TAVERN OPERATOR): Continue per ENT/Pulm. He is responding to BID omeprazole. Will monitor Assessment & Plan (03/27/2020 7:59 AM CDT): Dr. Stokes started him on Pantoprazole. He hasn't noted much difference. Needs to followup to complete workup. Encouraged patient to call and make appointment. Assessment & Plan (09/26/2019 10:26 PM TAVERN OPERATOR): This is a significant, separately identifiable problem that was evaluated and managed on the same day as the wellness exam Less frequent than in the past. Continue the PPI and monitor Rx sent to pharmacy. Assessment & Plan (08/24/2019 9:04 AM TAVERN OPERATOR): Improving with the PPI. Continue PPI [...] 2018 Assessment & Plan (08/24/2019 9:04 AM TAVERN OPERATOR): Encouraged vaccine. Reviewed risks/ benefits. Patient refuses and accepts risks. Assessment & Plan (07/14/2019 7:05 PM CDT): Encouraged vaccine. Reviewed risks/ benefits. Patient refuses and accepts risks. Assessment & Plan (05/28/2019 7:34 PM CDT): Encouraged again Hypovolemia dehydration 03/0 02/2024 Leukocytosis 11/24/2023 Hypercholesteremia Assessment & Plan (04/08/2023 8:47 PM CDT): Encouraged patient to follow low fat/low chol diet like the Mediterranean diet. Increase good fats in the diet. Increase exercise. Monitor labs as needed. Continue pravastatin and Zetia Gastroesophageal reflux dise ase without esophagitis 04/03/2023 Encounters Date Type Department Care Team Description 07/31/2025 [facility] ED Outreach [address] [address] Roxana Fernandez MA 07/31/2025 [facility] IP Outreach [address] [address] Roxana Fernandez MA 07/31/[address] [place] [phone] Nuris Berger PA 06/26/2025 9:30 AM CDT Office Visit [address] [place] [phone] Nuris Berger PA Hyponatremia (Primary Dx); Psychogenic polydipsia; Chronic hiccups; BMI 23.0-23.9, adult; Generalized body aches; Legally blind; Flu vaccine need 06/21/[address] [place] [phone] Nuris Berger PA 06/20/2025 [facility] IP Outreach [address] [address] [address] [place] 06/19/2025 [facility] IP Outreach [address] [address] [address] [place] 06/18/2025 [facility] IP Outreach [address] [address] [address] [place] 06/01/[address] [place] [phone] Nuris Berger PA 05/30/2025 [facility] IP Outreach [address] [address] Hilton James LPN 05/29/2025 Orders Only [facility] Health Information Management [address] [place] [address] Scanning, Provider from Last 3 Months Immunizations [...] Name Comments Blindness Father Heart attack Father [place] Heart disease Father No Known Problems Mother [...] Recorded In the past 12 months has [employer], [employer], oil, or water [employer] threatened to shut off services in your [...] How often do you attend chur or restorationism services? Patient declined 12/03/2023 Do you belong to any clubs o r organizations such as druze groups, unions, fraternal or athletic groups, or [...] in a fdc (including now)? No 12/03/2023 AUDIT-C Answer Date [...] on file Legal Sex Male 12:22 AM TAVERN OPERATOR Gender Identity Not on file Sexual [...] 05/01/2025 10:18 AM CDT Prostate cancer screening CT CHEST WO CONTRAST F/U LUNG SCREEN PROTOCOL Schedule Routine, Read Routine (OP Routine) 10/03/2024 9:25 AM TAVERN OPERATOR Pulmonary nodules HEPATITIS PANEL, ACUTE Routine 05/03/2022 [...] Nuris ROBLES LAB BLOOD ORDERABLES Final Result [facility] [id number] [address] [phone] * CT Chest WO Contrast F/U Lung Screen Protocol (10/03/2024 9:25 AM TAVERN OPERATOR) Anatomical Region Laterality Modality Chest N/A Computed Tomogra phy 10/03/2024 7:11 PM TAVERN OPERATOR Narrative 10/03/2024 7:17 PM TAVERN OPERATOR EXAM DESCRIPTION: CT CHEST WO CONTRAST [...] Estuardo Ortiz M.D. KT T: Report ID: [id number] Reading Location: [place] [address] Tasia Hoffman MD IMG CT PROCEDURES Final [...] OR DERABLES Final Result Performing Organization Address City/State/[facility] Co de Phone Number ANABELA [address] [facility] Department of Laboratories [place], [place] [id number] * (ABNORMAL) COLONOSCOPY (07/14/2021) Jame Mg MD HEALTH MAINTENANCE Edited Result - Final from Last 3 Months or Most Recently Relevant to Health Maintenance Insurance AET[employer] MEDICARE GOLD T MEDICARE [facility] T MEDICARE [facility] Advance Directives For more information, please contact: [phone] * Full Code (Latest Code Status on [...] 10:34 PM 11/16/2022 9:56 PM Care Teams Stock Blender Relationship Specialty Start Date End Date Nuris Berger PA [address] [facility] [address] [place] [address] PCP - General Internal Medicine 12/28/18 Jonatan Stokes MD [address] [place] [address] Consulting Physician Otolaryngology 03/27/20 Irma Bajwa MD [address] [facility] [place] [address] Consulting Physician Neurology 05/07/22
--- OUTSIDE RECORDS SUMMARY | 2025-08-10 05:56 | XMS_ITS | Clinical Summary ---
Author Organization [facility] Address [facility] [place] [address] Care Team Providers Care Hardscape Foreman Name Role Phone Nuris Berger Primary Care Provider [phone] Allergies No known active allergies Medications albuterol [...] Comments Blood Pressure 120/62 09/04/2021 8:52 AM INDUSTRIAL BOILERMAKER Pulse 82 09/04/2021 8:52 AM INDUSTRIAL BOILERMAKER Temperature 36.3 C (97.4 F) 09/04/2021 8:52 AM INDUSTRIAL BOILERMAKER Respiratory Rate 16 09/04/2021 8:52 AM INDUSTRIAL BOILERMAKER Oxygen Saturation 97% 09/04/2021 8:52 AM INDUSTRIAL BOILERMAKER Inhaled Oxygen Concentration - - Weight 64.4 kg (142 lb) 09/04/2021 8:52 AM INDUSTRIAL BOILERMAKER Height 172.7 cm (5' 8) 09/04/2021 8:52 AM INDUSTRIAL BOILERMAKER Body Mass Index 21.59 09/04/2021 8:52 AM INDUSTRIAL BOILERMAKER Plan of Treatment Health Maintenance Due Date [...] this topic Insurance AETNA MEDICARE Care Teams Hardscape Foreman Relationship Specialty Start Date End Date Nuris Berger PA [address] [place] [address] PCP - General PHYSICIAN FOREIGN LANGUAGE INTERPRETER 06/09/21
--- OUTSIDE RECORDS SUMMARY | 2025-08-10 05:56 | XMS_ITS | Encounter Summary ---
Author Organization [facility] Healthcare Address [address] [place] [address] Care Team Providers Care Contract Assistant Name Role Phone Nuris Berger Primary Care Provider [phone] Jonatan Stokes MD Unavailable [phone] Irma Bajwa MD Unavailable [phone] Ayla Dugan LPN Unavailable [phone] MA Unavailable Unavailable Roxana Fernandez MA Unavailable [phone] Encounter Details Date Type Department Care Team (Late st Contact Info) Description 12/21/2024 Orders Only [facility] Health Information Management [address] [place] [address] Scanning, Provider Social History Tobacco Use Types Packs/Day Years Used Date Smoking Tobacco: Former Cigarettes 0.8 40 0 09/1981 - 09/2021 Smokeless Tobacco: Never Alcohol Use Standard Drinks/Week Comments Yes 0 (1 standard drink = 0.6 oz pur e alcohol) social [facility] Utilities Answer Date Recorded In the past 12 months has [employer] electric, gas, oil, or water company threatened [...] often do you attend chur ch or druze services? 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 Gender Identity Not on file Sexual Orientation [...] on filedocumented in this encounter Care Teams Contract Assistant Relationship Specialty Start Date End Date Nuris Berger PA [address] [place] [address] PCP - General Internal Medicine 12/28/18 Jonatan Stokes MD [address] [place] [address] Consulting Physician Otolaryngology 03/27/20 Irma Bajwa MD [facility] [place] [address] Consulting Physician Neurology 05/07/22 Ayla Dugan LPN [address] [place] [address] Direct Sales Consultant 03/30/25 03/30/25 Brooke Plaza MA [address] [place] [address] ACO Care Commercial Intelligence Manager 06/18/25 06/19/25 Roxana Fernandez MA [address] [place] [address] ACO Care Commercial Intelligence Manager 07/31/25 07/31/25 documented as of this encounter
--- OUTSIDE RECORDS SUMMARY | 2025-08-10 05:56 | XMS_ITS | Clinical Summary ---
Author Organization [facility] Conject Address [address] [place] [address] Care Team Providers Care Filler Shredder Name Role Phone Nuris Berger PA-C Primary Care Provider [phone] Source Comments [facility] Conject,non-owned Affiliates and Associated Physician Practices is amultiple site organization consisting of ambulatory clinics and hospital sitesin [place], [place], [place] and [place]. This disclosure is being madepursuant to the Care Everywhere program and may not contain all information available regarding this patient. Last updated 18.[facility] Allergies Active Allergy Reactions Criticality Noted Date [...] tablet 06/17/2023 Active ergocalciferol (Drisdol) 1.25 MG (18985 UT) capsule Take 1 (one) capsule by [...] 11 07/21/2024 Active trimethoprim-po lymyxin B (Polytrim) 29444-2.1 UNIT/ML-% ophthalmic solution Instill 1 (one) drop into left eye once daily 10 mL 11 09/18/2024 Active prednisoLONE acetate (Pred Forte) 1 % ophthalmic suspension Instill 1 (one) drop into left eye 3 times daily 15 mL 11 04/03/2025 Active tobramycin-dexA METHasone (Tobradex) 0.3-0.1 % ophthalmic suspension Instill 1 (one) drop into left eye at bedtime 10 mL 11 05/18/2025 Active metroNIDAZOLE (Flagyl) 500 MG tablet Take 1 (one) tablet by mouth every 8 hours 05/31/2025 Active famotidine (Pepcid) 20 MG tablet Take 1 (one) tablet by mouth every 12 hours 07/31/2025 Active Active Problems Problem Noted Date Diagnosed [...] Reviewed options for assistance with cessation. Reviewed senior care sequela associated with smoking. Pt declines [...] 05/20/2019 Overview (12/24/2020): Colonoscopy 01/29/2012 at [facility]--->2021 Last Assessment & Plan: Recvd colonoscopy [...] Encounters Date Type Department Care Team Description 08/07/2025 9:15 AM PROCEDURES ANALYST Clinical Support [facility] - Ophthalmology [address] [place] [phone] Tyrel Velez MD 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 (Primary Dx) 08/07/2025 8:45 AM PROCEDURES ANALYST Clinical Support [facility] - Ophthalmology [address] [place] [phone] Tyrel Velez MD 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 (Primary Dx) 08/07/2025 8:40 AM PROCEDURES ANALYST Office Visit [facility] - Ophthalmology [address] [place] [phone] Tyrel Velez MD 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 (Primary Dx) 08/07/2025 Travel 05/18/2025 Refill [facility] - Ophthalmology [address] [place] [phone] Louis Hansen MD MEDICATION REFILL from Last [...] of Binge Drinking Not on file 05/22 PHQ-2 Answer Date Recorded Patient Health Questionnaire-2 Score 0 08/07/2025 Sex and Gender Information Value Date Recorded Sex Assigned at Not on file Legal Sex Male 5:54 PM CDT Gender Identity Not on file Sexual Orientation Not on file Last Filed Vital Signs Vital Sign Reading Time Taken Comments Blood Pressure 128/70 08/26/2023 12:43 PM PROCEDURES ANALYST Pulse 65 08/26/2023 12:43 PM PROCEDURES ANALYST Temperature 35.9 C (96.7 F) 08/26/2023 12:34 PM PROCEDURES ANALYST Respiratory Rate 14 08/26/2023 12:43 PM PROCEDURES ANALYST Oxygen Saturation 98% 08/26/2023 12:34 PM PROCEDURES ANALYST Inhaled Oxygen Concentration - - Weight 64.9 kg (143 lb) 08/26/2023 9:01 AM PROCEDURES ANALYST Height 172.7 cm (5' 8) 08/26/2023 9:01 AM PROCEDURES ANALYST Body Mass Index 21.74 08/26/2023 9:01 AM PROCEDURES ANALYST Plan of Treatment Upcoming Encounters Date Type Department Care Team (Late st Contact Info) Description 10/17/2025 9:00 AM PROCEDURES ANALYST Office Visit [facility] - Ophthalmology [address] [place] [phone] Louis Hansen MD [address] [place] [address] [place] [phone] 04/16/2026 9:00 AM CDT Office Visit [facility] - Ophthalmology [address] [place] [phone] Tyrel Velez MD [address] [place] [address] Health Maintenance Due Date Last Done Comments [...] 50+ (1 of 2 - PCV) 1980 Respiratory Syncytial Virus (RSV) Vaccine Pt: or over 60 yrs (1 - Risk 50-74 years 1-dose series) 2011 ZOSTER VACCINE (1 of 2) 2011 MEDICARE AWV CALENDAR YEAR 2024 COVID-19 VACCINE (3 - 2024- season) 2025 02/09/2021, 01/05/2021 LUNG CANCER SCREENING 06/16/2025 06/16/2024 , 06/14/2023, 08/02/2020 INFLUENZA VACCINE Completed 06/26/2025, , 07/22/2023, Additional history exists DEPRESSION SCREENING Completed 08/07/2025 HEPATITIS B VACCINE Aged Out No longe [...] this topic Medical Devices Implanted Type Area Telehealth Director Device Identifier Shelf Expiration Date Model / Serial / Lot Drain Glcm Thk.9mm Blnt [facility] Flxb - [id number] Implanted:Qty: 1 on 05/04/2018 by Tyrel Velez MD at [facility] Left: Eye [employer] 03/15/2020 FP7 / [id number] / [id number] Graft Tissue Ttplst Sclr .8x.5cm Lopro - [id number] Implanted:Qty: 1 on 05/04/2018 by Tyrel Velez MD at [facility] Left: Eye [employer] 01/17/2023 [id number] / [id number] / [id number] Impl Opth 250sq Mm Brvldt Magaly 1 Qdrnt - [id number] Implanted:Qty: 1 on 06/16/2023 by Tyrel Velez MD at [facility] Left: Eye [employer] 01/09/2024 [id number] / [id number] / Graft Tissue Ttpl Ioptch Sclr .8x.5cm - [id number] Implanted:Qty: 1 on 06/16/2023 by Tyrel Velez MD at [facility] Left: Eye [employer] 09/19/2027 16169 / [id number] / Graft Tissue Ttpl Ioptch Sclr .8x.5cm - [id number] Implanted:Qty: 1 on 06/16/2023 by Tyrel Velez MD at [facility] Left: Eye [employer] 09/19/2027 [id number] / [id number] / J Luis Cornea - [id number] Implanted:Qty: 1 on 08/26/2023 by Louis Hansen MD at [facility] Left: Eye [employer] 09/05/2023 [id number] / [id number] Description:Product Numb:[id number] EXP:09-05-2023 DIN:[id number] Insurance AETNA MEDICARE ADV AETNA [facility] Care Address: [facility] [id number] [place] [address] Advance Directives * Full Code (Latest Code Status on File) Date Activated Date Inactivated Comments 05/04/2018 11:35 AM 05/04/2018 1:21 PM * Full Code Date Activated Date Inactivated Comments 05/04/2018 7:43 AM 05/04/2018 11:35 AM Care Teams Filler Shredder Relationship Specialty Start Date End Date Nuris Berger PA-C PCP - General 02/13/20
--- OUTSIDE RECORDS SUMMARY | 2025-08-10 05:56 | XMS_ITS | Encounter Summary ---
Author Organization [facility] Healthcare Address [address] [place] [address] Care Team Providers Care Technical Administrator Name Role Phone Nuris Berger Primary Care Provider [phone] Jonatan Stokes MD Unavailable [phone] Irma Bajwa MD Unavailable [phone] Ayla Dugan LPN Unavailable [phone] MA Unavailable Unavailable Roxana Fernandez MA Unavailable [phone] Encounter Details Date Type Department Care Team (Late st Contact Info) Description 03/26/2025 Orders Only [facility] Health Information Management [address] [place] [address] Scanning, Provider Social History Tobacco Use Types Packs/Day Years Used Date Smoking Tobacco: Former Cigarettes 0.8 40 0 09/1981 - 09/2021 Smokeless Tobacco: Never Alcohol Use Standard Drinks/Week Comments Yes 0 (1 standard drink = 0.6 oz pur e alcohol) social [facility] Utilities Answer Date Recorded In the past 12 months has [employer] electric, gas, oil, or water company threatened [...] often do you attend chur ch or gnosticist services? 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 Gender Identity Not on file Sexual [...] on filedocumented in this encounter Care Teams Technical Administrator Relationship Specialty Start Date End Date Nuris Berger PA [address] [facility] [address] [place] [address] PCP - General Internal Medicine 12/28/18 Jonatan Stokes MD [address] [place] [address] Consulting Physician Otolaryngology 03/27/20 Irma Bajwa MD [address] [place] [address] Consulting Physician Neurology 05/07/22 Ayla Dugan LPN [address] [place] [address] [address] [place] [address] Cloth Covered Helmet Puller 03/30/25 03/30/25 Brooke Plaza MA [address] [place] [address] ACO Care Sales Project Engineer 06/18/25 06/19/25 Roxana Fernandez MA [address] [place] [address] ACO Care Sales Project Engineer 07/31/25 07/31/25 documented as of this encounter
--- OUTSIDE RECORDS SUMMARY | 2025-08-10 05:56 | XMS_ITS | Encounter Summary ---
Author Organization [facility] Healthcare Address [address] [place] [address] Care Team Providers Care Grades 7 And 8 Visiting Teacher Name Role Phone Nuris Berger Primary Care Provider [phone] Jonatan Stokes MD Unavailable [phone] Irma Bajwa MD Unavailable [phone] Ayla Dugan LPN Unavailable [phone] MA Unavailable Unavailable Roxana Fernandez MA Unavailable [phone] Encounter Details Date Type Department Care Team (Late st Contact Info) Description 12/26/2024 Orders Only [facility] Health Information Management [address] [place] [address] Scanning, Provider Social History Tobacco Use Types Packs/Day Years Used Date Smoking Tobacco: Former Cigarettes 0.8 40 0 09/1981 - 09/2021 Smokeless Tobacco: Never Alcohol Use Standard Drinks/Week Comments Yes 0 (1 standard drink = 0.6 oz pur e alcohol) social [facility] Utilities Answer Date Recorded In the past 12 months has [employer] electric, gas, oil, or water company [...] often do you attend chur ch or adventist services? 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 [address] Consulting Physician Neurology 05/07/22 Ayla Dugan LPN [address] [place] [address] [address] [place] [address] Coil Tester 03/30/25 03/30/25 Brooke Plaza MA [address] [place] [address] ACO Care Mechanical Energy Engineer 06/18/25 06/19/25 Roxana Fernandez MA [address] [place] [address] ACO Care Mechanical Energy Engineer 07/31/25 07/31/25 documented as of this encounter
--- NOTE | 2025-08-10 06:01 | ECG_ITS ---
Test Date: 2025-08-10 06:11:14 Measurements Intervals Kempner Rate: 79 P: 1 MD: 120 QRS: 18 QRSD: 85 T: 34 QT: 370 QTc: 426 Interpretive Statements POOR QUALITY ECG, DIFFICULT INTERPRETATION SINUS RHYTHM GROSSLY NORMAL ECG Compared to ECG 07/26/2025 15:19:14 No significant changes Electronically Signed On 08-10-2025 07:59:21 QUILL CLEANER by Herman Al M.D.
--- NOTE | 2025-08-10 06:07 | ED.GENADULT ---
HPI - General Adult General Chief complaint: Unspecified Stated complaint: Lightheaded, coughing, vomiting Time Seen by Provider: 08/10/25 06:03 History of Present Illness HPI narrative: 64-year-old male well-known to this facility for concerns of chronic hyponatremia secondary to psychogenic polydipsia. Patient has chronic hiccups that he treats with copious amounts of oral intake of water causing him to become hyponatremic. Patient takes Thorazine at home for the hiccups which states helped as well. Has presented numerous times for same complaints that he is here for today including lightheadedness and nausea and vomiting. Mentating appropriately and answering all my questions appropriately. Was otherwise in his normal state of health. Denies any pain anywhere. Take up multiple times throughout the examination. Endorses drinking ?too much? water but does not quantify how much he takes. On review of the EMR patient has serial admissions for deranged electrolytes requiring correction. No traumatic injuries or falls. Patient was otherwise in his normal state of health. Related Data Home Medications ?Medication ?Instructions ?Recorded ?Confirmed ?Last Taken ?Type losartan 50 mg tablet 50 mg PO DAILY 03/02/21 08/10/25 07/26/25 History montelukast 10 mg tablet 10 mg PO HS 03/02/21 08/10/25 07/25/25 History pravastatin 80 mg tablet 80 mg PO DAILY 03/02/21 08/10/25 07/26/25 History cholecalciferol (vitamin D3) 25 25 mcg PO DAILY 03/29/21 08/10/25 07/26/25 History mcg (1,000 unit) capsule (Vitamin D3) cyanocobalamin (vitamin B-12) 100 2,000 mcg PO DAILY 03/29/21 08/10/25 07/26/25 History mcg tablet dorzolamide 22.3 mg-timolol 6.8 1 drp LEFT EYE TID 06/29/24 08/10/25 07/26/25 History mg/mL eye drops budesonide-formoterol HFA 80 2 puff inhalation Q12H 12/26/24 08/10/25 07/25/25 History mcg-4.5 mcg/actuation aerosol inhaler gabapentin 300 mg capsule 300 mg PO DAILY 12/26/24 08/10/25 07/26/25 History aspirin 81 mg tablet,delayed 81 mg PO DAILY 03/25/25 08/10/25 07/26/25 History release (Adult Aspirin Regimen) baclofen 5 mg tablet 5 mg PO BID 04/24/25 08/10/25 06/19/25 History Allergies Allergy/AdvReac Type Severity Reaction Status Date / Time No Known Allergies Allergy Verified 08/10/25 08:49 Review of Systems Review of Systems: As reviewed above in [facility] Past Medical History Medical History Hearing loss Impacted cerumen, left ear Asthma-COPD overlap syndrome Wears hearing aid in both ears Adenomatous colon polyp Hiatal hernia Other osteonecrosis, left femur Other osteonecrosis, right femur Psychogenic polydipsia Erosive esophagitis Anemia of chronic disease Chronic hiccups Hyponatremia Tobacco abuse Normocytic anemia Glaucoma Legally blind. Hyperlipidemia Hypertension Surgical History Surgical History History of enucleation of eye Right, secondary to recurrent infection. Family History Family History Grandparent Acute myocardial infarction Mother Acute myocardial infarction Skin cancer Father Acute myocardial infarction Sibling Cancer Social History Social History Social History: Surrogate decision maker: Svitlana Hines, . Code status: Full code. Smoking packs per day: 1.5 Smoking cigarettes per day: 30.0 Years smoked: 50 Smoking pack-years: 75.00 Smoking status: Former smoker Tobacco type: cigarettes Second hand tobacco smoke exposure: No Smoking end date: 05/21/20 Alcohol intake: former Substance use: never Substance use type: does not use Do You Feel Safe in your Home?: Yes Lack of Transportation: No Lack of Food: Never True Current Housing: I Have Housing Concerned About Future Housing: No Difficulty Paying Gas/Electric Bills: No Difficulty Paying for Meds: No Currently Unemployed: No Education: High School Diploma/GED Difficulty w/ Childcare or Family Care: No Living arrangements: with family Additional living arrangements comments: The patient lives with his of 43 years in [place]. He and his had 4 children 1 of which at . His remaining children are healthy. 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 Spiritual care concerns: No Exam Narrative: GENERAL: non-toxic appearing, in no acute distress. Hiccup frequently during exam HEAD: Normocephalic, atraumatic. EYES: Bilateral glaucoma resulting in blindness EARS: Bilateral hearing aids intact; hard of hearing NOSE: Normal no drainage. THROAT: Pharynx clear, no exudate. NECK: Trachea midline. No adenopathy, no masses. RESPIRATORY: Airway patent, respirations nonlabored. CTA. CARDIOVASCULAR: Regular rate and rhythm GASTROINTESTINAL: Abdomen is soft and nontender. No organomegaly. Bowel sounds normal in all quadrants. GENITOURINARY: Defer MUSCULOSKELETAL: Moves all extremities. No gross deformities. SKIN: Warm, dry, normal color. NEURO: A&O X4. Speech clear. No ataxia or focal neurological deficits. No facial asymmetry. PSYCHIATRIC: Normal interaction Course Vital Signs Vital signs: Vital Signs Temperature 36.9 C 08/10/25 06:04 Pulse Rate 80 08/10/25 06:04 Respiratory Rate 20 08/10/25 06:04 Blood Pressure 163/77 H 08/10/25 06:04 Pulse Oximetry 98 08/10/25 06:04 Oxygen Delivery Room Air 08/10/25 06:04 Temperature 36.3 C L 08/10/25 22:00 Pulse Rate 87 08/10/25 22:00 Respiratory Rate 20 08/10/25 22:00 Blood Pressure 100/61 08/10/25 22:00 Pulse Oximetry 97 08/10/25 22:00 Oxygen Delivery Room Air 08/10/25 20:43 Medical Decision Making [facility] Narrative Medical decision making narrative: 64-year-old male well-known to this facility for concerns of chronic hyponatremia secondary to psychogenic polydipsia. Patient has chronic hiccups that he treats with copious amounts of oral intake of water causing him to become hyponatremic. Patient takes Thorazine at home for the hiccups which states helped as well. Has presented numerous times for same complaints that he is here for today including lightheadedness and nausea and vomiting. Mentating appropriately and answering all my questions appropriately. Was otherwise in his normal state of health. Denies any pain anywhere. Take up multiple times throughout the examination. Endorses drinking ?too much? water but does not quantify how much he takes. On review of the EMR patient has serial admissions for deranged electrolytes requiring correction. No traumatic injuries or falls. Patient was otherwise in his normal state of health. Patient's vital signs are unremarkable. No tachycardia, fever, hypoxia or significant blood pressure derangements. Symptoms sound consistent with his normal presentation of chronic hiccups and chronic electrolyte derangements. Will evaluate with electrolyte panel as well as an EKG chest x-ray and viral swabs. Patient given Thorazine for his hiccups. Thorazine did help the headache ups. Patient's sodium is 116 and he has been around this range previously during exacerbations of his symptoms. Typically responds which is fluid restriction and self corrects. Placed on fluid restriction and repeat BMP ordered for 3 hours from now. Will be admitted to telemetry bed for further evaluation of symptoms. Medical Records Medical records reviewed: Yes I reviewed the external patient's medical records. Vital Signs Vital Signs: Vital Signs Temperature 36.9 C 08/10/25 06:04 Pulse Rate 80 08/10/25 06:04 Respiratory Rate 20 08/10/25 06:04 Blood Pressure 163/77 H 08/10/25 06:04 Pulse Oximetry 98 08/10/25 06:04 Oxygen Delivery Room Air 08/10/25 06:04 Temperature 36.3 C L 08/10/25 22:00 Pulse Rate 87 08/10/25 22:00 Respiratory Rate 20 08/10/25 22:00 Blood Pressure 100/61 08/10/25 22:00 Pulse Oximetry 97 08/10/25 22:00 Oxygen Delivery Room Air 08/10/25 20:43 Lab Data Lab results reviewed: Yes I reviewed the patient's lab results. 08/10/25 06:24 08/10/25 21:35 Labs: Lab Results 08/10/25 08/10/25 Range/Units 06:23 06:24 WBC 11.0 H (4.5-10.0) K/mm3 RBC 3.11 L (4.6-6.20) M/mm3 Hgb 9.2 L (14.0-18.0) g/dL Hct 26.5 L (42.0-52.0) % MCV 85.2 (80-100) fl MCH 29.6 (26-34) pg MCHC 34.7 (32-36) g/dl RDW 14.4 (11.5-14.5) % Plt Count 203 (150-375) k/mm3 MPV 10.2 (7.4-10.4) fl Immature Gran % (Auto) 0.4 (0-0.5) % Neut % (Auto) 88.0 H (45.5-73.1) % Lymph % (Auto) 6.0 L (18.3-44.2) % [place] % (Auto) 5.0 (2.6-8.5) % Eos % (Auto) 0.4 (0-4.4) % Baso % (Auto) 0.2 (0.2-1.2) % Lymph # (Auto) 0.66 L (0.9-3.2) K/mm3 [place] # (Auto) 0.6 (0.1-0.6) K/mm3 Eos # (Auto) 0.0 (0-0.3) K/mm3 Baso # (Auto) 0.0 (0.0-0.1) K/mm3 Abs Immat Gran (auto) 0.04 H (0.00-0.031) K/mm3 Absolute Neuts (auto) 9.7 H (1.3-6.7) K/mm3 Absolute Nucleated RBC 0.000 (0.0-0.012) K/mm3 Nucleated RBC % 0.0 (0.0-0.2) % Sodium 116 L* (137-145) mmol/L Potassium 4.4 (3.4-5.0) mmol/L Chloride 86 L (98-107) mmol/L Carbon Dioxide 22 (22-30) mmol/L Anion Gap 8 (4-12) mmol/L BUN 7 L (9-20) mg/dL Creatinine 0.70 (0.7-1.3) mg/dL Estim Creat Clear Calc Not Reportable Estimated GFR > 60 (59 - ) Glucose 108 (65-110) mg/dL Calcium 8.7 (8.4-10.2) mg/dL Total Bilirubin 0.5 (0.2-1.3) mg/dL AST 24 (17-59) U/L ALT 11 (6-50) U/L Alkaline Phosphatase 61 (38-126) U/L Total Protein 6.8 (6.3-8.2) g/dL Albumin 4.0 (3.5-5.1) g/dL Urine Color Yellow (Yellow) Urine Appearance Clear (Clear) Urine pH 7.0 (5.0-9.0) Ur Specific Alkol 1.003 (1.001-1.035) Urine Protein Negative (Negative) mg/dL Urine Glucose (UA) Negative (Negative) mg/dL Urine Ketones Negative (Negative) mg/dL Ur Blood (Man) Negative (Negative) Urine Nitrate Negative (Negative) Urine Bilirubin Negative (Negative) Urine Urobilinogen 0.2 (<2.0) mg/dL Leukocyte Esterase Rfl Negative (Negative) BENTLEY/UL Ur Random Sodium 16 meq/L Influenza A (RT-PCR) Negative (Negative) Influenza B (RT-PCR) Negative (Negative) RSV (RT-PCR) Negative (Negative) SARS-CoV-2 RNA (RT-PCR) Negative (Negative) Critical Care Time Critical Care Time Critical Care Time: Yes Total Critical Care Time: 35 Discharge Plan Discharge Clinical Impression: Acute hyponatremia, Chronic hiccups, Psychogenic polydipsia Patient Disposition: Still a Patient Condition: Stable
--- OUTSIDE RECORDS SUMMARY | 2025-08-10 06:31 | XMS_ITS | Clinical Summary ---
Author Organization [facility] Address [facility] [place] [address] Care Team Providers Care Diesel Locomotive Firer Name Role Phone Nuris Berger Primary Care Provider [phone] Allergies No known active allergies Medications albuterol [...] Comments Blood Pressure 120/62 09/04/2021 8:52 AM MEMBERSHIP SALES MANAGER Pulse 82 09/04/2021 8:52 AM MEMBERSHIP SALES MANAGER Temperature 36.3 C (97.4 F) 09/04/2021 8:52 AM MEMBERSHIP SALES MANAGER Respiratory Rate 16 09/04/2021 8:52 AM MEMBERSHIP SALES MANAGER Oxygen Saturation 97% 09/04/2021 8:52 AM MEMBERSHIP SALES MANAGER Inhaled Oxygen Concentration - - Weight 64.4 kg (142 lb) 09/04/2021 8:52 AM MEMBERSHIP SALES MANAGER Height 172.7 cm (5' 8) 09/04/2021 8:52 AM MEMBERSHIP SALES MANAGER Body Mass Index 21.59 09/04/2021 8:52 AM MEMBERSHIP SALES MANAGER Plan of Treatment Health Maintenance Due Date [...] this topic Insurance AETNA MEDICARE Care Teams Diesel Locomotive Firer Relationship Specialty Start Date End Date Nuris Berger PA [address] [place] [address] PCP - General PHYSICIAN PROPERTY UTILIZATION OFFICER 06/09/21
--- OUTSIDE RECORDS SUMMARY | 2025-08-10 06:31 | XMS_ITS | Encounter Summary ---
Author Organization [facility] Address [address] [place] [address] Care Team Providers Care Signal Tower Operator Name Role Phone Nuris Berger Primary Care Provider [phone] Jonatan Stokes MD Unavailable [phone] Irma Bajwa MD Unavailable [phone] Ayla Dugan LPN Unavailable [phone] MA Unavailable Unavailable Roxana Fernandez MA Unavailable [phone] Encounter Details Date Type Department Care Team (Late st Contact Info) Description 12/21/2024 Orders Only [facility] Health Information Management [address] [place] [id number] Scanning, Provider Social History Tobacco Use Types Packs/Day Years Used Date Smoking Tobacco: Former Cigarettes 0.8 40 0 09/1981 - 09/2021 Smokeless Tobacco: Never Alcohol Use Standard Drinks/Week Comments Yes 0 (1 standard drink = 0.6 oz pur e alcohol) social [facility] Utilities Answer Date Recorded In the past 12 months has [employer] electric, gas, oil, or water company threatened [...] often do you attend chur ch or mosque services? 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 Gender Identity Not on file Sexual [...] on filedocumented in this encounter Care Teams Signal Tower Operator Relationship Specialty Start Date End Date Nuris Berger PA [address] [place] [address] PCP - General Internal Medicine 12/28/18 Jonatan Stokes MD [address] [place] [address] Consulting Physician Otolaryngology 03/27/20 Irma Bajwa MD [facility] [place] [address] Consulting Physician Neurology 05/07/22 Ayla Duagn LPN [address] [place] [address] Sales Team Member 03/30/25 03/30/25 Brooke Plaza MA [address] [place] [address] ACO Care Refractory Bricklayer 06/18/25 06/19/25 Roxana Frenandez MA [address] [place] [address] ACO Care Refractory Bricklayer 07/31/25 07/31/25 documented as of this encounter
--- OUTSIDE RECORDS SUMMARY | 2025-08-10 06:31 | XMS_ITS | Clinical Summary ---
Author Organization [facility] Address [address] [place] [address] Care Team Providers Care Hotel Desk Clerk Name Role Phone Nuris Berger PA-C Primary Care Provider [phone] Source Comments [facility],non-owned Affiliates and Associated Physician Practices is amultiple site organization consisting of ambulatory clinics and hospital sitesin [place], [place], [place] and [place]. This disclosure is being madepursuant to the Care Everywhere program and may not contain all information available regarding this patient. Last updated 18.[facility] Allergies Active Allergy Reactions Criticality Noted Date [...] tablet 06/17/2023 Active ergocalciferol (Drisdol) 1.25 MG (98107 UT) capsule Take 1 (one) capsule by [...] 11 07/21/2024 Active trimethoprim-po lymyxin B (Polytrim) 03195-4.1 UNIT/ML-% ophthalmic solution Instill 1 (one) drop [...] polyp 05/20/2019 Overview (12/24/2020): Colonoscopy 01/29/2012 at [facility]--->2021 Last Assessment & Plan: Recvd [...] Department Care Team Description 08/07/2025 9:15 AM WATER PLANT MAINTENANCE MECHANIC Clinical Support [facility] - Ophthalmology [address] [place] [phone] Tyrel Velez MD 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 (Primary Dx) 08/07/2025 8:45 AM WATER PLANT MAINTENANCE MECHANIC Clinical Support [facility] - Ophthalmology [address] [place] [phone] Tyrel Velez MD 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 (Primary Dx) 08/07/2025 8:40 AM WATER PLANT MAINTENANCE MECHANIC Office Visit [facility] - Ophthalmology [address] [place] [phone] Tyrel Velez MD 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 (Primary Dx) 08/07/2025 Travel 05/18/2025 Refill [facility] - Ophthalmology [address] [place] [phone] Louis Hansen MD MEDICATION REFILL from Last [...] Comments Blood Pressure 128/70 08/26/2023 12:43 PM WATER PLANT MAINTENANCE MECHANIC Pulse 65 08/26/2023 12:43 PM WATER PLANT MAINTENANCE MECHANIC Temperature 35.9 C (96.7 F) 08/26/2023 12:34 PM WATER PLANT MAINTENANCE MECHANIC Respiratory Rate 14 08/26/2023 12:43 PM WATER PLANT MAINTENANCE MECHANIC Oxygen Saturation 98% 08/26/2023 12:34 PM WATER PLANT MAINTENANCE MECHANIC Inhaled Oxygen Concentration - - Weight 64.9 kg (143 lb) 08/26/2023 9:01 AM WATER PLANT MAINTENANCE MECHANIC Height 172.7 cm (5' 8) 08/26/2023 9:01 AM WATER PLANT MAINTENANCE MECHANIC Body Mass Index 21.74 08/26/2023 9:01 AM WATER PLANT MAINTENANCE MECHANIC Plan of Treatment Upcoming Encounters Date Type Department Care Team (Late st Contact Info) Description 10/17/2025 9:00 AM WATER PLANT MAINTENANCE MECHANIC Office Visit [facility] - Ophthalmology [address] [place] [phone] Louis Hansen MD [address] [place] [address] [place] [phone] 04/16/2026 9:00 AM CDT Office Visit [facility] - Ophthalmology [address] [place] [phone] Tyrel Velez MD [address] [place] [phone] Health Maintenance Due Date Last Done Comments [...] this topic Medical Devices Implanted Type Area Distresser Device Identifier Shelf Expiration Date Model / Serial / Lot Drain Glcm Thk.9mm Blnt [facility] Flxb - [id number] Implanted:Qty: 1 on 05/04/2018 by Tyrel Velez MD at [facility] Left: Eye [employer] 03/15/2020 FP7 / [id number] / [id number] Graft Tissue Ttplst Sclr .8x.5cm Lopro - [id number] Implanted:Qty: 1 on 05/04/2018 by Tyrel Velez MD at [facility] Left: Eye [employer] 01/17/2023 [id number] / [id number] / [id number] Impl Opth 250sq Mm Brvldt Magaly 1 Qdrnt - [id number] Implanted:Qty: 1 on 06/16/2023 by Tyrel Velez MD at [facility] Left: Eye [employer] 01/09/2024 [id number] / [id number] / Graft Tissue Ttpl Ioptch Sclr .8x.5cm - [id number] Implanted:Qty: 1 on 06/16/2023 by Tyrel Velez MD at [facility] Left: Eye [employer] 09/19/2027 [id number] / [id number] / Graft Tissue Ttpl Ioptch Sclr .8x.5cm - [id number] Implanted:Qty: 1 on 06/16/2023 by Tyrel Velez MD at [facility] Left: Eye [employer] 09/19/2027 [id number] / [id number] / J Luis Cornea - [id number] Implanted:Qty: 1 on 08/26/2023 by Louis Hansen MD at [facility] Left: Eye [employer] 09/05/2023 [id number] / [id number] / [id number] Description:Product Numb:[id number] EXP:09-05-2023 DIN:[id number] Insurance AETNA MEDICARE ADV AETNA Advance Directives * Full Code (Latest Code Status on File) Date Activated Date Inactivated Comments 05/04/2018 11:35 AM 05/04/2018 1:21 PM * Full Code Date Activated Date Inactivated Comments 05/04/2018 7:43 AM 05/04/2018 11:35 AM Care Teams Hotel Desk Clerk Relationship Specialty Start Date End Date Nuris Berger PA-C PCP - General 02/13/20
--- OUTSIDE RECORDS SUMMARY | 2025-08-10 06:31 | XMS_ITS | Data Portability ---
Author Organization JUSTIN TEJINDERKathy Hernandez Address [address] [place] [address] Assessment No assessment recorded. Plan of Treatment Reminders Order Date Submit Date Provider Last Modified By Organization Details Last Modified Time Details Appointments None recorded. Lab PSA, serum or plasma 2016 017 [facility], [address] [place] [address], [address], [place], [address], 7 11:13:39 vitamin D, 25-hydroxy , total, serum 2016 017 [facility], [address] [place] [address], [address], [place], [address], 7 11:13:41 lipid panel, serum 2016 017 [facility], [address] [place] [address], [address], [place], [address], 7 11:13:39 CMP, serum or plasma 2016 017 [facility], [address] [place] [address], [address], [place], [address], 7 11:13:38 CK (creatine kinase), total, serum 2016 017 [facility], [address] [place], [place] [address], [address], [place], [address], 7 11:13:41 HbA1c (hemoglobi n A1c), blood 2016 017 [facility], [address] [facility], [address], [place], [address], 7 11:13:40 Referral ophthalmol ogist referral - please contact patient to schedule kelechi hernandez, thank you 2016 017 [email or web address] Not available 11:35:22 Procedures None recorded. Surgeries None recorded. Imaging None recorded. Medication Orders nicotine 14 mg/24 hr daily transderma l patch 2016 017 [facility][id number], [address] [facility], [place], [place], [id number], 7 10:19:15 losartan 100 mg tablet 2016 017 [facility] #01659, [address] [place], [place], [id number], 7 10:22:24 pravastati n 80 mg tablet 2016 017 [facility] #[id number], [address] [place], [place], [id number], 7 10:21:48 Zetia 10 mg tablet 2016 017 [facility] #[id number], [address] [facility], [place], [place], [id number], 7 10:21:48 Patient TargetsNo targets recorded. Patient InstructionsNo instructions recorded. Reason for Referral Lining Cutter Referral for Glaucoma please continue to treat glaucoma. thank you please contact patient to schedule appointment, thank you Referring Physician: Tereso Mathias, [facility], Encounter Date: 02/24/2017 Results Created Date Observation Date Name Description Value Unit Range Abnormal Flag Note LastModifiedBy Organization Detail LastModifiedTime 12/04/19 17 12/04/2016 CMP, serum or plasm a glucose, serum 89 mg/dL 65-99 Not Available [facility] ([facility]) [address] [place], [address], 12/04/2016 11:13:38 12/04/19 17 12/04/2016 CMP, serum or plasm a BUN 14 mg/dL 6-24 Not Available [facility] ([facility]) [address] [facility] [place], [address], 12/04/2016 11:13:38 12/04/19 17 12/04/2016 CMP, serum or plasm a creatinine, serum 0.97 mg/dL 0.76-1 .27 Not Available [facility] ([facility]) [address] [facility] [place], [address], 12/04/2016 11:13:38 12/04/19 17 12/04/2016 CMP, serum or plasm a eGFR if nonafricn AM 88 mL/mi n/1.7 3 >59 Not Available [facility] ([facility]) [address] [place], [address], 12/04/2016 11:13:38 12/04/19 17 12/04/2016 CMP, serum or plasm a eGFR if africn AM 101 mL/mi n/1.7 3 >59 Not Available [facility] ([facility]) [address] [place], [address], 12/04/2016 11:13:38 12/04/19 17 12/04/2016 CMP, serum or plasm a BUN/creatini ne ratio 14 9-20 Not Available [facility] ([facility]) [address] [place], [address], 12/04/2016 11:13:38 12/04/19 17 12/04/2016 CMP, serum or plasm a sodium, serum 144 mmol/ L 134-14 4 Not Available [facility] ([facility]) [address] [place], [address], 12/04/2016 11:13:38 12/04/19 17 12/04/2016 CMP, serum or plasm a potassium, serum 4.7 mmol/ L 3.5-5. 2 Not Available [facility] ([facility]) [address] [place], [address], 12/04/2016 11:13:38 12/04/19 17 12/04/2016 CMP, serum or plasm a chloride, serum 103 mmol/ L 96-106 Not Available [facility] ([facility]) [address] [place], [address], 12/04/2016 11:13:38 12/04/19 17 12/04/2016 CMP, serum or plasm a carbon dioxide, total 24 mmol/ L 18-29 Not Available [facility] ([facility]) [address] [place], [address], 12/04/2016 11:13:38 12/04/19 17 12/04/2016 CMP, serum or plasm a calcium, serum 9.2 mg/dL 8.7-10 .2 Not Available [facility] ([facility]) [address] [place], [address], 12/04/2016 11:13:38 12/04/19 17 12/04/2016 CMP, serum or plasm a protein, total, serum 6.7 g/dL 6.0-8. 5 Not Available [facility] ([facility]) [address] [place], [address], 12/04/2016 11:13:38 12/04/19 17 12/04/2016 CMP, serum or plasm a albumin, serum 3.6 g/dL 3.5-5. 5 Not Available [facility] ([facility]) [address] [place], [address], 12/04/2016 11:13:38 12/04/19 17 12/04/2016 CMP, serum or plasm a globulin, total 3.1 g/dL 1.5-4. 5 Not Available [facility] ([facility]) [address] [facility], [address], 12/04/2016 11:13:38 12/04/19 17 12/04/2016 CMP, serum or plasm a A/G ratio 1.2 1.2-2. 2 PLE ASE NOTE REFER ENCE INTER MANUEL DAMON E Not Available [facility] ([facility]) [address] [facility] [place], [address], 12/04/2016 11:13:38 12/04/19 17 12/04/2016 CMP, serum or plasm a bilirubin, total 0.3 mg/dL 0.0-1. 2 Not Available [facility] ([facility]) [address] [facility] [place], [address], 12/04/2016 11:13:38 12/04/19 17 12/04/2016 CMP, serum or plasm a alkaline phosphatase, S 53 IU/L 39-117 Not Available [facility] ([facility]) [address] [facility], [place], [address], 12/04/2016 11:13:38 12/04/19 17 12/04/2016 CMP, serum or plasm a AST (SGOT) 6 IU/L 0-40 Not Available [facility] ([facility]) [address] [facility], [place], [address], 12/04/2016 11:13:38 12/04/19 17 12/04/2016 CMP, serum or plasm a ALT (SGPT) 7 IU/L 0-44 Not Available [facility] ([facility]) [address] [facility] [place], [address], 12/04/2016 11:13:38 12/04/19 17 12/04/2016 lipid panel , serum cholesterol, total 103 mg/dL 100-19 9 Not Available [facility] ([facility]) [address] [facility] [place], [address], 12/04/2016 11:13:39 12/04/19 12/04/2016 lipid panel , serum triglyceride s 92 mg/dL 0-149 Not Available [facility] ([facility]) [address] [place], [address], 12/04/2016 11:13:39 12/04/19 17 12/04/2016 lipid panel , serum HDL cholesterol 25 mg/dL >39 below low normal Not Available [facility] ([facility]) [address] [place], [address], 12/04/2016 11:13:39 12/04/19 17 12/04/2016 lipid panel , serum VLDL cholesterol anselmo 18 mg/dL 5-40 Not Available [facility] ([facility]) [address] [place], [address], 12/04/2016 11:13:39 12/04/19 17 12/04/2016 lipid panel , serum LDL cholesterol calc 60 mg/dL 0-99 Not Available [facility] ([facility]) [address] [place], [address], 12/04/2016 11:13:39 12/04/1912/04/2016 lipid panel , serum comment: BINDER LOCKSTITCH Not Available [facility] ([facility]) [address] [place], [address], 12/04/2016 11:13:39 12/04/1912/04/2016 lipid panel , serum LDL/HDL ratio 2.4 ratio _unit s 0.0-3. 6 LDL/H DL RATIO MEN WOMEN 1/2 AVG.R ISK 1.0 1.5 AVG.R ISK 3.6 3.2 2X AVG.R ISK 6.2 5.0 3X AVG.R ISK 8.0 6.1 Not Available [facility] ([facility]) [address] [place], [address], 12/04/2016 11:13:39 12/04/19 17 12/04/2016 PSA, serum [...] CANNO T BE INTER PRETE D ABSOL SQUAXIN EVIDE NCE OF THE PRESE NCE OR ABSEN CE OF [place] CAM[place] SE. Not Available [facility] ([facility]) [address] [facility], [place], [address], 12/04/2016 11:13:39 12/04/19 17 12/04/2016 HbA1c (hemo globi n A1c), blood hemoglobin A1C 6.3 % 4.8-5. 6 above high normal PRE-D IABET ES: 5.7 - 6.4 DIABE MARIA DEL CARMEN: >6.4 GLYCE JUVENTINO CONTR OL FOR ADULT S WITH DIABE MARIA DEL CARMEN: <7.0 Not Available [facility] ([facility]) [address] [facility], [place], [address], 12/04/2016 11:13:40 12/04/1912/04/2016 vitam in D, 25-hy [...] [facility]: [facility] . 2. HEIDE Salazar MF, ALYSSA RAHMAN NC, DAVE OFF-F ERRAR I CHENEY, ET AL. EVALU ATION , TREAT MENT, AND PREVE NTION OF VITAM IN D DEFIC IENCY : AN ENDOC RINE SOCIE TY CLINI ANSELMO PRACT ICE GUIDE LINE. JCEM. 2010; 96(7) :1911 -30. Not Available [facility] ([facility]) [address] [facility], [place], [address], 12/04/2016 11:13:41 12/04/19 17 12/04/2016 CK (crea chuy kinas e), total , serum creatine kinase,total ,serum 62 U/L 24-204 Not Available [facility] ([facility]) [address] [facility], [place], [address], 12/04/2016 11:13:41 09/26/19 16 09/26/2015 imagi ng/di agnos tic resul t No observ ation record ed. [email or web address] Not Available 09/2015 16:44:32 Result Notes None recorded. Problems Name Problem SNOMED Code Status Onset Date Resolution Date Notes Provider Name and Address Organization Details Recorded Time Essential hypertension 63318331 Active Tereso Mathias PA-C Attn: Areli g,[address] [facility], [place], [address], [facility] 6 14:58:12 Hyperlipidemia 49220243 Active Tereso Mathias PA-C Attn: Accountin g,[address] [facility], [place], [address], [facility] 6 14:58:12 Tobacco user 254266909 Active Tereso Mathias PA-C Attn: Areli g,[address] 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 Tereso Mathias PA-C Attn: Areli g,[address], [place], [address], [place] [facility] 6 14:58:12 Glaucoma 05670841 Active Tereso Mathias PA-C Attn: Accountmaryana g,[address], [place], [address], [place] [facility] 6 14:58:12 Screening for malignant neoplasm of prostate Active 2016 Tereso Mathias PA-C Attn: Areli g,[address], [place], [address], [place] [facility] 7 10:01:18 Family history of diabetes mellitus 074078838 Active 2016 Tereso Mathias PA-C Attn: Areli magallon,[address], [place], [address], [place] [facility] 7 10:02:18 Hearing loss 22136606 Active 2016 Tereso Mathias PA-C Attn: Areli magallon,[address], [place], [address], [place] [facility] 7 14:00:42 Problem Notes None recorded. Procedures Surgical History Date Name Laterality Status Provider Name and Address Organization Details Recorded Time 6 Control Implant Replacement completed Tereso Mathias PA-C Attn: Accounting,[address], [place], [address], [place] [facility] 11/19/2015 17:16:51 5 Eye Surgery completed Araceli Miller [place] [facility] 07/15/2015 16:13:26 Imaging Results None [...] temperature Body mass index (BMI) Oxygen saturation Body weight Heart rate Body height Systolic And Diastolic Provider Name and Address Organization Details Last Updated DateTime 6 98.1 [degF] 27.1 kg/m2 97 % 17737.0 83146 g 83 /min 170.18 cm 126/80 mm[Hg] Araceli Miller MA [facility] 6 16:32:52 Date Recorded Body height Body weight Body mass index (BMI) Oxygen saturation Heart rate Body temperature Systolic And Diastolic Provider Name and Address Organization Details Last Updated DateTime 7 170.18 cm 82261.9 1 g 26.5 kg/m2 99 % 65 /min 98.3 [degF] 110/72 mm[Hg] Araceli Miller MA [facility] 7 09:34:57 Date Recorded Body height Body weight Body mass index (BMI) Oxygen saturation Heart rate Body temperature Systolic And Diastolic Provider Name and Address Organization Details Last Updated DateTime 7 170.18 cm 34184.8 g 24.7 kg/m2 98 % 65 /min 97.8 [degF] 120/66 mm[Hg] Araceli Miller MA [facility] 7 09:45:04 Date Recorded Body height Body mass index (BMI) Body temperature Heart rate Body weight Oxygen saturation Systolic And Diastolic Provider Name and Address Organization Details Last Updated DateTime 6 170.18 cm 26.5 kg/m2 98.5 [degF] 73 /min 26364.9 01975 g 98.5 % 122/62 mm[Hg] Araceli Miller MA [facility] 6 14:25:34 Date Recorded Body weight Oxygen saturation Body height Body mass index (BMI) Heart rate Body temperature Systolic And Diastolic Provider Name and Address Organization Details Last Updated DateTime 5 13259.2 32342 g 98 % 170.18 cm 27.8 kg/m2 73 /min 98.1 [degF] 120/70 mm[Hg] Araceli Miller MA [facility] 5 16:18:29 Social History Question Answer Notes LastModified by Organizat ion Details LastModified Time Tobacco Smoking Status Current Every Day Smoker 8 cigarettes per day Tereso Mathias PA-C Attn: Accounting,[address] [place], [address], [facility] 11/19/2015 16:46:10 How Many Years Have You Smoked Tobacco? 16 [email or web address] Information not available 11/19/2015 Sex: Unknown Functional [...] Skin Problems N Anemia N Heart Attack (NM) N Anxiety Disorder N Diabetes N Muscle, [...] ICD10 Code Diagnosis IMO Codes Diagnosis Note [id number] MD Dominique Horne (Adult Med) [address] [place] [address] 07/15/2015 16:01:26 07/18/2015 11:52:23 Essential hypertension 03850885 I10 Hyperlipidemia 64087570 E78.5 Tobacco user 726837350 Z 72.0 Vitamin D deficiency 347 72182 E55.9 [id number] GONZALO Vega (Adult Med) [address] [place] [address] 11/19/2015 15:59:03 11/19/2015 17:39:42 Essential hypertension 66136525 I10 Hyperlipidemia 97245752 E78.5 Tobacco user 848337824 Z 72.0 Vitamin D deficiency 347 96726 E55.9 Blind right eye 02382853 0 H54.41 removed October 07, 2015 Glaucoma 48079151 H40.9 left eye : on 4 types of eye drops. pressure is 13 [id number] MD Dominique Horne (Adult Med) [address] [place] [address] 04/14/2016 13:43:20 04/14/2016 18:05:17 Blind right eye 771663964 H54.41 removed October 07, 2015 Essential hypertension 71211688 I10 Glaucoma 13745677 H40.9 left eye : on 4 types of eye drops. pressure is 13 Hyperlipidemia 08049460 E78.5 Tobacco user 609745505 Z 72.0 Vitamin D deficiency 347 02929 E55.9 [id number] MD Dominique Horne (Adult Med) [address] [place] [address] 11/18/2016 09:02:57 11/18/2016 17:59:18 Essential hypertension 49440616 I10 Hyperlipidemia 79349346 E78.5 Vitamin D deficiency 347 46691 E55.9 Blind right eye 25483111 0 H54.41 removed October 07, 2015 Glaucoma 89254381 H40.9 left eye : on 4 types of eye drops. pressure is 13 Tobacco user 959548047 Z 72.0 Screening for malignant neoplasm of prostate 464143761 Z12.5 Family his tory of diabetes mellitus 106549211 Z83.3 [id number] GONZALO Vega (Adult Med) [address] [place] [phone] 02/24/2017 09:11:33 02/24/2017 17:54:57 Tobacco user 027418434 Z72.0 cannot tolerate Chantix Vitamin D deficiency 347 66023 E55.9 Hyperlipidemia 42558150 E78.5 Essential hypertension 82881028 I10 Glaucoma 49388092 H40.9 left eye : on 4 types of eye drops. pressure is 13 Health Concerns Section Related Observation LastModified by Organization Detai ls LastModified Time None Recorded Concern Status LastModified by Organization Details LastModified Time None Recorded Advance Directives Directive None Recorded Payers Insurance Date Sequence Insurance Name Policy Number Policy Guzman Covered Member ID Guzman Member ID Guarantor Name 02/21/2017 1 [facility] (MEDICARE REPLACEMENT/A DVANTAGE - HMO) [id number] Mark Hines [id number] Mark Hines Notes Date Note Type Note Provider Name and Address Organization Details Recorded Time 11/18/2016 text/html ROS as noted in the HPI no changes Tereso Mathias PA-C Attn: Accounting,[address] [facility], [place], [address], [place] [facility] 11/18/2016 14:01:21 02/24/2017 text/html ROS as noted in the HPI no changes , needs another referral to eye doctor at [facility] , for glaucoma treatment Tereso Mathias PA-C Attn: Accounting,[address], [place], [address], [facility] 02/24/2017 12:42:21
--- OUTSIDE RECORDS SUMMARY | 2025-08-10 06:31 | XMS_ITS | Clinical Summary ---
Author Organization [facility] [address] [facility] Address [address] [place] [address] Care Team Providers Care Director Of Field Sales Name Role Phone Nuris Berger Primary Care Provider [phone] Jonatan Stokes MD Unavailable [phone] Irma Bajwa MD Unavailable Allergies Active Allergy [...] pulmonary disease, unspecified COPD type ([facility]) INHALE 2 PUFFS BY MOUTH TWICE [...] 11/24/2023 Assessment & Plan (11/19/2024 11:45 PM CARBON ELECTRODES SUPERVISOR): Supplement Assessment & Plan (05/20/2024 7:36 PM CDT): Supplement Fatigue 12/12/2022 Assessment & Plan (05/20/2024 7:37 PM CDT): Probably multifactorial. Check labs and followup to re-evaluate Assessment & Plan (11/24/2023 10:35 AM CARBON ELECTRODES SUPERVISOR): Probably multifactorial. Check labs and followup [...] 01/16/2022 Assessment & Plan (11/19/2024 11:44 PM CARBON ELECTRODES SUPERVISOR): Chronic hiccups for 5+ years Has [...] to the ER. ER recommended referral to [place] but patient states he can't go to [...] weeks Assessment & Plan (11/24/2023 10:34 AM CARBON ELECTRODES SUPERVISOR): Patient has persistent chronic hiccups that [...] monitor Assessment & Plan (08/15/2023 5:01 PM CARBON ELECTRODES SUPERVISOR): Chronic hiccups for years. Has tried multiple interventions along with multiple workups from specialists including Neurology pulmonology and GI. Continue current regimen. Stressed importance of limiting water intake when he has the hiccups spells as this has been leading to hyponatremia requiring hospitalization. Assessment & Plan (08/11/2023 8:45 AM CARBON ELECTRODES SUPERVISOR): Patient with chronic hiccups. Have had [...] levels. Assessment & Plan (08/15/2022 6:45 PM CARBON ELECTRODES SUPERVISOR): Patient has consulted with most multiple [...] hiccups. Assessment & Plan (08/15/2023 5:02 PM CARBON ELECTRODES SUPERVISOR): Chronic hiccups for years. Has tried multiple interventions along with multiple workups from specialists including Neurology pulmonology and GI. Continue current regimen. Stressed importance of limiting water intake when he has the hiccups spells as this has been leading to hyponatremia requiring hospitalization. Assessment & Plan (08/11/2023 8:46 AM CARBON ELECTRODES SUPERVISOR): Hyponatremia secondary to water intake with [...] 07/14/2019 Assessment & Plan (11/19/2024 11:44 PM CARBON ELECTRODES SUPERVISOR): Continue PPI p.r.n. Assessment & Plan (05/20/2024 7:35 PM CDT): Continue pantoprazole p.r.n. Assessment & Plan (11/24/2023 10:33 AM CARBON ELECTRODES SUPERVISOR): Continue pantoprazole p.r.n. Assessment & Plan (04/08/2023 8:48 PM CDT): Continue PPI p.r.n. Assessment & Plan (12/12/2022 9:43 PM CDT): Insert PPI Assessment & Plan (08/15/2022 6:45 PM CARBON ELECTRODES SUPERVISOR): Continue PPI prn Assessment & Plan (02/09/2021 8:17 PM CDT): Continue PPI Assessment & Plan (07/29/2020 7:33 AM CARBON ELECTRODES SUPERVISOR): Continue PPI Assessment & Plan (03/27/2020 8:01 AM CDT): Dr. Stokes changed him from omeprazole to Pantoprazole for the hiccups. Pt hasn't noted any difference in GERD sxs (still well controlled) or hiccups. Assessment & Plan (09/26/2019 7:38 AM CARBON ELECTRODES SUPERVISOR): Continue PPI Assessment & Plan (07/14/2019 [...] LDCT Assessment & Plan (11/19/2024 11:44 PM CARBON ELECTRODES SUPERVISOR): Patient with allergies and COPD. Continue Singulair albuterol and Symbicort. Follows with Dr. Valdes. Assessment & Plan (05/20/2024 7:35 PM CDT): Continue per Dr. Valdes. Continue with his Symbicort and albuterol inhalers. Low-dose CT will be scheduled for June 16, 2024. Assessment & Plan (11/24/2023 10:33 AM CARBON ELECTRODES SUPERVISOR): COPD. Continue per Dr. Hammond his warehouse delivery manager Continue Symbicort Singulair and albuterol p.r.n. Assessment & Plan (04/08/2023 8:48 PM CDT): Encouraged smoking cessation. Continue per Dr. Hammond pulmonology. He is on albuterol Symbicort and Singulair Assessment & Plan (12/12/2022 9:43 PM CDT): Stop smoking. Continue per Pulmonary. Continue Symbicort Singulair and albuterol. Continue monitoring low-dose CTs as instructed Assessment & Plan (08/15/2022 6:44 PM CARBON ELECTRODES SUPERVISOR): Stop smoking. Continue current plan per Pulmonary Assessment & Plan (08/01/2021 9:34 PM CARBON ELECTRODES SUPERVISOR): Continue per Pulmonary Dr. Valdes Assessment & Plan (02/09/2021 8:15 PM CDT): Stop smoking. Continue per Dr. Valdes Assessment & Plan (07/29/2020 7:32 AM CARBON ELECTRODES SUPERVISOR): Continue per Pulm Assessment & Plan (03/27/2020 8:00 AM CDT): Stop smoking. He declines starting inhalers or referral to Pulmonary Assessment & Plan (09/26/2019 10:27 PM CARBON ELECTRODES SUPERVISOR): This is a significant, separately identifiable [...] order Assessment & Plan (07/29/2020 7:33 AM CARBON ELECTRODES SUPERVISOR): Needs to repeat ---Dr. Valdes has already ordered Assessment & Plan (03/27/2020 8:00 AM CDT): 06/2019 LDCT Several 2-3mm nodules, probable benign LungRADs 2 --- repeat 06/2020 Assessment & Plan (09/26/2019 10:26 PM CARBON ELECTRODES SUPERVISOR): 06/2019 LDCT Several 2-3mm nodules, probable benign LungRADs 2 --- repeat 06/2020 Hyperplastic rectal polyp 05/20/2019 Overview (05/20/2019): Colonoscopy 01/29/2012 at [facility]--->2021 Assessment & Plan (05/28/2019 7:33 PM CDT): Recvd colonoscopy and due to repeat in 2021 Hiatal hernia 05/20/2019 Mixed hyperlipidemia 05/20/2019 Assessment & Plan (11/19/2024 11:45 PM CARBON ELECTRODES SUPERVISOR): Encouraged patient to follow low fat/low [...] 80 Assessment & Plan (11/24/2023 10:34 AM CARBON ELECTRODES SUPERVISOR): Encouraged patient to follow low fat/low chol diet like the Mediterranean diet. Increase good fats in the diet. Increase exercise. Monitor labs as needed. Continue pravastatin 80 Assessment & Plan (08/15/2023 5:03 PM CARBON ELECTRODES SUPERVISOR): Encouraged patient to follow low fat/low [...] Zetia Assessment & Plan (08/01/2021 9:33 PM CARBON ELECTRODES SUPERVISOR): Encouraged patient to follow fat/low chol [...] statin Assessment & Plan (07/29/2020 7:34 AM CARBON ELECTRODES SUPERVISOR): Encouraged patient to follow fat/low chol diet like the Mediterranean diet. Increase good fats in the diet. Increase exercise. Monitor labs as needed. Assessment & Plan (03/27/2020 8:02 AM CDT): Encouraged patient to continue low fat/low chol diet. Continue exercise. Increase good fats in the diet. Monitor labs as needed. Stable with zetia and pravastatin Assessment & Plan (09/26/2019 7:39 AM CARBON ELECTRODES SUPERVISOR): Encouraged patient to continue low fat/low [...] change Assessment & Plan (08/15/2023 5:03 PM CARBON ELECTRODES SUPERVISOR): Patient is legally blind. Continue with Ophthalmology Assessment & Plan (04/08/2023 8:47 PM CDT): No change Assessment & Plan (03/27/2020 8:02 AM CDT): No change Assessment & Plan (09/26/2019 7:39 AM CARBON ELECTRODES SUPERVISOR): No change Assessment & Plan (05/28/2019 7:35 PM CDT): No change Cigarette smoker 05/20/2019 Assessment & Plan (08/11/2023 8:45 AM CARBON ELECTRODES SUPERVISOR): Encouraged smoking cessation. Discussed 3 minutes. Reviewed options for assistance with cessation. Reviewed moth exterminator sequela associated with smoking. Pt declines [...] desire. Assessment & Plan (08/15/2022 6:44 PM CARBON ELECTRODES SUPERVISOR): Encouraged smoking cessation. Discussed 3 minutes. [...] desire. Assessment & Plan (08/01/2021 9:33 PM CARBON ELECTRODES SUPERVISOR): Encouraged smoking cessation. Discussed 3 minutes. [...] cessation. Reviewed penitentiary sequela associated with smoking. He is slowing down. Offered assistance. May call if decides he wants help Assessment & Plan (07/29/2020 7:34 AM CARBON ELECTRODES SUPERVISOR): Encouraged smoking cessation. Discussed 3 minutes. Reviewed options for assistance with cessation. Reviewed moth exterminator sequela associated with smoking. Pt declines [...] desire. Assessment & Plan (09/26/2019 7:39 AM CARBON ELECTRODES SUPERVISOR): Encouraged smoking cessation. Discussed 3 minutes. Reviewed options for assistance with cessation. Reviewed penitentiary sequela associated with smoking. Pt declines assistance at this time but may contact the office at anytime for further help as they desire. Assessment & Plan (07/14/2019 7:05 PM CDT): Encouraged smoking cessation. Discussed 3 minutes. Reviewed options for assistance with cessation. Reviewed moth exterminator sequela associated with smoking. Pt declines [...] 05/20/2019 Assessment & Plan (11/19/2024 11:45 PM CARBON ELECTRODES SUPERVISOR): Pre-diabetes/hyperglycemia is a precursor to Dm. [...] diabetes. Assessment & Plan (11/24/2023 10:34 AM CARBON ELECTRODES SUPERVISOR): Pre-diabetes/hyperglycemia is a precursor to Dm. Stressed importance of working on diet (decrease your simple sugars and one carbohydrate with each meal) and increase you exercise to achieve weight loss and this will help prevent you from progressing to diabetes. Assessment & Plan (08/15/2023 5:03 PM CARBON ELECTRODES SUPERVISOR): Pre-diabetes/hyperglycemia is a precursor to Dm. [...] diabetes. Assessment & Plan (08/01/2021 9:33 PM CARBON ELECTRODES SUPERVISOR): Pre-diabetes/hyperglycemia is a precursor to Dm. [...] diabetes. Assessment & Plan (07/29/2020 7:34 AM CARBON ELECTRODES SUPERVISOR): Pre-diabetes is a precursor to Dm. [...] labs Assessment & Plan (09/26/2019 10:27 PM CARBON ELECTRODES SUPERVISOR): This is a significant, separately identifiable [...] 025 Assessment & Plan (11/19/2024 11:45 PM CARBON ELECTRODES SUPERVISOR): Encouraged healthy lifestyle, good nutrition and exercise. Encouraged Calcium and Vitamin D and weight bearing exercise for bone health. Reviewed immunizations Reviewed age appropirate screenings. BMI 23.0-23.9, adult 06/20/2024 025 Assessment & Plan (10/30/2024 8:57 AM CARBON ELECTRODES SUPERVISOR): Weight/BMI is in healthy range. Continue [...] 024 Assessment & Plan (11/24/2023 10:35 AM CARBON ELECTRODES SUPERVISOR): Encouraged healthy lifestyle, good nutrition and exercise. Encouraged Calcium and Vitamin D and weight bearing exercise for bone health. Reviewed immunizations Reviewed age appropirate screenings. Need for influenza vaccination 08/15/2023 11/24/2023 Assessment & Plan (08/15/2023 5:04 PM CARBON ELECTRODES SUPERVISOR): Flu vaccine updated in the office today BMI 22.0-22.9, adult 07/22/2023 024 Assessment & Plan (08/11/2023 8:12 AM CARBON ELECTRODES SUPERVISOR): Weight/BMI is in healthy range. Continue [...] 04/03/2023 Assessment & Plan (08/15/2022 6:45 PM CARBON ELECTRODES SUPERVISOR): Flu updated in the office today [...] test outpatient. Was referred to an outside motor vehicle license clerk. Encouraged to consider seeing a [facility] [...] 022 Assessment & Plan (08/01/2021 7:28 AM CARBON ELECTRODES SUPERVISOR): Weight/BMI is in healthy range. Continue healthy lifestyle to maintain. Medicare annual wellness visit, subsequent 08/01/2021 08/15/2022 Assessment & Plan (08/01/2021 9:34 PM CARBON ELECTRODES SUPERVISOR): Encouraged healthy lifestyle, good nutrition and exercise. Encouraged Calcium and Vitamin D and weight bearing exercise for bone health. Reviewed immunizations. Reviewed age appropirate screenings. Medicare Wellness Documentation is completed within the chart Fatigue 05/17/2021 05/02/2022 Assessment & Plan (08/01/2021 9:34 PM CARBON ELECTRODES SUPERVISOR): Probably multifactorial. Check labs and followup [...] 024 Assessment & Plan (11/24/2023 10:34 AM CARBON ELECTRODES SUPERVISOR): Weight/BMI is in healthy range. Continue [...] 05/02/2022 Assessment & Plan (07/29/2020 7:34 AM CARBON ELECTRODES SUPERVISOR): Probably multifactorial. Check labs and followup to re-evaluate Need for immunization against influenza 07/29/2020 11/24/2020 Assessment & Plan (07/29/2020 7:34 AM CARBON ELECTRODES SUPERVISOR): Updated in office today BMI 22.0-22.9, adult 03/27/2020 024 Assessment & Plan (05/20/2024 7:37 PM CDT): Weight/BMI is in healthy range. Continue healthy lifestyle to maintain. Assessment & Plan (07/29/2020 7:34 AM CARBON ELECTRODES SUPERVISOR): Weight/BMI is in healthy range. Continue [...] 020 Assessment & Plan (09/26/2019 7:39 AM CARBON ELECTRODES SUPERVISOR): Weight/BMI is in healthy range. Continue healthy lifestyle to maintain. Annual physical exam 09/26/2019 020 Assessment & Plan (09/26/2019 7:40 AM CARBON ELECTRODES SUPERVISOR): Encouraged healthy lifestyle, good nutrition and exercise. Encouraged Calcium and Vitamin D and weight bearing exercise for bone health. Reviewed immunizations Reviewed age appropirate screenings. Influenza vaccine refused 09/26/2019 Assessment & Plan (09/26/2019 7:40 AM CARBON ELECTRODES SUPERVISOR): Encouraged vaccine. Reviewed risks/ benefits. Patient refuses and accepts risks. Esophagitis determined by endoscopy 05/20/2019 05/02/2022 Gastritis 05/20/2019 05/02/2022 Essential (primary) hypertension 05/20/2019 05/20/2024 Assessment & Plan (11/24/2023 10:34 AM CARBON ELECTRODES SUPERVISOR): Bp is stable/in acceptable range for any co-morbidities. Encouraged to limit sodium intake and exercise for weight control. Continue losartan 50 Assessment & Plan (08/15/2023 5:04 PM CARBON ELECTRODES SUPERVISOR): Bp is stable/in acceptable range for any co-morbidities. Encouraged to limit sodium intake and exercise for weight control. Continue per Dr. Curtis Assessment & Plan (08/11/2023 8:45 AM CARBON ELECTRODES SUPERVISOR): Bp is stable/in acceptable range for [...] losartan Assessment & Plan (08/15/2022 6:44 PM CARBON ELECTRODES SUPERVISOR): Bp is stable/in acceptable range for [...] 50 Assessment & Plan (08/01/2021 9:33 PM CARBON ELECTRODES SUPERVISOR): Bp is stable/in acceptable range for [...] Losartan/HCTZ Assessment & Plan (07/29/2020 7:33 AM CARBON ELECTRODES SUPERVISOR): Bp is stable/in acceptable range for any co-morbidities. Encouraged to limit sodium intake and exercise for weight control. Losartan and HCTZ Assessment & Plan (03/27/2020 8:00 AM CDT): Bp is stable/in acceptable range for any co-morbidities. Encouraged to limit sodium intake and exercise for weight control. Continue losartan/HCTZ Assessment & Plan (09/26/2019 7:38 AM CARBON ELECTRODES SUPERVISOR): Bp is stable/in acceptable range for [...] 01/21/2022 Assessment & Plan (08/01/2021 9:34 PM CARBON ELECTRODES SUPERVISOR): Persistent hiccups. Has consulted with multiple [...] omeprazole Assessment & Plan (07/29/2020 7:32 AM CARBON ELECTRODES SUPERVISOR): Continue per ENT/Pulm. He is responding to BID omeprazole. Will monitor Assessment & Plan (03/27/2020 7:59 AM CDT): Dr. Stokes started him on Pantoprazole. He hasn't noted much difference. Needs to followup to complete workup. Encouraged patient to call and make appointment. Assessment & Plan (09/26/2019 10:26 PM CARBON ELECTRODES SUPERVISOR): This is a significant, separately identifiable problem that was evaluated and managed on the same day as the wellness exam Less frequent than in the past. Continue the PPI and monitor Rx sent to pharmacy. Assessment & Plan (08/24/2019 9:04 AM CARBON ELECTRODES SUPERVISOR): Improving with the PPI. Continue PPI [...] 2018 Assessment & Plan (08/24/2019 9:04 AM CARBON ELECTRODES SUPERVISOR): Encouraged vaccine. Reviewed risks/ benefits. Patient [...] Care Team Description 07/31/2025 [facility] ED Outreach [address] [address] Roxana Fernandez MA 07/31/2025 [facility]E IP Outreach [address] [address] Roxana Fernandez MA 07/31/[address] [place] [phone] Nuris Berger PA 06/26/2025 9:30 AM CDT Office Visit [address] [place] [phone] Nuris Berger PA Hyponatremia (Primary Dx); Psychogenic polydipsia; Chronic hiccups; BMI 23.0-23.9, adult; Generalized body aches; Legally blind; Flu vaccine need 06/21/[address] [place] [phone] Nuris Berger PA 06/20/2025 [facility]E IP Outreach [address] [address] Bro[address] MA 06/19/2025 [facility]BBEI IP Outreach [address] [address] [address] MA 06/18/2025 DEB[facility]E IP Outreach [address] [address] Brooke [address] MA 06/01/[address] [place] [phone] Nuris Berger PA 05/30/2025 DEB[facility]E IP Outreach [address] [address] Hilton James LPN 05/29/2025 Orders Only [facility] Health Information Management [address] [place] [address] Scanning, Provider from Last 3 Months Immunizations [...] Recorded In the past 12 months has [employer], [employer], oil, or water [employer] threatened to shut off services in your [...] How often do you attend chur or roman catholic services? Patient declined 12/03/2023 [...] place to sleep or slept in a jail (including now)? No 12/03/2023 AUDIT-C Answer Date [...] on file Legal Sex Male 12:22 AM CARBON ELECTRODES SUPERVISOR Gender Identity Not on file Sexual [...] Read Routine (OP Routine) 10/03/2024 9:25 AM CARBON ELECTRODES SUPERVISOR Pulmonary nodules HEPATITIS PANEL, ACUTE Routine 05/03/2022 [...] Nuris ROBLES LAB BLOOD ORDERABLES Final Result [email or web address] [id number] [id number] * CT Chest WO Contrast F/U Lung Screen Protocol (10/03/2024 9:25 AM CARBON ELECTRODES SUPERVISOR) Anatomical Region Laterality Modality Chest N/A Computed Tomogra phy 10/03/2024 7:11 PM CARBON ELECTRODES SUPERVISOR Narrative 10/03/2024 7:17 PM CARBON ELECTRODES SUPERVISOR EXAM DESCRIPTION: CT CHEST WO CONTRAST [...] Estuardo Ortiz M.D. KT T: Report ID: [id number] Reading Location: [place] [address] Tasia Hoffman MD IMG CT PROCEDURES Final [...] OR DERABLES Final Result Performing Organization Address City/State/[facility] Co de Phone Number ANABELA [address] [facility] Department of Laboratories [place], [place] [id number] * (ABNORMAL) COLONOSCOPY (07/14/2021) Jame Mg MD HEALTH MAINTENANCE Edited Result - Final from Last 3 Months or Most Recently Relevant to Health Maintenance Insurance [employer] MEDICARE GOLD T MEDICARE [facility] T MEDICARE [facility] Advance Directives For more information, please contact: [phone] * Full Code (Latest Code Status on [...] 10:34 PM 11/16/2022 9:56 PM Care Teams Director Of Field Sales Relationship Specialty Start Date End Date Nuris Berger PA [address] [facility] [address] [place] [address] PCP - General Internal Medicine 12/28/18 Jonatan Stokes MD [address] [place] [address] Consulting Physician Otolaryngology 03/27/20 Irma Bajwa MD [address] [facility] [place] [address] Consulting Physician Neurology 05/07/22
--- OUTSIDE RECORDS SUMMARY | 2025-08-10 06:31 | XMS_ITS | Encounter Summary ---
Author Organization [facility] Healthcare Address [address] [place] [address] Care Team Providers Care Driver Helper Name Role Phone Nuris Berger Primary Care Provider [phone] Jonatan Stokes MD Unavailable [phone] Irma Bajwa MD Unavailable [phone] Ayla Dugan LPN Unavailable [phone] [place] Unavailable Unavailable Roxana Fernandez MA Unavailable [phone] Encounter Details Date Type Department Care Team (Late st Contact Info) Description 12/26/2024 Orders Only [facility] Health Information Management [address] [place] [address] Scanning, Provider Social History Tobacco Use Types Packs/Day Years Used Date Smoking Tobacco: Former Cigarettes 0.8 40 0 09/1981 - 09/2021 Smokeless Tobacco: Never Alcohol Use Standard Drinks/Week Comments Yes 0 (1 standard drink = 0.6 oz pur e alcohol) social [facility] Utilities Answer Date Recorded In the past 12 months has [employer] electric, gas, oil, or water company threatened [...] any clubs o r organizations such as confucianist groups, unions, fraternal or athletic groups, or [...] on file Legal Sex Male 12:22 AM EXPORT COORDINATOR Gender Identity Not on file Sexual Orientation [...] on filedocumented in this encounter Care Teams Driver Helper Relationship Specialty Start Date End Date Nuris Berger PA [address] [facility] [address] [place] [address] PCP - General Internal Medicine 12/28/18 Jonatan Stokes MD [address] [place] [address] Consulting Physician Otolaryngology 03/27/20 Irma Bajwa MD [address] [facility] [place] [address] Consulting Physician Neurology 05/07/22 Ayla Dugan LPN [address] [place] [address] [address] [place] [address] Pantograph Watcher 03/30/25 03/30/25 Brooke Plaza MA [address] [place] [address] ACO Care Window Framer 06/18/25 06/19/25 Roxana Fernandez MA [address] [place] [address] ACO Care Window Framer 07/31/25 07/31/25 documented as of this encounter
--- OUTSIDE RECORDS SUMMARY | 2025-08-10 06:31 | XMS_ITS | Encounter Summary ---
Author Organization [facility] Healthcare Address [address] [place] [address] Care Team Providers Care Accounting Manager Cpa Name Role Phone Nuris Berger Primary Care Provider [phone] Jonatan Stokes MD Unavailable [phone] Irma Bajwa MD Unavailable [phone] Ayla Dugan LPN Unavailable [phone] MA Unavailable Unavailable Roxana Fernandez MA Unavailable [phone] Encounter Details Date Type Department Care Team (Late st Contact Info) Description 03/26/2025 Orders Only [facility] Health Information Management [address] [place] [address] Scanning, Provider Social History Tobacco Use Types Packs/Day Years Used Date Smoking Tobacco: Former Cigarettes 0.8 40 0 09/1981 - 09/2021 Smokeless Tobacco: Never Alcohol Use Standard Drinks/Week Comments Yes 0 (1 standard drink = 0.6 oz pur e alcohol) social [facility] Utilities Answer Date Recorded In the past 12 months has [employer] electric, gas, oil, or water company [...] on file Legal Sex Male 12:22 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 DIRECTOR OF RESIDENCE LIFE Gender Identity Not on file Sexual Orientation [...] on filedocumented in this encounter Care Teams Accounting Manager Cpa Relationship Specialty Start Date End Date Nuris Berger PA [address] [facility] [address] [place] [address] PCP - General Internal Medicine 12/28/18 Jonatan Stokes MD [address] [place] [address] Consulting Physician Otolaryngology 03/27/20 Irma Bajwa MD [address] [facility] [place] [address] Consulting Physician Neurology 05/07/22 Ayla Dguan LPN [address] [place] [address] [address] [place] [address] Electronic Gaming Device Supervisor 03/30/25 03/30/25 Brooke Plaza MA [address] [facility] [address] [place] [address] ACO Care Production Consultant 06/18/25 06/19/25 Roxana Fernandez MA [address] [place] [address] ACO Care Production Consultant 07/31/25 07/31/25 documented as of this encounter
--- OUTSIDE RECORDS SUMMARY | 2025-08-10 06:31 | XMS_ITS | Encounter Summary ---
Author Organization [facility] Healthcare Address [address] [place] [address] Care Team Providers Care Bench Press Operator Name Role Phone Nuris Berger Primary Care Provider [phone] Jonatan Stokes MD Unavailable [phone] Irma Bajwa MD Unavailable [phone] Brooke Plaaz MA Unavailable Unavailable Roxana Fernandez MA Unavailable [phone] Encounter Details Date Type Department Care Team (Late st Contact Info) Description 05/29/2025 Orders Only [facility] Health Information Management [address] [place] [id number] Scanning, Provider Social History Tobacco Use Types Packs/Day Years Used Date Smoking Tobacco: Former Cigarettes 0.8 40 0 09/1981 - 09/2021 Smokeless Tobacco: Never Alcohol Use Standard Drinks/Week Comments Yes 2 (1 standard drink = 0.6 oz pur e alcohol) social [facility] Utilities Answer Date Recorded In the past 12 months has [facility] electric, gas, oil, or water company threatened [...] you attend [facility] or scientologist services? Patient declined 12/03/2023 Do [...] in a halfway (including now)? No 12/03/2023 AUDIT-C Answer Date [...] on file Legal Sex Male 12:22 AM [employer]SE [employer] Gender Identity Not on file Sexual Orientation [...] on filedocumented in this encounter Care Teams Bench Press Operator Relationship Specialty Start Date End Date Nuris Berger PA [address] [facility] [address] [place] [address] PCP - General Internal Medicine 12/28/18 Jonatan Stokes MD [address] [place] [address] Consulting Physician Otolaryngology 03/27/20 Irma Bajwa MD [address] [facility] [place] [address] Consulting Physician Neurology 05/07/22 Brooke Plaza MA [address] [place] [address] [employer]CO Care Engine Designer 06/18/25 06/19/25 Roxana Fernandez MA [address] [place] [address] [employer] Care Engine Designer 07/31/25 07/31/25 documented as of this encounter
[2025-08-10 06:33] LABS: Hematocrit 26.5 % (42.0-52.0); Hemoglobin 9.2 g/dL (14.0-18.0); Immature Granulocyte Percent A 0.4 % (0-0.5); Lymphocytes Absolute Auto 0.66 K/mm3 (0.9-3.2); Mean Corpuscular HGB Conc 34.7 g/dl (32-36); Mean Corpuscular Hemoglobin 29.6 pg (26-34); Mean Corpuscular Volume 85.2 fl (80-100); Nucleated Red Blood Cells Absolute Auto 0.000 K/mm3 (0.0-0.012); Nucleated Red Blood Cells Perc 0.0 % (0.0-0.2); Platelet Count Result 203 k/mm3 (150-375); Red Blood Count 3.11 M/mm3 (4.6-6.20); White Blood Count 11.0 K/mm3 (4.5-10.0)
[2025-08-10 06:40] LABS: Add Urine Microscopic? NO; Appearance Urine Clear (Clear); Glucose Urine UA Negative (Negative); Leukocyte Esterase Ur Negative LEU/UL (Negative); Nitrate Urine Negative (Negative); Specific Grav Ur 1.003 (1.001-1.035)
[2025-08-10 07:00] LABS: Alanine Aminotransferase 11 U/L (6-50); Albumin Level 4.0 g/dL (3.5-5.1); Alkaline Phosphatase 61 U/L (38-126); Anion Gap 8 mmol/L (4-12); Aspartate Amino Transferase 24 U/L (17-59); Bilirubin,Total 0.5 mg/dL (0.2-1.3); Blood Urea Nitrogen 7 mg/dL (9-20); Calcium 8.7 mg/dL (8.4-10.2); Carbon Dioxide 22 mmol/L (22-30); Chloride 86 mmol/L (98-107); Estimated Glomerular Filt Rate > 60; Glucose 108 mg/dL (65-110); Potassium 4.4 mmol/L (3.4-5.0); Sodium 116 mmol/L (137-145); Total Protein 6.8 g/dL (6.3-8.2)
[2025-08-10 07:11] LABS: Influenza A QL RT-PCR Negative (Negative); Influenza B QL RT-PCR Negative (Negative); RSV RNA, RT-PCR Negative (Negative); SARS-CoV-2 RNA PCR Negative (Negative)
--- NOTE | 2025-08-10 07:13 | PM.IMHP ---
H&P: HPI History of Present Illness Date/Time: 08/10/25 07:13 Chief Complaint: Hyponatremia and hippcups Narrative: Patient is a 64-year-old male with a past medical history of chronic hyponatremia , psychogenic polydipsia, chronic hiccups, hard of hearing and blind admitted to ED due to Hyponatremia. As mentioned previously he has chronic hiccups and was drinking lot of water. In the ED patient was given Thorazine and reports hiccups is better. Urine electrolyte,Na has been ordered including TSH. Record review indicates the patient was admitted multiple times and has been educated about polydipsia but unfortunately noncompliant with instructions. Of note Patient has visited the ED multiple times for lightheadedness, nausea and vomiting.Patient is admitted in the setting of hyponatremia and currently on 2 L fluid restriction. Sodium check q.4 hours. Nephrology consulted from ED.Called his spouse and left VM Review of Systems Review of Systems: As reviewed above in HPI [facility] Past Medical History Medical History Hearing loss Impacted cerumen, left ear Asthma-COPD overlap syndrome Wears hearing aid in both ears Adenomatous colon polyp Hiatal hernia Other osteonecrosis, left femur Other osteonecrosis, right femur Psychogenic polydipsia Erosive esophagitis Anemia of chronic disease Chronic hiccups Hyponatremia Tobacco abuse Normocytic anemia Glaucoma Legally blind. Hyperlipidemia Hypertension Surgical History Surgical History History of enucleation of eye Right, secondary to recurrent infection. Family History Family History Grandparent Acute myocardial infarction Mother Acute myocardial infarction Skin cancer Father Acute myocardial infarction Sibling Cancer Social History Social History Social History: Surrogate decision maker: Svitlana Hines, . Code status: Full code. Smoking packs per day: 1.5 Smoking cigarettes per day: 30.0 Years smoked: 50 Smoking pack-years: 75.00 Smoking status: Former smoker Tobacco type: cigarettes Second hand tobacco smoke exposure: No Smoking end date: 05/21/20 Alcohol intake: former Substance use: never Substance use type: does not use Do You Feel Safe in your Home?: Yes Lack of Transportation: No Lack of Food: Never True Current Housing: I Have Housing Concerned About Future Housing: No Difficulty Paying Gas/Electric Bills: No Difficulty Paying for Meds: No Currently Unemployed: No Education: High School Diploma/GED Difficulty w/ Childcare or Family Care: No Living arrangements: with family Additional living arrangements comments: The patient lives with his of 43 years in [place]. He and his had 4 children 1 of which at . His remaining children are healthy. 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 Spiritual care concerns: No Meds Home Medications and Allergies Home Medications ?Medication ?Instructions ?Recorded ?Confirmed ?Type losartan 50 mg tablet 50 mg PO DAILY 03/02/21 08/10/25 History montelukast 10 mg tablet 10 mg PO HS 03/02/21 08/10/25 History pravastatin 80 mg tablet 80 mg PO DAILY 03/02/21 08/10/25 History cholecalciferol (vitamin D3) 25 25 mcg PO DAILY 03/29/21 08/10/25 History mcg (1,000 unit) capsule (Vitamin D3) cyanocobalamin (vitamin B-12) 100 2,000 mcg PO DAILY 03/29/21 08/10/25 History mcg tablet albuterol sulfate 90 mcg/actuation 1 inh inhalation QID PRN shortness 05/02/21 08/10/25 Rx aerosol inhaler of breath or wheezing #8.5 grams dorzolamide 22.3 mg-timolol 6.8 1 drp LEFT EYE TID 06/29/24 08/10/25 History mg/mL eye drops budesonide-formoterol HFA 80 2 puff inhalation Q12H 12/26/24 08/10/25 History mcg-4.5 mcg/actuation aerosol inhaler gabapentin 300 mg capsule 300 mg PO DAILY 12/26/24 08/10/25 History chlorpromazine 25 mg tablet 25 mg PO Q6H PRN Hiccups #30 tabs 01/11/25 08/10/25 Rx aspirin 81 mg tablet,delayed 81 mg PO DAILY 03/25/25 08/10/25 History release (Adult Aspirin Regimen) baclofen 5 mg tablet 5 mg PO BID 04/24/25 08/10/25 History famotidine 20 mg tablet 20 mg PO Q12HR #60 tabs 06/15/25 08/10/25 Rx chlorpromazine 25 mg tablet 25 mg PO Q6H PRN Hiccups #60 tabs 07/27/25 08/10/25 Rx Allergies Allergy/AdvReac Type Severity Reaction Status Date / Time No Known Allergies Allergy Verified 08/10/25 08:49 Vital Signs Vital Signs - 24 hr 08/10/25 06:04 Temperature 98.4 F Pulse Rate 80 Respiratory Rate 20 Blood Pressure 163/77 H Pulse Oximetry 98 Oxygen Delivery Room Air Exam Narrative: GENERAL: non-toxic appearing, in no acute distress. Hiccup frequently during exam HEAD: Normocephalic, atraumatic. EYES: Bilateral glaucoma resulting in blindness EARS: Bilateral hearing aids intact; hard of hearing NOSE: Normal no drainage. THROAT: Pharynx clear, no exudate. NECK: Trachea midline. No adenopathy, no masses. RESPIRATORY: Airway patent, respirations nonlabored. CTA. CARDIOVASCULAR: Regular rate and rhythm GASTROINTESTINAL: Abdomen is soft and nontender. No organomegaly. Bowel sounds normal in all quadrants. GENITOURINARY: Defer MUSCULOSKELETAL: Moves all extremities. No gross deformities. SKIN: Warm, dry, normal color. NEURO: A&O X4. Speech clear. No ataxia or focal neurological deficits. No facial asymmetry. PSYCHIATRIC: Normal interaction H&P: Results Labs Labs: Short CBC 08/10/25 Range/Units 06:24 WBC 11.0 H (4.5-10.0) K/mm3 Hgb 9.2 L (14.0-18.0) g/dL Hct 26.5 L (42.0-52.0) % Plt Count 203 (150-375) k/mm3 [facility] 08/10/25 06:24 Sodium 116 L* Potassium 4.4 Chloride 86 L Carbon Dioxide 22 BUN 7 L Creatinine 0.70 Glucose 108 Calcium 8.7 Liver Function 08/10/25 Range/Units 06:24 Total Bilirubin 0.5 (0.2-1.3) mg/dL AST 24 (17-59) U/L ALT 11 (6-50) U/L Alkaline Phosphatase 61 (38-126) U/L Albumin 4.0 (3.5-5.1) g/dL Urine 11/21/25 Range/Units 06:24 Urine Color Yellow (Yellow) Urine Appearance Clear (Clear) Urine pH 7.0 (5.0-9.0) Ur Specific [place] 1.003 (1.001-1.035) Urine Protein Negative (Negative) mg/dL Urine Glucose (UA) Negative (Negative) mg/dL Assessment and Plan Assessment and plan (1) Hyponatremia: Code(s): E87.1 - Hypo-osmolality and hyponatremia Status: Acute Assessment and Plan: HypoNa -fluid restriction 2 L -Pending TSH -if necessary Cortisol will be measured -Possible due to psychogenic polydipsia -Euvolemia -BMP q 4 hrs -Goal 6-8 meq/l in 24 hr period -Urine Na and urine osmolarity pending -nephrology following (2) Chronic hiccups: Code(s): R06.6 - Hiccough Status: Acute Assessment and Plan: Given Thorazine in ED Continue chlorpromazine 25 mg p.o. q.6 hours p.r.n. for hiccups (3) Hypertension: Qualifiers: Hypertension type: primary hypertension Qualified Code(s): I10 - Essential (primary) hypertension Code(s): I10 - Essential (primary) hypertension Status: Chronic Assessment and Plan: Continue losartan Plan Code status full code DVT prophylaxis Lovenox Hospitalist [facility] Advance Care Plan I have confirmed that the patient's Advanced Care Plan is present, code status is documented, or surrogate decision maker is listed in patient medical record.: Yes Medication Reconciliation I have utilized all available resources to obtain, update and review the patients current medications (includes all prescriptions, OTC, herbals, cannabis, and nutritional supplements).: Yes
--- NOTE | 2025-08-10 08:02 | WPCEDHO ---
ED Hand Off Checklist All vitals saved:Yes IV Site documented:Yes All med administrations documented:Yes Triage Note Triage Note Pt arrives to ED w/ c/o 08/10/25 06:04 generalized weakness, nausea, vomiting, dizziness. Pt w/ hx hyponatremia, takes Thorazine. Pt states he has been drinking a lot of water. Allergies No Known Allergies Allergy (Verified 07/31/25 08:12) Family History (Last Reviewed 08/10/25 @ 06:09 by Shawn Mary MD) Grandparent Acute myocardial infarction Mother Acute myocardial infarction Skin cancer Father Acute myocardial infarction Sibling Cancer Administered/Completed Medications Discontinued Medications Chlorpromazine HCl (Chlorpromazine Hcl 25 Mg Tablet) 25 mg PO ONCE STA Stop: 08/10/25 06:07 Last Admin: 08/10/25 06:27 Dose: 25 mg Documented By: BENJAMIN Notes 08/10/25 05:56 Nurse Note by aMli Naranjo states that she has to go to work and will not be available via cell phone. States no one else will be available to pick him up if he is discharged and she will be unavailable until around 1700 today. States that she can be reached at the [facility] in [place] if needed. Initialized on 08/10/25 05:56 - END OF NOTE Interventions/Assessments General Assessment Start: 08/10/25 05:54 Freq: Status: Complete Protocol: Document 08/10/25 06:04 BENJAMIN (Rec: 08/10/25 06:08 BENJAMIN [id number]) GA Neurological Assessment Neurological No Assessment WNL Level of Alert,Awake Consciousness Arousable to Verbal Orientation Oriented to Person,Oriented to Place,Oriented to Time Behavior Cooperative Patient Able to Comprehend Comprehension Memory Description Intact Ability to Maintain Normal Balance Facial Symmetry Symmetrical GA HEENT Assessment HEENT Assessment WNL No Head Symptoms Dizziness Neck Symptoms None Neck Movement No Limitations GA Cardiovascular Assessment Cardiovascular Yes Assessment WNL Cardiovascular Dizziness,Lightheadedness,Nausea Symptoms Skin Description Normal Color Heart Sounds Normal Jugular Vein None Distention GA Respiratory Assessment Symptoms None Effort Normal Pattern Regular Cough Description None Oxygen Delivery Room Air Method GA Gastrointestinal Assessment Gastrointestinal No Assessment WNL Gastrointestinal Nausea,Vomiting Symptoms Pattern Normal Flatus Present GA Genitourinary Assessment Genitourinary WNL Parameters Genitourinary None Symptoms Voiding Method Urinal Urine Color Light/Pale Urine Clear Characteristics IV / Saline Lock, Insert Start: 08/10/25 05:54 Freq: Status: Active Protocol: Document 08/10/25 06:30 HNK (Rec: 08/10/25 06:30 HNK [id number]) IV Assessment Peripheral Access Left Wrist IV Catheter Access Initiated IV Insertion Date 08/10/25 IV Insertion Time 06:30 Catheter Gauge 20 IV Insertion 1 Attempts Ultrasound Used for No Placement IV Site Assessment WNL IV Care and WNL Maintenance Last Vital Signs Temperature 98.4 F 08/10/25 06:04 Pulse Rate 86 08/10/25 07:46 Respiratory Rate 25 H 08/10/25 07:46 Pulse Oximetry 96 08/10/25 07:46 Blood Pressure 124/66 08/10/25 07:46 Blood Pressure Mean 83 08/10/25 07:46 Blood Pressure Position Supine 08/10/25 06:04 Oxygen Delivery Room Air 08/10/25 06:04 Weight 71.9 kg 08/10/25 06:04 Last Result - Abnormals Only WBC 11.0 K/mm3 (4.5-10.0) H 08/10/25 06:24 RBC 3.11 M/mm3 (4.6-6.20) L 08/10/25 06:24 Hgb 9.2 g/dL (14.0-18.0) L 08/10/25 06:24 Hct 26.5 % (42.0-52.0) L 08/10/25 06:24 Neut % (Auto) 88.0 % (45.5-73.1) H 08/10/25 06:24 Lymph % (Auto) 6.0 % (18.3-44.2) L 08/10/25 06:24 Lymph # (Auto) 0.66 K/mm3 (0.9-3.2) L 08/10/25 06:24 Abs Immat Gran (auto) 0.04 K/mm3 (0.00-0.031) H 08/10/25 06:24 Absolute Neuts (auto) 9.7 K/mm3 (1.3-6.7) H 08/10/25 06:24 Sodium 116 mmol/L (137-145) L* 08/10/25 06:24 Chloride 86 mmol/L (98-107) L 08/10/25 06:24 BUN 7 mg/dL (9-20) L 08/10/25 06:24 Most Recent Suicide Severity Rating Suicide Severity Rating NO RISK INDICATED 08/10/25 06:04
--- NOTE | 2025-08-10 08:42 | ADMGEN ---
This patient, Mark Hines, was admitted to [facility] Surg Room 315-02. Patient/family oriented to hospital policies and general routines including ID bracelet, bed and alarms, visiting hours, pain management, procedures, bathroom and other care routines, personal items, smoking policy, room service/diet, and visiting hours. Information on how to activate the Rapid Response Team has been discussed. Patient/Family are encouraged to report perceived risks to care and to ask questions if they do not understand what they are told or what they should do.
--- NOTE | 2025-08-10 10:01 | P.CONNP_ITS ---
Assessment and Plan Assessment and plan (1) Hyponatremia: Code(s): E87.1 - Hypo-osmolality and hyponatremia Status: Acute Assessment and Plan: * acute on chronic * baseline sodium runs around 121 - 131mmol/L * noted history that dates back ~ 4 -5 years ago * sodium levels on previous ER visits noted * acute drop in sodium usually due to increased free water intake * chronic hyponatremia due to: * significant free water intake in general * intermittent thorazine use * underlying lung disease(?) * extensive work-up/evaluation noted on previous hosptializations noted: * normal TSH and cortisol * brain imaging negative * CXR negative * SPEP okay * no SSRIs, narcotics, or diuretic thera * given history of overcorrection in the past, d/c fluid restriction * has required DDAVP and D5W IVFs in the past for overcorrection * goal of therapy is a change of 6 - 8mmol/L in 24 hours * continue to follow serial sodium levels... I will continue to follow the patient with you while he remains hospitalized and make further recommendations as deemed necessary. Thank you for allowing me to participate in the care of this patient. L History of Present Illness Reason for Consult Consult date: 08/10/25 Reason for consult: hyponatremia (acute on chronic) Chief Complaint Chief complaint: Acute on Chronic Hyponatremia from Polydipsia History of Present Illness Narrative: The patient is a 64-year-old male with a past medical history as outlined below who presented to [facility] Emergency Room for complaints of lightheadedness and generalized weakness along with nausea and vomiting. The patient has had numerous ER visits and hospitalizations here at [facility] for acute on chronic hyponatremia. His chronic hyponatremia is secondary to his excessive free water fluid intake in an attempt to treat his chronic hiccups. He has been counseled on his numerous hospitalizations about the dangers of excessive free water intake but it is difficult for him to comply with this given his persistent take ups. In the past, his symptoms of lightheadedness, weakness, nausea, vomiting and sometimes confusion usual late to acute worsening of his sodium level. Given his above complaints, he presented to the ER for further assessment. Workup and evaluation emergency room demonstrated the patient be hemodynamically stable and in no acute distress. Routine blood tests were done which demonstrated normal renal function but with a sodium of 116 millimoles per L. In spite of this electrolyte abnormality, he was neurologically intact and denies any other acute issues or complaints other than the above-noted presenting symptoms. On further questioning, he once again endorsed drinking an excessive amount of water in effort to try in treat his hiccups although he did not specify how much water he had taken although in the past, it it been upwards in the amount of gallons of water. By the time of his arrival to the ER, it would seem that his symptoms of nausea and vomiting had subsided in the otherwise felt reasonably well. He was initiated on a free water fluid restriction and given Thorazine for his hiccups and subsequently admitted to the hospital for further evaluation and therapy. Since his admission, his sodium level has already corrected up to 122 millimoles per L by recent blood work which is somewhat consistent with his previous hospitalizations of auto correction with just minimal interventions. Unfortunately, during his previous hospitalizations, he sometimes has a tendency to over correct resulting in significant interventions including D5W IV fluids as well as DDAVP. However, in spite of these episodes of over-correction and he really never has any neurological sequelae arguing that he probably has these excessive fluctuations in his sodium level even at baseline and has outpatient. Renal consultation was requested due to his acute on chronic hyponatremia. The patient is somewhat familiar to me as I have taking care of him on his numerous previous hospitalization at [facility] for this same issue. The patient was first told about his low sodium levels approximately 4 - 5 years ago during a previous hospital stay. I first met the patient during his December 2024 admission with regard to his chronic hyponatremia. Interestingly, during that brief hospital stay, his sodiums level seem to auto correct at a reasonable pace without any specific interventions to speak of. He was subsequently discharged and continued on his outpatient sodium tablets with presumed stability in his sodium level. He has had several other ER visits due to concerns of hyponatremia and his sodium level seems to always improved with just fluid restriction while he is in the ER in general. He is well-known to drink excessive amounts of free water secondary to thinking this helps alleviate his chronic hiccups. This is further complicated by fact that he uses thorazine at times an effort to try to control his hiccups which is well known to precipitate low sodium levels as well. As noted on this admission, his sodium level was 116 millimoles per L but then quickly improved to 122 millimoles per L in just 4 hours. given this trend as well as his known history of over-correction in the past, his fluid restriction has been discontinued. Currently, at the time my evaluation, he appears to be in no acute distress. Review of Systems 2 Review of Systems: As per HPI. [facility] Past Medical History Medical History Hearing loss Impacted cerumen, left ear Asthma-COPD overlap syndrome Wears hearing aid in both ears Adenomatous colon polyp Hiatal hernia Other osteonecrosis, left femur Other osteonecrosis, right femur Psychogenic polydipsia Erosive esophagitis Anemia of chronic disease Chronic hiccups Hyponatremia Tobacco abuse Normocytic anemia Glaucoma Legally blind. Hyperlipidemia Hypertension Surgical History Surgical History History of enucleation of eye Right, secondary to recurrent infection. Family History Family History Grandparent Acute myocardial infarction Mother Acute myocardial infarction Skin cancer Father Acute myocardial infarction Sibling Cancer Social History Social History Social History: Surrogate decision maker: Svitlana Hines, . Code status: Full code. Smoking packs per day: 1.5 Smoking cigarettes per day: 30.0 Years smoked: 50 Smoking pack-years: 75.00 Smoking status: Former smoker Tobacco type: cigarettes Second hand tobacco smoke exposure: No Smoking end date: 05/21/20 Alcohol intake: former Substance use: never Substance use type: does not use Do You Feel Safe in your Home?: Yes Lack of Transportation: No Lack of Food: Never True Current Housing: I Have Housing Concerned About Future Housing: No Difficulty Paying Gas/Electric Bills: No Difficulty Paying for Meds: No Currently Unemployed: No Education: High School Diploma/GED Difficulty w/ Childcare or Family Care: No Living arrangements: with family Additional living arrangements comments: The patient lives with his of 43 years in [place]. He and his had 4 children 1 of which at . His remaining children are healthy. 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 Spiritual care concerns: No Meds Home Medications and Allergies Home Medications ?Medication ?Instructions ?Recorded ?Confirmed ?Type losartan 50 mg tablet 50 mg PO DAILY 03/02/2107/22 History montelukast 10 mg tablet 10 mg PO HS 03/02/21 5 History pravastatin 80 mg tablet 80 mg PO DAILY 03/02/2107/22 History cholecalciferol (vitamin D3) 25 25 mcg PO DAILY 08/10/25 History mcg (1,000 unit) capsule (Vitamin D3) cyanocobalamin (vitamin B-12) 100 2,000 mcg PO DAILY 0 03/29/21 08/10/25 History mcg tablet albuterol sulfate 90 mcg/actuation 1 inh inhalation QI D PRN shortness 05/02/21 08/10/25 Rx aerosol inhaler of breath or wheezing #8.5 g jason dorzolamide 22.3 mg-timolol 6.8 1 drp LEFT EYE TID 07/1308/10/25 History mg/mL eye drops budesonide-formoterol HFA 80 2 puff inhalation Q12H 08/10/25 History mcg-4.5 mcg/actuation aerosol inhaler gabapentin 300 mg capsule 300 mg PO DAILY 12/26/24 History chlorpromazine 25 mg tablet 25 mg PO Q6H PRN Hiccups # 30 tabs 01/11/25 08/10/25 Rx aspirin 81 mg tablet,delayed 81 mg PO DAILY 03/25/25 1 10/10/24 History release (Adult Aspirin Regimen) baclofen 5 mg tablet 5 mg PO BID 04/24/25 5 History famotidine 20 mg tablet 20 mg PO Q12HR #60 tabs 05/2208/10/25 Rx chlorpromazine 25 mg tablet 25 mg PO Q6H PRN Hiccups # 60 tabs 07/27/25 08/10/25 Rx Allergies Allergy/AdvReac Type Severity Reaction Status Date / Time No Known Allergies Allergy Verified 08/10/25 08:49 Vital Signs Vital Signs Temp Pulse Resp BP Pulse Ox O2 Del Method 08/10/25 09:37 98 Room Air 08/10/25 08:48 98.4 F 83 18 129/60 99 08/10/25 07:46 86 25 H 124/66 96 08/10/25 07:31 87 26 H 122/66 98 08/10/25 07:02 84 21 H 98 08/10/25 07:01 84 25 H 152/67 H 98 08/10/25 06:46 79 22 H 152/66 H 98 08/10/25 06:31 80 25 H 159/72 H 98 08/10/25 06:28 81 22 H 156/72 H 98 08/10/25 06:04 98.4 F 80 20 163/77 H 98 Room Air Exam 2 Narrative: GENERAL APPEARANCE: well developed well nourished male in no acute distress HEENT: normocephalic, atraumatic, noted right eye enucleation with cloudy left cornea; nares patient NECK: no lymphadenopathy, thyromegaly, or JVD MOUTH: normal lips, teeth, and gums CARDIOVASCULAR: RRR, normal S1 and S2, no rub RESPIRATORY: coarse breath sounds ABDOMEN: soft, nontender, nondistended, positive bowel sounds present EXTREMITIES: no evidence of cyanosis, clubbing, or edema NEUROLOGICAL: alert and oriented x 3; CN II - XII intact bilaterally; no focal deficits noted Results Lab Results 08/10/25 06:24 08/10/25 09:57 Lab results: Most recent lab results Calcium 9.3 mg/dL (8.4-10.2) 08/10/25 09:57
[2025-08-10 10:29] LABS: Anion Gap 9 mmol/L (4-12); Blood Urea Nitrogen 8 mg/dL (9-20); Calcium 9.3 mg/dL (8.4-10.2); Carbon Dioxide 23 mmol/L (22-30); Chloride 90 mmol/L (98-107); Estimated CRCL calculation 85 ml/min; Estimated Glomerular Filt Rate > 60; Glucose 107 mg/dL (65-110); Potassium 4.4 mmol/L (3.4-5.0); Sodium 122 mmol/L (137-145)
[2025-08-10 10:55] LABS: Thyroid Stimulating Hormone Reflex 0.584 uIU/mL (0.465-4.68)
[2025-08-10] MEDS: GABAPENTIN 300 MG CAPSULE PO (14:17)
[2025-08-10] MEDS: LOSARTAN POTASSIUM 50 MG TABLET PO (14:17)
[2025-08-10] MEDS: PRAVASTATIN SODIUM 20 MG TABLET 80 MG PO (14:17)
[2025-08-10 17:31] LABS: Sodium 127 mmol/L (137-145)
[2025-08-10] MEDS: BACLOFEN 5 MG TABLET PO (17:46)
[2025-08-10] MEDS: DORZOLAMIDE/TIMOLOL OPHTH SOL 10 ML BOTTLE 1 DROP LEFT EYE (17:46)
[2025-08-10] MEDS: DESMOPRESSIN ACETATE 4 MCG/ML AMP 2 MCG SUB-Q (18:48)
[2025-08-10] MEDS: DEXTROSE 5% IN WATER 500 ML 250 ML IV CONT ×2 (18:48→23:05)
[2025-08-10] MEDS: FLUTICASONE/SALMETEROL 45-21 MCG INHALER 1 PUFF 2 PUFF INHALATION (20:39)
[2025-08-10] MEDS: FAMOTIDINE 20 MG TABLET PO (20:45)
[2025-08-10] MEDS: MONTELUKAST SODIUM 10 MG TABLET PO (20:45)
[2025-08-10 22:06] LABS: Sodium 128 mmol/L (137-145)
[2025-08-10] MEDS: DESMOPRESSIN ACETATE 4 MCG/ML AMP 1 MCG SUB-Q (23:00)
[2025-08-11] VITALS (10 sets, daily range): BP systolic 114–122; BP diastolic 49–63; PULSE 73–93; RESP 18; TEMP 36.3–37.4; O2SAT 97–99
[2025-08-11 02:47] LABS: Sodium 126 mmol/L (137-145)
--- NOTE | 2025-08-11 03:19 | PC.NURSE ---
Dr. Lopez notified per physical to nurse note, 1 hour after Dextrose IV complete, order Sodium STAT lab draw to be done. Result of 128 reported. Orders given for medication administration. Patient stable at this time, asymptomatic. Bed in lowest position, call light, personal belongings with reach, fall precaution alarm set.
[2025-08-11] MEDS: DEXTROSE 5% IN WATER 500 ML 250 ML IV CONT (04:25)
--- NOTE | 2025-08-11 04:34 | PC.NURSE ---
Dr. Lopez, notified patient Sodium STAT redraw post 1 hour lab value 126. Order given to start another bag D5W 250ml/hr 500ml to be administered over 2 hour period. One hr after D5W complete, order Sodium STAT lab draw will be entered. Per physician to nurse order to call Dr. Lopez with sodium result. Patient asymptomatic, bed i lowest position, call light/personal belongings within reach, and fall precaution bed alarm set.
[2025-08-11 06:53] LABS: Sodium 123 mmol/L (137-145)
[2025-08-11] MEDS: FLUTICASONE/SALMETEROL 45-21 MCG INHALER 1 PUFF 2 PUFF INHALATION ×2 (07:01→20:35)
[2025-08-11] MEDS: LOSARTAN POTASSIUM 50 MG TABLET PO (08:24)
[2025-08-11] MEDS: PRAVASTATIN SODIUM 20 MG TABLET 80 MG PO (08:24)
[2025-08-11] MEDS: BACLOFEN 5 MG TABLET PO ×2 (08:24→18:11)
[2025-08-11] MEDS: FAMOTIDINE 20 MG TABLET PO ×2 (08:24→20:05)
[2025-08-11] MEDS: GABAPENTIN 300 MG CAPSULE PO (08:24)
[2025-08-11] MEDS: ASPIRIN 81 MG ENTERIC TABLET PO (08:24)
[2025-08-11] MEDS: ENOXAPARIN 40 MG/0.4 ML SYRINGE SUB-Q (08:25)
[2025-08-11] MEDS: DORZOLAMIDE/TIMOLOL OPHTH SOL 10 ML BOTTLE 1 DROP LEFT EYE ×3 (08:25→18:11)
[2025-08-11 11:02] LABS: Anion Gap 7 mmol/L (4-12); Blood Urea Nitrogen 11 mg/dL (9-20); Calcium 9.0 mg/dL (8.4-10.2); Carbon Dioxide 24 mmol/L (22-30); Chloride 90 mmol/L (98-107); Estimated CRCL calculation 84 ml/min; Estimated Glomerular Filt Rate > 60; Glucose 91 mg/dL (65-110); Potassium 4.4 mmol/L (3.4-5.0); Sodium 121 mmol/L (137-145)
--- NOTE | 2025-08-11 15:08 | PM.IMPN ---
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 Due to over-correction received DDAVP and D5 water 08/10/2025 -Urine Na and urine osmolarity pending -nephrology following (2) Chronic hiccups: Code(s): R06.6 - Hiccough Status: Acute Assessment and Plan: Given Thorazine in ED Continue chlorpromazine 25 mg p.o. q.6 hours p.r.n. for hiccups Also on baclofen (3) Hypertension: Qualifiers: Hypertension type: primary hypertension Qualified Code(s): I10 - Essential (primary) hypertension Code(s): I10 - Essential (primary) hypertension Status: Chronic Assessment and Plan: Continue losartan Plan chronic normocytic anemia Legally blind Glaucoma COPD Multiple cysts in liver Code status full code DVT prophylaxis Lovenox Subjective Date/time seen: 08/11/25 15:08 Interval history: Feels better. Has chronic hiccoughs No new complaints. Sodium level reviewed. Review of Systems Review of Systems: All systems reviewed & are unremarkable except as noted in HPI and below Exam Narrative: GENERAL: non-toxic appearing, in no acute distress. Hiccup frequently during exam HEAD: Normocephalic, atraumatic. 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 CTA. CARDIOVASCULAR: Regular rate and rhythm GASTROINTESTINAL: Abdomen is soft and nontender. No organomegaly. Bowel sounds normal in all quadrants. GENITOURINARY: Defer MUSCULOSKELETAL: Moves all extremities. No gross deformities. SKIN: Warm, dry, normal color. NEURO: A&O X4. Speech clear. No ataxia or focal neurological deficits. No facial asymmetry. PSYCHIATRIC: Normal interaction Objective Data Vital Signs Vital Signs: Vital Signs - 24 hr 08/10/25 18:03 08/10/25 20:02 08/10/25 20:24 Temperature Pulse Rate 96 88 Respiratory Rate Blood Pressure Pulse Oximetry 100 Oxygen Delivery Room Air 08/10/25 20:43 08/10/25 22:00 08/11/25 00:06 Temperature 97.3 F L Pulse Rate 87 81 Respiratory Rate 20 Blood Pressure 100/61 Pulse Oximetry 97 97 Oxygen Delivery Room Air 08/11/25 04:01 08/11/25 04:52 08/11/25 08:00 Temperature 97.5 F L Pulse Rate 80 93 Respiratory Rate 18 Blood Pressure 114/54 L Pulse Oximetry 99 Oxygen Delivery Room Air 08/11/25 08:00 08/11/25 12:00 Temperature Pulse Rate 88 76 Respiratory Rate Blood Pressure Pulse Oximetry Oxygen Delivery Intake/Output Intake/Output: Intake & Output 08/08/25 08/09/25 08/10/25 08/11/25 23:59 23:59 23:59 23:59 Intake Total 360 580 Output Total 4025 Balance -3665 580 Meds/Results Medications: Active Medications Generic Name Dose Route Start Last Admin Trade Name Freq PRN Reason Stop Dose Admin Acetaminophen 650 mg 08/10/25 07:13 Acetaminophen 325 Mg Tablet PO Q4H PRN Mild Pain (1-3) or Fever Albuterol 1 puff 08/10/25 13:11 Albuterol Sulfate (*Sp) Aerosol 1 Puff INHALATION QID PRN Shortness Of Breath Or Wheezing Aspirin 81 mg 08/11/25 09:00 08/11/25 08:24 Aspirin 81 Mg Enteric Tablet PO 81 mg DAILY PASHA Administration Baclofen 5 mg 08/10/25 17:00 08/11/25 08:24 Baclofen 5 Mg Tablet PO 5 mg BID PASHA Administration Chlorpromazine HCl 25 mg 08/10/25 13:11 08/11/25 01:31 Chlorpromazine Hcl 25 Mg Tablet PO 25 mg Q6H PRN Administration Hiccups Dorzolamide/Timolol 1 drop 08/10/25 17:00 08/11/25 13:09 Dorzolamide/Timolol Ophth Shannon 10 Ml Bottle LEFT EYE 1 drop TID PASHA Administration Enoxaparin Sodium 40 mg 08/11/25 09:00 08/11/25 08:25 Enoxaparin 40 Mg/0.4 Ml Syringe SUB-Q 40 mg DAILY PASHA Administration Famotidine 20 mg 08/10/25 21:00 08/11/25 08:24 Famotidine 20 Mg Tablet PO 20 mg Q12HR PASHA Administration Gabapentin 300 mg 08/10/25 13:20 08/11/25 08:24 Gabapentin 300 Mg Capsule PO 300 mg DAILY PASHA Administration Losartan Potassium 50 mg 08/10/25 13:20 08/11/25 08:24 Losartan Potassium 50 Mg Tablet PO 50 mg DAILY PASHA Administration Montelukast Sodium 10 mg 08/10/25 21:00 08/10/25 20:45 Montelukast Sodium 10 Mg Tablet PO 10 mg HS PASHA Administration Ondansetron HCl 4 mg 08/10/25 07:13 Ondansetron Inj 4 Mg/2 Ml Vial IV PUSH Q4H PRN Nausea Pravastatin Sodium 80 mg 08/10/25 13:20 08/11/25 08:24 Pravastatin Sodium 20 Mg Tablet PO 80 mg DAILY PASHA Administration Fluticasone/Salmeterol 2 puff 08/10/25 20:00 08/11/25 07:01 Fluticasone/Salmeterol 45-21 Mcg Inhaler 1 Puff INHALATION 2 puff Q12HRT PASHA Administration Radiology Results: ITS Impressions Chest X-Ray 08/10/25 06:55 IMPRESSION: 1. No acute cardiopulmonary findings given portable technique. Labs Labs: Laboratory Results - last 24 hr 08/10/25 08/10/25 08/11/25 17:15 21:35 01:56 Sodium 127 L 128 L 126 L Potassium Chloride Carbon Dioxide Anion Gap BUN Creatinine Estim Creat Clear Calc Estimated GFR Glucose Calcium 08/11/25 08/11/25 06:37 10:41 Sodium 123 L 121 L Potassium 4.4 Chloride 90 L Carbon Dioxide 24 Anion Gap 7 BUN 11 Creatinine 0.73 Estim Creat Clear Calc 84 Estimated GFR > 60 Glucose 91 Calcium 9.0
[2025-08-11] MEDS: MONTELUKAST SODIUM 10 MG TABLET PO (20:05)
--- NOTE | 2025-08-11 22:52 | P.PNNP_ITS ---
Progress Note: A&P Assessment and Plan (1) Hyponatremia: Code(s): E87.1 - Hypo-osmolality and hyponatremia Status: Acute Assessment and Plan: Patient has low sodium. This is due to excessive free water intake. His sodium level corrected too quickly and so DDAVP given x2 and now sodium is back down to 123 which is where it should be. Will follow the patient Sodium along and watch as it improves. Because the DDAVP is still probably active at this point, the sodium might correct fairly slowly. (2) Anemia: Code(s): D64.9 - Anemia, unspecified Status: Acute Assessment and Plan: * low H/H noted * The patient has been anemic for a long time. * Check another CBC tomorrow (3) Hypertension: Qualifiers: Hypertension type: primary hypertension Qualified Code(s): I10 - Essential (primary) hypertension Code(s): I10 - Essential (primary) hypertension Status: Chronic Assessment and Plan: * Systolic 120s to 150s * follow trend of hemodynamics (4) Chronic hiccups: Code(s): R06.6 - Hiccough Status: Chronic Assessment and Plan: * chronic issue * Sodium issues might be responsible at least in part Subjective Date/time seen: 08/13/25 10:52 Interval history: Late entry. Patient feels okay. Sodium level over corrected yesterday but Dr. Lopez gave him DDAVP and the sodium level is back down to 123 today. Exam Narrative: WDWN in NAD skin no rash head ncat lungs clear cor reg no rub abd BS+ nontender and soft ext no edema. Objective Data Vital Signs Vital Signs: Vital Signs - 24 hr 08/12/25 12:00 08/12/25 13:57 08/12/25 16:00 Temperature 98.8 F Pulse Rate 74 68 67 Respiratory Rate 16 Blood Pressure 129/58 L Pulse Oximetry 99 Oxygen Delivery 08/12/25 20:00 08/12/25 20:00 08/12/25 20:34 Temperature 98.4 F Pulse Rate 90 71 72 Respiratory Rate 18 18 Blood Pressure 98/52 L Pulse Oximetry 99 99 Oxygen Delivery Room Air 08/12/25 21:01 08/13/25 00:00 08/13/25 04:00 Temperature Pulse Rate 90 66 73 Respiratory Rate 18 Blood Pressure Pulse Oximetry Oxygen Delivery 08/13/25 05:16 08/13/25 08:14 08/13/25 08:15 Temperature 97.4 F L Pulse Rate 80 78 78 Respiratory Rate 18 20 20 Blood Pressure 127/56 L Pulse Oximetry 97 96 Oxygen Delivery Room Air Intake/Output Intake/Output: Intake & Output 08/10/25 08/11/25 08/12/25 08/13/25 23:59 23:59 23:59 23:59 Intake Total 360 1370 1110 380 Output Total 4025 1150 Balance -3665 1370 -40 380 Meds/Results Medications: Active Medications Generic Name Dose Route Start Last Admin Trade Name Freq PRN Reason Stop Dose Admin Acetaminophen 650 mg 08/10/25 07:13 Acetaminophen 325 Mg Tablet PO Q4H PRN Mild Pain (1-3) or Fever Albuterol 1 puff 08/10/25 13:11 Albuterol Sulfate (*Sp) Aerosol 1 Puff INHALATION QID PRN Shortness Of Breath Or Wheezing Aspirin 81 mg 08/11/25 09:00 08/13/25 08:33 Aspirin 81 Mg Enteric Tablet PO 81 mg DAILY PASHA Administration Baclofen 5 mg 08/10/25 17:00 08/13/25 08:33 Baclofen 5 Mg Tablet PO 5 mg BID PASHA Administration Chlorpromazine HCl 25 mg 08/10/25 13:11 08/13/25 08:37 Chlorpromazine Hcl 25 Mg Tablet PO 25 mg Q6H PRN Administration Hiccups Dorzolamide/Timolol 1 drop 08/10/25 17:00 08/13/25 08:40 Dorzolamide/Timolol Ophth Shannon 10 Ml Bottle LEFT EYE 1 drop TID PASHA Administration Enoxaparin Sodium 40 mg 08/11/25 09:00 08/13/25 08:37 Enoxaparin 40 Mg/0.4 Ml Syringe SUB-Q 40 mg DAILY PASHA Administration Famotidine 20 mg 08/10/25 21:00 08/13/25 08:33 Famotidine 20 Mg Tablet PO 20 mg Q12HR PASHA Administration Gabapentin 300 mg 08/10/25 13:20 08/13/25 08:33 Gabapentin 300 Mg Capsule PO 300 mg DAILY PASHA Administration Losartan Potassium 50 mg 08/10/25 13:20 08/13/25 08:33 Losartan Potassium 50 Mg Tablet PO 50 mg DAILY PASHA Administration Montelukast Sodium 10 mg 08/10/25 21:00 08/12/25 21:31 Montelukast Sodium 10 Mg Tablet PO 10 mg HS PASHA Administration Ondansetron HCl 4 mg 08/10/25 07:13 Ondansetron Inj 4 Mg/2 Ml Vial IV PUSH Q4H PRN Nausea Pravastatin Sodium 80 mg 08/10/25 13:20 08/13/25 08:32 Pravastatin Sodium 20 Mg Tablet PO 80 mg DAILY PASHA Administration Fluticasone/Salmeterol 2 puff 08/10/25 20:00 08/13/25 08:14 Fluticasone/Salmeterol 45-21 Mcg Inhaler 1 Puff INHALATION 2 puff Q12HRT PASHA Administration Radiology Results: ITS Impressions Chest X-Ray 08/10/25 06:55 IMPRESSION: 1. No acute cardiopulmonary findings given portable technique. Labs Labs: Laboratory Results - last 24 hr 08/12/25 08/13/25 15:31 05:48 WBC 9.0 RBC 3.37 L Hgb 9.8 L Hct 29.7 L MCV 88.1 MCH 29.1 MCHC 33.0 RDW 14.6 H Plt Count 232 MPV 10.8 H Immature Gran % (Auto) 0.3 Neut % (Auto) 82.1 H Lymph % (Auto) 10.0 L [place] % (Auto) 6.6 Eos % (Auto) 0.8 Baso % (Auto) 0.2 Lymph # (Auto) 0.90 [place] # (Auto) 0.6 Eos # (Auto) 0.1 Baso # (Auto) 0.0 Abs Immat Gran (auto) 0.03 Absolute Neuts (auto) 7.4 H Absolute Nucleated RBC 0.000 Nucleated RBC % 0.0 Sodium 125 L 128 L Potassium 4.5 3.9 Chloride 94 L 97 L Carbon Dioxide 24 23 Anion Gap 7 8 BUN 14 D 17 Creatinine 0.92 1.11 Estim Creat Clear Calc 68 57 Estimated GFR > 60 > 60 Glucose 111 H 102 Calcium 9.5 9.4 Magnesium 2.3 Total Bilirubin 0.4 AST 15 L ALT 10 Alkaline Phosphatase 55 Total Protein 6.6 Albumin 3.7
[2025-08-12] VITALS (9 sets, daily range): BP systolic 98–129; BP diastolic 52–58; PULSE 67–90; RESP 16–18; TEMP 36.6–37.1; O2SAT 97–99
--- NOTE | 2025-08-12 05:53 | PC.NURSE ---
Resident Aox4, alert and oriented refused to place on tele leads despite of encouraging him about the importance of it.Will continue to monitor him and endorse it to the upcoming shift accordingly.
[2025-08-12] MEDS: FLUTICASONE/SALMETEROL 45-21 MCG INHALER 1 PUFF 2 PUFF INHALATION ×2 (07:14→20:58)
[2025-08-12 08:24] LABS: Hematocrit 33.8 % (42.0-52.0); Hemoglobin 10.9 g/dL (14.0-18.0); Immature Granulocyte Percent A 0.4 % (0-0.5); Lymphocytes Absolute Auto 1.21 K/mm3 (0.9-3.2); Mean Corpuscular HGB Conc 32.2 g/dl (32-36); Mean Corpuscular Hemoglobin 28.9 pg (26-34); Mean Corpuscular Volume 89.7 fl (80-100); Nucleated Red Blood Cells Absolute Auto 0.000 K/mm3 (0.0-0.012); Nucleated Red Blood Cells Perc 0.0 % (0.0-0.2); Platelet Count Result 261 k/mm3 (150-375); Red Blood Count 3.77 M/mm3 (4.6-6.20); White Blood Count 10.3 K/mm3 (4.5-10.0)
[2025-08-12 08:41] LABS: Alanine Aminotransferase 11 U/L (6-50); Albumin Level 4.2 g/dL (3.5-5.1); Alkaline Phosphatase 60 U/L (38-126); Anion Gap 11 mmol/L (4-12); Aspartate Amino Transferase 15 U/L (17-59); Bilirubin,Total 0.5 mg/dL (0.2-1.3); Blood Urea Nitrogen 7 mg/dL (9-20); Calcium 9.4 mg/dL (8.4-10.2); Carbon Dioxide 21 mmol/L (22-30); Chloride 94 mmol/L (98-107); Estimated CRCL calculation 74 ml/min; Estimated Glomerular Filt Rate > 60; Glucose 111 mg/dL (65-110); Magnesium 2.3 mg/dL (1.6-2.3); Potassium 4.4 mmol/L (3.4-5.0); Sodium 126 mmol/L (137-145); Total Protein 7.3 g/dL (6.3-8.2)
[2025-08-12] MEDS: ASPIRIN 81 MG ENTERIC TABLET PO (08:52)
[2025-08-12] MEDS: PRAVASTATIN SODIUM 20 MG TABLET 80 MG PO (08:52)
[2025-08-12] MEDS: FAMOTIDINE 20 MG TABLET PO ×2 (08:52→21:31)
[2025-08-12] MEDS: LOSARTAN POTASSIUM 50 MG TABLET PO (08:52)
[2025-08-12] MEDS: GABAPENTIN 300 MG CAPSULE PO (08:52)
[2025-08-12] MEDS: BACLOFEN 5 MG TABLET PO ×2 (08:52→16:31)
[2025-08-12] MEDS: DORZOLAMIDE/TIMOLOL OPHTH SOL 10 ML BOTTLE 1 DROP LEFT EYE ×3 (08:53→16:31)
--- NOTE | 2025-08-12 11:24 | P.PNIM_ITS ---
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 Due to over-correction received DDAVP and D5 water 08/10/2025 slowly improving now -Urine Na and urine osmolarity pending -nephrology following (2) Chronic hiccups: Code(s): R06.6 - Hiccough Status: Acute Assessment and Plan: Given Thorazine in ED Continue chlorpromazine 25 mg p.o. q.6 hours p.r.n. for hiccups Also on baclofen (3) Hypertension: Qualifiers: Hypertension type: primary hypertension Qualified Code(s): I10 - Essential (primary) hypertension Code(s): I10 - Essential (primary) hypertension Status: Chronic Assessment and Plan: Continue losartan Plan chronic normocytic anemia Legally blind Glaucoma COPD Multiple cysts in liver Code status full code DVT prophylaxis Lovenox Subjective Date/time seen: 08/12/25 11:24 Interval history: He refuses labs yesterday and this morning. Sodium level this afternoon was 126. Complaints. Feeling better. Discussed fluid restriction with the patient. hiccoughs better. Review of Systems Review of Systems: All systems reviewed & are unremarkable except as noted in HPI and below Exam Narrative: GENERAL: non-toxic appearing, in no acute distress. HEAD: Normocephalic, atraumatic. 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 CTA. CARDIOVASCULAR: Regular rate and rhythm GASTROINTESTINAL: Abdomen is soft and nontender. No organomegaly. Bowel sounds normal in all quadrants. GENITOURINARY: Defer MUSCULOSKELETAL: Moves all extremities. No gross deformities. SKIN: Warm, dry, normal color. NEURO: A&O X4. Speech clear. No ataxia or focal neurological deficits. No facial asymmetry. PSYCHIATRIC: Normal interaction Objective Data Vital Signs Vital Signs: Vital Signs - 24 hr 08/11/25 12:00 08/11/25 14:48 08/11/25 16:00 Temperature 99.4 F Pulse Rate 76 83 85 Respiratory Rate 18 Blood Pressure 119/63 Pulse Oximetry 98 Oxygen Delivery 08/11/25 20:00 08/11/25 20:05 08/11/25 20:40 Temperature Pulse Rate 83 84 Respiratory Rate Blood Pressure Pulse Oximetry 97 Oxygen Delivery Room Air Room Air 08/11/25 20:56 08/12/25 00:00 08/12/25 04:00 Temperature 97.4 F L Pulse Rate 73 85 85 Respiratory Rate 18 Blood Pressure 122/49 L Pulse Oximetry 99 Oxygen Delivery 08/12/25 04:08 08/12/25 08:50 Temperature 97.8 F Pulse Rate 72 Respiratory Rate 18 Blood Pressure 119/53 L Pulse Oximetry 97 Oxygen Delivery Room Air Intake/Output Intake/Output: Intake & Output 08/09/25 08/10/25 08/11/25 08/12/25 23:59 23:59 23:59 23:59 Intake Total 360 1370 240 Output Total 4025 550 Balance -3665 1370 -310 Meds/Results Medications: Active Medications Generic Name Dose Route Start Last Admin Trade Name Freq PRN Reason Stop Dose Admin Acetaminophen 650 mg 08/10/25 07:13 Acetaminophen 325 Mg Tablet PO Q4H PRN Mild Pain (1-3) or Fever Albuterol 1 puff 08/10/25 13:11 Albuterol Sulfate (*Sp) Aerosol 1 Puff INHALATION QID PRN Shortness Of Breath Or Wheezing Aspirin 81 mg 08/11/25 09:00 08/12/25 08:52 Aspirin 81 Mg Enteric Tablet PO 81 mg DAILY PASHA Administration Baclofen 5 mg 08/10/25 17:00 08/12/25 08:52 Baclofen 5 Mg Tablet PO 5 mg BID PASHA Administration Chlorpromazine HCl 25 mg 08/10/25 13:11 08/11/25 23:35 Chlorpromazine Hcl 25 Mg Tablet PO 25 mg Q6H PRN Administration Hiccups Dorzolamide/Timolol 1 drop 08/10/25 17:00 08/12/25 08:53 Dorzolamide/Timolol Ophth Shannon 10 Ml Bottle LEFT EYE 1 drop TID PASHA Administration Enoxaparin Sodium 40 mg 08/11/25 09:00 08/12/25 08:52 Enoxaparin 40 Mg/0.4 Ml Syringe SUB-Q Not Given DAILY [facility] Famotidine 20 mg 08/10/25 21:00 08/12/25 08:52 Famotidine 20 Mg Tablet PO 20 mg Q12HR PASHA Administration Gabapentin 300 mg 08/10/25 13:20 08/12/25 08:52 Gabapentin 300 Mg Capsule PO 300 mg DAILY PASHA Administration Losartan Potassium 50 mg 08/10/25 13:20 08/12/25 08:52 Losartan Potassium 50 Mg Tablet PO 50 mg DAILY PASHA Administration Montelukast Sodium 10 mg 08/10/25 21:00 08/11/25 20:05 Montelukast Sodium 10 Mg Tablet PO 10 mg HS PASHA Administration Ondansetron HCl 4 mg 08/10/25 07:13 Ondansetron Inj 4 Mg/2 Ml Vial IV PUSH Q4H PRN Nausea Pravastatin Sodium 80 mg 08/10/25 13:20 08/12/25 08:52 Pravastatin Sodium 20 Mg Tablet PO 80 mg DAILY PASHA Administration Fluticasone/Salmeterol 2 puff 08/10/25 20:00 08/12/25 07:14 Fluticasone/Salmeterol 45-21 Mcg Inhaler 1 Puff INHALATION 2 puff Q12HRT PASHA Administration Radiology Results: ITS Impressions Chest X-Ray 08/10/25 06:55 IMPRESSION: 1. No acute cardiopulmonary findings given portable technique. Labs Labs: Laboratory Results - last 24 hr 08/12/25 08:19 WBC 10.3 H RBC 3.77 L Hgb 10.9 L Hct 33.8 L MCV 89.7 D MCH 28.9 MCHC 32.2 RDW 14.5 Plt Count 261 MPV 10.7 H Immature Gran % (Auto) 0.4 Neut % (Auto) 81.9 H Lymph % (Auto) 11.8 L [place] % (Auto) 4.7 Eos % (Auto) 0.9 Baso % (Auto) 0.3 Lymph # (Auto) 1.21 [place] # (Auto) 0.5 Eos # (Auto) 0.1 Baso # (Auto) 0.0 Abs Immat Gran (auto) 0.04 H Absolute Neuts (auto) 8.4 H Absolute Nucleated RBC 0.000 Nucleated RBC % 0.0 Sodium 126 L Potassium 4.4 Chloride 94 L Carbon Dioxide 21 L Anion Gap 11 BUN 7 L Creatinine 0.84 Estim Creat Clear Calc 74 Estimated GFR > 60 Glucose 111 H Calcium 9.4 Magnesium 2.3 Total Bilirubin 0.5 AST 15 L ALT 11 Alkaline Phosphatase 60 Total Protein 7.3 Albumin 4.2
--- NOTE | 2025-08-12 11:39 | P.PNNP_ITS ---
Progress Note: A&P Assessment and Plan (1) Hyponatremia: Code(s): E87.1 - Hypo-osmolality and hyponatremia Status: Acute Assessment and Plan: * acute on chronic * baseline sodium runs around 121 - 131mmol/L * noted history that dates back ~ 4 -5 years ago * sodium levels on previous ER visits noted * acute drop in sodium usually due to increased free water intake * chronic hyponatremia due to: * significant free water intake in general * intermittent thorazine use * underlying lung disease(?) * extensive work-up/evaluation noted on previous hosptializations noted: * normal TSH and cortisol * brain imaging negative * CXR negative * SPEP okay * no SSRIs, narcotics, or diuretic thera * pt did overcorrect and so given ddavp x 2 yesterday. sodium did come down to 123 yesterday morning. * today na 126. * will continue fluid restriction as the ddavp is probably still active. Subjective Date/time seen: 08/12/25 11:39 Interval history: pt feels okay no cp or sob Review of Systems Cardiovascular: Cardiovascular: Reports no additional cardiovascular complaints Respiratory: Respiratory: Reports no additional respiratory complaints Gastrointestinal: Gastrointestinal: Reports no additional gastrointestinal complaints Genitourinary: Genitourinary: Reports no additional male genitourinary complaints Exam Narrative: WDWN in NAD skin no rash head ncat lungs clear cor reg no rub abd BS+ nontender and soft ext no edema. Objective Data Vital Signs Vital Signs: Vital Signs - 24 hr 08/11/25 12:00 08/11/25 14:48 08/11/25 16:00 Temperature 99.4 F Pulse Rate 76 83 85 Respiratory Rate 18 Blood Pressure 119/63 Pulse Oximetry 98 Oxygen Delivery 08/11/25 20:00 08/11/25 20:05 08/11/25 20:40 Temperature Pulse Rate 83 84 Respiratory Rate Blood Pressure Pulse Oximetry 97 Oxygen Delivery Room Air Room Air 08/11/25 20:56 08/12/25 00:00 08/12/25 04:00 Temperature 97.4 F L Pulse Rate 73 85 85 Respiratory Rate 18 Blood Pressure 122/49 L Pulse Oximetry 99 Oxygen Delivery 08/12/25 04:08 08/12/25 08:50 Temperature 97.8 F Pulse Rate 72 Respiratory Rate 18 Blood Pressure 119/53 L Pulse Oximetry 97 Oxygen Delivery Room Air Intake/Output Intake/Output: Intake & Output 08/09/25 08/10/25 08/11/25 08/12/25 23:59 23:59 23:59 23:59 Intake Total 360 1370 240 Output Total 4025 550 Balance -3665 1370 -310 Meds/Results Medications: Active Medications Generic Name Dose Route Start Last Admin Trade Name Freq PRN Reason Stop Dose Admin Acetaminophen 650 mg 08/10/25 07:13 Acetaminophen 325 Mg Tablet PO Q4H PRN Mild Pain (1-3) or Fever Albuterol 1 puff 08/10/25 13:11 Albuterol Sulfate (*Sp) Aerosol 1 Puff INHALATION QID PRN Shortness Of Breath Or Wheezing Aspirin 81 mg 08/11/25 09:00 08/12/25 08:52 Aspirin 81 Mg Enteric Tablet PO 81 mg DAILY PASHA Administration Baclofen 5 mg 08/10/25 17:00 08/12/25 08:52 Baclofen 5 Mg Tablet PO 5 mg BID PASHA Administration Chlorpromazine HCl 25 mg 08/10/25 13:11 08/11/25 23:35 Chlorpromazine Hcl 25 Mg Tablet PO 25 mg Q6H PRN Administration Hiccups Dorzolamide/Timolol 1 drop 08/10/25 17:00 08/12/25 08:53 Dorzolamide/Timolol Ophth Shannon 10 Ml Bottle LEFT EYE 1 drop TID PASHA Administration Enoxaparin Sodium 40 mg 08/11/25 09:00 08/12/25 08:52 Enoxaparin 40 Mg/0.4 Ml Syringe SUB-Q Not Given DAILY PASHA Famotidine 20 mg 08/10/25 21:00 08/12/25 08:52 Famotidine 20 Mg Tablet PO 20 mg Q12HR PASHA Administration Gabapentin 300 mg 08/10/25 13:20 08/12/25 08:52 Gabapentin 300 Mg Capsule PO 300 mg DAILY PASHA Administration Losartan Potassium 50 mg 08/10/25 13:20 08/12/25 08:52 Losartan Potassium 50 Mg Tablet PO 50 mg DAILY PASHA Administration Montelukast Sodium 10 mg 08/10/25 21:00 08/11/25 20:05 Montelukast Sodium 10 Mg Tablet PO 10 mg HS PASAH Administration Ondansetron HCl 4 mg 08/10/25 07:13 Ondansetron Inj 4 Mg/2 Ml Vial IV PUSH Q4H PRN Nausea Pravastatin Sodium 80 mg 08/10/25 13:20 08/12/25 08:52 Pravastatin Sodium 20 Mg Tablet PO 80 mg DAILY PASHA Administration Fluticasone/Salmeterol 2 puff 08/10/25 20:00 08/12/25 07:14 Fluticasone/Salmeterol 45-21 Mcg Inhaler 1 Puff INHALATION 2 puff Q12HRT PASHA Administration Radiology Results: ITS Impressions Chest X-Ray 08/10/25 06:55 IMPRESSION: 1. No acute cardiopulmonary findings given portable technique. Labs Labs: Laboratory Results - last 24 hr 08/12/25 08:19 WBC 10.3 H RBC 3.77 L Hgb 10.9 L Hct 33.8 L MCV 89.7 D MCH 28.9 MCHC 32.2 RDW 14.5 Plt Count 261 MPV 10.7 H Immature Gran % (Auto) 0.4 Neut % (Auto) 81.9 H Lymph % (Auto) 11.8 L [place] % (Auto) 4.7 Eos % (Auto) 0.9 Baso % (Auto) 0.3 Lymph # (Auto) 1.21 [place] # (Auto) 0.5 Eos # (Auto) 0.1 Baso # (Auto) 0.0 Abs Immat Gran (auto) 0.04 H Absolute Neuts (auto) 8.4 H Absolute Nucleated RBC 0.000 Nucleated RBC % 0.0 Sodium 126 L Potassium 4.4 Chloride 94 L Carbon Dioxide 21 L Anion Gap 11 BUN 7 L Creatinine 0.84 Estim Creat Clear Calc 74 Estimated GFR > 60 Glucose 111 H Calcium 9.4 Magnesium 2.3 Total Bilirubin 0.5 AST 15 L ALT 11 Alkaline Phosphatase 60 Total Protein 7.3 Albumin 4.2
[2025-08-12 15:49] LABS: Anion Gap 7 mmol/L (4-12); Blood Urea Nitrogen 14 mg/dL (9-20); Calcium 9.5 mg/dL (8.4-10.2); Carbon Dioxide 24 mmol/L (22-30); Chloride 94 mmol/L (98-107); Estimated CRCL calculation 68 ml/min; Estimated Glomerular Filt Rate > 60; Glucose 111 mg/dL (65-110); Potassium 4.5 mmol/L (3.4-5.0); Sodium 125 mmol/L (137-145)
[2025-08-12] MEDS: MONTELUKAST SODIUM 10 MG TABLET PO (21:31)
[2025-08-13] VITALS (12 sets, daily range): BP systolic 102–127; BP diastolic 52–56; PULSE 66–88; RESP 16–20; TEMP 36.3; O2SAT 96–99
[2025-08-13 05:54] LABS: Hematocrit 29.7 % (42.0-52.0); Hemoglobin 9.8 g/dL (14.0-18.0); Immature Granulocyte Percent A 0.3 % (0-0.5); Lymphocytes Absolute Auto 0.90 K/mm3 (0.9-3.2); Mean Corpuscular HGB Conc 33.0 g/dl (32-36); Mean Corpuscular Hemoglobin 29.1 pg (26-34); Mean Corpuscular Volume 88.1 fl (80-100); Nucleated Red Blood Cells Absolute Auto 0.000 K/mm3 (0.0-0.012); Nucleated Red Blood Cells Perc 0.0 % (0.0-0.2); Platelet Count Result 232 k/mm3 (150-375); Red Blood Count 3.37 M/mm3 (4.6-6.20); White Blood Count 9.0 K/mm3 (4.5-10.0)
[2025-08-13 06:28] LABS: Alanine Aminotransferase 10 U/L (6-50); Albumin Level 3.7 g/dL (3.5-5.1); Alkaline Phosphatase 55 U/L (38-126); Anion Gap 8 mmol/L (4-12); Aspartate Amino Transferase 15 U/L (17-59); Bilirubin,Total 0.4 mg/dL (0.2-1.3); Blood Urea Nitrogen 17 mg/dL (9-20); Calcium 9.4 mg/dL (8.4-10.2); Carbon Dioxide 23 mmol/L (22-30); Chloride 97 mmol/L (98-107); Estimated CRCL calculation 57 ml/min; Estimated Glomerular Filt Rate > 60; Glucose 102 mg/dL (65-110); Magnesium 2.3 mg/dL (1.6-2.3); Potassium 3.9 mmol/L (3.4-5.0); Sodium 128 mmol/L (137-145); Total Protein 6.6 g/dL (6.3-8.2)
[2025-08-13] MEDS: FLUTICASONE/SALMETEROL 45-21 MCG INHALER 1 PUFF 2 PUFF INHALATION ×2 (08:14→20:10)
[2025-08-13] MEDS: PRAVASTATIN SODIUM 20 MG TABLET 80 MG PO (08:32)
[2025-08-13] MEDS: BACLOFEN 5 MG TABLET PO ×2 (08:33→16:52)
[2025-08-13] MEDS: LOSARTAN POTASSIUM 50 MG TABLET PO (08:33)
[2025-08-13] MEDS: FAMOTIDINE 20 MG TABLET PO ×2 (08:33→20:48)
[2025-08-13] MEDS: ASPIRIN 81 MG ENTERIC TABLET PO (08:33)
[2025-08-13] MEDS: GABAPENTIN 300 MG CAPSULE PO (08:33)
[2025-08-13] MEDS: ENOXAPARIN 40 MG/0.4 ML SYRINGE SUB-Q (08:37)
[2025-08-13] MEDS: DORZOLAMIDE/TIMOLOL OPHTH SOL 10 ML BOTTLE 1 DROP LEFT EYE ×3 (08:40→16:52)
--- NOTE | 2025-08-13 09:39 | P.PNNP_ITS ---
Progress Note: A&P Assessment and Plan (1) Hyponatremia: Code(s): E87.1 - Hypo-osmolality and hyponatremia Status: Acute Assessment and Plan: * acute on chronic * baseline sodium runs around 121 - 131mmol/L * noted history that dates back ~ 4 -5 years ago * sodium levels on previous ER visits noted * acute drop in sodium usually due to increased free water intake * chronic hyponatremia due to: * significant free water intake in general * intermittent thorazine use * underlying lung disease(?) * extensive work-up/evaluation noted on previous hosptializations noted: * normal TSH and cortisol * brain imaging negative * CXR negative * SPEP okay * no SSRIs, narcotics, or diuretic thera * pt did overcorrect and was given DDAVP or early on. Since then sodium level came back to where it should be and now is increasing gradually. * today na 128 * will continue fluid restriction for now. I think the ddavp is probably still active. * Long discussion with the patient that he should restrict fluid at home, just a bout 2L would probably be okay for him. Subjective Date/time seen: 08/13/25 09:39 Interval history: Patient feels okay today. He is eager for discharge His only complaint is 1 of singultus which is a chronic condition for him. Possibly related to the Sodium? Exam Narrative: WDWN in NAD skin no rash head ncat lungs clear bilaterally cor reg no rub abd BS+ nontender and soft ext no edema. Objective Data Vital Signs Vital Signs: Vital Signs - 24 hr 08/12/25 12:00 08/12/25 13:57 08/12/25 16:00 Temperature 98.8 F Pulse Rate 74 68 67 Respiratory Rate 16 Blood Pressure 129/58 L Pulse Oximetry 99 Oxygen Delivery 08/12/25 20:00 08/12/25 20:00 08/12/25 20:34 Temperature 98.4 F Pulse Rate 90 71 72 Respiratory Rate 18 18 Blood Pressure 98/52 L Pulse Oximetry 99 99 Oxygen Delivery Room Air 08/12/25 21:01 08/13/25 00:00 08/13/25 04:00 Temperature Pulse Rate 90 66 73 Respiratory Rate 18 Blood Pressure Pulse Oximetry Oxygen Delivery 08/13/25 05:16 08/13/25 08:14 08/13/25 08:15 Temperature 97.4 F L Pulse Rate 80 78 78 Respiratory Rate 18 20 20 Blood Pressure 127/56 L Pulse Oximetry 97 96 Oxygen Delivery Room Air Intake/Output Intake/Output: Intake & Output 08/10/25 08/11/25 08/12/25 08/13/25 23:59 23:59 23:59 23:59 Intake Total 360 1370 1110 380 Output Total 4025 1150 Balance -3665 1370 -40 380 Meds/Results Medications: Active Medications Generic Name Dose Route Start Last Admin Trade Name Freq PRN Reason Stop Dose Admin Acetaminophen 650 mg 08/10/25 07:13 Acetaminophen 325 Mg Tablet PO Q4H PRN Mild Pain (1-3) or Fever Albuterol 1 puff 08/10/25 13:11 Albuterol Sulfate (*Sp) Aerosol 1 Puff INHALATION QID PRN Shortness Of Breath Or Wheezing Aspirin 81 mg 08/11/25 09:00 08/13/25 08:33 Aspirin 81 Mg Enteric Tablet PO 81 mg DAILY PASHA Administration Baclofen 5 mg 08/10/25 17:00 08/13/25 08:33 Baclofen 5 Mg Tablet PO 5 mg BID PASHA Administration Chlorpromazine HCl 25 mg 08/10/25 13:11 08/13/25 08:37 Chlorpromazine Hcl 25 Mg Tablet PO 25 mg Q6H PRN Administration Hiccups Dorzolamide/Timolol 1 drop 08/10/25 17:00 08/13/25 08:40 Dorzolamide/Timolol Ophth Shannon 10 Ml Bottle LEFT EYE 1 drop TID PASHA Administration Enoxaparin Sodium 40 mg 08/11/25 09:00 08/13/25 08:37 Enoxaparin 40 Mg/0.4 Ml Syringe SUB-Q 40 mg DAILY PASHA Administration Famotidine 20 mg 08/10/25 21:00 08/13/25 08:33 Famotidine 20 Mg Tablet PO 20 mg Q12HR PASHA Administration Gabapentin 300 mg 08/10/25 13:20 08/13/25 08:33 Gabapentin 300 Mg Capsule PO 300 mg DAILY PASHA Administration Losartan Potassium 50 mg 08/10/25 13:20 08/13/25 08:33 Losartan Potassium 50 Mg Tablet PO 50 mg DAILY PASHA Administration Montelukast Sodium 10 mg 08/10/25 21:00 08/12/25 21:31 Montelukast Sodium 10 Mg Tablet PO 10 mg HS PASAH Administration Ondansetron HCl 4 mg 08/10/25 07:13 Ondansetron Inj 4 Mg/2 Ml Vial IV PUSH Q4H PRN Nausea Pravastatin Sodium 80 mg 08/10/25 13:20 08/13/25 08:32 Pravastatin Sodium 20 Mg Tablet PO 80 mg DAILY PASHA Administration Fluticasone/Salmeterol 2 puff 08/10/25 20:00 08/13/25 08:14 Fluticasone/Salmeterol 45-21 Mcg Inhaler 1 Puff INHALATION 2 puff Q12HRT PASHA Administration Radiology Results: ITS Impressions Chest X-Ray 08/10/25 06:55 IMPRESSION: 1. No acute cardiopulmonary findings given portable technique. Labs Labs: Laboratory Results - last 24 hr 08/12/25 08/13/25 15:31 05:48 WBC 9.0 RBC 3.37 L Hgb 9.8 L Hct 29.7 L MCV 88.1 MCH 29.1 MCHC 33.0 RDW 14.6 H Plt Count 232 MPV 10.8 H Immature Gran % (Auto) 0.3 Neut % (Auto) 82.1 H Lymph % (Auto) 10.0 L [place] % (Auto) 6.6 Eos % (Auto) 0.8 Baso % (Auto) 0.2 Lymph # (Auto) 0.90 [place] # (Auto) 0.6 Eos # (Auto) 0.1 Baso # (Auto) 0.0 Abs Immat Gran (auto) 0.03 Absolute Neuts (auto) 7.4 H Absolute Nucleated RBC 0.000 Nucleated RBC % 0.0 Sodium 125 L 128 L Potassium 4.5 3.9 Chloride 94 L 97 L Carbon Dioxide 24 23 Anion Gap 7 8 BUN 14 D 17 Creatinine 0.92 1.11 Estim Creat Clear Calc 68 57 Estimated GFR > 60 > 60 Glucose 111 H 102 Calcium 9.5 9.4 Magnesium 2.3 Total Bilirubin 0.4 AST 15 L ALT 10 Alkaline Phosphatase 55 Total Protein 6.6 Albumin 3.7
--- NOTE | 2025-08-13 17:14 | P.PNIM_ITS ---
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 -Due to over-correction received DDAVP and D5 water 08/10/2025 -slowly improving now -Urine Na and urine osmolarity pending -nephrology following -Had a conversation with the neurologist as a curbside and he recommends Dr. Malachi Shi movement disorder specialist for his chronic hiccups issue -receives thorazine but still hiccups persist but better than 2 days ago (2) Chronic hiccups: Code(s): R06.6 - Hiccough Status: Acute Assessment and Plan: Given Thorazine in ED Continue chlorpromazine 25 mg p.o. q.6 hours p.r.n. for hiccups Also on baclofen -Had a conversation with the neurologist as a curbside and he recommends Dr. Malachi Shi movement disorder specialist for his chronic hiccups issue -receives thorazine but still hiccups persist but better than 2 days ago (3) Hypertension: Qualifiers: Hypertension type: primary hypertension Qualified Code(s): I10 - Essential (primary) hypertension Code(s): I10 - Essential (primary) hypertension Status: Chronic Assessment and Plan: Continue losartan Plan chronic normocytic anemia Legally blind Glaucoma COPD Multiple cysts in liver Code status full code DVT prophylaxis Lovenox Subjective Date/time seen: 08/13/25 17:14 Interval history: Patient over correct sodium on and received DDAVP. His current sodium is 128. Possible discharge tomorrow. Patient agrees with the plan. Had a conversation with the neurologist as a curbside and he recommends Dr. Malachi Shi movement disorder specialist for his chronic hiccups issue Review of Systems Review of Systems: As reviewed above in HPI All systems reviewed & are unremarkable except as noted in HPI and below Exam Narrative: GENERAL: non-toxic appearing, in no acute distress. HEAD: Normocephalic, atraumatic. 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 CTA. CARDIOVASCULAR: Regular rate and rhythm GASTROINTESTINAL: Abdomen is soft and nontender. No organomegaly. Bowel sounds normal in all quadrants. GENITOURINARY: Defer MUSCULOSKELETAL: Moves all extremities. No gross deformities. SKIN: Warm, dry, normal color. NEURO: A&O X4. Speech clear. No ataxia or focal neurological deficits. No facial asymmetry. PSYCHIATRIC: Normal interaction Objective Data Vital Signs Vital Signs: Vital Signs - 24 hr 08/12/25 20:00 08/12/25 20:00 08/12/25 20:34 Temperature 98.4 F Pulse Rate 90 71 72 Respiratory Rate 18 18 Blood Pressure 98/52 L Pulse Oximetry 99 99 Oxygen Delivery Room Air 08/12/25 21:01 08/13/25 00:00 08/13/25 04:00 Temperature Pulse Rate 90 66 73 Respiratory Rate 18 Blood Pressure Pulse Oximetry Oxygen Delivery 08/13/25 05:16 08/13/25 08:00 08/13/25 08:00 Temperature 97.4 F L Pulse Rate 80 88 Respiratory Rate 18 Blood Pressure 127/56 L Pulse Oximetry 97 Oxygen Delivery Room Air 08/13/25 08:14 08/13/25 08:15 08/13/25 12:00 Temperature Pulse Rate 78 78 76 Respiratory Rate 20 20 Blood Pressure Pulse Oximetry 96 Oxygen Delivery Room Air 08/13/25 14:00 Temperature 97.4 F L Pulse Rate 70 Respiratory Rate 20 Blood Pressure 102/54 L Pulse Oximetry 98 Oxygen Delivery Intake/Output Intake/Output: Intake & Output 08/10/25 08/11/25 08/12/25 08/13/25 23:59 23:59 23:59 23:59 Intake Total 360 1370 1110 620 Output Total 4025 1150 Balance -3665 1370 -40 620 Meds/Results Medications: Active Medications Generic Name Dose Route Start Last Admin Trade Name Freq PRN Reason Stop Dose Admin Acetaminophen 650 mg 08/10/25 07:13 Acetaminophen 325 Mg Tablet PO Q4H PRN Mild Pain (1-3) or Fever Albuterol 1 puff 08/10/25 13:11 Albuterol Sulfate (*Sp) Aerosol 1 Puff INHALATION QID PRN Shortness Of Breath Or Wheezing Aspirin 81 mg 08/11/25 09:00 08/13/25 08:33 Aspirin 81 Mg Enteric Tablet PO 81 mg DAILY PASHA Administration Baclofen 5 mg 08/10/25 17:00 08/13/25 16:52 Baclofen 5 Mg Tablet PO 5 mg BID PASHA Administration Chlorpromazine HCl 25 mg 08/10/25 13:11 08/13/25 08:37 Chlorpromazine Hcl 25 Mg Tablet PO 25 mg Q6H PRN Administration Hiccups Dorzolamide/Timolol 1 drop 08/10/25 17:00 08/13/25 16:52 Dorzolamide/Timolol Ophth Shannon 10 Ml Bottle LEFT EYE 1 drop TID PASHA Administration Enoxaparin Sodium 40 mg 08/11/25 09:00 08/13/25 08:37 Enoxaparin 40 Mg/0.4 Ml Syringe SUB-Q 40 mg DAILY PASHA Administration Famotidine 20 mg 08/10/25 21:00 08/13/25 08:33 Famotidine 20 Mg Tablet PO 20 mg Q12HR PASHA Administration Gabapentin 300 mg 08/10/25 13:20 08/13/25 08:33 Gabapentin 300 Mg Capsule PO 300 mg DAILY PASHA Administration Losartan Potassium 50 mg 08/10/25 13:20 08/13/25 08:33 Losartan Potassium 50 Mg Tablet PO 50 mg DAILY PASHA Administration Montelukast Sodium 10 mg 08/10/25 21:00 08/12/25 21:31 Montelukast Sodium 10 Mg Tablet PO 10 mg HS PASHA Administration Ondansetron HCl 4 mg 08/10/25 07:13 Ondansetron Inj 4 Mg/2 Ml Vial IV PUSH Q4H PRN Nausea Pravastatin Sodium 80 mg 08/10/25 13:20 08/13/25 08:32 Pravastatin Sodium 20 Mg Tablet PO 80 mg DAILY PASHA Administration Fluticasone/Salmeterol 2 puff 08/10/25 20:00 08/13/25 08:14 Fluticasone/Salmeterol 45-21 Mcg Inhaler 1 Puff INHALATION 2 puff Q12HRT PASHA Administration Radiology Results: ITS Impressions Chest X-Ray 08/10/25 06:55 IMPRESSION: 1. No acute cardiopulmonary findings given portable technique. Labs Labs: Laboratory Results - last 24 hr 08/13/25 05:48 WBC 9.0 RBC 3.37 L Hgb 9.8 L Hct 29.7 L MCV 88.1 MCH 29.1 MCHC 33.0 RDW 14.6 H Plt Count 232 MPV 10.8 H Immature Gran % (Auto) 0.3 Neut % (Auto) 82.1 H Lymph % (Auto) 10.0 L [place] % (Auto) 6.6 Eos % (Auto) 0.8 Baso % (Auto) 0.2 Lymph # (Auto) 0.90 [place] # (Auto) 0.6 Eos # (Auto) 0.1 Baso # (Auto) 0.0 Abs Immat Gran (auto) 0.03 Absolute Neuts (auto) 7.4 H Absolute Nucleated RBC 0.000 Nucleated RBC % 0.0 Sodium 128 L Potassium 3.9 Chloride 97 L Carbon Dioxide 23 Anion Gap 8 BUN 17 Creatinine 1.11 Estim Creat Clear Calc 57 Estimated GFR > 60 Glucose 102 Calcium 9.4 Magnesium 2.3 Total Bilirubin 0.4 AST 15 L ALT 10 Alkaline Phosphatase 55 Total Protein 6.6 Albumin 3.7 Hospitalist MIPS Advance Care Plan I have confirmed that the patient's Advanced Care Plan is present, code status is documented, or surrogate decision maker is listed in patient medical record.: Yes Medication Reconciliation I have utilized all available resources to obtain, update and review the patients current medications (includes all prescriptions, OTC, herbals, cannabis, and nutritional supplements).: Yes
[2025-08-13] MEDS: MONTELUKAST SODIUM 10 MG TABLET PO (20:48)
[2025-08-14] VITALS (8 sets, daily range): BP systolic 107–115; BP diastolic 60–65; PULSE 66–99; RESP 14–20; TEMP 36.8–37.1; O2SAT 97–100
[2025-08-14] MEDS: FAMOTIDINE 20 MG TABLET PO (08:36)
[2025-08-14] MEDS: GABAPENTIN 300 MG CAPSULE PO (08:36)
[2025-08-14] MEDS: ASPIRIN 81 MG ENTERIC TABLET PO (08:36)
[2025-08-14] MEDS: LOSARTAN POTASSIUM 50 MG TABLET PO (08:36)
[2025-08-14] MEDS: PRAVASTATIN SODIUM 20 MG TABLET 80 MG PO (08:36)
[2025-08-14] MEDS: BACLOFEN 5 MG TABLET PO (08:36)
[2025-08-14] MEDS: DORZOLAMIDE/TIMOLOL OPHTH SOL 10 ML BOTTLE 1 DROP LEFT EYE ×2 (08:37→14:47)
[2025-08-14] MEDS: ENOXAPARIN 40 MG/0.4 ML SYRINGE SUB-Q (08:37)
[2025-08-14] MEDS: FLUTICASONE/SALMETEROL 45-21 MCG INHALER 1 PUFF 2 PUFF INHALATION (08:57)
[2025-08-14 09:09] LABS: Anion Gap 7 mmol/L (4-12); Blood Urea Nitrogen 17 mg/dL (9-20); Calcium 9.4 mg/dL (8.4-10.2); Carbon Dioxide 24 mmol/L (22-30); Chloride 103 mmol/L (98-107); Estimated CRCL calculation 70 ml/min; Estimated Glomerular Filt Rate > 60; Glucose 101 mg/dL (65-110); Potassium 4.4 mmol/L (3.4-5.0); Sodium 134 mmol/L (137-145)
--- NOTE | 2025-08-14 11:14 | P.PNNP_ITS ---
Progress Note: A&P Assessment and Plan (1) Hyponatremia: Code(s): E87.1 - Hypo-osmolality and hyponatremia Status: Acute Assessment and Plan: Patient has low sodium. This is due to excessive free water intake. His sodium level corrected too quickly and so DDAVP given x2 and now sodium is back down to 123 which is where it should be. Sodium level brad from 128-134. DDAVP is now wearing off. Will change fluid restriction [id number] per day. Hopefully he can continue this as an outpatient. (2) Anemia: Code(s): D64.9 - Anemia, unspecified Status: Acute Assessment and Plan: * low H/H noted * The patient has been anemic for a long time. * Hemoglobin of min down in the 90s and 10s. (3) Hypertension: Qualifiers: Hypertension type: primary hypertension Qualified Code(s): I10 - Essential (primary) hypertension Code(s): I10 - Essential (primary) hypertension Status: Chronic Assessment and Plan: * Systolic ranging frm 98 to 127 * follow trend of hemodynamics (4) Chronic hiccups: Code(s): R06.6 - Hiccough Status: Chronic Assessment and Plan: * chronic issue * Sodium issues might be responsible at least in part Subjective Date/time seen: 08/14/25 11:14 Interval history: Patient is feeling okay today. Sitting up in a chair. Exam Narrative: WDWN in NAD skin no rash or subQ nodules head ncat lungs clear bilaterally cor reg no rub abd BS+ nontender and soft ext no edema. Objective Data Vital Signs Vital Signs: Vital Signs - 24 hr 08/13/25 12:00 08/13/25 14:00 08/13/25 16:00 Temperature 97.4 F L Pulse Rate 76 70 67 Respiratory Rate 20 Blood Pressure 102/54 L Pulse Oximetry 98 Oxygen Delivery Fraction of Inspired Oxygen 08/13/25 20:00 08/13/25 20:00 08/13/25 20:11 Temperature Pulse Rate 82 70 Respiratory Rate 16 Blood Pressure Pulse Oximetry 99 Oxygen Delivery Room Air Room Air Fraction of Inspired Oxygen 21 08/13/25 20:11 08/13/25 20:15 08/14/25 00:00 Temperature 97.4 F L Pulse Rate 70 71 78 Respiratory Rate 16 18 Blood Pressure 108/52 L Pulse Oximetry 98 Oxygen Delivery Fraction of Inspired Oxygen 08/14/25 04:00 08/14/25 04:25 08/14/25 08:57 Temperature 98.2 F Pulse Rate 84 94 99 Respiratory Rate 20 18 Blood Pressure 115/65 Pulse Oximetry 97 98 Oxygen Delivery Room Air Fraction of Inspired Oxygen 08/14/25 08:57 Temperature Pulse Rate 99 Respiratory Rate 18 Blood Pressure Pulse Oximetry Oxygen Delivery Fraction of Inspired Oxygen Intake/Output Intake/Output: Intake & Output 08/11/25 08/12/25 08/13/25 08/14/25 23:59 23:59 23:59 23:59 Intake Total 1370 1110 1100 630 Output Total 1150 Balance 1370 -40 1100 630 Meds/Results Medications: Active Medications Generic Name Dose Route Start Last Admin Trade Name Freq PRN Reason Stop Dose Admin Acetaminophen 650 mg 08/10/25 07:13 Acetaminophen 325 Mg Tablet PO Q4H PRN Mild Pain (1-3) or Fever Albuterol 1 puff 08/10/25 13:11 Albuterol Sulfate (*Sp) Aerosol 1 Puff INHALATION QID PRN Shortness Of Breath Or Wheezing Aspirin 81 mg 08/11/25 09:00 08/14/25 08:36 Aspirin 81 Mg Enteric Tablet PO 81 mg DAILY PASHA Administration Baclofen 5 mg 08/10/25 17:00 08/14/25 08:36 Baclofen 5 Mg Tablet PO 5 mg BID PASHA Administration Chlorpromazine HCl 25 mg 08/10/25 13:11 08/14/25 04:18 Chlorpromazine Hcl 25 Mg Tablet PO 25 mg Q6H PRN Administration Hiccups Dorzolamide/Timolol 1 drop 08/10/25 17:00 08/14/25 08:37 Dorzolamide/Timolol Ophth Shannon 10 Ml Bottle LEFT EYE 1 drop TID PASHA Administration Enoxaparin Sodium 40 mg 08/11/25 09:00 08/14/25 08:37 Enoxaparin 40 Mg/0.4 Ml Syringe SUB-Q 40 mg DAILY PASHA Administration Famotidine 20 mg 08/10/25 21:00 08/14/25 08:36 Famotidine 20 Mg Tablet PO 20 mg Q12HR PASHA Administration Gabapentin 300 mg 08/10/25 13:20 08/14/25 08:36 Gabapentin 300 Mg Capsule PO 300 mg DAILY PASHA Administration Losartan Potassium 50 mg 08/10/25 13:20 08/14/25 08:36 Losartan Potassium 50 Mg Tablet PO 50 mg DAILY PASHA Administration Montelukast Sodium 10 mg 08/10/25 21:00 08/13/25 20:48 Montelukast Sodium 10 Mg Tablet PO 10 mg HS PASHA Administration Ondansetron HCl 4 mg 08/10/25 07:13 Ondansetron Inj 4 Mg/2 Ml Vial IV PUSH Q4H PRN Nausea Pravastatin Sodium 80 mg 08/10/25 13:20 08/14/25 08:36 Pravastatin Sodium 20 Mg Tablet PO 80 mg DAILY PASHA Administration Fluticasone/Salmeterol 2 puff 08/10/25 20:00 08/14/25 08:57 Fluticasone/Salmeterol 45-21 Mcg Inhaler 1 Puff INHALATION 2 puff Q12HRT PASHA Administration Radiology Results: ITS Impressions Chest X-Ray 08/10/25 06:55 IMPRESSION: 1. No acute cardiopulmonary findings given portable technique. Labs Labs: Laboratory Results - last 24 hr 08/14/25 08:42 Sodium 134 L Potassium 4.4 Chloride 103 Carbon Dioxide 24 Anion Gap 7 BUN 17 Creatinine 0.89 Estim Creat Clear Calc 70 Estimated GFR > 60 Glucose 101 Calcium 9.4
--- NOTE | 2025-08-14 12:51 | P.DS_ITS ---
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 He is also legally blind, has chronic anemia, hypertension, and COPD/asthma overlap. He is being discharged on a 2L/day fluid restriction, with ongoing need for close sodium monitoring and management of chronic hiccups. Follow-Up [facility] Points/Tasks Responsible Provider/Timeline Hyponatremia - Reinforce strict 2L/day fluid restrict ion - Review sodium trends and risk of rapid correction - Monitor for symptoms: confusion, weakn ess, nausea, seizures - Serial outpatient sodium checks (e.g., 2?3x/week initially, then weekly if stable) - Educate patient and family on signs of hypo/hypernat remia - Primary care and nephrology - Labs within 48?72h post-discharge, the n as above Chronic hiccups - Continue chlorpromazine 25 mg PO q6h P RN and baclofen 5 mg BID - Assess hiccup frequency/severity - [facility] - Monitor for medication side effects (sedation, EPS, hypotension) - Primary care - Neurology/movement disorder specialist - Review at next visit (1?2 weeks) Medication review - Confirm adherence to home meds (losart an, pravastatin, montelukast, inhalers, etc.) - Monitor for drug-induced hyponatremia (chlorpromazine) - Review for potential interactions - Primary care - Pharmacy review as needed Chronic anemia - Monitor CBC periodically - Assess for symptoms (fatigue, SOB, pal giancarlo) - Evaluate for ongoing sources of blood loss or nutrit ional deficiencies - Primary care - Hematology if worsening Other comorbidities - Monitor BP, COPD/asthma symptoms, glau coma management - Ensure follow-up with ophthalmology, pulmonology as indicated - Primary care - Specialists as needed Patient safety/social - Assess for barriers to adherence (visi on, hearing, cognitive) - Confirm support at home ( as surro gate) - Review advance care planning - Social work/case tigre oneil - Primary care [facility] Parameters: * Serum sodium:?2?3x/week initially, then weekly if stable * Fluid intake:?Strict 2L/day, with education for patient and family * Hiccup control:?Track frequency, impact on quality of life, and medication side effects * Signs of overcorrection:?Headache, confusion, seizures?urgent evaluation if present * Medication side effects:?Sedation, orthostatic hypotension, EPS (chlorpromazine), muscle weakness (baclofen) Patient/Family Education: * Importance of fluid restriction and risks of nonadherence * Early symptoms of sodium imbalance * When to seek urgent care (confusion, seizures, severe weakness) * Medication side effects to report * F/u with PCP in 3-5 days, f/u with nephrology as instructed Time Spent with Patient Time attestation: Total time spent providing and/or coordinating discharge services: DS: Data Data Completed and Pending Labs on day of discharge: Labs from last 24 hours 08/14/25 08:42 Sodium 134 L Potassium 4.4 Chloride 103 Carbon Dioxide 24 Anion Gap 7 BUN 17 Creatinine 0.89 Estim Creat Clear Calc 70 Estimated GFR > 60 Glucose 101 Calcium 9.4 Discharge Plan Discharge Attending physician on discharge: Michael Wells Consulting providers: Marla Lopez; Michael Wells Discharging Clinician: Michael Wells Anticipated Discharge Date/Time: 08/14/25 12:48 Patient Disposition: Home Activity: as tolerated Diet: as tolerated and regular Discharge Instructions: Recommends Dr. Malachi Shi movement disorder specialist for his chronic hiccups issue Continue 2000 mL fluid restriction Patient Instructions: Antibiotic Form Patient Language: Mexican Stand Alone Forms: General Discharge Information Follow-up/Referrals: Marla Lopez MD [Physician, Nephrology] Referral Note: F/u with Nephrology as instructed Celine,TRAVIS Lawler [Primary Care Provider, Unknown] Referral Note: F/u with PCP in 3-5 days Discharge Medications: Continued baclofen 5 mg tablet 5 mg PO BID losartan 50 mg tablet 50 mg PO DAILY pravastatin 80 mg tablet 80 mg PO DAILY montelukast 10 mg tablet 10 mg PO HS albuterol sulfate 90 mcg/actuation HFA aerosol inhaler 1 inh inhalation QID PRN (Reason: shortness of breath or wheezing) Qty: 8.5 0RF dorzolamide-timolol 22.3-6.8 mg/mL drops 1 drp LEFT EYE TID gabapentin 300 mg capsule 300 mg PO DAILY budesonide-formoterol 80-4.5 mcg/actuation HFA aerosol inhaler 2 puff INHALATION Q12H famotidine 20 mg Tablet 20 mg PO Q12HR Qty: 60 0RF cyanocobalamin (vitamin B-12) 100 mcg Tablet 2,000 mcg PO DAILY cholecalciferol (vitamin D3) [Vitamin D3] 25 mcg (1,000 unit) Capsule 25 mcg PO DAILY chlorpromazine 25 mg Tablet 25 mg PO Q6H PRN (Reason: Hiccups) Qty: 30 0RF aspirin [Adult Aspirin Regimen] 81 mg tablet,delayed release (DR/EC) 81 mg PO DAILY chlorpromazine 25 mg Tablet 25 mg PO Q6H PRN (Reason: Hiccups) Qty: 60 0RF Date of admission: 08/11/25 16:20 Primary Care Provider: CelineNuris Admitting Provider: Jxaon Vega Attending physician on admission: Jaxon Vega Condition: Stable
== END 2025-08-14 16:36 | disposition home or self-care (01) | DRG 641 ==
LOC: ANHED 08:27 → ANH3MEDSUR 08:40
PROVIDERS: Internal Medicine; Internal Medicine Nephrology; Admitting Provider General Practice; Emergency Provider Student in an Organized Health Care Education/Training Program; PCP Physician Assistant; Visit Provider Internal Medicine
DX: E87.1 Hypo-osmolality and hyponatremia (principal); M87.852 Other osteonecrosis, left femur; M87.851 Other osteonecrosis, right femur; R63.1 Polydipsia; R06.6 Hiccough; D64.9 Anemia, unspecified; H54.8 Legal blindness, as defined in USA; E78.5 Hyperlipidemia, unspecified; H40.9 Unspecified glaucoma; H91.90 Unspecified hearing loss, unspecified ear; J44.9 Chronic obstructive pulmonary disease, unspecified; K76.89 Other specified diseases of liver; Z20.822 Contact with and (suspected) exposure to COVID-19; I10 Essential (primary) hypertension; F10.91 Alcohol use, unspecified, in remission; Z87.891 Personal history of nicotine dependence; Z97.4 Presence of external hearing-aid; Z86.16 Personal history of COVID-19; Z86.0101 Personal history of adenomatous and serrated colon polyps; Z87.19 Personal history of other diseases of the digestive system; Z79.82 Long term (current) use of aspirin
CPT/HCPCS: 36415; 71045; 80048; 80053; 81003; 83735; 84295; 84300; 84443; 85025; 87637; 93005; 94640; 96372; 96374; 96376; 99285; A9270; G0378; J1650; J2597; J7060

== ENCOUNTER 2025-08-27 15:41 | Emergency (ER) | payer MEDICARE, SELFPAY ==
--- NOTE | ~2025-08-27 | CT_ITS ---
EXAMINATION: CT abdomen pelvis w con DATE: 08/27/2025 20:14 INDICATION: Vomiting. TECHNIQUE: Computed tomography (CT) of the abdomen and pelvis was performed without intravenous contrast. Automated exposure control and iterative reconstruction technique were employed. The dose-length product was 294.49 mGy-cm. COMPARISON: Chest x-ray dated 08/27/2025. FINDINGS: Overall quality of the study is limited by breathing motion artifacts. No acute findings of the lung bases particularly in the left lung. Large hiatus hernia. No focal lesions of liver and spleen other than granulomatous lesions. Gallbladder shows no acute findings. Pancreas, bile ducts are normal. Kidneys show cystic changes of both kidneys. No calculi or obstruction are seen. No evidence of small bowel obstruction. Significant fecal impaction of the right colon. Significant impaction of the rectum. No inflammatory changes in the pelvis. IMPRESSION: 1. Limited evaluation due to breathing motion artifacts on multiple images. 2. No definite acute findings noted in the upper abdomen and pelvis. 3. Fecal impaction of proximal colon and rectum. Diverticulosis of distal colon. Reviewed, dictated and finalized at location T. O EXPERIENCE EXPERT IMPRESSION: 1. Limited evaluation due to breathing motion artifacts on multiple images. 2. No definite acute findings noted in the upper abdomen and pelvis. 3. Fecal impaction of proximal colon and rectum. Diverticulosis of distal colon .
--- NOTE | ~2025-08-27 | XR_ITS ---
EXAMINATION: XR chest 2V DATE: 08/27/2025 18:06 INDICATION: Chest pain TECHNIQUE: Frontal and lateral views of the chest were obtained. COMPARISON: Chest x-ray 08/10/2025 FINDINGS: Heart size is normal. Right lung is clear. Infiltrates in the mid and lower left lung cardenas suggest pneumonia. IMPRESSION: 1. Patchy airspace opacities of mid and lower left lung, likely pneumonia. Emphysematous lungs. Reviewed, dictated and finalized at location T. BLOWING MACHINE ATTENDANT IMPRESSION: 1. Patchy airspace opacities of mid and lower left lung, likely pneumonia. Emph ysematous lungs.
[2025-08-27 16:16] VITALS: BP 144/57; PULSE 86; RESP 16; TEMP 37.2; O2SAT 99
--- NOTE | 2025-08-27 17:35 | ED.GENADULT ---
HPI - General Adult General Chief complaint: Abdominal Pain <TRAVIS Vasquez - Last Filed: 08/27/25 18:00> Stated complaint: abd, NV since last night <TRAVIS Vasquez - Last Filed: 08/27/25 18:00> Time Seen by Provider: 08/27/25 19:01 <TRAVIS Vasquez - Last Filed: 08/27/25 18:00> Focused HPI: 64 year old male presenting with hiccups, vomiting, and lightheadedness since last night. He is also reporting chest pain and shortness of breath from the hiccups. Denies diarrhea, abdominal pain, urinary complaints, or fevers/chills. Family states the patient has had issues with hiccups for the last five years. GENERAL: No acute distress. HEAD: Normocephalic, atraumatic. CHEST: Clear to auscultation. ?No respiratory distress. HEART: Regular rate and rhythm.? NEURO: ?Alert and oriented x3. Patient screened in triage and initial orders placed.? ?Additional care and disposition to be based upon?diagnostic testing and treatment. <TRAVIS Vasquez - Last Filed: 08/27/25 18:00> History of Present Illness HPI narrative: 64-year-old male history of chronic hiccups presenting to the emergency department for evaluation for hiccups and associated nausea vomiting and diffuse abdominal pain. Patient reports symptoms started last night. Patient does take Thorazine and baclofen for his hiccups. Patient also does have a history of hyponatremia. At time of initial evaluation patient is well-appearing. <Cas Leon MD - Last Filed: 08/28/25 02:48> Related Data Home medications: Home Medications ?Medication ?Instructions ?Recorded ?Confirmed ?Last Taken ?Type losartan 50 mg tablet 50 mg PO DAILY 03/02/21 08/10/25 07/26/25 History montelukast 10 mg tablet 10 mg PO HS 03/02/21 08/10/25 07/25/25 History pravastatin 80 mg tablet 80 mg PO DAILY 03/02/21 08/10/25 07/26/25 History cholecalciferol (vitamin D3) 25 25 mcg PO DAILY 03/29/21 08/10/25 07/26/25 History mcg (1,000 unit) capsule (Vitamin D3) cyanocobalamin (vitamin B-12) 100 2,000 mcg PO DAILY 03/29/21 08/10/25 07/26/25 History mcg tablet dorzolamide 22.3 mg-timolol 6.8 1 drp LEFT EYE TID 06/29/24 08/10/25 07/26/25 History mg/mL eye drops budesonide-formoterol HFA 80 2 puff inhalation Q12H 12/26/24 08/10/25 07/25/25 History mcg-4.5 mcg/actuation aerosol inhaler gabapentin 300 mg capsule 300 mg PO DAILY 12/26/24 08/10/25 07/26/25 History aspirin 81 mg tablet,delayed 81 mg PO DAILY 03/25/25 08/10/25 07/26/25 History release (Adult Aspirin Regimen) baclofen 5 mg tablet 5 mg PO BID 04/24/25 08/10/25 06/19/25 History <TRAVIS Vasquez - Last Filed: 08/27/25 18:00> Allergies/adverse reactions: Allergies Allergy/AdvReac Type Severity Reaction Status Date / Time No Known Allergies Allergy Verified 08/10/25 08:49 <TRAVIS Vasquez - Last Filed: 08/27/25 18:00> Review of Systems Review of Systems: All systems reviewed & are unremarkable except as noted in HPI and below <Cas Leon MD - Last Filed: 08/28/25 02:48> [facility] Past Medical History Medical History: Medical History Hearing loss Impacted cerumen, left ear Asthma-COPD overlap syndrome Wears hearing aid in both ears Adenomatous colon polyp Hiatal hernia Other osteonecrosis, left femur Other osteonecrosis, right femur Psychogenic polydipsia Erosive esophagitis Anemia of chronic disease Chronic hiccups Hyponatremia Tobacco abuse Normocytic anemia Glaucoma Legally blind. Hyperlipidemia Hypertension <TRAVIS Vasquez - Last Filed: 08/27/25 18:00> Surgical History Surgical History: Surgical History History of enucleation of eye Right, secondary to recurrent infection. <TRAVIS Vasquez - Last Filed: 08/27/25 18:00> Family History Family History: Family History Grandparent Acute myocardial infarction Mother Acute myocardial infarction Skin cancer Father Acute myocardial infarction Sibling Cancer <TRAVIS Vasquez - Last Filed: 08/27/25 18:00> Social History Social History: Social History Social History: Surrogate decision maker: Svitlana Hines, . Code status: Full code. Smoking packs per day: 1.5 Smoking cigarettes per day: 30.0 Years smoked: 50 Smoking pack-years: 75.00 Smoking status: Former smoker Tobacco type: cigarettes Second hand tobacco smoke exposure: No Smoking end date: 05/21/20 Alcohol intake: former Substance use: never Substance use type: does not use Lack of Transportation: No Lack of Food: Never True Current Housing: I Have Housing Concerned About Future Housing: No Difficulty Paying Gas/Electric Bills: No Difficulty Paying for Meds: No Currently Unemployed: No Education: High School Diploma/GED Difficulty w/ Childcare or Family Care: No Living arrangements: with family Additional living arrangements comments: The patient lives with his of 43 years in [place]. He and his had 4 children 1 of which at . His remaining children are healthy. 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 Spiritual care concerns: No <TRAVIS Vasquez - Last Filed: 08/27/25 18:00> Exam Narrative: APPEARANCE: Well appearing, no pain, no distress, well-nourished. HEAD: normocephalic, atraumatic. EYES: PERRLA/EOMI, conjunctivae clear. NOSE: Normal no drainage EARS:TMS clear with good light reflex. THROAT: Pharynx clear, no exudate. NECK: Supple. No adenopathy, no masses. RESPIRATORY: Airway patent, respirations nonlabored. Clear to auscultation bilaterally, no rales, rhonchi, wheezing. CARDIOVASCULAR: Regular rate and rhythm without murmurs rubs or gallops. ABDOMINAL: Soft, nontender, nondistended, normal bowel sounds MUSCULOSKELETAL: Moves all extremities. Strength/ROM intact, No edema, No calf tenderness. NEURO: Alert. Cranial nerves II through XII intact. Good gait. Good coordination SKIN: Warm, dry. Normal Color <Cas Leno MD - Last Filed: 08/28/25 02:48> Course Vital Signs Vital signs: Vital Signs Temperature 98.9 F 08/27/25 16:16 Pulse Rate 86 08/27/25 16:16 Respiratory Rate 16 08/27/25 16:16 Blood Pressure 144/57 H 08/27/25 16:16 Pulse Oximetry 99 08/27/25 16:16 Oxygen Delivery Room Air 08/27/25 16:16 Temperature 98.7 F 08/27/25 19:45 Pulse Rate 88 08/27/25 21:35 Respiratory Rate 18 08/27/25 21:35 Blood Pressure 134/85 08/27/25 21:35 Pulse Oximetry 100 08/27/25 21:35 Oxygen Delivery Room Air 08/27/25 19:46 <TRAVIS Vasquez - Last Filed: 08/27/25 18:00> Vital Signs Temperature 98.9 F 08/27/25 16:16 Pulse Rate 86 08/27/25 16:16 Respiratory Rate 16 08/27/25 16:16 Blood Pressure 144/57 H 08/27/25 16:16 Pulse Oximetry 99 08/27/25 16:16 Oxygen Delivery Room Air 08/27/25 16:16 Temperature 98.7 F 08/27/25 19:45 Pulse Rate 88 08/27/25 21:35 Respiratory Rate 18 08/27/25 21:35 Blood Pressure 134/85 08/27/25 21:35 Pulse Oximetry 100 08/27/25 21:35 Oxygen Delivery Room Air 08/27/25 19:46 <Cas Leon MD - Last Filed: 08/28/25 02:48> [facility] Narrative Medical decision making narrative: 64-year-old male presented to the emergency department for evaluation for hiccups and intermittent abdominal pain. Patient is currently afebrile but does have a leukocytosis of 11.5 and hemoglobin of 9.3 which is not far from his typical baseline. UA was negative for infection. Chest x-ray shows no acute cardiopulmonary abnormality. CT abdomen pelvis showed evidence of fecal impaction. Patient does have issues with constipation. Patient states he has not been taking any [id number] medications for constipation. Patient was advised to start taking MiraLax. Patient was treated with p.o. Thorazine, p.o. Ativan and a L of lactated Ringer's. Patient did report some minor improvement in his hiccups and patient is resting comfortably. Patient does have a prior history of significant hyponatremia but patient is only mildly hyponatremic today with a sodium of 133. Patient family updated the results of the workup they are comfortable plan for discharge and close follow-up. Patient states he is attempting to get follow-up with outpatient neurology at [facility] and was requesting to have a referral. Patient was advised that his primary care physician will have to provide the referral for [facility] neurology. <aCs Leon MD - Last Filed: 08/28/25 02:48> Differential Diagnosis Differential Diagnosis: colitis, diverticulitis, constipation, fecal impaction, hyponatremia, hyperkalemia <Cas Leon MD - Last Filed: 08/28/25 02:48> Lab Data Result diagrams: 08/27/25 18:38 08/27/25 18:38 <TRAVIS Vasquez - Last Filed: 08/27/25 18:00> Labs: Lab Results 08/27/25 Range/Units 18:38 WBC 11.5 H (4.5-10.0) K/mm3 RBC 3.21 L (4.6-6.20) M/mm3 Hgb 9.3 L (14.0-18.0) g/dL Hct 28.8 L (42.0-52.0) % MCV 89.7 (80-100) fl MCH 29.0 (26-34) pg MCHC 32.3 (32-36) g/dl RDW 14.7 H (11.5-14.5) % Plt Count 226 (150-375) k/mm3 MPV 10.9 H (7.4-10.4) fl Immature Gran % (Auto) 0.4 (0-0.5) % Neut % (Auto) 83.8 H (45.5-73.1) % Lymph % (Auto) 10.2 L (18.3-44.2) % [place] % (Auto) 4.6 (2.6-8.5) % Eos % (Auto) 0.7 (0-4.4) % Baso % (Auto) 0.3 (0.2-1.2) % Lymph # (Auto) 1.17 (0.9-3.2) K/mm3 [place] # (Auto) 0.5 (0.1-0.6) K/mm3 Eos # (Auto) 0.1 (0-0.3) K/mm3 Baso # (Auto) 0.0 (0.0-0.1) K/mm3 Abs Immat Gran (auto) 0.05 H (0.00-0.031) K/mm3 Absolute Neuts (auto) 9.6 H (1.3-6.7) K/mm3 Absolute Nucleated RBC 0.000 (0.0-0.012) K/mm3 Nucleated RBC % 0.0 (0.0-0.2) % Sodium 133 L (137-145) mmol/L Potassium 4.7 (3.4-5.0) mmol/L Chloride 102 (98-107) mmol/L Carbon Dioxide 22 (22-30) mmol/L Anion Gap 9 (4-12) mmol/L BUN 16 (9-20) mg/dL Creatinine 0.80 (0.7-1.3) mg/dL Estim Creat Clear Calc 77 ml/min Estimated GFR > 60 (59 - ) Glucose 111 H (65-110) mg/dL Lactic Acid 0.7 (0.7-2.0) mmol/L Calcium 9.7 (8.4-10.2) mg/dL Total Bilirubin 0.3 (0.2-1.3) mg/dL AST 19 (17-59) U/L ALT 10 (6-50) U/L Alkaline Phosphatase 59 (38-126) U/L Total Protein 7.5 (6.3-8.2) g/dL Albumin 4.2 (3.5-5.1) g/dL Lipase 87 (23-300) U/L Urine Color Yellow (Yellow) Urine Appearance Clear (Clear) Urine pH 7.0 (5.0-9.0) Ur Specific [place] 1.002 (1.001-1.035) Urine Protein Negative (Negative) mg/dL Urine Glucose (UA) Negative (Negative) mg/dL Urine Ketones Negative (Negative) mg/dL Ur Blood (Man) Negative (Negative) Urine Nitrate Negative (Negative) Urine Bilirubin Negative (Negative) Urine Urobilinogen 0.2 (<2.0) mg/dL Leukocyte Esterase Rfl Negative (Negative) BENTLEY/UL <TRAVIS Vasquez - Last Filed: 08/27/25 18:00> Lab Results 08/27/25 Range/Units 18:38 WBC 11.5 H (4.5-10.0) K/mm3 RBC 3.21 L (4.6-6.20) M/mm3 Hgb 9.3 L (14.0-18.0) g/dL Hct 28.8 L (42.0-52.0) % MCV 89.7 (80-100) fl MCH 29.0 (26-34) pg MCHC 32.3 (32-36) g/dl RDW 14.7 H (11.5-14.5) % Plt Count 226 (150-375) k/mm3 MPV 10.9 H (7.4-10.4) fl Immature Gran % (Auto) 0.4 (0-0.5) % Neut % (Auto) 83.8 H (45.5-73.1) % Lymph % (Auto) 10.2 L (18.3-44.2) % [place] % (Auto) 4.6 (2.6-8.5) % Eos % (Auto) 0.7 (0-4.4) % Baso % (Auto) 0.3 (0.2-1.2) % Lymph # (Auto) 1.17 (0.9-3.2) K/mm3 [place] # (Auto) 0.5 (0.1-0.6) K/mm3 Eos # (Auto) 0.1 (0-0.3) K/mm3 Baso # (Auto) 0.0 (0.0-0.1) K/mm3 Abs Immat Gran (auto) 0.05 H (0.00-0.031) K/mm3 Absolute Neuts (auto) 9.6 H (1.3-6.7) K/mm3 Absolute Nucleated RBC 0.000 (0.0-0.012) K/mm3 Nucleated RBC % 0.0 (0.0-0.2) % Sodium 133 L (137-145) mmol/L Potassium 4.7 (3.4-5.0) mmol/L Chloride 102 (98-107) mmol/L Carbon Dioxide 22 (22-30) mmol/L Anion Gap 9 (4-12) mmol/L BUN 16 (9-20) mg/dL Creatinine 0.80 (0.7-1.3) mg/dL Estim Creat Clear Calc 77 ml/min Estimated GFR > 60 (59 - ) Glucose 111 H (65-110) mg/dL Lactic Acid 0.7 (0.7-2.0) mmol/L Calcium 9.7 (8.4-10.2) mg/dL Total Bilirubin 0.3 (0.2-1.3) mg/dL AST 19 (17-59) U/L ALT 10 (6-50) U/L Alkaline Phosphatase 59 (38-126) U/L Total Protein 7.5 (6.3-8.2) g/dL Albumin 4.2 (3.5-5.1) g/dL Lipase 87 (23-300) U/L Urine Color Yellow (Yellow) Urine Appearance Clear (Clear) Urine pH 7.0 (5.0-9.0) Ur Specific [place] 1.002 (1.001-1.035) Urine Protein Negative (Negative) mg/dL Urine Glucose (UA) Negative (Negative) mg/dL Urine Ketones Negative (Negative) mg/dL Ur Blood (Man) Negative (Negative) Urine Nitrate Negative (Negative) Urine Bilirubin Negative (Negative) Urine Urobilinogen 0.2 (<2.0) mg/dL Leukocyte Esterase Rfl Negative (Negative) BENTLEY/UL <Cas Leon MD - Last Filed: 08/28/25 02:48> Imaging Data Radiologist's impression: ITS Impressions Chest X-Ray 08/27/25 18:11 IMPRESSION: 1. Patchy airspace opacities of mid and lower left lung, likely pneumonia. Emphysematous lungs. Abdomen/Pelvis CT 08/27/25 20:15 IMPRESSION: 1. Limited evaluation due to breathing motion artifacts on multiple images. 2. No definite acute findings noted in the upper abdomen and pelvis. 3. Fecal impaction of proximal colon and rectum. Diverticulosis of distal colon. <TRAVIS Vasuqez - Last Filed: 08/27/25 18:00> ITS Impressions Chest X-Ray 08/27/25 18:11 IMPRESSION: 1. Patchy airspace opacities of mid and lower left lung, likely pneumonia. Emphysematous lungs. Abdomen/Pelvis CT 08/27/25 20:15 IMPRESSION: 1. Limited evaluation due to breathing motion artifacts on multiple images. 2. No definite acute findings noted in the upper abdomen and pelvis. 3. Fecal impaction of proximal colon and rectum. Diverticulosis of distal colon. <Cas Leon MD - Last Filed: 08/28/25 02:48> Discharge Plan Discharge Clinical Impression: Hiccup, Abdominal pain, Constipation <TRAVIS Vasquez - Last Filed: 08/27/25 18:00> Patient Disposition: Home <TRAVIS Vasquez - Last Filed: 08/27/25 18:00> Condition: Stable <TRAVIS Vasquez - Last Filed: 08/27/25 18:00> Instructions: Antibiotic Form, Constipation (DC), Abdominal Pain (ED) <TRAVIS Vasquez - Last Filed: 08/27/25 18:00> Additional Instructions: Reglan as needed for nausea control. Jswg-nln-bansyrl MiraLax as directed to help with constipation. Continue to have close follow-up with your primary care physician as outpatient. Your primary care physician will have to help set up your outpatient referral to [facility] neurology. If you have any worsening symptoms please call or return to the emergency department. <TRAVIS Vasquez - Last Filed: 08/27/25 18:00> Patient Language: Korean <TRAVIS Vasquez - Last Filed: 08/27/25 18:00> Prescriptions: New metoclopramide HCl [Reglan] 10 mg tablet 10 mg PO Q6H PRN (Reason: nausea and vomiting) Qty: 14 0RF chlorpromazine 25 mg tablet 25 mg PO Q6H PRN (Reason: hiccups) Qty: 14 0RF No Action baclofen 5 mg tablet 5 mg PO BID losartan 50 mg tablet 50 mg PO DAILY pravastatin 80 mg tablet 80 mg PO DAILY montelukast 10 mg tablet 10 mg PO HS albuterol sulfate 90 mcg/actuation HFA aerosol inhaler 1 inh inhalation QID PRN (Reason: shortness of breath or wheezing) Qty: 8.5 0RF dorzolamide-timolol 22.3-6.8 mg/mL drops 1 drp LEFT EYE TID gabapentin 300 mg capsule 300 mg PO DAILY budesonide-formoterol 80-4.5 mcg/actuation HFA aerosol inhaler 2 puff INHALATION Q12H famotidine 20 mg Tablet 20 mg PO Q12HR Qty: 60 0RF cyanocobalamin (vitamin B-12) 100 mcg Tablet 2,000 mcg PO DAILY cholecalciferol (vitamin D3) [Vitamin D3] 25 mcg (1,000 unit) Capsule 25 mcg PO DAILY chlorpromazine 25 mg Tablet 25 mg PO Q6H PRN (Reason: Hiccups) Qty: 30 0RF aspirin [Adult Aspirin Regimen] 81 mg tablet,delayed release (DR/EC) 81 mg PO DAILY chlorpromazine 25 mg Tablet 25 mg PO Q6H PRN (Reason: Hiccups) Qty: 60 0RF <TRAVIS Vasquez - Last Filed: 08/27/25 18:00> Follow-up/Referrals: Celine,TRAVIS Lawler [Primary Care Provider, Unknown] <TRAVIS Vasquez - Last Filed: 08/27/25 18:00>
--- NOTE | 2025-08-27 17:38 | ECG_ITS ---
Test Date: 2025-08-27 18:17:45 Measurements Intervals [place] Rate: 89 P: 29 IN: 120 QRS: 42 QRSD: 86 T: 53 QT: 345 QTc: 420 Interpretive Statements SINUS RHYTHM BASELINE ARTIFACT- II, III, V3 NORMAL ECG Compared to ECG 08/10/2025 06:11:14 No significant changes Electronically Signed On 08-27-2025 19:53:41 MANAGER SPEECH by Mika Lopez D.O.
[2025-08-27 18:21] VITALS: BP 134/57; PULSE 89; RESP 16; O2SAT 99
[2025-08-27 18:55] LABS: Hematocrit 28.8 % (42.0-52.0); Hemoglobin 9.3 g/dL (14.0-18.0); Immature Granulocyte Percent A 0.4 % (0-0.5); Lymphocytes Absolute Auto 1.17 K/mm3 (0.9-3.2); Mean Corpuscular HGB Conc 32.3 g/dl (32-36); Mean Corpuscular Hemoglobin 29.0 pg (26-34); Mean Corpuscular Volume 89.7 fl (80-100); Nucleated Red Blood Cells Absolute Auto 0.000 K/mm3 (0.0-0.012); Nucleated Red Blood Cells Perc 0.0 % (0.0-0.2); Platelet Count Result 226 k/mm3 (150-375); Red Blood Count 3.21 M/mm3 (4.6-6.20); White Blood Count 11.5 K/mm3 (4.5-10.0)
[2025-08-27 18:56] LABS: Add Urine Microscopic? NO; Appearance Urine Clear (Clear); Glucose Urine UA Negative (Negative); Leukocyte Esterase Ur Negative LEU/UL (Negative); Nitrate Urine Negative (Negative); Specific Grav Ur 1.002 (1.001-1.035)
[2025-08-27 18:58] LABS: Alanine Aminotransferase 10 U/L (6-50); Albumin Level 4.2 g/dL (3.5-5.1); Alkaline Phosphatase 59 U/L (38-126); Anion Gap 9 mmol/L (4-12); Aspartate Amino Transferase 19 U/L (17-59); Bilirubin,Total 0.3 mg/dL (0.2-1.3); Blood Urea Nitrogen 16 mg/dL (9-20); Calcium 9.7 mg/dL (8.4-10.2); Carbon Dioxide 22 mmol/L (22-30); Chloride 102 mmol/L (98-107); Estimated CRCL calculation 77 ml/min; Estimated Glomerular Filt Rate > 60; Glucose 111 mg/dL (65-110); Lipase 87 U/L (23-300); Potassium 4.7 mmol/L (3.4-5.0); Sodium 133 mmol/L (137-145); Total Protein 7.5 g/dL (6.3-8.2)
[2025-08-27 19:45] VITALS: BP 147/74; PULSE 86; RESP 18; TEMP 37.1; O2SAT 98
[2025-08-27 19:46] VITALS: PULSE 87; RESP 18; O2SAT 98
[2025-08-27] MEDS: SODIUM CHLORIDE 0.9% IV 1,000 ML 999 ML IV CONT (19:49)
[2025-08-27] MEDS: LORazepam (*CRX) 0.5 MG TABLET PO (19:50)
--- OUTSIDE RECORDS SUMMARY | 2025-08-27 20:24 | XMS_ITS | Clinical Summary ---
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 Pulse 82 09/04/2021 8:52 AM CUSTOMER SERVICE OFFICER Temperature 36.3 C (97.4 F) 09/04/2021 8:52 AM CUSTOMER SERVICE OFFICER Respiratory Rate 16 09/04/2021 8:52 AM CUSTOMER SERVICE OFFICER Oxygen Saturation 97% 09/04/2021 8:52 AM CUSTOMER SERVICE OFFICER Inhaled Oxygen Concentration - - Weight 64.4 kg (142 lb) 09/04/2021 8:52 AM CUSTOMER SERVICE OFFICER Height 172.7 cm (5' 8) 09/04/2021 8:52 AM CUSTOMER SERVICE OFFICER Body Mass Index 21.59 09/04/2021 8:52 AM CUSTOMER SERVICE OFFICER Plan of Treatment Health Maintenance Due [...] this topic Insurance [employer] MEDICARE Care Teams Bread Oven Operator Relationship Specialty Start Date End Date Nuris Berger PA [address] [place] [address] PCP - General PHYSICIAN FARM PLANNER 06/09/21
--- OUTSIDE RECORDS SUMMARY | 2025-08-27 20:24 | XMS_ITS | Encounter Summary ---
Author Organization [facility] Healthcare Address [address] [place] [address] Care Team Providers Care Dispatcher Motor Vehicle Name Role Phone Nuris Berger Primary Care Provider [phone] Jonatan Stokes MD Unavailable [phone] Irma Bajwa MD Unavailable [phone] Ayla Dugan LPN Unavailable [phone] Bro[address] MA Unavailable Unavailable Roxana Fernandez MA Unavailable [phone] Encounter Details Date Type Department Care Team (Late st Contact Info) Description 12/21/2024 Orders Only [facility] Health Information Management [address] [place] [id number] Scanning, Provider Social History Tobacco Use Types Packs/Day Years Used Date Smoking Tobacco: Former Cigarettes 0.8 40 0 09/1981 - 09/2021 Smokeless Tobacco: Never Alcohol Use Standard Drinks/Week Comments Yes 0 (1 standard drink = 0.6 oz pur e alcohol) social [facility] Utilities Answer Date Recorded In the past 12 months has [employer] electric, gas, oil, or water company threatened [...] often do you attend chur ch or mormonism services? 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 Gender Identity Not on file Sexual Orientation [...] on filedocumented in this encounter Care Teams Dispatcher Motor Vehicle Relationship Specialty Start Date End Date Nuris Berger PA [address] [place] [address] PCP - General Internal Medicine 12/28/18 Jonatan Stokes MD [address] [place] [address] Consulting Physician Otolaryngology 03/27/20 Irma Bajwa MD [facility] [place] [address] Consulting Physician Neurology 05/07/22 Ayla Dugan LPN [address] [place] [address] Poultry Culler 03/30/25 03/30/25 Brooke Plaza MA [address] [place] [address] ACO Care Process Design Engineer 06/18/25 06/19/25 Roxana Fernandez MA [address] [place] [address] ACO Care Process Design Engineer 07/31/25 07/31/25 documented as of this encounter
--- OUTSIDE RECORDS SUMMARY | 2025-08-27 20:24 | XMS_ITS | Clinical Summary ---
Author Organization [facility] [address] [facility] Address [address] [place] [address] Care Team Providers Care Tissue Recovery Technician Name Role Phone Nuris Berger Primary Care Provider [phone] Jonatan Stokes MD Unavailable [phone] Irma Bajwa MD Unavailable [phone] Allergies Active Allergy Reactions Criticality Noted Date [...] obstructive pulmonary disease, unspecified COPD type ([facility]) INHALE 2 PUFFS BY MOUTH TWICE DAILY. RINSE MOUTH WITH WATER AFTER USE. DO NOT SWALLOW 30.6 g 1 09/18/20 24 Active chlorproMAZINE (THORAZINE) 25 mg tablet Take [...] DAILY 120 tablet 1 06/22/20 25 Active baclofen (LIORESAL) 10 mg tabletIndicatio ns:Low back pain, unspecified back pain laterality, unspecified chronicity, unspecified whether sciatica present TAKE 1 TABLET(10 MG) BY MOUTH TWICE DAILY 60 tablet 1 06/27/20 25 Active famotidine (PEPCID) 20 mg tabletIndicatio ns:gastroesopha geal reflux disease Take 1 tablet (20 mg total) by mouth every 12 (twelve) hours 180 tablet 1 07/31/20 Active pravastatin (PRAVACHOL) 80 mg tablet TAKE 1 TABLET(80 MG) BY MOUTH DAILY 100 tablet 1 08/17/20 25 Active losartan (COZAAR) 50 mg tablet TAKE 1 TABLET(50 MG) BY MOUTH DAILY 100 tablet 1 08/17/20 25 Active pravastatin (PRAVACHOL) 80 mg tablet Take 1 tablet (80 mg total) by mouth daily 90 tablet 1 11/20/19 25 025 Discontinued famotidine (PEPCID) 20 mg tablet Take 1 tablet (20 mg total) by mouth every 12 (twelve) hours 06/16/20 025 Discontinued(Re order) losartan (COZAAR) 50 mg tablet Take 1 tablet (50 mg total) by mouth daily 07/08/20 025 Discontinued Active Problems Patient Care Coordination [...] 11/24/2023 Assessment & Plan (11/19/2024 11:45 PM WARM IN): Supplement Assessment & Plan (05/20/2024 7:36 PM CDT): Supplement Fatigue 12/12/2022 Assessment & Plan (05/20/2024 7:37 PM CDT): Probably multifactorial. Check labs and followup to re-evaluate Assessment & Plan (11/24/2023 10:35 AM WARM IN): Probably multifactorial. Check labs and followup to [...] 01/16/2022 Assessment & Plan (11/19/2024 11:44 PM WARM IN): Chronic hiccups for 5+ years Has been [...] to the ER. ER recommended referral to [facility] but patient states he can't go to [...] weeks Assessment & Plan (11/24/2023 10:34 AM WARM IN): Patient has persistent chronic hiccups that come [...] monitor Assessment & Plan (08/15/2023 5:01 PM WARM IN): Chronic hiccups for years. Has tried multiple interventions along with multiple workups from specialists including Neurology pulmonology and GI. Continue current regimen. Stressed importance of limiting water intake when he has the hiccups spells as this has been leading to hyponatremia requiring hospitalization. Assessment & Plan (08/11/2023 8:45 AM WARM IN): Patient with chronic hiccups. Have had difficulty [...] levels. Assessment & Plan (08/15/2022 6:45 PM WARM IN): Patient has consulted with most multiple specialists [...] hiccups. Assessment & Plan (08/15/2023 5:02 PM WARM IN): Chronic hiccups for years. Has tried multiple interventions along with multiple workups from specialists including Neurology pulmonology and GI. Continue current regimen. Stressed importance of limiting water intake when he has the hiccups spells as this has been leading to hyponatremia requiring hospitalization. Assessment & Plan (08/11/2023 8:46 AM WARM IN): Hyponatremia secondary to water intake with chronic [...] 07/14/2019 Assessment & Plan (11/19/2024 11:44 PM WARM IN): Continue PPI p.r.n. Assessment & Plan (05/20/2024 7:35 PM CDT): Continue pantoprazole p.r.n. Assessment & Plan (11/24/2023 10:33 AM WARM IN): Continue pantoprazole p.r.n. Assessment & Plan (04/08/2023 8:48 PM CDT): Continue PPI p.r.n. Assessment & Plan (12/12/2022 9:43 PM CDT): Insert PPI Assessment & Plan (08/15/2022 6:45 PM WARM IN): Continue PPI prn Assessment & Plan (02/09/2021 8:17 PM CDT): Continue PPI Assessment & Plan (07/29/2020 7:33 AM WARM IN): Continue PPI Assessment & Plan (03/27/2020 8:01 AM CDT): Dr. Stokes changed him from omeprazole to Pantoprazole for the hiccups. Pt hasn't noted any difference in GERD sxs (still well controlled) or hiccups. Assessment & Plan (09/26/2019 7:38 AM WARM IN): Continue PPI Assessment & Plan (07/14/2019 8:46 AM CDT): Discussed GERD at length including anatomy, behavioral changes (raise HOB, meal timings), dietary changes and medication options. Reviewed risks, benefits alternatives, side effects and proper use. Followup if sxs worsen or has hematochezia or hematemeis. Start PPI Chronic obstructive pulmonary disease 06/26/2019 Overview (06/26/2019): Noted on 06/2019 LDCT Assessment & Plan (11/19/2024 11:44 PM WARM IN): Patient with allergies and COPD. Continue Singulair albuterol and Symbicort. Follows with Dr. Valdes. Assessment & Plan (05/20/2024 7:35 PM CDT): Continue per Dr. Valdes. Continue with his Symbicort and albuterol inhalers. Low-dose CT will be scheduled for June 16, 2024. Assessment & Plan (11/24/2023 10:33 AM WARM IN): COPD. Continue per Dr. Hammond his grants manager Continue Symbicort Singulair and albuterol p.r.n. Assessment & Plan (04/08/2023 8:48 PM CDT): Encouraged smoking cessation. Continue per Dr. Hammond pulmonology. He is on albuterol Symbicort and Singulair Assessment & Plan (12/12/2022 9:43 PM CDT): Stop smoking. Continue per Pulmonary. Continue Symbicort Singulair and albuterol. Continue monitoring low-dose CTs as instructed Assessment & Plan (08/15/2022 6:44 PM WARM IN): Stop smoking. Continue current plan per Pulmonary Assessment & Plan (08/01/2021 9:34 PM WARM IN): Continue per Pulmonary Dr. Valdes Assessment & Plan (02/09/2021 8:15 PM CDT): Stop smoking. Continue per Dr. Valdes Assessment & Plan (07/29/2020 7:32 AM WARM IN): Continue per Pulm Assessment & Plan (03/27/2020 8:00 AM CDT): Stop smoking. He declines starting inhalers or referral to Pulmonary Assessment & Plan (09/26/2019 10:27 PM WARM IN): This is a significant, separately identifiable problem [...] order Assessment & Plan (07/29/2020 7:33 AM WARM IN): Needs to repeat ---Dr. Valdes has already ordered Assessment & Plan (03/27/2020 8:00 AM CDT): 06/2019 LDCT Several 2-3mm nodules, probable benign LungRADs 2 --- repeat 06/2020 Assessment & Plan (09/26/2019 10:26 PM WARM IN): 06/2019 LDCT Several 2-3mm nodules, probable benign LungRADs 2 --- repeat 06/2020 Hyperplastic rectal polyp 05/20/2019 Overview (05/20/2019): Colonoscopy 01/29/2012 at [facility]--->2021 Assessment & Plan (05/28/2019 7:33 PM CDT): Recvd colonoscopy and due to repeat in 2021 Hiatal hernia 05/20/2019 Mixed hyperlipidemia 05/20/2019 Assessment & Plan (11/19/2024 11:45 PM WARM IN): Encouraged patient to follow low fat/low chol [...] 80 Assessment & Plan (11/24/2023 10:34 AM WARM IN): Encouraged patient to follow low fat/low chol diet like the Mediterranean diet. Increase good fats in the diet. Increase exercise. Monitor labs as needed. Continue pravastatin 80 Assessment & Plan (08/15/2023 5:03 PM WARM IN): Encouraged patient to follow low fat/low chol [...] Zetia Assessment & Plan (08/01/2021 9:33 PM WARM IN): Encouraged patient to follow fat/low chol diet [...] statin Assessment & Plan (07/29/2020 7:34 AM WARM IN): Encouraged patient to follow fat/low chol diet like the Mediterranean diet. Increase good fats in the diet. Increase exercise. Monitor labs as needed. Assessment & Plan (03/27/2020 8:02 AM CDT): Encouraged patient to continue low fat/low chol diet. Continue exercise. Increase good fats in the diet. Monitor labs as needed. Stable with zetia and pravastatin Assessment & Plan (09/26/2019 7:39 AM WARM IN): Encouraged patient to continue low fat/low chol [...] change Assessment & Plan (08/15/2023 5:03 PM WARM IN): Patient is legally blind. Continue with Ophthalmology Assessment & Plan (04/08/2023 8:47 PM CDT): No change Assessment & Plan (03/27/2020 8:02 AM CDT): No change Assessment & Plan (09/26/2019 7:39 AM WARM IN): No change Assessment & Plan (05/28/2019 7:35 PM CDT): No change Cigarette smoker 05/20/2019 Assessment & Plan (08/11/2023 8:45 AM WARM IN): Encouraged smoking cessation. Discussed 3 minutes. Reviewed options for assistance with cessation. Reviewed correction sequela associated with smoking. Pt declines assistance at this time but may contact the office at anytime for further help as they desire. Assessment & Plan (04/08/2023 8:47 PM CDT): Encouraged smoking cessation. Discussed 3 minutes. Reviewed options for assistance with cessation. Reviewed terminal clerk sequela associated with smoking. Pt declines [...] desire. Assessment & Plan (08/15/2022 6:44 PM WARM IN): Encouraged smoking cessation. Discussed 3 minutes. Reviewed options for assistance with cessation. Reviewed terminal clerk sequela associated with smoking. Pt declines assistance at this time but may contact the office at anytime for further help as they desire. Assessment & Plan (05/09/2022 8:19 PM CDT): Encouraged smoking cessation. Discussed 3 minutes. Reviewed options for assistance with cessation. Reviewed terminal clerk sequela associated with smoking. Pt declines assistance at this time but may contact the office at anytime for further help as they desire. Assessment & Plan (08/01/2021 9:33 PM WARM IN): Encouraged smoking cessation. Discussed 3 minutes. Reviewed [...] help Assessment & Plan (07/29/2020 7:34 AM WARM IN): Encouraged smoking cessation. Discussed 3 minutes. Reviewed [...] desire. Assessment & Plan (09/26/2019 7:39 AM WARM IN): Encouraged smoking cessation. Discussed 3 minutes. Reviewed options for assistance with cessation. Reviewed terminal clerk sequela associated with smoking. Pt declines [...] 05/20/2019 Assessment & Plan (11/19/2024 11:45 PM WARM IN): Pre-diabetes/hyperglycemia is a precursor to Dm. Stressed [...] diabetes. Assessment & Plan (11/24/2023 10:34 AM WARM IN): Pre-diabetes/hyperglycemia is a precursor to Dm. Stressed importance of working on diet (decrease your simple sugars and one carbohydrate with each meal) and increase you exercise to achieve weight loss and this will help prevent you from progressing to diabetes. Assessment & Plan (08/15/2023 5:03 PM WARM IN): Pre-diabetes/hyperglycemia is a precursor to Dm. Stressed [...] diabetes. Assessment & Plan (08/01/2021 9:33 PM WARM IN): Pre-diabetes/hyperglycemia is a precursor to Dm. Stressed [...] diabetes. Assessment & Plan (07/29/2020 7:34 AM WARM IN): Pre-diabetes is a precursor to Dm. Stressed [...] labs Assessment & Plan (09/26/2019 10:27 PM WARM IN): This is a significant, separately identifiable problem [...] 025 Assessment & Plan (11/19/2024 11:45 PM WARM IN): Encouraged healthy lifestyle, good nutrition and exercise. Encouraged Calcium and Vitamin D and weight bearing exercise for bone health. Reviewed immunizations Reviewed age appropirate screenings. BMI 23.0-23.9, adult 06/20/2024 025 Assessment & Plan (10/30/2024 8:57 AM WARM IN): Weight/BMI is in healthy range. Continue healthy [...] 024 Assessment & Plan (11/24/2023 10:35 AM WARM IN): Encouraged healthy lifestyle, good nutrition and exercise. Encouraged Calcium and Vitamin D and weight bearing exercise for bone health. Reviewed immunizations Reviewed age appropirate screenings. Need for influenza vaccination 08/15/2023 11/24/2023 Assessment & Plan (08/15/2023 5:04 PM WARM IN): Flu vaccine updated in the office today BMI 22.0-22.9, adult 07/22/2023 024 Assessment & Plan (08/11/2023 8:12 AM WARM IN): Weight/BMI is in healthy range. Continue healthy [...] 04/03/2023 Assessment & Plan (08/15/2022 6:45 PM WARM IN): Flu updated in the office today BMI [...] test outpatient. Was referred to an outside powder worker. Encouraged to consider seeing a [place] [...] 022 Assessment & Plan (08/01/2021 7:28 AM WARM IN): Weight/BMI is in healthy range. Continue healthy lifestyle to maintain. Medicare annual wellness visit, subsequent 08/01/2021 08/15/2022 Assessment & Plan (08/01/2021 9:34 PM WARM IN): Encouraged healthy lifestyle, good nutrition and exercise. Encouraged Calcium and Vitamin D and weight bearing exercise for bone health. Reviewed immunizations. Reviewed age appropirate screenings. Medicare Wellness Documentation is completed within the chart Fatigue 05/17/2021 05/02/2022 Assessment & Plan (08/01/2021 9:34 PM WARM IN): Probably multifactorial. Check labs and followup to [...] 024 Assessment & Plan (11/24/2023 10:34 AM WARM IN): Weight/BMI is in healthy range. Continue healthy [...] 05/02/2022 Assessment & Plan (07/29/2020 7:34 AM WARM IN): Probably multifactorial. Check labs and followup to re-evaluate Need for immunization against influenza 07/29/2020 11/24/2020 Assessment & Plan (07/29/2020 7:34 AM WARM IN): Updated in office today BMI 22.0-22.9, adult 03/27/2020 024 Assessment & Plan (05/20/2024 7:37 PM CDT): Weight/BMI is in healthy range. Continue healthy lifestyle to maintain. Assessment & Plan (07/29/2020 7:34 AM WARM IN): Weight/BMI is in healthy range. Continue healthy [...] 020 Assessment & Plan (09/26/2019 7:39 AM WARM IN): Weight/BMI is in healthy range. Continue healthy lifestyle to maintain. Annual physical exam 09/26/2019 020 Assessment & Plan (09/26/2019 7:40 AM WARM IN): Encouraged healthy lifestyle, good nutrition and exercise. Encouraged Calcium and Vitamin D and weight bearing exercise for bone health. Reviewed immunizations Reviewed age appropirate screenings. Influenza vaccine refused 09/26/2019 Assessment & Plan (09/26/2019 7:40 AM WARM IN): Encouraged vaccine. Reviewed risks/ benefits. Patient refuses and accepts risks. Esophagitis determined by endoscopy 05/20/2019 05/02/2022 Gastritis 05/20/2019 05/02/2022 Essential (primary) hypertension 05/20/2019 05/20/2024 Assessment & Plan (11/24/2023 10:34 AM WARM IN): Bp is stable/in acceptable range for any co-morbidities. Encouraged to limit sodium intake and exercise for weight control. Continue losartan 50 Assessment & Plan (08/15/2023 5:04 PM WARM IN): Bp is stable/in acceptable range for any co-morbidities. Encouraged to limit sodium intake and exercise for weight control. Continue per Dr. Curtis Assessment & Plan (08/11/2023 8:45 AM WARM IN): Bp is stable/in acceptable range for any [...] losartan Assessment & Plan (08/15/2022 6:44 PM WARM IN): Bp is stable/in acceptable range for any [...] 50 Assessment & Plan (08/01/2021 9:33 PM WARM IN): Bp is stable/in acceptable range for any [...] Losartan/HCTZ Assessment & Plan (07/29/2020 7:33 AM WARM IN): Bp is stable/in acceptable range for any co-morbidities. Encouraged to limit sodium intake and exercise for weight control. Losartan and HCTZ Assessment & Plan (03/27/2020 8:00 AM CDT): Bp is stable/in acceptable range for any co-morbidities. Encouraged to limit sodium intake and exercise for weight control. Continue losartan/HCTZ Assessment & Plan (09/26/2019 7:38 AM WARM IN): Bp is stable/in acceptable range for any [...] 01/21/2022 Assessment & Plan (08/01/2021 9:34 PM WARM IN): Persistent hiccups. Has consulted with multiple providers [...] omeprazole Assessment & Plan (07/29/2020 7:32 AM WARM IN): Continue per ENT/Pulm. He is responding to BID omeprazole. Will monitor Assessment & Plan (03/27/2020 7:59 AM CDT): Dr. Stokes started him on Pantoprazole. He hasn't noted much difference. Needs to followup to complete workup. Encouraged patient to call and make appointment. Assessment & Plan (09/26/2019 10:26 PM WARM IN): This is a significant, separately identifiable problem that was evaluated and managed on the same day as the wellness exam Less frequent than in the past. Continue the PPI and monitor Rx sent to pharmacy. Assessment & Plan (08/24/2019 9:04 AM WARM IN): Improving with the PPI. Continue PPI and [...] 2018 Assessment & Plan (08/24/2019 9:04 AM WARM IN): Encouraged vaccine. Reviewed risks/ benefits. Patient refuses [...] Care Team Description 07/31/2025 [facility] Outreach [address] [address] Roxana Fernandez MA 07/31/2025 [facility] IP Outreach [address] [address] Roxana Fernandez MA 07/31/[address] [place] [phone] Nuris Berger PA 06/26/2025 9:30 AM CDT Office Visit [address] [place] [phone] Nuris Berger PA Hyponatremia (Primary Dx); Psychogenic polydipsia; Chronic hiccups; BMI 23.0-23.9, adult; Generalized body aches; Legally blind; Flu vaccine need 06/21/[address] [place] [phone] Nuris Berger PA 06/20/2025 [facility] Outreach [address] [address] [address] [place] 06/19/2025 [facility] Outreach [address] [address] [address] [place] 06/18/2025 [facility] Outreach [address] [address] [address] [place] 06/01/[address] [place] [phone] Nuris Berger PA 05/30/2025 [facility] IP Outreach [facility] Accountable Care Organization [address] [place] [address] Hilton James LPN 05/29/2025 Orders Only [facility] Health Information Management [address] [place] [address] Scanning, Provider from Last 3 Months Immunizations [...] Name Comments Blindness Father Heart attack Father [place] Heart disease Father No Known Problems Mother [...] Recorded In the past 12 months has [employer], gas, oil, or water [employer] threatened to shut off services in your [...] often do you attend chur ch or taoist services? Patient declined 12/03/2023 Do you belong to any clubs o r organizations such as hinduism groups, unions, fraternal or athletic groups, or [...] on file Legal Sex Male 12:22 AM WARM IN Gender Identity Not on file Sexual Orientation [...] Read Routine (OP Routine) 10/03/2024 9:25 AM WARM IN Pulmonary nodules HEPATITIS PANEL, ACUTE Routine 05/03/2022 [...] compared to the equimolar-standardized total PSA (Maged Roy). Comparison of serial PSA results should be [...] ROBLES LAB BLOOD ORDERABLES Final Result [facility] [address] [place] [address] * CT Chest WO Contrast F/U Lung Screen Protocol (10/03/2024 9:25 AM WARM IN) Anatomical Region Laterality Modality Chest N/A Computed Tomogra phy 10/03/2024 7:11 PM WARM IN Narrative 10/03/2024 7:17 PM WARM IN EXAM DESCRIPTION: CT CHEST WO CONTRAST F/U [...] Estuardo Ortiz M.D. KT T: Report ID: [id number] Reading Location: [id number] Tasia Hoffman MD IMG CT PROCEDURES Final Resul t * Hepatitis panel, acute (05/03/2022 5:40 AM CDT) Hep A IgM Nonreactive Nonreactive [facility] Comment: Interpretive Data: If Hep A IgM Ab is reported as Equivocal, a new sample should be drawn in two weeks for testing. Current interpretive data was last revised on 19. Hep B core IgM Nonreactive Nonreactive [facility] Comment: Interpretive Data If HepB Core IgM Ab is reported as Equivocal, a new sample should be drawn in two weeks for testing. Current interpretive data was last revised on 19. Hep C Ab Nonreactive Nonreactive [facility] Comment: Interpretive Data Nonreactive: Antibodies to [...] last revised on 2019. HepBsAg Nonreactive Nonreactive [facility] Blood 05/03/2022 5:40 AM CDT 05/03/2022 6:36 AM CDT Pamela Gongora DO LAB MICROBIOLOGY - GENERAL OR DERABLES Final Result [facility] [address] [facility] Department [place] [address] * (ABNORMAL) HM COLONOSCOPY (07/14/2021) Jame Mg MD HEALTH MAINTENANCE Edited Result - Final from Last 3 Months or Most Recently Relevant to Health Maintenance Insurance MEDICARE [facility] MEDICARE [facility] [address] [id number] AET MEDICARE [facility] Advance Directives For more information, please contact: [phone] * Full Code (Latest Code Status on [...] 10:34 PM 11/16/2022 9:56 PM Care Teams Tissue Recovery Technician Relationship Specialty Start Date End Date Nuris Berger PA [address] [facility] [address] [place] [address] PCP - General Internal Medicine 12/28/18 Jonatan Stokes MD [address] DE[place] [address] Consulting Physician Otolaryngology 03/27/20 Irma Bajwa MD [address] [facility] [place] [address] Consulting Physician Neurology 05/07/22
--- OUTSIDE RECORDS SUMMARY | 2025-08-27 20:24 | XMS_ITS | Encounter Summary ---
Author Organization [facility] Healthcare Address [address] [place] [address] Care Team Providers Care Systems Eng Name Role Phone Nuris Berger Primary Care Provider [phone] Jonatan Stokes MD Unavailable [phone] Irma Bajwa MD Unavailable [phone] [place] Unavailable Unavailable Roxana Fernandez MA Unavailable [phone] Encounter Details Date Type Department Care Team (Late st Contact Info) Description 05/29/[address] [facility] Health Information Management [address] [place] [phone] Scanning, Provider Social History Tobacco Use Types Packs/Day Years Used Date Smoking Tobacco: Former Cigarettes 0.8 40 0 09/1981 - 09/2021 Smokeless Tobacco: Never Alcohol Use Standard Drinks/Week Comments Yes 2 (1 standard drink = 0.6 oz pur e alcohol) social [facility] Utilities Answer Date Recorded In the past 12 months has [employer], gas, oil, or water company threatened [...] often do you attend [facility] or mu-ism services? 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 [address] Consulting Physician Neurology 05/07/22 Brooke Plaza MA [address] [facility] [address] [place] [address] [employer] Forms Builder 06/18/25 06/19/25 Roxana Fernandez MA [address] [place] [address] [employer] Care Forms Builder 07/31/25 07/31/25 documented as of this encounter
--- OUTSIDE RECORDS SUMMARY | 2025-08-27 20:24 | XMS_ITS | Encounter Summary ---
Author Organization [facility] Healthcare Address [address] [place] [address] Care Team Providers Care Bell Tier Name Role Phone Nuris Berger Primary Care Provider [phone] Jonatan Stokes MD Unavailable [phone] Irma Bajwa MD Unavailable [phone] Ayla Dugan LPN Unavailable [phone] MA Unavailable Unavailable Roxana Fernandez MA Unavailable [phone] Encounter Details Date Type Department Care Team (Late st Contact Info) Description 03/26/2025 Orders Only [facility] Health Information Management [address] [place] [id number] Scanning, Provider Social History Tobacco Use Types Packs/Day Years Used Date Smoking Tobacco: Former Cigarettes 0.8 40 0 09/1981 - 09/2021 Smokeless Tobacco: Never Alcohol Use Standard Drinks/Week Comments Yes 0 (1 standard drink = 0.6 oz pur e alcohol) social [facility] Utilities Answer Date Recorded In the past 12 months has [employer] electric, gas, oil, or water company threatened [...] often do you attend chur ch or denominational services? 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 Gender Identity Not on file Sexual Orientation [...] on filedocumented in this encounter Care Teams Bell Tier Relationship Specialty Start Date End Date Nuris Berger PA [address] [facility] [address] [place] [address] PCP - General Internal Medicine 12/28/18 Jonatan Stokes MD [address] [place] [address] Consulting Physician Otolaryngology 03/27/20 Irma Bajwa MD [address] [place] [address] Consulting Physician Neurology 05/07/22 Ayla Dugan LPN [address] [place] [address] [address] [place] [address] Gatehouse Attendant 03/30/25 03/30/25 Brooke Plaza MA [address] [facility] [address] [place] [address] ACO Care Analyst Business Analysis 06/18/25 06/19/25 Roxana Fernandez MA [address] [place] [address] ACO Care Analyst Business Analysis 07/31/25 07/31/25 documented as of this encounter
--- OUTSIDE RECORDS SUMMARY | 2025-08-27 20:24 | XMS_ITS | Clinical Summary ---
Author Organization [facility] Address [address] [place] [address] Care Team Providers Care Doorkeeper Name Role Phone Nuris Berger PA-C Primary Care Provider [phone] Source Comments [facility],non-owned Affiliates and Associated Physician Practices is amultiple site organization consisting of ambulatory clinics and hospital sitesin [place], [place], [place] and [place]. This disclosure is being madepursuant to the Care Everywhere program and may not contain all information available regarding this patient. Last updated 18.[facility] Allergies Active Allergy Reactions Criticality Noted Date [...] tablet 06/17/2023 Active ergocalciferol (Drisdol) 1.25 MG (00982 UT) capsule Take 1 (one) capsule by [...] 11 07/21/2024 Active trimethoprim-po lymyxin B (Polytrim) 21669-6.1 UNIT/ML-% ophthalmic solution Instill 1 (one) drop [...] options for assistance with cessation. Reviewed long chain beamer sequela associated with smoking. Pt declines assistance [...] polyp 05/20/2019 Overview (12/24/2020): Colonoscopy 01/29/2012 at [facility]--->2021 Last Assessment & Plan: Recvd colonoscopy [...] Department Care Team Description 08/07/2025 9:15 AM FIRE EXTINGUISHER INSTALLER Clinical Support [facility] Op[facility]mology [address] [place] [phone] Tyrel Velez MD 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 (Primary Dx) 08/07/2025 8:45 AM FIRE EXTINGUISHER INSTALLER Clinical Support [facility] - Ophthalmology [address] [place] [phone] Tyrel Velez MD 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 (Primary Dx) 08/07/2025 8:40 AM FIRE EXTINGUISHER INSTALLER Office Visit [facility] - Ophthalmology [address] [place] [phone] Tyrel Velez MD 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 (Primary Dx) 08/07/2025 Travel from Last 3 Months Immunizations Immunization Administration Dates Next Due [employer] primary monoval ent 12+ yr 0.3mL Purple [...] Comments Blood Pressure 128/70 08/26/2023 12:43 PM FIRE EXTINGUISHER INSTALLER Pulse 65 08/26/2023 12:43 PM FIRE EXTINGUISHER INSTALLER Temperature 35.9 C (96.7 F) 08/26/2023 12:34 PM FIRE EXTINGUISHER INSTALLER Respiratory Rate 14 08/26/2023 12:43 PM FIRE EXTINGUISHER INSTALLER Oxygen Saturation 98% 08/26/2023 12:34 PM FIRE EXTINGUISHER INSTALLER Inhaled Oxygen Concentration - - Weight 64.9 kg (143 lb) 08/26/2023 9:01 AM FIRE EXTINGUISHER INSTALLER Height 172.7 cm (5' 8) 08/26/2023 9:01 AM FIRE EXTINGUISHER INSTALLER Body Mass Index 21.74 08/26/2023 9:01 AM FIRE EXTINGUISHER INSTALLER Plan of Treatment Upcoming Encounters Date Type Department Care Team (Late st Contact Info) Description 10/17/2025 9:00 AM FIRE EXTINGUISHER INSTALLER Office Visit [facility] - Ophthalmology [address] [place] [phone] Louis Hansen MD [address] [place] [address] [place] [phone] 04/16/2026 9:00 AM CDT Office Visit [facility] - Ophthalmology [address] [place] [phone] Tyrel Velez MD [address] [place] [phone] Health Maintenance Due Date Last Done Comments [...] CALENDAR YEAR 2024 COVID-19 VACCINE (3 - season) 2025 02/09/2021, 01/05/2021 LUNG CANCER SCREENING [...] this topic Medical Devices Implanted Type Area Health Editor Device Identifier Shelf Expiration Date Model / Serial / Lot Drain Glcm Thk.9mm Blnt Tpr [facility] Fl - [id number] Implanted:Qty: 1 on 05/04/2018 by Tyrel Velez MD at [facility] Left: Eye [employer] 03/15/2020 FP7 / [id number] / [id number] Graft Tissue Ttplst Sclr .8x.5cm Lopro - [id number] Implanted:Qty: 1 on 05/04/2018 by Tyrel Velez MD at [facility] Left: Eye [employer] 01/17/2023 [id number] / [id number] / [id number] Impl Opth 250sq Mm Brvldt Magaly 1 Qdrnt - [id number] Implanted:Qty: 1 on 06/16/2023 by Tyrel Velez MD at [facility] Left: Eye [employer] 01/09/2024 [id number] / [id number] / Graft Tissue Ttpl Ioptch Sclr .8x.5cm - [id number] Implanted:Qty: 1 on 06/16/2023 by Tyrel Velez MD at [facility] Left: Eye [employer] 09/19/2027 [id number] / [id number] / Graft Tissue Ttpl Ioptch Sclr .8x.5cm - [id number] Implanted:Qty: 1 on 06/16/2023 by Tyrel Velez MD at [facility] Left: Eye [employer] 09/19/2027 [id number] / [id number] / J Luis Cornea - [id number] Implanted:Qty: 1 on 08/26/2023 by Louis Hansen MD at [facility] Left: Eye [employer] 09/05/2023 [id number] / [id number] / [id number] Description:Product Numb:[id number] EXP:09-05-2023 DIN:[id number] Insurance AETNA MEDICARE ADV AETNA [facility] Care Address: [facility] [id number] [place] [address] Advance Directives * Full Code (Latest Code Status on File) Date Activated Date Inactivated Comments 05/04/2018 11:35 AM 05/04/2018 1:21 PM * Full Code Date Activated Date Inactivated Comments 05/04/2018 7:43 AM 05/04/2018 11:35 AM Care Teams Doorkeeper Relationship Specialty Start Date End Date Nuris Berger PA-C PCP - General 02/13/20
--- OUTSIDE RECORDS SUMMARY | 2025-08-27 20:25 | XMS_ITS | Encounter Summary ---
Author Organization [facility] Healthcare Address [address] [place] [address] Care Team Providers Care Rat Poisoner Name Role Phone Nuris Berger Primary Care Provider [phone] Jonatan Stokes MD Unavailable [phone] Irma Bajwa MD Unavailable [phone] Ayla Dugan LPN Unavailable [phone] MA Unavailable Unavailable Roxana Fernandez MA Unavailable [phone] Encounter Details Date Type Department Care Team (Late st Contact Info) Description 12/26/2024 Orders Only [facility] Health Information Management [address] [place] [phone] Scanning, Provider Social History Tobacco Use Types Packs/Day Years Used Date Smoking Tobacco: Former Cigarettes 0.8 40 0 09/1981 - 09/2021 Smokeless Tobacco: Never Alcohol Use Standard Drinks/Week Comments Yes 0 (1 standard drink = 0.6 oz pur e alcohol) social [facility] Utilities Answer Date Recorded In the past 12 months has [employer] electric, gas, oil, or water company threatened [...] on file Legal 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 Gender Identity Not on file Sexual Orientation [...] on filedocumented in this encounter Care Teams Rat Poisoner Relationship Specialty Start Date End Date Nuris Berger PA [address] [facility] [address] [place] [address] PCP - General Internal Medicine 12/28/18 Jonatan Stokes MD [address] [place] [address] Consulting Physician Otolaryngology 03/27/20 Irma Bajwa MD [address] [place] [address] Consulting Physician Neurology 05/07/22 Ayla Dugan LPN [address] [place] [address] [address] [place] [address] Consulting Marine Engineer 03/30/25 03/30/25 Brooke Plaza MA [address] [facility] [facility] [address] [place] [address] ACO Care Interlocker 06/18/25 06/19/25 Roxana Fernandez MA [address] [place] [address] ACO Care Interlocker 07/31/25 07/31/25 documented as of this encounter
[2025-08-27] MEDS: ACETAMINOPHEN 500 MG TABLET 1000 MG PO (21:13)
[2025-08-27 21:35] VITALS: BP 134/85; PULSE 88; RESP 18; O2SAT 100
== END 2025-08-27 21:38 | disposition home or self-care (01) ==
PROVIDERS: Emergency Medicine; Emergency Provider Emergency Medicine; PCP Physician Assistant
DX: R10.9 Unspecified abdominal pain (principal); K59.00 Constipation, unspecified; R06.6 Hiccough; J44.89 Other specified chronic obstructive pulmonary disease; I10 Essential (primary) hypertension; E78.5 Hyperlipidemia, unspecified
CPT/HCPCS: 36415; 71046; 74177; 80053; 81003; 83605; 83690; 85025; 93005; 96360; 99284; A9270; J7030; Q9967

== ENCOUNTER 2025-08-29 19:13 | Inpatient (IN) | payer MEDICARE, SELFPAY ==
--- NOTE | ~2025-08-29 | CT_ITS ---
EXAMINATION: CTA chest PE abdomen pel DATE: 08/29/2025 20:53 INDICATION: Shortness of breath Cough. TECHNIQUE: Computed tomography angiography (CTA) of the chest was performed with 100 mL Omnipaque-350 intravenous contrast timed to evaluate the pulmonary arteries. Coronal maximum intensity projection 3D-reconstructions were created by the technologist. Computed tomography (CT) of the abdomen and pelvis was performed with intravenous contrast. Automated exposure control and iterative reconstruction technique were employed. The dose-length product was 900.43 mGy-cm. COMPARISON: Chest x-ray dated 08/27/2025. CT abdomen pelvis dated 08/27/2025 FINDINGS: CTA chest: No focal infiltrates are atelectasis in the lung cardenas. No evidence of pulmonary emboli to the extent visualized. Visualization is limited by motion artifacts. Significant, circumferential wall thickening of the distal esophagus is noted in the lower mediastinum with thickness measuring up to 28 mm. Proximal esophagus is dilated fluid level suggesting esophageal obstruction. Findings are quite concerning for neoplasm of the distal esophagus causing obstruction. CT abdomen and pelvis: Visualization of the upper abdominal structures are limited by motion artifacts. No definite focal lesions of the liver. Pancreas and kidneys do not show acute findings. Multiple cysts of the kidneys. No retroperitoneal adenopathy. No bowel obstruction. IMPRESSION: 1. No significant acute pulmonary findings. Minimal platelike atelectasis of left lung base. 2. No angiographic evidence of pulmonary embolus. Thoracic aorta shows no acute findings. 3. Significant irregular circumferential wall thickening of the distal esophagus with evidence of obstruction of the distal esophagus. Hiatus hernia. 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 Correlation with upper endoscopy is recommended. 4. No definite acute findings in the upper abdomen and pelvis. Suboptimal visualization due to multiple artifacts. Reviewed, dictated and finalized at location [facility]. [employer] [facility] IMPRESSION: 1. No significant acute pulmonary findings. Minimal platelike atelectasis of le ft lung base. 2. No angiographic evidence of pulmonary embolus. Thoracic aorta shows no acute findings. 3. Significant irregular circumferential wall thickening of the distal esophagu s with evidence of obstruction of the distal esophagus. Hiatus hernia. Suspecte d neoplasm of the esophagus. Correlation with upper endoscopy is recommended. 4. No definite acute findings in the upper abdomen and pelvis. Suboptimal visua lization due to multiple artifacts.
--- NOTE | ~2025-08-29 | CT_ITS ---
EXAMINATION: CT brain wo con DATE: 08/29/2025 20:51 INDICATION: Transient disorientation. TECHNIQUE: Computed tomography (CT) of the head was performed without intravenous contrast. The mA was adjusted according to patient size. Iterative reconstruction technique was employed. The dose-length product was 1049.11 mGy-cm. COMPARISON: CT head dated 06/02/2025. FINDINGS: Some of the images are compromised quality due to motion artifacts. No acute intracranial bleed. No extra-axial collections are seen. No ventriculomegaly or midline shift. No acute bone changes. IMPRESSION: 1. No acute findings in the limited noncontrast CT head. Reviewed, dictated and finalized at location T. HOLOGY PHYSICIAN
[2025-08-29 19:14] VITALS: BP 144/56; PULSE 100; RESP 18; TEMP 37.1; O2SAT 99
--- NOTE | 2025-08-29 19:31 | ECG_ITS ---
Test Date: 2025-08-29 19:56:06 Measurements Intervals [place] Rate: 93 P: 41 VT: 137 QRS: 38 QRSD: 84 T: 69 QT: 346 QTc: 432 Interpretive Statements SINUS RHYTHM POSSIBLE LEFT ATRIAL ENLARGEMENT EARLY PRECORDIAL R/S TRANSITION MINIMAL Q WAVES- ANTEROLATERAL LEADS BASELINE ARTIFACT- I, II, AVR, AVL, AVF BORDERLINE ECG Compared to ECG 08/27/2025 18:17:45 No significant changes Electronically Signed On 08-29-2025 20:05:21 LUMBER SORTER MACHINE by Mika Lopez D.O.
--- NOTE | 2025-08-29 19:34 | ED.GENADULT ---
HPI - General Adult General Chief complaint: Dizziness Stated complaint: Lightheaded/Dizzy Time Seen by Provider: 08/29/25 19:22 Source: patient and family Mode of arrival: ambulatory Limitations: no limitations History of Present Illness HPI narrative: Patient is a 64-year-old male presents to the emergency department accompanied by daughter complaining of hiccups, inability keep anything down by mouth, lightheadedness. Patient notes he has been unable to keep anything down today. Does admit to a slight cough productive of sputum, unsure as to what the color the sputum is. Admits to some slight shortness of breath associated. Daughter notes that the patient seems slightly disoriented today when he tried to go into the home at the back door or use use the front door. Patient is alert and oriented x3. Patient denies any abdominal pain. Patient notes his last bowel movement was yesterday and was a large bowel movement. Does admit to some slight abdominal distention. Patient denies any chest pain. Patient denies any focal weakness or numbness. Patient is blind. Admits to a history of hiccups, is on medications for this. Denies any known fevers.Patient has an extensive history of hiccups. Has a history of hyponatremia. Related Data Home Medications ?Medication ?Instructions ?Recorded ?Confirmed ?Last Taken ?Type losartan 50 mg tablet 50 mg PO DAILY 03/02/21 08/10/25 07/26/25 History montelukast 10 mg tablet 10 mg PO HS 03/02/21 08/10/25 07/25/25 History pravastatin 80 mg tablet 80 mg PO DAILY 03/02/21 08/10/25 07/26/25 History cholecalciferol (vitamin D3) 25 25 mcg PO DAILY 03/29/21 08/10/25 07/26/25 History mcg (1,000 unit) capsule (Vitamin D3) cyanocobalamin (vitamin B-12) 100 2,000 mcg PO DAILY 03/29/21 08/10/25 07/26/25 History mcg tablet dorzolamide 22.3 mg-timolol 6.8 1 drp LEFT EYE TID 06/29/24 08/10/25 07/26/25 History mg/mL eye drops budesonide-formoterol HFA 80 2 puff inhalation Q12H 12/26/24 08/10/25 07/25/25 History mcg-4.5 mcg/actuation aerosol inhaler gabapentin 300 mg capsule 300 mg PO DAILY 12/26/24 08/10/25 07/26/25 History aspirin 81 mg tablet,delayed 81 mg PO DAILY 03/25/25 08/10/25 07/26/25 History release (Adult Aspirin Regimen) baclofen 5 mg tablet 5 mg PO BID 04/24/25 08/10/25 06/19/25 History Allergies Allergy/AdvReac Type Severity Reaction Status Date / Time No Known Allergies Allergy Verified 08/10/25 08:49 Review of Systems Review of Systems: A 10 system review of systems was completed on the patient and is negative except for what is stated in the HPI. Nursing and ancillary documentation was reviewed. [facility] Past Medical History Medical History Hearing loss Impacted cerumen, left ear Asthma-COPD overlap syndrome Wears hearing aid in both ears Adenomatous colon polyp Hiatal hernia Other osteonecrosis, left femur Other osteonecrosis, right femur Psychogenic polydipsia Erosive esophagitis Anemia of chronic disease Chronic hiccups Hyponatremia Tobacco abuse Normocytic anemia Glaucoma Legally blind. Hyperlipidemia Hypertension Surgical History Surgical History History of enucleation of eye Right, secondary to recurrent infection. Family History Family History Grandparent Acute myocardial infarction Mother Acute myocardial infarction Skin cancer Father Acute myocardial infarction Sibling Cancer Social History Social History Social History: Surrogate decision maker: Svitlana Hines, . Code status: Full code. Smoking packs per day: 1.5 Smoking cigarettes per day: 30.0 Years smoked: 50 Smoking pack-years: 75.00 Smoking status: Former smoker Tobacco type: cigarettes Second hand tobacco smoke exposure: No Smoking end date: 05/21/20 Alcohol intake: former Substance use: never Substance use type: does not use Lack of Transportation: No Lack of Food: Never True Current Housing: I Have Housing Concerned About Future Housing: No Difficulty Paying Gas/Electric Bills: No Difficulty Paying for Meds: No Currently Unemployed: No Education: High School Diploma/GED Difficulty w/ Childcare or Family Care: No Living arrangements: with family Additional living arrangements comments: The patient lives with his of 43 years in [place]. He and his had 4 children 1 of which at . His remaining children are healthy. 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 Spiritual care concerns: No Exam Narrative: CONST: No acute distress. Hiccups present HENMT: Head is normocephalic and atraumatic. Moist mucous membranes. No posterior oropharynx erythema. NECK: No meningeal signs. RESP: Able to speak in full sentences. Normal respiratory effort. Rhonchorous breath sounds diffusely. CARDIO: Regular rate. [Regular] rhythm. 2+ DP and radial pulses bilaterally. GI: Nondistended. No tenderness to palpation. Soft. : No CVA tenderness to palpation. SKIN: No rashes or lesions noted on exposed skin. NEURO: Oriented x3. Moves all extremities. EXTREM/MSK/BACK: No pedal edema. PSYCH: Normal affect. Course Vital Signs Vital signs: Vital Signs Temperature 98.7 F 08/29/25 19:14 Pulse Rate 100 08/29/25 19:14 Respiratory Rate 18 08/29/25 19:14 Blood Pressure 144/56 H 08/29/25 19:14 Pulse Oximetry 99 08/29/25 19:14 Oxygen Delivery Room Air 08/29/25 19:14 Temperature 98.7 F 08/29/25 19:14 Pulse Rate 100 08/29/25 19:14 Respiratory Rate 18 08/29/25 19:14 Blood Pressure 144/56 H 08/29/25 19:14 Pulse Oximetry 99 08/29/25 19:14 Oxygen Delivery Room Air 08/29/25 19:14 [facility] Narrative Medical decision making narrative: Patient presents with the above complaint. Initial vitals are remarkable for no significant abnormalities. Physical examination as noted above. Plan discussed: laboratory analysis, EKG, imaging. Patient ordered Reglan, Protonix., continuous cardiac monitoring, continuous pulse oximetry. Patient stood up and urinated with urine appearing very clear. Review of medical record shows the patient has a history of chronic hyponatremia secondary to psychogenic polydipsia. Patient reports drinking a lot of fluids but is unable to keep anything down today. Patient has chronic hiccups that he tries to treat with copious amounts of oral intake of water. Patient takes Thorazine at home for the cups. Patient has presented numerous times this same complaints. I spoke with the hospitalist on-call who notes to place the patient on 75 cc an hour of normal saline, admit to med tele, consult Gastroenterology. I spoke to Gastroenterology on-call who will see the patient in consultation. Differential Diagnosis Differential Diagnosis: Chronic hiccups, psychogenic polydipsia, metabolic derangement, electrolyte derangement, bowel obstruction, constipation, pneumonia, UTI, gastroparesis. Medical Records I have reviewed the following patient records and this information was taken into consideration when formulating the assessment and plan.: previous labs and previous ER visits Lab Data MDM Lab Attestation statement: I personally reviewed the patient's lab results. Lab results narrative: CBC reveals a white blood cell count 11.3, hemoglobin of 8.7. Comprehensive metabolic panel reveals a sodium 116, chloride of 86, bicarb 21, glucose 123. BNP is 967. Lipase 62. TSH is 1.15. Troponins less than 0.012. Total creatine kinase is 112. Magnesium is 1.7. Urinalysis is without any significant abnormalities. COVID and influenza and RSV testing are negative. Ethyl alcohol level is less than 10. UDS is negative. Coags reveal an APTT of 36.9. Phosphorus is 3.2. 08/29/25 19:50 08/29/25 19:50 Labs: Lab Results 08/29/25 08/29/25 08/29/25 Range/Units 19:46 19:49 19:50 WBC 11.3 H (4.5-10.0) K/mm3 RBC 3.01 L (4.6-6.20) M/mm3 Hgb 8.7 L (14.0-18.0) g/dL Hct 25.4 L (42.0-52.0) % MCV 84.4 D (80-100) fl MCH 28.9 (26-34) pg MCHC 34.3 (32-36) g/dl RDW 13.8 (11.5-14.5) % Plt Count 221 (150-375) k/mm3 MPV 10.9 H (7.4-10.4) fl Immature Gran % (Auto) 0.4 (0-0.5) % Neut % (Auto) 87.2 H (45.5-73.1) % Lymph % (Auto) 6.8 L (18.3-44.2) % [place] % (Auto) 5.0 (2.6-8.5) % Eos % (Auto) 0.3 (0-4.4) % Baso % (Auto) 0.3 (0.2-1.2) % Lymph # (Auto) 0.77 L (0.9-3.2) K/mm3 [place] # (Auto) 0.6 (0.1-0.6) K/mm3 Eos # (Auto) 0.0 (0-0.3) K/mm3 Baso # (Auto) 0.0 (0.0-0.1) K/mm3 Abs Immat Gran (auto) 0.04 H (0.00-0.031) K/mm3 Absolute Neuts (auto) 9.9 H (1.3-6.7) K/mm3 Absolute Nucleated RBC 0.000 (0.0-0.012) K/mm3 Nucleated RBC % 0.0 (0.0-0.2) % PT 13.2 (11.1-14.7) Seconds INR 1.0 APTT 36.9 H (22.3-36.8) Seconds Sodium 116 L* (137-145) mmol/L Potassium 4.3 (3.4-5.0) mmol/L Chloride 86 L (98-107) mmol/L Carbon Dioxide 21 L (22-30) mmol/L Anion Gap 9 (4-12) mmol/L BUN 6 L D (9-20) mg/dL Creatinine 0.76 (0.7-1.3) mg/dL Estim Creat Clear Calc 81 ml/min Estimated GFR > 60 (59 - ) Glucose 123 H (65-110) mg/dL Serum Osmolality Pending Calcium 9.4 (8.4-10.2) mg/dL Phosphorus Cancelled 3.2 Magnesium 1.7 (1.6-2.3) mg/dL Total Bilirubin 0.5 (0.2-1.3) mg/dL AST 24 (17-59) U/L ALT 11 (6-50) U/L Alkaline Phosphatase 62 (38-126) U/L Total Creatine Kinase Cancelled 112 Troponin I Pending < 0.012 NT-Pro-B Natriuret Pep 967 H (19.9-100) pg/mL Total Protein 7.1 (6.3-8.2) g/dL Albumin 4.0 (3.5-5.1) g/dL Lipase 62 (23-300) U/L TSH (Reflex) 1.150 (0.465-4.68) uIU/mL Urine Color Yellow (Yellow) Urine Appearance Clear (Clear) Urine pH 7.0 (5.0-9.0) Ur Specific [place] 1.001 (1.001-1.035) Urine Protein Negative (Negative) mg/dL Urine Glucose (UA) Negative (Negative) mg/dL Urine Ketones Negative (Negative) mg/dL Ur Blood (Man) Negative (Negative) Urine Nitrate Negative (Negative) Urine Bilirubin Negative (Negative) Urine Urobilinogen 0.2 (<2.0) mg/dL Leukocyte Esterase Rfl Negative (Negative) BENTLEY/UL Urine Opiates Screen Negative (Negative) Urine Methadone Screen Negative (Negative) Ur Barbiturates Screen Negative (Negative) Ur Phencyclidine Scrn Negative (Negative) Ur Amphetamine Screen Negative (Negative) U Benzodiazepines Scrn Negative (Negative) Urine Cocaine Screen Negative (Negative) U Cannabinoids Screen Negative (Negative) Ethyl Alcohol < 10 (<10) mg/dL Influenza A (RT-PCR) Negative (Negative) Influenza B (RT-PCR) Negative (Negative) RSV (RT-PCR) Negative (Negative) SARS-CoV-2 RNA (RT-PCR) Negative (Negative) Imaging Data Radiologist's impression: ITS Impressions Head CT 08/29/25 20:53 IMPRESSION: 1. No acute findings in the limited noncontrast CT head. Chest/Abdomen/Pelvis CTA 08/29/25 20:55 IMPRESSION: 1. No significant acute pulmonary findings. Minimal platelike atelectasis of left lung base. 2. No angiographic evidence of pulmonary embolus. Thoracic aorta shows no acute findings. 3. Significant irregular circumferential wall thickening of the distal esophagus with evidence of obstruction of the distal esophagus. Hiatus hernia. 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 Correlation with upper endoscopy is recommended. 4. No definite acute findings in the upper abdomen and pelvis. Suboptimal visualization due to multiple artifacts. ECG Data EKG #1: Attestation: I personally reviewed and interpreted this ECG as follows: ECG completion date: 08/29/25 ECG completion time: 19:56 Interpretation: Rate of 93, rhythm is sinus rhythm, baseline artifact present, no overt ST elevation or depressions, no overt T-wave abnormalities. When compared to old EKG on August 27, 2025 there is no significant changes. Discharge Plan Discharge Clinical Impression: Hyponatremia, Hiccup, Psychogenic polydipsia, Esophageal thickening, Esophageal obstruction Patient Disposition: Still a Patient Condition: Guarded Prognosis Patient Language: Welsh Prescriptions: No Action baclofen 5 mg tablet 5 mg PO BID losartan 50 mg tablet 50 mg PO DAILY pravastatin 80 mg tablet 80 mg PO DAILY montelukast 10 mg tablet 10 mg PO HS albuterol sulfate 90 mcg/actuation HFA aerosol inhaler 1 inh inhalation QID PRN (Reason: shortness of breath or wheezing) Qty: 8.5 0RF dorzolamide-timolol 22.3-6.8 mg/mL drops 1 drp LEFT EYE TID gabapentin 300 mg capsule 300 mg PO DAILY budesonide-formoterol 80-4.5 mcg/actuation HFA aerosol inhaler 2 puff INHALATION Q12H famotidine 20 mg Tablet 20 mg PO Q12HR Qty: 60 0RF metoclopramide HCl [Reglan] 10 mg tablet 10 mg PO Q6H PRN (Reason: nausea and vomiting) Qty: 14 0RF chlorpromazine 25 mg tablet 25 mg PO Q6H PRN (Reason: hiccups) Qty: 14 0RF cyanocobalamin (vitamin B-12) 100 mcg Tablet 2,000 mcg PO DAILY cholecalciferol (vitamin D3) [Vitamin D3] 25 mcg (1,000 unit) Capsule 25 mcg PO DAILY chlorpromazine 25 mg Tablet 25 mg PO Q6H PRN (Reason: Hiccups) Qty: 30 0RF aspirin [Adult Aspirin Regimen] 81 mg tablet,delayed release (DR/EC) 81 mg PO DAILY chlorpromazine 25 mg Tablet 25 mg PO Q6H PRN (Reason: Hiccups) Qty: 60 0RF Follow-up/Referrals: Celine,TRAVIS Lawler [Primary Care Provider, Unknown] Time of Disposition: 21:29
[2025-08-29] MEDS: PANTOPRAZOLE SODIUM IV 40 MG VIAL IV PUSH (19:58)
[2025-08-29] MEDS: METOCLOPRAMIDE HCL INJ 10 MG/2 ML VIAL IV PUSH (19:58)
[2025-08-29 20:04] LABS: Hematocrit 25.4 % (42.0-52.0); Hemoglobin 8.7 g/dL (14.0-18.0); Immature Granulocyte Percent A 0.4 % (0-0.5); Lymphocytes Absolute Auto 0.77 K/mm3 (0.9-3.2); Mean Corpuscular HGB Conc 34.3 g/dl (32-36); Mean Corpuscular Hemoglobin 28.9 pg (26-34); Mean Corpuscular Volume 84.4 fl (80-100); Nucleated Red Blood Cells Absolute Auto 0.000 K/mm3 (0.0-0.012); Nucleated Red Blood Cells Perc 0.0 % (0.0-0.2); Platelet Count Result 221 k/mm3 (150-375); Red Blood Count 3.01 M/mm3 (4.6-6.20); White Blood Count 11.3 K/mm3 (4.5-10.0)
[2025-08-29 20:04] LABS: Add Urine Microscopic? NO; Appearance Urine Clear (Clear); Glucose Urine UA Negative (Negative); Leukocyte Esterase Ur Negative LEU/UL (Negative); Nitrate Urine Negative (Negative); Specific Grav Ur 1.001 (1.001-1.035)
[2025-08-29 20:15] LABS: INR 1.0; Prothrombin Time 13.2 Seconds (11.1-14.7)
[2025-08-29 20:16] LABS: Partial Thromboplastin Time 36.9 Seconds (22.3-36.8)
[2025-08-29 20:23] LABS: Alanine Aminotransferase 11 U/L (6-50); Albumin Level 4.0 g/dL (3.5-5.1); Alkaline Phosphatase 62 U/L (38-126); Anion Gap 9 mmol/L (4-12); Aspartate Amino Transferase 24 U/L (17-59); Bilirubin,Total 0.5 mg/dL (0.2-1.3); Blood Urea Nitrogen 6 mg/dL (9-20); Calcium 9.4 mg/dL (8.4-10.2); Carbon Dioxide 21 mmol/L (22-30); Chloride 86 mmol/L (98-107); Creatine Kinase 112 U/L (55-170); Estimated CRCL calculation 81 ml/min; Estimated Glomerular Filt Rate > 60; Glucose 123 mg/dL (65-110); Lipase 62 U/L (23-300); Magnesium 1.7 mg/dL (1.6-2.3); Potassium 4.3 mmol/L (3.4-5.0); Sodium 116 mmol/L (137-145); Total Protein 7.1 g/dL (6.3-8.2)
[2025-08-29 20:36] LABS: NT Pro B Type Natriuretic Pept 967 pg/mL (19.9-100); Troponin I < 0.012 ng/mL (0.000-0.034)
[2025-08-29 20:39] LABS: Cannabinoid Screen Urine Negative (Negative); Influenza A QL RT-PCR Negative (Negative); Influenza B QL RT-PCR Negative (Negative); RSV RNA, RT-PCR Negative (Negative); SARS-CoV-2 RNA PCR Negative (Negative)
[2025-08-29 20:52] LABS: Thyroid Stimulating Hormone Reflex 1.150 uIU/mL (0.465-4.68)
--- OUTSIDE RECORDS SUMMARY | 2025-08-29 21:20 | XMS_ITS | Clinical Summary ---
Author Organization [facility] [address] Address [address] [place] [address] Care Team Providers Care Auto Body Mechanic Name Role Phone Nuris Berger Primary Care Provider [phone] Jonatan Stokes MD Unavailable [phone] Irma Bajwa MD Unavailable [phone] Allergies Active Allergy Reactions Criticality Noted Date [...] pulmonary disease, unspecified COPD type ([facility]) INHALE 2 PUFFS BY MOUTH [...] 06/22/20 25 Active famotidine (PEPCID) 20 mg tabletIndicatio ns:gastroesopha geal reflux disease Take 1 tablet (20 mg total) by mouth every 12 (twelve) hours 180 tablet 1 07/31/20 25 Active pravastatin (PRAVACHOL) 80 mg tablet TAKE 1 TABLET(80 MG) BY MOUTH DAILY 100 tablet 1 08/17/20 25 Active losartan (COZAAR) 50 mg tablet TAKE 1 TABLET(50 MG) BY MOUTH DAILY 100 tablet 1 08/17/20 25 Active baclofen (LIORESAL) 10 mg tabletIndicatio ns:Low back pain, unspecified back pain laterality, unspecified chronicity, unspecified whether sciatica present TAKE 1 TABLET(10 MG) BY MOUTH TWICE DAILY 60 tablet 1 08/28/20 25 Active pravastatin (PRAVACHOL) 80 mg tablet Take 1 tablet (80 mg total) by mouth daily 90 tablet 1 11/20/19 25 025 Discontinued famotidine (PEPCID) 20 mg tablet Take 1 tablet (20 mg total) by mouth every 12 (twelve) hours 06/16/20 025 Discontinued(Re order) baclofen (LIORESAL) 10 mg tabletIndicatio ns:Low back pain, unspecified back pain laterality, unspecified chronicity, unspecified whether sciatica present TAKE 1 TABLET(10 MG) BY MOUTH TWICE DAILY 60 tablet 1 06/27/20 25 025 Discontinued losartan (COZAAR) 50 mg tablet Take 1 [...] 11/24/2023 Assessment & Plan (11/19/2024 11:45 PM BLIND EYELETTER): Supplement Assessment & Plan (05/20/2024 7:36 PM CDT): Supplement Fatigue 12/12/2022 Assessment & Plan (05/20/2024 7:37 PM CDT): Probably multifactorial. Check labs and followup to re-evaluate Assessment & Plan (11/24/2023 10:35 AM BLIND EYELETTER): Probably multifactorial. Check labs and followup to [...] 01/16/2022 Assessment & Plan (11/19/2024 11:44 PM BLIND EYELETTER): Chronic hiccups for 5+ years Has been [...] to the ER. ER recommended referral to [facility] but patient states he can't go to [...] weeks Assessment & Plan (11/24/2023 10:34 AM BLIND EYELETTER): Patient has persistent chronic hiccups that come [...] monitor Assessment & Plan (08/15/2023 5:01 PM BLIND EYELETTER): Chronic hiccups for years. Has tried multiple interventions along with multiple workups from specialists including Neurology pulmonology and GI. Continue current regimen. Stressed importance of limiting water intake when he has the hiccups spells as this has been leading to hyponatremia requiring hospitalization. Assessment & Plan (08/11/2023 8:45 AM BLIND EYELETTER): Patient with chronic hiccups. Have had difficulty [...] levels. Assessment & Plan (08/15/2022 6:45 PM BLIND EYELETTER): Patient has consulted with most multiple specialists [...] hiccups. Assessment & Plan (08/15/2023 5:02 PM BLIND EYELETTER): Chronic hiccups for years. Has tried multiple interventions along with multiple workups from specialists including Neurology pulmonology and GI. Continue current regimen. Stressed importance of limiting water intake when he has the hiccups spells as this has been leading to hyponatremia requiring hospitalization. Assessment & Plan (08/11/2023 8:46 AM BLIND EYELETTER): Hyponatremia secondary to water intake with chronic [...] 07/14/2019 Assessment & Plan (11/19/2024 11:44 PM BLIND EYELETTER): Continue PPI p.r.n. Assessment & Plan (05/20/2024 7:35 PM CDT): Continue pantoprazole p.r.n. Assessment & Plan (11/24/2023 10:33 AM BLIND EYELETTER): Continue pantoprazole p.r.n. Assessment & Plan (04/08/2023 8:48 PM CDT): Continue PPI p.r.n. Assessment & Plan (12/12/2022 9:43 PM CDT): Insert PPI Assessment & Plan (08/15/2022 6:45 PM BLIND EYELETTER): Continue PPI prn Assessment & Plan (02/09/2021 8:17 PM CDT): Continue PPI Assessment & Plan (07/29/2020 7:33 AM BLIND EYELETTER): Continue PPI Assessment & Plan (03/27/2020 8:01 AM CDT): Dr. Stokes changed him from omeprazole to Pantoprazole for the hiccups. Pt hasn't noted any difference in GERD sxs (still well controlled) or hiccups. Assessment & Plan (09/26/2019 7:38 AM BLIND EYELETTER): Continue PPI Assessment & Plan (07/14/2019 8:46 AM CDT): Discussed GERD at length including anatomy, behavioral changes (raise HOB, meal timings), dietary changes and medication options. Reviewed risks, benefits alternatives, side effects and proper use. Followup if sxs worsen or has hematochezia or hematemeis. Start PPI Chronic obstructive pulmonary disease 06/26/2019 Overview (06/26/2019): Noted on 06/2019 LDCT Assessment & Plan (11/19/2024 11:44 PM BLIND EYELETTER): Patient with allergies and COPD. Continue Singulair albuterol and Symbicort. Follows with Dr. Valdes. Assessment & Plan (05/20/2024 7:35 PM CDT): Continue per Dr. Valdes. Continue with his Symbicort and albuterol inhalers. Low-dose CT will be scheduled for June 16, 2024. Assessment & Plan (11/24/2023 10:33 AM BLIND EYELETTER): COPD. Continue per Dr. Hammond his bean snapper Continue Symbicort Singulair and albuterol p.r.n. Assessment & Plan (04/08/2023 8:48 PM CDT): Encouraged smoking cessation. Continue per Dr. Hammond pulmonology. He is on albuterol Symbicort and Singulair Assessment & Plan (12/12/2022 9:43 PM CDT): Stop smoking. Continue per Pulmonary. Continue Symbicort Singulair and albuterol. Continue monitoring low-dose CTs as instructed Assessment & Plan (08/15/2022 6:44 PM BLIND EYELETTER): Stop smoking. Continue current plan per Pulmonary Assessment & Plan (08/01/2021 9:34 PM BLIND EYELETTER): Continue per Pulmonary Dr. Valdes Assessment & Plan (02/09/2021 8:15 PM CDT): Stop smoking. Continue per Dr. Valdes Assessment & Plan (07/29/2020 7:32 AM BLIND EYELETTER): Continue per Pulm Assessment & Plan (03/27/2020 8:00 AM CDT): Stop smoking. He declines starting inhalers or referral to Pulmonary Assessment & Plan (09/26/2019 10:27 PM BLIND EYELETTER): This is a significant, separately identifiable problem [...] order Assessment & Plan (07/29/2020 7:33 AM BLIND EYELETTER): Needs to repeat ---Dr. Valdes has already ordered Assessment & Plan (03/27/2020 8:00 AM CDT): 06/2019 LDCT Several 2-3mm nodules, probable benign LungRADs 2 --- repeat 06/2020 Assessment & Plan (09/26/2019 10:26 PM BLIND EYELETTER): 06/2019 LDCT Several 2-3mm nodules, probable benign LungRADs 2 --- repeat 06/2020 Hyperplastic rectal polyp 05/20/2019 Overview (05/20/2019): Colonoscopy 01/29/2012 at [facility]--->2021 Assessment & Plan (05/28/2019 7:33 PM CDT): Recvd colonoscopy and due to repeat in 2021 Hiatal hernia 05/20/2019 Mixed hyperlipidemia 05/20/2019 Assessment & Plan (11/19/2024 11:45 PM BLIND EYELETTER): Encouraged patient to follow low fat/low chol [...] 80 Assessment & Plan (11/24/2023 10:34 AM BLIND EYELETTER): Encouraged patient to follow low fat/low chol diet like the Mediterranean diet. Increase good fats in the diet. Increase exercise. Monitor labs as needed. Continue pravastatin 80 Assessment & Plan (08/15/2023 5:03 PM BLIND EYELETTER): Encouraged patient to follow low fat/low chol [...] Zetia Assessment & Plan (08/01/2021 9:33 PM BLIND EYELETTER): Encouraged patient to follow fat/low chol diet [...] statin Assessment & Plan (07/29/2020 7:34 AM BLIND EYELETTER): Encouraged patient to follow fat/low chol diet like the Mediterranean diet. Increase good fats in the diet. Increase exercise. Monitor labs as needed. Assessment & Plan (03/27/2020 8:02 AM CDT): Encouraged patient to continue low fat/low chol diet. Continue exercise. Increase good fats in the diet. Monitor labs as needed. Stable with zetia and pravastatin Assessment & Plan (09/26/2019 7:39 AM BLIND EYELETTER): Encouraged patient to continue low fat/low chol [...] change Assessment & Plan (08/15/2023 5:03 PM BLIND EYELETTER): Patient is legally blind. Continue with Ophthalmology Assessment & Plan (04/08/2023 8:47 PM CDT): No change Assessment & Plan (03/27/2020 8:02 AM CDT): No change Assessment & Plan (09/26/2019 7:39 AM BLIND EYELETTER): No change Assessment & Plan (05/28/2019 7:35 PM CDT): No change Cigarette smoker 05/20/2019 Assessment & Plan (08/11/2023 8:45 AM BLIND EYELETTER): Encouraged smoking cessation. Discussed 3 minutes. Reviewed options for assistance with cessation. Reviewed alf sequela associated with smoking. Pt declines assistance at this time but may contact the office at anytime for further help as they desire. Assessment & Plan (04/08/2023 8:47 PM CDT): Encouraged smoking cessation. Discussed 3 minutes. Reviewed options for assistance with cessation. Reviewed alf sequela associated with smoking. Pt declines assistance at this time but may contact the office at anytime for further help as they desire. Low-dose CT will be due in May. It is already scheduled Assessment & Plan (12/12/2022 9:42 PM CDT): Encouraged smoking cessation. Discussed 3 minutes. Reviewed options for assistance with cessation. Reviewed buttermaker helper sequela associated with smoking. Pt declines assistance at this time but may contact the office at anytime for further help as they desire. Assessment & Plan (08/15/2022 6:44 PM BLIND EYELETTER): Encouraged smoking cessation. Discussed 3 minutes. Reviewed options for assistance with cessation. Reviewed alf sequela associated with smoking. Pt declines assistance at this time but may contact the office at anytime for further help as they desire. Assessment & Plan (05/09/2022 8:19 PM CDT): Encouraged smoking cessation. Discussed 3 minutes. Reviewed options for assistance with cessation. Reviewed alf sequela associated with smoking. Pt declines assistance at this time but may contact the office at anytime for further help as they desire. Assessment & Plan (08/01/2021 9:33 PM BLIND EYELETTER): Encouraged smoking cessation. Discussed 3 minutes. Reviewed options for assistance with cessation. Reviewed alf sequela associated with smoking. Pt declines assistance at this time but may contact the office at anytime for further help as they desire. Assessment & Plan (05/17/2021 11:41 PM CDT): Encouraged smoking cessation. Discussed 3 minutes. Reviewed options for assistance with cessation. Reviewed buttermaker helper sequela associated with smoking. Pt declines assistance at this time but may contact the office at anytime for further help as they desire. Assessment & Plan (03/12/2021 12:31 PM CDT): Encouraged smoking cessation. Discussed 3 minutes. Reviewed options for assistance with cessation. Reviewed alf sequela associated with smoking. He is slowing down. Offered assistance. May call if decides he wants help Assessment & Plan (07/29/2020 7:34 AM BLIND EYELETTER): Encouraged smoking cessation. Discussed 3 minutes. Reviewed options for assistance with cessation. Reviewed buttermaker helper sequela associated with smoking. Pt declines assistance at this time but may contact the office at anytime for further help as they desire. Assessment & Plan (03/27/2020 8:02 AM CDT): Encouraged smoking cessation. Discussed 3 minutes. Reviewed options for assistance with cessation. Reviewed buttermaker helper sequela associated with smoking. Pt declines assistance at this time but may contact the office at anytime for further help as they desire. Assessment & Plan (09/26/2019 7:39 AM BLIND EYELETTER): Encouraged smoking cessation. Discussed 3 minutes. Reviewed options for assistance with cessation. Reviewed buttermaker helper sequela associated with smoking. Pt declines assistance at this time but may contact the office at anytime for further help as they desire. Assessment & Plan (07/14/2019 7:05 PM CDT): Encouraged smoking cessation. Discussed 3 minutes. Reviewed options for assistance with cessation. Reviewed alf sequela associated with smoking. Pt declines assistance [...] 05/20/2019 Assessment & Plan (11/19/2024 11:45 PM BLIND EYELETTER): Pre-diabetes/hyperglycemia is a precursor to Dm. Stressed [...] diabetes. Assessment & Plan (11/24/2023 10:34 AM BLIND EYELETTER): Pre-diabetes/hyperglycemia is a precursor to Dm. Stressed importance of working on diet (decrease your simple sugars and one carbohydrate with each meal) and increase you exercise to achieve weight loss and this will help prevent you from progressing to diabetes. Assessment & Plan (08/15/2023 5:03 PM BLIND EYELETTER): Pre-diabetes/hyperglycemia is a precursor to Dm. Stressed [...] diabetes. Assessment & Plan (08/01/2021 9:33 PM BLIND EYELETTER): Pre-diabetes/hyperglycemia is a precursor to Dm. Stressed [...] diabetes. Assessment & Plan (07/29/2020 7:34 AM BLIND EYELETTER): Pre-diabetes is a precursor to Dm. Stressed [...] labs Assessment & Plan (09/26/2019 10:27 PM BLIND EYELETTER): This is a significant, separately identifiable problem [...] 025 Assessment & Plan (11/19/2024 11:45 PM BLIND EYELETTER): Encouraged healthy lifestyle, good nutrition and exercise. Encouraged Calcium and Vitamin D and weight bearing exercise for bone health. Reviewed immunizations Reviewed age appropirate screenings. BMI 23.0-23.9, adult 06/20/2024 025 Assessment & Plan (10/30/2024 8:57 AM BLIND EYELETTER): Weight/BMI is in healthy range. Continue healthy [...] 024 Assessment & Plan (11/24/2023 10:35 AM BLIND EYELETTER): Encouraged healthy lifestyle, good nutrition and exercise. Encouraged Calcium and Vitamin D and weight bearing exercise for bone health. Reviewed immunizations Reviewed age appropirate screenings. Need for influenza vaccination 08/15/2023 11/24/2023 Assessment & Plan (08/15/2023 5:04 PM BLIND EYELETTER): Flu vaccine updated in the office today BMI 22.0-22.9, adult 07/22/2023 024 Assessment & Plan (08/11/2023 8:12 AM BLIND EYELETTER): Weight/BMI is in healthy range. Continue healthy [...] 04/03/2023 Assessment & Plan (08/15/2022 6:45 PM BLIND EYELETTER): Flu updated in the office today BMI [...] test outpatient. Was referred to an outside business supervisor. Encouraged to consider seeing a [facility] Medical group of cardiologists [...] 022 Assessment & Plan (08/01/2021 7:28 AM BLIND EYELETTER): Weight/BMI is in healthy range. Continue healthy lifestyle to maintain. Medicare annual wellness visit, subsequent 08/01/2021 08/15/2022 Assessment & Plan (08/01/2021 9:34 PM BLIND EYELETTER): Encouraged healthy lifestyle, good nutrition and exercise. Encouraged Calcium and Vitamin D and weight bearing exercise for bone health. Reviewed immunizations. Reviewed age appropirate screenings. Medicare Wellness Documentation is completed within the chart Fatigue 05/17/2021 05/02/2022 Assessment & Plan (08/01/2021 9:34 PM BLIND EYELETTER): Probably multifactorial. Check labs and followup to [...] albuterol Stop smoking. Keep followup with Dr. Balck on 05/20. Assessment & Plan (03/12/2021 12:32 PM CDT): Complete Augmentin. Continue with Symbicort and p.r.n. albuterol. Recheck chest x-ray in about 2 weeks. He is to follow-up if he has increased symptoms or difficulty breathing. He has follow-up already scheduled with Pulmonary. Stop smoking BMI 21.0-21.9, adult 01/21/2021 024 Assessment & Plan (11/24/2023 10:34 AM BLIND EYELETTER): Weight/BMI is in healthy range. Continue healthy [...] 05/02/2022 Assessment & Plan (07/29/2020 7:34 AM BLIND EYELETTER): Probably multifactorial. Check labs and followup to re-evaluate Need for immunization against influenza 07/29/2020 11/24/2020 Assessment & Plan (07/29/2020 7:34 AM BLIND EYELETTER): Updated in office today BMI 22.0-22.9, adult 03/27/2020 024 Assessment & Plan (05/20/2024 7:37 PM CDT): Weight/BMI is in healthy range. Continue healthy lifestyle to maintain. Assessment & Plan (07/29/2020 7:34 AM BLIND EYELETTER): Weight/BMI is in healthy range. Continue healthy [...] 09/26/2019 Assessment & Plan (09/26/2019 7:39 AM BLIND EYELETTER): Weight/BMI is in healthy range. Continue healthy lifestyle to maintain. Annual physical exam 09/26/2019 020 Assessment & Plan (09/26/2019 7:40 AM BLIND EYELETTER): Encouraged healthy lifestyle, good nutrition and exercise. Encouraged Calcium and Vitamin D and weight bearing exercise for bone health. Reviewed immunizations Reviewed age appropirate screenings. Influenza vaccine refused 09/26/2019 Assessment & Plan (09/26/2019 7:40 AM BLIND EYELETTER): Encouraged vaccine. Reviewed risks/ benefits. Patient refuses and accepts risks. Esophagitis determined by endoscopy 05/20/2019 05/02/2022 Gastritis 05/20/2019 05/02/2022 Essential (primary) hypertension 05/20/2019 05/20/2024 Assessment & Plan (11/24/2023 10:34 AM BLIND EYELETTER): Bp is stable/in acceptable range for any co-morbidities. Encouraged to limit sodium intake and exercise for weight control. Continue losartan 50 Assessment & Plan (08/15/2023 5:04 PM BLIND EYELETTER): Bp is stable/in acceptable range for any co-morbidities. Encouraged to limit sodium intake and exercise for weight control. Continue per Dr. Curtis Assessment & Plan (08/11/2023 8:45 AM BLIND EYELETTER): Bp is stable/in acceptable range for any [...] losartan Assessment & Plan (08/15/2022 6:44 PM BLIND EYELETTER): Bp is stable/in acceptable range for any [...] 50 Assessment & Plan (08/01/2021 9:33 PM BLIND EYELETTER): Bp is stable/in acceptable range for any [...] Losartan/HCTZ Assessment & Plan (07/29/2020 7:33 AM BLIND EYELETTER): Bp is stable/in acceptable range for any co-morbidities. Encouraged to limit sodium intake and exercise for weight control. Losartan and HCTZ Assessment & Plan (03/27/2020 8:00 AM CDT): Bp is stable/in acceptable range for any co-morbidities. Encouraged to limit sodium intake and exercise for weight control. Continue losartan/HCTZ Assessment & Plan (09/26/2019 7:38 AM BLIND EYELETTER): Bp is stable/in acceptable range for any [...] 01/21/2022 Assessment & Plan (08/01/2021 9:34 PM BLIND EYELETTER): Persistent hiccups. Has consulted with multiple providers [...] omeprazole Assessment & Plan (07/29/2020 7:32 AM BLIND EYELETTER): Continue per ENT/Pulm. He is responding to BID omeprazole. Will monitor Assessment & Plan (03/27/2020 7:59 AM CDT): Dr. Stokes started him on Pantoprazole. He hasn't noted much difference. Needs to followup to complete workup. Encouraged patient to call and make appointment. Assessment & Plan (09/26/2019 10:26 PM BLIND EYELETTER): This is a significant, separately identifiable problem that was evaluated and managed on the same day as the wellness exam Less frequent than in the past. Continue the PPI and monitor Rx sent to pharmacy. Assessment & Plan (08/24/2019 9:04 AM BLIND EYELETTER): Improving with the PPI. Continue PPI and [...] 2018 Assessment & Plan (08/24/2019 9:04 AM BLIND EYELETTER): Encouraged vaccine. Reviewed risks/ benefits. Patient refuses and accepts risks. Assessment & Plan (07/14/2019 7:05 PM CDT): Encouraged vaccine. Reviewed risks/ benefits. Patient refuses and accepts risks. Assessment & Plan (05/28/2019 7:34 PM CDT): Encouraged again Hypovolemia dehydration /02/2024 Leukocytosis 11/24/2023 Hypercholesteremia Assessment & Plan (04/08/2023 8:47 PM CDT): Encouraged patient to follow low fat/low chol diet like the Mediterranean diet. Increase good fats in the diet. Increase exercise. Monitor labs as needed. Continue pravastatin and Zetia Gastroesophageal reflux dise ase without esophagitis 04/03/2023 Encounters Date Type Department Care Team Description 07/31/2025 [facility] ED Outreach [address] [address] Roxana Fernandez MA 07/31/2025 [facility] IP Outreach [address] [address] Roxana Fernandez MA 07/31/[address] [place] [phone] Nuris Berger PA 06/26/2025 9:30 AM CDT Office Visit [address] [place] [phone] Nuris Berger PA Hyponatremia (Primary Dx); Psychogenic polydipsia; Chronic hiccups; BMI 23.0-23.9, adult; Generalized body aches; Legally blind; Flu vaccine need 06/21/[address] [place] [phone] Nuris Berger PA 06/20/2025 [facility] IP Outreach [address] [address] [address] [place] 06/19/2025 [facility] IP Outreach [address] [address] [address] [place] 06/18/[address] [facility] [address] [place] [address] [address] [place] 06/01/2025 Telephone [facility] Family [facility] [address] [place] [address] Nuris Berger PA 05/30/2025 [facility] IP Outreach [address] [address] Hilton James LPN from Last 3 Months Immunizations Immunization Administration [...] Name Comments Blindness Father Heart attack Father [place] Heart disease Father No Known Problems Mother [...] often do you attend chur ch or tenriism services? Patient declined 12/03/2023 Do you belong to any clubs o r organizations such as mosque groups, unions, fraternal or athletic groups, or [...] in a intermediate (including now)? No 12/03/2023 AUDIT-C Answer Date [...] on file Legal Sex Male 12:22 AM BLIND EYELETTER Gender Identity Not on file Sexual Orientation [...] Read Routine (OP Routine) 10/03/2024 9:25 AM BLIND EYELETTER Pulmonary nodules HEPATITIS PANEL, ACUTE Routine 05/03/2022 [...] compared to the equimolar-standardized total PSA ([facility] [place]). Comparison of serial PSA results should be [...] [facility] BLOOD ORDERABLES Final Result [facility] [address] [place] [address] * CT Chest WO Contrast F/U Lung Screen Protocol (10/03/2024 9:25 AM BLIND EYELETTER) Anatomical Region Laterality Modality Chest N/A Computed Tomogra phy 10/03/2024 7:11 PM BLIND EYELETTER Narrative 10/03/2024 7:17 PM BLIND EYELETTER EXAM DESCRIPTION: CT CHEST WO CONTRAST F/U [...] Estuardo Ortiz M.D. KT T: Report ID: [id number] Reading Location: [id number] us Tasia Hoffman MD IMG CT PROCEDURES Final Resul t * Hepatitis panel, acute (05/03/2022 5:40 AM CDT) Hep A IgM Nonreactive Nonreactive [facility] Comment: Interpretive Data: If Hep A IgM [...] on 19. Hep C Ab Nonreactive Nonreactive [facility] Comment: Interpretive Data Nonreactive: Antibodies to HCV [...] MICROBIOLOGY - GENERAL OR DERABLES Final Result [facility] [address] [facility] Department [place] [address] * (ABNORMAL) COLONOSCOPY (07/14/2021) Jame Mg MD HEALTH MAINTENANCE Edited Result - Final from Last 3 Months or Most Recently Relevant to Health Maintenance Insurance [employer] MED[employer]ARE GOLD Advance Directives For more information, please contact: [phone] * Full Code (Latest Code Status on [...] 10:34 PM 11/16/2022 9:56 PM Care Teams Auto Body Mechanic Relationship Specialty Start Date End Date Nuris Berger PA [address] [place] [address] PCP - General Internal Medicine 12/28/18 Jonatan Stokes MD [address] [place] [address] Consulting Physician Otolaryngology 03/27/20 Irma Bajwa MD [address] [place] [address] Consulting Physician Neurology 05/07/22
--- OUTSIDE RECORDS SUMMARY | 2025-08-29 21:20 | XMS_ITS | Encounter Summary ---
Author Organization [facility] Healthcare Address [address] [place] [address] Care Team Providers Care Body Welder Name Role Phone Nuris Berger Primary Care Provider [phone] Jonatan Stokes MD Unavailable [phone] Irma Bajwa MD Unavailable [phone] Brooke [address] MA Unavailable Unavailable Roxana Fernandez MA Unavailable [phone] Encounter Details Date Type Department Care Team (Late st Contact Info) Description 05/29/2025 Orders Only [facility] Health Information Management [address] [place] [address] Scanning, Provider Social History Tobacco Use Types Packs/Day Years Used Date Smoking Tobacco: Former Cigarettes 0.8 40 0 09/1981 - 09/2021 Smokeless Tobacco: Never Alcohol Use Standard Drinks/Week Comments Yes 2 (1 standard drink = 0.6 oz pur e alcohol) social [facility] Utilities Answer Date Recorded In the past 12 months has [employer] electric, gas, oil, or water company threatened [...] How often do you attend [facility] or holiness services? Patient declined 12/03/2023 Do you belong to any clubs o r organizations such as denominational groups, unions, fraternal or athletic groups, or [...] in a chcf (including now)? 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 Gender Identity Not on file Sexual Orientation [...] on filedocumented in this encounter Care Teams Body Welder Relationship Specialty Start Date End Date Nuris Berger PA [address] [facility] [address] [place] [address] PCP - General Internal Medicine 12/28/18 Jonatan Stokes MD [address] [place] [address] Consulting Physician Otolaryngology 03/27/20 Irma Bajwa MD [address] [place] [address] Consulting Physician Neurology 05/07/22 Brooke Plaza MA [address] [place] [address] ACO Care Top Steep Tender 06/18/25 06/19/25 Roxana Fernandez MA [address] [place] [address] ACO Care Top Steep Tender 07/31/25 07/31/25 documented as of this encounter
--- OUTSIDE RECORDS SUMMARY | 2025-08-29 21:20 | XMS_ITS | Clinical Summary ---
Author Organization [facility] Address [facility] [place] [address] Care Team Providers Care Employee Wellness/Fitness Coordinator Name Role Phone Nuris Berger Primary Care Provider [phone] Allergies No known active allergies Medications albuterol [...] Comments Blood Pressure 120/62 09/04/2021 8:52 AM DIGITAL MEDIA PLANNER Pulse 82 09/04/2021 8:52 AM DIGITAL MEDIA PLANNER Temperature 36.3 C (97.4 F) 09/04/2021 8:52 AM DIGITAL MEDIA PLANNER Respiratory Rate 16 09/04/2021 8:52 AM DIGITAL MEDIA PLANNER Oxygen Saturation 97% 09/04/2021 8:52 AM DIGITAL MEDIA PLANNER Inhaled Oxygen Concentration - - Weight 64.4 kg (142 lb) 09/04/2021 8:52 AM DIGITAL MEDIA PLANNER Height 172.7 cm (5' 8) 09/04/2021 8:52 AM DIGITAL MEDIA PLANNER Body Mass Index 21.59 09/04/2021 8:52 AM DIGITAL MEDIA PLANNER Plan of Treatment Health Maintenance Due Date [...] this topic Insurance AETNA MEDICARE Care Teams Employee Wellness/Fitness Coordinator Relationship Specialty Start Date End Date Nuris Berger PA [address] [place] [address] PCP - General PHYSICIAN SENIOR PAYROLL ADMINISTRATOR 06/09/21
--- OUTSIDE RECORDS SUMMARY | 2025-08-29 21:21 | XMS_ITS | Encounter Summary ---
Author Organization [facility] Healthcare Address [address] [place] [address] Care Team Providers Care Latex Ribbon Machine Operator Name Role Phone Nuris Berger Primary Care Provider [phone] Jonatan Stokes MD Unavailable [phone] Irma Bajwa MD Unavailable [phone] Ayla Dugan LPN Unavailable [phone] Brooke [address] MA Unavailable Unavailable Roxana Fernandez MA Unavailable [phone] Encounter Details Date Type Department Care Team (Late st Contact Info) Description 12/26/2024 Orders Only [facility] Health Information Management [address] [place] [address] Scanning, Provider Social History Tobacco Use Types Packs/Day Years Used Date Smoking Tobacco: Former Cigarettes 0.8 40 0 09/1981 - 09/2021 Smokeless Tobacco: Never Alcohol Use Standard Drinks/Week Comments Yes 0 (1 standard drink = 0.6 oz pur e alcohol) social 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 Gender Identity Not on file Sexual [...] on filedocumented in this encounter Care Teams Latex Ribbon Machine Operator Relationship Specialty Start Date End Date Nuris Berger PA [address] [facility] [address] [place] [address] PCP - General Internal Medicine 12/28/18 Jonatan Stokes MD [address] [place] [address] Consulting Physician Otolaryngology 03/27/20 Irma Bajwa MD [address] [place] [address] Consulting Physician Neurology 05/07/22 Ayla Dugan LPN [address] [place] [address] [address] [place] [address] Machine Sander 03/30/25 03/30/25 Brooke Plaza MA [address] [place] [address] ACO Care Brass Bobbin Winder 06/18/25 06/19/25 Roxana Fernandez MA [address] [place] [address] ACO Care Brass Bobbin Winder 07/31/25 07/31/25 documented as of this encounter
--- OUTSIDE RECORDS SUMMARY | 2025-08-29 21:21 | XMS_ITS | Clinical Summary ---
Author Organization [facility] [employer] Address [address] [place] [address] Care Team Providers Care Bin Packer Name Role Phone Nuris Berger PA-C Primary Care Provider [phone] Source Comments [facility] [employer],non-owned Affiliates and Associated Physician Practices is amultiple site organization consisting of ambulatory clinics and hospital sitesin [place], [place], [place] and [place]. This disclosure is being madepursuant to the Care Everywhere program and may not contain all information available regarding this patient. Last updated 18.[facility] [employer] Allergies Active Allergy Reactions Criticality Noted Date [...] tablet 06/17/2023 Active ergocalciferol (Drisdol) 1.25 MG (41589 UT) capsule Take 1 (one) capsule by [...] 11 07/21/2024 Active trimethoprim-po lymyxin B (Polytrim) 05813-2.1 UNIT/ML-% ophthalmic solution Instill 1 (one) drop [...] Reviewed options for assistance with cessation. Reviewed jail sequela associated with smoking. Pt declines assistance [...] polyp 05/20/2019 Overview (12/24/2020): Colonoscopy 01/29/2012 at [facility]--->2021 Last Assessment & Plan: Recvd [...] Department Care Team Description 08/07/2025 9:15 AM DE ALCHOLIZER Clinical Support [facility] [address] [place] [phone] Tyrel Velez MD 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 (Primary Dx) 08/07/2025 8:45 AM DE ALCHOLIZER Clinical Support [facility] - Ophthalmology [address] [place] [phone] Tyrel Velez MD 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 (Primary Dx) 08/07/2025 8:40 AM DE ALCHOLIZER Office Visit [facility] - Ophthalmology [address] [place] [phone] Tyrel Velez MD 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 (Primary Dx) 08/07/2025 Travel from Last 3 Months Immunizations Immunization Administration Dates Next Due CovRateItAll primary monoval ent 12+ yr 0.3mL Purple [...] Comments Blood Pressure 128/70 08/26/2023 12:43 PM DE ALCHOLIZER Pulse 65 08/26/2023 12:43 PM DE ALCHOLIZER Temperature 35.9 C (96.7 F) 08/26/2023 12:34 PM DE ALCHOLIZER Respiratory Rate 14 08/26/2023 12:43 PM DE ALCHOLIZER Oxygen Saturation 98% 08/26/2023 12:34 PM DE ALCHOLIZER Inhaled Oxygen Concentration - - Weight 64.9 kg (143 lb) 08/26/2023 9:01 AM DE ALCHOLIZER Height 172.7 cm (5' 8) 08/26/2023 9:01 AM DE ALCHOLIZER Body Mass Index 21.74 08/26/2023 9:01 AM DE ALCHOLIZER Plan of Treatment Upcoming Encounters Date Type Department Care Team (Late st Contact Info) Description 10/17/2025 9:00 AM DE ALCHOLIZER Office Visit [facility] - Ophthalmology [address] [place] [phone] Louis Hansen MD [address] [place] [address] DE[place] [phone] 04/16/2026 9:00 AM CDT Office Visit [facility] - Ophthalmology [address] [place] [phone] Tyrel Velez MD [address] [place] [phone] Health Maintenance Due Date Last Done Comments [...] this topic Medical Devices Implanted Type Area Machine Adjuster Leader Device Identifier Shelf Expiration Date Model / Serial / Lot Drain Glcm Thk.9mm Blnt Tpr [facility] Fl - [id number] Implanted:Qty: 1 on 05/04/2018 by Tyrel Velez MD at [facility] Left: Eye [employer] 03/15/2020 [id number] / [id number] / [id number] Graft Tissue Ttplst Sclr .8x.5cm Lopro - [id number] Implanted:Qty: 1 on 05/04/2018 by Tyrel Velez MD at [facility] Left: Eye [employer] 01/17/2023 [id number] / [id number] / [id number] Impl Opth 250sq Mm Brvldt Magaly 1 Qdrnt - [id number] Implanted:Qty: 1 on 06/16/2023 by Tyrel Velez MD at [facility] Left: Eye [employer] 01/09/2024 [id number] / [id number] / Graft Tissue Ttpl Ioptch Sclr .8x.5cm - [id number] Implanted:Qty: 1 on 06/16/2023 by Tyrel Velez MD at [facility] Left: Eye [employer] 09/19/2027 [id number] / [id number] / Graft Tissue Ttpl Ioptch Sclr .8x.5cm - [id number] Implanted:Qty: 1 on 06/16/2023 by Tyrel Velez MD at [facility] Left: Eye [employer] 09/19/2027 [id number] / [id number] / J Luis Cornea - [id number] Implanted:Qty: 1 on 08/26/2023 by Louis Hansen MD at [facility] Left: Eye [employer] 09/05/2023 [id number] / [id number] Description:Product Numb:[id number] EXP:09-05-2023 DIN:[id number] Insurance AETNA MEDICARE ADV AETNA [facility] Care Address: [facility] [address] [place] [address] Advance Directives * Full Code (Latest Code Status on File) Date Activated Date Inactivated Comments 05/04/2018 11:35 AM 05/04/2018 1:21 PM * Full Code Date Activated Date Inactivated Comments 05/04/2018 7:43 AM 05/04/2018 11:35 AM Care Teams Bin Packer Relationship Specialty Start Date End Date Nuris Berger PA-C PCP - General 02/13/20
--- OUTSIDE RECORDS SUMMARY | 2025-08-29 21:21 | XMS_ITS | Encounter Summary ---
Author Organization [facility] Healthcare Address [address] [place] [address] Care Team Providers Care Substitute Crossing Guard Name Role Phone Nuris Berger Primary Care Provider [phone] Jonatan Stokes MD Unavailable [phone] Irma Bajwa MD Unavailable [phone] Ayla Dugan LPN Unavailable [phone] Brooke Plaza MA Unavailable Unavailable Roxana Fernandez MA Unavailable [phone] Encounter Details Date Type Department Care Team (Late st Contact Info) Description 12/21/2024 Orders Only [facility] Health Information Management [address] [place] [address] Scanning, Provider Social History Tobacco Use Types Packs/Day Years Used Date Smoking Tobacco: Former Cigarettes 0.8 40 0 09/1981 - 09/2021 Smokeless Tobacco: Never Alcohol Use Standard Drinks/Week Comments Yes 0 (1 standard drink = 0.6 oz pur e alcohol) social [facility] Utilities Answer Date Recorded In the past 12 months has [employer] electric, gas, oil, or water company threatened [...] often do you attend chur ch or moravian services? Patient declined 12/03/2023 Do you belong [...] in a snf (including now)? No 12/03/2023 Personal Safety Answer Date Recorded Have you ever been in or are you currently in a harmful physical or emotional relationship or is someone making you feel afraid or unsafe? 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 Gender Identity Not on file [...] on filedocumented in this encounter Care Teams Substitute Crossing Guard Relationship Specialty Start Date End Date Nuris Berger PA [address] [place] [address] PCP - General Internal Medicine 12/28/18 Jonatan Stokes MD [address] [place] [address] Consulting Physician Otolaryngology 03/27/20 Irma Bajwa MD [facility] [place] [address] Consulting Physician Neurology 05/07/22 Ayla Dugan LPN [address] [place] [address] Continuous Process Tanner Rotary Drum 03/30/25 03/30/25 Brooke Plaza MA [address] [place] [address] ACO Care Stock Cutter 06/18/25 06/19/25 Roxana Fernandez MA [address] [place] [address] ACO Care Stock Cutter 07/31/25 07/31/25 documented as of this encounter
--- OUTSIDE RECORDS SUMMARY | 2025-08-29 21:21 | XMS_ITS | Encounter Summary ---
Author Organization [facility] Healthcare Address [address] [place] [address] Care Team Providers Care Fine Artist Name Role Phone Nuris Berger Primary Care Provider [phone] Jonatan Stokes MD Unavailable [phone] Irma Bajwa MD Unavailable [phone] Ayla Dugan LPN Unavailable [phone] Bro[address] MA Unavailable Unavailable Roxana Fernandez MA Unavailable [phone] Encounter Details Date Type Department Care Team (Late st Contact Info) Description 03/26/2025 Orders Only [facility] Health Information Management [address] [place] [address] Scanning, Provider Social History Tobacco Use Types Packs/Day Years Used Date Smoking Tobacco: Former Cigarettes 0.8 40 0 09/1981 - 09/2021 Smokeless Tobacco: Never Alcohol Use Standard Drinks/Week Comments Yes 0 (1 standard drink = 0.6 oz pur e alcohol) social [facility] Utilities Answer Date Recorded In the past 12 months has [employer] electric, gas, oil, or water company threatened [...] any clubs o r organizations such as mu-ism groups, unions, fraternal or athletic groups, or [...] on file Legal Sex Male 12:22 AM BI TESTER Gender Identity Not on file Sexual Orientation [...] on filedocumented in this encounter Care Teams Fine Artist Relationship Specialty Start Date End Date Nuris Berger PA [address] [facility] [address] [place] [address] PCP - General Internal Medicine 12/28/18 Jonatan Stokes MD [address] [place] [address] Consulting Physician Otolaryngology 03/27/20 Irma Bajwa MD [address] [facility] [address] [address] [place] [address] Consulting Physician Neurology 05/07/22 Ayla Dugan LPN [address] [place] [address] [address] [place] [address] Service Car Driver 03/30/25 03/30/25 Brooke Plaza MA [address] [place] [address] ACO Care Claim Service Representative 06/18/25 06/19/25 Roxana Fernandez MA [address] [place] [address] ACO Care Claim Service Representative 07/31/25 07/31/25 documented as of this encounter
[2025-08-29] MEDS: SODIUM CHLORIDE 0.9% IV 1,000 ML 50 ML IV CONT (22:30)
[2025-08-29 23:27] VITALS: BP 139/63; PULSE 94; RESP 18; O2SAT 95
[2025-08-30] VITALS (18 sets, daily range): BP systolic 78–155; BP diastolic 27–89; PULSE 76–99; RESP 16–22; TEMP 36.2–37; O2SAT 90–100; BMI 24.1
--- NOTE | 2025-08-30 00:01 | WPCEDHO ---
ED Hand Off Checklist All vitals saved:Yes IV Site documented:Yes All med administrations documented:Yes Triage Note Triage Note pt to ED via POV. Pt accompanied 08/29/25 19:51 by daughter. pt states he is dizzy, nauseous, light headed, and has hiccups. Pt daughter states pt is more disoriented than his normal self. Pt states he ahs not ate anything today. Pt is A&Ox4. Pt is hard of hearing. agree with triage assessment. Allergies No Known Allergies Allergy (Verified 08/10/25 08:49) Family History (Last Reviewed 08/10/25 @ 06:09 by Shawn Mary MD) Grandparent Acute myocardial infarction Mother Acute myocardial infarction Skin cancer Father Acute myocardial infarction Sibling Cancer Active Medications including assessments/comments Sodium Chloride (Normal Saline Iv) 1,000 mls @ 50 mls/hr IV CONT .Q20H STA Stop: 08/30/25 17:21 Last Admin: 08/29/25 22:30 Dose: 50 mls/hr Documented By: ADOLFO Infusion/Titration Document 08/29/25 22:30 ADOLFO (Rec: 08/29/25 22:30 ADOLFO [id number]) Intake IV Site Peripheral Access Left Antecubital Container Volume 1,000 Waste Amount 0 Dosing Infusion Rate 50 Cumulative Dose Not Applicable Increase/Decrease Started Elapsed Time Elapsed Time ( 0m minutes) Administered/Completed Medications Discontinued Medications Metoclopramide HCl (Metoclopramide Hcl Inj 10 Mg/2 Ml Vial) 10 mg IV PUSH ONCE STA Stop: 08/29/25 19:39 Last Admin: 08/29/25 19:58 Dose: 10 mg Documented By: ADOLFO Ondansetron HCl (Ondansetron Inj 4 Mg/2 Ml Vial) 4 mg IV PUSH ONCE STA Stop: 08/29/25 19:32 Last Admin: 08/29/25 19:54 Dose: Not Given Documented By: ADOLFO Non-Admin Reason: Order Discontinued Pantoprazole Sodium (Pantoprazole Sodium Iv 40 Mg Vial) 40 mg IV PUSH ONCE STA Stop: 08/29/25 19:32 Last Admin: 08/29/25 19:58 Dose: 40 mg Documented By: ADOLFO Interventions/Assessments Cardiac Monitoring Start: 08/29/25 19:14 Freq: Status: Active Protocol: Document 08/29/25 23:27 KRZ (Rec: 08/29/25 23:27 KRZ [id number]) Tanning Consultant Assessment Tanning Consultant Yes Applied Pulse Rate (60-100 94 beats/min) EKG Rythm Sinus Rhythm IV / Saline Lock, Insert Start: 08/29/25 19:14 Freq: Status: Active Protocol: Document 08/29/25 19:51 KLM (Rec: 08/29/25 19:52 KLM [id number]) IV Assessment Peripheral Access Left Antecubital IV Catheter Access Initiated IV Insertion Date 08/29/25 IV Insertion Time 19:52 Catheter Gauge 18 IV Insertion 1 Attempts IV Site Assessment WNL IV Care and WNL Maintenance PA: Cardiovascular Assessment Start: 08/29/25 19:14 Freq: Status: Active Protocol: Document 08/29/25 23:25 KRZ (Rec: 08/29/25 23:26 KRZ [id number]) Cardiovascular Assessment Cardiovascular Dizziness Symptoms Skin Description Normal Color Heart Sounds Normal Chest Pain Assessment Chest Pain Intensity 0 PA: Neurological Assessment Start: 08/29/25 19:14 Freq: Status: Active Protocol: Document 08/29/25 23:25 KRZ (Rec: 08/29/25 23:26 KRZ [id number]) Neurological Assessment Level of Alert Consciousness Orientation Oriented to Person,Oriented to Place,Oriented to Time Neurological Confusion,Nausea/Vomiting,Weakness, General Symptoms Hallucination Type None Behavior Cooperative Patient Able to Comprehend Comprehension Memory Description Intact Ability to Maintain Unable to Assess Balance Facial Symmetry Symmetrical Speech Pattern Delayed Talia Coma Scale Eyes Open Verbal Oriented and Alert Motor Follows Commands Talia Coma Total 15 Score Last Vital Signs Temperature 98.7 F 08/29/25 19:14 Pulse Rate 94 08/29/25 23:27 Respiratory Rate 18 08/29/25 23:27 Pulse Oximetry 95 08/29/25 23:27 Blood Pressure 139/63 08/29/25 23:27 Blood Pressure Mean 88 08/29/25 23:27 Oxygen Delivery Room Air 08/29/25 19:14 Weight 70 kg 08/29/25 19:51 Last Result - Abnormals Only WBC 11.3 K/mm3 (4.5-10.0) H 08/29/25 19:50 RBC 3.01 M/mm3 (4.6-6.20) L 08/29/25 19:50 Hgb 8.7 g/dL (14.0-18.0) L 08/29/25 19:50 Hct 25.4 % (42.0-52.0) L 08/29/25 19:50 MPV 10.9 fl (7.4-10.4) H 08/29/25 19:50 Neut % (Auto) 87.2 % (45.5-73.1) H 08/29/25 19:50 Lymph % (Auto) 6.8 % (18.3-44.2) L 08/29/25 19:50 Lymph # (Auto) 0.77 K/mm3 (0.9-3.2) L 08/29/25 19:50 Abs Immat Gran (auto) 0.04 K/mm3 (0.00-0.031) H 08/29/25 19:50 Absolute Neuts (auto) 9.9 K/mm3 (1.3-6.7) H 08/29/25 19:50 APTT 36.9 Seconds (22.3-36.8) H 08/29/25 19:50 Sodium 116 mmol/L (137-145) L* 08/29/25 19:50 Chloride 86 mmol/L (98-107) L 08/29/25 19:50 Carbon Dioxide 21 mmol/L (22-30) L 08/29/25 19:50 BUN 6 mg/dL (9-20) L D 08/29/25 19:50 Glucose 123 mg/dL (65-110) H 08/29/25 19:50 NT-Pro-B Natriuret Pep 967 pg/mL (19.9-100) H 08/29/25 19:50 Most Recent Suicide Severity Rating Suicide Severity Rating NO RISK INDICATED 08/29/25 19:51
[2025-08-30 00:34] LABS: Anion Gap 6 mmol/L (4-12); Blood Urea Nitrogen 5 mg/dL (9-20); Calcium 9.5 mg/dL (8.4-10.2); Carbon Dioxide 23 mmol/L (22-30); Chloride 92 mmol/L (98-107); Estimated CRCL calculation 83 ml/min; Estimated Glomerular Filt Rate > 60; Glucose 124 mg/dL (65-110); Potassium 4.4 mmol/L (3.4-5.0); Sodium 121 mmol/L (137-145)
[2025-08-30 01:27] LABS: Anion Gap 7 mmol/L (4-12); Blood Urea Nitrogen 5 mg/dL (9-20); Calcium 9.4 mg/dL (8.4-10.2); Carbon Dioxide 25 mmol/L (22-30); Chloride 91 mmol/L (98-107); Estimated CRCL calculation 78 ml/min; Estimated Glomerular Filt Rate > 60; Glucose 127 mg/dL (65-110); Potassium 4.6 mmol/L (3.4-5.0); Sodium 123 mmol/L (137-145)
[2025-08-30] MEDS: DEXTROSE 5% 1,000 ML 1,000 ML 100 ML IV CONT (03:03)
--- NOTE | 2025-08-30 05:07 | PM.IMHP2 ---
H&P: HPI History of Present Illness Date/Time: 08/30/25 02:20 Chief Complaint: Lightheaded and nauseous Narrative: 64-year-old male who is well-known to the hospitalist service with numerous admissions for recurrent hyponatremia due to psychogenic polydipsia associated with chronic hiccups, COPD, essential hypertension, blindness due to glaucoma, chronic hearing loss and multiple other comorbidities who presented to the ER with recurrent symptoms of lightheadedness and nausea. The patient states that he is only year for lightheadedness and the hiccups that are bothering him. The patient's daughter had reported that the patient was unable to keep any food or liquid down. The patient does have a chronic cough with occasional production of sputum. Colored sputum is not identifiable as the patient is blind. He evidently reported some shortness of breath to the ER staff but denies shortness of breath at the time of my evaluation. The patient's daughter felt that the patient was disoriented today and and tried to go to the wrong door. At the time my evaluation the patient is alert oriented x4. He denies any abdominal pain difficulty swallowing solids or liquids. He denies any heartburn symptoms. His last bowel movement was on the 9th and was normally formed. He reports that his medications for hiccups are not helping. Review of Systems Review of Systems: 12 systems were reviewed with pertinent positives and negatives per HPI. Except as documented in the HPI, all other systems were reviewed and are negative. [facility] Past Medical History Medical History (Updated 08/30/25 @ 05:35 by Esthela Juan DO) Asthma-COPD overlap syndrome Wears hearing aid in both ears Adenomatous colon polyp Hiatal hernia Other osteonecrosis, left femur Other osteonecrosis, right femur Psychogenic polydipsia Erosive esophagitis Anemia of chronic disease Chronic hiccups Hyponatremia Tobacco abuse Normocytic anemia Glaucoma Legally blind. Hyperlipidemia Hypertension Surgical History Surgical History History of enucleation of eye Right, secondary to recurrent infection. Family History Family History Grandparent Acute myocardial infarction Mother Acute myocardial infarction Skin cancer Father Acute myocardial infarction Sibling Cancer Social History Social History (Reviewed 08/30/25 @ 05:16 by SHIREEN Courtney Social History: Surrogate decision maker: Svitlana Hines, . Code status: Full code. Smoking packs per day: 1.5 Smoking cigarettes per day: 30.0 Years smoked: 50 Smoking pack-years: 75.00 Smoking status: Former smoker Tobacco type: cigarettes Second hand tobacco smoke exposure: No Smoking end date: 05/21/20 Alcohol intake: never Substance use: never Substance use type: does not use Lack of Transportation: No Lack of Food: Never True Current Housing: I Have Housing Concerned About Future Housing: No Difficulty Paying Gas/Electric Bills: No Difficulty Paying for Meds: No Currently Unemployed: No Education: Decline to Answer Difficulty w/ Childcare or Family Care: No Living arrangements: with family Additional living arrangements comments: The patient lives with his of 43 years in [place]. He and his had 4 children 1 of which at . His remaining children are healthy. 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 Spiritual care concerns: No Meds Home Medications and Allergies Home Medications ?Medication ?Instructions ?Recorded ?Confirmed ?Type losartan 50 mg tablet 50 mg PO DAILY 03/02/21 08/30/25 History montelukast 10 mg tablet 10 mg PO HS 03/02/21 08/30/25 History pravastatin 80 mg tablet 80 mg PO DAILY 03/02/21 08/30/25 History cholecalciferol (vitamin D3) 25 25 mcg PO DAILY 03/29/21 08/30/25 History mcg (1,000 unit) capsule (Vitamin D3) cyanocobalamin (vitamin B-12) 100 2,000 mcg PO DAILY 03/29/21 08/30/25 History mcg tablet dorzolamide 22.3 mg-timolol 6.8 1 drp LEFT EYE TID 06/29/24 08/30/25 History mg/mL eye drops budesonide-formoterol HFA 80 2 puff inhalation Q12H 12/26/24 08/30/25 History mcg-4.5 mcg/actuation aerosol inhaler gabapentin 300 mg capsule 300 mg PO DAILY 12/26/24 08/30/25 History aspirin 81 mg tablet,delayed 81 mg PO DAILY 03/25/25 08/30/25 History release (Adult Aspirin Regimen) famotidine 20 mg tablet 20 mg PO Q12HR #60 tabs 06/15/25 08/30/25 Rx chlorpromazine 25 mg tablet 25 mg PO Q6H PRN Hiccups #60 tabs 07/27/25 08/30/25 Rx metoclopramide HCl 10 mg tablet 10 mg PO Q6H PRN nausea and 08/27/25 08/30/25 Rx (Reglan) vomiting #14 tabs baclofen 10 mg tablet 10 mg PO Q12H Back pain 08/30/25 08/30/25 History Allergies Allergy/AdvReac Type Severity Reaction Status Date / Time No Known Allergies Allergy Verified 08/30/25 01:49 Vital Signs Vital Signs - 24 hr 08/29/25 19:14 08/29/25 23:27 08/29/25 23:27 Temperature 98.7 F Pulse Rate 100 94 94 Respiratory Rate 18 18 Blood Pressure 144/56 H 139/63 Pulse Oximetry 99 95 Oxygen Delivery Room Air 08/30/25 00:45 08/30/25 00:45 08/30/25 01:44 Temperature 98.2 F Pulse Rate 90 Respiratory Rate 17 Blood Pressure 155/73 H Pulse Oximetry 90 Oxygen Delivery Room Air 08/30/25 04:45 Temperature Pulse Rate 89 Respiratory Rate Blood Pressure Pulse Oximetry Oxygen Delivery Exam Narrative: Weight 70 kg on 24.2 Const: Other: Weight 70 kg BMI 24.2 HENMT: Other: Thin body habitus, chronically ill-appearing, sits up in bed unassisted Eyes: Other: Chronic low patient be bilateral eyes with sunken eyes Neck: Other: No lymphadenopathy, no JVD Resp: Other: Clear to auscultation bilaterally, no increased work of breathing Cardio: Other: Regular rate, regular rhythm, 2+ bilateral radial and pedal pulses GI: Other: Soft, nontender, nondistended, positive bowel sounds Skin: Other: Generalized pallor, non jaundice Neuro: Other: Alert oriented x4, speech is clear, no facial asymmetry, no localizing neurologic deficits beyond the patient's known blindness and hearing Extrem: Other: No clubbing, cyanosis or edema, moves all extremities Results Labs Labs: Laboratory Tests 08/29/25 19:50 08/30/25 01:01 08/29/25 08/29/25 08/29/25 19:46 19:49 19:50 WBC 11.3 H RBC 3.01 L Hgb 8.7 L Hct 25.4 L MCV 84.4 D MCH 28.9 MCHC 34.3 RDW 13.8 Plt Count 221 MPV 10.9 H Immature Gran % (Auto) 0.4 Neut % (Auto) 87.2 H Lymph % (Auto) 6.8 L [place] % (Auto) 5.0 Eos % (Auto) 0.3 Baso % (Auto) 0.3 Lymph # (Auto) 0.77 L [place] # (Auto) 0.6 Eos # (Auto) 0.0 Baso # (Auto) 0.0 Abs Immat Gran (auto) 0.04 H Absolute Neuts (auto) 9.9 H Absolute Nucleated RBC 0.000 Nucleated RBC % 0.0 PT 13.2 INR 1.0 APTT 36.9 H Sodium 116 L* Potassium 4.3 Chloride 86 L Carbon Dioxide 21 L Anion Gap 9 BUN 6 L D Creatinine 0.76 Estim Creat Clear Calc 81 Estimated GFR > 60 Glucose 123 H Serum Osmolality Pending Calcium 9.4 Phosphorus Cancelled 3.2 Magnesium 1.7 Total Bilirubin 0.5 AST 24 ALT 11 Alkaline Phosphatase 62 Total Creatine Kinase Cancelled 112 Troponin I < 0.012 NT-Pro-B Natriuret Pep 967 H Total Protein 7.1 Albumin 4.0 Lipase 62 TSH (Reflex) 1.150 Urine Color Yellow Urine Appearance Clear Urine pH 7.0 Ur Specific [place] 1.001 Urine Protein Negative Urine Glucose (UA) Negative Urine Ketones Negative Ur Blood (Man) Negative Urine Nitrate Negative Urine Bilirubin Negative Urine Urobilinogen 0.2 Leukocyte Esterase Rfl Negative Urine Opiates Screen Negative Urine Methadone Screen Negative Ur Barbiturates Screen Negative Ur Phencyclidine Scrn Negative Ur Amphetamine Screen Negative U Benzodiazepines Scrn Negative Urine Cocaine Screen Negative U Cannabinoids Screen Negative Ethyl Alcohol < 10 Influenza A (RT-PCR) Negative Influenza B (RT-PCR) Negative RSV (RT-PCR) Negative SARS-CoV-2 RNA (RT-PCR) Negative 08/29/25 08/30/25 08/30/25 22:49 00:12 01:01 WBC RBC Hgb Hct MCV MCH MCHC RDW Plt Count MPV Immature Gran % (Auto) Neut % (Auto) Lymph % (Auto) [place] % (Auto) Eos % (Auto) Baso % (Auto) Lymph # (Auto) [place] # (Auto) Eos # (Auto) Baso # (Auto) Abs Immat Gran (auto) Absolute Neuts (auto) Absolute Nucleated RBC Nucleated RBC % PT INR APTT Sodium 121 L 123 L Potassium 4.4 4.6 Chloride 92 L 91 L Carbon Dioxide 23 25 Anion Gap 6 7 BUN 5 L 5 L Creatinine 0.74 0.79 Estim Creat Clear Calc 83 78 Estimated GFR > 60 > 60 Glucose 124 H 127 H Serum Osmolality Calcium 9.5 9.4 Phosphorus Magnesium Total Bilirubin AST ALT Alkaline Phosphatase Total Creatine Kinase Troponin I Cancelled NT-Pro-B Natriuret Pep Total Protein Albumin Lipase TSH (Reflex) Urine Color Urine Appearance Urine pH Ur Specific [place] Urine Protein Urine Glucose (UA) Urine Ketones Ur Blood (Man) Urine Nitrate Urine Bilirubin Urine Urobilinogen Leukocyte Esterase Rfl Urine Opiates Screen Urine Methadone Screen Ur Barbiturates Screen Ur Phencyclidine Scrn Ur Amphetamine Screen U Benzodiazepines Scrn Urine Cocaine Screen U Cannabinoids Screen Ethyl Alcohol Influenza A (RT-PCR) Influenza B (RT-PCR) RSV (RT-PCR) SARS-CoV-2 RNA (RT-PCR) Impressions Head CT 08/29/25 20:53 IMPRESSION: 1. No acute findings in the limited noncontrast CT head. Chest/Abdomen/Pelvis CTA 08/29/25 20:55 IMPRESSION: 1. No significant acute pulmonary findings. Minimal platelike atelectasis of left lung base. 2. No angiographic evidence of pulmonary embolus. Thoracic aorta shows no acute findings. 3. Significant irregular circumferential wall thickening of the distal esophagus with evidence of obstruction of the distal esophagus. Hiatus hernia. 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 Correlation with upper endoscopy is recommended. 4. No definite acute findings in the upper abdomen and pelvis. Suboptimal visualization due to multiple artifacts. Quality VTE Prophylaxis VTE prophylaxis: mechanical ordered (SCDs) Assessment and Plan Assessment and plan (1) Acute hyponatremia: Code(s): E87.1 - Hypo-osmolality and hyponatremia Status: Acute (2) Hiccup: Code(s): R06.6 - Hiccough Status: Acute (3) Psychogenic polydipsia: Code(s): R63.1 - Polydipsia; F54 - Psychological and behavioral factors associated with disorders or diseases classified elsewhere Status: Acute (4) Esophageal thickening: Code(s): K22.89 - Other specified disease of esophagus Status: Acute (5) Esophageal obstruction: Code(s): K22.2 - Esophageal obstruction Status: Acute (6) Hiatal hernia: Code(s): K44.9 - Diaphragmatic hernia without obstruction or gangrene Status: Acute Plan Patient has acute on chronic hyponatremia recurrent in nature due to psychogenic polydipsia associated with chronic intractable hiccups. Patient will be placed on 2 L fluid restriction and started on maintenance IV fluids given that he was initially NPO. Patient CT demonstrated esophageal thickening with evidence of possible esophageal obstruction. And the patient had initially reported intractable vomiting but denies sensation of GERD and has not had any further vomiting since admission. The patient had a CT scan couple of months ago that demonstrate some mild esophageal thickening but no evidence of obstruction but imaging was limited due to motion artifact. The patient is insistent that he has not been having difficulty swallowing he has only vomiting because he was drinking large amounts of fluid to try to treat his hiccups. Will advance the patient's diet as tolerated to regular diet and will continue fluid restriction of 2 L. The patient's sodium has trended upward rapidly which is the patient's usual pattern. Will change the patient's fluids to D5W and will repeat BMP in 4 hours. The patient had been prescribed famotidine in a June but patient states that he has not been taking the famotidine. Will place patient on Protonix IV push b.i.d.. GI has been consulted. Given his intractable hiccups will increase the patient's Thorazine to 50 mg q.6. Patient is already on gabapentin and baclofen for back pain. He may benefit from increased dose of these medications long as they do not affect his mentation are make him increasingly confused. Will hold off on increasing the dose of these medications currently but he may benefit from increase in the future if clinically warranted/tolerated. Patient's home medications have been reviewed and reconciled resumed as clinically appropriate and indicated. Patient has been admitted as observation status. MEDICAL DECISION MAKING NARRATIVE -Spoke with the ED provider in detail regarding patient's evaluation, workup and management -Patient seen and examined at bedside -Collaborated with patient's nurse at the bedside in detail and addressed all concerns -Labs, electrolytes, radiology, investigations and test results personally reviewed and interpreted unless otherwise specified -ED/Consult/Nursing/Ancilliary notes on the chart reviewed and appreciated -applicable past medical records and labs were reviewed and unless stated otherwise. -Spoke with patient at bedside and diagnosis, plan of care was discussed and questions answered. Hospitalist MIPS Advance Care Plan I have confirmed that the patient's Advanced Care Plan is present, code status is documented, or surrogate decision maker is listed in patient medical record.: Yes Medication Reconciliation I have utilized all available resources to obtain, update and review the patients current medications (includes all prescriptions, OTC, herbals, cannabis, and nutritional supplements).: Yes
[2025-08-30 06:57] LABS: Hematocrit 27.9 % (42.0-52.0); Hemoglobin 9.3 g/dL (14.0-18.0); Mean Corpuscular HGB Conc 33.3 g/dl (32-36); Mean Corpuscular Hemoglobin 29.1 pg (26-34); Mean Corpuscular Volume 87.2 fl (80-100); Platelet Count Result 214 k/mm3 (150-375); Red Blood Count 3.20 M/mm3 (4.6-6.20); White Blood Count 5.6 K/mm3 (4.5-10.0)
[2025-08-30] MEDS: FLUTICASONE/SALMETEROL 45-21 MCG INHALER 1 PUFF 2 PUFF INHALATION ×2 (07:11→20:01)
[2025-08-30 07:25] LABS: Anion Gap 6 mmol/L (4-12); Blood Urea Nitrogen 5 mg/dL (9-20); Calcium 9.5 mg/dL (8.4-10.2); Carbon Dioxide 25 mmol/L (22-30); Chloride 97 mmol/L (98-107); Estimated CRCL calculation 82 ml/min; Estimated Glomerular Filt Rate > 60; Glucose 124 mg/dL (65-110); Potassium 4.4 mmol/L (3.4-5.0); Sodium 128 mmol/L (137-145)
[2025-08-30] MEDS: DORZOLAMIDE/TIMOLOL OPHTH SOL 10 ML BOTTLE 1 DROP LEFT EYE ×3 (08:22→17:38)
[2025-08-30] MEDS: PANTOPRAZOLE SODIUM IV 40 MG VIAL IV PUSH ×2 (08:22→17:39)
--- NOTE | 2025-08-30 09:51 | PC.NURSE ---
Patient to GI lab per wheelchair.
[2025-08-30] MEDS: LACTATED RINGERS 1,000 ML 150 ML IV CONT (10:08)
--- NOTE | 2025-08-30 10:18 | WPDANESEPPF ---
Anes - Initial Pre Proc Eval Procedure: Operation Date: 08/30/25 15:00 Proposed Procedures p Esophagogastroduodenoscopy - Jame Mitchell MD Date/Time: 08/30/25 10:18 Surgeon: Esthela Juan DO Pre Op Diagnosis: Hyponatremia Patient Data Age: 64 Gender: M Height: 1.7 m Weight: 70 kg Last Vital Signs Temp 97.9 F 08/30/25 10:06 Pulse 77 08/30/25 10:06 Resp 20 08/30/25 10:06 BP 142/67 H 08/30/25 10:06 Pulse Ox 100 08/30/25 10:06 O2 Del Method Room Air 08/30/25 10:06 Allergies Allergy/AdvReac Type Severity Reaction Status Date / Time No Known Allergies Allergy Verified 08/30/25 10:05 Home Medications ?Medication ?Instructions ?Recorded ?Confirmed ?Type losartan 50 mg tablet 50 mg PO DAILY 03/02/21 08/30/25 History montelukast 10 mg tablet 10 mg PO HS 03/02/21 08/30/25 History pravastatin 80 mg tablet 80 mg PO DAILY 03/02/21 08/30/25 History cholecalciferol (vitamin D3) 25 25 mcg PO DAILY 03/29/21 08/30/25 History mcg (1,000 unit) capsule (Vitamin D3) cyanocobalamin (vitamin B-12) 100 2,000 mcg PO DAILY 03/29/21 08/30/25 History mcg tablet dorzolamide 22.3 mg-timolol 6.8 1 drp LEFT EYE TID 06/29/24 08/30/25 History mg/mL eye drops budesonide-formoterol HFA 80 2 puff inhalation Q12H 12/26/24 08/30/25 History mcg-4.5 mcg/actuation aerosol inhaler gabapentin 300 mg capsule 300 mg PO DAILY 12/26/24 08/30/25 History aspirin 81 mg tablet,delayed 81 mg PO DAILY 03/25/25 08/30/25 History release (Adult Aspirin Regimen) famotidine 20 mg tablet 20 mg PO Q12HR #60 tabs 06/15/25 08/30/25 Rx chlorpromazine 25 mg tablet 25 mg PO Q6H PRN Hiccups #60 tabs 07/27/25 08/30/25 Rx metoclopramide HCl 10 mg tablet 10 mg PO Q6H PRN nausea and 08/27/25 08/30/25 Rx (Reglan) vomiting #14 tabs baclofen 10 mg tablet 10 mg PO Q12H Back pain 08/30/25 08/30/25 History Laboratory Tests 08/29/20 08/29/25 08/29/25 19:50 19:46 19:49 WBC RBC Hgb Hct MCV MCH MCHC RDW Plt Count MPV Immature Gran % (Auto) Neut % (Auto) Lymph % (Auto) [place] % (Auto) Eos % (Auto) Baso % (Auto) Lymph # (Auto) [place] # (Auto) Eos # (Auto) Baso # (Auto) Abs Immat Gran (auto) Absolute Neuts (auto) Absolute Nucleated RBC Nucleated RBC % PT INR APTT Sodium Potassium Chloride Carbon Dioxide Anion Gap BUN Creatinine Estim Creat Clear Calc Estimated GFR Glucose Serum Osmolality Pending Calcium Phosphorus Cancelled Magnesium Total Bilirubin AST ALT Alkaline Phosphatase Total Creatine Kinase Cancelled Troponin I NT-Pro-B Natriuret Pep Total Protein Albumin Lipase TSH (Reflex) Urine Color Yellow (Yellow) Urine Appearance Clear (Clear) Urine pH 7.0 (5.0-9.0) Ur Specific [place] 1.001 (1.001-1.035) Urine Protein Negative mg/dL (Negative) Urine Glucose (UA) Negative mg/dL (Negative) Urine Ketones Negative mg/dL (Negative) Ur Blood (Man) Negative (Negative) Urine Nitrate Negative (Negative) Urine Bilirubin Negative (Negative) Urine Urobilinogen 0.2 mg/dL (<2.0) Leukocyte Esterase Rfl Negative [place]/UL (Negative) Urine Opiates Screen Negative (Negative) Urine Methadone Screen Negative (Negative) Ur Barbiturates Screen Negative (Negative) Ur Phencyclidine Scrn Negative (Negative) Ur Amphetamine Screen Negative (Negative) U Benzodiazepines Scrn Negative (Negative) Urine Cocaine Screen Negative (Negative) U Cannabinoids Screen Negative (Negative) Ethyl Alcohol < 10 mg/dL (<10) Influenza A (RT-PCR) Negative (Negative) Influenza B (RT-PCR) Negative (Negative) RSV (RT-PCR) Negative (Negative) SARS-CoV-2 RNA (RT-PCR) Negative (Negative) 08/29/25 08/29/25 08/30/25 19:50 22:49 00:12 WBC 11.3 H K/mm3 (4.5-10.0) RBC 3.01 L M/mm3 (4.6-6.20) Hgb 8.7 L g/dL (14.0-18.0) Hct 25.4 L % (42.0-52.0) MCV 84.4 D fl (80-100) MCH 28.9 pg (26-34) MCHC 34.3 g/dl (32-36) RDW 13.8 % (11.5-14.5) Plt Count 221 k/mm3 (150-375) MPV 10.9 H fl (7.4-10.4) Immature Gran % (Auto) 0.4 % (0-0.5) Neut % (Auto) 87.2 H % (45.5-73.1) Lymph % (Auto) 6.8 L % (18.3-44.2) [place] % (Auto) 5.0 % (2.6-8.5) Eos % (Auto) 0.3 % (0-4.4) Baso % (Auto) 0.3 % (0.2-1.2) Lymph # (Auto) 0.77 L K/mm3 (0.9-3.2) [place] # (Auto) 0.6 K/mm3 (0.1-0.6) Eos # (Auto) 0.0 K/mm3 (0-0.3) Baso # (Auto) 0.0 K/mm3 (0.0-0.1) Abs Immat Gran (auto) 0.04 H K/mm3 (0.00-0.031) Absolute Neuts (auto) 9.9 H K/mm3 (1.3-6.7) Absolute Nucleated RBC 0.000 K/mm3 (0.0-0.012) Nucleated RBC % 0.0 % (0.0-0.2) PT 13.2 Seconds (11.1-14.7) INR 1.0 APTT 36.9 H Seconds (22.3-36.8) Sodium 116 L* mmol/L 121 L mmol/L (137-145) (137-145) Potassium 4.3 mmol/L 4.4 mmol/L (3.4-5.0) (3.4-5.0) Chloride 86 L mmol/L 92 L mmol/L (98-107) (98-107) Carbon Dioxide 21 L mmol/L 23 mmol/L (22-30) (22-30) Anion Gap 9 mmol/L 6 mmol/L (4-12) (4-12) BUN 6 L D mg/dL 5 L mg/dL (9-20) (9-20) Creatinine 0.76 mg/dL 0.74 mg/dL (0.7-1.3) (0.7-1.3) Estim Creat Clear Calc 81 ml/min 83 ml/min Estimated GFR > 60 > 60 (59 - ) (59 - ) Glucose 123 H mg/dL 124 H mg/dL (65-110) (65-110) Serum Osmolality Cancelled Calcium 9.4 mg/dL 9.5 mg/dL (8.4-10.2) (8.4-10.2) Phosphorus 3.2 mg/dL (2.5-4.5) Magnesium 1.7 mg/dL (1.6-2.3) Total Bilirubin 0.5 mg/dL (0.2-1.3) AST 24 U/L (17-59) ALT 11 U/L (6-50) Alkaline Phosphatase 62 U/L (38-126) Total Creatine Kinase 112 U/L (55-170) Troponin I < 0.012 ng/mL Cancelled (0.000-0.034) NT-Pro-B Natriuret Pep 967 H pg/mL (19.9-100) Total Protein 7.1 g/dL (6.3-8.2) Albumin 4.0 g/dL (3.5-5.1) Lipase 62 U/L (23-300) TSH (Reflex) 1.150 uIU/mL (0.465-4.68) Urine Color Urine Appearance Urine pH Ur Specific [place] Urine Protein Urine Glucose (UA) Urine Ketones Ur Blood (Man) Urine Nitrate Urine Bilirubin Urine Urobilinogen Leukocyte Esterase Rfl Urine Opiates Screen Urine Methadone Screen Ur Barbiturates Screen Ur Phencyclidine Scrn Ur Amphetamine Screen U Benzodiazepines Scrn Urine Cocaine Screen U Cannabinoids Screen Ethyl Alcohol Influenza A (RT-PCR) Influenza B (RT-PCR) RSV (RT-PCR) SARS-CoV-2 RNA (RT-PCR) 08/30/25 08/30/25 01:01 06:50 WBC 5.6 K/mm3 (4.5-10.0) RBC 3.20 L M/mm3 (4.6-6.20) Hgb 9.3 L g/dL (14.0-18.0) Hct 27.9 L % (42.0-52.0) MCV 87.2 fl (80-100) MCH 29.1 pg (26-34) MCHC 33.3 g/dl (32-36) RDW 14.2 % (11.5-14.5) Plt Count 214 k/mm3 (150-375) MPV 10.6 H fl (7.4-10.4) Immature Gran % (Auto) Neut % (Auto) Lymph % (Auto) [place] % (Auto) Eos % (Auto) Baso % (Auto) Lymph # (Auto) [place] # (Auto) Eos # (Auto) Baso # (Auto) Abs Immat Gran (auto) Absolute Neuts (auto) Absolute Nucleated RBC Nucleated RBC % PT INR APTT Sodium 123 L mmol/L 128 L mmol/L (137-145) (137-145) Potassium 4.6 mmol/L 4.4 mmol/L (3.4-5.0) (3.4-5.0) Chloride 91 L mmol/L 97 L mmol/L (98-107) (98-107) Carbon Dioxide 25 mmol/L 25 mmol/L (22-30) (22-30) Anion Gap 7 mmol/L 6 mmol/L (4-12) (4-12) BUN 5 L mg/dL 5 L mg/dL (9-20) (9-20) Creatinine 0.79 mg/dL 0.75 mg/dL (0.7-1.3) (0.7-1.3) Estim Creat Clear Calc 78 ml/min 82 ml/min Estimated GFR > 60 > 60 (59 - ) (59 - ) Glucose 127 H mg/dL 124 H mg/dL (65-110) (65-110) Serum Osmolality Calcium 9.4 mg/dL 9.5 mg/dL (8.4-10.2) (8.4-10.2) Phosphorus Magnesium Total Bilirubin AST ALT Alkaline Phosphatase Total Creatine Kinase Troponin I NT-Pro-B Natriuret Pep Total Protein Albumin Lipase TSH (Reflex) Urine Color Urine Appearance Urine pH Ur Specific [place] Urine Protein Urine Glucose (UA) Urine Ketones Ur Blood (Man) Urine Nitrate Urine Bilirubin Urine Urobilinogen Leukocyte Esterase Rfl Urine Opiates Screen Urine Methadone Screen Ur Barbiturates Screen Ur Phencyclidine Scrn Ur Amphetamine Screen U Benzodiazepines Scrn Urine Cocaine Screen U Cannabinoids Screen Ethyl Alcohol Influenza A (RT-PCR) Influenza B (RT-PCR) RSV (RT-PCR) SARS-CoV-2 RNA (RT-PCR) Patient hx anesthesia problems: none Family hx anesthesia problems: none Results Review: All pre-operative results and documents have been reviewed as part of the pre-operative evaluation. [facility] Past Medical History Medical History (Updated 08/30/25 @ 05:35 by Esthela Juan DO) Asthma-COPD overlap syndrome Wears hearing aid in both ears Adenomatous colon polyp Hiatal hernia Other osteonecrosis, left femur Other osteonecrosis, right femur Psychogenic polydipsia Erosive esophagitis Anemia of chronic disease Chronic hiccups Hyponatremia Tobacco abuse Normocytic anemia Glaucoma Legally blind. Hyperlipidemia Hypertension Surgical History Surgical History History of enucleation of eye Right, secondary to recurrent infection. Family History Family History Grandparent Acute myocardial infarction Mother Acute myocardial infarction Skin cancer Father Acute myocardial infarction Sibling Cancer Social History Social History Social History: Surrogate decision maker: Svitlana Hines, . Code status: Full code. Smoking packs per day: 1.5 Smoking cigarettes per day: 30.0 Years smoked: 50 Smoking pack-years: 75.00 Smoking status: Former smoker Tobacco type: cigarettes Second hand tobacco smoke exposure: No Smoking end date: 05/21/20 Alcohol intake: never Substance use: never Substance use type: does not use Lack of Transportation: No Lack of Food: Never True Current Housing: I Have Housing Concerned About Future Housing: No Difficulty Paying Gas/Electric Bills: No Difficulty Paying for Meds: No Currently Unemployed: No Education: Decline to Answer Difficulty w/ Childcare or Family Care: No Living arrangements: with family Additional living arrangements comments: The patient lives with his of [address] He and his had 4 children 1 of which at . His remaining children are healthy. 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 Spiritual care concerns: No Anes - Eval Final PreProcedure Day of Procedure 08/30/25 10:18 Patient weight: normal Heart: regular rate and rhythm Lungs: clear to auscultation Airway: Mallampati scale class II Neurological: alert and oriented Last oral intake: >/= 8 hours ASA classification: III Emergent: no Anesthetic plan: proceed Anesthesia type and monitoring: general GIVS and standard monitoring Results Review: All pre-operative results and documents have been reviewed as part of the pre-operative evaluation. Informed Consent: The patient's anesthetic plan and its attendant risks and benefits were discussed with the patient/family/POA. Questions were solicited and answers provided to the satisfaction of the patient/family/POA.
--- NOTE | 2025-08-30 10:40 | S_PTH ---
PATIENT: Mark Hines LOC: [id number] U#:[id number] AGE/SX: 64/M ROOM: 348 RE08/30/[address]: Jose White MD : 1960 BED: 01 DIS: 09/01/2025 SPEC #: [id number] RECD: 08/30/25 11:59 STATUS: BERNABE HAYES #: [id number] SHAHEEN: 08/30/25 10:[address]: Jame Mitchell DEPT: [facility] Surgical RECD BY: Eva Morales ENTERED: 08/30/25 12:00 SP TYPE: Surgical OTHR DR: DO Nuris Courtney, PA Tissues: A - Gastric Biopsy B - Esophageal Biopsy Procedures: [place] Stain Hematoxylin and Eosin Stain Gross and Microscopic Level 4 H.Pylori
--- NOTE | 2025-08-30 10:47 | WPDGICN ---
Assessment and Plan Assessment and plan (1) Dysphagia: Code(s): R13.10 - Dysphagia, unspecified Status: Acute Assessment and Plan: will assess with egd, last time 2020 showed resolution of previous severe erosive esophagitis. I wonder if he is still taking ppi differential erosive esophagitis again, stricture or even malignancy continue with ppi for now more recommendations after egd (2) Erosive esophagitis: Code(s): K22.10 - Ulcer of esophagus without bleeding Status: Acute (3) Nausea and vomiting: Qualifiers: Vomiting type: unspecified Qualified Code(s): R11.2 - Nausea with vomiting, unspecified Code(s): R11.2 - Nausea with vomiting, unspecified Status: Resolved Assessment and Plan: with dysphagia (4) Hyponatremia: Code(s): E87.1 - Hypo-osmolality and hyponatremia Status: Acute (5) Psychogenic polydipsia: Code(s): R63.1 - Polydipsia; F54 - Psychological and behavioral factors associated with disorders or diseases classified elsewhere Status: Acute (6) Chronic hiccups: Code(s): R06.6 - Hiccough Status: Acute (7) Asthma-COPD overlap syndrome: Code(s): J44.9 - Chronic obstructive pulmonary disease, unspecified Status: Acute (8) Abnormal CT scan, esophagus: Code(s): R93.3 - Abnormal findings on diagnostic imaging of other parts of digestive tract Status: Acute GI Consult Note Consult date/time: 08/30/25 10:47 Reason for consult: dysphagia, abnormal esophagus in ct scan HPI: Mark Hines is a 64 year old male who is known to us with reflux esophagitis (03/2021 with severe esophagitis, after ppi treatment repeat egd 06/2021 with healing, bx without malignancy), also recurrent hyponatremia due to psychogenic polydipsia associated with chronic hiccups, COPD, essential hypertension, blindness due to glaucoma, chronic hearing loss. He came to ER with recurrent symptoms of lightheadedness and nausea, he is not best historian and used also records to gather more information. The patient's daughter reported to staff that the patient was unable to keep any food or liquid down. The patient does have a chronic cough with occasional production of sputum. CT scan reviewed, no significant acute pulmonary findings. No angiographic evidence of pulmonary embolus. Thoracic aorta shows no acute findings. Significant irregular circumferential wall thickening of the distal esophagus with evidence of obstruction of the distal esophagus. Hiatus hernia. 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 Correlation with upper endoscopy is recommended. Review of Systems Constitutional: Constitutional: Denies chills Eyes: Comments: blind ENT: Denies Normal hearing present Cardiovascular: Cardiovascular: Denies chest pain Respiratory: Respiratory: Reports cough Gastrointestinal: Gastrointestinal: Reports nausea Genitourinary: Genitourinary: Denies flank pain Musculoskeletal: Musculoskeletal: Denies neck pain Integumentary/Breasts: Skin/Breast: Denies rash Neurologic: Denies Abnormal speech present Psychiatric: Psychiatric: Denies homicidal ideation [facility] Past Medical History Medical History (Updated 08/30/25 @ 15:13 by Jame Mitchell MD) Abnormal CT scan, esophagus Dysphagia Asthma-COPD overlap syndrome Wears hearing aid in both ears Adenomatous colon polyp Hiatal hernia Other osteonecrosis, left femur Other osteonecrosis, right femur Psychogenic polydipsia Erosive esophagitis Anemia of chronic disease Chronic hiccups Hyponatremia Tobacco abuse Normocytic anemia Glaucoma Legally blind. Hyperlipidemia Hypertension Surgical History Surgical History History of enucleation of eye Right, secondary to recurrent infection. Family History Family History Grandparent Acute myocardial infarction Mother Acute myocardial infarction Skin cancer Father Acute myocardial infarction Sibling Cancer Social History Social History Social History: Surrogate decision maker: Svitlana Hines, . Code status: Full code. Smoking packs per day: 1.5 Smoking cigarettes per day: 30.0 Years smoked: 50 Smoking pack-years: 75.00 Smoking status: Former smoker Tobacco type: cigarettes Second hand tobacco smoke exposure: No Smoking end date: 05/21/20 Alcohol intake: never Substance use: never Substance use type: does not use Lack of Transportation: No Lack of Food: Never True Current Housing: I Have Housing Concerned About Future Housing: No Difficulty Paying Gas/Electric Bills: No Difficulty Paying for Meds: No Currently Unemployed: No Education: Decline to Answer Difficulty w/ Childcare or Family Care: No Living arrangements: with family Additional living arrangements comments: The patient lives with his of 43 years in [place]. He and his had 4 children 1 of which at . His remaining children are healthy. 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 Spiritual care concerns: No Meds Home Medications and Allergies Home Medications ?Medication ?Instructions ?Recorded ?Confirmed ?Type losartan 50 mg tablet 50 mg PO DAILY 03/02/21 08/30/25 History montelukast 10 mg tablet 10 mg PO HS 03/02/21 08/30/25 History pravastatin 80 mg tablet 80 mg PO DAILY 03/02/21 08/30/25 History cholecalciferol (vitamin D3) 25 25 mcg PO DAILY 03/29/21 08/30/25 History mcg (1,000 unit) capsule (Vitamin D3) cyanocobalamin (vitamin B-12) 100 2,000 mcg PO DAILY 03/29/21 08/30/25 History mcg tablet dorzolamide 22.3 mg-timolol 6.8 1 drp LEFT EYE TID 06/29/24 08/30/25 History mg/mL eye drops budesonide-formoterol HFA 80 2 puff inhalation Q12H 12/26/24 08/30/25 History mcg-4.5 mcg/actuation aerosol inhaler gabapentin 300 mg capsule 300 mg PO DAILY 12/26/24 08/30/25 History aspirin 81 mg tablet,delayed 81 mg PO DAILY 03/25/25 08/30/25 History release (Adult Aspirin Regimen) famotidine 20 mg tablet 20 mg PO Q12HR #60 tabs 06/15/25 08/30/25 Rx chlorpromazine 25 mg tablet 25 mg PO Q6H PRN Hiccups #60 tabs 07/27/25 08/30/25 Rx metoclopramide HCl 10 mg tablet 10 mg PO Q6H PRN nausea and 08/27/25 08/30/25 Rx (Reglan) vomiting #14 tabs baclofen 10 mg tablet 10 mg PO Q12H Back pain 08/30/25 08/30/25 History Allergies Allergy/AdvReac Type Severity Reaction Status Date / Time No Known Allergies Allergy Verified 08/30/25 10:05 Vital Signs Vital Signs - 24 hr 08/29/25 19:14 08/29/25 23:27 08/29/25 23:27 Temperature 98.7 F Pulse Rate 100 94 94 Respiratory Rate 18 18 Blood Pressure 144/56 H 139/63 Pulse Oximetry 99 95 Oxygen Delivery Room Air 08/30/25 00:06 08/30/25 00:45 08/30/25 00:45 Temperature 98.2 F Pulse Rate 88 90 Respiratory Rate 17 Blood Pressure 155/73 H Pulse Oximetry 90 Oxygen Delivery 08/30/25 01:44 08/30/25 04:45 08/30/25 05:28 Temperature 98.2 F Pulse Rate 89 88 Respiratory Rate 18 Blood Pressure 128/68 Pulse Oximetry 99 Oxygen Delivery Room Air 08/30/25 07:14 08/30/25 07:46 08/30/25 07:47 Temperature 97.1 F L 97.1 F L Pulse Rate 98 87 98 Respiratory Rate 18 18 20 Blood Pressure 149/68 H 128/76 Pulse Oximetry 98 99 Oxygen Delivery 08/30/25 07:48 08/30/25 10:06 Temperature 97.1 F L 97.9 F Pulse Rate 99 77 Respiratory Rate 16 20 Blood Pressure 138/76 142/67 H Pulse Oximetry 98 100 Oxygen Delivery Room Air Exam Const: Other: chronically ill appearing HENMT: Face/Nose/Sinus: Normal nares present Eyes: Other: blind Neck: Neck: supple Resp: Effort & Inspection: normal respiratory effort Other: few rhonchi Cardio: Rate: regular rate GI: GI Palp: Yes Soft to palpation and No Tenderness to palpation present (GI) Auscultation: normal bowel sounds Skin: General skin exam: normal color Neuro: Speech: normal speech Extrem: General: normal to inspection Psych: Affect: normal affect Results Labs 08/30/25 06:50 08/30/25 11:22 Labs: Short CBC 08/29/25 08/30/25 Range/Units 19:50 06:50 WBC 11.3 H 5.6 (4.5-10.0) K/mm3 Hgb 8.7 L 9.3 L (14.0-18.0) g/dL Hct 25.4 L 27.9 L (42.0-52.0) % Plt Count 221 214 (150-375) k/mm3 BMP 08/29/25 08/30/25 08/30/25 19:50 00:12 01:01 Sodium 116 L* 121 L 123 L Potassium 4.3 4.4 4.6 Chloride 86 L 92 L 91 L Carbon Dioxide 21 L 23 25 BUN 6 L D 5 L 5 L Creatinine 0.76 0.74 0.79 Glucose 123 H 124 H 127 H Calcium 9.4 9.5 9.4 08/30/25 06:50 Sodium 128 L Potassium 4.4 Chloride 97 L Carbon Dioxide 25 BUN 5 L Creatinine 0.75 Glucose 124 H Calcium 9.5 Cardiac Enzymes 08/29/25 08/29/25 08/29/25 Range/Units 19:49 19:50 22:49 Total Creatine Kinase Cancelled 112 Troponin I < 0.012 Cancelled (0.000-0.034) ng/mL Liver Function 08/29/25 Range/Units 19:50 Total Bilirubin 0.5 (0.2-1.3) mg/dL AST 24 (17-59) U/L ALT 11 (6-50) U/L Alkaline Phosphatase 62 (38-126) U/L Albumin 4.0 (3.5-5.1) g/dL Urine 08/29/25 Range/Units 19:46 Urine Color Yellow (Yellow) Urine Appearance Clear (Clear) Urine pH 7.0 (5.0-9.0) Ur Specific [place] 1.001 (1.001-1.035) Urine Protein Negative (Negative) mg/dL Urine Glucose (UA) Negative (Negative) mg/dL
[2025-08-30] MEDS: GABAPENTIN 300 MG CAPSULE PO (11:21)
[2025-08-30] MEDS: BACLOFEN 10 MG TABLET PO ×2 (11:21→20:58)
[2025-08-30] MEDS: FAMOTIDINE 20 MG TABLET PO ×2 (11:21→20:58)
[2025-08-30] MEDS: CYANOCOBALAMIN 1,000 MCG TABLET 2000 MCG PO (11:21)
[2025-08-30] MEDS: CHOLECALCIFEROL (VITAMIN D3) 25 MCG (1,000 UNITS) TABLET PO (11:21)
[2025-08-30] MEDS: LOSARTAN POTASSIUM 50 MG TABLET PO (11:21)
[2025-08-30] MEDS: SUCRALFATE SUSP 100 MG/ML 10 ML UDC 1000 MG PO ×3 (11:25→20:58)
[2025-08-30 12:02] LABS: Anion Gap 5 mmol/L (4-12); Blood Urea Nitrogen 4 mg/dL (9-20); Calcium 9.5 mg/dL (8.4-10.2); Carbon Dioxide 25 mmol/L (22-30); Chloride 99 mmol/L (98-107); Estimated CRCL calculation 80 ml/min; Estimated Glomerular Filt Rate > 60; Glucose 102 mg/dL (65-110); Potassium 4.6 mmol/L (3.4-5.0); Sodium 129 mmol/L (137-145)
--- NOTE | 2025-08-30 15:13 | PM.IMPN2 ---
Assessment and Plan Assessment and Plan (1) Acute hyponatremia: Code(s): E87.1 - Hypo-osmolality and hyponatremia Status: Acute (2) Hiccup: Code(s): R06.6 - Hiccough Status: Acute (3) Psychogenic polydipsia: Code(s): R63.1 - Polydipsia; F54 - Psychological and behavioral factors associated with disorders or diseases classified elsewhere Status: Acute (4) Esophageal thickening: Code(s): K22.89 - Other specified disease of esophagus Status: Acute (5) Esophageal obstruction: Code(s): K22.2 - Esophageal obstruction Status: Acute (6) Hiatal hernia: Code(s): K44.9 - Diaphragmatic hernia without obstruction or gangrene Status: Acute Plan patient with dysphagia will be seen by GI and is scheduled for EGD, patient also has recurrent hyponatremia 2,2 psychogenic polydipsia associated with chronic hiccups, patient is placed on fluids restriction, will monitor, will follow up on EGD and further recommendation to follow. Patient is blind in both eyes Patient has acute on chronic hyponatremia recurrent in nature due to psychogenic polydipsia associated with chronic intractable hiccups. Patient will be placed on 2 L fluid restriction and started on maintenance IV fluids given that he was initially NPO. Patient CT demonstrated esophageal thickening with evidence of possible esophageal obstruction. And the patient had initially reported intractable vomiting but denies sensation of GERD and has not had any further vomiting since admission. The patient had a CT scan couple of months ago that demonstrate some mild esophageal thickening but no evidence of obstruction but imaging was limited due to motion artifact. The patient is insistent that he has not been having difficulty swallowing he has only vomiting because he was drinking large amounts of fluid to try to treat his hiccups. Will advance the patient's diet as tolerated to regular diet and will continue fluid restriction of 2 L. The patient's sodium has trended upward rapidly which is the patient's usual pattern. Will change the patient's fluids to D5W and will repeat BMP in 4 hours. The patient had been prescribed famotidine in a June but patient states that he has not been taking the famotidine. Will place patient on Protonix IV push b.i.d.. GI has been consulted. Given his intractable hiccups will increase the patient's Thorazine to 50 mg q.6. Patient is already on gabapentin and baclofen for back pain. He may benefit from increased dose of these medications long as they do not affect his mentation are make him increasingly confused. Will hold off on increasing the dose of these medications currently but he may benefit from increase in the future if clinically warranted/tolerated. Patient's home medications have been reviewed and reconciled resumed as clinically appropriate and indicated. Patient has been admitted as observation status. 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 The patient states that he is only year for lightheadedness and the hiccups that are bothering him. The patient's daughter had reported that the patient was unable to keep any food or liquid down. The patient does have a chronic cough with occasional production of sputum. Colored sputum is not identifiable as the patient is blind. He evidently reported some shortness of breath to the ER staff but denies shortness of breath at the time of my evaluation. The patient's daughter felt that the patient was disoriented today and and tried to go to the wrong door. At the time my evaluation the patient is alert oriented x4. He denies any abdominal pain difficulty swallowing solids or liquids. He denies any heartburn symptoms. His last bowel movement was on the 9th and was normally formed. He reports that his medications for hiccups are not helping. patient with dysphagia will be seen by GI and is scheduled for EGD, patient also has recurrent hyponatremia 2,2 psychogenic polydipsia associated with chronic hiccups, patient is placed on fluids restriction, will monitor, will follow up on EGD and further recommendation to follow. Patient is blind in both eyes Review of Systems Review of Systems: 12 systems were reviewed with pertinent positives and negatives per HPI. Except as documented in the HPI, all other systems were reviewed and are negative. Exam Const: Other: Patient is comfortable, NAD HEENT: Patient is blind in both eyes LUNGS:CTA HEART: RR S1S2 ABD: BS+, Soft and nontender Lower extremities: no edema SKIN: nonjaundiced Neuro: grossly intact. Objective Data Vital Signs Vital Signs: Vital Signs - 24 hr 08/29/25 19:14 08/29/25 23:27 08/29/25 23:27 Temperature 37.1 C Pulse Rate 100 94 94 Respiratory Rate 18 18 Blood Pressure 144/56 H 139/63 Pulse Oximetry 99 95 Oxygen Delivery Room Air 08/30/25 00:06 08/30/25 00:45 08/30/25 00:45 Temperature 36.8 C Pulse Rate 88 90 Respiratory Rate 17 Blood Pressure 155/73 H Pulse Oximetry 90 Oxygen Delivery 08/30/25 01:44 08/30/25 04:45 08/30/25 05:28 Temperature 36.8 C Pulse Rate 89 88 Respiratory Rate 18 Blood Pressure 128/68 Pulse Oximetry 99 Oxygen Delivery Room Air 08/30/25 07:14 08/30/25 07:46 08/30/25 07:47 Temperature 36.2 C L 36.2 C L Pulse Rate 98 87 98 Respiratory Rate 18 18 20 Blood Pressure 149/68 H 128/76 Pulse Oximetry 98 99 Oxygen Delivery 08/30/25 07:48 08/30/25 08:22 08/30/25 10:06 Temperature 36.2 C L 36.6 C Pulse Rate 99 77 Respiratory Rate 16 20 Blood Pressure 138/76 142/67 H Pulse Oximetry 98 100 Oxygen Delivery Room Air Room Air 08/30/25 10:42 08/30/25 10:52 08/30/25 11:02 Temperature Pulse Rate 78 76 81 Respiratory Rate 22 H 19 21 H Blood Pressure 78/27 L 104/37 L 115/89 Pulse Oximetry 99 100 100 Oxygen Delivery Room Air Room Air Room Air 08/30/25 14:00 Temperature 37.0 C Pulse Rate 80 Respiratory Rate 20 Blood Pressure 126/66 Pulse Oximetry 98 Oxygen Delivery Intake/Output Intake/Output: Intake & Output 08/27/25 08/28/25 08/29/25 08/30/25 23:59 23:59 23:59 23:59 Intake Total 650 Output Total 3000 Balance -2350 Meds/Results Medications: Active Medications Generic Name Dose Route Start Last Admin Trade Name Freq PRN Reason Stop Dose Admin Baclofen 10 mg 08/30/25 09:00 08/30/25 11:21 Baclofen 10 Mg Tablet PO 10 mg Q12HR PASHA Administration Chlorpromazine HCl 50 mg 08/30/25 02:45 08/30/25 11:22 Chlorpromazine Hcl 25 Mg Tablet PO 50 mg Q6HR PASHA Administration Cyanocobalamin 2,000 mcg 08/30/25 09:00 08/30/25 11:21 Cyanocobalamin 1,000 Mcg Tablet PO 2,000 mcg QAM PASHA Administration Dorzolamide/Timolol 1 drop 08/30/25 09:00 08/30/25 12:45 Dorzolamide/Timolol Ophth Shannon 10 Ml Bottle LEFT EYE 1 drop TID PASHA Administration Famotidine 20 mg 08/30/25 09:00 08/30/25 11:21 Famotidine 20 Mg Tablet PO 20 mg Q12HR PASHA Administration Gabapentin 300 mg 08/30/25 09:00 08/30/25 11:21 Gabapentin 300 Mg Capsule PO 300 mg DAILY PASHA Administration Dextrose 1,000 mls @ 50 mls/hr 08/30/25 02:35 08/30/25 12:45 Dextrose 5% 1,000 Ml IV CONT 50 mls/hr .Q20H PASHA Infusion Lactated Ringer's 1,000 mls @ 150 mls/hr 08/30/25 10:10 08/30/25 11:04 Lr - Lactated Ringers Iv IV CONT Infused .Q6H40M PASHA Infusion Losartan Potassium 50 mg 08/30/25 09:00 08/30/25 11:21 Losartan Potassium 50 Mg Tablet PO 50 mg DAILY PASHA Administration Montelukast Sodium 10 mg 08/30/25 21:00 Montelukast Sodium 10 Mg Tablet PO HS PASHA Pantoprazole Sodium 40 mg 08/30/25 09:00 08/30/25 08:22 Pantoprazole Sodium Iv 40 Mg Vial IV PUSH 40 mg BID PASHA Administration Fluticasone/Salmeterol 2 puff 08/30/25 08:00 08/30/25 07:11 Fluticasone/Salmeterol 45-21 Mcg Inhaler 1 Puff INHALATION 2 puff Q12HRT PASHA Administration Sucralfate 1,000 mg 08/30/25 11:30 08/30/25 11:25 Sucralfate Susp 100 Mg/Ml 10 Ml Udc PO 1,000 mg ACHS PASHA Administration Vitamin D 25 mcg 08/30/25 09:00 08/30/25 11:21 Cholecalciferol (Vitamin D3) 25 Mcg (1,000 Units) Tablet PO 25 mcg DAILY PASHA Administration Radiology Results: ITS Impressions Head CT 08/29/25 20:53 IMPRESSION: 1. No acute findings in the limited noncontrast CT head. Chest/Abdomen/Pelvis CTA 08/29/25 20:55 IMPRESSION: 1. No significant acute pulmonary findings. Minimal platelike atelectasis of left lung base. 2. No angiographic evidence of pulmonary embolus. Thoracic aorta shows no acute findings. 3. Significant irregular circumferential wall thickening of the distal esophagus with evidence of obstruction of the distal esophagus. Hiatus hernia. 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 Correlation with upper endoscopy is recommended. 4. No definite acute findings in the upper abdomen and pelvis. Suboptimal visualization due to multiple artifacts. Labs Labs: Laboratory Results - last 24 hr 08/29/25 08/29/25 08/29/25 19:46 19:49 19:50 WBC 11.3 H RBC 3.01 L Hgb 8.7 L Hct 25.4 L MCV 84.4 D MCH 28.9 MCHC 34.3 RDW 13.8 Plt Count 221 MPV 10.9 H Immature Gran % (Auto) 0.4 Neut % (Auto) 87.2 H Lymph % (Auto) 6.8 L [place] % (Auto) 5.0 Eos % (Auto) 0.3 Baso % (Auto) 0.3 Lymph # (Auto) 0.77 L [place] # (Auto) 0.6 Eos # (Auto) 0.0 Baso # (Auto) 0.0 Abs Immat Gran (auto) 0.04 H Absolute Neuts (auto) 9.9 H Absolute Nucleated RBC 0.000 Nucleated RBC % 0.0 PT 13.2 INR 1.0 APTT 36.9 H Sodium 116 L* Potassium 4.3 Chloride 86 L Carbon Dioxide 21 L Anion Gap 9 BUN 6 L D Creatinine 0.76 Estim Creat Clear Calc 81 Estimated GFR > 60 Glucose 123 H Serum Osmolality Cancelled Calcium 9.4 Phosphorus Cancelled 3.2 Magnesium 1.7 Total Bilirubin 0.5 AST 24 ALT 11 Alkaline Phosphatase 62 Total Creatine Kinase Cancelled 112 Troponin I < 0.012 NT-Pro-B Natriuret Pep 967 H Total Protein 7.1 Albumin 4.0 Lipase 62 TSH (Reflex) 1.150 Urine Color Yellow Urine Appearance Clear Urine pH 7.0 Ur Specific [place] 1.001 Urine Protein Negative Urine Glucose (UA) Negative Urine Ketones Negative Ur Blood (Man) Negative Urine Nitrate Negative Urine Bilirubin Negative Urine Urobilinogen 0.2 Leukocyte Esterase Rfl Negative Urine Opiates Screen Negative Urine Methadone Screen Negative Ur Barbiturates Screen Negative Ur Phencyclidine Scrn Negative Ur Amphetamine Screen Negative U Benzodiazepines Scrn Negative Urine Cocaine Screen Negative U Cannabinoids Screen Negative Ethyl Alcohol < 10 Influenza A (RT-PCR) Negative Influenza B (RT-PCR) Negative RSV (RT-PCR) Negative SARS-CoV-2 RNA (RT-PCR) Negative 08/29/25 08/30/25 08/30/25 22:49 00:12 01:01 WBC RBC Hgb Hct MCV MCH MCHC RDW Plt Count MPV Immature Gran % (Auto) Neut % (Auto) Lymph % (Auto) [place] % (Auto) Eos % (Auto) Baso % (Auto) Lymph # (Auto) [place] # (Auto) Eos # (Auto) Baso # (Auto) Abs Immat Gran (auto) Absolute Neuts (auto) Absolute Nucleated RBC Nucleated RBC % PT INR APTT Sodium 121 L 123 L Potassium 4.4 4.6 Chloride 92 L 91 L Carbon Dioxide 23 25 Anion Gap 6 7 BUN 5 L 5 L Creatinine 0.74 0.79 Estim Creat Clear Calc 83 78 Estimated GFR > 60 > 60 Glucose 124 H 127 H Serum Osmolality Calcium 9.5 9.4 Phosphorus Magnesium Total Bilirubin AST ALT Alkaline Phosphatase Total Creatine Kinase Troponin I Cancelled NT-Pro-B Natriuret Pep Total Protein Albumin Lipase TSH (Reflex) Urine Color Urine Appearance Urine pH Ur Specific [place] Urine Protein Urine Glucose (UA) Urine Ketones Ur Blood (Man) Urine Nitrate Urine Bilirubin Urine Urobilinogen Leukocyte Esterase Rfl Urine Opiates Screen Urine Methadone Screen Ur Barbiturates Screen Ur Phencyclidine Scrn Ur Amphetamine Screen U Benzodiazepines Scrn Urine Cocaine Screen U Cannabinoids Screen Ethyl Alcohol Influenza A (RT-PCR) Influenza B (RT-PCR) RSV (RT-PCR) SARS-CoV-2 RNA (RT-PCR) 08/30/25 08/30/25 06:50 11:22 WBC 5.6 RBC 3.20 L Hgb 9.3 L Hct 27.9 L MCV 87.2 MCH 29.1 MCHC 33.3 RDW 14.2 Plt Count 214 MPV 10.6 H Immature Gran % (Auto) Neut % (Auto) Lymph % (Auto) [place] % (Auto) Eos % (Auto) Baso % (Auto) Lymph # (Auto) [place] # (Auto) Eos # (Auto) Baso # (Auto) Abs Immat Gran (auto) Absolute Neuts (auto) Absolute Nucleated RBC Nucleated RBC % PT INR APTT Sodium 128 L 129 L Potassium 4.4 4.6 Chloride 97 L 99 Carbon Dioxide 25 25 Anion Gap 6 5 BUN 5 L 4 L Creatinine 0.75 0.77 Estim Creat Clear Calc 82 80 Estimated GFR > 60 > 60 Glucose 124 H 102 Serum Osmolality Calcium 9.5 9.5 Phosphorus Magnesium Total Bilirubin AST ALT Alkaline Phosphatase Total Creatine Kinase Troponin I NT-Pro-B Natriuret Pep Total Protein Albumin Lipase TSH (Reflex) Urine Color Urine Appearance Urine pH Ur Specific [place] Urine Protein Urine Glucose (UA) Urine Ketones Ur Blood (Man) Urine Nitrate Urine Bilirubin Urine Urobilinogen Leukocyte Esterase Rfl Urine Opiates Screen Urine Methadone Screen Ur Barbiturates Screen Ur Phencyclidine Scrn Ur Amphetamine Screen U Benzodiazepines Scrn Urine Cocaine Screen U Cannabinoids Screen Ethyl Alcohol Influenza A (RT-PCR) Influenza B (RT-PCR) RSV (RT-PCR) SARS-CoV-2 RNA (RT-PCR)
[2025-08-30 17:14] LABS: Anion Gap 5 mmol/L (4-12); Blood Urea Nitrogen 5 mg/dL (9-20); Calcium 9.6 mg/dL (8.4-10.2); Carbon Dioxide 27 mmol/L (22-30); Chloride 98 mmol/L (98-107); Estimated CRCL calculation 70 ml/min; Estimated Glomerular Filt Rate > 60; Glucose 125 mg/dL (65-110); Potassium 4.5 mmol/L (3.4-5.0); Sodium 130 mmol/L (137-145)
[2025-08-30] MEDS: DEXTROSE 5% 1,000 ML 1,000 ML 50 ML IV CONT (17:36)
[2025-08-30 20:53] LABS: Anion Gap 4 mmol/L (4-12); Blood Urea Nitrogen 9 mg/dL (9-20); Calcium 9.4 mg/dL (8.4-10.2); Carbon Dioxide 26 mmol/L (22-30); Chloride 100 mmol/L (98-107); Estimated CRCL calculation 54 ml/min; Estimated Glomerular Filt Rate > 60; Glucose 120 mg/dL (65-110); Potassium 4.7 mmol/L (3.4-5.0); Sodium 130 mmol/L (137-145)
[2025-08-30] MEDS: MONTELUKAST SODIUM 10 MG TABLET PO (20:58)
[2025-08-31] VITALS (9 sets, daily range): BP systolic 94–106; BP diastolic 50–52; PULSE 75–91; RESP 14–20; TEMP 36.3–36.5; O2SAT 95–100
[2025-08-31] MEDS: SUCRALFATE SUSP 100 MG/ML 10 ML UDC 1000 MG PO ×4 (05:52→22:03)
[2025-08-31] MEDS: FLUTICASONE/SALMETEROL 45-21 MCG INHALER 1 PUFF 2 PUFF INHALATION ×2 (07:48→20:44)
[2025-08-31] MEDS: CHOLECALCIFEROL (VITAMIN D3) 25 MCG (1,000 UNITS) TABLET PO (09:59)
[2025-08-31] MEDS: LOSARTAN POTASSIUM 50 MG TABLET PO (09:59)
[2025-08-31] MEDS: FAMOTIDINE 20 MG TABLET PO ×2 (09:59→22:03)
[2025-08-31] MEDS: CYANOCOBALAMIN 1,000 MCG TABLET 2000 MCG PO (09:59)
[2025-08-31] MEDS: GABAPENTIN 300 MG CAPSULE PO (09:59)
[2025-08-31] MEDS: BACLOFEN 10 MG TABLET PO ×2 (09:59→22:03)
[2025-08-31] MEDS: PANTOPRAZOLE SODIUM IV 40 MG VIAL IV PUSH ×2 (09:59→17:20)
--- NOTE | 2025-08-31 10:43 | WPDANESPN ---
Anes - Prog Note Post-Op Date/Time: 08/31/25 10:43 Cardiovascular status: normal Respiratory status: normal Airway patency: baseline Mental status: baseline Post-Op hydration status: normal Vital Signs: Last Vital Signs Temp 36.3 C L 08/31/25 05:43 Pulse 75 08/31/25 05:43 Resp 18 08/31/25 05:43 BP 94/50 L 08/31/25 05:43 Pulse Ox 95 08/31/25 05:43 O2 Del Method Room Air 08/30/25 20:00 Pain Score (VAS): 1 I/O: Intake & Output 08/30/25 08/31/25 08/31/25 23:59 07:59 15:59 Intake Total 1550 300 240 Balance 1550 300 240 Laboratory Tests 08/30/25 06:50 08/30/25 20:26 08/30/25 08/30/25 08/30/25 11:22 16:52 20:26 Sodium 129 L 130 L 130 L Potassium 4.6 4.5 4.7 Chloride 99 98 100 Carbon Dioxide 25 27 26 Anion Gap 5 5 4 BUN 4 L 5 L 9 Creatinine 0.77 0.89 1.16 Estim Creat Clear Calc 80 70 54 Estimated GFR > 60 > 60 > 60 Glucose 102 125 H 120 H Calcium 9.5 9.6 9.4 Post-procedural complaints: none Patient Feedback: Patient satisfied with anesthetic care.
[2025-08-31] MEDS: DORZOLAMIDE/TIMOLOL OPHTH SOL 10 ML BOTTLE 1 DROP LEFT EYE ×3 (11:38→17:22)
--- NOTE | 2025-08-31 16:06 | PM.IMPN2 ---
Assessment and Plan Assessment and Plan (1) Acute hyponatremia: Code(s): E87.1 - Hypo-osmolality and hyponatremia Status: Acute (2) Hiccup: Code(s): R06.6 - Hiccough Status: Acute (3) Psychogenic polydipsia: Code(s): R63.1 - Polydipsia; F54 - Psychological and behavioral factors associated with disorders or diseases classified elsewhere Status: Acute (4) Esophageal thickening: Code(s): K22.89 - Other specified disease of esophagus Status: Acute (5) Esophageal obstruction: Code(s): K22.2 - Esophageal obstruction Status: Acute (6) Hiatal hernia: Code(s): K44.9 - Diaphragmatic hernia without obstruction or gangrene Status: Acute Plan This 64-year-old male who presents to the ER with recurrent symptoms of lightheadedness and nausea. He also has chronic cups. Patient's daughter reported that patient has been unable to keep any food or liquid down. Patient has chronic cough with occasional production of sputum. He also reported some shortness of breath to the ER staff. Some confusion on admission. His vitals were stable on ED evaluation. Laboratory workup revealed WBC of 11.3 hemoglobin 8.7 platelet count of 221. Sodium was down to 123 potassium 4.6 chloride 91 bicarbonate 25 BUN 5 creatinine 0.7 blood glucose of 127 Laboratory data suggestive of acute on chronic hyponatremia. CT head with no acute findings. CT chest abdomen pelvis angiogram with no acute pulmonary findings. No PE. Thoracic aorta shows no acute finding. Significant irregular circumferential wall thickening of the distal esophagus with evidence of obstruction of the distal esophagus hiatus hernia suspected neoplasm on this esophagus. EGD recommended. No other definitive acute finding in the upper abdomen pelvis noted. GI was consulted. Patient underwent EGD which showed findings of grade 4 reflux esophagitis hiatal hernia and gastritis. Patient continued on Carafate and PPI. Acute on chronic hyponatremia due to psychogenic polydipsia. Admission sodium of 116. Slowly improving up to 130. Recheck and monitor Psychogenic polydipsia associated with chronic hiccups on fluid restriction. Chronic recurrent hiccups on Thorazine gabapentin and baclofen Hypertension Chronic normocytic anemia Legally blind Glaucoma COPD Multiple cystine lever DVT prophylaxis Code status full code Subjective Date/time seen: 08/31/25 16:06 Interval history: Lightheaded and nauseous H&P-Narrative: 64-year-old male who is well-known to the hospitalist service with numerous admissions for recurrent hyponatremia due to psychogenic polydipsia associated with chronic hiccups, COPD, essential hypertension, blindness due to glaucoma, chronic hearing loss and multiple other comorbidities who presented to the ER with recurrent symptoms of lightheadedness and nausea. The patient states that he is only year for lightheadedness and the hiccups that are bothering him. The patient's daughter had reported that the patient was unable to keep any food or liquid down. The patient does have a chronic cough with occasional production of sputum. Colored sputum is not identifiable as the patient is blind. He evidently reported some shortness of breath to the ER staff but denies shortness of breath at the time of my evaluation. The patient's daughter felt that the patient was disoriented today and and tried to go to the wrong door. At the time my evaluation the patient is alert oriented x4. He denies any abdominal pain difficulty swallowing solids or liquids. He denies any heartburn symptoms. His last bowel movement was on the 9th and was normally formed. He reports that his medications for hiccups are not helping. patient with dysphagia will be seen by GI and is scheduled for EGD, patient also has recurrent hyponatremia 2,2 psychogenic polydipsia associated with chronic hiccups, patient is placed on fluids restriction, will monitor, will follow up on EGD and further recommendation to follow. Patient is blind in both eyes 08/31/2025 no overnight events. No new complaints. No chest pain or shortness of breath. Review of Systems Review of Systems: All systems reviewed & are unremarkable except as noted in HPI and below Exam Narrative: Patient is comfortable, NAD HEENT: Patient is blind in both eyes LUNGS:CTA HEART: RR S1S2 ABD: BS+, Soft and nontender Lower extremities: no edema SKIN: nonjaundiced Neuro: grossly intact. Objective Data Vital Signs Vital Signs: Vital Signs - 24 hr 08/30/25 20:00 08/30/25 20:00 08/30/25 20:37 Temperature 97.8 F Pulse Rate 84 81 Respiratory Rate 16 Blood Pressure 94/54 L Pulse Oximetry 98 Oxygen Delivery Room Air Fraction of Inspired Oxygen 08/31/25 00:00 08/31/25 04:00 08/31/25 05:43 Temperature 97.3 F L Pulse Rate 83 76 75 Respiratory Rate 18 Blood Pressure 94/50 L Pulse Oximetry 95 Oxygen Delivery Fraction of Inspired Oxygen 08/31/25 07:48 08/31/25 07:48 08/31/25 08:00 Temperature Pulse Rate 87 87 84 Respiratory Rate 20 20 Blood Pressure Pulse Oximetry 98 Oxygen Delivery Room Air Fraction of Inspired Oxygen 21 08/31/25 09:45 08/31/25 12:00 08/31/25 14:00 Temperature 97.7 F Pulse Rate 76 81 Respiratory Rate 14 Blood Pressure 103/52 L Pulse Oximetry 100 Oxygen Delivery Room Air Fraction of Inspired Oxygen Intake/Output Intake/Output: Intake & Output 08/28/25 08/29/25 08/30/25 08/31/25 23:59 23:59 23:59 23:59 Intake Total 2200 780 Output Total 3650 Balance -1450 780 Meds/Results Medications: Active Medications Generic Name Dose Route Start Last Admin Trade Name Freq PRN Reason Stop Dose Admin Baclofen 10 mg 08/30/25 09:00 08/31/25 09:59 Baclofen 10 Mg Tablet PO 10 mg Q12HR PASHA Administration Chlorpromazine HCl 50 mg 08/30/25 02:45 08/31/25 11:38 Chlorpromazine Hcl 25 Mg Tablet PO 50 mg Q6HR PASHA Administration Cyanocobalamin 2,000 mcg 08/30/25 09:00 08/31/25 09:59 Cyanocobalamin 1,000 Mcg Tablet PO 2,000 mcg QAM PASHA Administration Dorzolamide/Timolol 1 drop 08/30/25 09:00 08/31/25 11:38 Dorzolamide/Timolol Ophth Shannon 10 Ml Bottle LEFT EYE 1 drop TID PASHA Administration Famotidine 20 mg 08/30/25 09:00 08/31/25 09:59 Famotidine 20 Mg Tablet PO 20 mg Q12HR PASHA Administration Gabapentin 300 mg 08/30/25 09:00 08/31/25 09:59 Gabapentin 300 Mg Capsule PO 300 mg DAILY PASHA Administration Dextrose 1,000 mls @ 50 mls/hr 08/30/25 02:35 08/30/25 17:36 Dextrose 5% 1,000 Ml IV CONT 50 mls/hr .Q20H PASHA Administration Losartan Potassium 50 mg 08/30/25 09:00 08/31/25 09:59 Losartan Potassium 50 Mg Tablet PO 50 mg DAILY PASHA Administration Montelukast Sodium 10 mg 08/30/25 21:00 08/30/25 20:58 Montelukast Sodium 10 Mg Tablet PO 10 mg HS PASHA Administration Pantoprazole Sodium 40 mg 08/30/25 09:00 08/31/25 09:59 Pantoprazole Sodium Iv 40 Mg Vial IV PUSH 40 mg BID PASHA Administration Fluticasone/Salmeterol 2 puff 08/30/25 08:00 08/31/25 07:48 Fluticasone/Salmeterol 45-21 Mcg Inhaler 1 Puff INHALATION 2 puff Q12HRT PASHA Administration Sucralfate 1,000 mg 08/30/25 11:30 08/31/25 11:37 Sucralfate Susp 100 Mg/Ml 10 Ml Udc PO 1,000 mg ACHS PASHA Administration Vitamin D 25 mcg 08/30/25 09:00 08/31/25 09:59 Cholecalciferol (Vitamin D3) 25 Mcg (1,000 Units) Tablet PO 25 mcg DAILY PASHA Administration Radiology Results: ITS Impressions Head CT 08/29/25 20:53 IMPRESSION: 1. No acute findings in the limited noncontrast CT head. Chest/Abdomen/Pelvis CTA 08/29/25 20:55 IMPRESSION: 1. No significant acute pulmonary findings. Minimal platelike atelectasis of left lung base. 2. No angiographic evidence of pulmonary embolus. Thoracic aorta shows no acute findings. 3. Significant irregular circumferential wall thickening of the distal esophagus with evidence of obstruction of the distal esophagus. Hiatus hernia. 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 Correlation with upper endoscopy is recommended. 4. No definite acute findings in the upper abdomen and pelvis. Suboptimal visualization due to multiple artifacts. Labs Labs: Laboratory Results - last 24 hr 08/30/25 08/30/25 16:52 20:26 Sodium 130 L 130 L Potassium 4.5 4.7 Chloride 98 100 Carbon Dioxide 27 26 Anion Gap 5 4 BUN 5 L 9 Creatinine 0.89 1.16 Estim Creat Clear Calc 70 54 Estimated GFR > 60 > 60 Glucose 125 H 120 H Calcium 9.6 9.4
--- NOTE | 2025-08-31 16:34 | WPDGIPROGNO ---
Progress Note: A&P Assessment and Plan (1) Ulcerative esophagitis: Code(s): K22.10 - Ulcer of esophagus without bleeding Status: Acute Assessment and Plan: continue medical treatment with ppi twice daily tolerating more diet egd in 4-5 months to assess healing (2) Dysphagia: Code(s): R13.10 - Dysphagia, unspecified Status: Acute (3) Hyponatremia: Code(s): E87.1 - Hypo-osmolality and hyponatremia Status: Acute Assessment and Plan: by medical team (4) Nausea and vomiting: Qualifiers: Vomiting type: unspecified Qualified Code(s): R11.2 - Nausea with vomiting, unspecified Code(s): R11.2 - Nausea with vomiting, unspecified Status: Resolved Assessment and Plan: resolved (5) Glaucoma: Code(s): H40.9 - Unspecified glaucoma Status: Chronic (6) Asthma-COPD overlap syndrome: Code(s): J44.9 - Chronic obstructive pulmonary disease, unspecified Status: Acute (7) Hiccup: Code(s): R06.6 - Hiccough Status: Acute Subjective Date/time seen: 08/31/25 16:34 Interval history: egd with severe ulcerative esophagitis doing better today Review of Systems Review of Systems: All systems reviewed & are unremarkable except as noted in HPI and below Exam Const: Other: chronically ill appearing HENMT: Face/Nose/Sinus: Normal nares present Eyes: Other: blind Neck: Neck: supple Resp: Effort & Inspection: normal respiratory effort Cardio: Rate: regular rate GI: GI Palp: Yes Soft to palpation and No Tenderness to palpation present (GI) Auscultation: normal bowel sounds Skin: General skin exam: normal color Neuro: Speech: normal speech Extrem: General: normal to inspection Psych: Affect: normal affect Objective Data Vital Signs Vital Signs: Vital Signs - 24 hr 08/30/25 20:00 08/30/25 20:00 08/30/25 20:37 Temperature 97.8 F Pulse Rate 84 81 Respiratory Rate 16 Blood Pressure 94/54 L Pulse Oximetry 98 Oxygen Delivery Room Air Fraction of Inspired Oxygen 08/31/25 00:00 08/31/25 04:00 08/31/25 05:43 Temperature 97.3 F L Pulse Rate 83 76 75 Respiratory Rate 18 Blood Pressure 94/50 L Pulse Oximetry 95 Oxygen Delivery Fraction of Inspired Oxygen 08/31/25 07:48 08/31/25 07:48 08/31/25 08:00 Temperature Pulse Rate 87 87 84 Respiratory Rate 20 20 Blood Pressure Pulse Oximetry 98 Oxygen Delivery Room Air Fraction of Inspired Oxygen 21 08/31/25 09:45 08/31/25 12:00 08/31/25 14:00 Temperature 97.7 F Pulse Rate 76 81 Respiratory Rate 14 Blood Pressure 103/52 L Pulse Oximetry 100 Oxygen Delivery Room Air Fraction of Inspired Oxygen Intake/Output Intake/Output: Intake & Output 08/28/25 08/29/25 08/30/25 08/31/25 23:59 23:59 23:59 23:59 Intake Total 2200 1180 Output Total 3650 1350 Balance -1450 -170 Meds/Results Medications: Active Medications Generic Name Dose Route Start Last Admin Trade Name Freq PRN Reason Stop Dose Admin Baclofen 10 mg 08/30/25 09:00 08/31/25 09:59 Baclofen 10 Mg Tablet PO 10 mg Q12HR PASHA Administration Chlorpromazine HCl 50 mg 08/30/25 02:45 08/31/25 11:38 Chlorpromazine Hcl 25 Mg Tablet PO 50 mg Q6HR PASHA Administration Cyanocobalamin 2,000 mcg 08/30/25 09:00 08/31/25 09:59 Cyanocobalamin 1,000 Mcg Tablet PO 2,000 mcg QAM PASHA Administration Dorzolamide/Timolol 1 drop 08/30/25 09:00 08/31/25 11:38 Dorzolamide/Timolol Ophth Shannon 10 Ml Bottle LEFT EYE 1 drop TID PASHA Administration Famotidine 20 mg 08/30/25 09:00 08/31/25 09:59 Famotidine 20 Mg Tablet PO 20 mg Q12HR PASHA Administration Gabapentin 300 mg 08/30/25 09:00 08/31/25 09:59 Gabapentin 300 Mg Capsule PO 300 mg DAILY PASHA Administration Dextrose 1,000 mls @ 50 mls/hr 08/30/25 02:35 08/30/25 17:36 Dextrose 5% 1,000 Ml IV CONT 50 mls/hr .Q20H PASHA Administration Losartan Potassium 50 mg 08/30/25 09:00 08/31/25 09:59 Losartan Potassium 50 Mg Tablet PO 50 mg DAILY PASHA Administration Montelukast Sodium 10 mg 08/30/25 21:00 08/30/25 20:58 Montelukast Sodium 10 Mg Tablet PO 10 mg HS PASHA Administration Pantoprazole Sodium 40 mg 08/30/25 09:00 08/31/25 09:59 Pantoprazole Sodium Iv 40 Mg Vial IV PUSH 40 mg BID PASHA Administration Fluticasone/Salmeterol 2 puff 08/30/25 08:00 08/31/25 07:48 Fluticasone/Salmeterol 45-21 Mcg Inhaler 1 Puff INHALATION 2 puff Q12HRT PASHA Administration Sucralfate 1,000 mg 08/30/25 11:30 08/31/25 11:37 Sucralfate Susp 100 Mg/Ml 10 Ml Udc PO 1,000 mg ACHS PASHA Administration Vitamin D 25 mcg 08/30/25 09:00 08/31/25 09:59 Cholecalciferol (Vitamin D3) 25 Mcg (1,000 Units) Tablet PO 25 mcg DAILY PASHA Administration Radiology Results: ITS Impressions Head CT 08/29/25 20:53 IMPRESSION: 1. No acute findings in the limited noncontrast CT head. Chest/Abdomen/Pelvis CTA 08/29/25 20:55 IMPRESSION: 1. No significant acute pulmonary findings. Minimal platelike atelectasis of left lung base. 2. No angiographic evidence of pulmonary embolus. Thoracic aorta shows no acute findings. 3. Significant irregular circumferential wall thickening of the distal esophagus with evidence of obstruction of the distal esophagus. Hiatus hernia. 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 Correlation with upper endoscopy is recommended. 4. No definite acute findings in the upper abdomen and pelvis. Suboptimal visualization due to multiple artifacts. Labs Labs: Laboratory Results - last 24 hr 08/30/25 08/30/25 16:52 20:26 Sodium 130 L 130 L Potassium 4.5 4.7 Chloride 98 100 Carbon Dioxide 27 26 Anion Gap 5 4 BUN 5 L 9 Creatinine 0.89 1.16 Estim Creat Clear Calc 70 54 Estimated GFR > 60 > 60 Glucose 125 H 120 H Calcium 9.6 9.4
[2025-08-31 17:25] LABS: Anion Gap 2 mmol/L (4-12); Blood Urea Nitrogen 17 mg/dL (9-20); Calcium 9.3 mg/dL (8.4-10.2); Carbon Dioxide 27 mmol/L (22-30); Chloride 103 mmol/L (98-107); Estimated CRCL calculation 49 ml/min; Estimated Glomerular Filt Rate 56; Glucose 111 mg/dL (65-110); Potassium 4.6 mmol/L (3.4-5.0); Sodium 132 mmol/L (137-145)
[2025-08-31] MEDS: MONTELUKAST SODIUM 10 MG TABLET PO (22:03)
[2025-08-31 22:07] LABS: Osmolality, Serum 246 mOsmol/kg (280-301)
[2025-09-01] VITALS: PULSE 85
[2025-09-01 04:00] VITALS: PULSE 82
[2025-09-01 04:54] VITALS: BP 105/55; PULSE 90; RESP 18; TEMP 36.6; O2SAT 97
[2025-09-01] MEDS: SUCRALFATE SUSP 100 MG/ML 10 ML UDC 1000 MG PO ×2 (05:45→12:26)
[2025-09-01 05:52] LABS: Hematocrit 29.6 % (42.0-52.0); Hemoglobin 9.5 g/dL (14.0-18.0); Immature Granulocyte Percent A 0.5 % (0-0.5); Lymphocytes Absolute Auto 1.17 K/mm3 (0.9-3.2); Mean Corpuscular HGB Conc 32.1 g/dl (32-36); Mean Corpuscular Hemoglobin 29.1 pg (26-34); Mean Corpuscular Volume 90.5 fl (80-100); Nucleated Red Blood Cells Absolute Auto 0.000 K/mm3 (0.0-0.012); Nucleated Red Blood Cells Perc 0.0 % (0.0-0.2); Platelet Count Result 246 k/mm3 (150-375); Red Blood Count 3.27 M/mm3 (4.6-6.20); White Blood Count 10.1 K/mm3 (4.5-10.0)
[2025-09-01 06:17] LABS: Alanine Aminotransferase 11 U/L (6-50); Albumin Level 3.7 g/dL (3.5-5.1); Alkaline Phosphatase 57 U/L (38-126); Anion Gap 5 mmol/L (4-12); Aspartate Amino Transferase 21 U/L (17-59); Bilirubin,Total 0.3 mg/dL (0.2-1.3); Blood Urea Nitrogen 20 mg/dL (9-20); Calcium 9.3 mg/dL (8.4-10.2); Carbon Dioxide 25 mmol/L (22-30); Chloride 103 mmol/L (98-107); Estimated CRCL calculation 57 ml/min; Estimated Glomerular Filt Rate > 60; Glucose 110 mg/dL (65-110); Magnesium 2.3 mg/dL (1.6-2.3); Potassium 4.7 mmol/L (3.4-5.0); Sodium 133 mmol/L (137-145); Total Protein 6.6 g/dL (6.3-8.2)
[2025-09-01] MEDS: FLUTICASONE/SALMETEROL 45-21 MCG INHALER 1 PUFF 2 PUFF INHALATION (08:16)
[2025-09-01] MEDS: CHOLECALCIFEROL (VITAMIN D3) 25 MCG (1,000 UNITS) TABLET PO (08:58)
[2025-09-01] MEDS: CYANOCOBALAMIN 1,000 MCG TABLET 2000 MCG PO (08:58)
[2025-09-01] MEDS: GABAPENTIN 300 MG CAPSULE PO (08:59)
[2025-09-01] MEDS: FAMOTIDINE 20 MG TABLET PO (08:59)
[2025-09-01] MEDS: LOSARTAN POTASSIUM 50 MG TABLET PO (08:59)
[2025-09-01] MEDS: DORZOLAMIDE/TIMOLOL OPHTH SOL 10 ML BOTTLE 1 DROP LEFT EYE (08:59)
[2025-09-01] MEDS: BACLOFEN 10 MG TABLET PO (08:59)
[2025-09-01] MEDS: PANTOPRAZOLE SODIUM IV 40 MG VIAL IV PUSH (08:59)
[2025-09-01 09:25] VITALS: PULSE 91
--- NOTE | 2025-09-01 12:42 | P.DS_ITS ---
DS: Admitting Diagnosis Discharge Date 09/01/2025 Admitting Diagnosis Nausea DS: Discharge Diagnosis Discharge Diagnosis (1) Acute hyponatremia: Code(s): E87.1 - Hypo-osmolality and hyponatremia Status: Acute (2) Hiccup: Code(s): R06.6 - Hiccough Status: Acute (3) Psychogenic polydipsia: Code(s): R63.1 - Polydipsia; F54 - Psychological and behavioral factors associated with disorders or diseases classified elsewhere Status: Acute (4) Esophageal thickening: Code(s): K22.89 - Other specified disease of esophagus Status: Acute (5) Esophageal obstruction: Code(s): K22.2 - Esophageal obstruction Status: Acute (6) Hiatal hernia: Code(s): K44.9 - Diaphragmatic hernia without obstruction or gangrene Status: Acute DS: Summary Hospital Course Hospital Course: This 64-year-old male who presents to the ER with recurrent symptoms of lightheadedness and nausea. He also has chronic hiccups Patient's daughter reported that patient has been unable to keep any food or liquid down. Patient has chronic cough with occasional production of sputum. He also reported some shortness of breath to the ER staff. Some confusion on admission. His vitals were stable on ED evaluation. Laboratory workup revealed WBC of 11.3 hemoglobin 8.7 platelet count of 221. Sodium was down to 123 potassium 4.6 chloride 91 bicarbonate 25 BUN 5 creatinine 0.7 blood glucose of 127 Laboratory data suggestive of acute on chronic hyponatremia. CT head with no acute findings. CT chest abdomen pelvis angiogram with no acute pulmonary findings. No PE. Thoracic aorta shows no acute finding. Significant irregular circumferential wall thickening of the distal esophagus with evidence of obstruction of the distal esophagus hiatus hernia suspected neoplasm on this esophagus. EGD recommended. No other definitive acute finding in the upper abdomen pelvis noted. GI was consulted. Patient underwent EGD which showed findings of grade 4 reflux esophagitis hiatal hernia and gastritis. Patient continued on Carafate and PPI. Acute on chronic hyponatremia due to psychogenic polydipsia. Admission sodium of 116. Slowly improving up to 130. Recheck and monitor. Stable for discharge home Psychogenic polydipsia associated with chronic hiccups on fluid restriction. Chronic recurrent hiccups on Thorazine gabapentin and baclofen Hypertension Chronic normocytic anemia Legally blind Glaucoma COPD Multiple cystine lever DVT prophylaxis Code status full code Time Spent with Patient Time attestation: Total time spent providing and/or coordinating discharge services: 35 minutes Exam Narrative: Patient is comfortable, NAD HEENT: Patient is blind in both eyes LUNGS:CTA HEART: RR S1S2 ABD: BS+, Soft and nontender Lower extremities: no edema SKIN: nonjaundiced Neuro: grossly intact. DS: Data Data Completed and Pending Pending studies at discharge: Pending at discharge 08/30/25 10:40 Surgical [PTH] Routine Labs on day of discharge: Labs from last 24 hours 09/01/25 08/31/25 08/29/20 05:41 16:36 19:50 WBC 10.1 H RBC 3.27 L Hgb 9.5 L Hct 29.6 L MCV 90.5 MCH 29.1 MCHC 32.1 RDW 14.9 H Plt Count 246 MPV 10.7 H Immature Gran % (Auto) 0.5 Neut % (Auto) 79.8 H Lymph % (Auto) 11.6 L [place] % (Auto) 5.6 Eos % (Auto) 2.1 Baso % (Auto) 0.4 Lymph # (Auto) 1.17 [place] # (Auto) 0.6 Eos # (Auto) 0.2 Baso # (Auto) 0.0 Abs Immat Gran (auto) 0.05 H Absolute Neuts (auto) 8.1 H Absolute Nucleated RBC 0.000 Nucleated RBC % 0.0 Sodium 133 L 132 L Potassium 4.7 4.6 Chloride 103 103 Carbon Dioxide 25 27 Anion Gap 5 2 L BUN 20 17 Creatinine 1.10 1.29 Estim Creat Clear Calc 57 49 Estimated GFR > 60 56 L Glucose 110 111 H Serum Osmolality 246 L Calcium 9.3 9.3 Magnesium 2.3 Total Bilirubin 0.3 AST 21 ALT 11 Alkaline Phosphatase 57 Total Protein 6.6 Albumin 3.7 Imaging Radiologist's impression: ITS Impressions Head CT 08/29/25 20:53 IMPRESSION: 1. No acute findings in the limited noncontrast CT head. Chest/Abdomen/Pelvis CTA 08/29/25 20:55 IMPRESSION: 1. No significant acute pulmonary findings. Minimal platelike atelectasis of left lung base. 2. No angiographic evidence of pulmonary embolus. Thoracic aorta shows no acute findings. 3. Significant irregular circumferential wall thickening of the distal esophagus with evidence of obstruction of the distal esophagus. Hiatus hernia. 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 Correlation with upper endoscopy is recommended. 4. No definite acute findings in the upper abdomen and pelvis. Suboptimal visualization due to multiple artifacts. Discharge Plan Discharge Attending physician on discharge: Jose White Discharging Clinician: Jose White Anticipated Discharge Date/Time: 09/01/25 12:44 Patient Disposition: Home Activity: as tolerated Diet: regular Patient Instructions: Antibiotic Form Patient Language: Sammarinese Stand Alone Forms: General Discharge Information Follow-up/Referrals: Jame Mitchell MD [Physician, Gastroenterology] - 4 Weeks Celine,TRAVIS Lawler [Primary Care Provider, Unknown] - 1 Week Discharge Medications: New sucralfate 100 mg/mL Suspension 1,000 mg PO ACHS Qty: 300 0RF pantoprazole [Protonix] 40 mg tablet,delayed release (DR/EC) 40 mg PO BID Qty: 60 0RF Continued losartan 50 mg tablet 50 mg PO DAILY pravastatin 80 mg tablet 80 mg PO DAILY montelukast 10 mg tablet 10 mg PO HS dorzolamide-timolol 22.3-6.8 mg/mL drops 1 drp LEFT EYE TID gabapentin 300 mg capsule 300 mg PO DAILY Patient Comments: Pt stated he takes it TID budesonide-formoterol 80-4.5 mcg/actuation HFA aerosol inhaler 2 puff INHALATION Q12H famotidine 20 mg Tablet 20 mg PO Q12HR Qty: 60 0RF metoclopramide HCl [Reglan] 10 mg tablet 10 mg PO Q6H PRN (Reason: nausea and vomiting) Qty: 14 0RF cyanocobalamin (vitamin B-12) 100 mcg Tablet 2,000 mcg PO DAILY Patient Comments: Patient stated he is taking 1000 mcg instead of 2000 mcg cholecalciferol (vitamin D3) [Vitamin D3] 25 mcg (1,000 unit) Capsule 25 mcg PO DAILY aspirin [Adult Aspirin Regimen] 81 mg tablet,delayed release (DR/EC) 81 mg PO DAILY chlorpromazine 25 mg Tablet 25 mg PO Q6H PRN (Reason: Hiccups) Qty: 60 0RF baclofen 10 mg tablet 10 mg PO Q12H Date of admission: 08/30/25 16:56 Primary Care Provider: Celine,Nuris Admitting Provider: Esthela Juan. Attending physician on admission: Esthela Juan. Condition: Improved
== END 2025-09-01 13:50 | disposition home or self-care (01) | DRG 641 ==
LOC: ANHED 22:18 → ANH3MEDSUR 22:52 → ANH3MED 23:59
PROVIDERS: Internal Medicine Gastroenterology; Admitting Provider Internal Medicine; Emergency Provider Student in an Organized Health Care Education/Training Program; PCP Physician Assistant; Visit Provider Internal Medicine
PROC: 0DJ08ZZ Inspection of Upper Intestinal Tract, Via Natural or Artificial Opening Endoscopic (ICD-10-PCS; principal; 2025-08-30 15:00)
DX: E87.1 Hypo-osmolality and hyponatremia (principal); K21.00 Gastro-esophageal reflux disease with esophagitis, without bleeding; R06.6 Hiccough; F54 Psychological and behavioral factors associated with disorders or diseases classified elsewhere; R63.1 Polydipsia; R13.19 Other dysphagia; R11.0 Nausea; K44.9 Diaphragmatic hernia without obstruction or gangrene; K29.70 Gastritis, unspecified, without bleeding; R93.3 Abnormal findings on diagnostic imaging of other parts of digestive tract; K22.2 Esophageal obstruction; J44.9 Chronic obstructive pulmonary disease, unspecified; I10 Essential (primary) hypertension; E78.5 Hyperlipidemia, unspecified; D63.8 Anemia in other chronic diseases classified elsewhere; H40.9 Unspecified glaucoma; H54.8 Legal blindness, as defined in USA; Z87.891 Personal history of nicotine dependence
CPT/HCPCS: 36415; 70450; 71275; 74177; 80048; 80053; 80307; 81003; 82077; 82550; 83690; 83735; 83880; 83930; 84100; 84443; 84484; 85025; 85027; 85610; 85730; 87637; 88305; 88312; 88342; 93005; 94640; 96361; 96374; 96375; 99285; A9270; G0378; J2470; J2704; J2765; J7030; J7070; J7120; Q9967

== ENCOUNTER 2025-09-12 13:20 | Emergency (ER) | payer MEDICARE, SELFPAY ==
--- NOTE | ~2025-09-12 | CT_ITS ---
EXAMINATION: CT brain wo con DATE: 09/12/2025 16:21 INDICATION: Lightheadedness. Near syncope. TECHNIQUE: Computed tomography (CT) of the head was performed without intravenous contrast. The dose-length product was 1276.84 mGy-cm. Automated exposure control and iterative reconstruction technique were employed. COMPARISON: CT dated 08/29/2025 FINDINGS: Generalized atrophy. There are scattered mild periventricular and subcortical white matter changes, most likely related to small vessel ischemic disease (microangiopathy). 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 There are surgical changes of the left globe as well. No acute hemorrhage, infarction, mass or mass effect. No ventriculomegaly or midline shift. There is intracranial atherosclerosis paranasal sinuses and mastoids are pneumatized. No depressed skull fractures IMPRESSION: 1. No acute intracranial abnormality. Reviewed, dictated and finalized at location O. CAL DESIGN ENGINEER
--- OUTSIDE RECORDS SUMMARY | 2025-09-12 13:22 | XMS_ITS | Clinical Summary ---
Author Organization [facility] Address [facility] [place] [address] Care Team Providers Care Tentering Machine Off Bearer Name Role Phone Nuris Berger Primary Care Provider [phone] Allergies No known active allergies Medications albuterol [...] Comments Blood Pressure 120/62 09/04/2021 8:52 AM LINUX ADMINISTRATOR Pulse 82 09/04/2021 8:52 AM LINUX ADMINISTRATOR Temperature 36.3 C (97.4 F) 09/04/2021 8:52 AM LINUX ADMINISTRATOR Respiratory Rate 16 09/04/2021 8:52 AM LINUX ADMINISTRATOR Oxygen Saturation 97% 09/04/2021 8:52 AM LINUX ADMINISTRATOR Inhaled Oxygen Concentration - - Weight 64.4 kg (142 lb) 09/04/2021 8:52 AM LINUX ADMINISTRATOR Height 172.7 cm (5' 8) 09/04/2021 8:52 AM LINUX ADMINISTRATOR Body Mass Index 21.59 09/04/2021 8:52 AM LINUX ADMINISTRATOR Plan of Treatment Health Maintenance Due Date [...] this topic Insurance [employer] MEDICARE Care Teams Tentering Machine Off Bearer Relationship Specialty Start Date End Date Nuris Berger PA [address] [place] [address] PCP - General PHYSICIAN CALIBRATION CHECKER 06/09/21
--- OUTSIDE RECORDS SUMMARY | 2025-09-12 13:22 | XMS_ITS | Encounter Summary ---
Author Organization [facility] Healthcare Address [address] [place] [address] Care Team Providers Care Plant Hr Manager Name Role Phone Nuris Berger Primary Care Provider [phone] Jonatan Stokes MD Unavailable [phone] Irma Bajwa MD Unavailable [phone] Brooke Plaza MA Unavailable Unavailable Roxana Fernandez MA Unavailable [phone] Encounter Details Date Type Department Care Team (Late st Contact Info) Description 05/29/2025 Orders Only [facility] Health Information Management [address] [place] [id number] Scanning, Provider Social History Tobacco Use Types Packs/Day Years Used Date Smoking Tobacco: Former Cigarettes 0.8 40 0 09/1981 - 09/2021 Smokeless Tobacco: Never Alcohol Use Standard Drinks/Week Comments Yes 2 (1 standard drink = 0.6 oz pur e alcohol) social [facility] Utilities Answer Date Recorded In the past 12 months has [employer] electric, gas, oil, or water company threatened [...] often do you attend [facility] or gnosticist services? Patient declined 12/03/2023 Do [...] on file Legal Sex Male 12:22 AM PEARL PELLER Gender Identity Not on file Sexual Orientation [...] on filedocumented in this encounter Care Teams Plant Hr Manager Relationship Specialty Start Date End Date Nuris Berger PA [address] [facility] [address] [place] [address] PCP - General Internal Medicine 12/28/18 Jonatan Stokes MD [address] [place] [address] Consulting Physician Otolaryngology 03/27/20 Irma Bajwa MD [address] [facility] [place] [address] Consulting Physician Neurology 05/07/22 Brooke Plaza MA [address] [place] [address] ACO Care Rock Breaker 06/18/25 06/19/25 Roxana Fernandez MA [address] [place] [address] ACO Care Rock Breaker 07/31/25 07/31/25 documented as of this encounter
--- OUTSIDE RECORDS SUMMARY | 2025-09-12 13:22 | XMS_ITS | Clinical Summary ---
Author Organization [facility] [address] [facility] Address [address] [place] [address] Care Team Providers Care Site Safety Representative Name Role Phone Nuris Berger Primary Care Provider [phone] Jonatan Stokes MD Unavailable [phone] Irma Bajwa MD Unavailable [phone] Allergies Active Allergy Reactions Criticality Noted Date [...] ronic obstructive pulmonary disease, unspecified COPD type ([facility]) INHALE 2 PUFFS BY MOUTH TWICE DAILY. RINSE MOUTH WITH WATER AFTER USE. DO NOT SWALLOW 30.6 g 1 09/18/20 24 Active montelukast (SINGULAIR) 10 mg tabletIndicatio [...] DAILY 60 tablet 1 08/28/20 25 Active chlorproMAZINE (THORAZINE) 25 mg tablet TAKE 1 TABLET BY MOUTH EVERY 6 HOURS NEEDED FOR HICCUPS 60 tablet 1 09/03/[address] (PROTONIX) 40 mg EC tablet Take 1 tablet (40 mg total) by mouth daily 09/01/20 25 Active sucralfate (CARAFATE) suspension 1 gram/10 mL 09/01/20 Active pravastatin (PRAVACHOL) 80 mg tablet Take 1 tablet (80 mg total) by mouth daily 90 tablet 1 11/20/19 25 025 Discontinued chlorproMAZINE (THORAZINE) 25 mg tablet Take 1 tablet (25 mg total) by mouth 4 (four) times a day 120 tablet 1 05/01/20 25 025 Discontinued baclofen (LIORESAL) 10 mg tabletIndicatio ns:Low back pain, unspecified back pain laterality, unspecified chronicity, unspecified whether sciatica present TAKE 1 TABLET(10 MG) BY MOUTH TWICE DAILY 60 tablet 1 06/27/20 25 025 Discontinued losartan (COZAAR) 50 mg tablet Take 1 tablet (50 mg total) by mouth daily 07/08/20 25 025 Discontinued Active Problems Patient Care [...] 11/24/2023 Assessment & Plan (11/19/2024 11:45 PM [employer]): Supplement Assessment & Plan (05/20/2024 7:36 PM CDT): Supplement Fatigue 12/12/2022 Assessment & Plan (05/20/2024 7:37 PM CDT): Probably multifactorial. Check labs and followup to re-evaluate Assessment & Plan (11/24/2023 10:35 AM [employer]): Probably multifactorial. Check labs and followup to [...] 01/16/2022 Assessment & Plan (11/19/2024 11:44 PM [employer]): Chronic hiccups for 5+ years Has been [...] to the ER. ER recommended referral to [facility] but patient states he can't go to [...] weeks Assessment & Plan (11/24/2023 10:34 AM [employer]): Patient has persistent chronic hiccups that come [...] monitor Assessment & Plan (08/15/2023 5:01 PM [employer]): Chronic hiccups for years. Has tried multiple interventions along with multiple workups from specialists including Neurology pulmonology and GI. Continue current regimen. Stressed importance of limiting water intake when he has the hiccups spells as this has been leading to hyponatremia requiring hospitalization. Assessment & Plan (08/11/2023 8:45 AM [employer]): Patient with chronic hiccups. Have had difficulty [...] levels. Assessment & Plan (08/15/2022 6:45 PM [employer]): Patient has consulted with most multiple specialists [...] hiccups. Assessment & Plan (08/15/2023 5:02 PM [employer]): Chronic hiccups for years. Has tried multiple interventions along with multiple workups from specialists including Neurology pulmonology and GI. Continue current regimen. Stressed importance of limiting water intake when he has the hiccups spells as this has been leading to hyponatremia requiring hospitalization. Assessment & Plan (08/11/2023 8:46 AM [employer]): Hyponatremia secondary to water intake with chronic [...] labs. Gastroesophageal reflux disease with esophagitis 07/14/2019 Overview (09/06/2025): 08/2025 - Dr. Mitchell EGD: severe ulcerative esophagitis. PPI bid fpc, carafate and avoid NSAIDs/ASA---->rep EGD in 12/2025 Assessment & Plan (11/19/2024 11:44 PM [employer]): Continue PPI p.r.n. Assessment & Plan (05/20/2024 7:35 PM CDT): Continue pantoprazole p.r.n. Assessment & Plan (11/24/2023 10:33 AM [employer]): Continue pantoprazole p.r.n. Assessment & Plan (04/08/2023 8:48 PM CDT): Continue PPI p.r.n. Assessment & Plan (12/12/2022 9:43 PM CDT): Insert PPI Assessment & Plan (08/15/2022 6:45 PM [employer]): Continue PPI prn Assessment & Plan (02/09/2021 8:17 PM CDT): Continue PPI Assessment & Plan (07/29/2020 7:33 AM [employer]): Continue PPI Assessment & Plan (03/27/2020 8:01 AM CDT): Dr. Stokes changed him from omeprazole to Pantoprazole for the hiccups. Pt hasn't noted any difference in GERD sxs (still well controlled) or hiccups. Assessment & Plan (09/26/2019 7:38 AM [employer]): Continue PPI Assessment & Plan (07/14/2019 8:46 AM CDT): Discussed GERD at length including anatomy, behavioral changes (raise HOB, meal timings), dietary changes and medication options. Reviewed risks, benefits alternatives, side effects and proper use. Followup if sxs worsen or has hematochezia or hematemeis. Start PPI Chronic obstructive pulmonary disease 06/26/2019 Overview (06/26/2019): Noted on 06/2019 LDCT Assessment & Plan (11/19/2024 11:44 PM [employer]): Patient with allergies and COPD. Continue Singulair albuterol and Symbicort. Follows with Dr. Valdes. Assessment & Plan (05/20/2024 7:35 PM CDT): Continue per Dr. Valdes. Continue with his Symbicort and albuterol inhalers. Low-dose CT will be scheduled for June 16, 2024. Assessment & Plan (11/24/2023 10:33 AM [employer]): COPD. Continue per Dr. Hammond his machine tracer Continue Symbicort Singulair and albuterol p.r.n. Assessment & Plan (04/08/2023 8:48 PM CDT): Encouraged smoking cessation. Continue per Dr. Hammond pulmonology. He is on albuterol Symbicort and Singulair Assessment & Plan (12/12/2022 9:43 PM CDT): Stop smoking. Continue per Pulmonary. Continue Symbicort Singulair and albuterol. Continue monitoring low-dose CTs as instructed Assessment & Plan (08/15/2022 6:44 PM [employer]): Stop smoking. Continue current plan per Pulmonary Assessment & Plan (08/01/2021 9:34 PM [employer]): Continue per Pulmonary Dr. Valdes Assessment & Plan (02/09/2021 8:15 PM CDT): Stop smoking. Continue per Dr. Valdes Assessment & Plan (07/29/2020 7:32 AM [employer]): Continue per Pulm Assessment & Plan (03/27/2020 8:00 AM CDT): Stop smoking. He declines starting inhalers or referral to Pulmonary Assessment & Plan (09/26/2019 10:27 PM [employer]): This is a significant, separately identifiable problem [...] order Assessment & Plan (07/29/2020 7:33 AM [employer]): Needs to repeat ---Dr. Valdes has already ordered Assessment & Plan (03/27/2020 8:00 AM CDT): 06/2019 LDCT Several 2-3mm nodules, probable benign LungRADs 2 --- repeat 06/2020 Assessment & Plan (09/26/2019 10:26 PM [employer]): 06/2019 LDCT Several 2-3mm nodules, probable benign LungRADs 2 --- repeat 06/2020 Hyperplastic rectal polyp 05/20/2019 Overview (05/20/2019): Colonoscopy 01/29/2012 at [facility]--->2021 Assessment & Plan (05/28/2019 7:33 PM CDT): Recvd colonoscopy and due to repeat in 2021 Hiatal hernia 05/20/2019 Mixed hyperlipidemia 05/20/2019 Assessment & Plan (11/19/2024 11:45 PM [employer]): Encouraged patient to follow low fat/low chol [...] 80 Assessment & Plan (11/24/2023 10:34 AM [employer]): Encouraged patient to follow low fat/low chol diet like the Mediterranean diet. Increase good fats in the diet. Increase exercise. Monitor labs as needed. Continue pravastatin 80 Assessment & Plan (08/15/2023 5:03 PM [employer]): Encouraged patient to follow low fat/low chol [...] Zetia Assessment & Plan (08/01/2021 9:33 PM [employer]): Encouraged patient to follow fat/low chol diet [...] statin Assessment & Plan (07/29/2020 7:34 AM [employer]): Encouraged patient to follow fat/low chol diet like the Mediterranean diet. Increase good fats in the diet. Increase exercise. Monitor labs as needed. Assessment & Plan (03/27/2020 8:02 AM CDT): Encouraged patient to continue low fat/low chol diet. Continue exercise. Increase good fats in the diet. Monitor labs as needed. Stable with zetia and pravastatin Assessment & Plan (09/26/2019 7:39 AM [employer]): Encouraged patient to continue low fat/low chol [...] change Assessment & Plan (08/15/2023 5:03 PM [employer]): Patient is legally blind. Continue with Ophthalmology Assessment & Plan (04/08/2023 8:47 PM CDT): No change Assessment & Plan (03/27/2020 8:02 AM CDT): No change Assessment & Plan (09/26/2019 7:39 AM [employer]): No change Assessment & Plan (05/28/2019 7:35 PM CDT): No change Cigarette smoker 05/20/2019 Assessment & Plan (08/11/2023 8:45 AM [employer]): Encouraged smoking cessation. Discussed 3 minutes. Reviewed [...] desire. Assessment & Plan (08/15/2022 6:44 PM [employer]): Encouraged smoking cessation. Discussed 3 minutes. Reviewed [...] desire. Assessment & Plan (08/01/2021 9:33 PM [employer]): Encouraged smoking cessation. Discussed 3 minutes. Reviewed [...] help Assessment & Plan (07/29/2020 7:34 AM [employer]): Encouraged smoking cessation. Discussed 3 minutes. Reviewed [...] desire. Assessment & Plan (09/26/2019 7:39 AM [employer]): Encouraged smoking cessation. Discussed 3 minutes. Reviewed [...] 05/20/2019 Assessment & Plan (11/19/2024 11:45 PM [employer]): Pre-diabetes/hyperglycemia is a precursor to Dm. Stressed [...] diabetes. Assessment & Plan (11/24/2023 10:34 AM [employer]): Pre-diabetes/hyperglycemia is a precursor to Dm. Stressed importance of working on diet (decrease your simple sugars and one carbohydrate with each meal) and increase you exercise to achieve weight loss and this will help prevent you from progressing to diabetes. Assessment & Plan (08/15/2023 5:03 PM [employer]): Pre-diabetes/hyperglycemia is a precursor to Dm. Stressed [...] diabetes. Assessment & Plan (08/01/2021 9:33 PM [employer]): Pre-diabetes/hyperglycemia is a precursor to Dm. Stressed [...] diabetes. Assessment & Plan (07/29/2020 7:34 AM [employer]): Pre-diabetes is a precursor to Dm. Stressed [...] labs Assessment & Plan (09/26/2019 10:27 PM [employer]): This is a significant, separately identifiable problem [...] 025 Assessment & Plan (11/19/2024 11:45 PM [employer]): Encouraged healthy lifestyle, good nutrition and exercise. Encouraged Calcium and Vitamin D and weight bearing exercise for bone health. Reviewed immunizations Reviewed age appropirate screenings. BMI 23.0-23.9, adult 06/20/2024 025 Assessment & Plan (10/30/2024 8:57 AM [employer]): Weight/BMI is in healthy range. Continue healthy [...] 024 Assessment & Plan (11/24/2023 10:35 AM [employer]): Encouraged healthy lifestyle, good nutrition and exercise. Encouraged Calcium and Vitamin D and weight bearing exercise for bone health. Reviewed immunizations Reviewed age appropirate screenings. Need for influenza vaccination 08/15/2023 11/24/2023 Assessment & Plan (08/15/2023 5:04 PM [employer]): Flu vaccine updated in the office today BMI 22.0-22.9, adult 07/22/2023 024 Assessment & Plan (08/11/2023 8:12 AM [employer]): Weight/BMI is in healthy range. Continue healthy [...] 04/03/2023 Assessment & Plan (08/15/2022 6:45 PM [employer]): Flu updated in the office today BMI [...] test outpatient. Was referred to an outside osteopathic resident. Encouraged to consider seeing a [facility] Medical group of cardiologists so [...] 022 Assessment & Plan (08/01/2021 7:28 AM [employer]): Weight/BMI is in healthy range. Continue healthy lifestyle to maintain. Medicare annual wellness visit, subsequent 08/01/2021 08/15/2022 Assessment & Plan (08/01/2021 9:34 PM [employer]): Encouraged healthy lifestyle, good nutrition and exercise. Encouraged Calcium and Vitamin D and weight bearing exercise for bone health. Reviewed immunizations. Reviewed age appropirate screenings. Medicare Wellness Documentation is completed within the chart Fatigue 05/17/2021 05/02/2022 Assessment & Plan (08/01/2021 9:34 PM [employer]): Probably multifactorial. Check labs and followup to [...] 024 Assessment & Plan (11/24/2023 10:34 AM [employer]): Weight/BMI is in healthy range. Continue healthy [...] 05/02/2022 Assessment & Plan (07/29/2020 7:34 AM [employer]): Probably multifactorial. Check labs and followup to re-evaluate Need for immunization against influenza 07/29/2020 11/24/2020 Assessment & Plan (07/29/2020 7:34 AM [employer]): Updated in office today BMI 22.0-22.9, adult 03/27/2020 024 Assessment & Plan (05/20/2024 7:37 PM CDT): Weight/BMI is in healthy range. Continue healthy lifestyle to maintain. Assessment & Plan (07/29/2020 7:34 AM [employer]): Weight/BMI is in healthy range. Continue healthy [...] 020 Assessment & Plan (09/26/2019 7:39 AM [employer]): Weight/BMI is in healthy range. Continue healthy lifestyle to maintain. Annual physical exam 09/26/2019 020 Assessment & Plan (09/26/2019 7:40 AM [employer]): Encouraged healthy lifestyle, good nutrition and exercise. Encouraged Calcium and Vitamin D and weight bearing exercise for bone health. Reviewed immunizations Reviewed age appropirate screenings. Influenza vaccine refused 09/26/2019 Assessment & Plan (09/26/2019 7:40 AM [employer]): Encouraged vaccine. Reviewed risks/ benefits. Patient refuses and accepts risks. Esophagitis determined by endoscopy 05/20/2019 05/02/2022 Gastritis 05/20/2019 05/02/2022 Essential (primary) hypertension 05/20/2019 05/20/2024 Assessment & Plan (11/24/2023 10:34 AM [employer]): Bp is stable/in acceptable range for any co-morbidities. Encouraged to limit sodium intake and exercise for weight control. Continue losartan 50 Assessment & Plan (08/15/2023 5:04 PM [employer]): Bp is stable/in acceptable range for any co-morbidities. Encouraged to limit sodium intake and exercise for weight control. Continue per Dr. Curtis Assessment & Plan (08/11/2023 8:45 AM [employer]): Bp is stable/in acceptable range for any [...] losartan Assessment & Plan (08/15/2022 6:44 PM [employer]): Bp is stable/in acceptable range for any [...] 50 Assessment & Plan (08/01/2021 9:33 PM [employer]): Bp is stable/in acceptable range for any [...] Losartan/HCTZ Assessment & Plan (07/29/2020 7:33 AM [employer]): Bp is stable/in acceptable range for any co-morbidities. Encouraged to limit sodium intake and exercise for weight control. Losartan and HCTZ Assessment & Plan (03/27/2020 8:00 AM CDT): Bp is stable/in acceptable range for any co-morbidities. Encouraged to limit sodium intake and exercise for weight control. Continue losartan/HCTZ Assessment & Plan (09/26/2019 7:38 AM [employer]): Bp is stable/in acceptable range for any [...] 01/21/2022 Assessment & Plan (08/01/2021 9:34 PM [employer]): Persistent hiccups. Has consulted with multiple providers [...] omeprazole Assessment & Plan (07/29/2020 7:32 AM [employer]): Continue per ENT/Pulm. He is responding to BID omeprazole. Will monitor Assessment & Plan (03/27/2020 7:59 AM CDT): Dr. Stokes started him on Pantoprazole. He hasn't noted much difference. Needs to followup to complete workup. Encouraged patient to call and make appointment. Assessment & Plan (09/26/2019 10:26 PM [employer]): This is a significant, separately identifiable problem that was evaluated and managed on the same day as the wellness exam Less frequent than in the past. Continue the PPI and monitor Rx sent to pharmacy. Assessment & Plan (08/24/2019 9:04 AM [employer]): Improving with the PPI. Continue PPI and [...] 2018 Assessment & Plan (08/24/2019 9:04 AM [employer]): Encouraged vaccine. Reviewed risks/ benefits. Patient refuses and accepts risks. Assessment & Plan (07/14/2019 7:05 PM CDT): Encouraged vaccine. Reviewed risks/ benefits. Patient refuses and accepts risks. Assessment & Plan (05/28/2019 7:34 PM CDT): Encouraged again Hypovolemia dehydration 03/02/2024 Leukocytosis 11/24/2023 Hypercholesteremia Assessment & Plan (04/08/2023 8:47 PM CDT): Encouraged patient to follow low fat/low chol diet like the Mediterranean diet. Increase good fats in the diet. Increase exercise. Monitor labs as needed. Continue pravastatin and Zetia Gastroesophageal reflux dise ase without esophagitis 04/03/2023 Encounters Date Type Department Care Team Description 09/03/2025 DEB[facility]E IP Outreach [facility] Accountable [address] [address] Ayla Dugan LPN 08/30/2025 Orders Only [facility] Health Information Management [address] [place] [id number] Nuris Berger PA 08/29/2025 Orders Only [facility] Health Information Management [address] [place] [id number] Scanning, Provider 07/31/2025 DEBBIE ED Outreach [facility] Accountable Care [address] [address] Roxana Fernandez MA 07/31/2025 DEBBIE IP Outreach [address] [address] Roxana Fernandez MA 07/31/2025 Telephone [facility] Medical Group Family Medicine [address] [address] Nuris Berger PA 06/26/2025 9:30 AM CDT Office Visit [address] [place] [address] Nuris Berger PA Hyponatremia (Primary Dx); Psychogenic polydipsia; Chronic hiccups; BMI 23.0-23.9, adult; Generalized body aches; Legally blind; Flu vaccine need 06/21/[address] [place] [phone] Nuris Berger PA 06/20/2025 DEBBIE IP Outreach [address] [address] [address] [place] 06/19/2025 [facility]BBIE IP Outreach [address] [address] [place] [address] [place] 06/18/2025 DEBBIE IP Outreach [address] [address] [address] [place] from Last 3 Months Immunizations Immunization Administration [...] Name Comments Blindness Father Heart attack Father [place] Heart disease Father No Known Problems Mother [...] In the past 12 months has e [employer], gas, oil, or water [employer] threatened to shut off services in your [...] any clubs o r organizations such as mandaeism groups, unions, fraternal or athletic groups, or [...] a group home (including now)? No 12/03/2023 AUDIT-C Answer Date [...] on file Legal Sex Male 12:22 AM [employer] Gender Identity Not on file Sexual Orientation [...] Procedure Name Priority Date/Time Associated Diagnosis Comments GI - RESULT 08/30/2025 SCAN - LABS 08/29/2025 SCAN - RADIOLOGY/IMAGING 08/29/2025 PSA SCREEN Routine 05/01/2025 10:18 AM CDT Prostate cancer screening CT CHEST WO CONTRAST F/U LUNG SCREEN PROTOCOL Schedule Routine, Read Routine (OP Routine) 10/03/2024 9:25 AM [employer] Pulmonary nodules HEPATITIS PANEL, ACUTE Routine 05/03/2022 5:40 AM CDT HM COLONOSCOPY Routine 07/14/2021 from Last 3 Months or Most Recently Relevant to Health Maintenance Results * GI - RESULT (08/30/2025) Anatomical Region Laterality Modality Other Nuris ROBLES Final Resu lt * SCAN - RADIOLOGY/IMAGING (08/29/2025) Anatomical Region Laterality Modality Other Provider Scanning Final Result * SCAN - LABS (08/29/2025) Provider Scanning Final Result * PSA screen (05/01/2025 10:18 AM CDT) PSA 1.33 < OR = 4.00 ng/mL [facility] Comment: The total PSA value from this assay system is standardized against the WHO standard. The test result will be approximately 20% lower when compared to the equimolar-standardized total PSA ([facility] [place]). Comparison of serial PSA results should be [...] Nuris ROBLES LAB BLOOD ORDERABLES Final Result [facility] [address] [place] [address] * CT Chest WO Contrast F/U Lung Screen Protocol (10/03/2024 9:25 AM [employer]) Anatomical Region Laterality Modality Chest N/A Computed Tomogra phy 10/03/2024 7:11 PM [employer] Narrative 10/03/2024 7:17 PM [employer] EXAM DESCRIPTION: CT CHEST WO CONTRAST F/U [...] Estuardo Ortiz M.D. KT T: Report ID: [id number] Reading Location: [place] [address] [place] Tasia Hoffman MD IM CT PROCEDURES Final Resul t * Hepatitis panel, acute (05/03/2022 5:40 AM CDT) Hep A IgM Nonreactive Nonreactive [facility] Comment: Interpretive Data: If Hep A IgM Ab is reported as Equivocal, a new sample should be drawn in two weeks for testing. Current interpretive data was last revised on 19. Hep B core IgM Nonreactive Nonreactive [facility] Comment: Interpretive Data If HepB Core IgM Ab is reported as Equivocal, a new sample should be drawn in two weeks for testing. Current interpretive data was last revised on 19. Hep C Ab Nonreactive Nonreactive [facility] Comment: Interpretive Data Nonreactive: Antibodies to [...] revised on 2019. HepBsAg Nonreactive Nonreactive [facility] Blood 05/03/2022 5:40 AM CDT 05/03/2022 6:36 AM CDT Pamela Gongora DO LAB MICROBIOLOGY - GENERAL OR DERABLES Final Result [facility] [address] [facility] Department [place] [address] * (ABNORMAL) COLONOSCOPY (07/14/2021) Jame Mg MD HEALTH MAINTENANCE Edited Result - Final from Last 3 Months or Most Recently Relevant to Health Maintenance Insurance [employer] MEDICARE GOLD AETNA MEDICARE GOLD AETNA MEDICARE GOLD Advance Directives For more information, please contact: [phone] * Full Code (Latest Code Status on [...] 10:34 PM 11/16/2022 9:56 PM Care Teams Site Safety Representative Relationship Specialty Start Date End Date Nuris Berger PA [address] [facility] [address] [place] [address] PCP - General Internal Medicine 12/28/18 Jonatan Stokes MD [facility] [employer] [place] [address] Consulting Physician Otolaryngology 03/27/20 Irma Bajwa MD [address] [facility] [place] [address] Consulting Physician Neurology 05/07/22
--- OUTSIDE RECORDS SUMMARY | 2025-09-12 13:23 | XMS_ITS | Encounter Summary ---
Author Organization [facility] Healthcare Address [address] [place] [address] Care Team Providers Care Motor Vehicle Emissions Inspector Name Role Phone Nuris Berger Primary Care Provider [phone]- [phone] Jonatan Stokes MD Unavailable [phone] Irma Bajwa MD Unavailable [phone] Ayla Dugan LPN Unavailable [phone] MA Unavailable Unavailable Roxana Fernandez MA Unavailable [phone] Encounter Details Date Type Department Care Team (Late st Contact Info) Description 03/26/2025 Orders Only [facility] [place] Health Information Management [address] [place] [address] Scanning, Provider Social History Tobacco Use Types Packs/Day Years Used Date Smoking Tobacco: Former Cigarettes 0.8 40 0 09/1981 - 09/2021 Smokeless Tobacco: Never Alcohol Use Standard Drinks/Week Comments Yes 0 (1 standard drink = 0.6 oz pur e alcohol) social [facility] Utilities Answer Date Recorded In the past 12 months has Related Content Database (RCDb) electric, gas, oil, or water company threatened [...] often do you attend chur ch or pentecostalism services? 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 Gender Identity Not on file Sexual Orientation [...] on filedocumented in this encounter Care Teams Motor Vehicle Emissions Inspector Relationship Specialty Start Date End Date Nuris Berger PA [address] [facility] [address] [place] [address] PCP - General Internal Medicine 12/28/18 Jonatan Stokes MD [address] [place] [address] Consulting Physician Otolaryngology 03/27/20 Irma Bajwa MD [address] [place] [address] Consulting Physician Neurology 05/07/22 Ayla Dugan LPN [address] [place] [address] [address] [place] [address] Manager Farm 03/30/25 03/30/25 Brooke Plaza MA [address] [facility] [facility] [address] [place] [address] ACO Care Rate Setter 06/18/25 06/19/25 Roxana Fernandez MA [address] [place] [address] ACO Care Rate Setter 07/31/25 07/31/25 documented as of this encounter
--- OUTSIDE RECORDS SUMMARY | 2025-09-12 13:23 | XMS_ITS | Encounter Summary ---
Author Organization [facility] Healthcare Address [address] [place] [address] Care Team Providers Care Millwork Estimator Name Role Phone Nuris Berger Primary Care Provider [phone]- [phone] Jonatan Stokes MD Unavailable [phone] Irma Bajwa MD Unavailable [phone] Ayla Dugan LPN Unavailable [phone] MA Unavailable Unavailable Roxana Fernandez MA Unavailable [phone] Encounter Details Date Type Department Care Team (Late st Contact Info) Description 12/21/2024 Orders Only [facility] [place] [address] [place] [address] Scanning, Provider Social History Tobacco Use Types Packs/Day Years Used Date Smoking Tobacco: Former Cigarettes 0.8 40 0 09/1981 - 09/2021 Smokeless Tobacco: Never Alcohol Use Standard Drinks/Week Comments Yes 0 (1 standard drink = 0.6 oz pur e alcohol) social [facility] Utilities Answer Date Recorded In the past 12 months has [employer] electric, gas, oil, or water company threatened [...] often do you attend chur ch or jain services? 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 [place] [address] PCP - General Internal Medicine 12/28/18 Jonatan Stokes MD [address] [place] [address] Consulting Physician Otolaryngology 03/27/20 Irma Bajwa MD [facility] [place] [address] Consulting Physician Neurology 05/07/22 Ayla Dugan LPN [address] [place] [address] Electrician Crane Maintenance 03/30/25 03/30/25 Brooke Plaza MA [address] [place] [address] ACO Care Engine Repair Supervisor 06/18/25 06/19/25 Roxana Fernandez MA [address] [place] [address] ACO Care Engine Repair Supervisor 07/31/25 07/31/25 documented as of this encounter
--- OUTSIDE RECORDS SUMMARY | 2025-09-12 13:23 | XMS_ITS | Clinical Summary ---
Author Organization [facility] [employer] Address [address] [place] [address] Care Team Providers Care Assistant Banquet Manager Name Role Phone Nuris Berger PA-C Primary Care Provider [phone] Source Comments [facility] [employer],non-owned Affiliates and Associated Physician Practices is amultiple site organization consisting of ambulatory clinics and hospital sitesin [place], [place], [place] and [place]. This disclosure is being madepursuant to the Care Everywhere program and may not contain all information available regarding this patient. Last updated 18.[facility] [employer] Allergies Active Allergy Reactions Criticality Noted [...] tablet 06/17/2023 Active ergocalciferol (Drisdol) 1.25 MG (45957 UT) capsule Take 1 (one) capsule by [...] 11 07/21/2024 Active trimethoprim-po lymyxin B (Polytrim) 53224-5.1 UNIT/ML-% ophthalmic solution Instill 1 (one) drop [...] polyp 05/20/2019 Overview (12/24/2020): Colonoscopy 01/29/2012 at [facility]--->2021 Last Assessment & Plan: Recvd [...] Department Care Team Description 08/07/2025 9:15 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 FARM OPERATIONS MANAGER Clinical Support [facility] Ophthalmology [address] [place] [phone] Tyrel Velez MD 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 (Primary Dx) 08/07/2025 8:45 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 FARM OPERATIONS MANAGER Clinical Support [facility] - Ophthalmology [address] [place] [phone] Tyrel Velez MD 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 (Primary Dx) 08/07/2025 8:40 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 FARM OPERATIONS MANAGER Office Visit [facility] - Ophthalmology [address] [place] [phone] Tyrel Velez MD 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 (Primary Dx) 08/07/2025 Travel from Last 3 Months Immunizations Immunization Administration Dates Next Due CovMediaV primary monoval ent 12+ yr 0.3mL Purple [...] Comments Blood Pressure 128/70 08/26/2023 12:43 PM ASSISTANT FARM OPERATIONS MANAGER Pulse 65 08/26/2023 12:43 PM ASSISTANT FARM OPERATIONS MANAGER Temperature 35.9 C (96.7 F) 08/26/2023 12:34 PM ASSISTANT FARM OPERATIONS MANAGER Respiratory Rate 14 08/26/2023 12:43 PM ASSISTANT FARM OPERATIONS MANAGER Oxygen Saturation 98% 08/26/2023 12:34 PM ASSISTANT FARM OPERATIONS MANAGER Inhaled Oxygen Concentration - - Weight 64.9 kg (143 lb) 08/26/2023 9:01 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 FARM OPERATIONS MANAGER Height 172.7 cm (5' 8) 08/26/2023 9:01 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 FARM OPERATIONS MANAGER Body Mass Index 21.74 08/26/2023 9:01 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 FARM OPERATIONS MANAGER Plan of Treatment Upcoming Encounters Date Type Department Care Team (Late st Contact Info) Description 10/17/2025 9:00 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 FARM OPERATIONS MANAGER Office Visit [facility] - Ophthalmology [address] [place] [phone] Louis Hansen MD [address] [place] [address] [place] [phone] 04/16/2026 9:00 AM CDT Office Visit [facility] - Ophthalmology [address] [place] [phone] Tyrel Velez MD [address] [place] [phone] Health Maintenance Due Date Last Done Comments [...] this topic Medical Devices Implanted Type Area Ross Furnace Operator Device Identifier Shelf Expiration Date Model / Serial / Lot Drain Glcm Thk.9mm Blnt Tpr [facility] Fl - [id number] Implanted:Qty: 1 on 05/04/2018 by Tyrel Velez MD at [facility] Left: Eye [employer] 03/15/2020 FP7 / [id number] / [id number] Graft Tissue Ttplst Sclr .8x.5cm Lopro - [id number] Implanted:Qty: 1 on 05/04/2018 by Tyrel Velez MD at [facility] Left: Eye [employer] 01/17/2023 [id number] / [id number] / [id number] Impl Opth 250sq Mm Brvldt Magaly 1 Qdrnt - [id number] Implanted:Qty: 1 on 06/16/2023 by Tyrel Velez MD at [facility] Left: Eye [employer] 01/09/2024 [id number] / [id number] / Graft Tissue Ttpl Ioptch Sclr .8x.5cm - [id number] Implanted:Qty: 1 on 06/16/2023 by Tyrel Velez MD at [facility] Left: Eye [employer] 09/19/2027 [id number] / [id number] / Graft Tissue Ttpl Ioptch Sclr .8x.5cm - [id number] Implanted:Qty: 1 on 06/16/2023 by Tyrel Velez MD at [facility] Left: Eye [employer] 09/19/2027 [id number] / [id number] / J Luis Cornea - [id number] Implanted:Qty: 1 on 08/26/2023 by Louis Hansen MD at [facility] Left: Eye [employer] 09/05/2023 [id number] / [id number] / [id number] Description:Product Numb:[id number] EXP:09-05-2023 DIN:[id number] Insurance SELF PAY NO INSURANCE Member Subscriber Plan / Payer (Ef fective for All Dates) Name:Mark Randolph Member ID:Not on file Relation to Subscriber:Self Name:MARK RANDOLPH Subscriber ID:Not on file Payer ID:Not on file Group ID:Not on file Type:Self Pay Address: [place], [place] AETNA MEDICARE ADV AETNA Advance Directives * Full Code (Latest Code Status on File) Date Activated Date Inactivated Comments 05/04/2018 11:35 AM 05/04/2018 1:21 PM * Full Code Date Activated Date Inactivated Comments 05/04/2018 7:43 AM 05/04/2018 11:35 AM Care Teams Assistant Banquet Manager Relationship Specialty Start Date End Date Nuris Berger PA-C PCP - General 02/13/20
--- OUTSIDE RECORDS SUMMARY | 2025-09-12 13:23 | XMS_ITS | Encounter Summary ---
Author Organization [facility] Healthcare Address [address] [place] [address] Care Team Providers Care Tank Terminal Gauger Name Role Phone Nuris Berger Primary Care Provider [phone]- [phone] Jonatan Stokes MD Unavailable [phone] Irma Bajwa MD Unavailable [phone] Ayla Dugan LPN Unavailable [phone] MA Unavailable Unavailable Roxana Fernandez MA Unavailable Encounter Details Date Type Department Care Team (Late st Contact Info) Description 12/26/2024 Orders Only [facility] [place] Health Information Management [address] [place] [address] Scanning, Provider Social History Tobacco Use Types Packs/Day Years Used Date Smoking Tobacco: Former Cigarettes 0.8 40 0 09/1981 - 09/2021 Smokeless Tobacco: Never Alcohol Use Standard Drinks/Week Comments Yes 0 (1 standard drink = 0.6 oz pur e alcohol) social [facility] Utilities Answer Date Recorded In the past 12 months has [employer] electric, gas, oil, or water company threatened [...] often do you attend chur ch or pentecostal services? 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 Gender Identity Not on file Sexual Orientation [...] on filedocumented in this encounter Care Teams Tank Terminal Gauger Relationship Specialty Start Date End Date Nuris Berger PA [address] [facility] [address] [place] [address] PCP - General Internal Medicine 12/28/18 Jonatan Stokes MD [address] [place] [address] Consulting Physician Otolaryngology 03/27/20 Irma Bajwa MD [address] [facility] [facility] [place] [address] Consulting Physician Neurology 05/07/22 Ayla Dugan LPN [address] [place] [address] [address] [place] [address] Bulk Filler 03/30/25 03/30/25 Brooke Plaza MA [address] [place] [address] ACO Care Portable Track Crew Chief 06/18/25 06/19/25 Roxana Fernandez MA [address] [place] [address] ACO Care Portable Track Crew Chief 07/31/25 07/31/25 documented as of this encounter
--- NOTE | 2025-09-12 14:25 | PC.NURSE ---
patient was assisted to the bathroom in the waiting room.
[2025-09-12 14:27] VITALS: BP 157/59; PULSE 72; RESP 18; TEMP 36.7; O2SAT 99
--- NOTE | 2025-09-12 16:05 | ED.WEAKNESS ---
HPI - Weakness General Chief complaint: Weakness <GONZALO Schwartz Last Filed: 09/12/25 16:15> Stated complaint: light headed dizzy throwing up nausea <GONZALO Schwartz Last Filed: 09/12/25 16:15> Time Seen by Provider: 09/12/25 16:05 <GONZALO Schwartz Last Filed: 09/12/25 16:15> Focused HPI: Patient is a 64 y/o male, with PMH of blindness r/t glaucoma, COPD, chronic hiccups, who presents to the ED with c/o lightheadedness. Patient reports he began feeling lightheaded last night. Also reported N/V, [place] at that time. Sx's have persisted into this morning. [place] near syncopal this afternoon. Reports hiccups, though states this is a chronic issue for him. Denies focal weakness/numbness, URI sx's, CP, SOB, abd pain. GENERAL: Well-appearing, well-nourished, and in no acute distress. HEAD: Normocephalic, atraumatic. CHEST: Clear to auscultation. ?No respiratory distress. HEART: Regular rate and rhythm.? NEURO: ?Alert and oriented x3. No focal deficits. Equal laboratory cureman strength bilaterally Patient screened in triage and initial orders placed.? ?Additional care and disposition to be based upon?diagnostic testing and treatment. <Lisa Carreno PA-C - Last Filed: 09/12/25 16:15> Source: patient <GONZALO Schwartz Last Filed: 09/12/25 16:15> Mode of arrival: ambulatory <GONZALO Schwartz Last Filed: 09/12/25 16:15> Limitations: no limitations <GONZALO Schwartz Last Filed: 09/12/25 16:15> History of Present Illness HPI Narrative: patient is a 64-year-old gentleman who presents emergency department with chronic a cup and lightheadedness the patient states the symptoms feel similar to whenever he has had hyponatremia in the past patient states that this is a chronic issue for him <Jeremías Ernst MD - Last Filed: 09/13/25 06:24> Related Data Home medications: Home Medications ?Medication ?Instructions ?Recorded ?Confirmed ?Last Taken ?Type losartan 50 mg tablet 50 mg PO DAILY 03/02/21 08/30/25 08/29/25 History montelukast 10 mg tablet 10 mg PO HS 03/02/21 08/30/25 08/29/25 History pravastatin 80 mg tablet 80 mg PO DAILY 03/02/21 08/30/25 08/29/25 History cholecalciferol (vitamin D3) 25 25 mcg PO DAILY 03/29/21 08/30/25 08/29/25 History mcg (1,000 unit) capsule (Vitamin D3) cyanocobalamin (vitamin B-12) 100 2,000 mcg PO DAILY 03/29/21 08/30/25 08/29/25 History mcg tablet dorzolamide 22.3 mg-timolol 6.8 1 drp LEFT EYE TID 06/29/24 08/30/25 08/29/25 History mg/mL eye drops budesonide-formoterol HFA 80 2 puff inhalation Q12H 12/26/24 08/30/25 08/29/25 History mcg-4.5 mcg/actuation aerosol inhaler gabapentin 300 mg capsule 300 mg PO DAILY 12/26/24 08/30/25 08/29/25 History aspirin 81 mg tablet,delayed 81 mg PO DAILY 03/25/25 08/30/25 08/29/25 History release (Adult Aspirin Regimen) 81 mg baclofen 10 mg tablet 10 mg PO Q12H Back pain 08/30/25 08/30/25 08/29/25 History <Lisa Carreno PA-C - Last Filed: 09/12/25 16:15> Allergies/Adverse reactions: Allergies Allergy/AdvReac Type Severity Reaction Status Date / Time No Known Allergies Allergy Verified 09/12/25 14:29 <Lisa Carreno PA-C - Last Filed: 09/12/25 16:15> [facility] Past Medical History Medical History: Medical History (Updated 09/13/25 @ 00:26 by Jeremías Ernst MD) Ulcerative esophagitis Abnormal CT scan, esophagus Dysphagia Asthma-COPD overlap syndrome Wears hearing aid in both ears Adenomatous colon polyp Hiatal hernia Other osteonecrosis, left femur Other osteonecrosis, right femur Psychogenic polydipsia Erosive esophagitis Anemia of chronic disease Chronic hiccups Hyponatremia Tobacco abuse Normocytic anemia Glaucoma Legally blind. Hyperlipidemia Hypertension <GONZALO Schwartz Last Filed: 09/12/25 16:15> Surgical History Surgical History: Surgical History History of enucleation of eye Right, secondary to recurrent infection. <GONZALO Schwartz Last Filed: 09/12/25 16:15> Family History Family History: Family History Grandparent Acute myocardial infarction Mother Acute myocardial infarction Skin cancer Father Acute myocardial infarction Sibling Cancer <GONZALO Schwartz Last Filed: 09/12/25 16:15> Social History Social History: Social History Social History: Surrogate decision maker: Svitlana Hines, . Code status: Full code. Smoking packs per day: 1.5 Smoking cigarettes per day: 30.0 Years smoked: 50 Smoking pack-years: 75.00 Smoking status: Former smoker Tobacco type: cigarettes Second hand tobacco smoke exposure: No Smoking end date: 05/21/20 Alcohol intake: never Substance use: never Substance use type: does not use Lack of Transportation: No Lack of Food: Never True Current Housing: I Have Housing Concerned About Future Housing: No Difficulty Paying Gas/Electric Bills: No Difficulty Paying for Meds: No Currently Unemployed: No Education: Decline to Answer Difficulty w/ Childcare or Family Care: No Living arrangements: with family Additional living arrangements comments: The patient lives with his of 43 years in [place]. He and his had 4 children 1 of which at . His remaining children are healthy. 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 Spiritual care concerns: No <GONZALO Schwartz Last Filed: 09/12/25 16:15> Course Vital Signs Vital signs: Vital Signs Temperature 36.7 C 09/12/25 14:27 Pulse Rate 72 09/12/25 14:27 Respiratory Rate 18 09/12/25 14:27 Blood Pressure 157/59 H 09/12/25 14:27 Pulse Oximetry 99 09/12/25 14:27 Oxygen Delivery Room Air 09/12/25 14:27 Temperature 36.7 C 09/12/25 14:27 Pulse Rate 89 09/13/25 00:45 Respiratory Rate 18 09/13/25 00:45 Blood Pressure 127/59 L 09/13/25 00:45 Pulse Oximetry 97 09/13/25 00:45 Oxygen Delivery Room Air 09/12/25 14:27 <Lisa Carreno PA-C - Last Filed: 09/12/25 16:15> Vital Signs Temperature 36.7 C 09/12/25 14:27 Pulse Rate 72 09/12/25 14:27 Respiratory Rate 18 09/12/25 14:27 Blood Pressure 157/59 H 09/12/25 14:27 Pulse Oximetry 99 09/12/25 14:27 Oxygen Delivery Room Air 09/12/25 14:27 Temperature 36.7 C 09/12/25 14:27 Pulse Rate 89 09/13/25 00:45 Respiratory Rate 18 09/13/25 00:45 Blood Pressure 127/59 L 09/13/25 00:45 Pulse Oximetry 97 09/13/25 00:45 Oxygen Delivery Room Air 09/12/25 14:27 <Jeremías Ernst MD - Last Filed: 09/13/25 06:24> MDM MDM Narrative Medical decision making narrative: MSE by VICENTA in triage <Lisa Carreno PA-C - Last Filed: 09/12/25 16:15> Differential Diagnosis Differential Diagnosis: differential diagnosis includes electrolyte abnormality, dehydration, chronic hiccups, hyponatremia laboratory studies were obtained that showed a sodium of 136. The patient received a L of normal saline is feeling better is also given both Thorazine and Haldol for his checkups CT head showed no acute abnormality patient was discharged home to follow-up with his primary care provider <Jeremías Ernst MD - Last Filed: 09/13/25 06:24> Lab Data Result diagrams: 09/12/25 19:40 09/12/25 19:40 <Lisa Carreno PA-C - Last Filed: 09/12/25 16:15> Labs: Lab Results 09/12/25 Range/Units 19:40 WBC 12.0 H (4.5-10.0) K/mm3 RBC 4.32 L (4.6-6.20) M/mm3 Hgb 12.3 L (14.0-18.0) g/dL Hct 38.0 L (42.0-52.0) % MCV 88.0 (80-100) fl MCH 28.5 (26-34) pg MCHC 32.4 (32-36) g/dl RDW 14.5 (11.5-14.5) % Plt Count 275 (150-375) k/mm3 MPV 10.5 H (7.4-10.4) fl Immature Gran % (Auto) 0.3 (0-0.5) % Neut % (Auto) 85.3 H (45.5-73.1) % Lymph % (Auto) 10.0 L (18.3-44.2) % [place] % (Auto) 3.1 (2.6-8.5) % Eos % (Auto) 1.0 (0-4.4) % Baso % (Auto) 0.3 (0.2-1.2) % Lymph # (Auto) 1.19 (0.9-3.2) K/mm3 [place] # (Auto) 0.4 (0.1-0.6) K/mm3 Eos # (Auto) 0.1 (0-0.3) K/mm3 Baso # (Auto) 0.0 (0.0-0.1) K/mm3 Abs Immat Gran (auto) 0.04 H (0.00-0.031) K/mm3 Absolute Neuts (auto) 10.2 H (1.3-6.7) K/mm3 Absolute Nucleated RBC 0.000 (0.0-0.012) K/mm3 Nucleated RBC % 0.0 (0.0-0.2) % PT 13.1 (11.1-14.7) Seconds INR 1.0 APTT 35.8 (22.3-36.8) Seconds Sodium 136 L (137-145) mmol/L Potassium 4.6 (3.4-5.0) mmol/L Chloride 98 (98-107) mmol/L Carbon Dioxide 25 (22-30) mmol/L Anion Gap 13 H (4-12) mmol/L BUN 10 D (9-20) mg/dL Creatinine 0.94 (0.7-1.3) mg/dL Estim Creat Clear Calc 66 ml/min Estimated GFR > 60 (59 - ) Glucose 108 (65-110) mg/dL Lactic Acid 1.2 (0.7-2.0) mmol/L Calcium 10.5 H (8.4-10.2) mg/dL Magnesium 2.2 (1.6-2.3) mg/dL Total Bilirubin 0.5 (0.2-1.3) mg/dL AST 23 (17-59) U/L ALT 13 (6-50) U/L Alkaline Phosphatase 75 (38-126) U/L Total Protein 9.4 H (6.3-8.2) g/dL Albumin 5.1 (3.5-5.1) g/dL <Lisa Carreno PA-C - Last Filed: 09/12/25 16:15> Lab Results 09/12/25 Range/Units 19:40 WBC 12.0 H (4.5-10.0) K/mm3 RBC 4.32 L (4.6-6.20) M/mm3 Hgb 12.3 L (14.0-18.0) g/dL Hct 38.0 L (42.0-52.0) % MCV 88.0 (80-100) fl MCH 28.5 (26-34) pg MCHC 32.4 (32-36) g/dl RDW 14.5 (11.5-14.5) % Plt Count 275 (150-375) k/mm3 MPV 10.5 H (7.4-10.4) fl Immature Gran % (Auto) 0.3 (0-0.5) % Neut % (Auto) 85.3 H (45.5-73.1) % Lymph % (Auto) 10.0 L (18.3-44.2) % [place] % (Auto) 3.1 (2.6-8.5) % Eos % (Auto) 1.0 (0-4.4) % Baso % (Auto) 0.3 (0.2-1.2) % Lymph # (Auto) 1.19 (0.9-3.2) K/mm3 [place] # (Auto) 0.4 (0.1-0.6) K/mm3 Eos # (Auto) 0.1 (0-0.3) K/mm3 Baso # (Auto) 0.0 (0.0-0.1) K/mm3 Abs Immat Gran (auto) 0.04 H (0.00-0.031) K/mm3 Absolute Neuts (auto) 10.2 H (1.3-6.7) K/mm3 Absolute Nucleated RBC 0.000 (0.0-0.012) K/mm3 Nucleated RBC % 0.0 (0.0-0.2) % PT 13.1 (11.1-14.7) Seconds INR 1.0 APTT 35.8 (22.3-36.8) Seconds Sodium 136 L (137-145) mmol/L Potassium 4.6 (3.4-5.0) mmol/L Chloride 98 (98-107) mmol/L Carbon Dioxide 25 (22-30) mmol/L Anion Gap 13 H (4-12) mmol/L BUN 10 D (9-20) mg/dL Creatinine 0.94 (0.7-1.3) mg/dL Estim Creat Clear Calc 66 ml/min Estimated GFR > 60 (59 - ) Glucose 108 (65-110) mg/dL Lactic Acid 1.2 (0.7-2.0) mmol/L Calcium 10.5 H (8.4-10.2) mg/dL Magnesium 2.2 (1.6-2.3) mg/dL Total Bilirubin 0.5 (0.2-1.3) mg/dL AST 23 (17-59) U/L ALT 13 (6-50) U/L Alkaline Phosphatase 75 (38-126) U/L Total Protein 9.4 H (6.3-8.2) g/dL Albumin 5.1 (3.5-5.1) g/dL <Jeremías Ernst MD - Last Filed: 09/13/25 06:24> Imaging Data Radiologist's impression: ITS Impressions Head CT 09/12/25 16:34 IMPRESSION: 1. No acute intracranial abnormality. <Lisa Carreno PA-C - Last Filed: 09/12/25 16:15> ITS Impressions Head CT 09/12/25 16:34 IMPRESSION: 1. No acute intracranial abnormality. <Jeremías Ernst MD - Last Filed: 09/13/25 06:24> Discharge Plan Discharge Clinical Impression: Generalized weakness, Chronic hiccoughs <Lisa Carreno PA-C - Last Filed: 09/12/25 16:15> Patient Disposition: Home <GONZALO Schwartz Last Filed: 09/12/25 16:15> Condition: Stable <GONZALO Schwartz Last Filed: 09/12/25 16:15> Instructions: Antibiotic Form, Hiccups (ED), Weakness (ED) <GONZALO Schwartz Last Filed: 09/12/25 16:15> Patient Language: Syrian <Lisa Carreno PA-C - Last Filed: 09/12/25 16:15> Prescriptions: No Action losartan 50 mg tablet 50 mg PO DAILY pravastatin 80 mg tablet 80 mg PO DAILY montelukast 10 mg tablet 10 mg PO HS dorzolamide-timolol 22.3-6.8 mg/mL drops 1 drp LEFT EYE TID gabapentin 300 mg capsule 300 mg PO DAILY Patient Comments: Pt stated he takes it TID budesonide-formoterol 80-4.5 mcg/actuation HFA aerosol inhaler 2 puff INHALATION Q12H famotidine 20 mg Tablet 20 mg PO Q12HR Qty: 60 0RF metoclopramide HCl [Reglan] 10 mg tablet 10 mg PO Q6H PRN (Reason: nausea and vomiting) Qty: 14 0RF cyanocobalamin (vitamin B-12) 100 mcg Tablet 2,000 mcg PO DAILY Patient Comments: Patient stated he is taking 1000 mcg instead of 2000 mcg cholecalciferol (vitamin D3) [Vitamin D3] 25 mcg (1,000 unit) Capsule 25 mcg PO DAILY aspirin [Adult Aspirin Regimen] 81 mg tablet,delayed release (DR/EC) 81 mg PO DAILY chlorpromazine 25 mg Tablet 25 mg PO Q6H PRN (Reason: Hiccups) Qty: 60 0RF baclofen 10 mg tablet 10 mg PO Q12H pantoprazole [Protonix] 40 mg tablet,delayed release (DR/EC) 40 mg PO BID 30 Days Qty: 60 5RF sucralfate 100 mg/mL suspension 1,000 mg PO ACHS Qty: 300 3RF <Lisa Carreno PA-C - Last Filed: 09/12/25 16:15> Follow-up/Referrals: Celine,TRAVIS Lawler [Primary Care Provider, Unknown] <Lisa Carreno PA-C - Last Filed: 09/12/25 16:15> Time of Disposition: 00:26 <Lisa Carreno PA-C - Last Filed: 09/12/25 16:15> 00:26 <Jeremías Ernst MD - Last Filed: 09/13/25 06:24>
--- NOTE | 2025-09-12 16:09 | ECG_ITS ---
Test Date: 2025-09-12 19:18:08 Measurements Intervals [place] Rate: 74 P: 50 TX: 138 QRS: 58 QRSD: 86 T: 62 QT: 382 QTc: 426 Interpretive Statements SINUS RHYTHM MINIMAL Q WAVES- ANTEROLATERAL LEADS BASELINE ARTIFACT- I, II, III, AVR, AVL, AVF, V1-V6 BORDERLINE ECG Compared to ECG 08/29/2025 19:56:06 No significant changes Electronically Signed On 09-12-2025 19:36:25 CUT FILER by Mika Lopez D.O.
--- OUTSIDE RECORDS SUMMARY | 2025-09-12 19:19 | XMS_ITS | Clinical Summary ---
Author Organization [facility] [address] [facility] Address [address] [place] [address] Care Team Providers Care Superintendent Water And [employer] Name Role Phone Nuris Berger Primary Care Provider [phone] Jonatan Stokes MD Unavailable Irma Bajwa MD Unavailable [phone] Allergies Active Allergy Reactions Criticality Noted Date [...] ronic obstructive pulmonary disease, unspecified COPD type ([facility]) INHALE 2 PUFFS BY MOUTH TWICE [...] 11/24/2023 Assessment & Plan (11/19/2024 11:45 PM BIOMEDICAL EQUIPMENT TECH): Supplement Assessment & Plan (05/20/2024 7:36 PM CDT): Supplement Fatigue 12/12/2022 Assessment & Plan (05/20/2024 7:37 PM CDT): Probably multifactorial. Check labs and followup to re-evaluate Assessment & Plan (11/24/2023 10:35 AM BIOMEDICAL EQUIPMENT TECH): Probably multifactorial. Check labs and followup to [...] 01/16/2022 Assessment & Plan (11/19/2024 11:44 PM BIOMEDICAL EQUIPMENT TECH): Chronic hiccups for 5+ years Has been [...] to the ER. ER recommended referral to [facility] but patient states he can't go to [...] weeks Assessment & Plan (11/24/2023 10:34 AM BIOMEDICAL EQUIPMENT TECH): Patient has persistent chronic hiccups that come [...] monitor Assessment & Plan (08/15/2023 5:01 PM BIOMEDICAL EQUIPMENT TECH): Chronic hiccups for years. Has tried multiple interventions along with multiple workups from specialists including Neurology pulmonology and GI. Continue current regimen. Stressed importance of limiting water intake when he has the hiccups spells as this has been leading to hyponatremia requiring hospitalization. Assessment & Plan (08/11/2023 8:45 AM BIOMEDICAL EQUIPMENT TECH): Patient with chronic hiccups. Have had difficulty [...] levels. Assessment & Plan (08/15/2022 6:45 PM BIOMEDICAL EQUIPMENT TECH): Patient has consulted with most multiple specialists [...] hiccups. Assessment & Plan (08/15/2023 5:02 PM BIOMEDICAL EQUIPMENT TECH): Chronic hiccups for years. Has tried multiple interventions along with multiple workups from specialists including Neurology pulmonology and GI. Continue current regimen. Stressed importance of limiting water intake when he has the hiccups spells as this has been leading to hyponatremia requiring hospitalization. Assessment & Plan (08/11/2023 8:46 AM BIOMEDICAL EQUIPMENT TECH): Hyponatremia secondary to water intake with chronic [...] Mitchell EGD: severe ulcerative esophagitis. PPI bid residential, carafate and avoid NSAIDs/ASA---->rep EGD in 12/2025 Assessment & Plan (11/19/2024 11:44 PM BIOMEDICAL EQUIPMENT TECH): Continue PPI p.r.n. Assessment & Plan (05/20/2024 7:35 PM CDT): Continue pantoprazole p.r.n. Assessment & Plan (11/24/2023 10:33 AM BIOMEDICAL EQUIPMENT TECH): Continue pantoprazole p.r.n. Assessment & Plan (04/08/2023 8:48 PM CDT): Continue PPI p.r.n. Assessment & Plan (12/12/2022 9:43 PM CDT): Insert PPI Assessment & Plan (08/15/2022 6:45 PM BIOMEDICAL EQUIPMENT TECH): Continue PPI prn Assessment & Plan (02/09/2021 8:17 PM CDT): Continue PPI Assessment & Plan (07/29/2020 7:33 AM BIOMEDICAL EQUIPMENT TECH): Continue PPI Assessment & Plan (03/27/2020 8:01 AM CDT): Dr. Stokes changed him from omeprazole to Pantoprazole for the hiccups. Pt hasn't noted any difference in GERD sxs (still well controlled) or hiccups. Assessment & Plan (09/26/2019 7:38 AM BIOMEDICAL EQUIPMENT TECH): Continue PPI Assessment & Plan (07/14/2019 8:46 AM CDT): Discussed GERD at length including anatomy, behavioral changes (raise HOB, meal timings), dietary changes and medication options. Reviewed risks, benefits alternatives, side effects and proper use. Followup if sxs worsen or has hematochezia or hematemeis. Start PPI Chronic obstructive pulmonary disease 06/26/2019 Overview (06/26/2019): Noted on 06/2019 LDCT Assessment & Plan (11/19/2024 11:44 PM BIOMEDICAL EQUIPMENT TECH): Patient with allergies and COPD. Continue Singulair albuterol and Symbicort. Follows with Dr. Valdes. Assessment & Plan (05/20/2024 7:35 PM CDT): Continue per Dr. Valdes. Continue with his Symbicort and albuterol inhalers. Low-dose CT will be scheduled for June 16, 2024. Assessment & Plan (11/24/2023 10:33 AM BIOMEDICAL EQUIPMENT TECH): COPD. 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 Assessment & Plan (04/08/2023 8:48 PM CDT): Encouraged smoking cessation. Continue per Dr. Hammond pulmonology. He is on albuterol Symbicort and Singulair Assessment & Plan (12/12/2022 9:43 PM CDT): Stop smoking. Continue per Pulmonary. Continue Symbicort Singulair and albuterol. Continue monitoring low-dose CTs as instructed Assessment & Plan (08/15/2022 6:44 PM BIOMEDICAL EQUIPMENT TECH): Stop smoking. Continue current plan per Pulmonary Assessment & Plan (08/01/2021 9:34 PM BIOMEDICAL EQUIPMENT TECH): Continue per Pulmonary Dr. Valdes Assessment & Plan (02/09/2021 8:15 PM CDT): Stop smoking. Continue per Dr. Valdes Assessment & Plan (07/29/2020 7:32 AM BIOMEDICAL EQUIPMENT TECH): Continue per Pulm Assessment & Plan (03/27/2020 8:00 AM CDT): Stop smoking. He declines starting inhalers or referral to Pulmonary Assessment & Plan (09/26/2019 10:27 PM BIOMEDICAL EQUIPMENT TECH): This is a significant, separately identifiable problem [...] order Assessment & Plan (07/29/2020 7:33 AM BIOMEDICAL EQUIPMENT TECH): Needs to repeat ---Dr. Valdes has already ordered Assessment & Plan (03/27/2020 8:00 AM CDT): 06/2019 LDCT Several 2-3mm nodules, probable benign LungRADs 2 --- repeat 06/2020 Assessment & Plan (09/26/2019 10:26 PM BIOMEDICAL EQUIPMENT TECH): 06/2019 LDCT Several 2-3mm nodules, probable benign LungRADs 2 --- repeat 06/2020 Hyperplastic rectal polyp 05/20/2019 Overview (05/20/2019): Colonoscopy 01/29/2012 at [facility]--->2021 Assessment & Plan (05/28/2019 7:33 PM CDT): Recvd colonoscopy and due to repeat in 2021 Hiatal hernia 05/20/2019 Mixed hyperlipidemia 05/20/2019 Assessment & Plan (11/19/2024 11:45 PM BIOMEDICAL EQUIPMENT TECH): Encouraged patient to follow low fat/low chol [...] 80 Assessment & Plan (11/24/2023 10:34 AM BIOMEDICAL EQUIPMENT TECH): Encouraged patient to follow low fat/low chol diet like the Mediterranean diet. Increase good fats in the diet. Increase exercise. Monitor labs as needed. Continue pravastatin 80 Assessment & Plan (08/15/2023 5:03 PM BIOMEDICAL EQUIPMENT TECH): Encouraged patient to follow low fat/low chol [...] Zetia Assessment & Plan (08/01/2021 9:33 PM BIOMEDICAL EQUIPMENT TECH): Encouraged patient to follow fat/low chol diet [...] statin Assessment & Plan (07/29/2020 7:34 AM BIOMEDICAL EQUIPMENT TECH): Encouraged patient to follow fat/low chol diet like the Mediterranean diet. Increase good fats in the diet. Increase exercise. Monitor labs as needed. Assessment & Plan (03/27/2020 8:02 AM CDT): Encouraged patient to continue low fat/low chol diet. Continue exercise. Increase good fats in the diet. Monitor labs as needed. Stable with zetia and pravastatin Assessment & Plan (09/26/2019 7:39 AM BIOMEDICAL EQUIPMENT TECH): Encouraged patient to continue low fat/low chol [...] change Assessment & Plan (08/15/2023 5:03 PM BIOMEDICAL EQUIPMENT TECH): Patient is legally blind. Continue with Ophthalmology Assessment & Plan (04/08/2023 8:47 PM CDT): No change Assessment & Plan (03/27/2020 8:02 AM CDT): No change Assessment & Plan (09/26/2019 7:39 AM BIOMEDICAL EQUIPMENT TECH): No change Assessment & Plan (05/28/2019 7:35 PM CDT): No change Cigarette smoker 05/20/2019 Assessment & Plan (08/11/2023 8:45 AM BIOMEDICAL EQUIPMENT TECH): Encouraged smoking cessation. Discussed 3 minutes. Reviewed options for assistance with cessation. Reviewed terminal press operator sequela associated with smoking. Pt declines assistance at this time but may contact the office at anytime for further help as they desire. Assessment & Plan (04/08/2023 8:47 PM CDT): Encouraged smoking cessation. Discussed 3 minutes. Reviewed options for assistance with cessation. Reviewed terminal press operator sequela associated with smoking. Pt declines assistance at this time but may contact the office at anytime for further help as they desire. Low-dose CT will be due in May. It is already scheduled Assessment & Plan (12/12/2022 9:42 PM CDT): Encouraged smoking cessation. Discussed 3 minutes. Reviewed options for assistance with cessation. Reviewed terminal press operator sequela associated with smoking. Pt declines assistance at this time but may contact the office at anytime for further help as they desire. Assessment & Plan (08/15/2022 6:44 PM BIOMEDICAL EQUIPMENT TECH): Encouraged smoking cessation. Discussed 3 minutes. Reviewed options for assistance with cessation. Reviewed terminal press operator sequela associated with smoking. Pt declines [...] desire. Assessment & Plan (08/01/2021 9:33 PM BIOMEDICAL EQUIPMENT TECH): Encouraged smoking cessation. Discussed 3 minutes. Reviewed options for assistance with cessation. Reviewed terminal press operator sequela associated with smoking. Pt declines assistance at this time but may contact the office at anytime for further help as they desire. Assessment & Plan (05/17/2021 11:41 PM CDT): Encouraged smoking cessation. Discussed 3 minutes. Reviewed options for assistance with cessation. Reviewed terminal press operator sequela associated with smoking. Pt declines assistance at this time but may contact the office at anytime for further help as they desire. Assessment & Plan (03/12/2021 12:31 PM CDT): Encouraged smoking cessation. Discussed 3 minutes. Reviewed options for assistance with cessation. Reviewed terminal press operator sequela associated with smoking. He is slowing down. Offered assistance. May call if decides he wants help Assessment & Plan (07/29/2020 7:34 AM BIOMEDICAL EQUIPMENT TECH): Encouraged smoking cessation. Discussed 3 minutes. Reviewed [...] desire. Assessment & Plan (09/26/2019 7:39 AM BIOMEDICAL EQUIPMENT TECH): Encouraged smoking cessation. Discussed 3 minutes. Reviewed options for assistance with cessation. Reviewed terminal press operator sequela associated with smoking. Pt declines assistance at this time but may contact the office at anytime for further help as they desire. Assessment & Plan (07/14/2019 7:05 PM CDT): Encouraged smoking cessation. Discussed 3 minutes. Reviewed options for assistance with cessation. Reviewed terminal press operator sequela associated with smoking. Pt declines [...] 05/20/2019 Assessment & Plan (11/19/2024 11:45 PM BIOMEDICAL EQUIPMENT TECH): Pre-diabetes/hyperglycemia is a precursor to Dm. Stressed [...] diabetes. Assessment & Plan (11/24/2023 10:34 AM BIOMEDICAL EQUIPMENT TECH): Pre-diabetes/hyperglycemia is a precursor to Dm. Stressed importance of working on diet (decrease your simple sugars and one carbohydrate with each meal) and increase you exercise to achieve weight loss and this will help prevent you from progressing to diabetes. Assessment & Plan (08/15/2023 5:03 PM BIOMEDICAL EQUIPMENT TECH): Pre-diabetes/hyperglycemia is a precursor to Dm. Stressed [...] diabetes. Assessment & Plan (08/01/2021 9:33 PM BIOMEDICAL EQUIPMENT TECH): Pre-diabetes/hyperglycemia is a precursor to Dm. Stressed [...] diabetes. Assessment & Plan (07/29/2020 7:34 AM BIOMEDICAL EQUIPMENT TECH): Pre-diabetes is a precursor to Dm. Stressed [...] labs Assessment & Plan (09/26/2019 10:27 PM BIOMEDICAL EQUIPMENT TECH): This is a significant, separately identifiable problem [...] 025 Assessment & Plan (11/19/2024 11:45 PM BIOMEDICAL EQUIPMENT TECH): Encouraged healthy lifestyle, good nutrition and exercise. Encouraged Calcium and Vitamin D and weight bearing exercise for bone health. Reviewed immunizations Reviewed age appropirate screenings. BMI 23.0-23.9, adult 06/20/2024 025 Assessment & Plan (10/30/2024 8:57 AM BIOMEDICAL EQUIPMENT TECH): Weight/BMI is in healthy range. Continue healthy [...] 024 Assessment & Plan (11/24/2023 10:35 AM BIOMEDICAL EQUIPMENT TECH): Encouraged healthy lifestyle, good nutrition and exercise. Encouraged Calcium and Vitamin D and weight bearing exercise for bone health. Reviewed immunizations Reviewed age appropirate screenings. Need for influenza vaccination 08/15/2023 11/24/2023 Assessment & Plan (08/15/2023 5:04 PM BIOMEDICAL EQUIPMENT TECH): Flu vaccine updated in the office today BMI 22.0-22.9, adult 07/22/2023 024 Assessment & Plan (08/11/2023 8:12 AM BIOMEDICAL EQUIPMENT TECH): Weight/BMI is in healthy range. Continue healthy [...] 04/03/2023 Assessment & Plan (08/15/2022 6:45 PM BIOMEDICAL EQUIPMENT TECH): Flu updated in the office today BMI [...] test outpatient. Was referred to an outside unit aide. Encouraged to consider seeing a [facility] Medical group of cardiologists so all of his providers are in the same system. He is in agreement. Referral made to Dr. Eduardo as he has multiple risk factors. BMI 23.0-23.9, adult 01/21/2022 022 Assessment & Plan (01/21/2022 11:10 AM CDT): Weight/BMI is in healthy range. Continue healthy lifestyle to maintain. BMI 21.0-21.9, adult 08/01/2021 022 Assessment & Plan (08/01/2021 7:28 AM BIOMEDICAL EQUIPMENT TECH): Weight/BMI is in healthy range. Continue healthy lifestyle to maintain. Medicare annual wellness visit, subsequent 08/01/2021 08/15/2022 Assessment & Plan (08/01/2021 9:34 PM BIOMEDICAL EQUIPMENT TECH): Encouraged healthy lifestyle, good nutrition and exercise. Encouraged Calcium and Vitamin D and weight bearing exercise for bone health. Reviewed immunizations. Reviewed age appropirate screenings. Medicare Wellness Documentation is completed within the chart Fatigue 05/17/2021 05/02/2022 Assessment & Plan (08/01/2021 9:34 PM BIOMEDICAL EQUIPMENT TECH): Probably multifactorial. Check labs and followup to [...] 024 Assessment & Plan (11/24/2023 10:34 AM BIOMEDICAL EQUIPMENT TECH): Weight/BMI is in healthy range. Continue healthy [...] 05/02/2022 Assessment & Plan (07/29/2020 7:34 AM BIOMEDICAL EQUIPMENT TECH): Probably multifactorial. Check labs and followup to re-evaluate Need for immunization against influenza 07/29/2020 11/24/2020 Assessment & Plan (07/29/2020 7:34 AM BIOMEDICAL EQUIPMENT TECH): Updated in office today BMI 22.0-22.9, adult 03/27/2020 024 Assessment & Plan (05/20/2024 7:37 PM CDT): Weight/BMI is in healthy range. Continue healthy lifestyle to maintain. Assessment & Plan (07/29/2020 7:34 AM BIOMEDICAL EQUIPMENT TECH): Weight/BMI is in healthy range. Continue healthy [...] 020 Assessment & Plan (09/26/2019 7:39 AM BIOMEDICAL EQUIPMENT TECH): Weight/BMI is in healthy range. Continue healthy lifestyle to maintain. Annual physical exam 09/26/2019 020 Assessment & Plan (09/26/2019 7:40 AM BIOMEDICAL EQUIPMENT TECH): Encouraged healthy lifestyle, good nutrition and exercise. Encouraged Calcium and Vitamin D and weight bearing exercise for bone health. Reviewed immunizations Reviewed age appropirate screenings. Influenza vaccine refused 09/26/2019 Assessment & Plan (09/26/2019 7:40 AM BIOMEDICAL EQUIPMENT TECH): Encouraged vaccine. Reviewed risks/ benefits. Patient refuses and accepts risks. Esophagitis determined by endoscopy 05/20/2019 05/02/2022 Gastritis 05/20/2019 05/02/2022 Essential (primary) hypertension 05/20/2019 05/20/2024 Assessment & Plan (11/24/2023 10:34 AM BIOMEDICAL EQUIPMENT TECH): Bp is stable/in acceptable range for any co-morbidities. Encouraged to limit sodium intake and exercise for weight control. Continue losartan 50 Assessment & Plan (08/15/2023 5:04 PM BIOMEDICAL EQUIPMENT TECH): Bp is stable/in acceptable range for any co-morbidities. Encouraged to limit sodium intake and exercise for weight control. Continue per Dr. Curtis Assessment & Plan (08/11/2023 8:45 AM BIOMEDICAL EQUIPMENT TECH): Bp is stable/in acceptable range for any [...] losartan Assessment & Plan (08/15/2022 6:44 PM BIOMEDICAL EQUIPMENT TECH): Bp is stable/in acceptable range for any [...] 50 Assessment & Plan (08/01/2021 9:33 PM BIOMEDICAL EQUIPMENT TECH): Bp is stable/in acceptable range for any [...] Losartan/HCTZ Assessment & Plan (07/29/2020 7:33 AM BIOMEDICAL EQUIPMENT TECH): Bp is stable/in acceptable range for any co-morbidities. Encouraged to limit sodium intake and exercise for weight control. Losartan and HCTZ Assessment & Plan (03/27/2020 8:00 AM CDT): Bp is stable/in acceptable range for any co-morbidities. Encouraged to limit sodium intake and exercise for weight control. Continue losartan/HCTZ Assessment & Plan (09/26/2019 7:38 AM BIOMEDICAL EQUIPMENT TECH): Bp is stable/in acceptable range for any [...] 01/21/2022 Assessment & Plan (08/01/2021 9:34 PM BIOMEDICAL EQUIPMENT TECH): Persistent hiccups. Has consulted with multiple providers [...] omeprazole Assessment & Plan (07/29/2020 7:32 AM BIOMEDICAL EQUIPMENT TECH): Continue per ENT/Pulm. He is responding to BID omeprazole. Will monitor Assessment & Plan (03/27/2020 7:59 AM CDT): Dr. Stokes started him on Pantoprazole. He hasn't noted much difference. Needs to followup to complete workup. Encouraged patient to call and make appointment. Assessment & Plan (09/26/2019 10:26 PM BIOMEDICAL EQUIPMENT TECH): This is a significant, separately identifiable problem that was evaluated and managed on the same day as the wellness exam Less frequent than in the past. Continue the PPI and monitor Rx sent to pharmacy. Assessment & Plan (08/24/2019 9:04 AM BIOMEDICAL EQUIPMENT TECH): Improving with the PPI. Continue PPI and [...] 2018 Assessment & Plan (08/24/2019 9:04 AM BIOMEDICAL EQUIPMENT TECH): Encouraged vaccine. Reviewed risks/ benefits. Patient refuses [...] Care Team Description 09/03/2025 DEBBIE IP Outreach [facility] Accountable [address] [address] Ayla Dugan LPN 08/30/2025 Orders Only [facility] Health Information Management [address] [place] [address] Nuris Berger PA 08/29/2025 Orders Only [facility] Health Information Management [address] [place] [address] Scanning, Provider 07/31/2025 DEBBIE ED Outreach [facility] Accountable Care [address] [address] Roxana Fernandez MA 07/31/2025 DEBBIE IP Outreach [address] [address] Roxana Fernandez MA 07/31/2025 Telephone [facility] Medical Group Family Medicine [address] [address] Nuris Berger PA 06/26/2025 9:30 AM CDT Office Visit [address] [place] [address] Nuris Berger PA Hyponatremia (Primary Dx); Psychogenic polydipsia; Chronic hiccups; BMI 23.0-23.9, adult; Generalized body aches; Legally blind; Flu vaccine need 06/21/[address] [place] [address] Nuris Berger PA 06/20/2025 DEBBIE IP Outreach [address] [address] [address] [place] 06/19/2025 DEBBIE IP Outreach [address] [address] [address] MA 06/18/2025 DEBBIE IP Outreach [address] [address] [address] [place] from Last 3 Months [...] In the past 12 months has e [employer], gas, oil, or water [employer] threatened to shut off services in your [...] often do you attend chur ch or congregational services? Patient declined 12/03/2023 Do you belong [...] place to sleep or slept in a penitentiary (including now)? No 12/03/2023 AUDIT-C Answer Date [...] on file Legal Sex Male 12:22 AM BIOMEDICAL EQUIPMENT TECH Gender Identity Not on file Sexual Orientation [...] Read Routine (OP Routine) 10/03/2024 9:25 AM BIOMEDICAL EQUIPMENT TECH Pulmonary nodules HEPATITIS PANEL, ACUTE Routine 05/03/2022 [...] PSA 1.33 < OR = 4.00 ng/mL [employer] [facility] Comment: The total PSA value from this assay system is standardized against the WHO standard. The test result will be approximately 20% lower when compared to the equimolar-standardized total PSA ([employer] [place]). Comparison of serial PSA results should be [...] Nuris ROBLES LAB BLOOD ORDERABLES Final Result [facility] [address] [place] [address] * CT Chest WO Contrast F/U Lung Screen Protocol (10/03/2024 9:25 AM BIOMEDICAL EQUIPMENT TECH) Anatomical Region Laterality Modality Chest N/A Computed Tomogra phy 10/03/2024 7:11 PM BIOMEDICAL EQUIPMENT TECH Narrative 10/03/2024 7:17 PM BIOMEDICAL EQUIPMENT TECH EXAM DESCRIPTION: CT CHEST WO CONTRAST F/U [...] Estuardo Ortiz M.D. KT T: Report ID: [id number] Reading Location: [place] [address] us Tasia Hoffman MD IM CT PROCEDURES [...] 19. Hep C Ab Nonreactive Nonreactive [facility] Comment: Interpretive Data Nonreactive: Antibodies to HCV [...] revised on 2019. HepBsAg Nonreactive Nonreactive [facility] Blood 05/03/2022 5:40 AM CDT 05/03/2022 6:36 AM CDT Pamela Gongora DO LAB MICROBIOLOGY - GENERAL OR DERABLES Final Result [facility] [address] [facility] Department [place] [address] * (ABNORMAL) COLONOSCOPY (07/14/2021) Jame Mg MD HEALTH MAINTENANCE Edited Result - Final from Last 3 Months or Most Recently Relevant to Health Maintenance Insurance TNA MEDICARE GOLD AETNA MEDICARE GOLD AETNA MEDICARE GOLD Advance Directives For more information, please contact: [phone] * Full Code (Latest Code Status on [...] 10:34 PM 11/16/2022 9:56 PM Care Teams Superintendent [employer] And [employer] Relationship Specialty Start Date End Date Nuris Berger PA [address] [facility] [address] [place] [address] PCP - General Internal Medicine 12/28/18 Jonatan Stokes MD [facility] [employer] [place] [address] Consulting Physician Otolaryngology 03/27/20 Irma Bajwa MD [address] [facility] [place] [address] Consulting Physician Neurology 05/07/22
--- OUTSIDE RECORDS SUMMARY | 2025-09-12 19:19 | XMS_ITS | Encounter Summary ---
Author Organization [facility] Healthcare Address [address] [place] [address] Care Team Providers Care Communication Clerk Name Role Phone Nuris Berger Primary Care Provider [phone] Jonatan Stokes MD Unavailable [phone] Irma Bajwa MD Unavailable [phone] Ayla Dugan LPN Unavailable [phone] [place] Unavailable Unavailable Roxana Fernandez MA Unavailable [phone] Encounter Details Date Type Department Care Team (Late st Contact Info) Description 12/26/2024 Orders Only [facility] Health Information Management [address] [place] [address] Scanning, Provider Social History Tobacco Use Types Packs/Day Years Used Date Smoking Tobacco: Former Cigarettes 0.8 40 0 09/1981 - 09/2021 Smokeless Tobacco: Never Alcohol Use Standard Drinks/Week Comments Yes 0 (1 standard drink = 0.6 oz pur e alcohol) social [facility] Utilities Answer Date Recorded In the past 12 months has [employer] electric, gas, oil, or water company threatened [...] often do you attend chur ch or buddhist services? Patient declined 12/03/2023 Do you belong to any clubs o r organizations such as oriental orthodox groups, unions, fraternal or athletic groups, or [...] in a jail (including now)? No 12/03/2023 Personal Safety Answer [...] on filedocumented in this encounter Care Teams Communication Clerk Relationship Specialty Start Date End Date Nuris Berger PA [address] [facility] [address] [place] [address] PCP - General Internal Medicine 12/28/18 Jonatan Stokes MD [address] [place] [address] Consulting Physician Otolaryngology 03/27/20 Irma Bajwa MD [address] [address] Consulting Physician Neurology 05/07/22 Ayla Dugan LPN [address] [place] [address] [address] [place] [address] Mastic Floor Layer 03/30/25 03/30/25 Bro[place] [address] MA [address] [place] [address] [facility] Administrative Assistant 06/18/25 06/19/25 Roxana Fernandez MA [address] [place] [address] [facility] Administrative Assistant 07/31/25 07/31/25 documented as of this encounter
--- OUTSIDE RECORDS SUMMARY | 2025-09-12 19:19 | XMS_ITS | Encounter Summary ---
Author Organization [facility] Healthcare Address [address] [place] [address] Care Team Providers Care Auction Clerk Name Role Phone Nuris Berger Primary Care Provider [phone] Jonatan Stokes MD Unavailable [phone] Irma Bajwa MD Unavailable [phone] Ayla Dugan LPN Unavailable [phone] MA Unavailable Unavailable Roxana Fernandez MA Unavailable [phone] Encounter Details Date Type Department Care Team (Late st Contact Info) Description 03/26/2025 Orders Only [facility] [place] Health Information Management [address] [place] [address] Scanning, Provider Social History Tobacco Use Types Packs/Day Years Used Date Smoking Tobacco: Former Cigarettes 0.8 40 0 09/1981 - 09/2021 Smokeless Tobacco: Never Alcohol Use Standard Drinks/Week Comments Yes 0 (1 standard drink = 0.6 oz pur e alcohol) social [facility] Utilities Answer Date Recorded In the past 12 months has [employer] electric, gas, oil, or water company threatened [...] any clubs o r organizations such as orthodox groups, unions, fraternal or athletic groups, [...] on file 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 [address] [place] [address] PCP - General Internal Medicine 12/28/18 Jonatan Stokes MD [address] [place] [address] Consulting Physician Otolaryngology 03/27/20 Irma Bajwa MD [address] [place] [address] Consulting Physician Neurology 05/07/22 Ayla Dugan LPN [address] [place] [address] [address] [place] [address] Director Of Market Research 03/30/25 03/30/25 Brooke Plaza MA [address] [place] [address] ACO Care Catering And Events Manager 06/18/25 06/19/25 Roxana Fernandez MA [address] [place] [address] ACO Care Catering And Events Manager 07/31/25 07/31/25 documented as of this encounter
--- OUTSIDE RECORDS SUMMARY | 2025-09-12 19:19 | XMS_ITS | Encounter Summary ---
Author Organization [facility] Healthcare Address [address] [place] [address] Care Team Providers Care Staff Electronic Warfare Officer Name Role Phone Nuris Berger Primary Care Provider [phone] Jonatan Stokes MD Unavailable [phone] Irma Bajwa MD Unavailable [phone] Ayla Dugan LPN Unavailable [phone] MA Unavailable Unavailable Roxana Fernandez MA Unavailable [phone] Encounter Details Date Type Department Care Team (Late st Contact Info) Description 12/21/2024 [place] Only [facility] [place] Information Management [address] [place] [address] Scanning, Provider Social History Tobacco Use Types Packs/Day Years Used Date Smoking Tobacco: Former Cigarettes 0.8 40 0 09/1981 - 09/2021 Smokeless Tobacco: Never Alcohol Use Standard Drinks/Week Comments Yes 0 (1 standard drink = 0.6 oz pur e alcohol) social [facility] Utilities Answer Date Recorded In the past 12 months has [employer] electric, gas, oil, or water company threatened [...] often do you attend chur ch or mandaen services? 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 Gender Identity Not on file Sexual Orientation [...] on filedocumented in this encounter Care Teams Staff Electronic Warfare Officer Relationship Specialty Start Date End Date Nuris Berger PA [address] [place] [address] PCP - General Internal Medicine 12/28/18 Jonatan Stokes MD [address] [place] [address] Consulting Physician Otolaryngology 03/27/20 Irma Bajwa MD [facility] [address] Consulting Physician Neurology 05/07/22 Ayla Dugan LPN [address] [place] [address] Automotive Starter Repairer 03/30/25 03/30/25 Brooke Plaza MA [address] [place] [address] ACO Care Dry Cleaning Machine Operator 06/18/25 06/19/25 Roxana Fernandez MA [address] [place] [address] ACO Care Dry Cleaning Machine Operator 07/31/25 07/31/25 documented as of this encounter
--- OUTSIDE RECORDS SUMMARY | 2025-09-12 19:19 | XMS_ITS | Clinical Summary ---
Author Organization [facility] Address [facility] [place] [address] Care Team Providers Care Machine Try Out Setter Name Role Phone Nuris Berger Primary Care Provider [phone] Allergies No known active allergies Medications albuterol [...] Comments Blood Pressure 120/62 09/04/2021 8:52 AM VENEER LATHE OPERATOR Pulse 82 09/04/2021 8:52 AM VENEER LATHE OPERATOR Temperature 36.3 C (97.4 F) 09/04/2021 8:52 AM VENEER LATHE OPERATOR Respiratory Rate 16 09/04/2021 8:52 AM VENEER LATHE OPERATOR Oxygen Saturation 97% 09/04/2021 8:52 AM VENEER LATHE OPERATOR Inhaled Oxygen Concentration - - Weight 64.4 kg (142 lb) 09/04/2021 8:52 AM VENEER LATHE OPERATOR Height 172.7 cm (5' 8) 09/04/2021 8:52 AM VENEER LATHE OPERATOR Body Mass Index 21.59 09/04/2021 8:52 AM VENEER LATHE OPERATOR Plan of Treatment Health Maintenance Due Date [...] this topic Insurance A[employer] MEDICARE Care Teams Machine Try Out Setter Relationship Specialty Start Date End Date Nuris Berger PA [address] [place] [address] PCP - General PHYSICIAN READING INTERVENTIONIST 06/09/21
--- OUTSIDE RECORDS SUMMARY | 2025-09-12 19:19 | XMS_ITS | Encounter Summary ---
Author Organization [facility] Healthcare Address [address] [place] [address] Care Team Providers Care Utilities Equipment Repairer Name Role Phone Nuris Berger Primary Care Provider [phone] Jonatan Stokes MD Unavailable [phone] Irma Bajwa MD Unavailable [phone] MA Unavailable Unavailable Roxana Fernandez MA Unavailable [phone] Encounter Details Date Type Department Care Team (Late st Contact Info) Description 05/29/[address] [facility] [place] [address] [place] [address] Scanning, Provider Social History Tobacco Use Types Packs/Day Years Used Date Smoking Tobacco: Former Cigarettes 0.8 40 0 09/1981 - 09/2021 Smokeless Tobacco: Never Alcohol Use Standard Drinks/Week Comments Yes 2 (1 standard drink = 0.6 oz pur e alcohol) social [facility] Utilities Answer Date Recorded In the past 12 months has [employer] electric, gas, oil, or water company threatened [...] 12/03/2023 How often do you attend [facility] or faith services? Patient declined 12/03/2023 Do you belong [...] in a longterm (including now)? 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[employer] Gender Identity Not on file Sexual Orientation [...] on filedocumented in this encounter Care Teams Utilities Equipment Repairer Relationship Specialty Start Date End Date Nuris Berger PA [address] [facility] [address] [place] [address] PCP - General Internal Medicine 12/28/18 Jonatan Stokes MD [address] [place] [address] Consulting Physician Otolaryngology 03/27/20 Irma Bajwa MD [address] [place] [address] Consulting Physician Neurology 05/07/22 Brooke Plaza MA [address] [place] [address] ACO Care Oysterman 06/18/25 06/19/25 Roxana Fernandez MA [address] [place] [address] ACO Care Oysterman 07/31/25 07/31/25 documented as of this encounter
--- OUTSIDE RECORDS SUMMARY | 2025-09-12 19:19 | XMS_ITS | Clinical Summary ---
Author Organization [facility] Address [address] [place] [address] Care Team Providers Care Blow Moulding Machine Operator Name Role Phone Nuris Berger PA-C Primary Care Provider [phone] Source Comments [facility],non-owned Affiliates and Associated Physician Practices is amultiple site organization consisting of ambulatory clinics and hospital sitesin [place], [place], [place] and [place]. This disclosure is being madepursuant to the Care Everywhere program and may not contain all information available regarding this patient. Last updated 18.[facility] Allergies Active Allergy Reactions Criticality Noted Date [...] tablet 06/17/2023 Active ergocalciferol (Drisdol) 1.25 MG (28792 UT) capsule Take 1 (one) capsule by [...] 11 07/21/2024 Active trimethoprim-po lymyxin B (Polytrim) 75724-3.1 UNIT/ML-% ophthalmic solution Instill 1 (one) drop [...] polyp 05/20/2019 Overview (12/24/2020): Colonoscopy 01/29/2012 at [facility]--->2021 Last Assessment & Plan: Recvd colonoscopy and [...] Department Care Team Description 08/07/2025 9:15 AM CLAIMS SPECIALIST Clinical Support [facility] - Ophthalmology [address] [place] [phone] Tyrel Velez MD 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 (Primary Dx) 08/07/2025 8:45 AM CLAIMS SPECIALIST Clinical Support [facility] - Ophthalmology [address] [place] [phone] Tyrel Velez MD 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 (Primary Dx) 08/07/2025 8:40 AM CLAIMS SPECIALIST Office Visit [facility] - Ophthalmology [address] [place] [phone] Tyrel Velez MD 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 (Primary Dx) 08/07/2025 Travel from Last 3 Months Immunizations Immunization Administration Dates Next Due Cov[employer] primary monoval ent 12+ yr 0.3mL Purple [...] Comments Blood Pressure 128/70 08/26/2023 12:43 PM CLAIMS SPECIALIST Pulse 65 08/26/2023 12:43 PM CLAIMS SPECIALIST Temperature 35.9 C (96.7 F) 08/26/2023 12:34 PM CLAIMS SPECIALIST Respiratory Rate 14 08/26/2023 12:43 PM CLAIMS SPECIALIST Oxygen Saturation 98% 08/26/2023 12:34 PM CLAIMS SPECIALIST Inhaled Oxygen Concentration - - Weight 64.9 kg (143 lb) 08/26/2023 9:01 AM CLAIMS SPECIALIST Height 172.7 cm (5' 8) 08/26/2023 9:01 AM CLAIMS SPECIALIST Body Mass Index 21.74 08/26/2023 9:01 AM CLAIMS SPECIALIST Plan of Treatment Upcoming Encounters Date Type Department Care Team (Late st Contact Info) Description 10/17/2025 9:00 AM CLAIMS SPECIALIST Office Visit [facility] - Ophthalmology [address] [place] [phone] Louis Hansen MD [address] [place] [address] [place] [phone] 04/16/2026 9:00 AM CDT Office Visit [facility] - Ophthalmology [address] [place] [phone] Tyrel Velez MD [address] [place] [phone] Health Maintenance Due Date Last Done Comments [...] this topic Medical Devices Implanted Type Area Microsoft Exchange Administrator Device Identifier Shelf Expiration Date Model / Serial / Lot Drain Glcm Thk.9mm Blnt Tpr [facility] Fl - [id number] Implanted:Qty: 1 on 05/04/2018 by Tyrel Velez MD at [facility] Left: Eye [employer] 03/15/2020 [id number] / [id number] / [id number] Graft Tissue Ttplst Sclr .8x.5cm Lopro - [id number] Implanted:Qty: 1 on 05/04/2018 by Tyrel Velez MD at [facility] Left: Eye [employer] 01/17/2023 [id number] / [id number] / [id number] Impl Opth 250sq Mm Brvldt Magaly 1 Qdrnt - [id number] Implanted:Qty: 1 on 06/16/2023 by Tyrel Velez MD at [facility] Left: Eye [employer] 01/09/2024 [id number] / [id number] / Graft Tissue Ttpl Ioptch Sclr .8x.5cm - [id number] Implanted:Qty: 1 on 06/16/2023 by Tyrel Velez MD at [facility] Left: Eye [employer] 09/19/2027 [id number] / [id number] / Graft Tissue Ttpl Ioptch Sclr .8x.5cm - [id number] Implanted:Qty: 1 on 06/16/2023 by Tyrel Velez MD at [facility] Left: Eye [employer] 09/19/2027 [id number] / [id number] / J Luis Cornea - [id number] Implanted:Qty: 1 on 08/26/2023 by Louis Hansen MD at [facility] Left: Eye [employer] 09/05/2023 [id number] / [id number] / [id number] Description:Product Numb:[id number] EXP:09-05-2023 DIN:[id number] Insurance SELF PAY NO INSURANCE Member Subscriber Plan / Payer (Ef fective for All Dates) Name:Mark Randolph Member ID:Not on file Relation to Subscriber:Self Name:MARK RANDOLPH Subscriber ID:Not on file Payer ID:Not on file Group ID:Not on file Type:Self Pay Address: [place], [place] AETNA MEDICARE ADV AETNA Advance Directives * Full Code (Latest Code Status on File) Date Activated Date Inactivated Comments 05/04/2018 11:35 AM 05/04/2018 1:21 PM * Full Code Date Activated Date Inactivated Comments 05/04/2018 7:43 AM 05/04/2018 11:35 AM Care Teams Blow Moulding Machine Operator Relationship Specialty Start Date End Date Nuris Berger PA-C PCP - General 02/13/20
--- OUTSIDE RECORDS SUMMARY | 2025-09-12 19:19 | XMS_ITS | Data Portability ---
Author Organization JUSTIN TEJINDERK[facility] Address [address] [place] [address] Assessment No assessment recorded. Plan of Treatment Reminders Order Date Submit Date Provider Last Modified By Organization Details Last Modified Time Details Appointments None recorded. Lab PSA, serum or plasma 2016 017 [facility], [address] [place], [place] [address]Ombu Nikunj, [address], [place], [address], 7 11:13:39 vitamin D, 25-hydroxy , total, serum 2016 017 [facility], [address] [place] [address], [address], [place], [address], 7 11:13:41 lipid panel, serum 2016 017 [facility], [address] [place] [address], [address], [place], [address], 7 11:13:39 CMP, serum or plasma 2016 017 [facility], [address] [place] [address], [address], [place], [address], 7 11:13:38 CK (creatine kinase), total, serum 2016 017 [facility], [address] [place], [place] [address]Ombu Nikunj, [address], [place], [address], 7 11:13:41 HbA1c (hemoglobi n A1c), blood 2016 017 [facility], [address], [address], [place], [address], 7 11:13:40 Referral ophthalmol ogist referral - please contact patient to schedule kelechi hernandez, thank you 2016 017 [email or web address] Not available 11:35:22 Procedures None recorded. Surgeries None recorded. Imaging None recorded. Medication Orders nicotine 14 mg/24 hr daily transderma l patch 2016 017 [facility][id number], [address], [place], [id number], 7 10:19:15 losartan 100 mg tablet 2016 017 [facility] #04159, [address] [place] [address], [place], [id number], 7 10:22:24 pravastati n 80 mg tablet 2016 017 [facility] #[id number], [address], [place], [id number], 7 10:21:48 Zetia 10 mg tablet 2016 017 [facility] #[id number], [address], [place], [place], [id number], 7 10:21:48 Patient TargetsNo targets recorded. Patient InstructionsNo instructions recorded. Reason for Referral Cafeteria Or Lunchroom Checker Referral for Glaucoma please continue to treat glaucoma. thank you please contact patient to schedule appointment, thank you Referring Physician: Tereso Mathias, [facility] Medicine, Encounter Date: 02/24/2017 Results Created Date Observation Date Name Description Value Unit Range Abnormal Flag Note LastModifiedBy Organization Detail LastModifiedTime 12/04/19 17 12/04/2016 CMP, serum or plasm a glucose, serum 89 mg/dL 65-99 Not Available [facility]) [address] [place], [address], 12/04/2016 11:13:38 12/04/19 17 12/04/2016 CMP, serum or plasm a BUN 14 mg/dL 6-24 Not Available [facility] ([facility]) [address] [facility] [place], [address], 12/04/2016 11:13:38 12/04/19 17 12/04/2016 CMP, serum or plasm a creatinine, serum 0.97 mg/dL 0.76-1 .27 Not Available [facility] ([facility]) [address] [facility] [place], [address], 12/04/2016 11:13:38 12/04/19 17 12/04/2016 CMP, serum or plasm a eGFR if nonafricn AM 88 mL/mi n/1.7 3 >59 Not Available [facility] ([facility]) [address] [place], [address], 12/04/2016 11:13:38 12/04/19 17 12/04/2016 CMP, serum or plasm a eGFR if africn AM 101 mL/mi n/1.7 3 >59 Not Available [facility] ([facility]) [address] [place], [address], 12/04/2016 11:13:38 12/04/19 17 12/04/2016 CMP, serum or plasm a BUN/creatini ne ratio 14 9-20 Not Available [facility] ([facility]) [address] [place], [address], 12/04/2016 11:13:38 12/04/19 17 12/04/2016 CMP, serum or plasm a sodium, serum 144 mmol/ L 134-14 4 Not Available [facility] ([facility]) [address] [place], [address], 12/04/2016 11:13:38 12/04/19 17 12/04/2016 CMP, serum or plasm a potassium, serum 4.7 mmol/ L 3.5-5. 2 Not Available [facility] ([facility]) [address] [place], [address], 12/04/2016 11:13:38 12/04/19 17 12/04/2016 CMP, serum or plasm a chloride, serum 103 mmol/ L 96-106 Not Available [facility] ([facility]) [address] [place], [address], 12/04/2016 11:13:38 12/04/19 17 12/04/2016 CMP, serum or plasm a carbon dioxide, total 24 mmol/ L 18-29 Not Available [facility] ([facility]) [address] [place], [address], 12/04/2016 11:13:38 12/04/19 17 12/04/2016 CMP, serum or plasm a calcium, serum 9.2 mg/dL 8.7-10 .2 Not Available [facility] ([facility]) [address] [place], [address], 12/04/2016 11:13:38 12/04/19 17 12/04/2016 CMP, serum or plasm a protein, total, serum 6.7 g/dL 6.0-8. 5 Not Available [facility] ([facility]) [address] [place], [address], 12/04/2016 11:13:38 12/04/19 17 12/04/2016 CMP, serum or plasm a albumin, serum 3.6 g/dL 3.5-5. 5 Not Available [facility] ([facility]) [address] [place], [address], 12/04/2016 11:13:38 12/04/19 17 12/04/2016 CMP, serum or plasm a globulin, total 3.1 g/dL 1.5-4. 5 Not Available [facility] ([facility]) [address] [place], [address], 12/04/2016 11:13:38 12/04/19 17 12/04/2016 CMP, serum or plasm a A/G ratio 1.2 1.2-2. 2 PLE ASE NOTE REFER ENCE INTER MANUEL DAMON E Not Available [facility] ([facility]) [address] [facility] [place], [address], 12/04/2016 11:13:38 12/04/19 17 12/04/2016 CMP, serum or plasm a bilirubin, total 0.3 mg/dL 0.0-1. 2 Not Available [facility] ([facility]) [address] [facility] [place], [address], 12/04/2016 11:13:38 12/04/19 17 12/04/2016 CMP, serum or plasm a alkaline phosphatase, S 53 IU/L 39-117 Not Available [facility] ([facility]) [address] [facility], [place], [address], 12/04/2016 11:13:38 12/04/19 17 12/04/2016 CMP, serum or plasm a AST (SGOT) 6 IU/L 0-40 Not Available [facility] ([facility]) [address] [facility], [place], [address], 12/04/2016 11:13:38 12/04/19 17 12/04/2016 CMP, serum or plasm a ALT (SGPT) 7 IU/L 0-44 Not Available [facility] ([facility]) [address] [facility] [place], [address], 12/04/2016 11:13:38 12/04/19 17 12/04/2016 lipid panel , serum cholesterol, total 103 mg/dL 100-19 9 Not Available [facility] ([facility]) [address] [facility] [place], [address], 12/04/2016 11:13:39 12/04/19 12/04/2016 lipid panel , serum triglyceride s 92 mg/dL 0-149 Not Available [facility] ([facility]) [address] [place], [address], 12/04/2016 11:13:39 12/04/19 17 12/04/2016 lipid panel , serum HDL cholesterol 25 mg/dL >39 below low normal Not Available [facility] ([facility]) [address] [place], [address], 12/04/2016 11:13:39 12/04/19 17 12/04/2016 lipid panel , serum VLDL cholesterol anselmo 18 mg/dL 5-40 Not Available [facility] ([facility]) [address] [place], [address], 12/04/2016 11:13:39 12/04/19 17 12/04/2016 lipid panel , serum LDL cholesterol calc 60 mg/dL 0-99 Not Available [facility] ([facility]) [address] [place], [address], 12/04/2016 11:13:39 12/04/1912/04/2016 lipid panel , serum comment: VEGETABLE FARM MANAGER Not Available [facility] ([facility]) [address] [place], [address], 12/04/2016 11:13:39 12/04/1912/04/2016 lipid panel , serum LDL/HDL ratio 2.4 ratio _unit s 0.0-3. 6 LDL/H DL RATIO MEN WOMEN 1/2 AVG.R ISK 1.0 1.5 AVG.R ISK 3.6 3.2 2X AVG.R ISK 6.2 5.0 3X AVG.R ISK 8.0 6.1 Not Available [facility] ([facility]) [address] [place], [address], 12/04/2016 11:13:39 12/04/19 17 12/04/2016 PSA, serum or plasm a prostate specific Ag, serum 1.6 NG/mL 0.0-4. 0 OTTO ECLIA METHO DOLOG Y. ACCOR DING TO THE AMERI CAN UROLO GICAL ASSOC IATIO N, SERUM PSA SHOUL D DECRE ASE AND REMAI N AT UNDET ECTAB LE LEVEL S AFTER RADIC AL PROST ATECT OBB. THE AUA DEFIN ES BIOCH EMICA L [...] CANNO T BE INTER PRETE D ABSOL BIG [place] EVIDE NCE OF THE PRESE NCE OR ABSEN CE OF LA CAMPO SE. Not Available [facility] ([facility]) [address] [facility], [place], [address], 12/04/2016 11:13:39 12/04/19 17 12/04/2016 HbA1c (hemo globi n A1c), blood hemoglobin A1C 6.3 % 4.8-5. 6 above high normal PRE-D IABET ES: 5.7 - 6.4 DIABE MARIA DEL CARMEN: >6.4 GLYCE JUVENTINO CONTR OL FOR ADULT S WITH DIABE MARIA DEL CARMEN: <7.0 Not Available [facility] ([facility]) [address] [facility], [place], [address], 12/04/2016 11:13:40 12/04/1912/04/2016 vitam in D, 25-hy [...] [facility] DC: [facility] PRESS . 2. HEIDE Salazar MF, ALYSSA RAHMAN NC, DAVE OFF-F ERRAR I CHENEY, ET AL. EVALU ATION , TREAT MENT, AND PREVE NTION OF VITAM IN D DEFIC IENCY : AN ENDOC RINE SOCIE TY CLINI ANSELMO PRACT ICE GUIDE LINE. JCEM. 2010; 96(7) :1911 -30. Not Available [facility] ([facility]) [address] [facility], [place], [address], 12/04/2016 11:13:41 12/04/19 17 12/04/2016 CK (crea chuy kinas e), total , serum creatine kinase,total ,serum 62 U/L 24-204 Not Available [facility] ([facility]) [address] [facility], [place], [address], 12/04/2016 11:13:41 09/26/19 16 09/26/2015 imagi ng/di agnos tic resul t No observ ation record ed. [email or web address] Not Available 09/2015 16:44:32 Result Notes None recorded. Problems Name Problem SNOMED Code Status Onset Date Resolution Date Notes Provider Name and Address Organization Details Recorded Time Essential hypertension 36709869 Active Tereso Mathias PA-C Attn: Areli g,[address] [facility], [place], [address], [facility] 6 14:58:12 Hyperlipidemia 47082332 Active Tereso Mathias PA-C Attn: Accountin g,[address] [facility], [place], [address], [facility] 6 14:58:12 Tobacco user 476839369 Active Teerso Mathias PA-C Attn: Areli g,[address] 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 Tereso Mathias PA-C Attn: Areli g,[address], [place], [address], [place] [facility] 6 14:58:12 Glaucoma 46944340 Active Tereso Mathias PA-C Attn: Accountmaryana g,[address], [place], [address], [place] [facility] 6 14:58:12 Screening for malignant neoplasm of prostate Active 2016 Tereso Mathias PA-C Attn: Areli g,[address], [place], [address], [place] [facility] 7 10:01:18 Family history of diabetes mellitus 817686901 Active 2016 Tereso Mathias PA-C Attn: Areli magallon,[address], [place], [address], [place] [facility] 7 10:02:18 Hearing loss 13961992 Active 2016 Tereso Mathias PA-C Attn: Areli magallon,[address], [place], [address], [place] [facility] 7 14:00:42 Problem Notes None recorded. Procedures Surgical History Date Name Laterality Status Provider Name and Address Organization Details Recorded Time 6 Control Implant Replacement completed Tereso Mathias PA-C Attn: Accounting,[address], [place], [address], [place] [facility] 11/19/2015 17:16:51 5 Eye Surgery completed Araceli Miller [place] [facility] 07/15/2015 16:13:26 Imaging Results None [...] 6 98.1 [degF] 27.1 kg/m2 97 % 27534.0 12196 g 83 /min 170.18 cm 126/80 mm[Hg] Araceli Miller MA [facility] 6 16:32:52 Date Recorded Body height Body weight Body mass index (BMI) Oxygen saturation Heart rate Body temperature Systolic And Diastolic Provider Name and Address Organization Details Last Updated DateTime 7 170.18 cm 27587.9 1 g 26.5 kg/m2 99 % 65 /min 98.3 [degF] 110/72 mm[Hg] Araceli Miller MA [facility] 7 09:34:57 Date Recorded Body height Body weight Body mass index (BMI) Oxygen saturation Heart rate Body temperature Systolic And Diastolic Provider Name and Address Organization Details Last Updated DateTime 7 170.18 cm 40717.8 g 24.7 kg/m2 98 % 65 /min 97.8 [degF] 120/66 mm[Hg] Araceli Miller MA [facility] 7 09:45:04 Date Recorded Body height Body mass index (BMI) Body temperature Heart rate Body weight Oxygen saturation Systolic And Diastolic Provider Name and Address Organization Details Last Updated DateTime 6 170.18 cm 26.5 kg/m2 98.5 [degF] 73 /min 73685.9 21373 g 98.5 % 122/62 mm[Hg] Araceli Miller MA [facility] 6 14:25:34 Date Recorded Body weight Oxygen saturation Body height Body mass index (BMI) Heart rate Body temperature Systolic And Diastolic Provider Name and Address Organization Details Last Updated DateTime 5 62092.2 70689 g 98 % 170.18 cm 27.8 kg/m2 73 /min 98.1 [degF] 120/70 mm[Hg] Araceli Miller MA [facility] 5 16:18:29 Social History Question Answer Notes LastModified by Organizat ion Details LastModified Time Tobacco Smoking Status Current Every Day Smoker 8 cigarettes per day Tereso Mathias PA-C Attn: Accounting,[address] [place], [address], [facility] 11/19/2015 16:46:10 How Many Years Have You Smoked Tobacco? 16 [email or web address] Information not available 11/19/2015 Sex: Unknown Functional Status None recorded. Mental Status None recorded. Family History Relationship Description Onset Age of this Age Resolved Age Notes LastModified by Organization Details LastModified Time Father Myocardial infarction [email or web address] Not available 07/15 16:14:56 Paternal Grandmother Myocardial infarction [email or web address] Not available 07/15 16:14:56 Medical History Condition Response Coronary Artery Disease N Other N Atrial Fibrillation N High Blood Pressure N Thyroid Problems N Kidney or Bladder Problems N Depression N COPD N Blood Clots N GI Problems N Skin Problems N Anemia N Heart Attack ([place]) N Diabetes N Anxiety Disorder N Muscle, Joint, or Bone Problems N Seizures/Epilepsy N Acid Reflux (GERD) N Cancer N Stroke N Allergies Y Asthma N High Cholesterol N Hepatitis N Liver Disease N Headaches N Osteoporosis N Heart Failure N Past Encounters Encounter ID Performer Location Encounter Start Date Encounter Closed Date Diagnosis/Indication Diagnosis SNOMED-CT Code Diagnosis ICD10 Code Diagnosis IMO Codes Diagnosis Note [id number] MD Dominique Horne (Adult Med) [address] [place] [id number] 07/15/2015 16:01:26 07/18/2015 11:52:23 Essential hypertension 81816482 I10 Hyperlipidemia 78170817 E78.5 Tobacco user 517434717 Z 72.0 Vitamin D deficiency 347 99711 E55.9 [id number] GONZALO Vega (Adult Med) [address] [place] [phone] 11/19/2015 15:59:03 11/19/2015 17:39:42 Essential hypertension 67334584 I10 Hyperlipidemia 13304641 E78.5 Tobacco user 916061204 Z 72.0 Vitamin D deficiency 347 71027 E55.9 Blind right eye 65935946 0 H54.41 removed October 07, 2015 Glaucoma 28929609 H40.9 left eye : on 4 types of eye drops. pressure is 13 [id number] MD Dominique Horne (Adult Med) [address] [place] [phone] 04/14/2016 13:43:20 04/14/2016 18:05:17 Blind right eye 378697919 H54.41 removed October 07, 2015 Essential hypertension 90176608 I10 Glaucoma 80113055 H40.9 left eye : on 4 types of eye drops. pressure is 13 Hyperlipidemia 08733906 E78.5 Tobacco user 153126209 Z 72.0 Vitamin D deficiency 347 94528 E55.9 [id number] MD Dominique Horne (Adult Med) [address] [place] [phone] 11/18/2016 09:02:57 11/18/2016 17:59:18 Essential hypertension 00671840 I10 Hyperlipidemia 39022790 E78.5 Vitamin D deficiency 347 58338 E55.9 Blind right eye 44217676 0 H54.41 removed October 07, 2015 Glaucoma 71832633 H40.9 left eye : on 4 types of eye drops. pressure is 13 Tobacco user 764415347 Z 72.0 Screening for malignant neoplasm of prostate 676894472 Z12.5 Family his tory of diabetes mellitus 746465846 Z83.3 [id number] GONZALO Vega (Adult Med) [address] [place] [phone] 02/24/2017 09:11:33 02/24/2017 17:54:57 Tobacco user 143848698 Z72.0 cannot tolerate Chantix Vitamin D deficiency 347 96203 E55.9 Hyperlipidemia 65183099 E78.5 Essential hypertension 05895642 I10 Glaucoma 32927014 H40.9 left eye : on 4 types of eye drops. pressure is 13 Health Concerns Section Related Observation LastModified by Organization Detai ls LastModified Time None Recorded Concern Status LastModified by Organization Details LastModified Time None Recorded Advance Directives Directive None Recorded Payers Insurance Date Sequence Insurance Name Policy Number Policy Guzman Covered Member ID Guzman Member ID Guarantor Name 02/21/2017 1 [facility] (MEDICARE REPLACEMENT/A DVANTAGE - HMO) [id number] Mark Hines [id number] Mark Hines Notes Date Note Type Note Provider Name and Address Organization Details Recorded Time 11/18/2016 text/html ROS as noted in the HPI no changes Tereso Mathias PA-C Attn: Accounting,[address] [facility], [place], [address], [place] [facility] 11/18/2016 14:01:21 02/24/2017 text/html ROS as noted in the HPI no changes , needs another referral to eye doctor at [facility] , for glaucoma treatment Tereso Mathias PA-C Attn: Accounting,[address], [place], [address], [facility] 02/24/2017 12:42:21
[2025-09-12 19:46] LABS: Hematocrit 38.0 % (42.0-52.0); Hemoglobin 12.3 g/dL (14.0-18.0); Immature Granulocyte Percent A 0.3 % (0-0.5); Lymphocytes Absolute Auto 1.19 K/mm3 (0.9-3.2); Mean Corpuscular HGB Conc 32.4 g/dl (32-36); Mean Corpuscular Hemoglobin 28.5 pg (26-34); Mean Corpuscular Volume 88.0 fl (80-100); Nucleated Red Blood Cells Absolute Auto 0.000 K/mm3 (0.0-0.012); Nucleated Red Blood Cells Perc 0.0 % (0.0-0.2); Platelet Count Result 275 k/mm3 (150-375); Red Blood Count 4.32 M/mm3 (4.6-6.20); White Blood Count 12.0 K/mm3 (4.5-10.0)
[2025-09-12 19:58] LABS: Alanine Aminotransferase 13 U/L (6-50); Albumin Level 5.1 g/dL (3.5-5.1); Alkaline Phosphatase 75 U/L (38-126); Anion Gap 13 mmol/L (4-12); Aspartate Amino Transferase 23 U/L (17-59); Bilirubin,Total 0.5 mg/dL (0.2-1.3); Blood Urea Nitrogen 10 mg/dL (9-20); Calcium 10.5 mg/dL (8.4-10.2); Carbon Dioxide 25 mmol/L (22-30); Chloride 98 mmol/L (98-107); Estimated CRCL calculation 66 ml/min; Estimated Glomerular Filt Rate > 60; Glucose 108 mg/dL (65-110); Magnesium 2.2 mg/dL (1.6-2.3); Potassium 4.6 mmol/L (3.4-5.0); Sodium 136 mmol/L (137-145); Total Protein 9.4 g/dL (6.3-8.2)
[2025-09-12 20:00] LABS: INR 1.0; Prothrombin Time 13.1 Seconds (11.1-14.7)
[2025-09-12 20:01] VITALS: BP 138/70; PULSE 81; RESP 22; O2SAT 98
[2025-09-12 20:01] LABS: Partial Thromboplastin Time 35.8 Seconds (22.3-36.8)
[2025-09-12 20:16] VITALS: BP 146/70; PULSE 85; RESP 22; O2SAT 99
[2025-09-12] MEDS: SODIUM CHLORIDE 0.9% IV 1,000 ML 999 ML IV CONT (20:58)
[2025-09-12] MEDS: HALOPERIDOL LACTATE 5 MG/ML VIAL 2.5 MG IV PUSH (22:30)
[2025-09-12 23:46] VITALS: BP 137/58; PULSE 94; RESP 17; O2SAT 98
[2025-09-13] VITALS: BP 118/59; PULSE 87; RESP 20; O2SAT 100
[2025-09-13 00:45] VITALS: BP 127/59; PULSE 89; RESP 18; O2SAT 97
== END 2025-09-13 00:45 | disposition home or self-care (01) ==
PROVIDERS: Physician Assistant; Emergency Provider Emergency Medicine; PCP Physician Assistant
DX: R53.1 Weakness (principal); R06.6 Hiccough; H54.8 Legal blindness, as defined in USA; J44.9 Chronic obstructive pulmonary disease, unspecified; I10 Essential (primary) hypertension; E78.5 Hyperlipidemia, unspecified; D64.9 Anemia, unspecified; Z87.891 Personal history of nicotine dependence
CPT/HCPCS: 36415; 70450; 80053; 83605; 83735; 85025; 85610; 85730; 93005; 96361; 96374; 99284; A9270; J1630; J7030

== ENCOUNTER 2025-09-18 10:16 | Observation (INO) | payer MEDICARE, SELFPAY ==
[2025-09-18] VITALS (8 sets, daily range): BP systolic 128–161; BP diastolic 48–68; PULSE 74–86; RESP 16–20; TEMP 36.4–36.8; O2SAT 98–100; BMI 23.4
--- NOTE | ~2025-09-18 | CT_ITS ---
EXAMINATION: CT chest abdomen pelvis w con DATE: 09/18/2025 12:34 INDICATION: Shortness of breath. Hemoptysis. TECHNIQUE: Computed tomography (CT) of the chest, abdomen, and pelvis was performed with 100 mL Omnipaque 350 intravenous contrast. Automated exposure control and iterative reconstruction technique were employed. The dose-length product was 471.06 mGy-cm. COMPARISON: Head CT 08/29/2025 FINDINGS: CHEST CT: There are groundglass opacities in right lower lobe. There is mild atelectasis bilaterally. Calcified left lung nodules and calcified left hilar and mediastinal lymph nodes are consistent with old granulomatous disease. There is left-sided pleural thickening with peripheral calcifications. The heart size is normal. There is a trace pericardial effusion. There is wall thickening of the distal esophagus. There is a small sliding hiatal hernia. There is severe cervical spondylosis. There are bridging endplate osteophytes at multiple levels in the thoracic spine, consistent with diffuse idiopathic skeletal hyperostosis (DISH). There is mild chronic anterior wedging of multiple thoracic vertebral bodies. ABDOMEN/PELVIS CT: There are cysts in the liver measuring up to 11 mm. Calcifications in the spleen are consistent with old granulomatous disease. The gallbladder, pancreas, and adrenal glands are normal. There are cysts in the kidneys measuring up to 2.9 cm on the right. The bladder is distended. There is diverticulosis of the colon without evidence of diverticulitis. There are no dilated loops of bowel. The appendix is not visualized. There are no pathologically enlarged lymph nodes. There is no free intraperitoneal fluid. There is osteonecrosis of the femoral heads. There is severe lumbar spondylosis. IMPRESSION: 1. Groundglass opacities in right lower lobe, consistent with mild pneumonia. 2. Small sliding hiatal hernia. 3. Wall thickening of the distal esophagus, likely esophagitis. Reviewed, dictated and finalized at location E. TAL ENGINEER
--- NOTE | ~2025-09-18 | XR_ITS ---
Examination: XR chest 2V Clinical History: SOB; THROWING UP BLOOD SINCE THIS MORNING Comparison: CTA chest 08/29/2025 Technique: PA and Lateral Findings: Cardiomediastinal silhouette normal size and configuration. Small patchy opacity right base. Discoid atelectasis left base. Mediastinal calcification. No acute bony abnormality. IMPRESSION: 1. Tiny focus airspace opacity right base. Reviewed, dictated and finalized at location R. CLE REPAIRER
--- NOTE | 2025-09-18 10:30 | ECG_ITS ---
Test Date: 2025-09-18 11:02:32 Measurements Intervals [place] Rate: 78 P: 60 NC: 133 QRS: 25 QRSD: 89 T: 37 QT: 362 QTc: 414 Interpretive Statements SINUS RHYTHM MINIMAL Q WAVES- ANTEROLAT/HIGH LAT LEADS BASELINE ARTIFACT- I, II, III, AVR, AVL, AVF, V1-V2 BORDERLINE ECG Compared to ECG 09/12/2025 19:18:08 No significant changes Electronically Signed On 09-18-2025 19:47:03 DYE COLORIST FORMULATOR by Mika Lopez D.O.
--- OUTSIDE RECORDS SUMMARY | 2025-09-18 10:44 | XMS_ITS | Encounter Summary ---
Author Organization [facility] Healthcare Address [address] [place] [address] Care Team Providers Care Steel Heater Name Role Phone Nuris Berger Primary Care Provider [phone] Jonatan Stokes MD Unavailable [phone] Irma Bajwa MD Unavailable [phone] [address] MA Unavailable Unavailable Roxana Fernandez MA Unavailable [phone] Encounter Details Date Type Department Care Team (Late st Contact Info) Description 05/29/2025 Orders Only [facility] [place] [address] [place] [address] Scanning, Provider Social History Tobacco Use Types Packs/Day Years Used Date Smoking Tobacco: Former Cigarettes 0.8 40 0 09/1981 - 09/2021 Smokeless Tobacco: Never Alcohol Use Standard Drinks/Week Comments Yes 2 (1 standard drink = 0.6 oz pur e alcohol) social [facility] Utilities Answer Date Recorded In the past 12 months has [employer] electric, gas, oil, or water company threatened [...] week 12/03/2023 How often do you attend [facility] or [facility] services? 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 Gender Identity Not on file Sexual Orientation [...] on filedocumented in this encounter Care Teams Steel Heater Relationship Specialty Start Date End Date Nuris Berger PA [address] [facility] [address] [place] [address] PCP - General Internal Medicine 12/28/18 Jonatan Stokes MD [address] [place] [address] Consulting Physician Otolaryngology 03/27/20 Irma Bajwa MD [address] [facility] [place] [address] Consulting Physician Neurology 05/07/22 Brooke Plaza MA [address] [place] [address] ACO Care Wood Form Builder 06/18/25 06/19/25 Roxana Fernandez MA [address] [place] [address] ACO Care Wood Form Builder 07/31/25 07/31/25 documented as of this encounter
--- OUTSIDE RECORDS SUMMARY | 2025-09-18 10:45 | XMS_ITS | Encounter Summary ---
Author Organization [facility] Healthcare Address [address] [place] [address] Care Team Providers Care Deputy Felony Clerk Name Role Phone Nuris Berger Primary Care Provider [phone] Jonatan Stokes MD Unavailable [phone] Irma Bajwa MD Unavailable [phone] Ayla Dugan LPN Unavailable [phone] Bro[address] MA Unavailable Unavailable Roxana Fernandez MA Unavailable Encounter Details Date Type Department Care Team (Late st Contact Info) Description 12/21/2024 Orders Only [facility] [place] Health Information Management [address] [place] [address] Scanning, Provider Social History Tobacco Use Types Packs/Day Years Used Date Smoking Tobacco: Former Cigarettes 0.8 40 0 09/1981 - 09/2021 Smokeless Tobacco: Never Alcohol Use Standard Drinks/Week Comments Yes 0 (1 standard drink = 0.6 oz pur e alcohol) social [facility] Utilities Answer Date Recorded In the past 12 months has [employer] electric, gas, oil, or water company threatened [...] often do you attend chur ch or anglican services? 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 [address] Consulting Physician Neurology 05/07/22 Ayla Dugan LPN [address] [place] [address] Career Services Manager 03/30/25 03/30/25 Brooke Plaza MA [address] [place] [address] ACO Care Stem Dryer Maintainer 06/18/25 06/19/25 Roxana Fernandez MA [address] [place] [address] ACO Care Stem Dryer Maintainer 07/31/25 07/31/25 documented as of this encounter
--- OUTSIDE RECORDS SUMMARY | 2025-09-18 10:45 | XMS_ITS | Clinical Summary ---
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 Pulse 82 09/04/2021 8:52 AM SHEET ROCK HANGER Temperature 36.3 C (97.4 F) 09/04/2021 8:52 AM SHEET ROCK HANGER Respiratory Rate 16 09/04/2021 8:52 AM SHEET ROCK HANGER Oxygen Saturation 97% 09/04/2021 8:52 AM SHEET ROCK HANGER Inhaled Oxygen Concentration - - Weight 64.4 kg (142 lb) 09/04/2021 8:52 AM SHEET ROCK HANGER Height 172.7 cm (5' 8) 09/04/2021 8:52 AM SHEET ROCK HANGER Body Mass Index 21.59 09/04/2021 8:52 AM SHEET ROCK HANGER Plan of Treatment Health Maintenance Due Date [...] this topic Insurance [employer] MEDICARE Care Teams Welding Machine Operator Submerged Arc Relationship Specialty Start Date End Date Nuris Berger PA [address] [place] [address] PCP - General PHYSICIAN CORPORATE STRATEGY INTERN 06/09/21
--- OUTSIDE RECORDS SUMMARY | 2025-09-18 10:45 | XMS_ITS | Encounter Summary ---
Author Organization [facility] Healthcare Address [address] [place] [address] Care Team Providers Care Psychological Tests Sales Agent Name Role Phone Nuris Berger Primary Care Provider [phone] Jonatan Stokes MD Unavailable [phone] Irma Bajwa MD Unavailable [phone] Ayla Dugan LPN Unavailable [phone] MA Unavailable Unavailable Roxana Fernandez MA Unavailable [phone] Encounter Details Date Type Department Care Team (Late st Contact Info) Description 12/26/2024 Orders Only [facility] Health Information Management [address] [place] [id number] Scanning, Provider Social History Tobacco Use Types Packs/Day Years Used Date Smoking Tobacco: Former Cigarettes 0.8 40 0 09/1981 - 09/2021 Smokeless Tobacco: Never Alcohol Use Standard Drinks/Week Comments Yes 0 (1 standard drink = 0.6 oz pur e alcohol) social [facility] Utilities Answer Date Recorded In the past 12 months has [employer] electric, gas, oil, or water company threatened [...] often do you attend chur ch or synagogue services? Patient declined 12/03/2023 Do you belong to any clubs o r organizations such as baptism groups, unions, fraternal or athletic groups, or [...] on file Legal Sex Male 12:22 AM MANAGEMENT DEPARTMENT CHAIR Gender Identity Not on file Sexual Orientation [...] on filedocumented in this encounter Care Teams Psychological Tests Sales Agent Relationship Specialty Start Date End Date Nuris Berger PA [address] [facility] [address] [place] [address] PCP - General Internal Medicine 12/28/18 Jonatan Stokes MD [address] [place] [address] Consulting Physician Otolaryngology 03/27/20 Irma Bajwa MD [address] [place] [address] Consulting Physician Neurology 05/07/22 Ayla Dugan LPN [address] [place] [address] [address] [place] [address] Catalytic Case Operator 03/30/25 03/30/25 Brooke Plaza MA [address] [place] [address] ACO Care Operator Specialist Communications 06/18/25 06/19/25 Roxana Fernandez MA [address] [place] [address] ACO Care Operator Specialist Communications 07/31/25 07/31/25 documented as of this encounter
--- OUTSIDE RECORDS SUMMARY | 2025-09-18 10:45 | XMS_ITS | Clinical Summary ---
Author Organization [facility] [address] [facility] Address [address] [place] [address] Care Team Providers Care Coke Still Cleaner Name Role Phone Nuris Berger Primary Care Provider [phone] Jonatan Stokes MD Unavailable Irma Bajwa MD Unavailable [phone] Allergies Active Allergy Reactions Criticality Noted Date Comments Chlorpromazine Other (See comments) Low 12/02/2023 Neurology consult during his 12/02/2023 hospitalization states the facial twitching is NOT consistent with Tardive Dyskinesia so ok to use Thorazine prn for the chronic intractable hiccups Medications cyanocobalamin (Vitamin B-12) 100 mcg tablet Take [...] sucralfate (CARAFATE) suspension 1 gram/10 mL 09/01/20 25 Active budesonide-form oteroL (SYMBICORT) 80-4.5 mcg/actuation inhalerIndicati ons:Mild persistent asthma without complication,Ch ronic obstructive pulmonary disease, unspecified COPD type (HCC) INHALE 2 PUFFS BY MOUTH TWICE DAILY. RINSE MOUTH WITH WATER AFTER USE. DO NOT SWALLOW 30.6 g 2 09/17/20 25 Active albuterol HFA (PROVENTIL HFA,VENTOLIN HFA,PROAIR HFA) 90 mcg/actuation inhalerIndicati ons:Chronic obstructive pulmonary disease, unspecified COPD type (HCC),Uncomplic ated asthma, unspecified asthma severity, unspecified whether persistent INHALE 2 PUFFS BY MOUTH EVERY 6 HOURS NEEDED FOR WHEEZING OR SHORTNESS OF BREATH 18 g 1 09/18/20 25 Active albuterol HFA (PROVENTIL HFA,VENTOLIN HFA,PROAIR HFA) 90 mcg/actuation inhalerIndicati ons:Chronic obstructive pulmonary disease, unspecified COPD type (HCC),Uncomplic ated asthma, unspecified asthma severity, unspecified whether persistent Inhale 2 puffs every 6 (six) hours as needed for wheezing or shortness of breath 1 each 6 11/20/19 23 025 Discontinued budesonide-form oteroL (SYMBICORT) 80-4.5 mcg/actuation inhalerIndicati ons:Mild persistent asthma without complication,Ch ronic obstructive pulmonary disease, unspecified COPD type (HCC) INHALE 2 PUFFS BY MOUTH TWICE DAILY. RINSE MOUTH WITH WATER AFTER USE. DO NOT SWALLOW 30.6 g 1 09/18/20 24 025 Discontinued chlorproMAZINE (THORAZINE) 25 mg tablet Take 1 tablet (25 mg total) by mouth 4 (four) times a day 120 tablet 1 05/01/20 25 025 Discontinued baclofen (LIORESAL) 10 mg tabletIndicatio ns:Low back pain, unspecified back pain laterality, unspecified chronicity, unspecified whether sciatica present TAKE 1 TABLET(10 MG) BY MOUTH TWICE DAILY 60 tablet 1 06/27/20 25 025 Discontinued Active Problems Patient Care [...] 11/24/2023 Assessment & Plan (11/19/2024 11:45 PM VINER OPERATOR): Supplement Assessment & Plan (05/20/2024 7:36 PM CDT): Supplement Fatigue 12/12/2022 Assessment & Plan (05/20/2024 7:37 PM CDT): Probably multifactorial. Check labs and followup to re-evaluate Assessment & Plan (11/24/2023 10:35 AM VINER OPERATOR): Probably multifactorial. Check labs and followup [...] 01/16/2022 Assessment & Plan (11/19/2024 11:44 PM VINER OPERATOR): Chronic hiccups for 5+ years Has [...] to the ER. ER recommended referral to [facility] but patient states he can't go to [...] weeks Assessment & Plan (11/24/2023 10:34 AM VINER OPERATOR): Patient has persistent chronic hiccups that [...] monitor Assessment & Plan (08/15/2023 5:01 PM VINER OPERATOR): Chronic hiccups for years. Has tried multiple interventions along with multiple workups from specialists including Neurology pulmonology and GI. Continue current regimen. Stressed importance of limiting water intake when he has the hiccups spells as this has been leading to hyponatremia requiring hospitalization. Assessment & Plan (08/11/2023 8:45 AM VINER OPERATOR): Patient with chronic hiccups. Have had [...] levels. Assessment & Plan (08/15/2022 6:45 PM VINER OPERATOR): Patient has consulted with most multiple [...] hiccups. Assessment & Plan (08/15/2023 5:02 PM VINER OPERATOR): Chronic hiccups for years. Has tried multiple interventions along with multiple workups from specialists including Neurology pulmonology and GI. Continue current regimen. Stressed importance of limiting water intake when he has the hiccups spells as this has been leading to hyponatremia requiring hospitalization. Assessment & Plan (08/11/2023 8:46 AM VINER OPERATOR): Hyponatremia secondary to water intake with [...] Mitchell EGD: severe ulcerative esophagitis. PPI bid terminal gauger, carafate and avoid NSAIDs/ASA---->rep EGD in 12/2025 Assessment & Plan (11/19/2024 11:44 PM VINER OPERATOR): Continue PPI p.r.n. Assessment & Plan (05/20/2024 7:35 PM CDT): Continue pantoprazole p.r.n. Assessment & Plan (11/24/2023 10:33 AM VINER OPERATOR): Continue pantoprazole p.r.n. Assessment & Plan (04/08/2023 8:48 PM CDT): Continue PPI p.r.n. Assessment & Plan (12/12/2022 9:43 PM CDT): Insert PPI Assessment & Plan (08/15/2022 6:45 PM VINER OPERATOR): Continue PPI prn Assessment & Plan (02/09/2021 8:17 PM CDT): Continue PPI Assessment & Plan (07/29/2020 7:33 AM VINER OPERATOR): Continue PPI Assessment & Plan (03/27/2020 8:01 AM CDT): Dr. Stokes changed him from omeprazole to Pantoprazole for the hiccups. Pt hasn't noted any difference in GERD sxs (still well controlled) or hiccups. Assessment & Plan (09/26/2019 7:38 AM VINER OPERATOR): Continue PPI Assessment & Plan (07/14/2019 [...] LDCT Assessment & Plan (11/19/2024 11:44 PM VINER OPERATOR): Patient with allergies and COPD. Continue Singulair albuterol and Symbicort. Follows with Dr. Valdes. Assessment & Plan (05/20/2024 7:35 PM CDT): Continue per Dr. Valdes. Continue with his Symbicort and albuterol inhalers. Low-dose CT will be scheduled for June 16, 2024. Assessment & Plan (11/24/2023 10:33 AM VINER OPERATOR): COPD. Continue per Dr. Hammond his edger machine setter Continue Symbicort Singulair and albuterol p.r.n. Assessment & Plan (04/08/2023 8:48 PM CDT): Encouraged smoking cessation. Continue per Dr. Hammond pulmonology. He is on albuterol Symbicort and Singulair Assessment & Plan (12/12/2022 9:43 PM CDT): Stop smoking. Continue per Pulmonary. Continue Symbicort Singulair and albuterol. Continue monitoring low-dose CTs as instructed Assessment & Plan (08/15/2022 6:44 PM VINER OPERATOR): Stop smoking. Continue current plan per Pulmonary Assessment & Plan (08/01/2021 9:34 PM VINER OPERATOR): Continue per Pulmonary Dr. Valdes Assessment & Plan (02/09/2021 8:15 PM CDT): Stop smoking. Continue per Dr. Valdes Assessment & Plan (07/29/2020 7:32 AM VINER OPERATOR): Continue per Pulm Assessment & Plan (03/27/2020 8:00 AM CDT): Stop smoking. He declines starting inhalers or referral to Pulmonary Assessment & Plan (09/26/2019 10:27 PM VINER OPERATOR): This is a significant, separately identifiable [...] order Assessment & Plan (07/29/2020 7:33 AM VINER OPERATOR): Needs to repeat ---Dr. Valdes has already ordered Assessment & Plan (03/27/2020 8:00 AM CDT): 06/2019 LDCT Several 2-3mm nodules, probable benign LungRADs 2 --- repeat 06/2020 Assessment & Plan (09/26/2019 10:26 PM VINER OPERATOR): 06/2019 LDCT Several 2-3mm nodules, probable benign LungRADs 2 --- repeat 06/2020 Hyperplastic rectal polyp 05/20/2019 Overview (05/20/2019): Colonoscopy 01/29/2012 at [facility]--->2021 Assessment & Plan (05/28/2019 7:33 PM CDT): Recvd colonoscopy and due to repeat in 2021 Hiatal hernia 05/20/2019 Mixed hyperlipidemia 05/20/2019 Assessment & Plan (11/19/2024 11:45 PM VINER OPERATOR): Encouraged patient to follow low fat/low [...] 80 Assessment & Plan (11/24/2023 10:34 AM VINER OPERATOR): Encouraged patient to follow low fat/low chol diet like the Mediterranean diet. Increase good fats in the diet. Increase exercise. Monitor labs as needed. Continue pravastatin 80 Assessment & Plan (08/15/2023 5:03 PM VINER OPERATOR): Encouraged patient to follow low fat/low [...] Zetia Assessment & Plan (08/01/2021 9:33 PM VINER OPERATOR): Encouraged patient to follow fat/low chol [...] statin Assessment & Plan (07/29/2020 7:34 AM VINER OPERATOR): Encouraged patient to follow fat/low chol diet like the Mediterranean diet. Increase good fats in the diet. Increase exercise. Monitor labs as needed. Assessment & Plan (03/27/2020 8:02 AM CDT): Encouraged patient to continue low fat/low chol diet. Continue exercise. Increase good fats in the diet. Monitor labs as needed. Stable with zetia and pravastatin Assessment & Plan (09/26/2019 7:39 AM VINER OPERATOR): Encouraged patient to continue low fat/low [...] change Assessment & Plan (08/15/2023 5:03 PM VINER OPERATOR): Patient is legally blind. Continue with Ophthalmology Assessment & Plan (04/08/2023 8:47 PM CDT): No change Assessment & Plan (03/27/2020 8:02 AM CDT): No change Assessment & Plan (09/26/2019 7:39 AM VINER OPERATOR): No change Assessment & Plan (05/28/2019 7:35 PM CDT): No change Cigarette smoker 05/20/2019 Assessment & Plan (08/11/2023 8:45 AM VINER OPERATOR): Encouraged smoking cessation. Discussed 3 minutes. Reviewed options for assistance with cessation. Reviewed terminal gauger sequela associated with smoking. Pt declines assistance at this time but may contact the office at anytime for further help as they desire. Assessment & Plan (04/08/2023 8:47 PM CDT): Encouraged smoking cessation. Discussed 3 minutes. Reviewed options for assistance with cessation. Reviewed terminal gauger sequela associated with smoking. Pt [...] desire. Assessment & Plan (08/15/2022 6:44 PM VINER OPERATOR): Encouraged smoking cessation. Discussed 3 minutes. Reviewed options for assistance with cessation. Reviewed detention sequela associated with smoking. Pt declines assistance at this time but may contact the office at anytime for further help as they desire. Assessment & Plan (05/09/2022 8:19 PM CDT): Encouraged smoking cessation. Discussed 3 minutes. Reviewed options for assistance with cessation. Reviewed terminal gauger sequela associated with smoking. Pt declines assistance at this time but may contact the office at anytime for further help as they desire. Assessment & Plan (08/01/2021 9:33 PM VINER OPERATOR): Encouraged smoking cessation. Discussed 3 minutes. Reviewed options for assistance with cessation. Reviewed terminal gauger sequela associated with smoking. Pt declines assistance at this time but may contact the office at anytime for further help as they desire. Assessment & Plan (05/17/2021 11:41 PM CDT): Encouraged smoking cessation. Discussed 3 minutes. Reviewed options for assistance with cessation. Reviewed terminal gauger sequela associated with smoking. Pt [...] help Assessment & Plan (07/29/2020 7:34 AM VINER OPERATOR): Encouraged smoking cessation. Discussed 3 minutes. Reviewed options for assistance with cessation. Reviewed terminal gauger sequela associated with smoking. Pt declines assistance at this time but may contact the office at anytime for further help as they desire. Assessment & Plan (03/27/2020 8:02 AM CDT): Encouraged smoking cessation. Discussed 3 minutes. Reviewed options for assistance with cessation. Reviewed terminal gauger sequela associated with smoking. Pt declines assistance at this time but may contact the office at anytime for further help as they desire. Assessment & Plan (09/26/2019 7:39 AM VINER OPERATOR): Encouraged smoking cessation. Discussed 3 minutes. [...] 05/20/2019 Assessment & Plan (11/19/2024 11:45 PM VINER OPERATOR): Pre-diabetes/hyperglycemia is a precursor to Dm. [...] diabetes. Assessment & Plan (11/24/2023 10:34 AM VINER OPERATOR): Pre-diabetes/hyperglycemia is a precursor to Dm. Stressed importance of working on diet (decrease your simple sugars and one carbohydrate with each meal) and increase you exercise to achieve weight loss and this will help prevent you from progressing to diabetes. Assessment & Plan (08/15/2023 5:03 PM VINER OPERATOR): Pre-diabetes/hyperglycemia is a precursor to Dm. [...] diabetes. Assessment & Plan (08/01/2021 9:33 PM VINER OPERATOR): Pre-diabetes/hyperglycemia is a precursor to Dm. [...] diabetes. Assessment & Plan (07/29/2020 7:34 AM VINER OPERATOR): Pre-diabetes is a precursor to Dm. [...] labs Assessment & Plan (09/26/2019 10:27 PM VINER OPERATOR): This is a significant, separately identifiable [...] 025 Assessment & Plan (11/19/2024 11:45 PM VINER OPERATOR): Encouraged healthy lifestyle, good nutrition and exercise. Encouraged Calcium and Vitamin D and weight bearing exercise for bone health. Reviewed immunizations Reviewed age appropirate screenings. BMI 23.0-23.9, adult 06/20/2024 025 Assessment & Plan (10/30/2024 8:57 AM VINER OPERATOR): Weight/BMI is in healthy range. Continue [...] 024 Assessment & Plan (11/24/2023 10:35 AM VINER OPERATOR): Encouraged healthy lifestyle, good nutrition and exercise. Encouraged Calcium and Vitamin D and weight bearing exercise for bone health. Reviewed immunizations Reviewed age appropirate screenings. Need for influenza vaccination 08/15/2023 11/24/2023 Assessment & Plan (08/15/2023 5:04 PM VINER OPERATOR): Flu vaccine updated in the office today BMI 22.0-22.9, adult 07/22/2023 024 Assessment & Plan (08/11/2023 8:12 AM VINER OPERATOR): Weight/BMI is in healthy range. Continue [...] 04/03/2023 Assessment & Plan (08/15/2022 6:45 PM VINER OPERATOR): Flu updated in the office today [...] test outpatient. Was referred to an outside raw shellfish preparer. Encouraged to consider seeing a [facility] Medical group of cardiologists so [...] 022 Assessment & Plan (08/01/2021 7:28 AM VINER OPERATOR): Weight/BMI is in healthy range. Continue healthy lifestyle to maintain. Medicare annual wellness visit, subsequent 08/01/2021 08/15/2022 Assessment & Plan (08/01/2021 9:34 PM VINER OPERATOR): Encouraged healthy lifestyle, good nutrition and exercise. Encouraged Calcium and Vitamin D and weight bearing exercise for bone health. Reviewed immunizations. Reviewed age appropirate screenings. Medicare Wellness Documentation is completed within the chart Fatigue 05/17/2021 05/02/2022 Assessment & Plan (08/01/2021 9:34 PM VINER OPERATOR): Probably multifactorial. Check labs and followup [...] 024 Assessment & Plan (11/24/2023 10:34 AM VINER OPERATOR): Weight/BMI is in healthy range. Continue [...] 05/02/2022 Assessment & Plan (07/29/2020 7:34 AM VINER OPERATOR): Probably multifactorial. Check labs and followup to re-evaluate Need for immunization against influenza 07/29/2020 11/24/2020 Assessment & Plan (07/29/2020 7:34 AM VINER OPERATOR): Updated in office today BMI 22.0-22.9, adult 03/27/2020 024 Assessment & Plan (05/20/2024 7:37 PM CDT): Weight/BMI is in healthy range. Continue healthy lifestyle to maintain. Assessment & Plan (07/29/2020 7:34 AM VINER OPERATOR): Weight/BMI is in healthy range. Continue [...] 020 Assessment & Plan (09/26/2019 7:39 AM VINER OPERATOR): Weight/BMI is in healthy range. Continue healthy lifestyle to maintain. Annual physical exam 09/26/2019 020 Assessment & Plan (09/26/2019 7:40 AM VINER OPERATOR): Encouraged healthy lifestyle, good nutrition and exercise. Encouraged Calcium and Vitamin D and weight bearing exercise for bone health. Reviewed immunizations Reviewed age appropirate screenings. Influenza vaccine refused 09/26/2019 Assessment & Plan (09/26/2019 7:40 AM VINER OPERATOR): Encouraged vaccine. Reviewed risks/ benefits. Patient refuses and accepts risks. Esophagitis determined by endoscopy 05/20/2019 05/02/2022 Gastritis 05/20/2019 05/02/2022 Essential (primary) hypertension 05/20/2019 05/20/2024 Assessment & Plan (11/24/2023 10:34 AM VINER OPERATOR): Bp is stable/in acceptable range for any co-morbidities. Encouraged to limit sodium intake and exercise for weight control. Continue losartan 50 Assessment & Plan (08/15/2023 5:04 PM VINER OPERATOR): Bp is stable/in acceptable range for any co-morbidities. Encouraged to limit sodium intake and exercise for weight control. Continue per Dr. Curtis Assessment & Plan (08/11/2023 8:45 AM VINER OPERATOR): Bp is stable/in acceptable range for [...] losartan Assessment & Plan (08/15/2022 6:44 PM VINER OPERATOR): Bp is stable/in acceptable range for [...] 50 Assessment & Plan (08/01/2021 9:33 PM VINER OPERATOR): Bp is stable/in acceptable range for [...] Losartan/HCTZ Assessment & Plan (07/29/2020 7:33 AM VINER OPERATOR): Bp is stable/in acceptable range for any co-morbidities. Encouraged to limit sodium intake and exercise for weight control. Losartan and HCTZ Assessment & Plan (03/27/2020 8:00 AM CDT): Bp is stable/in acceptable range for any co-morbidities. Encouraged to limit sodium intake and exercise for weight control. Continue losartan/HCTZ Assessment & Plan (09/26/2019 7:38 AM VINER OPERATOR): Bp is stable/in acceptable range for [...] 01/21/2022 Assessment & Plan (08/01/2021 9:34 PM VINER OPERATOR): Persistent hiccups. Has consulted with multiple [...] omeprazole Assessment & Plan (07/29/2020 7:32 AM VINER OPERATOR): Continue per ENT/Pulm. He is responding to BID omeprazole. Will monitor Assessment & Plan (03/27/2020 7:59 AM CDT): Dr. Stokes started him on Pantoprazole. He hasn't noted much difference. Needs to followup to complete workup. Encouraged patient to call and make appointment. Assessment & Plan (09/26/2019 10:26 PM VINER OPERATOR): This is a significant, separately identifiable problem that was evaluated and managed on the same day as the wellness exam Less frequent than in the past. Continue the PPI and monitor Rx sent to pharmacy. Assessment & Plan (08/24/2019 9:04 AM VINER OPERATOR): Improving with the PPI. Continue PPI [...] 2018 Assessment & Plan (08/24/2019 9:04 AM VINER OPERATOR): Encouraged vaccine. Reviewed risks/ benefits. Patient [...] Care Team Description 09/03/2025 DEBBIE IP Outreach [facility] Accountable Care Organization [address] [place] [address] Ayla Dugan LPN 08/30/2025 Orders Only [facility] Health Information Management [address] [place] [address] Nuris Berger PA 08/29/2025 Orders Only [facility] Health Information Management [address] [place] [address] Scanning, Provider 07/31/2025 DEBBIE ED Outreach [address] [address] Roxana Fernandez MA 07/31/2025 DEBBIE IP Outreach [address] [address] Roxana Fernandez MA 07/31/[address] [place] [phone] Nuris Berger PA 06/26/2025 9:30 AM CDT Office Visit [address] [place] [phone] Nuris Berger PA Hyponatremia (Primary Dx); Psychogenic polydipsia; Chronic hiccups; BMI 23.0-23.9, adult; Generalized body aches; Legally blind; Flu vaccine need 06/21/[address] [place] [phone] Nuris Berger PA 06/20/2025 DEBBIE IP Outreach [address] [address] Bro[address] MA 06/19/2025 DEBBIE IP Outreach [address] [address] [address] [place] from Last 3 Months [...] Name Comments Blindness Father Heart attack Father [place] Heart disease Father No Known Problems Mother [...] often do you attend chur ch or baptist services? Patient declined 12/03/2023 Do you belong [...] on file Legal Sex Male 12:22 AM VINER OPERATOR Gender Identity Not on file Sexual [...] Read Routine (OP Routine) 10/03/2024 9:25 AM VINER OPERATOR Pulmonary nodules HEPATITIS PANEL, ACUTE Routine [...] PSA 1.33 < OR = 4.00 ng/mL [facility] Comment: The total PSA value from [...] ROBL[facility] LAB BLOOD ORDERABLES Final Result [facility] [address] [address] [phone] * CT Chest WO Contrast F/U Lung Screen Protocol (10/03/2024 9:25 AM VINER OPERATOR) Anatomical Region Laterality Modality Chest N/A Computed Tomogra phy 10/03/2024 7:11 PM VINER OPERATOR Narrative 10/03/2024 7:17 PM VINER OPERATOR EXAM DESCRIPTION: CT CHEST WO CONTRAST [...] Estuardo Ortiz M.D. KT T: Report ID: [id number] Reading Location: [id number] us Tasia Hoffman MD IM CT PROCEDURES Final Resul t * Hepatitis panel, acute (05/03/2022 5:40 AM CDT) Hep A IgM Nonreactive Nonreactive [facility] Comment: Interpretive Data: If Hep A IgM Ab is reported as Equivocal, a new sample should be drawn in two weeks for testing. Current interpretive data was last revised on 19. Hep B core IgM Nonreactive Nonreactive [facility] Comment: Interpretive Data If HepB Core IgM Ab is reported as Equivocal, a new sample should be drawn in two weeks for testing. Current interpretive data was last revised on 19. Hep C Ab Nonreactive Nonreactive [facility] Comment: Interpretive Data Nonreactive: Antibodies [...] last revised on 2019. HepBsAg Nonreactive Nonreactive [facility] Blood 05/03/2022 5:40 AM CDT 05/03/2022 6:36 AM CDT Pamela Gongora DO LAB MICROBIOLOGY - GENERAL OR DERABLES Final Result [facility] [address] [facility] Department [place] [address] * (ABNORMAL) COLONOSCOPY (07/14/2021) Jame Mg MD HEALTH MAINTENANCE Edited Result - Final from Last 3 Months or Most Recently Relevant to Health Maintenance Insurance A[employer] MEDICARE GOLD AETNA MEDICARE GOLD Advance Directives For more information, please contact: [phone] * Full Code (Latest Code Status on [...] 10:34 PM 11/16/2022 9:56 PM Care Teams Coke Still Cleaner Relationship Specialty Start Date End Date Nuris Berger PA [address] [place] [address] PCP - General Internal Medicine 12/28/18 Jonatan Stokes MD [address] [place] [address] Consulting Physician Otolaryngology 03/27/20 Irma Bajwa MD [address] [place] [address] Consulting Physician Neurology 05/07/22
--- OUTSIDE RECORDS SUMMARY | 2025-09-18 10:45 | XMS_ITS | Encounter Summary ---
Author Organization [facility] Healthcare Address [address] [place] [address] Care Team Providers Care Clinical Dietetic Technician Name Role Phone Nuris Berger Primary Care Provider [phone] Jonatan Stokes MD Unavailable [phone] Irma Bajwa MD Unavailable [phone] Ayla Dugan LPN Unavailable [phone] [place] Unavailable Unavailable Roxana Fernandez MA Unavailable [phone] Encounter Details Date Type Department Care Team (Late st Contact Info) Description 03/26/2025 Orders Only [facility] [place] [address] [place] [id number] Scanning, Provider Social History Tobacco Use Types Packs/Day Years Used Date Smoking Tobacco: Former Cigarettes 0.8 40 0 09/1981 - 09/2021 Smokeless Tobacco: Never Alcohol Use Standard Drinks/Week Comments Yes 0 (1 standard drink = 0.6 oz pur e alcohol) social [facility] Utilities Answer Date Recorded In the past 12 months has [employer] electric, gas, oil, or water company threatened [...] any clubs o r organizations such as moravian groups, unions, fraternal or athletic groups, or [...] on file Legal Sex Male 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 Gender Identity Not on file Sexual Orientation [...] on filedocumented in this encounter Care Teams Clinical Dietetic Technician Relationship Specialty Start Date End Date Nuris Berger PA [address] [facility] [address] [place] [address] PCP - General Internal Medicine 12/28/18 Jonatan Stokes MD [address] [place] [address] Consulting Physician Otolaryngology 03/27/20 Irma Bajwa MD [address] [facility] [place] [address] Consulting Physician Neurology 05/07/22 Ayla Dugan LPN [address] [place] [address] [address] [place] [address] Product/Device Technologist 03/30/25 03/30/25 Brooke Plaza MA [address] [facility] [address] [place] [address] ACO Care Branch Operation Evaluation Manager 06/18/25 06/19/25 Roxana Fernandez MA [address] [place] [address] ACO Care Branch Operation Evaluation Manager 07/31/25 07/31/25 documented as of this encounter
--- OUTSIDE RECORDS SUMMARY | 2025-09-18 10:45 | XMS_ITS | Clinical Summary ---
Author Organization [facility] Address [address] [place] [address] Care Team Providers Care Catalyst Recovery Operator Name Role Phone Nuris Berger PA-C Primary Care Provider [phone] Source Comments [facility],non-owned Affiliates and Associated Physician Practices is amultiple site organization consisting of ambulatory clinics and hospital sitesin [place], [place], [place] and [place]. This disclosure is being madepursuant to the Care Everywhere program and may not contain all information available regarding this patient. Last updated 18.[facility] Allergies Active Allergy Reactions Criticality Noted Date [...] tablet 06/17/2023 Active ergocalciferol (Drisdol) 1.25 MG (51121 UT) capsule Take 1 (one) capsule by [...] 11 07/21/2024 Active trimethoprim-po lymyxin B (Polytrim) 86891-8.1 UNIT/ML-% ophthalmic solution Instill 1 (one) drop [...] Overview (12/24/2020): Colonoscopy 01/29/2012 at [facility]--->2021 Last Assessment & Plan: Recvd [...] Department Care Team Description 08/07/2025 9:15 AM LINING PRESSER Clinical Support [facility] - Ophthalmology [address] [place] [phone] Tyrel Velez MD 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 (Primary Dx) 08/07/2025 8:45 AM LINING PRESSER Clinical Support [facility] - Ophthalmology [address] [place] [phone] Tyrel Velez MD 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 (Primary Dx) 08/07/2025 8:40 AM LINING PRESSER Office Visit [facility] - Ophthalmology [address] [place] [phone] Tyrel Velez MD 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 (Primary Dx) 08/07/2025 Travel from Last 3 Months Immunizations Immunization Administration Dates Next Due CovGrivy primary monoval ent 12+ yr 0.3mL Purple [...] Comments Blood Pressure 128/70 08/26/2023 12:43 PM LINING PRESSER Pulse 65 08/26/2023 12:43 PM LINING PRESSER Temperature 35.9 C (96.7 F) 08/26/2023 12:34 PM LINING PRESSER Respiratory Rate 14 08/26/2023 12:43 PM LINING PRESSER Oxygen Saturation 98% 08/26/2023 12:34 PM LINING PRESSER Inhaled Oxygen Concentration - - Weight 64.9 kg (143 lb) 08/26/2023 9:01 AM LINING PRESSER Height 172.7 cm (5' 8) 08/26/2023 9:01 AM LINING PRESSER Body Mass Index 21.74 08/26/2023 9:01 AM LINING PRESSER Plan of Treatment Upcoming Encounters Date Type Department Care Team (Late st Contact Info) Description 10/17/2025 9:00 AM LINING PRESSER Office Visit [facility] - Ophthalmology [address] [place] [phone] Louis Hansen MD [address] [place] [address] [place] [phone] 04/16/2026 9:00 AM CDT Office Visit [facility] - Ophthalmology [address] [place] [phone] Tyrel Velez MD [address] [place] [phone] Health Maintenance Due Date Last Done Comments [...] this topic Medical Devices Implanted Type Area Scale Manager Device Identifier Shelf Expiration Date Model / Serial / Lot Drain Glcm Thk.9mm Blnt Tpr [facility] Fl - [id number] Implanted:Qty: 1 on 05/04/2018 by Tyrel Velez MD at [facility] Left: Eye [employer] 03/15/2020 FP7 / [id number] / [id number] Graft Tissue Ttplst Sclr .8x.5cm Lopro - [id number] Implanted:Qty: 1 on 05/04/2018 by Tyrel Velez MD at [facility] Left: Eye [employer] 01/17/2023 [id number] / [id number] / [id number] Impl Opth 250sq Mm Brvldt Magaly 1 Qdrnt - [id number] Implanted:Qty: 1 on 06/16/2023 by Tyrel Velez MD at [facility] Left: Eye [employer] 01/09/2024 [id number] / [id number] / Graft Tissue Ttpl Ioptch Sclr .8x.5cm - [id number] Implanted:Qty: 1 on 06/16/2023 by Tyrel Velez MD at [facility] Left: Eye [employer] 09/19/2027 16650 / [id number] / Graft Tissue Ttpl Ioptch Sclr .8x.5cm - [id number] Implanted:Qty: 1 on 06/16/2023 by Tyrel Velez MD at [facility] Left: Eye [employer] 09/19/2027 [id number] / [id number] / J Luis Cornea - [id number] Implanted:Qty: 1 on 08/26/2023 by Louis Hansen MD at [facility] Left: Eye [employer] 09/05/2023 [id number] / [id number] / [id number] Description:Product Numb:[id number] EXP:09-05-2023 DIN:[id number] Insurance SELF PAY NO INSURANCE Member Subscriber Plan / Payer (Ef fective for All Dates) Name:Mark Randolph Member ID:Not on file Relation to Subscriber:Self Name:MARK RANDOLPH Subscriber ID:Not on file Payer ID:Not on file Group ID:Not on file Type:Self Pay Address: [place], [place] AETNA MEDICARE ADV AETNA Advance Directives * Full Code (Latest Code Status on File) Date Activated Date Inactivated Comments 05/04/2018 11:35 AM 05/04/2018 1:21 PM * Full Code Date Activated Date Inactivated Comments 05/04/2018 7:43 AM 05/04/2018 11:35 AM Care Teams Catalyst Recovery Operator Relationship Specialty Start Date End Date Nuris Berger PA-C PCP - General 02/13/20
[2025-09-18 11:01] LABS: Hematocrit 28.2 % (42.0-52.0); Hemoglobin 9.5 g/dL (14.0-18.0); Immature Granulocyte Percent A 0.4 % (0-0.5); Lymphocytes Absolute Auto 0.77 K/mm3 (0.9-3.2); Mean Corpuscular HGB Conc 33.7 g/dl (32-36); Mean Corpuscular Hemoglobin 28.7 pg (26-34); Mean Corpuscular Volume 85.2 fl (80-100); Nucleated Red Blood Cells Absolute Auto 0.000 K/mm3 (0.0-0.012); Nucleated Red Blood Cells Perc 0.0 % (0.0-0.2); Platelet Count Result 226 k/mm3 (150-375); Red Blood Count 3.31 M/mm3 (4.6-6.20); White Blood Count 12.9 K/mm3 (4.5-10.0)
--- OUTSIDE RECORDS SUMMARY | 2025-09-18 11:38 | XMS_ITS | Encounter Summary ---
Author Organization [facility] Healthcare Address [address] [place] [address] Care Team Providers Care Field Geologist Name Role Phone Nuris Berger Primary Care Provider [phone] Jonatan Stokes MD Unavailable [phone] Irma Bajwa MD Unavailable [phone] Ayla Dugan LPN Unavailable [phone] MA Unavailable Unavailable Roxana Fernandez MA Unavailable Encounter Details Date Type Department Care Team (Late st Contact Info) Description 12/21/2024 Orders Only [facility] [place] Health Information Management [address] [place] [address] Scanning, Provider Social History Tobacco Use Types Packs/Day Years Used Date Smoking Tobacco: Former Cigarettes 0.8 40 0 09/1981 - 09/2021 Smokeless Tobacco: Never Alcohol Use Standard Drinks/Week Comments Yes 0 (1 standard drink = 0.6 oz pur e alcohol) social [facility] Utilities Answer Date Recorded In the past 12 months has [employer] electric, gas, oil, or water company threatened [...] often do you attend chur ch or muslim services? 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 Gender Identity Not on file Sexual Orientation [...] on filedocumented in this encounter Care Teams Field Geologist Relationship Specialty Start Date End Date Nuris Berger PA [address] [place] [address] PCP - General Internal Medicine 12/28/18 Jonatan Stokes MD [address] [place] [address] Consulting Physician Otolaryngology 03/27/20 Irma Bajwa MD [facility] [address] Consulting Physician Neurology 05/07/22 Ayla Dugan LPN [address] [place] [address] Security Attendant 03/30/25 03/30/25 Brooke Plaza MA [address] [place] [address] ACO Care Audit Lead 06/18/25 06/19/25 Roxana Fernandez MA [address] [place] [address] ACO Care Audit Lead 07/31/25 07/31/25 documented as of this encounter
--- OUTSIDE RECORDS SUMMARY | 2025-09-18 11:38 | XMS_ITS | Encounter Summary ---
Author Organization [facility] Healthcare Address [address] [place] [address] Care Team Providers Care Brine Mixer Operator Name Role Phone Nuris Berger Primary Care Provider [phone] Jonatan Stokes MD Unavailable Irma Bajwa MD Unavailable [phone] MA Unavailable Unavailable Roxana Fernandez MA Unavailable [phone] Encounter Details Date Type Department Care Team (Late st Contact Info) Description 05/29/2025 Orders Only [facility] Information Management [address] [place] [address] Scanning, Provider Social History Tobacco Use Types Packs/Day Years Used Date Smoking Tobacco: Former Cigarettes 0.8 40 0 09/1981 - 09/2021 Smokeless Tobacco: Never Alcohol Use Standard Drinks/Week Comments Yes 2 (1 standard drink = 0.6 oz pur e alcohol) social [facility] Utilities Answer Date Recorded In the past 12 months has [employer] electric, gas, oil, or water company threatened [...] week 12/03/2023 How often do you attend [facility] or taoist services? Patient declined 12/03/2023 Do you belong to any clubs o r organizations such as alevism groups, unions, fraternal or athletic groups, or [...] a care home (including now)? 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 Gender Identity Not on file Sexual Orientation [...] on filedocumented in this encounter Care Teams Brine Mixer Operator Relationship Specialty Start Date End Date Nuris Berger PA [address] [facility] [place] [address] PCP - General Internal Medicine 12/28/18 Jonatan Stokes MD [address] [place] [address] Consulting Physician Otolaryngology 03/27/20 Irma Bajwa MD [address] [place] [address] Consulting Physician Neurology 05/07/22 Brooke Plaza MA [address] [place] [address] ACO Care Folder Inspector 06/18/25 06/19/25 Roxana Fernandez MA [address] [place] [address] ACO Care Folder Inspector 07/31/25 07/31/25 documented as of this encounter
--- OUTSIDE RECORDS SUMMARY | 2025-09-18 11:38 | XMS_ITS | Encounter Summary ---
Author Organization [facility] Healthcare Address [address] [place] [address] Care Team Providers Care Dam Attendant Name Role Phone Nuris Berger Primary Care Provider [phone] Jonatan Stokes MD Unavailable [phone] Irma Bajwa MD Unavailable [phone] Ayla Dugan LPN Unavailable [phone] MA Unavailable Unavailable Roxana Fernandez MA Unavailable [phone] Encounter Details Date Type Department Care Team (Late st Contact Info) Description 12/26/2024 Orders Only [facility] [place] Health Information Management [address] [place] [address] Scanning, Provider Social History Tobacco Use Types Packs/Day Years Used Date Smoking Tobacco: Former Cigarettes 0.8 40 0 09/1981 - 09/2021 Smokeless Tobacco: Never Alcohol Use Standard Drinks/Week Comments Yes 0 (1 standard drink = 0.6 oz pur e alcohol) social [facility] Utilities Answer Date Recorded In the past 12 months has [employer] electric, gas, oil, or water company threatened [...] on file Legal 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 Male 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 RHINOLOGIST Gender Identity Not on file Sexual Orientation [...] on filedocumented in this encounter Care Teams Dam Attendant Relationship Specialty Start Date End Date Nuris Berger PA [address] [facility] [address] [place] [address] PCP - General Internal Medicine 12/28/18 Jonatan Stokes MD [address] [place] [address] Consulting Physician Otolaryngology 03/27/20 Irma Bajwa MD [address] [place] [address] Consulting Physician Neurology 05/07/22 Ayla Dugan LPN [address] [place] [address] [address] [place] [address] Scrap Drop Engineer 03/30/25 03/30/25 Brooke Plaza MA [address] [place] [address] ACO Care Tongue Binder 06/18/25 06/19/25 Roxana Fernandez MA [address] [place] [address] ACO Care Tongue Binder 07/31/25 07/31/25 documented as of this encounter
--- OUTSIDE RECORDS SUMMARY | 2025-09-18 11:38 | XMS_ITS | Clinical Summary ---
Author Organization [facility] Address [facility] [place] [address] Care Team Providers Care Timber Sprinkler Name Role Phone Nuris Berger Primary Care Provider [phone] Allergies No known active allergies Medications albuterol [...] Comments Blood Pressure 120/62 09/04/2021 8:52 AM PRE K SPECIAL EDUCATION TEACHER Pulse 82 09/04/2021 8:52 AM PRE K SPECIAL EDUCATION TEACHER Temperature 36.3 C (97.4 F) 09/04/2021 8:52 AM PRE K SPECIAL EDUCATION TEACHER Respiratory Rate 16 09/04/2021 8:52 AM PRE K SPECIAL EDUCATION TEACHER Oxygen Saturation 97% 09/04/2021 8:52 AM PRE K SPECIAL EDUCATION TEACHER Inhaled Oxygen Concentration - - Weight 64.4 kg (142 lb) 09/04/2021 8:52 AM PRE K SPECIAL EDUCATION TEACHER Height 172.7 cm (5' 8) 09/04/2021 8:52 AM PRE K SPECIAL EDUCATION TEACHER Body Mass Index 21.59 09/04/2021 8:52 AM PRE K SPECIAL EDUCATION TEACHER Plan of Treatment Health Maintenance Due Date [...] this topic Insurance AETNA MEDICARE Care Teams Timber Sprinkler Relationship Specialty Start Date End Date Nuris Berger PA [address] [place] [address] PCP - General PHYSICIAN MEMBERSHIP SALES ADVISOR 06/09/21
--- OUTSIDE RECORDS SUMMARY | 2025-09-18 11:38 | XMS_ITS | Encounter Summary ---
Author Organization [facility] Healthcare Address [address] [place] [address] Care Team Providers Care Concessions Manager Name Role Phone Nuris Berger Primary Care Provider [phone] Jonatan Stokes MD Unavailable [phone] Irma Bajwa MD Unavailable [phone] Ayla Dugan LPN Unavailable [phone] MA Unavailable Unavailable Roxana Fernandez MA Unavailable [phone] Encounter Details Date Type Department Care Team (Late st Contact Info) Description 03/26/2025 Orders Only [facility] Health Information Management [address] [place] [address] Scanning, Provider Social History Tobacco Use Types Packs/Day Years Used Date Smoking Tobacco: Former Cigarettes 0.8 40 0 09/1981 - 09/2021 Smokeless Tobacco: Never Alcohol Use Standard Drinks/Week Comments Yes 0 (1 standard drink = 0.6 oz pur e alcohol) social [facility] Utilities Answer Date Recorded In the past 12 months has [employer] electric, gas, oil, or water company threatened [...] on file Legal 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 Gender Identity Not on file Sexual Orientation [...] on filedocumented in this encounter Care Teams Concessions Manager Relationship Specialty Start Date End Date Nuris Berger PA [address] [facility] [address] [place] [address] PCP - General Internal Medicine 12/28/18 Jonatan Stokes MD [address] [place] [address] Consulting Physician Otolaryngology 03/27/20 Irma Bajwa MD [address] [place] [address] Consulting Physician Neurology 05/07/22 Ayla Dugan LPN [address] [place] [address] [address] [place] [address] Servicenow Administrator Developer 03/30/25 03/30/25 Brooke Plaza MA [address] [place] [address] ACO Care Dog Or Horse Racing Official 06/18/25 06/19/25 Roxana Fernandez MA [address] [place] [address] ACO Care Dog Or Horse Racing Official 07/31/25 07/31/25 documented as of this encounter
--- OUTSIDE RECORDS SUMMARY | 2025-09-18 11:38 | XMS_ITS | Clinical Summary ---
Author Organization [facility] [address] [facility] Address [address] [place] [address] Care Team Providers [employer] Name Role Phone Nuris Berger Primary Care Provider [phone] Jonatan Stokes MD Unavailable [phone] Irma Bajwa MD Unavailable [phone] Allergies Active Allergy Reactions Criticality Noted Date [...] 11/24/2023 Assessment & Plan (11/19/2024 11:45 PM FOOD AND BEVERAGE CONTROLLER): Supplement Assessment & Plan (05/20/2024 7:36 PM CDT): Supplement Fatigue 12/12/2022 Assessment & Plan (05/20/2024 7:37 PM CDT): Probably multifactorial. Check labs and followup to re-evaluate Assessment & Plan (11/24/2023 10:35 AM FOOD AND BEVERAGE CONTROLLER): Probably multifactorial. Check labs and followup to [...] 01/16/2022 Assessment & Plan (11/19/2024 11:44 PM FOOD AND BEVERAGE CONTROLLER): Chronic hiccups for 5+ years Has been [...] to the ER. ER recommended referral to [place] but patient states he can't go to [...] weeks Assessment & Plan (11/24/2023 10:34 AM FOOD AND BEVERAGE CONTROLLER): Patient has persistent chronic hiccups that come [...] monitor Assessment & Plan (08/15/2023 5:01 PM FOOD AND BEVERAGE CONTROLLER): Chronic hiccups for years. Has tried multiple interventions along with multiple workups from specialists including Neurology pulmonology and GI. Continue current regimen. Stressed importance of limiting water intake when he has the hiccups spells as this has been leading to hyponatremia requiring hospitalization. Assessment & Plan (08/11/2023 8:45 AM FOOD AND BEVERAGE CONTROLLER): Patient with chronic hiccups. Have had difficulty [...] levels. Assessment & Plan (08/15/2022 6:45 PM FOOD AND BEVERAGE CONTROLLER): Patient has consulted with most multiple specialists [...] hiccups. Assessment & Plan (08/15/2023 5:02 PM FOOD AND BEVERAGE CONTROLLER): Chronic hiccups for years. Has tried multiple interventions along with multiple workups from specialists including Neurology pulmonology and GI. Continue current regimen. Stressed importance of limiting water intake when he has the hiccups spells as this has been leading to hyponatremia requiring hospitalization. Assessment & Plan (08/11/2023 8:46 AM FOOD AND BEVERAGE CONTROLLER): Hyponatremia secondary to water intake with chronic [...] Mitchell EGD: severe ulcerative esophagitis. PPI bid intermediate card tender, carafate and avoid NSAIDs/ASA---->rep EGD in 12/2025 Assessment & Plan (11/19/2024 11:44 PM FOOD AND BEVERAGE CONTROLLER): Continue PPI p.r.n. Assessment & Plan (05/20/2024 7:35 PM CDT): Continue pantoprazole p.r.n. Assessment & Plan (11/24/2023 10:33 AM FOOD AND BEVERAGE CONTROLLER): Continue pantoprazole p.r.n. Assessment & Plan (04/08/2023 8:48 PM CDT): Continue PPI p.r.n. Assessment & Plan (12/12/2022 9:43 PM CDT): Insert PPI Assessment & Plan (08/15/2022 6:45 PM FOOD AND BEVERAGE CONTROLLER): Continue PPI prn Assessment & Plan (02/09/2021 8:17 PM CDT): Continue PPI Assessment & Plan (07/29/2020 7:33 AM FOOD AND BEVERAGE CONTROLLER): Continue PPI Assessment & Plan (03/27/2020 8:01 AM CDT): Dr. Stokes changed him from omeprazole to Pantoprazole for the hiccups. Pt hasn't noted any difference in GERD sxs (still well controlled) or hiccups. Assessment & Plan (09/26/2019 7:38 AM FOOD AND BEVERAGE CONTROLLER): Continue PPI Assessment & Plan (07/14/2019 8:46 AM CDT): Discussed GERD at length including anatomy, behavioral changes (raise HOB, meal timings), dietary changes and medication options. Reviewed risks, benefits alternatives, side effects and proper use. Followup if sxs worsen or has hematochezia or hematemeis. Start PPI Chronic obstructive pulmonary disease 06/26/2019 Overview (06/26/2019): Noted on 06/2019 LDCT Assessment & Plan (11/19/2024 11:44 PM FOOD AND BEVERAGE CONTROLLER): Patient with allergies and COPD. Continue Singulair albuterol and Symbicort. Follows with Dr. Valdes. Assessment & Plan (05/20/2024 7:35 PM CDT): Continue per Dr. Valdes. Continue with his Symbicort and albuterol inhalers. Low-dose CT will be scheduled for June 16, 2024. Assessment & Plan (11/24/2023 10:33 AM FOOD AND BEVERAGE CONTROLLER): COPD. Continue per Dr. Hammond his it trainer Continue Symbicort Singulair and albuterol p.r.n. Assessment & Plan (04/08/2023 8:48 PM CDT): Encouraged smoking cessation. Continue per Dr. Hammond pulmonology. He is on albuterol Symbicort and Singulair Assessment & Plan (12/12/2022 9:43 PM CDT): Stop smoking. Continue per Pulmonary. Continue Symbicort Singulair and albuterol. Continue monitoring low-dose CTs as instructed Assessment & Plan (08/15/2022 6:44 PM FOOD AND BEVERAGE CONTROLLER): Stop smoking. Continue current plan per Pulmonary Assessment & Plan (08/01/2021 9:34 PM FOOD AND BEVERAGE CONTROLLER): Continue per Pulmonary Dr. Valdes Assessment & Plan (02/09/2021 8:15 PM CDT): Stop smoking. Continue per Dr. Valdes Assessment & Plan (07/29/2020 7:32 AM FOOD AND BEVERAGE CONTROLLER): Continue per Pulm Assessment & Plan (03/27/2020 8:00 AM CDT): Stop smoking. He declines starting inhalers or referral to Pulmonary Assessment & Plan (09/26/2019 10:27 PM FOOD AND BEVERAGE CONTROLLER): This is a significant, separately identifiable problem [...] order Assessment & Plan (07/29/2020 7:33 AM FOOD AND BEVERAGE CONTROLLER): Needs to repeat ---Dr. Valdes has already ordered Assessment & Plan (03/27/2020 8:00 AM CDT): 06/2019 LDCT Several 2-3mm nodules, probable benign LungRADs 2 --- repeat 06/2020 Assessment & Plan (09/26/2019 10:26 PM FOOD AND BEVERAGE CONTROLLER): 06/2019 LDCT Several 2-3mm nodules, probable benign LungRADs 2 --- repeat 06/2020 Hyperplastic rectal polyp 05/20/2019 Overview (05/20/2019): Colonoscopy 01/29/2012 at [facility]--->2021 Assessment & Plan (05/28/2019 7:33 PM CDT): Recvd colonoscopy and due to repeat in 2021 Hiatal hernia 05/20/2019 Mixed hyperlipidemia 05/20/2019 Assessment & Plan (11/19/2024 11:45 PM FOOD AND BEVERAGE CONTROLLER): Encouraged patient to follow low fat/low chol [...] 80 Assessment & Plan (11/24/2023 10:34 AM FOOD AND BEVERAGE CONTROLLER): Encouraged patient to follow low fat/low chol diet like the Mediterranean diet. Increase good fats in the diet. Increase exercise. Monitor labs as needed. Continue pravastatin 80 Assessment & Plan (08/15/2023 5:03 PM FOOD AND BEVERAGE CONTROLLER): Encouraged patient to follow low fat/low chol [...] Zetia Assessment & Plan (08/01/2021 9:33 PM FOOD AND BEVERAGE CONTROLLER): Encouraged patient to follow fat/low chol diet [...] statin Assessment & Plan (07/29/2020 7:34 AM FOOD AND BEVERAGE CONTROLLER): Encouraged patient to follow fat/low chol diet like the Mediterranean diet. Increase good fats in the diet. Increase exercise. Monitor labs as needed. Assessment & Plan (03/27/2020 8:02 AM CDT): Encouraged patient to continue low fat/low chol diet. Continue exercise. Increase good fats in the diet. Monitor labs as needed. Stable with zetia and pravastatin Assessment & Plan (09/26/2019 7:39 AM FOOD AND BEVERAGE CONTROLLER): Encouraged patient to continue low fat/low chol [...] change Assessment & Plan (08/15/2023 5:03 PM FOOD AND BEVERAGE CONTROLLER): Patient is legally blind. Continue with Ophthalmology Assessment & Plan (04/08/2023 8:47 PM CDT): No change Assessment & Plan (03/27/2020 8:02 AM CDT): No change Assessment & Plan (09/26/2019 7:39 AM FOOD AND BEVERAGE CONTROLLER): No change Assessment & Plan (05/28/2019 7:35 PM CDT): No change Cigarette smoker 05/20/2019 Assessment & Plan (08/11/2023 8:45 AM FOOD AND BEVERAGE CONTROLLER): Encouraged smoking cessation. Discussed 3 minutes. Reviewed options for assistance with cessation. Reviewed intermediate card tender sequela associated with smoking. Pt declines assistance at this time but may contact the office at anytime for further help as they desire. Assessment & Plan (04/08/2023 8:47 PM CDT): Encouraged smoking cessation. Discussed 3 minutes. Reviewed options for assistance with cessation. Reviewed intermediate card tender sequela associated with smoking. Pt declines [...] desire. Assessment & Plan (08/15/2022 6:44 PM FOOD AND BEVERAGE CONTROLLER): Encouraged smoking cessation. Discussed 3 minutes. Reviewed options for assistance with cessation. Reviewed nursing home sequela associated with smoking. Pt declines assistance at this time but may contact the office at anytime for further help as they desire. Assessment & Plan (05/09/2022 8:19 PM CDT): Encouraged smoking cessation. Discussed 3 minutes. Reviewed options for assistance with cessation. Reviewed intermediate card tender sequela associated with smoking. Pt declines assistance at this time but may contact the office at anytime for further help as they desire. Assessment & Plan (08/01/2021 9:33 PM FOOD AND BEVERAGE CONTROLLER): Encouraged smoking cessation. Discussed 3 minutes. Reviewed options for assistance with cessation. Reviewed intermediate card tender sequela associated with smoking. Pt declines assistance at this time but may contact the office at anytime for further help as they desire. Assessment & Plan (05/17/2021 11:41 PM CDT): Encouraged smoking cessation. Discussed 3 minutes. Reviewed options for assistance with cessation. Reviewed intermediate card tender sequela associated with smoking. Pt declines assistance at this time but may contact the office at anytime for further help as they desire. Assessment & Plan (03/12/2021 12:31 PM CDT): Encouraged smoking cessation. Discussed 3 minutes. Reviewed options for assistance with cessation. Reviewed nursing home sequela associated with smoking. He is slowing down. Offered assistance. May call if decides he wants help Assessment & Plan (07/29/2020 7:34 AM FOOD AND BEVERAGE CONTROLLER): Encouraged smoking cessation. Discussed 3 minutes. Reviewed options for assistance with cessation. Reviewed intermediate card tender sequela associated with smoking. Pt declines assistance at this time but may contact the office at anytime for further help as they desire. Assessment & Plan (03/27/2020 8:02 AM CDT): Encouraged smoking cessation. Discussed 3 minutes. Reviewed options for assistance with cessation. Reviewed intermediate card tender sequela associated with smoking. Pt declines assistance at this time but may contact the office at anytime for further help as they desire. Assessment & Plan (09/26/2019 7:39 AM FOOD AND BEVERAGE CONTROLLER): Encouraged smoking cessation. Discussed 3 minutes. Reviewed [...] 05/20/2019 Assessment & Plan (11/19/2024 11:45 PM FOOD AND BEVERAGE CONTROLLER): Pre-diabetes/hyperglycemia is a precursor to Dm. Stressed [...] diabetes. Assessment & Plan (11/24/2023 10:34 AM FOOD AND BEVERAGE CONTROLLER): Pre-diabetes/hyperglycemia is a precursor to Dm. Stressed importance of working on diet (decrease your simple sugars and one carbohydrate with each meal) and increase you exercise to achieve weight loss and this will help prevent you from progressing to diabetes. Assessment & Plan (08/15/2023 5:03 PM FOOD AND BEVERAGE CONTROLLER): Pre-diabetes/hyperglycemia is a precursor to Dm. Stressed [...] diabetes. Assessment & Plan (08/01/2021 9:33 PM FOOD AND BEVERAGE CONTROLLER): Pre-diabetes/hyperglycemia is a precursor to Dm. Stressed [...] diabetes. Assessment & Plan (07/29/2020 7:34 AM FOOD AND BEVERAGE CONTROLLER): Pre-diabetes is a precursor to Dm. Stressed [...] labs Assessment & Plan (09/26/2019 10:27 PM FOOD AND BEVERAGE CONTROLLER): This is a significant, separately identifiable problem [...] 025 Assessment & Plan (11/19/2024 11:45 PM FOOD AND BEVERAGE CONTROLLER): Encouraged healthy lifestyle, good nutrition and exercise. Encouraged Calcium and Vitamin D and weight bearing exercise for bone health. Reviewed immunizations Reviewed age appropirate screenings. BMI 23.0-23.9, adult 06/20/2024 025 Assessment & Plan (10/30/2024 8:57 AM FOOD AND BEVERAGE CONTROLLER): Weight/BMI is in healthy range. Continue healthy [...] 024 Assessment & Plan (11/24/2023 10:35 AM FOOD AND BEVERAGE CONTROLLER): Encouraged healthy lifestyle, good nutrition and exercise. Encouraged Calcium and Vitamin D and weight bearing exercise for bone health. Reviewed immunizations Reviewed age appropirate screenings. Need for influenza vaccination 08/15/2023 11/24/2023 Assessment & Plan (08/15/2023 5:04 PM FOOD AND BEVERAGE CONTROLLER): Flu vaccine updated in the office today BMI 22.0-22.9, adult 07/22/2023 024 Assessment & Plan (08/11/2023 8:12 AM FOOD AND BEVERAGE CONTROLLER): Weight/BMI is in healthy range. Continue healthy [...] 04/03/2023 Assessment & Plan (08/15/2022 6:45 PM FOOD AND BEVERAGE CONTROLLER): Flu updated in the office today BMI [...] test outpatient. Was referred to an outside remote mortgage underwriter. Encouraged to consider seeing a [place] [...] 022 Assessment & Plan (08/01/2021 7:28 AM FOOD AND BEVERAGE CONTROLLER): Weight/BMI is in healthy range. Continue healthy lifestyle to maintain. Medicare annual wellness visit, subsequent 08/01/2021 08/15/2022 Assessment & Plan (08/01/2021 9:34 PM FOOD AND BEVERAGE CONTROLLER): Encouraged healthy lifestyle, good nutrition and exercise. Encouraged Calcium and Vitamin D and weight bearing exercise for bone health. Reviewed immunizations. Reviewed age appropirate screenings. Medicare Wellness Documentation is completed within the chart Fatigue 05/17/2021 05/02/2022 Assessment & Plan (08/01/2021 9:34 PM FOOD AND BEVERAGE CONTROLLER): Probably multifactorial. Check labs and followup to [...] 024 Assessment & Plan (11/24/2023 10:34 AM FOOD AND BEVERAGE CONTROLLER): Weight/BMI is in healthy range. Continue healthy [...] 05/02/2022 Assessment & Plan (07/29/2020 7:34 AM FOOD AND BEVERAGE CONTROLLER): Probably multifactorial. Check labs and followup to re-evaluate Need for immunization against influenza 07/29/2020 11/24/2020 Assessment & Plan (07/29/2020 7:34 AM FOOD AND BEVERAGE CONTROLLER): Updated in office today BMI 22.0-22.9, adult 03/27/2020 024 Assessment & Plan (05/20/2024 7:37 PM CDT): Weight/BMI is in healthy range. Continue healthy lifestyle to maintain. Assessment & Plan (07/29/2020 7:34 AM FOOD AND BEVERAGE CONTROLLER): Weight/BMI is in healthy range. Continue healthy [...] 020 Assessment & Plan (09/26/2019 7:39 AM FOOD AND BEVERAGE CONTROLLER): Weight/BMI is in healthy range. Continue healthy lifestyle to maintain. Annual physical exam 09/26/2019 020 Assessment & Plan (09/26/2019 7:40 AM FOOD AND BEVERAGE CONTROLLER): Encouraged healthy lifestyle, good nutrition and exercise. Encouraged Calcium and Vitamin D and weight bearing exercise for bone health. Reviewed immunizations Reviewed age appropirate screenings. Influenza vaccine refused 09/26/2019 Assessment & Plan (09/26/2019 7:40 AM FOOD AND BEVERAGE CONTROLLER): Encouraged vaccine. Reviewed risks/ benefits. Patient refuses and accepts risks. Esophagitis determined by endoscopy 05/20/2019 05/02/2022 Gastritis 05/20/2019 05/02/2022 Essential (primary) hypertension 05/20/2019 05/20/2024 Assessment & Plan (11/24/2023 10:34 AM FOOD AND BEVERAGE CONTROLLER): Bp is stable/in acceptable range for any co-morbidities. Encouraged to limit sodium intake and exercise for weight control. Continue losartan 50 Assessment & Plan (08/15/2023 5:04 PM FOOD AND BEVERAGE CONTROLLER): Bp is stable/in acceptable range for any co-morbidities. Encouraged to limit sodium intake and exercise for weight control. Continue per Dr. Curtis Assessment & Plan (08/11/2023 8:45 AM FOOD AND BEVERAGE CONTROLLER): Bp is stable/in acceptable range for any [...] losartan Assessment & Plan (08/15/2022 6:44 PM FOOD AND BEVERAGE CONTROLLER): Bp is stable/in acceptable range for any [...] 50 Assessment & Plan (08/01/2021 9:33 PM FOOD AND BEVERAGE CONTROLLER): Bp is stable/in acceptable range for any [...] Losartan/HCTZ Assessment & Plan (07/29/2020 7:33 AM FOOD AND BEVERAGE CONTROLLER): Bp is stable/in acceptable range for any co-morbidities. Encouraged to limit sodium intake and exercise for weight control. Losartan and HCTZ Assessment & Plan (03/27/2020 8:00 AM CDT): Bp is stable/in acceptable range for any co-morbidities. Encouraged to limit sodium intake and exercise for weight control. Continue losartan/HCTZ Assessment & Plan (09/26/2019 7:38 AM FOOD AND BEVERAGE CONTROLLER): Bp is stable/in acceptable range for any [...] 01/21/2022 Assessment & Plan (08/01/2021 9:34 PM FOOD AND BEVERAGE CONTROLLER): Persistent hiccups. Has consulted with multiple providers [...] omeprazole Assessment & Plan (07/29/2020 7:32 AM FOOD AND BEVERAGE CONTROLLER): Continue per ENT/Pulm. He is responding to BID omeprazole. Will monitor Assessment & Plan (03/27/2020 7:59 AM CDT): Dr. Stokes started him on Pantoprazole. He hasn't noted much difference. Needs to followup to complete workup. Encouraged patient to call and make appointment. Assessment & Plan (09/26/2019 10:26 PM FOOD AND BEVERAGE CONTROLLER): This is a significant, separately identifiable problem that was evaluated and managed on the same day as the wellness exam Less frequent than in the past. Continue the PPI and monitor Rx sent to pharmacy. Assessment & Plan (08/24/2019 9:04 AM FOOD AND BEVERAGE CONTROLLER): Improving with the PPI. Continue PPI and [...] 2018 Assessment & Plan (08/24/2019 9:04 AM FOOD AND BEVERAGE CONTROLLER): Encouraged vaccine. Reviewed risks/ benefits. Patient refuses [...] IP Outreach [facility] Accountable Care Organization [address] [place] [address] Ayla Dugan LPN 08/30/2025 Orders Only [facility] Information Management [address] [place] [address] Nuris Berger PA 08/29/2025 Orders Only [facility] Health Information Management [address] [place] [address] Scanning, Provider 07/31/2025 [facility] Out[facility] [address] [address] Roxana Fernandez MA 07/31/2025 [facility] IP Outreach [address] [address] Roxana Fernandez MA 07/31/[address] [place] [phone] Nuris Berger PA 06/26/2025 9:30 AM CDT Office Visit [address] [place] [phone] Nuris Berger PA Hyponatremia (Primary Dx); Psychogenic polydipsia; Chronic hiccups; BMI 23.0-23.9, adult; Generalized body aches; Legally blind; Flu vaccine need 06/21/[address] [place] [phone] Nuris Berger PA 06/20/2025 [facility] IP Outreach [address] [address] [place] [place] 06/19/2025 [facility] IP Outreach [address] [address] [address] [place] from Last 3 Months [...] often do you attend chur ch or caodaism services? Patient declined 12/03/2023 Do you belong to any clubs o r organizations such as yazidi groups, unions, fraternal or athletic groups, or [...] in a mcfp (including now)? No 12/03/2023 AUDIT-C Answer Date [...] on file Legal Sex Male 12:22 AM FOOD AND BEVERAGE CONTROLLER Gender Identity Not on file Sexual Orientation [...] Read Routine (OP Routine) 10/03/2024 9:25 AM FOOD AND BEVERAGE CONTROLLER Pulmonary nodules HEPATITIS PANEL, ACUTE Routine 05/03/2022 [...] PSA 1.33 < OR = 4.00 ng/mL [employer] [facility] Comment: The total PSA value from [...] [facility] LAB BLOOD ORDERABLES Final Result [facility] [address] [phone] * CT Chest WO Contrast F/U Lung Screen Protocol (10/03/2024 9:25 AM FOOD AND BEVERAGE CONTROLLER) Anatomical Region Laterality Modality Chest N/A Computed Tomogra phy 10/03/2024 7:11 PM FOOD AND BEVERAGE CONTROLLER Narrative 10/03/2024 7:17 PM FOOD AND BEVERAGE CONTROLLER EXAM DESCRIPTION: CT CHEST WO CONTRAST F/U [...] Estuardo Ortiz M.D. KT T: Report ID: [id number] Reading Location: [id number] us Tasia Hoffman MD IM CT PROCEDURES Final Resul t * Hepatitis panel, acute (05/03/2022 5:40 AM CDT) Hep A IgM Nonreactive Nonreactive [facility] Comment: Interpretive Data: If Hep A IgM Ab is reported as Equivocal, a new sample should be drawn in two weeks for testing. Current interpretive data was last revised on 19. Hep B core IgM Nonreactive Nonreactive [facility] Comment: Interpretive Data If HepB Core IgM Ab is reported as Equivocal, a new sample should be drawn in two weeks for testing. Current interpretive data was last revised on 19. Hep C Ab Nonreactive Nonreactive [facility] Comment: Interpretive Data Nonreactive: Antibodies to HCV [...] last revised on 2019. HepBsAg Nonreactive Nonreactive [facility] Blood 05/03/2022 5:40 AM CDT 05/03/2022 6:36 AM CDT Pamela Gongora DO LAB MICROBIOLOGY - GENERAL OR DERABLES Final Result [facility] [address] [facility] Department [place] [address] * (ABNORMAL) COLONOSCOPY (07/14/2021) Jame Mg MD HEALTH MAINTENANCE Edited Result - Final from Last 3 Months or Most Recently Relevant to Health Maintenance Insurance [employer] MEDICARE GOLD A[employer] MEDICARE GOLD Advance Directives For more information, please contact: [phone] * Full Code (Latest Code Status on [...] 10:34 PM 11/16/2022 9:56 PM Care Teams [employer] Relationship Specialty Start Date End Date Nuris Berger PA [address] [place] [address] PCP - General Internal Medicine 12/28/18 Jonatan Stokes MD [address] [place] [address] Consulting Physician Otolaryngology 03/27/20 Irma Bajwa MD [address] [facility] [address] Consulting Physician Neurology 05/07/22
[2025-09-18 11:46] LABS: INR 1.0; Prothrombin Time 13.3 Seconds (11.1-14.7)
[2025-09-18 11:47] LABS: Partial Thromboplastin Time 36.4 Seconds (22.3-36.8)
[2025-09-18 11:48] LABS: Alanine Aminotransferase 12 U/L (6-50); Albumin Level 4.1 g/dL (3.5-5.1); Alkaline Phosphatase 68 U/L (38-126); Aspartate Amino Transferase 21 U/L (17-59); Bilirubin,Total 0.6 mg/dL (0.2-1.3); Blood Urea Nitrogen 7 mg/dL (9-20); Calcium 9.5 mg/dL (8.4-10.2); Carbon Dioxide 24 mmol/L (22-30); Chloride 86 mmol/L (98-107); Estimated CRCL calculation 75 ml/min; Estimated Glomerular Filt Rate > 60; Glucose 117 mg/dL (65-110); Potassium 4.5 mmol/L (3.4-5.0); Total Protein 7.1 g/dL (6.3-8.2)
[2025-09-18 11:49] LABS: Anion Gap 8 mmol/L (4-12); Sodium 118 mmol/L (137-145)
[2025-09-18 12:08] LABS: Influenza A QL RT-PCR Negative (Negative); Influenza B QL RT-PCR Negative (Negative); RSV RNA, RT-PCR Negative (Negative); SARS-CoV-2 RNA PCR Negative (Negative)
--- NOTE | 2025-09-18 12:08 | ED.GENADULT ---
HPI - General Adult General Chief complaint: GI Bleed Stated complaint: coughing up blood, dizzy, weak Time Seen by Provider: 09/18/25 10:29 History of Present Illness HPI narrative: 64-year-old male present to the emergency department for evaluation for generalized weakness with associated nausea vomiting and shortness of breath. Patient states he is feeling fine yesterday. Daughter states patient has been drinking a lot a water lately. Patient does have history of polydipsia. Patient also has history of hyponatremia secondary to this. Daughter states patient started having some emesis this morning and did have some blood-tinged emesis. Patient does have some suspected blood on his chin. Patient was Hemoccult negative on the rectal exam. Related Data Home Medications ?Medication ?Instructions ?Recorded ?Confirmed ?Last Taken ?Type losartan 50 mg tablet 50 mg PO DAILY 03/02/21 08/30/25 08/29/25 History montelukast 10 mg tablet 10 mg PO HS 03/02/21 08/30/25 08/29/25 History pravastatin 80 mg tablet 80 mg PO DAILY 03/02/21 08/30/25 08/29/25 History cholecalciferol (vitamin D3) 25 25 mcg PO DAILY 03/29/21 08/30/25 08/29/25 History mcg (1,000 unit) capsule (Vitamin D3) cyanocobalamin (vitamin B-12) 100 2,000 mcg PO DAILY 03/29/21 08/30/25 08/29/25 History mcg tablet dorzolamide 22.3 mg-timolol 6.8 1 drp LEFT EYE TID 06/29/24 08/30/25 08/29/25 History mg/mL eye drops budesonide-formoterol HFA 80 2 puff inhalation Q12H 12/26/24 08/30/25 08/29/25 History mcg-4.5 mcg/actuation aerosol inhaler gabapentin 300 mg capsule 300 mg PO DAILY 12/26/24 08/30/25 08/29/25 History aspirin 81 mg tablet,delayed 81 mg PO DAILY 03/25/25 08/30/25 08/29/25 History release (Adult Aspirin Regimen) 81 mg baclofen 10 mg tablet 10 mg PO Q12H Back pain 08/30/25 08/30/25 08/29/25 History Allergies Allergy/AdvReac Type Severity Reaction Status Date / Time No Known Allergies Allergy Verified 09/18/25 17:54 Review of Systems Review of Systems: All systems reviewed & are unremarkable except as noted in HPI and below PMFSH Past Medical History Medical History Ulcerative esophagitis Abnormal CT scan, esophagus Dysphagia Asthma-COPD overlap syndrome Wears hearing aid in both ears Adenomatous colon polyp Hiatal hernia Other osteonecrosis, left femur Other osteonecrosis, right femur Psychogenic polydipsia Erosive esophagitis Anemia of chronic disease Chronic hiccups Hyponatremia Tobacco abuse Normocytic anemia Glaucoma Legally blind. Hyperlipidemia Hypertension Surgical History Surgical History History of enucleation of eye Right, secondary to recurrent infection. Family History Family History Grandparent Acute myocardial infarction Mother Acute myocardial infarction Skin cancer Father Acute myocardial infarction Sibling Cancer Social History Social History Social History: Surrogate decision maker: Svitlana Hines, . Code status: Full code. Smoking packs per day: 1 Smoking cigarettes per day: 20.0 Years smoked: 50 Smoking pack-years: 50.00 Smoking status: Former smoker Tobacco type: cigarettes Second hand tobacco smoke exposure: No Smoking end date: 05/21/20 Alcohol intake: former Substance use: never Substance use type: does not use Lack of Transportation: No Lack of Food: Never True Current Housing: I Have Housing Concerned About Future Housing: No Difficulty Paying Gas/Electric Bills: No Difficulty Paying for Meds: No Currently Unemployed: No Education: High School Diploma/GED Difficulty w/ Childcare or Family Care: No Living arrangements: with family Additional living arrangements comments: The patient lives with his of 43 years in [place]. He and his had 4 children 1 of which at . His remaining children are healthy. 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 Spiritual care concerns: No Exam Narrative: APPEARANCE: Ill-appearing HEAD: normocephalic, atraumatic. EYES: PERRLA/EOMI, conjunctivae clear. NOSE: Normal no drainage EARS:TMS clear with good light reflex. THROAT: Pharynx clear, no exudate. NECK: Supple. No adenopathy, no masses. RESPIRATORY: Airway patent, respirations nonlabored. Clear to auscultation bilaterally, no rales, rhonchi, wheezing. CARDIOVASCULAR: Regular rate and rhythm without murmurs rubs or gallops. ABDOMINAL: Soft, nontender, nondistended, normal bowel sounds MUSCULOSKELETAL: Moves all extremities. Strength/ROM intact, No edema, No calf tenderness. NEURO: Alert. Cranial nerves II through XII intact. Good gait. Good coordination SKIN: Warm, dry. Normal Color Course Vital Signs Vital signs: Vital Signs Temperature 97.6 F 09/18/25 10:24 Pulse Rate 85 09/18/25 10:24 Respiratory Rate 19 09/18/25 10:24 Blood Pressure 156/68 H 09/18/25 10:24 Pulse Oximetry 100 09/18/25 10:24 Oxygen Delivery Room Air 09/18/25 10:24 Temperature 97.6 F 09/18/25 10:24 Pulse Rate 82 09/18/25 15:02 Respiratory Rate 20 09/18/25 15:02 Blood Pressure 144/63 H 09/18/25 15:02 Pulse Oximetry 100 09/18/25 15:02 Oxygen Delivery Room Air 09/18/25 10:24 MDM MDM Narrative Medical decision making narrative: 64-year-old male presents to the emergency department for hemoptysis, generalized weakness. Patient has been drinking excessive amounts of water today the began developing some nausea and vomiting. Family states that there was blood in the emesis and patient did have some bloody emesis on his face. Patient was Hemoccult negative on the digital rectal exam. Patient does have hemoglobin of 9.5 which is not far from his baseline. Patient does have history of polydipsia and hyponatremia and patient's sodium is 118. Patient has been having a large amount of urination in the emergency department. GI was consulted, patient is on a clear liquid diet and repeat H&H and BM at [facility] have been ordered. Patient was negative for influenza RSV and for COVID but patient did have evidence of pneumonia on the chest x-ray. Patient was started on antibiotics in the emergency department and blood culture was ordered. Case discussed with hospitalist patient was accepted for admission. Differential Diagnosis Differential Diagnosis: Upper GI bleed, lower GI bleed, pneumonia, hyponatremia, seizure, COVID, RSV, influenza Lab Data MDM Lab Attestation statement: I personally reviewed the patient's lab results. 09/18/25 15:00 09/18/25 11:19 Labs: Lab Results 09/18/25 09/18/25 09/18/25 Range/Units 10:54 11:13 11:19 WBC 12.9 H (4.5-10.0) K/mm3 RBC 3.31 L (4.6-6.20) M/mm3 Hgb 9.5 L (14.0-18.0) g/dL Hct 28.2 L (42.0-52.0) % MCV 85.2 (80-100) fl MCH 28.7 (26-34) pg MCHC 33.7 (32-36) g/dl RDW 13.8 (11.5-14.5) % Plt Count 226 (150-375) k/mm3 MPV 11.2 H (7.4-10.4) fl Immature Gran % (Auto) 0.4 (0-0.5) % Neut % (Auto) 88.1 H (45.5-73.1) % Lymph % (Auto) 6.0 L (18.3-44.2) % [place] % (Auto) 4.9 (2.6-8.5) % Eos % (Auto) 0.4 (0-4.4) % Baso % (Auto) 0.2 (0.2-1.2) % Lymph # (Auto) 0.77 L (0.9-3.2) K/mm3 [place] # (Auto) 0.6 (0.1-0.6) K/mm3 Eos # (Auto) 0.1 (0-0.3) K/mm3 Baso # (Auto) 0.0 (0.0-0.1) K/mm3 Abs Immat Gran (auto) 0.05 H (0.00-0.031) K/mm3 Absolute Neuts (auto) 11.4 H (1.3-6.7) K/mm3 Absolute Nucleated RBC 0.000 (0.0-0.012) K/mm3 Nucleated RBC % 0.0 (0.0-0.2) % PT (11.1-14.7) Seconds INR APTT (22.3-36.8) Seconds Sodium 118 L* (137-145) mmol/L Potassium 4.5 (3.4-5.0) mmol/L Chloride 86 L (98-107) mmol/L Carbon Dioxide 24 (22-30) mmol/L Anion Gap 8 (4-12) mmol/L BUN 7 L (9-20) mg/dL Creatinine 0.82 (0.7-1.3) mg/dL Estim Creat Clear Calc 75 ml/min Estimated GFR > 60 (59 - ) Glucose 117 H (65-110) mg/dL Lactic Acid 0.8 (0.7-2.0) mmol/L Calcium 9.5 (8.4-10.2) mg/dL Total Bilirubin 0.6 (0.2-1.3) mg/dL AST 21 (17-59) U/L ALT 12 (6-50) U/L Alkaline Phosphatase 68 (38-126) U/L Total Protein 7.1 (6.3-8.2) g/dL Albumin 4.1 (3.5-5.1) g/dL Influenza A (RT-PCR) Negative (Negative) Influenza B (RT-PCR) Negative (Negative) RSV (RT-PCR) Negative (Negative) SARS-CoV-2 RNA (RT-PCR) Negative (Negative) Blood Type A Negative Antibody Screen Negative 09/18/25 Range/Units 11:22 WBC (4.5-10.0) K/mm3 RBC (4.6-6.20) M/mm3 Hgb (14.0-18.0) g/dL Hct (42.0-52.0) % MCV (80-100) fl MCH (26-34) pg MCHC (32-36) g/dl RDW (11.5-14.5) % Plt Count (150-375) k/mm3 MPV (7.4-10.4) fl Immature Gran % (Auto) (0-0.5) % Neut % (Auto) (45.5-73.1) % Lymph % (Auto) (18.3-44.2) % [place] % (Auto) (2.6-8.5) % Eos % (Auto) (0-4.4) % Baso % (Auto) (0.2-1.2) % Lymph # (Auto) (0.9-3.2) K/mm3 [place] # (Auto) (0.1-0.6) K/mm3 Eos # (Auto) (0-0.3) K/mm3 Baso # (Auto) (0.0-0.1) K/mm3 Abs Immat Gran (auto) (0.00-0.031) K/mm3 Absolute Neuts (auto) (1.3-6.7) K/mm3 Absolute Nucleated RBC (0.0-0.012) K/mm3 Nucleated RBC % (0.0-0.2) % PT 13.3 (11.1-14.7) Seconds INR 1.0 APTT 36.4 (22.3-36.8) Seconds Sodium (137-145) mmol/L Potassium (3.4-5.0) mmol/L Chloride (98-107) mmol/L Carbon Dioxide (22-30) mmol/L Anion Gap (4-12) mmol/L BUN (9-20) mg/dL Creatinine (0.7-1.3) mg/dL Estim Creat Clear Calc ml/min Estimated GFR (59 - ) Glucose (65-110) mg/dL Lactic Acid (0.7-2.0) mmol/L Calcium (8.4-10.2) mg/dL Total Bilirubin (0.2-1.3) mg/dL AST (17-59) U/L ALT (6-50) U/L Alkaline Phosphatase (38-126) U/L Total Protein (6.3-8.2) g/dL Albumin (3.5-5.1) g/dL Influenza A (RT-PCR) (Negative) Influenza B (RT-PCR) (Negative) RSV (RT-PCR) (Negative) SARS-CoV-2 RNA (RT-PCR) (Negative) Blood Type Antibody Screen Imaging Data Radiologist's impression: ITS Impressions Chest X-Ray 09/18/25 11:30 IMPRESSION: 1. Tiny focus airspace opacity right base. Chest/Abdomen/Pelvis CT 09/18/25 12:37 IMPRESSION: 1. Groundglass opacities in right lower lobe, consistent with mild pneumonia. 2. Small sliding hiatal hernia. 3. Wall thickening of the distal esophagus, likely esophagitis. Discharge Plan Discharge Clinical Impression: Hemoptysis, Acute hyponatremia Pneumonia Qualifiers: Pneumonia type: due to unspecified organism Laterality: right Lung location: lower lobe of lung Qualified Code(s): J18.9 - Pneumonia, unspecified organism Patient Disposition: Still a Patient Condition: Serious
[2025-09-18] MEDS: PANTOPRAZOLE SODIUM IV 40 MG VIAL 80 MG IV PUSH (12:37)
[2025-09-18] MEDS: LACTATED RINGERS 1,000 ML 999 ML IV CONT (12:37)
--- NOTE | 2025-09-18 13:32 | PM.IMHP2 ---
H&P: HPI History of Present Illness Date/Time: 09/18/25 13:32 Chief Complaint: Bloody Emesis, Shortness of Breath Narrative: 64 y/o M with PMH of recurrent hyponatremia due to psychogenic polydipsia associated with chronic hiccups, COPD, essential hypertension, blindness due to glaucoma, chronic hearing loss and multiple other comorbidities presents here with hematemesis and shortness of breath. The patient presents here from home on 09/18 for further evaluation of hematemesis, dizziness, and shortness of breath. The following HPI was obtained through the patient's report and the patient's daughter's report. The patient's daughter reports he has been generally unwell since he was evaluated in the emergency department on 09/12. Per chart review of this visit, the patient presented at that time with lightheadedness, nausea, vomiting, headache, near syncope. He has a long his standing history of recurrent hyponatremia related to psychogenic polydipsia due to his chronic hiccups. At that time he was concerned he have recurrent hyponatremia. Sodium at that time was 136. He was given fluids and Thorazine/Haldol for his hiccups. He was ultimately discharged home. Returning today due to development of nausea, vomiting, hematemesis, dry cough, and shortness of breath overnight last night. He reports other than the general malaise and increase in his chronic hiccups, he has had no new symptoms prior to last night. Upon arrival to the emergency department, patient was found to have triad bloody emesis to his chin. Denies any dark or tarry stools. He is on a daily aspirin. Not on anticoagulation. Additionally denies fever, chills, body aches, diarrhea, worsening abdominal pain (does have chronic pain secondary to hiccups) or chest pain. Daughter additionally reports that the patient seemed confused this morning, could not find the bathroom. However upon presentation he is A&O x4. Initial VS at presentation: 97.6? F, HR 85, R 19 156/68, and 100% on RA. ED workup showed: WBC 12.9, hemoglobin 9.5 (previously 2.3 on 09/12), normal coags, sodium 118 (previously 136 on 09/12), creatinine 0.82 and GFR >60, glucose 117, lactic 0.8, viral PCR negative. CXR showed tiny focus airspace opacity of the right base. CT of the chest/abdomen/pelvis showed ground-glass opacities in the right lower lobe consistent with mild pneumonia, small sliding hiatal hernia, wall thickening of the distal esophagus likely esophagitis. EKG showed sinus rhythm, rate 78. Review of Systems Review of Systems: All systems reviewed & are unremarkable except as noted in HPI and below PMFSH Past Medical History Medical History Ulcerative esophagitis Abnormal CT scan, esophagus Dysphagia Asthma-COPD overlap syndrome Wears hearing aid in both ears Adenomatous colon polyp Hiatal hernia Other osteonecrosis, left femur Other osteonecrosis, right femur Psychogenic polydipsia Erosive esophagitis Anemia of chronic disease Chronic hiccups Hyponatremia Tobacco abuse Normocytic anemia Glaucoma Legally blind. Hyperlipidemia Hypertension Surgical History Surgical History History of enucleation of eye Right, secondary to recurrent infection. Family History Family History Grandparent Acute myocardial infarction Mother Acute myocardial infarction Skin cancer Father Acute myocardial infarction Sibling Cancer Social History Social History Social History: Surrogate decision maker: Svitlana Hines, . Code status: Full code. Smoking packs per day: 1.5 Smoking cigarettes per day: 30.0 Years smoked: 50 Smoking pack-years: 75.00 Smoking status: Former smoker Tobacco type: cigarettes Second hand tobacco smoke exposure: No Smoking end date: 05/21/20 Alcohol intake: never Substance use: never Substance use type: does not use Lack of Transportation: No Lack of Food: Never True Current Housing: I Have Housing Concerned About Future Housing: No Difficulty Paying Gas/Electric Bills: No Difficulty Paying for Meds: No Currently Unemployed: No Education: Decline to Answer Difficulty w/ Childcare or Family Care: No Living arrangements: with family Additional living arrangements comments: The patient lives with his of 43 years in [place]. He and his had 4 children 1 of which at . His remaining children are healthy. 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 Spiritual care concerns: No Meds Home Medications and Allergies Home Medications ?Medication ?Instructions ?Recorded ?Confirmed ?Type losartan 50 mg tablet 50 mg PO DAILY 03/02/21 08/30/25 History montelukast 10 mg tablet 10 mg PO HS 03/02/21 08/30/25 History pravastatin 80 mg tablet 80 mg PO DAILY 03/02/21 08/30/25 History cholecalciferol (vitamin D3) 25 25 mcg PO DAILY 03/29/21 08/30/25 History mcg (1,000 unit) capsule (Vitamin D3) cyanocobalamin (vitamin B-12) 100 2,000 mcg PO DAILY 03/29/21 08/30/25 History mcg tablet dorzolamide 22.3 mg-timolol 6.8 1 drp LEFT EYE TID 06/29/24 08/30/25 History mg/mL eye drops budesonide-formoterol HFA 80 2 puff inhalation Q12H 12/26/24 08/30/25 History mcg-4.5 mcg/actuation aerosol inhaler gabapentin 300 mg capsule 300 mg PO DAILY 12/26/24 08/30/25 History aspirin 81 mg tablet,delayed 81 mg PO DAILY 03/25/25 08/30/25 History release (Adult Aspirin Regimen) famotidine 20 mg tablet 20 mg PO Q12HR #60 tabs 06/15/25 08/30/25 Rx chlorpromazine 25 mg tablet 25 mg PO Q6H PRN Hiccups #60 tabs 07/27/25 08/30/25 Rx metoclopramide HCl 10 mg tablet 10 mg PO Q6H PRN nausea and 08/27/25 08/30/25 Rx (Reglan) vomiting #14 tabs baclofen 10 mg tablet 10 mg PO Q12H Back pain 08/30/25 08/30/25 History pantoprazole 40 mg tablet,delayed 40 mg PO BID 1 month #60 tabs 09/09/25 Rx release (Protonix) sucralfate 100 mg/mL oral 1,000 mg (10 mL) PO ACHS #300 mL 09/09/25 Rx suspension Allergies Allergy/AdvReac Type Severity Reaction Status Date / Time No Known Allergies Allergy Verified 09/18/25 10:39 Vital Signs Vital Signs - 24 hr 09/18/25 10:24 09/18/25 12:53 Temperature 97.6 F Pulse Rate 85 86 Respiratory Rate 19 20 Blood Pressure 156/68 H 161/66 H Pulse Oximetry 100 100 Oxygen Delivery Room Air Exam Const: General: comfortable and no acute distress Other: , male, older appearing than stated age, chronically ill-appearing. Continuous hiccups present. 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 Resp: Other: No no respiratory distress. No tachypnea or accessory muscle use. Crackles in the right mid and lower lung. Left clear to auscultation. No wheezing. Cardio: Rate: regular rate Rhythm: regular rhythm Other: S1-S2 present without murmur, rub, ectopy GI: Other: Abdomen soft, nondistended, nontender. Normoactive bowel sounds in all quadrants. Skin: General skin exam: normal color and no rashes or lesions noted Wounds: no wounds Neuro: Speech: normal speech Motor exam (neuro): 5/5 motor strength present throughout Sensory Exam: normal sensation Other: A&O x4. Extrem: General: normal to inspection Psych: Mental Status: mental status grossly normal Affect: normal affect Other: Good to fair insight and judgment, pleasant Results Labs Labs: Short CBC 09/18/25 Range/Units 10:54 WBC 12.9 H (4.5-10.0) K/mm3 Hgb 9.5 L (14.0-18.0) g/dL Hct 28.2 L (42.0-52.0) % Plt Count 226 (150-375) k/mm3 [facility] 09/18/25 11:19 Sodium 118 L* Potassium 4.5 Chloride 86 L Carbon Dioxide 24 BUN 7 L Creatinine 0.82 Glucose 117 H Calcium 9.5 Liver Function 09/18/25 Range/Units 11:19 Total Bilirubin 0.6 (0.2-1.3) mg/dL AST 21 (17-59) U/L ALT 12 (6-50) U/L Alkaline Phosphatase 68 (38-126) U/L Albumin 4.1 (3.5-5.1) g/dL Quality VTE Prophylaxis VTE prophylaxis: mechanical ordered Assessment and Plan Assessment and plan (1) Upper GI bleed: Code(s): K92.2 - Gastrointestinal hemorrhage, unspecified Status: Acute Assessment and Plan: New onset nausea, vomiting, hematemesis on 09/18. Denies dark/tarry stools. Hemoccult negative in the ED on 09/18. He tried hematemesis upon arrival noted to the patient's chin. CT of the chest/abdomen/pelvis significant for a small sliding hiatal hernia and wall thickening of the distal esophagus likely esophagitis. Home medications reviewed, patient already on famotidine, pantoprazole, sucralfate. On a daily aspirin previously, no anticoagulation. Seen recently by GI inpatient on 08/31/2025. Noted to have severe ulcerative esophagitis on the EGD performed on 08/30, recommended to have PPI b.i.d., avoid NSAIDs, DC aspirin, and EGD in 4-5 months to assess healing. Plan Hgb 9.5 upon admission, previously 12.3 on 09/12. However has had increase in free water intake secondary to chronic hiccups w/associated hypoNa. Has had copious urine output in the emergency department. Hemoglobin may be dilutional from the free water intake. Plan for repeat H&H q6h. GI has been consulted. Plan to continue famotidine, pantoprazole b.i.d. IV, sucralfate. Confirm discontinuation of aspirin. Avoid NSAIDs. (2) Erosive esophagitis: Code(s): K22.10 - Ulcer of esophagus without bleeding Status: Acute Assessment and Plan: Previous Imaging EGD, 08/30/25: Reflux esophagitis, grade 4 present the distal esophagus Hiatal hernia found at the GE junction Mild gastritis seen in the antrum, gastritis had erythematous and edematous changes Bulb and 2nd portion of duodenum were normal with no ulcers or masses See plan above. (3) Acute hyponatremia: Code(s): E87.1 - Hypo-osmolality and hyponatremia Status: Acute Assessment and Plan: History of recurrent/chronic hyponatremia due to psychogenic polydipsia related to his chronic hiccups. Admission sodium 118 on 09/18. Previously 136 on 09/12/2025. - fluid restriction: 2L/daily - bmp Q4H - D5W at 75 mL/hr - monitor neurological status (4) Pneumonia: Qualifiers: Laterality: right Lung location: lower lobe of lung Pneumonia type: due to unspecified organism Qualified Code(s): J18.9 - Pneumonia, unspecified organism Code(s): J18.9 - Pneumonia, unspecified organism Status: Acute Assessment and Plan: Patient reporting shortness of breath and dry cough that is accompanied by generalized weakness and increased daytime sleepiness. CT of the chest/abdomen/pelvis from 09/18 showed ground-glass opacities in the right lower lobe consistent with mild pneumonia. Viral PCR negative on 09/18. - started on broad-spectrum antibiotics on 09/18. Ceftriaxone and azithromycin. - supportive care: Mucinex, Tessalon Perles, lozenge, Tylenol p.r.n. - VS reviewed from the emergency department, no hypoxia noted or hemodynamic instability. - blood cultures obtained on 09/18, patient did not however meets sepsis criteria. Leukocytosis only at 2.9. Lactic 0.8. - encourage IS (5) Psychogenic polydipsia: Code(s): R63.1 - Polydipsia; F54 - Psychological and behavioral factors associated with disorders or diseases classified elsewhere Status: Acute Assessment and Plan: The patient has history of chronic hiccups for which free water has previously helped with his symptoms. This has led to hyponatremia or currently. Per daughter he has been educated to drink electrolyte fluids to avoid hyponatremia, however the patient feels that when he drinks electrolyte solutions this tends to worsen his hiccups therefore he has not followed this recommendation. Has had worsening hiccups in the last couple days which has led to him having an increase in free water intake. Currently on a fluid restriction for recurrent hyponatremia. (6) Chronic hiccups: Code(s): R06.6 - Hiccough Status: Acute Assessment and Plan: - continue home medication: Thorazine, Gabapentin, and Baclofen (7) Hypertension: Qualifiers: Hypertension type: primary hypertension Qualified Code(s): I10 - Essential (primary) hypertension Code(s): I10 - Essential (primary) hypertension Status: Chronic Assessment and Plan: - chronic, currently 161/66, stable. - continue home medications - monitor (8) Hyperlipidemia: Qualifiers: Hyperlipidemia type: unspecified Qualified Code(s): E78.5 - Hyperlipidemia, unspecified Code(s): E78.5 - Hyperlipidemia, unspecified Status: Chronic Assessment and Plan: - continue home medication Plan Diet: Clear liquid GI Prophylaxis: Pantoprazole IV b.i.d. DVT Prophylaxis: SCDs IV fluids: 1L bolus -> D5W 75 mL/hour Lines/Tubes: pIV Code Status: Full code Prior Studies I have reviewed the following patient records and this information was taken into consideration when formulating the assessment and plan.: previous labs, previous ER visits, previous hospitalizations and previous clinic visits Time Spent with Patient Time with patient: less than 45 minutes Hospitalist MIPS Advance Care Plan I have confirmed that the patient's Advanced Care Plan is present, code status is documented, or surrogate decision maker is listed in patient medical record.: Yes Medication Reconciliation I have utilized all available resources to obtain, update and review the patients current medications (includes all prescriptions, OTC, herbals, cannabis, and nutritional supplements).: Yes
--- NOTE | 2025-09-18 13:34 | PC.NURSE ---
Unable to obtain blood cultures. Will have another nurse attempt. Antibiotic will be started after obtaining cultures
[2025-09-18] MEDS: cefTRIAXone 1 GM in SODIUM CHLORIDE 0.9% IV 50 ML 100 ML IVPB (14:06)
[2025-09-18] MEDS: AZITHROMYCIN IV 500 MG in SODIUM CHLORIDE 0.9% IV 250 ML IVPB (14:40)
[2025-09-18 15:10] LABS: Hematocrit 30.0 % (42.0-52.0); Hemoglobin 10.0 g/dL (14.0-18.0)
--- NOTE | 2025-09-18 15:17 | PC.NURSE ---
pharmacy called for dextrose 5% drip
[2025-09-18] MEDS: DEXTROSE 5% 1,000 ML 1,000 ML 75 ML IV CONT (15:43)
[2025-09-18] MEDS: guaiFENesin 12 HR 600 MG TABCR PO ×2 (15:43→21:11)
--- NOTE | 2025-09-18 16:50 | WPCEDHO ---
ED Hand Off Checklist All vitals saved:yes IV Site documented:yes All med administrations documented:yes Triage Note Triage Note pt to ED w/ complaints of 09/18/25 10:24 vomiting blood/dizziness this am. also reports he has been feeling sob for the past few days. daughter reports pt is blind and hard of hearing. denies any pain anywhere. pt is alert and oriented x4. Allergies No Known Allergies Allergy (Verified 09/18/25 10:39) Current Diagnoses Hyperlipidemia, unspecified (09/18/25) Hypo-osmolality and hyponatremia (09/18/25) Psychological and behavioral factors associated with disorders or diseases classified elsewhere (09/18/25) Essential (primary) hypertension (09/18/25) Pneumonia, unspecified organism (09/18/25) Ulcer of esophagus without bleeding (09/18/25) Gastrointestinal hemorrhage, unspecified (09/18/25) Hiccough (09/18/25) Polydipsia (09/18/25) Family History (Last Reviewed 09/18/25 @ 13:37 by Rochelle Ignacio APRN) Grandparent Acute myocardial infarction Mother Acute myocardial infarction Skin cancer Father Acute myocardial infarction Sibling Cancer Active Medications including assessments/comments Dextrose (Dextrose 5% 1,000 Ml) 1,000 mls @ 75 mls/hr IV CONT .[id number] [facility] Last Admin: 09/18/25 15:43 Dose: 75 mls/hr Documented By: [facility] Infusion/Titration Document 09/18/25 15:43 [facility] (Rec: 09/18/25 15:43 [facility] [id number]) Intake IV Site Peripheral Access Right Hand Container Volume 1,000 Waste Amount 0 Dosing Infusion Rate 75 Cumulative Dose Not Applicable Increase/Decrease Started Elapsed Time Elapsed Time ( 0m minutes) Administered/Completed Medications Discontinued Medications Guaifenesin (Guaifenesin 12 Hr 600 Mg Tabcr) 600 mg PO ONCE ONE Stop: 09/18/25 14:36 Last Admin: 09/18/25 15:43 Dose: 600 mg Documented By: [facility] Lactated Ringer's (Lr - Lactated Ringers Iv) 1,000 mls @ 999 mls/hr IV CONT .Q1H1M STA Stop: 09/18/25 13:05 Last Infusion: 09/18/25 13:35 Dose: Infused Documented By: [facility] Admin: 09/18/25 12:37 Dose: 999 mls/hr Documented By: JIM Ceftriaxone Sodium 1 gm/ (Sodium Chloride) 50 mls @ 100 mls/hr IVPB ONCE STA Stop: 09/18/25 13:19 Last Infusion: 09/18/25 14:37 Dose: Infused Documented By: [facility] Admin: 09/18/25 14:06 Dose: 100 mls/hr Documented By: JIM Azithromycin 500 mg/ Sodium (Chloride) 250 mls @ 250 mls/hr IVPB ONCE STA Stop: 09/18/25 13:49 Last Infusion: 09/18/25 15:48 Dose: Infused Documented By: [facility] Admin: 09/18/25 14:40 Dose: 250 mls/hr Documented By: PINKY Pantoprazole Sodium (Pantoprazole Sodium Iv 40 Mg Vial) 80 mg IV PUSH ONCE STA Stop: 09/18/25 12:06 Last Admin: 09/18/25 12:37 Dose: 80 mg Documented By: JIM Notes 09/18/25 15:17 Nurse Note by Nicolasa Bautista pharmacy called for dextrose 5% drip Initialized on 09/18/25 15:17 - END OF NOTE 09/18/25 13:34 Nurse Note by Nicolasa Bautista Unable to obtain blood cultures. Will have another nurse attempt. Antibiotic will be started after obtaining cultures Initialized on 09/18/25 13:34 - END OF NOTE Interventions/Assessments IV / Saline Lock, Insert Start: 09/18/25 10:16 Freq: Status: Active Protocol: Document 09/18/25 14:06 JIM (Rec: 09/18/25 14:06 JIM [id number]) IV Assessment Peripheral Access Left Antecubital IV Catheter Access Initiated IV Insertion Date 09/18/25 IV Insertion Time 14:06 Catheter Gauge 20 Ultrasound Used for No Placement IV Site Assessment WNL IV Care and WNL Maintenance Last Vital Signs Temperature 97.6 F 09/18/25 10:24 Pulse Rate 82 09/18/25 15:02 Respiratory Rate 20 09/18/25 15:02 Pulse Oximetry 100 09/18/25 15:02 Blood Pressure 144/63 H 09/18/25 15:02 Blood Pressure Mean 90 09/18/25 15:02 Oxygen Delivery Room Air 09/18/25 10:24 Weight 68 kg 12/30/25 10:24 Last Result - Abnormals Only WBC 12.9 K/mm3 (4.5-10.0) H 09/18/25 10:54 RBC 3.31 M/mm3 (4.6-6.20) L 09/18/25 10:54 Hgb 10.0 g/dL (14.0-18.0) L 09/18/25 15:00 Hct 30.0 % (42.0-52.0) L 09/18/25 15:00 MPV 11.2 fl (7.4-10.4) H 09/18/25 10:54 Neut % (Auto) 88.1 % (45.5-73.1) H 09/18/25 10:54 Lymph % (Auto) 6.0 % (18.3-44.2) L 09/18/25 10:54 Lymph # (Auto) 0.77 K/mm3 (0.9-3.2) L 09/18/25 10:54 Abs Immat Gran (auto) 0.05 K/mm3 (0.00-0.031) H 09/18/25 10:54 Absolute Neuts (auto) 11.4 K/mm3 (1.3-6.7) H 09/18/25 10:54 Sodium 118 mmol/L (137-145) L* 09/18/25 11:19 Chloride 86 mmol/L (98-107) L 09/18/25 11:19 BUN 7 mg/dL (9-20) L 09/18/25 11:19 Glucose 117 mg/dL (65-110) H 09/18/25 11:19 Most Recent Suicide Severity Rating Suicide Severity Rating NO RISK INDICATED 09/18/25 10:24
--- NOTE | 2025-09-18 16:50 | PC.NURSE ---
Patient refusing external catheter. Patient using urinal
--- NOTE | 2025-09-18 18:12 | ADMGEN ---
This patient, Mark Hines, was admitted to IMU Room 212-01. Patient/family oriented to hospital policies and general routines including ID bracelet, bed and alarms, visiting hours, pain management, procedures, bathroom and other care routines, personal items, smoking policy, room service/diet, and visiting hours. Information on how to activate the Rapid Response Team has been discussed. Patient/Family are encouraged to report perceived risks to care and to ask questions if they do not understand what they are told or what they should do.
[2025-09-18] MEDS: SUCRALFATE SUSP 100 MG/ML 10 ML UDC 1000 MG PO ×2 (18:15→21:11)
[2025-09-18 20:20] LABS: Hematocrit 29.2 % (42.0-52.0); Hemoglobin 9.6 g/dL (14.0-18.0)
[2025-09-18 20:33] LABS: Anion Gap 6 mmol/L (4-12); Blood Urea Nitrogen 5 mg/dL (9-20); Calcium 9.6 mg/dL (8.4-10.2); Carbon Dioxide 27 mmol/L (22-30); Chloride 97 mmol/L (98-107); Estimated CRCL calculation 78 ml/min; Estimated Glomerular Filt Rate > 60; Glucose 118 mg/dL (65-110); Potassium 4.5 mmol/L (3.4-5.0); Sodium 130 mmol/L (137-145)
[2025-09-18] MEDS: FAMOTIDINE 20 MG TABLET PO (21:11)
[2025-09-18] MEDS: GABAPENTIN 300 MG CAPSULE PO (23:35)
[2025-09-18] MEDS: MONTELUKAST SODIUM 10 MG TABLET PO (23:35)
[2025-09-18] MEDS: DORZOLAMIDE/TIMOLOL OPHTH SOL 10 ML BOTTLE 1 DROP LEFT EYE (23:35)
[2025-09-18] MEDS: BACLOFEN 10 MG TABLET PO (23:35)
[2025-09-18] MEDS: DOXYCYCLINE IV 100 MG in SODIUM CHLORIDE 0.9% IV 100 ML IVPB (23:35)
[2025-09-18] MEDS: prednisoLONE ACETATE 1% OPHTH 5 ML 1 DROP LEFT EYE (23:36)
[2025-09-19] VITALS (9 sets, daily range): BP systolic 134–146; BP diastolic 59–68; PULSE 66–76; RESP 16; TEMP 36.8–37; O2SAT 99–100
[2025-09-19 01:21] LABS: Hematocrit 31.1 % (42.0-52.0); Hemoglobin 10.3 g/dL (14.0-18.0)
[2025-09-19 01:34] LABS: Anion Gap 8 mmol/L (4-12); Blood Urea Nitrogen 5 mg/dL (9-20); Calcium 9.7 mg/dL (8.4-10.2); Carbon Dioxide 24 mmol/L (22-30); Chloride 98 mmol/L (98-107); Estimated CRCL calculation 76 ml/min; Estimated Glomerular Filt Rate > 60; Glucose 116 mg/dL (65-110); Potassium 4.5 mmol/L (3.4-5.0); Sodium 130 mmol/L (137-145)
[2025-09-19 04:49] LABS: Hematocrit 30.5 % (42.0-52.0); Hemoglobin 10.1 g/dL (14.0-18.0); Immature Granulocyte Percent A 0.3 % (0-0.5); Lymphocytes Absolute Auto 1.06 K/mm3 (0.9-3.2); Mean Corpuscular HGB Conc 33.1 g/dl (32-36); Mean Corpuscular Hemoglobin 28.9 pg (26-34); Mean Corpuscular Volume 87.1 fl (80-100); Nucleated Red Blood Cells Absolute Auto 0.000 K/mm3 (0.0-0.012); Nucleated Red Blood Cells Perc 0.0 % (0.0-0.2); Platelet Count Result 252 k/mm3 (150-375); Red Blood Count 3.50 M/mm3 (4.6-6.20); White Blood Count 5.8 K/mm3 (4.5-10.0)
[2025-09-19 05:02] LABS: Anion Gap 6 mmol/L (4-12); Blood Urea Nitrogen 5 mg/dL (9-20); Calcium 9.8 mg/dL (8.4-10.2); Carbon Dioxide 29 mmol/L (22-30); Chloride 99 mmol/L (98-107); Estimated CRCL calculation 66 ml/min; Estimated Glomerular Filt Rate > 60; Glucose 118 mg/dL (65-110); Sodium 134 mmol/L (137-145)
[2025-09-19 05:10] LABS: Potassium 4.4 mmol/L (3.4-5.0)
[2025-09-19] MEDS: DEXTROSE 5% 1,000 ML 1,000 ML 75 ML IV CONT (05:43)
[2025-09-19] MEDS: GABAPENTIN 300 MG CAPSULE PO ×2 (06:11→16:08)
[2025-09-19] MEDS: prednisoLONE ACETATE 1% OPHTH 5 ML 1 DROP LEFT EYE (06:11)
[2025-09-19] MEDS: SUCRALFATE SUSP 100 MG/ML 10 ML UDC 1000 MG PO ×3 (06:11→16:08)
[2025-09-19] MEDS: DORZOLAMIDE/TIMOLOL OPHTH SOL 10 ML BOTTLE 1 DROP LEFT EYE (06:11)
[2025-09-19] MEDS: FLUTICASONE/SALMETEROL 45-21 MCG INHALER 1 PUFF 2 PUFF INHALATION (08:07)
[2025-09-19] MEDS: cefTRIAXone 1 GM in SODIUM CHLORIDE 0.9% IV 50 ML 100 ML IVPB (09:08)
[2025-09-19] MEDS: PANTOPRAZOLE SODIUM IV 40 MG VIAL IV PUSH (09:09)
[2025-09-19] MEDS: PRAVASTATIN SODIUM 20 MG TABLET 80 MG PO (09:10)
[2025-09-19] MEDS: FAMOTIDINE 20 MG TABLET PO (09:11)
[2025-09-19] MEDS: LOSARTAN POTASSIUM 50 MG TABLET PO (09:11)
[2025-09-19] MEDS: CYANOCOBALAMIN 1,000 MCG TABLET 1000 MCG PO (09:11)
[2025-09-19] MEDS: BACLOFEN 10 MG TABLET PO (09:11)
[2025-09-19] MEDS: guaiFENesin 12 HR 600 MG TABCR PO (09:12)
[2025-09-19] MEDS: CHOLECALCIFEROL (VITAMIN D3) 25 MCG (1,000 UNITS) TABLET PO (09:12)
--- NOTE | 2025-09-19 10:41 | WPDGICN ---
Assessment and Plan Assessment and plan (1) Erosive esophagitis: Code(s): K22.10 - Ulcer of esophagus without bleeding Status: Acute (2) Coffee ground emesis: Code(s): K92.0 - Hematemesis Status: Acute (3) Anemia: Code(s): D64.9 - Anemia, unspecified Status: Acute (4) Pneumonia: Qualifiers: Laterality: right Lung location: lower lobe of lung Pneumonia type: due to unspecified organism Qualified Code(s): J18.9 - Pneumonia, unspecified organism Code(s): J18.9 - Pneumonia, unspecified organism Status: Acute (5) Hiccup: Code(s): R06.6 - Hiccough Status: Acute (6) Psychogenic polydipsia: Code(s): R63.1 - Polydipsia; F54 - Psychological and behavioral factors associated with disorders or diseases classified elsewhere Status: Acute (7) Acute hyponatremia: Code(s): E87.1 - Hypo-osmolality and hyponatremia Status: Acute Plan 1. GERD with Erosive Esophagitis / Nausea and Vomiting/Hematemesis/Chronic Anemia: GI consult for hematemesis concern for upper GI bleed. He had EGD on 08/30/2025 showed grade 4 reflux esophagitis, chronic linear ulcers, fibrosis, active inflammation, 2 cm hiatal hernia, and mild gastritis and was discharged on pantoprazole 40 mg b.i.d. and sucralfate, which he states he has been taking.. He presented with vomiting coffee-ground like material over several days but states to me today that he has had no further vomiting. He has not vomited in a couple of days and denies nausea, odynophagia, dysphagia, or abdominal pain. His hemoglobin dropped to 9.5 and is stable at 10, and appears this is his baseline and this is what his last hemoglobins have been dating back several months. CT with no acute GI process. He is being treated for pneumonia and hyponatremia, sodium was 118 on admission but has since improved. Wondering if the nausea and vomiting is secondary to hyponatremia which certainly could be exacerbating his erosive esophagitis. - Continue pantoprazole 40 mg IV twice daily. Switch to PO at discharge - Avoid all NSAIDs - No need to repeat EGD at this time as is no signs of active bleeding, will reconsider if this occurs monitor for any active GI bleeding. - Plan to do an EGD in 4-5 months to assess for healing of erosive esophagitis. - Monitor H&H - Monitor electrolytes, this could contribute to his nausea/vomiting. - Anti-emetics PRN, consider Reglan - Follow up with Socorro in the office on 10/22/2025. Total time spent 45 minutes including chart review, a 20-min face to face visit with patient and updating her medical records. Thank you very much for allowing me to share in the care of this very nice patient. This report may have been done utilizing a voice recognition system. Attempts have been made to correct errors. However, there may be uncorrected grammatical, spelling, and recognition errors present. GI Consult Note Consult date/time: 09/19/25 0900 Reason for consult: upper GI bleed. 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 He is blind bilaterally. He presented to the ER room with complaints of hematemesis, generalized weakness and shortness of breath. GI consulted for vomiting coffee-ground like material. He states couple of episodes of emesis with coffee-like brown material, and denies coughing. He reports he has not had any emesis for the last couple of days and none since he has been here. He has been having persistent hiccups, which is not new. Has been increasing water. He takes pantoprazole 40 mg twice daily and has also been taking sucralfate at home. He denies any dysphagia, odynophagia, abdominal pain with eating, black stools, or bloody stools. He denies any use of aspirin, ibuprofen, Motrin, Aleve, or Advil. He was seen by our service on 08/30/2025 for nausea, vomiting, and an abnormal CT scan which showed circumferential wall thickening of the distal esophagus. He has a past medical history of grade 4 reflux esophagitis in the distal esophagus with chronic linear ulcers, fibrosis, and active inflammation, a 2 cm hiatal hernia, and mild gastritis. He is currently being treated for pneumonia with antibiotics. Hemoccult was negative in ER. Hemoglobin upon admission was 9.5 previously 12.3 on 09/12. He had been having increased free water intake hemoglobin could be dilutional. ENDOSCOPY HISTORY: EGD: 08/30/2025 (Dr. Staley) for nausea, vomiting, and abnormal CT scan showing circumferential wall thickening of the distal esophagus. Findings included grade 4 reflux esophagitis in the distal esophagus with chronic linear ulcers, fibrosis, and active inflammation that was friable, a 2 cm hiatal hernia, and mild gastritis. Biopsies showed fibropurulent exudate consistent with acute ulceration, with no fungal organisms or yeast forms present. Stomach biopsies showed chronic nonspecific gastritis without H. pylori. Repeat EGD was recommended in 4-5 months to assess for healing. IMAGING: CT chest abdomen pelvis with contrast 09/18/2025 Impression: Groundglass opacities in the right lower lobe, consistent with mild pneumonia. Small sliding hiatal hernia. Wall thickening of the distal esophagus, likely esophagitis. Review of Systems Constitutional: Constitutional: Denies headache(s) and Reports weakness Eyes: Eyes: Denies blurry vision ENT: Reports Normal hearing present, Denies headache(s) and Denies neck pain Cardiovascular: Cardiovascular: Denies chest pain and Denies dyspnea Respiratory: Respiratory: Denies dyspnea Gastrointestinal: Gastrointestinal: Reports as per HPI Genitourinary: Genitourinary: Denies dysuria Musculoskeletal: Musculoskeletal: Denies neck pain Integumentary/Breasts: Skin/Breast: Denies dry skin Neurologic: Reports Normal hearing present, Denies headache(s) and Denies weakness Psychiatric: Psychiatric: Denies anxiety Endocrine: Endocrine: Denies change in body appearance Hematologic/Lymphatic: Hematologic/Lymphatic: Denies easy bleeding Allergic/Immunologic: Allergic/Immunologic: Denies urticaria PMFSH Past Medical History Medical History Ulcerative esophagitis Abnormal CT scan, esophagus Dysphagia Asthma-COPD overlap syndrome Wears hearing aid in both ears Adenomatous colon polyp Hiatal hernia Other osteonecrosis, left femur Other osteonecrosis, right femur Psychogenic polydipsia Erosive esophagitis Anemia of chronic disease Chronic hiccups Hyponatremia Tobacco abuse Normocytic anemia Glaucoma Legally blind. Hyperlipidemia Hypertension Surgical History Surgical History History of enucleation of eye Right, secondary to recurrent infection. Family History Family History Grandparent Acute myocardial infarction Mother Acute myocardial infarction Skin cancer Father Acute myocardial infarction Sibling Cancer Social History Social History Social History: Surrogate decision maker: Svitlana Hines, . Code status: Full code. Smoking packs per day: 1 Smoking cigarettes per day: 20.0 Years smoked: 50 Smoking pack-years: 50.00 Smoking status: Former smoker Tobacco type: cigarettes Second hand tobacco smoke exposure: No Smoking end date: 05/21/20 Alcohol intake: former Substance use: never Substance use type: does not use Lack of Transportation: No Lack of Food: Never True Current Housing: I Have Housing Concerned About Future Housing: No Difficulty Paying Gas/Electric Bills: No Difficulty Paying for Meds: No Currently Unemployed: No Education: High School Diploma/GED Difficulty w/ Childcare or Family Care: No Living arrangements: with family Additional living arrangements comments: The patient lives with his of 43 years in [place]. He and his had 4 children 1 of which at . His remaining children are healthy. 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 Spiritual care concerns: No Meds Home Medications and Allergies Home Medications ?Medication ?Instructions ?Recorded ?Confirmed ?Type losartan 50 mg tablet 50 mg PO DAILY 03/02/21 09/18/25 History montelukast 10 mg tablet 10 mg PO HS 03/02/21 09/18/25 History pravastatin 80 mg tablet 80 mg PO DAILY 03/02/21 09/18/25 History cholecalciferol (vitamin D3) 25 25 mcg PO DAILY 03/29/21 09/18/25 History mcg (1,000 unit) capsule (Vitamin D3) cyanocobalamin (vitamin B-12) 100 1,000 mcg PO DAILY 03/29/21 09/18/25 History mcg tablet dorzolamide 22.3 mg-timolol 6.8 1 drp LEFT EYE TID 06/29/24 09/18/25 History mg/mL eye drops budesonide-formoterol HFA 80 2 puff inhalation Q12H 12/26/24 09/18/25 History mcg-4.5 mcg/actuation aerosol inhaler gabapentin 300 mg capsule 300 mg PO TID 12/26/24 09/18/25 History aspirin 81 mg tablet,delayed 81 mg PO DAILY 03/25/25 09/18/25 History release (Adult Aspirin Regimen) famotidine 20 mg tablet 20 mg PO Q12HR #60 tabs 06/15/25 09/18/25 Rx chlorpromazine 25 mg tablet 25 mg PO Q6H PRN Hiccups #60 tabs 07/27/25 09/18/25 Rx metoclopramide HCl 10 mg tablet 10 mg PO Q6H PRN nausea and 08/27/25 09/18/25 Rx (Reglan) vomiting #14 tabs baclofen 10 mg tablet 10 mg PO Q12H Back pain 08/30/25 09/18/25 History sucralfate 100 mg/mL oral 1,000 mg (10 mL) PO ACHS #300 mL 09/09/25 09/18/25 Rx suspension pantoprazole 40 mg tablet,delayed 40 mg PO Q12H 09/18/25 09/18/25 History release (Protonix) prednisolone acetate 1 % eye 1 drp LEFT EYE TID 09/18/25 09/18/25 History drops,suspension Allergies Allergy/AdvReac Type Severity Reaction Status Date / Time No Known Allergies Allergy Verified 09/18/25 17:54 Vital Signs Vital Signs - 24 hr 09/18/25 12:53 09/18/25 15:02 09/18/25 17:30 Temperature Pulse Rate 86 82 Respiratory Rate 20 20 Blood Pressure 161/66 H 144/63 H Pulse Oximetry 100 100 Oxygen Delivery Room Air 09/18/25 18:00 09/18/25 20:00 09/18/25 20:40 Temperature 98.3 F Pulse Rate 74 78 77 Respiratory Rate 16 Blood Pressure 144/56 H Pulse Oximetry 100 Oxygen Delivery 09/18/25 22:00 09/18/25 23:28 09/19/25 00:00 Temperature 98.2 F Pulse Rate 74 77 76 Respiratory Rate 18 Blood Pressure 128/48 L Pulse Oximetry 98 Oxygen Delivery 09/19/25 02:00 09/19/25 03:13 09/19/25 04:00 Temperature 98.6 F Pulse Rate 70 66 68 Respiratory Rate 16 Blood Pressure 146/59 H Pulse Oximetry 100 Oxygen Delivery 09/19/25 06:00 09/19/25 08:00 Temperature 98.2 F Pulse Rate 69 66 Respiratory Rate 16 Blood Pressure 146/68 H Pulse Oximetry 99 Oxygen Delivery Exam Const: General: comfortable and no acute distress Other: has chronic hiccups noted on exam Eyes: Other: patient is blind in bilateral eyes Neck: Neck: no JVD Resp: Auscultation: crackles on the right Cardio: Rate: regular rate Rhythm: regular rhythm GI: Inspection: non-distended Skin: General skin exam: normal color Neuro: Speech: normal speech Extrem: General: normal to inspection Psych: Mental Status: mental status grossly normal Results Labs 09/19/25 04:32 09/19/25 04:32 Labs: Short CBC 09/18/25 09/18/25 09/18/25 Range/Units 10:54 15:00 20:14 WBC 12.9 H (4.5-10.0) K/mm3 Hgb 9.5 L 10.0 L 9.6 L (14.0-18.0) g/dL Hct 28.2 L 30.0 L 29.2 L (42.0-52.0) % Plt Count 226 (150-375) k/mm3 09/19/25 09/19/25 Range/Units 01:17 04:32 WBC 5.8 (4.5-10.0) K/mm3 Hgb 10.3 L 10.1 L (14.0-18.0) g/dL Hct 31.1 L 30.5 L (42.0-52.0) % Plt Count 252 (150-375) k/mm3 BMP 09/18/25 09/18/25 09/19/25 11:19 20:14 01:17 Sodium 118 L* 130 L 130 L Potassium 4.5 4.5 4.5 Chloride 86 L 97 L 98 Carbon Dioxide 24 27 24 BUN 7 L 5 L 5 L Creatinine 0.82 0.79 0.81 Glucose 117 H 118 H 116 H Calcium 9.5 9.6 9.7 09/19/25 04:32 Sodium 134 L Potassium 4.4 Chloride 99 Carbon Dioxide 29 BUN 5 L Creatinine 0.94 Glucose 118 H Calcium 9.8 Liver Function 09/18/25 Range/Units 11:19 Total Bilirubin 0.6 (0.2-1.3) mg/dL AST 21 (17-59) U/L ALT 12 (6-50) U/L Alkaline Phosphatase 68 (38-126) U/L Albumin 4.1 (3.5-5.1) g/dL
[2025-09-19 10:43] LABS: Hematocrit 32.6 % (42.0-52.0); Hemoglobin 10.4 g/dL (14.0-18.0)
[2025-09-19] MEDS: DOXYCYCLINE IV 100 MG in SODIUM CHLORIDE 0.9% IV 100 ML IVPB (12:12)
--- NOTE | 2025-09-19 15:34 | P.DS_ITS ---
DS: Admitting Diagnosis Discharge Date 09/19/2025 Admitting Diagnosis GI bleed/erosive esophagitis/hyponatremia/chronic hiccups/pneumonia DS: Discharge Diagnosis Discharge Diagnosis (1) Upper GI bleed: Code(s): K92.2 - Gastrointestinal hemorrhage, unspecified Status: Acute (2) Erosive esophagitis: Code(s): K22.10 - Ulcer of esophagus without bleeding Status: Acute (3) Acute hyponatremia: Code(s): E87.1 - Hypo-osmolality and hyponatremia Status: Acute (4) Pneumonia: Qualifiers: Laterality: right Lung location: lower lobe of lung Pneumonia type: due to unspecified organism Qualified Code(s): J18.9 - Pneumonia, unspecified organism Code(s): J18.9 - Pneumonia, unspecified organism Status: Acute (5) Psychogenic polydipsia: Code(s): R63.1 - Polydipsia; F54 - Psychological and behavioral factors associated with disorders or diseases classified elsewhere Status: Acute (6) Chronic hiccups: Code(s): R06.6 - Hiccough Status: Acute (7) Hypertension: Qualifiers: Hypertension type: primary hypertension Qualified Code(s): I10 - Essent ial (primary) hypertension Code(s): I10 - Essential (primary) hypertension Status: Chronic (8) Hyperlipidemia: Qualifiers: Hyperlipidemia type: unspecified Qualified Code(s): E78.5 - Hyperlipidemia, unspecified Code(s): E78.5 - Hyperlipidemia, unspecified Status: Chronic DS: Summary Hospital Course Reason for hospitalization: * Upper GI bleed secondary to severe erosive esophagitis * Erosive esophagitis with hiatal hernia * Acute hyponatremia due to psychogenic polydipsia * Right lower lobe pneumonia * Chronic hiccups * Anemia of chronic disease * Essential hypertension * Hyperlipidemia Hospital Course: Hospital Course The patient is a 64-year-old male with significant past medical history including severe erosive esophagitis, chronic hiccups with psychogenic polydipsia, recurrent hyponatremia, COPD/asthma overlap, and chronic anemia who presented with hematemesis, shortness of breath, dizziness, and generalized weakness. Initial evaluation revealed hemoglobin of 9.5 (down from 12.3 on 09/12) and sodium of 118. CT chest/abdomen/pelvis demonstrated right lower lobe ground- glass opacities consistent with mild pneumonia, a small sliding hiatal hernia, and distal esophageal wall thickening consistent with esophagitis. GI was consulted given concern for upper GI bleeding. Given recent EGD on 08/30/2025 showing grade 4 erosive esophagitis with chronic linear ulcers and no evidence of ongoing bleeding, repeat endoscopy was deferred. Hemoglobin remained stable without evidence of ongoing bleeding. Hyponatremia improved appropriately with fluid restriction and D5W infusion. Pneumonia was treated with IV ceftriaxone and azithromycin, later transitioned to doxycycline due to QtC The patient remained hemodynamically stable, tolerated diet advanc ement, and had no further episodes of emesis. Patient was discharged to home and advised to follow-up with GI for F/U EGD in 6-8 weeks. Status at Discharge Functional status at discharge: independent ambulation Overall status at discharge: patient is progressing back to baseline Time Spent with Patient Time attestation: Total time spent providing and/or coordinating discharge services: Time spent: Greater than 30 minutes Exam Const: General: comfortable and no acute distress Other: , male, older appearing than stated age, chronically ill-appearing. Continuous hiccups present. 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 Resp: Other: No no respiratory distress. No tachypnea or accessory muscle use. Crackles in the right mid and lower lung. Left clear to auscultation. No wheezing. Cardio: Rate: regular rate Rhythm: regular rhythm Other: S1-S2 present without murmur, rub, ectopy GI: Other: Abdomen soft, nondistended, nontender. Normoactive bowel sounds in all quadrants. Skin: General skin exam: normal color and no rashes or lesions noted Wounds: no wounds Neuro: Speech: normal speech Motor exam (neuro): 5/5 motor strength present throughout Sensory Exam: normal sensation Other: A&O x4. Extrem: General: normal to inspection Psych: Mental Status: mental status grossly normal Affect: normal affect Other: Good to fair insight and judgment, pleasant DS: Data Data Completed and Pending Labs on day of discharge: Labs from last 24 hours 09/19/25 09/19/25 09/19/25 10:29 04:32 01:17 WBC 5.8 RBC 3.50 L Hgb 10.4 L 10.1 L 10.3 L Hct 32.6 L 30.5 L 31.1 L MCV 87.1 MCH 28.9 MCHC 33.1 RDW 14.5 Plt Count 252 MPV 11.2 H Immature Gran % (Auto) 0.3 Neut % (Auto) 73.9 H Lymph % (Auto) 18.2 L Marshall % (Auto) 6.4 Eos % (Auto) 0.7 Baso % (Auto) 0.5 Lymph # (Auto) 1.06 Marshall # (Auto) 0.4 Eos # (Auto) 0.0 Baso # (Auto) 0.0 Abs Immat Gran (auto) 0.02 Absolute Neuts (auto) 4.3 Absolute Nucleated RBC 0.000 Nucleated RBC % 0.0 Sodium 134 L 130 L Potassium 4.4 4.5 Chloride 99 98 Carbon Dioxide 29 24 Anion Gap 6 8 BUN 5 L 5 L Creatinine 0.94 0.81 Estim Creat Clear Calc 66 76 Estimated GFR > 60 > 60 Glucose 118 H 116 H Calcium 9.8 9.7 09/18/25 20:14 WBC RBC Hgb 9.6 L Hct 29.2 L MCV MCH MCHC RDW Plt Count MPV Immature Gran % (Auto) Neut % (Auto) Lymph % (Auto) Marshall % (Auto) Eos % (Auto) Baso % (Auto) Lymph # (Auto) Marshall # (Auto) Eos # (Auto) Baso # (Auto) Abs Immat Gran (auto) Absolute Neuts (auto) Absolute Nucleated RBC Nucleated RBC % Sodium 130 L Potassium 4.5 Chloride 97 L Carbon Dioxide 27 Anion Gap 6 BUN 5 L Creatinine 0.79 Estim Creat Clear Calc 78 Estimated GFR > 60 Glucose 118 H Calcium 9.6 Imaging Radiologist's impression: Examination: XR chest 2V Clinical History: SOB; THROWING UP BLOOD SINCE THIS MORNING Comparison: CTA chest 08/29/2025 Technique: PA and Lateral Findings: Cardiomediastinal silhouette normal size and configuration. Small patchy opacity right base. Discoid atelectasis left base. Mediastinal calcification. No acute bony abnormality. IMPRESSION: 1. Tiny focus airspace opacity right base. EXAMINATION: CT chest abdomen pelvis w con DATE: 09/18/2025 12:34 INDICATION: Shortness of breath. Hemoptysis. TECHNIQUE: Computed tomography (CT) of the chest, abdomen, and pelvis was performed with 100 mL Omnipaque 350 intravenous contrast. Automated exposure control and iterative reconstruction technique were employed. The dose-length product was 471.06 mGy-cm. COMPARISON: Head CT 08/29/2025 FINDINGS: CHEST CT: There are groundglass opacities in right lower lobe. There is mild atelectasis bilaterally. Calcified left lung nodules and calcified left hilar and mediastinal lymph nodes are consistent with old granulomatous disease. There is left-sided pleural thickening with peripheral calcifications. The heart size is normal. There is a trace pericardial effusion. There is wall thickening of the distal esophagus. There is a small sliding hiatal hernia. There is severe cervical spondylosis. There are bridging endplate osteophytes at multiple levels in the thoracic spine, consistent with diffuse idiopathic skeletal hyperostosis (DISH). There is mild chronic anterior wedging of multiple thoracic vertebral bodies. ABDOMEN/PELVIS CT: There are cysts in the liver measuring up to 11 mm. Calcifications in the spleen are consistent with old granulomatous disease. The gallbladder, pancreas, and adrenal glands are normal. There are cysts in the kidneys measuring up to 2.9 cm on the right. The bladder is distended. There is diverticulosis of the colon without evidence of diverticulitis. There are no dilated loops of bowel. The appendix is not visualized. There are no pathologically enlarged lymph nodes. There is no free intraperitoneal fluid. There is osteonecrosis of the femoral heads. There is severe lumbar spondylosis. IMPRESSION: 1. Groundglass opacities in right lower lobe, consistent with mild pneumonia. 2. Small sliding hiatal hernia. 3. Wall thickening of the distal esophagus, likely esophagitis. Discharge Plan Discharge Attending physician on discharge: Barb Eaton Consulting providers: Sayra Mancia; Rochelle Ignacio; Cas Leon; Mika Lopez; Giuseppe Michel; Dale Salcedo V. Discharging Clinician: Barb Eaton Anticipated Discharge Date/Time: 09/19/25 15:26 Patient Disposition: Home Activity: as tolerated Diet: as tolerated and regular Discharge Instructions: 1). Hyponatremia * Recommend fluid restriction 1.5ML of fluids per day * Follow-up with primary care for close monitoring of sodium levels outpatient 2). Intractable hiccups * I have prescribed Thorazine take up to 4 times daily as needed 3). Erosive gastritis * I have prescribed pantoprazole 40 mg twice a day * Will need to call GI for follow-up to schedule outpatient EGD in 4-6 weeks * Follow up with [place] in the office on 10/22/2025. * Avoid spicy or food that can irritate the GI tract 4). Pneumonia * There was some mild concern lower lobe pneumonia * I have prescribed oral Augmentin x4 more days take as prescribed incomplete even if feeling better How can you care for yourself at home? ? Keep track of any new symptoms or changes in your symptoms. ? Rest until you feel better. ? Be safe with medicines. Take your medicines exactly as prescribed. Call your doctor if you think you are having a problem with your medicine. ? Do not drive after taking a prescription pain medicine. ? Ensure to follow-up with primary care physician as indicated and provide updated medication list provided to you at discharge. When should you call for help? Call 911 anytime you think you may need emergency care. For example, call if: ? You passed out (lost consciousness). Call your doctor now or seek immediate medical care if: ? You have new symptoms like fever, difficulty breathing, Chest pain, vomiting, or rash. ? You have new or different pain. ? You are confused and are having trouble thinking clearly. ? Your symptoms are getting worse. Watch closely for changes in your health, and be sure to contact your doctor if: ? You do not get better as expected. Patient Instructions: Antibiotic Form, Gastritis (DC), Hiccups (DC), Community Acquired Pneumonia (DC), Community Acquired Pneumonia (GEN) Patient Language: Frisian Stand Alone Forms: General Discharge Information Follow-up/Referrals: Maureen Cox APRN [Advanced Practice Nurse, Gastroenterology] - 10/22/25 Edouard Salamanca MD [Physician, Gastroenterology] Celine,TRAVIS Lawler [Primary Care Provider, Unknown] - 3 Weeks Discharge Medications: New amoxicillin-pot clavulanate 875-125 mg tablet 1 tablet PO Q12H Qty: 8 0RF Continued losartan 50 mg tablet 50 mg PO DAILY pravastatin 80 mg tablet 80 mg PO DAILY montelukast 10 mg tablet 10 mg PO HS dorzolamide-timolol 22.3-6.8 mg/mL drops 1 drp LEFT EYE TID gabapentin 300 mg capsule 300 mg PO TID Patient Comments: Pt stated he takes it TID budesonide-formoterol 80-4.5 mcg/actuation HFA aerosol inhaler 2 puff INHALATION Q12H metoclopramide HCl [Reglan] 10 mg tablet 10 mg PO Q6H PRN (Reason: nausea and vomiting) Qty: 14 0RF prednisolone acetate 1 % drops,suspension 1 drp LEFT EYE TID sucralfate 100 mg/mL suspension 1,000 mg PO ACHS Qty: 300 3RF chlorpromazine 25 mg Tablet 25 mg PO Q6H PRN (Reason: Hiccups) Qty: 60 0RF cyanocobalamin (vitamin B-12) 100 mcg Tablet 1,000 mcg PO DAILY Patient Comments: Patient stated he is taking 1000 mcg instead of 2000 mcg cholecalciferol (vitamin D3) [Vitamin D3] 25 mcg (1,000 unit) Capsule 25 mcg PO DAILY aspirin [Adult Aspirin Regimen] 81 mg tablet,delayed release (DR/EC) 81 mg PO DAILY baclofen 10 mg tablet 10 mg PO Q12H Changed pantoprazole [Protonix] 40 mg tablet,delayed release (DR/EC) 40 mg PO Q12H Qty: 60 0RF Discontinued famotidine 20 mg Tablet 20 mg PO Q12HR Qty: 60 0RF Date of admission: 09/18/25 13:22 Primary Care Provider: Celine,Nuris Admitting Provider: Geno Ravi Attending physician on admission: Angelito,Barb M.J. Condition: Improved Quality VTE Prophylaxis VTE prophylaxis: mechanical ordered - Patient's previous records reviewed on admission -ER notes reviewed in detail on admission -discussed all findings and current treatment plan with patient/Family/POA -Consultations reviewed for recommendations -Patient's disposition for safe discharge discussed with director of casework department -radiology imaging, EKG and test results I have personally reviewed and interpreted unless otherwise specified Dictation performed by [employer] direct speech recognition software, therefore engineering patternmaker variants and typographical errors may occur. Hospitalist MIPS Heart Failure (Exclusion) Patient has history of Heart Transplant or Left Ventricular Assistive Device?: No IF YES, STOP HERE Heart Failure (Qualifier) Patient has current or prior documentation of LVEF less than or equal to 40%, or mod/servere depressed LVSF?: No IF NO, STOP HERE
[2025-09-19] MEDS: HALOPERIDOL LACTATE 5 MG/ML VIAL IV PUSH (16:08)
== END 2025-09-19 16:58 | disposition home or self-care (01) ==
LOC: ANHED 13:27 → ANHIMU 15:45
PROVIDERS: Student in an Organized Health Care Education/Training Program; Admitting Provider General Practice; Emergency Provider Emergency Medicine; PCP Physician Assistant; Visit Provider Nurse Practitioner Family
DX: K92.2 Gastrointestinal hemorrhage, unspecified (principal); K22.10 Ulcer of esophagus without bleeding; K92.0 Hematemesis; K44.9 Diaphragmatic hernia without obstruction or gangrene; D64.9 Anemia, unspecified; E87.1 Hypo-osmolality and hyponatremia; J18.9 Pneumonia, unspecified organism; J44.89 Other specified chronic obstructive pulmonary disease; R63.1 Polydipsia; F54 Psychological and behavioral factors associated with disorders or diseases classified elsewhere; R06.6 Hiccough; I10 Essential (primary) hypertension; E78.5 Hyperlipidemia, unspecified; H40.9 Unspecified glaucoma; H54.8 Legal blindness, as defined in USA; M87.852 Other osteonecrosis, left femur; M87.851 Other osteonecrosis, right femur; Z20.822 Contact with and (suspected) exposure to COVID-19; Z87.891 Personal history of nicotine dependence; Z97.4 Presence of external hearing-aid; Z79.82 Long term (current) use of aspirin; Z79.51 Long term (current) use of inhaled steroids
CPT/HCPCS: 36415; 71046; 71260; 74177; 80048; 80053; 83605; 85014; 85018; 85025; 85610; 85730; 86850; 86900; 86901; 87040; 87637; 93005; 94640; 96361; 96365; 96366; 96367; 96368; 96375; 96376; 99285; A9270; G0378; J0456; J0696; J1630; J2470; J7050; J7070; J7120; Q9967